=== PATIENT | female | born 1975 | race Caucasian/White ===

== ENCOUNTER 2023-05-24 10:01 | Emergency (ER) | payer OTHER, MEDICAID, SELFPAY ==
[2023-05-24 10:07] VITALS: BP 109/70; PULSE 78; RESP 16; TEMP 36.8; O2SAT 99; BMI 23.3
--- NOTE | 2023-05-24 10:27 | XR_ITS ---
The [address] [address] Patient Name: ZIGGY SANCHEZ MRN: [id number] date: 1975 Sex: F Assigned Patient Location: ER Current Patient Location: Accession/Order Number: [id number] Exam Date: 05/24/2023 10:37 Report Date: 05/24/2023 11:50 At the request of: MIKEY DAVID Procedure: XR foot RT min 3V EXAM: XR foot RT min 3V HISTORY: no trauma, attention hallux COMPARISON: None. TECHNIQUE: AP, oblique and lateral views of the right foot performed. FINDINGS: The bony alignment and mineralization are normal. There is no fracture. There is no osseous destruction or periostitis. The joint spaces are normal. There is no soft tissue abnormality. XR/XR foot RT min 3V IMPRESSION: Unremarkable right foot series. Electronically authenticated by: KAE REAVES Date: 05/24/2023 11:50
--- NOTE | 2023-05-24 10:27 | ED_ITS ---
HPI - General Adult General Chief complaint: Extremity Injury, Lower Stated complaint: LOWER EXTREMITY PAIN RIGHT BIG TOE Time Seen by Provider: 05/24/23 10:24 Source: patient Mode of arrival: walk-in History of Present Illness HPI narrative: 47-year-old female presents to Emergency Department for pain in the right great toe. There has been no trauma. She's been having some issues with this toe and was on a topical antifungal. About two months ago she was on an oral antibiotic. Within the last day or two the pain seems to have gotten worse but there was no injury. The other toes don't hurt and the pain is severe. Related Data Previous Rx's Medication Instructions Recorded acetaminophen 300 mg-codeine 30 mg 1 tab PO Q6H PRN pain #20 tabs 05/24/23 tablet cephalexin 500 mg capsule 500 mg PO QID 10 days #40 caps 05/24/23 Allergies Allergy/AdvReac Type Severity Reaction Status Date / Time aspirin Allergy Severe Verified 05/24/23 10:14 haloperidol [From Haldol] Allergy Severe Verified 05/24/23 10:14 hydroxyzine [From Vistaril] Allergy Severe Verified 05/24/23 10:14 ketorolac [From Toradol] Allergy Severe Verified 05/24/23 10:14 magnesium sulfate Allergy Severe Verified 05/24/23 10:14 naproxen [From Anaprox] Allergy Severe Verified 05/24/23 10:14 Review of Systems ROS Narrative A ten point review of systems is negative except as noted above. Exam Narrative Exam Narrative: Nurses note and vital signs reviewed and patient is not hypoxic. General: The patient appears in no apparent distress. Skin: Warm, dry, no pallor noted. There is no rash noted. Head: Normocephalic, atraumatic Eye: Normal conjunctiva, no drainage Ears, Nose, Mouth, and Throat: oral mucosa is moist. Nares patent. Cardiovascular: Regular Rate and Rhythm Respiratory: Patient is in no distress, no accessory muscle use, lungs are clear to auscultation, no wheezing, rales or rhonchi Back: non-tender GI: nontender Musculoskeletal: the right foot is examined. The hallux has some mild erythema distally but no paronychia present. No felon present. No open areas or drainage. Other toes are nonerythematous and nonswollen. Neurological: A&O, normal speech Psychiatric: Cooperative Constitutional Vital Signs, click to edit/add: Last Vital Signs Temp 98.2 F 05/24/23 10:07 Pulse 78 05/24/23 10:07 Resp 16 05/24/23 10:07 BP 109/70 05/24/23 10:07 Pulse Ox 99 05/24/23 10:07 O2 Del Method Room Air 05/24/23 10:07 Course Vital Signs Vital signs: Vital Signs Temperature 98.2 F 05/24/23 10:07 Pulse Rate 78 05/24/23 10:07 Respiratory Rate 16 05/24/23 10:07 Blood Pressure 109/70 05/24/23 10:07 Pulse Oximetry 99 05/24/23 10:07 Oxygen Delivery Method Room Air 05/24/23 10:07 Temperature 98.2 F 05/24/23 10:07 Pulse Rate 78 05/24/23 10:07 Respiratory Rate 16 05/24/23 10:07 Blood Pressure 109/70 05/24/23 10:07 Pulse Oximetry 99 05/24/23 10:07 Oxygen Delivery Method Room Air 05/24/23 10:07 Medical Decision Making MDM Narrative Medical decision making narrative: x-ray my interpretation shows no acute findings. She provided pain medication and antibiotic. She has a podiatry appointment in two days and she will keep that appointment. Treatment diagnosis and follow-up were discussed with the patient. Differential Diagnosis Differential Diagnosis: felon, paronychia, cellulitis Imaging Data foot: Attestation: I personally reviewed and interpreted this imaging study as follows: (x-ray of the foot on my interpretation shows no acute findings) Discharge Plan Discharge Chief Complaint: Extremity Injury, Lower Clinical Impression: Great toe pain Patient Disposition: Home, Self-Care Time of Disposition Decision: 11:26 Condition: Good Mode of Transportation: Private Vehicle Prescriptions / Home Meds: New acetaminophen-codeine 300-30 mg tablet 1 tab PO Q6H PRN (Reason: pain) Qty: 20 0RF cephalexin 500 mg capsule 500 mg PO QID 10 Days Qty: 40 0RF Instructions: Arthralgia (ED), Swollen Joint (ED) Additional Instructions: see your mortgage loan assistant at your appointment in two days Stand Alone Forms: Portal Instructions Referrals: [facility] [Primary Care Provider] - 1 week
--- OUTSIDE RECORDS SUMMARY | 2023-06-29 19:02 | XMS_ITS | CCD ---
Author Name Unknown Address [address] [place] [address] Organization [facility] Care Team Providers Care Indirect Sales Representative Name Role Phone Cande Hinds Primary Care Physician Bree Jimenes Unavailable Unavailable [facility] Primary Care Provider ZANE Ruiz Attending Pr ovider [facility] Primary Care Provider [phone] ZANE Ruiz Attending Pr ovider ZANE Ruiz Attending Pr ovider [facility] Primary Care Provider MD Salvador Maier Jr Emergency Provider ZANE Ruiz Attending Pr ovider NON STAFF Primary Care Provider Unavailprovidence [facility] Primary Care Provider [phone] MD Salvador Maier Jr Emergency Provider [facility] Primary Care Unavaila sindhu ROSE ., DR RICH Admitting Unavailable ROSE ., DR RICH Attending Unavailable ROSE ., DR RICH Consulting Unavailable [facility] Primary Care Unavailnick ANGELA, DR ADDY Arrington Admitting Unavailable COREEN, DR ADDY Arrington Attending Unavailable ROSALIA ARROYO Consulting Unavailable [facility] Primary Care Unavaila MU Bose Admitting Unavailable MU SHERWOOD Attending Dom BENITEZ, DR MILE Pedersen Consulting Unavailable PAY ., DR ARGUETA Consulting Unavailable MU SHERWOOD Consulting Unavailable LUDIN ANGELES Consulting Unavailable [facility] Primary Care Unavailnick ANGELA, DR ADDY Arrington Admitting Unavailable COREEN, DR ADDY Arrington Attending Unavailable COREEN, DR ADDY Arrington Consulting Unavailable IRENE VENTURA Consulting Unavailable [facility] Care Unavaila ble MARKER ., DR GARCIA Admitting Unavailable MARKER ., DR GARCIA Attending Unavailable MARKER ., DR GARCIA Consulting Unavailable [facility] Care Unavaila ble SHAWNA ., TREVOR Admitting Unavailable SHAWNA ., TREVOR Attending Unavailable SHAWNA ., TREVOR Consulting Unavailable [facility] Care Unavaila ble SHAWNA ., TREVOR Admitting Unavailable SHAWNA ., TREVOR Attending Unavailable AYE ., CARISSA CAMP Consulting UnavailKAE Pelaez Consulting Unavailable Ramiro, ZANE Lerma Attending Pr ovider Adam ERICKSON Attending Unavailable DRE, Adam Arrington Attending Unavailable RUFINA RUIZ Referring Unavailable ANAID TREADWELL Attending Unavailab le Ramiro, ZANE Lerma Attending Pr ovider DAMIAN JOVEL Attending Unavailable Ramiro, Rufina Lerma Attending U navailable Ruiz, Rufina Lerma Admitting U navailable Ruiz, Rufina Lerma Attending U navailable Uriz, Rufina Lerma Admitting U navailable Ruiz, Rufina Lerma Admitting U navailable Ruiz, Rufina Lerma Attending U [facility] Primary [facility] Unavaila ble Salvador Maier Jr Admitting Unavailable Salvador Maier Jr Attending Unavailable Ramiro, Rufina Lerma Admitting U navailable Ruiz, Rufina Lerma Attending U navailable Ruiz, Rufina Lerma Admitting U navailable Ruiz, Rufina Lerma [facility]ending [facility] Primary Care Unavailable Ramiro, Rufina Lerma Admitting U navailable Ruiz, Rufina Lerma [facility]ending [facility] Admitting Unavailable Damian Jovel Attending Unavailable ZANE Ruiz Attending Pr ovider MORGAN Jovel Attending Provider [phone] Allergies Allergy Classification Reported Allergen(s) Allergy Type Date of Onset Reaction(s) Facility (11 sources) Aspirin; Translations: [aspirin] Drug Allergy 12-17-19 21 vomiting, Nausea [facility] (11 sources) Haloperidol; Translations: [haloperidol] Drug Allergy 12-17-19 jaw locked sideways, Anaphylaxis [facility] (11 sources) hydrOXYzine; Translations: [hydroxyzine] Drug Allergy 12-17-19 21 rash, vomiting, [facility] (3 sources) Ketorolac; Translations: [ketorolac] Drug Allergy migraines [facility] (11 sources) Magnesium Sulfate; Translations: [magnesium sulfate] Drug Allergy 12-17-19 21 vomiting [facility] (11 sources) metroNIDAZOLE; Translations: [metronidazole] Drug Allergy 12-17-19 21 vomiting, Hives [facility] (11 sources) Naproxen; Translations: [naproxen] Drug Allergy 12-17-19 21 vomiting, Rash [facility] (3 sources) NSAIDs; Translations: [NSAIDs] Drug allergy vomiting [facility] (3 sources) Sulfamethoxazole / Trimethoprim; Translations: [sulfamethoxazole-tr imethoprim] Drug Allergy vomiting [facility] (9 sources) Sulfamethoxazole; Translations: [sulfamethoxazole] Drug Allergy 12-17-19 21 [facility] (9 sources) Trimethoprim; Translations: [trimethoprim] Drug Allergy 12-17-19 21 [facility] (9 sources) NSAIDS (Non-Steroidal Anti-Inflamma; Translations: [NSAIDS (Non-Steroidal Anti-Inflamma] Allergy to substance 12-17-19 21 [facility] (1 source) Aspirin Drug Allergy 10-08-19 15 [facility] (1 source) Haloperidol Drug Allergy 10-08-19 15 [facility] (1 source) hydrOXYzine Drug Allergy 09-14-19 16 [facility] (1 source) Iothalamate Drug Allergy 09-16-19 16 [facility] (1 source) Ketorolac Drug Allergy 09-14-19 16 [facility] (1 source) Magnesium Sulfate Drug Allergy 10-08-19 15 [facility] (1 source) metroNIDAZOLE Drug Allergy 10-08-19 15 [facility] (1 source) Naproxen Drug Allergy 10-08-19 15 [facility] (1 source) NSAIDs Drug allergy (disorder) 10-08-19 15 [facility] (1 source) Sulfonamides (Antibiotic) Drug allergy (disorder) 10-08-19 15 [facility] (1 source) Aspirin Drug Allergy 07-22-19 [facility] (1 source) Haloperidol Drug Allergy 07-22-19 [facility] (1 source) hydrOXYzine Drug Allergy 07-22-19 [facility] (1 source) Magnesium Sulfate Drug Allergy 07-22-19 [facility] (1 source) metroNIDAZOLE Drug Allergy 07-22-19 [facility] (1 source) Naproxen Drug Allergy 07-22-19 [facility] Medications Current Medications Medication Drug Class(es) Dates Sig (Normalized) Sig (Original) acetaminophen 325 mg / oxyCODONE hydrochloride 5 mg oral tablet (6 sources) Opioid Agonist Start: 07-22-2022 take 1 tablet by mouth every six hours Oxycodone-Acetami nophen (Percocet) 5-325 mg tablet Active 1 - 2 TAB PO Every 6 hours 15 3 July 22, 2022 Start: 05-30-2021 Percocet 325 m g-5 mg Tab See Instructions, as needed for pain, 50 tab(s), Refill(s) 0, 1-2 tab(s) Oral q4hr, [facility], 156, cm, 05/21/21 5:13:00 EST, Height/Length Dosing, 57.1, kg, 05/21/21 5:13:00 EST, Weight Dosing Start Date: 05/30/21 Status: Ordered albuterol 0.83 mg/ml inhalation solution (7 sources) beta2-Adrenergic Agonist Start: 07-22-2022 take 1 mg by inhalation once daily Albuterol Sulfate Active 1 MG INHALATION Daily July 22, 2022 12:00am Start: 05-20-2021 take 2.5 mg by inhal ation twice daily albuterol 0.083% Inh Ana Lilia 3 mL 2.5 mg, 3 mL, NEB, BID, Refill(s) 0, Other (see comment) Start Date: 05/20/21 Status: Ordered Start: 05-20-2021 take 2.5 mg by inhal ation twice daily albuterol 0.083% Inh Ana Lilia 3 mL 2.5 mg, 3 mL, NEB, BID, Refill(s) 0, Other (see comment) Start Date: 05/20/21 Status: Ordered albuterol CFC free 90 mcg/inh inhalation aerosol (1 source) Start: 05-20-2021 take 2 puff(s) by inhalation every four hours albuterol CFC free 90 mcg/inh inhalation aerosol = 2 puff(s), Inhalation, q4hr, Refills(s) 0, COPD Start Date: 05/20/21 Status: Ordered docusate sodium 100 mg oral capsule (1 source) Start: 05-30-2021 take 1 capsule by mouth twice daily as needed for constipation Colace 100 mg Cap 100 mg = 1 cap(s), Oral, BID, PRN for constipation, # 20 cap(s), Refills(s) 0, Pharmacy: [facility]58, 156, cm, 05/21/21 5:13:00 EST, Height/Length Dosing, 57.1, kg, 05/21/21 5:13:00 EST, Weight Dosing Start Date: 05/30/21 Status: Ordered FLUoxetine 40 mg oral capsule (2 sources) Serotonin Reuptake Inhibitor Start: 05-20-2021 take 1 capsule by mouth once daily FLUoxetine 40 mg Cap 40 mg = 1 cap(s), Oral, Daily, Refills(s) 0, Anxiety Start Date: 05/20/21 Status: Ordered fluticasone-salmete rol 250 mcg-50 mcg Inh Pwdr (1 source) Start: 05-20-2021 take 1 dose by inhalation every twelve hours fluticasone-salm eterol 250 mcg-50 mcg Inh Pwdr 1 vial, Inhalation, q12hr, Refill(s) 0, COPD Start Date: 05/20/21 Status: Ordered OLANZapine 10 mg oral tablet (7 sources) Atypical Antipsychotic Start: 05-20-2021 take 10 mg by mouth once daily Olanzapine Active 10 MG PO Daily July 22, 2022 12:00am omeprazole 20 mg delayed release oral capsule (5 sources) Proton Pump Inhibitor Start: 07-22-2022 take 20 mg by mouth once daily Omeprazole Active 20 MG PO Daily July 22, 2022 12:00am ondansetron 4 mg disintegrating oral tablet (5 sources) Serotonin-3 Receptor Antagonist Start: 07-22-2022 take 4 mg by mouth every eight hours Ondansetron Active 4 MG PO Q8H July 22, 2022 12:00am oxyCODONE hydrochloride 5 mg oral capsule (1 source) Opioid Agonist Start: 06-08-2021 oxyCODONE 5 mg Cap 5 mg = 1 cap(s), Oral, q6hr, PRN Pain 8-10, # 4 cap(s), Refills(s) 0, Pharmacy: [facility] 858, 155, cm, 06/08/21 8:15:00 EST, Height/Length Dosing, 60, kg, 06/08/21 8:15:00 EST, Weight Dosing Start Date: 06/08/21 Status: Ordered rOPINIRole 0.5 mg oral tablet (7 sources) Nonergot Dopamine Agonist Start: 07-22-2022 take 0.5 mg by mouth once daily Ropinirole Active 0.5 MG PO Daily July 22, 2022 12:00am Start: 05-20-2021 take 1 tablet by marielena th once daily ropinirole 0.25 mg Tab 0.25 mg = 1 tab(s), Oral, Daily, Refills(s) 0, Other (see comment) Start Date: 05/20/21 Status: Ordered tiZANidine 2 mg oral tablet (5 sources) Central alpha-2 Adrenergic Agonist Start: 07-22-2022 take 2 mg by mouth once daily Tizanidine Active 2 MG PO Daily July 22, 2022 12:00am Vitamin B-12 1000 mcg oral tablet (1 source) Start: 10-27-2022 Vitamin B-12 1 000 mcg oral tablet Refills(s) 0 Start Date: 10/27/22 Status: Ordered Completed/Discontinued Medications Medication Drug Class(es) Dates Sig (Normalized) Sig (Original) ciprofloxacin 500 mg oral tablet (7 sources) Quinolone Antimicrobial Start: 10-27-2022 take 1 tablet by mouth once daily Cipro 500 mg Tab 500 mg = 1 tab(s), Oral, Daily, Take 1 tablet the day before the procedure and 1 tablet after the procedure, # 2 tab(s), Refills(s) 0, Pharmacy: [facility] [id number], 156, cm, 10/27/22 14:36:00 EDT, Height/Length Dosing, 62, kg, 10/27/22 14:36:00... Start Date: 11/27/22 Status: Ordered Start: 07-22-2022 take 250 mg by mouth once daily Ciprofloxacin Hcl Active 250 MG PO Daily July 22, 2022 12:00am Problems Active Problems Problem Classification Problem Date Documented Da te Episodic/Chronic Allergic reactions (4 sources) Allergy, unspecified, initial encounter; Translations: [ALLERGY UNSPECIFIED INITIAL ENCNTR] Onset: 10-04-2022 Episodic Anxiety disorders (12 sources) Anxiety; Translations: [Anxiety disorder, unspecified] Onset: 07-20-2022 12-28-2013 Chronic Asthma (1 source) Unspecified asthma, uncomplicated; Translations: [UNSPECIFIED ASTHMA UNCOMPLICATED] Onset: 11-24-2021 Chronic Calculus of urinary tract (1 source) History of calculus of kidney 10-27-2022 Episodic Chronic obstructive pulmonary disease and bronchiectasis (1 source) Chronic obstructive lung disease 09-30-2022 Chronic Gastritis and duodenitis (1 source) Gastritis, unspecified, without bleeding; Translations: [GASTRITIS UNS WITHOUT BLEEDING] Onset: 07-23-2022 Episodic Headache; including migraine (6 sources) Migraine without aura, not refractory ; Translations: [Migraine, unspecified, not intractable, without status migrainosus] Onset: 11-06-2021 06-22-2015 Chronic Headache; including migraine (2 sources) Headache 05-20-2021 Episodic Mood disorders (5 sources) Depression; Translations: [Bipolar disorder, unspecified] Onset: 10-05-2022 09-22-2013 Chronic Nausea and vomiting (5 sources) Nausea; Translations: [Nausea with vomiting, unspecified] Onset: 06-24-2022 Episodic Nonspecific chest pain (8 sources) Atypical chest pain; Translations: [Other chest pain] 05-29-2019 Episodic Nutritional deficiencies (1 source) Deficiency of other specified B group vitamins; Translations: [Deficiency of other specified B group vitamins] Onset: 03-19-2023 Episodic Other aftercare (1 source) Other fdc (current) drug therapy; Translations: [OTH FPC CURRENT DRUG THERAPY] Onset: 07-23-2022 Episodic Other connective tissue disease (2 sources) Impingement syndrome of shoulder region 05-20-2021 Episodic Other hereditary and degenerative nervous system conditions (1 source) Restless legs syndrome; Translations: [Restless legs syndrome] Onset: 03-19-2023 Chronic Other non-traumatic joint disorders (1 source) Pain of right shoulder joint; Translations: [Pain in right shoulder] Onset: 11-24-2021 Episodic Other non-traumatic joint disorders (8 sources) Chronic pain of right upper limb; Translations: [Pain in right shoulder] 12-16-2020 Episodic Other skin disorders (1 source) Ingrowing nail; Translations: [Ingrowing nail] Onset: 05-26-2023 Episodic Residual codes; unclassified (1 source) Acquired absence of both cervix and uterus; Translations: [ACQUIRED ABSENCE BOTH CERVIX AND UTERUS] Onset: 10-05-2022 Episodic Residual codes; unclassified (1 source) Tobacco use; Translations: [Tobacco use] Onset: 03-19-2023 Episodic Substance-related disorders (3 sources) Smoker; Translations: [Nicotine dependence, cigarettes, uncomplicated] Onset: 06-26-2022 04-23-2014 Chronic Comment on above: Added secondary to d ocumentation in Social History. Unclassified (1 source) CONTACT W/AND (SUSP) EXPOS COVID-19; Translations: [CONTACT W/AND (SUSP) EXPOS COVID-19] Onset: 06-26-2022 Urinary tract infections (2 sources) Acute cystitis; Translations: [Recurrent urinary tract infection] 10-05-2022 Episodic Past or Other Problems Problem Classification Problem Date Documented Da te Episodic/Chronic Abdominal pain (13 sources) Epigastric pain; Translations: [Epigastric pain] Onset: 2 07-22-2022 Episodic Biliary tract disease (1 source) Calculus of bile duct without cholangitis or cholecystitis without obstruction; Translations: [CALC BD NO CHOLANG/CHOLCYST NO OBST] Onset: 2 Episodic Deficiency and other anemia (1 source) Vitamin B12 deficiency anemia, unspecified; Translations: [Vitamin B12 deficiency anemia, unspecified] Onset: 3 Episodic E Codes: Natural/environment (1 source) Overexertion from prolonged static or awkward postures, initial encounter; Translations: [OVEREXERT PROLNG STAT/AWK PST INIT] Onset: 2 Episodic Genitourinary symptoms and ill-defined conditions (2 sources) Hematuria, unspecified; Translations: [Hematuria, unspecified] Onset: 2 Episodic Joint disorders and dislocations; trauma-related (1 source) Unspecified dislocation of right acromioclavicular joint, initial encounter; Translations: [UNS DISLOCATION RT AC JNT INITIAL] Onset: 2 Episodic Other diseases of kidney and ureters (1 source) Cyst of kidney, acquired; Translations: [CYST OF KIDNEY ACQUIRED] Onset: 2 Episodic Other gastrointestinal disorders (1 source) Personal history of other diseases of the digestive system; Translations: [Personal history of other diseases of the digestive system] Onset: 3 Episodic Other non-traumatic joint disorders (3 sources) Pain in right shoulder; Translations: [PAIN IN RIGHT SHOULDER] Onset: 2 Episodic Residual codes; unclassified (1 source) Other specified postprocedural states; Translations: [OTH SPECIFIED POSTPROCEDURAL STATES] Onset: 2 Episodic Skin and subcutaneous tissue infections (4 sources) Cutaneous abscess of right lower limb; Translations: [CUTANEOUS ABSCESS RIGHT LOWER LIMB] Onset: 2 Episodic Viral infection (1 source) Viral infection, unspecified; Translations: [VIRAL INFECTION UNSPECIFIED] Onset: 2 Episodic Results Test Name Value Interpretation Reference Range Facil ity Superficial Wound Cultureon 05-26-2023 Superficial Wound Culture Ingrowing nail Light Normal Skin Kacey 2 Days PERFORMED BY: [place] [id number] PATHOLOGIST PASSENGER RATE CLERK MARINE WARD M.D. Normal [facility] Comment on above: Performed By: #### C USUP #### [address] Alanine aminotransferase [En zymatic activity/volume] in Serum or PlasmaOrdered By: Rufina Ruiz on 03-19-2023 ALT [Catalytic activity/Vol] 7 U/L [facility] Albumin [Mass/volume] in Ser um or Plasma by Bromocresol green (BCG) dye binding methoOrdered By: Rufina Ruiz on 03-19-2023 Albumin BCG dye [Mass/Vol] 4.3 g/dL 3.5-5.7 [facility] Alkaline phosphatase [Enzyma tic activity/volume] in Serum or PlasmaOrdered By: Rufina Ruiz on 03-19-2023 ALP [Catalytic activity/Vol] 100 U/L 34-104 [facility] Aspartate aminotransferase [ Enzymatic activity/volume] in Serum or PlasmaOrdered By: Rufina Ruiz on 03-19-2023 AST [Catalytic activity/Vol] 10 U/L 13-39 [facility] Basophils Auto (Bld) [#/Vol] Ordered By: Rufina Ruiz on 03-19-2023 Basophils (Bld) [#/Vol] 0.0 10*3/uL 0.0-0.2 [facility] Basophils/100 WBC Auto (Bld) Ordered By: Rufina Ruiz on 03-19-2023 Basophils/100 WBC (Bld) 0.4 % . [facility] Bilirubin.total [Mass/volume ] in Serum or PlasmaOrdered By: Rufina Ruiz on 03-19-2023 Bilirubin [Mass/Vol] 0.3 mg/dL 0.3-1.0 [facility] Calcium [Mass/volume] in Ser um or PlasmaOrdered By: Rufina Ruiz on 03-19-2023 Calcium [Mass/Vol] 9.6 mg/dL 8.6-10.3 [facility] Carbon dioxide, total [Moles /volume] in Serum or PlasmaOrdered By: Rufina Ruiz on 03-19-2023 CO2 [Moles/Vol] 29.4 mmol/L 21.0-31.0 [facility] Chloride [Moles/volume] in S siddhartha or PlasmaOrdered By: Rufina Ruiz on 03-19-2023 Chloride [Moles/Vol] 108 mmol/L 98-107 [facility] Cholesterol [Mass/volume] in Serum or PlasmaOrdered By: Rufina Ruiz on 03-19-2023 Cholesterol [Mass/Vol] 164 mg/dL 140-200 [facility] Comment on above: Chol less than 200 m g/dl low riskChol 201-239 mg/dl borderline riskChol 240 mg/dl and greater high risk Cholesterol in LDL Calc [Mas s/Vol]Ordered By: Rufina Ruiz on 03-19-2023 Cholesterol in LDL [Mass/Vol] 84 mg/dL 0-100 [facility] Comment on above: LDL ATP III CLASSIFI CATIONLDL less than 100 mg/dL OptimalLDL 100-129 mg/dL Near or above optimalLDL 130-159 mg/dL Borderline highLDL 160-189 mg/dL HighLDL greater than 189 mg/dL Very high Cholesterol in VLDL Calc [Ma ss/Vol]Ordered By: Rufina Ruiz on 03-19-2023 Cholesterol in VLDL [Mass/Vol] 19 mg/dL [facility] Complete Blood Count Auto Di ffon 03-19-2023 Basophils (Bld) [#/Vol] 0.0 10*3/uL Normal 0.0-0.2 [facility] Comment on above: Order Comment: Reaso n for Exam Bipolar disorder Result Comment: PERF ORMED BY: [place] [address] PATHOLOGIST PASSENGER RATE CLERK MARINE WARD M.D. Performed By: #### C BC, CMP, FE and TIBC, ALOK, LIPID, [id number], THYROID SC #### [facility] [address] [place] [address] Basophils/100 WBC (Bld) 0.4 % Normal . [facility] Comment on above: Order Comment: Reaso n for Exam Bipolar disorder Performed By: #### C BC, CMP, FE and TIBC, ALOK, LIPID, [id number], THYROID SC #### [facility] [address] [place] [address] [place] Eosinophils (Bld) [#/Vol] 0.1 10*3/uL Normal 0.0-0.45 [facility] Comment on above: Order Comment: Reaso n for Exam Bipolar disorder Performed By: #### C BC, CMP, FE and TIBC, ALOK, LIPID, [id number], THYROID SC #### [facility] [address] [place] [address] [place] Eosinophils/100 WBC (Bld) 1.5 % Normal . [facility] Comment on above: Order Comment: Reaso n for Exam Bipolar disorder Performed By: #### C BC, CMP, FE and TIBC, ALOK, LIPID, [id number], THYROID SC #### [address] Erythrocyte distribution wid th (RBC) [Ratio] 13.7 % Normal 11.9-15.3 [facility] Comment on above: Order Comment: Reaso n for Exam Bipolar disorder Performed By: #### C BC, CMP, FE and TIBC, ALOK, LIPID, [id number], THYROID SC #### [address] Hematocrit (Bld) [Volume fraction] 39.9 % Normal 34.0-46.4 [facility] Comment on above: Order Comment: Reaso n for Exam Bipolar disorder Performed By: #### C BC, CMP, FE and TIBC, ALOK, LIPID, [id number], THYROID SC #### [address] Hemoglobin (Bld) [Mass/Vol] 13.3 g/dL Normal 11.8-15. 4 [facility] Comment on above: Order Comment: Reaso n for Exam Bipolar disorder Performed By: #### C BC, CMP, FE and TIBC, ALOK, LIPID, [id number], THYROID SC #### [address] Lymphocytes (Bld) [#/Vol] 2.4 10*3/uL Normal 1.00-4.8 [facility] Comment on above: Order Comment: Reaso n for Exam Bipolar disorder Performed By: #### C BC, CMP, FE and TIBC, ALOK, LIPID, [id number], THYROID SC #### [address] Lymphocytes/100 WBC (Bld) 25.6 % Normal . [facility] Comment on above: Order Comment: Reaso n for Exam Bipolar disorder Performed By: #### C BC, CMP, FE and TIBC, ALOK, LIPID, [id number], THYROID SC #### [address] MCH (RBC) [Entitic mass] 30.3 pg Normal 24.7-34.3 [facility] Comment on above: Order Comment: Reaso n for Exam Bipolar disorder Performed By: #### C BC, CMP, FE and TIBC, ALOK, LIPID, [id number], THYROID SC #### [address] MCV (RBC) [Entitic vol] 91.1 fL Normal 80-100 [facility] Comment on above: Order Comment: Reaso n for Exam Bipolar disorder Performed By: #### C BC, CMP, FE and TIBC, ALOK, LIPID, [id number], THYROID SC #### [address] Mean Corpuscular HGB Conc 33.3 g/dL Normal 32.0-35.0 [facility] Comment on above: Order Comment: Reaso n for Exam Bipolar disorder Performed By: #### C BC, CMP, FE and TIBC, ALOK, LIPID, [id number], THYROID SC #### [address] Monocytes (Bld) [#/Vol] 0.7 10*3/uL Normal 0.0-0.8 [facility] Comment on above: Order Comment: Reaso n for Exam Bipolar disorder Performed By: #### C BC, CMP, FE and TIBC, ALOK, LIPID, [id number], THYROID SC #### [address] Monocytes/100 WBC (Bld) 7.1 % Normal . [facility] Comment on above: Order Comment: Reaso n for Exam Bipolar disorder Performed By: #### C BC, CMP, FE and TIBC, ALOK, LIPID, [id number], THYROID SC #### [address] Neutrophils (Bld) [#/Vol] 6.2 10*3/uL Normal 1.8-7.7 [facility] Comment on above: Order Comment: Reaso n for Exam Bipolar disorder Performed By: #### C BC, CMP, FE and TIBC, ALOK, LIPID, [id number], THYROID SC #### [facility] [address] Neutrophils/100 WBC (Bld) 65.4 % Normal . [facility] Comment on above: Order Comment: Reaso n for Exam Bipolar disorder Performed By: #### C BC, CMP, FE and TIBC, ALOK, LIPID, [id number], THYROID SC #### [facility] [address] NRBC% 0.2 /100{WBC} Normal 0-0.5 [facility] Comment on above: Order Comment: Reaso n for Exam Bipolar disorder Performed By: #### C BC, CMP, FE and TIBC, ALOK, LIPID, [id number], THYROID SC #### [facility] [address] Platelet mean volume (Bld) [Entitic vol] 10.4 fL Normal 6.3-10.7 [facility] Comment on above: Order Comment: Reaso n for Exam Bipolar disorder Performed By: #### C BC, CMP, FE and TIBC, ALOK, LIPID, [id number], THYROID SC #### [facility] [address] [place] [address] [place] Platelets (Bld) [#/Vol] 179 10*3/uL Normal 150-450 [facility] Comment on above: Order Comment: Reaso n for Exam Bipolar disorder Performed By: #### C BC, CMP, FE and TIBC, ALOK, LIPID, [id number], THYROID SC #### [facility] [address] RBC (Bld) [#/Vol] 4.38 10*6/uL Normal 3.60-5.00 [facility] Comment on above: Order Comment: Reaso n for Exam Bipolar disorder Performed By: #### C BC, CMP, FE and TIBC, ALOK, LIPID, [id number], THYROID SC #### [facility] [address] WBC (Bld) [#/Vol] 9.6 10*3/uL Normal 3.8-11.6 [facility] Comment on above: Order Comment: Reaso n for Exam Bipolar disorder Performed By: #### C BC, CMP, FE and TIBC, ALOK, LIPID, [id number], THYROID SC #### [facility] [address] Comprehensive Metabolic Pane louise 03-19-2023 Albumin [Mass/Vol] 4.3 g/dL Normal 3.5-5.7 [facility] Comment on above: Order Comment: Reaso n for Exam Bipolar disorder Reason for Exam Restless leg syndrome Reason for Exam Tobacco use;Bipolar disorder Reason for Exam Vitamin B 12 deficiency Performed By: #### C BC, CMP, FE and TIBC, ALOK, LIPID, [id number], THYROID SC #### [facility] [address] Albumin/Globulin [Mass ratio] 2.0 {ratio} Normal [facility] Comment on above: Order Comment: Reaso n for Exam Bipolar disorder Reason for Exam Restless leg syndrome Reason for Exam Tobacco use;Bipolar disorder Reason for Exam Vitamin B 12 deficiency Performed By: #### C BC, CMP, FE and TIBC, ALOK, LIPID, [id number], THYROID SC #### [facility] [address] ALP [Catalytic activity/Vol] 100 U/L Normal 34-104 [facility] Comment on above: Order Comment: Reaso n for Exam Bipolar disorder Reason for Exam Restless leg syndrome Reason for Exam Tobacco use;Bipolar disorder Reason for Exam Vitamin B 12 deficiency Performed By: #### C BC, CMP, FE and TIBC, ALOK, LIPID, [id number], THYROID SC #### [facility] [address] ALT [Catalytic activity/Vol] 7 U/L Normal 7-52 [facility] Comment on above: Order Comment: Reaso n for Exam Bipolar disorder Reason for Exam Restless leg syndrome Reason for Exam Tobacco use;Bipolar disorder Reason for Exam Vitamin B 12 deficiency Performed By: #### C BC, CMP, FE and TIBC, ALOK, LIPID, [id number], THYROID SC #### [facility] [address] Anion gap [Moles/Vol] 6.2 mmol/L Normal 6.0-15.0 [facility] Comment on above: Order Comment: Reaso n for Exam Bipolar disorder Reason for Exam Restless leg syndrome Reason for Exam Tobacco use;Bipolar disorder Reason for Exam Vitamin B 12 deficiency Performed By: #### C BC, CMP, FE and TIBC, ALOK, LIPID, [id number], THYROID SC #### [facility] [address] AST [Catalytic activity/Vol] 10 U/L Low 13-39 [facility] Comment on above: Order Comment: Reaso n for Exam Bipolar disorder Reason for Exam Restless leg syndrome Reason for Exam Tobacco use;Bipolar disorder Reason for Exam Vitamin B 12 deficiency Performed By: #### C BC, CMP, FE and TIBC, ALOK, LIPID, [id number], THYROID SC #### [facility] [address] Bilirubin [Mass/Vol] 0.3 mg/dL Normal 0.3-1.0 [facility] Comment on above: Order Comment: Reaso n for Exam Bipolar disorder Reason for Exam Restless leg syndrome Reason for Exam Tobacco use;Bipolar disorder Reason for Exam Vitamin B 12 deficiency Performed By: #### C BC, CMP, FE and TIBC, ALOK, LIPID, [id number], THYROID SC #### [facility] [address] Calcium [Mass/Vol] 9.6 mg/dL Normal 8.6-10.3 [facility] Comment on above: Order Comment: Reaso n for Exam Bipolar disorder Reason for Exam Restless leg syndrome Reason for Exam Tobacco use;Bipolar disorder Reason for Exam Vitamin B 12 deficiency Performed By: #### C BC, CMP, FE and TIBC, ALOK, LIPID, [id number], THYROID SC #### [facility] [address] [place] [id number] [facility] Chloride [Moles/Vol] 108 mmol/L High 98-107 [facility] Comment on above: Order Comment: Reaso n for Exam Bipolar disorder Reason for Exam Restless leg syndrome Reason for Exam Tobacco use;Bipolar disorder Reason for Exam Vitamin B 12 deficiency Performed By: #### C BC, CMP, FE and TIBC, ALOK, LIPID, [id number], THYROID SC #### [facility] [address] [place] [id number] [facility] CO2 [Moles/Vol] 29.4 mmol/L Normal 21.0-31.0 [facility] Comment on above: Order Comment: Reaso n for Exam Bipolar disorder Reason for Exam Restless leg syndrome Reason for Exam Tobacco use;Bipolar disorder Reason for Exam Vitamin B 12 deficiency Performed By: #### C BC, CMP, FE and TIBC, ALOK, LIPID, [id number], THYROID SC #### [facility] [address] Creatinine [Mass/Vol] 0.74 mg/dL Normal 0.60-1.20 [facility] Comment on above: Order Comment: Reaso n for Exam Bipolar disorder Reason for Exam Restless leg syndrome Reason for Exam Tobacco use;Bipolar disorder Reason for Exam Vitamin B 12 deficiency Performed By: #### C BC, CMP, FE and TIBC, ALOK, LIPID, [id number], THYROID SC #### [facility] [address] GFR/1.73 sq M.predicted MDRD (S/P/Bld) [Vol rate/Area] mL/min/{1.73_m2} Normal [facility] Comment on above: Order Comment: Reaso n for Exam Bipolar disorder Reason for Exam Restless leg syndrome Reason for Exam Tobacco use;Bipolar disorder Reason for Exam Vitamin B 12 deficiency Performed By: #### C BC, CMP, FE and TIBC, ALOK, LIPID, [id number], THYROID SC #### [facility] [address] [place] [id number] [facility] Globulin (S) [Mass/Vol] 2.1 g/dL Normal [facility] Comment on above: Order Comment: Reaso n for Exam Bipolar disorder Reason for Exam Restless leg syndrome Reason for Exam Tobacco use;Bipolar disorder Reason for Exam Vitamin B 12 deficiency Performed By: #### C BC, CMP, FE and TIBC, ALOK, LIPID, [id number], THYROID SC #### [facility] [address] [place] [id number] [facility] Glucose [Mass/Vol] 94 mg/dL Normal 70-100 [facility] Comment on above: Order Comment: Reaso n for Exam Bipolar disorder Reason for Exam Restless leg syndrome Reason for Exam Tobacco use;Bipolar disorder Reason for Exam Vitamin B 12 deficiency Result Comment: [facility] Glucose Reference Range is dependent on time and content of last meal. Glucose of more than 200 mg/dL in a nonstressed, ambulatory subject supports the diagnosis of Diabetes Mellitus. ADA recommended reference range Performed By: #### C BC, CMP, FE and TIBC, ALOK, LIPID, [id number], THYROID SC #### [facility] [address] Potassium [Moles/Vol] 4.6 mmol/L Normal 3.5-5.1 [facility] Comment on above: Order Comment: Reaso n for Exam Bipolar disorder Reason for Exam Restless leg syndrome Reason for Exam Tobacco use;Bipolar disorder Reason for Exam Vitamin B 12 deficiency Performed By: #### C BC, CMP, FE and TIBC, ALOK, LIPID, [id number], THYROID SC #### [facility] [address] Protein [Mass/Vol] 6.4 g/dL Normal 6.4-8.9 [facility] Comment on above: Order Comment: Reaso n for Exam Bipolar disorder Reason for Exam Restless leg syndrome Reason for Exam Tobacco use;Bipolar disorder Reason for Exam Vitamin B 12 deficiency Performed By: #### C BC, CMP, FE and TIBC, ALOK, LIPID, [id number], THYROID SC #### [facility] [address] [place] [phone] [facility] Sodium [Moles/Vol] 139 mmol/L Normal 136-145 [facility] Comment on above: Order Comment: Reaso n for Exam Bipolar disorder Reason for Exam Restless leg syndrome Reason for Exam Tobacco use;Bipolar disorder Reason for Exam Vitamin B 12 deficiency Performed By: #### C BC, CMP, FE and TIBC, ALOK, LIPID, [id number], THYROID SC #### [facility] [address] Urea nitrogen [Mass/Vol] 7 mg/dL Normal 7-25 [facility] Comment on above: Order Comment: Reaso n for Exam Bipolar disorder Reason for Exam Restless leg syndrome Reason for Exam Tobacco use;Bipolar disorder Reason for Exam Vitamin B 12 deficiency Performed By: #### C BC, CMP, FE and TIBC, ALOK, LIPID, [id number], THYROID SC #### [facility] [address] Creatinine [Mass/volume] in Serum or PlasmaOrdered By: Rufina Ruiz on 03-19-2023 Creatinine [Mass/Vol] 0.74 mg/dL 0.60-1.20 [facility] Eosinophils Auto (Bld) [#/Vo l]Ordered By: Rufina Ruiz on 03-19-2023 Eosinophils (Bld) [#/Vol] 0.1 10*3/uL 0.0-0.45 [facility] Eosinophils/100 WBC Auto (Bl d)Ordered By: Rufina Ruiz on 03-19-2023 Eosinophils/100 WBC (Bld) 1.5 % . [facility] Erythrocyte distribution wid th Auto (RBC) [Ratio]Ordered By: Rufina Ruiz on 03-19-2023 Erythrocyte distribution wid th (RBC) [Ratio] 13.7 % 11.9-15.3 [facility] Ferritinon 03-19-2023 Ferritin [Mass/Vol] 58.3 ng/mL Normal 11.0-306.8 [facility] Comment on above: Order Comment: Reaso n for Exam Bipolar disorder Reason for Exam Restless leg syndrome Reason for Exam Tobacco use;Bipolar disorder Reason for Exam Vitamin B 12 deficiency Performed By: #### C BC, CMP, FE and TIBC, ALOK, LIPID, [id number], THYROID SC #### [facility] [address] [place] [address] [place] Ferritin [Mass/volume] in Se rum or PlasmaOrdered By: Rufina Ruiz on 03-19-2023 Ferritin [Mass/Vol] 58.3 ng/mL 11.0-306.8 [facility] Folate [Mass/volume] in Seru m or PlasmaOrdered By: Rufina Ruiz on 03-19-2023 Folate [Mass/Vol] 5.7 ng/mL >5.9 [facility] Comment on above: Folate reference ran ge: >5.9 ng/mlThe WHO technical consultation on folate and vitamin [id number] has determined that folate concentrations lessthan 4 ng/ml are considered deficient. Globulin Calc (S) [Mass/Vol] Ordered By: Rufina Ruiz on 03-19-2023 Globulin (S) [Mass/Vol] 2.1 g/dL [facility] Glucose [Mass/volume] in Ser um or PlasmaOrdered By: Rufina Ruiz on 03-19-2023 Glucose [Mass/Vol] 94 mg/dL 70-100 [facility] Comment on above: ADA recommended refe rence rangeRandom Glucose Reference Range is dependent on time and content of last meal. Glucose of more than 200 mg/dL in a nonstressed, ambulatory subject supports the diagnosis of Diabetes Mellitus. Hematocrit Auto (Bld) [Volum e fraction]Ordered By: Rufina Ruiz on 03-19-2023 Hematocrit (Bld) [Volume fraction] 39.9 % 3 4.0-46.4 [facility] Hemoglobin [Mass/volume] in BloodOrdered By: Rufina Ruiz on 03-19-2023 Hemoglobin (Bld) [Mass/Vol] 13.3 g/dL 11.8-15. 4 [facility] Iron [Mass/volume] in Serum or PlasmaOrdered By: Rufina Ruiz on 03-19-2023 Iron [Mass/Vol] 68 ug/dL 50-212 [facility] Iron and TIBC Profileon % Iron Saturation 22.3 % Normal 20-50 [facility] Comment on above: Order Comment: Reaso n for Exam Bipolar disorder Reason for Exam Restless leg syndrome Reason for Exam Tobacco use;Bipolar disorder Reason for Exam Vitamin B 12 deficiency Performed By: #### C BC, CMP, FE and TIBC, ALOK, LIPID, [id number], THYROID SC #### [facility] [address] Iron [Mass/Vol] 68 ug/dL Normal 50-212 [facility] Comment on above: Order Comment: Reaso n for Exam Bipolar disorder Reason for Exam Restless leg syndrome Reason for Exam Tobacco use;Bipolar disorder Reason for Exam Vitamin B 12 deficiency Performed By: #### C BC, CMP, FE and TIBC, ALOK, LIPID, [id number], THYROID SC #### [facility] [address] Total Iron Binding Capacity 305 ug/dL Normal 255-450 [facility] Comment on above: Order Comment: Reaso n for Exam Bipolar disorder Reason for Exam Restless leg syndrome Reason for Exam Tobacco use;Bipolar disorder Reason for Exam Vitamin B 12 deficiency Performed By: #### C BC, CMP, FE and TIBC, ALOK, LIPID, [id number], THYROID SC #### [facility] [address] Transferrin [Mass/Vol] 218 mg/dL Normal 203-362 [facility] Comment on above: Order Comment: Reaso n for Exam Bipolar disorder Reason for Exam Restless leg syndrome Reason for Exam Tobacco use;Bipolar disorder Reason for Exam Vitamin B 12 deficiency Performed By: #### C BC, CMP, FE and TIBC, ALOK, LIPID, [id number], THYROID SC #### [facility] [address] Iron binding capacity [Mass/ volume] in Serum or PlasmaOrdered By: Rufina Ruiz on 03-19-2023 Iron binding capacity [Mass/Vol] 305 ug/dL 255 -450 [facility] Iron saturation [Mass Fracti on] in Serum or PlasmaOrdered By: Rufina Ruiz on 03-19-2023 Iron saturation [Mass fraction] 22.3 % 20-5 0 [facility] Leukocytes [#/volume] correc zakia for nucleated erythrocytes in Blood by Automated counOrdered By: Rufina Ruiz on 03-19-2023 WBC corrected for nucl RBC A uto (Bld) [#/Vol] 9.6 10*3/uL 3.8-11.6 [facility] Lipid Panelon 03-19-2023 Cholesterol [Mass/Vol] 164 mg/dL Normal 140-200 [facility] Comment on above: Order Comment: Reaso n for Exam Bipolar disorder Reason for Exam Restless leg syndrome Reason for Exam Tobacco use;Bipolar disorder Reason for Exam Vitamin B 12 deficiency Result Comment: Chol less than 200 mg/dl low risk Chol 201-239 mg/dl borderline risk Chol 240 mg/dl and greater high risk Performed By: #### C BC, CMP, FE and TIBC, ALOK, LIPID, [id number], THYROID SC #### [facility] [address] Cholesterol in HDL [Mass/Vol] 60 mg/dL Normal 23-92 [facility] Comment on above: Order Comment: Reaso n for Exam Bipolar disorder Reason for Exam Restless leg syndrome Reason for Exam Tobacco use;Bipolar disorder Reason for Exam Vitamin B 12 deficiency Result Comment: HDL CHOL ATP-III CLASSIFICATION Cardiovascular Risk HDL > or equal to 60 mg/dL LOW HDL < 40 mg/dL HIGH Performed By: #### C BC, CMP, FE and TIBC, ALOK, LIPID, [id number], THYROID SC #### [facility] [address] [place] [id number] [facility] Cholesterol.total/Cholestero l in HDL [Mass ratio] 2.7 {ratio} Normal <5.0 [facility] Comment on above: Order Comment: Reaso n for Exam Bipolar disorder Reason for Exam Restless leg syndrome Reason for Exam Tobacco use;Bipolar disorder Reason for Exam Vitamin B 12 deficiency Performed By: #### C BC, CMP, FE and TIBC, ALOK, LIPID, [id number], THYROID SC #### [facility] [address] [place] [id number] [place] LDL Cholesterol,Calculated 84 mg/dL Normal 0-100 [facility] Comment on above: Order Comment: Reaso n for Exam Bipolar disorder Reason for Exam Restless leg syndrome Reason for Exam Tobacco use;Bipolar disorder Reason for Exam Vitamin B 12 deficiency Result Comment: LDL ATP III CLASSIFICATION LDL less than 100 mg/dL Optimal LDL 100-129 mg/dL Near or above optimal LDL 130-159 mg/dL Borderline high LDL 160-189 mg/dL High LDL greater than 189 mg/dL Very high Performed By: #### C BC, CMP, FE and TIBC, ALOK, LIPID, [id number], THYROID SC #### [facility] [address] Triglyceride w/Reflex 99 mg/dL Normal 0-149 [facility] Comment on above: Order Comment: Reaso n for Exam Bipolar disorder Reason for Exam Restless leg syndrome Reason for Exam Tobacco use;Bipolar disorder Reason for Exam Vitamin B 12 deficiency Result Comment: TRIG ATP III CLASSIFICATION TRIG less than 150 mg/dL Normal TRIG 150-199 mg/dL Borderline high TRIG 200-500 mg/dL High TRIG greater than 500 mg/dL Very high Standard traceable to the Center for Disease Conrtrol and Prevention (CDC) test method. Performed By: #### C BC, CMP, FE and TIBC, ALOK, LIPID, [id number], THYROID SC #### [facility] [address] VLDL CHOLESTEROL 19 mg/dL Normal [facility] Comment on above: Order Comment: Reaso n for Exam Bipolar disorder Reason for Exam Restless leg syndrome Reason for Exam Tobacco use;Bipolar disorder Reason for Exam Vitamin B 12 deficiency Performed By: #### C BC, CMP, FE and TIBC, ALOK, LIPID, [id number], THYROID SC #### [facility] [address] Lymphocytes Auto (Bld) [#/Vo l]Ordered By: Rufina Ruiz on 03-19-2023 Lymphocytes (Bld) [#/Vol] 2.4 10*3/uL 1.00-4.8 [facility] Lymphocytes/100 WBC Auto (Bl d)Ordered By: Rufina Ruiz on 03-19-2023 Lymphocytes/100 WBC (Bld) 25.6 % . [facility] MCH Auto (RBC) [Entitic mass ]Ordered By: Rufina Ruiz on 03-19-2023 MCH (RBC) [Entitic mass] 30.3 pg 24.7-34.3 [facility] MCHC Auto (RBC) [Mass/Vol]Or dered By: Rufina Ruiz on 03-19-2023 MCHC (RBC) [Mass/Vol] 33.3 g/dL 32.0-35.0 [facility] MCV Auto (RBC) [Entitic vol] Ordered By: Rufina Ruiz on 03-19-2023 MCV (RBC) [Entitic vol] 91.1 fL 80-100 [facility] Monocytes Auto (Bld) [#/Vol] Ordered By: Rufina Ruiz on 03-19-2023 Monocytes (Bld) [#/Vol] 0.7 10*3/uL 0.0-0.8 [facility] Monocytes/100 WBC Auto (Bld) Ordered By: Rufina Ruiz on 03-19-2023 Monocytes/100 WBC (Bld) 7.1 % . [facility] Neutrophils Auto (Bld) [#/Vo l]Ordered By: Rufina Ruiz on 03-19-2023 Neutrophils (Bld) [#/Vol] 6.2 10*3/uL 1.8-7.7 [facility] Neutrophils/100 WBC Auto (Bl d)Ordered By: Rufina Ruiz on 03-19-2023 Neutrophils/100 WBC (Bld) 65.4 % . [facility] No Panel InformationOrdered By: Rufina Ruiz on 03-19-2023 Estimated GFR (CKD-EPI) > 60.0 mL/Min [facility] Creatinine Clearanc e (Chem N/A [facility] Nucleated erythrocytes [Pres ence] in Blood by Automated countOrdered By: Rufina Ruiz on 03-19-2023 Nucleated RBC Auto Ql (Bld) 0.2 /100{WBC} 0-0.5 [facility] Platelet mean volume Auto (B ld) [Entitic vol]Ordered By: Rufina Ruiz on 03-19-2023 Platelet mean volume (Bld) [Entitic vol] 10.4 fL 6.3-10.7 [facility] Platelets Auto (Bld) [#/Vol] Ordered By: Rufina Ruiz on 03-19-2023 Platelets (Bld) [#/Vol] 179 10*3/uL 150-450 [facility] Potassium [Moles/volume] in Serum or PlasmaOrdered By: Rufina Ruiz on 03-19-2023 Potassium [Moles/Vol] 4.6 mmol/L 3.5-5.1 [facility] Protein [Mass/volume] in Ser um or PlasmaOrdered By: Rufina Ruiz on 03-19-2023 Protein [Mass/Vol] 6.4 g/dL 6.4-8.9 [facility] RBC Auto (Bld) [#/Vol]Ordere d By: Rufina Ruiz on 03-19-2023 RBC (Bld) [#/Vol] 4.38 10*6/uL 3.60-5.00 [facility] Serum or plasma albumin/glob ulin mass ratioOrdered By: Rufina Ruiz on 03-19-2023 Albumin/Globulin [Mass ratio] 2.0 {ratio} [facility] Serum or plasma anion gap de terminationOrdered By: Rufina Ruiz on 03-19-2023 Anion gap [Moles/Vol] 6.2 mmol/L 6.0-15.0 [facility] Serum or plasma high density lipoprotein (HDL) cholesterol measurementOrdered By: Rufina Ruiz on 03-19-2023 Cholesterol in HDL [Mass/Vol] 60 mg/dL 23-92 [facility] Comment on above: HDL CHOL ATP-III CLA SSIFICATION Cardiovascular RiskHDL > or equal to 60 mg/dL LOWHDL < 40 mg/dL HIGH Serum or plasma total choles terol/high density lipoprotein (HDL) cholesterol mass ratOrdered By: Rufina Ruiz on 03-19-2023 Cholesterol.total/Cholestero l in HDL [Mass ratio] 2.7 {ratio} <5.0 [facility] Sodium [Moles/volume] in Ser um or PlasmaOrdered By: Rufina Ruiz on 03-19-2023 Sodium [Moles/Vol] 139 mmol/L 136-145 [facility] THYROID SCREENon 03-19-2023 Free T4 [Mass/Vol] 0.70 ng/dL Normal 0.61-1.12 [facility] Comment on above: Order Comment: Reaso n for Exam Bipolar disorder Reason for Exam Restless leg syndrome Reason for Exam Tobacco use;Bipolar disorder Reason for Exam Vitamin B 12 deficiency Performed By: #### C BC, CMP, FE and TIBC, ALOK, LIPID, [id number], THYROID SC #### [facility] [address] TSH Qn 1.95 m[IU]/L Normal 0.45-5.33 [facility] Comment on above: Order Comment: Reaso n for Exam Bipolar disorder Reason for Exam Restless leg syndrome Reason for Exam Tobacco use;Bipolar disorder Reason for Exam Vitamin B 12 deficiency Result Comment: PERF ORMED BY: [place] [address] PATHOLOGIST [employer]EN[employer] CLERK MARINE WARD M.D. Performed By: #### C BC, CMP, FE and TIBC, ALOK, LIPID, [id number], THYROID SC #### [facility] [address] Thyrotropin [Units/volume] i n Serum or PlasmaOrdered By: Rufina Ruiz on 03-19-2023 TSH Qn 1.95 m[IU]/L 0.45-5.33 [facility] Thyroxine (T4) free [Mass/vo lume] in Serum or PlasmaOrdered By: Rufina Ruiz on 03-19-2023 Free T4 [Mass/Vol] 0.70 ng/dL 0.61-1.12 [facility] Transferrin [Mass/volume] in Serum or PlasmaOrdered By: Rufina Ruiz on 03-19-2023 Transferrin [Mass/Vol] 218 mg/dL 203-362 [facility] Triglyceride [Mass/volume] i n Serum or PlasmaOrdered By: Rufina Ruiz on 03-19-2023 Triglyceride [Mass/Vol] 99 mg/dL 0-149 [facility] Comment on above: TRIG ATP III CLASSIF ICATIONTRIG less than 150 mg/dL NormalTRIG 150-199 mg/dL Borderline highTRIG 200-500 mg/dL High TRIG greater than 500 mg/dL Very highStandard traceable to the Center for Disease Conrtrol and Prevention (CDC) test method. Urea nitrogen [Mass/volume] in Serum or PlasmaOrdered By: Rufina Ruiz on 03-19-2023 Urea nitrogen [Mass/Vol] 7 mg/dL 7 [facility] Vit. B12/Folate Profileon Cobalamin (Vitamin B12) [Mass/Vol] 641 pg/mL Normal 180-914 [facility] Comment on above: Order Comment: Reaso n for Exam Bipolar disorder Reason for Exam Restless leg syndrome Reason for Exam Tobacco use;Bipolar disorder Reason for Exam Vitamin B 12 deficiency Performed By: #### C BC, CMP, FE and TIBC, ALOK, LIPID, [id number], THYROID SC #### [facility] [address] [place] [id number] [facility] Folate 5.7 ng/mL Low >5.9 [facility] Comment on above: Order Comment: Reaso n for Exam Bipolar disorder Reason for Exam Restless leg syndrome Reason for Exam Tobacco use;Bipolar disorder Reason for Exam Vitamin B 12 deficiency Result Comment: Senait te reference range: >5.9 ng/ml The WHO technical consultation on folate and vitamin b12 deficiencies has determined that folate concentrations less than 4 ng/ml are considered deficient. Performed By: #### C BC, CMP, FE and TIBC, ALOK, LIPID, [id number], THYROID SC #### [facility] [address] [place] [id number] [facility] Vitamin B12 ser/plasOrdered By: Rufina Ruiz on 03-19-2023 Cobalamin (Vitamin B12) [Mass/Vol] 641 pg/mL 180-914 [facility] WBC Auto (Bld) [#/Vol]Ordere d By: Rufina Ruiz on 03-19-2023 WBC (Bld) [#/Vol] 9.6 10*3/uL 3.8-11.6 [facility] Vitamin B12on 11-16-2022 Cobalamin (Vitamin B12) [Mass/Vol] 363 pg/mL Normal 180-914 [facility] Comment on above: Order Comment: Reaso n for Exam B12 deficiency Result Comment: PERF ORMED BY: [place] [address] PATHOLOGIST PASSENGER RATE CLERK MARINE WARD M.D. Performed By: #### C USUP #### [address] Vitamin B12 ser/plasOrdered By: Rufina Ruiz on 11-16-2022 Cobalamin (Vitamin B12) [Mass/Vol] 363 pg/mL 180-914 [facility] Lab Reportson 11-04-2022 Lab Reports [id number]#1.00C D:127 Normal [facility] Lab Reports [id number]#1.00C D:127 Normal [facility] Lab Reports [id number]#1.00C D:127 Normal [facility] Lab Reports [id number] D:127 Normal [facility] Lab Reports [id number] D:127 Normal [facility] RAD - CT Reporton 11-04-2022 RAD - CT Report [id number]:127 Normal [facility] Physician Referralon 023 Physician Referral [id number]:127 Normal [facility] Patient Educationon 10-06-19 23 Patient Education Obstetrics and Gynec ology Urinary Tract Infection, Adult A urinary tract infection (UTI) is an infection of any part of the urinary tract. The urinary tract includes the kidneys, ureters, bladder, and urethra. These organs make, store, and get rid of urine in the body. Your health care provider may use other names to describe the infection. An upper UTI affects the ureters and kidneys (pyelonephritis). A lower UTI affects the bladder (cystitis) and urethra (urethritis). What are the causes? Most urinary tract infections are caused by bacteria in your genital area, around the entrance to your urinary tract (urethra). These bacteria grow and cause inflammation of your urinary tract. What increases the risk? You are more likely to develop this condition if: ? You have a urinary catheter that stays in place (indwelling). ? You are not able to control when you urinate or have a bowel movement (you have incontinence). ? You are female and you: ? Use a spermicide or diaphragm for control. ? Have low estrogen levels. ? Are . ? You have certain genes that increase your risk (genetics). ? You are sexually active. ? You take antibiotic medicines. ? You have a condition that causes your flow of urine to slow down, such as: ? An enlarged prostate, if you are male. ? Blockage in your urethra (stricture). ? A kidney stone. ? A nerve condition that affects your bladder control (neurogenic bladder). ? Not getting enough to drink, or not urinating often. ? You have certain medical conditions, such as: ? Diabetes. ? A weak disease-fighting system (immunesystem). ? Sickle cell disease. ? Gout. ? Spinal cord injury. What are the signs or symptoms? Symptoms of this condition include: ? Needing to urinate right away (urgently). ? Frequent urination or passing small amounts of urine frequently. ? Pain or burning with urination. ? Blood in the urine. ? Urine that smells bad or unusual. ? Trouble urinating. ? Cloudy urine. ? Vaginal discharge, if you are female. ? Pain in the abdomen or the lower back. You may also have: ? Vomiting or a decreased appetite. ? Confusion. ? Irritability or tiredness. ? A fever. ? Diarrhea. The first symptom in older adults may be confusion. In some cases, they may not have any symptoms until the infection has worsened. How is this diagnosed? This condition is diagnosed based on your medical history and a physical exam. You may also have other tests, including: ? Urine tests. ? Blood tests. ? Tests for sexually transmitted infections (STIs). If you have had more than one UTI, a cystoscopy or imaging studies may be done to determine the cause of the infections. How is this treated? Treatment for this condition includes: ? Antibiotic medicine. ? Qupr-jzq-haszgev medicines to treat discomfort. ? Drinking enough water to stay hydrated. If you have frequent infections or have other conditions such as a kidney stone, you may need to see a health care provider who specializes in the urinary tract (urologist). In rare cases, urinary tract infections can cause sepsis. Sepsis is a life-threatening condition that occurs when the body responds to an infection. Sepsis is treated in the hospital with IV antibiotics, fluids, and other medicines. Follow these instructions at home: Medicines ? Take lail-fyn-hlylzds and prescription medicines only as told by your health care provider. ? If you were prescribed an antibiotic medicine, take it as told by your health care provider. Do not stop using the antibiotic even if you start to feel better. General instructions ? Make sure you: ? Empty your bladder often and completely. Do not hold urine for long periods of time. ? Empty your bladder after sex. ? Wipe from front to back after a bowel movement if you are female. Use each tissue one time when you wipe. ? Drink enough fluid to keep your urine pale yellow. ? Keep all follow-up visits as told by your health care provider. This is important. Contact a health care provider if: ? Your symptoms do not get better after 1?2 days. ? Your symptoms go away and then return. Get help right away if you have: ? Severe pain in your back or your lower abdomen. ? A fever. ? Nausea or vomiting. Summary ? A urinary tract infection (UTI) is an infection of any part of the urinary tract, which includes the kidneys, ureters, bladder, and urethra. ? Most urinary tract infections are caused by bacteria in your genital area, around the entrance to your urinary tract (urethra). ? Treatment for this condition often includes antibiotic medicines. ? If you were prescribed an antibiotic medicine, take it as told by your health care provider. Do not stop using the antibiotic even if you start to feel better. ? Keep all follow-up visits as told by your health care provider. This is important. This in (more content not included)... Normal [facility] Vitamin B12on 09-21-2022 Cobalamin (Vitamin B12) [Mass/Vol] 548 pg/mL Normal 180-914 [facility] Comment on above: Order Comment: Name Collection Type:: Clean-Voided Midstream Result Comment: PERF ORMED BY: [facility] [address] [place] [address] PATHOLOGIST PASSENGER RATE CLERK MARINE WARD M.D. Performed By: #### U A #### [address] Vitamin B12 ser/plasOrdered By: Rufina Ruiz on 09-21-2022 Cobalamin (Vitamin B12) [Mass/Vol] 548 pg/mL 180-914 [facility] Urine Cultureon 08-31-2022 Bacteria identified Cx Nom (U) Reason for Exam Hematuria, unspecified type Urine ORGANISM: Escherichia coli (O:ESCCOL) [place] Count >100,000 Aerobic [place] Charge (NMIC56) SUSCEPTIBILITY ORGANISM: O:ESCCOL ANTIBIOTIC INTERPRETATION [place] Amikacin S <16 Amoxacillin/K Clavulanate I 1616/8 Ampicillin R >16 Ampicillin/Sulbactam R >16 Aztreonam S <4 Cefazolin I 16 Cefepime S <2 Ceftazidime S <1 Ceftazidime/Avibactam S <4 Ceftolozane/Tazobactam S <2 Ceftriaxone S <1 Cefuroxime S <4 Ciprofloxacin S <0.25 Ertapenem S <0.5 Gentamicin S <2 Levofloxacin S <0.5 Meropenem S <1 Meropenem/Vaborbactam S <2 Nitrofurantoin S <32 Piperacillin/Tazobactam S <8 Tetracycline S <4 Tigecycline S <2 Tobramycin S <2 Trimethoprim/Sulfamethoxazole S <0.5 S = SUSCEPTIBLE I = INTERMEDIATE R = RESISTANT BLANK = DATA NOT AVAILABLE, OR DRUG NOT ADVISABLE OR TESTED R* = RESISTANCE DUE TO EXTENDED SPECTRUM BETA-LACTAMASES ESBL = EXTENDED SPECTRUM BETA-LACTAMASE TFG = THYMIDINE-DEPENDENT STRAIN WES = BETA-LACTAMASE POSITIVE IB = INDUCIBLE BETA-LACTAMASE. APPEARS IN PLACE OF 'S' WITH SPECIES KNOWN TO POSSESS INDUCIBLE BETA-LACTAMASES. POTENTIALLY THEY MAY BECOME RESISTANT TO ALL B-LACTAM DRUGS. PERFORMED BY: [place] [address] PATHOLOGIST PASSENGER RATE CLERK MARINE WARD M.D. Normal [facility] Comment on above: Performed By: #### U A #### [address] Urine culture routineOrdered By: Rufina Ruiz on 08-31-2022 Bacteria identified Cx Nom (U) Escherichia coli [facility] CT abdomen pelvis w conon CT abdomen pelvis w con [facility] [place] [address] [place] [address] CT Scan Report Signed Patient: Ziggy Joy MR#: [id number] : 1975 Acct:[id number] Age/Sex: 46 / F ADM Date: 07/22/22 Loc: ER Room: Type: [facility] ER Attending Dr: Copies to: Salvador Maier Jr, MD Ordering Provider: Salvador Maier Jr, MD Date of Service: 07/22/22 CT/CT abdomen pelvis w con: epig/ruq pain, elev lipase CT ABDOMEN AND PELVIS WITH CONTRAST COMPARISON: 06/12/2015 CLINICAL DATA: Right upper quadrant and epigastric pain. Spiral images were obtained through the abdomen and pelvis following 90 mL of Isovue 300. This CT exam was performed using one or more following dose reduction techniques: Automated exposure control, adjustment of the mA and/or kV according to patient size, or use of iterative reconstruction technique. Limited cuts through the lung bases show minor dependent atelectasis on the left. Now into hepatic masses are noted. No calcified gallstones are identified. The spleen, pancreas and adrenal glands show no acute findings. There are symmetric bilateral renal nephrograms, without hydronephrosis. There is an incidental lower pole right renal cyst. There is minor atherosclerotic plaque at the aorta. No enlarged lymph nodes or ascites are seen. There is no dilated small bowel however there are some loops containing fluid.. There is some fluid within the ascending and transverse colon. The left colon is underdistended. There is a normal appendix. The bony structures are intact. Images through the pelvis show nondistended small bowel loops, some of which contain fluid. There is a small amount of air at the distal colon. There is no prominent stool. No diverticular disease is visualized. The uterus is surgically absent. The urinary bladder shows no abnormalities for the degree of distention. There is no ascites. CT/CT abdomen pelvis w con IMPRESSION: Right renal cyst. No bowel or urinary tract obstruction. No acute findings. Impression dictated by: Dara Hardy M.D.07/23/2022 7:53 AM Dictation Location: BrightContext-Datumate-12 Transcribed By: JORGE 07/23/22 0753 Dictated By: aDra Hardy MD 07/23/22 0721 Signed By: 07/23/22 075 [facility] US gall bladderon 07-23-2022 US gall bladder [facility] [place] [address] Ultrasound Report Signed Patient: Ziggy Joy MR#: [id number] : 1975 Acct:[id number] Age/Sex: 46 / F ADM Date: 07/22/22 Loc: ER Room: Type: [facility] ER Attending Dr: Ordering Provider: Salvador Maier Jr, MD Date of Service: 07/22/22 US/US gall bladder: upper abd/RUQ pain, colicky, concern GB Copies to: Salvador Maier Jr, MD LIMITED ABDOMINAL ULTRASOUND - GALLBLADDER CLINICAL HISTORY: Right upper quadrant and epigastric pain COMPARISON: CT 06/12/2015 The gallbladder is physiologically distended without shadowing gallstones. There is borderline wall thickening. No pericholecystic fluid is noted. No intra- or extrahepatic biliary dilatation is evident. The common duct measures 4 - 5 mm. The liver and pancreas show no significant sonographic abnormality. Limited imaging of the right kidney shows no hydronephrosis or perinephric fluid. There is a right renal cyst measuring 17 mm. US/US gall bladder IMPRESSION: NO CHOLELITHIASIS. INCIDENTAL RIGHT RENAL CYST. Impression dictated by: Dara Hardy M.D.07/23/2022 7:18 AM Dictation Location: RADIO-PC-12 Tech: Bethany Santacruz Transcribed By: PWS 01/07/03 718 Dictated By: Dara Hardy MD 07/23/22 0700 Signed By: 07/23/22717 Normal [facility] Basophils Auto (Bld) [#/Vol] Ordered By: Salvador Maier on 07-22-2022 Basophils (Bld) [#/Vol] 0.1 10*3/uL 0.0-0.2 [facility] Basophils/100 WBC Auto (Bld) Ordered By: Salvador Maier on 07-22-2022 Basophils/100 WBC (Bld) 1.0 % . [facility] Bilirubin Test strip Ql (U)O rdered By: Salvador Maier on 07-22-2022 Bilirubin Ql (U) Negative Negative [facility] Body fluid albumin measureme nt (mass/volume)Ordered By: Salvador Maier on 07-22-2022 Albumin (Body fld) [Mass/Vol] 3.9 g/dL 3.2-5. 5 [facility] Color Auto (U)Ordered By: Nguyễn Maier on 07-22-2022 Color (U) Yellow Yellow [facility] Complete Blood Count Auto Di ffon 07-22-2022 Basophils (Bld) [#/Vol] 0.1 10*3/uL Normal 0.0-0.2 [facility] Comment on above: Result Comment: PERF ORMED BY: [place] [address] PATHOLOGIST PASSENGER RATE CLERK MARINE WARD M.D. Performed By: #### U A #### [facility] [address] [place] [address] [place] Basophils/100 WBC (Bld) 1.0 % Normal . [facility] Comment on above: Performed By: #### U A #### [facility] [address] [place] [address] [place] Eosinophils (Bld) [#/Vol] 0.4 10*3/uL Normal 0.0-0.45 [facility] Comment on above: Performed By: #### U A #### [facility] [address] [place] [address] [place] Eosinophils/100 WBC (Bld) 4.1 % Normal . [facility] Comment on above: Performed By: #### U A #### [address] Erythrocyte distribution wid th (RBC) [Ratio] 14.7 % Normal 11.9-15.3 [facility] Comment on above: Performed By: #### U A #### [address] Hematocrit (Bld) [Volume fraction] 40.9 % Normal 34.0-46.4 [facility] Comment on above: Performed By: #### U A #### [address] Hemoglobin (Bld) [Mass/Vol] 13.3 g/dL Normal 11.8-15. 4 [facility] Comment on above: Performed By: #### U A #### [address] Lymphocytes (Bld) [#/Vol] 3.1 10*3/uL Normal 1.00-4.8 [facility] Comment on above: Performed By: #### U A #### [address] Lymphocytes/100 WBC (Bld) 35.0 % Normal . [facility] Comment on above: Performed By: #### U A #### [address] MCH (RBC) [Entitic mass] 30.2 pg Normal 24.7-34.3 [facility] Comment on above: Performed By: #### U A #### [address] MCV (RBC) [Entitic vol] 92.6 fL Normal 80-100 [facility] Comment on above: Performed By: #### U A #### [address] Mean Corpuscular HGB Conc 32.6 g/dL Normal 32.0-35.0 [facility] Comment on above: Performed By: #### U A #### [facility] [address] Monocytes (Bld) [#/Vol] 0.6 10*3/uL Normal 0.0-0.8 [facility] Comment on above: Performed By: #### U A #### [facility] [address] Monocytes/100 WBC (Bld) 20.62 % High 0.00-20.00 [facility] Comment on above: Result Comment: For adults in ED, MDW > 20.0 may be associated with a higher risk of sepsis during the first 12 hrs of hospital admission Performed By: #### U A #### [facility] [address] [place] [address] Monocytes/100 WBC (Bld) 7.1 % Normal . [facility] Comment on above: Performed By: #### U A #### [address] Neutrophils (Bld) [#/Vol] 4.6 10*3/uL Normal 1.8-7.7 [facility] Comment on above: Performed By: #### U A #### [address] Neutrophils/100 WBC (Bld) 52.8 % Normal . [facility] Comment on above: Performed By: #### U A #### [address] NRBC% 0.2 /100{WBC} Normal 0-0.5 [facility] Comment on above: Performed By: #### U A #### [address] Platelet mean volume (Bld) [Entitic vol] 9.1 fL Normal 6.3-10.7 [facility] Comment on above: Performed By: #### U A #### [address] Platelets (Bld) [#/Vol] 202 10*3/uL Normal 150-450 [facility] Comment on above: Performed By: #### U A #### [facility] [address] RBC (Bld) [#/Vol] 4.42 10*6/uL Normal 3.60-5.00 [facility] Comment on above: Performed By: #### U A #### [facility] [address] WBC (Bld) [#/Vol] 8.8 10*3/uL Normal 3.8-11.6 [facility] Comment on above: Performed By: #### U A #### [facility] [address] Comprehensive Metabolic Pane louise 07-22-2022 Albumin [Mass/Vol] 3.9 g/dL Normal 3.2-5.5 [facility] Comment on above: Performed By: #### U A #### [facility] [address] Albumin/Globulin [Mass ratio] 1.6 {ratio} Normal [facility] Comment on above: Performed By: #### U A #### [facility] [address] ALP [Catalytic activity/Vol] 109 U/L High 32-92 [facility] Comment on above: Performed By: #### U A #### [facility] [address] ALT [Catalytic activity/Vol] 12 U/L Normal 10-60 [facility] Comment on above: Performed By: #### U A #### [facility] [address] Anion gap [Moles/Vol] 13.2 mmol/L Normal 6.0-15.0 [facility] Comment on above: Performed By: #### U A #### [facility] [address] [place] [address] AST [Catalytic activity/Vol] 16 U/L Normal 10-42 [facility] Comment on above: Performed By: #### U A #### [facility] [address] [place] [address] Bilirubin [Mass/Vol] 0.3 mg/dL Normal 0.3-1.2 [facility] Comment on above: Performed By: #### U A #### [address] Calcium [Mass/Vol] 8.8 mg/dL Normal 8.2-10.2 [facility] Comment on above: Performed By: #### U A #### [address] Chloride [Moles/Vol] 103 mmol/L Normal 95-114 [facility] Comment on above: Performed By: #### U A #### [address] CO2 [Moles/Vol] 26.0 mmol/L Normal 22.0-30.0 [facility] Comment on above: Performed By: #### U A #### [address] Creatinine [Mass/Vol] 0.68 mg/dL Normal 0.44-1.03 [facility] Comment on above: Performed By: #### U A #### [address] Creatinine Clr Calc Pharmacy 90.47 [facility] Comment on above: Performed By: #### U A #### [address] Estimated GFR ( Tabitha > 60 [facility] Comment on above: Result Comment: GFR estimated reference range: According to KDOQI guidelines, <60 ml/min/1.73m2 is sufficient to diagnose a patient with chronic kidney disease. Performed By: #### U A #### [address] Estimated GFR (Non- Am > 60 [facility] Comment on above: Performed By: #### U A #### [address] Globulin (S) [Mass/Vol] 2.5 g/dL Normal [facility] Comment on above: Performed By: #### U A #### [facility] [address] Glucose [Mass/Vol] 102 mg/dL High 70-100 [facility] Comment on above: Result Comment: [place] Glucose Reference Range is dependent on time and content of last meal. Glucose of more than 200 mg/dL in a nonstressed, ambulatory subject supports the diagnosis of Diabetes Mellitus. ADA recommended reference range Performed By: #### U A #### [facility] [address] Potassium [Moles/Vol] 3.2 mmol/L Low 3.5-5.1 [facility] Comment on above: Performed By: #### U A #### [facility] [address] [place] [address] Protein [Mass/Vol] 6.4 g/dL Normal 6.1-7.9 [facility] Comment on above: Performed By: #### U A #### [facility] [address] Sodium [Moles/Vol] 139 mmol/L Normal 136-146 [facility] Comment on above: Performed By: #### U A #### [facility] [address] [place] [address] Urea nitrogen [Mass/Vol] 4 mg/dL Low 9-23 [facility] Comment on above: Performed By: #### U A #### [address] Creatinine and Glomerular fi ltration rate.predicted panel (S/P/Bld)Ordered By: Salvador Maier on 07-22-2022 Creatinine [Mass/Vol] 0.68 mg/dL 0.44-1.03 [facility] Eosinophils Auto (Bld) [#/Vo l]Ordered By: Salvador Maier on 07-22-2022 Eosinophils (Bld) [#/Vol] 0.4 10*3/uL 0.0-0.45 [facility] Eosinophils/100 WBC Auto (Bl d)Ordered By: Salvador Maier on 07-22-2022 Eosinophils/100 WBC (Bld) 4.1 % . [facility] Erythrocyte distribution wid th Auto (RBC) [Ratio]Ordered By: Salvador Maier on 07-22-2022 Erythrocyte distribution wid th (RBC) [Ratio] 14.7 % 11.9-15.3 [facility] Estimated glomerular filtrat ion rate (GFR) non- AmericanOrdered By: Salvador Maier on 07-22-2022 GFR/1.73 sq M.predicted coreen g non-blacks MDRD (S/P/Bld) [Vol rate/Area] > 60 mL/Min [facility] Globulin Calc (S) [Mass/Vol] Ordered By: Salvador Maier on 07-22-2022 Globulin (S) [Mass/Vol] 2.5 g/dL [facility] HCG ( test) IA.rapi d Ql (U)Ordered By: Salvador Maier on 07-22-2022 HCG ( test) Ql (U) Negative [facility] HCG,Urineon 07-22-2022 Beta HCG ( test) Ql (U) Negative Normal [facility] Comment on above: Result Comment: PERF ORMED BY: [place] [address] PATHOLOGIST PASSENGER RATE CLERK MARINE WARD M.D. Performed By: #### U A #### [address] Hematocrit Auto (Bld) [Volum e fraction]Ordered By: Salvador Maier on 07-22-2022 Hematocrit (Bld) [Volume fraction] 40.9 % 3 4.0-46.4 [facility] Hemoglobin [Mass/volume] in BloodOrdered By: Salvador Maier on 07-22-2022 Hemoglobin (Bld) [Mass/Vol] 13.3 g/dL 11.8-15. 4 [facility] Ketones Auto test strip (U) [Mass/Vol]Ordered By: Salvador Maier on 07-22-2022 Ketones (U) [Mass/Vol] Negative Negative Fi [facility] - Chemistry and C hemistry - challengeOrdered By: Salvador Maier on 07-22-2022 Lipase [Catalytic activity/Vol] 70.0 U/L 22-5 1 [facility] Leukocytes [#/volume] correc zakia for nucleated erythrocytes in Blood by Automated counOrdered By: Salvador Maier on 07-22-2022 WBC corrected for nucl RBC A uto (Bld) [#/Vol] 8.8 10*3/uL 3.8-11.6 [facility] Lipaseon 07-22-2022 Lipase [Catalytic activity/Vol] 70.0 U/L High 22-5 1 [facility] Comment on above: Result Comment: PERF ORMED BY: [place] [address] PATHOLOGIST PASSENGER RATE CLERK MARINE WARD M.D. Performed By: #### U A #### [address] Lymphocytes Auto (Bld) [#/Vo l]Ordered By: Salvador Maier on 07-22-2022 Lymphocytes (Bld) [#/Vol] 3.1 10*3/uL 1.00-4.8 [facility] Lymphocytes/100 WBC Auto (Bl d)Ordered By: Salvador Maier on 07-22-2022 Lymphocytes/100 WBC (Bld) 35.0 % . [facility] MCH Auto (RBC) [Entitic mass ]Ordered By: Salvador Maier on 07-22-2022 MCH (RBC) [Entitic mass] 30.2 pg 24.7-34.3 [facility] MCHC Auto (RBC) [Mass/Vol]Or dered By: Salvador Maier on 07-22-2022 MCHC (RBC) [Mass/Vol] 32.6 g/dL 32.0-35.0 [facility] MCV Auto (RBC) [Entitic vol] Ordered By: Salvador Maier on 07-22-2022 MCV (RBC) [Entitic vol] 92.6 fL 80-100 [facility] Monocyte distribution width [Entitic volume] in Blood by AutomatedOrdered By: Salvador Maier on 07-22-2022 Monocyte distribution width Auto (Bld) [Entitic vol] 20.62 % 0.00-20.00 [facility] Comment on above: For adults in ED, MD W > 20.0 may be associated with a higher risk of sepsis during the first 12 hrs of hospital admission Monocytes Auto (Bld) [#/Vol] Ordered By: Salvador Maier on 07-22-2022 Monocytes (Bld) [#/Vol] 0.6 10*3/uL 0.0-0.8 [facility] Monocytes/100 WBC Auto (Bld) Ordered By: Salvador Maier on 07-22-2022 Monocytes/100 WBC (Bld) 7.1 % . [facility] Neutrophils Auto (Bld) [#/Vo l]Ordered By: Salvador Maier on 07-22-2022 Neutrophils (Bld) [#/Vol] 4.6 10*3/uL 1.8-7.7 [facility] Neutrophils/100 WBC Auto (Bl d)Ordered By: Salvador Maier on 07-22-2022 Neutrophils/100 WBC (Bld) 52.8 % . [facility] Nitrite Test strip Ql (U)Ord ered By: Salvador Maier on 07-22-2022 Nitrite Ql (U) Negative Negative [facility] No Panel InformationOrdered By: Salvador Maier on 07-22-2022 Estimated GFR () > 60 mL/Min [facility] Comment on above: GFR estimated refere nce range: According to KDOQI guidelines, <60 ml/min/1.73m2 is sufficient to diagnose a patient with chronic kidney disease. Pharmacy Creatinine Clearance (Chem 90.47 [facility] Nucleated erythrocytes [Pres ence] in Blood by Automated countOrdered By: Salvador Maier on 07-22-2022 Nucleated RBC Auto Ql (Bld) 0.2 /100{WBC} 0-0.5 [facility] Platelet mean volume Auto (B ld) [Entitic vol]Ordered By: Salvador Maier on 07-22-2022 Platelet mean volume (Bld) [Entitic vol] 9.1 fL 6.3-10.7 [facility] Platelets Auto (Bld) [#/Vol] Ordered By: Salvador Maier on 07-22-2022 Platelets (Bld) [#/Vol] 202 10*3/uL 150-450 [facility] Protein Auto test strip (U) [Mass/Vol]Ordered By: Salvador Maier on 07-22-2022 Protein (U) [Mass/Vol] Negative Negative [facility] Protein [Mass/volume] in Ser um or PlasmaOrdered By: Salvador Maier on 07-22-2022 Protein [Mass/Vol] 6.4 g/dL 6.1-7.9 [facility] RBC Auto (Bld) [#/Vol]Ordere d By: Salvador Maier on 07-22-2022 RBC (Bld) [#/Vol] 4.42 10*6/uL 3.60-5.00 [facility] Serum or plasma alanine mckeon otransferase measurement without P-5'-P (enzymatic activiOrdered By: Salvador Maier on 07-22-2022 ALT No additional P-5'-P [Ca talytic activity/Vol] 12 U/L 1060 [facility] Serum or plasma albumin/glob ulin mass ratioOrdered By: Salvador Maier on 07-22-2022 Albumin/Globulin [Mass ratio] 1.6 {ratio} [facility] Serum or plasma alkaline kamron sphatase measurement (enzymatic activity/volume)Ordered By: Salvador Maier on 07-22-2022 ALP [Catalytic activity/Vol] 109 U/L 32-92 [facility] Serum or plasma anion gap de terminationOrdered By: Salvador Maier on 07-22-2022 Anion gap [Moles/Vol] 13.2 mmol/L 6.0-15.0 [facility] Serum or plasma aspartate am inotransferase measurement (enzymatic activity/volume)Ordered By: Salvador Maier on 07-22-2022 AST [Catalytic activity/Vol] 16 U/L 1042 [facility] Serum or plasma calcium kunal urement (mass/volume)Ordered By: Salvador Maier on 07-22-2022 Calcium [Mass/Vol] 8.8 mg/dL 8.2-10.2 [facility] Serum or plasma chloride chacorta surement (moles/volume)Ordered By: Salvador Maier on 07-22-2022 Chloride [Moles/Vol] 103 mmol/L 95-114 [facility] Serum or plasma glucose kunal urement (mass/volume)Ordered By: Salvador Maier on 07-22-2022 Glucose [Mass/Vol] 102 mg/dL 70-100 [facility] Comment on above: ADA recommended refe rence rangeRandom Glucose Reference Range is dependent on time and content of last meal. Glucose of more than 200 mg/dL in a nonstressed, ambulatory subject supports the diagnosis of Diabetes Mellitus. Serum or plasma potassium me asurement (moles/volume)Ordered By: Salvador Maier on 07-22-2022 Potassium [Moles/Vol] 3.2 mmol/L 3.5-5.1 [facility] Serum or plasma sodium measu rement (moles/volume)Ordered By: Salvador Maier on 07-22-2022 Sodium [Moles/Vol] 139 mmol/L 136-146 [facility] Serum or plasma total biliru bin measurement (mass/volume)Ordered By: Salvador Maier on 07-22-2022 Bilirubin [Mass/Vol] 0.3 mg/dL 0.3-1.2 [facility] Serum or plasma total carbon dioxide measurement (moles/volume)Ordered By: Salvador Maier on 07-22-2022 CO2 [Moles/Vol] 26.0 mmol/L 22.0-30.0 [facility] Serum or plasma urea nitroge n measurement (mass/volume)Ordered By: Salvador Maier on 07-22-2022 Urea nitrogen [Mass/Vol] 4 mg/dL 9- [facility] Specific gravity Auto test s trip (U) [Rel density]Ordered By: Salvador Maier on 07-22-2022 Specific gravity (U) [Rel density] 1.004 1.001-1.030 [facility] Urinalysison 07-22-2022 Appearance (U) Clear Normal Clear [facility] Comment on above: Order Comment: Name Collection Type:: Clean-Voided Midstream Performed By: #### U A #### [facility] [address] [id number] [place] Bilirubin,Urine Negative Normal Negative [facility] Comment on above: Order Comment: Name Collection Type:: Clean-Voided Midstream Performed By: #### U A #### [facility] [address] [id number] [place] Color (U) Yellow Normal Yellow [facility] Comment on above: Order Comment: Name Collection Type:: Clean-Voided Midstream Performed By: #### U A #### [address] Glucose Ql (U) Normal Normal Normal [facility] Comment on above: Order Comment: Name Collection Type:: Clean-Voided Midstream Performed By: #### U A #### [facility] [address] [place] [address] Ketones Ql (U) Negative Normal Negative [facility] Comment on above: Order Comment: Name Collection Type:: Clean-Voided Midstream Performed By: #### U A #### [address] Leukocyte esterase Test stri p Ql (U) Negative Normal Negative [facility] Comment on above: Order Comment: Name Collection Type:: Clean-Voided Midstream Performed By: #### U A #### [address] Nitrite,Urine Negative Normal Negative [facility] Comment on above: Order Comment: Name Collection Type:: Clean-Voided Midstream Performed By: #### U A #### [address] Occult Blood,Urine Negative Normal Negative [facility] Comment on above: Order Comment: Name Collection Type:: Clean-Voided Midstream Result Comment: PERF ORMED BY: [place] [address] PATHOLOGIST PASSENGER RATE CLERK MARINE WARD M.D. Performed By: #### U A #### [facility] [address] [place] [address] [place] pH (U) 7.0 [pH] Normal 5.0-9.0 [facility] Comment on above: Order Comment: Name Collection Type:: Clean-Voided Midstream Performed By: #### U A #### [place] [address] [place] Protein,Urine Negative Normal Negative [facility] Comment on above: Order Comment: Name Collection Type:: Clean-Voided Midstream Performed By: #### U A #### [facility] [address] Specificy [place],Urine 1.004 Normal 1.001-1.030 [facility] Comment on above: Order Comment: Name Collection Type:: Clean-Voided Midstream Performed By: #### U A #### [facility] [address] [place] [address] [place] Urobilinogen,Urine Normal Normal Normal [facility] Comment on above: Order Comment: Name Collection Type:: Clean-Voided Midstream Performed By: #### U A #### [facility] [address] Urine clarity by refractomet ry automatedOrdered By: Salvador Maier on 07-22-2022 Clarity Refractometry automated (U) Clear Clear [facility] Urine glucose measurement by automated test strip (mass/volume)Ordered By: Salvador Maier on 07-22-2022 Glucose Auto test strip (U) [Mass/Vol] Normal mg/dL Normal [facility] Urine hemoglobin detection b y automated test stripOrdered By: Salvador Maier on 07-22-2022 Hemoglobin Auto test strip Ql (U) Negative Ne gative [facility] Urine leukocyte esterase det ection by automated test stripOrdered By: Salvador Maier on 07-22-2022 Leukocyte esterase Auto test strip Ql (U) Negative Negative [facility] Urobilinogen Auto test strip (U) [Mass/Vol]Ordered By: Salvador Maier on 07-22-2022 Urobilinogen (U) [Mass/Vol] Normal mg/dL Normal [facility] WBC Auto (Bld) [#/Vol]Ordere d By: Salvador Maier on 07-22-2022 WBC (Bld) [#/Vol] 8.8 10*3/uL 3.8-11.6 [facility] pH Auto test strip (U)Ordere d By: Salvador Maier on 07-22-2022 pH (U) 7.0 [pH] 5.0-9.0 [facility] CBC AUTO DIFFon 07-21-2022 BASO # 0.0 103/ul Normal 0.0-0.1 [facility] [place] [facility] Comment on above: Performed By: #### C BC ####[facility] [address] [place], [place] [address]Dr. Ruthie Pan Basophils/100 WBC (Bld) 0.5 % Normal 0.2-2.0 [facility] Comment on above: Performed By: #### C BC ####[facility] [address] [place], [place] [address]Dr. Michaelajean-claude Pan EO # 0.5 103/ul Normal 0.0-0.7 [facility] [place] [facility] Comment on above: Performed By: #### C BC ####[facility] [address] [place], [place] [address]Dr. Ruthie Pan Eosinophils/100 WBC (Bld) 5.8 % Normal 0.9-7.0 [facility] Comment on above: Performed By: #### C BC ####[facility] X[address] [place], [place] [address]Dr. Ruthie Pan Erythrocyte distribution wid th (RBC) [Ratio] 14.0 % Normal 11.0-15.0 The [facility] Comment on above: Performed By: #### C BC ####[facility] [address] [place], [place] [address]Dr. Ruthie Pan Hematocrit (Bld) [Volume fraction] 38.9 % Normal 3 6.0-48.0 [facility] Comment on above: Performed By: #### C BC ####[facility] [address] [place], [place] [address]Dr. Ruthie Pan Hemoglobin (Bld) [Mass/Vol] 13.0 g/dL Normal 12.0-16. 0 [facility] Comment on above: Performed By: #### C BC ####[facility] [address] [place], [place] [address]Dr. Ruthie Pan IG # 0.02 10e3/ul Normal 0.00-0.03 [facility] Comment on above: Performed By: #### C BC ####[facility] [address] [address]Dr. Michaelajean-claude Pan IG % 0.3 % Normal 0.0-0.5 [facility] [place] [facility] Comment on above: Performed By: #### C BC ####[facility] [address] [place], [place] [address]Dr. Ruthie Maxim LYMPH # 2.8 103/ul Normal 1.2-3.8 [facility] [place] [facility] Comment on above: Performed By: #### C BC ####[facility] [address] [place], [place] [address]Dr. Michaelajean-claude Pan Lymphocytes/100 WBC (Bld) 36.0 % Normal 20.5-60.0 [facility] Comment on above: Performed By: #### C BC ####[facility] [address] [address]Dr. Ruthie Pan MANUAL DIFF REQ NO Normal [facility] Comment on above: Performed By: #### C BC ####[facility] [address] [place], [place] [address]Dr. Ruthie Maxim MCH (RBC) [Entitic mass] 30.6 pg Normal 26.7-34.0 [facility] Comment on above: Performed By: #### C BC ####[facility] [address] [place], [place] [address]Dr. Ruthie Pan MCHC (RBC) [Mass/Vol] 33.4 g/dL Normal 29.9-35.2 [facility] Comment on above: Performed By: #### C BC ####[facility] [address] [place], [place] [address]Dr. Ruthie Pan MCV (RBC) [Entitic vol] 91.5 fL Normal 81.0-99.0 [facility] Comment on above: Performed By: #### C BC ####[facility] [address] [place], [place] [address]Dr. Ruthie Pan MONO # 0.6 103/ul Normal 0.3-0.8 [facility] [place] [facility] Comment on above: Performed By: #### C BC ####[facility] [address] [place] [id number]. Ruthie Pan Monocytes/100 WBC (Bld) 7.9 % Normal 1.7-12.0 [facility] Comment on above: Performed By: #### C BC ####[facility] [address] [address]Dr. Ruthie Pan NEUT # 3.8 103/ul Normal 1.4-6.5 [facility] [place] [facility] Comment on above: Performed By: #### C BC ####[facility] [address] [address]Dr. Ruthie Pan Neutrophils/100 WBC (Bld) 49.5 % Normal 43.0-75.0 [facility] Comment on above: Performed By: #### C BC ####[facility] [address] [address]Dr. Ruthie Pan Platelet mean volume (Bld) [ Entitic vol] 10.6 fL Normal 9.5-13.5 The [facility] pital Comment on above: Performed By: #### C BC ####[facility] [address] [address]Dr. Ruthie Pan PLT 201 103/ul Normal 150-450 [facility] [place] [facility] Comment on above: Performed By: #### C BC ####[facility] [address] [address]Dr. Ruthie Pan RBC 4.25 106/ul Normal 4.20-5.40 [facility] Comment on above: Performed By: #### C BC ####[facility] [address] [id number]. Ruthie Pan WBC 7.8 103/ul Normal 4.0-11.0 [facility] [place] [facility] Comment on above: Performed By: #### C BC ####[facility] [address] [address]Dr. Ruthie Pan ER URINE PROFILEon 3 Bilirubin Ql (U) Negative Normal NEGATIVE The [facility] Comment on above: Performed By: #### U MICRO, ERUR #### [facility] [address] [place] [address] Dr. Ruthie Pan Clarity (U) CLEAR Normal CLEAR [facility] Comment on above: Performed By: #### U MICRO, ERUR #### [facility] [address] [place] [address] Dr. Ruthie Pan Color (U) LT. YELLOW Normal YELLOW [facility] [place] [facility] Comment on above: Performed By: #### U MICRO, ERUR #### [facility] [address] [place] [address] Dr. Ruthie Pan ERUAHD A micrscopic examina tion will be performed if indicated. Normal [facility] Comment on above: Performed By: #### U MICRO, ERUR #### [facility] [address] [place] [address] Dr. Ruthie Pan Glucose Ql (U) Negative Normal NEGATIVE The [facility] Comment on above: Performed By: #### U MICRO, ERUR #### [facility] [address] [place] [address] Dr. Ruthie Pan Hemoglobin Ql (U) TRACE-LYSED Abnormal NEGATIVE [facility] Comment on above: Performed By: #### U MICRO, ERUR #### [facility] [address] [place] [address] Dr. Ruthie Pan Ketones Ql (U) Negative Normal NEGATIVE [facility] Comment on above: Performed By: #### U MICRO, ERUR #### [facility] [address] [place] [address] Dr. Ruthie Pan LEUKOCYTES Negative Normal NEGATIVE [facility] [place] [facility] Comment on above: Performed By: #### U MICRO, ERUR #### [facility] [address] [place] [address] Dr. Ruthie Pan Nitrite Ql (U) Negative Normal NEGATIVE [facility] Comment on above: Performed By: #### U MICRO, ERUR #### [facility] [address] [place] [address] Dr. Ruthie Pan pH (U) 6.5 [pH] Normal 5-9 [facility] [place] [facility] Comment on above: Performed By: #### U MICRO, ERUR #### [facility] [address] [address] [address] Ruthie Pan SPEC GRAVITY <=1.005 Abnormal 1.005-<=1.025 The [facility] Comment on above: Performed By: #### U MICRO, ERUR #### [facility] [address] [address] [address] Ruthie Pan UA PROTEIN Negative Normal NEGATIVE/ TRACE The [facility] Comment on above: Performed By: #### U MICRO, ERUR #### [facility] [address] [address] [address] Ruthie Pan UR MICRO IND INDICATED Normal [facility] Comment on above: Performed By: #### U MICRO, ERUR #### [facility] [address] [address] [address] Ruthie Pan Urobilinogen Qn (U) 0.2 {Harjeet'U}/dL Normal 0.2 - 1. 0 [facility] Comment on above: Performed By: #### U MICRO, ERUR #### [facility] [address] [address] [address] Ruthie Pan LACTATE/LACTIC ACIDon 2022 Lactate [Moles/Vol] 0.7 mmol/L Normal 0.4-1.9 [facility] Comment on above: Performed By: #### L ACT ####[facility] [address] [address]DrGideon Pan LIPASEon 07-21-2022 Lipase [Catalytic activity/Vol] 97.0 U/L Normal 73.0 -393.0 [facility] Comment on above: Performed By: #### L IPA, CMP ####[facility] [address] [address]DrGideon Pan PROF 14(COMP METB)on 023 Albumin [Mass/Vol] 3.6 g/dL Normal 3.4-5.0 [facility] Comment on above: Performed By: #### L IPA, CMP ####[facility] [address] [address]Dr. Ruthie Pan Albumin/Globulin [Mass ratio] 1.3 {ratio} Normal [facility] Comment on above: Performed By: #### L IPA, CMP ####[facility] [address] [address]Dr. Ruthie Pan ALP [Catalytic activity/Vol] 129 U/L Critically high 46 -116 [facility] Comment on above: Performed By: #### L IPA, CMP ####[facility] [address] [place] [address]Dr. Ruthie Maxim ALT [Catalytic activity/Vol] 13 U/L Critically low 14- 59 [facility] Comment on above: Performed By: #### L IPA, CMP ####[facility] [address] [place], [place] [address]Dr. Ruthie Pan Anion gap [Moles/Vol] 10.0 mmol/L Normal [facility] Comment on above: Performed By: #### L IPA, CMP ####[facility] [address] [place], [place] [address]Dr. Ruthie Maxim AST [Catalytic activity/Vol] 13 U/L Critically low 15- 37 [facility] Comment on above: Performed By: #### L IPA, CMP ####[facility] [address] [place], [place] [address]Dr. Michaelajean-claude Maxim Bilirubin [Mass/Vol] 0.2 mg/dL Normal 0.2-1.0 [facility] Comment on above: Performed By: #### L IPA, CMP ####[facility] [address] [place] [address]Dr. Ruthie Pan Calcium [Mass/Vol] 8.5 mg/dL Normal 8.5-10.1 [facility] Comment on above: Performed By: #### L IPA, CMP ####[facility] [address] [place], [place] [address]Dr. Ruthie Pan Chloride [Moles/Vol] 104 mmol/L Normal 98-107 [facility] Comment on above: Performed By: #### L IPA, CMP ####[facility] [address] [place], [place] [address]Dr. Ruthie Pan CO2 [Moles/Vol] 29.6 mmol/L Normal 21.0-32.0 [facility] Comment on above: Performed By: #### L IPA, CMP ####[facility] [address] [place] [address]Dr. Ruthie Pan Creatinine [Mass/Vol] 0.67 mg/dL Normal 0.55-1.02 [facility] Comment on above: Performed By: #### L IPA, CMP ####[facility] [address] [place] [address]Dr. Ruthie Pan EGFR-AF BOTSWANAN >60 Normal >=60 The [facility] Comment on above: Performed By: #### L IPA, CMP ####[facility] [address] [place] [address]Dr. Ruthie Pan EGFR-NON AF BOTSWANAN >60 Normal >=60 [facility] Comment on above: Performed By: #### L IPA, CMP ####[facility] [address] [place], [place] [address]Dr. Ruthie Pan Globulin (S) [Mass/Vol] 2.8 g/dL Normal [facility] Comment on above: Performed By: #### L IPA, CMP ####[facility] [address] [place] [address]Dr. Ruthie Pan Glucose [Mass/Vol] 106 mg/dL Normal 74-106 [facility] Comment on above: Performed By: #### L IPA, CMP ####[facility] [address] [place] [address]Dr. Ruthie Pan Potassium [Moles/Vol] 3.6 mmol/L Normal 3.5-5.1 [facility] Comment on above: Performed By: #### L IPA, CMP ####[facility] [address] [place], [place] [address]Dr. Ruthie Pan Protein [Mass/Vol] 6.4 g/dL Normal 6.4-8.2 [facility] Comment on above: Performed By: #### L IPA, CMP ####[facility] [address] [place] [id number] Pan Sodium [Moles/Vol] 140 mmol/L Normal 136-145 [facility] Comment on above: Performed By: #### L IPA, CMP ####[facility] [address] [place] [address]DrGideon Pan Urea nitrogen [Mass/Vol] 4.0 mg/dL Critically low 7.0-18. 0 [facility] Comment on above: Performed By: #### L IPA, CMP ####[facility] [address] [place] [address]Dr. Ruthie Pan Urea nitrogen/Creatinine [Mass ratio] 6.0 mg/mg Normal [facility] Comment on above: Performed By: #### L IPA, CMP ####[facility] [address] [place] [address]DrGideon Pan URINE MICROSCOPIC ONLYon BACTERIA NONE SEEN Normal NONE SEEN [facility] [place] [facility] Comment on above: Performed By: #### U MICRO, ERUR #### [facility] [address] [place] [address] Dr. Ruthie Pan Bacteria identified Cx Nom (U) NOT INDICATED Normal [facility] Comment on above: Performed By: #### U MICRO, ERUR #### [facility] [address] [place] [address] Dr. Ruthie Pan CAST NONE SEEN Normal NONE SEEN [facility] [place] [facility] Comment on above: Performed By: #### U MICRO, ERUR #### [facility] [address] [address] [address] Ruthie Pan Crystals LM Nom (Urine sed) NONE SEEN Normal NONE SEE N [facility] Comment on above: Performed By: #### U MICRO, ERUR #### [facility] [address] [address] [address] Ruthie Pan Epithelial cells LM Ql (Urine sed) FEW Abnormal N ONE SEEN /RARE [facility] Comment on above: Performed By: #### U MICRO, ERUR #### [facility] [address] [place] [address] Dr. Ruthie Pan MUCOUS NONE SEEN Normal NONE SEEN [facility] [place] [facility] Comment on above: Performed By: #### U MICRO, ERUR #### [facility] [address] [place], [place] [address] Dr. Ruthie Pan RBC 0-2 Normal 0-2 [facility] [place] [facility] Comment on above: Performed By: #### U MICRO, ERUR #### [facility] [address] [place], [place] [address] Dr. Ruthie Pan WBC 0-2 Abnormal NONE SEEN [facility] [place] [facility] Comment on above: Performed By: #### U MICRO, ERUR #### [facility] [address] [place], [place] [address] Dr. Ruthie Pan US SINGLE QUAD RT UPPERon US SINGLE QUAD RT UPPER EXAM: US SINGLE QUAD RT UPPER HISTORY: Epigastric pain COMPARISON: 11/24/2021 TECHNIQUE: Multiple sonographic images of the right upper quadrant of the abdomen were obtained, supplemented with Doppler. FINDINGS: The liver has normal size, without evidence of a cystic or solid mass. Normal echogenicity is noted throughout. There is no evidence of gallstones or thickening of the gallbladder wall. The central hepatic biliary ducts and the common bile duct are not dilated and the common bile duct measures 4 mm in diameter. A sonographic Saldivar sign was not elicited during the study. The pancreas appears unremarkable without an apparent cystic or solid mass. The right kidney measures 10.0 x 4.9 x 4.3 cm. A cyst is seen in the inferior aspect of the right kidney measuring 1.6 x 1.5 cm. There is no evidence of hydronephrosis. IMPRESSION: The liver appears unremarkable. There is no evidence of gallstones or dilation of bile ducts. No abnormality is seen at the pancreas. A cyst is seen in the right kidney without evidence of hydronephrosis. The overall appearance is unchanged since 11/24/2021. Electronically authenticated by: KAE VILLALPANDO Date: 2022-07-21 20:21 Normal [facility] Albumin [Mass/volume] in Ser um or PlasmaOrdered By: Rufina Ruiz on 07-20-2022 Albumin [Mass/Vol] 3.8 g/dL 3.2-5.5 [facility] Amylaseon 07-20-2022 Amylase [Catalytic activity/Vol] 129 U/L High 28- 100 [facility] Comment on above: Order Comment: Reaso n for Exam Upper abdominal pain;History of pancreatitis Reason for Exam Upper abdominal pain Reason for Exam Vitamin B12 deficiency anemia, unspecified Reason for Exam Anxiety Performed By: #### C USUP #### [facility] [address] Basophils Auto (Bld) [#/Vol] Ordered By: Rufina Ruiz on 07-20-2022 Basophils (Bld) [#/Vol] 0.1 10*3/uL 0.0-0.2 [facility] Basophils/100 WBC Auto (Bld) Ordered By: Rufina Ruiz on 07-20-2022 Basophils/100 WBC (Bld) 1.2 % . [facility] Cholesterol [Mass/volume] in Serum or PlasmaOrdered By: Rufina Ruiz on 07-20-2022 Cholesterol [Mass/Vol] 183 mg/dL 140-200 [facility] Comment on above: Chol less than 200 m g/dl low riskChol 201-239 mg/dl borderline riskChol 240 mg/dl and greater high risk Cholesterol in LDL Calc [Mas s/Vol]Ordered By: Rufina Ruiz on 07-20-2022 Cholesterol in LDL [Mass/Vol] 104 mg/dL 0-100 [facility] Comment on above: LDL ATP III CLASSIFI CATIONLDL less than 100 mg/dL OptimalLDL 100-129 mg/dL Near or above optimalLDL 130-159 mg/dL Borderline highLDL 160-189 mg/dL HighLDL greater than 189 mg/dL Very high Cholesterol in VLDL Calc [Ma ss/Vol]Ordered By: Rufina Ruiz on 07-20-2022 Cholesterol in VLDL [Mass/Vol] 26 mg/dL [facility] Complete Blood Count Auto Di ffon 07-20-2022 Basophils (Bld) [#/Vol] 0.1 10*3/uL Normal 0.0-0.2 [facility] Comment on above: Order Comment: Reaso n for Exam Upper abdominal pain;History of pancreatitis Result Comment: PERF ORMED BY: [place] [address] PATHOLOGIST PASSENGER RATE CLERK MARINE WARD M.D. Performed By: #### C USUP #### [address] Basophils/100 WBC (Bld) 1.2 % Normal . [facility] Comment on above: Order Comment: Reaso n for Exam Upper abdominal pain;History of pancreatitis Performed By: #### C USUP #### [address] Eosinophils (Bld) [#/Vol] 0.3 10*3/uL Normal 0.0-0.45 [facility] Comment on above: Order Comment: Reaso n for Exam Upper abdominal pain;History of pancreatitis Performed By: #### C USUP #### [address] Eosinophils/100 WBC (Bld) 3.0 % Normal . [facility] Comment on above: Order Comment: Reaso n for Exam Upper abdominal pain;History of pancreatitis Performed By: #### C USUP #### [address] Erythrocyte distribution wid th (RBC) [Ratio] 14.5 % Normal 11.9-15.3 [facility] Comment on above: Order Comment: Reaso n for Exam Upper abdominal pain;History of pancreatitis Performed By: #### C USUP #### [address] Hematocrit (Bld) [Volume fraction] 40.8 % Normal 34.0-46.4 [facility] Comment on above: Order Comment: Reaso n for Exam Upper abdominal pain;History of pancreatitis Performed By: #### C USUP #### [address] Hemoglobin (Bld) [Mass/Vol] 13.4 g/dL Normal 11.8-15. 4 [facility] Comment on above: Order Comment: Reaso n for Exam Upper abdominal pain;History of pancreatitis Performed By: #### C USUP #### [address] Lymphocytes (Bld) [#/Vol] 3.1 10*3/uL Normal 1.00-4.8 [facility] Comment on above: Order Comment: Reaso n for Exam Upper abdominal pain;History of pancreatitis Performed By: #### C USUP #### [address] Lymphocytes/100 WBC (Bld) 36.6 % Normal . [facility] Comment on above: Order Comment: Reaso n for Exam Upper abdominal pain;History of pancreatitis Performed By: #### C USUP #### [address] MCH (RBC) [Entitic mass] 30.4 pg Normal 24.7-34.3 [facility] Comment on above: Order Comment: Reaso n for Exam Upper abdominal pain;History of pancreatitis Performed By: #### C USUP #### [address] MCV (RBC) [Entitic vol] 92.7 fL Normal 80-100 [facility] Comment on above: Order Comment: Reaso n for Exam Upper abdominal pain;History of pancreatitis Performed By: #### C USUP #### [address] Mean Corpuscular HGB Conc 32.8 g/dL Normal 32.0-35.0 [facility] Comment on above: Order Comment: Reaso n for Exam Upper abdominal pain;History of pancreatitis Performed By: #### C USUP #### [address] Monocytes (Bld) [#/Vol] 0.6 10*3/uL Normal 0.0-0.8 [facility] Comment on above: Order Comment: Reaso n for Exam Upper abdominal pain;History of pancreatitis Performed By: #### C USUP #### [address] Monocytes/100 WBC (Bld) 7.0 % Normal . [facility] Comment on above: Order Comment: Reaso n for Exam Upper abdominal pain;History of pancreatitis Performed By: #### C USUP #### [facility] [address] [place] [address] [place] Neutrophils (Bld) [#/Vol] 4.4 10*3/uL Normal 1.8-7.7 [facility] Comment on above: Order Comment: Reaso n for Exam Upper abdominal pain;History of pancreatitis Performed By: #### C USUP #### [address] Neutrophils/100 WBC (Bld) 52.2 % Normal . [facility] Comment on above: Order Comment: Reaso n for Exam Upper abdominal pain;History of pancreatitis Performed By: #### C USUP #### [address] NRBC% 0.2 /100{WBC} Normal 0-0.5 [facility] Comment on above: Order Comment: Reaso n for Exam Upper abdominal pain;History of pancreatitis Performed By: #### C USUP #### [address] Platelet mean volume (Bld) [Entitic vol] 10.2 fL Normal 6.3-10.7 [facility] Comment on above: Order Comment: Reaso n for Exam Upper abdominal pain;History of pancreatitis Performed By: #### C USUP #### [place] [address] [place] Platelets (Bld) [#/Vol] 183 10*3/uL Normal 150-450 [facility] Comment on above: Order Comment: Reaso n for Exam Upper abdominal pain;History of pancreatitis Performed By: #### C USUP #### [place] [address] [place] RBC (Bld) [#/Vol] 4.40 10*6/uL Normal 3.60-5.00 [facility] Comment on above: Order Comment: Reaso n for Exam Upper abdominal pain;History of pancreatitis Performed By: #### C USUP #### [place] [address] [place] WBC (Bld) [#/Vol] 8.5 10*3/uL Normal 3.8-11.6 [facility] Comment on above: Order Comment: Reaso n for Exam Upper abdominal pain;History of pancreatitis Performed By: #### C USUP #### [facility] [address] Comprehensive Metabolic Pane louise 07-20-2022 Albumin [Mass/Vol] 3.8 g/dL Normal 3.2-5.5 [facility] Comment on above: Order Comment: Reaso n for Exam Upper abdominal pain;History of pancreatitis Reason for Exam Upper abdominal pain Reason for Exam Vitamin B12 deficiency anemia, unspecified Reason for Exam Anxiety Performed By: #### C USUP #### [facility] [address] [place] [address] Albumin/Globulin [Mass ratio] 1.6 {ratio} Normal [facility] Comment on above: Order Comment: Reaso n for Exam Upper abdominal pain;History of pancreatitis Reason for Exam Upper abdominal pain Reason for Exam Vitamin B12 deficiency anemia, unspecified Reason for Exam Anxiety Performed By: #### C USUP #### [facility] [address] [place] [address] ALP [Catalytic activity/Vol] 107 U/L High 32-92 [facility] Comment on above: Order Comment: Reaso n for Exam Upper abdominal pain;History of pancreatitis Reason for Exam Upper abdominal pain Reason for Exam Vitamin B12 deficiency anemia, unspecified Reason for Exam Anxiety Performed By: #### C USUP #### [facility] [address] ALT [Catalytic activity/Vol] 10 U/L Normal 10-60 [facility] Comment on above: Order Comment: Reaso n for Exam Upper abdominal pain;History of pancreatitis Reason for Exam Upper abdominal pain Reason for Exam Vitamin B12 deficiency anemia, unspecified Reason for Exam Anxiety Performed By: #### C USUP #### [facility] [address] [place] [address] Anion gap [Moles/Vol] 9.5 mmol/L Normal 6.0-15.0 [facility] Comment on above: Order Comment: Reaso n for Exam Upper abdominal pain;History of pancreatitis Reason for Exam Upper abdominal pain Reason for Exam Vitamin B12 deficiency anemia, unspecified Reason for Exam Anxiety Performed By: #### C USUP #### [facility] [address] AST [Catalytic activity/Vol] 13 U/L Normal 10-42 [facility] Comment on above: Order Comment: Reaso n for Exam Upper abdominal pain;History of pancreatitis Reason for Exam Upper abdominal pain Reason for Exam Vitamin B12 deficiency anemia, unspecified Reason for Exam Anxiety Performed By: #### C USUP #### [facility] [address] Bilirubin [Mass/Vol] 0.3 mg/dL Normal 0.3-1.2 [facility] Comment on above: Order Comment: Reaso n for Exam Upper abdominal pain;History of pancreatitis Reason for Exam Upper abdominal pain Reason for Exam Vitamin B12 deficiency anemia, unspecified Reason for Exam Anxiety Performed By: #### C USUP #### [facility] [address] Calcium [Mass/Vol] 8.7 mg/dL Normal 8.2-10.2 [facility] Comment on above: Order Comment: Reaso n for Exam Upper abdominal pain;History of pancreatitis Reason for Exam Upper abdominal pain Reason for Exam Vitamin B12 deficiency anemia, unspecified Reason for Exam Anxiety Performed By: #### C USUP #### [facility] [address] [place] [address] [place] Chloride [Moles/Vol] 107 mmol/L Normal 95-114 [facility] Comment on above: Order Comment: Reaso n for Exam Upper abdominal pain;History of pancreatitis Reason for Exam Upper abdominal pain Reason for Exam Vitamin B12 deficiency anemia, unspecified Reason for Exam Anxiety Performed By: #### C USUP #### [facility] [address] [place] [address] [place] CO2 [Moles/Vol] 25.4 mmol/L Normal 22.0-30.0 [facility] Comment on above: Order Comment: Reaso n for Exam Upper abdominal pain;History of pancreatitis Reason for Exam Upper abdominal pain Reason for Exam Vitamin B12 deficiency anemia, unspecified Reason for Exam Anxiety Performed By: #### C USUP #### [facility] [address] [place] [id number] [facility] Creatinine [Mass/Vol] 0.64 mg/dL Normal 0.44-1.03 [facility] Comment on above: Order Comment: Reaso n for Exam Upper abdominal pain;History of pancreatitis Reason for Exam Upper abdominal pain Reason for Exam Vitamin B12 deficiency anemia, unspecified Reason for Exam Anxiety Performed By: #### C USUP #### [facility] [address] Estimated GFR ( Tabitha > 60 Normal [facility] Comment on above: Order Comment: Reaso n for Exam Upper abdominal pain;History of pancreatitis Reason for Exam Upper abdominal pain Reason for Exam Vitamin B12 deficiency anemia, unspecified Reason for Exam Anxiety Result Comment: GFR estimated reference range: According to KDOQI guidelines, <60 ml/min/1.73m2 is sufficient to diagnose a patient with chronic kidney disease. Performed By: #### C USUP #### [facility] [address] Estimated GFR (Non- Am > 60 [facility] Comment on above: Order Comment: Reaso n for Exam Upper abdominal pain;History of pancreatitis Reason for Exam Upper abdominal pain Reason for Exam Vitamin B12 deficiency anemia, unspecified Reason for Exam Anxiety Performed By: #### C USUP #### [address] Globulin (S) [Mass/Vol] 2.4 g/dL Normal [facility] Comment on above: Order Comment: Reaso n for Exam Upper abdominal pain;History of pancreatitis Reason for Exam Upper abdominal pain Reason for Exam Vitamin B12 deficiency anemia, unspecified Reason for Exam Anxiety Performed By: #### C USUP #### [facility] [address] [place] [address] Glucose [Mass/Vol] 82 mg/dL Normal 70-100 [facility] Comment on above: Order Comment: Reaso n for Exam Upper abdominal pain;History of pancreatitis Reason for Exam Upper abdominal pain Reason for Exam Vitamin B12 deficiency anemia, unspecified Reason for Exam Anxiety Result Comment: [facility] Glucose Reference Range is dependent on time and content of last meal. Glucose of more than 200 mg/dL in a nonstressed, ambulatory subject supports the diagnosis of Diabetes Mellitus. ADA recommended reference range Performed By: #### C USUP #### [facility] [address] [place] [id number] [place] Potassium [Moles/Vol] 3.9 mmol/L Normal 3.5-5.1 [facility] Comment on above: Order Comment: Reaso n for Exam Upper abdominal pain;History of pancreatitis Reason for Exam Upper abdominal pain Reason for Exam Vitamin B12 deficiency anemia, unspecified Reason for Exam Anxiety Performed By: #### C USUP #### [facility] [address] [place] [id number] [place] Protein [Mass/Vol] 6.2 g/dL Normal 6.1-7.9 [facility] Comment on above: Order Comment: Reaso n for Exam Upper abdominal pain;History of pancreatitis Reason for Exam Upper abdominal pain Reason for Exam Vitamin B12 deficiency anemia, unspecified Reason for Exam Anxiety Performed By: #### C USUP #### [facility] [address] [place] [id number] [place] Sodium [Moles/Vol] 138 mmol/L Normal 136-146 [facility] Comment on above: Order Comment: Reaso n for Exam Upper abdominal pain;History of pancreatitis Reason for Exam Upper abdominal pain Reason for Exam Vitamin B12 deficiency anemia, unspecified Reason for Exam Anxiety Performed By: #### C USUP #### [facility] [address] [place] [id number] [place] Urea nitrogen [Mass/Vol] 5 mg/dL Low 9-23 [facility] Comment on above: Order Comment: Reaso n for Exam Upper abdominal pain;History of pancreatitis Reason for Exam Upper abdominal pain Reason for Exam Vitamin B12 deficiency anemia, unspecified Reason for Exam Anxiety Performed By: #### C USUP #### [facility] [address] [place] [id number] [place] Creatinine and Glomerular fi ltration rate.predicted panel (S/P/Bld)Ordered By: Rufina Ruiz on 07-20-2022 Creatinine [Mass/Vol] 0.64 mg/dL 0.44-1.03 [facility] Eosinophils Auto (Bld) [#/Vo l]Ordered By: Rufina Ruiz on 07-20-2022 Eosinophils (Bld) [#/Vol] 0.3 10*3/uL 0.0-0.45 [facility] Eosinophils/100 WBC Auto (Bl d)Ordered By: Rufina Ruiz on 07-20-2022 Eosinophils/100 WBC (Bld) 3.0 % . [facility] Erythrocyte distribution wid th Auto (RBC) [Ratio]Ordered By: Rufina Ruiz on 07-20-2022 Erythrocyte distribution wid th (RBC) [Ratio] 14.5 % 11.9-15.3 [facility] Estimated glomerular filtrat ion rate (GFR) non- AmericanOrdered By: Rufina Ruiz on 07-20-2022 GFR/1.73 sq M.predicted coreen g non-blacks MDRD (S/P/Bld) [Vol rate/Area] > 60 mL/Min [facility] Globulin Calc (S) [Mass/Vol] Ordered By: Rufina Ruiz on 07-20-2022 Globulin (S) [Mass/Vol] 2.4 g/dL [facility] Hematocrit Auto (Bld) [Volum e fraction]Ordered By: Rufina Ruiz on 07-20-2022 Hematocrit (Bld) [Volume fraction] 40.8 % 3 4.0-46.4 [facility] Hemoglobin [Mass/volume] in BloodOrdered By: Rufina Ruiz on 07-20-2022 Hemoglobin (Bld) [Mass/Vol] 13.4 g/dL 11.8-15. 4 [facility] Laboratory - Chemistry and C hemistry - challengeOrdered By: Rufina Ruiz on 07-20-2022 Cobalamin (Vitamin B12) [Mass/Vol] 137 pg/mL 180-914 [facility] Lipase [Catalytic activity/Vol] 53.0 U/L 22-5 1 [facility] Leukocytes [#/volume] correc zakia for nucleated erythrocytes in Blood by Automated counOrdered By: Rufina Ruiz on 07-20-2022 WBC corrected for nucl RBC A uto (Bld) [#/Vol] 8.5 10*3/uL 3.8-11.6 [facility] Lipaseon 07-20-2022 Lipase [Catalytic activity/Vol] 53.0 U/L High 22-5 1 [facility] Comment on above: Order Comment: Reaso n for Exam Upper abdominal pain;History of pancreatitis Reason for Exam Upper abdominal pain Reason for Exam Vitamin B12 deficiency anemia, unspecified Reason for Exam Anxiety Performed By: #### C USUP #### [facility] [address] [place] [id number] [facility] Lipid Panelon 07-20-2022 Cholesterol [Mass/Vol] 183 mg/dL Normal 140-200 [facility] Comment on above: Order Comment: Reaso n for Exam Upper abdominal pain;History of pancreatitis Reason for Exam Upper abdominal pain Reason for Exam Vitamin B12 deficiency anemia, unspecified Reason for Exam Anxiety Result Comment: Chol less than 200 mg/dl low risk Chol 201-239 mg/dl borderline risk Chol 240 mg/dl and greater high risk Performed By: #### C USUP #### [facility] [address] [place] [phone] [facility] Cholesterol in HDL [Mass/Vol] 53 mg/dL Normal 35-85 [facility] Comment on above: Order Comment: Reaso n for Exam Upper abdominal pain;History of pancreatitis Reason for Exam Upper abdominal pain Reason for Exam Vitamin B12 deficiency anemia, unspecified Reason for Exam Anxiety Result Comment: HDL CHOL ATP-III CLASSIFICATION Cardiovascular Risk HDL > or equal to 60 mg/dL LOW HDL < 40 mg/dL HIGH Performed By: #### C USUP #### [facility] [address] [place] [address] [facility] Cholesterol.total/Cholestero l in HDL [Mass ratio] 3.5 {ratio} Normal <5.0 [facility] Comment on above: Order Comment: Reaso n for Exam Upper abdominal pain;History of pancreatitis Reason for Exam Upper abdominal pain Reason for Exam Vitamin B12 deficiency anemia, unspecified Reason for Exam Anxiety Performed By: #### C USUP #### [facility] [address] [place] [address] [facility] LDL Cholesterol,Calculated 104 mg/dL High 0-100 [facility] Comment on above: Order Comment: Reaso n for Exam Upper abdominal pain;History of pancreatitis Reason for Exam Upper abdominal pain Reason for Exam Vitamin B12 deficiency anemia, unspecified Reason for Exam Anxiety Result Comment: LDL ATP III CLASSIFICATION LDL less than 100 mg/dL Optimal LDL 100-129 mg/dL Near or above optimal LDL 130-159 mg/dL Borderline high LDL 160-189 mg/dL High LDL greater than 189 mg/dL Very high Performed By: #### C USUP #### [facility] [address] Triglyceride w/Reflex 132 mg/dL Normal 35-149 [facility] Comment on above: Order Comment: Reaso n for Exam Upper abdominal pain;History of pancreatitis Reason for Exam Upper abdominal pain Reason for Exam Vitamin B12 deficiency anemia, unspecified Reason for Exam Anxiety Result Comment: TRIG ATP III CLASSIFICATION TRIG less than 150 mg/dL Normal TRIG 150-199 mg/dL Borderline high TRIG 200-500 mg/dL High TRIG greater than 500 mg/dL Very high Standard traceable to the Center for Disease Conrtrol and Prevention (CDC) test method. Performed By: #### C USUP #### [facility] [address] [place] [address] VLDL CHOLESTEROL 26 mg/dL Normal [facility] Comment on above: Order Comment: Reaso n for Exam Upper abdominal pain;History of pancreatitis Reason for Exam Upper abdominal pain Reason for Exam Vitamin B12 deficiency anemia, unspecified Reason for Exam Anxiety Performed By: #### C USUP #### [address] Lymphocytes Auto (Bld) [#/Vo l]Ordered By: Rufina Ruiz on 07-20-2022 Lymphocytes (Bld) [#/Vol] 3.1 10*3/uL 1.00-4.8 [facility] Lymphocytes/100 WBC Auto (Bl d)Ordered By: Rufina Ruiz on 07-20-2022 Lymphocytes/100 WBC (Bld) 36.6 % . [facility] MCH Auto (RBC) [Entitic mass ]Ordered By: Rufina Ruiz on 07-20-2022 MCH (RBC) [Entitic mass] 30.4 pg 24.7-34.3 [facility] MCHC Auto (RBC) [Mass/Vol]Or dered By: Rufina Ruiz on 07-20-2022 MCHC (RBC) [Mass/Vol] 32.8 g/dL 32.0-35.0 [facility] MCV Auto (RBC) [Entitic vol] Ordered By: Rufina uRiz on 07-20-2022 MCV (RBC) [Entitic vol] 92.7 fL 80-100 [facility] Monocytes Auto (Bld) [#/Vol] Ordered By: Rufina Ruiz on 07-20-2022 Monocytes (Bld) [#/Vol] 0.6 10*3/uL 0.0-0.8 [facility] Monocytes/100 WBC Auto (Bld) Ordered By: Rufina Ruiz on 07-20-2022 Monocytes/100 WBC (Bld) 7.0 % . [facility] Neutrophils Auto (Bld) [#/Vo l]Ordered By: Rufina Ruiz on 07-20-2022 Neutrophils (Bld) [#/Vol] 4.4 10*3/uL 1.8-7.7 [facility] Neutrophils/100 WBC Auto (Bl d)Ordered By: Rufina Ruiz on 07-20-2022 Neutrophils/100 WBC (Bld) 52.2 % . [facility] No Panel InformationOrdered By: Rufina Ruiz on 07-20-2022 Estimated GFR () > 60 mL/Min [facility] Comment on above: GFR estimated refere nce range: According to KDOQI guidelines, <60 ml/min/1.73m2 is sufficient to diagnose a patient with chronic kidney disease. Pharmacy Creatinine Clearance (Chem N/A [facility] Nucleated erythrocytes [Pres ence] in Blood by Automated countOrdered By: Rufina Ruiz on 07-20-2022 Nucleated RBC Auto Ql (Bld) 0.2 /100{WBC} 0-0.5 [facility] Platelet mean volume Auto (B ld) [Entitic vol]Ordered By: Rufina Ruiz on 07-20-2022 Platelet mean volume (Bld) [Entitic vol] 10.2 fL 6.3-10.7 [facility] Platelets Auto (Bld) [#/Vol] Ordered By: Rufina Ruiz on 07-20-2022 Platelets (Bld) [#/Vol] 183 10*3/uL 150-450 [facility] Protein [Mass/volume] in Ser um or PlasmaOrdered By: Rufina Ruiz on 07-20-2022 Protein [Mass/Vol] 6.2 g/dL 6.1-7.9 [facility] RBC Auto (Bld) [#/Vol]Ordere d By: Rufina Ruiz on 07-20-2022 RBC (Bld) [#/Vol] 4.40 10*6/uL 3.60-5.00 [facility] Serum or plasma alanine mckeon otransferase measurement without P-5'-P (enzymatic activiOrdered By: Rufina Ruiz on 07-20-2022 ALT No additional P-5'-P [Ca talytic activity/Vol] 10 U/L 10-60 [facility] Serum or plasma albumin/glob ulin mass ratioOrdered By: Rufina Ruiz on 07-20-2022 Albumin/Globulin [Mass ratio] 1.6 {ratio} [facility] Serum or plasma alkaline kamron sphatase measurement (enzymatic activity/volume)Ordered By: Rufina Ruiz on 07-20-2022 ALP [Catalytic activity/Vol] 107 U/L 32-92 [facility] Serum or plasma amylase kunal urement (enzymatic activity/volume)Ordered By: Rufina Ruiz on 07-20-2022 Amylase [Catalytic activity/Vol] 129 U/L 28- 100 [facility] Serum or plasma anion gap de terminationOrdered By: Rufina Ruiz on 07-20-2022 Anion gap [Moles/Vol] 9.5 mmol/L 6.0-15.0 [facility] Serum or plasma aspartate am inotransferase measurement (enzymatic activity/volume)Ordered By: Rufina Ruiz on 07-20-2022 AST [Catalytic activity/Vol] 13 U/L 10-42 [facility] Serum or plasma calcium kunal urement (mass/volume)Ordered By: Rufina Ruiz on 07-20-2022 Calcium [Mass/Vol] 8.7 mg/dL 8.2-10.2 [facility] Serum or plasma chloride chcaorta surement (moles/volume)Ordered By: Rufina Ruiz on 07-20-2022 Chloride [Moles/Vol] 107 mmol/L 95-114 [facility] Serum or plasma glucose kunal urement (mass/volume)Ordered By: Rufina Ruiz on 07-20-2022 Glucose [Mass/Vol] 82 mg/dL 70-100 [facility] Comment on above: ADA recommended refe rence rangeRandom Glucose Reference Range is dependent on time and content of last meal. Glucose of more than 200 mg/dL in a nonstressed, ambulatory subject supports the diagnosis of Diabetes Mellitus. Serum or plasma high density lipoprotein (HDL) cholesterol measurementOrdered By: Rufina Ruiz on 07-20-2022 Cholesterol in HDL [Mass/Vol] 53 mg/dL 35-85 [facility] Comment on above: HDL CHOL ATP-III CLA SSIFICATION Cardiovascular RiskHDL > or equal to 60 mg/dL LOWHDL < 40 mg/dL HIGH Serum or plasma potassium me asurement (moles/volume)Ordered By: Rufina Ruiz on 07-20-2022 Potassium [Moles/Vol] 3.9 mmol/L 3.5-5.1 [facility] Serum or plasma sodium measu rement (moles/volume)Ordered By: Rufina Ruiz on 07-20-2022 Sodium [Moles/Vol] 138 mmol/L 136-146 [facility] Serum or plasma total biliru bin measurement (mass/volume)Ordered By: Rufina Ruiz on 07-20-2022 Bilirubin [Mass/Vol] 0.3 mg/dL 0.3-1.2 [facility] Serum or plasma total carbon dioxide measurement (moles/volume)Ordered By: Rufina Ruiz on 07-20-2022 CO2 [Moles/Vol] 25.4 mmol/L 22.0-30.0 [facility] Serum or plasma total choles terol/high density lipoprotein (HDL) cholesterol mass ratOrdered By: Rufina Ruiz on 07-20-2022 Cholesterol.total/Cholestero l in HDL [Mass ratio] 3.5 {ratio} <5.0 [facility] Serum or plasma urea nitroge n measurement (mass/volume)Ordered By: Rufina Ruiz on 07-20-2022 Urea nitrogen [Mass/Vol] 5 mg/dL 9 [facility] THYROID SCREENon 07-20-2022 Free T4 [Mass/Vol] 0.80 ng/dL Normal 0.61-1.12 [facility] Comment on above: Order Comment: Reaso n for Exam Upper abdominal pain;History of pancreatitis Reason for Exam Upper abdominal pain Reason for Exam Vitamin B12 deficiency anemia, unspecified Reason for Exam Anxiety Performed By: #### C USUP #### [facility] [address] TSH Qn 4.78 m[IU]/L Normal 0.45-5.33 [facility] Comment on above: Order Comment: Reaso n for Exam Upper abdominal pain;History of pancreatitis Reason for Exam Upper abdominal pain Reason for Exam Vitamin B12 deficiency anemia, unspecified Reason for Exam Anxiety Result Comment: PERF ORMED BY: [place] [address] PATHOLOGIST PASSENGER RATE CLERK MARINE WARD M.D. Performed By: #### C USUP #### [facility] [facility] [address] TSH DL <= 0.005 mIU/L QnOrde red By: Rufina Ruiz on 07-20-2022 TSH Qn 4.78 m[IU]/L 0.45-5.33 [facility] Thyroxine (T4) free [Mass/vo lume] in Serum or PlasmaOrdered By: Rufina Ruiz on 07-20-2022 Free T4 [Mass/Vol] 0.80 ng/dL 0.61-1.12 [facility] Triglyceride [Mass/volume] i n Serum or PlasmaOrdered By: Rufina Ruiz on 07-20-2022 Triglyceride [Mass/Vol] 132 mg/dL 35-149 [facility] Comment on above: TRIG ATP III CLASSIF ICATIONTRIG less than 150 mg/dL NormalTRIG 150-199 mg/dL Borderline highTRIG 200-500 mg/dL High TRIG greater than 500 mg/dL Very highStandard traceable to the Center for Disease Conrtrol and Prevention (CDC) test method. Urine Cultureon 07-20-2022 Bacteria identified Cx Nom (U) Reason for Exam Upper abdominal pain;History of pancreatitis Urine ORGANISM: Escherichia coli (O:ESCCOL) [place] Count >100,000 Aerobic [place] Charge (NMIC56) SUSCEPTIBILITY ORGANISM: O:ESCCOL ANTIBIOTIC INTERPRETATION [place] Amikacin S <16 Amoxacillin/K Clavulanate S <8 Ampicillin R >16 Ampicillin/Sulbactam I 1616/8 Aztreonam S <4 Cefazolin S <2 Cefepime S <2 Ceftazidime S <1 Ceftazidime/Avibactam S <4 Ceftolozane/Tazobactam S <2 Ceftriaxone S <1 Cefuroxime S 8 Ciprofloxacin S <0.25 Ertapenem S <0.5 Gentamicin S <2 Levofloxacin S <0.5 Meropenem S <1 Meropenem/Vaborbactam S <2 Nitrofurantoin R >64 Piperacillin/Tazobactam S <8 Tetracycline S <4 Tigecycline S <2 Tobramycin S <2 Trimethoprim/Sulfamethoxazole S <0.5 S = SUSCEPTIBLE I = INTERMEDIATE R = RESISTANT BLANK = DATA NOT AVAILABLE, OR DRUG NOT ADVISABLE OR TESTED R* = RESISTANCE DUE TO EXTENDED SPECTRUM BETA-LACTAMASES ESBL = EXTENDED SPECTRUM BETA-LACTAMASE TFG = THYMIDINE-DEPENDENT STRAIN WES = BETA-LACTAMASE POSITIVE IB = INDUCIBLE BETA-LACTAMASE. APPEARS IN PLACE OF 'S' WITH SPECIES KNOWN TO POSSESS INDUCIBLE BETA-LACTAMASES. POTENTIALLY THEY MAY BECOME RESISTANT TO ALL B-LACTAM DRUGS. PERFORMED BY: [place] [address] PATHOLOGIST PASSENGER RATE CLERK MARINE WARD M.D. Normal [facility] Comment on above: Performed By: #### C USUP #### [address] Urine culture routineOrdered By: Rufina Ruiz on 07-20-2022 Bacteria identified Cx Nom (U) Escherichia coli [facility] Bacteria identified Cx Nom (U) Escherichia coli [facility] Vitamin B12on 07-20-2022 Cobalamin (Vitamin B12) [Mass/Vol] 137 pg/mL Low 180-914 [facility] Comment on above: Order Comment: Reaso n for Exam Upper abdominal pain;History of pancreatitis Reason for Exam Upper abdominal pain Reason for Exam Vitamin B12 deficiency anemia, unspecified Reason for Exam Anxiety Performed By: #### C USUP #### [facility] [address] WBC Auto (Bld) [#/Vol]Ordere d By: Rufina Ruiz on 07-20-2022 WBC (Bld) [#/Vol] 8.5 10*3/uL 3.8-11.6 [facility] CBC AUTO DIFFon 06-24-2022 BASO # 0.0 103/ul Normal 0.0-0.1 [facility] Comment on above: Performed By: #### C BC #### [facility] [address] [place] [address] Dr. Ruthie Pan Basophils/100 WBC (Bld) 0.5 % Normal 0.2-2.0 [facility] Comment on above: Performed By: #### C BC #### [facility] [address] [place] [address] Dr. Ruthie Pan EO # 0.1 103/ul Normal 0.0-0.7 [facility] Comment on above: Performed By: #### C BC #### [facility] [address] [place] [address] Dr. Ruthie Pan Eosinophils/100 WBC (Bld) 1.6 % Normal 0.9-7.0 [facility] Comment on above: Performed By: #### C BC #### [facility] [address] [place] [address] Dr. Ruthie Pan Erythrocyte distribution wid th (RBC) [Ratio] 13.2 % Normal 11.0-15.0 The [facility] pital Comment on above: Performed By: #### C BC #### [facility] [address] [address] [address] Ruthie Pan Hematocrit (Bld) [Volume fraction] 41.5 % Normal 3 6.0-48.0 [facility] Comment on above: Performed By: #### C BC #### [facility] [address] [place] [address] Dr. Ruthie Pan Hemoglobin (Bld) [Mass/Vol] 13.9 g/dL Normal 12.0-16. 0 [facility] Comment on above: Performed By: #### C BC #### [facility] [address] [place] [address] Dr. Ruthie Pan IG # 0.02 10e3/ul Normal 0.00-0.03 [facility] Comment on above: Performed By: #### C BC #### [facility] [address] [place] [address] Dr. Ruthie Pan IG % 0.2 % Normal 0.0-0.5 [facility] Comment on above: Performed By: #### C BC #### [facility] [address] [place] [address] Dr. Ruthie Pan LYMPH # 2.5 103/ul Normal 1.2-3.8 [facility] Comment on above: Performed By: #### C BC #### [facility] [address] [place] [address] Dr. Ruthie Pan Lymphocytes/100 WBC (Bld) 28.8 % Normal 20.5-60.0 [facility] Comment on above: Performed By: #### C BC #### [facility] [address] [place] [address] Dr. Ruthie Pan MANUAL DIFF REQ NO Normal [facility] Comment on above: Performed By: #### C BC #### [facility] [address] [place] [address] Dr. Ruthie Pan MCH (RBC) [Entitic mass] 30.3 pg Normal 26.7-34.0 [facility] Comment on above: Performed By: #### C BC #### [facility] [address] [address] [address] Ruthie Pan MCHC (RBC) [Mass/Vol] 33.5 g/dL Normal 29.9-35.2 [facility] Comment on above: Performed By: #### C BC #### [facility] [address] [place] [address] Dr. Ruthie Pan MCV (RBC) [Entitic vol] 90.6 fL Normal 81.0-99.0 [facility] Comment on above: Performed By: #### C BC #### [facility] [address] [place] [address] Dr. Ruthie Pan MONO # 0.6 103/ul Normal 0.3-0.8 [facility] Comment on above: Performed By: #### C BC #### [facility] [address] [place] [address] Dr. Ruthie Pan Monocytes/100 WBC (Bld) 6.4 % Normal 1.7-12.0 [facility] Comment on above: Performed By: #### C BC #### [facility] [address] [place] [address] Dr. Ruthie Pan NEUT # 5.5 103/ul Normal 1.4-6.5 [facility] [place] [facility] Comment on above: Performed By: #### C BC #### [facility] [address] [place] [address] Dr. Ruthie Pan Neutrophils/100 WBC (Bld) 62.5 % Normal 43.0-75.0 [facility] Comment on above: Performed By: #### C BC #### [facility] [address] [place] [address] Dr. Ruthie Pan Platelet mean volume (Bld) [ Entitic vol] 11.1 fL Normal 9.5-13.5 [facility] pitmt Comment on above: Performed By: #### C BC #### [facility] [address] [place] [address] Dr. Ruthie Pan PLT 150 103/ul Normal 150-450 [facility] [place] [facility] ospital Comment on above: Performed By: #### C BC #### [facility] [address] [place], [place] [address] Dr. Ruthie Pan RBC 4.58 106/ul Normal 4.20-5.40 [facility] Comment on above: Performed By: #### C BC #### [facility] [address] [place], [place] [address] Dr. Ruthie Pan WBC 8.8 103/ul Normal 4.0-11.0 [facility] [place] [facility] ospital Comment on above: Performed By: #### C BC #### [facility] [address] [place], [place] [address] Dr. Ruthie Pan Covid-19 PCR ([facility])on 06-11 SARS-CoV-2 (COVID-19) RNA MICHAEL+probe Ql (Unsp spec) Not detected Normal NOT DETECTED [facility] Comment on above: Result Comment: This test is not yet approved or cleared by the [place] FDA. When there are no FDA-approved or cleared tests available, and other criteria are met, FDA can make tests available under an emergency access mechanism called an Emergency Use Authorization (EUA). The EUA for this test is supported by the Pharmaceutical Service Representative of Health and Human Service's (HHS's) declaration that circumstances exist to justify the emergency use of in vitro diagnostics for the detection and/or diagnosis of the virus that causes COVID-19. This EUA will remain in effect (meaning this test can be used) for the duration of the COVID-19 declaration justifying emergency of IVDs, unless it is terminated or revoked by FDA (after which the test may no longer be used). When diagnostic testing is negative, the possibility of a false negative should be considered in the context of a patient's recent exposures and the presence of clinical signs and symptoms consistent with SARS-CoV-2. Performed By: #### C VDTBH ####[facility] [address] [place], [place] [address]UsDr. Ruthie Pan INFLUENZA A AND B AGon 06-24 INFLUANEGH SEE BELOW Normal [facility] [place] [facility] ospital Comment on above: Result Comment: Nega tive for Flu A protein angiten. Infection due to Flu A cannot be ruled out. Flu A angiten in the sample may be below the detection limit of the test. Performed By: #### I NFLUAB ####[facility] [address] [place], [place] [address]Dr. Ruthie Pan INFLUBNEGH SEE BELOW Normal [facility] Comment on above: Result Comment: Nega tive for Flu B protein antigen. Infection due to Flu B cannot be ruled out. Flu B antigen in the sample may be below the detection limit of the test. Performed By: #### I NFLUAB ####[facility] [address] [place], [place] [address]Dr. Ruthie Pan INFLUENZA A AG Negative Normal NEGATIVE SEE COMMENT [facility] Comment on above: Performed By: #### I NFLUAB ####[facility] [address] [place], [place] [address]Dr. Ruthie Pan INFLUENZA B AG Negative Normal NEGATIVE SEE COMMENT [facility] Comment on above: Performed By: #### I NFLUAB ####[facility] Aj[address] [place], [place] [address]Dr. Ruthie Pan INTERNAL CONTROLS Within Normal Limits Normal Wi thin Normal Limits [facility] Comment on above: Performed By: #### I NFLUAB ####[facility] [address] [place], [place] [address]Dr. Ruthie Pan PROF 14(COMP METB)on 022 Albumin [Mass/Vol] 3.7 g/dL Normal 3.4-5.0 [facility] Comment on above: Performed By: #### C MP ####[facility] [address] [place], [place] [address]DrGideon Pan Albumin/Globulin [Mass ratio] 1.1 {ratio} Normal [facility] Comment on above: Performed By: #### C MP ####[facility] [address] [place], [place] [address]DrGideon Pan ALP [Catalytic activity/Vol] 125 U/L Critically high 46 -116 [facility] Comment on above: Performed By: #### C MP ####[facility] [address] [place], [place] [address]DrGideon Pan ALT [Catalytic activity/Vol] 17 U/L Normal 14-59 [facility] Comment on above: Performed By: #### C MP ####[facility] [address] [place] [address]Dr. Ruthie Pan Anion gap [Moles/Vol] 9.8 mmol/L Normal [facility] Comment on above: Performed By: #### C MP ####[facility] [address] [address]Dr. Ruthie Pan AST [Catalytic activity/Vol] 16 U/L Normal 15-37 [facility] Comment on above: Performed By: #### C MP ####[facility] [address] [address]Dr. Ruthie Pan Bilirubin [Mass/Vol] 0.3 mg/dL Normal 0.2-1.0 [facility] Comment on above: Performed By: #### C MP ####[facility] [address] [place], [place] [address]Dr. Ruthie Pan Calcium [Mass/Vol] 8.7 mg/dL Normal 8.5-10.1 [facility] Comment on above: Performed By: #### C MP ####[facility] Tw[address] [place], [place] [address]Dr. Ruthie Pan Chloride [Moles/Vol] 103 mmol/L Normal 98-107 [facility] Comment on above: Performed By: #### C MP ####[facility] [address] [place], [place] [address]Dr. Ruthie Pan CO2 [Moles/Vol] 28.3 mmol/L Normal 21.0-32.0 The [facility] Comment on above: Performed By: #### C MP ####[facility] L[address] [place], [place] [address]Dr. Ruthie Maxim Creatinine [Mass/Vol] 0.62 mg/dL Normal 0.55-1.02 [facility] Comment on above: Performed By: #### C MP ####[facility] [address] [place] [id number]. Ruthie Maxim EGFR-AF BOTSWANAN >60 Normal >=60 The [facility] Comment on above: Performed By: #### C MP ####[facility] [address] [address]Dr. Ruthie Pan EGFR-NON AF BOTSWANAN >60 Normal >=60 [facility] Comment on above: Performed By: #### C MP ####[facility] [address] [place] [id number]. Ruthie Pan Globulin (S) [Mass/Vol] 3.4 g/dL Normal T [facility] Comment on above: Performed By: #### C MP ####[facility] [address] [place] [address]Dr. Ruthie Pan Glucose [Mass/Vol] 103 mg/dL Normal 74-106 [facility] Comment on above: Performed By: #### C MP ####[facility] [address] [address]Dr. Ruthie Maxim Potassium [Moles/Vol] 3.1 mmol/L Critically low 3.5-5.1 [facility] Comment on above: Performed By: #### C MP ####[facility] Bry[address] [place], [place] [address]Dr. Ruthie Pan Protein [Mass/Vol] 7.1 g/dL Normal 6.4-8.2 [facility] Comment on above: Performed By: #### C MP ####[facility] [address] [place], [place] [address]Dr. Ruthie Maxim Sodium [Moles/Vol] 140 mmol/L Normal 136-145 The [facility] Comment on above: Performed By: #### C MP ####[facility] [address] [address]Dr. Ruthie Pan Urea nitrogen [Mass/Vol] 6.0 mg/dL Critically low 7.0-18. 0 [facility] Comment on above: Performed By: #### C MP ####[facility] [address] [address]Dr. Ruthie Pan Urea nitrogen/Creatinine [Mass ratio] 9.7 mg/mg Normal The [facility] Comment on above: Performed By: #### C MP ####[facility] [address] [place] [address]Dr. Ruthie Pan Urine Cultureon 06-09-2022 Bacteria identified Cx Nom (U) Reason for Exam Hematuria, unspecified type;Pelvic cramping Urine ORGANISM: Escherichia coli (O:ESCCOL) [place] Count >100,000 Aerobic [place] Charge (NUC86) SUSCEPTIBILITY ORGANISM: O:ESCCOL ANTIBIOTIC INTERPRETATION [place] Amikacin S <16 Ampicillin R >16 Ampicillin/Sulbactam S <8 Aztreonam S <4 Cefazolin S <2 Cefepime S <2 Ceftazidime S <1 Ceftazidime/Avibactam S <8 Ceftriaxone S <1 Ciprofloxacin S <1 Ertapenem S <0.5 Gentamicin S <4 Levofloxacin S <2 Meropenem S <1 Nitrofurantoin R >64 Piperacillin/Tazobactam S <16 Tetracycline S <4 Tigecycline S <2 Tobramycin S <4 Trimethoprim/Sulfamethoxazole S <2 S = SUSCEPTIBLE I = INTERMEDIATE R = RESISTANT BLANK = DATA NOT AVAILABLE, OR DRUG NOT ADVISABLE OR TESTED R* = RESISTANCE DUE TO EXTENDED SPECTRUM BETA-LACTAMASES ESBL = EXTENDED SPECTRUM BETA-LACTAMASE TFG = THYMIDINE-DEPENDENT STRAIN WES = BETA-LACTAMASE POSITIVE IB = INDUCIBLE BETA-LACTAMASE. APPEARS IN PLACE OF 'S' WITH SPECIES KNOWN TO POSSESS INDUCIBLE BETA-LACTAMASES. POTENTIALLY THEY MAY BECOME RESISTANT TO ALL B-LACTAM DRUGS. PERFORMED BY: [place] [address] PATHOLOGIST PASSENGER RATE CLERK MARINE WARD M.D. Normal [facility] Comment on above: Performed By: #### C USUP #### [address] Urine culture routineOrdered By: Rufina Ruiz on 06-09-2022 Bacteria identified Cx Nom (U) Escherichia coli [facility] Urine culture routineOrdered By: Rufina Ruiz on 04-16-2022 Bacteria identified Cx Nom (U) Escherichia coli [facility] AMYLASEon 11-24-2021 Amylase [Catalytic activity/Vol] 85 U/L Normal 25- 115 [facility] Comment on above: Performed By: #### C ROSALIA INFANTE LIPA #### [facility] [address] [place], [place] [address] Dr. Ruthie Pan CBC AUTO DIFFon 11-24-2021 BASO # 0.0 103/ul Normal 0.0-0.1 [facility] Comment on above: Performed By: #### C BC ####[facility] [address] [place] [address]DrGideon Pan Basophils/100 WBC (Bld) 0.4 % Normal 0.2-2.0 [facility] Comment on above: Performed By: #### C BC ####[facility] [address] [place] [address]DrGideon Pan EO # 0.2 103/ul Normal 0.0-0.7 [facility] Comment on above: Performed By: #### C BC ####[facility] [address] [place] [id number] Pan Eosinophils/100 WBC (Bld) 1.6 % Normal 0.9-7.0 [facility] Comment on above: Performed By: #### C BC ####[facility] [address] [place] [id number] Pan Erythrocyte distribution wid th (RBC) [Ratio] 13.8 % Normal 11.0-15.0 [facility] Comment on above: Performed By: #### C BC ####[facility] [address] [place] [id number] Pan Hematocrit (Bld) [Volume fraction] 38.5 % Normal 3 6.0-48.0 [facility] Comment on above: Performed By: #### C BC ####[facility] [address] [place] [id number] Pan Hemoglobin (Bld) [Mass/Vol] 12.3 g/dL Normal 12.0-16. 0 [facility] Comment on above: Performed By: #### C BC ####[facility] [address] [place] [address]DrGideon Pan IG # 0.04 10e3/ul Critically high 0.00-0.03 [facility] Comment on above: Performed By: #### C BC ####[facility] [address] [place] [address]DrGideon Pan IG % 0.4 % Normal 0.0-0.5 [facility] [place] [facility] Comment on above: Performed By: #### C BC ####[facility] [address] [place], [place] [address]DrGideon Pan LYMPH # 3.4 103/ul Normal 1.2-3.8 [facility] Comment on above: Performed By: #### C BC ####[facility] [address] [place] [address]DrGideon Pan Lymphocytes/100 WBC (Bld) 31.2 % Normal 20.5-60.0 [facility] Comment on above: Performed By: #### C BC ####[facility] [address] [place], [place] [address]DrGideon Pan MANUAL DIFF REQ NO Normal [facility] Comment on above: Performed By: #### C BC ####[facility] [address] [place] [address]DrGideon Pan MCH (RBC) [Entitic mass] 31.1 pg Normal 26.7-34.0 [facility] Comment on above: Performed By: #### C BC ####[facility] [address] [place] [id number] Pan MCHC (RBC) [Mass/Vol] 31.9 g/dL Normal 29.9-35.2 [facility] Comment on above: Performed By: #### C BC ####[facility] [address] [place] [id number] Pan MCV (RBC) [Entitic vol] 97.5 fL Normal 81.0-99.0 [facility] Comment on above: Performed By: #### C BC ####[facility] [address] [place] [address]Dr. Ruthie Pan MONO # 0.9 103/ul Critically high 0.3-0.8 [facility] Comment on above: Performed By: #### C BC ####[facility] [address] [place] [address]Dr. Ruthie Maxim Monocytes/100 WBC (Bld) 8.0 % Normal 1.7-12.0 [facility] Comment on above: Performed By: #### C BC ####[facility] [address] [place], [place] [address]Dr. Ruthie Pan NEUT # 6.4 103/ul Normal 1.4-6.5 [facility] [place] [facility]ital Comment on above: Performed By: #### C BC ####[facility] [address] [place], [place] [address]Dr. Ruthie Maxim Neutrophils/100 WBC (Bld) 58.4 % Normal 43.0-75.0 [facility] Comment on above: Performed By: #### C BC ####[facility] I[address] [place], [place] [address]Dr. Ruthie Pan Platelet mean volume (Bld) [ Entitic vol] 10.7 fL Normal 9.5-13.5 The [facility] Comment on above: Performed By: #### C BC ####[facility] [address] [place], [place] [address]Dr. Ruthie Maxim PLT 207 103/ul Normal 150-450 [facility] [place] [facility] Comment on above: Performed By: #### C BC ####[facility] [address] [place], [place] [address]Dr. Ruthie Pan RBC 3.95 106/ul Critically low 4.20-5.40 [facility] Comment on above: Performed By: #### C BC ####[facility] [address] [place], [place] [address]Dr. Ruthie Pan WBC 11.0 103/ul Normal 4.0-11.0 [facility] Comment on above: Performed By: #### C BC ####[facility] [address] [place], [place] [address]PqDr. Ruthie Pan CT ABD/PELV W CONon 11-25-19 CT ABD/PELV W CON EXAMINATION: CT ABD/ PELV W CON HISTORY: GENERALIZED ABDOMINAL PAIN. COMPARISON: Abdominal CT 08/01/2018. TECHNIQUE: CT abdomen and pelvis with IV contrast. Dose reduction techniques were achieved by using automated exposure control and/or adjustment of mA and/or kV according to patient size and/or use of iterative reconstruction technique. FINDINGS: Lung bases are clear. In the abdomen, there is no adrenal mass or retroperitoneal lymphadenopathy. No evidence of obstructive uropathy. Incidental right renal cyst. No biliary or pancreatic ductal dilatation. Aortic atherosclerosis without aneurysm. No bowel obstruction or inflammation. No pneumatosis or pneumoperitoneum. Normal appendix. No significant diverticular disease. No pelvic adenopathy or ascites. Uterus has been removed. Ovaries are grossly normal size for age. Bladder is normal. No suspicious lytic or sclerotic osseous lesions. IMPRESSION: No acute abnormality or significant interval change. Electronically authenticated by: LUDIN ANGELES Date: 2021-11-24 03:59 Normal [facility] l LACTATE/LACTIC ACIDon 2021 Lactate [Moles/Vol] 1.0 mmol/L Normal 0.4-1.9 [facility] Comment on above: Performed By: #### L ACT #### [facility] [address] [place] [address] [address] Ruthie Pan LIPASEon 11-24-2021 Lipase [Catalytic activity/Vol] 123.0 U/L Normal 73.0 -393.0 [facility] Comment on above: Performed By: #### C ROSALIA INFANTE LIPA #### [facility] [address] [place], [place] [address] Dr. Ruthie Pan PROF 14(COMP METB)on 022 Albumin [Mass/Vol] 3.3 g/dL Critically low 3.4-5.0 [facility] [place] [facility] Comment on above: Performed By: #### C NARESH ROSALIA LIPA #### [facility] [address] [place] [address] [address] Ruthie Pan Albumin/Globulin [Mass ratio] 1.1 {ratio} Normal [facility] Comment on above: Performed By: #### C MP ROSALIA, LIPA #### [facility] [address] [place] [address] [address] Ruthie Pan ALP [Catalytic activity/Vol] 139 U/L Critically high 46 -116 [facility] Comment on above: Performed By: #### C MP, ROSALIA, LIPA #### [facility] [address] [place] [address] Dr. Ruthie Pan ALT [Catalytic activity/Vol] 17 U/L Normal 14-59 [facility] Comment on above: Performed By: #### C MP ROSALIA, LIPA #### [facility] [address] [place] [address] Dr. Ruthie Pan Anion gap [Moles/Vol] 10.5 mmol/L Normal [facility] Comment on above: Performed By: #### C MP, ROSALIA, LIPA #### [facility] [address] [place] [address] Dr. Ruthie Pan AST [Catalytic activity/Vol] 14 U/L Critically low 15- 37 [facility] Comment on above: Performed By: #### C MP, ROSALIA, LIPA #### [facility] [address] [place] [address] Dr. Ruthie Pan Bilirubin [Mass/Vol] 0.2 mg/dL Normal 0.2-1.0 [facility] Comment on above: Performed By: #### C MP, ROSALIA, LIPA #### [facility] [address] [place] [address] Dr. Ruthie Pan Calcium [Mass/Vol] 8.3 mg/dL Critically low 8.5-10.1 [facility] Comment on above: Performed By: #### C MP, ROSALIA, LIPA #### [facility] [address] [place] [address] Dr. Ruthie Pan Chloride [Moles/Vol] 103 mmol/L Normal 98-107 [facility] Comment on above: Performed By: #### C MP, ROSALIA, LIPA #### [facility] [address] [address] [address] Ruthie Pan CO2 [Moles/Vol] 27.9 mmol/L Normal 21.0-32.0 [facility] Comment on above: Performed By: #### C MP, ROSALIA, LIPA #### [facility] [address] [address] [address] Ruthie Pan Creatinine [Mass/Vol] 0.71 mg/dL Normal 0.55-1.02 [facility] Comment on above: Performed By: #### C MP, ROSALIA, LIPA #### [facility] [address] [address] [address] Ruthie Pan EGFR-AF BOTSWANAN >60 Normal >=60 [facility] Comment on above: Performed By: #### C MP, ROSALIA, LIPA #### [facility] [address] [address] [address] Ruthie Pan EGFR-NON AF BOTSWANAN >60 Normal >=60 [facility] Comment on above: Performed By: #### C MP, ROSALIA, LIPA #### [facility] [address] [address] [address] Ruthie Pan Globulin (S) [Mass/Vol] 3.1 g/dL Normal [facility] Comment on above: Performed By: #### C MP, ROSALIA, LIPA #### [facility] [address] [address] [address] Ruthie Pan Glucose [Mass/Vol] 113 mg/dL Critically high 74-106 [facility] Comment on above: Performed By: #### C MP, ROSALIA, LIPA #### [facility] [address] [address] [address] Ruthie Pan Potassium [Moles/Vol] 3.4 mmol/L Critically low 3.5-5.1 [facility] Comment on above: Performed By: #### C MP, ROSALIA, LIPA #### [facility] [address] [address] [address] Ruthie Pan Protein [Mass/Vol] 6.4 g/dL Normal 6.4-8.2 [facility] Comment on above: Performed By: #### C ROSALIA INFANTE LIPA #### [facility] [address] [place] [address] Dr. Ruthie Pan Sodium [Moles/Vol] 138 mmol/L Normal 136-145 [facility] Comment on above: Performed By: #### C ROSALIA INFANTE LIPA #### [facility] [address] [place] [address] Dr. Ruthie Pan Urea nitrogen [Mass/Vol] 10.0 mg/dL Normal 7.0-18.0 [facility] Comment on above: Performed By: #### C ROSALIA INFANTE LIPA #### [facility] [address] [place] [address] Dr. Ruthie Pan Urea nitrogen/Creatinine [Mass ratio] 14.1 mg/mg Normal [facility] Comment on above: Performed By: #### C ROSALIA INFANTE LIPA #### [facility] [address] [place] [address] Dr. Ruthie Pan US SINGLE QUAD RT UPPERon US SINGLE QUAD RT UPPER EXAMINATION: US SINGLE QUAD RT UPPER HISTORY: GENERALIZED ABDOMINAL PAIN COMPARISON: No relevant comparison available. FINDINGS: The liver is normal in size, contour and echotexture with no focal mass. Normal hepatopedal flow in the main portal vein with velocity of 32 cm/s. The gallbladder is normal in size. The gallbladder wall measures 1 mm, normal. No pericholecystic fluid, gallbladder sludge or cholelithiasis. Negative sonographic Saldivar sign. The common bile duct measures 1.6 mm. The visualized pancreas is normal in appearance. The right kidney measures 9.6 x 4.8 x 4.0 cm. Along the inferior poles area of anechoic echogenicity measuring 2.3 cm, simple cyst. The cortex measures 1.1 cm thick. IMPRESSION: No acute abnormality Electronically authenticated by: MILE BENITEZ Date: 2021-11-24 07:56 Normal The [facility] XR SHOULDER RT 2V or >on XR SHOULDER RT 2V or > EXAM: XR SHOULDER RT 2V or > HISTORY: Pain COMPARISON: Right shoulder radiographs dated 09/23/2020. TECHNIQUE: 3 views of the right shoulder were obtained. FINDINGS: No acute fracture or dislocation is seen. The right humeral head is well-seated on the glenoid. There is widening of the acromioclavicular joint measuring up to 1.0 cm. The coracoclavicular distance is preserved. An Endobutton device is seen at the lateral aspect of the proximal right humeral shaft. The imaged lungs are clear. IMPRESSION: 1. 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 Electronically authenticated by: Austin VENTURA Date: 2021-11-21 02:37 Normal The [facility] Vital Signs Date Time Vital Sign Value Performing Clinician Facility 07-23-2022 00:20-0500 Diastolic blood pressure 65 mm[Hg] Services [facility] [employer] Work Phone: [facility] 07-23-2022 00:20-0500 Heart rate 89 /min Services [facility] [employer] Work Phone: [facility] 07-23-2022 00:20-0500 Respiratory rate 18 /min Services [facility] Work Phone: [facility] 07-23-2022 00:20-0500 SaO2% (BldA) [Mass fraction] 99 % Services [facility] [employer] Work Phone: [facility] 07-23-2022 00:20-0500 Systolic blood pressure 103 mm[Hg] Services [facility] [employer] Work Phone: [facility] 07-22-2022 19:43-0500 Body height 154.94 cm Services [facility] [employer] Work Phone: [facility] 07-22-2022 19:43-0500 Body temperature 98.4 [degF] Services [employer] Work Phone: [facility] 07-22-2022 19:43-0500 Body weight 64 kg Services [facility] [employer] Work Phone: [facility] 11-23-2021 23:23-0400 Body temperature 98.06 [degF] Venancio Ernesto [facility] 11-23-2021 23:23-0400 Diastolic blood pressure 63 mm[Hg] Venancio Ernesto [facility] 11-23-2021 23:23-0400 Heart rate 81 /min Venancio Ernesto [facility] 11-23-2021 23:23-0400 Respiratory rate 16 /min Venancio Ernesto [facility] 11-23-2021 23:23-0400 SaO2% (BldA) [Mass fraction] 97 % Venancio Ernesto [facility] 11-23-2021 23:23-0400 Systolic blood pressure 102 mm[Hg] Venancio Ernesto [facility] Encounters Encounter Date Encounter Type Care Provider Facility Start: 05-26-2023 End: 05-26-2023 ambulatory DAMIAN JOVEL [facility] Work Phone: Start: 05-26-2023 End: 05-26-2023 Departed Referred [employer]PER[employer]C Rufina Ruiz Work Phone: [facility] Work Phone: Start: 03-19-2023 End: 03-19-2023 ambulatory Rufina Ruiz Facility:[facility] Start: 03-19-2023 End: 03-19-2023 ambulatory [employer]PER[employer]OR-C Rufina Ruiz Work Phone: [facility] Work Phone: Start: 03-19-2023 End: 03-19-2023 Departed Referred [employer] SUPERVISOR-C Rufina Ruiz Work Phone: [facility] Start: 12-08-2022 End: 12-09-2022 ambulatory Adam ERICKSON Facility:[facility] Start: 12-08-2022 End: 12-08-2022 Patient encounter procedure Adam ERICKSON [facility] Start: 11-16-2022 End: 11-16-2022 ambulatory Rufina Ruiz Facility:[facility] Start: 11-16-2022 End: 11-16-2022 ambulatory [employer] SUPER[employer]OR-C Rufina Ruiz Work Phone: [facility] Work Phone: Start: 11-16-2022 End: 11-16-2022 Departed Referred [employer]TERN SUPERVISOR-C Rufina Ruiz Work Phone: [facility] Work Phone: Start: 11-10-2022 ambulatory Adam ERICKSON Facili ty:[facility] Start: 10-27-2022 End: 10-28-2022 ambulatory RUFINA RUIZ Facility:[facility] Start: 10-04-2022 End: 10-04-2022 ambulatory [facility] Facility: Start: 09-21-2022 End: 09-21-2022 ambulatory Rufina Ruiz Facility:[facility] Start: 09-21-2022 End: 09-21-2022 ambulatory NON STAFF [facility] Work Phone: Start: 09-21-2022 End: 09-21-2022 Departed Referred [employer] SUPER[employer]OR-C Rufina Ruiz Work Phone: [facility] Start: 09-01-2022 ambulatory Adam ERICKSON Facility :[facility] Start: 08-31-2022 End: 08-31-2022 ambulatory Rufina Ruiz Facility:[facility] Start: 08-31-2022 End: 08-31-2022 Departed Referred [employer] SUPERVISOR-C Rufina Ruiz Work Phone: [facility] Start: 07-22-2022 End: 07-23-2022 Emergency department patient visit [facility] Facility:[facility] Start: 07-22-2022 End: 07-23-2022 Emergency department patient visit [facility] Work Phone: [facility] Work Phone: Start: 07-21-2022 End: 07-21-2022 ambulatory [facility] Facility:[facility] Start: 07-20-2022 End: 07-20-2022 ambulatory Rufina Ruiz Facility:[facility] Start: 07-20-2022 End: 07-20-2022 ambulatory [employer]PER[employer]OR-C Rufina Ruiz Work Phone: [facility] Work Phone: Start: 07-20-2022 End: 07-20-2022 Departed Referred [employer]TERN SUPERVISOR-C Rufina Ruiz Work Phone: [facility] Start: 06-24-2022 End: 06-24-2022 ambulatory [facility] Facility:[facility] Start: 06-09-2022 End: 06-09-2022 ambulatory Rufina Chewson Facility:[facility] Start: 06-09-2022 End: 06-09-2022 ambulatory [facility] Work Phone: [facility] Work Phone: Start: 06-09-2022 End: 06-09-2022 Departed Referred Services [facility] Work Phone: [facility] Start: 04-14-2022 End: 04-14-2022 ambulatory [facility] Work Phone: [facility] Work Phone: Start: 04-14-2022 End: 04-14-2022 Departed Referred Services [facility] Work Phone: [facility] Start: 04-08-2022 End: 04-09-2022 ambulatory [facility] Facility:[facility] Start: 11-24-2021 End: 11-24-2021 ambulatory [facility] Facility:[facility] Start: 11-23-2021 End: 11-24-2021 Emergency department patient visit Venancio Orozco [facility] Start: 11-21-2021 End: 11-21-2021 ambulatory [facility] Facility:[facility] Start: 11-06-2021 End: 11-06-[address] [facility] Facility: Procedures Date Procedure Procedure Detail Performing Clinician Start: 08-31-2022 Urine culture [employer]PER[employer]C Larissa Ruiz Work Phone: Start: 07-22-2022 Computed tomography of abdomen and pelvis with contrast [employer] SUPER[employer]OR-C Rufina Ruiz Work Phone: Start: 07-22-2022 US scan of gallbladder [employer] SUPERVISOR-C Rufina Ruiz Work Phone: Start: 07-20-2022 Urine culture Services [facility] Work Phone: Start: 06-09-2022 Urine culture FR[employer] PATTERN SUPERVISOR-C Larissa Ruiz Work Phone: Start: 05-30-2021 Arthroscopy of shoulder Venancio Orozco Urine culture Services [facility] Work Phone: Vaginal hysterectomy Venancio knox Plan of Treatment Date Care Activity Detail Author Start: 05-26-2023 Superficial Wound Culture Superficial Wound Culture [facility] Start: 07-22-2022 Computed tomography of abdomen and pelvis with contrast CT abdomen pelvis w con [facility] Start: 07-22-2022 CT Abdomen and Pelvi s W contrast IV [facility] Start: 07-22-2022 US Gallbladder [facility] Start: 07-22-2022 US scan of gallbladder US gall bladd er [facility] Start: 07-20-2022 Bacteria identified in Urine by Culture Urine Culture [facility] Bacteria identified in Urine by Culture [facility] Patient Education Abdominal Pain , Adult ED [facility] Work Phone: Patient referral [facility] Work Phone: Payers Date Payer Category Payer Self-pay [id number] 1975 Unknown [id number] [id number]. 593 1977 Unknown [id number] 2.16.840.1.486134.3.579.2. 593 1977 Unknown [id number] 2.16.840.1.669883.3.579.2. 593 1977 Unknown [id number] 2.16.840.1.264893.3.579.2. 593 1977 Unknown [id number] 2.16.840.1.593834.3.579.2. 593 1977 Unknown [id number] 2.16.840.1.833195.3.579.2. 593 1977 Unknown [id number] 2.16.840.1.037241.3.579.2. 593 1977 Unknown [id number] 2.16.840.1.374747.3.579.2. 727 1977 Unknown [id number] 2.16.840.1.168746.3.579.2. 727 1977 Unknown [id number] 2.16.840.1.941424.3.579.2. 727 1977 Unknown [id number] 2.16.840.1.378743.3.579.2. 727 1977 Unknown [id number] 2.16.840.1.026447.3.579.2. 1259 1957 Medicaid [id number] 1957 Medicaid [id number] Private Health Insurance [facility] [place] [id number] Unknown [id number] 2.16.840.1.253389.3.579.2. 531 Unknown [id number] 2.16.840.1.137390.3.579.2. 531 Unknown [id number] 2.16.840.1.244439.3.579.2. 531 Unknown [id number] 2.16.840.1.770180.3.579.2. 531 Unknown [id number] 2.16.840.1.258152.3.579.2. 531 Unknown [id number] 2.16.840.1.990991.3.579.2. 531 Unknown [id number] 2.16.840.1.149527.3.579.2. 531 Unknown [id number] 2.16.840.1.960974.3.579.2. 531 Social History Date Type Detail Facility Start: 11-11-2020 End: 10-27-2022 Tobacco smoking status Heavy tobacco smoker (finding) [facility] Sex Assigned At Female [facility] Start: 12-16-2020 End: 07-22-2022 Tobacco smoking status NHIS Smoker (finding) [facility] Start: 1975 Sex Assigned At Female F [facility] Tobacco smoking status Never [facility] Medical Equipment Procedure Code Equipment Code Equipment Origin al Text Equipment Identifier Dates FDA Start: 05-30-2021 SHOULDER ARTHROS COPY W/ POSSIBLE REPAIR Michael Torres DO 05/30/21 Non Biological Shoulder R FDA Start: 05-30-2021 Clinical Note 10-27-2022 Note Date & Type Note Facility 10-27-2022 Note Chief Complaint Referral *Recurrent UTI HPI Staff Evaluation requested by Rufina Ruiz [employer] due to recurrent UTI's. Pt is a new pt, never before seen in our office. CT a/p done 07/22/22 + C&S 08/31/22 *E Coli + C&S 07/20/22- *E Coli + C&S 06/09/22 * E Coli + C&S 04/14/22 *E Coli + C&S 11/28/21 *E Cloi UA done 07/22/22 & 07/21/22 Usual UTI symptoms: lower abdominal cramping & pressure. Symptoms usually subside with abx therapy, then return a couple days after finishing script. Denies pain/burning. Visible blood in urine back in August. Pt is a smoker. Denies family Hx of Bladder Cancer. Does have Hx Kidney Stone. 8 months ago. Passes stones on her own. PVR today is 29ml History of Present Illness staff HPI reviewed and agree. Review of Systems PHQ Score Initial Depression Screen Score: 0 no fever, chills, malaise, myalgia. no rash/lesions. no chest pain, palpitations, or SOB. no abdominal pain, nausea, vomiting. no unilateral calf swelling, redness, pain Physical Exam Vitals & Measurements HR: 62(Peripheral) RR: 16 BP: 128/76 HT: 61 in HT: 156 cm WT: 62 kg WT: 136.4 lb BMI: 25.48 General: nontoxic, NAD Mouth: moist mucosa Lungs: normal respiratory effort Cardio: regular rate, good distal perfusion Abdomen: nondistended, no suprapubic distention or tenderness, no CVA tenderness Neurologic: Grossly normal Skin: No rashes or suspicious lesions Assessment/Plan 1. Recurrent UTI (N39.0: Urinary tract infection, site not specified) New patient referred by Rufina Ruiz CNP due to recurrent UTI's. Positive cultures (all E Coli) 08/31/22 07/20/22 06/09/22 04/14/22 11/28/21 Currently taking Zyprexa which can cause UTIs (2% reported per up-to-date) current Smoker has had gross hematuria with UTI sx but never asx gross hematuria most recent UTI 08/31/22 w/ gross hematuria UA in office today not suspicious for UTI current UTI symptoms no UTI frequency every 1-2 mos UTIs started worsening past few years Prior to that averaged UTIs very rarely pt's typical UTI sx include incomplete emptying, lower abdominal cramping and pressure. Symptoms usually subside with abx therapy, then return a couple days after finishing script. hx stones yes immunosuppressed no hysterectomy yes, 2007, still has ovaries proper hygiene habits: wipes front to back every time yes avoids baths/hot tubs yes avoids scented [employer]NA[employer] products yes urinates after sexual activity yes. same sexual partner x 10 yrs PT DOES NOTICE A CONNECTION BTWN INTERCOURSE AND FREQUENCY OF UTIS Today we discussed the following methods to decrease frequency of UTIs: 1) Increase fluids. Aim for at least 2L daily. 2) Ensure bladder emptying fully. PVR today 29 cc. Pt advised to contact our office w all future UTI sx so we can monitor urine cx results, treat appropriately (may require extended course abx), and monitor frequency of infections. Pt advised if develops fever, severe flank pain, vomiting - needs to go to ER. -Will schedule Cysto w/ possible UD. -Start post-coital ABX assuming cystoscopic eval is normal. -Follow up in 3 months with me following cysto/UD The procedure risks, benefits, details, and treatment alternatives have been discussed with the patient. These include bleeding, infection, recurrent scar in over 50%, need for repeat dilation or other procedures, no symptom relief with dilation, among others. Full informed consent has been obtained. Will order Local anesthesia. Cipro sent to [facility]. 2. History of kidney stones (Z87.442: Personal history of urinary calculi) Last stone was 8 months ago. Passes stones on her own without surgical intervention. CT AP w/ contrast 07/22/22 neg for stones. there are symmetric bilateral renal nephrograms, without hydro. Follow-up With When Contact Information DRE ANSARI, Adam [facility]rington, URL [address] [place] [address]- Additional Instructions: cysto/UD Patient Education Urinary Tract Infection, Adult Documentation recorded by the dot [place] accurately reflects the services(s) I performed and decisions made by me. Authenticated by Rufina Treadwell PA-C on 10/27/2022 15:13:59. IMaite, personally scribed for Rufina Treadwell PA-C on 10/27/2022 15:09:51. . Problem List/Past Medical History Ongoing Acute cystitis with hematuria Bipolar disorder Chronic obstructive lung disease History of kidney stones Recurrent UTI Smoker 11-JAN-2014 12:37:00<$> Historical anxiety Depression Headache MIGRAINE Procedure/Surgical History Arthroscopy of shoulder (05/30/2021), Vaginal hysterectomy. Medications albuterol 0.083% Inh Ana Lilia 3 mL, 2.5 mg= 3 mL, NEB, BID FLUoxetine 40 mg Cap, 40 mg= 1 cap(s), Oral, Daily olanzapine 10 mg Tab, 10 mg= 1 tab(s), Oral, Once a day (at bedtime) ropinirole 0.25 mg Tab, 0.25 mg= 1 tab(s), Oral, Daily Vitamin B- (more content not included)... [facility] Comment on above: Result Comment: Elec tronically Signed By: RUFINA TREADWELL PA-C\.br\Date and Time Signed: 10/27/22 15:14 EDT\.br\Electronically Co-Signed By: Maite Langford\.br\Date and Time Co-Signed: 10/27/22 15:10 EDT Hospital Discharge instructions 11-24-2021 Note Date & Type Note Facility 11-24-2021 Hospital Discharg e instructions Patient Education 11/24/2021 00:26:31 Shoulder Pain Shoulder Pain Many things can cause shoulder pain, including: An injury to the shoulder. Overuse of the shoulder. Arthritis. The source of the pain can be: Inflammation. An injury to the shoulder joint. An injury to a tendon, ligament, or bone. Follow these instructions at home: Pay attention to changes in your symptoms. Let your health care provider know about them. Follow these instructions to relieve your pain. If you have a sling: Wear the sling as told by your health care provider. Remove it only as told by your health care provider. Loosen the sling if your fingers tingle, become numb, or turn cold and blue. Keep the sling clean. If the sling is not waterproof: ?Do not let it get wet. Remove it to shower or bathe. Move your arm as little as possible, but keep your hand moving to prevent swelling. Managing pain, stiffness, and swelling If directed, put ice on the painful area: ?Put ice in a plastic bag. ?Place a towel between your skin and the bag. ?Leave the ice on for 20 minutes, 2 3 times per day. Stop applying ice if it does not help with the pain. Squeeze a soft ball or a foam pad as much as possible. This helps to keep the shoulder from swelling. It also helps to strengthen the arm. General instructions Take uzin-cyv-kihhkbr and prescription medicines only as told by your health care provider. Keep all follow-up visits as told by your health care provider. This is important. Contact a health care provider if: Your pain gets worse. Your pain is not relieved with medicines. New pain develops in your arm, hand, or fingers. Get help right away if: Your arm, hand, or fingers: ?Tingle. ?Become numb. ?Become swollen. ?Become painful. ?Turn white or blue. Summary Shoulder pain can be caused by an injury, overuse, or arthritis. Pay attention to changes in your symptoms. Let your health care provider know about them. This condition may be treated with a sling, ice, and pain medicines. Contact your health care provider if the pain gets worse or new pain develops. Get help right away if your arm, hand, or fingers tingle or become numb, swollen, or painful. Keep all follow-up visits as told by your health care provider. This is important. This information is not intended to replace advice given to you by your health care provider. Make sure you discuss any questions you have with your health care provider. Document Released: 04/07/2006 Document Revised: 01/10/2019 Document Reviewed: 01/10/2019 [employer] Patient Education 2020 [employer] Follow Up Care 11/23/2021 23:20:28 With:Cande Hinds Address: [place] [address]- Business (1) When:12/01/2021 only if needed [facility] Evaluation + Plan note 11-23-2021 Note Date & Type Note Facility 11-23-2021 Evaluation + Plan note Extrac zakia from: Title:ED Note Author:Venancio Orozco DO Date :11/23/21 Acute pain of right shoulder (M25.511: Pain in right shoulder) Orders: acetaminophen-oxycodone, 1 tab(s), Tab, Oral, Once, Stop date 11/23/21 23:37:00 EDT, STAT, Start date 11/23/21 23:37:00 EDT Sling Apply XR Shoulder Complete Right [facility] Evaluation note Note Date & Type Note Facility Evaluation note No assessment information availa ble [facility] Work Phone: Hospital course Narrative Note Date & Type Note Facility Hospital course Narrative No data available for this section [facility] Hospital Discharge instructions Note Date & Type Note Facility Hospital Discharge instructions Additional Instructions As we discussed, pain in the upper abdomen such as your pain tonight can be caused by many different things. Your pancreas tests are somewhat abnormal, but not high enough to definitely say this is pancreatitis. No signs of pancreatitis were seen on the CAT scan. Gallbladder ultrasound did not show any stones, but gallbladder problems can happen without stones. Sometimes more testing is needed, chest such as the HIDA test that we talked about tonight. Ulcers and other stomach issues are also a possibility. Endoscopy may be required. I want you to follow-up with your primary care doctor so more testing or referral to a specialist can be arranged if your symptoms are not improving. If there are severe problems, we are happy to see you. Do finish your antibiotics, because your urine culture from the other day did show an infection. [facility] Work Phone: Hospital Discharge instructions Note Date & Type Note Facility Hospital Discharge instructions No data available for this section [facility] Progress note Note Date & Type Note Facility Progress note No data available for this section [facility] Chief Complaint and Reason for Visit Chief Complaint Hematuria, unspecifi ed type Chief Complaint R31.9 Hematuria, unspecified type;Pelvic cramping Chief Complaint R31.9 R10.2 Anxiety Upper abdominal pain Upper abdominal pain; Chief Complaint R31.9 R10.2 Anxiety Upper abdominal pain Upper abdominal pain; Abdominal Pain Chief Complaint Anxiety Upper abdomi nal pain Upper abdominal pain; Abdominal Pain R31.9 Hematuria, unspecified type B12 deficiency Chief Complaint R31.9 Hematuria, uns pecified type E53.8 B12 deficiency Chief Complaint Bipolar disorder Res tless leg syndrome Tobacco use Chief Complaint E53.8 G25.81 F31.9 Z 72.0 Advance Directives Advance Directive Response Recorded Date/ Time Advance Directives No May 2:03am Advance Directive Response Recorded Date/ Time Advance Directives No May 1:03am Summary Purpose Family History No Family History Records FoundNo Family History Records FoundNo Family History Records FoundNo Family History Records Found Additional Source Comments Care Teams (unrecognized sec tion and content) Team Status: Inactive Member Role Status Dates Services [facility] Primary Care Prov ider, Family Provider Active ZANE Driscoll Attending Provide r Active Team Status: Active Member Role Status Dates Services Family [facility] Family Provider Active Services Family [facility] Primary Care Provider Active Team Status: Inactive Member Role Status Dates Services [facility] Family Provider Active ZANE Driscoll Attending Provide r Active Team Status: Active Member Role Status Dates Services [facility] Family Provider Active Team Status: Inactive Member Role Status Dates Services [facility] Primary Care Provider, Family P rovider Active Salvador Maier Jr, MD Emergency Provider Active Team Status: Inactive Member Role Status Dates Services Family [facility] Family Provider Active ZANE Driscoll Attending Provide r Active NON STAFF Primary Care Provider Active Team Status: Inactive Member Role Status Dates Services [facility] Family Provider Active Damian Jovel DPM Attending Provider Active Goals (unrecognized section and content) Goals may be documented in a n alternate section INFORMATION SOURCE (unrecogn ized section and content) DATE CREATED AUTHOR 10/05/2022 [facility] DATE CREATED AUTHOR AUTHOR'S ORGANIZ ATION 12/18/2022 [facility] DATE CREATED AUTHOR AUTHOR'S ORGANIZ ATION 05/28/2023 [facility] DATE CREATED AUTHOR AUTHOR'S ORGANIZ ATION 05/30/2023 [facility] FOR RECORDS PERTAINING TO PATIENTS WHO ARE OR HAVE BEEN ENROLLED IN A CHEMICAL DEPENDENCY/SUBSTANCEABUSE PROGRAM, SOME INFORMATION MAY BE OMITTED. This clinical summary was aggregated from multiple sources. Caution should be exercised in using it in the provision of clinical care. This summary normalizes information from multiple sources, and as a consequence, information in this document may materially change the coding, format and clinical context of patient data. In addition, data may be omitted in some cases. CLINICAL DECISIONS SHOULD BE BASED ON THE PRIMARY CLINICAL RECORDS. [employer] provides no warranty or guarantee of the accuracy or completeness of information in this document.
== END 2023-05-24 11:34 | disposition home or self-care (01) ==
PROVIDERS: Emergency Provider Emergency Medicine
DX: M79.674 Pain in right toe(s) (principal)
CPT/HCPCS: 73630; 99283

== ENCOUNTER 2023-06-05 23:25 | Emergency (ER) | payer OTHER, MEDICAID, SELFPAY ==
[2023-06-05 23:38] VITALS: BP 121/70; PULSE 71; RESP 16; TEMP 36.7; O2SAT 98; BMI 22.7
[2023-06-05 23:51] VITALS: RESP 16; O2SAT 98
--- NOTE | 2023-06-06 00:11 | ED_ITS ---
HPI - General Adult General Chief complaint: Nausea/Vomiting/Diarrhea Stated complaint: headache vomiting Time Seen by Provider: 06/05/23 23:34 Source: patient Mode of arrival: walk-in Limitations: no limitations History of Present Illness HPI narrative: Patient developed achiness, nausea and then vomited starting yesterday. She then developed a headache. No fever or chills. No abdominal pain. Has a mild cough. S he said that the headache feels like a sickness headache, not like my migraines . She took a negative covid test at home. She told me that she is hoping that if the nausea if better she can keep down liquids and meds and then her headache will go away. Related Data Home Medications Medication Instructions Recorded Confirmed albuterol sulfate 2.5 mg/3 mL 2.5 mg inhalation Q6H PRN 06/05/23 06/05/23 (0.083 %) solution for nebulization shortness of breath or wheezing fluticasone 250 mcg-salmeterol 50 1 inh inhalation BID 06/05/23 06/05/23 mcg/dose blistr powdr for inhalation (Advair Diskus) tizanidine 2 mg tablet 2 mg PO Q12H 06/05/23 06/05/23 Previous Rx's Medication Instructions Recorded acetaminophen 300 mg-codeine 30 mg 1 tab PO Q6H PRN pain #20 tabs 05/24/23 tablet cephalexin 500 mg capsule 500 mg PO QID 10 days #40 caps 05/24/23 ondansetron 4 mg disintegrating 4 mg PO Q6H PRN nausea and 06/06/23 tablet vomiting #20 tabs Allergies Allergy/AdvReac Type Severity Reaction Status Date / Time aspirin Allergy Severe Verified 06/05/23 23:42 haloperidol [From Haldol] Allergy Severe Verified 06/05/23 23:42 hydroxyzine [From Vistaril] Allergy Severe Verified 06/05/23 23:42 ketorolac [From Toradol] Allergy Severe Verified 06/05/23 23:42 magnesium sulfate Allergy Severe Verified 06/05/23 23:42 naproxen [From Anaprox] Allergy Severe Verified 06/05/23 23:42 PFSH PFSH Social History Smoking status: Current every day smoker Exam Narrative Exam Narrative: Nurses notes and vital signs reviewed and patient is not hypoxic. afebrile General: Well-appearing and in no apparent distress. Skin: Warm, dry, no pallor noted. No rash. Head: Normocephalic, atraumatic. Neck: Supple, non-tender. no meningismus Eye: Pupils are equal, round and EOMI. No scleral icterus. no nystagmus Ears, Nose, Mouth, and Throat: TM are clear, no nasal mucosal hypertrophy. Oral mucosa is moist, no posterior oropharynx erythema, uvula is mid-line Cardiovascular: Regular Rate and Rhythm without murmur, gallop or rub. Respiratory: No accessory muscle use or respiratory distress. Lungs are clear to auscultation, no wheezing, rales or rhonchi Musculoskeletal: normal ROM GI: Abdomen is soft, non-distended. Normal bowel sounds. No tenderness to palpation. No rebound, guarding, or rigidity noted. Neurological: A&O x4. No cranial nerve dysfunction observed. No truncal ataxia. Moves all extremities. Sensation intact. Psychiatric: Cooperative and interactive. Normal mood and affect. Constitutional Vital Signs, click to edit/add: Last Vital Signs Temp 98.1 F 06/05/23 23:38 Pulse 71 06/05/23 23:38 Resp 16 06/05/23 23:51 BP 121/70 06/05/23 23:38 Pulse Ox 98 06/05/23 23:51 O2 Del Method Room Air 06/05/23 23:51 Course Vital Signs Vital signs: Vital Signs Temperature 98.1 F 06/05/23 23:38 Pulse Rate 71 06/05/23 23:38 Respiratory Rate 16 06/05/23 23:38 Blood Pressure 121/70 06/05/23 23:38 Pulse Oximetry 98 06/05/23 23:38 Oxygen Delivery Method Room Air 06/05/23 23:38 Temperature 98.1 F 06/05/23 23:38 Pulse Rate 71 06/05/23 23:38 Respiratory Rate 16 06/05/23 23:51 Blood Pressure 121/70 06/05/23 23:38 Pulse Oximetry 98 06/05/23 23:51 Oxygen Delivery Method Room Air 06/05/23 23:51 Medical Decision Making MDM Narrative Medical decision making narrative: patient just wants some nausea medicine and does not want additional testing. She was given oral dissolvable Zofran and discharged home with a prescription for additional Zofran to take at home. We discussed clear liquid diet until her symptoms improve. Discharge Plan Discharge Chief Complaint: Nausea/Vomiting/Diarrhea Clinical Impression: Headache, Nausea & vomiting Patient Disposition: Home, Self-Care Time of Disposition Decision: 00:10 Prescriptions / Home Meds: New ondansetron 4 mg tablet,disintegrating 4 mg PO Q6H PRN (Reason: nausea and vomiting) Qty: 20 0RF No Action acetaminophen-codeine 300-30 mg tablet 1 tab PO Q6H PRN (Reason: pain) Qty: 20 0RF cephalexin 500 mg capsule 500 mg PO QID 10 Days Qty: 40 0RF albuterol sulfate 2.5 mg /3 mL (0.083 %) solution for nebulization 2.5 mg inhalation Q6H PRN (Reason: shortness of breath or wheezing) tizanidine 2 mg tablet 2 mg PO Q12H fluticasone propion-salmeterol [Advair Diskus] 250-50 mcg/dose blister with device 1 inh inhalation BID Instructions: Acute Headache (ED), Acute Nausea and Vomiting (ED) Stand Alone Forms: Portal Instructions Referrals: [facility] [Primary Care Provider] - 1 week
[2023-06-06] MEDS: ONDANSETRON 4 MG RAPDIS TABLET SL (00:14)
== END 2023-06-06 00:26 | disposition home or self-care (01) ==
PROVIDERS: Emergency Provider Emergency Medicine
DX: R11.2 Nausea with vomiting, unspecified (principal); R51.9 Headache, unspecified; Z79.899 Other long term (current) drug therapy; F17.210 Nicotine dependence, cigarettes, uncomplicated
CPT/HCPCS: 99283

== ENCOUNTER 2023-07-21 00:06 | Emergency (ER) | payer OTHER, MEDICAID, SELFPAY ==
[2023-07-21 00:09] VITALS: BP 109/69; PULSE 72; RESP 16; TEMP 36.6; O2SAT 99; BMI 22.9
--- OUTSIDE RECORDS SUMMARY | 2023-07-21 00:13 | XMS_ITS | CCD ---
Author Name Unknown Address [address] [place] [address] Organization [facility] Care Team Providers Care [employer] Supervisor Name Role Phone Cande Hinds Primary Care Physician [phone] Bree Jimenes Unavailable Unavailable [facility] Primary Care Provider ZANE Ruiz Attending Pr ovider [facility] Primary Care Provider [phone] ZANE Ruiz Attending Pr ovider ZANE Ruiz Attending Pr ovider [facility] Primary Care Provider MD Salvador Maier Jr Emergency Provider ZANE Ruiz Attending Pr ovider NON STAFF Primary Care Provider [facility] Primary Care Provider MD Salvador Maier Jr Emergency Provider [facility] Primary Care Unavaila sindhu ROSE ., DR RICH Admitting Unavailable ROSE ., DR RICH Attending Unavailable ROSE ., DR RICH Consulting Unavailable [facility] Primary Care Unavaila sindhu ANGELA, DR ADDY Arrington Admitting Unavailable COREEN, DR ADDY Arrington Attending Unavailable ROSALIA ARROYO Consulting Unavailable [facility] Primary Care Unavaila MU Bose Admitting Unavailable MU SHERWOOD Attending Dom BENITEZ, DR MILE Pedersen Consulting Unavailable PAY ., DR ARGUETA Consulting Unavailable [facility] SHERWOOD Consulting Unavailable LUDIN ANGELES Consulting Unavailable [facility] Primary Care Unavailnick ANGELA, DR ADDY Arrington Admitting Unavailable COREEN, DR ADDY Arrington Attending Unavailable COREEN, DR ADDY Arrington Consulting Unavailable IRENE VENTURA Unavailable [facility] Unavaila ble MARKER ., DR GARCIA Admitting Unavailable MARKER ., DR GARCIA Attending Unavailable MARKER ., DR GARCIA Consulting Unavailable [facility] Unavaila ble SHAWNA ., TREVOR Admitting Unavailable SHAWNA ., TREVOR Attending Unavailable SHAWNA ., RTEVOR Consulting Unavailable [facility] Care Unavaila ble SHAWNA ., TREVOR Admitting Unavailable SHAWNA ., TREVOR Attending Unavailable AYE ., CARISSA CAMP Consulting UnavailKAE Pelaez Consulting Unavailable Ramiro, ZANE Lerma Attending Pr ovider Adam ERICKSON Attending Unavailable Adam ERICKSON Attending Unavailable RUFINA RUIZ Referring Unavailable ANAID TREADWELL Attending Unavailab le Ramiro, ZANE Lerma Attending Pr ovider DAMIAN JOVEL Attending Unavailable Ramiro, ZANE Lerma Attending Pr ovider MORGAN Jovel Attending Provider [place], DO Torres Attending Provider Rufina Ruiz Admitting U navailable Ramiro, Rufina Lerma Attending U navailable Ramiro, Rufina Lerma Admitting U navailable Ruiz, Rufina Lerma Attending U navailable Ruiz, Rufina Lerma Admitting U navailable Ruiz, Rufina Lerma Attending U Salvador Swenson Jr Attending Unavailable [facility] UnavailSalvador Stubbs Jr Admitting Unavailable Ramiro, Rufina Lerma Attending U navailable Ramiro, Rufina Lerma Admitting U navailable Damian Jovel Admitting Unavailable Damian Jovel Attending Unavailable Israel, Brian Admitting Unavailable Mast, Brian Attending Unavailable Pepe Guerra Referring Unavailable NON STAFF Primary Care Unavailable Ramiro, Rufina Lerma Admitting U navailable Ruiz, Rufina Lerma Attending U navailable Allergies Allergy Classification Reported Allergen(s) Allergy Type Date of Onset Reaction(s) Facility (12 sources) Aspirin; Translations: [aspirin] Drug Allergy 12-17-19 21 vomiting, Nausea [facility] (12 sources) Haloperidol; Translations: [haloperidol] Drug Allergy 12-17-19 jaw locked sideways, Anaphylaxis [facility] (12 sources) hydrOXYzine; Translations: [hydroxyzine] Drug Allergy 12-17-19 21 rash, vomiting, Hives [facility] (3 sources) Ketorolac; Translations: [ketorolac] Drug Allergy migraines [facility] (12 sources) Magnesium Sulfate; Translations: [magnesium sulfate] Drug Allergy 12-17-19 21 vomiting [facility] (12 sources) metroNIDAZOLE; Translations: [metronidazole] Drug All[facility] 12-17-19 [facility] (12 sources) Naproxen; Translations: [naproxen] Drug Allergy 12-17-19 21 vomiting, Rash [facility] (3 sources) NSAIDs; Translations: [NSAIDs] Drug allergy vomiting [facility] (3 sources) Sulfamethoxazole / Trimethoprim; Translations: [sulfamethoxazole-tr imethoprim] Drug Allergy vomiting [facility] (10 sources) Sulfamethoxazole; Translations: [sulfamethoxazole] Drug Allergy 12-17-19 21 [facility] (10 sources) Trimethoprim; Translations: [trimethoprim] Drug Allergy 12-17-19 21 [facility] (10 sources) NSAIDS (Non-Steroidal Anti-Inflamma; Translations: [NSAIDS (Non-Steroidal Anti-Inflamma] Allergy to substance 12-17-19 21 [facility] (1 source) Aspirin Drug Allergy 10-08-19 15 [facility] (1 source) Haloperidol Drug Allergy 10-08-19 15 [facility] (1 source) hydrOXYzine Drug Allergy 09-14-19 16 [facility] (1 source) Iothalamate Drug Allergy 09-16-19 16 [facility] (1 source) Ketorolac Drug Allergy 09-14-19 16 [facility] (1 source) Magnesium Sulfate Drug Allergy 10-08-19 15 [facility] (1 source) metroNIDAZOLE Drug Allergy 10-08-19 15 [facility] (1 source) Naproxen Drug Allergy 10-08-19 15 [facility] (1 source) NSAIDs Drug allergy (disorder) 10-08-19 15 [facility] (1 source) Sulfonamides (Antibiotic) Drug allergy (disorder) 10-08-19 15 [facility] (1 source) Aspirin Drug Allergy 07-22-19 [facility] (1 source) Haloperidol Drug Allergy 07-22-19 [facility] (1 source) hydrOXYzine Drug Allergy 07-22-19 [facility] (1 source) Magnesium Sulfate Drug Allergy 07-22-19 [facility] (1 source) metroNIDAZOLE Drug Allergy 07-22-19 [facility] (1 source) Naproxen Drug Allergy 07-22-19 [facility] Medications Current Medications Medication Drug Class(es) Dates Sig (Normalized) Sig (Original) acetaminophen 325 mg / oxyCODONE hydrochloride 5 mg oral tablet (7 sources) Opioid Agonist Start: 07-22-2022 take 1 tablet by mouth every six hours Oxycodone-Acetami nophen (Percocet) 5-325 mg tablet Active 1 - 2 TAB PO Every 6 hours 15 3 July 22, 2022 Start: 05-30-2021 Percocet 325 m g-5 mg Tab See Instructions, as needed for pain, 50 tab(s), Refill(s) 0, 1-2 tab(s) Oral q4hr, [facility], 156, cm, 05/21/21 5:13:00 EST, Height/Length Dosing, 57.1, kg, 05/21/21 5:13:00 EST, Weight Dosing Start Date: 05/30/21 Status: Ordered albuterol 0.83 mg/ml inhalation solution (8 sources) beta2-Adrenergic Agonist Start: 07-22-2022 take 1 [...] constipation, # 20 cap(s), Refills(s) 0, Pharmacy: [facility], 156, cm, 05/21/21 5:13:00 EST, Height/Length [...] Status: Ordered OLANZapine 10 mg oral tablet (8 sources) Atypical Antipsychotic Start: 05-20-2021 take 10 mg by mouth once daily Olanzapine Active 10 MG PO Daily July 22, 2022 12:00am omeprazole 20 mg delayed release oral capsule (6 sources) Proton Pump Inhibitor Start: 07-22-2022 take 20 mg by mouth once daily Omeprazole Active 20 MG PO Daily July 22, 2022 12:00am ondansetron 4 mg disintegrating oral tablet (6 sources) Serotonin-3 Receptor Antagonist Start: 07-22-2022 take 4 mg by mouth every eight hours Ondansetron Active 4 MG PO Q8H July 22, 2022 12:00am oxyCODONE hydrochloride 5 mg oral capsule (1 source) Opioid Agonist Start: 06-08-2021 oxyCODONE 5 mg Cap 5 mg = 1 cap(s), Oral, q6hr, PRN Pain 8-10, # 4 cap(s), Refills(s) 0, Pharmacy: [facility], 155, cm, 06/08/21 8:15:00 EST, Height/Length Dosing, 60, kg, 06/08/21 8:15:00 EST, Weight Dosing Start Date: 06/08/21 Status: Ordered rOPINIRole 0.5 mg oral tablet (8 sources) Nonergot Dopamine Agonist Start: 07-22-2022 take 0.5 mg by mouth once daily Ropinirole Active 0.5 MG PO Daily July 22, 2022 12:00am Start: 05-20-2021 take 1 tablet by marielena once daily ropinirole 0.25 mg Tab 0.25 mg = 1 tab(s), Oral, Daily, Refills(s) 0, Other (see comment) Start Date: 05/20/21 Status: Ordered tiZANidine 2 mg oral tablet (6 sources) Central alpha-2 Adrenergic Agonist Start: 07-22-2022 take 2 mg by mouth once daily Tizanidine Active 2 MG PO Daily July 22, 2022 12:00am Vitamin B-12 1000 mcg oral tablet (1 source) Start: 10-27-2022 Vitamin B-12 1 000 mcg oral tablet Refills(s) 0 Start Date: 10/27/22 Status: Ordered Completed/Discontinued Medications Medication Drug Class(es) Dates Sig (Normalized) Sig (Original) ciprofloxacin 500 mg oral tablet (8 sources) Quinolone Antimicrobial Start: 10-27-2022 take 1 tablet by mouth once daily Cipro 500 mg Tab 500 mg = 1 tab(s), Oral, Daily, Take 1 tablet the day before the procedure and 1 tablet after the procedure, # 2 tab(s), Refills(s) 0, Pharmacy: [facility] [id number], 156, cm, 10/27/22 14:36:00 EDT, Height/Length Dosing, 62, kg, 10/27/22 14:36:00... Start Date: 11/27/22 Status: Ordered Start: 07-22-2022 take 250 mg by mouth once daily Ciprofloxacin Hcl Active 250 MG PO Daily July 22, 2022 12:00am Problems Active Problems Problem Classification Problem Date Documented Date Episodic/Chronic Allergic reactions (4 sources) Allergy, unspecified, initial encounter; Translations: [ALLERGY UNSPECIFIED INITIAL ENCNTR] Onset: 10-04-2022 Episodic Anxiety disorders (13 sources) Anxiety; Translations: [Anxiety disorder, unspecified] Onset: [...] [GASTRITIS UNS WITHOUT BLEEDING] Onset: 07-23-2022 Episodic Genitourinary symptoms and ill-defined conditions (2 sources) Dysuria; Translations: [Hematuria, unspecified] Onset: 08-31-2022 Episodic Headache; including migraine (6 sources) Migraine without aura, not refractory ; Translations: [Migraine, unspecified, not intractable, without status migrainosus] Onset: 11-06-2021 06-22-2015 Chronic Headache; including migraine (2 sources) Headache 05-20-2021 Episodic Mood disorders (5 sources) Depression; Translations: [Bipolar disorder, unspecified] Onset: 10-05-2022 09-22-2013 Chronic Nausea and vomiting (5 sources) Nausea; Translations: [Nausea with vomiting, unspecified] Onset: 06-24-2022 Episodic Nonspecific chest pain (9 sources) Atypical chest pain; Translations: [Other chest pain] 05-29-2019 Episodic Other aftercare (1 source) 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; Translations: [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 CURRENT DRUG THERAPY] Onset: 07-23-2022 Episodic Other connective tissue disease (2 sources) Impingement syndrome of shoulder region 05-20-2021 Episodic Other hereditary and degenerative nervous system conditions (1 source) Restless legs syndrome; Translations: [Restless legs syndrome] Onset: 03-19-2023 Chronic Other non-traumatic joint disorders (1 source) Pain of right shoulder joint; Translations: [Pain in right shoulder] Onset: 11-24-2021 Episodic Other non-traumatic joint disorders (9 sources) Chronic pain of right upper limb; Translations: [Pain in right shoulder] 12-16-2020 Episodic Other skin disorders (1 source) Ingrowing nail; Translations: [Ingrowing nail] Onset: 05-26-2023 Episodic Residual codes; unclassified (1 source) Acquired absence of both cervix and uterus; Translations: [ACQUIRED ABSENCE BOTH CERVIX AND UTERUS] Onset: 10-05-2022 Episodic Substance-related disorders (3 sources) Smoker; Translations: [...] PROLNG STAT/AWK PST INIT] Onset: 2 Episodic Joint disorders and dislocations; trauma-related (1 source) Unspecified dislocation of right acromioclavicular joint, initial encounter; Translations: [UNS DISLOCATION RT AC JNT INITIAL] Onset: 2 Episodic Nutritional deficiencies (1 source) Deficiency of other specified B group vitamins; Translations: [Deficiency of other specified B group vitamins] Onset: 3 Episodic Other diseases of kidney and ureters [...] [OTH SPECIFIED POSTPROCEDURAL STATES] Onset: 2 Episodic Residual codes; unclassified (1 source) Tobacco use; Translations: [Tobacco use] Onset: 3 Episodic Skin and subcutaneous tissue infections (4 sources) Cutaneous abscess of right lower limb; Translations: [CUTANEOUS ABSCESS RIGHT LOWER LIMB] Onset: 2 Episodic Viral infection (1 source) Viral infection, unspecified; Translations: [VIRAL INFECTION UNSPECIFIED] Onset: 2 Episodic Results Test Name Value Interpretation Reference Range Facility Urine Cultureon 06-29-2023 Bacteria identified Cx Nom (U) 15,000 colonies/ml mixed bacterial skin contaminants 2 Days PERFORMED BY: [place] [address] PATHOLOGIST INTELLECTUAL PROPERTY MANAGER MARINE WARD M.D. Normal [facility] Comment on above: Performed By: #### C UU #### [address] Aerobic cultureOrdered By: Kingsley Jovel on 05-26-2023 Bacteria identified Aer cx Nom (Unsp spec) 2 Days [facility] Superficial Wound Cultureon 05-26-2023 Superficial Wound Culture Ingrowing nail Light Normal Skin Kacey 2 Days PERFORMED BY: [place] [address] PATHOLOGIST INTELLECTUAL PROPERTY MANAGER MARINE WARD M.D. Normal [facility] Comment on above: Performed By: #### C UU #### [address] Alanine aminotransferase [En zymatic activity/volume] in Serum or PlasmaOrdered By: Rufina Ruiz on 03-19-2023 ALT [Catalytic activity/Vol] 7 U/L 7-52 [facility] Albumin [Mass/volume] in Ser um or Plasma by Bromocresol green (BCG) dye binding methoOrdered By: Rufina Ruiz on 03-19-2023 Albumin BCG dye [Mass/Vol] 4.3 g/dL 3.5-5.7 [facility] Alkaline phosphatase [Enzyma tic activity/volume] in Serum or PlasmaOrdered By: Rufina Ruiz on 03-19-2023 ALP [Catalytic activity/Vol] 100 U/L 34-104 [facility] Aspartate aminotransferase [ Enzymatic activity/volume] in Serum or PlasmaOrdered By: Rufina Ruiz on 03-19-2023 AST [Catalytic activity/Vol] 10 U/L 13-39 [facility] Basophils Auto (Bld) [#/Vol] Ordered By: Rufina Ruiz on 03-19-2023 Basophils (Bld) [#/Vol] 0.0 10*3/uL 0.0-0.2 [facility] Basophils/100 WBC Auto (Bld) Ordered By: Rufina Ruiz on 03-19-2023 Basophils/100 WBC (Bld) 0.4 % . [facility] Bilirubin.total [Mass/volume ] in Serum or PlasmaOrdered By: Rufina Ruiz on 03-19-2023 Bilirubin [Mass/Vol] 0.3 mg/dL 0.3-1.0 [facility] Calcium [Mass/volume] in Ser um or PlasmaOrdered By: Rufina Ruiz on 03-19-2023 Calcium [Mass/Vol] 9.6 mg/dL 8.6-10.3 [facility] Carbon dioxide, total [Moles /volume] in Serum or PlasmaOrdered By: Rufina Ruiz on 03-19-2023 CO2 [Moles/Vol] 29.4 mmol/L 21.0-31.0 [facility] Chloride [Moles/volume] in S siddhartha or PlasmaOrdered By: Rufina Ruiz on 03-19-2023 Chloride [Moles/Vol] 108 mmol/L 98-107 [facility] Cholesterol [Mass/volume] in Serum or PlasmaOrdered By: Rufina Ruiz on 03-19-2023 Cholesterol [Mass/Vol] 164 mg/dL 140-200 [facility] Comment on above: Chol less than 200 m g/dl low riskChol 201-239 mg/dl borderline riskChol 240 mg/dl and greater high risk Cholesterol in LDL Calc [Mas s/Vol]Ordered By: Rufina Ruiz on 03-19-2023 Cholesterol in LDL [Mass/Vol] 84 mg/dL 0-100 [facility] Comment on above: LDL ATP III CLASSIFI CATIONLDL less than 100 mg/dL OptimalLDL 100-129 mg/dL Near or above optimalLDL 130-159 mg/dL Borderline highLDL 160-189 mg/dL HighLDL greater than 189 mg/dL Very high Cholesterol in VLDL Calc [Ma ss/Vol]Ordered By: Rufina Ruiz on 03-19-2023 Cholesterol in VLDL [Mass/Vol] 19 mg/dL [facility] Complete Blood Count Auto Di ffon 03-19-2023 Basophils (Bld) [#/Vol] 0.0 10*3/uL Normal 0.0-0.2 [facility] Comment on above: Order Comment: Reaso n for Exam Bipolar disorder Result Comment: PERF ORMED BY: [place] [address] PATHOLOGIST INTELLECTUAL PROPERTY MANAGER MARINE WARD M.D. Performed By: #### C UU #### [address] Basophils/100 WBC (Bld) 0.4 % Normal . [facility] Comment on above: Order Comment: Reaso n for Exam Bipolar disorder Performed By: #### C UU #### [address] Eosinophils (Bld) [#/Vol] 0.1 10*3/uL Normal 0.0-0.45 [facility] Comment on above: Order Comment: Reaso n for Exam Bipolar disorder Performed By: #### C UU #### [address] Eosinophils/100 WBC (Bld) 1.5 % Normal . [facility] Comment on above: Order Comment: Reaso n for Exam Bipolar disorder Performed By: #### C UU #### [address] Erythrocyte distribution width (RBC) [Ratio] 13.7 % Normal 11.9-15.3 [facility] Comment on above: Order Comment: Reaso n for Exam Bipolar disorder Performed By: #### C UU #### [address] Hematocrit (Bld) [Volume fraction] 39.9 % Normal 34.0-46.4 [facility] Comment on above: Order Comment: Reaso n for Exam Bipolar disorder Performed By: #### C UU #### [address] Hemoglobin (Bld) [Mass/Vol] 13.3 g/dL Normal 11.8-15.4 [facility] Comment on above: Order Comment: Reaso n for Exam Bipolar disorder Performed By: #### C UU #### [address] Lymphocytes (Bld) [#/Vol] 2.4 10*3/uL Normal 1.00-4.8 [facility] Comment on above: Order Comment: Reaso n for Exam Bipolar disorder Performed By: #### C UU #### [address] Lymphocytes/100 WBC (Bld) 25.6 % Normal . [facility] Comment on above: Order Comment: Reaso n for Exam Bipolar disorder Performed By: #### C UU #### [address] [place] [address] [place] MCH (RBC) [Entitic mass] 30.3 pg Normal 24.7-34.3 [facility] Comment on above: Order Comment: Reaso n for Exam Bipolar disorder Performed By: #### C UU #### [address] MCV (RBC) [Entitic vol] 91.1 fL Normal 80-100 [facility] Comment on above: Order Comment: Reaso n for Exam Bipolar disorder Performed By: #### C UU #### [address] Mean Corpuscular HGB Conc 33.3 g/dL Normal 32.0-35.0 [facility] Comment on above: Order Comment: Reaso n for Exam Bipolar disorder Performed By: #### C UU #### [address] Monocytes (Bld) [#/Vol] 0.7 10*3/uL Normal 0.0-0.8 [facility] Comment on above: Order Comment: Reaso n for Exam Bipolar disorder Performed By: #### C UU #### [place] [address] [place] Monocytes/100 WBC (Bld) 7.1 % Normal . [facility] Comment on above: Order Comment: Reaso n for Exam Bipolar disorder Performed By: #### C UU #### [place] [address] [place] Neutrophils (Bld) [#/Vol] 6.2 10*3/uL Normal 1.8-7.7 [facility] Comment on above: Order Comment: Reaso n for Exam Bipolar disorder Performed By: #### C UU #### [place] [address] [place] Neutrophils/100 WBC (Bld) 65.4 % Normal . [facility] Comment on above: Order Comment: Reaso n for Exam Bipolar disorder Performed By: #### C UU #### [place] [id number] [place] NRBC% 0.2 /100{WBC} Normal 0-0.5 [facility] Comment on above: Order Comment: Reaso n for Exam Bipolar disorder Performed By: #### C UU #### [facility] [address] Platelet mean volume (Bld) [Entitic vol] 10.4 fL Normal 6.3-10.7 [facility] Comment on above: Order Comment: Reaso n for Exam Bipolar disorder Performed By: #### C UU #### [facility] [address] Platelets (Bld) [#/Vol] 179 10*3/uL Normal 150-450 [facility] Comment on above: Order Comment: Reaso n for Exam Bipolar disorder Performed By: #### C UU #### [facility] [address] RBC (Bld) [#/Vol] 4.38 10*6/uL Normal 3.60-5.00 [facility] Comment on above: Order Comment: Reaso n for Exam Bipolar disorder Performed By: #### C UU #### [facility] [address] WBC (Bld) [#/Vol] 9.6 10*3/uL Normal 3.8-11.6 [facility] Comment on above: Order Comment: Reaso n for Exam Bipolar disorder Performed By: #### C UU #### [address] Comprehensive Metabolic Pane louise 03-19-2023 Albumin [Mass/Vol] 4.3 g/dL Normal 3.5-5.7 [facility] Comment on above: Order Comment: Reaso n for Exam Bipolar disorder Reason for Exam Restless leg syndrome Reason for Exam Tobacco use;Bipolar disorder Reason for Exam Vitamin B 12 deficiency Performed By: #### T HYROID SC, FE and TIBC, ALOK, LIPID, [id number], CMP, CBC ####[facility] [id number] Albumin/Globulin [Mass ratio] 2.0 {ratio} Normal [facility] Comment on above: Order Comment: Reaso n for Exam Bipolar disorder Reason for Exam Restless leg syndrome Reason for Exam Tobacco use;Bipolar disorder Reason for Exam Vitamin B 12 deficiency Performed By: #### T HYROID SC, FE and TIBC, ALOK, LIPID, [id number], CMP, CBC ####[address] [address] [facility] ALP [Catalytic activity/Vol] 100 U/L Normal 34-104 [facility] Comment on above: Order Comment: Reaso n for Exam Bipolar disorder Reason for Exam Restless leg syndrome Reason for Exam Tobacco use;Bipolar disorder Reason for Exam Vitamin B 12 deficiency Performed By: #### T HYROID SC, FE and TIBC, ALOK, LIPID, [id number], CMP, CBC ####[address] [address] [facility] ALT [Catalytic activity/Vol] 7 U/L Normal 7-52 [facility] Comment on above: Order Comment: Reaso n for Exam Bipolar disorder Reason for Exam Restless leg syndrome Reason for Exam Tobacco use;Bipolar disorder Reason for Exam Vitamin B 12 deficiency Performed By: #### T HYROID SC, FE and TIBC, ALOK, LIPID, [id number], CMP, CBC ####[address] [address] [facility] Anion gap [Moles/Vol] 6.2 mmol/L Normal 6.0-15.0 [facility] Comment on above: Order Comment: Reaso n for Exam Bipolar disorder Reason for Exam Restless leg syndrome Reason for Exam Tobacco use;Bipolar disorder Reason for Exam Vitamin B 12 deficiency Performed By: #### T HYROID SC, FE and TIBC, ALOK, LIPID, [id number], CMP, CBC ####[address] [address] [facility] AST [Catalytic activity/Vol] 10 U/L Low 13-39 [facility] Comment on above: Order Comment: Reaso n for Exam Bipolar disorder Reason for Exam Restless leg syndrome Reason for Exam Tobacco use;Bipolar disorder Reason for Exam Vitamin B 12 deficiency Performed By: #### T HYROID SC, FE and TIBC, ALOK, LIPID, [id number], CMP, CBC ####[address] [address] [facility] Bilirubin [Mass/Vol] 0.3 mg/dL Normal 0.3-1.0 [facility] Comment on above: Order Comment: Reaso n for Exam Bipolar disorder Reason for Exam Restless leg syndrome Reason for Exam Tobacco use;Bipolar disorder Reason for Exam Vitamin B 12 deficiency Performed By: #### T HYROID SC, FE and TIBC, ALOK, LIPID, [id number], CMP, CBC ####[address] [address] [facility] Calcium [Mass/Vol] 9.6 mg/dL Normal 8.6-10.3 [facility] Comment on above: Order Comment: Reaso n for Exam Bipolar disorder Reason for Exam Restless leg syndrome Reason for Exam Tobacco use;Bipolar disorder Reason for Exam Vitamin B 12 deficiency Performed By: #### T HYROID SC, FE and TIBC, ALOK, LIPID, [id number], CMP, CBC ####[address] [address] [facility] Chloride [Moles/Vol] 108 mmol/L High 98-107 [facility] Comment on above: Order Comment: Reaso n for Exam Bipolar disorder Reason for Exam Restless leg syndrome Reason for Exam Tobacco use;Bipolar disorder Reason for Exam Vitamin B 12 deficiency Performed By: #### T HYROID SC, FE and TIBC, ALOK, LIPID, [id number], CMP, CBC ####[address] [address] [facility] CO2 [Moles/Vol] 29.4 mmol/L Normal 21.0-31.0 [facility] Comment on above: Order Comment: Reaso n for Exam Bipolar disorder Reason for Exam Restless leg syndrome Reason for Exam Tobacco use;Bipolar disorder Reason for Exam Vitamin B 12 deficiency Performed By: #### T HYROID SC, FE and TIBC, ALOK, LIPID, [id number], CMP, CBC ####[address] [address] [facility] Creatinine [Mass/Vol] 0.74 mg/dL Normal 0.60-1.20 [facility] Comment on above: Order Comment: Reaso n for Exam Bipolar disorder Reason for Exam Restless leg syndrome Reason for Exam Tobacco use;Bipolar disorder Reason for Exam Vitamin B 12 deficiency Performed By: #### T HYROID SC, FE and TIBC, ALOK, LIPID, [id number], CMP, CBC ####[place] [id number] [place] [id number] [facility] GFR/1.73 sq M.predicted MDRD (S/P/Bld) [Vol rate/Area] mL/min/{1.73_m2} Normal [facility] Comment on above: Order Comment: Reaso n for Exam Bipolar disorder Reason for Exam Restless leg syndrome Reason for Exam Tobacco use;Bipolar disorder Reason for Exam Vitamin B 12 deficiency Performed By: #### T HYROID SC, FE and TIBC, ALOK, LIPID, [id number], CMP, CBC ####[place] [id number] [facility] Globulin (S) [Mass/Vol] 2.1 g/dL Normal [facility] Comment on above: Order Comment: Reaso n for Exam Bipolar disorder Reason for Exam Restless leg syndrome Reason for Exam Tobacco use;Bipolar disorder Reason for Exam Vitamin B 12 deficiency Performed By: #### T HYROID SC, FE and TIBC, ALOK, LIPID, [id number], CMP, CBC ####[place] [id number] [facility] Glucose [Mass/Vol] 94 mg/dL Normal 70-100 [facility] Comment on above: Order Comment: Reaso n for Exam Bipolar disorder Reason for Exam Restless leg syndrome Reason for Exam Tobacco use;Bipolar disorder Reason for Exam Vitamin B 12 deficiency Result Comment: [place] Glucose Reference Range is dependent on time and content of last meal. Glucose of more than 200 mg/dL in a nonstressed, ambulatory subject supports the diagnosis of Diabetes Mellitus. ADA recommended reference range Performed By: #### T HYROID SC, FE and TIBC, ALOK, LIPID, [id number], CMP, CBC ####[place] [id number] [facility] Potassium [Moles/Vol] 4.6 mmol/L Normal 3.5-5.1 [facility] Comment on above: Order Comment: Reaso n for Exam Bipolar disorder Reason for Exam Restless leg syndrome Reason for Exam Tobacco use;Bipolar disorder Reason for Exam Vitamin B 12 deficiency Performed By: #### T HYROID SC, FE and TIBC, ALOK, LIPID, [id number], CMP, CBC ####[address] [address] [facility] Protein [Mass/Vol] 6.4 g/dL Normal 6.4-8.9 [facility] Comment on above: Order Comment: Reaso n for Exam Bipolar disorder Reason for Exam Restless leg syndrome Reason for Exam Tobacco use;Bipolar disorder Reason for Exam Vitamin B 12 deficiency Performed By: #### T HYROID SC, FE and TIBC, ALOK, LIPID, [id number], CMP, CBC ####[address] [address] [facility] Sodium [Moles/Vol] 139 mmol/L Normal 136-145 [facility] Comment on above: Order Comment: Reaso n for Exam Bipolar disorder Reason for Exam Restless leg syndrome Reason for Exam Tobacco use;Bipolar disorder Reason for Exam Vitamin B 12 deficiency Performed By: #### T HYROID SC, FE and TIBC, ALOK, LIPID, [id number], CMP, CBC ####[address] [address] [facility] Urea nitrogen [Mass/Vol] 7 mg/dL Normal 7-25 [facility] Comment on above: Order Comment: Reaso n for Exam Bipolar disorder Reason for Exam Restless leg syndrome Reason for Exam Tobacco use;Bipolar disorder Reason for Exam Vitamin B 12 deficiency Performed By: #### T HYROID SC, FE and TIBC, ALOK, LIPID, [id number], CMP, CBC ####[place] [address] [place] [address] [facility] Creatinine [Mass/volume] in Serum or PlasmaOrdered By: Rufina Ruiz on 03-19-2023 Creatinine [Mass/Vol] 0.74 mg/dL 0.60-1.20 [facility] Eosinophils Auto (Bld) [#/Vo l]Ordered By: Rufina Ruiz on 03-19-2023 Eosinophils (Bld) [#/Vol] 0.1 10*3/uL 0.0-0.45 [facility] Eosinophils/100 WBC Auto (Bl d)Ordered By: Rufina Ruiz on 03-19-2023 Eosinophils/100 WBC (Bld) 1.5 % . [facility] Erythrocyte distribution wid th Auto (RBC) [Ratio]Ordered By: Rufina Ruiz on 03-19-2023 Erythrocyte distribution width (RBC) [Ratio] 13.7 % 11.9-15.3 [facility] Ferritinon 03-19-2023 Ferritin [Mass/Vol] 58.3 ng/mL Normal 11.0-306.8 [facility] Comment on above: Order Comment: Reaso n for Exam Bipolar disorder Reason for Exam Restless leg syndrome Reason for Exam Tobacco use;Bipolar disorder Reason for Exam Vitamin B 12 deficiency Performed By: #### T HYROID SC, FE and TIBC, ALOK, LIPID, [id number], CMP, CBC ####[facility] [id number] Ferritin [Mass/volume] in Se rum or PlasmaOrdered By: Rufina Ruiz on 03-19-2023 Ferritin [Mass/Vol] 58.3 ng/mL 11.0-306.8 [facility] Folate [Mass/volume] in Seru m or PlasmaOrdered By: Rufina Ruiz on 03-19-2023 Folate [Mass/Vol] 5.7 ng/mL >5.9 [facility] Comment on above: Folate reference ran ge: >5.9 ng/mlThe WHO technical consultation on folate and vitamin [id number] has determined that folate concentrations lessthan 4 ng/ml are considered deficient. Globulin Calc (S) [Mass/Vol] Ordered By: Rufina Ruiz on 03-19-2023 Globulin (S) [Mass/Vol] 2.1 g/dL [facility] Glucose [Mass/volume] in Ser um or PlasmaOrdered By: Rufina Ruiz on 03-19-2023 Glucose [Mass/Vol] 94 mg/dL 70-100 [facility] Comment on above: ADA recommended refe rence rangeRandom Glucose Reference Range is dependent on time and content of last meal. Glucose of more than 200 mg/dL in a nonstressed, ambulatory subject supports the diagnosis of Diabetes Mellitus. Hematocrit Auto (Bld) [Volum e fraction]Ordered By: Rufina Ruiz on 03-19-2023 Hematocrit (Bld) [Volume fraction] 39.9 % 34.0-46.4 [facility] Hemoglobin [Mass/volume] in BloodOrdered By: Rufina Ruiz on 03-19-2023 Hemoglobin (Bld) [Mass/Vol] 13.3 g/dL 11.8-15.4 [facility] Iron [Mass/volume] in Serum or PlasmaOrdered By: Rufina Ruiz on 03-19-2023 Iron [Mass/Vol] 68 ug/dL 50-212 [facility] Iron and TIBC Profileon % Iron Saturation 22.3 % Normal 20-50 [facility] Comment on above: Order Comment: Reaso n for Exam Bipolar disorder Reason for Exam Restless leg syndrome Reason for Exam Tobacco use;Bipolar disorder Reason for Exam Vitamin B 12 deficiency Performed By: #### T HYROID SC, FE and TIBC, ALOK, LIPID, [id number], CMP, CBC ####[facility] [id number] [place] [address] [facility] Iron [Mass/Vol] 68 ug/dL Normal 50-212 [facility] Comment on above: Order Comment: Reaso n for Exam Bipolar disorder Reason for Exam Restless leg syndrome Reason for Exam Tobacco use;Bipolar disorder Reason for Exam Vitamin B 12 deficiency Performed By: #### T HYROID SC, FE and TIBC, ALOK, LIPID, [id number], CMP, CBC ####[facility] [id number] [place] [address] [facility] Total Iron Binding Capacity 305 ug/dL Normal 255-450 [facility] Comment on above: Order Comment: Reaso n for Exam Bipolar disorder Reason for Exam Restless leg syndrome Reason for Exam Tobacco use;Bipolar disorder Reason for Exam Vitamin B 12 deficiency Performed By: #### T HYROID SC, FE and TIBC, ALOK, LIPID, [id number], CMP, CBC ####[facility] [id number] [place] [address] [facility] Transferrin [Mass/Vol] 218 mg/dL Normal 203-362 [facility] Comment on above: Order Comment: Reaso n for Exam Bipolar disorder Reason for Exam Restless leg syndrome Reason for Exam Tobacco use;Bipolar disorder Reason for Exam Vitamin B 12 deficiency Performed By: #### T HYROID SC, FE and TIBC, ALOK, LIPID, [id number], CMP, CBC ####[facility] [id number] [place] [address] [facility] Iron binding capacity [Mass/ volume] in Serum or PlasmaOrdered By: Rufina Ruiz on 03-19-2023 Iron binding capacity [Mass/Vol] 305 ug/dL 255-450 [facility] Iron saturation [Mass Fracti on] in Serum or PlasmaOrdered By: Rufina Ruiz on 03-19-2023 Iron saturation [Mass fraction] 22.3 % 20-50 [facility] Leukocytes [#/volume] correc zakia for nucleated erythrocytes in Blood by Automated counOrdered By: Rufina Ruiz on 03-19-2023 WBC corrected for nucl RBC Auto (Bld) [#/Vol] 9.6 10*3/uL 3.8-11.6 [facility] Lipid Panelon 03-19-2023 Cholesterol [Mass/Vol] 164 mg/dL Normal 140-200 [facility] Comment on above: Order Comment: Reaso n for Exam Bipolar disorder Reason for Exam Restless leg syndrome Reason for Exam Tobacco use;Bipolar disorder Reason for Exam Vitamin B 12 deficiency Result Comment: Chol less than 200 mg/dl low risk Chol 201-239 mg/dl borderline risk Chol 240 mg/dl and greater high risk Performed By: #### T HYROID SC, FE and TIBC, ALOK, LIPID, [id number], CMP, CBC ####[facility] [id number] [place] [address] [facility] Cholesterol in HDL [Mass/Vol] 60 mg/dL Normal 23-92 [facility] Comment on above: Order Comment: Reaso n for Exam Bipolar disorder Reason for Exam Restless leg syndrome Reason for Exam Tobacco use;Bipolar disorder Reason for Exam Vitamin B 12 deficiency Result Comment: HDL CHOL ATP-III CLASSIFICATION Cardiovascular Risk HDL > or equal to 60 mg/dL LOW HDL < 40 mg/dL HIGH Performed By: #### T HYROID SC, FE and TIBC, ALOK, LIPID, [id number], CMP, CBC ####[facility] Cholesterol.total/Choles terol in HDL [Mass ratio] 2.7 {ratio} Normal <5.0 [facility] Comment on above: Order Comment: Reaso n for Exam Bipolar disorder Reason for Exam Restless leg syndrome Reason for Exam Tobacco use;Bipolar disorder Reason for Exam Vitamin B 12 deficiency Performed By: #### T HYROID SC, FE and TIBC, ALOK, LIPID, [id number], CMP, CBC ####[place] [id number] [place] [id number] [facility] LDL Cholesterol,Calculated 84 mg/dL Normal 0-100 [facility] Comment on above: Order Comment: Reaso n [...] 189 mg/dL Very high Performed By: #### T HYROID SC, FE and TIBC, ALOK, LIPID, [id number], CMP, CBC ####[facility] [id number] [place] [id number] [facility] Triglyceride w/Reflex 99 mg/dL Normal 0-149 [facility] Comment on above: Order Comment: Reaso [...] Prevention (CDC) test method. Performed By: #### T HYROID SC, FE and TIBC, ALOK, LIPID, [id number], CMP, CBC ####[facility] [id number] VLDL CHOLESTEROL 19 mg/dL Normal [facility] Comment on above: Order Comment: Reaso n for Exam Bipolar disorder Reason for Exam Restless leg syndrome Reason for Exam Tobacco use;Bipolar disorder Reason for Exam Vitamin B 12 deficiency Performed By: #### T HYROID SC, FE and TIBC, ALOK, LIPID, [id number], CMP, CBC ####[facility] [id number] [place] [id number] [facility] Lymphocytes Auto (Bld) [#/Vo l]Ordered By: Rufina Ruiz on 03-19-2023 Lymphocytes (Bld) [#/Vol] 2.4 10*3/uL 1.00-4.8 [facility] Lymphocytes/100 WBC Auto (Bl d)Ordered By: Rufina Ruiz on 03-19-2023 Lymphocytes/100 WBC (Bld) 25.6 % . [facility] MCH Auto (RBC) [Entitic mass ]Ordered By: Rufina Ruiz on 03-19-2023 MCH (RBC) [Entitic mass] 30.3 pg 24.7-34.3 [facility] MCHC Auto (RBC) [Mass/Vol]Or dered By: Rufina Ruiz on 03-19-2023 MCHC (RBC) [Mass/Vol] 33.3 g/dL 32.0-35.0 [facility] MCV Auto (RBC) [Entitic vol] Ordered By: Rufina Ruiz on 03-19-2023 MCV (RBC) [Entitic vol] 91.1 fL 80-100 [facility] Monocytes Auto (Bld) [#/Vol] Ordered By: Rufina Ruiz on 03-19-2023 Monocytes (Bld) [#/Vol] 0.7 10*3/uL 0.0-0.8 [facility] Monocytes/100 WBC Auto (Bld) Ordered By: Rufina Ruiz on 03-19-2023 Monocytes/100 WBC (Bld) 7.1 % . [facility] Neutrophils Auto (Bld) [#/Vo l]Ordered By: Rufina Ruiz on 03-19-2023 Neutrophils (Bld) [#/Vol] 6.2 10*3/uL 1.8-7.7 [facility] Neutrophils/100 WBC Auto (Bl d)Ordered By: Rufina Ruiz on 03-19-2023 Neutrophils/100 WBC (Bld) 65.4 % . [facility] No Panel InformationOrdered By: Rufina Ruiz on 03-19-2023 Estimated GFR (CKD-EPI) > 60.0 mL/Min [facility] Pharmacy Creatinine Clearance (Chem N/A [facility] Nucleated erythrocytes [Pres ence] in Blood by Automated countOrdered By: Rufina Ruiz on 03-19-2023 Nucleated RBC Auto Ql (Bld) 0.2 /100{WBC} 0-0.5 [facility] Platelet mean volume Auto (B ld) [Entitic vol]Ordered By: Rufina Ruiz on 03-19-2023 Platelet mean volume (Bld) [Entitic vol] 10.4 fL 6.3-10.7 [facility] Platelets Auto (Bld) [#/Vol] Ordered By: Rufina Ruiz on 03-19-2023 Platelets (Bld) [#/Vol] 179 10*3/uL 150-450 [facility] Potassium [Moles/volume] in Serum or PlasmaOrdered By: Rufina Ruiz on 03-19-2023 Potassium [Moles/Vol] 4.6 mmol/L 3.5-5.1 [facility] Protein [Mass/volume] in Ser um or PlasmaOrdered By: Rufina Ruiz on 03-19-2023 Protein [Mass/Vol] 6.4 g/dL 6.4-8.9 [facility] RBC Auto (Bld) [#/Vol]Ordere d By: Rufina Ruiz on 03-19-2023 RBC (Bld) [#/Vol] 4.38 10*6/uL 3.60-5.00 [facility] Serum or plasma albumin/glob ulin mass ratioOrdered By: Rufina Ruiz on 03-19-2023 Albumin/Globulin [Mass ratio] 2.0 {ratio} [facility] Serum or plasma anion gap de terminationOrdered By: Rufina Ruiz on 03-19-2023 Anion gap [Moles/Vol] 6.2 mmol/L 6.0-15.0 [facility] Serum or plasma high density lipoprotein (HDL) cholesterol measurementOrdered By: Rufina Ruiz on 03-19-2023 Cholesterol in HDL [Mass/Vol] 60 mg/dL 23-92 [facility] Comment on above: HDL CHOL ATP-III CLA SSIFICATION Cardiovascular RiskHDL > or equal to 60 mg/dL LOWHDL < 40 mg/dL HIGH Serum or plasma total choles terol/high density lipoprotein (HDL) cholesterol mass ratOrdered By: Rufina Ruiz on 03-19-2023 Cholesterol.total/Choles terol in HDL [Mass ratio] 2.7 {ratio} <5.0 [facility] Sodium [Moles/volume] in Ser um or PlasmaOrdered By: Rufina Ruiz on 03-19-2023 Sodium [Moles/Vol] 139 mmol/L 136-145 [facility] THYROID SCREENon 03-19-2023 Free T4 [Mass/Vol] 0.70 ng/dL Normal 0.61-1.12 [facility] Comment on above: Order Comment: Reaso n for Exam Bipolar disorder Reason for Exam Restless leg syndrome Reason for Exam Tobacco use;Bipolar disorder Reason for Exam Vitamin B 12 deficiency Performed By: #### T HYROID SC, FE and TIBC, ALOK, LIPID, [id number], CMP, CBC ####[facility] [id number] [place] [address] [facility] TSH Qn 1.95 m[IU]/L Normal 0.45-5.33 [facility] Comment on above: Order Comment: Reaso n for Exam Bipolar disorder Reason for Exam Restless leg syndrome Reason for Exam Tobacco use;Bipolar disorder Reason for Exam Vitamin B 12 deficiency Result Comment: PERF ORMED BY: [facility] [address] [place] [address] PATHOLOGIST [employer]NAGER MARINE WARD M.D. Performed By: #### T HYROID SC, FE and TIBC, ALOK, LIPID, [id number], CMP, CBC ####[facility] [id number] [place] [id number] [facility] Thyrotropin [Units/volume] i n Serum or PlasmaOrdered By: Rufina Ruiz on 03-19-2023 TSH Qn 1.95 m[IU]/L 0.45-5.33 [facility] Thyroxine (T4) free [Mass/vo lume] in Serum or PlasmaOrdered By: Rufina Ruiz on 03-19-2023 Free T4 [Mass/Vol] 0.70 ng/dL 0.61-1.12 [facility] Transferrin [Mass/volume] in Serum or PlasmaOrdered By: Rufina Ruiz on 03-19-2023 Transferrin [Mass/Vol] 218 mg/dL 203-362 [facility] Triglyceride [Mass/volume] i n Serum or PlasmaOrdered By: Rufina Ruiz on 03-19-2023 Triglyceride [Mass/Vol] 99 mg/dL 0-149 [facility] Comment on above: TRIG ATP III CLASSIF ICATIONTRIG less than 150 mg/dL NormalTRIG 150-199 mg/dL Borderline highTRIG 200-500 mg/dL High TRIG greater than 500 mg/dL Very highStandard traceable to the Center for Disease Conrtrol and Prevention (CDC) test method. Urea nitrogen [Mass/volume] in Serum or PlasmaOrdered By: Rufina Ruiz on 03-19-2023 Urea nitrogen [Mass/Vol] 7 mg/dL 7-25 [facility] Vit. B12/Folate Profileon Cobalamin (Vitamin B12) [Mass/Vol] 641 pg/mL Normal 180-914 [facility] Comment on above: Order Comment: Reaso n for Exam Bipolar disorder Reason for Exam Restless leg syndrome Reason for Exam Tobacco use;Bipolar disorder Reason for Exam Vitamin B 12 deficiency Performed By: #### T HYROID SC, FE and TIBC, ALOK, LIPID, [id number], CMP, CBC ####[facility] [id number] [place] [id number] [facility] Folate 5.7 ng/mL Low >5.9 [facility] Comment on above: Order Comment: Reaso n for Exam Bipolar disorder Reason for Exam Restless leg syndrome Reason for Exam Tobacco use;Bipolar disorder Reason for Exam Vitamin B 12 deficiency Result Comment: [place] reference range: >5.9 ng/ml The WHO technical consultation on folate and vitamin b12 deficiencies has determined that folate concentrations less than 4 ng/ml are considered deficient. Performed By: #### T HYROID SC, FE and TIBC, ALOK, LIPID, [id number], CMP, CBC ####[facility] [id number] [place] [address] [facility] Vitamin B12 ser/plasOrdered By: Rufina Ruiz on 03-19-2023 Cobalamin (Vitamin B12) [Mass/Vol] 641 pg/mL 180-914 [facility] WBC Auto (Bld) [#/Vol]Ordere d By: Rufina Ruiz on 03-19-2023 WBC (Bld) [#/Vol] 9.6 10*3/uL 3.8-11.6 [facility] Vitamin B12on 11-16-2022 Cobalamin (Vitamin B12) [Mass/Vol] 363 pg/mL Normal 180-914 [facility] Comment on above: Order Comment: Reaso n for Exam B12 deficiency Result Comment: PERF ORMED BY: [facility] [address] [place] [id number] PATHOLOGIST [employer]ERTY MANAGER MARINE WARD M.D. Performed By: #### B 12 ####[place] [address] [place] [address] [facility] Vitamin B12 ser/plasOrdered By: Rufina Ruiz on 11-16-2022 Cobalamin (Vitamin B12) [Mass/Vol] 363 pg/mL 180-914 [facility] Lab Reportson 11-04-2022 Lab Reports [id number]#1 .00CD:127 Normal [facility] Lab Reports [id number]#1 .00CD:127 Normal [facility] Lab Reports [id number]#1 .00CD:127 Normal [facility] Lab Reports [id number]#1 .00CD:127 Normal [facility] Lab Reports [id number]#1 .00CD:127 Normal [facility] RAD - CT Reporton 11-04-2022 RAD - CT Report [id number] .00CD:127 Normal [facility] Physician Referralon 023 Physician Referral [id number] .00CD:127 Normal [facility] Patient Educationon 10-06-19 Patient Education Obstetrics and Gynecology Urinary Tract Infection, Adult A urinary tract [...] this condition includes: ? Antibiotic medicine. ? Ulcd-cqd-clqndhw medicines to treat discomfort. ? Drinking enough [...] these instructions at home: Medicines ? Take pdbz-bss-lzpcwqu and prescription medicines only as told by [...] This in (more content not included)... Normal [facility] Vitamin B12on 09-21-2022 Cobalamin (Vitamin B12) [Mass/Vol] 548 pg/mL Normal 180-914 [facility] Comment on above: Order Comment: Reaso n for Exam B12 deficiency Result Comment: PERF ORMED BY: [place] [address] PATHOLOGIST [employer]ELLECT[employer] PROPERTY MANAGER MARINE WARD M.D. Performed By: #### C UU #### [address] Vitamin B12 ser/plasOrdered By: Rufina Ruiz on 09-21-2022 Cobalamin (Vitamin B12) [Mass/Vol] 548 pg/mL 180-914 [facility] Urine Cultureon 08-31-2022 Bacteria identified Cx Nom (U) Reason for Exam Hematuria, unspecified type Urine ORGANISM: Escherichia coli (O:ESCCOL) [place] Count >100,000 Aerobic [place] Charge (NMIC56) ---- SUSCEPTIBILITY --- ORGANISM: O:ESCCOL ANTIBIOTIC INTERPRETATION [place] Amikacin S <16 Amoxacillin/K Clavulanate I 1616/8 Ampicillin R >16 Ampicillin/Sulbactam R >16 Aztreonam S <4 Cefazolin I 16 Cefepime S <2 Ceftazidime S <1 Ceftazidime/Avibactam S <4 Ceftolozane/Tazobacta m S <2 Ceftriaxone S <1 Cefuroxime S <4 Ciprofloxacin S <0.25 Ertapenem S <0.5 Gentamicin S <2 Levofloxacin S <0.5 Meropenem S <1 Meropenem/Vaborbactam S <2 Nitrofurantoin S <32 Piperacillin/Tazobact am S <8 Tetracycline S <4 Tigecycline S <2 Tobramycin S <2 Trimethoprim/Sulfamet hoxazole S <0.5 S = SUSCEPTIBLE I = [...] RESISTANT TO ALL B-LACTAM DRUGS. PERFORMED BY: [place] [address] PATHOLOGIST INTELLECTUAL PROPERTY MANAGER MARINE WARD M.D. [facility] Comment on above: Performed By: #### C UU #### [facility] [address] [place] [address] Urine culture routineOrdered By: Rufina Ruiz on 08-31-2022 Bacteria identified Cx Nom (U) Escherichia coli [facility] CT abdomen pelvis w conon CT abdomen pelvis w con [facility] [place] [address] [place] [address] CT Scan Report Signed Patient: Archana Joy MR#: [id number] : 1975 Acct:[id number] Age/Sex: 46 / F ADM Date: 07/22/22 Loc: ER Room: Type: [facility] ER Attending Dr: Copies to: Salvador Maier [...] Dara Hardy M.D.07/23/2022 7:53 AM Dictation Location: [place] [address] Transcribed By: [facility] 07/23/22 0753 Dictated By: Dara Hardy MD 07/23/22 0721 Signed By: 07/23/22 0753 [facility] US gall bladderon 07-23-2022 gall bladder [facility] [place] [address] Ultrasound Report Signed Patient: Archana Joy MR#: [id number] : 1975 Acct:[id number] Age/Sex: 46 / F ADM Date: 07/22/22 Loc: ER Room: Type: [facility] ER Attending Dr: Ordering Provider: Salvador Maier [...] Dara Hardy M.D.07/23/2022 7:18 AM Dictation Location: [place] [address] Tech: Bethany Damoncathryn Transcribed By: JORGE 07/23/22717 Dictated By: Dara Hardy MD 07/23/22 07 Signed By: 07/23/22 07 Normal [facility] Basophils Auto (Bld) [#/Vol] Ordered By: Salvador Maier on 07-22-2022 Basophils (Bld) [#/Vol] 0.1 10*3/uL 0.0-0.2 [facility] Basophils/100 WBC Auto (Bld) Ordered By: Salvador Maier on 07-22-2022 Basophils/100 WBC (Bld) 1.0 % . [facility] Bilirubin Test strip Ql (U)O rdered By: Salvador Maier on 07-22-2022 Bilirubin Ql (U) Negative Negative [facility] Body fluid albumin measureme nt (mass/volume)Ordered By: Salvador Maier on 07-22-2022 Albumin (Body fld) [Mass/Vol] 3.9 g/dL 3.2-5.5 [facility] Color Auto (U)Ordered By: Nguyễn Maier on 07-22-2022 Color (U) Yellow Yellow [facility] Complete Blood Count Auto Di ffon 07-22-2022 Basophils (Bld) [#/Vol] 0.1 10*3/uL Normal 0.0-0.2 [facility] Comment on above: Result Comment: PERF ORMED BY: [place] [address] PATHOLOGIST INTELLECTUAL PROPERTY MANAGER MARINE WARD M.D. Performed By: #### C MP, CBC, LIPASE #### [facility] [address] Basophils/100 WBC (Bld) 1.0 % Normal . [facility] Comment on above: Performed By: #### C MP, CBC, LIPASE #### [facility] [address] Eosinophils (Bld) [#/Vol] 0.4 10*3/uL Normal 0.0-0.45 [facility] Comment on above: Performed By: #### C MP, CBC, LIPASE #### [address] Eosinophils/100 WBC (Bld) 4.1 % Normal . [facility] Comment on above: Performed By: #### C MP, CBC, LIPASE #### [facility] [address] [place] [address] Erythrocyte distribution width (RBC) [Ratio] 14.7 % Normal 11.9-15.3 [facility] Comment on above: Performed By: #### C MP, CBC, LIPASE #### [facility] [address] [place] [address] [place] Hematocrit (Bld) [Volume fraction] 40.9 % Normal 34.0-46.4 [facility] Comment on above: Performed By: #### C MP, CBC, LIPASE #### [facility] [address] [place] [address] Hemoglobin (Bld) [Mass/Vol] 13.3 g/dL Normal 11.8-15.4 [facility] Comment on above: Performed By: #### C MP, CBC, LIPASE #### [address] Lymphocytes (Bld) [#/Vol] 3.1 10*3/uL Normal 1.00-4.8 [facility] Comment on above: Performed By: #### C MP, CBC, LIPASE #### [address] Lymphocytes/100 WBC (Bld) 35.0 % Normal . [facility] Comment on above: Performed By: #### C MP, CBC, LIPASE #### [address] MCH (RBC) [Entitic mass] 30.2 pg Normal 24.7-34.3 [facility] Comment on above: Performed By: #### C MP, CBC, LIPASE #### [address] MCV (RBC) [Entitic vol] 92.6 fL Normal 80-100 [facility] Comment on above: Performed By: #### C MP, CBC, LIPASE #### [address] Mean Corpuscular HGB Conc 32.6 g/dL Normal 32.0-35.0 [facility] Comment on above: Performed By: #### C MP, CBC, LIPASE #### [address] Monocytes (Bld) [#/Vol] 0.6 10*3/uL Normal 0.0-0.8 [facility] Comment on above: Performed By: #### C MP, CBC, LIPASE #### [place] [address] [place] Monocytes/100 WBC (Bld) 20.62 % High 0.00-20.00 [facility] Comment on above: Result Comment: For adults in ED, MDW > 20.0 may be associated with a higher risk of sepsis during the first 12 hrs of hospital admission Performed By: #### C MP, CBC, LIPASE #### [place] [id number] [place] Monocytes/100 WBC (Bld) 7.1 % Normal . [facility] Comment on above: Performed By: #### C MP, CBC, LIPASE #### [address] Neutrophils (Bld) [#/Vol] 4.6 10*3/uL Normal 1.8-7.7 [facility] Comment on above: Performed By: #### C MP, CBC, LIPASE #### [address] Neutrophils/100 WBC (Bld) 52.8 % Normal . [facility] Comment on above: Performed By: #### C MP, CBC, LIPASE #### [address] NRBC% 0.2 /100{WBC} Normal 0-0.5 [facility] Comment on above: Performed By: #### C MP, CBC, LIPASE #### [address] Platelet mean volume (Bld) [Entitic vol] 9.1 fL Normal 6.3-10.7 [facility] Comment on above: Performed By: #### C MP, CBC, LIPASE #### [place] [address] [place] Platelets (Bld) [#/Vol] 202 10*3/uL Normal 150-450 [facility] Comment on above: Performed By: #### C MP, CBC, LIPASE #### [address] RBC (Bld) [#/Vol] 4.42 10*6/uL Normal 3.60-5.00 [facility] Comment on above: Performed By: #### C MP, CBC, LIPASE #### [address] WBC (Bld) [#/Vol] 8.8 10*3/uL Normal 3.8-11.6 [facility] Comment on above: Performed By: #### C MP, CBC, LIPASE #### [facility] [address] Comprehensive Metabolic Pane louise 07-22-2022 Albumin [Mass/Vol] 3.9 g/dL Normal 3.2-5.5 [facility] Comment on above: Performed By: #### C MP, CBC, LIPASE #### [facility] [address] Albumin/Globulin [Mass ratio] 1.6 {ratio} Normal [facility] Comment on above: Performed By: #### C MP, CBC, LIPASE #### [facility] [address] ALP [Catalytic activity/Vol] 109 U/L High 32-92 [facility] Comment on above: Performed By: #### C MP, CBC, LIPASE #### [address] ALT [Catalytic activity/Vol] 12 U/L Normal 10-60 [facility] Comment on above: Performed By: #### C MP, CBC, LIPASE #### [address] Anion gap [Moles/Vol] 13.2 mmol/L Normal 6.0-15.0 [facility] Comment on above: Performed By: #### C MP, CBC, LIPASE #### [address] AST [Catalytic activity/Vol] 16 U/L Normal 10-42 [facility] Comment on above: Performed By: #### C MP, CBC, LIPASE #### [address] Bilirubin [Mass/Vol] 0.3 mg/dL Normal 0.3-1.2 [facility] Comment on above: Performed By: #### C MP, CBC, LIPASE #### [facility] [address] Calcium [Mass/Vol] 8.8 mg/dL Normal 8.2-10.2 [facility] Comment on above: Performed By: #### C MP, CBC, LIPASE #### [facility] [address] Chloride [Moles/Vol] 103 mmol/L Normal 95-114 [facility] Comment on above: Performed By: #### C MP, CBC, LIPASE #### [facility] [address] CO2 [Moles/Vol] 26.0 mmol/L Normal 22.0-30.0 [facility] Comment on above: Performed By: #### C MP, CBC, LIPASE #### [facility] [address] Creatinine [Mass/Vol] 0.68 mg/dL Normal 0.44-1.03 [facility] Comment on above: Performed By: #### C MP, CBC, LIPASE #### [facility] [address] [place] [address] Creatinine Clr Calc Pharmacy 90.47 [facility] Comment on above: Performed By: #### C MP, CBC, LIPASE #### [facility] [address] Estimated GFR ( Tabitha > 60 [facility] Comment on above: Result Comment: GFR estimated reference range: According to KDOQI guidelines, <60 ml/min/1.73m2 is sufficient to diagnose a patient with chronic kidney disease. Performed By: #### C MP, CBC, LIPASE #### [facility] [address] [place] [address] Estimated GFR (Non- Am > 60 [facility] Comment on above: Performed By: #### C MP, CBC, LIPASE #### [facility] [address] Globulin (S) [Mass/Vol] 2.5 g/dL Normal [facility] Comment on above: Performed By: #### C MP, CBC, LIPASE #### [facility] [address] Glucose [Mass/Vol] 102 mg/dL High 70-100 [facility] Comment on above: Result Comment: [place] Glucose Reference Range is dependent on time and content of last meal. Glucose of more than 200 mg/dL in a nonstressed, ambulatory subject supports the diagnosis of Diabetes Mellitus. ADA recommended reference range Performed By: #### C MP, CBC, LIPASE #### [facility] [address] Potassium [Moles/Vol] 3.2 mmol/L Low 3.5-5.1 [facility] Comment on above: Performed By: #### C MP, CBC, LIPASE #### [facility] [address] Protein [Mass/Vol] 6.4 g/dL Normal 6.1-7.9 [facility] Comment on above: Performed By: #### C MP, CBC, LIPASE #### [facility] [address] Sodium [Moles/Vol] 139 mmol/L Normal 136-146 [facility] Comment on above: Performed By: #### C MP, CBC, LIPASE #### [facility] [address] [place] [address] [place] Urea nitrogen [Mass/Vol] 4 mg/dL Low 9-23 [facility] Comment on above: Performed By: #### C MP, CBC, LIPASE #### [facility] [address] [place] [address] [place] Creatinine and Glomerular fi ltration rate.predicted panel (S/P/Bld)Ordered By: Salvador Maier on 07-22-2022 Creatinine [Mass/Vol] 0.68 mg/dL 0.44-1.03 [facility] Eosinophils Auto (Bld) [#/Vo l]Ordered By: Salvador Maier on 07-22-2022 Eosinophils (Bld) [#/Vol] 0.4 10*3/uL 0.0-0.45 [facility] Eosinophils/100 WBC Auto (Bl d)Ordered By: Salvador Maier on 07-22-2022 Eosinophils/100 WBC (Bld) 4.1 % . [facility] Erythrocyte distribution wid th Auto (RBC) [Ratio]Ordered By: Salvador Maier on 07-22-2022 Erythrocyte distribution width (RBC) [Ratio] 14.7 % 11.9-15.3 [facility] Estimated glomerular filtrat ion rate (GFR) non- AmericanOrdered By: Salvador Maier on 07-22-2022 GFR/1.73 sq M.predicted among non-blacks MDRD (S/P/Bld) [Vol rate/Area] > 60 mL/Min [facility] Globulin Calc (S) [Mass/Vol] Ordered By: Salvador Maier on 07-22-2022 Globulin (S) [Mass/Vol] 2.5 g/dL [facility] HCG ( test) IA.rapi d Ql (U)Ordered By: Salvador Maier on 07-22-2022 HCG ( test) Ql (U) Negative [facility] HCG,Urineon 07-22-2022 Beta HCG ( test) Ql (U) Negative Normal [facility] Comment on above: Result Comment: PERF ORMED BY: [place] [address] PATHOLOGIST INTELLECTUAL PROPERTY MANAGER MARINE WARD M.D. Performed By: #### U HCG #### [address] Hematocrit Auto (Bld) [Volum e fraction]Ordered By: Salvador Maier on 07-22-2022 Hematocrit (Bld) [Volume fraction] 40.9 % 34.0-46.4 [facility] Hemoglobin [Mass/volume] in BloodOrdered By: Salvador Maier on 07-22-2022 Hemoglobin (Bld) [Mass/Vol] 13.3 g/dL 11.8-15.4 [facility] Ketones Auto test strip (U) [Mass/Vol]Ordered By: Salvador Maier on 07-22-2022 Ketones (U) [Mass/Vol] Negative Negative [facility] - Chemistry and C hemistry - challengeOrdered By: Salvador Maier on 07-22-2022 Lipase [Catalytic activity/Vol] 70.0 U/L [facility] Leukocytes [#/volume] correc zakia for nucleated erythrocytes in Blood by Automated counOrdered By: Salvador Maier on 07-22-2022 WBC corrected for nucl RBC Auto (Bld) [#/Vol] 8.8 10*3/uL 3.8-11.6 [facility] Lipaseon 07-22-2022 Lipase [Catalytic activity/Vol] 70.0 U/L High 22-51 [facility] Comment on above: Result Comment: PERF ORMED BY: [facility] [address] [place] [address] PATHOLOGIST INTELLECTUAL PROPERTY MANAGER MARINE WARD M.D. Performed By: #### C MP, CBC, LIPASE #### [facility] [address] Lymphocytes Auto (Bld) [#/Vo l]Ordered By: Salvador Maier on 07-22-2022 Lymphocytes (Bld) [#/Vol] 3.1 10*3/uL 1.00-4.8 [facility] Lymphocytes/100 WBC Auto (Bl d)Ordered By: Salvador Maier on 07-22-2022 Lymphocytes/100 WBC (Bld) 35.0 % . [facility] MCH Auto (RBC) [Entitic mass ]Ordered By: Salvador Maier on 07-22-2022 MCH (RBC) [Entitic mass] 30.2 pg 24.7-34.3 [facility] MCHC Auto (RBC) [Mass/Vol]Or dered By: Salvador Maier on 07-22-2022 MCHC (RBC) [Mass/Vol] 32.6 g/dL 32.0-35.0 [facility] MCV Auto (RBC) [Entitic vol] Ordered By: Salvador Maier on 07-22-2022 MCV (RBC) [Entitic vol] 92.6 fL 80-100 [facility] Monocyte distribution width [Entitic volume] in Blood by AutomatedOrdered By: Salvador Maier on 07-22-2022 Monocyte distribution width Auto (Bld) [Entitic vol] 20.62 % 0.00-20.00 [facility] Comment on above: For adults in ED, MD W > 20.0 may be associated with a higher risk of sepsis during the first 12 hrs of hospital admission Monocytes Auto (Bld) [#/Vol] Ordered By: Salvador Maier on 07-22-2022 Monocytes (Bld) [#/Vol] 0.6 10*3/uL 0.0-0.8 [facility] Monocytes/100 WBC Auto (Bld) Ordered By: Salvador Maier on 07-22-2022 Monocytes/100 WBC (Bld) 7.1 % . [facility] Neutrophils Auto (Bld) [#/Vo l]Ordered By: Salvador Maier on 07-22-2022 Neutrophils (Bld) [#/Vol] 4.6 10*3/uL 1.8-7.7 [facility] Neutrophils/100 WBC Auto (Bl d)Ordered By: Salvador Maier on 07-22-2022 Neutrophils/100 WBC (Bld) 52.8 % . [facility] Nitrite Test strip Ql (U)Ord ered By: Salvador Maier on 07-22-2022 Nitrite Ql (U) Negative Negative [facility] No Panel InformationOrdered By: Salvador Maier on 07-22-2022 Estimated GFR () > 60 mL/Min [facility] Comment on above: GFR estimated refere nce range: According to KDOQI guidelines, <60 ml/min/1.73m2 is sufficient to diagnose a patient with chronic kidney disease. Pharmacy Creatinine Clearance (Chem 90.47 [facility] Nucleated erythrocytes [Pres ence] in Blood by Automated countOrdered By: Salvador Maier on 07-22-2022 Nucleated RBC Auto Ql (Bld) 0.2 /100{WBC} 0-0.5 [facility] Platelet mean volume Auto (B ld) [Entitic vol]Ordered By: Salvador Maier on 07-22-2022 Platelet mean volume (Bld) [Entitic vol] 9.1 fL 6.3-10.7 [facility] Platelets Auto (Bld) [#/Vol] Ordered By: Salvador Maier on 07-22-2022 Platelets (Bld) [#/Vol] 202 10*3/uL 150-450 [facility] Protein Auto test strip (U) [Mass/Vol]Ordered By: Salvador Maier on 07-22-2022 Protein (U) [Mass/Vol] Negative Negative [facility] Protein [Mass/volume] in Ser um or PlasmaOrdered By: Salvador Maier on 07-22-2022 Protein [Mass/Vol] 6.4 g/dL 6.1-7.9 [facility] RBC Auto (Bld) [#/Vol]Ordere d By: Salvador Maier on 07-22-2022 RBC (Bld) [#/Vol] 4.42 10*6/uL 3.60-5.00 [facility] Serum or plasma alanine mckeon otransferase measurement without P-5'-P (enzymatic activiOrdered By: Salvador Maier on 07-22-2022 ALT No additional P-5'-P [Catalytic activity/Vol] 12 U/L 10-60 [facility] Serum or plasma albumin/glob ulin mass ratioOrdered By: Salvador Maier on 07-22-2022 Albumin/Globulin [Mass ratio] 1.6 {ratio} [facility] Serum or plasma alkaline kamron sphatase measurement (enzymatic activity/volume)Ordered By: Salvador Maier on 07-22-2022 ALP [Catalytic activity/Vol] 109 U/L 32-92 [facility] Serum or plasma anion gap de terminationOrdered By: Salvador Maier on 07-22-2022 Anion gap [Moles/Vol] 13.2 mmol/L 6.0-15.0 [facility] Serum or plasma aspartate am inotransferase measurement (enzymatic activity/volume)Ordered By: Salvador Maier on 07-22-2022 AST [Catalytic activity/Vol] 16 U/L 10-42 [facility] Serum or plasma calcium kunal urement (mass/volume)Ordered By: Salvador Maier on 07-22-2022 Calcium [Mass/Vol] 8.8 mg/dL 8.2-10.2 [facility] Serum or plasma chloride chacorta surement (moles/volume)Ordered By: Salvador Maier on 07-22-2022 Chloride [Moles/Vol] 103 mmol/L 95-114 [facility] Serum or plasma glucose kunal urement (mass/volume)Ordered By: Salvador Maier on 07-22-2022 Glucose [Mass/Vol] 102 mg/dL 70-100 [facility] Comment on above: ADA recommended refe rence rangeRandom Glucose Reference Range is dependent on time and content of last meal. Glucose of more than 200 mg/dL in a nonstressed, ambulatory subject supports the diagnosis of Diabetes Mellitus. Serum or plasma potassium me asurement (moles/volume)Ordered By: Salvador Maier on 07-22-2022 Potassium [Moles/Vol] 3.2 mmol/L 3.5-5.1 [facility] Serum or plasma sodium measu rement (moles/volume)Ordered By: Salvador Maier on 07-22-2022 Sodium [Moles/Vol] 139 mmol/L 136-146 [facility] Serum or plasma total biliru bin measurement (mass/volume)Ordered By: Salvador Maier on 07-22-2022 Bilirubin [Mass/Vol] 0.3 mg/dL 0.3-1.2 [facility] Serum or plasma total carbon dioxide measurement (moles/volume)Ordered By: Salvador Maier on 07-22-2022 CO2 [Moles/Vol] 26.0 mmol/L 22.0-30.0 [facility] Serum or plasma urea nitroge n measurement (mass/volume)Ordered By: Salvador Maier on 07-22-2022 Urea nitrogen [Mass/Vol] 4 mg/dL 9-23 [facility] Specific gravity Auto test s trip (U) [Rel density]Ordered By: Salvador Maier on 07-22-2022 Specific gravity (U) [Rel density] 1.004 1.001-1.030 [facility] Urinalysison 07-22-2022 Appearance (U) Clear Normal Clear [facility] Comment on above: Order Comment: Name Collection Type:: Clean-Voided Midstream Performed By: #### C UU #### [facility] [address] [place] [address] [place] Bilirubin,Urine Negative Normal Negative [facility] Comment on above: Order Comment: Name Collection Type:: Clean-Voided Midstream Performed By: #### C UU #### [facility] [address] [place] [address] [place] Color (U) Yellow Normal Yellow [facility] Comment on above: Order Comment: Name Collection Type:: Clean-Voided Midstream Performed By: #### C UU #### [facility] [address] [place] [id number] [place] Glucose Ql (U) Normal Normal Normal [facility] Comment on above: Order Comment: Name Collection Type:: Clean-Voided Midstream Performed By: #### C UU #### [facility] [address] [place] [address] [place] Ketones Ql (U) Negative Normal Negative [facility] Comment on above: Order Comment: Name Collection Type:: Clean-Voided Midstream Performed By: #### C UU #### [address] Leukocyte esterase Test strip Ql (U) Negative Normal Negative [facility] Comment on above: Order Comment: Name Collection Type:: Clean-Voided Midstream Performed By: #### C UU #### [place] [address] [place] Nitrite,Urine Negative Normal Negative [facility] Comment on above: Order Comment: Name Collection Type:: Clean-Voided Midstream Performed By: #### C UU #### [address] Occult Blood,Urine Negative Normal Negative [facility] Comment on above: Order Comment: Name Collection Type:: Clean-Voided Midstream Result Comment: PERF ORMED BY: [place] [address] PATHOLOGIST INTELLECTUAL PROPERTY MANAGER MARINE WARD M.D. Performed By: #### C UU #### [place] [address] [place] pH (U) 7.0 [pH] Normal 5.0-9.0 [facility] Comment on above: Order Comment: Name Collection Type:: Clean-Voided Midstream Performed By: #### C UU #### [place] [address] [place] Protein,Urine Negative Normal Negative [facility] Comment on above: Order Comment: Name Collection Type:: Clean-Voided Midstream Performed By: #### C UU #### [place] [address] [place] Specificy [place],Urine 1.004 Normal 1.001-1.030 [facility] Comment on above: Order Comment: Name Collection Type:: Clean-Voided Midstream Performed By: #### C UU #### [facility] [address] [place] [address] [place] Urobilinogen,Urine Normal Normal Normal [facility] Comment on above: Order Comment: Name Collection Type:: Clean-Voided Midstream Performed By: #### C UU #### [facility] [address] [place] [address] [place] Urine clarity by refractomet ry automatedOrdered By: Salvador Maier on 07-22-2022 Clarity Refractometry automated (U) Clear Clear [facility] Urine glucose measurement by automated test strip (mass/volume)Ordered By: Salvador Maier on 07-22-2022 Glucose Auto test strip (U) [Mass/Vol] Normal mg/dL Normal [facility] Urine hemoglobin detection b y automated test stripOrdered By: Salvador Maier on 07-22-2022 Hemoglobin Auto test strip Ql (U) Negative Negative [facility] Urine leukocyte esterase det ection by automated test stripOrdered By: Salvador Maier on 07-22-2022 Leukocyte esterase Auto test strip Ql (U) Negative Negative [facility] Urobilinogen Auto test strip (U) [Mass/Vol]Ordered By: Salvador Maier on 07-22-2022 Urobilinogen (U) [Mass/Vol] Normal mg/dL Normal [facility] WBC Auto (Bld) [#/Vol]Ordere d By: Salvador Maier on 07-22-2022 WBC (Bld) [#/Vol] 8.8 10*3/uL 3.8-11.6 [facility] pH Auto test strip (U)Ordere d By: Salvador Maier on 07-22-2022 pH (U) 7.0 [pH] 5.0-9.0 [facility] CBC AUTO DIFFon 07-21-2022 BASO # 0.0 103/ul Normal 0.0-0.1 [facility] Comment on above: Performed By: #### C BC ####[facility] [address] [place] [address]DrGideon Ruthie Pan Basophils/100 WBC (Bld) 0.5 % Normal 0.2-2.0 [facility] Comment on above: Performed By: #### C BC ####[facility] [address] [place] [address]Dr. Ruthie Pan EO # 0.5 103/ul Normal 0.0-0.7 [facility] Comment on above: Performed By: #### C BC ####[facility] [address] [place], [place] [address]Dr. Ruthie Pan Eosinophils/100 WBC (Bld) 5.8 % Normal 0.9-7.0 [facility] Comment on above: Performed By: #### C BC ####[facility] [address] [place], [place] [address]Dr. Ruthie Pan Erythrocyte distribution width (RBC) [Ratio] 14.0 % Normal 11.0-15.0 [facility] Comment on above: Performed By: #### C BC ####[facility] [address] [place], [place] [address]Dr. Ruthie Pan Hematocrit (Bld) [Volume fraction] 38.9 % Normal 36.0-48.0 [facility] Comment on above: Performed By: #### C BC ####[facility] [address] [place], [place] [address]Dr. Ruthie Pan Hemoglobin (Bld) [Mass/Vol] 13.0 g/dL Normal 12.0-16.0 [facility] Comment on above: Performed By: #### C BC ####[facility] [address] [place], [place] [address]Dr. Ruthie Pan IG # 0.02 10e3/ul Normal 0.00-0.03 [facility] Comment on above: Performed By: #### C BC ####[facility] [address] [place], [place] [address]Dr. Ruthie Pan IG % 0.3 % Normal 0.0-0.5 [facility] Comment on above: Performed By: #### C BC ####[facility] [address] [place], [place] [address]Dr. Ruthie Pan LYMPH # 2.8 103/ul Normal 1.2-3.8 [facility] Comment on above: Performed By: #### C BC ####[facility] [address] [place] [id number]. Michaelajean-claude Pan Lymphocytes/100 WBC (Bld) 36.0 % Normal 20.5-60.0 [facility] Comment on above: Performed By: #### C BC ####[facility] [address] [place] [id number]. Ruthie Pan MANUAL DIFF REQ NO Normal [facility] Comment on above: Performed By: #### C BC ####[facility] [address] [place] [id number]. Ruthie Pan MCH (RBC) [Entitic mass] 30.6 pg Normal 26.7-34.0 [facility] Comment on above: Performed By: #### C BC ####[facility] [address] [place], [place] [address]Dr. Ruthie Pan MCHC (RBC) [Mass/Vol] 33.4 g/dL Normal 29.9-35.2 [facility] Comment on above: Performed By: #### C BC ####[facility] [address] [address]Dr. Ruthie Pan MCV (RBC) [Entitic vol] 91.5 fL Normal 81.0-99.0 [facility] Comment on above: Performed By: #### C BC ####[facility] [address] [place], [place] [address]Dr. Ruthie Pan MONO # 0.6 103/ul Normal 0.3-0.8 [facility] Comment on above: Performed By: #### C BC ####[facility] [address] [place], [place] [address]Dr. Ruthie Pan Monocytes/100 WBC (Bld) 7.9 % Normal 1.7-12.0 [facility] Comment on above: Performed By: #### C BC ####[facility] [address] [place], [place] [address]Dr. Ruthie Pan NEUT # 3.8 103/ul Normal 1.4-6.5 [facility] Comment on above: Performed By: #### C BC ####[facility] [address] [place] [address] [address]Dr. Ruthie Pan Neutrophils/100 WBC (Bld) 49.5 % Normal 43.0-75.0 [facility] Comment on above: Performed By: #### C BC ####[facility] [address] [place] [address]Dr. Ruthie Pan Platelet mean volume (Bld) [Entitic vol] 10.6 fL Normal 9.5-13.5 [facility] Comment on above: Performed By: #### C BC ####[facility] [address] [place] [address]Dr. Ruthie Pan PLT 201 103/ul Normal 150-450 [facility] Comment on above: Performed By: #### C BC ####[facility] [address] [place] [address]Dr. Ruthie Pan RBC 4.25 106/ul Normal 4.20-5.40 [facility] Comment on above: Performed By: #### C BC ####[facility] [address] [place] [address]Dr. Ruthie Pan WBC 7.8 103/ul Normal 4.0-11.0 [facility] Comment on above: Performed By: #### C BC ####[facility] [address] [place] [address]Dr. Ruthie Pan ER URINE PROFILEon 3 Bilirubin Ql (U) Negative Normal NEGATIVE The [facility] Comment on above: Performed By: #### U MICRO, ERUR #### [facility] [address] [place] [address] Dr. Ruthie Pan Clarity (U) CLEAR Normal CLEAR [facility] Comment on above: Performed By: #### U MICRO, ERUR #### [facility] [address] [place] [address] Dr. Ruthie Pan Color (U) LT. YELLOW Normal YELLOW [facility] Comment on above: Performed By: #### U MICRO, ERUR #### [facility] [address] [place] [address] Dr. Ruthie ARELLANO A micrscopic examination will be performed if indicated. Normal [facility] Comment on above: Performed By: #### U MICRO, ERUR #### [facility] [address] [address] [address] Ruthie Pan Glucose Ql (U) Negative Normal NEGATIVE [facility] Comment on above: Performed By: #### U MICRO, ERUR #### [facility] [address] [address] [address] Ruthie Pan Hemoglobin Ql (U) TRACE-LYSED Abnormal NEGATIVE [facility] Comment on above: Performed By: #### U MICRO, ERUR #### [facility] [address] [address] [address] Ruthie Pan Ketones Ql (U) Negative Normal NEGATIVE The [facility] Comment on above: Performed By: #### U MICRO, ERUR #### [facility] [address] [place] [address] Dr. Ruthie Pan LEUKOCYTES Negative Normal NEGATIVE [facility] Comment on above: Performed By: #### U MICRO, ERUR #### [facility] [address] [address] [address] Ruthie Pan Nitrite Ql (U) Negative Normal NEGATIVE [facility] Comment on above: Performed By: #### U MICRO, ERUR #### [facility] [address] [place] [address] Dr. Ruthie Pan pH (U) 6.5 [pH] Normal 5-9 [facility] Comment on above: Performed By: #### U MICRO, ERUR #### [facility] [address] [address] [address] Ruthie Pan SPEC GRAVITY <=1.005 Abnormal 1.005-<=1.02 5 [facility] Comment on above: Performed By: #### U MICRO, ERUR #### [facility] [address] [address] [address] Ruthie Pan UA PROTEIN Negative Normal NEGATIVE/ TRACE [facility] Comment on above: Performed By: #### U MICRO, ERUR #### [facility] [address] [address] [address] Ruthie Pan UR MICRO IND INDICATED Normal [facility] Comment on above: Performed By: #### U MICRO, ERUR #### [facility] [address] [address] [address] Ruthie Pan Urobilinogen Qn (U) 0.2 {Harjeet'U}/dL Normal 0.2 - 1. 0 [facility] Comment on above: Performed By: #### U MICRO, ERUR #### [facility] [address] [address] [address] Ruthie Pan LACTATE/LACTIC ACIDon 2022 Lactate [Moles/Vol] 0.7 mmol/L Normal 0.4-1.9 [facility] Comment on above: Performed By: #### L ACT ####[facility] [address] [place] [address]DrGideon Pan LIPASEon 07-21-2022 Lipase [Catalytic activity/Vol] 97.0 U/L Normal 73.0-393.0 [facility] Comment on above: Performed By: #### L IPA, CMP ####[facility] [address] [place], [place] [address]DrGideon Pan PROF 14(COMP METB)on 023 Albumin [Mass/Vol] 3.6 g/dL Normal 3.4-5.0 [facility] Comment on above: Performed By: #### L IPA, CMP ####[facility] [address] [place] [address]DrGideon Pan Albumin/Globulin [Mass ratio] 1.3 {ratio} Normal [facility] Comment on above: Performed By: #### L IPA, CMP ####[facility] [address] [place], [place] [address]DrGideon Pan ALP [Catalytic activity/Vol] 129 U/L Critically high 46-116 [facility] Comment on above: Performed By: #### L IPA, CMP ####[facility] [address] [place], [place] [address]DrGideon Pan ALT [Catalytic activity/Vol] 13 U/L Critically low 14-59 [facility] Comment on above: Performed By: #### L IPA, CMP ####[facility] [address] [place] [address]Dr. Ruthie Pan Anion gap [Moles/Vol] 10.0 mmol/L Normal [facility] Comment on above: Performed By: #### L IPA, CMP ####[facility] [address]ycl[address] [place], [place] [address]Dr. Ruthie Pan AST [Catalytic activity/Vol] 13 U/L Critically low 15-37 [facility] Comment on above: Performed By: #### L IPA, CMP ####[facility] [address] [place], [place] [address]Dr. Ruthie Pan Bilirubin [Mass/Vol] 0.2 mg/dL Normal 0.2-1.0 [facility] Comment on above: Performed By: #### L IPA, CMP ####[facility] [address] [place], [place] [address]Dr. Ruthie Pan Calcium [Mass/Vol] 8.5 mg/dL Normal 8.5-10.1 [facility] Comment on above: Performed By: #### L IPA, CMP ####[facility] [address] [place], [place] [address]Dr. Ruthie Pan Chloride [Moles/Vol] 104 mmol/L Normal 98-107 [facility] Comment on above: Performed By: #### L IPA, CMP ####[facility] [address]ht[address] [place], [place] [address]Dr. Ruthie Pan CO2 [Moles/Vol] 29.6 mmol/L Normal 21.0-32.0 [facility] Comment on above: Performed By: #### L IPA, CMP ####[facility] [address] [place], [place] [address]Dr. Ruthie Pan Creatinine [Mass/Vol] 0.67 mg/dL Normal 0.55-1.02 [facility] Comment on above: Performed By: #### L IPA, CMP ####[facility] [address] [place] [id number]. Ruthie Pan EGFR-AF BERMUDIAN >60 Normal >=60 The [facility] Comment on above: Performed By: #### L IPA, CMP ####[facility] [address] [place], [place] [address]Dr. Ruthie Pan EGFR-NON AF BERMUDIAN >60 Normal >=60 [facility] Comment on above: Performed By: #### L IPA, CMP ####[facility] [address] [place], [place] [address]Dr. Ruthie Pan Globulin (S) [Mass/Vol] 2.8 g/dL Normal T [facility] Comment on above: Performed By: #### L IPA, CMP ####[facility] [address] [place], [place] [address]Dr. Ruthie Pan Glucose [Mass/Vol] 106 mg/dL Normal 74-106 [facility] Comment on above: Performed By: #### L IPA, CMP ####[facility] [address] [place], [place] [address]Dr. Ruthie Pan Potassium [Moles/Vol] 3.6 mmol/L Normal 3.5-5.1 [facility] Comment on above: Performed By: #### L IPA, CMP ####[facility] [address] [place], [place] [address]Dr. Ruthie Pan Protein [Mass/Vol] 6.4 g/dL Normal 6.4-8.2 The [facility] Comment on above: Performed By: #### L IPA, CMP ####[facility] [address] [place], [place] [address]Dr. Ruthie Pan Sodium [Moles/Vol] 140 mmol/L Normal 136-145 The [facility] Comment on above: Performed By: #### L IPA, CMP ####[facility] [address] [place], [place] [address]Dr. Ruthie Pan Urea nitrogen [Mass/Vol] 4.0 mg/dL Critically low 7.0-18. 0 [facility] Comment on above: Performed By: #### L IPA, CMP ####[facility] [address] [place] [address]Dr. Ruthie Pan Urea nitrogen/Creatinine [Mass ratio] 6.0 mg/mg Normal [facility] Comment on above: Performed By: #### L IPA, CMP ####[facility] [address] [place] [id number]. Ruthie Pan URINE MICROSCOPIC ONLYon BACTERIA NONE SEEN Normal NONE SEEN [facility] Comment on above: Performed By: #### U MICRO, ERUR #### [facility] [address] [address] [address] Ruthie Pan Bacteria identified Cx Nom (U) NOT INDICATED Normal [facility] Comment on above: Performed By: #### U MICRO, ERUR #### [facility] [address] [place] [address] Dr. Ruthie Pan CAST NONE SEEN Normal NONE SEEN [facility] Comment on above: Performed By: #### U MICRO, ERUR #### [facility] [address] [address] [address] Ruthie Pan Crystals LM Nom (Urine sed) NONE SEEN Normal NONE SEEN [facility] Comment on above: Performed By: #### U MICRO, ERUR #### [facility] [address] [place] [address] Dr. Ruthie Pan Epithelial cells LM Ql (Urine sed) FEW Abnormal NONE SEEN /RARE [facility] Comment on above: Performed By: #### U MICRO, ERUR #### [facility] [address] [address] [address] Ruthie Pan MUCOUS NONE SEEN Normal NONE SEEN [facility] Comment on above: Performed By: #### U MICRO, ERUR #### [facility] [address] [address] [address] Ruthie Pan RBC 0-2 Normal 0-2 [facility] Comment on above: Performed By: #### U MICRO, ERUR #### [facility] [address] [address] [address] Ruthie aPn WBC 0-2 Abnormal NONE SEEN [facility] Comment on above: Performed By: #### U MICRO, ERUR #### [facility] [address] [address] [address] Ruthie Pan US SINGLE QUAD RT [...] KAE VILLALPANDO Date: 2022-07-21 20:21 Normal [facility] Albumin [Mass/volume] in Ser um or PlasmaOrdered By: Rufina Ruiz on 07-20-2022 Albumin [Mass/Vol] 3.8 g/dL 3.2-5.5 [facility] Amylaseon 07-20-2022 Amylase [Catalytic activity/Vol] 129 U/L High 28-100 [facility] Comment on above: Order Comment: Reaso n for Exam Upper abdominal pain;History of pancreatitis Reason for Exam Upper abdominal pain Reason for Exam Vitamin B12 deficiency anemia, unspecified Reason for Exam Anxiety Performed By: #### C MP, ROSALIA, CBC, THYROID SC, LIPID, B12, LIPASE, CUU #### [address] Basophils Auto (Bld) [#/Vol] Ordered By: Rufina Ruiz on 07-20-2022 Basophils (Bld) [#/Vol] 0.1 10*3/uL 0.0-0.2 [facility] Basophils/100 WBC Auto (Bld) Ordered By: Rufina Ruiz on 07-20-2022 Basophils/100 WBC (Bld) 1.2 % . [facility] Cholesterol [Mass/volume] in Serum or PlasmaOrdered By: Rufina Ruiz on 07-20-2022 Cholesterol [Mass/Vol] 183 mg/dL 140-200 [facility] Comment on above: Chol less than 200 m g/dl low riskChol 201-239 mg/dl borderline riskChol 240 mg/dl and greater high risk Cholesterol in LDL Calc [Mas s/Vol]Ordered By: Rufina Ruiz on 07-20-2022 Cholesterol in LDL [Mass/Vol] 104 mg/dL 0-100 [facility] Comment on above: LDL ATP III CLASSIFI CATIONLDL less than 100 mg/dL OptimalLDL 100-129 mg/dL Near or above optimalLDL 130-159 mg/dL Borderline highLDL 160-189 mg/dL HighLDL greater than 189 mg/dL Very high Cholesterol in VLDL Calc [Ma ss/Vol]Ordered By: Rufina Ruiz on 07-20-2022 Cholesterol in VLDL [Mass/Vol] 26 mg/dL [facility] Complete Blood Count Auto Di ffon 07-20-2022 Basophils (Bld) [#/Vol] 0.1 10*3/uL Normal 0.0-0.2 [facility] Comment on above: Order Comment: Reaso n for Exam Upper abdominal pain;History of pancreatitis Result Comment: PERF ORMED BY: [place] [address] PATHOLOGIST [employer] MARINE WARD M.D. Performed By: #### C MP, ROSALIA, CBC, THYROID SC, LIPID, B12, LIPASE, CUU #### [address] Basophils/100 WBC (Bld) 1.2 % Normal . [facility] Comment on above: Order Comment: Reaso n for Exam Upper abdominal pain;History of pancreatitis Performed By: #### C MP, ROSALIA, CBC, THYROID SC, LIPID, B12, LIPASE, CUU #### [address] Eosinophils (Bld) [#/Vol] 0.3 10*3/uL Normal 0.0-0.45 [facility] Comment on above: Order Comment: Reaso n for Exam Upper abdominal pain;History of pancreatitis Performed By: #### C MP, ROSALIA, CBC, THYROID SC, LIPID, B12, LIPASE, CUU #### [address] Eosinophils/100 WBC (Bld) 3.0 % Normal . [facility] Comment on above: Order Comment: Reaso n for Exam Upper abdominal pain;History of pancreatitis Performed By: #### C MP, ROSALIA, CBC, THYROID SC, LIPID, B12, LIPASE, CUU #### [address] Erythrocyte distribution width (RBC) [Ratio] 14.5 % Normal 11.9-15.3 [facility] Comment on above: Order Comment: Reaso n for Exam Upper abdominal pain;History of pancreatitis Performed By: #### C MP, ROSALIA, CBC, THYROID SC, LIPID, B12, LIPASE, CUU #### [address] Hematocrit (Bld) [Volume fraction] 40.8 % Normal 34.0-46.4 [facility] Comment on above: Order Comment: Reaso n for Exam Upper abdominal pain;History of pancreatitis Performed By: #### C MP, ROSALIA, CBC, THYROID SC, LIPID, B12, LIPASE, CUU #### [address] Hemoglobin (Bld) [Mass/Vol] 13.4 g/dL Normal 11.8-15.4 [facility] Comment on above: Order Comment: Reaso n for Exam Upper abdominal pain;History of pancreatitis Performed By: #### C MP, ROSALIA, CBC, THYROID SC, LIPID, B12, LIPASE, CUU #### [address] Lymphocytes (Bld) [#/Vol] 3.1 10*3/uL Normal 1.00-4.8 [facility] Comment on above: Order Comment: Reaso n for Exam Upper abdominal pain;History of pancreatitis Performed By: #### C MP, ROSALIA, CBC, THYROID SC, LIPID, B12, LIPASE, CUU #### [address] Lymphocytes/100 WBC (Bld) 36.6 % Normal . [facility] Comment on above: Order Comment: Reaso n for Exam Upper abdominal pain;History of pancreatitis Performed By: #### C MP, ROSALIA, CBC, THYROID SC, LIPID, B12, LIPASE, CUU #### [address] MCH (RBC) [Entitic mass] 30.4 pg Normal 24.7-34.3 [facility] Comment on above: Order Comment: Reaso n for Exam Upper abdominal pain;History of pancreatitis Performed By: #### C MP, ROSALIA, CBC, THYROID SC, LIPID, B12, LIPASE, CUU #### [address] MCV (RBC) [Entitic vol] 92.7 fL Normal 80-100 [facility] Comment on above: Order Comment: Reaso n for Exam Upper abdominal pain;History of pancreatitis Performed By: #### C MP, ROSALIA, CBC, THYROID SC, LIPID, B12, LIPASE, CUU #### [address] Mean Corpuscular HGB Conc 32.8 g/dL Normal 32.0-35.0 [facility] Comment on above: Order Comment: Reaso n for Exam Upper abdominal pain;History of pancreatitis Performed By: #### C MP, ROSALIA, CBC, THYROID SC, LIPID, B12, LIPASE, CUU #### [address] Monocytes (Bld) [#/Vol] 0.6 10*3/uL Normal 0.0-0.8 [facility] Comment on above: Order Comment: Reaso n for Exam Upper abdominal pain;History of pancreatitis Performed By: #### C MP, ROSALIA, CBC, THYROID SC, LIPID, B12, LIPASE, CUU #### [facility] [address] Monocytes/100 WBC (Bld) 7.0 % Normal . [facility] Comment on above: Order Comment: Reaso n for Exam Upper abdominal pain;History of pancreatitis Performed By: #### C MP, ROSALIA, CBC, THYROID SC, LIPID, B12, LIPASE, CUU #### [facility] [address] Neutrophils (Bld) [#/Vol] 4.4 10*3/uL Normal 1.8-7.7 [facility] Comment on above: Order Comment: Reaso n for Exam Upper abdominal pain;History of pancreatitis Performed By: #### C MP, ROSALIA, CBC, THYROID SC, LIPID, B12, LIPASE, CUU #### [address] Neutrophils/100 WBC (Bld) 52.2 % Normal . [facility] Comment on above: Order Comment: Reaso n for Exam Upper abdominal pain;History of pancreatitis Performed By: #### C MP, ROSALIA, CBC, THYROID SC, LIPID, B12, LIPASE, CUU #### [address] NRBC% 0.2 /100{WBC} Normal 0-0.5 [facility] Comment on above: Order Comment: Reaso n for Exam Upper abdominal pain;History of pancreatitis Performed By: #### C MP, ROSALIA, CBC, THYROID SC, LIPID, B12, LIPASE, CUU #### [address] Platelet mean volume (Bld) [Entitic vol] 10.2 fL Normal 6.3-10.7 [facility] Comment on above: Order Comment: Reaso n for Exam Upper abdominal pain;History of pancreatitis Performed By: #### C MP, ROSALIA, CBC, THYROID SC, LIPID, B12, LIPASE, CUU #### [address] Platelets (Bld) [#/Vol] 183 10*3/uL Normal 150-450 [facility] Comment on above: Order Comment: Reaso n for Exam Upper abdominal pain;History of pancreatitis Performed By: #### C MP, ROSALIA, CBC, THYROID SC, LIPID, B12, LIPASE, CUU #### [facility] [address] RBC (Bld) [#/Vol] 4.40 10*6/uL Normal 3.60-5.00 [facility] Comment on above: Order Comment: Reaso n for Exam Upper abdominal pain;History of pancreatitis Performed By: #### C MP, ROSALIA, CBC, THYROID SC, LIPID, B12, LIPASE, CUU #### [facility] [address] WBC (Bld) [#/Vol] 8.5 10*3/uL Normal 3.8-11.6 [facility] Comment on above: Order Comment: Reaso n for Exam Upper abdominal pain;History of pancreatitis Performed By: #### C MP, ROSALIA, CBC, THYROID SC, LIPID, B12, LIPASE, CUU #### [address] Comprehensive Metabolic Pane louise 07-20-2022 Albumin [Mass/Vol] 3.8 g/dL Normal 3.2-5.5 [facility] Comment on above: Order Comment: Reaso n for Exam Upper abdominal pain;History of pancreatitis Reason for Exam Upper abdominal pain Reason for Exam Vitamin B12 deficiency anemia, unspecified Reason for Exam Anxiety Performed By: #### C MP, ROSALIA, CBC, THYROID SC, LIPID, B12, LIPASE, CUU #### [address] Albumin/Globulin [Mass ratio] 1.6 {ratio} Normal [facility] Comment on above: Order Comment: Reaso n for Exam Upper abdominal pain;History of pancreatitis Reason for Exam Upper abdominal pain Reason for Exam Vitamin B12 deficiency anemia, unspecified Reason for Exam Anxiety Performed By: #### C MP, ROSALIA, CBC, THYROID SC, LIPID, B12, LIPASE, CUU #### [address] ALP [Catalytic activity/Vol] 107 U/L High 32-92 [facility] Comment on above: Order Comment: Reaso n for Exam Upper abdominal pain;History of pancreatitis Reason for Exam Upper abdominal pain Reason for Exam Vitamin B12 deficiency anemia, unspecified Reason for Exam Anxiety Performed By: #### C MP, ROSALIA, CBC, THYROID SC, LIPID, B12, LIPASE, CUU #### [facility] [address] ALT [Catalytic activity/Vol] 10 U/L Normal 10-60 [facility] Comment on above: Order Comment: Reaso n for Exam Upper abdominal pain;History of pancreatitis Reason for Exam Upper abdominal pain Reason for Exam Vitamin B12 deficiency anemia, unspecified Reason for Exam Anxiety Performed By: #### C MP, ROSALIA, CBC, THYROID SC, LIPID, B12, LIPASE, CUU #### [facility] [address] [place] [address] Anion gap [Moles/Vol] 9.5 mmol/L Normal 6.0-15.0 [facility] Comment on above: Order Comment: Reaso n for Exam Upper abdominal pain;History of pancreatitis Reason for Exam Upper abdominal pain Reason for Exam Vitamin B12 deficiency anemia, unspecified Reason for Exam Anxiety Performed By: #### C MP, ROSALIA, CBC, THYROID SC, LIPID, B12, LIPASE, CUU #### [facility] [address] [place] [address] AST [Catalytic activity/Vol] 13 U/L Normal 10-42 [facility] Comment on above: Order Comment: Reaso n for Exam Upper abdominal pain;History of pancreatitis Reason for Exam Upper abdominal pain Reason for Exam Vitamin B12 deficiency anemia, unspecified Reason for Exam Anxiety Performed By: #### C MP, ROSALIA, CBC, THYROID SC, LIPID, B12, LIPASE, CUU #### [facility] [address] [place] [address] [place] Bilirubin [Mass/Vol] 0.3 mg/dL Normal 0.3-1.2 [facility] Comment on above: Order Comment: Reaso n for Exam Upper abdominal pain;History of pancreatitis Reason for Exam Upper abdominal pain Reason for Exam Vitamin B12 deficiency anemia, unspecified Reason for Exam Anxiety Performed By: #### C MP, ROSALIA, CBC, THYROID SC, LIPID, B12, LIPASE, CUU #### [facility] [address] Calcium [Mass/Vol] 8.7 mg/dL Normal 8.2-10.2 [facility] Comment on above: Order Comment: Reaso n for Exam Upper abdominal pain;History of pancreatitis Reason for Exam Upper abdominal pain Reason for Exam Vitamin B12 deficiency anemia, unspecified Reason for Exam Anxiety Performed By: #### C MP, ROSALIA, CBC, THYROID SC, LIPID, B12, LIPASE, CUU #### [facility] [address] Chloride [Moles/Vol] 107 mmol/L Normal 95-114 [facility] Comment on above: Order Comment: Reaso n for Exam Upper abdominal pain;History of pancreatitis Reason for Exam Upper abdominal pain Reason for Exam Vitamin B12 deficiency anemia, unspecified Reason for Exam Anxiety Performed By: #### C MP, ROSALIA, CBC, THYROID SC, LIPID, B12, LIPASE, CUU #### [facility] [address] [place] [address] CO2 [Moles/Vol] 25.4 mmol/L Normal 22.0-30.0 [facility] Comment on above: Order Comment: Reaso n for Exam Upper abdominal pain;History of pancreatitis Reason for Exam Upper abdominal pain Reason for Exam Vitamin B12 deficiency anemia, unspecified Reason for Exam Anxiety Performed By: #### C MP, ROSALIA, CBC, THYROID SC, LIPID, B12, LIPASE, CUU #### [facility] [address] [place] [address] Creatinine [Mass/Vol] 0.64 mg/dL Normal 0.44-1.03 [facility] Comment on above: Order Comment: Reaso n for Exam Upper abdominal pain;History of pancreatitis Reason for Exam Upper abdominal pain Reason for Exam Vitamin B12 deficiency anemia, unspecified Reason for Exam Anxiety Performed By: #### C MP, ROSALIA, CBC, THYROID SC, LIPID, B12, LIPASE, CUU #### [facility] [address] Estimated GFR ( Tabitha > 60 Normal [facility] Comment on above: Order Comment: Reaso n for Exam Upper abdominal pain;History of pancreatitis Reason for Exam Upper abdominal pain Reason for Exam Vitamin B12 deficiency anemia, unspecified Reason for Exam Anxiety Result Comment: GFR estimated reference range: According to KDOQI guidelines, <60 ml/min/1.73m2 is sufficient to diagnose a patient with chronic kidney disease. Performed By: #### C MP, ROSALIA, CBC, THYROID SC, LIPID, B12, LIPASE, CUU #### [facility] [address] Estimated GFR (Non- Am > 60 Normal [facility] Comment on above: Order Comment: Reaso n for Exam Upper abdominal pain;History of pancreatitis Reason for Exam Upper abdominal pain Reason for Exam Vitamin B12 deficiency anemia, unspecified Reason for Exam Anxiety Performed By: #### C MP, ROSALIA, CBC, THYROID SC, LIPID, B12, LIPASE, CUU #### [facility] [address] Globulin (S) [Mass/Vol] 2.4 g/dL Normal [facility] Comment on above: Order Comment: Reaso n for Exam Upper abdominal pain;History of pancreatitis Reason for Exam Upper abdominal pain Reason for Exam Vitamin B12 deficiency anemia, unspecified Reason for Exam Anxiety Performed By: #### C MP, ROSALIA, CBC, THYROID SC, LIPID, B12, LIPASE, CUU #### [facility] [address] Glucose [Mass/Vol] 82 mg/dL Normal 70-100 [facility] Comment on above: Order Comment: Reaso n for Exam Upper abdominal pain;History of pancreatitis Reason for Exam Upper abdominal pain Reason for Exam Vitamin B12 deficiency anemia, unspecified Reason for Exam Anxiety Result Comment: [facility] Glucose Reference Range is dependent on time and content of last meal. Glucose of more than 200 mg/dL in a nonstressed, ambulatory subject supports the diagnosis of Diabetes Mellitus. ADA recommended reference range Performed By: #### C MP, ROSALIA, CBC, THYROID SC, LIPID, B12, LIPASE, CUU #### [facility] [address] Potassium [Moles/Vol] 3.9 mmol/L Normal 3.5-5.1 [facility] Comment on above: Order Comment: Reaso n for Exam Upper abdominal pain;History of pancreatitis Reason for Exam Upper abdominal pain Reason for Exam Vitamin B12 deficiency anemia, unspecified Reason for Exam Anxiety Performed By: #### C MP, ROSALIA, CBC, THYROID SC, LIPID, B12, LIPASE, CUU #### [facility] [address] Protein [Mass/Vol] 6.2 g/dL Normal 6.1-7.9 [facility] Comment on above: Order Comment: Reaso n for Exam Upper abdominal pain;History of pancreatitis Reason for Exam Upper abdominal pain Reason for Exam Vitamin B12 deficiency anemia, unspecified Reason for Exam Anxiety Performed By: #### C MP, ROSALIA, CBC, THYROID SC, LIPID, B12, LIPASE, CUU #### [facility] [address] Sodium [Moles/Vol] 138 mmol/L Normal 136-146 [facility] Comment on above: Order Comment: Reaso n for Exam Upper abdominal pain;History of pancreatitis Reason for Exam Upper abdominal pain Reason for Exam Vitamin B12 deficiency anemia, unspecified Reason for Exam Anxiety Performed By: #### C MP, ROSALIA, CBC, THYROID SC, LIPID, B12, LIPASE, CUU #### [facility] [address] Urea nitrogen [Mass/Vol] 5 mg/dL Low 9-23 [facility] Comment on above: Order Comment: Reaso n for Exam Upper abdominal pain;History of pancreatitis Reason for Exam Upper abdominal pain Reason for Exam Vitamin B12 deficiency anemia, unspecified Reason for Exam Anxiety Performed By: #### C MP, ROSALIA, CBC, THYROID SC, LIPID, B12, LIPASE, CUU #### [facility] [address] Creatinine and Glomerular fi ltration rate.predicted panel (S/P/Bld)Ordered By: Rufina Ruiz on 07-20-2022 Creatinine [Mass/Vol] 0.64 mg/dL 0.44-1.03 [facility] Eosinophils Auto (Bld) [#/Vo l]Ordered By: Rufina Ruiz on 07-20-2022 Eosinophils (Bld) [#/Vol] 0.3 10*3/uL 0.0-0.45 [facility] Eosinophils/100 WBC Auto (Bl d)Ordered By: Rufina Ruiz on 07-20-2022 Eosinophils/100 WBC (Bld) 3.0 % . [facility] Erythrocyte distribution wid th Auto (RBC) [Ratio]Ordered By: Rufina Ruiz on 07-20-2022 Erythrocyte distribution width (RBC) [Ratio] 14.5 % 11.9-15.3 [facility] Estimated glomerular filtrat ion rate (GFR) non- AmericanOrdered By: Rufina Ruiz on 07-20-2022 GFR/1.73 sq M.predicted among non-blacks MDRD (S/P/Bld) [Vol rate/Area] > 60 mL/Min [facility] Globulin Calc (S) [Mass/Vol] Ordered By: Rufina Ruiz on 07-20-2022 Globulin (S) [Mass/Vol] 2.4 g/dL [facility] Hematocrit Auto (Bld) [Volum e fraction]Ordered By: Rufina Ruiz on 07-20-2022 Hematocrit (Bld) [Volume fraction] 40.8 % 34.0-46.4 [facility] Hemoglobin [Mass/volume] in BloodOrdered By: Rufina Ruiz on 07-20-2022 Hemoglobin (Bld) [Mass/Vol] 13.4 g/dL 11.8-15.4 [facility] Laboratory - Chemistry and C hemistry - challengeOrdered By: Rufina Ruiz on 07-20-2022 Cobalamin (Vitamin B12) [Mass/Vol] 137 pg/mL 180-914 [facility] Lipase [Catalytic activity/Vol] 53.0 U/L [facility] Leukocytes [#/volume] correc zakia for nucleated erythrocytes in Blood by Automated counOrdered By: Rufina Ruiz on 07-20-2022 WBC corrected for nucl RBC Auto (Bld) [#/Vol] 8.5 10*3/uL 3.8-11.6 [facility] Lipaseon 07-20-2022 Lipase [Catalytic activity/Vol] 53.0 U/L High [facility] Comment on above: Order Comment: Reaso n for Exam Upper abdominal pain;History of pancreatitis Reason for Exam Upper abdominal pain Reason for Exam Vitamin B12 deficiency anemia, unspecified Reason for Exam Anxiety Performed By: #### C UU #### [facility] [address] [place] [id number] [facility] Lipid Panelon 07-20-2022 Cholesterol [Mass/Vol] 183 mg/dL Normal 140-200 [facility] Comment on above: Order Comment: Reaso n for Exam Upper abdominal pain;History of pancreatitis Reason for Exam Upper abdominal pain Reason for Exam Vitamin B12 deficiency anemia, unspecified Reason for Exam Anxiety Result Comment: Chol less than 200 mg/dl low risk Chol 201-239 mg/dl borderline risk Chol 240 mg/dl and greater high risk Performed By: #### C UU #### [facility] [address] Cholesterol in HDL [Mass/Vol] 53 mg/dL Normal 35-85 [facility] Comment on above: Order Comment: Reaso n for Exam Upper abdominal pain;History of pancreatitis Reason for Exam Upper abdominal pain Reason for Exam Vitamin B12 deficiency anemia, unspecified Reason for Exam Anxiety Result Comment: HDL CHOL ATP-III CLASSIFICATION Cardiovascular Risk HDL > or equal to 60 mg/dL LOW HDL < 40 mg/dL HIGH Performed By: #### C UU #### [facility] [address] Cholesterol.total/Choles terol in HDL [Mass ratio] 3.5 {ratio} Normal <5.0 [facility] Comment on above: Order Comment: Reaso n for Exam Upper abdominal pain;History of pancreatitis Reason for Exam Upper abdominal pain Reason for Exam Vitamin B12 deficiency anemia, unspecified Reason for Exam Anxiety Performed By: #### C UU #### [facility] [address] [place] [id number] [place] LDL Cholesterol,Calculated 104 mg/dL High 0-100 [facility] Comment on above: Order Comment: Reaso n [...] mg/dL Very high Performed By: #### C UU #### [facility] [address] Triglyceride w/Reflex 132 mg/dL Normal 35-149 [facility] Comment on above: Order Comment: Reaso [...] (CDC) test method. Performed By: #### C UU #### [facility] [address] VLDL CHOLESTEROL 26 mg/dL Normal [facility] Comment on above: Order Comment: Reaso n for Exam Upper abdominal pain;History of pancreatitis Reason for Exam Upper abdominal pain Reason for Exam Vitamin B12 deficiency anemia, unspecified Reason for Exam Anxiety Performed By: #### C UU #### [facility] [address] Lymphocytes Auto (Bld) [#/Vo l]Ordered By: Rufina Ruiz on 07-20-2022 Lymphocytes (Bld) [#/Vol] 3.1 10*3/uL 1.00-4.8 [facility] Lymphocytes/100 WBC Auto (Bl d)Ordered By: Rufina Ruiz on 07-20-2022 Lymphocytes/100 WBC (Bld) 36.6 % . [facility] MCH Auto (RBC) [Entitic mass ]Ordered By: Rufina Ruiz on 07-20-2022 MCH (RBC) [Entitic mass] 30.4 pg 24.7-34.3 [facility] MCHC Auto (RBC) [Mass/Vol]Or dered By: Rufina Ruiz on 07-20-2022 MCHC (RBC) [Mass/Vol] 32.8 g/dL 32.0-35.0 [facility] MCV Auto (RBC) [Entitic vol] Ordered By: Rufina Ruiz on 07-20-2022 MCV (RBC) [Entitic vol] 92.7 fL 80-100 [facility] Monocytes Auto (Bld) [#/Vol] Ordered By: Rufina Ruiz on 07-20-2022 Monocytes (Bld) [#/Vol] 0.6 10*3/uL 0.0-0.8 [facility] Monocytes/100 WBC Auto (Bld) Ordered By: Rufina Ruiz on 07-20-2022 Monocytes/100 WBC (Bld) 7.0 % . [facility] Neutrophils Auto (Bld) [#/Vo l]Ordered By: Rufina Ruiz on 07-20-2022 Neutrophils (Bld) [#/Vol] 4.4 10*3/uL 1.8-7.7 [facility] Neutrophils/100 WBC Auto (Bl d)Ordered By: Rufina Ruiz on 07-20-2022 Neutrophils/100 WBC (Bld) 52.2 % . [facility] No Panel InformationOrdered By: Rufina Ruiz on 07-20-2022 Estimated GFR () > 60 mL/Min [facility] Comment on above: GFR estimated refere nce range: According to KDOQI guidelines, <60 ml/min/1.73m2 is sufficient to diagnose a patient with chronic kidney disease. Pharmacy Creatinine Clearance (Chem N/A [facility] Nucleated erythrocytes [Pres ence] in Blood by Automated countOrdered By: Rufina Ruiz on 07-20-2022 Nucleated RBC Auto Ql (Bld) 0.2 /100{WBC} 0-0.5 [facility] Platelet mean volume Auto (B ld) [Entitic vol]Ordered By: Rufina Ruiz on 07-20-2022 Platelet mean volume (Bld) [Entitic vol] 10.2 fL 6.3-10.7 [facility] Platelets Auto (Bld) [#/Vol] Ordered By: Rufina Ruiz on 07-20-2022 Platelets (Bld) [#/Vol] 183 10*3/uL 150-450 [facility] Protein [Mass/volume] in Ser um or PlasmaOrdered By: Rufina Ruiz on 07-20-2022 Protein [Mass/Vol] 6.2 g/dL 6.1-7.9 [facility] RBC Auto (Bld) [#/Vol]Ordere d By: Rufina Ruiz on 07-20-2022 RBC (Bld) [#/Vol] 4.40 10*6/uL 3.60-5.00 [facility] Serum or plasma alanine mckeon otransferase measurement without P-5'-P (enzymatic activiOrdered By: Rufina Ruiz on 07-20-2022 ALT No additional P-5'-P [Catalytic activity/Vol] 10 U/L 10-60 [facility] Serum or plasma albumin/glob ulin mass ratioOrdered By: Rufina Ruiz on 07-20-2022 Albumin/Globulin [Mass ratio] 1.6 {ratio} [facility] Serum or plasma alkaline kamron sphatase measurement (enzymatic activity/volume)Ordered By: Rufina Ruiz on 07-20-2022 ALP [Catalytic activity/Vol] 107 U/L 32-92 [facility] Serum or plasma amylase kunal urement (enzymatic activity/volume)Ordered By: Rufina Ruiz on 07-20-2022 Amylase [Catalytic activity/Vol] 129 U/L 28-100 [facility] Serum or plasma anion gap de terminationOrdered By: Rufina Ruiz on 07-20-2022 Anion gap [Moles/Vol] 9.5 mmol/L 6.0-15.0 [facility] Serum or plasma aspartate am inotransferase measurement (enzymatic activity/volume)Ordered By: Rufina Ruiz on 07-20-2022 AST [Catalytic activity/Vol] 13 U/L 10-42 [facility] Serum or plasma calcium kunal urement (mass/volume)Ordered By: Rufina Ruiz on 07-20-2022 Calcium [Mass/Vol] 8.7 mg/dL 8.2-10.2 [facility] Serum or plasma chloride chacorta surement (moles/volume)Ordered By: Rufina Ruiz on 07-20-2022 Chloride [Moles/Vol] 107 mmol/L 95-114 [facility] Serum or plasma glucose kunal urement (mass/volume)Ordered By: Rufina Ruiz on 07-20-2022 Glucose [Mass/Vol] 82 mg/dL 70-100 [facility] Comment on above: ADA recommended refe rence rangeRandom Glucose Reference Range is dependent on time and content of last meal. Glucose of more than 200 mg/dL in a nonstressed, ambulatory subject supports the diagnosis of Diabetes Mellitus. Serum or plasma high density lipoprotein (HDL) cholesterol measurementOrdered By: Rufina Ruiz on 07-20-2022 Cholesterol in HDL [Mass/Vol] 53 mg/dL 35-85 [facility] Comment on above: HDL CHOL ATP-III CLA SSIFICATION Cardiovascular RiskHDL > or equal to 60 mg/dL LOWHDL < 40 mg/dL HIGH Serum or plasma potassium me asurement (moles/volume)Ordered By: Rufina Ruiz on 07-20-2022 Potassium [Moles/Vol] 3.9 mmol/L 3.5-5.1 [facility] Serum or plasma sodium measu rement (moles/volume)Ordered By: Rufina Ruiz on 07-20-2022 Sodium [Moles/Vol] 138 mmol/L 136-146 [facility] Serum or plasma total biliru bin measurement (mass/volume)Ordered By: Rufina Ruiz on 07-20-2022 Bilirubin [Mass/Vol] 0.3 mg/dL 0.3-1.2 [facility] Serum or plasma total carbon dioxide measurement (moles/volume)Ordered By: Rufina Ruiz on 07-20-2022 CO2 [Moles/Vol] 25.4 mmol/L 22.0-30.0 [facility] Serum or plasma total choles terol/high density lipoprotein (HDL) cholesterol mass ratOrdered By: Rufina Ruiz on 07-20-2022 Cholesterol.total/Choles terol in HDL [Mass ratio] 3.5 {ratio} <5.0 [facility] Serum or plasma urea nitroge n measurement (mass/volume)Ordered By: Rufina Ruiz on 07-20-2022 Urea nitrogen [Mass/Vol] 5 mg/dL 9-23 [facility] THYROID SCREENon 07-20-2022 Free T4 [Mass/Vol] 0.80 ng/dL Normal 0.61-1.12 [facility] Comment on above: Order Comment: Reaso n for Exam Upper abdominal pain;History of pancreatitis Reason for Exam Upper abdominal pain Reason for Exam Vitamin B12 deficiency anemia, unspecified Reason for Exam Anxiety Performed By: #### C UU #### [facility] [address] TSH Qn 4.78 m[IU]/L Normal 0.45-5.33 [facility] Comment on above: Order Comment: Reaso n for Exam Upper abdominal pain;History of pancreatitis Reason for Exam Upper abdominal pain Reason for Exam Vitamin B12 deficiency anemia, unspecified Reason for Exam Anxiety Result Comment: PERF ORMED BY: [place] [address] PATHOLOGIST [employer] MANAGER MARINE WARD M.D. Performed By: #### C UU #### [facility] [address] TSH DL <= 0.005 mIU/L QnOrde red By: Rufina Ruiz on 07-20-2022 TSH Qn 4.78 m[IU]/L 0.45-5.33 [facility] Thyroxine (T4) free [Mass/vo lume] in Serum or PlasmaOrdered By: Rufina Ruiz on 07-20-2022 Free T4 [Mass/Vol] 0.80 ng/dL 0.61-1.12 [facility] Triglyceride [Mass/volume] i n Serum or PlasmaOrdered By: Rufina Ruiz on 07-20-2022 Triglyceride [Mass/Vol] 132 mg/dL 35-149 [facility] Comment on above: TRIG ATP III CLASSIF ICATIONTRIG less than 150 mg/dL NormalTRIG 150-199 mg/dL Borderline highTRIG 200-500 mg/dL High TRIG greater than 500 mg/dL Very highStandard traceable to the Center for Disease Conrtrol and Prevention (CDC) test method. Urine Cultureon 07-20-2022 Bacteria identified Cx Nom (U) Reason for Exam Upper abdominal pain;History of pancreatitis Urine ORGANISM: Escherichia coli (O:ESCCOL) [place] Count >100,000 Aerobic [place] Charge ([id number]) ---- SUSCEPTIBILITY --- ORGANISM: O:ESCCOL ANTIBIOTIC INTERPRETATION [place] Amikacin S <16 Amoxacillin/K Clavulanate S <8 Ampicillin R >16 Ampicillin/Sulbactam I 1616/8 Aztreonam S <4 Cefazolin S <2 Cefepime S <2 Ceftazidime S <1 Ceftazidime/Avibactam S <4 Ceftolozane/Tazobacta m S <2 Ceftriaxone S <1 Cefuroxime S 8 Ciprofloxacin S <0.25 Ertapenem S <0.5 Gentamicin S <2 Levofloxacin S <0.5 Meropenem S <1 Meropenem/Vaborbactam S <2 Nitrofurantoin R >64 Piperacillin/Tazobact am S <8 Tetracycline S <4 Tigecycline S <2 Tobramycin S <2 Trimethoprim/Sulfamet hoxazole S <0.5 S = SUSCEPTIBLE I = [...] RESISTANT TO ALL B-LACTAM DRUGS. PERFORMED BY: [place] [address] PATHOLOGIST INTELLECTUAL PROPERTY MANAGER MARINE WARD M.D. Normal [facility] Comment on above: Performed By: #### C UU #### [address] Urine culture routineOrdered By: Rufina Ruiz on 07-20-2022 Bacteria identified Cx Nom (U) Escherichia coli [facility] Bacteria identified Cx Nom (U) Escherichia coli [facility] Vitamin B12on 07-20-2022 Cobalamin (Vitamin B12) [Mass/Vol] 137 pg/mL Low 180-914 [facility] Comment on above: Order Comment: Reaso n for Exam Upper abdominal pain;History of pancreatitis Reason for Exam Upper abdominal pain Reason for Exam Vitamin B12 deficiency anemia, unspecified Reason for Exam Anxiety Performed By: #### C UU #### [facility] [address] [place] [id number] [facility] WBC Auto (Bld) [#/Vol]Ordere d By: Rufina Ruiz on 07-20-2022 WBC (Bld) [#/Vol] 8.5 10*3/uL 3.8-11.6 [facility] CBC AUTO DIFFon 06-24-2022 BASO # 0.0 103/ul Normal 0.0-0.1 [facility] Comment on above: Performed By: #### C BC #### [facility] [address] [place] [address] Dr. Ruthie Pan Basophils/100 WBC (Bld) 0.5 % Normal 0.2-2.0 [facility] Comment on above: Performed By: #### C BC #### [facility] [address] [place] [address] [address] Ruthie Pan EO # 0.1 103/ul Normal 0.0-0.7 [facility] Comment on above: Performed By: #### C BC #### [facility] [address] [place] [address] Dr. Ruthie Pan Eosinophils/100 WBC (Bld) 1.6 % Normal 0.9-7.0 [facility] Comment on above: Performed By: #### C BC #### [facility] [address] [place] [address] [address] Ruthie Pan Erythrocyte distribution width (RBC) [Ratio] 13.2 % Normal 11.0-15.0 [facility] Comment on above: Performed By: #### C BC #### [facility] [address] [place] [address] Dr. Ruthie Pan Hematocrit (Bld) [Volume fraction] 41.5 % Normal 36.0-48.0 [facility] Comment on above: Performed By: #### C BC #### [facility] [address] [place] [address] Dr. Ruthie Pan Hemoglobin (Bld) [Mass/Vol] 13.9 g/dL Normal 12.0-16.0 [facility] Comment on above: Performed By: #### C BC #### [facility] [address] [place] [address] Dr. Ruthie Pan IG # 0.02 10e3/ul Normal 0.00-0.03 [facility] Comment on above: Performed By: #### C BC #### [facility] [address] [place] [address] Dr. Ruthie Pan IG % 0.2 % Normal 0.0-0.5 [facility] Comment on above: Performed By: #### C BC #### [facility] [address] [place] [address] Dr. Ruthie Pan LYMPH # 2.5 103/ul Normal 1.2-3.8 [facility] Comment on above: Performed By: #### C BC #### [facility] [address] [place] [address] Dr. Ruthie Pan Lymphocytes/100 WBC (Bld) 28.8 % Normal 20.5-60.0 [facility] Comment on above: Performed By: #### C BC #### [facility] [address] [place] [address] Dr. Ruthie Pan MANUAL DIFF REQ NO Normal [facility] Comment on above: Performed By: #### C BC #### [facility] [address] [place] [address] Dr. Ruthie Pan MCH (RBC) [Entitic mass] 30.3 pg Normal 26.7-34.0 [facility] Comment on above: Performed By: #### C BC #### [facility] [address] [place] [address] Dr. Ruthie Pan MCHC (RBC) [Mass/Vol] 33.5 g/dL Normal 29.9-35.2 [facility] Comment on above: Performed By: #### C BC #### [facility] [address] [place] [address] Dr. Ruthie Pan MCV (RBC) [Entitic vol] 90.6 fL Normal 81.0-99.0 [facility] Comment on above: Performed By: #### C BC #### [facility] [address] [place] [address] Dr. Ruthie Pan MONO # 0.6 103/ul Normal 0.3-0.8 [facility] Comment on above: Performed By: #### C BC #### [facility] [address] [place] [address] Dr. Ruthie Pan Monocytes/100 WBC (Bld) 6.4 % Normal 1.7-12.0 [facility] Comment on above: Performed By: #### C BC #### [facility] [address] [place] [address] Dr. Ruthie Pan NEUT # 5.5 103/ul Normal 1.4-6.5 [facility] Comment on above: Performed By: #### C BC #### [facility] [address] [place] [address] Dr. Ruthie Pan Neutrophils/100 WBC (Bld) 62.5 % Normal 43.0-75.0 [facility] Comment on above: Performed By: #### C BC #### [facility] [address] [place] [address] Dr. Ruthie Pan Platelet mean volume (Bld) [Entitic vol] 11.1 fL Normal 9.5-13.5 [facility] Comment on above: Performed By: #### C BC #### [facility] [address] [place] [address] Dr. Ruthie Pan PLT 150 103/ul Normal 150-450 [facility] Comment on above: Performed By: #### C BC #### [facility] [address] [place] [address] Dr. Ruthie Pan RBC 4.58 106/ul Normal 4.20-5.40 [facility] Comment on above: Performed By: #### C BC #### [facility] [address] [place] [address] Dr. Ruthie Pan WBC 8.8 103/ul Normal 4.0-11.0 [facility] Comment on above: Performed By: #### C BC #### [facility] [address] [place], [place] [address] Dr. Ruthie Pan Covid-19 PCR (CVDTB)on 06-11 SARS-CoV-2 (COVID-19) RNA MICHAEL+probe Ql (Unsp spec) Not detected Normal NOT DETECTED [facility] Comment on above: Result Comment: This test is not yet approved or cleared by the [place] FDA. When there are no FDA-approved or cleared tests available, and other criteria are met, FDA can make tests available under an emergency access mechanism called an Emergency Use Authorization (EUA). The EUA for this test is supported by the [employer] of Health and Human Service's (HHS's) declaration [...] with SARS-CoV-2. Performed By: #### C VDTBH ####[facility] [address] [place] [id number] Pan INFLUENZA A AND B AGon 06-24 INFLUANEGH SEE BELOW Normal [facility] Comment on above: Result Comment: Nega tive for Flu A protein angiten. Infection due to Flu A cannot be ruled out. Flu A angiten in the sample may be below the detection limit of the test. Performed By: #### I NFLUAB ####[facility] [address] [place], [place] [address]LyGideon Pan INFLUBNEGH SEE BELOW Normal [facility] Comment on above: Result Comment: Nega tive for Flu B protein antigen. Infection due to Flu B cannot be ruled out. Flu B antigen in the sample may be below the detection limit of the test. Performed By: #### I NFLUAB ####[facility] [address] [place] [address]Dr. Ruthie Pan INFLUENZA A AG Negative Normal NEGATIVE SEE COMMENT [facility] Comment on above: Performed By: #### I NFLUAB ####[facility] [address] [place] [address]Dr. Ruthie Pan INFLUENZA B AG Negative Normal NEGATIVE SEE COMMENT [facility] Comment on above: Performed By: #### I NFLUAB ####[facility] [address] [place] [address]Dr. Ruthie Pan INTERNAL CONTROLS Within Normal Limits Normal Wi thin Normal Limits [facility] Comment on above: Performed By: #### I NFLUAB ####[facility] [address] [place], [place] [address]Dr. Ruthie Pan PROF 14(COMP METB)on 022 Albumin [Mass/Vol] 3.7 g/dL Normal 3.4-5.0 [facility] Comment on above: Performed By: #### C MP ####[facility] [address] [place], [place] [address]Dr. Ruthie Pan Albumin/Globulin [Mass ratio] 1.1 {ratio} Normal [facility] Comment on above: Performed By: #### C MP ####[facility] [address] [place], [place] [address]Dr. Ruthie Pan ALP [Catalytic activity/Vol] 125 U/L Critically high 46-116 [facility] Comment on above: Performed By: #### C MP ####[facility] [address] [place] [address]Dr. Ruthie Pan ALT [Catalytic activity/Vol] 17 U/L Normal 14-59 [facility] Comment on above: Performed By: #### C MP ####[facility] [address] [place], [place] [address]Dr. Ruthie Pan Anion gap [Moles/Vol] 9.8 mmol/L Normal [facility] Comment on above: Performed By: #### C MP ####[facility] [address] [place] [id number]. Ruthie Pan AST [Catalytic activity/Vol] 16 U/L Normal 15-37 [facility] Comment on above: Performed By: #### C MP ####[facility] [address] [place] [id number]. Ruthie Pan Bilirubin [Mass/Vol] 0.3 mg/dL Normal 0.2-1.0 [facility] Comment on above: Performed By: #### C MP ####[facility] [address] [place] [address]Dr. Ruthie Pan Calcium [Mass/Vol] 8.7 mg/dL Normal 8.5-10.1 [facility] Comment on above: Performed By: #### C MP ####[facility] [address] [place], [place] [address]Dr. Ruthie Pan Chloride [Moles/Vol] 103 mmol/L Normal 98-107 [facility] Comment on above: Performed By: #### C MP ####[facility] [address] [place], [place] [address]Dr. Ruthie Pan CO2 [Moles/Vol] 28.3 mmol/L Normal 21.0-32.0 The [facility] Comment on above: Performed By: #### C MP ####[facility] [address] [place], [place] [address]Dr. Ruthie Pan Creatinine [Mass/Vol] 0.62 mg/dL Normal 0.55-1.02 [facility] Comment on above: Performed By: #### C MP ####[facility] [address] [place] [address]Dr. Ruthie Maxim EGFR-AF BERMUDIAN >60 Normal >=60 The [facility] Comment on above: Performed By: #### C MP ####[facility] [address] [place], [place] [address]Dr. Ruthie Maxim EGFR-NON AF BERMUDIAN >60 Normal >=60 [facility] Comment on above: Performed By: #### C MP ####[facility] [address] [place], [place] [address]Dr. Ruthie Pan Globulin (S) [Mass/Vol] 3.4 g/dL Normal T [facility] Comment on above: Performed By: #### C MP ####[facility] [address] [place] [address]Dr. Ruthie Pan Glucose [Mass/Vol] 103 mg/dL Normal 74-106 [facility] Comment on above: Performed By: #### C MP ####[facility] [address] [place], [place] [address]Dr. Ruthie Pan Potassium [Moles/Vol] 3.1 mmol/L Critically low 3.5-5.1 [facility] Comment on above: Performed By: #### C MP ####[facility] [address] [place], [place] [address]Dr. Ruthie Pan Protein [Mass/Vol] 7.1 g/dL Normal 6.4-8.2 [facility] Comment on above: Performed By: #### C MP ####[facility] [address] [place], [place] [address]Dr. Ruthie Pan Sodium [Moles/Vol] 140 mmol/L Normal 136-145 [facility] Comment on above: Performed By: #### C MP ####[facility] [address] [place], [place] [address]Dr. Ruthie Pan Urea nitrogen [Mass/Vol] 6.0 mg/dL Critically low 7.0-18. 0 [facility] Comment on above: Performed By: #### C MP ####[facility] [address] [place], [place] [address]Dr. Ruthie Pan Urea nitrogen/Creatinine [Mass ratio] 9.7 mg/mg Normal [facility] Comment on above: Performed By: #### C MP ####[facility] [address] [place], [place] [address]Dr. Ruthie Pan Urine culture routineOrdered By: Rufina Ruiz on 06-09-2022 Bacteria identified Cx Nom (U) Escherichia coli [facility] Urine culture routineOrdered By: Rufina Ruiz on 04-16-2022 Bacteria identified Cx Nom (U) Escherichia coli [facility] AMYLASEon 11-24-2021 Amylase [Catalytic activity/Vol] 85 U/L Normal 25-115 [facility] Comment on above: Performed By: #### C ROSALIA INFANTE LIPA #### [facility] [address] [place], [place] [address] Dr. Ruthie Pan CBC AUTO DIFFon 11-24-2021 BASO # 0.0 103/ul Normal 0.0-0.1 [facility] Comment on above: Performed By: #### C BC ####[facility] [address] [place] [address]DrGideon Pan Basophils/100 WBC (Bld) 0.4 % Normal 0.2-2.0 [facility] Comment on above: Performed By: #### C BC ####[facility] [address]fsmt[address] [place] [address]DrGideon Pan EO # 0.2 103/ul Normal 0.0-0.7 [facility] Comment on above: Performed By: #### C BC ####[facility] [address] [place] [address]DrGideon Pan Eosinophils/100 WBC (Bld) 1.6 % Normal 0.9-7.0 [facility] Comment on above: Performed By: #### C BC ####[facility] [address] [place] [address]DrGideon Pan Erythrocyte distribution width (RBC) [Ratio] 13.8 % Normal 11.0-15.0 [facility] Comment on above: Performed By: #### C BC ####[facility] [address] [place] [address]DrGideon Pan Hematocrit (Bld) [Volume fraction] 38.5 % Normal 36.0-48.0 [facility] Comment on above: Performed By: #### C BC ####[facility] [address]sw[address] [place] [address]DrGideon Pan Hemoglobin (Bld) [Mass/Vol] 12.3 g/dL Normal 12.0-16.0 [facility] Comment on above: Performed By: #### C BC ####[facility] [address]trcgxzb[address] [place] [address]Dr. Ruthie Pan IG # 0.04 10e3/ul Critically high 0.00-0.03 [facility] Comment on above: Performed By: #### C BC ####[facility] [address] [place] [address]Dr. Ruthie Pan IG % 0.4 % Normal 0.0-0.5 [facility] Comment on above: Performed By: #### C BC ####[facility] [address]ynv[address] [place] [address]Dr. Ruthie Pan LYMPH # 3.4 103/ul Normal 1.2-3.8 [facility] Comment on above: Performed By: #### C BC ####[facility] [address] [place] [address]Dr. Ruthie Pan Lymphocytes/100 WBC (Bld) 31.2 % Normal 20.5-60.0 [facility] Comment on above: Performed By: #### C BC ####[facility] [address]oo[address] [place] [address]Dr. Ruthie Pan MANUAL DIFF REQ NO Normal [facility] Comment on above: Performed By: #### C BC ####[facility] [address]izzum[address] [place] [address]Dr. Ruthie Pan MCH (RBC) [Entitic mass] 31.1 pg Normal 26.7-34.0 [facility] Comment on above: Performed By: #### C BC ####[facility] [address] [place], [place] [address]Dr. Ruthie Pan MCHC (RBC) [Mass/Vol] 31.9 g/dL Normal 29.9-35.2 [facility] Comment on above: Performed By: #### C BC ####[facility] [address]eq[address] [place] [address]Dr. Ruthie Pan MCV (RBC) [Entitic vol] 97.5 fL Normal 81.0-99.0 [facility] Comment on above: Performed By: #### C BC ####[facility] [address]aye[address] [place] [address]Dr. Ruthie Pan MONO # 0.9 103/ul Critically high 0.3-0.8 The [facility] Comment on above: Performed By: #### C BC ####[facility] [address]fk[address] [place] [address]Dr. Ruthie Pan Monocytes/100 WBC (Bld) 8.0 % Normal 1.7-12.0 [facility] Comment on above: Performed By: #### C BC ####[facility] [address]zcet[address] [place] [address]Dr. Ruthie Pan NEUT # 6.4 103/ul Normal 1.4-6.5 [facility] Comment on above: Performed By: #### C BC ####[facility] [address] [place] [address]Dr. Ruthie Pan Neutrophils/100 WBC (Bld) 58.4 % Normal 43.0-75.0 [facility] Comment on above: Performed By: #### C BC ####[facility] [address] [place] [address]Dr. Ruthie Pan Platelet mean volume (Bld) [Entitic vol] 10.7 fL Normal 9.5-13.5 [facility] Comment on above: Performed By: #### C BC ####[facility] [address] [place] [address]Dr. Ruthie Pan PLT 207 103/ul Normal 150-450 [facility] Comment on above: Performed By: #### C BC ####[facility] [address]oxejqtx[address] [place] [address]Dr. Ruthie Pan RBC 3.95 106/ul Critically low 4.20-5.40 The [facility] Comment on above: Performed By: #### C BC ####[facility] [address]ux[address] [place] [address]Dr. Ruthie Pan WBC 11.0 103/ul Normal 4.0-11.0 [facility] Comment on above: Performed By: #### C BC ####[facility] [address] [place], [place] [address]Dr. Ruth[address] Pan CT ABD/PELV W CONon 11-25-19 CT ABD/PELV W CON EXAMINATION: CT ABD/PELV W CON HISTORY: GENERALIZED ABDOMINAL PAIN. COMPARISON: [...] by: LUDIN ANGELES Date: 2021-11-24 03:59 Normal [facility] LACTATE/LACTIC ACIDon 2021 Lactate [Moles/Vol] 1.0 mmol/L Normal 0.4-1.9 [facility] Comment on above: Performed By: #### L ACT #### [facility] [address] [place] [address] [address] Ruthie Pan LIPASEon 11-24-2021 Lipase [Catalytic activity/Vol] 123.0 U/L Normal 73.0-393.0 [facility] Comment on above: Performed By: #### C NARESH ROSALIA, LIPA #### [facility] [address] [place] [address] [address] Ruthie Pan PROF 14(COMP METB)on 022 Albumin [Mass/Vol] 3.3 g/dL Critically low 3.4-5.0 [facility] Comment on above: Performed By: #### C MP ROSALIA, LIPA #### [facility] [address] [place] [address] [address] Ruthie Pan Albumin/Globulin [Mass ratio] 1.1 {ratio} Normal [facility] Comment on above: Performed By: #### C MP, ROSALIA, LIPA #### [facility] [address] [place] [address] [address] Ruthie Pan ALP [Catalytic activity/Vol] 139 U/L Critically high 46-116 [facility] Comment on above: Performed By: #### C MP, ROSALIA, LIPA #### [facility] [address] [place] [address] Dr. Ruthie Pan ALT [Catalytic activity/Vol] 17 U/L Normal 14-59 [facility] Comment on above: Performed By: #### C MP, ROSALIA, LIPA #### [facility] [address] [place] [address] Dr. Ruthie Pan Anion gap [Moles/Vol] 10.5 mmol/L Normal [facility] Comment on above: Performed By: #### C MP, ROSALIA, LIPA #### [facility] [address] [place] [address] Dr. Ruthie Pan AST [Catalytic activity/Vol] 14 U/L Critically low 15-37 [facility] Comment on above: Performed By: #### C MP, ROSALIA, LIPA #### [facility] [address] [place] [address] Dr. Ruthie Pan Bilirubin [Mass/Vol] 0.2 mg/dL Normal 0.2-1.0 [facility] Comment on above: Performed By: #### C MP, ROSALIA, LIPA #### [facility] [address] [place] [address] Dr. Ruthie Pan Calcium [Mass/Vol] 8.3 mg/dL Critically low 8.5-10.1 [facility] Comment on above: Performed By: #### C MP, ROSALIA, LIPA #### [facility] [address] [place] [address] Dr. Ruthie Pan Chloride [Moles/Vol] 103 mmol/L Normal 98-107 [facility] Comment on above: Performed By: #### C MP, ROSALIA, LIPA #### [facility] [address] [place] [address] Dr. Ruthie Pan CO2 [Moles/Vol] 27.9 mmol/L Normal 21.0-32.0 [facility] Comment on above: Performed By: #### C ROSALIA INFANTE LIPA #### [facility] [address] [place] [address] [address] Ruthie Pan Creatinine [Mass/Vol] 0.71 mg/dL Normal 0.55-1.02 [facility] Comment on above: Performed By: #### C ROSALIA NIFANTE LIPA #### [facility] [address] [place] [address] [address] Ruthie Pan EGFR-AF BERMUDIAN >60 Normal >=60 [facility] Comment on above: Performed By: #### C ROSALIA INFANTE LIPA #### [facility] [address] [place] [address] [address] Ruthie Pan EGFR-NON AF BERMUDIAN >60 Normal >=60 [facility] Comment on above: Performed By: #### C ROSALIA INFANTE LIPA #### [facility] [address] [place] [address] [address] Ruthie Pan Globulin (S) [Mass/Vol] 3.1 g/dL Normal [facility] Comment on above: Performed By: #### C ROSALIA INFANTE LIPA #### [facility] [address] [place] [address] [address] Ruthie Pan Glucose [Mass/Vol] 113 mg/dL Critically high 74-106 [facility] Comment on above: Performed By: #### C ROSALIA INFANTE LIPA #### [facility] [address] [place] [address] [address] Ruthie Pan Potassium [Moles/Vol] 3.4 mmol/L Critically low 3.5-5.1 [facility] Comment on above: Performed By: #### C ROSALIA INFANTE LIPA #### [facility] [address] [place] [address] [address] Ruthie Pan Protein [Mass/Vol] 6.4 g/dL Normal 6.4-8.2 [facility] Comment on above: Performed By: #### C MP, ROSALIA, LIPA #### [facility] [address] [place], [place] [address] Dr. Ruthie Pan Sodium [Moles/Vol] 138 mmol/L Normal 136-145 [facility] Comment on above: Performed By: #### C MP, ROSALIA, LIPA #### [facility] [address] [place] [address] [address] Ruthie Pan Urea nitrogen [Mass/Vol] 10.0 mg/dL Normal 7.0-18.0 [facility] Comment on above: Performed By: #### C MP, ROSALIA, LIPA #### [facility] [address] [place] [address] [address] Ruthie Pan Urea nitrogen/Creatinine [Mass ratio] 14.1 mg/mg Normal [facility] Comment on above: Performed By: #### C MP, ROSALIA, LIPA #### [facility] [address] [place] [address] [address] Ruthie Pan US SINGLE QUAD RT [...] MILE BENITEZ Date: 2021-11-24 07:56 Normal [facility] XR SHOULDER RT 2V or >on XR [...] by: Austin VENTURA Date: 2021-11-21 02:37 Normal [facility] Vital Signs Date Time Vital Sign Value Performing Clinician Facility 07-23-2022 00:20-0500 Diastolic blood pressure 65 mm[Hg] Services [facility] Work Phone: [facility] 07-23-2022 00:20-0500 Heart rate 89 /min Services [facility] Work Phone: [facility] 07-23-2022 00:20-0500 Respiratory rate 18 /min Services [facility] Work Phone: [facility] 07-23-2022 00:20-0500 SaO2% (BldA) [Mass fraction] 99 % Services [facility] Work Phone: [facility] 07-23-2022 00:20-0500 Systolic blood pressure 103 mm[Hg] Services [facility] Work Phone: [facility] 07-22-2022 19:43-0500 Body height 154.94 cm Services [facility] Work Phone: [facility] 07-22-2022 19:43-0500 Body temperature 98.4 [degF] Services [facility] Work Phone: [facility] 07-22-2022 19:43-0500 Body weight 64 kg Services [facility] Work Phone: [facility] 11-23-2021 23:23-0400 Body temperature 98.06 [degF] EZBOB [facility] 11-23-2021 23:23-0400 Diastolic blood pressure 63 mm[Hg] EZBOB [facility] 11-23-2021 23:23-0400 Heart rate 81 /min Venancio Orozco [facility] 11-23-2021 23:23-0400 Respiratory rate 16 /min Venancio Orozco [facility] 11-23-2021 23:23-0400 SaO2% (BldA) [Mass fraction] 97 % Venancio Orozco [facility] 11-23-2021 23:23-0400 Systolic blood pressure 102 mm[Hg] Venancio Orozco [facility] Encounters Encounter Date Encounter Type Care Provider Facility Start: 06-29-2023 End: 06-29-2023 ambulatory Brian Mast Facility:[facility] Start: 06-29-2023 End: 06-29-2023 ambulatory DPM Damian Jovel Work Phone: [facility] Work Phone: Start: 06-29-2023 End: 06-29-2023 Departed Referred DPM Damian Jovel Work Phone: [facility] Start: 05-26-2023 End: 05-26-2023 ambulatory DAMIAN JOVEL [facility] Work Phone: Start: 05-26-2023 End: 05-26-2023 Departed Referred [facility] Rufina Ruiz Work Phone: [facility] Work Phone: Start: 03-19-2023 End: 03-19-2023 ambulatory Rufina Ruiz Facility:[facility] Start: 03-19-2023 End: 03-19-2023 ambulatory [facility] Rufina Ruiz Work Phone: [facility] Work Phone: Start: 03-19-2023 End: 03-19-2023 Departed Referred [facility] [employer] Rufina Ruiz Work Phone: [facility] Start: 12-08-2022 End: 12-09-2022 ambulatory Adam ERICKSON Facility:[facility] Start: 12-08-2022 End: 12-08-2022 Patient encounter procedure Adam ERICKSON [facility] Start: 11-16-2022 End: 11-16-2022 ambulatory Rufina Ruiz Facility:[facility] Start: 11-16-2022 End: 11-16-2022 ambulatory [facility] [employer] Rufina Ruiz Work Phone: [facility] Work Phone: Start: 11-16-2022 End: 11-16-2022 Departed Referred [facility] [employer] Rufina Ruiz Work Phone: [facility] Work Phone: Start: 11-10-2022 ambulatory dAam ERICKSON Facili ty:[facility] Start: 10-27-2022 End: 10-28-2022 ambulatory RUFINA RUIZ Facility:[facility] Start: 10-04-2022 End: 10-04-2022 [facility] Facility: Start: 09-21-2022 End: 09-21-2022 ambulatory Rufina Ruiz Facility:[facility] Start: 09-21-2022 End: 09-21-2022 ambulatory NON STAFF [facility] Work Phone: Start: 09-21-2022 End: 09-21-2022 Departed Referred [employer] [employer] Rufina Ruiz Work Phone: [facility] Start: 09-01-2022 ambulatory Adam ERICKSON Facility :[facility] Start: 08-31-2022 End: 08-31-2022 ambulatory Rufina Ruiz Facility:[facility] Start: 08-31-2022 End: 08-31-2022 Departed Referred [facility] Rufina Ruiz Work Phone: [facility] Start: 07-22-2022 End: 07-23-2022 Emergency department patient visit Salvador Maier Jr Facility:[facility] Start: 07-22-2022 End: 07-23-2022 Emergency department patient visit Services [facility] Work Phone: [facility] Work Phone: Start: 07-21-2022 End: 07-21-2022 ambulatory [facility] Facility: Start: 07-20-2022 End: 07-20-2022 ambulatory NON STAFF Facility:[facility] Start: 07-20-2022 End: 07-20-2022 ambulatory [facility] [employer] Rufina Ruiz Work Phone: [facility] Work Phone: Start: 07-20-2022 End: 07-20-2022 Departed Referred [facility] [employer] Rufina Ruiz Work Phone: [facility] Start: 06-24-2022 End: 06-24-2022 ambulatory [facility] Facility: Start: 06-09-2022 End: 06-09-2022 ambulatory [facility] Work Phone: [facility] Work Phone: Start: 06-09-2022 End: 06-09-2022 Departed Referred [facility] Work Phone: [facility] Start: 04-14-2022 End: 04-14-2022 ambulatory [facility] Work Phone: [facility] Work Phone: Start: 04-14-2022 End: 04-14-2022 Departed Referred [facility] Work Phone: [facility] Start: 04-08-2022 End: 04-09-2022 ambulatory [facility] Facility:[facility] Start: 11-24-2021 End: 11-24-2021 ambulatory [facility] Facility:[facility] Start: 11-23-2021 End: 11-24-2021 Emergency department patient visit Venancio Orozco [facility] Start: 11-21-2021 End: 11-21-2021 ambulatory [facility] Facility:[facility] Start: 11-06-2021 End: 11-06-2021 [facility] Facility: Procedures Date Procedure Procedure Detail Performing Clinician Start: 05-26-2023 Aerobic microbial culture DPM Damian Jovel Work Phone: Start: 08-31-2022 Urine culture [facility] Larissa Ruiz Work Phone: Start: 07-22-2022 Computed tomography of abdomen and pelvis with contrast [facility] Rufina Ramiro Work Phone: Start: 07-22-2022 US scan of gallbladder [facility] Rufina Ramiro Work Phone: Start: 07-20-2022 Urine culture Services [facility] Work Phone: Start: 06-09-2022 Urine culture [facility] Larissa loaiza Ramiro Work Phone: Start: 05-30-2021 Arthroscopy of shoulder Venancio Orozco Urine culture Services [facility] Work Phone: Vaginal hysterectomy Venancio knox Plan of Treatment Date Care Activity Detail Author Start: 06-29-2023 Bacteria identified in Urine by Culture [facility] Start: 05-26-2023 Superficial Wound Culture Superficial Wound Culture [facility] Start: 07-22-2022 Computed tomography of abdomen and pelvis with contrast CT abdomen pelvis w con [facility] Start: 07-22-2022 CT Abdomen and Pelvi s W contrast IV [facility] Start: 07-22-2022 US Gallbladder [facility] Start: 07-22-2022 US scan of gallbladder US gall bladd er [facility] Start: 07-20-2022 Bacteria identified in Urine by Culture Urine Culture [facility] Bacteria identified in Urine by Culture [facility] Patient Education Abdominal Pain , Adult ED [facility] Work Phone: Patient referral [facility] Work Phone: Payers Date Payer Category Payer Self-pay [id number] 1975 Unknown [id number] 2.16.840.1.080855.3.579.2. 593 1975 Unknown [id number] 2.16.840.1.676742.3.579.2. 593 1977 Unknown [id number] 2.16.840.1.373782.3.579.2. 593 1977 Unknown [id number] 2.16.840.1.136164.3.579.2. 593 1977 Unknown [id number] 2.16.840.1.983185.3.579.2. 593 1977 Unknown [id number] 2.16.840.1.167626.3.579.2. 593 1977 Unknown [id number] 2.16.840.1.655494.3.579.2. 593 1977 Unknown [id number] 2.16.840.1.448859.3.579.2. 727 1977 Unknown [id number] 2.16.840.1.990507.3.579.2. 727 1977 Unknown [id number] 2.16.840.1.952452.3.579.2. 727 1977 Unknown [id number] 2.16.840.1.362220.3.579.2. 727 1977 Unknown [id number] 2.16.840.1.913773.3.579.2. 1259 1959 Medicaid [id number] 1957 Medicaid [id number] Private Health Insurance [facility] [id number] Unknown [id number] 2.16.840.1.792786.3.579.2. 531 Unknown [id number] 2.16.840.1.387083.3.579.2. 531 Unknown [id number] 2.16.840.1.923748.3.579.2. 531 Unknown [id number] 2.16.840.1.415500.3.579.2. 531 Unknown [id number] 2.16.840.1.315072.3.579.2. 531 Unknown [id number] 2.16.840.1.745005.3.579.2. 531 Unknown [id number] 2.16.840.1.108451.3.579.2. 531 Unknown [id number] 2.16.840.1.594602.3.579.2. 531 Social History Date Type Detail Facility Start: 11-11-2020 End: 10-27-2022 Tobacco smoking status Heavy tobacco smoker (finding) [facility] Sex Assigned At Female [facility] Start: 12-16-2020 End: 07-22-2022 Tobacco smoking status NHIS Smoker (finding) [facility] Start: 1975 Sex Assigned At Female [facility] Tobacco smoking status Never [facility] Medical Equipment Procedure Code Equipment Code Equipment Origin al Text Equipment Identifier Dates FDA Start: 05-30-2021 SHOULDER ARTHROS COPY W/ POSSIBLE REPAIR Michael Torres DO 05/30/21 Non Biological Shoulder R FDA Start: 05-30-2021 Clinical Note 10-27-2022 Note Date & Type Note Facility 10-27-2022 Note Chief Complaint Referral *Recurrent UTI HPI Staff Evaluation requested by Rufina Ruiz CNP due to recurrent UTI's. Pt is a [...] yes avoids baths/hot tubs yes avoids scented [employer] products yes urinates after sexual activity yes. [...] has been obtained. Will order Local anesthesia. Irasemaro sent to [facility]. 2. History of kidney stones (Z87.442: Personal history of urinary calculi) Last stone was 8 months ago. Passes stones on her own without surgical intervention. CT AP w/ contrast 07/22/22 neg for stones. there are symmetric bilateral renal nephrograms, without hydro. Follow-up With When Contact Information DRE ANSARI, Adam Arrington, [address] [place] [address]- Additional Instructions: cysto/UD Patient Education Urinary Tract Infection, Adult Documentation recorded by the dot [place] accurately reflects the services(s) I performed and decisions made by me. Authenticated by Rufina Treadwell PA-C on 10/27/2022 15:13:59. Maite Keen, personally scribed for Rufina Treadwell PA-C on [...] Daily Vitamin B- (more content not included)... [facility] Comment on above: Result Comment: Elec tronically [...] to strengthen the arm. General instructions Take axbm-rkm-pgvazze and prescription medicines only as told by [...] 04/07/2006 Document Revised: 01/10/2019 Document Reviewed: 01/10/2019 [employer] Patient Education 2020 [employer] Follow Up Care 11/23/2021 23:20:28 With:Cande Hinds Address: [address] [place] [address]- Business (1) When:12/01/2021 only if needed [facility] Evaluation + Plan note 11-23-2021 Note Date & Type Note Facility 11-23-2021 Evaluation + Plan note Extrac zakia from: Title:ED Note Author:Venancio Orozco DO Date :11/23/21 Acute pain of right shoulder (M25.511: Pain in right shoulder) Orders: acetaminophen-oxycodone, 1 tab(s), Tab, Oral, Once, Stop date 11/23/21 23:37:00 EDT, STAT, Start date 11/23/21 23:37:00 EDT Sling Apply XR Shoulder Complete Right [facility] Evaluation note Note Date & Type Note Facility Evaluation note No assessment information availa [facility] Work Phone: Hospital course Narrative Note Date & Type Note Facility Hospital course Narrative No data available for this section [facility] Discharge instructions Note Date & Type [...] the other day did show an infection. [facility] Work Phone: Hospital Discharge instructions Note Date & Type Note Facility Hospital Discharge instructions No data available for this section [facility] Progress note Note Date & Type Note Facility Progress note No data available for this section [facility] Chief Complaint and Reason for Visit Chief [...] Chief Complaint E53.8 G25.81 F31.9 Z 72.0 Chief Complaint L60.0 Advance Directives No Advanced Directives Records Found Advance Directive Response Recorded Date/ Time Advance Directives No May 2:03am Advance Directive Response Recorded Date/ Time Advance Directives No May 1:03am Summary Purpose Family History No Family History Records FoundNo Family History Records FoundNo Family History Records FoundNo Family History Records Found Additional Source Comments Care Teams (unrecognized sec tion and content) Team Status: Inactive Member Role Status Dates Services [facility] Primary Care Prov ider, Family Provider Active ZANE Driscoll Attending Provide r Active Team Status: Active Member Role Status Dates Services Family Health Family Provider Active Services Family [facility] Primary Care Provider Active Team Status: Inactive Member Role Status Dates Services Family [facility] Family Provider Active ZANE Driscoll Attending Provide r Active Team Status: Active Member Role Status Dates Services Family [facility] Family Provider Active Team Status: Inactive Member Role Status Dates Services [facility] Primary Care Provider, Family P rovider Active Salvador Maier Jr, MD Emergency Provider Active Team Status: Inactive Member Role Status Dates Services Family [facility] Family Provider Active ZANE Driscoll Attending Provide r Active NON STAFF Primary Care Provider Active Team Status: Inactive Member Role Status Dates Services Family [facility] Family Provider Active Damian Jovel DPM Attending Provider Active Team Status: Inactive Member Role Status Dates Services Family [facility] Family Provider Active Brian Wood DO Attending Provider Active Goals (unrecognized section and content) Goals may be documented in a n alternate section INFORMATION SOURCE (unrecogn ized section and content) DATE CREATED AUTHOR 10/05/2022 [facility] DATE CREATED AUTHOR AUTHOR'S ORGANIZ ATION 12/18/2022 [facility] DATE CREATED AUTHOR AUTHOR'S ORGANIZ ATION 05/28/2023 [facility] DATE CREATED AUTHOR AUTHOR'S ORGANIZ ATION 07/07/2023 [facility] FOR RECORDS PERTAINING TO PATIENTS WHO ARE [...] BE BASED ON THE PRIMARY CLINICAL RECORDS. [facility] [employer] provides no warranty or guarantee of the accuracy or completeness of information in this document.
--- NOTE | 2023-07-21 00:16 | PC.NURSE ---
Pt has pain, redness, and minimal edema near nail bed of right pointer finger. Denies fever/chills. Denies injury to finger.
--- NOTE | 2023-07-21 00:21 | ED_ITS ---
HPI - Extremity Problem General Chief complaint: Extremity Problem, Nontraumatic Stated complaint: RIGHT POINTER FINGER PAIN Time Seen by Provider: 07/21/23 00:19 Source: patient Mode of arrival: walk-in Limitations: no limitations History of Present Illness HPI Narrative: presents with pain right index finger. started tonight. no injury. no fever. tip of finger throbbing Related Data Home Medications Medication Instructions Recorded Confirmed albuterol sulfate 2.5 mg/3 mL 2.5 mg inhalation Q6H PRN 06/05/23 06/05/23 (0.083 %) solution for nebulization shortness of breath or wheezing fluticasone 250 mcg-salmeterol 50 1 inh inhalation BID 06/05/23 06/05/23 mcg/dose blistr powdr for inhalation (Advair Diskus) tizanidine 2 mg tablet 2 mg PO Q12H 06/05/23 06/05/23 albuterol sulfate 90 mcg/actuation inhalation 07/21/23 aerosol inhaler fluoxetine 40 mg capsule mg 07/21/23 folic acid 1 mg tablet 07/21/23 olanzapine 10 mg tablet mg 07/21/23 ropinirole 0.5 mg tablet mg 07/21/23 Previous Rx's Medication Instructions Recorded acetaminophen 300 mg-codeine 30 mg 1 tab PO Q6H PRN pain #20 tabs 05/24/23 tablet cephalexin 500 mg capsule 500 mg PO QID 10 days #40 caps 05/24/23 ondansetron 4 mg disintegrating 4 mg PO Q6H PRN nausea and 06/06/23 tablet vomiting #20 tabs Allergies Allergy/AdvReac Type Severity Reaction Status Date / Time aspirin Allergy Severe Verified 07/21/23 00:12 haloperidol [From Haldol] Allergy Severe Verified 07/21/23 00:12 hydroxyzine [From Vistaril] Allergy Severe Verified 07/21/23 00:12 ketorolac [From Toradol] Allergy Severe Verified 07/21/23 00:12 magnesium sulfate Allergy Severe Verified 07/21/23 00:12 naproxen [From Anaprox] Allergy Severe Verified 07/21/23 00:12 Review of Systems ROS Status of ROS 10 or more systems reviewed and unremark able except as noted in history and below PFSH PFSH Social History Smoking status: Current every day smoker Exam Constitutional Vital Signs, click to edit/add: Last Vital Signs Temp 97.9 F 07/21/23 00:09 Pulse 72 07/21/23 00:09 Resp 16 07/21/23 00:09 BP 109/69 07/21/23 00:09 Pulse Ox 99 07/21/23 00:09 O2 Del Method Room Air 07/21/23 00:09 Common normals: no apparent distress, average body habitus, oriented x3, no limitations, healthy appearing, alert and well nourished Eye Common normals: EOMs intact bilaterally and conjunctivae normal Respiratory Common normals: normal respiratory effort and no retractions Cardio Common normals: regular rate, regular rhythm, S1 normal heart sound and S2 normal heart sound Extremity Other: mild swelling and faint erythema about nail right index finger. N/v normal Neuro Common normals: oriented x3, CN's II-XII intact bilaterally, moves all extremities and no focal motor deficits Psych Appearance: grossly normal Course Vital Signs Vital signs: Vital Signs Temperature 97.9 F 07/21/23 00:09 Pulse Rate 72 07/21/23 00:09 Respiratory Rate 16 07/21/23 00:09 Blood Pressure 109/69 07/21/23 00:09 Pulse Oximetry 99 07/21/23 00:09 Oxygen Delivery Method Room Air 07/21/23 00:09 Temperature 97.9 F 07/21/23 00:09 Pulse Rate 72 07/21/23 00:09 Respiratory Rate 16 07/21/23 00:09 Blood Pressure 109/69 07/21/23 00:09 Pulse Oximetry 99 07/21/23 00:09 Oxygen Delivery Method Room Air 07/21/23 00:09 MDM - Extremity (Nontraumatic) MDM Narrative Medical decision making narrative: patient presents with an early paronychia right index. given dose of augmentin and discharged home with a prescription for Augmentin Discharge Plan Discharge Chief Complaint: Extremity Problem, Nontraumatic Clinical Impression: Paronychia of finger Prescriptions / Home Meds: No Action acetaminophen-codeine 300-30 mg tablet 1 tab PO Q6H PRN (Reason: pain) Qty: 20 0RF cephalexin 500 mg capsule 500 mg PO QID 10 Days Qty: 40 0RF albuterol sulfate 2.5 mg /3 mL (0.083 %) solution for nebulization 2.5 mg inhalation Q6H PRN (Reason: shortness of breath or wheezing) tizanidine 2 mg tablet 2 mg PO Q12H fluticasone propion-salmeterol [Advair Diskus] 250-50 mcg/dose blister with device 1 inh inhalation BID ondansetron 4 mg tablet,disintegrating 4 mg PO Q6H PRN (Reason: nausea and vomiting) Qty: 20 0RF fluoxetine 40 mg capsule olanzapine 10 mg tablet ropinirole 0.5 mg tablet folic acid 1 mg tablet albuterol sulfate 90 mcg/actuation HFA aerosol inhaler INHALATION Instructions: Paronychia (ED) Stand Alone Forms: Portal Instructions Referrals: [facility] [Primary Care Provider] - 1 week
[2023-07-21] MEDS: AMOXICILLIN/POTASSIUM CLAV 1 TAB TABLET PO (00:31)
[2023-07-21 00:34] VITALS: PULSE 82; RESP 16; O2SAT 97
== END 2023-07-21 00:35 | disposition home or self-care (01) ==
LOC: ER 00:11
PROVIDERS: Emergency Provider Internal Medicine
DX: L03.011 Cellulitis of right finger (principal); F17.210 Nicotine dependence, cigarettes, uncomplicated; Z79.899 Other long term (current) drug therapy
CPT/HCPCS: 99283

== ENCOUNTER 2023-10-20 22:10 | Emergency (ER) | payer MEDICAID, SELFPAY ==
[2023-10-20 22:19] VITALS: BP 110/67; PULSE 79; TEMP 37.1; O2SAT 100; BMI 23.2
--- OUTSIDE RECORDS SUMMARY | 2023-10-20 22:22 | XMS_ITS | CCD ---
Author Organization [facility] Care Team Providers Care Wave Solder Offbearer Name Role Phone Cande Hinds Primary Care Physician Bree Jimenes Unavailable Unavailable [facility] Primary Care Provider ZANE Ruiz Attending Pr ovider [facility] Primary Care Provider ZANE Ruiz Attending Pr ovider ZANE Ruiz Attending Pr ovider [facility] Primary Care Provider [phone] MD Salvador Maier Jr Emergency Provider ZANE Ruiz Attending Pr ovider NON ST[facility]FF [facility] Primary Care Provider MD Salvador Maier Jr Emergency Provider [facility] Primary Care Unavaila sindhu ROSE ., DR RICH Admitting Unavailable ROSE ., DR RICH Attending Unavailable ROSE ., DR RICH Consulting Unavailable [facility] Primary Care Unavaila sindhu ANGELA, DR ADDY Arrington Admitting Unavailable COREEN, DR ADDY Arrington Attending Unavailable ROSALIA ARROYO Consulting Unavailable [facility] Primary Care Unavaila MU Bose Admitting Unavailable [facility] SHERWOOD Attending Unavailable EMMANUEL, DR MILE Pedersen Consulting Unavailable PAY ., DR ARGUETA Consulting Unavailable [facility] Consulting Unavailable LUDIN ANGELES Consulting Unavailable [facility] Primary Care Unavaila sindhu ANGELA, DR ADDY Arrington Admitting Unavailable COREEN, DR ADDY Arrington Attending Unavailable COREEN, DR ADDY Arrington Consulting Unavailable AUDREY IRENE Consulting Unavailable [facility] Primary Care Unavaila ble MARKER ., DR GARCIA Admitting Unavailable MARKER ., DR GARCIA Attending Unavailable MARKER ., DR GARCIA Consulting Unavailable [facility] Care Unavaila ble SHAWNA ., TREVOR Admitting Unavailable SHAWNA ., TREVOR Attending Unavailable SHAWNA ., TREVOR Consulting Unavailable [facility] Care Unavaila ble SHAWNA ., TREVOR Admitting Unavailable SHAWNA ., TREVOR Attending Unavailable AYE ., CARISSA CAMP Consulting UnavailKAE Pelaez Consulting Unavailable ZANE Ruiz Attending Pr ovider Adam ERICKSON Attending Unavailable Adam ERICKSON Attending Unavailable RUFINA RUIZ Referring Unavailable ANAID TREADWELL Attending Unavailab ZANE Avalos Attending Pr ovider DAMIAN JOVEL Attending Unavailable ZANE Ruiz Attending Pr ovider MORGAN Jovel Attending Provider Mast, DO Brian Attending Provider Unallocated, Noms Provider Primary Care Provider [facility] Primary Care Provider ZANE uRiz Attending Pr ovider Rufina Ruiz Attending U [facility] Primary Care Unavaila ble Rufina Ruiz Admitting U navailable Rufina Ruiz Attending U navailable RuizRufina dickerson Admitting U navailable Ruiz, Rufina Lerma Attending U navailable Ruiz, Rufina Lerma Admitting U navailable Mast - [facility], Brian Admitting Unavailable Mast - [facility], Brian Attending Unavailable Pepe Guerra Referring Unavailable Damian Jovel Admitting Unavailable Damian Jovel Attending Unavailable Allergies Allergy Classification Reported Allergen(s) Allergy Type Date of Onset Reaction(s) Facility (13 sources) Aspirin; Translations: [aspirin] Drug Allergy 12-17-19 21 vomiting, Nausea [facility] (14 sources) Haloperidol; Translations: [haloperidol] Drug Allergy 12-17-19 21 jaw locked sideways, Anaphylaxis [facility] (14 sources) hydrOXYzine; Translations: [hydroxyzine] Drug Allergy 12-17-19 rash, vomiting, [facility] (3 sources) Ketorolac; Translations: [ketorolac] Drug Allergy migraines [facility] (13 sources) Magnesium Sulfate; Translations: [magnesium sulfate] Drug Allergy 12-17-19 21 vomiting [facility] (14 sources) metroNIDAZOLE; Translations: [metronidazole] Drug Allergy 12-17-19 vomiting, [facility] (14 sources) Naproxen; Translations: [naproxen] Drug Allergy 12-17-19 21 Other [facility] (4 sources) NSAIDs; Translations: [NSAIDs] Drug allergy 04-23-20 23 Other [facility] (4 sources) Sulfamethoxazole / Trimethoprim; Translations: [sulfamethoxazole-t rimethoprim] Drug Allergy 05-26-20 23 vomiting [facility] (11 sources) Sulfamethoxazole; Translations: [sulfamethoxazole] Drug Allergy 12-17-19 21 [facility] (11 sources) Trimethoprim; Translations: [trimethoprim] Drug Allergy 12-17-19 21 [facility] (11 sources) NSAIDS (Non-Steroidal Anti-Inflamma; Translations: [NSAIDS (Non-Steroidal Anti-Inflamma] Allergy to substance 12-17-19 21 [facility] (1 source) Aspirin Drug Allergy 10-08-19 15 [facility] (1 source) Haloperidol Drug Allergy 10-08-19 15 [facility] (1 source) hydrOXYzine Drug Allergy 09-14-19 16 [facility] (1 source) Iothalamate Drug Allergy 09-16-19 16 [facility] (1 source) Ketorolac Drug Allergy 09-14-19 16 [facility] (1 source) Magnesium Sulfate Drug Allergy 10-08-19 15 [facility] (1 source) metroNIDAZOLE Drug Allergy 10-08-19 15 [facility] (1 source) Naproxen Drug Allergy 10-08-19 15 [facility] (1 source) NSAIDs Drug allergy (disorder) 10-08-19 [facility] (1 source) Sulfonamides (Antibiotic) Drug allergy (disorder) 10-08-19 [facility] (1 source) Aluminum aspirin Drug Allergy 04-23-20 [facility] (1 source) Ketorolac Allergy to substance 05-26-20 [facility] (1 source) Ketorolac trometamol Propensity to adverse reactions 04-23-20 [facility] (1 source) Magnesium Salicylate Drug Allergy 05-26-20 Other [facility] (1 source) Magnesium sulfate Propensity to adverse reactions 04-23-20 [facility] (1 source) Metoclopramide Drug Allergy 04-23-20 [facility] (1 source) Penicillins Drug Allergy 05-26-20 [facility] (1 source) Sulfonamides (Antibiotic) Drug Allergy 05-26-20 [facility] (2 sources) Sulfacetamide; Translations: [sulfacetamide] Drug Allergy 10-16-19 [facility] (2 sources) Sulfur; Translations: [sulfur] Drug Allergy 10-16-19 [facility] (1 source) Aspirin Drug Allergy 07-22-19 [facility] (1 source) Haloperidol Drug Allergy 07-22-19 [facility] (1 source) hydrOXYzine Drug Allergy 07-22-19 [facility] (1 source) Magnesium Sulfate Drug Allergy 07-22-19 [facility] (1 source) metroNIDAZOLE Drug Allergy 07-22-19 [facility] (1 source) Naproxen Drug Allergy 07-22-19 [facility] Medications Current Medications Medication Drug Class(es) Dates Sig (Normalized) Sig (Original) acetaminophen 300 mg / codeine phosphate 30 mg oral tablet (1 source) Opioid Agonist Start: 05-24-2023 acetaminophen-cod eine (Tylenol w/ Codeine #3) 300-30 MG tablet acetaminophen 325 mg / oxyCODONE hydrochloride 5 mg oral tablet (8 sources) Opioid Agonist Start: 07-22-2022 take 1 tablet by mouth every six hours Oxycodone-Acetami nophen (Percocet) 5-325 mg tablet Active 1 - 2 TAB PO Every 6 hours 15 3 July 22, 2022 Start: 05-30-2021 Percocet 325 m g-5 mg Tab See Instructions, as needed for pain, 50 tab(s), Refill(s) 0, 1-2 tab(s) Oral q4hr, [facility] MORAL[facility] 858, 156, cm, 05/21/21 5:13:00 EST, Height/Length Dosing, 57.1, kg, 05/21/21 5:13:00 EST, Weight Dosing Start Date: 05/30/21 Status: Ordered albuterol 0.83 mg/ml inhalation solution (10 sources) beta2-Adrenergic Agonist Start: 07-22-2022 take 1 mg by inhalation once daily Albuterol Sulfate Active 1 MG INHALATION Daily July 22, 2022 1:00am Start: 05-20-2021 take 2.5 mg by inhal [...] 0, COPD Start Date: 05/20/21 Status: Ordered cephalexin 500 mg oral capsule (1 source) Cephalosporin Antibacterial Start: 05-24-2023 cephalexin (Keflex) 500 MG capsule ciclopirox 80 mg/ml topical solution (1 source) Start: 03-16-2023 ciclopirox (Penlac) 8 % solution docusate sodium 100 mg oral capsule (1 source) Start: 05-30-2021 take 1 capsule by mouth twice daily as needed for constipation Colace 100 mg Cap 100 mg = 1 cap(s), Oral, BID, PRN for constipation, # 20 cap(s), Refills(s) 0, Pharmacy: [facility] 858, 156, cm, 05/21/21 5:13:00 EST, Height/Length Dosing, 57.1, kg, 05/21/21 5:13:00 EST, Weight Dosing Start Date: 05/30/21 Status: Ordered famotidine 20 mg oral tablet (1 source) Histamine-2 Receptor Antagonist Start: 10-04-2022 take 1 tablet by mouth in the morning famotidine (Pepcid) 20 MG tablet Take 20 mg by mouth in the morning. 0 10/04/2022 Active FLUoxetine 40 mg oral capsule (3 sources) Serotonin Reuptake Inhibitor Start: 05-18-2023 FLUoxetine (PROzac) 40 MG capsule Start: 05-20-2021 take 1 capsule by [facility] once daily FLUoxetine 40 mg Cap 40 mg = 1 cap(s), Oral, Daily, Refills(s) 0, Anxiety Start Date: 05/20/21 Status: Ordered 120 actuat fluticasone propionate 0.045 mg/actuat / salmeterol 0.021 mg/actuat metered dose inhaler (1 source) Corticosteroid, beta2-Adrenergic Agonist fluticasone-salmeter ol (Advair HFA) 45-21 MCG/ACT inhaler Advair HFA 0 Active fluticasone-salmete rol 250 mcg-50 mcg Inh Pwdr (1 source) Start : 05-20 take 1 dose by inhalation every twelve hours fluticasone-salmeterol 250 mcg-50 mcg Inh Pwdr 1 vial, Inhalation, q12hr, Refill(s) 0, COPD Start Date: 05/20/21 Status: Ordered folic acid 1 mg oral tablet (1 source) Start : 04-12 folic acid (Folvite) 1 MG tablet OLANZapine 10 mg oral tablet (10 sources) Atypical Antipsychotic Start : 05-20 take 10 mg by mouth once daily Olanzapine Active 10 MG PO Daily July 22, 2022 1:00am omeprazole 20 mg delayed release oral capsule (7 sources) Proton Pump Inhibitor Start : 07-22 take 20 mg by mouth once daily Omeprazole Active 20 MG PO Daily July 22, 2022 1:00am ondansetron 4 mg disintegrating oral tablet (7 sources) Serotonin-3 Receptor Antagonist Start : 07-22 take 4 mg by mouth every eight hours Ondansetron Active 4 MG PO Q8H July 22, 2022 1:00am oxyCODONE hydrochloride 5 mg oral capsule (1 source) Opioid Agonist Start : 06-08 oxyCODONE 5 mg Cap 5 mg = 1 cap(s), Oral, q6hr, PRN Pain 8-10, # 4 cap(s), Refills(s) 0, Pharmacy: [facility] 858, 155, cm, 06/08/21 8:15:00 EST, Height/Length Dosing, 60, kg, 06/08/21 8:15:00 EST, Weight Dosing Start Date: 06/08/21 Status: Ordered rOPINIRole 0.5 mg oral tablet (10 sources) Nonergot Dopamine Agonist Start : 07-22 take 0.5 mg by mouth once daily Ropinirole Active 0.5 MG PO Daily July 22, 2022 1:00am Start: 05-20-2021 take 1 tablet by marielena th once daily ropinirole 0.25 mg Tab 0.25 mg = 1 tab(s), Oral, Daily, Refills(s) 0, Other (see comment) Start Date: 05/20/21 Status: Ordered tiZANidine 2 mg oral tablet (8 sources) Central alpha-2 Adrenergic Agonist Start: 07-22-2022 take 2 mg by mouth once daily Tizanidine Active 2 MG PO Daily July 22, 2022 1:00am traMADol hydrochloride 50 mg oral tablet (1 source) Opioid Agonist Start: 04-23-2023 traMADol (Ultr am) 50 MG tablet Vitamin B-12 1000 mcg oral tablet (1 source) Start: 10-27-2022 Vitamin B-12 1 000 mcg oral tablet Refills(s) 0 Start Date: 10/27/22 Status: Ordered vitamin b12 1 mg oral tablet (1 source) Vitamin B12 Start: 02-03-2023 cyanocobalamin (Vitamin B-12) 1000 MCG tablet Completed/Discontinued Medications Medication Drug Class(es) Dates Sig (Normalized) Sig (Original) ciprofloxacin 500 mg oral tablet (9 sources) Quinolone Antimicrobial Start: 10-27-2022 take 1 tablet by mouth once daily Cipro 500 mg Tab 500 mg = 1 tab(s), Oral, Daily, Take 1 tablet the day before the procedure and 1 tablet after the procedure, # 2 tab(s), Refills(s) 0, Pharmacy: [facility] [id number], 156, cm, 10/27/22 14:36:00 EDT, Height/Length Dosing, 62, kg, 10/27/22 14:36:00... Start Date: 11/27/22 Status: Ordered Start: 07-22-2022 take 250 mg by mouth once daily Ciprofloxacin Hcl Active 250 MG PO Daily July 22, 2022 1:00am Problems Active Problems Problem Classification Problem Date Documented Date Episodic/Chronic Abdominal pain (12 sources) Epigastric pain; Translations: [Epigastric pain] Onset: 11-26-2021 07-22-2022 Episodic Allergic reactions (4 sources) Allergy, unspecified, initial encounter; Translations: [ALLERGY UNSPECIFIED INITIAL ENCNTR] Onset: 10-04-2022 Episodic Anxiety disorders (13 sources) Anxiety; Translations: [Anxiety disorder, unspecified] Onset: 10-05-2022 12-28-2013 Chronic Asthma (1 source) Unspecified asthma, uncomplicated; Translations: [UNSPECIFIED ASTHMA UNCOMPLICATED] Onset: 11-24-2021 Chronic Calculus of urinary tract (2 sources) History of calculus of kidney; Translations: [Personal history of urinary calculi] Onset: 09-28-2023 10-27-2022 Episodic Chronic obstructive pulmonary disease and bronchiectasis (1 source) Chronic obstructive lung disease 09-30-2022 Chronic Gastritis and duodenitis (1 source) Gastritis, unspecified, without bleeding; Translations: [GASTRITIS UNS WITHOUT BLEEDING] Onset: 07-23-2022 Episodic Genitourinary symptoms and ill-defined conditions (3 sources) Dysuria; Translations: [Hematuria, unspecified] Onset: 06-29-2023 Episodic Headache; including migraine (6 sources) Migraine without aura, not refractory ; Translations: [Migraine, unspecified, not intractable, without status migrainosus] Onset: 11-06-2021 06-22-2015 Chronic Headache; including migraine (2 sources) Headache 05-20-2021 Episodic Mood disorders (5 sources) Depression; Translations: [Bipolar disorder, unspecified] Onset: 10-05-2022 09-22-2013 Chronic Nausea and vomiting (5 sources) Nausea; Translations: [Nausea with vomiting, unspecified] Onset: 06-24-2022 Episodic Nonspecific chest pain (10 sources) Atypical chest pain; Translations: [Other chest pain] 05-29-2019 Episodic Nutritional deficiencies (2 sources) Deficiency of other specified B group vitamins; Translations: [Deficiency of other specified B group vitamins] Onset: 03-19-2023 Episodic Other aftercare (1 source) Other [employer] (current) drug therapy; Translations: [OTH FCI CURRENT DRUG THERAPY] Onset: 07-23-2022 Episodic Other connective tissue disease (2 sources) Impingement syndrome of shoulder region 05-20-2021 Episodic Other hereditary and degenerative nervous system conditions (1 source) Restless legs syndrome; Translations: [Restless legs syndrome] Onset: 03-19-2023 Chronic Other non-traumatic joint disorders (1 source) Pain of right shoulder joint; Translations: [Pain in right shoulder] Onset: 11-24-2021 Episodic Other non-traumatic joint disorders (10 sources) Chronic pain of right upper limb; Translations: [Pain in right shoulder] 12-16-2020 Episodic Residual codes; unclassified (1 source) Acquired [...] Other Problems Problem Classification Problem Date Documented Date Episodic/Chronic Biliary tract disease (1 source) Calculus of bile duct without cholangitis or cholecystitis without obstruction; Translations: [CALC BD NO CHOLANG/CHOLCYST NO OBST] Onset: 11-26-2021 Episodic E Codes: Natural/environment (1 source) Overexertion from prolonged static or awkward postures, initial encounter; Translations: [OVEREXERT PROLNG STAT/AWK PST INIT] Onset: 11-24-2021 Episodic Joint disorders and dislocations; trauma-related (1 source) Unspecified dislocation of right acromioclavicular joint, initial encounter; Translations: [UNS DISLOCATION RT AC JNT INITIAL] Onset: 11-24-2021 Episodic Other diseases of kidney and ureters (1 source) Cyst of kidney, acquired; Translations: [CYST OF KIDNEY ACQUIRED] Onset: 11-26-2021 Episodic Other non-traumatic joint disorders (3 sources) Pain in right shoulder; Translations: [PAIN IN RIGHT SHOULDER] Onset: 11-21-2021 Episodic Other skin disorders (1 source) Ingrowing nail; Translations: [Ingrowing nail] Onset: 05-26-2023 Episodic Residual codes; unclassified (1 source) Other specified postprocedural states; Translations: [OTH SPECIFIED POSTPROCEDURAL STATES] Onset: 11-24-2021 Episodic Residual codes; unclassified (1 source) Tobacco use; Translations: [Tobacco use] Onset: 03-19-2023 Episodic Skin and subcutaneous tissue infections (4 sources) Cutaneous abscess of right lower limb; Translations: [CUTANEOUS ABSCESS RIGHT LOWER LIMB] Onset: 04-08-2022 Episodic Viral infection (1 source) Viral infection, unspecified; Translations: [VIRAL INFECTION UNSPECIFIED] Onset: 06-26-2022 Episodic Results Test Name Value Interpretation Reference Range Facility Alanine aminotransferase [En zymatic activity/volume] in Serum or PlasmaOrdered By: Rufina Ruiz on 09-28-2023 ALT [Catalytic activity/Vol] 7 U/L 7-52 [facility] Albumin [Mass/volume] in Ser um or Plasma by Bromocresol green (BCG) dye binding methoOrdered By: Rufina Ruiz on 09-28-2023 Albumin BCG dye [Mass/Vol] 4.9 g/dL 3.5-5.7 [facility] Alkaline phosphatase [Enzyma tic activity/volume] in Serum or PlasmaOrdered By: Rufina Ruiz on 09-28-2023 ALP [Catalytic activity/Vol] 100 U/L 34-104 [facility] Aspartate aminotransferase [ Enzymatic activity/volume] in Serum or PlasmaOrdered By: Rufina Ruiz on 09-28-2023 AST [Catalytic activity/Vol] 11 U/L 13-39 [facility] Bilirubin.total [Mass/volume ] in Serum or PlasmaOrdered By: Rufina Ruiz on 09-28-2023 Bilirubin [Mass/Vol] 0.3 mg/dL 0.3-1.0 [facility] Calcium [Mass/volume] in Ser um or PlasmaOrdered By: Rufina Ruiz on 09-28-2023 Calcium [Mass/Vol] 9.7 mg/dL 8.6-10.3 [facility] Carbon dioxide, total [Moles /volume] in Serum or PlasmaOrdered By: Rufina Ruiz on 09-28-2023 CO2 [Moles/Vol] 29.3 mmol/L 21.0-31.0 [facility] Chloride [Moles/volume] in S siddhartha or PlasmaOrdered By: Rufina Ruiz on 09-28-2023 Chloride [Moles/Vol] 107 mmol/L 98-107 [facility] Comprehensive Metabolic Pane louise 09-28-2023 Albumin [Mass/Vol] 4.9 g/dL Normal 3.5-5.7 [facility] Comment on above: Order Comment: Reaso n for Exam Bipolar disorder Performed By: #### F E and TIBC, ALOK, LIPID, [id number], CMP, CBC, THYROID SC #### [facility] [address] Albumin/Globulin [Mass ratio] 2.2 {ratio} Normal [facility] Comment on above: Order Comment: Reaso n for Exam Bipolar disorder Performed By: #### F E and TIBC, ALOK, LIPID, [id number], CMP, CBC, THYROID SC #### [facility] [address] ALP [Catalytic activity/Vol] 100 U/L Normal 34-104 [facility] Comment on above: Order Comment: Reaso n for Exam Bipolar disorder Performed By: #### F E and TIBC, ALOK, LIPID, [id number], CMP, CBC, THYROID SC #### [facility] [address] ALT [Catalytic activity/Vol] 7 U/L Normal 7-52 [facility] Comment on above: Order Comment: Reaso n for Exam Bipolar disorder Performed By: #### F E and TIBC, ALOK, LIPID, [id number], CMP, CBC, THYROID SC #### [address] Anion gap [Moles/Vol] 8.6 mmol/L Normal 6.0-15.0 [facility] Comment on above: Order Comment: Reaso n for Exam Bipolar disorder Performed By: #### F E and TIBC, ALOK, LIPID, [id number], CMP, CBC, THYROID SC #### [address] AST [Catalytic activity/Vol] 11 U/L Low 13-39 [facility] Comment on above: Order Comment: Reaso n for Exam Bipolar disorder Performed By: #### F E and TIBC, ALOK, LIPID, [id number], CMP, CBC, THYROID SC #### [address] Bilirubin [Mass/Vol] 0.3 mg/dL Normal 0.3-1.0 [facility] Comment on above: Order Comment: Reaso n for Exam Bipolar disorder Performed By: #### F E and TIBC, ALOK, LIPID, [id number], CMP, CBC, THYROID SC #### [facility] [address] [place] [address] Calcium [Mass/Vol] 9.7 mg/dL Normal 8.6-10.3 [facility] Comment on above: Order Comment: Reaso n for Exam Bipolar disorder Performed By: #### F E and TIBC, ALOK, LIPID, [id number], CMP, CBC, THYROID SC #### [address] Chloride [Moles/Vol] 107 mmol/L Normal 98-107 [facility] Comment on above: Order Comment: Reaso n for Exam Bipolar disorder Performed By: #### F E and TIBC, ALOK, LIPID, [id number], CMP, CBC, THYROID SC #### [address] CO2 [Moles/Vol] 29.3 mmol/L Normal 21.0-31.0 [facility] Comment on above: Order Comment: Reaso n for Exam Bipolar disorder Performed By: #### F E and TIBC, ALOK, LIPID, [id number], CMP, CBC, THYROID SC #### [address] Creatinine [Mass/Vol] 0.60 mg/dL Normal 0.60-1.20 [facility] Comment on above: Order Comment: Reaso n for Exam Bipolar disorder Performed By: #### F E and TIBC, ALOK, LIPID, [id number], CMP, CBC, THYROID SC #### [address] GFR/1.73 sq M.predicted MDRD (S/P/Bld) [Vol rate/Area] mL/min/{1.73_m2} [facility] Comment on above: Order Comment: Reaso n for Exam Bipolar disorder Performed By: #### F E and TIBC, ALOK, LIPID, [id number], CMP, CBC, THYROID SC #### [address] Globulin (S) [Mass/Vol] 2.2 g/dL Normal [facility] Comment on above: Order Comment: Reaso n for Exam Bipolar disorder Performed By: #### F E and TIBC, ALOK, LIPID, [id number], CMP, CBC, THYROID SC #### [address] Glucose [Mass/Vol] 90 mg/dL Normal 70-100 [facility] Comment on above: Order Comment: Reaso n for Exam Bipolar disorder Result Comment: [place] Glucose Reference Range is dependent on time and content of last meal. Glucose of more than 200 mg/dL in a nonstressed, ambulatory subject supports the diagnosis of Diabetes Mellitus. ADA recommended reference range Performed By: #### F E and TIBC, ALOK, LIPID, [id number], CMP, CBC, THYROID SC #### [facility] [address] Potassium [Moles/Vol] 3.9 mmol/L Normal 3.5-5.1 [facility] Comment on above: Order Comment: Reaso n for Exam Bipolar disorder Performed By: #### F E and TIBC, ALOK, LIPID, [id number], CMP, CBC, THYROID SC #### [facility] [address] Protein [Mass/Vol] 7.1 g/dL Normal 6.4-8.9 [facility] Comment on above: Order Comment: Reaso n for Exam Bipolar disorder Performed By: #### F E and TIBC, ALOK, LIPID, [id number], CMP, CBC, THYROID SC #### [address] Sodium [Moles/Vol] 141 mmol/L Normal 136-145 [facility] Comment on above: Order Comment: Reaso n for Exam Bipolar disorder Performed By: #### F E and TIBC, ALOK, LIPID, [id number], CMP, CBC, THYROID SC #### [address] Urea nitrogen [Mass/Vol] 10 mg/dL Normal 7-25 [facility] Comment on above: Order Comment: Reaso n for Exam Bipolar disorder Performed By: #### F E and TIBC, ALOK, LIPID, [id number], CMP, CBC, THYROID SC #### [address] Creatinine [Mass/volume] in Serum or PlasmaOrdered By: Rufina Ruiz on 09-28-2023 Creatinine [Mass/Vol] 0.60 mg/dL 0.60-1.20 [facility] Ferritinon 09-28-2023 Ferritin [Mass/Vol] 72.4 ng/mL Normal 11.0-306.8 [facility] Comment on above: Order Comment: Reaso n for Exam Bipolar disorder Performed By: #### F E and TIBC, ALOK, LIPID, [id number], CMP, CBC, THYROID SC #### [facility] [address] [place] [id number] [facility] Ferritin [Mass/volume] in Se rum or PlasmaOrdered By: Rufina Ruiz on 09-28-2023 Ferritin [Mass/Vol] 72.4 ng/mL 11.0-306.8 [facility] Folate [Mass/volume] in Seru m or PlasmaOrdered By: Rufina Ruiz on 09-28-2023 Folate [Mass/Vol] 6.3 ng/mL >5.9 [facility] Comment on above: Folate reference ran ge: >5.9 ng/mlThe WHO technical consultation on folate and vitamin [id number] has determined that folate concentrations lessthan 4 ng/ml are considered deficient. Globulin Calc (S) [Mass/Vol] Ordered By: Rufina Ruiz on 09-28-2023 Globulin (S) [Mass/Vol] 2.2 g/dL [facility] Glucose [Mass/volume] in Ser um or PlasmaOrdered By: Rufina Ruiz on 09-28-2023 Glucose [Mass/Vol] 90 mg/dL 70-100 [facility] Comment on above: ADA recommended refe rence rangeRandom Glucose Reference Range is dependent on time and content of last meal. Glucose of more than 200 mg/dL in a nonstressed, ambulatory subject supports the diagnosis of Diabetes Mellitus. Iron [Mass/volume] in Serum or PlasmaOrdered By: Rufina Ruiz on 09-28-2023 Iron [Mass/Vol] 92 ug/dL 50-212 [facility] Iron and TIBC Profileon 09-09 % Iron Saturation 28.5 % Normal 20-50 [facility] Comment on above: Order Comment: Reaso n for Exam Bipolar disorder Performed By: #### F E and TIBC, ALOK, LIPID, [id number], CMP, CBC, THYROID SC #### [facility] [address] [place] [address] [facility] Iron [Mass/Vol] 92 ug/dL Normal 50-212 [facility] Comment on above: Order Comment: Reaso n for Exam Bipolar disorder Performed By: #### F E and TIBC, ALOK, LIPID, [id number], CMP, CBC, THYROID SC #### [facility] [address] Total Iron Binding Capacity 323 ug/dL Normal 255-450 [facility] Comment on above: Order Comment: Reaso n for Exam Bipolar disorder Performed By: #### F E and TIBC, ALOK, LIPID, [id number], CMP, CBC, THYROID SC #### [facility] [address] Transferrin [Mass/Vol] 231 mg/dL Normal 203-362 [facility] Comment on above: Order Comment: Reaso n for Exam Bipolar disorder Performed By: #### F E and TIBC, ALOK, LIPID, [id number], CMP, CBC, THYROID SC #### [facility] [address] Iron binding capacity [Mass/ volume] in Serum or PlasmaOrdered By: Rufina Ruiz on 09-28-2023 Iron binding capacity [Mass/Vol] 323 ug/dL 255-450 [facility] Iron saturation [Mass Fracti on] in Serum or PlasmaOrdered By: Rufina Ruiz on 09-28-2023 Iron saturation [Mass fraction] 28.5 % 20-50 [facility] No Panel InformationOrdered By: Rufina Ruiz on 09-28-2023 Estimated GFR (CKD-EPI) > 60.0 mL/Min [facility] Creatinine Clearance (Chem N/A [facility] Potassium [Moles/volume] in Serum or PlasmaOrdered By: Rufina Ruiz on 09-28-2023 Potassium [Moles/Vol] 3.9 mmol/L 3.5-5.1 [facility] Protein [Mass/volume] in Ser um or PlasmaOrdered By: Rufina Ruiz on 09-28-2023 Protein [Mass/Vol] 7.1 g/dL 6.4-8.9 [facility] Serum or plasma albumin/glob ulin mass ratioOrdered By: Rufina Ruiz on 09-28-2023 Albumin/Globulin [Mass ratio] 2.2 {ratio} [facility] Serum or plasma anion gap de terminationOrdered By: Rufina Ruiz on 09-28-2023 Anion gap [Moles/Vol] 8.6 mmol/L 6.0-15.0 [facility] Sodium [Moles/volume] in Ser um or PlasmaOrdered By: Rufina Ruiz on 09-28-2023 Sodium [Moles/Vol] 141 mmol/L 136-145 [facility] THYROID SCREENon 09-28-2023 Free T4 [Mass/Vol] 0.86 ng/dL Normal 0.61-1.12 [facility] Comment on above: Order Comment: Reaso n for Exam Bipolar disorder Performed By: #### F E and TIBC, ALOK, LIPID, [id number], CMP, CBC, THYROID SC #### [facility] [address] TSH Qn 2.58 m[IU]/L Normal 0.45-5.33 [facility] Comment on above: Order Comment: Reaso n for Exam Bipolar disorder Result Comment: PERF ORMED BY: [place] [address] PATHOLOGIST [employer] SERVICES REPRESENTATIVE MARINE WARD M.D. Performed By: #### F E and TIBC, ALOK, LIPID, [id number], CMP, CBC, THYROID SC #### [facility] [address] Thyrotropin [Units/volume] i n Serum or PlasmaOrdered By: Rufina Ruiz on 09-28-2023 TSH Qn 2.58 m[IU]/L 0.45-5.33 [facility] Thyroxine (T4) free [Mass/vo lume] in Serum or PlasmaOrdered By: Rufina Ruiz on 09-28-2023 Free T4 [Mass/Vol] 0.86 ng/dL 0.61-1.12 [facility] Transferrin [Mass/volume] in Serum or PlasmaOrdered By: Rufina Ruiz on 09-28-2023 Transferrin [Mass/Vol] 231 mg/dL 203-362 [facility] Urea nitrogen [Mass/volume] in Serum or PlasmaOrdered By: Rufina Ruiz on 09-28-2023 Urea nitrogen [Mass/Vol] 10 mg/dL 7 [facility] Urine Cultureon 09-28-2023 Bacteria identified Cx Nom (U) Reason for Exam Dysuria;History of kidney stones Urine Reason for Exam: Dysuria;History of kidney stones : Urine 20,000 colonies/ml mixed bacterial skin contaminants 2 Days PERFORMED BY: [place] [address] PATHOLOGIST [employer] REPRESENTATIVE MARINE WARD M.D. Normal [facility] Comment on above: Performed By: #### F E and TIBC, ALOK, LIPID, [id number], CMP, CBC, THYROID SC #### [facility] [address] [place] [address] Vit. B12/Folate Profileon Cobalamin (Vitamin B12) [Mass/Vol] 6683 pg/mL High 180-[address] [place] [address] Comment on above: Order Comment: Reaso n for Exam Bipolar disorder Performed By: #### F E and TIBC, ALOK, LIPID, [id number], CMP, CBC, THYROID SC #### [facility] [address] [place] [address] Folate 6.3 ng/mL Normal >5.9 [facility] Comment on above: Order Comment: Reaso n for Exam Bipolar disorder Result Comment: Senait te reference range: >5.9 ng/ml The WHO technical consultation on folate and vitamin b12 deficiencies has determined that folate concentrations less than 4 ng/ml are considered deficient. Performed By: #### F E and TIBC, ALOK, LIPID, [id number], CMP, CBC, THYROID SC #### [facility] [address] [place] [address] Vitamin B12 ser/plasOrdered By: Rufina Ruiz on 09-28-2023 Cobalamin (Vitamin B12) [Mass/Vol] 6683 pg/mL 180-914 [facility] Urine Cultureon 06-29-2023 Bacteria identified Cx Nom (U) 15,000 colonies/ml mixed bacterial skin contaminants 2 Days PERFORMED BY: [place] [address] PATHOLOGIST [employer] SERVICES REPRESENTATIVE MARINE WARD M.D. [facility] Comment on above: Performed By: #### C UU #### [facility] [address] [place], [place] [id number] [facility] Aerobic cultureOrdered By: Kingsley Jovel on 05-26-2023 Bacteria identified Aer cx Nom (Unsp spec) 2 Days [facility] Superficial Wound Cultureon 05-26-2023 Superficial Wound Culture Ingrowing nail Light Normal Skin Kacey 2 Days PERFORMED BY: [place] [address] PATHOLOGIST [employer] SERVICES REPRESENTATIVE MARINE WARD M.D. [facility] Comment on above: Performed By: #### C USUP #### [facility] [address] [place] [id number] [facility] Alanine aminotransferase [En zymatic activity/volume] in Serum or PlasmaOrdered By: Rufina Ruiz on 03-19-2023 ALT [Catalytic activity/Vol] 7 U/L 7-52 [facility] Albumin [Mass/volume] in Ser um or Plasma by Bromocresol green (BCG) dye binding methoOrdered By: Rufina Ruiz on 03-19-2023 Albumin BCG dye [Mass/Vol] 4.3 g/dL 3.5-5.7 [facility] Alkaline phosphatase [Enzyma tic activity/volume] in Serum or PlasmaOrdered By: Rufina Ruiz on 03-19-2023 ALP [Catalytic activity/Vol] 100 U/L 34-104 [facility] Aspartate aminotransferase [ Enzymatic activity/volume] in Serum or PlasmaOrdered By: Rufina Ruiz on 03-19-2023 AST [Catalytic activity/Vol] 10 U/L 13-39 [facility] Basophils Auto (Bld) [#/Vol] Ordered By: Rufina Ruiz on 03-19-2023 Basophils (Bld) [#/Vol] 0.0 10*3/uL 0.0-0.2 [facility] Basophils/100 WBC Auto (Bld) Ordered By: Rufina Ruiz on 03-19-2023 Basophils/100 WBC (Bld) 0.4 % . F [facility] Bilirubin.total [Mass/volume ] in Serum or PlasmaOrdered By: Rufina Ruiz on 03-19-2023 Bilirubin [Mass/Vol] 0.3 mg/dL 0.3-1.0 [facility] Calcium [Mass/volume] in Ser um or PlasmaOrdered By: Rufina Ruiz on 03-19-2023 Calcium [Mass/Vol] 9.6 mg/dL 8.6-10.3 [facility] Carbon dioxide, total [Moles /volume] in Serum or PlasmaOrdered By: Rufina Ruiz on 03-19-2023 CO2 [Moles/Vol] 29.4 mmol/L 21.0-31.0 [facility] Chloride [Moles/volume] in S siddhartha or PlasmaOrdered By: Rufina Ruiz on 03-19-2023 Chloride [Moles/Vol] 108 mmol/L 98-107 [facility] Cholesterol [Mass/volume] in Serum or PlasmaOrdered By: Rufina Ruiz on 03-19-2023 Cholesterol [Mass/Vol] 164 mg/dL 140-200 [facility] Comment on above: Chol less than 200 m g/dl low riskChol 201-239 mg/dl borderline riskChol 240 mg/dl and greater high risk Cholesterol in LDL Calc [Mas s/Vol]Ordered By: Rufina Ruiz on 03-19-2023 Cholesterol in LDL [Mass/Vol] 84 mg/dL 0-100 [facility] Comment on above: LDL ATP III CLASSIFI CATIONLDL less than 100 mg/dL OptimalLDL 100-129 mg/dL Near or above optimalLDL 130-159 mg/dL Borderline highLDL 160-189 mg/dL HighLDL greater than 189 mg/dL Very high Cholesterol in VLDL Calc [Ma ss/Vol]Ordered By: Rufina Ruiz on 03-19-2023 Cholesterol in VLDL [Mass/Vol] 19 mg/dL [facility] Complete Blood Count Auto Di ffon 03-19-2023 Basophils (Bld) [#/Vol] 0.0 10*3/uL Normal 0.0-0.2 [facility] Comment on above: Order Comment: Reaso n for Exam Bipolar disorder Result Comment: PERF ORMED BY: [place] [address] PATHOLOGIST [employer] REPRESENTATIVE MARINE WARD M.D. Performed By: #### F E and TIBC, ALOK, LIPID, [id number], CMP, CBC, THYROID SC #### [address] Basophils/100 WBC (Bld) 0.4 % Normal . F [facility] Comment on above: Order Comment: Reaso n for Exam Bipolar disorder Performed By: #### F E and TIBC, ALOK, LIPID, [id number], CMP, CBC, THYROID SC #### [address] Eosinophils (Bld) [#/Vol] 0.1 10*3/uL Normal 0.0-0.45 [facility] Comment on above: Order Comment: Reaso n for Exam Bipolar disorder Performed By: #### F E and TIBC, ALOK, LIPID, [id number], CMP, CBC, THYROID SC #### [address] Eosinophils/100 WBC (Bld) 1.5 % Normal . [facility] Comment on above: Order Comment: Reaso n for Exam Bipolar disorder Performed By: #### F E and TIBC, ALOK, LIPID, [id number], CMP, CBC, THYROID SC #### [address] Erythrocyte distribution width (RBC) [Ratio] 13.7 % Normal 11.9-15.3 [facility] Comment on above: Order Comment: Reaso n for Exam Bipolar disorder Performed By: #### F E and TIBC, ALOK, LIPID, [id number], CMP, CBC, THYROID SC #### [address] Hematocrit (Bld) [Volume fraction] 39.9 % Normal 34.0-46.4 [facility] Comment on above: Order Comment: Reaso n for Exam Bipolar disorder Performed By: #### F E and TIBC, ALOK, LIPID, [id number], CMP, CBC, THYROID SC #### [address] Hemoglobin (Bld) [Mass/Vol] 13.3 g/dL Normal 11.8-15.4 [facility] Comment on above: Order Comment: Reaso n for Exam Bipolar disorder Performed By: #### F E and TIBC, ALOK, LIPID, [id number], CMP, CBC, THYROID SC #### [address] Lymphocytes (Bld) [#/Vol] 2.4 10*3/uL Normal 1.00-4.8 [facility] Comment on above: Order Comment: Reaso n for Exam Bipolar disorder Performed By: #### F E and TIBC, ALOK, LIPID, [id number], CMP, CBC, THYROID SC #### [address] Lymphocytes/100 WBC (Bld) 25.6 % Normal . [facility] Comment on above: Order Comment: Reaso n for Exam Bipolar disorder Performed By: #### F E and TIBC, ALOK, LIPID, [id number], CMP, CBC, THYROID SC #### [address] MCH (RBC) [Entitic mass] 30.3 pg Normal 24.7-34.3 [facility] Comment on above: Order Comment: Reaso n for Exam Bipolar disorder Performed By: #### F E and TIBC, ALOK, LIPID, [id number], CMP, CBC, THYROID SC #### [address] MCV (RBC) [Entitic vol] 91.1 fL Normal 80-[address] [facility] Comment on above: Order Comment: Reaso n for Exam Bipolar disorder Performed By: #### F E and TIBC, ALOK, LIPID, [id number], CMP, CBC, THYROID SC #### [address] Mean Corpuscular HGB Conc 33.3 g/dL Normal 32.0-35.0 [facility] Comment on above: Order Comment: Reaso n for Exam Bipolar disorder Performed By: #### F E and TIBC, ALOK, LIPID, [id number], CMP, CBC, THYROID SC #### [address] Monocytes (Bld) [#/Vol] 0.7 10*3/uL Normal 0.0-0.8 [facility] Comment on above: Order Comment: Reaso n for Exam Bipolar disorder Performed By: #### F E and TIBC, ALOK, LIPID, [id number], CMP, CBC, THYROID SC #### [address] Monocytes/100 WBC (Bld) 7.1 % Normal . [facility] Comment on above: Order Comment: Reaso n for Exam Bipolar disorder Performed By: #### F E and TIBC, ALOK, LIPID, [id number], CMP, CBC, THYROID SC #### [address] Neutrophils (Bld) [#/Vol] 6.2 10*3/uL Normal 1.8-7.7 [facility] Comment on above: Order Comment: Reaso n for Exam Bipolar disorder Performed By: #### F E and TIBC, ALOK, LIPID, [id number], CMP, CBC, THYROID SC #### [address] Neutrophils/100 WBC (Bld) 65.4 % Normal . [facility] Comment on above: Order Comment: Reaso n for Exam Bipolar disorder Performed By: #### F E and TIBC, ALOK, LIPID, [id number], CMP, CBC, THYROID SC #### [address] NRBC% 0.2 /100{WBC} Normal 0-0.5 [facility] Comment on above: Order Comment: Reaso n for Exam Bipolar disorder Performed By: #### F E and TIBC, ALOK, LIPID, [id number], CMP, CBC, THYROID SC #### [facility] [address] Platelet mean volume (Bld) [Entitic vol] 10.4 fL Normal 6.3-10.7 [facility] Comment on above: Order Comment: Reaso n for Exam Bipolar disorder Performed By: #### F E and TIBC, ALOK, LIPID, [id number], CMP, CBC, THYROID SC #### [facility] [address] Platelets (Bld) [#/Vol] 179 10*3/uL Normal 150-450 [facility] Comment on above: Order Comment: Reaso n for Exam Bipolar disorder Performed By: #### F E and TIBC, ALOK, LIPID, [id number], CMP, CBC, THYROID SC #### [facility] [address] RBC (Bld) [#/Vol] 4.38 10*6/uL Normal 3.60-5.00 [facility] Comment on above: Order Comment: Reaso n for Exam Bipolar disorder Performed By: #### F E and TIBC, ALOK, LIPID, [id number], CMP, CBC, THYROID SC #### [facility] [address] WBC (Bld) [#/Vol] 9.6 10*3/uL Normal 3.8-11.6 [facility] Comment on above: Order Comment: Reaso n for Exam Bipolar disorder Performed By: #### F E and TIBC, ALOK, LIPID, [id number], CMP, CBC, THYROID SC #### [facility] [address] Comprehensive Metabolic Pane louise 03-19-2023 Albumin [Mass/Vol] 4.3 g/dL Normal 3.5-5.7 [facility] Comment on above: Order Comment: Reaso n for Exam Bipolar disorder Reason for Exam Restless leg syndrome Reason for Exam Tobacco use;Bipolar disorder Reason for Exam Vitamin B 12 deficiency Performed By: #### F E and TIBC, ALOK, LIPID, [id number], CMP, CBC, THYROID SC #### [facility] [address] Albumin/Globulin [Mass ratio] 2.0 {ratio} Normal [facility] Comment on above: Order Comment: Reaso n for Exam Bipolar disorder Reason for Exam Restless leg syndrome Reason for Exam Tobacco use;Bipolar disorder Reason for Exam Vitamin B 12 deficiency Performed By: #### F E and TIBC, ALOK, LIPID, [id number], CMP, CBC, THYROID SC #### [facility] [address] ALP [Catalytic activity/Vol] 100 U/L Normal 34-104 [facility] Comment on above: Order Comment: Reaso n for Exam Bipolar disorder Reason for Exam Restless leg syndrome Reason for Exam Tobacco use;Bipolar disorder Reason for Exam Vitamin B 12 deficiency Performed By: #### F E and TIBC, ALOK, LIPID, [id number], CMP, CBC, THYROID SC #### [facility] [address] ALT [Catalytic activity/Vol] 7 U/L Normal 7-52 [facility] Comment on above: Order Comment: Reaso n for Exam Bipolar disorder Reason for Exam Restless leg syndrome Reason for Exam Tobacco use;Bipolar disorder Reason for Exam Vitamin B 12 deficiency Performed By: #### F E and TIBC, ALOK, LIPID, [id number], CMP, CBC, THYROID SC #### [facility] [address] [place] [address] Anion gap [Moles/Vol] 6.2 mmol/L Normal 6.0-15.0 [facility] Comment on above: Order Comment: Reaso n for Exam Bipolar disorder Reason for Exam Restless leg syndrome Reason for Exam Tobacco use;Bipolar disorder Reason for Exam Vitamin B 12 deficiency Performed By: #### F E and TIBC, ALOK, LIPID, [id number], CMP, CBC, THYROID SC #### [facility] [address] AST [Catalytic activity/Vol] 10 U/L Low 13-39 [facility] Comment on above: Order Comment: Reaso n for Exam Bipolar disorder Reason for Exam Restless leg syndrome Reason for Exam Tobacco use;Bipolar disorder Reason for Exam Vitamin B 12 deficiency Performed By: #### F E and TIBC, ALOK, LIPID, [id number], CMP, CBC, THYROID SC #### [facility] [address] Bilirubin [Mass/Vol] 0.3 mg/dL Normal 0.3-1.0 [facility] Comment on above: Order Comment: Reaso n for Exam Bipolar disorder Reason for Exam Restless leg syndrome Reason for Exam Tobacco use;Bipolar disorder Reason for Exam Vitamin B 12 deficiency Performed By: #### F E and TIBC, ALOK, LIPID, [id number], CMP, CBC, THYROID SC #### [facility] [address] Calcium [Mass/Vol] 9.6 mg/dL Normal 8.6-10.3 [facility] Comment on above: Order Comment: Reaso n for Exam Bipolar disorder Reason for Exam Restless leg syndrome Reason for Exam Tobacco use;Bipolar disorder Reason for Exam Vitamin B 12 deficiency Performed By: #### F E and TIBC, ALOK, LIPID, [id number], CMP, CBC, THYROID SC #### [facility] [address] Chloride [Moles/Vol] 108 mmol/L High 98-107 [facility] Comment on above: Order Comment: Reaso n for Exam Bipolar disorder Reason for Exam Restless leg syndrome Reason for Exam Tobacco use;Bipolar disorder Reason for Exam Vitamin B 12 deficiency Performed By: #### F E and TIBC, ALOK, LIPID, [id number], CMP, CBC, THYROID SC #### [facility] [address] CO2 [Moles/Vol] 29.4 mmol/L Normal 21.0-31.0 [facility] Comment on above: Order Comment: Reaso n for Exam Bipolar disorder Reason for Exam Restless leg syndrome Reason for Exam Tobacco use;Bipolar disorder Reason for Exam Vitamin B 12 deficiency Performed By: #### F E and TIBC, ALOK, LIPID, [id number], CMP, CBC, THYROID SC #### [facility] [address] Creatinine [Mass/Vol] 0.74 mg/dL Normal 0.60-1.20 [facility] Comment on above: Order Comment: Reaso n for Exam Bipolar disorder Reason for Exam Restless leg syndrome Reason for Exam Tobacco use;Bipolar disorder Reason for Exam Vitamin B 12 deficiency Performed By: #### F E and TIBC, ALOK, LIPID, [id number], CMP, CBC, THYROID SC #### [address] GFR/1.73 sq M.predicted MDRD (S/P/Bld) [Vol rate/Area] mL/min/{1.73_m2} Normal [facility] Comment on above: Order Comment: Reaso n for Exam Bipolar disorder Reason for Exam Restless leg syndrome Reason for Exam Tobacco use;Bipolar disorder Reason for Exam Vitamin B 12 deficiency Performed By: #### F E and TIBC, ALOK, LIPID, [id number], CMP, CBC, THYROID SC #### [address] Globulin (S) [Mass/Vol] 2.1 g/dL Normal [facility] Comment on above: Order Comment: Reaso n for Exam Bipolar disorder Reason for Exam Restless leg syndrome Reason for Exam Tobacco use;Bipolar disorder Reason for Exam Vitamin B 12 deficiency Performed By: #### F E and TIBC, ALOK, LIPID, [id number], CMP, CBC, THYROID SC #### [address] Glucose [Mass/Vol] 94 mg/dL Normal 70-100 [facility] Comment on above: Order Comment: Reaso n for Exam Bipolar disorder Reason for Exam Restless leg syndrome Reason for Exam Tobacco use;Bipolar disorder Reason for Exam Vitamin B 12 deficiency Result Comment: [facility] Glucose Reference Range is dependent on time and content of last meal. Glucose of more than 200 mg/dL in a nonstressed, ambulatory subject supports the diagnosis of Diabetes Mellitus. ADA recommended reference range Performed By: #### F E and TIBC, ALOK, LIPID, [id number], CMP, CBC, THYROID SC #### [facility] [address] [place] [id number] [facility] Potassium [Moles/Vol] 4.6 mmol/L Normal 3.5-5.1 [facility] Comment on above: Order Comment: Reaso n for Exam Bipolar disorder Reason for Exam Restless leg syndrome Reason for Exam Tobacco use;Bipolar disorder Reason for Exam Vitamin B 12 deficiency Performed By: #### F E and TIBC, ALOK, LIPID, [id number], CMP, CBC, THYROID SC #### [facility] [address] Protein [Mass/Vol] 6.4 g/dL Normal 6.4-8.9 [facility] Comment on above: Order Comment: Reaso n for Exam Bipolar disorder Reason for Exam Restless leg syndrome Reason for Exam Tobacco use;Bipolar disorder Reason for Exam Vitamin B 12 deficiency Performed By: #### F E and TIBC, ALOK, LIPID, [id number], CMP, CBC, THYROID SC #### [facility] [address] [place] [id number] [facility] Sodium [Moles/Vol] 139 mmol/L Normal 136-145 [facility] Comment on above: Order Comment: Reaso n for Exam Bipolar disorder Reason for Exam Restless leg syndrome Reason for Exam Tobacco use;Bipolar disorder Reason for Exam Vitamin B 12 deficiency Performed By: #### F E and TIBC, ALOK, LIPID, [id number], CMP, CBC, THYROID SC #### [facility] [address] [place] [id number] [facility] Urea nitrogen [Mass/Vol] 7 mg/dL Normal 7-25 [facility] Comment on above: Order Comment: Reaso n for Exam Bipolar disorder Reason for Exam Restless leg syndrome Reason for Exam Tobacco use;Bipolar disorder Reason for Exam Vitamin B 12 deficiency Performed By: #### F E and TIBC, ALOK, LIPID, [id number], CMP, CBC, THYROID SC #### [facility] [address] [place] [id number] [facility] Creatinine [Mass/volume] in Serum or PlasmaOrdered By: Rufina Ruiz on 03-19-2023 Creatinine [Mass/Vol] 0.74 mg/dL 0.60-1.20 [facility] Eosinophils Auto (Bld) [#/Vo l]Ordered By: Rufina Ruiz on 03-19-2023 Eosinophils (Bld) [#/Vol] 0.1 10*3/uL 0.0-0.45 [facility] Eosinophils/100 WBC Auto (Bl d)Ordered By: Rufina Ruiz on 03-19-2023 Eosinophils/100 WBC (Bld) 1.5 % . [facility] Erythrocyte distribution wid th Auto (RBC) [Ratio]Ordered By: Rufina Ruiz on 03-19-2023 Erythrocyte distribution width (RBC) [Ratio] 13.7 % 11.9-15.3 [facility] Ferritinon 03-19-2023 Ferritin [Mass/Vol] 58.3 ng/mL Normal 11.0-306.8 [facility] Comment on above: Order Comment: Reaso n for Exam Bipolar disorder Reason for Exam Restless leg syndrome Reason for Exam Tobacco use;Bipolar disorder Reason for Exam Vitamin B 12 deficiency Performed By: #### F E and TIBC, ALOK, LIPID, [id number], CMP, CBC, THYROID SC #### [facility] [address] Ferritin [Mass/volume] in Se rum or PlasmaOrdered By: Rufina Ruiz on 03-19-2023 Ferritin [Mass/Vol] 58.3 ng/mL 11.0-306.8 [facility] Folate [Mass/volume] in Seru m or PlasmaOrdered By: Rufina Ruiz on 03-19-2023 Folate [Mass/Vol] 5.7 ng/mL >5.9 [facility] Comment on above: Folate reference ran ge: >5.9 ng/mlThe WHO technical consultation on folate and vitamin [id number] has determined that folate concentrations lessthan 4 ng/ml are considered deficient. Globulin Calc (S) [Mass/Vol] Ordered By: Rufina Ruiz on 03-19-2023 Globulin (S) [Mass/Vol] 2.1 g/dL [facility] Glucose [Mass/volume] in Ser um or PlasmaOrdered By: Rufina Ruiz on 03-19-2023 Glucose [Mass/Vol] 94 mg/dL 70-100 [facility] Comment on above: ADA recommended refe rence rangeRandom Glucose Reference Range is dependent on time and content of last meal. Glucose of more than 200 mg/dL in a nonstressed, ambulatory subject supports the diagnosis of Diabetes Mellitus. Hematocrit Auto (Bld) [Volum e fraction]Ordered By: Rufina Ruiz on 03-19-2023 Hematocrit (Bld) [Volume fraction] 39.9 % 34.0-46.4 [facility] Hemoglobin [Mass/volume] in BloodOrdered By: Rufina Ruiz on 03-19-2023 Hemoglobin (Bld) [Mass/Vol] 13.3 g/dL 11.8-15.4 [facility] Iron [Mass/volume] in Serum or PlasmaOrdered By: Rufina Ruiz on 03-19-2023 Iron [Mass/Vol] 68 ug/dL 50-212 [facility] Iron and TIBC Profileon % Iron Saturation 22.3 % Normal 20-50 [facility] Comment on above: Order Comment: Reaso n for Exam Bipolar disorder Reason for Exam Restless leg syndrome Reason for Exam Tobacco use;Bipolar disorder Reason for Exam Vitamin B 12 deficiency Performed By: #### F E and TIBC, ALOK, LIPID, [id number], CMP, CBC, THYROID SC #### [facility] [address] [id number] [facility] Iron [Mass/Vol] 68 ug/dL Normal 50-212 [facility] Comment on above: Order Comment: Reaso n for Exam Bipolar disorder Reason for Exam Restless leg syndrome Reason for Exam Tobacco use;Bipolar disorder Reason for Exam Vitamin B 12 deficiency Performed By: #### F E and TIBC, ALOK, LIPID, [id number], CMP, CBC, THYROID SC #### [facility] [address] [id number] [facility] Total Iron Binding Capacity 305 ug/dL Normal 255-450 [facility] Comment on above: Order Comment: Reaso n for Exam Bipolar disorder Reason for Exam Restless leg syndrome Reason for Exam Tobacco use;Bipolar disorder Reason for Exam Vitamin B 12 deficiency Performed By: #### F E and TIBC, ALOK, LIPID, [id number], CMP, CBC, THYROID SC #### [facility] [address] [place] [address] [place] Transferrin [Mass/Vol] 218 mg/dL Normal 203-362 [facility] Comment on above: Order Comment: Reaso n for Exam Bipolar disorder Reason for Exam Restless leg syndrome Reason for Exam Tobacco use;Bipolar disorder Reason for Exam Vitamin B 12 deficiency Performed By: #### F E and TIBC, ALOK, LIPID, [id number], CMP, CBC, THYROID SC #### [facility] [address] [place] [address] [facility] Iron binding capacity [Mass/ volume] in Serum or PlasmaOrdered By: Rufina Ruiz on 03-19-2023 Iron binding capacity [Mass/Vol] 305 ug/dL 255-450 [facility] Iron saturation [Mass Fracti on] in Serum or PlasmaOrdered By: Rufina Ruiz on 03-19-2023 Iron saturation [Mass fraction] 22.3 % 20-50 [facility] Leukocytes [#/volume] correc zakia for nucleated erythrocytes in Blood by Automated counOrdered By: Rufina Ruiz on 03-19-2023 WBC corrected for nucl RBC Auto (Bld) [#/Vol] 9.6 10*3/uL 3.8-11.6 [facility] Lipid Panelon 03-19-2023 Cholesterol [Mass/Vol] 164 mg/dL Normal 140-200 [facility] Comment on above: Order Comment: Reaso n for Exam Bipolar disorder Reason for Exam Restless leg syndrome Reason for Exam Tobacco use;Bipolar disorder Reason for Exam Vitamin B 12 deficiency Result Comment: Chol less than 200 mg/dl low risk Chol 201-239 mg/dl borderline risk Chol 240 mg/dl and greater high risk Performed By: #### F E and TIBC, ALOK, LIPID, [id number], CMP, CBC, THYROID SC #### [facility] [address] [place] [address] [facility] Cholesterol in HDL [Mass/Vol] 60 mg/dL Normal 23-92 [facility] Comment on above: Order Comment: Reaso n for Exam Bipolar disorder Reason for Exam Restless leg syndrome Reason for Exam Tobacco use;Bipolar disorder Reason for Exam Vitamin B 12 deficiency Result Comment: HDL CHOL ATP-III CLASSIFICATION Cardiovascular Risk HDL > or equal to 60 mg/dL LOW HDL < 40 mg/dL HIGH Performed By: #### F E and TIBC, ALOK, LIPID, [id number], CMP, CBC, THYROID SC #### [facility] [address] Cholesterol.total/Choles terol in HDL [Mass ratio] 2.7 {ratio} Normal <5.0 [facility] Comment on above: Order Comment: Reaso n for Exam Bipolar disorder Reason for Exam Restless leg syndrome Reason for Exam Tobacco use;Bipolar disorder Reason for Exam Vitamin B 12 deficiency Performed By: #### F E and TIBC, ALOK, LIPID, [id number], CMP, CBC, THYROID SC #### [facility] [address] LDL Cholesterol,Calculated 84 mg/dL Normal 0-100 [facility] Comment on above: Order Comment: [...] 189 mg/dL Very high Performed By: #### F E and TIBC, ALOK, LIPID, [id number], CMP, CBC, THYROID SC #### [facility] [address] [id number] [facility] Triglyceride w/Reflex 99 mg/dL Normal 0-149 [facility] Comment on above: Order Comment: Reaso [...] Prevention (CDC) test method. Performed By: #### F E and TIBC, ALOK, LIPID, [id number], CMP, CBC, THYROID SC #### [facility] [address] VLDL CHOLESTEROL 19 mg/dL Normal [facility] Comment on above: Order Comment: Reaso n for Exam Bipolar disorder Reason for Exam Restless leg syndrome Reason for Exam Tobacco use;Bipolar disorder Reason for Exam Vitamin B 12 deficiency Performed By: #### F E and TIBC, ALOK, LIPID, [id number], CMP, CBC, THYROID SC #### [facility] [address] Lymphocytes Auto (Bld) [#/Vo l]Ordered By: Rufina Ruiz on 03-19-2023 Lymphocytes (Bld) [#/Vol] 2.4 10*3/uL 1.00-4.8 [facility] Lymphocytes/100 WBC Auto (Bl d)Ordered By: Rufina Ruiz on 03-19-2023 Lymphocytes/100 WBC (Bld) 25.6 % . [facility] MCH Auto (RBC) [Entitic mass ]Ordered By: Rufina Ruiz on 03-19-2023 MCH (RBC) [Entitic mass] 30.3 pg 24.7-34.3 [facility] MCHC Auto (RBC) [Mass/Vol]Or dered By: Rufina Ruiz on 03-19-2023 MCHC (RBC) [Mass/Vol] 33.3 g/dL 32.0-35.0 [facility] MCV Auto (RBC) [Entitic vol] Ordered By: Rufina Ruiz on 03-19-2023 MCV (RBC) [Entitic vol] 91.1 fL 80-[address] [facility] Monocytes Auto (Bld) [#/Vol] Ordered By: Rufina Ruiz on 03-19-2023 Monocytes (Bld) [#/Vol] 0.7 10*3/uL 0.0-0.8 [facility] Monocytes/100 WBC Auto (Bld) Ordered By: Rufina Ruiz on 03-19-2023 Monocytes/100 WBC (Bld) 7.1 % . [facility] Neutrophils Auto (Bld) [#/Vo l]Ordered By: Rufina Ruiz on 03-19-2023 Neutrophils (Bld) [#/Vol] 6.2 10*3/uL 1.8-7.7 [facility] Neutrophils/100 WBC Auto (Bl d)Ordered By: Rufina Ruiz on 03-19-2023 Neutrophils/100 WBC (Bld) 65.4 % . [facility] No Panel InformationOrdered By: Rufina Ruiz on 03-19-2023 Estimated GFR (CKD-EPI) > 60.0 mL/Min [facility] Creatinine Clearance (Chem N/A [facility] Nucleated erythrocytes [Pres ence] in Blood by Automated countOrdered By: Rufina Ruiz on 03-19-2023 Nucleated RBC Auto Ql (Bld) 0.2 /100{WBC} 0-0.5 [facility] Platelet mean volume Auto (B ld) [Entitic vol]Ordered By: Rufina Ruiz on 03-19-2023 Platelet mean volume (Bld) [Entitic vol] 10.4 fL 6.3-10.7 [facility] Platelets Auto (Bld) [#/Vol] Ordered By: Rufina uRiz on 03-19-2023 Platelets (Bld) [#/Vol] 179 10*3/uL 150-450 [facility] Potassium [Moles/volume] in Serum or PlasmaOrdered By: Rufina Ruiz on 03-19-2023 Potassium [Moles/Vol] 4.6 mmol/L 3.5-5.1 [facility] Protein [Mass/volume] in Ser um or PlasmaOrdered By: Rufina Ruiz on 03-19-2023 Protein [Mass/Vol] 6.4 g/dL 6.4-8.9 [facility] RBC Auto (Bld) [#/Vol]Ordere d By: Rufina Ruiz on 03-19-2023 RBC (Bld) [#/Vol] 4.38 10*6/uL 3.60-5.00 [facility] Serum or plasma albumin/glob ulin mass ratioOrdered By: Rufina Ruiz on 03-19-2023 Albumin/Globulin [Mass ratio] 2.0 {ratio} [facility] Serum or plasma anion gap de terminationOrdered By: Rufina Ruiz on 03-19-2023 Anion gap [Moles/Vol] 6.2 mmol/L 6.0-15.0 [facility] Serum or plasma high density lipoprotein (HDL) cholesterol measurementOrdered By: Rufina Ruiz on 03-19-2023 Cholesterol in HDL [Mass/Vol] 60 mg/dL 23-92 [facility] Comment on above: HDL CHOL ATP-III CLA SSIFICATION Cardiovascular RiskHDL > or equal to 60 mg/dL LOWHDL < 40 mg/dL HIGH Serum or plasma total choles terol/high density lipoprotein (HDL) cholesterol mass ratOrdered By: Rufina Ruiz on 03-19-2023 Cholesterol.total/Choles terol in HDL [Mass ratio] 2.7 {ratio} <5.0 [facility] Sodium [Moles/volume] in Ser um or PlasmaOrdered By: Rufina Ruiz on 03-19-2023 Sodium [Moles/Vol] 139 mmol/L 136-145 [facility] THYROID SCREENon 03-19-2023 Free T4 [Mass/Vol] 0.70 ng/dL Normal 0.61-1.12 [facility] Comment on above: Order Comment: Reaso n for Exam Bipolar disorder Reason for Exam Restless leg syndrome Reason for Exam Tobacco use;Bipolar disorder Reason for Exam Vitamin B 12 deficiency Performed By: #### F E and TIBC, ALOK, LIPID, [id number], CMP, CBC, THYROID SC #### [facility] [address] [place] [address] TSH Qn 1.95 m[IU]/L Normal 0.45-5.33 [facility] Comment on above: Order Comment: Reaso n for Exam Bipolar disorder Reason for Exam Restless leg syndrome Reason for Exam Tobacco use;Bipolar disorder Reason for Exam Vitamin B 12 deficiency Result Comment: PERF ORMED BY: [place] [address] PATHOLOGIST [employer] REPRESENTATIVE MARINE WARD M.D. Performed By: #### F E and TIBC, ALOK, LIPID, [id number], CMP, CBC, THYROID SC #### [facility] [address] [id number] [facility] Thyrotropin [Units/volume] i n Serum or PlasmaOrdered By: Rufina Ruiz on 03-19-2023 TSH Qn 1.95 m[IU]/L 0.45-5.33 [facility] Thyroxine (T4) free [Mass/vo lume] in Serum or PlasmaOrdered By: Rufina Ruiz on 03-19-2023 Free T4 [Mass/Vol] 0.70 ng/dL 0.61-1.12 [facility] Transferrin [Mass/volume] in Serum or PlasmaOrdered By: Rufina Ruiz on 03-19-2023 Transferrin [Mass/Vol] 218 mg/dL 203-362 [facility] Triglyceride [Mass/volume] i n Serum or PlasmaOrdered By: Rufina Ruiz on 03-19-2023 Triglyceride [Mass/Vol] 99 mg/dL 0-149 [facility] Comment on above: TRIG ATP III CLASSIF ICATIONTRIG less than 150 mg/dL NormalTRIG 150-199 mg/dL Borderline highTRIG 200-500 mg/dL High TRIG greater than 500 mg/dL Very highStandard traceable to the Center for Disease Conrtrol and Prevention (CDC) test method. Urea nitrogen [Mass/volume] in Serum or PlasmaOrdered By: Rufina Ruiz on 03-19-2023 Urea nitrogen [Mass/Vol] 7 mg/dL 7-25 [facility] Vit. B12/Folate Profileon Cobalamin (Vitamin B12) [Mass/Vol] 641 pg/mL Normal 180-914 [facility] Comment on above: Order Comment: Reaso n for Exam Bipolar disorder Reason for Exam Restless leg syndrome Reason for Exam Tobacco use;Bipolar disorder Reason for Exam Vitamin B 12 deficiency Performed By: #### F E and TIBC, ALOK, LIPID, [id number], CMP, CBC, THYROID SC #### [facility] [address] [place] [address] [facility] Folate 5.7 ng/mL Low >5.9 [facility] Comment on above: Order Comment: [...] ng/ml are considered deficient. Performed By: #### F E and TIBC, ALOK, LIPID, [id number], CMP, CBC, THYROID SC #### [facility] [address] [place] [address] Vitamin B12 ser/plasOrdered By: Rufina Ruiz on 03-19-2023 Cobalamin (Vitamin B12) [Mass/Vol] 641 pg/mL 180-914 [facility] WBC Auto (Bld) [#/Vol]Ordere d By: Rufina Ruiz on 03-19-2023 WBC (Bld) [#/Vol] 9.6 10*3/uL 3.8-11.6 [facility] Vitamin B12on 11-16-2022 Cobalamin (Vitamin B12) [Mass/Vol] 363 pg/mL Normal 180-914 [facility] Comment on above: Order Comment: Reaso n for Exam B12 deficiency Result Comment: PERF ORMED BY: [place] [address] PATHOLOGIST [employer] REPRESENTATIVE MARINE WARD M.D. Performed By: #### B 12 #### [address] Vitamin B12 ser/plasOrdered By: Rufina Ruiz on 11-16-2022 Cobalamin (Vitamin B12) [Mass/Vol] 363 pg/mL 180-914 [facility] Lab Reportson 11-04-2022 Lab Reports [id number]#1 .00CD:127 Normal [facility] Lab Reports [id number]#1 .00CD:127 Normal [facility] Lab Reports [id number]#1 .00CD:127 Normal [facility] Lab Reports [id number]#1 .00CD:127 Normal [facility] Lab Reports [id number]#1 .00CD:127 Normal [facility] RAD - CT Reporton 11-04-2022 RAD - CT Report [id number]#1 .00CD:127 Normal [facility] Physician Referralon 023 Physician Referral [id number]#1 .00CD:127 Normal [facility] Patient Educationon 10-06-19 Patient Education Obstetrics and [...] this condition includes: ? Antibiotic medicine. ? Tvcz-jfh-phixzlz medicines to treat discomfort. ? Drinking enough [...] these instructions at home: Medicines ? Take rfld-wdp-pdcaudv and prescription medicines only as told by [...] This in (more content not included)... Normal [facility] Vitamin B12 ser/plasOrdered By: Rufina Ruiz on 09-21-2022 Cobalamin (Vitamin B12) [Mass/Vol] 548 pg/mL 180-914 [facility] Urine culture routineOrdered By: Rufina Ruiz on 08-31-2022 Bacteria identified Cx Nom (U) Escherichia coli [facility] Basophils Auto (Bld) [#/Vol] Ordered By: Salvador Maier on 07-22-2022 Basophils (Bld) [#/Vol] 0.1 10*3/uL 0.0-0.2 [facility] Basophils/100 WBC Auto (Bld) Ordered By: Salvador Maier on 07-22-2022 Basophils/100 WBC (Bld) 1.0 % . [facility] Bilirubin Test strip Ql (U)O rdered By: Salvador Maier on 07-22-2022 Bilirubin Ql (U) Negative Negative [facility] Body fluid albumin measureme nt (mass/volume)Ordered By: Salvador Maier on 07-22-2022 Albumin (Body fld) [Mass/Vol] 3.9 g/dL 3.2-5.5 [facility] Color Auto (U)Ordered By: Nguyễn Maier on 07-22-2022 Color (U) Yellow Yellow [facility] Creatinine and Glomerular fi ltration rate.predicted panel (S/P/Bld)Ordered By: Salvador Maier on 07-22-2022 Creatinine [Mass/Vol] 0.68 mg/dL 0.44-1.03 [facility] Eosinophils Auto (Bld) [#/Vo l]Ordered By: Salvador Maier on 07-22-2022 Eosinophils (Bld) [#/Vol] 0.4 10*3/uL 0.0-0.45 [facility] Eosinophils/100 WBC Auto (Bl d)Ordered By: Salvador Maier on 07-22-2022 Eosinophils/100 WBC (Bld) 4.1 % . [facility] Erythrocyte distribution wid th Auto (RBC) [Ratio]Ordered By: Salvador Maier on 07-22-2022 Erythrocyte distribution width (RBC) [Ratio] 14.7 % 11.9-15.3 [facility] Estimated glomerular filtrat ion rate (GFR) non- AmericanOrdered By: Salvador Maier on 07-22-2022 GFR/1.73 sq M.predicted among non-blacks MDRD (S/P/Bld) [Vol rate/Area] > 60 mL/Min [facility] Globulin Calc (S) [Mass/Vol] Ordered By: Salvador Maier on 07-22-2022 Globulin (S) [Mass/Vol] 2.5 g/dL [facility] HCG ( test) IA.rapi d Ql (U)Ordered By: Salvador Maier on 07-22-2022 HCG ( test) Ql (U) Negative [facility] Hematocrit Auto (Bld) [Volum e fraction]Ordered By: Salvador Maier on 07-22-2022 Hematocrit (Bld) [Volume fraction] 40.9 % 34.0-46.4 [facility] Hemoglobin [Mass/volume] in BloodOrdered By: Salvador Maier on 07-22-2022 Hemoglobin (Bld) [Mass/Vol] 13.3 g/dL 11.8-15.4 [facility] Ketones Auto test strip (U) [Mass/Vol]Ordered By: Salvador Maier on 07-22-2022 Ketones (U) [Mass/Vol] Negative Negative Fi [facility] Laboratory - Chemistry and C hemistry - challengeOrdered By: Salvador Maier on 07-22-2022 Lipase [Catalytic activity/Vol] 70.0 U/L 22-51 [facility] Leukocytes [#/volume] correc zakia for nucleated erythrocytes in Blood by Automated counOrdered By: Salvador Maier on 07-22-2022 WBC corrected for nucl RBC Auto (Bld) [#/Vol] 8.8 10*3/uL 3.8-11.6 [facility] Lymphocytes Auto (Bld) [#/Vo l]Ordered By: Salvador Maier on 07-22-2022 Lymphocytes (Bld) [#/Vol] 3.1 10*3/uL 1.00-4.8 [facility] Lymphocytes/100 WBC Auto (Bl d)Ordered By: Salvador Maier on 07-22-2022 Lymphocytes/100 WBC (Bld) 35.0 % . [facility] MCH Auto (RBC) [Entitic mass ]Ordered By: Salvador Maier on 07-22-2022 MCH (RBC) [Entitic mass] 30.2 pg 24.7-34.3 [facility] MCHC Auto (RBC) [Mass/Vol]Or dered By: Salvador Maier on 07-22-2022 MCHC (RBC) [Mass/Vol] 32.6 g/dL 32.0-35.0 [facility] MCV Auto (RBC) [Entitic vol] Ordered By: Salvador Maier on 07-22-2022 MCV (RBC) [Entitic vol] 92.6 fL 80-[address] [facility] Monocyte distribution width [Entitic volume] in Blood by AutomatedOrdered By: Salvador Maier on 07-22-2022 Monocyte distribution width Auto (Bld) [Entitic vol] 20.62 % 0.00-20.00 [facility] Comment on above: For adults in ED, MD W > 20.0 may be associated with a higher risk of sepsis during the first 12 hrs of hospital admission Monocytes Auto (Bld) [#/Vol] Ordered By: Salvador Maier on 07-22-2022 Monocytes (Bld) [#/Vol] 0.6 10*3/uL 0.0-0.8 [facility] Monocytes/100 WBC Auto (Bld) Ordered By: Salvador Maier on 07-22-2022 Monocytes/100 WBC (Bld) 7.1 % . [facility] Neutrophils Auto (Bld) [#/Vo l]Ordered By: Salvador Maier on 07-22-2022 Neutrophils (Bld) [#/Vol] 4.6 10*3/uL 1.8-7.7 [facility] Neutrophils/100 WBC Auto (Bl d)Ordered By: Salvador Maier on 07-22-2022 Neutrophils/100 WBC (Bld) 52.8 % . [facility] Nitrite Test strip Ql (U)Ord ered By: Salvador Maier on 07-22-2022 Nitrite Ql (U) Negative Negative [facility] No Panel InformationOrdered By: Salvador Maier on 07-22-2022 Estimated GFR () > 60 mL/Min [facility] Comment on above: GFR estimated refere nce range: According to KDOQI guidelines, <60 ml/min/1.73m2 is sufficient to diagnose a patient with chronic kidney disease. Pharmacy Creatinine Clearance (Chem 90.47 [facility] Nucleated erythrocytes [Pres ence] in Blood by Automated countOrdered By: Salvador Maier on 07-22-2022 Nucleated RBC Auto Ql (Bld) 0.2 /100{WBC} 0-0.5 [facility] Platelet mean volume Auto (B ld) [Entitic vol]Ordered By: Salvador Maier on 07-22-2022 Platelet mean volume (Bld) [Entitic vol] 9.1 fL 6.3-10.7 [facility] Platelets Auto (Bld) [#/Vol] Ordered By: Salvador Maier on 07-22-2022 Platelets (Bld) [#/Vol] 202 10*3/uL 150-450 [facility] Protein Auto test strip (U) [Mass/Vol]Ordered By: Salvador Maier on 07-22-2022 Protein (U) [Mass/Vol] Negative Negative [facility] Protein [Mass/volume] in Ser um or PlasmaOrdered By: Salvador Maier on 07-22-2022 Protein [Mass/Vol] 6.4 g/dL 6.1-7.9 [facility] RBC Auto (Bld) [#/Vol]Ordere d By: Salvador Maier on 07-22-2022 RBC (Bld) [#/Vol] 4.42 10*6/uL 3.60-5.00 [facility] Serum or plasma alanine mckeon otransferase measurement without P-5'-P (enzymatic activiOrdered By: Salvador Maier on 07-22-2022 ALT No additional P-5'-P [Catalytic activity/Vol] 12 U/L 10-60 [facility] Serum or plasma albumin/glob ulin mass ratioOrdered By: Salvador Maier on 07-22-2022 Albumin/Globulin [Mass ratio] 1.6 {ratio} [facility] Serum or plasma alkaline kamron sphatase measurement (enzymatic activity/volume)Ordered By: Salvador Maier on 07-22-2022 ALP [Catalytic activity/Vol] 109 U/L 32-92 [facility] Serum or plasma anion gap de terminationOrdered By: Salvador Maier on 07-22-2022 Anion gap [Moles/Vol] 13.2 mmol/L 6.0-15.0 [facility] Serum or plasma aspartate am inotransferase measurement (enzymatic activity/volume)Ordered By: Salvador Maier on 07-22-2022 AST [Catalytic activity/Vol] 16 U/L 10-42 [facility] Serum or plasma calcium kunal urement (mass/volume)Ordered By: Salvador Maier on 07-22-2022 Calcium [Mass/Vol] 8.8 mg/dL 8.2-10.2 [facility] Serum or plasma chloride chacorat surement (moles/volume)Ordered By: Salvador Maier on 07-22-2022 Chloride [Moles/Vol] 103 mmol/L 95-114 [facility] Serum or plasma glucose kunal urement (mass/volume)Ordered By: Salvador Maier on 07-22-2022 Glucose [Mass/Vol] 102 mg/dL 70-100 [facility] Comment on above: ADA recommended refe rence rangeRandom Glucose Reference Range is dependent on time and content of last meal. Glucose of more than 200 mg/dL in a nonstressed, ambulatory subject supports the diagnosis of Diabetes Mellitus. Serum or plasma potassium me asurement (moles/volume)Ordered By: Salvador Maier on 07-22-2022 Potassium [Moles/Vol] 3.2 mmol/L 3.5-5.1 [facility] Serum or plasma sodium measu rement (moles/volume)Ordered By: Salvador Maier on 07-22-2022 Sodium [Moles/Vol] 139 mmol/L 136-146 [facility] Serum or plasma total biliru bin measurement (mass/volume)Ordered By: Salvador Maier on 07-22-2022 Bilirubin [Mass/Vol] 0.3 mg/dL 0.3-1.2 [facility] Serum or plasma total carbon dioxide measurement (moles/volume)Ordered By: Salvador Maier on 07-22-2022 CO2 [Moles/Vol] 26.0 mmol/L 22.0-30.0 [facility] Serum or plasma urea nitroge n measurement (mass/volume)Ordered By: Salvador Maier on 07-22-2022 Urea nitrogen [Mass/Vol] 4 mg/dL 04-03 [facility] Specific gravity Auto test s trip (U) [Rel density]Ordered By: Salvador Maier on 07-22-2022 Specific gravity (U) [Rel density] 1.004 1.001-1.030 [facility] Urine clarity by refractomet ry automatedOrdered By: Salvador Maier on 07-22-2022 Clarity Refractometry automated (U) Clear Clear [facility] Urine glucose measurement by automated test strip (mass/volume)Ordered By: Salvador Maier on 07-22-2022 Glucose Auto test strip (U) [Mass/Vol] Normal mg/dL Normal [facility] Urine hemoglobin detection b y automated test stripOrdered By: Slavador Maier on 07-22-2022 Hemoglobin Auto test strip Ql (U) Negative Negative [facility] Urine leukocyte esterase det ection by automated test stripOrdered By: Salvador Maier on 07-22-2022 Leukocyte esterase Auto test strip Ql (U) Negative Negative [facility] Urobilinogen Auto test strip (U) [Mass/Vol]Ordered By: Salvador Maier on 07-22-2022 Urobilinogen (U) [Mass/Vol] Normal mg/dL Normal [facility] WBC Auto (Bld) [#/Vol]Ordere d By: Salvador Maier on 07-22-2022 WBC (Bld) [#/Vol] 8.8 10*3/uL 3.8-11.6 [facility] pH Auto test strip (U)Ordere d By: Salvador Maier on 07-22-2022 pH (U) 7.0 [pH] 5.0-9.0 [facility] CBC AUTO DIFFon 07-21-2022 BASO # 0.0 103/ul Normal 0.0-0.1 [facility] Comment on above: Performed By: #### C BC ####[facility] [address] [address]Dr. Ruthie Pan Basophils/100 WBC (Bld) 0.5 % Normal 0.2-2.0 [facility] Comment on above: Performed By: #### C BC ####[facility] [address] [place], [place] [address]Dr. Ruthie Pan EO # 0.5 103/ul Normal 0.0-0.7 [facility] Comment on above: Performed By: #### C BC ####[facility] [id number] [place], [place] [address]Dr. Ruthie Pan Eosinophils/100 WBC (Bld) 5.8 % Normal 0.9-7.0 [facility] Comment on above: Performed By: #### C BC ####[facility] [id number] [place], [place] [address]Dr. Ruthie Pan Erythrocyte distribution width (RBC) [Ratio] 14.0 % Normal 11.0-15.0 [facility] Comment on above: Performed By: #### C BC ####[facility] [address] [place], [place] [address]Dr. Ruthie Pan Hematocrit (Bld) [Volume fraction] 38.9 % Normal 36.0-48.0 [facility] Comment on above: Performed By: #### C BC ####[facility] [facility] [id number] [place], [place] [address]Dr. Ruthie Pan Hemoglobin (Bld) [Mass/Vol] 13.0 g/dL Normal 12.0-16.0 [facility] Comment on above: Performed By: #### C BC ####[facility] [address] [place], [place] [address]Dr. Ruthie Pan IG # 0.02 10e3/ul Normal 0.00-0.03 [facility] Comment on above: Performed By: #### C BC ####[facility] [address] [place] [address]Dr. Ruthie Pan IG % 0.3 % Normal 0.0-0.5 [facility] Comment on above: Performed By: #### C BC ####[facility] [address] [place] [address]Dr. Ruthie Pan LYMPH # 2.8 103/ul Normal 1.2-3.8 [facility] Comment on above: Performed By: #### C BC ####[facility] [address] [place] [address]Dr. Ruthie Maxim Lymphocytes/100 WBC (Bld) 36.0 % Normal 20.5-60.0 [facility] Comment on above: Performed By: #### C BC ####[facility] [address] [place], [place] [address]Dr. Ruthie Maxim MANUAL DIFF REQ NO Normal [facility] Comment on above: Performed By: #### C BC ####[facility] [address] [place] [address]Dr. Ruthie Pan MCH (RBC) [Entitic mass] 30.6 pg Normal 26.7-34.0 [facility] Comment on above: Performed By: #### C BC ####[facility] [address] [place], [place] [address]Dr. Ruthie Maxim MCHC (RBC) [Mass/Vol] 33.4 g/dL Normal 29.9-35.2 [facility] Comment on above: Performed By: #### C BC ####[facility] [address] [place] [address]Dr. Ruthie Maxim MCV (RBC) [Entitic vol] 91.5 fL Normal 81.0-99.0 [facility] Comment on above: Performed By: #### C BC ####[facility] [address] [place], [place] [address]Dr. Ruthie Maxim MONO # 0.6 103/ul Normal 0.3-0.8 [facility] Comment on above: Performed By: #### C BC ####[facility] [address] [place] [address]Dr. Ruthie Pan Monocytes/100 WBC (Bld) 7.9 % Normal 1.7-12.0 [facility] Comment on above: Performed By: #### C BC ####[facility] [address] [place] [address]Dr. Ruthie Pan NEUT # 3.8 103/ul Normal 1.4-6.5 [facility] Comment on above: Performed By: #### C BC ####[facility] [address] [place] [address]Dr. Ruthie Pan Neutrophils/100 WBC (Bld) 49.5 % Normal 43.0-75.0 [facility] Comment on above: Performed By: #### C BC ####[facility] [address] [place], [place] [address]Dr. Ruthie Pan Platelet mean volume (Bld) [Entitic vol] 10.6 fL Normal 9.5-13.5 [facility] Comment on above: Performed By: #### C BC ####[facility] [address] [place], [place] [address]Dr. Ruthie Pan PLT 201 103/ul Normal 150-450 [facility] Comment on above: Performed By: #### C BC ####[facility] [address] [place], [place] [address]Dr. Ruthie Pan RBC 4.25 106/ul Normal 4.20-5.40 [facility] Comment on above: Performed By: #### C BC ####[facility] [address] [place], [place] [address]Dr. Ruthie Pan WBC 7.8 103/ul Normal 4.0-11.0 [facility] Comment on above: Performed By: #### C BC ####[facility] [address] [place] [address]Dr. Ruthie Pan ER URINE PROFILEon 3 Bilirubin Ql (U) Negative Normal NEGATIVE [facility] Comment on above: Performed By: #### U MICRO, ERUR #### [facility] [address] [address] [address] Ruthie Pan Clarity (U) CLEAR Normal CLEAR [facility] Comment on above: Performed By: #### U MICRO, ERUR #### [facility] [address] [address] [address] Ruthie Pan Color (U) LT. YELLOW Normal YELLOW [facility] Comment on above: Performed By: #### U MICRO, ERUR #### [facility] [address] [address] [address] Ruthie Pan ERUAHD A micrscopic examination will be performed if indicated. Normal [facility] Comment on above: Performed By: #### U MICRO, ERUR #### [facility] [address] [address] [address] Ruthie Pan Glucose Ql (U) Negative Normal NEGATIVE [facility] Comment on above: Performed By: #### U MICRO, ERUR #### [facility] [address] [address] [address] Ruthie Pan Hemoglobin Ql (U) TRACE-LYSED Abnormal NEGATIVE [facility] Comment on above: Performed By: #### U MICRO, ERUR #### [facility] [address] [address] [address] Ruthie Pan Ketones Ql (U) Negative Normal NEGATIVE [facility] Comment on above: Performed By: #### U MICRO, ERUR #### [facility] [address] [address] [address] Ruthie Pan LEUKOCYTES Negative Normal NEGATIVE [facility] Comment on above: Performed By: #### U MICRO, ERUR #### [facility] [address] [address] [address] Ruthie Pan Nitrite Ql (U) Negative Normal NEGATIVE [facility] Comment on above: Performed By: #### U MICRO, ERUR #### [facility] [address] [address] [address] Ruthie Pan pH (U) 6.5 [pH] Normal 5-9 [facility] Comment on above: Performed By: #### U MICRO, ERUR #### [facility] [address] [address] [address] Ruthie Pan SPEC GRAVITY <=1.005 Abnormal 1.005-<=1.02 5 [facility] Comment on above: Performed By: #### U MICRO, ERUR #### [facility] [address] [address] [address] Ruthie Pan UA PROTEIN Negative Normal NEGATIVE/ TRACE [facility] Comment on above: Performed By: #### U MICRO, ERUR #### [facility] [address] [address] [address] Ruthie Pan UR MICRO IND INDICATED Normal [facility] Comment on above: Performed By: #### U MICRO, ERUR #### [facility] [address] [address] [address] Ruthie Pan Urobilinogen Qn (U) 0.2 {Harjeet'U}/dL Normal 0.2 - 1. 0 [facility] Comment on above: Performed By: #### U MICRO, ERUR #### [facility] [address] [address] [address] Ruthie aPn LACTATE/LACTIC ACIDon 2022 Lactate [Moles/Vol] 0.7 mmol/L Normal 0.4-1.9 [facility] Comment on above: Performed By: #### L ACT ####[facility] [address] [place] [address]Dr. Ruthie Pan LIPASEon 07-21-2022 Lipase [Catalytic activity/Vol] 97.0 U/L Normal 73.0-393.0 [facility] Comment on above: Performed By: #### L IPA, CMP ####[facility] [address] [place] [address]Dr. Ruthie Pan PROF 14(COMP METB)on 023 Albumin [Mass/Vol] 3.6 g/dL Normal 3.4-5.0 [facility] Comment on above: Performed By: #### L IPA, CMP ####[facility] [address] [place] [id number]. Ruthie Pan Albumin/Globulin [Mass ratio] 1.3 {ratio} Normal [facility] Comment on above: Performed By: #### L IPA, CMP ####[facility] [address] [place] [id number]. Ruthie Pan ALP [Catalytic activity/Vol] 129 U/L Critically high 46-116 [facility] Comment on above: Performed By: #### L IPA, CMP ####[facility] [address] [place] [address]Dr. Ruthie Pan ALT [Catalytic activity/Vol] 13 U/L Critically low 14-59 [facility] Comment on above: Performed By: #### L IPA, CMP ####[facility] [address] [place] [address]Dr. Ruthie Pan Anion gap [Moles/Vol] 10.0 mmol/L Normal [facility] Comment on above: Performed By: #### L IPA, CMP ####[facility] [address] [place] [address]Dr. Ruthie Pan AST [Catalytic activity/Vol] 13 U/L Critically low 15-37 [facility] Comment on above: Performed By: #### L IPA, CMP ####[facility] [address] [place] [address]Dr. Ruthie Pan Bilirubin [Mass/Vol] 0.2 mg/dL Normal 0.2-1.0 [facility] Comment on above: Performed By: #### L IPA, CMP ####[facility] [address] [place] [id number]. Ruthie Pan Calcium [Mass/Vol] 8.5 mg/dL Normal 8.5-10.1 [facility] Comment on above: Performed By: #### L IPA, CMP ####[facility] [address] [place] [address]Dr. Ruthie Pan Chloride [Moles/Vol] 104 mmol/L Normal 98-107 [facility] Comment on above: Performed By: #### L IPA, CMP ####[facility] [address] [place] [id number]. Ruthie Pan CO2 [Moles/Vol] 29.6 mmol/L Normal 21.0-32.0 [facility] Comment on above: Performed By: #### L IPA, CMP ####[facility] [address] [place] [id number]. Ruthie Pan Creatinine [Mass/Vol] 0.67 mg/dL Normal 0.55-1.02 [facility] Comment on above: Performed By: #### L IPA, CMP ####[facility] [address] [place] [id number]. Ruthie Pan EGFR-AF MONGOLIAN >60 Normal >=60 [facility] Comment on above: Performed By: #### L IPA, CMP ####[facility] [address] [place] [address]Dr. Ruthie Pan EGFR-NON AF MONGOLIAN >60 Normal >=60 [facility] Comment on above: Performed By: #### L IPA, CMP ####[facility] [address] [place] [id number]. Ruthie Pan Globulin (S) [Mass/Vol] 2.8 g/dL Normal [facility] Comment on above: Performed By: #### L IPA, CMP ####[facility] [address] [place] [id number]. Ruthie Pan Glucose [Mass/Vol] 106 mg/dL Normal 74-106 [facility] Comment on above: Performed By: #### L IPA, CMP ####[facility] [address] [place] [id number]. Ruthie Pan Potassium [Moles/Vol] 3.6 mmol/L Normal 3.5-5.1 [facility] Comment on above: Performed By: #### L IPA, CMP ####[facility] [address] [place] [address]Dr. Ruthie Pan Protein [Mass/Vol] 6.4 g/dL Normal 6.4-8.2 [facility] Comment on above: Performed By: #### L IPA, CMP ####[facility] [address] [place] [id number]. Ruthie Pan Sodium [Moles/Vol] 140 mmol/L Normal 136-145 [facility] Comment on above: Performed By: #### L IPA, CMP ####[facility] [address] [place] [address]Dr. Ruthie Pan Urea nitrogen [Mass/Vol] 4.0 mg/dL Critically low 7.0-18. 0 [facility] Comment on above: Performed By: #### L IPA, CMP ####[facility] [address] [place] [address]Dr. Ruthie Pan Urea nitrogen/Creatinine [Mass ratio] 6.0 mg/mg Normal [facility] Comment on above: Performed By: #### L IPA, CMP ####[facility] [address] [place] [address]Dr. Ruthie Pan URINE MICROSCOPIC ONLYon BACTERIA NONE SEEN Normal NONE SEEN [facility] Comment on above: Performed By: #### U MICRO, ERUR #### [facility] [address] [place] [address] Dr. Ruthie Pan Bacteria identified Cx Nom (U) NOT INDICATED Normal [facility] Comment on above: Performed By: #### U MICRO, ERUR #### [facility] [address] [place] [address] Dr. Ruthie Pan CAST NONE SEEN Normal NONE SEEN [facility] Comment on above: Performed By: #### U MICRO, ERUR #### [facility] [address] [address] [address] Ruthie Pan Crystals LM Nom (Urine sed) NONE SEEN Normal NONE SEEN [facility] Comment on above: Performed By: #### U MICRO, ERUR #### [facility] [address] [address] [address] Ruthie Pan Epithelial cells LM Ql (Urine sed) FEW Abnormal NONE SEEN /RARE [facility] Comment on above: Performed By: #### U MICRO, ERUR #### [facility] [address] [address] [address] Ruthie Pan MUCOUS NONE SEEN Normal NONE SEEN [facility] Comment on above: Performed By: #### U MICRO, ERUR #### [facility] [address] [address] [address] Ruthie Pan RBC 0-2 Normal 0-2 [facility] Comment on above: Performed By: #### U MICRO, ERUR #### [facility] [address] [address] [address] Ruthie Pan WBC 0-2 Abnormal NONE SEEN [facility] Comment on above: Performed By: #### U MICRO, ERUR #### [facility] [address] [address] [address] Ruthie Pan US SINGLE QUAD RT [...] Date: 2022-07-21 20:21 Normal [facility] Albumin [Mass/volume] in Ser um or PlasmaOrdered By: Rufina Ruiz on 07-20-2022 Albumin [Mass/Vol] 3.8 g/dL 3.2-5.5 [facility] Basophils Auto (Bld) [#/Vol] Ordered By: Rufina Ruiz on 07-20-2022 Basophils (Bld) [#/Vol] 0.1 10*3/uL 0.0-0.2 [facility] Basophils/100 WBC Auto (Bld) Ordered By: Rufina Ruiz on 07-20-2022 Basophils/100 WBC (Bld) 1.2 % . [facility] Cholesterol [Mass/volume] in Serum or PlasmaOrdered By: Rufina Ruiz on 07-20-2022 Cholesterol [Mass/Vol] 183 mg/dL 140-200 [facility] Comment on above: Chol less than 200 m g/dl low riskChol 201-239 mg/dl borderline riskChol 240 mg/dl and greater high risk Cholesterol in LDL Calc [Mas s/Vol]Ordered By: Rufina Ruiz on 07-20-2022 Cholesterol in LDL [Mass/Vol] 104 mg/dL 0-100 [facility] Comment on above: LDL ATP III CLASSIFI CATIONLDL less than 100 mg/dL OptimalLDL 100-129 mg/dL Near or above optimalLDL 130-159 mg/dL Borderline highLDL 160-189 mg/dL HighLDL greater than 189 mg/dL Very high Cholesterol in VLDL Calc [Ma ss/Vol]Ordered By: Rufina Ruiz on 07-20-2022 Cholesterol in VLDL [Mass/Vol] 26 mg/dL [facility] Creatinine and Glomerular fi ltration rate.predicted panel (S/P/Bld)Ordered By: Rufina Ruiz on 07-20-2022 Creatinine [Mass/Vol] 0.64 mg/dL 0.44-1.03 [facility] Eosinophils Auto (Bld) [#/Vo l]Ordered By: Rufina Ruiz on 07-20-2022 Eosinophils (Bld) [#/Vol] 0.3 10*3/uL 0.0-0.45 [facility] Eosinophils/100 WBC Auto (Bl d)Ordered By: Rufina Ruiz on 07-20-2022 Eosinophils/100 WBC (Bld) 3.0 % . [facility] Erythrocyte distribution wid th Auto (RBC) [Ratio]Ordered By: Rufina Ruiz on 07-20-2022 Erythrocyte distribution width (RBC) [Ratio] 14.5 % 11.9-15.3 [facility] Estimated glomerular filtrat ion rate (GFR) non- AmericanOrdered By: Rufina Ruiz on 07-20-2022 GFR/1.73 sq M.predicted among non-blacks MDRD (S/P/Bld) [Vol rate/Area] > 60 mL/Min [facility] Globulin Calc (S) [Mass/Vol] Ordered By: Rufina Ruiz on 07-20-2022 Globulin (S) [Mass/Vol] 2.4 g/dL [facility] Hematocrit Auto (Bld) [Volum e fraction]Ordered By: Rufina Ruiz on 07-20-2022 Hematocrit (Bld) [Volume fraction] 40.8 % 34.0-46.4 [facility] Hemoglobin [Mass/volume] in BloodOrdered By: Rufina Ruiz on 07-20-2022 Hemoglobin (Bld) [Mass/Vol] 13.4 g/dL 11.8-15.4 [facility] Laboratory - Chemistry and C hemistry - challengeOrdered By: Rufina Ruiz on 07-20-2022 Cobalamin (Vitamin B12) [Mass/Vol] 137 pg/mL 180-914 [facility] Lipase [Catalytic activity/Vol] 53.0 U/L 22-51 [facility] Leukocytes [#/volume] correc zakia for nucleated erythrocytes in Blood by Automated counOrdered By: Rufina Ruiz on 07-20-2022 WBC corrected for nucl RBC Auto (Bld) [#/Vol] 8.5 10*3/uL 3.8-11.6 [facility] Lymphocytes Auto (Bld) [#/Vo l]Ordered By: Rufina Ruiz on 07-20-2022 Lymphocytes (Bld) [#/Vol] 3.1 10*3/uL 1.00-4.8 [facility] Lymphocytes/100 WBC Auto (Bl d)Ordered By: Rufina Ruiz on 07-20-2022 Lymphocytes/100 WBC (Bld) 36.6 % . [facility] MCH Auto (RBC) [Entitic mass ]Ordered By: Rufina Ruiz on 07-20-2022 MCH (RBC) [Entitic mass] 30.4 pg 24.7-34.3 [facility] MCHC Auto (RBC) [Mass/Vol]Or dered By: Rufina Ruiz on 07-20-2022 MCHC (RBC) [Mass/Vol] 32.8 g/dL 32.0-35.0 [facility] MCV Auto (RBC) [Entitic vol] Ordered By: Rufina Ruiz on 07-20-2022 MCV (RBC) [Entitic vol] 92.7 fL 80-[address] [facility] Monocytes Auto (Bld) [#/Vol] Ordered By: Rufina Ruiz on 07-20-2022 Monocytes (Bld) [#/Vol] 0.6 10*3/uL 0.0-0.8 [facility] Monocytes/100 WBC Auto (Bld) Ordered By: Rufina Ruiz on 07-20-2022 Monocytes/100 WBC (Bld) 7.0 % . [facility] Neutrophils Auto (Bld) [#/Vo l]Ordered By: Rufina Ruiz on 07-20-2022 Neutrophils (Bld) [#/Vol] 4.4 10*3/uL 1.8-7.7 [facility] Neutrophils/100 WBC Auto (Bl d)Ordered By: Rufina Ruiz on 07-20-2022 Neutrophils/100 WBC (Bld) 52.2 % . [facility] No Panel InformationOrdered By: Rufina Ruiz on 07-20-2022 Estimated GFR () > 60 mL/Min [facility] Comment on above: GFR estimated refere nce range: According to KDOQI guidelines, <60 ml/min/1.73m2 is sufficient to diagnose a patient with chronic kidney disease. Pharmacy Creatinine Clearance (Chem N/A [facility] Nucleated erythrocytes [Pres ence] in Blood by Automated countOrdered By: Rufina Ruiz on 07-20-2022 Nucleated RBC Auto Ql (Bld) 0.2 /100{WBC} 0-0.5 [facility] Platelet mean volume Auto (B ld) [Entitic vol]Ordered By: Rufina Ruiz on 07-20-2022 Platelet mean volume (Bld) [Entitic vol] 10.2 fL 6.3-10.7 [facility] Platelets Auto (Bld) [#/Vol] Ordered By: Rufina Ruiz on 07-20-2022 Platelets (Bld) [#/Vol] 183 10*3/uL 150-450 [facility] Protein [Mass/volume] in Ser um or PlasmaOrdered By: Rufina Ruiz on 07-20-2022 Protein [Mass/Vol] 6.2 g/dL 6.1-7.9 [facility] RBC Auto (Bld) [#/Vol]Ordere d By: Rufina Ruiz on 07-20-2022 RBC (Bld) [#/Vol] 4.40 10*6/uL 3.60-5.00 [facility] Serum or plasma alanine mckeon otransferase measurement without P-5'-P (enzymatic activiOrdered By: Rufina Ruiz on 07-20-2022 ALT No additional P-5'-P [Catalytic activity/Vol] 10 U/L 10-60 [facility] Serum or plasma albumin/glob ulin mass ratioOrdered By: Rufina Ruiz on 07-20-2022 Albumin/Globulin [Mass ratio] 1.6 {ratio} [facility] Serum or plasma alkaline kamron sphatase measurement (enzymatic activity/volume)Ordered By: Rufina Ruiz on 07-20-2022 ALP [Catalytic activity/Vol] 107 U/L 32-92 [facility] Serum or plasma amylase kunal urement (enzymatic activity/volume)Ordered By: Rufina Ruiz on 07-20-2022 Amylase [Catalytic activity/Vol] 129 U/L 28-100 [facility] Serum or plasma anion gap de terminationOrdered By: Rufina Ruiz on 07-20-2022 Anion gap [Moles/Vol] 9.5 mmol/L 6.0-15.0 [facility] Serum or plasma aspartate am inotransferase measurement (enzymatic activity/volume)Ordered By: Rufina Ruiz on 07-20-2022 AST [Catalytic activity/Vol] 13 U/L 10-42 [facility] Serum or plasma calcium kunal urement (mass/volume)Ordered By: Rufina Ruiz on 07-20-2022 Calcium [Mass/Vol] 8.7 mg/dL 8.2-10.2 [facility] Serum or plasma chloride chacorta surement (moles/volume)Ordered By: Rufina Ruiz on 07-20-2022 Chloride [Moles/Vol] 107 mmol/L 95-114 [facility] Serum or plasma glucose kunal urement (mass/volume)Ordered By: Rufina Ruiz on 07-20-2022 Glucose [Mass/Vol] 82 mg/dL 70-100 [facility] Comment on above: ADA recommended refe rence rangeRandom Glucose Reference Range is dependent on time and content of last meal. Glucose of more than 200 mg/dL in a nonstressed, ambulatory subject supports the diagnosis of Diabetes Mellitus. Serum or plasma high density lipoprotein (HDL) cholesterol measurementOrdered By: Rufina Ruiz on 07-20-2022 Cholesterol in HDL [Mass/Vol] 53 mg/dL 35-85 [facility] Comment on above: HDL CHOL ATP-III CLA SSIFICATION Cardiovascular RiskHDL > or equal to 60 mg/dL LOWHDL < 40 mg/dL HIGH Serum or plasma potassium me asurement (moles/volume)Ordered By: Rufina Ruiz on 07-20-2022 Potassium [Moles/Vol] 3.9 mmol/L 3.5-5.1 [facility] Serum or plasma sodium measu rement (moles/volume)Ordered By: Rufina Ruiz on 07-20-2022 Sodium [Moles/Vol] 138 mmol/L 136-146 [facility] Serum or plasma total biliru bin measurement (mass/volume)Ordered By: Rufina Ruiz on 07-20-2022 Bilirubin [Mass/Vol] 0.3 mg/dL 0.3-1.2 [facility] Serum or plasma total carbon dioxide measurement (moles/volume)Ordered By: Rufina Ruiz on 07-20-2022 CO2 [Moles/Vol] 25.4 mmol/L 22.0-30.0 [facility] Serum or plasma total choles terol/high density lipoprotein (HDL) cholesterol mass ratOrdered By: Rufina Ruiz on 07-20-2022 Cholesterol.total/Choles terol in HDL [Mass ratio] 3.5 {ratio} <5.0 [facility] Serum or plasma urea nitroge n measurement (mass/volume)Ordered By: Rufina Ruiz on 07-20-2022 Urea nitrogen [Mass/Vol] 5 mg/dL 9-23 [facility] TSH DL <= 0.005 mIU/L QnOrde red By: Rufina Ruiz on 07-20-2022 TSH Qn 4.78 m[IU]/L 0.45-5.33 [facility] Thyroxine (T4) free [Mass/vo lume] in Serum or PlasmaOrdered By: Rufina Ruiz on 07-20-2022 Free T4 [Mass/Vol] 0.80 ng/dL 0.61-1.12 [facility] Triglyceride [Mass/volume] i n Serum or PlasmaOrdered By: Rufina Ruiz on 07-20-2022 Triglyceride [Mass/Vol] 132 mg/dL 35-[address] [facility] Comment on above: TRIG ATP III CLASSIF ICATIONTRIG less than 150 mg/dL NormalTRIG 150-199 mg/dL Borderline highTRIG 200-500 mg/dL High TRIG greater than 500 mg/dL Very highStandard traceable to the Center for Disease Conrtrol and Prevention (CDC) test method. Urine culture routineOrdered By: Rufina Ruiz on 07-20-2022 Bacteria identified Cx Nom (U) Escherichia coli [facility] Bacteria identified Cx Nom (U) Escherichia coli [facility] WBC Auto (Bld) [#/Vol]Ordere d By: Rufina Ruiz on 07-20-2022 WBC (Bld) [#/Vol] 8.5 10*3/uL 3.8-11.6 [facility] CBC AUTO DIFFon 06-24-2022 BASO # 0.0 103/ul Normal 0.0-0.1 [facility] Comment on above: Performed By: #### C BC #### [facility] [address] [address] [address] Ruthie Pan Basophils/100 WBC (Bld) 0.5 % Normal 0.2-2.0 [facility] Comment on above: Performed By: #### C BC #### [facility] [address] [place] [address] Dr. Ruthie Pan EO # 0.1 103/ul Normal 0.0-0.7 [facility] Comment on above: Performed By: #### C BC #### [facility] [address] [place] [address] Dr. Ruthie Pan Eosinophils/100 WBC (Bld) 1.6 % Normal 0.9-7.0 [facility] Comment on above: Performed By: #### C BC #### [facility] [address] [place] [address] Dr. Ruthie Pan Erythrocyte distribution width (RBC) [Ratio] 13.2 % Normal 11.0-15.0 [facility] Comment on above: Performed By: #### C BC #### [facility] [address] [place] [address] Dr. Ruthie Pan Hematocrit (Bld) [Volume fraction] 41.5 % Normal 36.0-48.0 [facility] Comment on above: Performed By: #### C BC #### [facility] [address] [place] [address] Dr. Ruthie Pan Hemoglobin (Bld) [Mass/Vol] 13.9 g/dL Normal 12.0-16.0 [facility] Comment on above: Performed By: #### C BC #### [facility] [address] [place] [address] Dr. Ruthie Pan IG # 0.02 10e3/ul Normal 0.00-0.03 [facility] Comment on above: Performed By: #### C BC #### [facility] [address] [place] [address] Dr. Ruthie Pan IG % 0.2 % Normal 0.0-0.5 [facility] Comment on above: Performed By: #### C BC #### [facility] [address] [place] [address] Dr. Ruthie Pan LYMPH # 2.5 103/ul Normal 1.2-3.8 [facility] Comment on above: Performed By: #### C BC #### [facility] [address] [place] [address] Dr. Ruthie Pan Lymphocytes/100 WBC (Bld) 28.8 % Normal 20.5-60.0 [facility] Comment on above: Performed By: #### C BC #### [facility] [address] [place] [address] Dr. Ruthie Pan MANUAL DIFF REQ NO Normal [facility] Comment on above: Performed By: #### C BC #### [facility] [address] [place] [address] Dr. Ruthie Pan MCH (RBC) [Entitic mass] 30.3 pg Normal 26.7-34.0 [facility] Comment on above: Performed By: #### C BC #### [facility] [address] [place] [address] Dr. Ruthie Pan MCHC (RBC) [Mass/Vol] 33.5 g/dL Normal 29.9-35.2 [facility] Comment on above: Performed By: #### C BC #### [facility] [address] [place] [address] Dr. Ruthie Pan MCV (RBC) [Entitic vol] 90.6 fL Normal 81.0-99.0 [facility] Comment on above: Performed By: #### C BC #### [facility] [address] [place] [address] Dr. Ruthie Pan MONO # 0.6 103/ul Normal 0.3-0.8 [facility] Comment on above: Performed By: #### C BC #### [facility] [address] [place] [address] Dr. Ruthie Pan Monocytes/100 WBC (Bld) 6.4 % Normal 1.7-12.0 [facility] Comment on above: Performed By: #### C BC #### [facility] [address] [place] [address] Dr. Ruthie Pan NEUT # 5.5 103/ul Normal 1.4-6.5 [facility] Comment on above: Performed By: #### C BC #### [facility] [address] [address] [address] Ruthie Pan Neutrophils/100 WBC (Bld) 62.5 % Normal 43.0-75.0 [facility] Comment on above: Performed By: #### C BC #### [facility] [address] [address] [address] Ruthie Pan Platelet mean volume (Bld) [Entitic vol] 11.1 fL Normal 9.5-13.5 [facility] Comment on above: Performed By: #### C BC #### [facility] [address] [place] [address] Dr. Ruthie Pan PLT 150 103/ul Normal 150-450 [facility] Comment on above: Performed By: #### C BC #### [facility] [address] [place] [address] Dr. Ruthie Pan RBC 4.58 106/ul Normal 4.20-5.40 [facility] Comment on above: Performed By: #### C BC #### [facility] [address] [place] [address] Dr. Ruthie Pan WBC 8.8 103/ul Normal 4.0-11.0 [facility] Comment on above: Performed By: #### C BC #### [facility] [address] [place] [address] Dr. Ruthie Pan [facility]11 SARS-CoV-2 (COVID-19) RNA MICHAEL+probe Ql (Unsp spec) Not detected Normal NOT DETECTED [facility] Comment on above: Result Comment: This test is not yet approved or cleared by the [place] FDA. When there are no FDA-approved or cleared tests available, and other criteria are met, FDA can make tests available under an emergency access mechanism called an Emergency Use Authorization (EUA). The EUA for this test is supported by the [place] of Health and Human Service's (HHS's) declaration [...] consistent with SARS-CoV-2. Performed By: #### C VDTB ####[facility] [address] [place], [place] [address]Dr. Ruthie Pan INFLUENZA A AND B AGon 06-24 [facility] SEE BELOW Normal [facility] Comment on above: Result Comment: Nega tive for Flu A protein angiten. Infection due to Flu A cannot be ruled out. Flu A angiten in the sample may be below the detection limit of the test. Performed By: #### I NFLUAB ####[place] [address]Dr. Ruthie Pan INFLUBNEG SEE BELOW Normal [facility] Comment on above: Result Comment: Nega tive for Flu B protein antigen. Infection due to Flu B cannot be ruled out. Flu B antigen in the sample may be below the detection limit of the test. Performed By: #### I NFLUAB ####[facility] [address] [place], [place] [address]Dr. Ruthie Pan INFLUENZA A AG Negative Normal NEGATIVE SEE COMMENT [facility] Comment on above: Performed By: #### I NFLUAB ####[facility] [address] [place], [place] [address]Dr. Ruthie Pan INFLUENZA B AG Negative Normal NEGATIVE SEE COMMENT [facility] Comment on above: Performed By: #### I NFLUAB ####[facility] [address] [place], [place] [address]Dr. Ruthie Pan INTERNAL CONTROLS Within Normal Limits Normal Wi thin Normal Limits [facility] Comment on above: Performed By: #### I NFLUAB ####[facility] [address] [place], [place] [address]Dr. Ruthie Pan PROF 14(COMP METB)on 022 Albumin [Mass/Vol] 3.7 g/dL Normal 3.4-5.0 [facility] Comment on above: Performed By: #### C MP ####[facility] [address] [place], [place] [address]Dr. Ruthie Pan Albumin/Globulin [Mass ratio] 1.1 {ratio} Normal [facility] Comment on above: Performed By: #### C MP ####[facility] [address] [place], [place] [address]Dr. Ruthie Pan ALP [Catalytic activity/Vol] 125 U/L Critically high 46-116 [facility] Comment on above: Performed By: #### C MP ####[facility] [address] [place], [place] [address]Dr. Ruthie Pan ALT [Catalytic activity/Vol] 17 U/L Normal 14-59 [facility] Comment on above: Performed By: #### C MP ####[facility] [address] [place], [place] [address]Dr. Ruthie Pan Anion gap [Moles/Vol] 9.8 mmol/L Normal [facility] Comment on above: Performed By: #### C MP ####[facility] [address] [place], [place] [address]Dr. Ruthie Pan AST [Catalytic activity/Vol] 16 U/L Normal 15-37 [facility] Comment on above: Performed By: #### C MP ####[facility] [address] [place], [place] [address]Dr. Ruthie Pan Bilirubin [Mass/Vol] 0.3 mg/dL Normal 0.2-1.0 [facility] Comment on above: Performed By: #### C MP ####[facility] [address] [place], [place] [address]Dr. Ruthie Pan Calcium [Mass/Vol] 8.7 mg/dL Normal 8.5-10.1 [facility] Comment on above: Performed By: #### C MP ####[facility] [address] [place], [place] [address]Dr. Ruthie Pan Chloride [Moles/Vol] 103 mmol/L Normal 98-107 [facility] Comment on above: Performed By: #### C MP ####[facility] [address] [address]Dr. Ruthie Pan CO2 [Moles/Vol] 28.3 mmol/L Normal 21.0-32.0 [facility] Comment on above: Performed By: #### C MP ####[facility] [address] [address]Dr. Ruthie Pan Creatinine [Mass/Vol] 0.62 mg/dL Normal 0.55-1.02 [facility] Comment on above: Performed By: #### C MP ####[facility] [address] [place], [place] [address]Dr. Ruthie Pan EGFR-AF MONGOLIAN >60 Normal >=60 [facility] Comment on above: Performed By: #### C MP ####[facility] [address] [address]Dr. Ruthie Pan EGFR-NON AF MONGOLIAN >60 Normal >=60 [facility] Comment on above: Performed By: #### C MP ####[facility] [address] [place], [place] [address]Dr. Ruthie Pan Globulin (S) [Mass/Vol] 3.4 g/dL Normal [facility] Comment on above: Performed By: #### C MP ####[facility] [address] [address]Dr. Ruthie Pan Glucose [Mass/Vol] 103 mg/dL Normal 74-106 [facility] Comment on above: Performed By: #### C MP ####[facility] [address] [place], [place] [address]Dr. Ruthie Pan Potassium [Moles/Vol] 3.1 mmol/L Critically low 3.5-5.1 [facility] Comment on above: Performed By: #### C MP ####[facility] [address] [address]Dr. Ruthie Maxim Protein [Mass/Vol] 7.1 g/dL Normal 6.4-8.2 [facility] Comment on above: Performed By: #### C MP ####[facility] [address] [place] [id number]. Ruthie Pan Sodium [Moles/Vol] 140 mmol/L Normal 136-145 [facility] Comment on above: Performed By: #### C MP ####[facility] [address] [place] [address]Dr. Ruthie Pan Urea nitrogen [Mass/Vol] 6.0 mg/dL Critically low 7.0-18. 0 [facility] Comment on above: Performed By: #### C MP ####[facility] [address] [address]Dr. Ruthie Pan Urea nitrogen/Creatinine [Mass ratio] 9.7 mg/mg Normal [facility] Comment on above: Performed By: #### C MP ####[facility] [address] [address]Dr. Ruthie Pan Urine culture routineOrdered By: Rufina Ruiz on 06-09-2022 Bacteria identified Cx Nom (U) Escherichia coli [facility] Urine culture routineOrdered By: Rufina Ruiz on 04-16-2022 Bacteria identified Cx Nom (U) Escherichia coli [facility] AMYLASEon 11-24-2021 Amylase [Catalytic activity/Vol] 85 U/L Normal 25-115 [facility] Comment on above: Performed By: #### C MP, ROSALIA LIPA #### [facility] [address] [address] [address] Ruthie Pan CBC AUTO DIFFon 11-24-2021 BASO # 0.0 103/ul Normal 0.0-0.1 [facility] Comment on above: Performed By: #### C BC ####[facility] [address] [address]Dr. Ruthie Pan Basophils/100 WBC (Bld) 0.4 % Normal 0.2-2.0 [facility] Comment on above: Performed By: #### C BC ####[facility] [address] [address]Dr. Ruthie Pan EO # 0.2 103/ul Normal 0.0-0.7 [facility] Comment on above: Performed By: #### C BC ####[facility] [address] [address]Dr. Ruthie Pan Eosinophils/100 WBC (Bld) 1.6 % Normal 0.9-7.0 [facility] Comment on above: Performed By: #### C BC ####[facility] [address] [place], [place] [address]Dr. Ruthie Pan Erythrocyte distribution width (RBC) [Ratio] 13.8 % Normal 11.0-15.0 [facility] Comment on above: Performed By: #### C BC ####[facility] [address] [place], [place] [address]Dr. Ruthie Pan Hematocrit (Bld) [Volume fraction] 38.5 % Normal 36.0-48.0 [facility] Comment on above: Performed By: #### C BC ####[facility] [address] [place], [place] [address]Dr. Ruthie Pan Hemoglobin (Bld) [Mass/Vol] 12.3 g/dL Normal 12.0-16.0 [facility] Comment on above: Performed By: #### C BC ####[facility] [address] [place], [place] [address]Dr. Ruthie Pan IG # 0.04 10e3/ul Critically high 0.00-0.03 [facility] Comment on above: Performed By: #### C BC ####[facility] [address] [address]Dr. Ruthie Pan IG % 0.4 % Normal 0.0-0.5 [facility] Comment on above: Performed By: #### C BC ####[facility] [address] [place], [place] [address]DrGideon Ruthie Pan LYMPH # 3.4 103/ul Normal 1.2-3.8 [facility] Comment on above: Performed By: #### C BC ####[facility] [address] [place], [place] [address]Dr. Ruthie Pan Lymphocytes/100 WBC (Bld) 31.2 % Normal 20.5-60.0 [facility] Comment on above: Performed By: #### C BC ####[facility] [address] [address]DrGideon Pan MANUAL DIFF REQ NO Normal [facility] Comment on above: Performed By: #### C BC ####[facility] [address] [address]Dr. Ruthie Pan MCH (RBC) [Entitic mass] 31.1 pg Normal 26.7-34.0 [facility] Comment on above: Performed By: #### C BC ####[facility] [address] [place], [place] [address]Dr. Ruthie Pan MCHC (RBC) [Mass/Vol] 31.9 g/dL Normal 29.9-35.2 [facility] Comment on above: Performed By: #### C BC ####[facility] [address] [place], [place] [address]Dr. Ruthie Pan MCV (RBC) [Entitic vol] 97.5 fL Normal 81.0-99.0 [facility] Comment on above: Performed By: #### C BC ####[facility] [address] [place], [place] [address]DrGideon Pan MONO # 0.9 103/ul Critically high 0.3-0.8 [facility] Comment on above: Performed By: #### C BC ####[facility] [address]ls[address] [place], [place] [address]Dr. Ruthie Pan Monocytes/100 WBC (Bld) 8.0 % Normal 1.7-12.0 [facility] Comment on above: Performed By: #### C BC ####[facility] [address] [place], [place] [address]DrGideon Pan NEUT # 6.4 103/ul Normal 1.4-6.5 [facility] Comment on above: Performed By: #### C BC ####[facility] [address] [place], [place] [address]Dr. Ruthie Pan Neutrophils/100 WBC (Bld) 58.4 % Normal 43.0-75.0 [facility] Comment on above: Performed By: #### C BC ####[facility] [address] [place], [place] [address]Yu. Ruthie Pan Platelet mean volume (Bld) [Entitic vol] 10.7 fL Normal 9.5-13.5 [facility] Comment on above: Performed By: #### C BC ####[facility] [address] [place], [place] [address]Mn. Ruthie Pan PLT 207 103/ul Normal 150-450 [facility] Comment on above: Performed By: #### C BC ####[facility] [address] [address]Dr. Ruthie Pan RBC 3.95 106/ul Critically low 4.20-5.40 [facility] Comment on above: Performed By: #### C BC ####[facility] [address] [id number]. Ruthie Pan WBC 11.0 103/ul Normal 4.0-11.0 [facility] Comment on above: Performed By: #### C BC ####[facility] [id number]. Ruthie Pan CT ABD/PELV W CONon 11-25-19 [...] by: LUDIN ANGELES Date: 2021-11-24 03:59 Normal [facility] LACTATE/LACTIC ACIDon 2021 Lactate [Moles/Vol] 1.0 mmol/L Normal 0.4-1.9 [facility] Comment on above: Performed By: #### L ACT #### [facility] [address] [place] [address] Dr. Ruthie Pan LIPASEon 11-24-2021 Lipase [Catalytic activity/Vol] 123.0 U/L Normal 73.0-393.0 [facility] Comment on above: Performed By: #### C MP ROSALIA, LIPA #### [facility] [address] [place] [address] Dr. Ruthie Pan PROF 14(COMP METB)on 022 Albumin [Mass/Vol] 3.3 g/dL Critically low 3.4-5.0 [facility] Comment on above: Performed By: #### C MP, ROSALIA, LIPA #### [facility] [address] [place] [address] Dr. Ruthie Pan Albumin/Globulin [Mass ratio] 1.1 {ratio} Normal [facility] Comment on above: Performed By: #### C MP ROSALIA, LIPA #### [facility] [address] [place] [address] Dr. Ruthie Pan ALP [Catalytic activity/Vol] 139 U/L Critically high 46-116 [facility] Comment on above: Performed By: #### C MP, ROSALIA, LIPA #### [facility] [address] [place] [address] Dr. Ruthie Pan ALT [Catalytic activity/Vol] 17 U/L Normal 14-59 [facility] Comment on above: Performed By: #### C MP, ROSALIA, LIPA #### [facility] [address] [place] [address] Dr. Ruthie Pan Anion gap [Moles/Vol] 10.5 mmol/L Normal [facility] Comment on above: Performed By: #### C MP ROSALIA, LIPA #### [facility] [address] [address] [address] Ruthie Pan AST [Catalytic activity/Vol] 14 U/L Critically low 15-37 [facility] Comment on above: Performed By: #### C MP, ROSALIA, LIPA #### [facility] [address] [place] [address] Dr. Ruthie Pan Bilirubin [Mass/Vol] 0.2 mg/dL Normal 0.2-1.0 [facility] Comment on above: Performed By: #### C MP, ROSALIA, LIPA #### [facility] [address] [place] [address] Dr. Ruthie Pan Calcium [Mass/Vol] 8.3 mg/dL Critically low 8.5-10.1 [facility] Comment on above: Performed By: #### C MP, ROSALIA, LIPA #### [facility] [address] [place] [address] Dr. Ruthie Pan Chloride [Moles/Vol] 103 mmol/L Normal 98-107 [facility] Comment on above: Performed By: #### C MP, ROSALIA, LIPA #### [facility] [address] [place] [address] Dr. Ruthie Pan CO2 [Moles/Vol] 27.9 mmol/L Normal 21.0-32.0 [facility] Comment on above: Performed By: #### C MP, ROSALIA, LIPA #### [facility] [address] [place] [address] Dr. Ruthie Pan Creatinine [Mass/Vol] 0.71 mg/dL Normal 0.55-1.02 [facility] Comment on above: Performed By: #### C MP, ROSALIA, LIPA #### [facility] [address] [place] [address] Dr. Ruthie Pan EGFR-AF MONGOLIAN >60 Normal >=60 [facility] Comment on above: Performed By: #### C MP, ROSALIA, LIPA #### [facility] [address] [place] [address] Dr. Ruthie Pan EGFR-NON AF MONGOLIAN >60 Normal >=60 [facility] Comment on above: Performed By: #### C ROSALIA INFANTE, LIPA #### [facility] [address] [address] [address] Ruthie Pan Globulin (S) [Mass/Vol] 3.1 g/dL Normal [facility] Comment on above: Performed By: #### C MP ROSALIA, LIPA #### [facility] [address] [address] [address] Ruthie Pan Glucose [Mass/Vol] 113 mg/dL Critically high 74-106 [facility] Comment on above: Performed By: #### C ROSALIA INFANTE, LIPA #### [facility] [address] [place] [address] Dr. Ruthie Pan Potassium [Moles/Vol] 3.4 mmol/L Critically low 3.5-5.1 [facility] Comment on above: Performed By: #### C NARESH ROSALIA, LIPA #### [facility] [address] [place] [address] Dr. Ruthie Pan Protein [Mass/Vol] 6.4 g/dL Normal 6.4-8.2 [facility] Comment on above: Performed By: #### C ROSALIA INFANTE, LIPA #### [facility] [address] [place] [address] Dr. Ruthie Pan Sodium [Moles/Vol] 138 mmol/L Normal 136-145 [facility] Comment on above: Performed By: #### C NARESH ROSALIA, LIPA #### [facility] [address] [place] [address] Dr. Ruthie Pan Urea nitrogen [Mass/Vol] 10.0 mg/dL Normal 7.0-18.0 [facility] Comment on above: Performed By: #### C NARESH ROSALIA, LIPA #### [facility] [address] [place] [address] Dr. Ruthie Pan Urea nitrogen/Creatinine [Mass ratio] 14.1 mg/mg Normal [facility] Comment on above: Performed By: #### C NARESH ROSALIA, LIPA #### [facility] [address] [address] [address] Ruthie Pan US SINGLE QUAD RT [...] by: MILE BENITEZ Date: 2021-11-24 07:56 Normal [facility] XR SHOULDER RT 2V or >on XR [...] Date: 2021-11-21 02:37 Normal [facility] Vital Signs Date Time Vital Sign Value Performing Clinician Facility 07-23-2022 00:20-0500 Diastolic blood pressure 65 mm[Hg] Services [facility] Work Phone: [facility] 07-23-2022 00:20-0500 Heart rate 89 /min Services [facility] Work Phone: [facility] 07-23-2022 00:20-0500 Respiratory rate 18 /min [facility] Work Phone: [facility] 07-23-2022 00:20-0500 SaO2% (BldA) [Mass fraction] 99 % Services [facility] Work Phone: [facility] 07-23-2022 00:20-0500 Systolic blood pressure 103 mm[Hg] [facility] Work Phone: [facility] 07-22-2022 19:43-0500 Body height 154.94 cm Services [facility] Work Phone: [facility] 07-22-2022 19:43-0500 Body temperature 98.4 [degF] Services [facility] [employer] Work Phone: [facility] 07-22-2022 19:43-0500 Body weight 64 kg Services [facility] [employer] Work Phone: [facility] 11-23-2021 23:23-0400 Body temperature 98.06 [degF] Venancio Ernesto [facility] 11-23-2021 23:23-0400 Diastolic blood pressure 63 mm[Hg] Venancio Ernesto [facility] 11-23-2021 23:23-0400 Heart rate 81 /min Venancio Ernesto [facility] 11-23-2021 23:23-0400 Respiratory rate 16 /min Venancio Ernesto [facility] 11-23-2021 23:23-0400 SaO2% (BldA) [Mass fraction] 97 % Venancio Ernesto [facility] 11-23-2021 23:23-0400 Systolic blood pressure 102 mm[Hg] Venancio Ernesto [facility] Encounters Encounter Date Encounter Type Care Provider Facility Start: 09-28-2023 End: 09-28-2023 ambulatory Rufina Ruiz Facility:[facility] Start: 09-28-2023 End: 09-28-2023 ambulatory Services [facility] Work Phone: [facility] Work Phone: Start: 09-28-2023 End: 09-28-2023 Departed Referred Services [facility] Work Phone: [facility] Start: 08-26-2023 Chart abstracting Damian Mcclellan ryan DPM Work Phone: [facility] Start: 06-29-2023 End: 06-29-2023 ambulatory Brian Mast - F[facility] Facility:[facility] Start: 06-29-2023 End: 06-29-2023 ambulatory DPM Damian Mcclellannthal Work Phone: [facility] Work Phone: Start: 06-29-2023 End: 06-29-2023 Departed Referred DPM Damian Mcclellannthal Work Phone: [facility] Start: 05-26-2023 End: 05-26-2023 ambulatory DAMIAN JOVEL [facility] Work Phone: Start: 05-26-2023 End: 05-26-2023 Departed Referred [employer] Rufina Ruiz Work Phone: [facility] [place] Work Phone: Start: 03-19-2023 End: 03-19-2023 ambulatory Rufina Ruiz Facility:[facility] Start: 03-19-2023 End: 03-19-2023 ambulatory [employer] Rufina Ruiz Work Phone: [facility] Work Phone: Start: 03-19-2023 End: 03-19-2023 Departed Referred [employer]C Rufina Ruiz Work Phone: [facility] Start: 12-08-2022 End: 12-09-2022 ambulatory Adam R ERICKSON Facility:[facility] Start: 12-08-2022 End: 12-08-2022 Patient encounter procedure Adam R DRE [facility] [place] Start: 11-16-2022 End: 11-16-2022 ambulatory Rufina Ruiz Facility:[facility] Start: 11-16-2022 End: 11-16-2022 ambulatory [employer]C Rufina Ruiz Work Phone: [facility] Work Phone: Start: 11-16-2022 End: 11-16-2022 Departed Referred [employer]-C Rufina Ruiz Work Phone: [facility] [place] Work Phone: Start: 11-10-2022 ambulatory Adam ERICKSON Facili ty:[facility] Start: 10-27-2022 End: 10-28-2022 ambulatory RUFINA RUIZ Facility:[facility] Start: 10-04-2022 End: 10-04-2022 ambulatory [facility] Facility:[facility] Start: 09-21-2022 End: 09-21-2022 ambulatory NON STAFF [facility] Work Phone: Start: 09-21-2022 End: 09-21-2022 Departed Referred [employer]C Rufina Ruiz Work Phone: [facility] Start: 09-01-2022 ambulatory Adam ERICKSON Facility :[facility] Start: 08-31-2022 End: 08-31-2022 Departed Referred [employer] Rufina Ruiz Work Phone: [facility] Start: 07-22-2022 End: 07-23-2022 Emergency department patient visit Services [facility] Work Phone: [facility] Work Phone: Start: 07-21-2022 End: 07-21-2022 ambulatory [facility] Facility:[facility] Start: 07-20-2022 End: 07-20-2022 ambulatory [employer] Rufina Ramiro Work Phone: [facility] Work Phone: Start: 07-20-2022 End: 07-20-2022 Departed Referred [employer] Rufina Ramiro Work Phone: [facility] Start: 06-24-2022 End: 06-24-2022 ambulatory [facility] Facility:[facility] Start: 06-09-2022 End: 06-09-2022 ambulatory [facility] Work Phone: [facility] Work Phone: Start: 06-09-2022 End: 06-09-2022 Departed Referred Services [facility] Work Phone: [facility] Start: 04-14-2022 End: 04-14-2022 ambulatory [facility] Work Phone: [facility] Work Phone: Start: 04-14-2022 End: 04-14-2022 Departed Referred Services [facility] Work Phone: [facility] Start: 04-08-2022 End: 04-09-2022 ambulatory [facility] Facility:[facility] Start: 11-24-2021 End: 11-24-2021 ambulatory [facility] Facility:[facility] Start: 11-23-2021 End: 11-24-2021 Emergency department patient visit Venancio Orozco [facility] Start: 11-21-2021 End: 11-21-2021 ambulatory [facility] Facility:[facility] Start: 11-06-2021 End: 11-06-2021 ambulatory [facility] Facility:[facility] Procedures Date Procedure Procedure Detail Performing Clinician Start: 05-26-2023 Aerobic microbial culture DPM Damian Jovel Work Phone: Start: 08-31-2022 Urine culture [employer] Larissa Ruiz Work Phone: Start: 07-22-2022 Computed tomography of abdomen and pelvis with contrast [employer] Rufina Ruiz Work Phone: Start: 07-22-2022 US scan of gallbladder [employer] Rufina Ruiz Work Phone: Start: 07-20-2022 Urine culture Services [facility] Work Phone: Start: 06-09-2022 Urine culture [employer] Larissa Ruiz Work Phone: Start: 05-30-2021 Arthroscopy of shoulder Venancio Orozco Urine culture Services [facility] Work Phone: Vaginal hysterectomy Venancio knox Plan of Treatment Date Care Activity Detail Author Start: 09-28-2023 Bacteria identified in Urine by Culture Urine Culture [facility] Start: 08-26-2023 End: 08-26-2023 Patient encounter procedure 08/26/2023 9:00 AM EST Procedure Visit [facility] [address] [place] [id number] Damian Jovel, DPM [address] [place] [address] [facility] Start: 06-29-2023 Bacteria identified in Urine by Culture [facility] Start: 05-26-2023 Superficial Wound Culture Superficial Wound Culture [facility] Start: 07-22-2022 Computed tomography of abdomen and pelvis with contrast CT abdomen pelvis w con [facility] Start: 07-22-2022 CT Abdomen and Pelvi s W contrast IV [facility] Start: 07-22-2022 US Gallbladder [facility] Start: 07-22-2022 US scan of gallbladder US gall bladd er [facility] Start: 07-20-2022 Bacteria identified in Urine by Culture Urine Culture [facility] Bacteria identified in Urine by Culture [facility] Patient Education Abdominal Pain , Adult ED [facility] Work Phone: Patient referral [facility] Work Phone: Payers Date Payer Category Payer Unknown [id number] 2023 Medicaid [facility] [employer] BCBS [place]ICA[place] [id number] 2023-Present [address] [place] [address] [id number] 2022 Self-pay [id number] 1975 Unknown [id number] 2.16.840.1.096548.3.579.2. 593 1977 Unknown [id number] 2..840.1.629550.3.579.2. 593 1977 Unknown [id number] 2..840.1.774709.3.579.2. 593 1977 Unknown [id number] 2..840.1.735742.3.579.2. 593 1977 Unknown [id number] 2.16.840.1.037742.3.579.2. 593 1977 Unknown [id number] 2.16.840.1.168919.3.579.2. 593 1977 Unknown [id number] 2.16.840.1.023524.3.579.2. 593 1977 Unknown [id number] 2.16.840.1.701541.3.579.2. 727 1977 Unknown [id number] 2.16.840.1.739234.3.579.2. 727 1977 Unknown [id number] 2.16.840.1.437951.3.579.2. 727 1977 Unknown [id number] 2.16.840.1.179388.3.579.2. 727 1977 Unknown [id number] 2.16.840.1.965940.3.579.2. 1259 1959 Medicaid [id number] 1957 Medicaid [id number] Private Health Insurance [facility] [id number] Unknown [id number] 2.16.840.1.189835.3.579.2. 531 Unknown [id number] 2.16.840.1.480927.3.579.2. 531 Unknown [id number] 2.16.840.1.570418.3.579.2. 531 Unknown [id number] 2.16.840.1.871018.3.579.2. 531 Unknown [id number] 2.16.840.1.266762.3.579.2. 531 Social History Date Type Detail Facility Start: 11-11-2020 End: 10-27-2022 Tobacco smoking status Heavy tobacco smoker (finding) [facility] Start: 05-26-2023 Sex Assigned At Female [facility] Start: 12-16-2020 End: 07-22-2022 Tobacco smoking status NHIS Smoker (finding) [facility] Start: 1975 Sex Assigned At Female [facility] Tobacco smoking status Never [facility] Start: 07-12-1994 Tobacco smoking status OHIS Smokes tobacco daily [facility] Start: 07-12-1994 History of tobacco use Cigarette Smoker [facility] Start: 05-26-2023 End: 08-19-2023 Cigarettes smoked current (pack per day) - Reported 0.5 [facility] Start: 08-19-2023 Alcohol intake Not Asked [facility] Start: 05-25-2023 Tobacco Comment Smokes 6-10 cigs/day. [facility] Start: 05-25-2023 Alcohol Comment caffeine intake: 2-3 cups per day. [facility] Start: 05-25-2023 Gender identity Identifies as female gender (finding) [facility] Start: 05-25-2023 Sexual orientation Heterosexual (finding) [facility] Medical Equipment Procedure Code Equipment Code [...] yes avoids baths/hot tubs yes avoids scented ANESTH[employer] FELLOW products yes urinates after sexual activity yes. [...] Will order Local anesthesia. [facility]. 2. History of kidney stones (Z87.442: Personal history of urinary calculi) Last stone was 8 months ago. Passes stones on her own without surgical intervention. CT AP w/ contrast 07/22/22 neg for stones. there are symmetric bilateral renal nephrograms, without hydro. Follow-up With When Contact Information DRE ANSARI, Adam Arrington, URL [facility] [place] [address]- Additional Instructions: cysto/UD Patient Education Urinary Tract Infection, Adult Documentation recorded by the dot Lang[place] accurately reflects the services(s) I performed and decisions made by me. Authenticated by Rufina Treadwell PA-C on 10/27/2022 15:13:59. I, Maite Langford, personally scribed for Rufina Treadwell PA-C on [...] Daily Vitamin B- (more content not included)... [facility] Comment on above: Result Comment: Elec tronically Signed By: RUFINA TREADWELL PA-C.br\Date and Time Signed: 10/27/22 15:14 EDT\.br\Electronically Co-Signed By: Maite Langford\Date and Time Co-Signed: 10/27/22 15:10 EDT Hospital Discharge instructions 05-16-2022 Note Date & Type Note Facility 11-24-2021 [...] to strengthen the arm. General instructions Take [id number] and prescription medicines only as told by [...] 04/07/2006 Document Revised: 01/10/2019 Document Reviewed: 01/10/2019 [employer] Patient Education [employer] Follow Up Care 11/23/2021 23:20:28 With:Cande Hinds Address: [place] [place] [address]- Business (1) When:12/01/2021 only if needed [facility] Evaluation + Plan note 11-23-2021 Note Date & Type Note Facility 11-23-2021 Evaluation + Plan note Extrac zakia from: Title:ED Note Author:Venancio Orozco DO Date :11/23/21 Acute pain of right shoulder (M25.511: Pain in right shoulder) Orders: acetaminophen-oxycodone, 1 tab(s), Tab, Oral, Once, Stop date 11/23/21 23:37:00 EDT, STAT, Start date 11/23/21 23:37:00 EDT Sling Apply XR Shoulder Complete Right [facility] Evaluation note Note Date & Type Note Facility Evaluation note [facility] Narrative Note Date & Type Note Facility Hospital course Narrative No data available for this section [facility] Hospital Discharge instructions Note Date & Type [...] the other day did show an infection. [facility] Work Phone: Hospital Discharge instructions Note Date & Type Note Facility Hospital Discharge instructions No data available for this section [facility] Progress note Note Date & Type Note Facility Progress note No data available for this section [facility] Chief Complaint and Reason for Visit Chief [...] G25.81 F31.9 Z 72.0 Chief Complaint L60.0 Chief Complaint Bipolar disorder Dys uria;History of kidney stones Advance Directives No Advanced Directives Records Found Advance Directive Response Recorded Date/ Time Advance Directives No May 2:03am Advance Directive Response Recorded Date/ Time Advance Directives No May 1:03am Summary Purpose Family History No Family History Records Found Relationship Condition Age at Onset Recorded Date/T denton father Unknown Additional Source Comments Care Teams (unrecognized sec tion and content) Team Status: Inactive Member Role Status Dates Services [facility] Primary Care Prov ider, Family Provider Active ZANE Driscoll Attending Vasu r Active Team Status: Active Member Role Status Dates Services [facility] Family Provider Active Services [facility] Primary Care Provider Active Team Status: Inactive Member Role Status Dates Services [facility] Family Provider Active ZANE Driscoll Attending Vasu r Active Team Status: Active Member Role Status Dates Services Family [facility] Family Provider Active Team Status: Inactive Member Role Status Dates Services [facility] Primary Care Provider, Family P janey Active Salvador Maier Jr, MD Emergency Provider Active Team Status: Inactive Member Role Status Dates Services Family [facility] Family Provider Active ZANE Driscoll Attending Provide r Active NON STAFF Primary Care Provider Active Team Status: Inactive Member Role Status Dates Services [facility] Family Provider Active Damian Jovel DPM Attending Provider Active Team Status: Inactive Member Role Status Dates Services [facility] Family Provider Active Brian Wood DO Attending Provider Active Wave Solder Offbearer Relationship Specialty Start Date End Date Unallocated, [facility] [place] [address] PCP - General 05/26/23 Team Status: Inactive Member Role Status Dates Services [facility] Primary Care Provider Active Start: September 28, 2023 End: September 28, 2023 ZANE Corrales Attending Provider Active Start: September 27 End: September 28, 2023 Goals (unrecognized section and content) Goals may be documented in a n alternate section INFORMATION SOURCE (unrecogn ized section and content) DATE CREATED AUTHOR 10/05/2022 [facility] DATE CREATED AUTHOR AUTHOR'S ORGANIZ ATION 12/18/2022 [facility] DATE CREATED AUTHOR AUTHOR'S ORGANIZ ATION 05/28/2023 [facility] DATE CREATED AUTHOR AUTHOR'S ORGANIZ ATION 10/07/2023 [facility] FOR RECORDS PERTAINING TO PATIENTS WHO [...] BE BASED ON THE PRIMARY CLINICAL RECORDS. [employer] provides no warranty or guarantee of the accuracy or completeness of information in this document.
--- NOTE | 2023-10-20 22:38 | ECG_ITS ---
[facility] Test Date: 2023-10-20 Pat Name: ZIGGY SANCHEZ Department: Room: - Gender: Female [employer]: : 1975 Requested By: [id number] Order Number: [id number] Reading MD: LASHAWN GONZALEZ Measurements Intervals [place] Rate: 66 P: 70 SD: 140 QRS: 81 QRSD: 88 T: 61 QT: 406 QTc: 419 Interpretive Statements 1100 Sinus rhythm 9110 normal ECG Compared to ECG 09/23/2020 23:54:19 No significant changes Electronically Signed On 10-21-2023 6:59:28 EDT by LASHAWN GONZALEZ
--- NOTE | 2023-10-20 22:40 | ED_ITS ---
HPI HPI - Back Pain/Injury General Chief Complaint: Back Pain/Injury Stated Complaint: Back Pain Time Seen by Provider: 10/20/23 22:15 Source: patient Mode of arrival: walk-in Limitations: no limitations History of Present Illness HPI Narrative: This 48-year-old female with a history of chronic pain and muscle spasms in her back presents for evaluation of several days of increasing pain in her mid back that wraps around to her upper abdomen. She states the pain is making her short of breath. She has been taking Advil and her muscle relaxants. She denies any recent injury. She denies any chest pain dizziness or syncope. She has no abdominal pain in her lower abdomen. She has no lower extremity pain or swelling. She does admit to cigarette smoking. She denies any recent fever or IV drug use. Related Data Home Medications ?Medication ?Instructions ?Recorded ?Confirmed albuterol sulfate 2.5 mg/3 mL 2.5 mg inhalation Q6H PRN 06/05/23 10/20/23 (0.083 %) solution for nebulization shortness of breath or wheezing fluticasone 250 mcg-salmeterol 50 1 inh inhalation BID 06/05/23 10/20/23 mcg/dose blistr powdr for inhalation (Advair Diskus) tizanidine 2 mg tablet 2 mg PO Q12H 06/05/23 10/20/23 albuterol sulfate 90 mcg/actuation 2 puff inhalation Q6H PRN 07/21/23 10/20/23 aerosol inhaler shortness of breath or wheezing fluoxetine 40 mg capsule 40 mg PO QDAY 07/21/23 10/20/23 folic acid 1 mg tablet 1 mg PO QDAY 07/21/23 10/20/23 olanzapine 10 mg tablet 10 mg PO QDAY 07/21/23 10/20/23 ropinirole 0.5 mg tablet 1 mg PO .qhs 07/21/23 10/20/23 Allergies Allergy/AdvReac Type Severity Reaction Status Date / Time aspirin Allergy Severe Verified 10/20/23 22:18 haloperidol [From Haldol] Allergy Severe Verified 10/20/23 22:18 hydroxyzine [From Vistaril] Allergy Severe Verified 10/20/23 22:18 ketorolac [From Toradol] Allergy Severe Verified 10/20/23 22:18 magnesium sulfate Allergy Severe Verified 10/20/23 22:18 naproxen [From Anaprox] Allergy Severe Verified 10/20/23 22:18 Opioid HPI Opioid Management Most Recent Opioid Data: Last Pain Scale 8 10/20/23 22:56 Prescription drug monitoring program results: PDMP reviewed and no issues identified (last received 20 [place] on 09/28/23 ) Review of Systems ROS Status of ROS 10 or more systems reviewed and unremark able except as noted in history and below PFSH PFSH Social History Smoking status: Current every day smoker Exam Narrative Exam Narrative: Nurses note and vital signs reviewed and patient is not hypoxic. General: Thin, alert, nontoxic female, she is sitting style on the stretcher, no respiratory distress Skin: Warm, dry, no pallor noted. There is no rash noted. Head: Normocephalic, atraumatic Eye: Normal conjunctiva, no drainage, EOMI. PERRL Ears, Nose, Mouth, and Throat: oral mucosa is moist. Neck: Supple, no meningeal signs Cardiovascular: Regular Rate and Rhythm S1S2, pulses are brisk and equal bilaterally Respiratory: Patient is in no distress, no accessory muscle use, lungs are clear to auscultation, no wheezing, rales or rhonchi Back: There is tenderness to the midthoracic region with no midline bony vertebral tenderness or step-off, there is no skin rash in this area GI: Normal bowel sounds,Mild tenderness in the epigastrium, right upper quadrant and left upper quadrant with no rebound guarding rigidity, Musculoskeletal: The patient has no evidence of calf tenderness, no pitting edema, symmetrical pulses noted bilaterally Neurological: A&O x4, normal speech, Upper and lower extremity strength and sensation is intact Psychiatric: Cooperative Constitutional Vital Signs, click to edit/add: Last Vital Signs Temp 98.7 F 10/20/23 22:19 Pulse 79 10/20/23 22:19 Resp 16 10/20/23 22:19 BP 110/67 10/20/23 22:19 Pulse Ox 100 10/20/23 22:19 O2 Del Method Room Air 10/20/23 22:19 Course Vital Signs Vital signs: Vital Signs Temperature 98.7 F 10/20/23 22:19 Pulse Rate 79 10/20/23 22:19 Respiratory Rate 16 10/20/23 22:19 Blood Pressure 110/67 10/20/23 22:19 Pulse Oximetry 100 10/20/23 22:19 Oxygen Delivery Method Room Air 10/20/23 22:19 Temperature 98.7 F 10/20/23 22:19 Pulse Rate 79 10/20/23 22:19 Respiratory Rate 16 10/20/23 22:19 Blood Pressure 110/67 10/20/23 22:19 Pulse Oximetry 100 10/20/23 22:19 Oxygen Delivery Method Room Air 10/20/23 22:19 MDM - Back Pain/Injury MDM Narrative Medical decision making narrative: This 48-year-old female with a history of some degree of chronic pain presents for evaluation of mid thoracic back pain that wraps around to her abdomen. She denies any injury. The pain has been present for the past several days. The patient has multiple ALLERGIES but states she has been taking ibuprofen for her pain. She states the pain is worse with movement and deep breathing. She is a smoker. In light of this I ordered routine labs including a d-dimer. Her d-dimer is normal. She has a normal white count hemoglobin. Her electrolytes are normal with the exception of a potassium of 3. This was replaced orally in the ED. She does have a mild elevation in her alkaline phosphatase at 121. The remainder of her liver function tests are normal. She was medicated in emergency department with the dorsum [place] and Zofran. I did review her OARRS report and she received a Rx for 20 [place] on 09/28/23, likely at her PCPs office. Xray of the thoracic spine was ordered and reviewed by myself, it does not show any sign of fracture, subluxation or other notable abnormality. She will be discharged home with a short course of [place] and right commanded to take her muscle relaxants as she has been taking in the past. She'll also be given a prescription for potassium to take for her low potassium. I did explain to her low potassium may be causing her to have muscle spasms. Lab Data Attestation: I reviewed the patient's lab results. Labs: Lab Results 10/20/23 Range/Units 22:48 WBC 12.8 H (4.0-11.0) 10^3/uL RBC 3.82 L (4.20-5.40) 10^6/uL Hgb 12.2 (12.0-16.0) g/dL Hct 36.6 (36.0-48.0) % MCV 95.8 (81.0-99.0) fL MCH 31.9 (26.7-34.0) pg MCHC 33.3 (29.9-35.2) g/dL RDW 13.4 (11.0-15.0) % Plt Count 233 (150-450) 10^3/uL MPV 11.2 (9.5-13.5) fL Neut % (Auto) 58.8 (43.0-75.0) % Lymph % (Auto) 31.0 (20.5-60.0) % [place] % (Auto) 8.1 (1.7-12.0) % Eos % (Auto) 1.3 (0.9-7.0) % Baso % (Auto) 0.5 (0.2-2.0) % Neut # (Auto) 7.5 H (1.4-6.5) 10^3/uL Lymph # (Auto) 4.0 H (1.2-3.8) 10^3/uL [place] # (Auto) 1.0 H (0.3-0.8) 10^3/uL Eos # (Auto) 0.2 (0.0-0.7) 10^3/uL Baso # (Auto) 0.1 (0.0-0.1) 10^3/uL Abs Immat Gran (auto) 0.04 H (0.00-0.03) 10^3/uL Imm/Tot Granulo (auto) 0.3 (0.0-0.5) % D-Dimer 0.23 (<=0.59) mg/L FEU Sodium 143 (136-145) mmol/L Potassium 3.0 L (3.5-5.1) mmol/L Chloride 105 (98-107) mmol/L Carbon Dioxide 28.7 (21.0-32.0) mmol/L Anion Gap 12.3 BUN 10.0 (7.0-18.0) mg/dL Creatinine 0.72 (0.55-1.02) mg/dL Est GFR ( Amer) >60 (>=60) Est GFR (Non-Af Amer) >60 (>=60) BUN/Creatinine Ratio 13.9 Glucose 93 (74-106) mg/dL Calcium 9.1 (8.5-10.1) mg/dL Total Bilirubin 0.2 (0.2-1.0) mg/dL AST 8 L (15-37) U/L ALT 11 L (14-59) U/L Alkaline Phosphatase 121 H (46-116) U/L Total Protein 6.6 (6.4-8.2) g/dL Albumin 3.7 (3.4-5.0) g/dL Globulin 2.9 g/dL Albumin/Globulin Ratio 1.3 Discharge Plan Discharge Stand Alone Forms: Portal Instructions Chief Complaint: Back Pain/Injury Clinical Impression: Thoracic back pain, Hypokalemia Patient Disposition: Home, Self-Care Time of Disposition Decision: 01:16 Condition: Good Prescriptions / Home Meds: No Action albuterol sulfate 2.5 mg /3 mL (0.083 %) solution for nebulization 2.5 mg inhalation Q6H PRN (Reason: shortness of breath or wheezing) tizanidine 2 mg tablet 2 mg PO Q12H fluticasone propion-salmeterol [Advair Diskus] 250-50 mcg/dose blister with device 1 inh inhalation BID fluoxetine 40 mg capsule 40 mg PO QDAY olanzapine 10 mg tablet 10 mg PO QDAY ropinirole 0.5 mg tablet 1 mg PO .qhs folic acid 1 mg tablet 1 mg PO QDAY albuterol sulfate 90 mcg/actuation HFA aerosol inhaler 2 puff INHALATION Q6H PRN (Reason: shortness of breath or wheezing) Print Language: Burmese Instructions: Potassium Content of Foods List (ED), Hypokalemia (ED), Thoracic Pain (ED), Back Pain (ED) Referrals: [facility] [Primary Care Provider] - 1 week
[2023-10-20] MEDS: ONDANSETRON 4 MG RAPDIS TABLET SL (22:56)
[2023-10-20] MEDS: HYDROCODONE/ACET 5-325 MG TABLET 1 TAB PO (22:56)
[2023-10-20 22:57] LABS: Basophils Absolute Auto 0.1 10^3/uL (0.0-0.1); Basophils Percent Auto 0.5 % (0.2-2.0); Eosinophils Absolute Auto 0.2 10^3/uL (0.0-0.7); Eosinophils Percent Auto 1.3 % (0.9-7.0); Hematocrit 36.6 % (36.0-48.0); Hemoglobin 12.2 g/dL (12.0-16.0); Immature Granulocytes Abs Auto 0.04 10^3/uL (0.00-0.03); Immature Granulocytes Pct Auto 0.3 % (0.0-0.5); Mean Corpuscular HGB Conc 33.3 g/dL (29.9-35.2); Mean Corpuscular Hemoglobin 31.9 pg (26.7-34.0); Mean Corpuscular Volume 95.8 fL (81.0-99.0); Mean Platelet Volume 11.2 fL (9.5-13.5); Monocytes Percent Auto 8.1 % (1.7-12.0); Neutrophils Absolute Auto 7.5 10^3/uL (1.4-6.5); Neutrophils Percent Auto 58.8 % (43.0-75.0); Platelet Count 233 10^3/uL (150-450); Red Blood Count 3.82 10^6/uL (4.20-5.40); Red Cell Distribution Width 13.4 % (11.0-15.0); White Blood Count 12.8 10^3/uL (4.0-11.0)
[2023-10-20 23:12] LABS: D Dimer 0.23 mg/L FEU (<=0.59)
[2023-10-20 23:14] LABS: Alanine Aminotransferase 11 U/L (14-59); Albumin Globulin Ratio 1.3; Albumin Level 3.7 g/dL (3.4-5.0); Alkaline Phosphatase 121 U/L (46-116); Anion Gap 12.3; Aspartate Amino Transferase 8 U/L (15-37); BUN Creatinine Ratio 13.9; Bilirubin Total 0.2 mg/dL (0.2-1.0); Calcium 9.1 mg/dL (8.5-10.1); Carbon Dioxide 28.7 mmol/L (21.0-32.0); Chloride 105 mmol/L (98-107); Estimated GFR (African America >60 (>=60); Estimated GFR (Non-African Ame >60 (>=60); Globulin 2.9 g/dL; Glucose 93 mg/dL (74-106); Sodium 143 mmol/L (136-145); Total Protein 6.6 g/dL (6.4-8.2)
--- NOTE | 2023-10-20 23:46 | XR_ITS ---
The [address] [address] Patient Name: ZIGGY SANCHEZ MRN: [id number] date: 1975 Sex: F Assigned Patient Location: ER Current Patient Location: Accession/Order Number: [id number] Exam Date: 10/20/2023 23:50 Report Date: 10/21/2023 01:47 At the request of: RADHA MARKER Procedure: XR thoracic spine 2V EXAM: XR thoracic spine 2V HISTORY: mid back pain COMPARISON: None. TECHNIQUE: 2 views of the thoracic spine were obtained. FINDINGS: No acute fracture or subluxation is seen. The vertebral body heights are preserved. The vertebral elements are in anatomic alignment. There are mild scattered degenerative changes including endplate osteophytes and degenerative disc disease. The imaged lungs are clear. XR/XR thoracic spine 2V IMPRESSION: 1. Mild scattered degenerative changes with no acute osseous abnormality seen. If there is concern for an occult injury, cross-sectional imaging is recommended. Electronically authenticated by: Austin VENTURA Date: 10/21/2023 01:47
[2023-10-21] MEDS: POTASSIUM CHLORIDE 10 MEQ ER TABLET 20 MEQ PO (00:46)
== END 2023-10-21 01:37 | disposition home or self-care (01) ==
PROVIDERS: Emergency Provider Emergency Medicine
DX: E87.6 Hypokalemia (principal); M54.6 Pain in thoracic spine; F17.210 Nicotine dependence, cigarettes, uncomplicated; Z79.899 Other long term (current) drug therapy
CPT/HCPCS: 36415; 72070; 72072; 80053; 85025; 85378; 93005; 99285

== ENCOUNTER 2023-12-20 17:11 | Emergency (ER) | payer MEDICAID, SELFPAY ==
[2023-12-20 17:22] VITALS: BP 110/69; PULSE 78; TEMP 36.8; O2SAT 96; BMI 24.0
--- NOTE | 2023-12-20 17:26 | XR_ITS ---
The [address] [address] Patient Name: ZIGGY SANCHEZ MRN: [id number] date: 1975 Sex: F Assigned Patient Location: ER Current Patient Location: ER Accession/Order Number: [id number] Exam Date: 12/20/2023 17:35 Report Date: 12/20/2023 18:54 At the request of: KENDALL BOCANEGRA Procedure: XR shoulder RT min 2V EXAM: XR shoulder RT min 2V HISTORY: The patient is a 48-year-old female, pain COMPARISON: 11/21/2021. FINDINGS: There is what appears to be an Endobutton biceps tenodesis, and this is unchanged since the prior radiographs of 11/21/2021. The acromioclavicular joint continues to appear slightly widened, similar to that seen on the prior radiographs of 11/21/2021, and I suspect this represents a prior subacromial decompression. No fractures or dislocations are seen within or around the right shoulder. The glenohumeral joint is maintained. The subacromial space is maintained. There are no new findings. XR/XR shoulder RT min 2V IMPRESSION: No change since 11/21/2021. Electronically authenticated by: HERMILA JACOBS Date: 12/20/2023 18:54
--- OUTSIDE RECORDS SUMMARY | 2023-12-20 17:39 | XMS_ITS ---
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 Name Role Phone Cande Hinds Primary Care Physician Bree Jimenes Unavailable Unavailable [facility][1] Primary Care Provider ZANE Ruiz Attending Pr ovider [facility][1] Primary Care Provider ZANE Ruiz Attending Pr ovider ZANE Ruiz Attending Pr ovider [facility][1] Primary Care Provider MD Salvador Maier Jr Emergency Provider ZANE Ruiz Attending Pr ovider NON STAFF Primary Care Provider Unavailabl e [facility][1] Primary Care Provider [phone] MD Salvador Maier Jr Emergency Provider [facility] Primary Care Unavaila sindhu ROSE ., DR RICH Admitting Unavailable ROSE ., DR RIHC Attending Unavailable ROSE ., DR RICH Consulting Unavailable [facility] Primary Care Unavaila sindhu ANGELA, DR ADDY Arrington Admitting Unavailable COREEN, DR ADDY Arrington Attending Unavailable ROSALIA ARROYO Consulting Unavailable [facility] Primary Care Unavaila MU Bose Admitting Unavailable MU SHERWOOD Attending Dom BENITEZ, DR MILE Pedersen Consulting Unavailable PAY ., DR ARGUETA Consulting Unavailable MU SHERWOOD Consulting Unavailable LUDIN ANGELES Consulting Unavailable [facility] Primary Care Unavaila ble COREEN, DR ADDY Arrington Admitting Unavailable COREEN, DR ADDY Arrington Attending Unavailable COREEN, DR ADDY Arrington Consulting Unavailable IRENE VENTURA Consulting Unavailable [facility] Primary Care Unavaila ble MARKER ., DR GARCIA Admitting Unavailable MARKER ., DR GARCIA Attending Unavailable MARKER ., DR GARCIA Consulting Unavailable [facility] Primary Care Unavaila ble SHAWNA ., TREVOR Admitting Unavailable SHAWNA ., TREVOR Attending Unavailable SHAWNA ., TREVOR Consulting Unavailable [facility] Primary Care Unavaila ble SHAWNA ., TREVOR Admitting Unavailable SHAWNA ., TREVOR Attending Unavailable AYE ., CARISSA CAMP Consulting UnavailKAE Pelaez Consulting Unavailable Ramiro, ZANE Lerma Attending Pr ovider Adam ERICKSON Attending Unavailable Adam ERICKSON Attending Unavailable RUFINA RUIZ Referring Unavailable ANAID TREADWELL Attending Unavailab delaney Ruiz, ZANE Lerma Attending Pr ovider DAMIAN JOVEL Attending Unavailable Ramiro, ZANE Lerma Attending Pr ovider MORGAN Jovel Attending Provider Mast, DO Brian Attending Provider Unallocated, Noms Provider Primary Care Provider [facility][1] Primary Care Provider ZANE Ruiz Attending Pr ovider Mast - [facility]HS, Brian Admitting Unavailable Mast - [facility], Brian Attending Unavailable Pepe Guerra Referring Unavailable Rufina Ruiz Attending U [facility] Primary Care Unavaila sindhu Ruiz, Rufina Lerma Admitting U navailable Ramiro, Rufina Lerma Attending U navailable Ruiz, Rufina Lerma Admitting U navailable Ruiz, Rufina Lerma Attending U navailable Ramiro, Rufina Lerma Admitting U navailable Damian Jovel Admitting Unavailable Damian Jovel Attending Unavailable Allergies Allergy Classification Reported Allergen(s) Allergy Type Date of Onset Reaction(s) Facility (13 sources) Aspirin; Translations: [aspirin] Drug Allergy 12-17-19 21 vomiting, Nausea [facility] (14 sources) Haloperidol; Translations: [haloperidol] Drug Allergy 12-17-19 21 jaw locked sideways, Anaphylaxis [facility] (14 sources) hydrOXYzine; Translations: [hydroxyzine] Drug Allergy 12-17-19 21 rash, [facility] (3 sources) Ketorolac; Translations: [ketorolac] Drug Allergy migraines [facility] (13 sources) Magnesium Sulfate; Translations: [magnesium sulfate] Drug Allergy 12-17-19 21 vomiting [facility] (14 sources) metroNIDAZOLE; Translations: [metronidazole] Drug Allergy 12-17-19 21 vomiting, [facility] (14 sources) Naproxen; Translations: [naproxen] Drug Allergy 12-17-19 21 Other [facility] (4 sources) NSAIDs; Translations: [NSAIDs] Drug allergy 04-23-20 23 Other [facility] (4 sources) Sulfamethoxazole / Trimethoprim; Translations: [sulfamethoxazole-t rimethoprim] Drug Allergy 05-26-20 23 vomiting [facility] (11 sources) Sulfamethoxazole; Translations: [sulfamethoxazole] Drug Allergy 12-17-19 21 [facility] (11 sources) Trimethoprim; Translations: [trimethoprim] Drug Allergy 12-17-19 21 [facility] (11 sources) NSAIDS (Non-Steroidal Anti-Inflamma; Translations: [NSAIDS (Non-Steroidal Anti-Inflamma] Allergy to substance 12-17-19 21 [facility] (1 source) Aspirin Drug Allergy 10-08-19 15 [facility] (1 source) Haloperidol Drug Allergy 10-08-19 15 [facility] (1 source) hydrOXYzine Drug Allergy 09-14-19 16 [facility] (1 source) Iothalamate Drug Allergy 09-16-19 16 [facility] (1 source) Ketorolac Drug Allergy 09-14-19 16 [facility] (1 source) Magnesium Sulfate Drug Allergy 10-08-19 15 [facility] (1 source) metroNIDAZOLE Drug Allergy 10-08-19 15 [facility] (1 source) Naproxen Drug Allergy 10-08-19 15 [facility] (1 source) NSAIDs Drug allergy (disorder) 10-08-19 [facility] (1 source) Sulfonamides (Antibiotic) Drug allergy (disorder) 10-08-19 [facility] (1 source) Aluminum aspirin Drug Allergy 04-23-20 [facility] (1 source) Ketorolac Allergy to substance 05-26-20 [facility] (1 source) Ketorolac trometamol Propensity to adverse reactions 04-23-20 [facility] (1 source) Magnesium Salicylate Drug Allergy 05-26-20 Other [facility] (1 source) Magnesium sulfate Propensity to adverse reactions 04-23-20 [facility] (1 source) Metoclopramide Drug Allergy 04-23-20 [facility] (1 source) Penicillins Drug Allergy 05-26-20 [facility] (1 source) Sulfonamides (Antibiotic) Drug Allergy 05-26-20 [facility] (2 sources) Sulfacetamide; Translations: [sulfacetamide] Drug Allergy 10-16-19 [facility] (2 sources) Sulfur; Translations: [sulfur] Drug Allergy 10-16-19 [facility] (1 source) Aspirin Drug Allergy 07-22-19 [facility] (1 source) Haloperidol Drug Allergy 07-22-19 [facility] (1 source) hydrOXYzine Drug Allergy 07-22-19 [facility] (1 source) Magnesium Sulfate Drug Allergy 07-22-19 [facility] (1 source) metroNIDAZOLE Drug Allergy 07-22-19 [facility] (1 source) Naproxen Drug Allergy 07-22-19 [facility] Encounters Encounter Date Encounter Type Care Provider Facility Start: 09-28-2023 End: 09-28-2023 ambulatory Rufina Ruiz Facility:[facility] Start: 09-28-2023 End: 09-28-2023 ambulatory Services [facility] Work Phone: [facility] Work Phone: Start: 09-28-2023 End: 09-28-2023 Departed Referred Services [facility] Work Phone: [facility] Start: 08-26-2023 Chart abstracting Damian davis DPM Work Phone: [facility] Start: 06-29-2023 End: 06-29-2023 ambulatory Brian Mast - FHS Facility:[facility] Start: 06-29-2023 End: 06-29-2023 ambulatory DPM Damian Jovel Work Phone: [facility] Work Phone: Start: 06-29-2023 End: 06-29-2023 Departed Referred DPM Damian Jovel Work Phone: [facility] Start: 05-26-2023 End: 05-26-2023 ambulatory DAMIAN JOVEL [facility] Work Phone: Start: 05-26-2023 End: 05-26-2023 Departed Referred MEDICAL RECRUITER-C Rufina Ruiz Work Phone: [facility]-Lab Main [place] Work Phone: Start: 03-19-2023 End: 03-19-2023 ambulatory Rufina Ruiz Facility:[facility] Start: 03-19-2023 End: 03-19-2023 ambulatory MEDICAL RECRUITER-C Rufina Ruiz Work Phone: [facility] Work Phone: Start: 03-19-2023 End: 03-19-2023 Departed Referred MEDICAL RECRUITER-C Rufina Ruiz Work Phone: [facility] Start: 12-08-2022 End: 12-09-2022 ambulatory Adam ERICKSON Facility: [place] Start: 12-08-2022 End: 12-08-2022 Patient encounter procedure Adam ERICKSON [facility] Start: 11-16-2022 End: 11-16-2022 ambulatory Rufina Ruiz Facility:[facility] Start: 11-16-2022 End: 11-16-2022 ambulatory MEDICAL RECRUITER-C Rufina Ruiz Work Phone: [facility] Work Phone: Start: 11-16-2022 End: 11-16-2022 Departed Referred MEDICAL RECRUITER-C Rufina Ramiro Work Phone: [facility] [place] Work Phone: Start: 11-10-2022 ambulatory Adam R DRE Colei ty:[facility] [place] Start: 10-27-2022 End: 10-28-2022 ambulatory RUFINA RUIZ Facility:[facility] Start: 10-04-2022 End: 10-04-2022 ambulatory [facility] Facility: Start: 09-21-2022 End: 09-21-2022 ambulatory NON STAFF [facility] Work Phone: Start: 09-21-2022 End: 09-21-2022 Departed Referred MEDICAL RECRUITER-C Rufina Ruiz Work Phone: [facility] Start: 09-01-2022 ambulatory dAam ERICKSON Facility :[facility] [place] Start: 08-31-2022 End: 08-31-2022 Departed Referred MEDICAL RECRUITER-C Rufina Ruiz Work Phone: [facility] Start: 07-22-2022 End: 07-23-2022 Emergency department patient visit Services [facility] Work Phone: [facility]-Emergency Room Work Phone: Start: 07-21-2022 End: 07-21-2022 ambulatory [facility] Facility: Start: 07-20-2022 End: 07-20-2022 ambulatory MEDICAL RECRUITER-C Rufina Ruiz Work Phone: [facility] Work Phone: Start: 07-20-2022 End: 07-20-2022 Departed Referred MEDICAL RECRUITER-C Rufina Ruiz Work Phone: [facility] Start: 06-24-2022 End: 06-24-2022 ambulatory [facility] Facility:[facility] Start: 06-09-2022 End: 06-09-2022 ambulatory Services [facility] Work Phone: [facility] Work Phone: Start: 06-09-2022 End: 06-09-2022 Departed Referred Services [facility] Work Phone: [facility] Start: 04-14-2022 End: 04-14-2022 ambulatory Services [facility] Work Phone: [facility] Work Phone: Start: 04-14-2022 End: 04-14-2022 Departed Referred Services [facility] Work Phone: [facility] Start: 04-08-2022 End: 04-09-2022 ambulatory [facility] Facility:[facility] Start: 11-24-2021 End: 11-24-2021 ambulatory [facility] Facility:[facility] Start: 11-23-2021 End: 11-24-2021 Emergency department patient visit Venancio Orozco [facility] Start: 11-21-2021 End: 11-21-2021 ambulatory [facility] Facility:[facility] Start: 11-06-2021 End: 11-06-2021 ambulatory [facility] Facility:[facility] Medical Equipment Procedure Code Equipment Code Equipment Origin al Text Equipment Identifier Dates FDA Start: 05-30-2021 SHOULDER ARTHROS COPY W/ POSSIBLE REPAIR Michael Torres DO 05/30/21 Non Biological Shoulder R FDA Start: 05-30-2021 Medications Current Medications Medication Drug Class(es) Dates [...] constipation, # 20 cap(s), Refills(s) 0, Pharmacy: [facility] [id number], 156, cm, 05/21/21 5:13:00 [...] capsule Start: 05-20-2021 take 1 capsule by [facility] once daily FLUoxetine 40 mg Cap 40 [...] 8-10, # 4 cap(s), Refills(s) 0, Pharmacy: [facility] [id number], 155, cm, 06/08/21 8:15:00 [...] procedure, # 2 tab(s), Refills(s) 0, Pharmacy: [facility] [id number], 156, cm, 10/27/22 14:36:00 EDT, Height/Length Dosing, 62, kg, 10/27/22 14:36:00... Start Date: 11/27/22 Status: Ordered Start: 07-22-2022 take 250 mg by mouth once daily Ciprofloxacin Hcl Active 250 MG PO Daily July 22, 2022 1:00am Payers Date Payer Category Payer Unknown [id number] 2023 Medicaid [place] [id number] 2023-Present [address] [place] [address] [id number] 2022 Self-pay [id number] 1975 Unknown [id number] 2..[id number]. 593 1975 Unknown [id number] 2.16.840.1.686603.3.579.2. 593 1975 Unknown [id number] 2.16.840.1.305164.3.579.2. 593 1975 Unknown [id number] 2.16.840.1.902196.3.579.2. 593 1975 Unknown [id number] 2.16.840.1.262186.3.579.2. 593 1975 Unknown [id number] 2.16.840.1.264761.3.579.2. 593 1975 Unknown [id number] 2.16.840.1.237497.3.579.2. 593 1975 Unknown [id number] 2.16.840.1.025386.3.579.2. 727 1975 Unknown [id number] 2.16.840.1.172668.3.579.2. 727 1975 Unknown [id number] 2.16.840.1.641345.3.579.2. 727 1975 Unknown [id number] 2.16.840.1.233481.3.579.2. 727 1975 Unknown [id number] 2.16840.1.608669.3.579.2. 1259 1957 Medicaid [id number] 1957 Medicaid [id number] Private Health Insurance [facility] [id number] Unknown [id number] [id number]. 531 Unknown [id number] 2.16840.1.870450.3.579.2. 531 Unknown [id number] 2.16840.1.000171.3.579.2. 531 Unknown [id number] 2.16840.1.334614.3.579.2. 531 Unknown [id number] [id number]. 531 Plan of Treatment Date Care Activity Detail Author Start: 09-28-2023 Bacteria identified in Urine by Culture Urine Culture [facility] Start: 08-26-2023 End: 08-26-2023 Patient encounter procedure 08/26/2023 9:00 AM EST Procedure Visit [facility] [address] [place] [phone] Damian Jovel DPM [address] [place] [address] [facility] Start: 06-29-2023 Bacteria identified in Urine by Culture [facility] Start: 05-26-2023 Superficial Wound Culture Superficial Wound Culture [facility] Start: 07-22-2022 Computed tomography of abdomen and pelvis with contrast CT abdomen pelvis w con [facility] Start: 07-22-2022 CT Abdomen and Pelvi s W contrast IV [facility] Start: 07-22-2022 US Gallbladder [facility] Start: 07-22-2022 US scan of gallbladder US gall bladd er [facility] Start: 07-20-2022 Bacteria identified in Urine by Culture Urine Culture [facility] Bacteria identified in Urine by Culture [facility] Patient Education Abdominal Pain , Adult ED [facility] Work Phone: Patient referral [facility] Work Phone: Problems Active Problems Problem Classification Problem Date [...] of other specified B group vitamins] Onset: 11-16-2022 Episodic Other aftercare (1 source) 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; Translations: [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] Onset: 07-23-2022 Episodic Other [...] Translations: [VIRAL INFECTION UNSPECIFIED] Onset: 06-26-2022 Episodic Procedures Date Procedure Procedure Detail Performing Clinician Start: 05-26-2023 Aerobic microbial culture MORGAN Jovel Work Phone: Start: 08-31-2022 Urine culture MEDICAL RECRUITER-C Larissa Ruiz Work Phone: Start: 07-22-2022 Computed tomography of abdomen and pelvis with contrast MEDICAL RECRUITER-C Rufina Ruiz Work Phone: Start: 07-22-2022 US scan of gallbladder MEDICAL RECRUITER-C Rufina Ruiz Work Phone: Start: 07-20-2022 Urine culture Services [facility] Work Phone: Start: 06-09-2022 Urine culture MEDICAL RECRUITER-C Larissa Ruiz Work Phone: Start: 05-30-2021 Arthroscopy of shoulder Venancio Orozco Urine culture Services [facility] Work Phone: Vaginal hysterectomy Venancio knox Results Test Name Value Interpretation Reference Range Facility Alanine aminotransferase [En zymatic activity/volume] in Serum or PlasmaOrdered By: Rufina Ruiz on 09-28-2023 ALT [Catalytic activity/Vol] 7 U/L 7-52 [facility] Albumin [Mass/volume] in Ser um or Plasma by Bromocresol green (BCG) dye binding methoOrdered By: Rufina Ruiz on 09-28-2023 Albumin BCG dye [Mass/Vol] 4.9 g/dL 3.5-5.7 [facility] Alkaline phosphatase [Enzyma tic activity/volume] in Serum or PlasmaOrdered By: Rufina Ruiz on 09-28-2023 ALP [Catalytic activity/Vol] 100 U/L 34-104 [facility] Aspartate aminotransferase [ Enzymatic activity/volume] in Serum or PlasmaOrdered By: Rufina Ruiz on 09-28-2023 AST [Catalytic activity/Vol] 11 U/L 13-39 [facility] Bilirubin.total [Mass/volume ] in Serum or PlasmaOrdered By: Rufina Ruiz on 09-28-2023 Bilirubin [Mass/Vol] 0.3 mg/dL 0.3-1.0 [facility] Calcium [Mass/volume] in Ser um or PlasmaOrdered By: Rufina Ruiz on 09-28-2023 Calcium [Mass/Vol] 9.7 mg/dL 8.6-10.3 [facility] Carbon dioxide, total [Moles /volume] in Serum or PlasmaOrdered By: Rufina Ruiz on 09-28-2023 CO2 [Moles/Vol] 29.3 mmol/L 21.0-31.0 [facility] Chloride [Moles/volume] in S siddhartha or PlasmaOrdered By: Rufina Ruiz on 09-28-2023 Chloride [Moles/Vol] 107 mmol/L 98-107 [facility] Comprehensive Metabolic Pane louise 09-28-2023 Albumin [Mass/Vol] 4.9 g/dL Normal 3.5-5.7 [facility] Comment on above: Order Comment: Reaso n for Exam Bipolar disorder Performed By: #### L IPID, ALOK, FE and TIBC, THYROID SC, CBC, CMP, [id number] #### [facility] [address] Albumin/Globulin [Mass ratio] 2.2 {ratio} Normal [facility] Comment on above: Order Comment: Reaso n for Exam Bipolar disorder Performed By: #### L IPID, ALOK, FE and TIBC, THYROID SC, CBC, CMP, [id number] #### [facility] [address] ALP [Catalytic activity/Vol] 100 U/L Normal 34-104 [facility] Comment on above: Order Comment: Reaso n for Exam Bipolar disorder Performed By: #### L IPID, ALOK, FE and TIBC, THYROID SC, CBC, CMP, [id number] #### [facility] [address] [place] [id number] [facility] ALT [Catalytic activity/Vol] 7 U/L Normal 7-52 [facility] Comment on above: Order Comment: Reaso n for Exam Bipolar disorder Performed By: #### L IPID, ALOK, FE and TIBC, THYROID SC, CBC, CMP, [id number] #### [facility] [address] [place] [address] [place] Anion gap [Moles/Vol] 8.6 mmol/L Normal 6.0-15.0 [facility] Comment on above: Order Comment: Reaso n for Exam Bipolar disorder Performed By: #### L IPID, ALOK, FE and TIBC, THYROID SC, CBC, CMP, [id number] #### [address] AST [Catalytic activity/Vol] 11 U/L Low 13-39 [facility] Comment on above: Order Comment: Reaso n for Exam Bipolar disorder Performed By: #### L IPID, ALOK, FE and TIBC, THYROID SC, CBC, CMP, [id number] #### [address] Bilirubin [Mass/Vol] 0.3 mg/dL Normal 0.3-1.0 [facility] Comment on above: Order Comment: Reaso n for Exam Bipolar disorder Performed By: #### L IPID, ALOK, FE and TIBC, THYROID SC, CBC, CMP, [id number] #### [address] Calcium [Mass/Vol] 9.7 mg/dL Normal 8.6-10.3 [facility] Comment on above: Order Comment: Reaso n for Exam Bipolar disorder Performed By: #### L IPID, ALOK, FE and TIBC, THYROID SC, CBC, CMP, [id number] #### [address] Chloride [Moles/Vol] 107 mmol/L Normal 98-107 [facility] Comment on above: Order Comment: Reaso n for Exam Bipolar disorder Performed By: #### L IPID, ALOK, FE and TIBC, THYROID SC, CBC, CMP, [id number] #### [address] CO2 [Moles/Vol] 29.3 mmol/L Normal 21.0-31.0 [facility] Comment on above: Order Comment: Reaso n for Exam Bipolar disorder Performed By: #### L IPID, ALOK, FE and TIBC, THYROID SC, CBC, CMP, [id number] #### [address] Creatinine [Mass/Vol] 0.60 mg/dL Normal 0.60-1.20 [facility] Comment on above: Order Comment: Reaso n for Exam Bipolar disorder Performed By: #### L IPID, ALOK, FE and TIBC, THYROID SC, CBC, CMP, [id number] #### [address] GFR/1.73 sq M.predicted MDRD (S/P/Bld) [Vol rate/Area] mL/min/{1.73_m2} Normal [facility] Comment on above: Order Comment: Reaso n for Exam Bipolar disorder Performed By: #### L IPID, ALOK, FE and TIBC, THYROID SC, CBC, CMP, [id number] #### [address] Globulin (S) [Mass/Vol] 2.2 g/dL Normal T [facility] Comment on above: Order Comment: Reaso n for Exam Bipolar disorder Performed By: #### L IPID, ALOK, FE and TIBC, THYROID SC, CBC, CMP, [id number] #### [address] Glucose [Mass/Vol] 90 mg/dL Normal 70-100 [facility] Comment on above: Order Comment: Reaso n for Exam Bipolar disorder Result Comment: [facility] Glucose Reference Range is dependent on time and content of last meal. Glucose of more than 200 mg/dL in a nonstressed, ambulatory subject supports the diagnosis of Diabetes Mellitus. ADA recommended reference range Performed By: #### L IPID, ALOK, FE and TIBC, THYROID SC, CBC, CMP, [id number] #### [address] Potassium [Moles/Vol] 3.9 mmol/L Normal 3.5-5.1 [facility] Comment on above: Order Comment: Reaso n for Exam Bipolar disorder Performed By: #### L IPID, ALOK, FE and TIBC, THYROID SC, CBC, CMP, [id number] #### [facility] [address] Protein [Mass/Vol] 7.1 g/dL Normal 6.4-8.9 [facility] Comment on above: Order Comment: Reaso n for Exam Bipolar disorder Performed By: #### L IPID, ALOK, FE and TIBC, THYROID SC, CBC, CMP, [id number] #### [facility] [address] Sodium [Moles/Vol] 141 mmol/L Normal 136-145 [facility] Comment on above: Order Comment: Reaso n for Exam Bipolar disorder Performed By: #### L IPID, ALOK, FE and TIBC, THYROID SC, CBC, CMP, [id number] #### [address] Urea nitrogen [Mass/Vol] 10 mg/dL Normal 7-25 [facility] Comment on above: Order Comment: Reaso n for Exam Bipolar disorder Performed By: #### L IPID, ALOK, FE and TIBC, THYROID SC, CBC, CMP, [id number] #### [address] Creatinine [Mass/volume] in Serum or PlasmaOrdered By: Rufina Ruiz on 09-28-2023 Creatinine [Mass/Vol] 0.60 mg/dL 0.60-1.20 [facility] Ferritinon 09-28-2023 Ferritin [Mass/Vol] 72.4 ng/mL Normal 11.0-306.8 [facility] Comment on above: Order Comment: Reaso n for Exam Bipolar disorder Performed By: #### L IPID, ALOK, FE and TIBC, THYROID SC, CBC, CMP, [id number] #### [address] Ferritin [Mass/volume] in Se rum or PlasmaOrdered By: Rufina Ruiz on 09-28-2023 Ferritin [Mass/Vol] 72.4 ng/mL 11.0-306.8 [facility] Folate [Mass/volume] in Seru m or PlasmaOrdered By: Rufina Ruiz on 09-28-2023 Folate [Mass/Vol] 6.3 ng/mL >5.9 [facility] Comment on above: Folate reference ran ge: >5.9 ng/mlThe WHO technical consultation on folate and vitamin [id number] has determined that folate concentrations lessthan 4 ng/ml are considered deficient. Globulin Calc (S) [Mass/Vol] Ordered By: Rufina Ruiz on 09-28-2023 Globulin (S) [Mass/Vol] 2.2 g/dL [facility] Glucose [Mass/volume] in Ser um or PlasmaOrdered By: Rufina Ruiz on 09-28-2023 Glucose [Mass/Vol] 90 mg/dL 70-100 [facility] Comment on above: ADA recommended refe rence rangeRandom Glucose Reference Range is dependent on time and content of last meal. Glucose of more than 200 mg/dL in a nonstressed, ambulatory subject supports the diagnosis of Diabetes Mellitus. Iron [Mass/volume] in Serum or PlasmaOrdered By: Rufina Ruiz on 09-28-2023 Iron [Mass/Vol] 92 ug/dL 50-212 [facility] Iron and TIBC Profileon 09-09 % Iron Saturation 28.5 % Normal 20-50 [facility] Comment on above: Order Comment: Reaso n for Exam Bipolar disorder Performed By: #### L IPID, ALOK, FE and TIBC, THYROID SC, CBC, CMP, [id number] #### [facility] [address] Iron [Mass/Vol] 92 ug/dL Normal 50-212 [facility] Comment on above: Order Comment: Reaso n for Exam Bipolar disorder Performed By: #### L IPID, ALOK, FE and TIBC, THYROID SC, CBC, CMP, [id number] #### [facility] [address] [place] [id number] [facility] Total Iron Binding Capacity 323 ug/dL Normal 255-450 [facility] Comment on above: Order Comment: Reaso n for Exam Bipolar disorder Performed By: #### L IPID, ALOK, FE and TIBC, THYROID SC, CBC, CMP, [id number] #### [facility] [address] Transferrin [Mass/Vol] 231 mg/dL Normal 203-362 [facility] Comment on above: Order Comment: Reaso n for Exam Bipolar disorder Performed By: #### L IPID, ALOK, FE and TIBC, THYROID SC, CBC, CMP, [id number] #### [facility] [address] Iron binding capacity [Mass/ volume] in Serum or PlasmaOrdered By: Rufina Ruiz on 09-28-2023 Iron binding capacity [Mass/Vol] 323 ug/dL 255-450 [facility] Iron saturation [Mass Fracti on] in Serum or PlasmaOrdered By: Rufina Ruiz on 09-28-2023 Iron saturation [Mass fraction] 28.5 % 20-50 [facility] No Panel InformationOrdered By: Rufina Ruiz on 09-28-2023 Estimated GFR (CKD-EPI) > 60.0 mL/Min [facility] Creatinine Clearance (Chem N/A [facility] Potassium [Moles/volume] in Serum or PlasmaOrdered By: Rufina Ruiz on 09-28-2023 Potassium [Moles/Vol] 3.9 mmol/L 3.5-5.1 [facility] Protein [Mass/volume] in Ser um or PlasmaOrdered By: Rufina Ruiz on 09-28-2023 Protein [Mass/Vol] 7.1 g/dL 6.4-8.9 [facility] Serum or plasma albumin/glob ulin mass ratioOrdered By: Rufina Ruiz on 09-28-2023 Albumin/Globulin [Mass ratio] 2.2 {ratio} [facility] Serum or plasma anion gap de terminationOrdered By: Rufina Ruiz on 09-28-2023 Anion gap [Moles/Vol] 8.6 mmol/L 6.0-15.0 [facility] Sodium [Moles/volume] in Ser um or PlasmaOrdered By: Rufina Ruiz on 09-28-2023 Sodium [Moles/Vol] 141 mmol/L 136-145 [facility] THYROID SCREENon 09-28-2023 Free T4 [Mass/Vol] 0.86 ng/dL Normal 0.61-1.12 [facility] Comment on above: Order Comment: Reaso n for Exam Bipolar disorder Performed By: #### L IPID, ALOK, FE and TIBC, THYROID SC, CBC, CMP, [id number] #### [facility] [address] TSH Qn 2.58 m[IU]/L Normal 0.45-5.33 [facility] Comment on above: Order Comment: Reaso n for Exam Bipolar disorder Result Comment: PERF ORMED BY: [place] [address] PATHOLOGIST CLINICAL REVIEW NURSE MARINE WARD M.D. Performed By: #### L IPID, ALOK, FE and TIBC, THYROID SC, CBC, CMP, [id number] #### [facility] [address] Thyrotropin [Units/volume] i n Serum or PlasmaOrdered By: Rufina Ruiz on 09-28-2023 TSH Qn 2.58 m[IU]/L 0.45-5.33 [facility] Thyroxine (T4) free [Mass/vo lume] in Serum or PlasmaOrdered By: Rufina Ruiz on 09-28-2023 Free T4 [Mass/Vol] 0.86 ng/dL 0.61-1.12 [facility] Transferrin [Mass/volume] in Serum or PlasmaOrdered By: Rufina Ruiz on 09-28-2023 Transferrin [Mass/Vol] 231 mg/dL 203-362 [facility] Urea nitrogen [Mass/volume] in Serum or PlasmaOrdered By: Rufina Ruiz on 09-28-2023 Urea nitrogen [Mass/Vol] 10 mg/dL 7-25 [facility] Urine Cultureon 09-28-2023 Bacteria identified Cx Nom (U) Reason for Exam Dysuria;History of kidney stones Urine Reason for Exam: Dysuria;History of kidney stones : Urine 20,000 colonies/ml mixed bacterial skin contaminants 2 Days PERFORMED BY: [place] [address] PATHOLOGIST CLINICAL REVIEW NURSE MARINE WARD M.D. Normal [facility] Comment on above: Performed By: #### L IPID, ALOK, FE and TIBC, THYROID SC, CBC, CMP, [id number] #### [address] Vit. B12/Folate Profileon Cobalamin (Vitamin B12) [Mass/Vol] 6683 pg/mL High 180-914 [facility] Comment on above: Order Comment: Reaso n for Exam Bipolar disorder Performed By: #### L IPID, ALOK, FE and TIBC, THYROID SC, CBC, CMP, [id number] #### [address] Folate 6.3 ng/mL Normal >5.9 [facility] Comment on above: Order Comment: Reaso n for Exam Bipolar disorder Result Comment: Senait te reference range: >5.9 ng/ml The WHO technical consultation on folate and vitamin b12 deficiencies has determined that folate concentrations less than 4 ng/ml are considered deficient. Performed By: #### L IPID, ALOK, FE and TIBC, THYROID SC, CBC, CMP, [id number] #### [address] Vitamin B12 ser/plasOrdered By: Rufina Ruiz on 09-28-2023 Cobalamin (Vitamin B12) [Mass/Vol] 6683 pg/mL 180-914 [facility] Urine Cultureon 06-29-2023 Bacteria identified Cx Nom (U) 15,000 colonies/ml mixed bacterial skin contaminants 2 Days PERFORMED BY: [place] [address] PATHOLOGIST CLINICAL REVIEW NURSE MARINE Portillo [facility] Comment on above: Performed By: #### C UU #### [address] Aerobic cultureOrdered By: Kingsley Jovel on 05-26-2023 Bacteria identified Aer cx Nom (Unsp spec) 2 Days [facility] Superficial Wound Cultureon 05-26-2023 Superficial Wound Culture Ingrowing nail Light Normal Skin Kacey 2 Days PERFORMED BY: [place] [id number] PATHOLOGIST CLINICAL REVIEW NURSE MARINE WARD M.D. Normal [facility] Comment on above: Performed By: #### C USUP #### [address] Alanine aminotransferase [En zymatic activity/volume] in Serum or PlasmaOrdered By: Rufina Ruiz on 03-19-2023 ALT [Catalytic activity/Vol] 7 U/L 7-52 [facility] Albumin [Mass/volume] in Ser um or Plasma by Bromocresol green (BCG) dye binding methoOrdered By: Rufina Ruiz on 03-19-2023 Albumin BCG dye [Mass/Vol] 4.3 g/dL 3.5-5.7 [facility] Alkaline phosphatase [Enzyma tic activity/volume] in Serum or PlasmaOrdered By: Rufina Ruiz on 03-19-2023 ALP [Catalytic activity/Vol] 100 U/L 34-104 [facility] Aspartate aminotransferase [ Enzymatic activity/volume] in Serum or PlasmaOrdered By: Rufina Ruiz on 03-19-2023 AST [Catalytic activity/Vol] 10 U/L 13-39 [facility] Basophils Auto (Bld) [#/Vol] Ordered By: Rufina Ruiz on 03-19-2023 Basophils (Bld) [#/Vol] 0.0 10*3/uL 0.0-0.2 [facility] Basophils/100 WBC Auto (Bld) Ordered By: Rufina Ruiz on 03-19-2023 Basophils/100 WBC (Bld) 0.4 % . F [facility] Bilirubin.total [Mass/volume ] in Serum or PlasmaOrdered By: Rufina Ruiz on 03-19-2023 Bilirubin [Mass/Vol] 0.3 mg/dL 0.3-1.0 [facility] Calcium [Mass/volume] in Ser um or PlasmaOrdered By: Rufina Ruiz on 03-19-2023 Calcium [Mass/Vol] 9.6 mg/dL 8.6-10.3 [facility] Carbon dioxide, total [Moles /volume] in Serum or PlasmaOrdered By: Rufina Ruiz on 03-19-2023 CO2 [Moles/Vol] 29.4 mmol/L 21.0-31.0 [facility] Chloride [Moles/volume] in S sidhdartha or PlasmaOrdered By: Rufina Ruiz on 03-19-2023 Chloride [Moles/Vol] 108 mmol/L 98-107 [facility] Cholesterol [Mass/volume] in Serum or PlasmaOrdered By: Rufina Ruiz on 03-19-2023 Cholesterol [Mass/Vol] 164 mg/dL 140-200 [facility] Comment on above: Chol less than 200 m g/dl low riskChol 201-239 mg/dl borderline riskChol 240 mg/dl and greater high risk Cholesterol in LDL Calc [Mas s/Vol]Ordered By: Rufina Ruiz on 03-19-2023 Cholesterol in LDL [Mass/Vol] 84 mg/dL 0-100 [facility] Comment on above: LDL ATP III CLASSIFI CATIONLDL less than 100 mg/dL OptimalLDL 100-129 mg/dL Near or above optimalLDL 130-159 mg/dL Borderline highLDL 160-189 mg/dL HighLDL greater than 189 mg/dL Very high Cholesterol in VLDL Calc [Ma ss/Vol]Ordered By: Rufina Ruiz on 03-19-2023 Cholesterol in VLDL [Mass/Vol] 19 mg/dL [facility] Complete Blood Count Auto Di ffon 03-19-2023 Basophils (Bld) [#/Vol] 0.0 10*3/uL Normal 0.0-0.2 [facility] Comment on above: Order Comment: Reaso n for Exam Bipolar disorder Result Comment: PERF ORMED BY: [facility] [address] [place] [address] PATHOLOGIST CLINICAL REVIEW NURSE MARINE WARD M.D. Performed By: #### L IPID, ALOK, FE and TIBC, THYROID SC, CBC, CMP, [id number] #### [address] Basophils/100 WBC (Bld) 0.4 % Normal . T meenakshi [facility] Comment on above: Order Comment: Reaso n for Exam Bipolar disorder Performed By: #### L IPID, ALOK, FE and TIBC, THYROID SC, CBC, CMP, [id number] #### [address] Eosinophils (Bld) [#/Vol] 0.1 10*3/uL Normal 0.0-0.45 [facility] Comment on above: Order Comment: Reaso n for Exam Bipolar disorder Performed By: #### L IPID, ALOK, FE and TIBC, THYROID SC, CBC, CMP, [id number] #### [address] Eosinophils/100 WBC (Bld) 1.5 % Normal . [facility] Comment on above: Order Comment: Reaso n for Exam Bipolar disorder Performed By: #### L IPID, ALOK, FE and TIBC, THYROID SC, CBC, CMP, [id number] #### [address] Erythrocyte distribution width (RBC) [Ratio] 13.7 % Normal 11.9-15.3 [facility] Comment on above: Order Comment: Reaso n for Exam Bipolar disorder Performed By: #### L IPID, ALOK, FE and TIBC, THYROID SC, CBC, CMP, [id number] #### [address] Hematocrit (Bld) [Volume fraction] 39.9 % Normal 34.0-46.4 [facility] Comment on above: Order Comment: Reaso n for Exam Bipolar disorder Performed By: #### L IPID, ALOK, FE and TIBC, THYROID SC, CBC, CMP, [id number] #### [address] Hemoglobin (Bld) [Mass/Vol] 13.3 g/dL Normal 11.8-15.4 [facility] Comment on above: Order Comment: Reaso n for Exam Bipolar disorder Performed By: #### L IPID, ALOK, FE and TIBC, THYROID SC, CBC, CMP, [id number] #### [address] Lymphocytes (Bld) [#/Vol] 2.4 10*3/uL Normal 1.00-4.8 [facility] Comment on above: Order Comment: Reaso n for Exam Bipolar disorder Performed By: #### L IPID, ALOK, FE and TIBC, THYROID SC, CBC, CMP, [id number] #### [address] Lymphocytes/100 WBC (Bld) 25.6 % Normal . [facility] Comment on above: Order Comment: Reaso n for Exam Bipolar disorder Performed By: #### L IPID, ALOK, FE and TIBC, THYROID SC, CBC, CMP, [id number] #### [address] MCH (RBC) [Entitic mass] 30.3 pg Normal 24.7-34.3 [facility] Comment on above: Order Comment: Reaso n for Exam Bipolar disorder Performed By: #### L IPID, ALOK, FE and TIBC, THYROID SC, CBC, CMP, [id number] #### [address] MCV (RBC) [Entitic vol] 91.1 fL Normal 80-100 [facility] Comment on above: Order Comment: Reaso n for Exam Bipolar disorder Performed By: #### L IPID, ALOK, FE and TIBC, THYROID SC, CBC, CMP, [id number] #### [address] Mean Corpuscular HGB Conc 33.3 g/dL Normal 32.0-35.0 [facility] Comment on above: Order Comment: Reaso n for Exam Bipolar disorder Performed By: #### L IPID, ALOK, FE and TIBC, THYROID SC, CBC, CMP, [id number] #### [address] Monocytes (Bld) [#/Vol] 0.7 10*3/uL Normal 0.0-0.8 [facility] Comment on above: Order Comment: Reaso n for Exam Bipolar disorder Performed By: #### L IPID, ALOK, FE and TIBC, THYROID SC, CBC, CMP, [id number] #### [address] Monocytes/100 WBC (Bld) 7.1 % Normal . T [facility] Comment on above: Order Comment: Reaso n for Exam Bipolar disorder Performed By: #### L IPID, ALOK, FE and TIBC, THYROID SC, CBC, CMP, [id number] #### [address] Neutrophils (Bld) [#/Vol] 6.2 10*3/uL Normal 1.8-7.7 [facility] Comment on above: Order Comment: Reaso n for Exam Bipolar disorder Performed By: #### L IPID, ALOK, FE and TIBC, THYROID SC, CBC, CMP, [id number] #### [address] Neutrophils/100 WBC (Bld) 65.4 % Normal . [facility] Comment on above: Order Comment: Reaso n for Exam Bipolar disorder Performed By: #### L IPID, ALOK, FE and TIBC, THYROID SC, CBC, CMP, [id number] #### [address] NRBC% 0.2 /100{WBC} Normal 0-0.5 [facility] Comment on above: Order Comment: Reaso n for Exam Bipolar disorder Performed By: #### L IPID, ALOK, FE and TIBC, THYROID SC, CBC, CMP, [id number] #### [address] Platelet mean volume (Bld) [Entitic vol] 10.4 fL Normal 6.3-10.7 [facility] Comment on above: Order Comment: Reaso n for Exam Bipolar disorder Performed By: #### L IPID, ALOK, FE and TIBC, THYROID SC, CBC, CMP, [id number] #### [facility] [address] Platelets (Bld) [#/Vol] 179 10*3/uL Normal 150-450 [facility] Comment on above: Order Comment: Reaso n for Exam Bipolar disorder Performed By: #### L IPID, ALOK, FE and TIBC, THYROID SC, CBC, CMP, [id number] #### [facility] [address] RBC (Bld) [#/Vol] 4.38 10*6/uL Normal 3.60-5.00 [facility] Comment on above: Order Comment: Reaso n for Exam Bipolar disorder Performed By: #### L IPID, ALOK, FE and TIBC, THYROID SC, CBC, CMP, [id number] #### [address] WBC (Bld) [#/Vol] 9.6 10*3/uL Normal 3.8-11.6 [facility] Comment on above: Order Comment: Reaso n for Exam Bipolar disorder Performed By: #### L IPID, ALKO, FE and TIBC, THYROID SC, CBC, CMP, [id number] #### [address] Comprehensive Metabolic Pane louise 03-19-2023 Albumin [Mass/Vol] 4.3 g/dL Normal 3.5-5.7 [facility] Comment on above: Order Comment: Reaso n for Exam Bipolar disorder Reason for Exam Restless leg syndrome Reason for Exam Tobacco use;Bipolar disorder Reason for Exam Vitamin B 12 deficiency Performed By: #### L IPID, ALOK, FE and TIBC, THYROID SC, CBC, CMP, [id number] #### [address] Albumin/Globulin [Mass ratio] 2.0 {ratio} Normal [facility] Comment on above: Order Comment: Reaso n for Exam Bipolar disorder Reason for Exam Restless leg syndrome Reason for Exam Tobacco use;Bipolar disorder Reason for Exam Vitamin B 12 deficiency Performed By: #### L IPID, ALOK, FE and TIBC, THYROID SC, CBC, CMP, [id number] #### [facility] [address] ALP [Catalytic activity/Vol] 100 U/L Normal 34-104 [facility] Comment on above: Order Comment: Reaso n for Exam Bipolar disorder Reason for Exam Restless leg syndrome Reason for Exam Tobacco use;Bipolar disorder Reason for Exam Vitamin B 12 deficiency Performed By: #### L IPID, ALOK, FE and TIBC, THYROID SC, CBC, CMP, [id number] #### [facility] [address] ALT [Catalytic activity/Vol] 7 U/L Normal 7-52 [facility] Comment on above: Order Comment: Reaso n for Exam Bipolar disorder Reason for Exam Restless leg syndrome Reason for Exam Tobacco use;Bipolar disorder Reason for Exam Vitamin B 12 deficiency Performed By: #### L IPID, ALOK, FE and TIBC, THYROID SC, CBC, CMP, [id number] #### [address] Anion gap [Moles/Vol] 6.2 mmol/L Normal 6.0-15.0 [facility] Comment on above: Order Comment: Reaso n for Exam Bipolar disorder Reason for Exam Restless leg syndrome Reason for Exam Tobacco use;Bipolar disorder Reason for Exam Vitamin B 12 deficiency Performed By: #### L IPID, ALOK, FE and TIBC, THYROID SC, CBC, CMP, [id number] #### [facility] [address] AST [Catalytic activity/Vol] 10 U/L Low 13-39 [facility] Comment on above: Order Comment: Reaso n for Exam Bipolar disorder Reason for Exam Restless leg syndrome Reason for Exam Tobacco use;Bipolar disorder Reason for Exam Vitamin B 12 deficiency Performed By: #### L IPID, ALOK, FE and TIBC, THYROID SC, CBC, CMP, [id number] #### [facility] [address] [place] [address] [place] Bilirubin [Mass/Vol] 0.3 mg/dL Normal 0.3-1.0 [facility] Comment on above: Order Comment: Reaso n for Exam Bipolar disorder Reason for Exam Restless leg syndrome Reason for Exam Tobacco use;Bipolar disorder Reason for Exam Vitamin B 12 deficiency Performed By: #### L IPID, ALOK, FE and TIBC, THYROID SC, CBC, CMP, [id number] #### [facility] [address] Calcium [Mass/Vol] 9.6 mg/dL Normal 8.6-10.3 [facility] Comment on above: Order Comment: Reaso n for Exam Bipolar disorder Reason for Exam Restless leg syndrome Reason for Exam Tobacco use;Bipolar disorder Reason for Exam Vitamin B 12 deficiency Performed By: #### L IPID, ALOK, FE and TIBC, THYROID SC, CBC, CMP, [id number] #### [facility] [address] Chloride [Moles/Vol] 108 mmol/L High 98-107 [facility] Comment on above: Order Comment: Reaso n for Exam Bipolar disorder Reason for Exam Restless leg syndrome Reason for Exam Tobacco use;Bipolar disorder Reason for Exam Vitamin B 12 deficiency Performed By: #### L IPID, ALOK, FE and TIBC, THYROID SC, CBC, CMP, [id number] #### [address] CO2 [Moles/Vol] 29.4 mmol/L Normal 21.0-31.0 [facility] Comment on above: Order Comment: Reaso n for Exam Bipolar disorder Reason for Exam Restless leg syndrome Reason for Exam Tobacco use;Bipolar disorder Reason for Exam Vitamin B 12 deficiency Performed By: #### L IPID, ALOK, FE and TIBC, THYROID SC, CBC, CMP, [id number] #### [facility] [address] Creatinine [Mass/Vol] 0.74 mg/dL Normal 0.60-1.20 [facility] Comment on above: Order Comment: Reaso n for Exam Bipolar disorder Reason for Exam Restless leg syndrome Reason for Exam Tobacco use;Bipolar disorder Reason for Exam Vitamin B 12 deficiency Performed By: #### L IPID, ALOK, FE and TIBC, THYROID SC, CBC, CMP, [id number] #### [facility] [address] GFR/1.73 sq M.predicted MDRD (S/P/Bld) [Vol rate/Area] mL/min/{1.73_m2} Normal [facility] Comment on above: Order Comment: Reaso n for Exam Bipolar disorder Reason for Exam Restless leg syndrome Reason for Exam Tobacco use;Bipolar disorder Reason for Exam Vitamin B 12 deficiency Performed By: #### L IPID, ALOK, FE and TIBC, THYROID SC, CBC, CMP, [id number] #### [facility] [address] Globulin (S) [Mass/Vol] 2.1 g/dL Normal T he [facility] Comment on above: Order Comment: Reaso n for Exam Bipolar disorder Reason for Exam Restless leg syndrome Reason for Exam Tobacco use;Bipolar disorder Reason for Exam Vitamin B 12 deficiency Performed By: #### L IPID, ALOK, FE and TIBC, THYROID SC, CBC, CMP, [id number] #### [facility] [address] Glucose [Mass/Vol] 94 mg/dL Normal 70-100 [facility] Comment on above: Order Comment: Reaso n for Exam Bipolar disorder Reason for Exam Restless leg syndrome Reason for Exam Tobacco use;Bipolar disorder Reason for Exam Vitamin B 12 deficiency Result Comment: [facility] Glucose Reference Range is dependent on time and content of last meal. Glucose of more than 200 mg/dL in a nonstressed, ambulatory subject supports the diagnosis of Diabetes Mellitus. ADA recommended reference range Performed By: #### L IPID, ALOK, FE and TIBC, THYROID SC, CBC, CMP, [id number] #### [facility] [address] Potassium [Moles/Vol] 4.6 mmol/L Normal 3.5-5.1 [facility] Comment on above: Order Comment: Reaso n for Exam Bipolar disorder Reason for Exam Restless leg syndrome Reason for Exam Tobacco use;Bipolar disorder Reason for Exam Vitamin B 12 deficiency Performed By: #### L IPID, ALOK, FE and TIBC, THYROID SC, CBC, CMP, [id number] #### [facility] [address] Protein [Mass/Vol] 6.4 g/dL Normal 6.4-8.9 [facility] Comment on above: Order Comment: Reaso n for Exam Bipolar disorder Reason for Exam Restless leg syndrome Reason for Exam Tobacco use;Bipolar disorder Reason for Exam Vitamin B 12 deficiency Performed By: #### L IPID, ALOK, FE and TIBC, THYROID SC, CBC, CMP, [id number] #### [facility] [address] Sodium [Moles/Vol] 139 mmol/L Normal 136-145 [facility] Comment on above: Order Comment: Reaso n for Exam Bipolar disorder Reason for Exam Restless leg syndrome Reason for Exam Tobacco use;Bipolar disorder Reason for Exam Vitamin B 12 deficiency Performed By: #### L IPID, ALOK, FE and TIBC, THYROID SC, CBC, CMP, [id number] #### [facility] [address] [place] [address] Urea nitrogen [Mass/Vol] 7 mg/dL Normal 7-25 [facility] Comment on above: Order Comment: Reaso n for Exam Bipolar disorder Reason for Exam Restless leg syndrome Reason for Exam Tobacco use;Bipolar disorder Reason for Exam Vitamin B 12 deficiency Performed By: #### L IPID, ALOK, FE and TIBC, THYROID SC, CBC, CMP, [id number] #### [facility] [address] [place] [address] Creatinine [Mass/volume] in Serum or PlasmaOrdered By: Rufina Ruiz on 03-19-2023 Creatinine [Mass/Vol] 0.74 mg/dL 0.60-1.20 [facility] Eosinophils Auto (Bld) [#/Vo l]Ordered By: Rufina Ruiz on 03-19-2023 Eosinophils (Bld) [#/Vol] 0.1 10*3/uL 0.0-0.45 [facility] Eosinophils/100 WBC Auto (Bl d)Ordered By: Rufina Ruiz on 03-19-2023 Eosinophils/100 WBC (Bld) 1.5 % . [facility] Erythrocyte distribution wid th Auto (RBC) [Ratio]Ordered By: Rufina Ruiz on 03-19-2023 Erythrocyte distribution width (RBC) [Ratio] 13.7 % 11.9-15.3 [facility] Ferritinon 03-19-2023 Ferritin [Mass/Vol] 58.3 ng/mL Normal 11.0-306.8 [facility] Comment on above: Order Comment: Reaso n for Exam Bipolar disorder Reason for Exam Restless leg syndrome Reason for Exam Tobacco use;Bipolar disorder Reason for Exam Vitamin B 12 deficiency Performed By: #### L IPID, ALOK, FE and TIBC, THYROID SC, CBC, CMP, [id number] #### [address] Ferritin [Mass/volume] in Se rum or PlasmaOrdered By: Rufina Ruiz on 03-19-2023 Ferritin [Mass/Vol] 58.3 ng/mL 11.0-306.8 [facility] Folate [Mass/volume] in Seru m or PlasmaOrdered By: Rufina Ruiz on 03-19-2023 Folate [Mass/Vol] 5.7 ng/mL >5.9 [facility] Comment on above: Folate reference ran ge: >5.9 ng/mlThe WHO technical consultation on folate and vitamin [id number] has determined that folate concentrations lessthan 4 ng/ml are considered deficient. Globulin Calc (S) [Mass/Vol] Ordered By: Rufina Ruiz on 03-19-2023 Globulin (S) [Mass/Vol] 2.1 g/dL [facility] Glucose [Mass/volume] in Ser um or PlasmaOrdered By: Rufina Ruiz on 03-19-2023 Glucose [Mass/Vol] 94 mg/dL 70-100 [facility] Comment on above: ADA recommended refe rence rangeRandom Glucose Reference Range is dependent on time and content of last meal. Glucose of more than 200 mg/dL in a nonstressed, ambulatory subject supports the diagnosis of Diabetes Mellitus. Hematocrit Auto (Bld) [Volum e fraction]Ordered By: Rufina Ruiz on 03-19-2023 Hematocrit (Bld) [Volume fraction] 39.9 % 34.0-46.4 [facility] Hemoglobin [Mass/volume] in BloodOrdered By: Rufina Ruiz on 03-19-2023 Hemoglobin (Bld) [Mass/Vol] 13.3 g/dL 11.8-15.4 [facility] Iron [Mass/volume] in Serum or PlasmaOrdered By: Rufina Ruiz on 03-19-2023 Iron [Mass/Vol] 68 ug/dL 50-212 [facility] Iron and TIBC Profileon % Iron Saturation 22.3 % Normal 20-50 [facility] Comment on above: Order Comment: Reaso n for Exam Bipolar disorder Reason for Exam Restless leg syndrome Reason for Exam Tobacco use;Bipolar disorder Reason for Exam Vitamin B 12 deficiency Performed By: #### L IPID, ALOK, FE and TIBC, THYROID SC, CBC, CMP, [id number] #### [facility] [address] [place] [address] [facility] Iron [Mass/Vol] 68 ug/dL Normal 50-212 [facility] Comment on above: Order Comment: Reaso n for Exam Bipolar disorder Reason for Exam Restless leg syndrome Reason for Exam Tobacco use;Bipolar disorder Reason for Exam Vitamin B 12 deficiency Performed By: #### L IPID, ALOK, FE and TIBC, THYROID SC, CBC, CMP, [id number] #### [facility] [address] [place] [address] [facility] Total Iron Binding Capacity 305 ug/dL Normal 255-450 [facility] Comment on above: Order Comment: Reaso n for Exam Bipolar disorder Reason for Exam Restless leg syndrome Reason for Exam Tobacco use;Bipolar disorder Reason for Exam Vitamin B 12 deficiency Performed By: #### L IPID, ALOK, FE and TIBC, THYROID SC, CBC, CMP, [id number] #### [facility] [address] [place] [address] [facility] Transferrin [Mass/Vol] 218 mg/dL Normal 203-362 [facility] Comment on above: Order Comment: Reaso n for Exam Bipolar disorder Reason for Exam Restless leg syndrome Reason for Exam Tobacco use;Bipolar disorder Reason for Exam Vitamin B 12 deficiency Performed By: #### L IPID, ALOK, FE and TIBC, THYROID SC, CBC, CMP, [id number] #### [facility] [address] [place] [id number] [facility] Iron binding capacity [Mass/ volume] in Serum or PlasmaOrdered By: Rufina Ruiz on 03-19-2023 Iron binding capacity [Mass/Vol] 305 ug/dL 255-450 [facility] Iron saturation [Mass Fracti on] in Serum or PlasmaOrdered By: Rufina Ruiz on 03-19-2023 Iron saturation [Mass fraction] 22.3 % 20-50 [facility] Leukocytes [#/volume] correc zakia for nucleated erythrocytes in Blood by Automated counOrdered By: Rufina Ruiz on 03-19-2023 WBC corrected for nucl RBC Auto (Bld) [#/Vol] 9.6 10*3/uL 3.8-11.6 [facility] Lipid Panelon 03-19-2023 Cholesterol [Mass/Vol] 164 mg/dL Normal 140-200 [facility] Comment on above: Order Comment: Reaso n for Exam Bipolar disorder Reason for Exam Restless leg syndrome Reason for Exam Tobacco use;Bipolar disorder Reason for Exam Vitamin B 12 deficiency Result Comment: Chol less than 200 mg/dl low risk Chol 201-239 mg/dl borderline risk Chol 240 mg/dl and greater high risk Performed By: #### L IPID, ALOK, FE and TIBC, THYROID SC, CBC, CMP, [id number] #### [facility] [address] [place] [id number] [facility] Cholesterol in HDL [Mass/Vol] 60 mg/dL Normal 23-92 [facility] Comment on above: Order Comment: Reaso n for Exam Bipolar disorder Reason for Exam Restless leg syndrome Reason for Exam Tobacco use;Bipolar disorder Reason for Exam Vitamin B 12 deficiency Result Comment: HDL CHOL ATP-III CLASSIFICATION Cardiovascular Risk HDL > or equal to 60 mg/dL LOW HDL < 40 mg/dL HIGH Performed By: #### L IPID, ALOK, FE and TIBC, THYROID SC, CBC, CMP, [id number] #### [facility] [address] [place] [id number] [facility] Cholesterol.total/Choles terol in HDL [Mass ratio] 2.7 {ratio} Normal <5.0 [facility] Comment on above: Order Comment: Reaso n for Exam Bipolar disorder Reason for Exam Restless leg syndrome Reason for Exam Tobacco use;Bipolar disorder Reason for Exam Vitamin B 12 deficiency Performed By: #### L IPID, ALOK, FE and TIBC, THYROID SC, CBC, CMP, [id number] #### [facility] [address] [place] [id number] [facility] LDL Cholesterol,Calculated 84 mg/dL Normal 0-100 [facility] Comment on above: Order Comment: Reaso n [...] 189 mg/dL Very high Performed By: #### L IPID, ALOK, FE and TIBC, THYROID SC, CBC, CMP, [id number] #### [facility] [address] [place] [id number] [facility] Triglyceride w/Reflex 99 mg/dL Normal 0-149 [facility] Comment on above: Order Comment: Reaso n [...] Prevention (CDC) test method. Performed By: #### L IPID, ALOK, FE and TIBC, THYROID SC, CBC, CMP, [id number] #### [facility] [address] [place] [id number] [facility] VLDL CHOLESTEROL 19 mg/dL Normal [facility] Comment on above: Order Comment: Reaso n for Exam Bipolar disorder Reason for Exam Restless leg syndrome Reason for Exam Tobacco use;Bipolar disorder Reason for Exam Vitamin B 12 deficiency Performed By: #### L IPID, ALOK, FE and TIBC, THYROID SC, CBC, CMP, [id number] #### [facility] [address] Lymphocytes Auto (Bld) [#/Vo l]Ordered By: Rufina Ruiz on 03-19-2023 Lymphocytes (Bld) [#/Vol] 2.4 10*3/uL 1.00-4.8 [facility] Lymphocytes/100 WBC Auto (Bl d)Ordered By: Rufina Ruiz on 03-19-2023 Lymphocytes/100 WBC (Bld) 25.6 % . [facility] MCH Auto (RBC) [Entitic mass ]Ordered By: Rufina Ruiz on 03-19-2023 MCH (RBC) [Entitic mass] 30.3 pg 24.7-34.3 [facility] MCHC Auto (RBC) [Mass/Vol]Or dered By: Rufina Ruiz on 03-19-2023 MCHC (RBC) [Mass/Vol] 33.3 g/dL 32.0-35.0 [facility] MCV Auto (RBC) [Entitic vol] Ordered By: Rufina Ruiz on 03-19-2023 MCV (RBC) [Entitic vol] 91.1 fL 80-100 [facility] Monocytes Auto (Bld) [#/Vol] Ordered By: Rufina Ruiz on 03-19-2023 Monocytes (Bld) [#/Vol] 0.7 10*3/uL 0.0-0.8 [facility] Monocytes/100 WBC Auto (Bld) Ordered By: Rufina Ruiz on 03-19-2023 Monocytes/100 WBC (Bld) 7.1 % . [facility] Neutrophils Auto (Bld) [#/Vo l]Ordered By: Rufina Ruiz on 03-19-2023 Neutrophils (Bld) [#/Vol] 6.2 10*3/uL 1.8-7.7 [facility] Neutrophils/100 WBC Auto (Bl d)Ordered By: Rufina Ruiz on 03-19-2023 Neutrophils/100 WBC (Bld) 65.4 % . [facility] No Panel InformationOrdered By: Rufina Ruiz on 03-19-2023 Estimated GFR (CKD-EPI) > 60.0 mL/Min [facility] Creatinine Clearance (Chem N/A [facility] Nucleated erythrocytes [Pres ence] in Blood by Automated countOrdered By: Rufina Ruiz on 03-19-2023 Nucleated RBC Auto Ql (Bld) 0.2 /100{WBC} 0-0.5 [facility] Platelet mean volume Auto (B ld) [Entitic vol]Ordered By: Rufina Ruiz on 03-19-2023 Platelet mean volume (Bld) [Entitic vol] 10.4 fL 6.3-10.7 [facility] Platelets Auto (Bld) [#/Vol] Ordered By: Rufina Ruiz on 03-19-2023 Platelets (Bld) [#/Vol] 179 10*3/uL 150-450 [facility] Potassium [Moles/volume] in Serum or PlasmaOrdered By: Rufina Ruiz on 03-19-2023 Potassium [Moles/Vol] 4.6 mmol/L 3.5-5.1 [facility] Protein [Mass/volume] in Ser um or PlasmaOrdered By: Rufina Ruiz on 03-19-2023 Protein [Mass/Vol] 6.4 g/dL 6.4-8.9 [facility] RBC Auto (Bld) [#/Vol]Ordere d By: Rufina Ruiz on 03-19-2023 RBC (Bld) [#/Vol] 4.38 10*6/uL 3.60-5.00 [facility] Serum or plasma albumin/glob ulin mass ratioOrdered By: Rufina Ruiz on 03-19-2023 Albumin/Globulin [Mass ratio] 2.0 {ratio} [facility] Serum or plasma anion gap de terminationOrdered By: Rufina Ruiz on 03-19-2023 Anion gap [Moles/Vol] 6.2 mmol/L 6.0-15.0 [facility] Serum or plasma high density lipoprotein (HDL) cholesterol measurementOrdered By: Rufina Ruiz on 03-19-2023 Cholesterol in HDL [Mass/Vol] 60 mg/dL 23-92 [facility] Comment on above: HDL CHOL ATP-III CLA SSIFICATION Cardiovascular RiskHDL > or equal to 60 mg/dL LOWHDL < 40 mg/dL HIGH Serum or plasma total choles terol/high density lipoprotein (HDL) cholesterol mass ratOrdered By: Rufina Ruiz on 03-19-2023 Cholesterol.total/Choles terol in HDL [Mass ratio] 2.7 {ratio} <5.0 [facility] Sodium [Moles/volume] in Ser um or PlasmaOrdered By: Rufina Ruiz on 03-19-2023 Sodium [Moles/Vol] 139 mmol/L 136-145 [facility] THYROID SCREENon 03-19-2023 Free T4 [Mass/Vol] 0.70 ng/dL Normal 0.61-1.12 [facility] Comment on above: Order Comment: Reaso n for Exam Bipolar disorder Reason for Exam Restless leg syndrome Reason for Exam Tobacco use;Bipolar disorder Reason for Exam Vitamin B 12 deficiency Performed By: #### L IPID, ALOK, FE and TIBC, THYROID SC, CBC, CMP, [id number] #### [facility] [address] TSH Qn 1.95 m[IU]/L Normal 0.45-5.33 [facility] Comment on above: Order Comment: Reaso n for Exam Bipolar disorder Reason for Exam Restless leg syndrome Reason for Exam Tobacco use;Bipolar disorder Reason for Exam Vitamin B 12 deficiency Result Comment: PERF ORMED BY: [facility] [address] [place] [address] PATHOLOGIST CLINICAL REVIEW NURSE MARINE WARD M.D. Performed By: #### L IPID, ALOK, FE and TIBC, THYROID SC, CBC, CMP, [id number] #### [facility] [address] Thyrotropin [Units/volume] i n Serum or PlasmaOrdered By: Rufina Ruiz on 03-19-2023 TSH Qn 1.95 m[IU]/L 0.45-5.33 [facility] Thyroxine (T4) free [Mass/vo lume] in Serum or PlasmaOrdered By: Rufina Ruiz on 03-19-2023 Free T4 [Mass/Vol] 0.70 ng/dL 0.61-1.12 [facility] Transferrin [Mass/volume] in Serum or PlasmaOrdered By: Rufina Ruiz on 03-19-2023 Transferrin [Mass/Vol] 218 mg/dL 203-362 [facility] Triglyceride [Mass/volume] i n Serum or PlasmaOrdered By: Rufina Ruiz on 03-19-2023 Triglyceride [Mass/Vol] 99 mg/dL 0-149 [facility] Comment on above: TRIG ATP III CLASSIF ICATIONTRIG less than 150 mg/dL NormalTRIG 150-199 mg/dL Borderline highTRIG 200-500 mg/dL High TRIG greater than 500 mg/dL Very highStandard traceable to the Center for Disease Conrtrol and Prevention (CDC) test method. Urea nitrogen [Mass/volume] in Serum or PlasmaOrdered By: Rufina Ruiz on 03-19-2023 Urea nitrogen [Mass/Vol] 7 mg/dL 7-25 [facility] Vit. B12/Folate Profileon Cobalamin (Vitamin B12) [Mass/Vol] 641 pg/mL Normal 180-914 [facility] Comment on above: Order Comment: Reaso n for Exam Bipolar disorder Reason for Exam Restless leg syndrome Reason for Exam Tobacco use;Bipolar disorder Reason for Exam Vitamin B 12 deficiency Performed By: #### L IPID, ALOK, FE and TIBC, THYROID SC, CBC, CMP, [id number] #### [facility] [address] Folate 5.7 ng/mL Low >5.9 [facility] Comment on above: Order Comment: Reaso n for Exam Bipolar disorder Reason for Exam Restless leg syndrome Reason for Exam Tobacco use;Bipolar disorder Reason for Exam Vitamin B 12 deficiency Result Comment: Senait te reference range: >5.9 ng/ml The WHO technical consultation on folate and vitamin b12 deficiencies has determined that folate concentrations less than 4 ng/ml are considered deficient. Performed By: #### L IPID, ALOK, FE and TIBC, THYROID SC, CBC, CMP, [id number] #### [facility] [address] [place] [address] [facility] Vitamin B12 ser/plasOrdered By: Rufina Ruiz on 03-19-2023 Cobalamin (Vitamin B12) [Mass/Vol] 641 pg/mL 180-914 [facility] WBC Auto (Bld) [#/Vol]Ordere d By: Rufina Ruiz on 03-19-2023 WBC (Bld) [#/Vol] 9.6 10*3/uL 3.8-11.6 [facility] Vitamin B12on 11-16-2022 Cobalamin (Vitamin B12) [Mass/Vol] 363 pg/mL Normal 180-914 [facility] Comment on above: Order Comment: Reaso n for Exam B12 deficiency Result Comment: PERF ORMED BY: [place] [address] PATHOLOGIST CLINICAL REVIEW NURSE MARINE WARD M.D. Performed By: #### B 12 #### [facility] [address] [place] [id number] [facility] Vitamin B12 ser/plasOrdered By: Rufina Ruiz on 11-16-2022 Cobalamin (Vitamin B12) [Mass/Vol] 363 pg/mL 180-914 [facility] Lab Reportson 11-04-2022 Lab Reports [id number]#1 .00CD:127 Normal [facility] Lab Reports [id number] .00CD:127 Normal [facility] Lab Reports [id number]#1 .00CD:127 Normal [facility] Lab Reports [id number] .00CD:127 Normal [facility] Lab Reports [id number]#1 .00CD:127 Normal [facility] RAD - CT Reporton 11-04-2022 RAD - CT Report [id number]#1 .00CD:127 Normal [facility] Physician Referralon 023 Physician Referral [id number] .00CD:127 Normal [facility] Patient Educationon 10-06-19 23 Patient Education Obstetrics and Gynecology Urinary Tract [...] this condition includes: ? Antibiotic medicine. ? Nicz-lvj-hunitan medicines to treat discomfort. ? Drinking enough [...] these instructions at home: Medicines ? Take ytku-gfa-qwxipnk and prescription medicines only as told by [...] This in (more content not included)... Normal [facility] Vitamin B12 ser/plasOrdered By: Rufina Ruiz on 09-21-2022 Cobalamin (Vitamin B12) [Mass/Vol] 548 pg/mL 180-914 [facility] Urine culture routineOrdered By: Rufina Ruiz on 08-31-2022 Bacteria identified Cx Nom (U) Escherichia coli [facility] Basophils Auto (Bld) [#/Vol] Ordered By: Salvador Maier on 07-22-2022 Basophils (Bld) [#/Vol] 0.1 10*3/uL 0.0-0.2 [facility] Basophils/100 WBC Auto (Bld) Ordered By: Salvador Maier on 07-22-2022 Basophils/100 WBC (Bld) 1.0 % . F [facility] Bilirubin Test strip Ql (U)O rdered By: Salvador Maier on 07-22-2022 Bilirubin Ql (U) Negative Negative [facility] Body fluid albumin measureme nt (mass/volume)Ordered By: Salvador Maier on 07-22-2022 Albumin (Body fld) [Mass/Vol] 3.9 g/dL 3.2-5.5 [facility] Color Auto (U)Ordered By: Nguyễn Maier on 07-22-2022 Color (U) Yellow Yellow [facility] Creatinine and Glomerular fi ltration rate.predicted panel (S/P/Bld)Ordered By: Salvador Maier on 07-22-2022 Creatinine [Mass/Vol] 0.68 mg/dL 0.44-1.03 [facility] Eosinophils Auto (Bld) [#/Vo l]Ordered By: Salvador Maier on 07-22-2022 Eosinophils (Bld) [#/Vol] 0.4 10*3/uL 0.0-0.45 [facility] Eosinophils/100 WBC Auto (Bl d)Ordered By: Salvador Maier on 07-22-2022 Eosinophils/100 WBC (Bld) 4.1 % . [facility] Erythrocyte distribution wid th Auto (RBC) [Ratio]Ordered By: Salvador Maier on 07-22-2022 Erythrocyte distribution width (RBC) [Ratio] 14.7 % 11.9-15.3 [facility] Estimated glomerular filtrat ion rate (GFR) non- AmericanOrdered By: Salvador Maier on 07-22-2022 GFR/1.73 sq M.predicted among non-blacks MDRD (S/P/Bld) [Vol rate/Area] > 60 mL/Min [facility] Globulin Calc (S) [Mass/Vol] Ordered By: Salvador Maier on 07-22-2022 Globulin (S) [Mass/Vol] 2.5 g/dL F [facility] HCG ( test) IA.rapi d Ql (U)Ordered By: Salvador Maier on 07-22-2022 HCG ( test) Ql (U) Negative [facility] Hematocrit Auto (Bld) [Volum e fraction]Ordered By: Salvador Maier on 07-22-2022 Hematocrit (Bld) [Volume fraction] 40.9 % 34.0-46.4 [facility] Hemoglobin [Mass/volume] in BloodOrdered By: Salvador Maier on 07-22-2022 Hemoglobin (Bld) [Mass/Vol] 13.3 g/dL 11.8-15.4 [facility] Ketones Auto test strip (U) [Mass/Vol]Ordered By: Salvador Maier on 07-22-2022 Ketones (U) [Mass/Vol] Negative Negative [facility] and C hemistry - challengeOrdered By: Salvador Maier on 07-22-2022 Lipase [Catalytic activity/Vol] 70.0 U/L 22-51 [facility] Leukocytes [#/volume] correc zakia for nucleated erythrocytes in Blood by Automated counOrdered By: Salvador Maier on 07-22-2022 WBC corrected for nucl RBC Auto (Bld) [#/Vol] 8.8 10*3/uL 3.8-11.6 [facility] Lymphocytes Auto (Bld) [#/Vo l]Ordered By: Salvador Maier on 07-22-2022 Lymphocytes (Bld) [#/Vol] 3.1 10*3/uL 1.00-4.8 [facility] Lymphocytes/100 WBC Auto (Bl d)Ordered By: Salvador Maier on 07-22-2022 Lymphocytes/100 WBC (Bld) 35.0 % . [facility] MCH Auto (RBC) [Entitic mass ]Ordered By: Salvador Maier on 07-22-2022 MCH (RBC) [Entitic mass] 30.2 pg 24.7-34.3 [facility] MCHC Auto (RBC) [Mass/Vol]Or dered By: Salvador Maier on 07-22-2022 MCHC (RBC) [Mass/Vol] 32.6 g/dL 32.0-35.0 Fir [facility] MCV Auto (RBC) [Entitic vol] Ordered By: Salvador Maier on 07-22-2022 MCV (RBC) [Entitic vol] 92.6 fL 80-100 F [facility] Monocyte distribution width [Entitic volume] in Blood by AutomatedOrdered By: Salvador Maier on 07-22-2022 Monocyte distribution width Auto (Bld) [Entitic vol] 20.62 % 0.00-20.00 [facility] Comment on above: For adults in ED, MD W > 20.0 may be associated with a higher risk of sepsis during the first 12 hrs of hospital admission Monocytes Auto (Bld) [#/Vol] Ordered By: Salvador Maier on 07-22-2022 Monocytes (Bld) [#/Vol] 0.6 10*3/uL 0.0-0.8 [facility] Monocytes/100 WBC Auto (Bld) Ordered By: Salvador Maier on 07-22-2022 Monocytes/100 WBC (Bld) 7.1 % . F [facility] Neutrophils Auto (Bld) [#/Vo l]Ordered By: Salvador Maier on 07-22-2022 Neutrophils (Bld) [#/Vol] 4.6 10*3/uL 1.8-7.7 [facility] Neutrophils/100 WBC Auto (Bl d)Ordered By: Salvador Maier on 07-22-2022 Neutrophils/100 WBC (Bld) 52.8 % . [facility] Nitrite Test strip Ql (U)Ord ered By: Salvador Maier on 07-22-2022 Nitrite Ql (U) Negative Negative [facility] No Panel InformationOrdered By: Salvador Maier on 07-22-2022 Estimated GFR () > 60 mL/Min [facility] Comment on above: GFR estimated refere nce range: According to KDOQI guidelines, <60 ml/min/1.73m2 is sufficient to diagnose a patient with chronic kidney disease. Pharmacy Creatinine Clearance (Chem 90.47 [facility] Nucleated erythrocytes [Pres ence] in Blood by Automated countOrdered By: Salvador Maier on 07-22-2022 Nucleated RBC Auto Ql (Bld) 0.2 /100{WBC} 0-0.5 [facility] Platelet mean volume Auto (B ld) [Entitic vol]Ordered By: Salvador Maier on 07-22-2022 Platelet mean volume (Bld) [Entitic vol] 9.1 fL 6.3-10.7 [facility] Platelets Auto (Bld) [#/Vol] Ordered By: Salvador Maier on 07-22-2022 Platelets (Bld) [#/Vol] 202 10*3/uL 150-450 [facility] Protein Auto test strip (U) [Mass/Vol]Ordered By: Salvador Maier on 07-22-2022 Protein (U) [Mass/Vol] Negative Negative [facility] Protein [Mass/volume] in Ser um or PlasmaOrdered By: Salvador Maier on 07-22-2022 Protein [Mass/Vol] 6.4 g/dL 6.1-7.9 [facility] RBC Auto (Bld) [#/Vol]Ordere d By: Salvador Maier on 07-22-2022 RBC (Bld) [#/Vol] 4.42 10*6/uL 3.60-5.00 [facility] Serum or plasma alanine mckeon otransferase measurement without P-5'-P (enzymatic activiOrdered By: Salvador Maier on 07-22-2022 ALT No additional P-5'-P [Catalytic activity/Vol] 12 U/L 10-60 [facility] Serum or plasma albumin/glob ulin mass ratioOrdered By: Salvador Maier on 07-22-2022 Albumin/Globulin [Mass ratio] 1.6 {ratio} [facility] Serum or plasma alkaline kamron sphatase measurement (enzymatic activity/volume)Ordered By: Salvador Maier on 07-22-2022 ALP [Catalytic activity/Vol] 109 U/L 32-92 [facility] Serum or plasma anion gap de terminationOrdered By: Salvador Maier on 07-22-2022 Anion gap [Moles/Vol] 13.2 mmol/L 6.0-15.0 [facility] Serum or plasma aspartate am inotransferase measurement (enzymatic activity/volume)Ordered By: Salvador Maier on 07-22-2022 AST [Catalytic activity/Vol] 16 U/L 10-42 [facility] Serum or plasma calcium kunal urement (mass/volume)Ordered By: Salvador Maier on 07-22-2022 Calcium [Mass/Vol] 8.8 mg/dL 8.2-10.2 [facility] Serum or plasma chloride chacorta surement (moles/volume)Ordered By: Salvador Maier on 07-22-2022 Chloride [Moles/Vol] 103 mmol/L 95-114 [facility] Serum or plasma glucose kunal urement (mass/volume)Ordered By: Salvador Maier on 07-22-2022 Glucose [Mass/Vol] 102 mg/dL 70-100 [facility] Comment on above: ADA recommended refe rence rangeRandom Glucose Reference Range is dependent on time and content of last meal. Glucose of more than 200 mg/dL in a nonstressed, ambulatory subject supports the diagnosis of Diabetes Mellitus. Serum or plasma potassium me asurement (moles/volume)Ordered By: Salvador Maier on 07-22-2022 Potassium [Moles/Vol] 3.2 mmol/L 3.5-5.1 [facility] Serum or plasma sodium measu rement (moles/volume)Ordered By: Salvador Maier on 07-22-2022 Sodium [Moles/Vol] 139 mmol/L 136-146 [facility] Serum or plasma total biliru bin measurement (mass/volume)Ordered By: Salvador Maier on 07-22-2022 Bilirubin [Mass/Vol] 0.3 mg/dL 0.3-1.2 [facility] Serum or plasma total carbon dioxide measurement (moles/volume)Ordered By: Salvador Maier on 07-22-2022 CO2 [Moles/Vol] 26.0 mmol/L 22.0-30.0 [facility] Serum or plasma urea nitroge n measurement (mass/volume)Ordered By: Salvador Maier on 07-22-2022 Urea nitrogen [Mass/Vol] 4 mg/dL 9 [facility] Specific gravity Auto test s trip (U) [Rel density]Ordered By: Salvador Maier on 07-22-2022 Specific gravity (U) [Rel density] 1.004 1.001-1.030 [facility] Urine clarity by refractomet ry automatedOrdered By: Salvador Maier on 07-22-2022 Clarity Refractometry automated (U) Clear Clear [facility] Urine glucose measurement by automated test strip (mass/volume)Ordered By: Salvador Maier on 07-22-2022 Glucose Auto test strip (U) [Mass/Vol] Normal mg/dL Normal [facility] Urine hemoglobin detection b y automated test stripOrdered By: Salvador Maier on 07-22-2022 Hemoglobin Auto test strip Ql (U) Negative Negative [facility] Urine leukocyte esterase det ection by automated test stripOrdered By: Salvador aMier on 07-22-2022 Leukocyte esterase Auto test strip Ql (U) Negative Negative [facility] Urobilinogen Auto test strip (U) [Mass/Vol]Ordered By: Salvador Maier on 07-22-2022 Urobilinogen (U) [Mass/Vol] Normal mg/dL Normal [facility] WBC Auto (Bld) [#/Vol]Ordere d By: Salvador Maier on 07-22-2022 WBC (Bld) [#/Vol] 8.8 10*3/uL 3.8-11.6 [facility] pH Auto test strip (U)Ordere d By: Salvador Maier on 07-22-2022 pH (U) 7.0 [pH] 5.0-9.0 [facility] CBC AUTO DIFFon 07-21-2022 BASO # 0.0 103/ul Normal 0.0-0.1 [facility] Comment on above: Performed By: #### C BC ####[facility] [address] [place] [address]Dr. Ruthie Maxim Basophils/100 WBC (Bld) 0.5 % Normal 0.2-2.0 [facility] Comment on above: Performed By: #### C BC ####[facility] Bil[address] [place], [place] [address]Dr. Ruthie Pan EO # 0.5 103/ul Normal 0.0-0.7 [facility] Comment on above: Performed By: #### C BC ####[facility] U[address] [place], [place] [address]Dr. Michaelajean-claude Pan Eosinophils/100 WBC (Bld) 5.8 % Normal 0.9-7.0 [facility] Comment on above: Performed By: #### C BC ####[facility] Y[address]of[address]volph[address] [place], [place] [address]Dr. Ruthie Maxim Erythrocyte distribution width (RBC) [Ratio] 14.0 % Normal 11.0-15.0 [facility] Comment on above: Performed By: #### C BC ####[facility] [address] [place], [place] [address]Dr. Ruthie Pan Hematocrit (Bld) [Volume fraction] 38.9 % Normal 36.0-48.0 [facility] Comment on above: Performed By: #### C BC ####[facility] C[address]pe[address]in[address] [place], [place] [address]Dr. Ruthie Pan Hemoglobin (Bld) [Mass/Vol] 13.0 g/dL Normal 12.0-16.0 [facility] Comment on above: Performed By: #### C BC ####[facility] V[address] [place], [place] [address]Dr. Michaelajean-claude Pan IG # 0.02 10e3/ul Normal 0.00-0.03 [facility] Comment on above: Performed By: #### C BC ####[facility] U[address]now[address] [place], [place] [address]Dr. Ruthie Pan IG % 0.3 % Normal 0.0-0.5 [facility] Comment on above: Performed By: #### C BC ####[facility] [address] [place] [address]Dr. Ruthie Maxim LYMPH # 2.8 103/ul Normal 1.2-3.8 [facility] Comment on above: Performed By: #### C BC ####[facility] [address] [place] [address]Dr. Ruthie Pan Lymphocytes/100 WBC (Bld) 36.0 % Normal 20.5-60.0 [facility] Comment on above: Performed By: #### C BC ####[facility] [address] [place] [address]Dr. Ruthie Pan MANUAL DIFF REQ NO Normal [facility] Comment on above: Performed By: #### C BC ####[facility] [address] [place], [place] [address]Dr. Ruthie Pan MCH (RBC) [Entitic mass] 30.6 pg Normal 26.7-34.0 [facility] Comment on above: Performed By: #### C BC ####[facility] [address] [place], [place] [address]Dr. Ruthie Pan MCHC (RBC) [Mass/Vol] 33.4 g/dL Normal 29.9-35.2 [facility] Comment on above: Performed By: #### C BC ####[facility] [address] [place] [address]Dr. Ruthie Pan MCV (RBC) [Entitic vol] 91.5 fL Normal 81.0-99.0 [facility] Comment on above: Performed By: #### C BC ####[facility] X[address]hour[address] [place], [place] [address]Dr. Ruthie Pan MONO # 0.6 103/ul Normal 0.3-0.8 [facility] Comment on above: Performed By: #### C BC ####[facility] [address] [place] [address]Dr. Ruthie Pan Monocytes/100 WBC (Bld) 7.9 % Normal 1.7-12.0 [facility] Comment on above: Performed By: #### C BC ####[facility] [address] [place] [address]Dr. Ruthie Pan NEUT # 3.8 103/ul Normal 1.4-6.5 [facility] Comment on above: Performed By: #### C BC ####[facility] [address] [place] [address]Dr. Ruthie Pan Neutrophils/100 WBC (Bld) 49.5 % Normal 43.0-75.0 [facility] Comment on above: Performed By: #### C BC ####[facility] [address] [place] [address]DrGideon Pan Platelet mean volume (Bld) [Entitic vol] 10.6 fL Normal 9.5-13.5 [facility] Comment on above: Performed By: #### C BC ####[facility] [address] [place] [address]Dr. Ruthie Pan PLT 201 103/ul Normal 150-450 [facility] Comment on above: Performed By: #### C BC ####[facility] [address] [place] [address]Dr. Ruthie Pan RBC 4.25 106/ul Normal 4.20-5.40 [facility] Comment on above: Performed By: #### C BC ####[facility] [address] [place] [address]DrGideon Pan WBC 7.8 103/ul Normal 4.0-11.0 [facility] Comment on above: Performed By: #### C BC ####[facility] [address] [place] [id number] Pan ER URINE PROFILEon 3 Bilirubin Ql (U) Negative Normal NEGATIVE [facility] Comment on above: Performed By: #### U MICRO, ERUR #### [facility] [id number] Ruthie Pan Clarity (U) CLEAR Normal CLEAR [facility] Comment on above: Performed By: #### U MICRO, ERUR #### [facility] [address] [address] [address] Ruthie Pan Color (U) LT. YELLOW Normal YELLOW [facility] Comment on above: Performed By: #### U MICRO, ERUR #### [facility] [address] [address] [address] Ruthie CASTELLOND A micrscopic examination will be performed if indicated. Normal [facility] Comment on above: Performed By: #### U MICRO, ERUR #### [facility] [address] [address] [address] Ruthie Pan Glucose Ql (U) Negative Normal NEGATIVE [facility] Comment on above: Performed By: #### U MICRO, ERUR #### [facility] [address] [place] [address] Dr. Ruthie Pan Hemoglobin Ql (U) TRACE-LYSED Abnormal NEGATIVE [facility] Comment on above: Performed By: #### U MICRO, ERUR #### [facility] [address] [address] [address] Ruthie Pan Ketones Ql (U) Negative Normal NEGATIVE [facility] Comment on above: Performed By: #### U MICRO, ERUR #### [facility] [address] [address] [address] Ruthie Pan LEUKOCYTES Negative Normal NEGATIVE [facility] Comment on above: Performed By: #### U MICRO, ERUR #### [facility] [address] [address] [address] Ruthie Pan Nitrite Ql (U) Negative Normal NEGATIVE [facility] Comment on above: Performed By: #### U MICRO, ERUR #### [facility] [address] [address] [address] Ruthie Pan pH (U) 6.5 [pH] Normal 5-9 [facility] Comment on above: Performed By: #### U MICRO, ERUR #### [facility] [address] [place] [address] Dr. Ruthie Pan SPEC GRAVITY <=1.005 Abnormal 1.005-<=1.02 5 [facility] Comment on above: Performed By: #### U MICRO, ERUR #### [facility] [address] [address] [address] Ruthie Pan UA PROTEIN Negative Normal NEGATIVE/ TRACE [facility] Comment on above: Performed By: #### U MICRO, ERUR #### [facility] [address] [address] [address] Ruthie Pan UR MICRO IND INDICATED Normal [facility] Comment on above: Performed By: #### U MICRO, ERUR #### [facility] [address] [address] [address] Ruthie Pan Urobilinogen Qn (U) 0.2 {Harjeet'U}/dL Normal 0.2 - 1. 0 [facility] Comment on above: Performed By: #### U MICRO, ERUR #### [facility] [address] [place] [address] Dr. Ruthie Pan LACTATE/LACTIC ACIDon 2022 Lactate [Moles/Vol] 0.7 mmol/L Normal 0.4-1.9 [facility] Comment on above: Performed By: #### L ACT ####[facility] [address] [place], [place] [address]Dr. Ruthie Pan LIPASEon 07-21-2022 Lipase [Catalytic activity/Vol] 97.0 U/L Normal 73.0-393.0 [facility] Comment on above: Performed By: #### L IPA, CMP ####[facility] [address] [place] [address]DrGideon Pan PROF 14(COMP METB)on 023 Albumin [Mass/Vol] 3.6 g/dL Normal 3.4-5.0 [facility] Comment on above: Performed By: #### L IPA, CMP ####[facility] [address] [place], [place] [address]DrGideon Pan Albumin/Globulin [Mass ratio] 1.3 {ratio} Normal [facility] Comment on above: Performed By: #### L IPA, CMP ####[facility] [address] [place] [address]Dr. Ruthie Pan ALP [Catalytic activity/Vol] 129 U/L Critically high 46-116 [facility] Comment on above: Performed By: #### L IPA, CMP ####[facility] [address] [place], [place] [address]Dr. Ruthie Pan ALT [Catalytic activity/Vol] 13 U/L Critically low 14-59 [facility] Comment on above: Performed By: #### L IPA, CMP ####[facility] [address] [place], [place] [address]Dr. Ruthie Pan Anion gap [Moles/Vol] 10.0 mmol/L Normal [facility] Comment on above: Performed By: #### L IPA, CMP ####[facility] [address] [place], [place] [address]Dr. Ruthie Pan AST [Catalytic activity/Vol] 13 U/L Critically low 15-37 [facility] Comment on above: Performed By: #### L IPA, CMP ####[facility] [address] [place], [place] [address]Dr. Ruthie Pan Bilirubin [Mass/Vol] 0.2 mg/dL Normal 0.2-1.0 [facility] Comment on above: Performed By: #### L IPA, CMP ####[facility] [address] [place], [place] [address]Dr. Ruthie Pan Calcium [Mass/Vol] 8.5 mg/dL Normal 8.5-10.1 [facility] Comment on above: Performed By: #### L IPA, CMP ####[facility] In[address] [place], [place] [address]Dr. Ruthie Pan Chloride [Moles/Vol] 104 mmol/L Normal 98-107 [facility] Comment on above: Performed By: #### L IPA, CMP ####[facility] [address] [place], [place] [address]Dr. Ruthie Pan CO2 [Moles/Vol] 29.6 mmol/L Normal 21.0-32.0 [facility] Comment on above: Performed By: #### L IPA, CMP ####[facility] [address] [place] [id number]. Ruthie Pan Creatinine [Mass/Vol] 0.67 mg/dL Normal 0.55-1.02 [facility] Comment on above: Performed By: #### L IPA, CMP ####[facility] [address] [place] [id number]. Ruthie Pan EGFR-AF ERITREAN >60 Normal >=60 [facility] Comment on above: Performed By: #### L IPA, CMP ####[facility] [address] [place] [id number]. Ruthie Pan EGFR-NON AF ERITREAN >60 Normal >=60 [facility] Comment on above: Performed By: #### L IPA, CMP ####[facility] [address] [place] [address]Dr. Ruthie Pan Globulin (S) [Mass/Vol] 2.8 g/dL Normal [facility] Comment on above: Performed By: #### L IPA, CMP ####[facility] [address] [place] [address]Dr. Ruthie Pan Glucose [Mass/Vol] 106 mg/dL Normal 74-106 [facility] Comment on above: Performed By: #### L IPA, CMP ####[facility] [address] [place] [phone]. Ruthie Pan Potassium [Moles/Vol] 3.6 mmol/L Normal 3.5-5.1 [facility] Comment on above: Performed By: #### L IPA, CMP ####[facility] [address] [place] [id number]. Ruthie Pan Protein [Mass/Vol] 6.4 g/dL Normal 6.4-8.2 [facility] Comment on above: Performed By: #### L IPA, CMP ####[facility] [address] [place] [address]Dr. Ruthie Pan Sodium [Moles/Vol] 140 mmol/L Normal 136-145 [facility] Comment on above: Performed By: #### L IPA, CMP ####[facility] [address] [place] [phone]. Ruthie Pan Urea nitrogen [Mass/Vol] 4.0 mg/dL Critically low 7.0-18. 0 [facility] Comment on above: Performed By: #### L IPA, CMP ####[facility] [address] [place] [id number] Pan Urea nitrogen/Creatinine [Mass ratio] 6.0 mg/mg Normal [facility] Comment on above: Performed By: #### L IPA, CMP ####[facility] [address] [place] [id number]. Ruthie Pan URINE MICROSCOPIC ONLYon BACTERIA NONE SEEN Normal NONE SEEN [facility] Comment on above: Performed By: #### U MICRO, ERUR #### [facility] [address] [address] [address] Ruthie Pan Bacteria identified Cx Nom (U) NOT INDICATED Normal [facility] Comment on above: Performed By: #### U MICRO, ERUR #### [facility] [address] [address] [address] Ruthie Pan CAST NONE SEEN Normal NONE SEEN [facility] Comment on above: Performed By: #### U MICRO, ERUR #### [facility] [address] [address] [address] Ruthie Pan Crystals LM Nom (Urine sed) NONE SEEN Normal NONE SEEN [facility] Comment on above: Performed By: #### U MICRO, ERUR #### [facility] [address] [address] [address] Ruthie Pan Epithelial cells LM Ql (Urine sed) FEW Abnormal NONE SEEN /RARE [facility] Comment on above: Performed By: #### U MICRO, ERUR #### [facility] [address] [address] [address] Ruthie Pan MUCOUS NONE SEEN Normal NONE SEEN [facility] Comment on above: Performed By: #### U MICRO, ERUR #### [facility] [address] [address] [address] Ruthie Pan RBC 0-2 Normal 0-2 [facility] Comment on above: Performed By: #### U MICRO, ERUR #### [facility] [address] [place], [place] [address] Dr. Ruthie Pan WBC 0-2 Abnormal NONE SEEN [facility] Comment on above: Performed By: #### U MICRO, ERUR #### [facility] [address] [place], [place] [address] Dr. Ruthie Pan US SINGLE QUAD RT [...] KAE VILLALPANDO Date: 2022-07-21 20:21 Normal [facility] Albumin [Mass/volume] in Ser um or PlasmaOrdered By: Rufina Ruiz on 07-20-2022 Albumin [Mass/Vol] 3.8 g/dL 3.2-5.5 [facility] Basophils Auto (Bld) [#/Vol] Ordered By: Rufina Ruiz on 07-20-2022 Basophils (Bld) [#/Vol] 0.1 10*3/uL 0.0-0.2 [facility] Basophils/100 WBC Auto (Bld) Ordered By: Rufina Ruiz on 07-20-2022 Basophils/100 WBC (Bld) 1.2 % . F [facility] Cholesterol [Mass/volume] in Serum or PlasmaOrdered By: Rufina Ruiz on 07-20-2022 Cholesterol [Mass/Vol] 183 mg/dL 140-[address] [facility] Comment on above: Chol less than 200 m g/dl low riskChol 201-239 mg/dl borderline riskChol 240 mg/dl and greater high risk Cholesterol in LDL Calc [Mas s/Vol]Ordered By: Rufina Ruiz on 07-20-2022 Cholesterol in LDL [Mass/Vol] 104 mg/dL 0-100 [facility] Comment on above: LDL ATP III CLASSIFI CATIONLDL less than 100 mg/dL OptimalLDL 100-129 mg/dL Near or above optimalLDL 130-159 mg/dL Borderline highLDL 160-189 mg/dL HighLDL greater than 189 mg/dL Very high Cholesterol in VLDL Calc [Ma ss/Vol]Ordered By: Rufina Ruiz on 07-20-2022 Cholesterol in VLDL [Mass/Vol] 26 mg/dL [facility] Creatinine and Glomerular fi ltration rate.predicted panel (S/P/Bld)Ordered By: Rufina Ruiz on 07-20-2022 Creatinine [Mass/Vol] 0.64 mg/dL 0.44-1.03 [facility] Eosinophils Auto (Bld) [#/Vo l]Ordered By: Rufina Ruiz on 07-20-2022 Eosinophils (Bld) [#/Vol] 0.3 10*3/uL 0.0-0.45 [facility] Eosinophils/100 WBC Auto (Bl d)Ordered By: Rufina Ruiz on 07-20-2022 Eosinophils/100 WBC (Bld) 3.0 % . [facility] Erythrocyte distribution wid th Auto (RBC) [Ratio]Ordered By: Rufina Ruiz on 07-20-2022 Erythrocyte distribution width (RBC) [Ratio] 14.5 % 11.9-15.3 [facility] Estimated glomerular filtrat ion rate (GFR) non- AmericanOrdered By: Rufina Ruiz on 07-20-2022 GFR/1.73 sq M.predicted among non-blacks MDRD (S/P/Bld) [Vol rate/Area] > 60 mL/Min [facility] Globulin Calc (S) [Mass/Vol] Ordered By: Rufina Ruiz on 07-20-2022 Globulin (S) [Mass/Vol] 2.4 g/dL F [facility] Hematocrit Auto (Bld) [Volum e fraction]Ordered By: Rufina Ruiz on 07-20-2022 Hematocrit (Bld) [Volume fraction] 40.8 % 34.0-46.4 [facility] Hemoglobin [Mass/volume] in BloodOrdered By: Rufina Ruiz on 07-20-2022 Hemoglobin (Bld) [Mass/Vol] 13.4 g/dL 11.8-15.4 [facility] Laboratory - Chemistry and C hemistry - challengeOrdered By: Rufina Ruiz on 07-20-2022 Cobalamin (Vitamin B12) [Mass/Vol] 137 pg/mL 180-914 [facility] Lipase [Catalytic activity/Vol] 53.0 U/L 22-51 [facility] Leukocytes [#/volume] correc zakia for nucleated erythrocytes in Blood by Automated counOrdered By: Rufina Ruiz on 07-20-2022 WBC corrected for nucl RBC Auto (Bld) [#/Vol] 8.5 10*3/uL 3.8-11.6 [facility] Lymphocytes Auto (Bld) [#/Vo l]Ordered By: Rufina Ruiz on 07-20-2022 Lymphocytes (Bld) [#/Vol] 3.1 10*3/uL 1.00-4.8 [facility] Lymphocytes/100 WBC Auto (Bl d)Ordered By: Rufina Ruiz on 07-20-2022 Lymphocytes/100 WBC (Bld) 36.6 % . [facility] MCH Auto (RBC) [Entitic mass ]Ordered By: Rufina Ruiz on 07-20-2022 MCH (RBC) [Entitic mass] 30.4 pg 24.7-34.3 [facility] MCHC Auto (RBC) [Mass/Vol]Or dered By: Rufina Ruiz on 07-20-2022 MCHC (RBC) [Mass/Vol] 32.8 g/dL 32.0-35.0 [facility] MCV Auto (RBC) [Entitic vol] Ordered By: Rufina Ruiz on 07-20-2022 MCV (RBC) [Entitic vol] 92.7 fL 80-100 [facility] Monocytes Auto (Bld) [#/Vol] Ordered By: Rufina Ruiz on 07-20-2022 Monocytes (Bld) [#/Vol] 0.6 10*3/uL 0.0-0.8 [facility] Monocytes/100 WBC Auto (Bld) Ordered By: Rufina Ruiz on 07-20-2022 Monocytes/100 WBC (Bld) 7.0 % . [facility] Neutrophils Auto (Bld) [#/Vo l]Ordered By: Rufina Ruiz on 07-20-2022 Neutrophils (Bld) [#/Vol] 4.4 10*3/uL 1.8-7.7 [facility] Neutrophils/100 WBC Auto (Bl d)Ordered By: Rufina Ruiz on 07-20-2022 Neutrophils/100 WBC (Bld) 52.2 % . [facility] No Panel InformationOrdered By: Rufina Ruiz on 07-20-2022 Estimated GFR () > 60 mL/Min [facility] Comment on above: GFR estimated refere nce range: According to KDOQI guidelines, <60 ml/min/1.73m2 is sufficient to diagnose a patient with chronic kidney disease. Pharmacy Creatinine Clearance (Chem N/A [facility] Nucleated erythrocytes [Pres ence] in Blood by Automated countOrdered By: Rufina Ruiz on 07-20-2022 Nucleated RBC Auto Ql (Bld) 0.2 /100{WBC} 0-0.5 [facility] Platelet mean volume Auto (B ld) [Entitic vol]Ordered By: Rufina Ruiz on 07-20-2022 Platelet mean volume (Bld) [Entitic vol] 10.2 fL 6.3-10.7 [facility] Platelets Auto (Bld) [#/Vol] Ordered By: Rufina Ruiz on 07-20-2022 Platelets (Bld) [#/Vol] 183 10*3/uL 150-450 [facility] Protein [Mass/volume] in Ser um or PlasmaOrdered By: Rufina Ruiz on 07-20-2022 Protein [Mass/Vol] 6.2 g/dL 6.1-7.9 [facility] RBC Auto (Bld) [#/Vol]Ordere d By: Rufina Ruiz on 07-20-2022 RBC (Bld) [#/Vol] 4.40 10*6/uL 3.60-5.00 [facility] Serum or plasma alanine mckeon otransferase measurement without P-5'-P (enzymatic activiOrdered By: Rufina Ruiz on 07-20-2022 ALT No additional P-5'-P [Catalytic activity/Vol] 10 U/L 10-60 [facility] Serum or plasma albumin/glob ulin mass ratioOrdered By: Rufina Ruiz on 07-20-2022 Albumin/Globulin [Mass ratio] 1.6 {ratio} [facility] Serum or plasma alkaline kamron sphatase measurement (enzymatic activity/volume)Ordered By: Rufina Ruiz on 07-20-2022 ALP [Catalytic activity/Vol] 107 U/L 32-92 [facility] Serum or plasma amylase kunal urement (enzymatic activity/volume)Ordered By: Rufina Ruiz on 07-20-2022 Amylase [Catalytic activity/Vol] 129 U/L 28-100 [facility] Serum or plasma anion gap de terminationOrdered By: Rufina Ruiz on 07-20-2022 Anion gap [Moles/Vol] 9.5 mmol/L 6.0-15.0 [facility] Serum or plasma aspartate am inotransferase measurement (enzymatic activity/volume)Ordered By: Rufina Ruiz on 07-20-2022 AST [Catalytic activity/Vol] 13 U/L 10-42 [facility] Serum or plasma calcium kunal urement (mass/volume)Ordered By: Rufina Ruiz on 07-20-2022 Calcium [Mass/Vol] 8.7 mg/dL 8.2-10.2 [facility] Serum or plasma chloride chacorta surement (moles/volume)Ordered By: Rufina Ruiz on 07-20-2022 Chloride [Moles/Vol] 107 mmol/L 95-114 [facility] Serum or plasma glucose kunal urement (mass/volume)Ordered By: Rufina Ruiz on 07-20-2022 Glucose [Mass/Vol] 82 mg/dL 70-100 [facility] Comment on above: ADA recommended refe rence rangeRandom Glucose Reference Range is dependent on time and content of last meal. Glucose of more than 200 mg/dL in a nonstressed, ambulatory subject supports the diagnosis of Diabetes Mellitus. Serum or plasma high density lipoprotein (HDL) cholesterol measurementOrdered By: Rufina Ruiz on 07-20-2022 Cholesterol in HDL [Mass/Vol] 53 mg/dL 35-85 [facility] Comment on above: HDL CHOL ATP-III CLA SSIFICATION Cardiovascular RiskHDL > or equal to 60 mg/dL LOWHDL < 40 mg/dL HIGH Serum or plasma potassium me asurement (moles/volume)Ordered By: Rufina Ruiz on 07-20-2022 Potassium [Moles/Vol] 3.9 mmol/L 3.5-5.1 [facility] Serum or plasma sodium measu rement (moles/volume)Ordered By: Rufina Ruiz on 07-20-2022 Sodium [Moles/Vol] 138 mmol/L 136-146 [facility] Serum or plasma total biliru bin measurement (mass/volume)Ordered By: Rufina Ruiz on 07-20-2022 Bilirubin [Mass/Vol] 0.3 mg/dL 0.3-1.2 [facility] Serum or plasma total carbon dioxide measurement (moles/volume)Ordered By: Rufina Ruiz on 07-20-2022 CO2 [Moles/Vol] 25.4 mmol/L 22.0-30.0 [facility] Serum or plasma total choles terol/high density lipoprotein (HDL) cholesterol mass ratOrdered By: Rufina Ruiz on 07-20-2022 Cholesterol.total/Choles terol in HDL [Mass ratio] 3.5 {ratio} <5.0 [facility] Serum or plasma urea nitroge n measurement (mass/volume)Ordered By: Rufina Ruiz on 07-20-2022 Urea nitrogen [Mass/Vol] 5 mg/dL 9-23 [facility] TSH DL <= 0.005 mIU/L QnOrde red By: Rufina Ruiz on 07-20-2022 TSH Qn 4.78 m[IU]/L 0.45-5.33 [facility] Thyroxine (T4) free [Mass/vo lume] in Serum or PlasmaOrdered By: Rufina Ruiz on 07-20-2022 Free T4 [Mass/Vol] 0.80 ng/dL 0.61-1.12 [facility] Triglyceride [Mass/volume] i n Serum or PlasmaOrdered By: Rufina Ruiz on 07-20-2022 Triglyceride [Mass/Vol] 132 mg/dL 35-149 [facility] Comment on above: TRIG ATP III CLASSIF ICATIONTRIG less than 150 mg/dL NormalTRIG 150-199 mg/dL Borderline highTRIG 200-500 mg/dL High TRIG greater than 500 mg/dL Very highStandard traceable to the Center for Disease Conrtrol and Prevention (CDC) test method. Urine culture routineOrdered By: Rufina Ruiz on 07-20-2022 Bacteria identified Cx Nom (U) Escherichia coli [facility] WBC Auto (Bld) [#/Vol]Ordere d By: Rufina Ruiz on 07-20-2022 WBC (Bld) [#/Vol] 8.5 10*3/uL 3.8-11.6 [facility] CBC AUTO DIFFon 06-24-2022 BASO # 0.0 103/ul Normal 0.0-0.1 [facility] Comment on above: Performed By: #### C BC #### [facility] [address] [place], [place] [address] Dr. Ruthie Pan Basophils/100 WBC (Bld) 0.5 % Normal 0.2-2.0 T [facility] Comment on above: Performed By: #### C BC #### [facility] [address] [place], [place] [address] Dr. Ruthie Pan EO # 0.1 103/ul Normal 0.0-0.7 [facility] Comment on above: Performed By: #### C BC #### [facility] [address] [place] [address] Dr. Ruthie Pan Eosinophils/100 WBC (Bld) 1.6 % Normal 0.9-7.0 [facility] Comment on above: Performed By: #### C BC #### [facility] [address] [place] [address] Dr. Ruthie Pan Erythrocyte distribution width (RBC) [Ratio] 13.2 % Normal 11.0-15.0 [facility] Comment on above: Performed By: #### C BC #### [facility] [address] [place] [address] Dr. Ruthie Pan Hematocrit (Bld) [Volume fraction] 41.5 % Normal 36.0-48.0 [facility] Comment on above: Performed By: #### C BC #### [facility] [address] [place] [address] Dr. Ruthie Pan Hemoglobin (Bld) [Mass/Vol] 13.9 g/dL Normal 12.0-16.0 [facility] Comment on above: Performed By: #### C BC #### [facility] [address] [place] [address] Dr. Ruthie Pan IG # 0.02 10e3/ul Normal 0.00-0.03 [facility] Comment on above: Performed By: #### C BC #### [facility] [address] [place] [address] Dr. Ruthie Pan IG % 0.2 % Normal 0.0-0.5 [facility] Comment on above: Performed By: #### C BC #### [facility] [address] [place] [address] Dr. Ruthie Pan LYMPH # 2.5 103/ul Normal 1.2-3.8 [facility] Comment on above: Performed By: #### C BC #### [facility] [address] [place] [address] Dr. Ruthie Pan Lymphocytes/100 WBC (Bld) 28.8 % Normal 20.5-60.0 [facility] Comment on above: Performed By: #### C BC #### [facility] [address] [place] [address] Dr. Ruthie Pan MANUAL DIFF REQ NO Normal [facility] Comment on above: Performed By: #### C BC #### [facility] [address] [place] [address] Dr. Ruthie Pan MCH (RBC) [Entitic mass] 30.3 pg Normal 26.7-34.0 [facility] Comment on above: Performed By: #### C BC #### [facility] [address] [place] [address] Dr. Ruthie Pan MCHC (RBC) [Mass/Vol] 33.5 g/dL Normal 29.9-35.2 [facility] Comment on above: Performed By: #### C BC #### [facility] [address] [place] [address] Dr. Ruthie Pan MCV (RBC) [Entitic vol] 90.6 fL Normal 81.0-99.0 [facility] Comment on above: Performed By: #### C BC #### [facility] [address] [place] [address] Dr. Ruthie Pan MONO # 0.6 103/ul Normal 0.3-0.8 [facility] Comment on above: Performed By: #### C BC #### [facility] [address] [place] [address] Dr. Ruthie Pan Monocytes/100 WBC (Bld) 6.4 % Normal 1.7-12.0 [facility] Comment on above: Performed By: #### C BC #### [facility] [address] [place] [address] Dr. Ruthie Pan NEUT # 5.5 103/ul Normal 1.4-6.5 [facility] Comment on above: Performed By: #### C BC #### [facility] [address] [place] [address] Dr. Ruthie Pan Neutrophils/100 WBC (Bld) 62.5 % Normal 43.0-75.0 [facility] Comment on above: Performed By: #### C BC #### [facility] [address] [place] [address] Dr. Ruthie Pan Platelet mean volume (Bld) [Entitic vol] 11.1 fL Normal 9.5-13.5 [facility] Comment on above: Performed By: #### C BC #### [facility] [address] [place] [address] Dr. Ruthie Pan PLT 150 103/ul Normal 150-450 [facility] Comment on above: Performed By: #### C BC #### [facility] [address] [place] [address] Dr. Ruthie Pan RBC 4.58 106/ul Normal 4.20-5.40 [facility] Comment on above: Performed By: #### C BC #### [facility] [address] [place] [address] Dr. Ruthie Pan WBC 8.8 103/ul Normal 4.0-11.0 [facility] Comment on above: Performed By: #### C BC #### [facility] [address] [place] [address] Dr. Ruthie Pan Covid-19 PCR ([facility])on 06-11 SARS-CoV-2 (COVID-19) RNA MICHAEL+probe Ql (Unsp spec) Not detected Normal NOT DETECTED [facility] Comment on above: Result Comment: This test is not yet approved or cleared by the [place] FDA. When there are no FDA-approved or cleared tests available, and other criteria are met, FDA can make tests available under an emergency access mechanism called an Emergency Use Authorization (EUA). The EUA for this test is supported by the [place] of Health and Human Service's (HHS's) declaration [...] with SARS-CoV-2. Performed By: #### C VDTBH ####[facility] [address] [place], [place] [address]Dr. Ruthie Pan INFLUENZA A AND B AGon 06-[facility] BELOW Normal [facility] Comment on above: Result Comment: Nega tive for Flu A protein angiten. Infection due to Flu A cannot be ruled out. Flu A angiten in the sample may be below the detection limit of the test. Performed By: #### I NFLUAB ####[facility] [address] [place], [place] [address]Dr. Ruthie Pan INFLUBNEGH SEE BELOW Normal [facility] Comment on above: Result Comment: Nega tive for Flu B protein antigen. Infection due to Flu B cannot be ruled out. Flu B antigen in the sample may be below the detection limit of the test. Performed By: #### I NFLUAB ####[facility] [address] [place], [place] [address]Dr. Ruthie Pan INFLUENZA A AG Negative Normal NEGATIVE SEE COMMENT [facility] Comment on above: Performed By: #### I NFLUAB ####[facility] [address] [place], [place] [address]Dr. Ruthie Pan INFLUENZA B AG Negative Normal NEGATIVE SEE COMMENT [facility] Comment on above: Performed By: #### I NFLUAB ####[facility] [address] [place], [place] [address]Dr. Ruthie Pan INTERNAL CONTROLS Within Normal Limits Normal Wi thin Normal Limits [facility] Comment on above: Performed By: #### I NFLUAB ####[facility] [address] [place], [place] [address]Dr. Ruthie Pan PROF 14(COMP METB)on 022 Albumin [Mass/Vol] 3.7 g/dL Normal 3.4-5.0 [facility] Comment on above: Performed By: #### C MP ####[facility] [address] [place], [place] [address]Dr. Ruthie Pan Albumin/Globulin [Mass ratio] 1.1 {ratio} Normal [facility] Comment on above: Performed By: #### C MP ####[facility] [address] [address]Dr. Ruthie Pan ALP [Catalytic activity/Vol] 125 U/L Critically high 46-116 [facility] Comment on above: Performed By: #### C MP ####[facility] [address] [place] [address]Dr. Ruthie Maxim ALT [Catalytic activity/Vol] 17 U/L Normal 14-59 [facility] Comment on above: Performed By: #### C MP ####[facility] Ak[address] [place], [place] [address]Dr. Michaelajean-claude Pan Anion gap [Moles/Vol] 9.8 mmol/L Normal [facility] Comment on above: Performed By: #### C MP ####[facility] Exf[address]ptxf[address] [place], [place] [address]Dr. Ruthie Maxim AST [Catalytic activity/Vol] 16 U/L Normal 15-37 [facility] Comment on above: Performed By: #### C MP ####[facility] [address] [place], [place] [address]Dr. Ruthie Maxim Bilirubin [Mass/Vol] 0.3 mg/dL Normal 0.2-1.0 [facility] Comment on above: Performed By: #### C MP ####[facility] [address] [place], [place] [address]Dr. Ruthie Maxim Calcium [Mass/Vol] 8.7 mg/dL Normal 8.5-10.1 [facility] Comment on above: Performed By: #### C MP ####[facility] S[address] [place], [place] [address]Dr. Ruthie Pan Chloride [Moles/Vol] 103 mmol/L Normal 98-107 [facility] Comment on above: Performed By: #### C MP ####[facility] [address] [place], [place] [address]Dr. Ruthie Pan CO2 [Moles/Vol] 28.3 mmol/L Normal 21.0-32.0 [facility] Comment on above: Performed By: #### C MP ####[facility] [address] [place] [address]Dr. Ruthie Pan Creatinine [Mass/Vol] 0.62 mg/dL Normal 0.55-1.02 [facility] Comment on above: Performed By: #### C MP ####[facility] [address] [place] [address]Dr. Ruthie Pan EGFR-AF ERITREAN >60 Normal >=60 [facility] Comment on above: Performed By: #### C MP ####[facility] [address] [place] [address]Dr. Ruthie Pan EGFR-NON AF ERITREAN >60 Normal >=60 [facility] Comment on above: Performed By: #### C MP ####[facility] [address] [place], [place] [address]Dr. Ruthie Pan Globulin (S) [Mass/Vol] 3.4 g/dL Normal [facility] Comment on above: Performed By: #### C MP ####[facility] [address] [place], [place] [address]Dr. Ruthie Pan Glucose [Mass/Vol] 103 mg/dL Normal 74-106 [facility] Comment on above: Performed By: #### C MP ####[facility] [address] [place] [address]Dr. Ruthie Pan Potassium [Moles/Vol] 3.1 mmol/L Critically low 3.5-5.1 [facility] Comment on above: Performed By: #### C MP ####[facility] [address] [place], [place] [address]Dr. Ruthie Pan Protein [Mass/Vol] 7.1 g/dL Normal 6.4-8.2 [facility] Comment on above: Performed By: #### C MP ####[facility] [address] [place] [address]Dr. Ruthie Pan Sodium [Moles/Vol] 140 mmol/L Normal 136-145 [facility] Comment on above: Performed By: #### C MP ####[facility] [address] [place], [place] [address]UcDr. Ruthie Pan Urea nitrogen [Mass/Vol] 6.0 mg/dL Critically low 7.0-18. 0 [facility] Comment on above: Performed By: #### C MP ####[facility] [address] [place], [place] [address]GlDr. Ruthie Pan Urea nitrogen/Creatinine [Mass ratio] 9.7 mg/mg Normal [facility] Comment on above: Performed By: #### C MP ####[facility] [address] [place] [id number] Pan Urine culture routineOrdered By: Rufina Ruiz on 06-09-2022 Bacteria identified Cx Nom (U) Escherichia coli [facility] Urine culture routineOrdered By: Rufina Ruiz on 04-16-2022 Bacteria identified Cx Nom (U) Escherichia coli [facility] AMYLASEon 11-24-2021 Amylase [Catalytic activity/Vol] 85 U/L Normal 25-115 [facility] Comment on above: Performed By: #### C MP, ROSALIA, LIPA #### [facility] [address] [address] [address] Ruthie Pan CBC AUTO DIFFon 11-24-2021 BASO # 0.0 103/ul Normal 0.0-0.1 [facility] Comment on above: Performed By: #### C BC ####[facility] [address] [place] [address]DrGideon Pan Basophils/100 WBC (Bld) 0.4 % Normal 0.2-2.0 [facility] Comment on above: Performed By: #### C BC ####[facility] [address] [place] [id number] Pan EO # 0.2 103/ul Normal 0.0-0.7 [facility] Comment on above: Performed By: #### C BC ####[facility] [address] [place] [id number]. Ruthie Pan Eosinophils/100 WBC (Bld) 1.6 % Normal 0.9-7.0 [facility] Comment on above: Performed By: #### C BC ####[facility] [address] [place] [address]Dr. Ruthie Pan Erythrocyte distribution width (RBC) [Ratio] 13.8 % Normal 11.0-15.0 [facility] Comment on above: Performed By: #### C BC ####[facility] [address] [place] [address]Dr. Ruthie Pan Hematocrit (Bld) [Volume fraction] 38.5 % Normal 36.0-48.0 [facility] Comment on above: Performed By: #### C BC ####[facility] [address] [place], [place] [address]Dr. Ruthie Pan Hemoglobin (Bld) [Mass/Vol] 12.3 g/dL Normal 12.0-16.0 [facility] Comment on above: Performed By: #### C BC ####[facility] [address] [place], [place] [address]Dr. Ruthie Pan IG # 0.04 10e3/ul Critically high 0.00-0.03 [facility] Comment on above: Performed By: #### C BC ####[facility] [address] [place], [place] [address]Dr. Ruthie Pan IG % 0.4 % Normal 0.0-0.5 [facility] Comment on above: Performed By: #### C BC ####[facility] [address] [place], [place] [address]Dr. Ruthie Maxim LYMPH # 3.4 103/ul Normal 1.2-3.8 [facility] Comment on above: Performed By: #### C BC ####[facility] [address] [place], [place] [address]Dr. Michaelajean-claude Pan Lymphocytes/100 WBC (Bld) 31.2 % Normal 20.5-60.0 [facility] Comment on above: Performed By: #### C BC ####[facility] [address] [place], [place] [address]Dr. Ruthie Pan MANUAL DIFF REQ NO Normal [facility] Comment on above: Performed By: #### C BC ####[facility] [address] [place] [address]DrGideon Pan MCH (RBC) [Entitic mass] 31.1 pg Normal 26.7-34.0 [facility] Comment on above: Performed By: #### C BC ####[facility] [address] [place] [address]DrGideon Pan MCHC (RBC) [Mass/Vol] 31.9 g/dL Normal 29.9-35.2 [facility] Comment on above: Performed By: #### C BC ####[facility] [address] [place] [address]DrGideon Pan MCV (RBC) [Entitic vol] 97.5 fL Normal 81.0-99.0 [facility] Comment on above: Performed By: #### C BC ####[facility] [address] [place], [place] [address]DrGideon Pan MONO # 0.9 103/ul Critically high 0.3-0.8 [facility] Comment on above: Performed By: #### C BC ####[facility] [address] [place], [place] [address]DrGideon Pan Monocytes/100 WBC (Bld) 8.0 % Normal 1.7-12.0 [facility] Comment on above: Performed By: #### C BC ####[facility] [address] [place], [place] [address]DrGideon Pan NEUT # 6.4 103/ul Normal 1.4-6.5 [facility] Comment on above: Performed By: #### C BC ####[facility] [address] [place], [place] [address]DrGideon Pan Neutrophils/100 WBC (Bld) 58.4 % Normal 43.0-75.0 [facility] Comment on above: Performed By: #### C BC ####[facility] [address] [place], [place] [address]DrGideon Pan Platelet mean volume (Bld) [Entitic vol] 10.7 fL Normal 9.5-13.5 [facility] Comment on above: Performed By: #### C BC ####[facility] [address] [place], [place] [address]Yp. Ruthie Pan PLT 207 103/ul Normal 150-450 [facility] Comment on above: Performed By: #### C BC ####[facility] [address] [place], [place] [address]Hh. Ruthie Pan RBC 3.95 106/ul Critically low 4.20-5.40 [facility] Comment on above: Performed By: #### C BC ####[facility] [address] [place], [place] [address]Kk. Ruthie Pan WBC 11.0 103/ul Normal 4.0-11.0 [facility] Comment on above: Performed By: #### C BC ####[facility] [address] [place], [place] [address]Zg. Ruthie Pan CT ABD/PELV W CONon 11-25-19 [...] by: LUDIN ANGELES Date: 2021-11-24 03:59 Normal [facility] LACTATE/LACTIC ACIDon 2021 Lactate [Moles/Vol] 1.0 mmol/L Normal 0.4-1.9 [facility] Comment on above: Performed By: #### L ACT #### [facility] [address] [place] [address] Dr. Ruthie Pan LIPASEon 11-24-2021 Lipase [Catalytic activity/Vol] 123.0 U/L Normal 73.0-393.0 [facility] Comment on above: Performed By: #### C MP, ROSALIA, LIPA #### [facility] [address] [place] [address] Dr. Ruthie Pan PROF 14(COMP METB)on 022 Albumin [Mass/Vol] 3.3 g/dL Critically low 3.4-5.0 [facility] Comment on above: Performed By: #### C MP, ROSALIA, LIPA #### [facility] [address] [place] [address] Dr. Ruthie Pan Albumin/Globulin [Mass ratio] 1.1 {ratio} Normal [facility] Comment on above: Performed By: #### C MP, ROSALIA, LIPA #### [facility] [address] [place] [address] Dr. Ruthie Pan ALP [Catalytic activity/Vol] 139 U/L Critically high 46-116 [facility] Comment on above: Performed By: #### C MP, ROSALIA, LIPA #### [facility] [address] [place] [address] Dr. Ruthie Pan ALT [Catalytic activity/Vol] 17 U/L Normal 14-59 [facility] Comment on above: Performed By: #### C MP, ROSALIA, LIPA #### [facility] [address] [place] [address] Dr. Ruthie Pan Anion gap [Moles/Vol] 10.5 mmol/L Normal [facility] Comment on above: Performed By: #### C MP, ROSALIA, LIPA #### [facility] [address] [place] [address] Dr. Ruthie Pan AST [Catalytic activity/Vol] 14 U/L Critically low 15-37 [facility] Comment on above: Performed By: #### C MP, ROSALIA, LIPA #### [facility] [address] [place] [address] Dr. Ruthie Pan Bilirubin [Mass/Vol] 0.2 mg/dL Normal 0.2-1.0 [facility] Comment on above: Performed By: #### C NARESH ROSALIA, LIPA #### [facility] [address] [place] [address] Dr. Ruthie Pan Calcium [Mass/Vol] 8.3 mg/dL Critically low 8.5-10.1 Th [facility] Comment on above: Performed By: #### C MP, ROSALIA, LIPA #### [facility] [address] [place] [address] Dr. Ruthie Pan Chloride [Moles/Vol] 103 mmol/L Normal 98-107 [facility] Comment on above: Performed By: #### C NARESH ROSALIA, LIPA #### [facility] [address] [place] [address] Dr. Ruthie Pan CO2 [Moles/Vol] 27.9 mmol/L Normal 21.0-32.0 [facility] Comment on above: Performed By: #### C NARESH ROSALIA, LIPA #### [facility] [address] [place] [address] Dr. Ruthie Pan Creatinine [Mass/Vol] 0.71 mg/dL Normal 0.55-1.02 [facility] Comment on above: Performed By: #### C NARESH ROSALIA, LIPA #### [facility] [address] [place] [address] Dr. Ruthie Pan EGFR-AF ERITREAN >60 Normal >=60 [facility] Comment on above: Performed By: #### C MP, ROSALIA, LIPA #### [facility] [address] [place] [address] Dr. Ruthie Pan EGFR-NON AF ERITREAN >60 Normal >=60 [facility] Comment on above: Performed By: #### C MP, ROSALIA, LIPA #### [facility] [address] [place] [address] Dr. Ruthie Pan Globulin (S) [Mass/Vol] 3.1 g/dL Normal [facility] Comment on above: Performed By: #### C NARESH ROSALIA, LIPA #### [facility] [address] [place] [address] Dr. Ruthie Pan Glucose [Mass/Vol] 113 mg/dL Critically high 74-106 [facility] Comment on above: Performed By: #### C MP, ROSALIA, LIPA #### [facility] [address] [place] [address] Dr. Ruthie Pan Potassium [Moles/Vol] 3.4 mmol/L Critically low 3.5-5.1 [facility] Comment on above: Performed By: #### C NARESH ROSALIA, LIPA #### [facility] [address] [place] [address] Dr. Ruthie Pan Protein [Mass/Vol] 6.4 g/dL Normal 6.4-8.2 [facility] Comment on above: Performed By: #### C NARESH ROSALIA, LIPA #### [facility] [address] [place] [address] Dr. Ruthie Pan Sodium [Moles/Vol] 138 mmol/L Normal 136-145 [facility] Comment on above: Performed By: #### C ROSALIA INFANTE, LIPA #### [facility] [address] [place] [address] Dr. Ruthie Pan Urea nitrogen [Mass/Vol] 10.0 mg/dL Normal 7.0-18.0 [facility] Comment on above: Performed By: #### C NARESH ROSALIA, LIPA #### [facility] [address] [place] [address] Dr. Ruthie Pan Urea nitrogen/Creatinine [Mass ratio] 14.1 mg/mg Normal [facility] Comment on above: Performed By: #### C ROSALIA INFANTE, LIPA #### [facility] [address] [place] [address] Dr. Ruthie Pan US SINGLE QUAD RT [...] MILE BENITEZ Date: 2021-11-24 07:56 Normal [facility] XR SHOULDER RT 2V or >on [...] [place] VENTURA Date: 2021-11-21 02:37 Normal [facility] Social History Date Type Detail Facility Start: 07-12-1994 Tobacco smoking status MDIS Smokes tobacco daily [facility] Start: 05-26-2023 End: 08-19-2023 Cigarettes smoked current (pack per day) - Reported 0.5 [facility] Start: 08-19-2023 Alcohol intake Not Asked [facility] Start: 05-26-2023 [facility] At [facility] Start: 05-25-2023 Tobacco Comment Smokes 6-10 cigs/day. [facility] Start: 05-25-2023 Alcohol Comment caffeine intake: 2-3 cups per day. [facility] Start: 05-25-2023 Gender identity Identifies as female gender (finding) [facility] Start: 05-25-2023 Sexual orientation Heterosexual (finding) [facility] Start: 12-16-2020 End: 07-22-2022 Tobacco smoking status NHIS Smoker (finding) [facility] Start: 11-11-2020 End: 10-27-2022 Tobacco smoking status Heavy tobacco smoker (finding) [facility] Start: 07-12-1994 History of tobacco use Cigarette Smoker [facility] Start: 1977 Sex Assigned At Female [facility] Tobacco smoking status Never Execu tive [facility] Vital Signs Date Time Vital Sign Value Performing Clinician Facility 07-23-2022 00:20-0500 Diastolic blood pressure 65 mm[Hg] [facility] [employer] Work Phone: [facility] 07-23-2022 00:20-0500 Heart rate 89 /min [facility] [employer] Work Phone: [facility] 07-23-2022 00:20-0500 Respiratory rate 18 /min [facility] [employer] Work Phone: [facility] 07-23-2022 00:20-0500 SaO2% (BldA) [Mass fraction] 99 % [facility] [employer] Work Phone: [facility] 07-23-2022 00:20-0500 Systolic blood pressure 103 mm[Hg] [employer] Work Phone: [facility] 07-22-2022 19:43-0500 Body height 154.94 cm [facility] [employer] Work Phone: [facility] 07-22-2022 19:43-0500 Body temperature 98.4 [degF] [employer] Work Phone: [facility] 07-22-2022 19:43-0500 Body weight 64 kg [facility] [employer] Work Phone: [facility] 11-23-2021 23:23-0400 Body temperature 98.06 [degF] [facility] 11-23-2021 23:23-0400 Diastolic blood pressure 63 mm[Hg] [facility] [facility] 11-23-2021 23:23-0400 Heart rate 81 /min [facility] ([employer] [facility] 11-23-2021 23:23-0400 Respiratory rate 16 /min [facility] ([employer] [facility] 11-23-2021 23:23-0400 SaO2% (BldA) [Mass fraction] 97 % [facility] [facility] [facility] 11-23-2021 23:23-0400 Systolic blood pressure 102 mm[Hg] [facility] ([employer] [facility] Clinical Note 10-27-2022 Note Date & Type [...] yes avoids baths/hot tubs yes avoids scented [employer] products yes urinates after sexual activity yes. [...] Will order Local anesthesia. Cipro sent to [facility]. 2. History of kidney stones (Z87.442: Personal history of urinary calculi) Last stone was 8 months ago. Passes stones on her own without surgical intervention. CT AP w/ contrast 07/22/22 neg for stones. there are symmetric bilateral renal nephrograms, without hydro. Follow-up With When Contact Information DRE ANSARI, Adam Arrington, URL [address] [place] [address]- Additional Instructions: cysto/UD Patient Education Urinary Tract [...] Daily Vitamin B- (more content not included)... [facility] Comment on above: Result Comment: Elec tronically Signed By: RUFINA TREADWELL PA-C\.br\Date and Time Signed: 10/27/22 15:14 EDT\.br\Electronically Co-Signed By: Maite Langford.br\Date and Time Co-Signed: 10/27/22 15:10 EDT Hospital [...] to strengthen the arm. General instructions Take [id number] and prescription medicines only as told by [...] 04/07/2006 Document Revised: 01/10/2019 Document Reviewed: 01/10/2019 [employer] Patient Education 2019 Rescale Follow Up Care 11/23/2021 23:20:28 With:Cande Hinds Address: [address] [place] [address]- Business (1) When:12/01/2021 only if needed [facility] Evaluation + Plan note 11-23-2021 Note Date & Type Note Facility 11-23-2021 Evaluation + Plan note Extrac zakia from: Title:ED Note Author:Venancio Orozco DO Date :11/23/21 Acute pain of right shoulder (M25.511: Pain in right shoulder) Orders: acetaminophen-oxycodone, 1 tab(s), Tab, Oral, Once, Stop date 11/23/21 23:37:00 EDT, STAT, Start date 11/23/21 23:37:00 EDT Sling Apply XR Shoulder Complete Right [facility] Evaluation note Note Date & Type Note Facility Evaluation note No assessment information availa [facility] Work Phone: Hospital course Narrative Note Date & Type Note Facility Hospital course Narrative No data available for this section [facility] Hospital Discharge instructions Note Date & [...] the other day did show an infection. [facility] Work Phone: Hospital Discharge instructions Note Date & Type Note Facility Hospital Discharge instructions No data available for this section [facility] Progress note Note Date & Type Note Facility Progress note No data available for this section [facility] Chief Complaint and Reason for [...] Status: Inactive Member Role Status Dates Services [facility] Primary Care Prov ider, Family Provider Active ZANE Driscoll Attending Vasu arrington Active Team Status: Active Member Role Status Dates Services [facility] Family Provider Active Services Family [facility] Primary Care Provider Active Team Status: Inactive Member Role Status Dates Services Family [facility] Family Provider Active ZANE Driscoll Active Team Status: Active Member Role Status Dates Services Family [facility] Family Provider Active Team Status: Inactive Member Role Status Dates [facility] Primary Care Provider, Family P janey Active Salvador Maier Jr, MD Emergency Provider Active Team Status: Inactive Member Role Status Dates Services [facility] Family Provider Active ZANE Driscoll Attending Provide r Active NON STAFF Primary Care Provider Active Team Status: Inactive Member Role Status Dates Services [facility] Family Provider Active Damian Jovel DPM Attending Provider Active Team Status: Inactive Member Role Status Dates Services [facility] Family Provider Active Brian Wood , DO Attending Provider Active [employer] Car [employer] Relationship Specialty Start Date End Date Unallocated, [place] [address] PCP - General 05/26/23 Team Status: Inactive Member Role Status Dates Services [facility] Primary Care Provider Active Start: September 28, 2023 End: September 28, 2023 AZNE Corrales Attending Provider Active Start: September 27 End: September 28, 2023 Goals (unrecognized section and content) Goals may be documented in a n alternate section INFORMATION SOURCE (unrecogn ized section and content) DATE CREATED AUTHOR 10/05/2022 [facility] DATE CREATED AUTHOR AUTHOR'S ORGANIZ ATION 12/18/2022 [facility] DATE CREATED AUTHOR AUTHOR'S ORGANIZ ATION 05/28/2023 [facility] DATE CREATED AUTHOR AUTHOR'S ORGANIZ ATION 10/21/[address] [facility] FOR RECORDS PERTAINING TO PATIENTS WHO ARE [...] BE BASED ON THE PRIMARY CLINICAL RECORDS. [employer] provides no warranty or guarantee of the accuracy or completeness of information in this document.
[2023-12-20 18:10] VITALS: BP 110/37; PULSE 72; O2SAT 100
--- NOTE | 2023-12-20 18:14 | ED_ITS ---
Documented by User: Krista Andrews 12/20/23 19:28 HPI - Extremity Problem General Chief complaint: Extremity Problem, Nontraumatic Stated complaint: upper extremity pain-shoulder Time Seen by Provider: 12/20/23 18:12 Source: patient Mode of arrival: walk-in Limitations: no limitations History of Present Illness HPI Narrative: 48 year old female presents to the ED for right shoulder pain. Onset was yesterday. Denies fever, chills, injury, N/T, weakness. Reports surgery to repair a bicep tear a few years ago. Related Data Home Medications ?Medication ?Instructions ?Recorded ?Confirmed albuterol sulfate 2.5 mg/3 mL 2.5 mg inhalation Q6H PRN 06/05/23 10/20/23 (0.083 %) solution for nebulization shortness of breath or wheezing fluticasone 250 mcg-salmeterol 50 1 inh inhalation BID 06/05/23 10/20/23 mcg/dose blistr powdr for inhalation (Advair Diskus) tizanidine 2 mg tablet 2 mg PO Q12H 06/05/23 10/20/23 albuterol sulfate 90 mcg/actuation 2 puff inhalation Q6H PRN 07/21/23 10/20/23 aerosol inhaler shortness of breath or wheezing fluoxetine 40 mg capsule 40 mg PO QDAY 07/21/23 10/20/23 folic acid 1 mg tablet 1 mg PO QDAY 07/21/23 10/20/23 olanzapine 10 mg tablet 10 mg PO QDAY 07/21/23 10/20/23 ropinirole 0.5 mg tablet 1 mg PO .qhs 07/21/23 10/20/23 Previous Rx's ?Medication ?Instructions ?Recorded tizanidine 2 mg capsule (Zanaflex) 2 mg PO Q8H PRN muscle spasm #12 12/20/23 caps Allergies Allergy/AdvReac Type Severity Reaction Status Date / Time aspirin Allergy Severe Verified 12/20/23 17:26 haloperidol [From Haldol] Allergy Severe Verified 12/20/23 17:26 hydroxyzine [From Vistaril] Allergy Severe Verified 12/20/23 17:26 ketorolac [From Toradol] Allergy Severe Verified 12/20/23 17:26 magnesium sulfate Allergy Severe Verified 12/20/23 17:26 naproxen [From Anaprox] Allergy Severe Verified 12/20/23 17:26 Review of Systems ROS Constitutional Denies: fever or chills Ears, nose, mouth, and throat Denies: neck pain Cardiovascular Denies: chest pain Respiratory Denies: shortness of breath or cough Musculoskeletal Reports: extremity pain; Denies: back pain Integumentary/Breast Denies: rash Neurological Denies: headache, numbness in extremities, weakness in extremities or dizziness PFSH PFSH Social History Smoking status: Current every day smoker Exam Constitutional Vital Signs, click to edit/add: Last Vital Signs Temp 98.3 F 12/20/23 17:22 Pulse 75 12/20/23 19:27 Resp 16 12/20/23 19:27 BP 128/82 12/20/23 19:27 Pulse Ox 97 12/20/23 19:27 O2 Del Method Room Air 12/20/23 19:27 Common normals: no apparent distress and oriented x3 General appearance: cooperative Eye Common normals: conjunctivae normal and no scleral icterus Neck & C-Spine Common normals: supple Cervical spine: paracervical muscle tenderness and paracervical muscle spasm; no cervical spine tenderness Chest Chest: symmetrical chest wall rise Respiratory Common normals: normal respiratory effort Effort & inspection: able to speak in complete sentences and symmetric chest movement Cardio Common normals: regular rate Peripheral pulses: radial pulses present Extremity Right upper extremity: upper arm (No swelling, tenderness, or deformity.) Other: Tenderness to right superior shoulder area with muscle spasms. No deformity. Full ROM. Distal sensation intact. Course Vital Signs Vital signs: Vital Signs Temperature 98.3 F 12/20/23 17:22 Pulse Rate 78 12/20/23 17:22 Respiratory Rate 16 12/20/23 17:22 Blood Pressure 110/69 12/20/23 17:22 Pulse Oximetry 96 12/20/23 17:22 Oxygen Delivery Method Room Air 12/20/23 17:22 Temperature 98.3 F 12/20/23 17:22 Pulse Rate 75 12/20/23 19:27 Respiratory Rate 16 12/20/23 19:27 Blood Pressure 128/82 12/20/23 19:27 Pulse Oximetry 97 12/20/23 19:27 Oxygen Delivery Method Room Air 12/20/23 19:27 MDM - Extremity (Nontraumatic) MDM Narrative Medical decision making narrative: X-ray was negative for acute findings. Findings were discussed with the patient. A prescription was provided for Zanaflex. Follow up with pcp and/or orthopedist for a recheck, further evaluation and treatment. Medical Records Attestation: I reviewed the patient's medical records. Imaging Data XR shoulder: Attestation: I have reviewed the pertinent imaging results. Radiologist's impression: ITS Impressions Shoulder X-Ray 12/20/23 17:26 IMPRESSION: No change since 11/21/2021. Electronically authenticated by: HERMILA JACOBS Date: 12/20/2023 18:54 Discharge Plan Discharge Stand Alone Forms: Portal Instructions Chief Complaint: Extremity Problem, Nontraumatic Clinical Impression: Pain in right shoulder Patient Disposition: Home, Self-Care Time of Disposition Decision: 19:19 Condition: Good Mode of Transportation: Private Vehicle Prescriptions / Home Meds: New tizanidine [Zanaflex] 2 mg capsule 2 mg PO Q8H PRN (Reason: muscle spasm) Qty: 12 0RF No Action albuterol sulfate 2.5 mg /3 mL (0.083 %) solution for nebulization 2.5 mg inhalation Q6H PRN (Reason: shortness of breath or wheezing) tizanidine 2 mg tablet 2 mg PO Q12H fluticasone propion-salmeterol [Advair Diskus] 250-50 mcg/dose blister with device 1 inh inhalation BID fluoxetine 40 mg capsule 40 mg PO QDAY olanzapine 10 mg tablet 10 mg PO QDAY ropinirole 0.5 mg tablet 1 mg PO .qhs folic acid 1 mg tablet 1 mg PO QDAY albuterol sulfate 90 mcg/actuation HFA aerosol inhaler 2 puff INHALATION Q6H PRN (Reason: shortness of breath or wheezing) Print Language: Greenlandic Instructions: Shoulder Pain (ED) Additional Instructions: Return to the ER for new or worsening symptoms. Follow up with your family physician and/or orthopedist for a recheck, further evaluation and treatment. Referrals: [facility] [Primary Care Provider] - 1 week Discharge Date/Time: 12/20/23 19:27 Documented by User: Konrad Raines MD 12/20/23 20:26 HPI - Extremity Problem General Chief complaint: Extremity Problem, Nontraumatic Stated complaint: upper extremity pain-shoulder Time Seen by Provider: 12/20/23 18:12 Related Data Home Medications ?Medication ?Instructions ?Recorded ?Confirmed albuterol sulfate 2.5 mg/3 mL 2.5 mg inhalation Q6H PRN 06/05/23 10/20/23 (0.083 %) solution for nebulization shortness of breath or wheezing fluticasone 250 mcg-salmeterol 50 1 inh inhalation BID 06/05/23 10/20/23 mcg/dose blistr powdr for inhalation (Advair Diskus) tizanidine 2 mg tablet 2 mg PO Q12H 06/05/23 10/20/23 albuterol sulfate 90 mcg/actuation 2 puff inhalation Q6H PRN 07/21/23 10/20/23 aerosol inhaler shortness of breath or wheezing fluoxetine 40 mg capsule 40 mg PO QDAY 07/21/23 10/20/23 folic acid 1 mg tablet 1 mg PO QDAY 07/21/23 10/20/23 olanzapine 10 mg tablet 10 mg PO QDAY 07/21/23 10/20/23 ropinirole 0.5 mg tablet 1 mg PO .qhs 07/21/23 10/20/23 Previous Rx's ?Medication ?Instructions ?Recorded tizanidine 2 mg capsule (Zanaflex) 2 mg PO Q8H PRN muscle spasm #12 12/20/23 caps Allergies Allergy/AdvReac Type Severity Reaction Status Date / Time aspirin Allergy Severe Verified 12/20/23 17:26 haloperidol [From Haldol] Allergy Severe Verified 12/20/23 17:26 hydroxyzine [From Vistaril] Allergy Severe Verified 12/20/23 17:26 ketorolac [From Toradol] Allergy Severe Verified 12/20/23 17:26 magnesium sulfate Allergy Severe Verified 12/20/23 17:26 naproxen [From Anaprox] Allergy Severe Verified 12/20/23 17:26 PFSH PFSH Social History Smoking status: Current every day smoker Exam Constitutional Vital Signs, click to edit/add: Last Vital Signs Temp 98.3 F 12/20/23 17:22 Pulse 75 12/20/23 19:27 Resp 16 12/20/23 19:27 BP 128/82 12/20/23 19:27 Pulse Ox 97 12/20/23 19:27 O2 Del Method Room Air 12/20/23 19:27 Course Vital Signs Vital signs: Vital Signs Temperature 98.3 F 12/20/23 17:22 Pulse Rate 78 12/20/23 17:22 Respiratory Rate 16 12/20/23 17:22 Blood Pressure 110/69 12/20/23 17:22 Pulse Oximetry 96 12/20/23 17:22 Oxygen Delivery Method Room Air 12/20/23 17:22 Temperature 98.3 F 12/20/23 17:22 Pulse Rate 75 12/20/23 19:27 Respiratory Rate 16 12/20/23 19:27 Blood Pressure 128/82 12/20/23 19:27 Pulse Oximetry 97 12/20/23 19:27 Oxygen Delivery Method Room Air 12/20/23 19:27 MDM - Extremity (Nontraumatic) MDM Narrative Medical decision making narrative: X-ray was negative for acute findings. Findings were discussed with the patient. A prescription was provided for Zanaflex. Follow up with pcp and/or orthopedist for a recheck, further evaluation and treatment. I, Dr Raines, have reviewed the above progress note and course of action in the ER; agree with the above. I have personally gone over history and physical, and discussed disposition and treatment plan with the patient. Imaging Data XR shoulder: Radiologist's impression: ITS Impressions Shoulder X-Ray 12/20/23 17:26
[2023-12-20 19:27] VITALS: BP 128/82; PULSE 75; O2SAT 97
== END 2023-12-20 19:27 | disposition home or self-care (01) ==
PROVIDERS: Emergency Provider Emergency Medicine
DX: M25.511 Pain in right shoulder (principal); F17.200 Nicotine dependence, unspecified, uncomplicated
CPT/HCPCS: 73030; 99283

== ENCOUNTER 2024-05-09 17:12 | Emergency (ER) | payer MEDICAID, SELFPAY ==
[2024-05-09 17:21] VITALS: BP 114/66; PULSE 78; TEMP 36.9; O2SAT 99; BMI 23.2
[2024-05-09 17:35] LABS: Bilirubin Urine NEGATIVE (NEGATIVE); Blood Urine LARGE (NEGATIVE); Clarity Urine SL CLOUDY (CLEAR); Color Urine YELLOW (YELLOW); Glucose Urine UA NEGATIVE (NEGATIVE); Ketones Urine 15 mg/dL (NEGATIVE); Leukocyte Esterase Urine MODERATE (NEGATIVE); Nitrite Urine POSITIVE (NEGATIVE); Protein Urine >=300 mg/dL (NEG/TRACE); Specific Gravity Urine >=1.030 (1.005-1.025)
--- OUTSIDE RECORDS SUMMARY | 2024-05-09 17:35 | XMS_ITS | CCD ---
Author Organization [facility] Care Team Providers Care Commercial Collections Driver Name Role Phone Cande Hinds Primary Care Physician [phone] Bree Jimenes Unavailable Unavailable [facility] Primary Care Provider [phone] ZANE Ruiz Attending Pr ovider [facility] Primary Care Provider [phone] ZANE Ruiz Attending Pr ovider ZANE Ruiz Attending Pr ovider [facility] Primary Care Provider [phone] MD Salvador Maier Jr Emergency Provider ZANE Ruiz Attending Pr ovider NON STAFF Primary Care Provider [facility] Primary Care Provider MD Salvador Maier Jr Emergency Provider [facility] Primary Care Unavaila sindhu ROSE ., DR RICH Admitting Unavailable ROSE ., DR RICH Attending Unavailable ROSE ., DR RICH Consulting Unavailable [facility] Primary Care Unavaila sindhu ANGELA, DR ADDY Arrington Admitting Unavailable COREEN, DR ADDY Arrington Attending Unavailable ROSALIA ARROYO Consulting Unavailable [facility] Primary Care Unavaila MU Bose Admitting Unavailable MU SHERWOOD Attending Dom BENITEZ, DR MILE Pedersen Consulting Unavailable PAY ., DR ARGUETA Consulting Unavailable MU SHERWOOD Consulting Unavailable LUDIN ANGELES Consulting Unavailable [facility] Primary Care Unavaila ble COREEN, DR ADDY Arrington Admitting Unavailable COREEN, DR ADDY Arrington Attending Unavailable COREEN, DR ADDY Arrington Consulting Unavailable IRENE VENTURA Consulting Unavailable [facility] Primary Care Unavaila ble MARKER ., DR GARCIA Admitting Unavailable MARKER ., DR GARCIA Attending Unavailable MARKER ., DR GARCIA Consulting Unavailable [facility] Primary Care Unavaila ble SHAWNA ., TREVOR Admitting Unavailable SHAWNA ., TREVOR Attending Unavailable SHAWNA ., TREVOR Consulting Unavailable [facility] Primary Care Unavaila ble SHAWNA ., TREVOR Admitting Unavailable SHAWNA ., TREVOR Attending Unavailable AYE ., PA ZOË Consulting Unavailsanchez VILLALPANDO, KAE Consulting Unavailable Ramiro, PATIENT SERVICE COORDINATORTrayC Rufina Lerma Attending Pr ovider ZANE Ruiz Attending Pr ovider ZANE Ruiz Attending Pr ovider MORGAN Jovel Attending Provider [phone] Israel, DO Torres Attending Provider Unallocated, Noms Provider Primary Care Provider [facility] Primary Care Provider ZANE Ruiz Attending Pr ovider ZANE Ruiz Attending Pr ovider Ramiro, Rufina Lerma Attending U navailable Ramiro, Rufina Lerma Admitting U navailable Ruiz, Rufina Lerma Attending U navailable Ruiz, Rufina Lerma Admitting U navailable Ruiz, Rufina Lerma Attending U navailable Ruiz, Rufina Lerma Admitting U [facility] Primary Care Unavaila Pepe Busby Referring Unavailable Mast - FHS, Brian Attending Unavailable Mast - FHS, Brian Admitting Unavailable Damian Jovel Attending Unavailable Damian Jovel Admitting Unavailable DAMIAN JOVEL Attending Unavailable MICHAEL TORRES Referring Unavailable MICHAEL TORRES Attending Unavailable RUFINA RUIZ Referring Unavailable MARICRUZ ARREOLA Attending Unavailable BARBIE TORRESSON Alistair Referring Unavailable MICHAEL TORRES Attending Unavailable BARBIE TORRESSON A Referring Unavailable MICHAEL TORRES A Attending Unavailable MICHAEL TORRES A Attending Unavailable BARBIE TORRESSON A Referring Unavailable Brian, Michael A Referring Unavailable DO Michael Torres A Attending Unavailable Brian, DO Hoskinsson A Admitting Unavailable Brian, DO Michael A Referring Unavailable Brian, DO Michael A Attending Unavailable Brian, DO Michael A Admitting Unavailable Unallocated , Noms Provider Primary Care Provi nitesh Rufina Ruiz MD Unavailable [phone] Allergies Allergy Classification Reported Allergen(s) Allergy Type Date of Onset Reaction(s) Facility (15 sources) Aspirin; Translations: [aspirin] Drug Allergy 12-17-19 vomiting, Nausea [facility] (18 sources) Haloperidol; Translations: [haloperidol] Drug Allergy 12-17-19 jaw locked sideways, Anaphylaxis [facility] (18 sources) hydrOXYzine; Translations: [hydroxyzine] Drug Allergy 12-17-19 rash[facility] (4 sources) Ketorolac; Translations: [ketorolac] Drug Allergy migraines [facility] (15 sources) Magnesium Sulfate; Translations: [magnesium sulfate] Drug Allergy 12-17-19 vomiting [facility] (18 sources) metroNIDAZOLE; Translations: [metronidazole] Drug Allergy 12-17-[address] [facility] (18 sources) Naproxen; Translations: [naproxen] Drug Allergy 12-17-19 Other [facility] (7 sources) NSAIDs; Translations: [NSAIDs] Drug allergy 04-23-20 23 Other [facility] (7 sources) Sulfamethoxazole / Trimethoprim; Translations: [sulfamethoxazole-t rimethoprim] Drug Allergy 05-26-20 23 vomiting [facility] (12 sources) Sulfamethoxazole; Translations: [sulfamethoxazole] Drug Allergy 12-17-19 [facility] (14 sources) Trimethoprim; Translations: [trimethoprim] Drug Allergy 12-17-19 [facility] (12 sources) NSAIDS (Non-Steroidal Anti-Inflamma; Translations: [NSAIDS (Non-Steroidal Anti-Inflamma] Allergy to substance 12-17-19 [facility] (1 source) Aspirin Drug Allergy 10-08-19 15 [facility] (1 source) Haloperidol Drug Allergy 10-08-19 15 [facility] (1 source) hydrOXYzine Drug Allergy 09-14-19 16 [facility] (1 source) Iothalamate Drug Allergy 09-16-19 16 [facility] (1 source) Ketorolac Drug Allergy 09-14-19 16 [facility] (1 source) Magnesium Sulfate Drug Allergy 10-08-19 15 [facility] (1 source) metroNIDAZOLE Drug Allergy 10-08-19 15 [facility] (1 source) Naproxen Drug Allergy 10-08-19 15 [facility] (1 source) NSAIDs Drug allergy (disorder) 10-08-19 15 [facility] (1 source) Sulfonamides (Antibiotic) Drug allergy (disorder) 10-08-19 15 [facility] (3 sources) Aluminum aspirin Drug Allergy 04-23-20 [facility] (3 sources) Ketorolac Allergy to substance 05-26-20 [facility] (3 sources) Ketorolac trometamol Propensity to adverse reactions 04-23-20 [facility] (3 sources) Magnesium Salicylate Drug Allergy 05-26-20 Other [facility] (3 sources) Magnesium sulfate Propensity to adverse reactions 04-23-20 [facility] (3 sources) Metoclopramide Drug Allergy 04-23-20 [facility] (3 sources) Penicillins Drug Allergy 05-26-20 [facility] (3 sources) Sulfonamides (Antibiotic) Drug Allergy 05-26-20 [facility] (3 sources) Sulfacetamide; Translations: [sulfacetamide] Drug Allergy 10-16-19 [facility] (5 sources) Sulfur; Translations: [sulfur] Drug Allergy 10-16-19 [facility] (1 source) Aspirin Drug Allergy 07-22-19 [facility] (1 source) Haloperidol Drug Allergy 07-22-19 [facility] (1 source) hydrOXYzine Drug Allergy 07-22-19 [facility] (1 source) Magnesium Sulfate Drug Allergy 07-22-19 [facility] (1 source) metroNIDAZOLE Drug Allergy 07-22-19 [facility] (1 source) Naproxen Drug Allergy 07-22-19 [facility] Medications Current Medications Medication Drug Class(es) Dates Sig (Normalized) Sig (Original) acetaminophen 300 mg / codeine phosphate 30 mg oral tablet (1 source) Opioid Agonist Start: 05-24-2023 acetaminophen-cod eine (Tylenol w/ Codeine #3) 300-30 MG tablet acetaminophen 325 mg / oxyCODONE hydrochloride 5 mg oral tablet (9 sources) Opioid Agonist Start: 07-22-2022 take 1 tablet by mouth every six hours Oxycodone-Acetami nophen (Percocet) 5-325 mg tablet Active 1 - 2 TAB PO Every 6 hours 15 July 22, 2022 Start: 05-30-2021 Percocet 325 m g-5 mg Tab See Instructions, as needed for pain, 50 tab(s), Refill(s) 0, 1-2 tab(s) Oral q4hr, [facility] 858, 156, cm, 05/21/21 5:13:00 EST, Height/Length Dosing, 57.1, kg, 05/21/21 5:13:00 EST, Weight Dosing Start Date: 05/30/21 Status: Ordered [id number] 200 actuat albuterol 0.09 mg/actuat metered dose inhaler (16 sources) beta2-Adrenergic Agonist Start: 01-22-2024 albut darline HFA 90 mcg/act inhaler 01/22/2024 Active Start: 07-22-2022 albuterol (2.5 MG/3ML) 0.083% nebulizer solution 04/23/2023 Active Start: 05-20-2021 take 2.5 mg by inhal [...] MG capsule ciclopirox 80 mg/ml topical solution (3 sources) Start: 03-16-2023 ciclopirox (Penlac) 8 % solution 03/16/2023 Active docusate sodium 100 mg oral capsule (1 source) Start: 05-30-2021 take 1 capsule by mouth twice daily as needed for constipation Colace 100 mg Cap 100 mg = 1 cap(s), Oral, BID, PRN for constipation, # 20 cap(s), Refills(s) 0, Pharmacy: [facility] 858, 156, cm, 05/21/21 5:13:00 EST, Height/Length Dosing, 57.1, kg, 05/21/21 5:13:00 EST, Weight Dosing Start Date: 05/30/21 Status: Ordered famotidine 20 mg oral tablet (3 sources) Histamine-2 Receptor Antagonist Start: 10-04-2022 take 1 tablet by mouth in the morning famotidine (Pepcid) 20 MG tablet Take 20 mg by mouth in the morning. 10/04/2022 Active FLUoxetine 40 mg oral capsule (6 sources) Serotonin Reuptake Inhibitor Start: 05-20-2021 FLUoxetine (PROzac) 40 MG capsule 05/18/2023 Active 120 actuat fluticasone propionate 0.045 mg/actuat / salmeterol 0.021 mg/actuat metered dose inhaler (3 sources) Corticosteroid, beta2-Adrenergic Agonist fluticasone-salm eterol (Advair HFA) 45-21 MCG/ACT inhaler Advair HFA Active fluticasone-salme terol 250 mcg-50 mcg Inh Pwdr (1 source) Start: 05-20-2021 take 1 dose by inhalation every twelve hours fluticasone-salm eterol 250 mcg-50 mcg Inh Pwdr 1 vial, Inhalation, q12hr, Refill(s) 0, COPD Start Date: 05/20/21 Status: Ordered folic acid 1 mg oral tablet (3 sources) Start: 04-12-2023 folic acid (Folvite) 1 MG tablet 04/12/2023 Active LORazepam 0.5 mg oral tablet (2 sources) Benzodiazepine Start: 01-04-2024 LORazepam (Ativan) 0.5 MG tablet 1 (one) time each day at the same time 01/04/2024 Active montelukast 10 mg oral tablet (2 sources) Leukotriene Receptor Antagonist Start: 09-28-2023 montelukast (Singulair) 10 MG tablet 1 (one) time each day at the same time 09/28/2023 Active OLANZapine 15 mg oral tablet (14 sources) Atypical Antipsychotic Start: 01-22-2024 take 1 tablet by mouth once daily at bedtime olanzapine 15 mg oral tablet 15 mg = 1 tab(s), Oral, Once a day (at bedtime), Refills(s) 0, Depression Start Date: 05/04/24 Status: Ordered Start: 05-20-2021 take 10 mg by mouth once daily Olanzapine Active 10 MG PO Daily July 22, 2022 1:00am omeprazole 20 mg delayed release oral capsule (10 sources) Proton Pump Inhibitor Start: 07-22-2022 take 20 mg by mouth once daily Omeprazole Active 20 MG PO Daily July 22, 2022 1:00am omeprazole (PriL OSEC) [address] capsule 1 (one) time each day at the same time Active ondansetron 4 mg disintegrating oral tablet (8 sources) Serotonin-3 Receptor Antagonist Start: 07-22-2022 take 4 mg by mouth every eight hours Ondansetron Active 4 MG PO Q8H July 22, 2022 1:00am oxyCODONE hydrochloride 5 mg oral capsule (1 source) Opioid Agonist Start: 06-08-2021 oxyCODONE 5 mg Cap 5 mg = 1 cap(s), Oral, q6hr, PRN Pain 8-10, # 4 cap(s), Refills(s) 0, Pharmacy: [facility] 858, 155, cm, 06/08/21 8:15:00 EST, Height/Length Dosing, 60, kg, 06/08/21 8:15:00 EST, Weight Dosing Start Date: 06/08/21 Status: Ordered potassium chloride 10 meq extended release oral capsule (2 sources) Start: 10-21-2023 potassium chloride ER (Micro-K) 10 MEQ ER capsule 10/21/2023 Active rOPINIRole 1 mg oral tablet (14 sources) Nonergot Dopamine Agonist Start: 01-21-2024 take 1 tablet by mouth once daily ropinirole 1 mg Tab 1 mg = 1 tab(s), Oral, Daily, Refills(s) 0, Other (see comment) Start Date: 05/04/24 Status: Ordered Start: 07-22-2022 take 0.5 mg by mouth once jasbir y Ropinirole Active 0.5 MG PO Daily July 22, 2022 1:00am Start: 05-20-2021 take 1 tablet by marielena th once daily ropinirole 0.25 mg Tab 0.25 mg = 1 tab(s), Oral, Daily, Refills(s) 0, Other (see comment) Start Date: 05/20/21 Status: Ordered tiZANidine 2 mg oral capsule (12 sources) Central alpha-2 Adrenergic Agonist Start: 05-04-2024 take 1 capsule by mouth twice daily tizanidine 2 mg oral capsule 2 mg = 1 cap(s), Oral, BID, # 180 cap(s), Refills(s) 0, Pain Start Date: 05/04/24 Status: Ordered Start: 07-22-2022 tiZANidine (Za naflex) 2 MG tablet 2022 Active traMADol hydrochloride 50 mg oral tablet (3 sources) Opioid Agonist Start: 03-23-2024 traMADol (Ultr am) 50 MG tablet 03/23/2024 Active Start: 04-23-2023 traMADol (Ultr am) 50 MG tablet Vitamin B-12 1000 mcg oral tablet (1 source) Start: 10-27-2022 Vitamin B-12 1 000 mcg oral tablet Refills(s) 0 Start Date: 10/27/22 Status: Ordered vitamin b12 1 mg oral tablet (3 sources) Vitamin B12 Start: 02-03-2023 cyanocobalamin (Vitamin B-12) 1000 MCG tablet 02/03/2023 Active Completed/Discontinued Medications Medication Drug Class(es) Dates Sig (Normalized) Sig (Original) ciprofloxacin 500 mg oral tablet (10 sources) Quinolone Antimicrobial Start: 10-27-2022 take 1 tablet by mouth once daily Cipro 500 mg Tab 500 mg = 1 tab(s), Oral, Daily, Take 1 tablet the day before the procedure and 1 tablet after the procedure, # 2 tab(s), Refills(s) 0, Pharmacy: [facility] [id number], 156, cm, 10/27/22 14:36:00 EDT, Height/Length Dosing, 62, kg, 10/27/22 14:36:00... Start Date: 11/27/22 Status: Ordered Start: 07-22-2022 take 250 mg by mouth once daily Ciprofloxacin Hcl Active 250 MG PO Daily July 22, 2022 1:00am Problems Active Problems Problem Classification Problem Date Documented Date Episodic/Chronic Abdominal pain (13 sources) Epigastric pain; Translations: [Epigastric pain] Onset: 11-26-2021 07-22-2022 Episodic Allergic reactions (4 sources) Allergy, unspecified, initial encounter; Translations: [ALLERGY UNSPECIFIED INITIAL ENCNTR] Onset: 10-04-2022 Episodic Anxiety disorders (15 sources) Anxiety; Translations: [Anxiety disorder, unspecified] Onset: 10-05-2022 12-28-2013 Chronic Asthma (1 source) Unspecified asthma, uncomplicated; Translations: [UNSPECIFIED ASTHMA UNCOMPLICATED] Onset: 11-24-2021 Chronic Calculus of urinary tract (3 sources) History of calculus of kidney; Translations: [Personal history of urinary calculi] Onset: 09-28-2023 10-27-2022 Episodic Chronic obstructive pulmonary disease and bronchiectasis (2 sources) Chronic obstructive lung disease 09-30-2022 Chronic Gastritis and duodenitis (1 source) Gastritis, unspecified, without bleeding; Translations: [GASTRITIS UNS WITHOUT BLEEDING] Onset: 07-23-2022 Episodic Headache; including migraine (7 sources) Migraine without aura, not refractory ; Translations: [Migraine, unspecified, not intractable, without status migrainosus] Onset: 11-06-2021 06-22-2015 Chronic Headache; including migraine (3 sources) Headache 05-20-2021 Episodic Mood disorders (7 sources) Depression; Translations: [Bipolar disorder, unspecified] Onset: 10-05-2022 09-22-2013 Chronic Nausea and vomiting (5 sources) Nausea; Translations: [Nausea with vomiting, unspecified] Onset: 06-24-2022 Episodic Nonspecific chest pain (11 sources) Atypical chest pain; Translations: [Other chest pain] 05-29-2019 Episodic Other aftercare (1 source) Other fci (current) drug therapy; 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] Onset: 07-23-2022 Episodic Other connective tissue disease (3 sources) Impingement syndrome of shoulder region 05-20-2021 Episodic Other hereditary and degenerative nervous system conditions (1 source) Restless legs syndrome; Translations: [Restless legs syndrome] Onset: 03-19-2023 Chronic Other non-traumatic joint disorders (1 source) Pain of right shoulder joint; Translations: [Pain in right shoulder] Onset: 11-24-2021 Episodic Other non-traumatic joint disorders (11 sources) Chronic pain of right upper limb; Translations: [Pain in right shoulder] 12-16-2020 Episodic Residual codes; unclassified (1 source) Acquired absence of both cervix and uterus; Translations: [ACQUIRED ABSENCE BOTH CERVIX AND UTERUS] Onset: 10-05-2022 Episodic Sprains and strains (2 sources) Strain of muscle(s) and tendon(s) of the rotator cuff of right shoulder, subsequent encounter; Translations: [Other specified aftercare] 05-03-2024 Episodic Substance-related disorders (4 sources) Smoker; Translations: [Nicotine dependence, cigarettes, uncomplicated] Onset: 06-26-2022 04-23-2014 Chronic Comment on above: Added secondary to d ocumentation in Social History. Unclassified (1 source) CONTACT W/AND (SUSP) EXPOS COVID-19; Translations: [CONTACT W/AND (SUSP) EXPOS COVID-19] Onset: 06-26-2022 Urinary tract infections (4 sources) Acute cystitis; Translations: [Recurrent urinary tract [...] PROLNG STAT/AWK PST INIT] Onset: 11-24-2021 Episodic Genitourinary symptoms and ill-defined conditions (3 sources) Dysuria; Translations: [Hematuria, unspecified] Onset: 06-29-2023 Episodic Joint disorders and dislocations; trauma-related (1 source) Unspecified dislocation of right acromioclavicular joint, initial encounter; Translations: [UNS DISLOCATION RT AC JNT INITIAL] Onset: 11-24-2021 Episodic Nutritional deficiencies (1 source) Deficiency of other specified B group vitamins; Translations: [Deficiency of other specified B group vitamins] Onset: 03-19-2023 Episodic Other diseases of kidney and ureters [...] Test Name Value Interpretation Reference Range Facility XR Chest 2 Viewson 4 XR Chest 2 Views Exam Date/Time: 05/04/2024 14:46 EDT Reason for Exam: P.A.T. Report IMPRESSION: NO RADIOGRAPHIC EVIDENCE OF ACTIVE DISEASE IN THE CHEST. CLINICAL INFORMATION: P.A.T. COMPARISON: 05/20/2021 FINDINGS: Two views of the chest were obtained. Heart and mediastinum appear normal. The lungs appear clear. Visualized bony thorax and remainder of the chest appears unremarkable. Ordering Provider: Edgar Ahmad FINAL REPORT Dictated: 05/05/2024 11:25 am Hernandez Mclean MD Signed (Electronic Signature): 05/05/2024 11:25 am Signed by: Hernandez Mclean MD Transcribed by: FLACO Technologist: IGOR Technical Comments Radiation Dose: Ka,r in mGy = na DAP = na Normal [facility] BMPon 05-04-2024 Anion gap [Moles/Vol] 9 mmol/L Normal 6-16 [facility] Comment on above: Performed By: #### 2 [id number] #### [facility] [address] [place] [address] Calcium [Mass/Vol] 9.3 mg/dL Normal 8.9-11.1 [facility] Comment on above: Performed By: #### 2 [id number] #### [facility] [address] [place] [address] Chloride [Moles/Vol] 103 mmol/L Normal 101-111 [facility] Comment on above: Performed By: #### 2 [id number] #### [facility] [address] [place] [address] CO2 [Moles/Vol] 28 mmol/L Normal 21-31 [facility] Comment on above: Performed By: #### 2 [id number] #### [facility] [address] [place] [address] Creatinine [Mass/Vol] 0.6 mg/dL Normal 0.5-1.3 [facility] Comment on above: Performed By: #### 2 [id number] #### [facility] [address] [place] [address] Glucose [Mass/Vol] 97 mg/dL Normal 55-199 [facility] Comment on above: Performed By: #### 2 [id number] #### [facility] [address] [place] [address] Potassium [Moles/Vol] 3.6 mmol/L Normal 3.5-5.3 [facility] Comment on above: Performed By: #### 2 [id number] #### [facility] [address] [place] [address] Sodium [Moles/Vol] 136 mmol/L Normal 135-145 [facility] Comment on above: Performed By: #### 2 [id number] #### [facility] [address] [place] [address] Urea nitrogen [Mass/Vol] 9 mg/dL Normal 5-21 [facility] Comment on above: Performed By: #### 2 [id number] #### [facility] [address] [place] [address] Urea nitrogen/Creatinine [Mass ratio] 15 No Units Normal 10-20 [facility] Comment on above: Performed By: #### 2 [id number] #### [facility] [address] [place] [address] CBC w/ Auto Diffon 05-04- 4 Basophils/100 WBC (Bld) 0.7 % Normal 0.0-2.0 [facility] Comment on above: Performed By: #### 2 [id number] #### [facility] [address] [place] [address] Basophils/Leukocytes Auto (Bld) [Pure # fraction] 0.1 E9/L Normal 0.0-0.2 [facility] Comment on above: Performed By: #### 2 [id number] #### [facility] [address] [place] [address] Eosinophils (Bld) [#/Vol] 0.1 E9/L Normal 0.0-0.5 [facility] Comment on above: Performed By: #### 2 [id number] #### [facility] [address] [place] [address] Eosinophils/100 WBC (Bld) 1.1 % Normal 0.0-8.0 [facility] Comment on above: Performed By: #### 2 [id number] #### [facility] [address] [place] [address] Erythrocyte distribution width (RBC) [Ratio] 13.4 % Normal 10.9-14.2 [facility] Comment on above: Performed By: #### 2 [id number] #### [facility] [address] [place] [address] Hematocrit (Bld) [Volume fraction] 41.2 % Normal 34.0-46.0 [facility] Comment on above: Performed By: #### 2 [id number] #### [facility] [address] [place] [address] Hemoglobin (Bld) [Mass/Vol] 14.2 g/dL Normal 12.0-16.0 [facility] Comment on above: Performed By: #### 2 [id number] #### [facility] [address] [place] [address] Lymphocytes (Bld) [#/Vol] 2.9 E9/L Normal 1.0-4.0 [facility] Comment on above: Performed By: #### 2 [id number] #### [facility] [address] [place] [address] Lymphocytes/100 WBC (Bld) 36.1 % Normal 14.0-50.0 [facility] Comment on above: Performed By: #### 2 [id number] #### [facility] [address] [place] [address] MCH (RBC) [Entitic mass] 31.7 pg Normal 27.0-34.0 [facility] Comment on above: Performed By: #### 2 [id number] #### [facility] [address] [place] [address] MCHC (RBC) [Mass/Vol] 34.4 g/dL Normal 31.4-36.0 [facility] Comment on above: Performed By: #### 2 [id number] #### [facility] [address] [place] [address] MCV (RBC) [Entitic vol] 92.2 fL Normal 80.0-100.0 [facility] Comment on above: Performed By: #### 2 [id number] #### [facility] [address] [place] [address] Monocytes (Bld) [#/Vol] 0.6 E9/L Normal 0.2-1.0 [facility] Comment on above: Performed By: #### 2 [id number] #### [facility] [address] [place] [address] Neutrophils (Bld) [#/Vol] 4.4 E9/L Normal 2.0-7.5 [facility] Comment on above: Performed By: #### 2 [id number] #### [facility] [address] [place] [address] Neutrophils/100 WBC (Bld) 55.2 % Normal 36.0-75.0 [facility] Comment on above: Performed By: #### 2 [id number] #### [facility] [address] [place] [address] Platelet mean volume (Bld) [Entitic vol] 9.3 fL Normal 6.4-10.8 [facility] Comment on above: Performed By: #### 2 [id number] #### [facility] Laboratory [address] [place] [id number] Platelets (Bld) [#/Vol] 207.0 E9/L Normal 150.0-500.0 [facility] Comment on above: Performed By: #### 2 [id number] #### [facility] Laboratory [address] [place] [address] [id number] RBC (Bld) [#/Vol] 4.5 E12/L Normal 4.3-5.9 [facility] Comment on above: Performed By: #### 2 [id number] #### [facility] Laboratory [address] [place] [address] 60235 WBC corrected for nucl RBC Auto (Bld) [#/Vol] 8.0 E9/L Normal 4.0-11.0 [facility] Comment on above: Performed By: #### 2 [id number] #### [facility] Laboratory [address] [place] [address] 51111 CHEMISTRYOrdered By: SYSTEM SYSTEM on 05-04-2024 Anion gap [Moles/Vol] 9 mmol/L Normal 6 - 16 mEq/L R emisol Chem Calcium [Mass/Vol] 9.3 mg/dL Normal 8.9 - 11. 1 mg/dL Remisol Chem Chloride [Moles/Vol] 103 mmol/L Normal 101 - 1 11 mmol/L Remisol Chem CO2 [Moles/Vol] 28 mmol/L Normal 21 - 31 mmol/L Remisol Chem Creatinine [Mass/Vol] 0.6 mg/dL Normal 0.5 - 1.3 mg/dL Remisol Chem eGFR 112 mL/min/1.73 m2 Normal >=59mL/mi n/1 .73 m2 Remisol Chem Glucose [Mass/Vol] 97 mg/dL Normal 55 - 199 mg/dL Remisol Chem Potassium [Moles/Vol] 3.6 mmol/L Normal 3.5 - 5.3 mmol/L Remisol Chem Sodium [Moles/Vol] 136 mmol/L Normal 135 - 145 mmol/L Remisol Chem Urea nitrogen [Mass/Vol] 9 mg/dL Normal 5 - 21 mg/dL Remisol Chem Urea nitrogen/Creatinine [Mass ratio] 15 mg/mg Normal 10 - 20 Remisol Chem HEMATOLOGYOrdered By: SYSTEM SYSTEM on 05-04-2024 Basophils/100 WBC (Bld) 0.7 % Normal 0.0 - 2.0 % Remisol Heme Basophils/Leukocytes Auto (Bld) [Pure # fraction] 0.1 E9/L Normal 0.0 - 0.2 E9/L Remisol Heme Eosinophils (Bld) [#/Vol] 0.1 E9/L Normal 0.0 - 0.5 E9/L Remisol Heme Eosinophils/100 WBC (Bld) 1.1 % Normal 0.0 - 8.0 % Remisol Heme Erythrocyte distribution width (RBC) [Ratio] 13.4 % Normal 10.9 - 14.2 % Remisol Heme Hematocrit (Bld) [Volume fraction] 41.2 % Normal 34.0 - 46.0 % Remisol Heme Hemoglobin (Bld) [Mass/Vol] 14.2 g/dL Normal 12.0 - 16.0 gm/dL Remisol Heme Lymphocytes (Bld) [#/Vol] 2.9 E9/L Normal 1.0 - 4.0 E9/L Remisol Heme Lymphocytes/100 WBC (Bld) 36.1 % Normal 14.0 - 50.0 % Remisol Heme MCH (RBC) [Entitic mass] 31.7 pg Normal 27.0 - 34.0 pg Remisol Heme MCHC (RBC) [Mass/Vol] 34.4 g/dL Normal 31.4 - 36.0 gm/dL Remisol Heme MCV (RBC) [Entitic vol] 92.2 fL Normal 80.0 - 100.0 fL Remisol Heme Monocytes (Bld) [#/Vol] 0.6 E9/L Normal 0.2 - 1.0 E9/L Remisol Heme Monocytes/100 WBC (Bld) 6.9 % Normal 4.0 - 14.0 % Remisol Heme Neutrophils (Bld) [#/Vol] 4.4 E9/L Normal 2.0 - 7.5 E9/L Remisol Heme Neutrophils/100 WBC (Bld) 55.2 % Normal 36.0 - 75.0 % Remisol Heme Platelet mean volume (Bld) [Entitic vol] 9.3 fL Normal 6.4 - 10.8 fL Remisol Heme Platelets (Bld) [#/Vol] 207.0 E9/L Normal 150. 0 - 500.0 E9/L Remisol Heme RBC (Bld) [#/Vol] 4.5 E12/L Normal 4.3 - 5.9 E12/L Remisol Heme WBC corrected for nucl RBC Auto (Bld) [#/Vol] 8.0 E9/L Normal 4.0 - 11.0 E9/L Remisol Heme eGFRon 05-04-2024 eGFR 112 mL/min/1.73 m2 Normal >=59 [facility] Comment on above: Performed By: #### 1 [id number] #### [facility] Laboratory [address] [place] [address] MR SHOULDER RIGHT WO IV CONT Pavan 04-03-2024 MR SHOULDER RIGHT WO IV CONTRAST EXAMINATION: MR SHOULDER RIGHT WO IV CONTRAST HISTORY: Right shoulder pain. Concern for rotator cuff tear. History of prior biceps tendon surgery. TECHNIQUE: Routine non-contrast MRI of the shoulder right COMPARISON: 01/25/2024. RESULT: Rotator Cuff Tendons: Area of high-grade partial-thickness articular sided tearing involving distal supraspinatus near insertion (sagittal T2 sequence image 15, coronal PD sequence image 8) measuring approximately 1.1 cm AP by 0.8 cm transverse, without distinct full-thickness tear, with underlying tendinosis. Mild tendinosis involving infraspinatus and subscapularis, without tear. Teres minor appears intact. Long Head Biceps Tendon: Changes from prior biceps tenodesis. Muscle: Muscle bulk and signal intensity are within normal limits. Labrum: Appears intact. Bones and Marrow: No evidence of fracture or bone marrow replacing process. Glenohumeral Joint: No measurable full-thickness chondral defect. No joint effusion. Acromioclavicular Joint: Possible prior postsurgical changes. Mild to moderate degenerative changes. Small amount of focal fluid or small ganglion cyst superior to the joint measuring around 7 mm. Other: Mild subacromial-subdeltoi d bursal thickening/fluid. IMPRESSION: Rotator cuff tendinosis with area of high-grade partial-thickness articular sided tearing involving distal supraspinatus. ELECTRONICALLY SIGNED BY: Deniz Martinez MD Normal Not Available IGP,Aptima HPV,CtNg Age Gdln on 02-02-2024 IGP, Age Gdln Note Normal . [facility] Comment on above: Result Comment: TEST S RESULT FLAG UNITS REF RANGE LAB Clinician Provided Cytology Information No. of containers..01 ThinPrep Vial Age Algo ACOG Judi... 30-65 01 FLAG LEGEND: L-Low Normal,H-High Normal,LL-Alert Low,HH-Alert High <-Panic Low,>-Panic High,A-Abnormal,AA-Critical Abnormal Performed at: 01 =G [facility] [address] [id number] Adriane Sherman MD, Performed By: #### C UU #### [address] PAP HPV HR Negative Normal Negative [facility] Comment on above: Result Comment: This nucleic acid amplification test detects fourteen high- risk HPV types (16,18,31,33,35,39,45,51,52,56,58,59,66,68) without differentiation. Performed at: =G - [facility] [id number] Linux Unix Administrator: Adriane Sherman MD, Phone: [phone] Performed at: - [facility] [id number] Linux Unix Administrator: Adriane Sherman MD, Phone: [phone] PERFORMED BY: [place] [address] PATHOLOGIST FIELD AIDE MARINE WARD M.D. Performed By: #### C UU #### [address] Pap Image Guided Note Normal . [facility] Comment on above: Result Comment: TEST S RESULT FLAG UNITS REF RANGE LAB DIAGNOSIS: 02 NEGATIVE FOR INTRAEPITHELIAL LESION OR MALIGNANCY. CELLULAR CHANGES ASSOCIATED WITH INFLAMMATION ARE PRESENT. Specimen adequacy: 02 Satisfactory for evaluation. No endocervical component is identified. Performed by: 02 Katy Champagne Second Language Tutor (ASCP) . 02 Note: Note 02 The Pap smear is a screening test designed to aid in the detection of premalignant and malignant conditions of the uterine cervix. It is not a diagnostic procedure and should not be used as the sole means of detecting cervical cancer. Both false-positive and false-negative reports do occur. Test Methodology: Note 02 This liquid based ThinPrep(R) pap test was screened with the use of an image guided system. HPV Genotype Reflex Note 02 Criteria not met, HPV Genotype not performed. FLAG LEGEND: L-Low Normal,H-High Normal,LL-Alert Low,HH-Alert High <-Panic Low,>-Panic High,A-Abnormal,AA-Critical Abnormal Performed at: [address] [facility] [id number] Adriane Sherman MD, Performed By: #### C UU #### [facility] [address] Vaginitis Plus (VG+)on 02-01 Atopobium Vaginae High - 2 Critically abnormal . [facility] Comment on above: Order Comment: SOURC E OF SPECIMEN: APTIMA Result Comment: This test was developed and its performance characteristics determined by [facility]. It has not been cleared or approved by the Food and Drug Administration. Performed By: #### P AP [id number], VAGINITIS+ #### [facility] , BVAB2 High - 2 Critically abnormal . [facility] Comment on above: Order Comment: SOURC E OF SPECIMEN: APTIMA Result Comment: This test was developed and its performance characteristics determined by [facility]. It has not been cleared or approved by the Food and Drug Administration. Performed By: #### P AP [id number], VAGINITIS+ #### [facility] , Yuki Albicans, MICHAEL Negative Normal Negative [facility] Comment on above: Order Comment: SOURC E OF SPECIMEN: APTIMA Result Comment: This test was developed and its performance characteristics determined by [facility]. It has not been cleared or approved by the Food and Drug Administration. Performed By: #### P AP [id number], VAGINITIS+ #### [facility] , Yuki Glabrata, MICHAEL Negative Normal Negative [facility] Comment on above: Order Comment: SOURC E OF SPECIMEN: APTIMA Result Comment: This test was developed and its performance characteristics determined by [facility]. It has not been cleared or approved by the Food and Drug Administration. PERFORMED BY: [facility] [address] [place] [address] PATHOLOGIST FIELD AIDE MARINE WARD M.D. Performed By: #### P AP [id number], VAGINITIS+ #### [facility] , Chlamydia Trachomotis, MICHAEL Negative Normal Negative [facility] Comment on above: Order Comment: SOURC E OF SPECIMEN: APTIMA Performed By: #### P AP [id number], VAGINITIS+ #### [facility] , Megasphaera High - 2 Critically abnormal . [facility] Comment on above: Order Comment: SOURC E OF SPECIMEN: APTIMA Result Comment: This test was developed and its performance characteristics determined by [facility]. It has not been cleared or approved by the Food and Drug Administration. Calculate total score by adding the 3 individual bacterial vaginosis (BV) marker scores together. Total score is interpreted as follows: Total score 0-1: Indicates the absence of BV. Total score 2: Indeterminate for BV. Additional clinical data should be evaluated to establish a diagnosis. Total score 3-6: Indicates the presence of BV. Performed By: #### P AP [id number], VAGINITIS+ #### [facility] , Neisseria Gonorrhoeae, MICHAEL Negative Normal Negative [facility] Comment on above: Order Comment: SOURC E OF SPECIMEN: APTIMA Result Comment: Perf ormed at: =G - [facility] [address] [id number] Linux Unix Administrator: Adriane Sherman MD, Phone: [phone] Performed By: #### P AP [id number], VAGINITIS+ #### [facility] , Tric Vag MICHAEL Negative Normal Negative [facility] Comment on above: Order Comment: SOURC E OF SPECIMEN: APTIMA Performed By: #### P AP , VAGINITIS+ #### [facility] , Alanine aminotransferase [En zymatic activity/volume] in Serum or PlasmaOrdered By: Rufina Ruiz on 09-28-2023 ALT [Catalytic activity/Vol] 7 U/L Normal 7-52 [facility] Comment on above: Order Comment: Reaso n for Exam Dysuria;History of kidney stones Reason for Exam Hematuria, unspecified Reason for Exam Vitamin B12 deficiency Reason for Exam Bipolar disorder Performed By: #### C UU #### [facility] [address] Albumin [Mass/volume] in Ser um or Plasma by Bromocresol green (BCG) dye binding methoOrdered By: Rufina Ruiz on 09-28-2023 Albumin BCG dye [Mass/Vol] 4.9 g/dL 3.5-5.7 [facility] Alkaline phosphatase [Enzyma tic activity/volume] in Serum or PlasmaOrdered By: Rufina Ruiz on 09-28-2023 ALP [Catalytic activity/Vol] 100 U/L Normal 34-104 [facility] Comment on above: Order Comment: Reaso n for Exam Dysuria;History of kidney stones Reason for Exam Hematuria, unspecified Reason for Exam Vitamin B12 deficiency Reason for Exam Bipolar disorder Performed By: #### C UU #### [facility] [address] [place] [id number] [place] Aspartate aminotransferase [ Enzymatic activity/volume] in Serum or PlasmaOrdered By: Rufina Ruiz on 09-28-2023 AST [Catalytic activity/Vol] 11 U/L Low 13-39 [facility] Comment on above: Order Comment: Reaso n for Exam Dysuria;History of kidney stones Reason for Exam Hematuria, unspecified Reason for Exam Vitamin B12 deficiency Reason for Exam Bipolar disorder Performed By: #### C UU #### [facility] [address] [place] [id number] [place] Bilirubin.total [Mass/volume ] in Serum or PlasmaOrdered By: Rufina Ruiz on 09-28-2023 Bilirubin [Mass/Vol] 0.3 mg/dL Normal 0.3-1.0 [facility] Comment on above: Order Comment: Reaso n for Exam Dysuria;History of kidney stones Reason for Exam Hematuria, unspecified Reason for Exam Vitamin B12 deficiency Reason for Exam Bipolar disorder Performed By: #### C UU #### [facility] [address] [place] [id number] [place] Calcium [Mass/volume] in Ser um or PlasmaOrdered By: Rufina Ruiz on 09-28-2023 Calcium [Mass/Vol] 9.7 mg/dL Normal 8.6-10.3 [facility] Comment on above: Order Comment: Reaso n for Exam Dysuria;History of kidney stones Reason for Exam Hematuria, unspecified Reason for Exam Vitamin B12 deficiency Reason for Exam Bipolar disorder Performed By: #### C UU #### [facility] [address] [place] [id number] [facility] Carbon dioxide, total [Moles /volume] in Serum or PlasmaOrdered By: Rufina Ruiz on 09-28-2023 CO2 [Moles/Vol] 29.3 mmol/L Normal 21.0-31.0 [facility] Comment on above: Order Comment: Reaso n for Exam Dysuria;History of kidney stones Reason for Exam Hematuria, unspecified Reason for Exam Vitamin B12 deficiency Reason for Exam Bipolar disorder Performed By: #### C UU #### [facility] [address] [place] [id number] [place] Chloride [Moles/volume] in S siddhartha or PlasmaOrdered By: Rufina Ruiz on 09-28-2023 Chloride [Moles/Vol] 107 mmol/L Normal 98-107 [facility] Comment on above: Order Comment: Reaso n for Exam Dysuria;History of kidney stones Reason for Exam Hematuria, unspecified Reason for Exam Vitamin B12 deficiency Reason for Exam Bipolar disorder Performed By: #### C UU #### [facility] [address] [place] [address] [place] Comprehensive Metabolic Pane louise 09-28-2023 Albumin [Mass/Vol] 4.9 g/dL Normal 3.5-5.7 [facility] Comment on above: Order Comment: Reaso n for Exam Dysuria;History of kidney stones Reason for Exam Hematuria, unspecified Reason for Exam Vitamin B12 deficiency Reason for Exam Bipolar disorder Performed By: #### C UU #### [facility] [address] [place] [address] GFR/1.73 sq M.predicted MDRD (S/P/Bld) [Vol rate/Area] mL/min/{1.73_m2} Normal [facility] Comment on above: Order Comment: Reaso n for Exam Dysuria;History of kidney stones Reason for Exam Hematuria, unspecified Reason for Exam Vitamin B12 deficiency Reason for Exam Bipolar disorder Performed By: #### C UU #### [facility] [address] [place] [address] Creatinine [Mass/volume] in Serum or PlasmaOrdered By: Rufina Ruiz on 09-28-2023 Creatinine [Mass/Vol] 0.60 mg/dL Normal 0.60-1.20 [facility] Comment on above: Order Comment: Reaso n for Exam Dysuria;History of kidney stones Reason for Exam Hematuria, unspecified Reason for Exam Vitamin B12 deficiency Reason for Exam Bipolar disorder Performed By: #### C UU #### [facility] [address] [place] [address] Ferritin [Mass/volume] in Se rum or PlasmaOrdered By: Rufina Ruiz on 09-28-2023 Ferritin [Mass/Vol] 72.4 ng/mL Normal 11.0-306.8 [facility] Comment on above: Order Comment: Reaso n for Exam Dysuria;History of kidney stones Reason for Exam Hematuria, unspecified Reason for Exam Vitamin B12 deficiency Reason for Exam Bipolar disorder Performed By: #### C UU #### [facility] [address] [place], [place] [id number] [place] Folate [Mass/volume] in Seru m or PlasmaOrdered By: Rufina Ruiz on 09-28-2023 Folate [Mass/Vol] 6.3 ng/mL >5.9 [facility] Comment on above: Folate reference ran ge: >5.9 ng/mlThe WHO technical consultation on folate and vitamin [id number] has determined that folate concentrations lessthan 4 ng/ml are considered deficient. Glucose [Mass/volume] in Ser um or PlasmaOrdered By: Rufinaquentin Ruiz on 09-28-2023 Glucose [Mass/Vol] 90 mg/dL Normal 70-100 [facility] Comment on above: ADA recommended refe rence rangeRandom Glucose Reference Range is dependent on time and content of last meal. Glucose of more than 200 mg/dL in a nonstressed, ambulatory subject supports the diagnosis of Diabetes Mellitus. Order Comment: Reaso n for Exam Dysuria;History of kidney stones Reason for Exam Hematuria, unspecified Reason for Exam Vitamin B12 deficiency Reason for Exam Bipolar disorder Result Comment: Cope om Glucose Reference Range is dependent on time and content of last meal. Glucose of more than 200 mg/dL in a nonstressed, ambulatory subject supports the diagnosis of Diabetes Mellitus. ADA recommended reference range Performed By: #### C UU #### [facility] [address] [place] [id number] [facility] Iron [Mass/volume] in Serum or PlasmaOrdered By: Rufina Ruiz on 09-28-2023 Iron [Mass/Vol] 92 ug/dL Normal 50-212 [facility] Comment on above: Order Comment: Reaso n for Exam Dysuria;History of kidney stones Reason for Exam Hematuria, unspecified Reason for Exam Vitamin B12 deficiency Reason for Exam Bipolar disorder Performed By: #### C UU #### [facility] [address] [place] [id number] [facility] Iron and TIBC Profileon 09-09 % Iron Saturation 28.5 % Normal 20-50 [facility] Comment on above: Order Comment: Reaso n for Exam Dysuria;History of kidney stones Reason for Exam Hematuria, unspecified Reason for Exam Vitamin B12 deficiency Reason for Exam Bipolar disorder Performed By: #### C UU #### [facility] [address] [place] [id number] [facility] Total Iron Binding Capacity 323 ug/dL Normal 255-450 [facility] Comment on above: Order Comment: Reaso n for Exam Dysuria;History of kidney stones Reason for Exam Hematuria, unspecified Reason for Exam Vitamin B12 deficiency Reason for Exam Bipolar disorder Performed By: #### C UU #### [facility] [address] [place] [id number] [facility] Iron binding capacity [Mass/ volume] in Serum or PlasmaOrdered By: Rufina Ruiz on 09-28-2023 Iron binding capacity [Mass/Vol] 323 ug/dL 255-450 [facility] Iron saturation [Mass Fracti on] in Serum or PlasmaOrdered By: Rufina Ruiz on 09-28-2023 Iron saturation [Mass fraction] 28.5 % 20-50 [facility] No Panel InformationOrdered By: Rufina Ruiz on 09-28-2023 Estimated GFR (CKD-EPI) > 60.0 mL/Min [facility] Creatinine Clearance (Chem N/A [facility] Potassium [Moles/volume] in Serum or PlasmaOrdered By: Rufina Ruiz on 09-28-2023 Potassium [Moles/Vol] 3.9 mmol/L Normal 3.5-5.1 [facility] Comment on above: Order Comment: Reaso n for Exam Dysuria;History of kidney stones Reason for Exam Hematuria, unspecified Reason for Exam Vitamin B12 deficiency Reason for Exam Bipolar disorder Performed By: #### C UU #### [facility] [address] [place] [id number] [facility] Protein [Mass/volume] in Ser um or PlasmaOrdered By: Rufina Ruiz on 09-28-2023 Protein [Mass/Vol] 7.1 g/dL Normal 6.4-8.9 [facility] Comment on above: Order Comment: Reaso n for Exam Dysuria;History of kidney stones Reason for Exam Hematuria, unspecified Reason for Exam Vitamin B12 deficiency Reason for Exam Bipolar disorder Performed By: #### C UU #### [facility] [address] [place] [id number] [facility] Serum globulin measurement b y calculation (mass/volume)Ordered By: Rufina Ruiz on 09-28-2023 Globulin (S) [Mass/Vol] 2.2 g/dL Normal [facility] Comment on above: Order Comment: Reaso n for Exam Dysuria;History of kidney stones Reason for Exam Hematuria, unspecified Reason for Exam Vitamin B12 deficiency Reason for Exam Bipolar disorder Performed By: #### C UU #### [facility] [address] Serum or plasma albumin/glob ulin mass ratioOrdered By: Rufina Ruiz on 09-28-2023 Albumin/Globulin [Mass ratio] 2.2 {ratio} Normal [facility] Comment on above: Order Comment: Reaso n for Exam Dysuria;History of kidney stones Reason for Exam Hematuria, unspecified Reason for Exam Vitamin B12 deficiency Reason for Exam Bipolar disorder Performed By: #### C UU #### [facility] [address] Serum or plasma anion gap de terminationOrdered By: Rufina Ruiz on 09-28-2023 Anion gap [Moles/Vol] 8.6 mmol/L Normal 6.0-15.0 [facility] Comment on above: Order Comment: Reaso n for Exam Dysuria;History of kidney stones Reason for Exam Hematuria, unspecified Reason for Exam Vitamin B12 deficiency Reason for Exam Bipolar disorder Performed By: #### C UU #### [facility] [address] [place] [address] Sodium [Moles/volume] in Ser um or PlasmaOrdered By: Rufina Ruiz on 09-28-2023 Sodium [Moles/Vol] 141 mmol/L Normal 136-145 [facility] Comment on above: Order Comment: Reaso n for Exam Dysuria;History of kidney stones Reason for Exam Hematuria, unspecified Reason for Exam Vitamin B12 deficiency Reason for Exam Bipolar disorder Performed By: #### C UU #### [facility] [address] [place] [address] Thyrotropin [Units/volume] i n Serum or PlasmaOrdered By: Rufina Ruiz on 09-28-2023 TSH Qn 2.58 m[IU]/L Normal 0.45-5.33 [facility] Comment on above: Order Comment: Reaso n for Exam Dysuria;History of kidney stones Reason for Exam Hematuria, unspecified Reason for Exam Vitamin B12 deficiency Reason for Exam Bipolar disorder Result Comment: PERF ORMED BY: [place] [address] PATHOLOGIST FIELD AIDE MARINE WARD M.D. Performed By: #### C UU #### [facility] [address] [place] [address] [facility] Thyroxine (T4) free [Mass/vo lume] in Serum or PlasmaOrdered By: Rufina Ruiz on 09-28-2023 Free T4 [Mass/Vol] 0.86 ng/dL Normal 0.61-1.12 [facility] Comment on above: Order Comment: Reaso n for Exam Dysuria;History of kidney stones Reason for Exam Hematuria, unspecified Reason for Exam Vitamin B12 deficiency Reason for Exam Bipolar disorder Performed By: #### C UU #### [facility] [address] [place] [id number] [place] Transferrin [Mass/volume] in Serum or PlasmaOrdered By: Rufina Ruiz on 09-28-2023 Transferrin [Mass/Vol] 231 mg/dL Normal 203-362 [facility] Comment on above: Order Comment: Reaso n for Exam Dysuria;History of kidney stones Reason for Exam Hematuria, unspecified Reason for Exam Vitamin B12 deficiency Reason for Exam Bipolar disorder Performed By: #### C UU #### [facility] [address] [place] [id number] [place] Urea nitrogen [Mass/volume] in Serum or PlasmaOrdered By: Rufina Ruiz on 09-28-2023 Urea nitrogen [Mass/Vol] 10 mg/dL Normal 7-25 [facility] Comment on above: Order Comment: Reaso n for Exam Dysuria;History of kidney stones Reason for Exam Hematuria, unspecified Reason for Exam Vitamin B12 deficiency Reason for Exam Bipolar disorder Performed By: #### C UU #### [facility] [address] [place] [address] [place] Urine Cultureon 09-28-2023 Bacteria identified Cx Nom (U) Reason for Exam Dysuria;History of kidney stones Urine Reason for Exam: Dysuria;History of kidney stones : Urine 20,000 colonies/ml mixed bacterial skin contaminants 2 Days PERFORMED BY: [address] [address] PATHOLOGIST FIELD AIDE MARINE WARD M.D. Normal [facility] Comment on above: Performed By: #### C UU #### [facility] [address] [place] [address] Vit. B12/Folate Profileon Folate 6.3 ng/mL Normal >5.9 [facility] Comment on above: Order Comment: Reaso n for Exam Dysuria;History of kidney stones Reason for Exam Hematuria, unspecified Reason for Exam Vitamin B12 deficiency Reason for Exam Bipolar disorder Result Comment: Senait te reference range: >5.9 ng/ml The WHO technical consultation on folate and vitamin b12 deficiencies has determined that folate concentrations less than 4 ng/ml are considered deficient. Performed By: #### C UU #### [facility] [address] [place] [address] Vitamin B12 ser/plasOrdered By: Rufina Ruiz on 09-28-2023 Cobalamin (Vitamin B12) [Mass/Vol] 6683 pg/mL High 180-914 [facility] Comment on above: Order Comment: Reaso n for Exam Dysuria;History of kidney stones Reason for Exam Hematuria, unspecified Reason for Exam Vitamin B12 deficiency Reason for Exam Bipolar disorder Performed By: #### C UU #### [facility] [address] [place] [address] Urine Cultureon 06-29-2023 Bacteria identified Cx Nom (U) 15,000 colonies/ml mixed bacterial skin contaminants 2 Days PERFORMED BY: [place] [address] PATHOLOGIST FIELD AIDE MARINE WARD M.D. Normal [facility] Comment on above: Performed By: #### C UU #### [facility] [address] [place] [address] Aerobic cultureOrdered By: Kingsley Jovel on 05-26-2023 Bacteria identified Aer cx Nom (Unsp spec) 2 Days [facility] Superficial Wound Cultureon 05-26-2023 Superficial Wound Culture Ingrowing nail Light Normal Skin Kacey 2 Days PERFORMED BY: [place] [address] PATHOLOGIST FIELD AIDE MARINE WARD M.D. Normal [facility] Comment on above: Performed By: #### C USUP #### [facility] [address] [place] [address] [place] Alanine aminotransferase [En zymatic activity/volume] in Serum or PlasmaOrdered By: Rufina Ruiz on 03-19-2023 ALT [Catalytic activity/Vol] 7 U/L Normal 7-52 [facility] Comment on above: Order Comment: Reaso n for Exam Bipolar disorder Reason for Exam Restless leg syndrome Reason for Exam Tobacco use;Bipolar disorder Reason for Exam Vitamin B 12 deficiency Performed By: #### F E and TIBC, ALOK, LIPID, [id number], CMP, CBC, THYROID SC #### [facility] [address] [place] [address] [place] Albumin [Mass/volume] in Ser um or Plasma by Bromocresol green (BCG) dye binding methoOrdered By: Rufina Ruiz on 03-19-2023 Albumin BCG dye [Mass/Vol] 4.3 g/dL 3.5-5.7 [facility] Alkaline phosphatase [Enzyma tic activity/volume] in Serum or PlasmaOrdered By: Rufina Ruiz on 03-19-2023 ALP [Catalytic activity/Vol] 100 U/L Normal 34-104 [facility] Comment on above: Order Comment: Reaso n for Exam Bipolar disorder Reason for Exam Restless leg syndrome Reason for Exam Tobacco use;Bipolar disorder Reason for Exam Vitamin B 12 deficiency Performed By: #### F E and TIBC, ALOK, LIPID, [id number], CMP, CBC, THYROID SC #### [facility] [address] [place] [id number] [place] Aspartate aminotransferase [ Enzymatic activity/volume] in Serum or PlasmaOrdered By: Rufina Ruiz on 03-19-2023 AST [Catalytic activity/Vol] 10 U/L Low 13-39 [facility] Comment on above: Order Comment: Reaso n for Exam Bipolar disorder Reason for Exam Restless leg syndrome Reason for Exam Tobacco use;Bipolar disorder Reason for Exam Vitamin B 12 deficiency Performed By: #### F E and TIBC, ALOK, LIPID, [id number], CMP, CBC, THYROID SC #### [address] Automated basophil %Ordered By: Rufina Ruiz on 03-19-2023 Basophils/100 WBC (Bld) 0.4 % Normal . [facility] Comment on above: Order Comment: Reaso n for Exam Bipolar disorder Performed By: #### F E and TIBC, ALOK, LIPID, [id number], CMP, CBC, THYROID SC #### [address] Automated basophil countOrde red By: Rufina Ramiro on 03-19-2023 Basophils (Bld) [#/Vol] 0.0 10*3/uL Normal 0.0-0.2 [facility] Comment on above: Order Comment: Reaso n for Exam Bipolar disorder Result Comment: PERF ORMED BY: [place] [address] PATHOLOGIST FIELD AIDE MARINE WARD M.D. Performed By: #### F E and TIBC, ALOK, LIPID, [id number], CMP, CBC, THYROID SC #### [address] Automated blood monocyte cou ntOrdered By: Rufina Ruiz on 03-19-2023 Monocytes (Bld) [#/Vol] 0.7 10*3/uL Normal 0.0-0.8 [facility] Comment on above: Order Comment: Reaso n for Exam Bipolar disorder Performed By: #### F E and TIBC, ALOK, LIPID, [id number], CMP, CBC, THYROID SC #### [address] Automated eosinophil %Ordere d By: Rufina Ramiro on 03-19-2023 Eosinophils/100 WBC (Bld) 1.5 % Normal . [facility] Comment on above: Order Comment: Reaso n for Exam Bipolar disorder Performed By: #### F E and TIBC, ALOK, LIPID, [id number], CMP, CBC, THYROID SC #### [address] Automated eosinophil countOr dered By: Rufina Ramiro on 03-19-2023 Eosinophils (Bld) [#/Vol] 0.1 10*3/uL Normal 0.0-0.45 [facility] Comment on above: Order Comment: Reaso n for Exam Bipolar disorder Performed By: #### F E and TIBC, ALOK, LIPID, [id number], CMP, CBC, THYROID SC #### [facility] [address] Automated monocyte %Ordered By: Rufina Ruiz on 03-19-2023 Monocytes/100 WBC (Bld) 7.1 % Normal . [facility] Comment on above: Order Comment: Reaso n for Exam Bipolar disorder Performed By: #### F E and TIBC, ALOK, LIPID, [id number], CMP, CBC, THYROID SC #### [facility] [address] Automated neutrophil %Ordere d By: Rufina Ruiz on 03-19-2023 Neutrophils/100 WBC (Bld) 65.4 % Normal . [facility] Comment on above: Order Comment: Reaso n for Exam Bipolar disorder Performed By: #### F E and TIBC, ALOK, LIPID, [id number], CMP, CBC, THYROID SC #### [facility] [address] [place] [id number] [facility] Bilirubin.total [Mass/volume ] in Serum or PlasmaOrdered By: Rufina Ruiz on 03-19-2023 Bilirubin [Mass/Vol] 0.3 mg/dL Normal 0.3-1.0 [facility] Comment on above: Order Comment: Reaso n for Exam Bipolar disorder Reason for Exam Restless leg syndrome Reason for Exam Tobacco use;Bipolar disorder Reason for Exam Vitamin B 12 deficiency Performed By: #### F E and TIBC, ALOK, LIPID, [id number], CMP, CBC, THYROID SC #### [facility] [address] [place] [id number] [facility] Calcium [Mass/volume] in Ser um or PlasmaOrdered By: Rufina Ruiz on 03-19-2023 Calcium [Mass/Vol] 9.6 mg/dL Normal 8.6-10.3 [facility] Comment on above: Order Comment: Reaso n for Exam Bipolar disorder Reason for Exam Restless leg syndrome Reason for Exam Tobacco use;Bipolar disorder Reason for Exam Vitamin B 12 deficiency Performed By: #### F E and TIBC, ALOK, LIPID, [id number], CMP, CBC, THYROID SC #### [facility] [address] Carbon dioxide, total [Moles /volume] in Serum or PlasmaOrdered By: Rufina Ruiz on 03-19-2023 CO2 [Moles/Vol] 29.4 mmol/L Normal 21.0-31.0 [facility] Comment on above: Order Comment: Reaso n for Exam Bipolar disorder Reason for Exam Restless leg syndrome Reason for Exam Tobacco use;Bipolar disorder Reason for Exam Vitamin B 12 deficiency Performed By: #### F E and TIBC, ALOK, LIPID, [id number], CMP, CBC, THYROID SC #### [facility] [address] [place] [address] [place] Chloride [Moles/volume] in S siddhartha or PlasmaOrdered By: Rufina Ruiz on 03-19-2023 Chloride [Moles/Vol] 108 mmol/L High 98-107 [facility] Comment on above: Order Comment: Reaso n for Exam Bipolar disorder Reason for Exam Restless leg syndrome Reason for Exam Tobacco use;Bipolar disorder Reason for Exam Vitamin B 12 deficiency Performed By: #### F E and TIBC, ALOK, LIPID, [id number], CMP, CBC, THYROID SC #### [facility] [address] Cholesterol [Mass/volume] in Serum or PlasmaOrdered By: Rufina Ruiz on 03-19-2023 Cholesterol [Mass/Vol] 164 mg/dL Normal 140-200 [facility] Comment on above: Chol less than 200 m g/dl low riskChol 201-239 mg/dl borderline riskChol 240 mg/dl and greater high risk Order Comment: Reaso n for Exam Bipolar disorder Reason for Exam Restless leg syndrome Reason for Exam Tobacco use;Bipolar disorder Reason for Exam Vitamin B 12 deficiency Result Comment: Chol less than 200 mg/dl low risk Chol 201-239 mg/dl borderline risk Chol 240 mg/dl and greater high risk Performed By: #### F E and TIBC, ALOK, LIPID, [id number], CMP, CBC, THYROID SC #### [facility] [address] Cholesterol in LDL Calc [Mas s/Vol]Ordered By: Rufina Ruiz on 03-19-2023 Cholesterol in LDL [Mass/Vol] 84 mg/dL 0-100 [facility] Comment on above: LDL ATP III CLASSIFI CATIONLDL less than 100 mg/dL OptimalLDL 100-129 mg/dL Near or above optimalLDL 130-159 mg/dL Borderline highLDL 160-189 mg/dL HighLDL greater than 189 mg/dL Very high Cholesterol in VLDL Calc [Ma ss/Vol]Ordered By: Rufina Ruiz on 03-19-2023 Cholesterol in VLDL [Mass/Vol] 19 mg/dL [facility] Complete Blood Count Auto Di ffon 03-19-2023 Mean Corpuscular HGB Conc 33.3 g/dL Normal 32.0-35.0 [facility] Comment on above: Order Comment: Reaso n for Exam Bipolar disorder Performed By: #### F E and TIBC, ALOK, LIPID, [id number], CMP, CBC, THYROID SC #### [address] NRBC% 0.2 /100{WBC} Normal 0-0.5 [facility] Comment on above: Order Comment: Reaso n for Exam Bipolar disorder Performed By: #### F E and TIBC, ALOK, LIPID, [id number], CMP, CBC, THYROID SC #### [facility] [address] Comprehensive Metabolic Pane louise 03-19-2023 Albumin [Mass/Vol] 4.3 g/dL Normal 3.5-5.7 [facility] Comment on above: Order Comment: Reaso n for Exam Bipolar disorder Reason for Exam Restless leg syndrome Reason for Exam Tobacco use;Bipolar disorder Reason for Exam Vitamin B 12 deficiency Performed By: #### F E and TIBC, ALOK, LIPID, [id number], CMP, CBC, THYROID SC #### [facility] [address] GFR/1.73 sq M.predicted MDRD (S/P/Bld) [Vol rate/Area] mL/min/{1.73_m2} Normal [facility] Comment on above: Order Comment: Reaso n for Exam Bipolar disorder Reason for Exam Restless leg syndrome Reason for Exam Tobacco use;Bipolar disorder Reason for Exam Vitamin B 12 deficiency Performed By: #### F E and TIBC, ALOK, LIPID, [id number], CMP, CBC, THYROID SC #### [facility] [address] [place] [id number] [facility] Creatinine [Mass/volume] in Serum or PlasmaOrdered By: Rufina Ruiz on 03-19-2023 Creatinine [Mass/Vol] 0.74 mg/dL Normal 0.60-1.20 [facility] Comment on above: Order Comment: Reaso n for Exam Bipolar disorder Reason for Exam Restless leg syndrome Reason for Exam Tobacco use;Bipolar disorder Reason for Exam Vitamin B 12 deficiency Performed By: #### F E and TIBC, ALOK, LIPID, [id number], CMP, CBC, THYROID SC #### [address] Erythrocyte distribution wid th [Ratio] by Automated countOrdered By: Rufina Ruiz on 03-19-2023 Erythrocyte distribution width (RBC) [Ratio] 13.7 % Normal 11.9-15.3 [facility] Comment on above: Order Comment: Reaso n for Exam Bipolar disorder Performed By: #### F E and TIBC, ALOK, LIPID, [id number], CMP, CBC, THYROID SC #### [facility] [address] [place] [id number] [facility] Erythrocytes [#/volume] in B lood by Automated countOrdered By: Rufina Ruiz on 03-19-2023 RBC (Bld) [#/Vol] 4.38 10*6/uL Normal 3.60-5.00 [facility] Comment on above: Order Comment: Reaso n for Exam Bipolar disorder Performed By: #### F E and TIBC, ALOK, LIPID, [id number], CMP, CBC, THYROID SC #### [facility] [address] [place], [place] [address] Ferritin [Mass/volume] in Se rum or PlasmaOrdered By: Rufina Ruiz on 03-19-2023 Ferritin [Mass/Vol] 58.3 ng/mL Normal 11.0-306.8 [facility] Comment on above: Order Comment: Reaso n for Exam Bipolar disorder Reason for Exam Restless leg syndrome Reason for Exam Tobacco use;Bipolar disorder Reason for Exam Vitamin B 12 deficiency Performed By: #### F E and TIBC, ALOK, LIPID, [id number], CMP, CBC, THYROID SC #### [facility] [address] [place] [id number] [facility] Folate [Mass/volume] in Seru m or PlasmaOrdered By: Rufina Ruiz on 03-19-2023 Folate [Mass/Vol] 5.7 ng/mL >5.9 [facility] Comment on above: Folate reference ran ge: >5.9 ng/mlThe WHO technical consultation on folate and vitamin [id number] has determined that folate concentrations lessthan 4 ng/ml are considered deficient. Glucose [Mass/volume] in Ser um or PlasmaOrdered By: Rufina Ruiz on 03-19-2023 Glucose [Mass/Vol] 94 mg/dL Normal 70-100 [facility] Comment on above: ADA recommended refe rence rangeRandom Glucose Reference Range is dependent on time and content of last meal. Glucose of more than 200 mg/dL in a nonstressed, ambulatory subject supports the diagnosis of Diabetes Mellitus. Order Comment: Reaso n for Exam Bipolar disorder Reason for Exam Restless leg syndrome Reason for Exam Tobacco use;Bipolar disorder Reason for Exam Vitamin B 12 deficiency Result Comment: Cope om Glucose Reference Range is dependent on time and content of last meal. Glucose of more than 200 mg/dL in a nonstressed, ambulatory subject supports the diagnosis of Diabetes Mellitus. ADA recommended reference range Performed By: #### F E and TIBC, ALOK, LIPID, [id number], CMP, CBC, THYROID SC #### [facility] [address] [place] [address] [facility] Hematocrit [Volume Fraction] of Blood by Automated countOrdered By: Rufina Chewson on 03-19-2023 Hematocrit (Bld) [Volume fraction] 39.9 % Normal 34.0-46.4 [facility] Comment on above: Order Comment: Reaso n for Exam Bipolar disorder Performed By: #### F E and TIBC, ALOK, LIPID, [id number], CMP, CBC, THYROID SC #### [facility] [address] [place] [id number] [facility] Hemoglobin [Mass/volume] in BloodOrdered By: Rufina Ruiz on 03-19-2023 Hemoglobin (Bld) [Mass/Vol] 13.3 g/dL Normal 11.8-15.4 [facility] Comment on above: Order Comment: Reaso n for Exam Bipolar disorder Performed By: #### F E and TIBC, ALOK, LIPID, [id number], CMP, CBC, THYROID SC #### [facility] [address] [place] [id number] [facility] Iron [Mass/volume] in Serum or PlasmaOrdered By: Rufina Ruiz on 03-19-2023 Iron [Mass/Vol] 68 ug/dL Normal 50-212 [facility] Comment on above: Order Comment: Reaso n for Exam Bipolar disorder Reason for Exam Restless leg syndrome Reason for Exam Tobacco use;Bipolar disorder Reason for Exam Vitamin B 12 deficiency Performed By: #### F E and TIBC, ALOK, LIPID, [id number], CMP, CBC, THYROID SC #### [facility] [address] [place] [id number] [facility] Iron and TIBC Profileon % Iron Saturation 22.3 % Normal 20-50 [facility] Comment on above: Order Comment: Reaso n for Exam Bipolar disorder Reason for Exam Restless leg syndrome Reason for Exam Tobacco use;Bipolar disorder Reason for Exam Vitamin B 12 deficiency Performed By: #### F E and TIBC, ALOK, LIPID, [id number], CMP, CBC, THYROID SC #### [facility] [address] [place] [address] [facility] Total Iron Binding Capacity 305 ug/dL Normal 255-450 [facility] Comment on above: Order Comment: Reaso n for Exam Bipolar disorder Reason for Exam Restless leg syndrome Reason for Exam Tobacco use;Bipolar disorder Reason for Exam Vitamin B 12 deficiency Performed By: #### F E and TIBC, ALOK, LIPID, [id number], CMP, CBC, THYROID SC #### [facility] [address] Iron binding capacity [Mass/ volume] in Serum or PlasmaOrdered By: Rufina Ruiz on 03-19-2023 Iron binding capacity [Mass/Vol] 305 ug/dL 255-450 [facility] Iron saturation [Mass Fracti on] in Serum or PlasmaOrdered By: Rufina Ruiz on 03-19-2023 Iron saturation [Mass fraction] 22.3 % 20-50 [facility] Leukocytes [#/volume] correc zakia for nucleated erythrocytes in Blood by Automated counOrdered By: Rufina Ruiz on 03-19-2023 WBC corrected for nucl RBC Auto (Bld) [#/Vol] 9.6 10*3/uL 3.8-11.6 [facility] Leukocytes [#/volume] in Blo od by Automated countOrdered By: Rufina Ruiz on 03-19-2023 WBC (Bld) [#/Vol] 9.6 10*3/uL Normal 3.8-11.6 [facility] Comment on above: Order Comment: Reaso n for Exam Bipolar disorder Performed By: #### F E and TIBC, ALOK, LIPID, [id number], CMP, CBC, THYROID SC #### [facility] [address] Lipid Panelon 03-19-2023 LDL Cholesterol,Calculated 84 mg/dL Normal 0-100 [facility] Comment on above: [...] #### F E and TIBC, ALOK, LIPID, [id number], CMP, CBC, THYROID SC #### [facility] [address] Triglyceride w/Reflex 99 mg/dL Normal 0-149 [facility] Comment on above: [...] #### F E and TIBC, ALOK, LIPID, [id number], CMP, CBC, THYROID SC #### [address] VLDL CHOLESTEROL 19 mg/dL Normal [facility] Comment on above: Order Comment: Reaso n for Exam Bipolar disorder Reason for Exam Restless leg syndrome Reason for Exam Tobacco use;Bipolar disorder Reason for Exam Vitamin B 12 deficiency Performed By: #### F E and TIBC, ALOK, LIPID, [id number], CMP, CBC, THYROID SC #### [address] Lymphocytes [#/volume] in Bl ood by Automated countOrdered By: Rufina Ruiz on 03-19-2023 Lymphocytes (Bld) [#/Vol] 2.4 10*3/uL Normal 1.00-4.8 [facility] Comment on above: Order Comment: Reaso n for Exam Bipolar disorder Performed By: #### F E and TIBC, ALOK, LIPID, [id number], CMP, CBC, THYROID SC #### [facility] [address] Lymphocytes/100 leukocytes i n Blood by Automated countOrdered By: Rufina Ruiz on 03-19-2023 Lymphocytes/100 WBC (Bld) 25.6 % Normal . [facility] Comment on above: Order Comment: Reaso n for Exam Bipolar disorder Performed By: #### F E and TIBC, ALOK, LIPID, [id number], CMP, CBC, THYROID SC #### [address] MCH [Entitic mass] by Automa zakia countOrdered By: Rufina Ruiz on 03-19-2023 MCH (RBC) [Entitic mass] 30.3 pg Normal 24.7-34.3 [facility] Comment on above: Order Comment: Reaso n for Exam Bipolar disorder Performed By: #### F E and TIBC, ALOK, LIPID, [id number], CMP, CBC, THYROID SC #### [address] MCHC Auto (RBC) [Mass/Vol]Or dered By: Rufina Ruiz on 03-19-2023 MCHC (RBC) [Mass/Vol] 33.3 g/dL 32.0-35.0 [facility] MCV [Entitic volume] by Auto mated countOrdered By: Rufina Ruiz on 03-19-2023 MCV (RBC) [Entitic vol] 91.1 fL Normal 80-100 [facility] Comment on above: Order Comment: Reaso n for Exam Bipolar disorder Performed By: #### F E and TIBC, ALOK, LIPID, [id number], CMP, CBC, THYROID SC #### [address] Neutrophils [#/volume] in Bl ood by Automated countOrdered By: Rufina Ruiz on 03-19-2023 Neutrophils (Bld) [#/Vol] 6.2 10*3/uL Normal 1.8-7.7 [facility] Comment on above: Order Comment: Reaso n for Exam Bipolar disorder Performed By: #### F E and TIBC, ALOK, LIPID, [id number], CMP, CBC, THYROID SC #### [address] No Panel InformationOrdered By: Rufina Ruiz on 03-19-2023 Estimated GFR (CKD-EPI) > 60.0 mL/Min [facility] Creatinine Clearance (Chem N/A [facility] Nucleated erythrocytes [Pres ence] in Blood by Automated countOrdered By: Rufina Ruiz on 03-19-2023 Nucleated RBC Auto Ql (Bld) 0.2 /100{WBC} 0-0.5 [facility] Platelet mean volume [Entiti c volume] in Blood by Automated countOrdered By: Rufina Ramiro on 03-19-2023 Platelet mean volume (Bld) [Entitic vol] 10.4 fL Normal 6.3-10.7 [facility] Comment on above: Order Comment: Reaso n for Exam Bipolar disorder Performed By: #### F E and TIBC, ALOK, LIPID, [id number], CMP, CBC, THYROID SC #### [facility] [address] [place] [address] [place] Platelets [#/volume] in Bloo d by Automated countOrdered By: Rufina Ruiz on 03-19-2023 Platelets (Bld) [#/Vol] 179 10*3/uL Normal 150-450 [facility] Comment on above: Order Comment: Reaso n for Exam Bipolar disorder Performed By: #### F E and TIBC, ALOK, LIPID, [id number], CMP, CBC, THYROID SC #### [facility] [address] [place] [address] [place] Potassium [Moles/volume] in Serum or PlasmaOrdered By: Rufina Ruiz on 03-19-2023 Potassium [Moles/Vol] 4.6 mmol/L Normal 3.5-5.1 [facility] Comment on above: Order Comment: Reaso n for Exam Bipolar disorder Reason for Exam Restless leg syndrome Reason for Exam Tobacco use;Bipolar disorder Reason for Exam Vitamin B 12 deficiency Performed By: #### F E and TIBC, ALOK, LIPID, [id number], CMP, CBC, THYROID SC #### [facility] [address] [place] [id number] [place] Protein [Mass/volume] in Ser um or PlasmaOrdered By: Rufina Ruiz on 03-19-2023 Protein [Mass/Vol] 6.4 g/dL Normal 6.4-8.9 [facility] Comment on above: Order Comment: Reaso n for Exam Bipolar disorder Reason for Exam Restless leg syndrome Reason for Exam Tobacco use;Bipolar disorder Reason for Exam Vitamin B 12 deficiency Performed By: #### F E and TIBC, ALOK, LIPID, [id number], CMP, CBC, THYROID SC #### [facility] [address] Serum globulin measurement b y calculation (mass/volume)Ordered By: Rufina Ruiz on 03-19-2023 Globulin (S) [Mass/Vol] 2.1 g/dL Normal [facility] Comment on above: Order Comment: Reaso n for Exam Bipolar disorder Reason for Exam Restless leg syndrome Reason for Exam Tobacco use;Bipolar disorder Reason for Exam Vitamin B 12 deficiency Performed By: #### F E and TIBC, ALOK, LIPID, [id number], CMP, CBC, THYROID SC #### [address] Serum or plasma albumin/glob ulin mass ratioOrdered By: Rufina Ruiz on 03-19-2023 Albumin/Globulin [Mass ratio] 2.0 {ratio} [facility] Comment on above: Order Comment: Reaso n for Exam Bipolar disorder Reason for Exam Restless leg syndrome Reason for Exam Tobacco use;Bipolar disorder Reason for Exam Vitamin B 12 deficiency Performed By: #### F E and TIBC, ALOK, LIPID, [id number], CMP, CBC, THYROID SC #### [address] Serum or plasma anion gap de terminationOrdered By: Rufina Ruiz on 03-19-2023 Anion gap [Moles/Vol] 6.2 mmol/L Normal 6.0-15.0 [facility] Comment on above: Order Comment: Reaso n for Exam Bipolar disorder Reason for Exam Restless leg syndrome Reason for Exam Tobacco use;Bipolar disorder Reason for Exam Vitamin B 12 deficiency Performed By: #### F E and TIBC, ALOK, LIPID, [id number], CMP, CBC, THYROID SC #### [address] Serum or plasma high density lipoprotein (HDL) cholesterol measurementOrdered By: Rufina Ruiz on 03-19-2023 Cholesterol in HDL [Mass/Vol] 60 mg/dL Normal 23-92 [facility] Comment on above: HDL CHOL ATP-III CLA SSIFICATION Cardiovascular RiskHDL > or equal to 60 mg/dL LOWHDL < 40 mg/dL HIGH Order Comment: Reaso n for Exam Bipolar disorder Reason for Exam Restless leg syndrome Reason for Exam Tobacco use;Bipolar disorder Reason for Exam Vitamin B 12 deficiency Result Comment: HDL CHOL ATP-III CLASSIFICATION Cardiovascular Risk HDL > or equal to 60 mg/dL LOW HDL < 40 mg/dL HIGH Performed By: #### F E and TIBC, ALOK, LIPID, [id number], CMP, CBC, THYROID SC #### [facility] [address] Serum or plasma total choles terol/high density lipoprotein (HDL) cholesterol mass ratOrdered By: Rufina Ruiz on 03-19-2023 Cholesterol.total/Katie sterol in HDL [Mass ratio] 2.7 {ratio} Normal <5.0 [facility] Comment on above: Order Comment: Reaso n for Exam Bipolar disorder Reason for Exam Restless leg syndrome Reason for Exam Tobacco use;Bipolar disorder Reason for Exam Vitamin B 12 deficiency Performed By: #### F E and TIBC, ALOK, LIPID, [id number], CMP, CBC, THYROID SC #### [facility] [address] Sodium [Moles/volume] in Ser um or PlasmaOrdered By: Rufina Ruiz on 03-19-2023 Sodium [Moles/Vol] 139 mmol/L Normal 136-145 [facility] Comment on above: Order Comment: Reaso n for Exam Bipolar disorder Reason for Exam Restless leg syndrome Reason for Exam Tobacco use;Bipolar disorder Reason for Exam Vitamin B 12 deficiency Performed By: #### F E and TIBC, ALOK, LIPID, [id number], CMP, CBC, THYROID SC #### [facility] [address] Thyrotropin [Units/volume] i n Serum or PlasmaOrdered By: Rufina Ruiz on 03-19-2023 TSH Qn 1.95 m[IU]/L Normal 0.45-5.33 [facility] Comment on above: Order Comment: Reaso n for Exam Bipolar disorder Reason for Exam Restless leg syndrome Reason for Exam Tobacco use;Bipolar disorder Reason for Exam Vitamin B 12 deficiency Result Comment: PERF ORMED BY: [place] [address] PATHOLOGIST FIELD AIDE MARINE WARD M.D. Performed By: #### F E and TIBC, ALOK, LIPID, [id number], CMP, CBC, THYROID SC #### [address] Thyroxine (T4) free [Mass/vo lume] in Serum or PlasmaOrdered By: Rufina Ruiz on 03-19-2023 Free T4 [Mass/Vol] 0.70 ng/dL Normal 0.61-1.12 [facility] Comment on above: Order Comment: Reaso n for Exam Bipolar disorder Reason for Exam Restless leg syndrome Reason for Exam Tobacco use;Bipolar disorder Reason for Exam Vitamin B 12 deficiency Performed By: #### F E and TIBC, ALOK, LIPID, [id number], CMP, CBC, THYROID SC #### [place] [id number] [facility] Transferrin [Mass/volume] in Serum or PlasmaOrdered By: Rufina Ruiz on 03-19-2023 Transferrin [Mass/Vol] 218 mg/dL Normal 203-362 [facility] Comment on above: Order Comment: Reaso n for Exam Bipolar disorder Reason for Exam Restless leg syndrome Reason for Exam Tobacco use;Bipolar disorder Reason for Exam Vitamin B 12 deficiency Performed By: #### F E and TIBC, ALOK, LIPID, [id number], CMP, CBC, THYROID SC #### [address] Triglyceride [Mass/volume] i n Serum or PlasmaOrdered By: Rufina Ruiz on 03-19-2023 Triglyceride [Mass/Vol] 99 mg/dL 0-149 [facility] Comment on above: TRIG ATP III CLASSIF ICATIONTRIG less than 150 mg/dL NormalTRIG 150-199 mg/dL Borderline highTRIG 200-500 mg/dL High TRIG greater than 500 mg/dL Very highStandard traceable to the Center for Disease Conrtrol and Prevention (CDC) test method. Urea nitrogen [Mass/volume] in Serum or PlasmaOrdered By: Rufina Ruiz on 03-19-2023 Urea nitrogen [Mass/Vol] 7 mg/dL Normal 7-25 [facility] Comment on above: Order Comment: Reaso n for Exam Bipolar disorder Reason for Exam Restless leg syndrome Reason for Exam Tobacco use;Bipolar disorder Reason for Exam Vitamin B 12 deficiency Performed By: #### F E and TIBC, ALOK, LIPID, [id number], CMP, CBC, THYROID SC #### [facility] [address] Vit. B12/Folate Profileon Folate 5.7 ng/mL Low >5.9 [facility] Comment on above: [...] #### F E and TIBC, ALOK, LIPID, [id number], CMP, CBC, THYROID SC #### [facility] [address] Vitamin B12 ser/plasOrdered By: Rufina Ruiz on 03-19-2023 Cobalamin (Vitamin B12) [Mass/Vol] 641 pg/mL Normal 180-914 [facility] Comment on above: Order Comment: Reaso n for Exam Bipolar disorder Reason for Exam Restless leg syndrome Reason for Exam Tobacco use;Bipolar disorder Reason for Exam Vitamin B 12 deficiency Performed By: #### F E and TIBC, ALOK, LIPID, [id number], CMP, CBC, THYROID SC #### [facility] [address] Vitamin B12 ser/plasOrdered By: Rufina Ruiz on 11-16-2022 Cobalamin (Vitamin B12) [Mass/Vol] 363 pg/mL 180-914 [facility] Vitamin B12 ser/plasOrdered By: Rufina Ruiz on 09-21-2022 Cobalamin (Vitamin B12) [Mass/Vol] 548 pg/mL 180-914 [facility] Urine culture routineOrdered By: Rufina Ruiz on 08-31-2022 Bacteria identified Cx Nom (U) Escherichia coli [facility] Basophils Auto (Bld) [#/Vol] Ordered By: Salvador Maier on 07-22-2022 Basophils (Bld) [#/Vol] 0.1 10*3/uL 0.0-0.2 [facility] Basophils/100 WBC Auto (Bld) Ordered By: Salvador Maier on 07-22-2022 Basophils/100 WBC (Bld) 1.0 % . F [facility] Bilirubin Test strip Ql (U)O rdered By: Salvador Maier on 07-22-2022 Bilirubin Ql (U) Negative Negative [facility] Body fluid albumin measureme nt (mass/volume)Ordered By: Salvador Maier on 07-22-2022 Albumin (Body fld) [Mass/Vol] 3.9 g/dL 3.2-5.5 [facility] Color Auto (U)Ordered By: Nguyễn Maier on 07-22-2022 Color (U) Yellow Yellow [facility] Creatinine and Glomerular fi ltration rate.predicted panel (S/P/Bld)Ordered By: Salvador Maier on 07-22-2022 Creatinine [Mass/Vol] 0.68 mg/dL 0.44-1.03 [facility] Eosinophils Auto (Bld) [#/Vo l]Ordered By: Salvador Maier on 07-22-2022 Eosinophils (Bld) [#/Vol] 0.4 10*3/uL 0.0-0.45 [facility] Eosinophils/100 WBC Auto (Bl d)Ordered By: Salvador Maier on 07-22-2022 Eosinophils/100 WBC (Bld) 4.1 % . [facility] Erythrocyte distribution wid th Auto (RBC) [Ratio]Ordered By: Salvador Maier on 07-22-2022 Erythrocyte distribution width (RBC) [Ratio] 14.7 % 11.9-15.3 [facility] Estimated glomerular filtrat ion rate (GFR) non- AmericanOrdered By: Salvador Maier on 07-22-2022 GFR/1.73 sq M.predicted among non-blacks MDRD (S/P/Bld) [Vol rate/Area] > 60 mL/Min [facility] Globulin Calc (S) [Mass/Vol] Ordered By: Salvador Maier on 07-22-2022 Globulin (S) [Mass/Vol] 2.5 g/dL F [facility] HCG ( test) IA.rapi d Ql (U)Ordered By: Salvador Maier on 07-22-2022 HCG ( test) Ql (U) Negative [facility] Hematocrit Auto (Bld) [Volum e fraction]Ordered By: Salvador Maier on 07-22-2022 Hematocrit (Bld) [Volume fraction] 40.9 % 34.0-46.4 [facility] Hemoglobin [Mass/volume] in BloodOrdered By: Salvador Maier on 07-22-2022 Hemoglobin (Bld) [Mass/Vol] 13.3 g/dL 11.8-15.4 [facility] Ketones Auto test strip (U) [Mass/Vol]Ordered By: Salvador Maier on 07-22-2022 Ketones (U) [Mass/Vol] Negative Negative Fi [facility] - Chemistry and C hemistry - challengeOrdered By: Salvador Maier on 07-22-2022 Lipase [Catalytic activity/Vol] 70.0 U/L 22-51 [facility] Leukocytes [#/volume] correc zakia for nucleated erythrocytes in Blood by Automated counOrdered By: Salvador Maier on 07-22-2022 WBC corrected for nucl RBC Auto (Bld) [#/Vol] 8.8 10*3/uL 3.8-11.6 [facility] Lymphocytes Auto (Bld) [#/Vo l]Ordered By: Salvador Maier on 07-22-2022 Lymphocytes (Bld) [#/Vol] 3.1 10*3/uL 1.00-4.8 [facility] Lymphocytes/100 WBC Auto (Bl d)Ordered By: Salvador Maier on 07-22-2022 Lymphocytes/100 WBC (Bld) 35.0 % . [facility] MCH Auto (RBC) [Entitic mass ]Ordered By: Salvador Maier on 07-22-2022 MCH (RBC) [Entitic mass] 30.2 pg 24.7-34.3 [facility] MCHC Auto (RBC) [Mass/Vol]Or dered By: Salvador Maier on 07-22-2022 MCHC (RBC) [Mass/Vol] 32.6 g/dL 32.0-35.0 [facility] MCV Auto (RBC) [Entitic vol] Ordered By: Salvador Maier on 07-22-2022 MCV (RBC) [Entitic vol] 92.6 fL 80-[address] [facility] Monocyte distribution width [Entitic volume] in Blood by AutomatedOrdered By: Salvador Maier on 07-22-2022 Monocyte distribution width Auto (Bld) [Entitic vol] 20.62 % 0.00-20.00 [facility] Comment on above: For adults in ED, MD W > 20.0 may be associated with a higher risk of sepsis during the first 12 hrs of hospital admission Monocytes Auto (Bld) [#/Vol] Ordered By: Salvador Maier on 07-22-2022 Monocytes (Bld) [#/Vol] 0.6 10*3/uL 0.0-0.8 [facility] Monocytes/100 WBC Auto (Bld) Ordered By: Salvador Maier on 07-22-2022 Monocytes/100 WBC (Bld) 7.1 % . F [facility] Neutrophils Auto (Bld) [#/Vo l]Ordered By: Salvador Maier on 07-22-2022 Neutrophils (Bld) [#/Vol] 4.6 10*3/uL 1.8-7.7 [facility] Neutrophils/100 WBC Auto (Bl d)Ordered By: Salvador Maier on 07-22-2022 Neutrophils/100 WBC (Bld) 52.8 % . [facility] Nitrite Test strip Ql (U)Ord ered By: Salvador Maier on 07-22-2022 Nitrite Ql (U) Negative Negative [facility] No Panel InformationOrdered By: Salvador Maier on 07-22-2022 Estimated GFR () > 60 mL/Min [facility] Comment on above: GFR estimated refere nce range: According to KDOQI guidelines, <60 ml/min/1.73m2 is sufficient to diagnose a patient with chronic kidney disease. Pharmacy Creatinine Clearance (Chem 90.47 [facility] Nucleated erythrocytes [Pres ence] in Blood by Automated countOrdered By: Salvador Maier on 07-22-2022 Nucleated RBC Auto Ql (Bld) 0.2 /100{WBC} 0-0.5 [facility] Platelet mean volume Auto (B ld) [Entitic vol]Ordered By: Salvador Maier on 07-22-2022 Platelet mean volume (Bld) [Entitic vol] 9.1 fL 6.3-10.7 [facility] Platelets Auto (Bld) [#/Vol] Ordered By: Salvador Maier on 07-22-2022 Platelets (Bld) [#/Vol] 202 10*3/uL 150-450 [facility] Protein Auto test strip (U) [Mass/Vol]Ordered By: Salvador Maier on 07-22-2022 Protein (U) [Mass/Vol] Negative Negative [facility] Protein [Mass/volume] in Ser um or PlasmaOrdered By: Salvador Maier on 07-22-2022 Protein [Mass/Vol] 6.4 g/dL 6.1-7.9 [facility] RBC Auto (Bld) [#/Vol]Ordere d By: Salvador Maier on 07-22-2022 RBC (Bld) [#/Vol] 4.42 10*6/uL 3.60-5.00 [facility] Serum or plasma alanine mckeon otransferase measurement without P-5'-P (enzymatic activiOrdered By: Salvador Maier on 07-22-2022 ALT No additional P-5'-P [Catalytic activity/Vol] 12 U/L 10-60 [facility] Serum or plasma albumin/glob ulin mass ratioOrdered By: Salvador Maier on 07-22-2022 Albumin/Globulin [Mass ratio] 1.6 {ratio} [facility] Serum or plasma alkaline kamron sphatase measurement (enzymatic activity/volume)Ordered By: Salvador Maier on 07-22-2022 ALP [Catalytic activity/Vol] 109 U/L 32-92 [facility] Serum or plasma anion gap de terminationOrdered By: Salvador Maier on 07-22-2022 Anion gap [Moles/Vol] 13.2 mmol/L 6.0-15.0 [facility] Serum or plasma aspartate am inotransferase measurement (enzymatic activity/volume)Ordered By: Salvador Maier on 07-22-2022 AST [Catalytic activity/Vol] 16 U/L 10-42 [facility] Serum or plasma calcium kunal urement (mass/volume)Ordered By: Salvador Maier on 07-22-2022 Calcium [Mass/Vol] 8.8 mg/dL 8.2-10.2 [facility] Serum or plasma chloride chacorta surement (moles/volume)Ordered By: Salvador Maier on 07-22-2022 Chloride [Moles/Vol] 103 mmol/L 95-114 [facility] Serum or plasma glucose kunal urement (mass/volume)Ordered By: Salvador Maier on 07-22-2022 Glucose [Mass/Vol] 102 mg/dL 70-100 [facility] Comment on above: ADA recommended refe rence rangeRandom Glucose Reference Range is dependent on time and content of last meal. Glucose of more than 200 mg/dL in a nonstressed, ambulatory subject supports the diagnosis of Diabetes Mellitus. Serum or plasma potassium me asurement (moles/volume)Ordered By: Salvador Maier on 07-22-2022 Potassium [Moles/Vol] 3.2 mmol/L 3.5-5.1 [facility] Serum or plasma sodium measu rement (moles/volume)Ordered By: Salvador Maier on 07-22-2022 Sodium [Moles/Vol] 139 mmol/L 136-146 [facility] Serum or plasma total biliru bin measurement (mass/volume)Ordered By: Salvador Maier on 07-22-2022 Bilirubin [Mass/Vol] 0.3 mg/dL 0.3-1.2 [facility] Serum or plasma total carbon dioxide measurement (moles/volume)Ordered By: Salvador Maier on 07-22-2022 CO2 [Moles/Vol] 26.0 mmol/L 22.0-30.0 [facility] Serum or plasma urea nitroge n measurement (mass/volume)Ordered By: Salvador Maier on 07-22-2022 Urea nitrogen [Mass/Vol] 4 mg/dL - [facility] Specific gravity Auto test s trip (U) [Rel density]Ordered By: Salvador Maier on 07-22-2022 Specific gravity (U) [Rel density] 1.004 1.001-1.030 [facility] Urine clarity by refractomet ry automatedOrdered By: Salvador Maier on 07-22-2022 Clarity Refractometry automated (U) Clear Clear [facility] Urine glucose measurement by automated test strip (mass/volume)Ordered By: Salvador Maier on 07-22-2022 Glucose Auto test strip (U) [Mass/Vol] Normal mg/dL Normal [facility] Urine hemoglobin detection b y automated test stripOrdered By: Salvador Maier on 07-22-2022 Hemoglobin Auto test strip Ql (U) Negative Negative [facility] Urine leukocyte esterase det ection by automated test stripOrdered By: Salvador Maier on 07-22-2022 Leukocyte esterase Auto test strip Ql (U) Negative Negative [facility] Urobilinogen Auto test strip (U) [Mass/Vol]Ordered By: Salvador Maier on 07-22-2022 Urobilinogen (U) [Mass/Vol] Normal mg/dL Normal [facility] WBC Auto (Bld) [#/Vol]Ordere d By: Salvador Maier on 07-22-2022 WBC (Bld) [#/Vol] 8.8 10*3/uL 3.8-11.6 [facility] pH Auto test strip (U)Ordere d By: Salvador Maier on 07-22-2022 pH (U) 7.0 [pH] 5.0-9.0 [facility] CBC AUTO DIFFon 07-21-2022 BASO # 0.0 103/ul Normal 0.0-0.1 [facility] Comment on above: Performed By: #### C BC ####[facility] [address] [place] [address]DrGideon Pan Basophils/100 WBC (Bld) 0.5 % Normal 0.2-2.0 [facility] Comment on above: Performed By: #### C BC ####[facility] [address] [place], [place] [address]DrGideon Pan EO # 0.5 103/ul Normal 0.0-0.7 [facility] Comment on above: Performed By: #### C BC ####[facility] [address] [place], [place] [address]Dr. Ruthie Pan Eosinophils/100 WBC (Bld) 5.8 % Normal 0.9-7.0 [facility] Comment on above: Performed By: #### C BC ####[facility] [address] [place] [address]Dr. Ruthie Pan Erythrocyte distribution width (RBC) [Ratio] 14.0 % Normal 11.0-15.0 [facility] Comment on above: Performed By: #### C BC ####[facility] [address] [place], [place] [address]Dr. Ruthie Pan Hematocrit (Bld) [Volume fraction] 38.9 % Normal 36.0-48.0 [facility] Comment on above: Performed By: #### C BC ####[facility] [address] [place], [place] [address]Dr. Ruthie Pan Hemoglobin (Bld) [Mass/Vol] 13.0 g/dL Normal 12.0-16.0 [facility] Comment on above: Performed By: #### C BC ####[facility] Br[address] [place], [place] [address]Dr. Ruthie Pan IG # 0.02 10e3/ul Normal 0.00-0.03 [facility] Comment on above: Performed By: #### C BC ####[facility] X[address] [place], [place] [address]Dr. Ruthie Pna IG % 0.3 % Normal 0.0-0.5 [facility] Comment on above: Performed By: #### C BC ####[facility] [address] [place], [place] [address]Dr. Ruthie Pan LYMPH # 2.8 103/ul Normal 1.2-3.8 [facility] Comment on above: Performed By: #### C BC ####[facility] [address] [place], [place] [address]Dr. Ruthie Pan Lymphocytes/100 WBC (Bld) 36.0 % Normal 20.5-60.0 [facility] Comment on above: Performed By: #### C BC ####[facility] [address] [place] [address]Dr. Ruthie Maxim MANUAL DIFF REQ NO Normal [facility] Comment on above: Performed By: #### C BC ####[facility] [address] [place] [address]Dr. Ruthie Pan MCH (RBC) [Entitic mass] 30.6 pg Normal 26.7-34.0 [facility] Comment on above: Performed By: #### C BC ####[facility] [address] [place], [place] [address]Dr. Ruthie Maxim MCHC (RBC) [Mass/Vol] 33.4 g/dL Normal 29.9-35.2 [facility] Comment on above: Performed By: #### C BC ####[facility] Z[address] [place], [place] [address]Dr. Michaelajean-claude Pan MCV (RBC) [Entitic vol] 91.5 fL Normal 81.0-99.0 [facility] Comment on above: Performed By: #### C BC ####[facility] [address] [place], [place] [address]Dr. Ruthie Maxim MONO # 0.6 103/ul Normal 0.3-0.8 [facility] Comment on above: Performed By: #### C BC ####[facility] [address] [place], [place] [address]Dr. Ruthie Pan Monocytes/100 WBC (Bld) 7.9 % Normal 1.7-12.0 [facility] Comment on above: Performed By: #### C BC ####[facility] [address] [place], [place] [address]Dr. Ruthie Pan NEUT # 3.8 103/ul Normal 1.4-6.5 [facility] Comment on above: Performed By: #### C BC ####[facility] [address] [place], [place] [address]Dr. Ruthie Pan Neutrophils/100 WBC (Bld) 49.5 % Normal 43.0-75.0 [facility] Comment on above: Performed By: #### C BC ####[facility] [address] [place], [place] [id number]. Ruthie Pan Platelet mean volume (Bld) [Entitic vol] 10.6 fL Normal 9.5-13.5 [facility] Comment on above: Performed By: #### C BC ####[facility] [address] [place] [address]Dr. Ruthie Pan PLT 201 103/ul Normal 150-450 [facility] Comment on above: Performed By: #### C BC ####[facility] [address] [place] [address]Dr. Ruthie Pan RBC 4.25 106/ul Normal 4.20-5.40 [facility] Comment on above: Performed By: #### C BC ####[facility] [address] [place] [address]Dr. Ruthie Pan WBC 7.8 103/ul Normal 4.0-11.0 [facility] Comment on above: Performed By: #### C BC ####[facility] [address] [place] [address]DrGideon Pan ER URINE PROFILEon 3 Bilirubin Ql (U) Negative Normal NEGATIVE [facility] Comment on above: Performed By: #### U MICRO, ERUR #### [facility] [address] [place] [address] Dr. Ruthie Pan Clarity (U) CLEAR Normal CLEAR [facility] Comment on above: Performed By: #### U MICRO, ERUR #### [facility] [address] [place] [address] Dr. Ruthie Pan Color (U) LT. YELLOW Normal YELLOW [facility] Comment on above: Performed By: #### U MICRO, ERUR #### [facility] [address] [place] [address] Dr. Ruthie ARELLANO A micrscopic examination will be performed if indicated. Normal [facility] Comment on above: Performed By: #### U MICRO, ERUR #### [facility] [address] [place] [address] Dr. Ruthie Pan Glucose Ql (U) Negative Normal NEGATIVE [facility] Comment on above: Performed By: #### U MICRO, ERUR #### [facility] [address] [place] [address] [address] Ruthie Pan Hemoglobin Ql (U) TRACE-LYSED Abnormal NEGATIVE [facility] Comment on above: Performed By: #### U MICRO, ERUR #### [facility] [address] [place] [address] Dr. Ruthie Pan Ketones Ql (U) Negative Normal NEGATIVE [facility] Comment on above: Performed By: #### U MICRO, ERUR #### [facility] [address] [place] [address] Dr. Ruthie Pan LEUKOCYTES Negative Normal NEGATIVE [facility] Comment on above: Performed By: #### U MICRO, ERUR #### [facility] [address] [place] [address] Dr. Ruthie Pan Nitrite Ql (U) Negative Normal NEGATIVE [facility] Comment on above: Performed By: #### U MICRO, ERUR #### [facility] [address] [place] [address] Dr. Ruthie Pan pH (U) 6.5 [pH] Normal 5-9 [facility] Comment on above: Performed By: #### U MICRO, ERUR #### [facility] [address] [place] [address] Dr. Ruthie Pan SPEC GRAVITY <=1.005 Abnormal 1.005-<=1.02 5 [facility] Comment on above: Performed By: #### U MICRO, ERUR #### [facility] [address] [place] [address] [address] Ruthie Pan UA PROTEIN Negative Normal NEGATIVE/ TRACE [facility] Comment on above: Performed By: #### U MICRO, ERUR #### [facility] [address] [place] [address] Dr. Ruthie Pan UR MICRO IND INDICATED Normal [facility] Comment on above: Performed By: #### U MICRO, ERUR #### [facility] [address] [place] [address] Dr. Ruthie Pan Urobilinogen Qn (U) 0.2 {Harjeet'U}/dL Normal 0.2 - 1. 0 [facility] Comment on above: Performed By: #### U MICRO, ERUR #### [facility] [address] [place], [place] [address] Dr. Ruthie Pan LACTATE/LACTIC ACIDon 2022 Lactate [Moles/Vol] 0.7 mmol/L Normal 0.4-1.9 [facility] Comment on above: Performed By: #### L ACT ####[facility] [address] [place] [id number]. Ruthie Pan LIPASEon 07-21-2022 Lipase [Catalytic activity/Vol] 97.0 U/L Normal 73.0-393.0 [facility] Comment on above: Performed By: #### L IPA, CMP ####[facility] [address] [place] [address]Dr. Ruthie Pan PROF 14(COMP METB)on 023 Albumin [Mass/Vol] 3.6 g/dL Normal 3.4-5.0 [facility] Comment on above: Performed By: #### L IPA, CMP ####[facility] [address] [place] [address]DrGideon Pan Albumin/Globulin [Mass ratio] 1.3 {ratio} Normal [facility] Comment on above: Performed By: #### L IPA, CMP ####[facility] [address] [place] [id number] Pan ALP [Catalytic activity/Vol] 129 U/L Critically high 46-116 [facility] Comment on above: Performed By: #### L IPA, CMP ####[facility] [address] [place] [id number] Pan ALT [Catalytic activity/Vol] 13 U/L Critically low 14-59 [facility] Comment on above: Performed By: #### L IPA, CMP ####[facility] [address] [place] [id number] Pan Anion gap [Moles/Vol] 10.0 mmol/L Normal [facility] Comment on above: Performed By: #### L IPA, CMP ####[facility] [address] [place], [place] [address]Dr. Ruthie Pan AST [Catalytic activity/Vol] 13 U/L Critically low 15-37 [facility] Comment on above: Performed By: #### L IPA, CMP ####[facility] [address] [place], [place] [address]Dr. Ruthie Pan Bilirubin [Mass/Vol] 0.2 mg/dL Normal 0.2-1.0 [facility] Comment on above: Performed By: #### L IPA, CMP ####[facility] [address] [place], [place] [address]Dr. Ruthie Pan Calcium [Mass/Vol] 8.5 mg/dL Normal 8.5-10.1 [facility] Comment on above: Performed By: #### L IPA, CMP ####[facility] [address] [place], [place] [address]Dr. Ruthie Pan Chloride [Moles/Vol] 104 mmol/L Normal 98-107 [facility] Comment on above: Performed By: #### L IPA, CMP ####[facility] [address] [place], [place] [address]Dr. Ruthie Pan CO2 [Moles/Vol] 29.6 mmol/L Normal 21.0-32.0 [facility] Comment on above: Performed By: #### L IPA, CMP ####[facility] [address] [place], [place] [address]Dr. Ruthie Pan Creatinine [Mass/Vol] 0.67 mg/dL Normal 0.55-1.02 [facility] Comment on above: Performed By: #### L IPA, CMP ####[facility] [address] [place], [place] [address]Dr. Ruthie Pan EGFR-AF BURUNDIAN >60 Normal >=60 [facility] Comment on above: Performed By: #### L IPA, CMP ####[facility] [address] [place], [place] [address]Dr. Ruthie Pan EGFR-NON AF BURUNDIAN >60 Normal >=60 [facility] Comment on above: Performed By: #### L IPA, CMP ####[facility] [address] [place] [address]Dr. Ruthie Pan Globulin (S) [Mass/Vol] 2.8 g/dL Normal T [facility] Comment on above: Performed By: #### L IPA, CMP ####[facility] Aq[address] [place], [place] [address]Dr. Ruthie Pan Glucose [Mass/Vol] 106 mg/dL Normal 74-106 [facility] Comment on above: Performed By: #### L IPA, CMP ####[facility] [address] [place], [place] [address]Dr. Ruthie Pan Potassium [Moles/Vol] 3.6 mmol/L Normal 3.5-5.1 [facility] Comment on above: Performed By: #### L IPA, CMP ####[facility] Yl[address] [place], [place] [address]Dr. Ruthie Pan Protein [Mass/Vol] 6.4 g/dL Normal 6.4-8.2 [facility] Comment on above: Performed By: #### L IPA, CMP ####[facility] J[address] [place], [place] [address]Dr. Ruthie Pan Sodium [Moles/Vol] 140 mmol/L Normal 136-145 [facility] Comment on above: Performed By: #### L IPA, CMP ####[facility] [address] [place], [place] [address]Dr. Ruthie Pan Urea nitrogen [Mass/Vol] 4.0 mg/dL Critically low 7.0-18.0 [facility] Comment on above: Performed By: #### L IPA, CMP ####[facility] H[address]we[address] [place], [place] [address]Dr. Ruthie Maxim Urea nitrogen/Creatinine [Mass ratio] 6.0 mg/mg Normal [facility] Comment on above: Performed By: #### L IPA, CMP ####[facility] E[address] [place], [place] [address]Dr. Ruthie Maxim URINE MICROSCOPIC ONLYon BACTERIA NONE SEEN Normal NONE SEEN [facility] Comment on above: Performed By: #### U MICRO, ERUR #### [facility] [address] [place] [address] Dr. Ruthie Pan Bacteria identified Cx Nom (U) NOT INDICATED Normal [facility] Comment on above: Performed By: #### U MICRO, ERUR #### [facility] [address] [place] [address] Dr. Ruthie Pan CAST NONE SEEN Normal NONE SEEN [facility] Comment on above: Performed By: #### U MICRO, ERUR #### [facility] [address] [place] [address] Dr. Ruthie Pan Crystals LM Nom (Urine sed) NONE SEEN Normal NONE SEEN [facility] Comment on above: Performed By: #### U MICRO, ERUR #### [facility] [address] [place] [address] Dr. Ruthie Pan Epithelial cells LM Ql (Urine sed) FEW Abnormal NONE SEEN /RARE [facility] Comment on above: Performed By: #### U MICRO, ERUR #### [facility] [address] [place] [address] Dr. Ruthie Pan MUCOUS NONE SEEN Normal NONE SEEN [facility] Comment on above: Performed By: #### U MICRO, ERUR #### [facility] [address] [place] [address] Dr. Ruthie Pan RBC 0-2 Normal 0-2 [facility] Comment on above: Performed By: #### U MICRO, ERUR #### [facility] [address] [place] [address] Dr. Ruthie Pan WBC 0-2 Abnormal NONE SEEN [facility] Comment on above: Performed By: #### U MICRO, ERUR #### [facility] [address] [place] [address] Dr. Ruthie Pan US SINGLE QUAD RT [...] by: KAE VILLALPANDO Date: 2022-07-21 20:21 Normal [facility] Albumin [Mass/volume] in Ser um or PlasmaOrdered By: Rufina Ruiz on 07-20-2022 Albumin [Mass/Vol] 3.8 g/dL 3.2-5.5 [facility] Basophils Auto (Bld) [#/Vol] Ordered By: Rufina Ruiz on 07-20-2022 Basophils (Bld) [#/Vol] 0.1 10*3/uL 0.0-0.2 [facility] Basophils/100 WBC Auto (Bld) Ordered By: Rufina Ruiz on 07-20-2022 Basophils/100 WBC (Bld) 1.2 % . F [facility] Cholesterol [Mass/volume] in Serum or PlasmaOrdered By: Rufina Ruiz on 07-20-2022 Cholesterol [Mass/Vol] 183 mg/dL 140-200 [facility] Comment on above: Chol less than 200 m g/dl low riskChol 201-239 mg/dl borderline riskChol 240 mg/dl and greater high risk Cholesterol in LDL Calc [Mas s/Vol]Ordered By: Rufina Ruiz on 07-20-2022 Cholesterol in LDL [Mass/Vol] 104 mg/dL 0-100 [facility] Comment on above: LDL ATP III CLASSIFI CATIONLDL less than 100 mg/dL OptimalLDL 100-129 mg/dL Near or above optimalLDL 130-159 mg/dL Borderline highLDL 160-189 mg/dL HighLDL greater than 189 mg/dL Very high Cholesterol in VLDL Calc [Ma ss/Vol]Ordered By: Rufina Ruiz on 07-20-2022 Cholesterol in VLDL [Mass/Vol] 26 mg/dL [facility] Creatinine and Glomerular fi ltration rate.predicted panel (S/P/Bld)Ordered By: Rufina Ruiz on 07-20-2022 Creatinine [Mass/Vol] 0.64 mg/dL 0.44-1.03 [facility] Eosinophils Auto (Bld) [#/Vo l]Ordered By: Rufina Ruiz on 07-20-2022 Eosinophils (Bld) [#/Vol] 0.3 10*3/uL 0.0-0.45 [facility] Eosinophils/100 WBC Auto (Bl d)Ordered By: Rufina Ruiz on 07-20-2022 Eosinophils/100 WBC (Bld) 3.0 % . [facility] Erythrocyte distribution wid th Auto (RBC) [Ratio]Ordered By: Rufina Ruiz on 07-20-2022 Erythrocyte distribution width (RBC) [Ratio] 14.5 % 11.9-15.3 [facility] Estimated glomerular filtrat ion rate (GFR) non- AmericanOrdered By: Rufina Ruiz on 07-20-2022 GFR/1.73 sq M.predicted among non-blacks MDRD (S/P/Bld) [Vol rate/Area] > 60 mL/Min [facility] Globulin Calc (S) [Mass/Vol] Ordered By: Rufina Ruiz on 07-20-2022 Globulin (S) [Mass/Vol] 2.4 g/dL F [facility] Hematocrit Auto (Bld) [Volum e fraction]Ordered By: Rufina Ruiz on 07-20-2022 Hematocrit (Bld) [Volume fraction] 40.8 % 34.0-46.4 [facility] Hemoglobin [Mass/volume] in BloodOrdered By: Rufina Ruiz on 07-20-2022 Hemoglobin (Bld) [Mass/Vol] 13.4 g/dL 11.8-15.4 [facility] Laboratory - Chemistry and C hemistry - challengeOrdered By: Rufina Ruiz on 07-20-2022 Cobalamin (Vitamin B12) [Mass/Vol] 137 pg/mL 180-914 [facility] Lipase [Catalytic activity/Vol] 53.0 U/L 22-51 [facility] Leukocytes [#/volume] correc zakia for nucleated erythrocytes in Blood by Automated counOrdered By: Rufina Ruiz on 07-20-2022 WBC corrected for nucl RBC Auto (Bld) [#/Vol] 8.5 10*3/uL 3.8-11.6 [facility] Lymphocytes Auto (Bld) [#/Vo l]Ordered By: Rufina Ruiz on 07-20-2022 Lymphocytes (Bld) [#/Vol] 3.1 10*3/uL 1.00-4.8 [facility] Lymphocytes/100 WBC Auto (Bl d)Ordered By: Rufina Ruiz on 07-20-2022 Lymphocytes/100 WBC (Bld) 36.6 % . [facility] MCH Auto (RBC) [Entitic mass ]Ordered By: Rufina Ruiz on 07-20-2022 MCH (RBC) [Entitic mass] 30.4 pg 24.7-34.3 [facility] MCHC Auto (RBC) [Mass/Vol]Or dered By: Rufina Ruiz on 07-20-2022 MCHC (RBC) [Mass/Vol] 32.8 g/dL 32.0-35.0 [facility] MCV Auto (RBC) [Entitic vol] Ordered By: Rufina Ruiz on 07-20-2022 MCV (RBC) [Entitic vol] 92.7 fL 80-[address] [facility] Monocytes Auto (Bld) [#/Vol] Ordered By: Rufina Ruiz on 07-20-2022 Monocytes (Bld) [#/Vol] 0.6 10*3/uL 0.0-0.8 [facility] Monocytes/100 WBC Auto (Bld) Ordered By: Rufina Ruiz on 07-20-2022 Monocytes/100 WBC (Bld) 7.0 % . F [facility] Neutrophils Auto (Bld) [#/Vo l]Ordered By: Rufina Ruiz on 07-20-2022 Neutrophils (Bld) [#/Vol] 4.4 10*3/uL 1.8-7.7 [facility] Neutrophils/100 WBC Auto (Bl d)Ordered By: Rufina Ruiz on 07-20-2022 Neutrophils/100 WBC (Bld) 52.2 % . [facility] No Panel InformationOrdered By: Rufina Ruiz on 07-20-2022 Estimated GFR () > 60 mL/Min [facility] Comment on above: GFR estimated refere nce range: According to KDOQI guidelines, <60 ml/min/1.73m2 is sufficient to diagnose a patient with chronic kidney disease. Pharmacy Creatinine Clearance (Chem N/A [facility] Nucleated erythrocytes [Pres ence] in Blood by Automated countOrdered By: Rufina Ruiz on 07-20-2022 Nucleated RBC Auto Ql (Bld) 0.2 /100{WBC} 0-0.5 [facility] Platelet mean volume Auto (B ld) [Entitic vol]Ordered By: Rufina Ruiz on 07-20-2022 Platelet mean volume (Bld) [Entitic vol] 10.2 fL 6.3-10.7 [facility] Platelets Auto (Bld) [#/Vol] Ordered By: Rufina Ruiz on 07-20-2022 Platelets (Bld) [#/Vol] 183 10*3/uL 150-450 [facility] Protein [Mass/volume] in Ser um or PlasmaOrdered By: Rufina Ruiz on 07-20-2022 Protein [Mass/Vol] 6.2 g/dL 6.1-7.9 [facility] RBC Auto (Bld) [#/Vol]Ordere d By: Rufina Ruiz on 07-20-2022 RBC (Bld) [#/Vol] 4.40 10*6/uL 3.60-5.00 [facility] Serum or plasma alanine mckeon otransferase measurement without P-5'-P (enzymatic activiOrdered By: Rufina Ruiz on 07-20-2022 ALT No additional P-5'-P [Catalytic activity/Vol] 10 U/L 10-60 [facility] Serum or plasma albumin/glob ulin mass ratioOrdered By: Rufina Ruiz on 07-20-2022 Albumin/Globulin [Mass ratio] 1.6 {ratio} [facility] Serum or plasma alkaline kamron sphatase measurement (enzymatic activity/volume)Ordered By: Rufina Ruiz on 07-20-2022 ALP [Catalytic activity/Vol] 107 U/L 32-92 [facility] Serum or plasma amylase kunal urement (enzymatic activity/volume)Ordered By: Rufina Ruiz on 07-20-2022 Amylase [Catalytic activity/Vol] 129 U/L 28-100 [facility] Serum or plasma anion gap de terminationOrdered By: Rufina Ruiz on 07-20-2022 Anion gap [Moles/Vol] 9.5 mmol/L 6.0-15.0 [facility] Serum or plasma aspartate am inotransferase measurement (enzymatic activity/volume)Ordered By: Rufina Ruiz on 07-20-2022 AST [Catalytic activity/Vol] 13 U/L 10-42 [facility] Serum or plasma calcium kunal urement (mass/volume)Ordered By: Rufina Ruiz on 07-20-2022 Calcium [Mass/Vol] 8.7 mg/dL 8.2-10.2 [facility] Serum or plasma chloride chacorta surement (moles/volume)Ordered By: Rufina Ruiz on 07-20-2022 Chloride [Moles/Vol] 107 mmol/L 95-114 [facility] Serum or plasma glucose kunal urement (mass/volume)Ordered By: Rufina Ruiz on 07-20-2022 Glucose [Mass/Vol] 82 mg/dL 70-100 [facility] Comment on above: ADA recommended refe rence rangeRandom Glucose Reference Range is dependent on time and content of last meal. Glucose of more than 200 mg/dL in a nonstressed, ambulatory subject supports the diagnosis of Diabetes Mellitus. Serum or plasma high density lipoprotein (HDL) cholesterol measurementOrdered By: Rufina Ruiz on 07-20-2022 Cholesterol in HDL [Mass/Vol] 53 mg/dL 35-85 [facility] Comment on above: HDL CHOL ATP-III CLA SSIFICATION Cardiovascular RiskHDL > or equal to 60 mg/dL LOWHDL < 40 mg/dL HIGH Serum or plasma potassium me asurement (moles/volume)Ordered By: Rufina Ruiz on 07-20-2022 Potassium [Moles/Vol] 3.9 mmol/L 3.5-5.1 [facility] Serum or plasma sodium measu rement (moles/volume)Ordered By: Rufina Ruiz on 07-20-2022 Sodium [Moles/Vol] 138 mmol/L 136-146 [facility] Serum or plasma total biliru bin measurement (mass/volume)Ordered By: Rufina Ruiz on 07-20-2022 Bilirubin [Mass/Vol] 0.3 mg/dL 0.3-1.2 [facility] Serum or plasma total carbon dioxide measurement (moles/volume)Ordered By: Rufina Ruiz on 07-20-2022 CO2 [Moles/Vol] 25.4 mmol/L 22.0-30.0 [facility] Serum or plasma total choles terol/high density lipoprotein (HDL) cholesterol mass ratOrdered By: Rufina Ruiz on 07-20-2022 Cholesterol.total/Katie sterol in HDL [Mass ratio] 3.5 {ratio} <5.0 [facility] Serum or plasma urea nitroge n measurement (mass/volume)Ordered By: Rufina Ruiz on 07-20-2022 Urea nitrogen [Mass/Vol] 5 mg/dL 9-23 [facility] TSH DL <= 0.005 mIU/L QnOrde red By: Rufina Ruiz on 07-20-2022 TSH Qn 4.78 m[IU]/L 0.45-5.33 [facility] Thyroxine (T4) free [Mass/vo lume] in Serum or PlasmaOrdered By: Rufina Ruiz on 07-20-2022 Free T4 [Mass/Vol] 0.80 ng/dL 0.61-1.12 [facility] Triglyceride [Mass/volume] i n Serum or PlasmaOrdered By: Rufina Ruiz on 07-20-2022 Triglyceride [Mass/Vol] 132 mg/dL 35-[address] [facility] Comment on above: TRIG ATP III CLASSIF ICATIONTRIG less than 150 mg/dL NormalTRIG 150-199 mg/dL Borderline highTRIG 200-500 mg/dL High TRIG greater than 500 mg/dL Very highStandard traceable to the Center for Disease Conrtrol and Prevention (CDC) test method. Urine culture routineOrdered By: Rufina Ruiz on 07-20-2022 Bacteria identified Cx Nom (U) Escherichia coli [facility] Bacteria identified Cx Nom (U) Escherichia coli [facility] WBC Auto (Bld) [#/Vol]Ordere d By: Rufina Ruiz on 07-20-2022 WBC (Bld) [#/Vol] 8.5 10*3/uL 3.8-11.6 [facility] CBC AUTO DIFFon 06-24-2022 BASO # 0.0 103/ul Normal 0.0-0.1 [facility] Comment on above: Performed By: #### C BC #### [facility] [address] [place] [address] Dr. Ruthie Pan Basophils/100 WBC (Bld) 0.5 % Normal 0.2-2.0 [facility] Comment on above: Performed By: #### C BC #### [facility] [address] [place] [address] Dr. Ruthie Pan EO # 0.1 103/ul Normal 0.0-0.7 [facility] Comment on above: Performed By: #### C BC #### [facility] [address] [place] [address] Dr. Ruthie Pan Eosinophils/100 WBC (Bld) 1.6 % Normal 0.9-7.0 [facility] Comment on above: Performed By: #### C BC #### [facility] [address] [place] [address] Dr. Ruthie Pan Erythrocyte distribution width (RBC) [Ratio] 13.2 % Normal 11.0-15.0 [facility] Comment on above: Performed By: #### C BC #### [facility] [address] [place] [address] Dr. Ruthie Pan Hematocrit (Bld) [Volume fraction] 41.5 % Normal 36.0-48.0 [facility] Comment on above: Performed By: #### C BC #### [facility] [address] [place] [address] Dr. Ruthie Pan Hemoglobin (Bld) [Mass/Vol] 13.9 g/dL Normal 12.0-16.0 [facility] Comment on above: Performed By: #### C BC #### [facility] [address] [place] [address] Dr. Ruthie Pan IG # 0.02 10e3/ul Normal 0.00-0.03 [facility] Comment on above: Performed By: #### C BC #### [facility] [address] [place] [address] Dr. Ruthie Pan IG % 0.2 % Normal 0.0-0.5 [facility] Comment on above: Performed By: #### C BC #### [facility] [address] [place] [address] Dr. Ruthie Pan LYMPH # 2.5 103/ul Normal 1.2-3.8 [facility] Comment on above: Performed By: #### C BC #### [facility] [address] [place] [address] Dr. Ruthie Pan Lymphocytes/100 WBC (Bld) 28.8 % Normal 20.5-60.0 [facility] Comment on above: Performed By: #### C BC #### [facility] [address] [place] [address] Dr. Ruthie Pan MANUAL DIFF REQ NO Normal [facility] Comment on above: Performed By: #### C BC #### [facility] [address] [place] [address] Dr. Ruthie Pan MCH (RBC) [Entitic mass] 30.3 pg Normal 26.7-34.0 [facility] Comment on above: Performed By: #### C BC #### [facility] [address] [place] [address] Dr. Ruthie Pan MCHC (RBC) [Mass/Vol] 33.5 g/dL Normal 29.9-35.2 [facility] Comment on above: Performed By: #### C BC #### [facility] [address] [place] [address] Dr. Ruthie Pan MCV (RBC) [Entitic vol] 90.6 fL Normal 81.0-99.0 [facility] Comment on above: Performed By: #### C BC #### [facility] [address] [place] [address] Dr. Ruthie Pan MONO # 0.6 103/ul Normal 0.3-0.8 [facility] Comment on above: Performed By: #### C BC #### [facility] [address] [place] [address] Dr. Ruthie Pan Monocytes/100 WBC (Bld) 6.4 % Normal 1.7-12.0 [facility] Comment on above: Performed By: #### C BC #### [facility] [address] [place] [address] Dr. Ruthie Pan NEUT # 5.5 103/ul Normal 1.4-6.5 [facility] Comment on above: Performed By: #### C BC #### [facility] [address] [place] [address] Dr. Ruthie Pan Neutrophils/100 WBC (Bld) 62.5 % Normal 43.0-75.0 [facility] Comment on above: Performed By: #### C BC #### [facility] [address] [place] [address] Dr. Ruthie Pan Platelet mean volume (Bld) [Entitic vol] 11.1 fL Normal 9.5-13.5 [facility] Comment on above: Performed By: #### C BC #### [facility] [address] [place] [address] Dr. Ruthie Pan PLT 150 103/ul Normal 150-450 [facility] Comment on above: Performed By: #### C BC #### [facility] [address] [place] [address] Dr. Ruthie Pan RBC 4.58 106/ul Normal 4.20-5.40 [facility] Comment on above: Performed By: #### C BC #### [facility] [address] [address] [address] Ruthie Pan WBC 8.8 103/ul Normal 4.0-11.0 [facility] Comment on above: Performed By: #### C BC #### [facility] [id number] Ruthie [facility]11 SARS-CoV-2 (COVID-19) RNA MICHAEL+probe Ql (Unsp spec) Not detected Normal NOT DETECTED [facility] Comment on above: Result Comment: This test is not yet approved or cleared by the [place] FDA. When there are no FDA-approved or cleared tests available, and other criteria are met, FDA can make tests available under an emergency access mechanism called an Emergency Use Authorization (EUA). The EUA for this test is supported by the Branch Administrator of Health and Human Service's (HHS's) declaration [...] with SARS-CoV-2. Performed By: #### C VDTBH ####[facility] [address] [place] [address]DrGideon Pan INFLUENZA A AND B AGon 06-24 INFLUANEGH SEE BELOW Normal [facility] Comment on above: Result Comment: Nega tive for Flu A protein angiten. Infection due to Flu A cannot be ruled out. Flu A angiten in the sample may be below the detection limit of the test. Performed By: #### I NFLUAB ####[facility] [address] [place] [address]Dr. Ruthie Pan INFLUBNEGH SEE BELOW Normal [facility] Comment on above: Result Comment: Nega tive for Flu B protein antigen. Infection due to Flu B cannot be ruled out. Flu B antigen in the sample may be below the detection limit of the test. Performed By: #### I NFLUAB ####[facility] [address] [place] [address]Dr. Ruthie Pan INFLUENZA A AG Negative Normal NEGATIVE SEE COMMENT [facility] Comment on above: Performed By: #### I NFLUAB ####[facility] [address] [place] [address]Dr. Ruthie Pan INFLUENZA B AG Negative Normal NEGATIVE SEE COMMENT [facility] Comment on above: Performed By: #### I NFLUAB ####[facility] [address] [place], [place] [address]Dr. Ruthie Pan INTERNAL CONTROLS Within Normal Limits Normal Wi thin Normal Limits [facility] Comment on above: Performed By: #### I NFLUAB ####[facility] [address] [place], [place] [address]Dr. Ruthie Pan PROF 14(COMP METB)on 06-24- 022 Albumin [Mass/Vol] 3.7 g/dL Normal 3.4-5.0 [facility] Comment on above: Performed By: #### C MP ####[facility] [address] [place], [place] [address]Dr. Ruthie Pan Albumin/Globulin [Mass ratio] 1.1 {ratio} Normal [facility] Comment on above: Performed By: #### C MP ####[facility] [address] [place] [address]Dr. Ruthie Pan ALP [Catalytic activity/Vol] 125 U/L Critically high 46-116 [facility] Comment on above: Performed By: #### C MP ####[facility] [address] [place] [address]Dr. Ruthie Pan ALT [Catalytic activity/Vol] 17 U/L Normal 14-59 [facility] Comment on above: Performed By: #### C MP ####[facility] [address] [id number]. Ruthie Pan Anion gap [Moles/Vol] 9.8 mmol/L Normal [facility] Comment on above: Performed By: #### C MP ####[facility] [address] [place] [address]Dr. Ruthie Pan AST [Catalytic activity/Vol] 16 U/L Normal 15-37 [facility] Comment on above: Performed By: #### C MP ####[facility] [address] [place] [address]Dr. Ruthie Pan Bilirubin [Mass/Vol] 0.3 mg/dL Normal 0.2-1.0 [facility] Comment on above: Performed By: #### C MP ####[facility] [address] [place], [place] [address]Dr. Ruthie Pan Calcium [Mass/Vol] 8.7 mg/dL Normal 8.5-10.1 [facility] Comment on above: Performed By: #### C MP ####[facility] [address] [place], [place] [address]Dr. Ruthie Pan Chloride [Moles/Vol] 103 mmol/L Normal 98-107 [facility] Comment on above: Performed By: #### C MP ####[facility] [address] [place], [place] [address]Dr. Ruthie Pan CO2 [Moles/Vol] 28.3 mmol/L Normal 21.0-32.0 [facility] Comment on above: Performed By: #### C MP ####[facility] [address] [place], [place] [address]Dr. Ruthie Pan Creatinine [Mass/Vol] 0.62 mg/dL Normal 0.55-1.02 [facility] Comment on above: Performed By: #### C MP ####[facility] [address] [place], [place] [address]Dr. Ruthie Pan EGFR-AF BURUNDIAN >60 Normal >=60 [facility] Comment on above: Performed By: #### C MP ####[facility] [address] [place], [place] [address]Dr. Ruthie Pan EGFR-NON AF BURUNDIAN >60 Normal >=60 [facility] Comment on above: Performed By: #### C MP ####[facility] [address] [place] [address]Dr. Ruthie Pan Globulin (S) [Mass/Vol] 3.4 g/dL Normal T [facility] Comment on above: Performed By: #### C MP ####[facility] [address] [place] [address]Dr. Ruthie Pan Glucose [Mass/Vol] 103 mg/dL Normal 74-106 [facility] Comment on above: Performed By: #### C MP ####[facility] [address] [place] [address]Dr. Ruthie Pan Potassium [Moles/Vol] 3.1 mmol/L Critically low 3.5-5.1 [facility] Comment on above: Performed By: #### C MP ####[facility] [address] [place] [address]Dr. Ruthie Pan Protein [Mass/Vol] 7.1 g/dL Normal 6.4-8.2 [facility] Comment on above: Performed By: #### C MP ####[facility] [address] [place] [address]Dr. Ruthie Pan Sodium [Moles/Vol] 140 mmol/L Normal 136-145 [facility] Comment on above: Performed By: #### C MP ####[facility] [address] [place] [address]Dr. Ruthie Pan Urea nitrogen [Mass/Vol] 6.0 mg/dL Critically low 7.0-18.0 [facility] Comment on above: Performed By: #### C MP ####[facility] [address] [place] [address]Dr. Ruthie Pan Urea nitrogen/Creatinine [Mass ratio] 9.7 mg/mg Normal [facility] Comment on above: Performed By: #### C MP ####[facility] [address] [place] [address]DrGideon Pan Urine culture routineOrdered By: Rufina Ruiz on 06-09-2022 Bacteria identified Cx Nom (U) Escherichia coli [facility] Urine culture routineOrdered By: Rufina Ruiz on 04-16-2022 Bacteria identified Cx Nom (U) Escherichia coli [facility] AMYLASEon 11-24-2021 Amylase [Catalytic activity/Vol] 85 U/L Normal 25-115 [facility] Comment on above: Performed By: #### C MP, ROSALIA, LIPA #### [facility] [address] [address] [address] Ruthie Pan CBC AUTO DIFFon 11-24-2021 BASO # 0.0 103/ul Normal 0.0-0.1 [facility] Comment on above: Performed By: #### C BC ####[facility] [address] [address]DrGideon Pan Basophils/100 WBC (Bld) 0.4 % Normal 0.2-2.0 [facility] Comment on above: Performed By: #### C BC ####[facility] [address] [address]DrGideon Pan EO # 0.2 103/ul Normal 0.0-0.7 [facility] Comment on above: Performed By: #### C BC ####[facility] [address] [id number]. Ruthie Pan Eosinophils/100 WBC (Bld) 1.6 % Normal 0.9-7.0 [facility] Comment on above: Performed By: #### C BC ####[facility] [address] [id number] Pan Erythrocyte distribution width (RBC) [Ratio] 13.8 % Normal 11.0-15.0 [facility] Comment on above: Performed By: #### C BC ####[facility] [address] [id number] Pan Hematocrit (Bld) [Volume fraction] 38.5 % Normal 36.0-48.0 [facility] Comment on above: Performed By: #### C BC ####[facility] [address] [id number]. Ruthie Pan Hemoglobin (Bld) [Mass/Vol] 12.3 g/dL Normal 12.0-16.0 [facility] Comment on above: Performed By: #### C BC ####[facility] [address] [id number]. Ruthie Pan IG # 0.04 10e3/ul Critically high 0.00-0.03 [facility] Comment on above: Performed By: #### C BC ####[facility] [address] [place], [place] [address]Dr. Ruthie Pan IG % 0.4 % Normal 0.0-0.5 [facility] Comment on above: Performed By: #### C BC ####[facility] [address] [place], [place] [address]Dr. Ruthie Pan LYMPH # 3.4 103/ul Normal 1.2-3.8 [facility] Comment on above: Performed By: #### C BC ####[facility] [address] [place], [place] [address]Dr. Ruthie Pan Lymphocytes/100 WBC (Bld) 31.2 % Normal 20.5-60.0 [facility] Comment on above: Performed By: #### C BC ####[facility] [address] [place], [place] [address]Dr. Ruthie Pan MANUAL DIFF REQ NO Normal [facility] Comment on above: Performed By: #### C BC ####[facility] [address] [place], [place] [address]Dr. Ruthie Pan MCH (RBC) [Entitic mass] 31.1 pg Normal 26.7-34.0 [facility] Comment on above: Performed By: #### C BC ####[facility] [address] [place], [place] [address]Dr. Ruthie Pan MCHC (RBC) [Mass/Vol] 31.9 g/dL Normal 29.9-35.2 [facility] Comment on above: Performed By: #### C BC ####[facility] [address] [id number]. Ruthie Pan MCV (RBC) [Entitic vol] 97.5 fL Normal 81.0-99.0 [facility] Comment on above: Performed By: #### C BC ####[facility] [address] [id number]. Ruthie Pan MONO # 0.9 103/ul Critically high 0.3-0.8 [facility] Comment on above: Performed By: #### C BC ####[facility] [address] [id number]. Ruthie Pan Monocytes/100 WBC (Bld) 8.0 % Normal 1.7-12.0 [facility] Comment on above: Performed By: #### C BC ####[facility] [address] [place], [place] [address]Dr. Ruthie Pan NEUT # 6.4 103/ul Normal 1.4-6.5 [facility] Comment on above: Performed By: #### C BC ####[facility] [address] [place], [place] [address]Dr. Ruthie Pan Neutrophils/100 WBC (Bld) 58.4 % Normal 43.0-75.0 [facility] Comment on above: Performed By: #### C BC ####[facility] [address] [place], [place] [address]Dr. Ruthie Pan Platelet mean volume (Bld) [Entitic vol] 10.7 fL Normal 9.5-13.5 [facility] Comment on above: Performed By: #### C BC ####[facility] [address] [id number]. Ruthie Pan PLT 207 103/ul Normal 150-450 [facility] Comment on above: Performed By: #### C BC ####[facility] [address] [address]Dr. Ruthie Pan RBC 3.95 106/ul Critically low 4.20-5.40 [facility] Comment on above: Performed By: #### C BC ####[facility] [address] [place], [place] [address]UvGideon Pan WBC 11.0 103/ul Normal 4.0-11.0 [facility] Comment on above: Performed By: #### C BC ####[facility] [address] [place], [place] [address]. Ruth[address] Pan CT ABD/PELV W CONon 11-25-19 [...] by: LUDIN ANGELES Date: 2021-11-24 03:59 Normal [facility] LACTATE/LACTIC ACIDon 2021 Lactate [Moles/Vol] 1.0 mmol/L Normal 0.4-1.9 [facility] Comment on above: Performed By: #### L ACT #### [facility] [address] [address] [address] Ruthie Pan LIPASEon 11-24-2021 Lipase [Catalytic activity/Vol] 123.0 U/L Normal 73.0-393.0 [facility] Comment on above: Performed By: #### C MP, ROSALIA, LIPA #### [facility] [address] [address] [address] Ruthie Pan PROF 14(COMP METB)on 022 Albumin [Mass/Vol] 3.3 g/dL Critically low 3.4-5.0 [facility] Comment on above: Performed By: #### C MP, ROSALIA, LIPA #### [facility] [address] [address] [address] Ruthie Pan Albumin/Globulin [Mass ratio] 1.1 {ratio} Normal [facility] Comment on above: Performed By: #### C MP, ROSALIA, LIPA #### [facility] [address] [place] [address] Dr. Ruthie Pan ALP [Catalytic activity/Vol] 139 U/L Critically high 46-116 [facility] Comment on above: Performed By: #### C MP, ROSALIA, LIPA #### [facility] [address] [place] [address] Dr. Ruthie Pan ALT [Catalytic activity/Vol] 17 U/L Normal 14-59 [facility] Comment on above: Performed By: #### C MP, ROSALIA, LIPA #### [facility] [address] [place] [address] Dr. Ruthie Pan Anion gap [Moles/Vol] 10.5 mmol/L Normal [facility] Comment on above: Performed By: #### C MP, ROSALIA, LIPA #### [facility] [address] [place] [address] Dr. Ruthie Pan AST [Catalytic activity/Vol] 14 U/L Critically low 15-37 [facility] Comment on above: Performed By: #### C MP, ROSALIA, LIPA #### [facility] [address] [place] [address] Dr. Ruthie Pan Bilirubin [Mass/Vol] 0.2 mg/dL Normal 0.2-1.0 [facility] Comment on above: Performed By: #### C MP, ROSALIA, LIPA #### [facility] [address] [place] [address] Dr. Ruthie Pan Calcium [Mass/Vol] 8.3 mg/dL Critically low 8.5-10.1 [facility] Comment on above: Performed By: #### C MP, ROSALIA, LIPA #### [facility] [address] [place] [address] Dr. Ruthie Pan Chloride [Moles/Vol] 103 mmol/L Normal 98-107 [facility] Comment on above: Performed By: #### C ROSALIA INFANTE LIPA #### [facility] [address] [address] [address] Ruthie Pan CO2 [Moles/Vol] 27.9 mmol/L Normal 21.0-32.0 [facility] Comment on above: Performed By: #### C ROSALIA INFANTE LIPA #### [facility] [address] [address] [address] Ruthie Pan Creatinine [Mass/Vol] 0.71 mg/dL Normal 0.55-1.02 [facility] Comment on above: Performed By: #### C ROSALIA INFANTE LIPA #### [facility] [address] [place] [address] Dr. Ruthie Pan EGFR-AF BURUNDIAN >60 Normal >=60 [facility] Comment on above: Performed By: #### C ROSALIA INFANTE LIPA #### [facility] [address] [place] [address] Dr. Ruthie Pan EGFR-NON AF BURUNDIAN >60 Normal >=60 [facility] Comment on above: Performed By: #### C ROSALIA INFANTE LIPA #### [facility] [address] [address] [address] Ruthie Pan Globulin (S) [Mass/Vol] 3.1 g/dL Normal [facility] Comment on above: Performed By: #### C ROSALIA INFANTE LIPA #### [facility] [address] [address] [address] Ruthie Pan Glucose [Mass/Vol] 113 mg/dL Critically high 74-106 [facility] Comment on above: Performed By: #### C ROSALIA INFANTE LIPA #### [facility] [address] [address] [address] Ruthie Pan Potassium [Moles/Vol] 3.4 mmol/L Critically low 3.5-5.1 [facility] Comment on above: Performed By: #### C ROSALIA INFANTE LIPA #### [facility] [address] [address] [address] Ruthie Pan Protein [Mass/Vol] 6.4 g/dL Normal 6.4-8.2 [facility] Comment on above: Performed By: #### C ROSALIA INAFNTE, LIPA #### [facility] [address] [place], [place] [address] Dr. Ruthie Pan Sodium [Moles/Vol] 138 mmol/L Normal 136-145 [facility] Comment on above: Performed By: #### C ROSALIA INFANTE, LIPA #### [facility] [address] [address] [address] Ruthie Pan Urea nitrogen [Mass/Vol] 10.0 mg/dL Normal 7.0-18.0 [facility] Comment on above: Performed By: #### C ROSALIA INFANTE, LIPA #### [facility] [address] [place] [address] Dr. Ruthie Pan Urea nitrogen/Creatinine [Mass ratio] 14.1 mg/mg Normal [facility] Comment on above: Performed By: #### C ROSALIA INFANTE, LIPA #### [facility] [address] [place] [address] Dr. Ruthie Pan US SINGLE QUAD RT [...] MILE BENITEZ Date: 2021-11-24 07:56 Normal [facility] XR SHOULDER RT 2V or [...] by: Austin VENTURA Date: 2021-11-21 02:37 Normal [facility] Vital Signs Date Time Vital Sign Value Performing Clinician Facility 05-04-2024 14:14-0400 Diastolic blood pressure 78 mm[Hg] Michael [facility] with [facility] 05-04-2024 14:14-0400 Heart rate 66 /min [facility] 05-04-2024 14:14-0400 Mean blood pressure 91 mm[Hg] [facility] 05-04-2024 14:14-0400 Systolic blood pressure 118 mm[Hg] [facility] 05-04-2024 14:14-0400 Respiratory rate 18 /min [facility] 05-04-2024 14:14-0400 Heart rate 70 /min [facility] 05-04-2024 14:14-0400 SaO2% (BldA) [Mass fraction] 100 % [facility] 05-04-2024 14:14-0400 Diastolic blood pressure 62 mm[Hg] [facility] 05-04-2024 14:14-0400 Mean blood pressure 77 mm[Hg] Michael Torres [facility] 05-04-2024 14:14-0400 Systolic blood pressure 108 mm[Hg] Michael Torres [facility] 05-04-2024 13:28-0400 Body height 157.5 cm Michael Torres DO Work Phone: [facility] 05-04-2024 13:28-0400 Body mass index (BMI) [Ratio] 22.68 kg/m2 Michael Torres DO Work Phone: [facility] 05-04-2024 13:28-0400 Body temperature 97.39 [degF] Michael Torres DO Work Phone: [facility] 05-04-2024 13:28-0400 Body weight 56.25 kg Michael Torres DO Work Phone: [facility] 07-23-2022 00:20-0500 Diastolic blood pressure 65 mm[Hg] Services [employer] [facility] Work Phone: [facility] 07-23-2022 00:20-0500 Heart rate 89 /min [facility] [employer] Work Phone: [facility] 07-23-2022 00:20-0500 Respiratory rate 18 /min [facility] [employer] Work Phone: [facility] 07-23-2022 00:20-0500 SaO2% (BldA) [Mass fraction] 99 % [facility] Work Phone: [facility] 07-23-2022 00:20-0500 Systolic blood pressure 103 mm[Hg] Services [employer] [facility] Work Phone: [facility] 07-22-2022 19:43-0500 Body height 154.94 cm [facility] [employer] Work Phone: [facility] 07-22-2022 19:43-0500 Body temperature 98.4 [degF] Services [employer] [facility] Work Phone: [facility] 07-22-2022 19:43-0500 Body weight 64 kg Services [facility] Work Phone: [facility] 11-23-2021 23:23-0400 Body temperature 98.06 [degF] Venancio Ernesto [facility] 11-23-2021 23:23-0400 Diastolic blood pressure 63 mm[Hg] Venancio Ernesto [facility] 11-23-2021 23:23-0400 Heart rate 81 /min Venancio Ernesto [facility] 11-23-2021 23:23-0400 Respiratory rate 16 /min Venancio Ernesto [facility] 11-23-2021 23:23-0400 SaO2% (BldA) [Mass fraction] 97 % Venancio Ernesto [facility] 11-23-2021 23:23-0400 Systolic blood pressure 102 mm[Hg] Venancio Ernesto [facility] Encounters Encounter Date Encounter Type Care Provider Facility Start: 05-04-2024 End: 05-04-2024 Patient encounter procedure Michael Torres [facility] Comment on above: 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 Start: 02-02-2024 Encounter for gynecological examination (general) (routine) without abnormal findings Rufina Ruiz [facility] Start: 01-31-2024 End: 01-31-2024 ambulatory MARICRUZ ARREOLA Not Available Start: 01-25-2024 End: 01-25-2024 ambulatory MICHAEL TORRES Not Available Start: 09-28-2023 End: 09-28-2023 ambulatory Services [facility] Work Phone: [facility] Work Phone: Start: 09-28-2023 End: 09-28-2023 Departed Referred Services [facility] Work Phone: [facility] Start: 08-26-2023 Chart abstracting Damain davis DPM Work Phone: [facility] Start: 06-29-2023 End: 06-29-2023 ambulatory Pepe Guerra [facility] Work Phone: Start: 06-29-2023 End: 06-29-2023 Departed Referred DPM Damian Jovel Work Phone: [facility] Start: 05-26-2023 End: 05-26-2023 Departed Referred PATIENT SERVICE COORDINATOR-C Rufina Ruiz Work Phone: [facility] [place] Work Phone: Start: 05-26-2023 End: 05-26-2023 ambulatory Damian Jovel [facility] Work Phone: Start: 03-19-2023 End: 03-19-2023 ambulatory Rufina Ruiz [facility] Work Phone: Start: 03-19-2023 End: 03-19-2023 Departed Referred PATIENT SERVICE COORDINATOR-C Rufina Ruiz Work Phone: [facility] Start: 12-08-2022 End: 12-08-2022 Patient encounter procedure Adam Arrington DRE [facility] [place] Start: 11-16-2022 End: 11-16-2022 ambulatory PATIENT SERVICE COORDINATOR-C Rufina Ruiz Work Phone: [facility] Work Phone: Start: 11-16-2022 End: 11-16-2022 Departed Referred PATIENT SERVICE COORDINATOR-C Rufina Ruiz Work Phone: [facility] [place] Work Phone: Start: 10-04-2022 End: 10-04-2022 ambulatory [facility] Start: 09-21-2022 End: 09-21-2022 ambulatory NON STAFF [facility] Work Phone: Start: 09-21-2022 End: 09-21-2022 Departed Referred PATIENT SERVICE COORDINATOR-C Rufina Ruiz Work Phone: [facility] Start: 08-31-2022 End: 08-31-2022 Departed Referred PATIENT SERVICE COORDINATOR-C Rufina Ruiz Work Phone: [facility] Start: 07-22-2022 End: 07-23-2022 Emergency department patient visit Services [facility] Work Phone: [facility] Work Phone: Start: 07-21-2022 End: 07-21-2022 ambulatory [facility] Facility:[facility] Start: 07-20-2022 End: 07-20-2022 ambulatory PATIENT SERVICE COORDINATOR-C Rufina Ruiz Work Phone: [facility] Work Phone: Start: 07-20-2022 End: 07-20-2022 Departed Referred PATIENT SERVICE COORDINATOR-C Rufina Ruiz Work Phone: [facility] Start: 06-24-2022 End: 06-24-2022 ambulatory [facility] Facility:[facility] Start: 06-09-2022 End: 06-09-2022 ambulatory [facility] Work Phone: [facility] Work Phone: Start: 06-09-2022 End: 06-09-2022 Departed Referred Services [facility] Work Phone: [facility] Start: 04-14-2022 End: 04-14-2022 ambulatory Services [facility] Work Phone: [facility] Work Phone: Start: 04-14-2022 End: 04-14-2022 Departed Referred Services Family [facility] Work Phone: [facility] Start: 04-08-2022 End: 04-09-2022 ambulatory [facility] Facility:[facility] Start: 11-24-2021 End: 11-24-2021 ambulatory [facility] Facility:[facility] Start: 11-23-2021 End: 11-24-2021 Emergency department patient visit Venancio Orozco [facility] Start: 11-21-2021 End: 11-21-2021 ambulatory [facility] Facility:[facility] Start: 11-06-2021 End: 11-06-2021 ambulatory [facility] Facility:[facility] Procedures Date Procedure Procedure Detail Performing Clinician Start: 05-26-2023 Aerobic microbial culture DPM Damian Jovel Work Phone: Start: 08-31-2022 Urine culture PATIENT SERVICE COORDINATOR-C Larissa Ruiz Work Phone: Start: 07-22-2022 Computed tomography of abdomen and pelvis with contrast PATIENT SERVICE COORDINATOR-C Rufina Ruiz Work Phone: Start: 07-22-2022 US scan of gallbladder PATIENT SERVICE COORDINATOR-C Rufina Ruiz Work Phone: Start: 07-20-2022 Urine culture Services [facility] Work Phone: Start: 06-09-2022 Urine culture PATIENT SERVICE COORDINATOR-Kingsley Ruiz Work Phone: Start: 05-30-2021 Arthroscopy of shoulder Venancio Orozco Urine culture Services [facility] Work Phone: Vaginal hysterectomy Venancio Kamara itjaret Plan of Treatment Date Care Activity Detail Author Start: 05-30-2024 End: 05-30-2024 Patient encounter procedure 05/30/2024 3:15 PM EST Office Visit [facility] [address] [place] [id number] Michael Torres DO [address] [address] [facility] Start: 03-12-2024 Influenza vaccination Influenza Vaccine (#1) [facility] Start: 02-02-2024 [facility] Start: 09-28-2023 Bacteria identified in Urine by Culture Urine Culture [facility] Start: 08-26-2023 End: 08-26-2023 Patient encounter procedure 08/26/2023 9:00 AM EST Procedure Visit [facility] [address] [place] [id number] Damian Jovel DPM [address] [place] [address] [facility] Start: 06-29-2023 Bacteria identified in Urine by Culture [facility] Start: 05-26-2023 Superficial Wound Culture Superficial Wound Culture [facility] Start: 07-22-2022 Computed tomography of abdomen and pelvis with contrast CT abdomen pelvis w con [facility] Start: 07-22-2022 CT Abdomen and Pelvis W contrast IV [facility] Start: 07-22-2022 US Gallbladder [facility] Start: 07-22-2022 US scan of gallbladder US gall bladder [facility] Start: 07-20-2022 Bacteria identified in Urine by Culture Urine Culture [facility] Start: 2017 Screening for malignant neoplasm of breast Mammogram [facility] Start: 10-13-2007 Screening for malignant neoplasm of cervix [facility] Start: 1998 Screening for malignant neoplasm of cervix Pap Smear [facility] Start: 1977 Screening for malignant neoplasm of colon [facility] Atopobium vaginae DN A [Presence] in Vaginal fluid by MICHAEL with probe detection [facility] Bacteria identified in Urine by Culture [facility] Bacterial vaginosis associated bacterium 2 DNA [Presence] in Vaginal fluid by MICHAEL with probe detection [facility] Chlamydia trachomati s rRNA [Presence] in Cervix by MICHAEL with probe detection [facility] Human papilloma viru s 16+18+31+33+35+39+45+51+5 2+56+58+59+66+68 DNA [Presence] in Cervix by Probe with signal amplification [facility] Human papilloma viru s 16+18+31+33+35+39+45+51+5 2+56+58+59+68 DNA [Presence] in Cervix by Probe with signal amplification [facility] Megasphaera sp type 1 DNA [Presence] in Vaginal fluid by MICHAEL with probe detection [facility] Neisseria gonorrhoea e rRNA [Presence] in Cervix by MICHAEL with probe detection [facility] Patient Education Abdominal Pain , Adult ED [facility] Work Phone: Patient referral [facility] Work Phone: Payers Date Payer Category Payer Self-pay [id number] 2023 Unknown [id number] 2023 Medicaid [id number] 1977 Unknown [id number] 2.16.840.1.895411.3.579.2. 593 1977 Unknown [id number] 2.16.840.1.494405.3.579.2. 593 1977 Unknown [id number] 2.16.840.1.345674.3.579.2. 593 1977 Unknown [id number] 2.16840.1.678745.3.579.2. 59 1977 Unknown [id number] 2.840.1.788359.3.579.2. 59 1977 Unknown [id number] 2.840.1.482887.3.579.2. 59 1977 Unknown [id number] 2.840.1.172551.3.579.2. 59 1977 Unknown [id number] 2.840.1.052254.3.579.2. 1258 1977 Unknown [id number] 2.840.1.524010.3.579.2. 1258 1977 Unknown [id number] 2.840.1.734353.3.579.2. 1258 1977 Unknown [id number] 2.840.1.922368.3.579.2. 1258 1977 Unknown [id number] 2.840.1.949596.3.579.2. 1258 1977 Unknown [id number] 2.840.1.588502.3.579.2. 1258 1977 Unknown [id number] 2.16840.1.660448.3.579.2. 1258 1977 Unknown [id number] 2.16840.1.793140.3.579.2. 1258 1977 Unknown [id number] 2.16840.1.907733.3.579.2. 727 1959 Medicaid [id number] 1957 Medicaid [id number] Private Health Insurance [facility] [id number] Unknown [id number] 2.16.840.1.067238.3.579.2. 531 Unknown [id number] 2.16.840.1.210220.3.579.2. 531 Unknown [id number] 2.16.840.1.694560.3.579.2. 531 Unknown [id number] 2.16.840.1.409973.3.579.2. 531 Unknown [id number] 2.16.840.1.609571.3.579.2. 531 Social History Date Type Detail Facility Start: 11-11-2020 End: 10-27-2022 Tobacco smoking status Heavy tobacco smoker (finding) [facility] Start: 05-26-2023 End: 05-04-2024 Sex Assigned At Female [facility] Start: 12-16-2020 End: 07-22-2022 Tobacco smoking status NHIS Smoker (finding) [facility] Start: 1977 Sex Assigned At Female [facility] Tobacco smoking status Never [facility] [place] Start: 07-12-1994 End: 01-25-2024 Tobacco smoking status NHIS Smokes tobacco daily [facility] Start: 07-12-1994 History of tobacco use Cigarette Smoker [facility] Start: 08-19-2023 End: 05-04-2024 Cigarettes smoked current (pack per day) - Reported 0.5 [facility] Start: 08-19-2023 Alcohol intake Not Asked [facility] Start: 05-25-2023 Tobacco Comment Smokes 6-10 cigs/day. [facility] Start: 05-25-2023 Alcohol Comment caffeine intake: 2-3 cups per day. [facility] Start: 05-25-2023 Gender identity Identifies as female gender (finding) [facility] Start: 05-25-2023 Sexual orientation Heterosexual (finding) [facility] Start: 01-25-2024 Tobacco use and exposure Smokeless tobacco non-user [facility] Start: 05-04-2024 Alcoholic beverage intake Ex-drinker (finding) [facility] Procedure Code Equipment Code Equipment Origin al Text Equipment Identifier Dates FDA Start: 05-30-2021 SHOULDER ARTHROS COPY W/ POSSIBLE REPAIR Michael Torres DO Alistair 05/30/21 Non Biological Shoulder R FDA Start: 05-30-2021 SHOULDER ARTHROS COPY W/ POSSIBLE REPAIR Michael Torres DO [place] 05/30/21 Non Biological Shoulder R FDA Start: 05-30-2021 Functional Status Date Assessment Result Facility 05-04-2024 Functional Status No [facility] History of Present illness Narrative 05-04-2024 Michael Torres DO - 05/04/2024 1:30 PM EDT Note Date & Type Note Facility 05-04-2024 History of Presen t illness Narrative Images from the original note were not included. @ENCDATE@ Archana Joy is a 48 y.o. female who presents for No chief complaint on file. HPI: History of Present Illness The patient is a 48-year-old [id number] female here to discuss moving forward with surgery on her right shoulder. She has a history of a right shoulder arthroscopy, subacromial decompression, distal clavicle excision, mini open biceps tenodesis 05/30/2021. She recently underwent a procedure to remove her toenail. She is now considering surgery for her right shoulder. SUBJECTIVE: MEDICATIONS: Current Outpatient Medications Medication Instructions albuterol (2.5 MG/3ML) 0.083% nebulizer solution albuterol HFA 90 mcg/act inhaler ciclopirox (Penlac) 8 % solution cyanocobalamin (Vitamin B-12) 1000 MCG tablet famotidine (PEPCID) 20 mg, Oral, Daily FLUoxetine (PROzac) 40 MG capsule fluticasone-salmeterol (Advair HFA) 45-21 MCG/ACT inhaler Advair HFA folic acid (Folvite) 1 MG tablet LORazepam (Ativan) 0.5 MG tablet Every 24 hours montelukast (Singulair) 10 MG tablet Every 24 hours OLANZapine (ZyPREXA) 15 MG tablet omeprazole (PriLOSEC) [address] capsule Every 24 hours potassium chloride ER (Micro-K) 10 MEQ ER capsule rOPINIRole (Requip) 1 MG tablet tiZANidine (Zanaflex) 2 MG tablet traMADol (Ultram) 50 MG tablet ALLERGIES: Allergies Allergen Reactions Aspirin Other Reaction(s): rash, Unknown, vomiting Haloperidol Other Reaction(s): anaphylaxis, jaw locked sideways, Unknown Hydroxyzine Other Reaction(s): rash, vomiting, Unknown, vomiting Ketorolac Other Reaction(s): Unknown Ketorolac Tromethamine Other Reaction(s): hives, migraines Magnesium Salicylate Other Magnesium Sulfate Other Reaction(s): Unknown, vomiting Metoclopramide Other Reaction(s): rash Metronidazole Other Reaction(s): rash, vomiting Naproxen Other Other Reaction(s): rash, Unknown, vomiting Nsaids Other Other Reaction(s): rash, Unknown, vomiting Penicillins Other Reaction(s): Unknown Sulfa Antibiotics Other Reaction(s): Unknown Sulfamethoxazole-Trimethoprim Other Reaction(s): vomiting Sulfur Trimethoprim Other Reaction(s): Hives SURGICAL HISTORY: Past Surgical History: Procedure Laterality Date SECTION, LOW TRANSVERSE HYSTERECTOMY Total laparascopic hysterectomy; adenoma/dysplasia disease THYROIDECTOMY, PARTIAL TOTAL SHOULDER ARTHROPLASTY 2020 TUBAL LIGATION Bilateral FAMILY HISTORY: Family History Problem Relation Name Age of Onset Cervical cancer Mother Diabetes Paternal Grandmother Mozell Cancer Paternal Grandmother [facility] [place] Paternal Grandfather SOCIAL HISTORY: Social History Tobacco Use Smoking status: Every Day Current packs/day: 0.50 Average packs/day: 0.5 packs/day for 29.8 years (14.9 ttl pk-yrs) Types: Cigarettes Start date: 07/12/1994 Smokeless tobacco: Never Tobacco comments: Smokes 6-10 cigs/day. Substance Use Topics Alcohol use: Not Currently Comment: caffeine intake: 2-3 cups per day. Drug use: Not Currently Depression: Not on file REVIEW OF SYMPTOMS: Review of Systems The review of systems, history and current medications list are all reviewed today. OBJECTIVE: Visit Vitals OB Status Unknown Smoking Status Every Day Physical Exam Ambulating independently. Gait is nonantalgic. Alert and oriented, no acute distress. Mood and affect are appropriate. RIGHT SHOULDER Passive forward elevation at the right shoulder is to 160 degrees but this reproduces pain. Abduction is 90 degrees, external rotation with the arm abducted is 90 degrees. There is good strength with forward flexion, mild weakness with external rotation. No external rotation lag. Negative belly press. No donna deformity. Good strength with resisted supination. Positive tenderness over the AC joint. Positive cross arm adduction. Positive Whipple. Portals and axillary incision well healed. LEFT SHOULDER The skin is warm, dry, and intact. There is no swelling, atrophy, or deformity. The patient can raise the arm overhead. Full forward elevation, abduction, internal and external rotation. No weakness with internal and external rotation, resisted supination, or forward flexion. Negative Halfway's. Negative Neer/Stone impingement. No tenderness over the AC joint. Negative cross-arm adduction. Negative Speed's and Yergason's. No instability. HEENT The skull is normocephalic. There is no sign of trauma to the head or neck. Hearing is intact for conversational tones. Eye exam reveals conjugate gaze adequate for walking and transfers. CARDIAC The heart is regular rate and rhythm. RESPIRATORY Chest excursion is symmetric and unlabored with lungs clear. ABDOMEN Soft and non-distended. OSTEOPATHIC AND STRUCTURAL EXAM There is no gross evidence of clinically significant kyphosis, or lordosis, or significant leg length discrepancy in a sitting and standing position. Ortho Exam Results MRI of the shoulder [facility] 04/03/2024 shows a high grade partial thickness tear of the supraspinatus. No cuff atrophy. ASSESSMENT AND PLAN: I reviewed the history, physical exam, diagnostic studies, and diagnosis with the patient. Assessment & Plan 48 yo RHD female rotator cuff tear, right shoulder A detailed discussion was held regarding the surgical procedure, including the associated risks and benefits. The postoperative recovery period was also explained, emphasizing the need for a sling with a pillow and the initiation of therapy after 4 to 6 weeks. The patient will be able to remove the sling while at home for activities such as showering and relaxing. The biceps tendon has already been addressed in a previous surgery, so the focus will be on the rotator cuff repair. The patient will receive a new ice machine for postoperative care. We will proceed with right shoulder arthroscopy rotator cuff repair. I reviewed the risk, benefits, complications, alternatives, and reasonable expectations. These risks include, but are not limited to, the risks of receiving an anesthetic, the risk of infection, the risk of neurovascular injury that could result in permanent disability, the risk of deep vein thrombosis that could result in potentially fatal pulmonary embolism. Any potential complication could require further surgical intervention. The patient acknowledges these risks and electively signed the consent form. At no time were any guarantees implied or stated. We will schedule the procedure at a mutually convenient time. Surgery will be performed under a general anesthetic as well as a regional anesthetic nerve block. I am requesting the nerve block to assist with intraoperative and postoperative pain control. We will utilize tranexamic acid preoperatively to help improve visualization and minimize blood loss. A total of 30 to 39 minutes was spent on this patient encounter which included chart review, check in, nurse triage, history taking, physical examination, diagnostic study review, patient counseling and discussion, entering information into the patient's medical record, and coordinating patient care. There are no diagnoses linked to this encounter. Michael Torres D.O. Attestation This note was created using voice recognition through [employer]. documented in this encounter [facility] Discharge instructions 11-24-2021 Note Date & Type [...] to strengthen the arm. General instructions Take [id number] and prescription medicines only as told by [...] 04/07/2006 Document Revised: 01/10/2019 Document Reviewed: 01/10/2019 [employer] Patient Education 2020 [email or web address]. Follow Up Care 11/23/2021 23:20:28 With:Cande Hinds Address: [address] [place] [address]- Business (1) When:12/01/2021 only if needed [facility] Evaluation + Plan note 11-23-2021 Note Date & Type Note Facility 11-23-2021 Evaluation + Plan note Extrac zakia from: Title:ED Note Author:Venancio Orozco DO Date :11/23/21 Acute pain of right shoulder (M25.511: Pain in right shoulder) Orders: acetaminophen-oxycodone, 1 tab(s), Tab, Oral, Once, Stop date 11/23/21 23:37:00 EDT, STAT, Start date 11/23/21 23:37:00 EDT Sling Apply XR Shoulder Complete Right [facility] Evaluation + Plan note Note Date & Type Note Facility Evaluation + Plan note Future Appointments Appointment Date:05/19/2024 10:30:00 AM Scheduled Provider: Location:[facility] Appointment Type:Surgery FT [facility] Evaluation note Note Date & Type Note Facility Evaluation note No assessment information availa [facility] Work Phone: Evaluation note Note Date & Type Note Facility Evaluation note Diagnosis Traumatic incomplete tear of right rotator cuff, subsequent encounter- Primary documented in this encounter [facility] Healthcare Hospital course Narrative Note Date & Type Note Facility Hospital course Narrative No data available for this section [facility] Hospital Discharge instructions Note Date & Type [...] the other day did show an infection. [facility] Work Phone: Hospital Discharge instructions Note Date & Type Note Facility Hospital Discharge instructions No data available for this section [facility] Progress note Note Date & Type Note Facility Progress note No data available for this section [facility] Chief Complaint and Reason for [...] Bipolar disorder Dys uria;History of kidney stones Chief Complaint Z01.419 Advance Directives Advance Directive Response Recorded Date/ Time Advance Directives No May 2:03am Advance Directive Response Recorded Date/ Time Advance Directives No May 1:03am Summary Purpose Family History Relationship Condition Age at Onset Recorded Date/T [...] Health Family Provider Active ZANE Driscoll Attending Provide r Active Team Status: Active Member Role Status Dates Services Family Health Family Provider Active Team Status: Inactive Member Role Status Dates Services Family [facility] Primary Care Provider, Family P rovider Active Salvador Maier Jr, MD Emergency Provider Active Team Status: Inactive Member Role Status Dates Services Family Health Family Provider Active ZANE Driscoll Attending Provide r Active NON STAFF Primary Care Provider Active Team Status: Inactive Member Role Status Dates Services Family Health Family Provider Active Damian Jovel DPM Attending Provider Active Team Status: Inactive Member Role Status Dates Services Family Health Family Provider Active Brian Wood DO Attending Provider Active Commercial Collections Driver Relationship Specialty Start Date End Date Unallocated, [place] [facility] [place] [address] PCP - General 11/15/23 Team Status: Inactive Member Role Status Dates Services [facility] Primary Care Provider Active Start: September 28, 2023 End: September 28, 2023 Rufina harrison NP-[place] Attending Provider Active Start: September 27 End: September 28, 2023 Team Status: Inactive Member Role Status Dates ZANE Driscoll Attending Provide r Active Start: February 02, 2024 End: February 02, 2024 Commercial Collections Driver Relationship Specialty Start Date End Date Unallocated, Parker Rene MD [address] [place] [address] PCP - General 05/26/23 Rufina Ruiz MD [address] [place] [address] Referring Physician Nurse Practitioner 01/06/24 Goals (unrecognized section and content) Goals may be documented in a n alternate section INFORMATION SOURCE (unrecogn ized section and content) DATE CREATED AUTHOR 10/05/2022 [facility] DATE CREATED AUTHOR AUTHOR'S ORGANIZ ATION 02/10/2024 [facility] DATE CREATED AUTHOR AUTHOR'S ORGANIZ ATION 05/06/2024 [facility] EPIC DATE CREATED AUTHOR AUTHOR'S ORGANIZ ATION 05/06/2024 [facility] Reason for Visit (unrecogniz ed section and content) Reason Comments Follow-up FOR RECORDS PERTAINING TO PATIENTS WHO ARE [...] BE BASED ON THE PRIMARY CLINICAL RECORDS. [facility] [employer] [facility]. provides no warranty or guarantee of the accuracy or completeness of information in this document.
[2024-05-09 17:44] LABS: Bacteria Urine SMALL #/HPF (NONE SEEN); Crystals Seen? None Seen #/HPF (None Seen); Mucus Urine TRACE (NONE SEEN); RBC Urine 20-50 #/HPF (0-2); Squamous Epithelial Cell Urine FEW #/LPF (NONE/RARE); Urine Microscopic Indicated YES; WBC Urine 20-50 #/HPF (NONE SEEN)
[2024-05-09 17:45] LABS: Cast Seen? NONE SEEN #/LPF (NONE SEEN); Urine Culture Indicated YES
--- NOTE | 2024-05-09 17:51 | ED.FEMALEGU1 ---
HPI - Female Genitourinary General Chief complaint: Urogenital-Female Stated complaint: uti Time Seen by Provider: 05/09/24 17:46 Source: patient Mode of arrival: walk-in Limitations: no limitations History of Present Illness HPI Narrative: Patient is a 48-year-old female who presents to the emergency department with concern for urinary tract infection. She states for the last 3 days she has had bladder pressure with voiding. She does have a history of previous urinary tract infections but has not been treated recently. She denies fevers, chills, nausea, vomiting, abdominal or flank pain. No medications taken prior to arrival. She has had a previous hysterectomy and is not concerned for . Related Data Home Medications ?Medication ?Instructions ?Recorded ?Confirmed albuterol sulfate 2.5 mg/3 mL 2.5 mg inhalation Q6H PRN 06/05/23 10/20/23 (0.083 %) solution for nebulization shortness of breath or wheezing fluticasone 250 mcg-salmeterol 50 1 inh inhalation BID 06/05/23 10/20/23 mcg/dose blistr powdr for inhalation (Advair Diskus) tizanidine 2 mg tablet 2 mg PO Q12H 06/05/23 10/20/23 albuterol sulfate 90 mcg/actuation 2 puff inhalation Q6H PRN 07/21/23 10/20/23 aerosol inhaler shortness of breath or wheezing fluoxetine 40 mg capsule 40 mg PO QDAY 07/21/23 10/20/23 folic acid 1 mg tablet 1 mg PO QDAY 07/21/23 10/20/23 olanzapine 10 mg tablet 10 mg PO QDAY 07/21/23 10/20/23 ropinirole 0.5 mg tablet 1 mg PO .qhs 07/21/23 10/20/23 Previous Rx's ?Medication ?Instructions ?Recorded tizanidine 2 mg capsule (Zanaflex) 2 mg PO Q8H PRN muscle spasm #12 12/20/23 caps ciprofloxacin HCl 500 mg tablet 500 mg PO Q12H #14 tabs 05/09/24 ondansetron 4 mg disintegrating 4 mg PO Q6H PRN nausea and 05/09/24 tablet vomiting #12 tabs phenazopyridine 200 mg tablet 200 mg PO Q8H 2 days #6 tabs 05/09/24 (Pyridium) Allergies Allergy/AdvReac Type Severity Reaction Status Date / Time hydroxyzine (From Vistaril) Allergy Severe Rash Verified 05/09/24 17:20 ketorolac (From Toradol) Allergy Severe Rash Verified 05/09/24 17:20 magnesium sulfate Allergy Severe Rash Verified 05/09/24 17:20 naproxen (From Anaprox) Allergy Severe Rash Verified 05/09/24 17:20 aspirin AdvReac Severe Vomiting Verified 05/09/24 17:20 haloperidol (From Haldol) AdvReac Severe lock jaw Verified 05/09/24 17:20 Review of Systems ROS Constitutional Denies: fever or chills Ears, nose, mouth, and throat Denies: throat pain or nasal congestion Respiratory Denies: shortness of breath Gastrointestinal Denies: abdominal pain, nausea, vomiting or diarrhea Genitourinary Reports: painful urination; Denies: pelvic pain Musculoskeletal Denies: back pain Integumentary/Breast Denies: rash Neurological Denies: numbness in extremities or weakness in extremities Hematologic/Lymphatic Denies: easy bruising or easy bleeding PFSH PFSH Social History Smoking status: Current every day smoker Little interest or pleasure in doing things: not at all Feeling down, depressed, or hopeless: not at all Exam Narrative Exam Narrative: Gen.: Awake, alert, in no distress Head: Normocephalic, atraumatic ENT: Moist mucous membranes Respiratory: No respiratory distress Gastrointestinal: Abdomen is soft, nondistended and nontender to palpation; no CVA tenderness Extremities: Moves extremities equally Psych: Normal mood and affect Neuro: No focal neuro deficit Skin: Warm, dry, intact Constitutional Vital Signs, click to edit/add: Last Vital Signs Temp 98.5 F 05/09/24 17:21 Pulse 78 05/09/24 17:21 Resp 16 05/09/24 17:21 BP 114/66 05/09/24 17:21 Pulse Ox 99 05/09/24 17:21 O2 Del Method Room Air 05/09/24 17:21 Course Vital Signs Vital signs: Vital Signs Temperature 98.5 F 05/09/24 17:21 Pulse Rate 78 05/09/24 17:21 Respiratory Rate 16 05/09/24 17:21 Blood Pressure 114/66 05/09/24 17:21 Pulse Oximetry 99 05/09/24 17:21 Oxygen Delivery Method Room Air 05/09/24 17:21 Temperature 98.5 F 05/09/24 17:21 Pulse Rate 78 05/09/24 17:21 Respiratory Rate 16 05/09/24 17:21 Blood Pressure 114/66 05/09/24 17:21 Pulse Oximetry 99 05/09/24 17:21 Oxygen Delivery Method Room Air 05/09/24 17:21 MDM - Female Genitourinary MDM Narrative Medical decision making narrative: Patient with stable vital signs, abdomen is soft and benign and she has no complaints of fevers, vomiting or flank pain. Urinalysis shows a nitrite positive urinary tract infection and she is discharged home with Cipro, Pyridium, Zofran. Follow-up with PCP and return to the ER if symptoms change or worsen SUPERVISED APC VISIT, PHYSICIAN ATTESTATION: Based on the medical record the care appears appropriate. ? Medical Records Attestation: I reviewed the patient's medical records. Lab Data Attestation: I reviewed the patient's lab results. Labs: Lab Results 05/09/24 Range/Units 17:27 Urine Color Yellow (YELLOW) Urine Clarity Sl cloudy (CLEAR) Urine pH 6.0 (5.0-9.0) Ur Specific [place] >=1.030 A (1.005-1.025) Urine Protein >=300 A (NEG/TRACE) mg/dL Urine Glucose (UA) Negative (NEGATIVE) mg/dL Urine Ketones 15 A (NEGATIVE) mg/dL Urine Occult Blood Large A (NEGATIVE) Urine Nitrite Positive A (NEGATIVE) Urine Bilirubin Negative (NEGATIVE) Urine Urobilinogen 1.0 (0.2-1.0) EU/dL Ur Leukocyte Esterase Moderate A (NEGATIVE) Urine RBC 20-50 A (0-2) #/HPF Urine WBC 20-50 A (NONE SEEN) #/HPF Ur Squamous Epith Cells Few A (NONE/RARE) #/LPF Urine Crystals None seen (None Seen) #/HPF Urine Bacteria Small A (NONE SEEN) #/HPF Urine Casts None seen (NONE SEEN) #/LPF Urine Mucus Trace A (NONE SEEN) Ur Culture Indicated? Yes Discharge Plan Discharge Chief Complaint: Urogenital-Female Clinical Impression: Urinary tract infection Patient Disposition: Home, Self-Care Time of Disposition Decision: 17:50 Condition: Good Prescriptions / Home Meds: New phenazopyridine [Pyridium] 200 mg tablet 200 mg PO Q8H 2 Days Qty: 6 0RF ciprofloxacin HCl 500 mg tablet 500 mg PO Q12H Qty: 14 0RF ondansetron 4 mg tablet,disintegrating 4 mg PO Q6H PRN (Reason: nausea and vomiting) Qty: 12 0RF No Action tizanidine [Zanaflex] 2 mg capsule 2 mg PO Q8H PRN (Reason: muscle spasm) Qty: 12 0RF albuterol sulfate 2.5 mg /3 mL (0.083 %) solution for nebulization 2.5 mg inhalation Q6H PRN (Reason: shortness of breath or wheezing) tizanidine 2 mg tablet 2 mg PO Q12H fluticasone propion-salmeterol [Advair Diskus] 250-50 mcg/dose blister with device 1 inh inhalation BID fluoxetine 40 mg capsule 40 mg PO QDAY olanzapine 10 mg tablet 10 mg PO QDAY ropinirole 0.5 mg tablet 1 mg PO .qhs folic acid 1 mg tablet 1 mg PO QDAY albuterol sulfate 90 mcg/actuation HFA aerosol inhaler 2 puff INHALATION Q6H PRN (Reason: shortness of breath or wheezing) Print Language: Welsh Instructions: Urinary Tract Infection in Women (ED) Referrals: [facility]ILY[facility] [Primary Care Provider] - 1 week
== END 2024-05-09 17:53 | disposition home or self-care (01) ==
PROVIDERS: Emergency Provider Emergency Medicine Emergency Medical Services
DX: N39.0 Urinary tract infection, site not specified (principal); F17.200 Nicotine dependence, unspecified, uncomplicated
CPT/HCPCS: 81001; 87086; 99283

== ENCOUNTER 2024-11-26 19:50 | Emergency (ER) | payer MEDICAID, SELFPAY ==
[2024-11-26 19:55] VITALS: BP 107/77; PULSE 83; TEMP 36.7; O2SAT 98; BMI 23.8
--- OUTSIDE RECORDS SUMMARY | 2024-11-26 20:07 | XMS_ITS | CCD ---
Author Organization [facility] Care Team Providers Care Sprayer Automatic Spray Machine Name Role Phone LizetCande rivera Selvin Primary Care Physician Bree Jimenes Unavailable Unavailable [facility] Primary Care Provider [phone] ZANE Rubio Attending Pr ovider [facility] Primary Care Provider [phone] ZANE Rubio Attending Pr ovider ZANE Rubio Attending Pr ovider [facility] Primary Care Provider [phone] MD Salvador Maier Jr Emergency Provider ZANE Rubio Attending Pr ovider NON STAFF Primary Care Provider Unavailabl e [facility] Primary Care Provider [phone] MD Salvador Maier Jr Emergency Provider [facility] Primary Care Unavaila sindhu Meneses, DR RICH Admitting Unavailable ROSE ., DR RICH Attending Unavailable ROSE ., DR RICH Consulting Unavailable [facility] Primary Care Unavaila sindhu ANGELA, DR ADDY Arrington Admitting Unavailable COREEN, DR ADDY Arrington Attending Unavailable ROSALIA ARROYO Consulting Unavailable [facility] Primary Care Unavaila ble MU SHERWOOD Admitting Unavailable MU SHERWOOD Attending Dom BENITEZ, DR MILE Pedersen Consulting Unavailable PAY ., DR ARGUETA Consulting Unavailable [facility] SHERWOOD Consulting Unavailable LUDIN ANGELES Consulting Unavailable [facility] Primary Care Unavaila ble COREEN, DR ADDY Arrington Admitting Unavailable COREEN, DR ADDY Arrington Attending Unavailable COREEN, DR ADDY Arrington Consulting Unavailable IRENE VENTURA Consulting Unavailable [facility] Primary Care Unavaila ble JUAN R ., DR GARCIA Admitting Unavailable MARKER ., DR GARCIA Attending Unavailable MARKER ., DR GARCIA Consulting Unavailable [facility] Primary Care Unavaila ble SHAWNA ., TREVOR Admitting Unavailable SHAWNA ., TREVOR Attending Unavailable SHAWNA ., TREVOR Consulting Unavailable [facility] Primary Care Unavaila ble SHAWNA ., TREVOR Admitting Unavailable SHAWNA ., TREVOR Attending Unavailable AYE ., PA ZOË Consulting Unavailsanchez VILLALPANDO, KAE Consulting Unavailable ZANE Rubio Attending Pr ovider ZANE Rubio Attending Pr ovider ZANE Rubio Attending Pr ovider MORGAN Galeana Attending Provider DO Brian Wood Attending Provider [phone] Unallocated, Noms Provider Primary Care Provider [facility] Primary Care Provider ZANE Rubio Attending Pr ovider ZANE Rubio Attending Pr ovider DO Michael Henderson Referring Unavailable DO Michael Henderson Attending Unavailable DO Michael Henderson Admitting Unavailable Unallocated , Noms Provider Primary Care Provi nitesh Rufina Rubio MD Unavailable Unallocated MD, Noms Provider Primary Care Provi nitesh Rufina Rubio NP Unavailable JADIEL SAMUEL Attending Unavailable BROWN, MICHAEL A Referring Unavailable JADIEL SAMUEL Attending Unavailable BROWN, MICHAEL A Referring Unavailable BROWN, MICHAEL A Referring Unavailable BARBIE HENDERSONSON A Attending Unavailable RUFINA RUBIO Referring Unavailable JADIEL SAMUEL Attending Unavailable BROWN, MICHAEL A Referring Unavailable BROWN, MICHAEL A Attending Unavailable BROWN, MICHAEL A Referring Unavailable MARICRUZ ARREOLA Attending Unavailable BROWN, MICHAEL A Referring Unavailable BROWN, MICHAEL A Attending Unavailable BROWN, MICHAEL A Referring Unavailable BROWN, MICHAEL A Attending Unavailable BROWN, MICHAEL A Attending Unavailable BROWN, MICHAEL A Referring Unavailable BROWN, MICHAEL A Referring Unavailable BROWN, MICHAEL A Attending Unavailable BROWN, MICHAEL A Referring Unavailable BROWN, MICHAEL A Attending Unavailable JANEY COX Attending Unavailable BROWN, MICHAEL A Referring Unavailable JADIEL SAMUEL Attending Unavailable BROWN, MICHAEL A Referring Unavailable Rubio MEDICAL DRIVER-C, Rufina Lerma Attending Pr ovider Ramiro MEDICAL DRIVERTrayC, Rufina Lerma Primary Care Provider Rufina Rubio Attending U navailable Rubio, Rufina Lerma Primary Care U navailable Rubio, Rufina Lerma Admitting U navailable Rubio, Rufina Lerma Attending U navailable Rubio, Rufina Lerma Primary Care U navailable Rubio, Rufina Lerma Admitting U navailable Rubio, Rufina Lerma Admitting U navailable Rubio, Rufina Lerma Attending U navailable Rubio, Rufina Lerma Primary Care U navailable Rubio, Rufina Lerma Attending U navailable Rubio, Rufina Lerma Admitting U navailable Rubio, Rufina Lerma Attending U navailable Rubio, Rufina Lerma Admitting U navailable Brown, Michael A Admitting Unavailable Brown, Michael A Attending Unavailable Brown, Michael A Referring Unavailable Akbar Philippe Admitting Unavailable Akbar Philippe Attending Unavailable Brown, Michael A Referring Unavailable Brown, Michael A Admitting Unavailable Brown, Michael A Attending Unavailable Allergies Allergy Classification Reported Allergen(s) Allergy Type Date of Onset Reaction(s) Facility (20 sources) Aspirin; Translations: [aspirin] Drug Allergy 12-17-19 vomiting, Nausea [facility] (20 sources) Haloperidol; Translations: [haloperidol] Drug Allergy 12-17-19 21 jaw locked sideways, Anaphylaxis [facility] (20 sources) hydrOXYzine; Translations: [hydroxyzine] Drug Allergy 12-17-19 21 rash, vomiting, Hives [facility] (7 sources) Ketorolac; Translations: [ketorolac] Drug Allergy migraines [facility] (20 sources) Magnesium Sulfate; Translations: [magnesium sulfate] Drug Allergy 12-17-19 21 vomiting [facility] (20 sources) metroNIDAZOLE; Translations: [metronidazole] Drug Allergy 12-17-19 21 vomiting, Hives [facility] (20 sources) Naproxen; Translations: [naproxen] Drug Allergy 12-17-19 21 Other [facility] (20 sources) NSAIDs; Translations: [NSAIDs] Drug allergy 04-23-20 23 Other [facility] (20 sources) Sulfamethoxazole / Trimethoprim; Translations: [sulfamethoxazole-t rimethoprim] Drug Allergy 05-26-20 23 vomiting [facility] (15 sources) Sulfamethoxazole; Translations: [sulfamethoxazole] Drug Allergy 12-17-19 21 [facility] (20 sources) Trimethoprim; Translations: [trimethoprim] Drug Allergy 12-17-19 21 [facility] (15 sources) NSAIDS (Non-Steroidal Anti-Inflamma; Translations: [NSAIDS (Non-Steroidal Anti-Inflamma] Allergy to substance 12-17-19 [facility] (1 source) Aspirin Drug Allergy 10-08-19 15 [facility] (1 source) Haloperidol Drug Allergy 10-08-19 15 [facility] (1 source) hydrOXYzine Drug Allergy 09-14-19 16 [facility] (1 source) Iothalamate Drug Allergy 09-16-19 16 [facility] (1 source) Ketorolac Drug Allergy 09-14-19 16 [facility] (1 source) Magnesium Sulfate Drug Allergy 10-08-19 15 [facility] (1 source) metroNIDAZOLE Drug Allergy 10-08-19 15 [facility] (1 source) Naproxen Drug Allergy 10-08-19 15 [facility] (1 source) NSAIDs Drug allergy (disorder) 10-08-19 15 [facility] (1 source) Sulfonamides (Antibiotic) Drug allergy (disorder) 10-08-19 15 [facility] (20 sources) Aluminum aspirin Drug Allergy 04-23-20 23 [facility] (20 sources) Ketorolac Allergy to substance 05-26-20 23 [facility] (20 sources) Ketorolac trometamol Propensity to adverse reactions 04-23-20 [facility] (20 sources) Magnesium Salicylate Drug Allergy 05-26-20 Other [facility] (20 sources) Magnesium sulfate Propensity to adverse reactions 04-23-20 [facility] (20 sources) Metoclopramide Drug Allergy 04-23-20 [facility] (20 sources) Penicillins Drug Allergy 05-26-20 [facility] (20 sources) Sulfonamides (Antibiotic) Drug Allergy 05-26-20 [facility] (6 sources) Sulfacetamide; Translations: [sulfacetamide] Drug Allergy 10-16-19 [facility] (20 sources) Sulfur; Translations: [sulfur] Drug Allergy 10-16-19 [facility] (1 source) Aspirin Drug Allergy 07-22-19 [facility] (1 source) Haloperidol Drug Allergy 07-22-19 [facility] (1 source) hydrOXYzine Drug Allergy 07-22-19 [facility] (1 source) Magnesium Sulfate Drug Allergy 07-22-19 [facility] (1 source) metroNIDAZOLE Drug Allergy 07-22-19 [facility] (1 source) Naproxen Drug Allergy 07-22-19 [facility] Medications Current Medications Medication Drug Class(es) Dates Sig (Normalized) Sig (Original) acetaminophen 325 mg / oxyCODONE hydrochloride 5 mg oral tablet (16 sources) Opioid Agonist Start: 05-19-2024 Percocet 5 mg-325 mg oral tablet See Instructions, 40 tab(s), Refill(s) 0, 1-2 tab(s) Oral q4hr, [facility] [id number], 159, cm, 05/05/24 7:05:00 EDT, Height/Length Dosing, 54.6, kg, 05/05/24 7:05:00 EDT, Weight Dosing Start Date: 05/19/24 Status: Ordered Quantity: 40.0 Unit: tab(s) Repeat number: 1 Start: 07-22-2022 End: 06-01-2024 take 1 tablet by mouth every six hours as needed for pain Oxycodone-Acetaminophen (Percocet) 5-325 mg tablet Active 1 - 2 TAB PO Every 6 hours as needed for pain 15 July 22, 2022 Start: 05-30-2021 Percocet 325 m g-5 mg Tab See Instructions, as needed for pain, 50 tab(s), Refill(s) 0, 1-2 tab(s) Oral q4hr, [facility], 156, cm, 05/21/21 5:13:00 EST, Height/Length Dosing, 57.1, kg, 05/21/21 5:13:00 EST, Weight Dosing Start Date: 05/30/21 Status: Ordered [id number] 200 actuat albuterol 0.09 mg/actuat metered dose inhaler (20 sources) beta2-Adrenergic Agonist Start: 01-22-2024 albut darline HFA 90 mcg/act inhaler 01/22/2024 Active Start: 07-22-2022 take 1 mg by inhalat ion once daily Albuterol Sulfate 2.5 mg /3 mL (0.083 %) solution for nebulization Active 1 MG INHALATION Daily July 22, 2022 1:00am Start: 05-20-2021 take 2.5 mg by inhal ation twice daily albuterol 0.083% Inh Ana Lilia 3 mL 2.5 mg, 3 mL, NEB, BID, Refill(s) 0, Other (see comment) Start Date: 05/20/21 Status: Ordered Repeat number: 1 Start: 05-20-2021 take 2.5 mg by inhal [...] Status: Ordered cephalexin 500 mg oral capsule (3 sources) Cephalosporin Antibacterial Start: 05-19-2024 take 1 capsule by mouth every twelve hours cephalexin 500 mg Cap 500 mg = 1 cap(s), Oral, q12hr, Refills(s) 0, Infection or prophylaxis for antibiotics Start Date: 05/19/24 Status: Ordered Repeat number: 1 Start: 05-24-2023 cephalexin (Ke flex) 500 MG capsule ciclopirox 80 mg/ml topical solution (20 sources) Start: 03-16-2023 ciclopirox (Penlac) 8 % solution 03/16/2023 Active diazePAM 5 mg oral tablet (17 sources) Benzodiazepine Start: 06-22-2024 End: 07-12-2024 diazePAM (Valium) 5 MG tablet Indications: Muscle Spasm Take 1 tablet (5 mg) by mouth as needed at bedtime for muscle spasms for up to 20 days 20 tablet 06/22/2024 Active docusate sodium 100 mg oral capsule (8 sources) Start: 05-19-2024 End: 06-27-2024 take 1 capsule by mouth twice daily as needed for constipation Colace 100 mg Cap 100 mg = 1 cap(s), Oral, BID, PRN for constipation, # 20 cap(s), Refills(s) 0, Pharmacy: [facility] [id number], 159, cm, 05/05/24 7:05:00 EDT, Height/Length Dosing, 54.6, kg, 05/05/24 7:05:00 EDT, Weight Dosing Start Date: 05/19/24 Status: Ordered Quantity: 20.0 Unit: cap(s) Repeat number: 1 Start: 05-30-2021 take 1 capsule by mo [facility] twice daily as needed for constipation Colace 100 mg Cap 100 mg = 1 cap(s), Oral, BID, PRN for constipation, # 20 cap(s), Refills(s) 0, Pharmacy: [facility] 858, 156, cm, 05/21/21 5:13:00 EST, Height/Length Dosing, 57.1, kg, 05/21/21 5:13:00 EST, Weight Dosing Start Date: 05/30/21 Status: Ordered famotidine 20 mg oral tablet (20 sources) Histamine-2 Receptor Antagonist Start: 10-04-2022 take 1 tablet by mouth in the morning famotidine (Pepcid) 20 MG tablet Take 20 mg by mouth in the morning. 10/04/2022 Active FLUoxetine 40 mg oral capsule (20 sources) Serotonin Reuptake Inhibitor Start: 05-20-2021 take 1 capsule by mouth once daily FLUoxetine 40 mg Cap 40 mg = 1 cap(s), Oral, Daily, Refills(s) 0, Anxiety Start Date: 05/20/21 Status: Ordered Repeat number: 1 fluticasone propionate 0.05 mg/actuat metered dose nasal spray (3 sources) Corticosteroid Start: 08-04-2024 fluticasone (Flonase) 50 MCG/ACT nasal spray 1 (one) time each day at the same time 08/04/2024 Active 120 actuat fluticasone propionate 0.045 mg/actuat / salmeterol 0.021 mg/actuat metered dose inhaler (20 sources) Corticosteroid, beta2-Adrenergic Agonist fluticasone-salmet draline (Advair HFA) 45-21 MCG/ACT inhaler Advair HFA Active fluticasone-salmet darline 250 mcg-50 mcg Inh Pwdr (1 source) Start: 05-20-2021 take 1 dose by inhalation every twelve hours fluticasone-salmet darline 250 mcg-50 mcg Inh Pwdr 1 vial, Inhalation, q12hr, Refill(s) 0, COPD Start Date: 05/20/21 Status: Ordered folic acid 1 mg oral tablet (20 sources) Start: 04-12-2023 folic acid (Folvite) 1 MG tablet 04/12/2023 Active metroNIDAZOLE 0.0075 mg/mg vaginal gel (3 sources) Nitroimidazole Antimicrobial Start: 06-22-2024 End: 12-19-2024 metroNIDAZOLE (Metrogel) 0.75 % vaginal gel 1 Application 06/22/2024 12/19/2024 Active montelukast 10 mg oral tablet (20 sources) Leukotriene Receptor Antagonist Start: 09-28-2023 montelukast (Singulair) 10 MG tablet 1 (one) time each day at the same time 09/28/2023 Active OLANZapine 15 mg oral tablet (20 sources) Atypical Antipsychotic Start: 01-22-2024 take 1 tablet by mouth once daily at bedtime olanzapine 15 mg oral tablet 15 mg = 1 tab(s), Oral, Once a day (at bedtime), Refills(s) 0, Depression Start Date: 05/04/24 Status: Ordered Repeat number: 1 Start: 05-20-2021 End: 03-07-2024 take 1 tablet by mouth once daily Olanzapine 10 mg tablet Active 10 MG PO Daily July 22, 2022 1:00am omeprazole 20 mg delayed release oral capsule (20 sources) Proton Pump Inhibitor Start: 07-22-2022 take 1 capsule by mouth once daily Omeprazole 20 mg capsule,delayed release(DR/EC) Active 20 MG PO Daily July 22, 2022 1:00am omeprazole (PriL OSEC) [address] capsule 1 (one) time each day at the same time Active ondansetron 4 mg disintegrating oral tablet (11 sources) Serotonin-3 Receptor Antagonist Start: 07-22-2022 take 1 tablet by mouth every eight hours as needed for nausea and vomiting Ondansetron 4 mg tablet,disintegrating Active 4 MG PO Q8H as needed for nausea and vomiting July 22, 2022 1:00am oxyCODONE hydrochloride 5 mg oral capsule (1 source) Opioid Agonist Start: 06-08-2021 oxyCODONE 5 mg Cap 5 mg = 1 cap(s), Oral, q6hr, PRN Pain 8-10, # 4 cap(s), Refills(s) 0, Pharmacy: [facility] 858, 155, cm, 06/08/21 8:15:00 EST, Height/Length Dosing, 60, kg, 06/08/21 8:15:00 EST, Weight Dosing Start Date: 06/08/21 Status: Ordered potassium chloride 10 meq extended release oral capsule (20 sources) Start: 10-21-2023 potassium chloride ER (Micro-K) 10 MEQ ER capsule 10/21/2023 Active rOPINIRole 1 mg oral tablet (20 sources) Nonergot Dopamine Agonist Start: 01-21-2024 take 1 tablet by mouth once daily ropinirole 1 mg Tab 1 mg = 1 tab(s), Oral, Daily, Refills(s) 0, Other (see comment) Start Date: 05/04/24 Status: Ordered Repeat number: 1 Start: 07-22-2022 End: 03-07-2024 take 1 tablet by mouth once daily Ropinirole 0.5 mg tablet Active 0.5 MG PO Daily July 22, 2022 1:00am Start: 05-20-2021 take 1 tablet by marielena th once daily ropinirole 0.25 mg Tab 0.25 mg = 1 tab(s), Oral, Daily, Refills(s) 0, Other (see comment) Start Date: 05/20/21 Status: Ordered tiZANidine 2 mg oral capsule (20 sources) Central alpha-2 Adrenergic Agonist Start: 05-04-2024 take 1 capsule by mouth twice daily tizanidine 2 mg oral capsule 2 mg = 1 cap(s), Oral, BID, # 180 cap(s), Refills(s) 0, Pain Start Date: 05/04/24 Status: Ordered Quantity: 180.0 Unit: cap(s) Repeat number: 1 Start: 07-22-2022 take 1 tablet by marielena th once daily Tizanidine 2 mg tablet Active 2 MG PO Daily July 22, 2022 1:00am Vitamin B-12 1000 mcg oral tablet (1 source) Start: 10-27-2022 Vitamin B-12 1 000 mcg oral tablet Refills(s) 0 Start Date: 10/27/22 Status: Ordered vitamin b12 1 mg oral tablet (20 sources) Vitamin B12 Start: 02-03-2023 cyanocobalamin (Vitamin B-12) 1000 MCG tablet 02/03/2023 Active Completed/Discontinued Medications Medication Drug Class(es) Dates Sig (Normalized) Sig (Original) acetaminophen 300 mg / codeine phosphate 30 mg oral tablet (4 sources) Opioid Agonist Start: 05-24-2023 End: 03-07-2024 acetaminophen-code ine (Tylenol w/ Codeine #3) 300-30 MG tablet 05/24/2023 03/07/2024 Discontinued ciprofloxacin 500 mg oral tablet (13 sources) Quinolone Antimicrobial Start: 10-27-2022 take 1 tablet by mouth once daily Cipro 500 mg Tab 500 mg = 1 tab(s), Oral, Daily, Take 1 tablet the day before the procedure and 1 tablet after the procedure, # 2 tab(s), Refills(s) 0, Pharmacy: [facility] [id number], 156, cm, 10/27/22 14:36:00 EDT, Height/Length Dosing, 62, kg, 10/27/22 14:36:00... Start Date: 11/27/22 Status: Ordered Start: 07-22-2022 take 1 tablet by marielena th once daily Ciprofloxacin Hcl 250 mg tablet Active 250 MG PO Daily July 22, 2022 1:00am gabapentin 300 mg oral capsule (20 sources) Anti-epileptic Agent Start: 05-19-2024 End: 08-14-2024 gabapentin (Neurontin) 300 MG capsule Take 300 mg by mouth 05/19/2024 08/14/2024 Discontinued (Therapy completed) LORazepam 0.5 mg oral tablet (20 sources) Benzodiazepine Start: 01-04-2024 End: 08-14-2024 LORazepam (Ativan) 0.5 MG tablet 1 (one) time each day at the same time 01/04/2024 08/14/2024 Discontinued (Therapy completed) predniSONE 10 mg oral tablet (3 sources) Start: 01-25-2024 End: 03-07-2024 predniSONE (Deltasone) 10 MG tablet Indications: Right shoulder pain, unspecified chronicity 6 pills day 1 & 2, 5 pills day 3 & 4, 4 pills day 5 & 6, 3 pills day 7 & 8, 2 pills day 9 & 10, 1 pill day 11 & 12 42 tablet 01/25/2024 03/07/2024 Discontinued traMADol hydrochloride 50 mg oral tablet (13 sources) Opioid Agonist Start: 03-23-2024 End: 06-27-2024 traMADol (Ultram) 50 MG tablet 03/23/2024 06/27/2024 Discontinued (Therapy completed) Start: 04-23-2023 End: 03-07-2024 traMADol (Ultram) 50 MG tabl et 04/23/2023 03/07/2024 Discontinued Problems Active Problems Problem Classification Problem Date Documented Date Episodic/Chronic Abdominal pain (17 sources) Epigastric pain; Translations: [Epigastric pain] Onset: 11-26-2021 07-22-2022 Episodic Allergic reactions (4 sources) Allergy, unspecified, initial encounter; Translations: [ALLERGY UNSPECIFIED INITIAL ENCNTR] Onset: 10-04-2022 Episodic Anxiety disorders (20 sources) Anxiety; Translations: [Anxiety disorder, unspecified] Onset: 10-05-2022 12-28-2013 Chronic Asthma (1 source) Unspecified asthma, uncomplicated; Translations: [UNSPECIFIED ASTHMA UNCOMPLICATED] Onset: 11-24-2021 Chronic Calculus of urinary tract (4 sources) History of calculus of kidney 10-27-2022 Episodic Chronic obstructive pulmonary disease and bronchiectasis (4 sources) Chronic obstructive lung disease 09-30-2022 Chronic Gastritis and duodenitis (1 source) Gastritis, unspecified, without bleeding; Translations: [GASTRITIS UNS WITHOUT BLEEDING] Onset: 07-23-2022 Episodic Genitourinary symptoms and ill-defined conditions (1 source) Frequency of micturition; Translations: [Frequency of micturition] Onset: 08-04-2024 Episodic Headache; including migraine (9 sources) Migraine without aura, not refractory ; Translations: [Migraine, unspecified, not intractable, without status migrainosus] Onset: 11-06-2021 06-22-2015 Chronic Headache; including migraine (5 sources) Headache 05-20-2021 Episodic Mood disorders (10 sources) Depression; Translations: [Bipolar disorder, unspecified] Onset: 10-05-2022 09-22-2013 Chronic Nausea and vomiting (5 sources) Nausea; Translations: [Nausea with vomiting, unspecified] Onset: 06-24-2022 Episodic Nonmalignant breast conditions (3 sources) Breast lump; Translations: [Unspecified lump in the right breast, unspecified quadrant] Onset: 09-29-2024 09-29-2024 Episodic Nonspecific chest pain (14 sources) Atypical chest pain; Translations: [Other chest pain] 05-29-2019 Episodic Other aftercare (1 source) Other retirement (current) drug therapy; Translations: [[facility] CURRENT DRUG THERAPY] Onset: 07-23-2022 Episodic Other connective tissue disease (5 sources) Impingement syndrome of shoulder region 05-20-2021 Episodic Other non-traumatic joint disorders (1 source) Pain of right shoulder joint; Translations: [Pain in right shoulder] Onset: 11-24-2021 Episodic Other non-traumatic joint disorders (14 sources) Chronic pain of right upper limb; Translations: [Pain in right shoulder] 12-16-2020 Episodic Other non-traumatic joint disorders (12 sources) Pain in right shoulder; Translations: [Pain in joint, shoulder region] Onset: 11-21-2021 Episodic Other screening for suspected conditions (not mental disorders or infectious disease) (1 source) Encounter for screening mammogram for malignant neoplasm of breast; Translations: [Encounter for screening mammogram for malignant neoplasm of breast] Onset: 09-22-2024 Episodic Residual codes; unclassified (1 source) Acquired absence of both cervix and uterus; Translations: [ACQUIRED ABSENCE BOTH CERVIX AND UTERUS] Onset: 10-05-2022 Episodic Residual codes; unclassified (13 sources) History of arthroscopic procedure on shoulder; Translations: [Other specified postprocedural states] 05-30-2024 Episodic Sprains and strains (4 sources) Strain of muscle(s) and tendon(s) of the rotator cuff of right shoulder, subsequent encounter; Translations: [Other specified aftercare] 05-03-2024 Episodic Substance-related disorders (6 sources) Smoker; Translations: [Nicotine dependence, cigarettes, uncomplicated] Onset: 06-26-2022 04-23-2014 Chronic Comment on above: Added secondary to d ocumentation in Social History. Unclassified (1 source) CONTACT W/AND (SUSP) EXPOS COVID-19; Translations: [CONTACT W/AND (SUSP) EXPOS COVID-19] Onset: 06-26-2022 Urinary tract infections (9 sources) Acute cystitis; Translations: [Recurrent urinary tract infection] Onset: 09-20-2024 10-05-2022 Episodic Past or Other Problems Problem [...] [CYST OF KIDNEY ACQUIRED] Onset: 11-26-2021 Episodic Residual codes; unclassified (1 source) Other specified postprocedural states; Translations: [OTH SPECIFIED POSTPROCEDURAL STATES] Onset: 11-24-2021 Episodic Skin and subcutaneous tissue infections (4 sources) Cutaneous abscess of right lower limb; Translations: [CUTANEOUS ABSCESS RIGHT LOWER LIMB] Onset: 04-08-2022 Episodic Viral infection (1 source) Viral infection, unspecified; Translations: [VIRAL INFECTION UNSPECIFIED] Onset: 06-26-2022 Episodic Results Test Name Value Interpretation Reference Range Facility [facility] 11-15-2024 Follitropin Qn 14.5 m[IU]/mL Invalid Interpretation Code [facility] Comment on above: Result Comment: Adul t Female Range Follicular phase 3.5 - 12.5 Ovulation phase 4.7 - 21.5 Luteal phase 1.7 - 7.7 Postmenopausal 25.8 - 134.8 Performed at: [address] [id number] PhD Nii Pearce Performed By: #### 1 [id number] #### [facility] [address] [place] [address] Lutropin Qn 18.5 m[IU]/mL Invalid Interpretation Code [facility] Comment on above: Result Comment: Adul t Female Range Follicular phase 2.4 - 12.6 Ovulation phase 14.0 - 95.6 Luteal phase 1.0 - 11.4 Postmenopausal 7.7 - 58.5 Performed By: #### [id number] #### [facility] [address] [place] [address] Geronimo 09-29-2024 L - -------- Specimen: [id number] Received: 09/29/24 Status: ANGELICABibiana Jannie Num: [id number] Spec Type: Surgical Subm Dr: Dara Hardy MD Tissues: A BREAST CORE NO CALCS (RT BREAST 12:00 6 CM FROM NI) Procedures: HE/4, Gross/Micro L4 -------- Age/ Patient Sex Location Account Attending Physician -------- ToddblasArchana Jose 48/F MELA [id number] Rufina Jenkins -------- SPEC NUM: [id number] RECD: 09/29/24 STATUS: BECKA NAIR NUM: [id number] GARETH: 09/29/24- [facility] DR: Dara Hardy MD ENTERED: 09/29/24 [facility] DR: Rufina Rubio SPEC TYPE: Surgical DEPT: S ORDERED: HE/4, Gross/Micro L4 ORDERED: HE/4, Gross/Micro L4 Pathological Diagnosis Right breast, mass at 12:00, 6 cm FN, ultrasound guided core needle biopsy: - Fibroadenoma. - No evidence of malignancy identified. Clinical Information Right breast mass 12:00, 6 cm from nipple Gross Description Received in formalin labeled with the patients name, date of , and right breast are five pale martinez to yellow bolton, delicate needle core biopsy segments, 0.7-2.2 cm in length with detached fragments of fibrofatty tissue, 0.9 x 0.7 x 0.2 cm in aggregate. The cores are entirely submitted in Cassette A1 with the fragmented fibrofatty tissue entirely submitted in Cassette A2. Fixation time: Time tissue removed from patient: 1117 Time specimen placed in formalin: 1127 Cold ischemic time: 10 minutes Total fixation time: 54 hours and 30 minutes (2, ns, [id number] A) KASSIE -------- Specimen: [id number] Received: 09/29/24 Status: BECKA Jannie Num: [id number] Spec Type: Surgical Subm Dr: Dara Hardy MD Tissues: A BREAST CORE NO CALCS (RT BREAST 12:00 6 CM FROM NI) Procedures: HE/Mary Graff/Vladimir L4 -------- Patient: Archana Joy [id number] (Continued) -------- Specimen: [id number] Received: 09/29/24 (Continued) Signed (signature on file) Leonidas Contreras MD 10/02/24 1053 -------- Specimen: [id number] Received: 09/29/24 Status: BECKA Nair Num: [id number] Spec Type: Surgical Subm Dr: Dara Hardy MD Tissues: A BREAST CORE NO CALCS (RT BREAST 12:00 6 CM FROM NI) Procedures: HE/Prerna, Gross/Micro L4 -------- Patient: Archana Joy N [id number] (Continued) -------- Specimen: [id number] Received: 09/29/24 (Continued) Microscopic Description Microscopic examination is performed. CPT Codes 23387 -------- -------- Specimen: [id number] Received: 09/29/24 Status: BECKA Nair Num: [id number] Spec Type: Surgical Subm Dr: Dara Hardy MD Tissues: A BREAST CORE NO CALCS (RT BREAST 12:00 6 CM FROM NI) Procedures: HE/Prerna, Gross/Micro L4 -------- Patient: Archana Joy Jose [id number] (Continued) -------- Signed (signature on file) Leonidas Contreras MD 10/02/24 1053 Normal [facility] MM post biopsy RT w/CADkamilla MM post biopsy RT w/CAD [address] [place] [address] [address] Ultrasound Report Signed with Laura Patient: Archana Joy Jose MR#: [id number] : 1975 Acct:[id number] Age/Sex: 48 / F ADM Date: 09/29/24 Loc: [place] Room: Type: [facility] Attending Dr: Rufina Rubio MEDICAL DRIVER-C Ordering Provider: Rufina Rubio Date of Service: 09/29/24 US/US biopsy RT 1st lesion guid: R92.8 ([id number]) MM/MM post biopsy RT w/CAD: CLIP PLACEMENT Copies to: Rufina Rubio ADDENDUM 1 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 No malignancy is identified. This is believed to be concordant. Follow-up ultrasound in 6 months could be cons idered. Impression dictated by: Dara Hardy M.D.10/03/2024 1:26 PM Dictation Location: [place] [address] Addendum Dictated By: MD Dara Hardy Addendum Signed By: 10/03/241325 Addendum Cosigned By: DD/ TD/TT: 10/03/24 RIGHT BREAST ULTRASOUND-GUIDED BIOPSY WITH VACUUM ASSISTANCE CLINICAL DATA: Hypoechoic nodule at the superior central right breast. Patient's previous imaging from September 2024 was reviewed. The procedure was discussed with the patient and consent was obtained. Ultrasound survey at the superior central aspect of the breast shows a subtle hypoechoic nodular area 12:00, 6 cm from the nipple. Following sterile preparation and local anesthesia with lidocaine, a 12-gauge vacuum-assisted needle was advanced through the area under direct ultrasound visualization. Core tissue samples were o btained. Before the needle was removed, a biopsy marking clip was placed. There were no immediate complications. Pressure was held to achieve hemostasis. DIAGNOSTIC RIGHT MAMMOGRAM - FULL FIELD DIGITAL Craniocaudal and true lateral views of the right breast were obtained using low-dose digital technique. Comparison is made to the previous mammogram from September 22, 2024. There are scattered fibroglandular densities. There is a new biopsy marking clip and subcutaneous air at the site of nodular asymmetry at the superior central breast at the time of the prior. The nodule is smaller following biopsy. US/US biopsy RT 1st lesion guid IMPRESSION: STATUS POST ULTRASOUND-GUIDED BIOPSY OF A NODULE AT THE SUPERIOR CENTRAL RIGHT BREAST. Impression dictated by: Dara Hardy M.D.09/29/2024 11:50 AM Dictation Location: [facility] Tech: Funmilayo Cortez Transcribed By: JORGE 09/29/24 1150 Dictated By: Dara Hardy MD 09/29/24 1102 Signed By: 09/29/24 1150 Normal [facility] MM diagnostic mammo BI w/CAD on 09-22-2024 MM diagnostic mammo BI w/CAD [facility] Main [place] [address] [place] [address] Ultrasound Report Signed Patient: Archana Joy MR#: [id number] : 1975 Acct:[id number] Age/Sex: 48 / F ADM Date: 09/22/24 Loc: [place] Room: Type: [facility] Attending Dr: Rufina Rubio MEDICAL DRIVER-C Ordering Provider: Rufina Rubio Date of Service: 09/22/24 US/US breast BI limited: Breast lump in female;Breast cancer screening by mammogram ([id number]) MM/MM diagnostic mammo BI w/CAD: Breast lump in female;Breast cancer screening by mammogram Copies to: Rufina Rubio CLINICAL DATA: Palpable lump left breast. Bilateral DIAGNOSTIC MAMMOGRAM - WITH TOMOSYNTHESIS AND CAD , bilateralLIMITED BREAST ULTRASOUND COMPARISON:Baseline study Tomosynthesis imaging was obtained using low-dose digital technique. This examination was reviewed with the aid of CAD. Additional ultrasound imaging was also obtained. Mammogram: The breasts are composed of scattered fibroglandular densities. No suspicious abnormality is seen involving the left breast. There appears be a mass at the approximately 12:00 position of the right breast, middle depth. Ultrasound: In the area palpable lump at the 2 to 3:00 position of the left breast approximately 4 cm from the nipple, dense fibroglandular tissue is present with a few cysts noted. No solid mass is present. At the 12:00 position of the right breast approximately 6 cm from the nipple, a well-circumscribed hypoechoic mass is noted measuring 10 x 10 x 5 mm. Additional scanning of the left axilla demonstrated no suspicious lymph nodes. US/US breast BI limited IMPRESSION: NO MAMMOGRAPHIC OR ULTRASOUND EVIDENCE OF MALIGNANCY WITHIN THE LEFT BREAST. THE PATIENT'S PALPABLE LUMP SHOULD BE HANDLED ON A CLINICAL BASIS. WELL-CIRCUMSCRIBED HYPOECHOIC MASS INVOLVING THE 12:00 POSITION OF THE RIGHT BREAST 6 CM FROM THE NIPPLE MEASURING 10 X 10 X 5 MM. AFTER DISCUSSION WITH THE PATIENT REGARDING THE IMAGING FINDINGS AND FOLLOW-UP OPTIONS, THE PATIENT ELECTED BIOPSY OF THIS MASS. THEREFORE, ULTRASOUND-GUIDED BIOPSY WILL BE SCHEDULED. RESULT CODE: 4a Suspicious Abnormality - Biopsy Low Suspicion DENSITY CODE: 2 (approximately 25-50% glandular) There are scattered areas of fibroglandular density. FOLLOW UP: BIO The false-negative rate of mammography is approximately 10-percent. Management of a palpable abnormality must be based on clinical grounds. Impression dictated by: Ursula Kimball Jr..OGideon09/22/2024 10:15 AM Dictation Location: [facility] Tech: [facility]; Shauna Woodall Transcribed By: JORGE 09/22/24 1015 Dictated By: Joe Gold Jr, DO 09/22/24 1000 Signed By: 09/22/24 1015 Normal [facility] US bladderon 09-20-[address] [facility] [place] [address] Ultrasound Report Signed Patient: Archana Joy MR#: [id number] : 1975 Acct:[id number] Age/Sex: 48 / F ADM Date: 09/20/24 Loc: Room: Type: [facility] Attending Dr: Rufina Rubio MEDICAL DRIVER-C Ordering Provider: Rufina Rubio Date of Service: 09/20/24 US/US bladder: Recurrent UTI Copies to: Rufina Rubio BLADDER ULTRASOUND CLINICAL HISTORY: UTI. COMPARISON: CT abdomen and pelvis 07/22/2022 FINDINGS: The urinary bladder is partially distended with a volume of 239.8 cm3 ml. No shadowing stone or focal lesion. No significant postvoid residual. US/US bladder IMPRESSION: No acute findings. Impression dictated by: Ursula Kimball Jr..OGideon09/20/2024 1:48 PM Dictation Location: [facility] Tech: Bethany Neeta Transcribed By: JORGE 09/20/24 1348 Dictated By: Joe Gold Jr DO 09/20/24 1348 Signed By: 09/20/24 1348 Normal [facility] US pelvic completeon [address] [facility] [place] [address] Ultrasound Report Signed Patient: Archana Joy MR#: [id number] : 1975 Acct:[id number] Age/Sex: 48 / F ADM Date: 09/20/24 Loc: Room: Type: [facility] Attending Dr: Rufina Rubio MEDICAL DRIVER-C Ordering Provider: Rufina Rubio Date of Service: 09/20/24 US/US pelvic complete: Recurrent UTI;Pelvic pain in female ([id number]) US/US transvaginal: PELIVIC PAIN IN FEMALE Copies to: Rufina Rubio Pelvic ultrasound. Reason for exam: Recurrent UTI. Pelvic pain and pressure. Comparison: none Technique: Transabdominal imaging of the uterus and ovaries was performed. Transvaginal imaging of the uterus and ovaries was also obtained. Additional spectral Doppler analysis of the ovaries was also obtained. Findings: Uterus has been removed. Right ovary measures 2.9 x 1.8 x 2.2 cm. Left ovary measures 2.3 x 1.0 x 1.7 cm. Normal arterial and venous Doppler waveforms. No adnexal mass or cyst. Presumed small hemorrhagic cysts are noted within both ovaries. No free fluid. US/US transvaginal Impression: No suspicious findings. Impression dictated by: Joe Gold Jr., D.OGideon09/20/2024 1:50 PM Dictation Location: [facility] Tech: Bethany Neeta Transcribed By: JORGE 09/20/24 1350 Dictated By: Joe Gold Jr, DO 09/20/24 1348 Signed By: 09/20/24 1350 Normal [facility] Urine Cultureon 08-04-2024 Bacteria identified Cx Nom (U) Reason for Exam Urinary frequency Urine ORGANISM: Escherichia coli (O:ESCCOL) [place] Count >100,000 ORGANISM: Klebsiella pneumoniae (O:KLEPNE) [place] Count 75,000 Aerobic [place] Charge (NMIC56) ---- SUSCEPTIBILITY --- ORGANISM: O:ESCCOL ANTIBIOTIC INTERPRETATION [place] Amikacin S <16 Amoxacillin/K Clavulanate S <8 Ampicillin S <8 Ampicillin/Sulbactam S <4 Aztreonam S <4 Cefazolin S <2 Cefepime S <2 Ceftazidime S <1 Ceftazidime/Avibactam S <4 Ceftolozane/Tazobacta m S <2 Ceftriaxone S <1 Cefuroxime S <4 Ciprofloxacin S <0.25 Ertapenem S <0.5 Gentamicin S <2 Levofloxacin S <0.5 Meropenem S <1 Meropenem/Vaborbactam S <2 Nitrofurantoin S <32 Piperacillin/Tazobact am S <8 Tetracycline S <4 Tigecycline S <2 Tobramycin S <2 Trimethoprim/Sulfamet hoxazole S <0.5 Aerobic [place] Charge (NMIC56) ---- SUSCEPTIBILITY --- ORGANISM: O:KLEPNE ANTIBIOTIC INTERPRETATION [place] Amikacin S <16 Amoxacillin/K Clavulanate S <8 Ampicillin/Sulbactam S 88/4 Aztreonam S <4 Cefazolin S <2 Cefepime [...] RESISTANT TO ALL B-LACTAM DRUGS. PERFORMED BY: [place] [address] PATHOLOGIST HEEL BUFFER CHRISTINA SINCLAIR M.D. Normal [facility] Comment on above: Performed By: #### C UU #### [address] Urine cultureOrdered By: Arlin Rubio on 08-04-2024 Bacteria identified Cx Nom (U) Escherichia coli Abnormal [facility] Bacteria identified Cx Nom (U) Abnormal [facility] XR Shoulder - right 2 Viewso n 05-30-2024 Imaging Result: 3 views right shoulder, Grashey/Zanca/outlet, taken today and saved to the permanent medical record are reviewed. No fractures. [facility] Radiology Study observation (narrative) [facility] Main OR Intraoperative Recor don 05-22-2024 Main OR Intraoperative Record Main OR Intraoperative Record IntraOp Document Type FT Summary Primary Physician: Michael Henderson DO Finalized Date/Time: 05/22/24 09:22:47 Pt. Name: ARCHANA JOY/Sex: 1975 Female Med Rec #: [id number] Physician: Michael Henderson DO Financial #: [id number] Pt. Type: A Room/Bed: AS15 Admit/Disch: 05/19/24 06:22:55 - 05/19/24 12:30:00 Institution: Case Times FT Entry 1 Patient Times In Room 05/19/24 09:13:00 Out Room 05/19/24 10:41:00 Procedure Times Start 05/19/24 09:48:00 Stop 05/19/24 10:32:00 Anesthesia Times Start 05/19/24 09:13:00 Stop 05/19/24 10:41:00 Last Modified By: Nitin Hernandez Ii 05/19/24 10:47:49 General Comments: 05/22/24 Chart opened to review and send charges LRoth CSFA Case Attendance FT Entry 1 Entry 2 Entry 3 Case Attendee Pancho HARKINS, WAGON DRILLER, Queen Beatriz MILLER, Michael Tanner TEAROOM HOST/HOSTESS, Diane Swan Role Performed WAGON DRILLER Surgeon - Primary TEAROOM HOST/HOSTESS/SA Time In 05/19/24 09:13:00 05/19/24 09:40:00 05/19/24 09:13:00 Time Out 05/19/24 10:41:00 05/19/24 10:30:00 05/19/24 10:41:00 Procedure SHOULDER ARTHROSCOPY W/ SHOULDER ARTHROSCOPY W/ SHOULDER ARTHROSCOPY W/ POSSIBLE REPAIR(Right) POSSIBLE REPAIR(Right) POSSIBLE REPAIR(Right) Comments DR. DONALD FINANCIAL COACH Last Modified By: Nitin Hernandez Ii, Alfons Ii F Letrondo, Alfons Ii F 05/19/24 10:47:50 05/19/24 10:48:01 05/19/24 10:47:50 Entry 4 Entry 5 Case Attendee Miesha Davis Alfons Ii F Role Performed Scrub - Primary Technical Agronomist - Primary Time In 05/19/24 09:13:00 05/19/24 09:13:00 Time Out 05/19/24 10:41:00 05/19/24 10:41:00 Procedure SHOULDER ARTHROSCOPY W/ SHOULDER ARTHROSCOPY W/ POSSIBLE REPAIR(Right) POSSIBLE REPAIR(Right) Comments Last Modified By: Nitin Hernandez Ii, Alfons Ii F 05/19/24 10:47:50 05/19/24 10:47:50 General Comments: CATRACHO GAO FROM [employer] IS IN ATTENDANCE. 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 Protocols FT Pre-Care Text: Implements protective measures prior to operative or invasive procedure, confirms identity before the operative or invasive procedure, verifies operative procedure, surgical site, and laterality Entry 1 Procedure(s) SHOULDER ARTHROSCOPY W/ Patient Identity Birthday, ID Band POSSIBLE REPAIR(Right) Verified (select at Check, Patient least 2): Participation Consents / H and P Anesthesia Consent, Operative Site Present Verified H&P, Surgery/Procedure Marking Verified Consent Surgical Site Yes Laterality Verified Yes Verified Procedure Verified Yes Correct Patient Yes Position Verified Availability Equipment, Implant, Prep Dry Yes Verified (If Medication Applicable) PreOp Antibiotic Yes Time Out Pancho HARKINS, URMILA, Queen Margarette Doherty NGideon, Michael Henderson DO, Wilhelm CST, Ryan Luo Sydney A, Nitin Hernandez Ii Time Out Complete 05/19/24 09:48:00 Outcomes Met? Yes Last Modified By: Nitin Hernandez Ii 05/19/24 10:00:52 Post-Care Text: The patient is free from signs and symptoms of injury caused by extraneous objects Allergy Information FT Pre-Care Text: Verifies allergies Entry 1 Allergies Reviewed? Yes Allergies Reviewed Self/Patient With Outcomes Met? Yes Last Modified By: Nitin Hernandez Ii 05/19/24 10:01:04 Post-Care Text: The patient received appropriate medication(s) safely administered during the perioperative period Surgical Procedures FT Entry 1 Procedure Description Procedure SHOULDER ARTHROSCOPY W/ Modifiers Right POSSIBLE REPAIR Surgeon Description RIGHT SHOULDER ARTHROSCOPY WITH ROTATOR CUFF REPAIR, DISTAL CLAVICLE COPLANING Primary Procedure Yes Primary Surgeon Michael Henderson DO Start 05/19/24 09:48:00 Stop 05/19/24 10:32:00 Anesthesia Type General Surgical Service Orthopedics Wound Class 1 - Clean Last Modified By: Nitin Hernandez Ii 05/19/24 10:47:52 General Case Data FT Pre-Care Text: Classifies surgical wound, implements aseptic technique, initiates traffic control Entry 1 Case Information OR OR 5 FT Case Level Level 4 Wound Class 1 - Clean Specialty Orthopedics ASA Class 3 Preop Diagnosis RIGHT SHOULDER ROTATOR Postop Same As Preop Yes CUFF TEAR Postop Diagnosis RIGHT SHOULDER ROTATOR Outcomes Met? Yes CUFF TEAR Last Modified By: Noemy Peter CST 05/22/24 09:19:25 Post-Care Text: The patient is free from signs and symptoms of infection Skin Assessment (Pre Procedure) FT Pre-Care Text: Implements protective measures to prevent skin/ tissue injury due to thermal or mechanical sources Evaluates for signs and symptoms of physical injury to skin and tissue Entry 1 Skin Integrity Intact, Felicity, Warm, & Skin Abnormality No Dry Outcomes Met? Yes Last Modified By: Mary Silverlaw Robertson F 05/19/24 10:01:30 Post-Care Text: The patient is free from signs and symptoms of injury caused by extraneous objects Patient Positioning FT Pre-Care Text: Identifies physical a (more content not included)... [facility] Discharge Instructionson Discharge Instructions Discharge Instructions ARCHANA JOY :1975 Visit Date:05/19/2024 Inpatient Discharge Instructions Your Care Team Admitting Physician - Michael Henderson DO Referring Physician - Michael Henderson DO Reason for Your Visit RIGHT SHOULDER ROTATOR CUFF TEAR This Is Your Medications List acetaminophen-oxycodo ne (Percocet 5 mg-325 mg oral tablet) albuterol (albuterol 0.083% Inh Ana Lilia 3 mL) cephalexin (cephalexin 500 mg Cap) docusate (Colace 100 mg Cap) fluoxetine (FLUoxetine 40 mg Cap) gabapentin (gabapentin 300 mg Cap) olanzapine (olanzapine 15 mg oral tablet) ropinirole (ropinirole 1 mg Tab) tizanidine (tizanidine 2 mg oral capsule) Procedure History Arthroscopy of shoulder (05/30/2021), Vaginal hysterectomy. What to do next Instructions From Your Doctor No qualifying data available. New Follow Up Appointments after Discharge Follow Up with Michael Henderson When: 05/30/2024 03:15 PM EST Comments: Call for any problems. Where: [address] [place] [phone] [facility] (1) Medications What How Much When Instructions Next Dose New acetaminophen-oxycodo ne (Percocet 5 mg-325 mg oral tablet) See instructions 1-2 tab(s) Oral q4hr Pickup at [facility] [id number] New docusate (Colace 100 mg Cap) 1 Capsules By Mouth 2 times a day as needed for for constipation Pickup at [facility] [id number] New gabapentin (gabapentin 300 mg Cap) 1 Capsules By Mouth 3 times a day Duration: 14 Days Pickup at [facility] [id number] Unchanged albuterol (albuterol 0.083% Inh Ana Lilia 3 mL) 3 Milliliter Nebulized inhalation (aerosol) 2 times a day Unchanged cephalexin (cephalexin 500 mg Cap) 1 Capsules By Mouth Every 12 hours Unchanged fluoxetine (FLUoxetine 40 mg Cap) 1 Capsules By Mouth Every day Unchanged olanzapine (olanzapine 15 mg oral tablet) 1 Tablets By Mouth Once a day (at bedtime) Unchanged ropinirole (ropinirole 1 mg Tab) 1 Tablets By Mouth Every day Unchanged tizanidine (tizanidine 2 mg oral capsule) 1 Capsules By Mouth 2 times a day Pharmacy Information [facility] [id number]: [address] [place], [place] [phone] Test Results No qualifying data available. Allergies Anaprox (vomiting) Bactrim (vomiting) Flagyl (vomiting) Haldol (jaw locked sideways) NSAIDs (vomiting) Toradol (migraines) Vistaril (rash, vomiting) aspirin (vomiting) magnesium sulfate (vomiting) Problems Ongoing - Any problem that you are currently receiving treatment for. Acute cystitis with hematuria Bipolar disorder Chronic obstructive lung disease History of kidney stones Recurrent UTI Smoker 11-JAN-2014 12:37:00<$> Historical - Any problem that you are no longer receiving treatment for. anxiety Depression Headache MIGRAINE Devices Implanted/Removed This Visit Notice: You have devices implanted this visit that may not be MRI compatible. Implanted SHOULDER ARTHROSCOPY W/ POSSIBLE REPAIR Shoulder R SUTURE ANCHOR, BIOCOMPOSITE SWIVELOCK C, CLOSED EYELET WITH #2 FIBERWIRE 05/19/2024 Education Materials [place], [place] [facility] AFTER YOUR SHOULDER ARTHROSCOPY 1. Diet: Begin with a liquid diet and advance to your normal diet as tolerated. 2. Activity: You may remove your sling for bathing and to perform gentle range of motion exercises for the hand, wrist, and elbow. Bend and straighten your elbow and wrist several times per day to minimize stiffness. Keep your elbow in close to your side when performing these exercises. Do not move your shoulder until instructed by your surgeon. Swelling after surgery is normal and this will gradually decrease over time. All sports activities are discouraged, at least until your first post-operative visit at which time we will discuss how and when to resume sports. 3. Driving: Driving is legal. If you are involved in an accident, you must be able to prove that you maintained full control of your vehicle. For this reason, it is advised that you do not drive until your strength returns. You should not operate a vehicle or heavy machinery if you are taking narcotic pain medication. 4. Pain: If pain persists despite rest, elevation, and medication, contact your surgeon. You will be given a prescription for pain medications prior to leaving the hospital. Please inform us of any known drug allergy. If you have any problems with the medication, it should be discontinued and our office notified. The sensation of splashing of fluid inside the joint is not cause for concern. It represents residual fluids from surgery and they will be absorbed. Elevation of the arm and application of an ice pack will minimize swelling and discomfort in the first 48 hours after surgery. 5. Bandage: Soft compression dressing has been applied to your shoulder. This dressing should be c (more content not included)... [facility] Comment on above: Result Comment: Elec tronically Signed By: Essie TRIPP, Henna Montalvo\.br\Date and Time Signed: 05/19/24 11:11 EST Inpatient Patient Summaryon 05-19-2024 Inpatient Patient Summary Inpatient Patient Summary [place] [id number] [facility] Clinical Discharge Instructions PERSON INFORMATION Name: ARCHANA JOY PH[facility]ICIANS Admitting Physician: Michael Henderson DO Attending Physician: Michael Henderson DO PCP: Cande Hinds MD Discharge Diagnosis: Comment: PATIENT EDUCATION INFORMATION Instructions: Jessica Henderson - After Your Shoulder Arthroscopy (Custom) Medication Leaflets: Follow up: MEDICATION LIST New Medications [facility] [id number], [address] [place], [place] [phone], [phone] acetaminophen-oxycodo ne (Percocet 5 mg-325 mg oral tablet) 1-2 tab(s) Oral q4hr. Refills: 0. docusate (Colace 100 mg Cap) 1 Capsules By Mouth 2 times a day as needed for constipation. Refills: 0. gabapentin (gabapentin 300 mg Cap) 1 Capsules By Mouth 3 times a day for 14 Days. Refills: 0. Medications to Continue with No Changes Other Medications albuterol (albuterol 0.083% Inh Ana Lilia 3 mL) 3 Milliliter Nebulized inhalation (aerosol) 2 times a day., copd cephalexin (cephalexin 500 mg Cap) 1 Capsules By Mouth every 12 hours. fluoxetine (FLUoxetine 40 mg Cap) 1 Capsules By Mouth every day. olanzapine (olanzapine 15 mg oral tablet) 1 Tablets By Mouth once a day (at bedtime). ropinirole (ropinirole 1 mg Tab) 1 Tablets By Mouth every day., RLS tizanidine (tizanidine 2 mg oral capsule) 1 Capsules By Mouth 2 times a day. Comment: [facility] Main OR PACU I Recordon 0 Main OR PACU I Record Main OR PACU I Rec ord PACU Phase I Document Type FT Summary Primary Physician: Michael Henderson DO Finalized Date/Time: 05/19/24 12:20:11 Pt. Name: ARCHANA JOY./Sex: 1975 Female Med Rec #: [id number] Physician: Michael Henderson DO Financial #: [id number] Pt. Type: A Room/Bed: [place] [address] Admit/Disch: 05/19/24 06:22:55 - Institution: Case Times PACU I FT Pre-Care Text: Identifies barriers to communication and implements measures to provide psychological support Develops individualized plan of care, and ensures continuity of care Maintains patient's dignity and privacy, and maintains patient confidentiality Identifies and reports philosophical, cultural, and spiritual beliefs and values Identifies individual values and wishes concerning care Implements aseptic technique, and administers prescribed antibiotic therapy and immunizing agents as ordered Evaluates postoperative tissue perfusion Implements thermoregulation measures, and monitors body temperature Evaluates postoperative respiratory status Evaluates postoperative cardiac status Evaluates postoperative neurological status Assesses pain control, collaborated in initiating patient-controlled analgesia and implements alternative methods of pain control Verifies allergies, administers prescribed medications and solutions, evaluates response to medications Entry 1 In PACU I 05/19/24 10:42:00 Discharge from PACU 05/19/24 11:29:00 I Outcomes Met? Yes Last Modified By: Birdie Bennett RN 05/19/24 12:19:55 Post-Care Text: The patient demonstrates knowledge of the expected response to the operative or invasive procedure The patient's care is consistent with the individualized perioperative plan of care The patient's right to privacy is maintained The patient's value system, lifestyle, ethnicity, and culture are considered, respected, and incorporated into the perioperative plan of care The patient participates in decisions affecting his or her perioperative plan of care The patient is free from signs and symptoms of infection The patient has wound/tissue perfusion consistent with or improved from baseline levels established preoperatively The patient is at or returning to normothermia at the conclusion of the immediate postoperative period The patient's respiratory function is consistent with or improved from baseline levels established preoperatively The patient's cardiovascular status is consistent with or improved from baseline levels established preoperatively The patient's cardiovascular status is consistent with or improved from baseline levels established preoperatively The patient demonstrates and/or reports adequate pain control throughout the perioperative period The patient received appropriate medication(s), safely administered during the perioperative period Acuity Level PACU I FT Entry 1 Start Time 05/19/24 10:42:00 Stop Time 05/19/24 11:29:00 Acuity Level Acuity Level I Last Modified By: Birdie Bennett RN 05/19/24 12:20:07 Finalized By: Birdie Bennett RN Document Signatures Signed By: Birdie Bennett RN 05/19/24 12:20 Normal [facility] Main OR Preoperative Recordo n 05-19-2024 Main OR Preoperative Record Main OR Preoperative Record PreOp Document Type FT Summary Primary Physician: Michael Henderson DO Finalized Date/Time: 05/19/24 09:57:42 Pt. Name: ARCHANA JOY/Sex: 1975 Female Med Rec #: [id number] Physician: Michael Henderson DO Financial #: [id number] Pt. Type: A Room/Bed: [place] [address] Admit/Disch: 05/19/24 06:22:55 - Institution: Case Times PreOp FT Pre-Care Text: Verifies consent for planned procedure, identifies individual values and wishes concerning care, includes family members in perioperative teaching Entry 1 Patient Times. In Pre Surgery 05/19/24 06:30:00 Out Pre Surgery 05/19/24 09:11:00 Outcomes Met? Yes Last Modified By: Nitin Hernandez Ii 05/19/24 09:57:40 Post-Care Text: The patient participates in decisions affecting his or her perioperative plan of care Finalized By: Nitin Hernandez Ii Document Signatures Signed By: Nitin Hernandez Ii 05/19/24 09:57 [facility] Operative Reporton Operative Report Operative Report Patient: ARCHANA JOY Age: 48 years Sex: Female : 1975 Associated Diagnoses: None Author: Michael Henderson DO DATE OF SURGERY: 05/19/2024 SURGEON: Michael Henderson D.O. FIBRE TECHNOLOGIST: Diane Tanner CFA PREOPERATIVE DIAGNOSIS: Rotator cuff tear, right shoulder POSTOPERATIVE DIAGNOSIS: Rotator cuff tear, right shoulder PROCEDURE: 1. Examination under anesthesia, right shoulder 2. Right shoulder diagnostic arthroscopy 3. Arthroscopic rotator cuff repair 4. Arthroscopic limited debridement with distal clavicle coplaning ANESTHESIA: General + regional block ANESTHESIOLOGIST: Queen Pancho CRNA and Akbar Donald MD IMPLANTS: Rotator cuff repair: Arthrex 4.75 mm biocomposite swivel lock anchor OPERATIVE INDICATIONS: Archana is a 48-year-old [id number] female who has a history of right shoulder arthroscopy, subacromial decompression, distal clavicle excision, and mini open biceps tenodesis on 05/30/2021. She had an injury to the shoulder after surgery and since that time has continued to struggle with pain and dysfunction. She failed conservative treatment. Her pain affects her activities of daily living, ability to sleep at night, and quality of life. MRI was consistent with high-grade partial-thickness tearing of the supraspinatus. She agreed to proceed with the above procedure after a discussion of the risks, benefits, complications, alternatives, and expectations. Please see office notes for further details. PROCEDURE IN DETAIL: The correct operative site was identified and marked in the preoperative holding area. The patient was administered intravenous antibiotics in accordance with SCIP protocol and was also administered 1 g of tranexamic acid intravenously. The patient was transported to the regional block room and administered a regional anesthetic nerve block by the anesthesiologist. I requested the regional block to assist with intraoperative and postoperative pain control. The patient was transported to the operating room, placed supine on the operating room table, and administered general anesthetic. After adequate anesthesia was obtained, the patient was placed into the beachchair position with all bony prominences well-padded. The head was secured in the padded baltazar. Surgical timeout was performed with all required personnel present. The operative shoulder was examined and found to have full forward flexion, abduction, internal and external rotation. No anterior or posterior instability. The operative upper extremity was prepped and draped in the usual sterile fashion. The forearm was secured in the Spider tenet pneumatic arm baltazar. Landmarks were demarcated. The glenohumeral joint was insufflated with 20 mL of injectable saline utilizing a spinal needle inserted posteriorly. A standard posterior portal was made at the patient's previous posterior portal. The arthroscope was introduced into the glenohumeral joint. An anterior portal in the rotator interval was made at the patient's previous anterior portal. A 7 mm cannula was placed at the anterior portal. A hook probe was inserted and a diagnostic arthroscopy was carried out with the findings as noted below: 1. Superior labrum and biceps: Biceps tendon was absent due to history of tenodesis. Superior labrum was unremarkable. 2. Labrum: Anterior and inferior labrum intact. Mild fraying to the posterior labrum at 10:00 without detachment. 3. Articular surfaces: Glenoid and humeral head were free of articular changes. 4. Rotator cuff: Subscapularis and infraspinatus intact. High-grade partial-thickness bursal sided tearing of the anterior supraspinatus. 5. Rotator interval was free of pathology. Axillary recess free of loose bodies. No HAGL or RHAGL. A spinal needle was inserted through the anterior aspect of the supraspinatus at the area of concern that was seen on MRI. There was no articular sided fraying to the cuff. An 0 Prolene suture was passed through the spinal needle and retrieved to the anterior portal to serve as a marking stitch. The arthroscope was transferred to the anterior portal and the glenohumeral joint was examined once again. The posterior labrum was debrided with the shaver. The arthroscope was removed from the glenohumeral joint and redirected into the subacromial space posteriorly. The patient's previous lateral portal was made and the passport cannula was placed. Bursectomy was carried out with the [place] wand and shaver. The Prolene suture was localized and the rotator cuff was inspected from the posterior and lateral portals. At the location of the spinal needle, there was significant bursal sided inflammation to the supraspinatus tendon. An accessory anterolateral portal was made with outside in technique using spinal needle localization. Another passport cannula was placed. This area was probed and the tendon was thin. The tear was completed with an elevator. Soft tissue was cleared from the great (more content not included)... [facility] Comment on above: Result Comment: Elec tronically Signed By: Michael Henderson DO\.br\Date and Time Signed: 05/19/24 11:07 EST Outpatient Surgery Discharge Instructionon 05-19-2024 Outpatient Surgery Discharge Instruction Outpatient Surgery Discharge Instruction [place] [address] Patient Discharge Instructions PERSON INFORMATION Name: TODDBLAS ARCHANA Garcia Date of : 1975 Current Date: 05/19/2024 07:57:20 PHYSICIANS Admitting Physician: Michael Henderson DO Discharge Diagnosis: ARCHANA JOY has been given the following list of follow-up instructions, prescriptions, and patient education materials: IF UNABLE TO CONTACT YOUR PHYSICIAN AND YOU FEEL IT IS AN EMERGENCY, GO TO THE NEAREST EMERGENCY ROOM OR CALL 911 IRUFINO BRANDI N, have received the attached patient education materials/instruction s and have verbalized understanding: May we do a follow up call? Yes No I was present when discharge instructions were given Patient Signature Date Clinican/Nurse Signature Date Follow up: Pharmacy Information: You may receive a survey from [employer] asking you to rate your care experience. Your feedback is important and will help us understand what we do well and how we can improve the quality of care we provide to you, your loved ones and our community. It???s an honor to serve you. Thank you for choosing [facility] HERE ARE THE MEDICATION CHANGES THAT OCCURRED DURING YOUR HOSPITAL STAY New Medications [facility] [id number], [address], [place] [id number], [phone] acetaminophen-oxycodo ne (Percocet 5 mg-325 mg oral tablet) 1-2 tab(s) Oral q4hr. Refills: 0. docusate (Colace 100 mg Cap) 1 Capsules By Mouth 2 times a day as needed for constipation. Refills: 0. gabapentin (gabapentin 300 mg Cap) 1 Capsules By Mouth 3 times a day for 14 Days. Refills: 0. Medications to Continue with No Changes Other Medications albuterol (albuterol 0.083% Inh Ana Lilia 3 mL) 3 Milliliter Nebulized inhalation (aerosol) 2 times a day., copd cephalexin (cephalexin 500 mg Cap) 1 Capsules By Mouth every 12 hours. fluoxetine (FLUoxetine 40 mg Cap) 1 Capsules By Mouth every day. olanzapine (olanzapine 15 mg oral tablet) 1 Tablets By Mouth once a day (at bedtime). ropinirole (ropinirole 1 mg Tab) 1 Tablets By Mouth every day., RLS tizanidine (tizanidine 2 mg oral capsule) 1 Capsules By Mouth 2 times a day. PATIENT EDUCATION INFORMATION Instructions: [place], [place] [facility] AFTER YOUR SHOULDER ARTHROSCOPY 1. Diet: Begin with a liquid diet and advance to your normal diet as tolerated. 2. Activity: You may remove your sling for bathing and to perform gentle range of motion exercises for the hand, wrist, and elbow. Bend and straighten your elbow and wrist several times per day to minimize stiffness. Keep your elbow in close to your side when performing these exercises. Do not move your shoulder until instructed by your surgeon. Swelling after surgery is normal and this will gradually decrease over time. All sports activities are discouraged, at least until your first post-operative visit at which time we will discuss how and when to resume sports. 3. Driving: Driving is legal. If you are involved in an accident, you must be able to prove that you maintained full control of your vehicle. For this reason, it is advised that you do not drive until your strength returns. You should not operate a vehicle or heavy machinery if you are taking narcotic pain medication. 4. Pain: If pain persists despite rest, elevation, and medication, contact your surgeon. You will be given a prescription for pain medications prior to leaving the hospital. Please inform us of any known drug allergy. If you have any problems with the medication, it should be discontinued and our office notified. The sensation of splashing of fluid inside the joint is not cause for concern. It represents residual fluids from surgery and they will be absorbed. Elevation of the arm and application of an ice pack will minimize swelling and discomfort in the first 48 hours after surgery. 5. Bandage: Soft compression dressing has been applied to your shoulder. This dressing should be comfortable and absorb any leakage of fluid or blood from your operated shoulder. Although the dressing may become moist or blood stained, this is not usually a cause for concern. If this persists, notify your surgeon. You may remove the dressing 48 hours after your surgery. If you have a bandage in your armpit, leave this in place until follow up. Apply betadine and band-aids to the small incisions once or twice daily as needed. 6. Incisions: The portals of entry may be sore and develop bruising over the next several days. The br (more content not included)... [facility] Proceduralon 05-19-2024 Procedural Procedural Patient: ARCHANA JOY Age: 48 years Sex: Female : 1975 Associated Diagnoses: None Author: Pancho HARKINS CRNA, Dove N. Procedure Nerve Block Block Type: Interscalene block. Laterality: Right. Informed consent for anesthesia management: Anesthesia options discussed including nerve block, Description of the procedure, risks, benefits, and alternatives was provided, The patient's questions were addressed. Time out: Confirmed correct patient, procedure and site. Time: Date/Time 05/19/2024 08:35:00. Indication: Block for postoperative pain management as requested by surgeon. Anesthesia Method: IV Sedation with monitored anesthesia care, The patient remained awake and able to interact in a meaningful way throughout the procedure. Preparation: The patient was placed in the following position Supine, Continuous pulse oximetry applied, Using maximal sterile barrier technique per current [facility] guidelines including hand hygeine, Guidance (Ultrasound used to identify anatomical landmarks, Using sterile gel and probe covers, Permanent image retained), The site was prepped with ChloraPrep. Procedure: Anesthetic Agent (10ml of Exparel 1.3% and 10ml of 0.25% Bupivacaine., Nerve stimulator with good response/ arm twitch.), Catheter size (21 guage, Sonoplex needle), Needle was inserted without pain or parasthesia in the conscious patient, Number of attempts 1, Negative attempt at aspiration for blood, Medial and lateral spread of the anesthestic was observed, Periodic negative attempts at aspiration of blood were made as the local was injected, No pain or parathesia were elicited with injection of the anesthetic in the conscious patient, It was idetified that the correct anesthetic agent was administered to the correct site. Complications: The patient tolerated the procedure as expected, Procedure completed by Queen Pancho CRNA under Dr Donald's supervision.. Normal [facility] XR Chest 2 Viewson 4 XR Chest [...] Ahmad FINAL REPORT Dictated: 05/05/2024 11:25 am Signer Hernandez ANSARI Signed (Electronic Signature): 05/05/2024 11:25 am Signed by: Hernandez Mclean MD Transcribed by: FLACO Technologist: IGOR Technical Comments Radiation Dose: Ka,r in mGy = na DAP = na Normal [facility] BMPon 05-04-2024 Anion gap [Moles/Vol] 9 mmol/L Normal 6-16 [facility] Comment on above: Performed By: #### 2 [id number] #### [facility] [address] [place] [address] Calcium [Mass/Vol] 9.3 mg/dL Normal 8.9-11.1 [facility] Comment on above: Performed By: #### 2 [id number] #### [facility] [address] [place] [address] Chloride [Moles/Vol] 103 mmol/L Normal 101-111 [facility] Comment on above: Performed By: #### 2 [id number] #### [facility] [address] [place] [address] CO2 [Moles/Vol] 28 mmol/L Normal 21-31 [facility] Comment on above: Performed By: #### 2 [id number] #### [facility] [address] [place] [address] Creatinine [Mass/Vol] 0.6 mg/dL Normal 0.5-1.3 [facility] Comment on above: Performed By: #### 2 [id number] #### [facility] [address] [place] [address] Glucose [Mass/Vol] 97 mg/dL Normal 55-199 [facility] Comment on above: Performed By: #### 2 [id number] #### [facility] [address] [place] [address] Potassium [Moles/Vol] 3.6 mmol/L Normal 3.5-5.3 [facility] Comment on above: Performed By: #### 2 [id number] #### [facility] [address] [place] [address] Sodium [Moles/Vol] 136 mmol/L Normal 135-145 [facility] Comment on above: Performed By: #### 2 [id number] #### [facility] [address] [place] [address] Urea nitrogen [Mass/Vol] 9 mg/dL Normal 5-21 [facility] Comment on above: Performed By: #### 2 [id number] #### [facility] [address] [place] [address] Urea nitrogen/Creatinine [Mass ratio] 15 No Units Normal 10-20 [facility] Comment on above: Performed By: #### 2 [id number] #### [facility] [address] [place] [address] CBC w/ Auto Diffon 4 Basophils/100 WBC (Bld) 0.7 % Normal 0.0-2.0 [facility] Comment on above: Performed By: #### 2 [id number] #### [facility] [address] [place] [address] Basophils/Leukocytes Auto (Bld) [Pure # fraction] 0.1 E9/L Normal 0.0-0.2 [facility] Comment on above: Performed By: #### 2 [id number] #### [facility] [address] [place] [address] Eosinophils (Bld) [#/Vol] 0.1 E9/L Normal 0.0-0.5 [facility] Comment on above: Performed By: #### 2 [id number] #### [facility] [address] [place] [address] Eosinophils/100 WBC (Bld) 1.1 % Normal 0.0-8.0 [facility] Comment on above: Performed By: #### 2 [id number] #### [facility] [address] [place] [address] Erythrocyte distribution width (RBC) [Ratio] 13.4 % Normal 10.9-14.2 [facility] Comment on above: Performed By: #### 2 191437 #### [facility] [address] [place] [address] Hematocrit (Bld) [Volume fraction] 41.2 % Normal 34.0-46.0 [facility] Comment on above: Performed By: #### 2 [id number] #### [facility] [address] [place] [address] Hemoglobin (Bld) [Mass/Vol] 14.2 g/dL Normal 12.0-16.0 [facility] Comment on above: Performed By: #### 2 [id number] #### [facility] [address] [place] [address] Lymphocytes (Bld) [#/Vol] 2.9 E9/L Normal 1.0-4.0 [facility] Comment on above: Performed By: #### 2 993042 #### [facility] [address] [place] [address] Lymphocytes/100 WBC (Bld) 36.1 % Normal 14.0-50.0 [facility] Comment on above: Performed By: #### 2 [id number] #### [facility] [address] [place] [address] MCH (RBC) [Entitic mass] 31.7 pg Normal 27.0-34.0 [facility] Comment on above: Performed By: #### 2 [id number] #### [facility] [address] [place] [address] MCHC (RBC) [Mass/Vol] 34.4 g/dL Normal 31.4-36.0 [facility] Comment on above: Performed By: #### 2 [id number] #### [facility] [address] [place] [address] MCV (RBC) [Entitic vol] 92.2 fL Normal 80.0-100.0 [facility] Comment on above: Performed By: #### 2 [id number] #### [facility] [address] [place] [address] Monocytes (Bld) [#/Vol] 0.6 E9/L Normal 0.2-1.0 [facility] Comment on above: Performed By: #### 2 [id number] #### [facility] [address] [place] [address] Neutrophils (Bld) [#/Vol] 4.4 E9/L Normal 2.0-7.5 [facility] Comment on above: Performed By: #### 2 604264 #### [facility] [address] [place] [address] Neutrophils/100 WBC (Bld) 55.2 % Normal 36.0-75.0 [facility] Comment on above: Performed By: #### 2 [id number] #### [facility] [address] [place] [address] Platelet mean volume (Bld) [Entitic vol] 9.3 fL Normal 6.4-10.8 [facility] Comment on above: Performed By: #### 2 [id number] #### [facility] [address] [place] [address] Platelets (Bld) [#/Vol] 207.0 E9/L Normal 150.0-500.0 [facility] Comment on above: Performed By: #### 2 668202 #### [facility] [address] [place] [address] RBC (Bld) [#/Vol] 4.5 E12/L Normal 4.3-5.9 [facility] Comment on above: Performed By: #### 2 [id number] #### [facility] [address] [place] [address] WBC corrected for nucl RBC Auto (Bld) [#/Vol] 8.0 E9/L Normal 4.0-11.0 [facility] Comment on above: Performed By: #### 2 [id number] #### [facility] [address] [place] [address] CHEMISTRYOrdered By: SYSTEM SYSTEM on 05-04-2024 Anion [...] 05-04-2024 eGFR 112 mL/min/1.73 m2 Normal >=59 [facility] Comment on above: Performed By: #### 1 [id number] ####[facility] [id number] [place] [address] MR SHOULDER RIGHT WO IV CONT [facility] 04-03-2024 MR SHOULDER RIGHT WO IV CONTRAST [...] IGP, Age Gdln Note Normal . [facility] Comment on above: Result Comment: TEST S RESULT FLAG UNITS REF RANGE LAB Clinician Provided Cytology Information No. of containers..01 ThinPrep Vial Age Algo ACOG Judi... 30-65 01 FLAG LEGEND: L-Low Normal,H-High Normal,LL-Alert Low,HH-Alert High <-Panic Low,>-Panic High,A-Abnormal,AA-Critical Abnormal Performed at: 01 =G [address] [address] dAriane Sherman MD, Performed By: #### P AP [id number], VAGINITIS+ #### [facility] , PAP HPV HR Negative Normal Negative [facility] Comment on above: Result Comment: This nucleic acid amplification test detects fourteen high- risk HPV types (16,18,31,33,35,39,45,51,52,56,58,59,66,68) without differentiation. Performed at: = - [facility] [address] [id number] Scraper Operator: Adriane Sherman MD, Phone: [phone] Performed at: - [facility] [id number] Scraper Operator: Adriane Sherman MD, Phone: [phone] PERFORMED BY: [address] [place] [address] PATHOLOGIST HEEL BUFFER MARINE WARD M.D. Performed By: #### P AP [id number], VAGINITIS+ #### [facility] , Pap Image Guided Note Normal . [facility] Comment on above: Result Comment: TEST S RESULT FLAG UNITS REF RANGE LAB DIAGNOSIS: 02 NEGATIVE FOR INTRAEPITHELIAL LESION OR MALIGNANCY. CELLULAR CHANGES ASSOCIATED WITH INFLAMMATION ARE PRESENT. Specimen adequacy: 02 Satisfactory for evaluation. No endocervical component is identified. Performed by: 02 Katy Champagne, Production Lead (ASCP) . 02 Note: Note 02 The [...] <-Panic Low,>-Panic High,A-Abnormal,AA-Critical Abnormal Performed at: [address] [facility] [id number] Adriane Sherman MD, Performed By: #### P AP [id number], VAGINITIS+ #### [facility] , Vaginitis Plus (VG+)on 02-01 Atopobium Vaginae High - 2 Critically abnormal . [facility] Comment on above: Order Comment: SOURC E OF SPECIMEN: APTIMA Result Comment: This test was developed and its performance characteristics determined by [facility]. It has not been cleared or approved by the Food and Drug Administration. Performed By: #### P AP [id number], VAGINITIS+ #### [facility] , BVAB2 High - 2 Critically abnormal . [facility] Comment on above: Order Comment: SOURC E OF SPECIMEN: APTIMA Result Comment: This test was developed and its performance characteristics determined by [facility]. It has not been cleared or approved by the Food and Drug Administration. Performed By: #### P AP [id number], VAGINITIS+ #### [facility] , Yuki Albicans, MICHAEL Negative Normal Negative [facility] Comment on above: Order Comment: SOURC E OF SPECIMEN: APTIMA Result Comment: This test was developed and its performance characteristics determined by [facility]. It has not been cleared or approved by the Food and Drug Administration. Performed By: #### P AP [id number], VAGINITIS+ #### [facility] , Yuki Glabrata, MICHAEL Negative Normal Negative [facility] Comment on above: Order Comment: SOURC E OF SPECIMEN: APTIMA Result Comment: This test was developed and its performance characteristics determined by [facility]. It has not been cleared or approved by the Food and Drug Administration. PERFORMED BY: [place] [id number] [place] [address] PATHOLOGIST HEEL BUFFER MARINE WARD M.D. Performed By: #### P AP [id number], VAGINITIS+ #### [facility] , Chlamydia Trachomotis, MICHAEL Negative Normal Negative [facility] Comment on above: Order Comment: SOURC E OF SPECIMEN: APTIMA Performed By: #### P AP [id number], VAGINITIS+ #### [facility] , Megasphaera High - 2 Critically abnormal . [facility] Comment on above: Order Comment: [...] of BV. Performed By: #### P AP [id number], VAGINITIS+ #### [facility] , Neisseria Gonorrhoeae, MICHAEL Negative Normal Negative [facility] Comment on above: Order Comment: SOURC E OF SPECIMEN: APTIMA Result Comment: Perf ormed at: =G - [facility] [address] [place] [id number] Scraper Operator: Adriane Sherman MD, Phone: [phone] Performed By: #### P AP [id number], VAGINITIS+ #### [facility] , Tric Vag MICHAEL Negative Normal Negative [facility] Comment on above: Order Comment: SOURC E OF SPECIMEN: APTIMA Performed By: #### P AP [id number], VAGINITIS+ #### [facility] , Alanine aminotransferase [En zymatic activity/volume] in Serum or PlasmaOrdered By: Rufina Rubio on 09-28-2023 ALT [Catalytic activity/Vol] 7 U/L 7-52 [facility] Albumin [Mass/volume] in Ser um or Plasma by Bromocresol green (BCG) dye binding methoOrdered By: Rufina Rubio on 09-28-2023 Albumin BCG dye [Mass/Vol] 4.9 g/dL 3.5-5.7 [facility] Alkaline phosphatase [Enzyma tic activity/volume] in Serum or PlasmaOrdered By: Rufina Rubio on 09-28-2023 ALP [Catalytic activity/Vol] 100 U/L 34-104 [facility] Aspartate aminotransferase [ Enzymatic activity/volume] in Serum or PlasmaOrdered By: Rufina Rubio on 09-28-2023 AST [Catalytic activity/Vol] 11 U/L 13-39 [facility] Bilirubin.total [Mass/volume ] in Serum or PlasmaOrdered By: Rufina Rubio on 09-28-2023 Bilirubin [Mass/Vol] 0.3 mg/dL 0.3-1.0 [facility] Calcium [Mass/volume] in Ser um or PlasmaOrdered By: Rufina Rubio on 09-28-2023 Calcium [Mass/Vol] 9.7 mg/dL 8.6-10.3 [facility] Carbon dioxide, total [Moles /volume] in Serum or PlasmaOrdered By: Rufina Rubio on 09-28-2023 CO2 [Moles/Vol] 29.3 mmol/L 21.0-31.0 [facility] Chloride [Moles/volume] in S siddhartha or PlasmaOrdered By: Rufina Rubio on 09-28-2023 Chloride [Moles/Vol] 107 mmol/L 98-107 [facility] Creatinine [Mass/volume] in Serum or PlasmaOrdered By: Rufina Rubio on 03-19-2024 Creatinine [Mass/Vol] 0.60 mg/dL 0.60-1.20 [facility] Ferritin [Mass/volume] in Se rum or PlasmaOrdered By: Rufina Rubio on 09-28-2023 Ferritin [Mass/Vol] 72.4 ng/mL 11.0-306.8 [facility] Folate [Mass/volume] in Seru m or PlasmaOrdered By: Rufina Rubio on 09-28-2023 Folate [Mass/Vol] 6.3 ng/mL >5.9 [facility] Comment on above: Folate reference ran ge: >5.9 ng/mlThe WHO technical consultation on folate and vitamin [id number] has determined that folate concentrations lessthan 4 ng/ml are considered deficient. Globulin Calc (S) [Mass/Vol] Ordered By: Rufina Rubio on 09-28-2023 Globulin (S) [Mass/Vol] 2.2 g/dL [facility] Glucose [Mass/volume] in Ser um or PlasmaOrdered By: Rufina Rubio on 09-28-2023 Glucose [Mass/Vol] 90 mg/dL 70-100 [facility] Comment on above: ADA recommended refe rence rangeRandom Glucose Reference Range is dependent on time and content of last meal. Glucose of more than 200 mg/dL in a nonstressed, ambulatory subject supports the diagnosis of Diabetes Mellitus. Iron [Mass/volume] in Serum or PlasmaOrdered By: Rufina Rubio on 09-28-2023 Iron [Mass/Vol] 92 ug/dL 50-212 [facility] Iron binding capacity [Mass/ volume] in Serum or PlasmaOrdered By: Rufina Rubio on 09-28-2023 Iron binding capacity [Mass/Vol] 323 ug/dL 255-450 [facility] Iron saturation [Mass Fracti on] in Serum or PlasmaOrdered By: Rufina Rubio on 09-28-2023 Iron saturation [Mass fraction] 28.5 % 20-50 [facility] No Panel InformationOrdered By: Rufina Rubio on 09-28-2023 Estimated GFR (CKD-EPI) > 60.0 mL/Min [facility] Creatinine Clearance (Chem N/A [facility] Potassium [Moles/volume] in Serum or PlasmaOrdered By: Rufina Rubio on 09-28-2023 Potassium [Moles/Vol] 3.9 mmol/L 3.5-5.1 [facility] Protein [Mass/volume] in Ser um or PlasmaOrdered By: Rufina Rubio on 09-28-2023 Protein [Mass/Vol] 7.1 g/dL 6.4-8.9 [facility] Serum or plasma albumin/glob ulin mass ratioOrdered By: Rufina Rubio on 09-28-2023 Albumin/Globulin [Mass ratio] 2.2 {ratio} [facility] Serum or plasma anion gap de terminationOrdered By: Rufina Rubio on 09-28-2023 Anion gap [Moles/Vol] 8.6 mmol/L 6.0-15.0 [facility] Sodium [Moles/volume] in Ser um or PlasmaOrdered By: Rufina Rubio on 09-28-2023 Sodium [Moles/Vol] 141 mmol/L 136-145 [facility] Thyrotropin [Units/volume] i n Serum or PlasmaOrdered By: Rufina Rubio on 09-28-2023 TSH Qn 2.58 m[IU]/L 0.45-5.33 [facility] Thyroxine (T4) free [Mass/vo lume] in Serum or PlasmaOrdered By: Rufina Rubio on 09-28-2023 Free T4 [Mass/Vol] 0.86 ng/dL 0.61-1.12 [facility] Transferrin [Mass/volume] in Serum or PlasmaOrdered By: Rufina Rubio on 09-28-2023 Transferrin [Mass/Vol] 231 mg/dL 203-362 [facility] Urea nitrogen [Mass/volume] in Serum or PlasmaOrdered By: Rufina Rubio on 09-28-2023 Urea nitrogen [Mass/Vol] 10 mg/dL 7-25 [facility] Vitamin B12 ser/plasOrdered By: Rufina Rubio on 09-28-2023 Cobalamin (Vitamin B12) [Mass/Vol] 6683 pg/mL 180-914 [facility] Aerobic cultureOrdered By: Kingsley Galeana on 05-26-2023 Bacteria identified Aer cx Nom (Unsp spec) 2 Days [facility] Alanine aminotransferase [En zymatic activity/volume] in Serum or PlasmaOrdered By: Rufina Rubio on 03-19-2023 ALT [Catalytic activity/Vol] 7 U/L 7-52 [facility] Albumin [Mass/volume] in Ser um or Plasma by Bromocresol green (BCG) dye binding methoOrdered By: Rufina Rubio on 03-19-2023 Albumin BCG dye [Mass/Vol] 4.3 g/dL 3.5-5.7 [facility] Alkaline phosphatase [Enzyma tic activity/volume] in Serum or PlasmaOrdered By: Rufina Rubio on 03-19-2023 ALP [Catalytic activity/Vol] 100 U/L 34-104 [facility] Aspartate aminotransferase [ Enzymatic activity/volume] in Serum or PlasmaOrdered By: Rufina Rubio on 03-19-2023 AST [Catalytic activity/Vol] 10 U/L 13-39 [facility] Basophils Auto (Bld) [#/Vol] Ordered By: Rufina Rubio on 03-19-2023 Basophils (Bld) [#/Vol] 0.0 10*3/uL 0.0-0.2 [facility] Basophils/100 WBC Auto (Bld) Ordered By: Rufina Rubio on 03-19-2023 Basophils/100 WBC (Bld) 0.4 % . [facility] Bilirubin.total [Mass/volume ] in Serum or PlasmaOrdered By: Rufina Rubio on 03-19-2023 Bilirubin [Mass/Vol] 0.3 mg/dL 0.3-1.0 [facility] Calcium [Mass/volume] in Ser um or PlasmaOrdered By: Rufina Rubio on 03-19-2023 Calcium [Mass/Vol] 9.6 mg/dL 8.6-10.3 [facility] Carbon dioxide, total [Moles /volume] in Serum or PlasmaOrdered By: Rufina Rubio on 03-19-2023 CO2 [Moles/Vol] 29.4 mmol/L 21.0-31.0 [facility] Chloride [Moles/volume] in S siddhartha or PlasmaOrdered By: Rufina Rubio on 03-19-2023 Chloride [Moles/Vol] 108 mmol/L 98-107 [facility] Cholesterol [Mass/volume] in Serum or PlasmaOrdered By: Rufina Rubio on 03-19-2023 Cholesterol [Mass/Vol] 164 mg/dL 140-200 [facility] Comment on above: Chol less than 200 m g/dl low riskChol 201-239 mg/dl borderline riskChol 240 mg/dl and greater high risk Cholesterol in LDL Calc [Mas s/Vol]Ordered By: Rufina Rubio on 03-19-2023 Cholesterol in LDL [Mass/Vol] 84 mg/dL 0-100 [facility] Comment on above: LDL ATP III CLASSIFI CATIONLDL less than 100 mg/dL OptimalLDL 100-129 mg/dL Near or above optimalLDL 130-159 mg/dL Borderline highLDL 160-189 mg/dL HighLDL greater than 189 mg/dL Very high Cholesterol in VLDL Calc [Ma ss/Vol]Ordered By: Rufina Rubio on 03-19-2023 Cholesterol in VLDL [Mass/Vol] 19 mg/dL [facility] Creatinine [Mass/volume] in Serum or PlasmaOrdered By: Rufina Rubio on 03-19-2023 Creatinine [Mass/Vol] 0.74 mg/dL 0.60-1.20 [facility] Eosinophils Auto (Bld) [#/Vo l]Ordered By: Rufina Rubio on 03-19-2023 Eosinophils (Bld) [#/Vol] 0.1 10*3/uL 0.0-0.45 [facility] Eosinophils/100 WBC Auto (Bl d)Ordered By: Rufina Rubio on 03-19-2023 Eosinophils/100 WBC (Bld) 1.5 % . [facility] Erythrocyte distribution wid th Auto (RBC) [Ratio]Ordered By: Rufina Rubio on 03-19-2023 Erythrocyte distribution width (RBC) [Ratio] 13.7 % 11.9-15.3 [facility] Ferritin [Mass/volume] in Se rum or PlasmaOrdered By: Rufina Rubio on 03-19-2023 Ferritin [Mass/Vol] 58.3 ng/mL 11.0-306.8 [facility] Folate [Mass/volume] in Seru m or PlasmaOrdered By: Rufina Rubio on 03-19-2023 Folate [Mass/Vol] 5.7 ng/mL >5.9 [facility] Comment on above: Folate reference ran ge: >5.9 ng/mlThe WHO technical consultation on folate and vitamin [id number] has determined that folate concentrations lessthan 4 ng/ml are considered deficient. Globulin Calc (S) [Mass/Vol] Ordered By: Rufina Rubio on 03-19-2023 Globulin (S) [Mass/Vol] 2.1 g/dL [facility] Glucose [Mass/volume] in Ser um or PlasmaOrdered By: Rufina Rubio on 03-19-2023 Glucose [Mass/Vol] 94 mg/dL 70-100 [facility] Comment on above: ADA recommended refe rence rangeRandom Glucose Reference Range is dependent on time and content of last meal. Glucose of more than 200 mg/dL in a nonstressed, ambulatory subject supports the diagnosis of Diabetes Mellitus. Hematocrit Auto (Bld) [Volum e fraction]Ordered By: Rufina Rubio on 03-19-2023 Hematocrit (Bld) [Volume fraction] 39.9 % 34.0-46.4 [facility] Hemoglobin [Mass/volume] in BloodOrdered By: Rufina Rubio on 03-19-2023 Hemoglobin (Bld) [Mass/Vol] 13.3 g/dL 11.8-15.4 [facility] Iron [Mass/volume] in Serum or PlasmaOrdered By: Rufina Rubio on 03-19-2023 Iron [Mass/Vol] 68 ug/dL 50-212 [facility] Iron binding capacity [Mass/ volume] in Serum or PlasmaOrdered By: Rufina Rubio on 03-19-2023 Iron binding capacity [Mass/Vol] 305 ug/dL 255-450 [facility] Iron saturation [Mass Fracti on] in Serum or PlasmaOrdered By: Rufina Rubio on 03-19-2023 Iron saturation [Mass fraction] 22.3 % 20-50 [facility] Leukocytes [#/volume] correc zakia for nucleated erythrocytes in Blood by Automated counOrdered By: Rufina Rubio on 03-19-2023 WBC corrected for nucl RBC Auto (Bld) [#/Vol] 9.6 10*3/uL 3.8-11.6 [facility] Lymphocytes Auto (Bld) [#/Vo l]Ordered By: Rufina Rubio on 03-19-2023 Lymphocytes (Bld) [#/Vol] 2.4 10*3/uL 1.00-4.8 [facility] Lymphocytes/100 WBC Auto (Bl d)Ordered By: Rufina Rubio on 03-19-2023 Lymphocytes/100 WBC (Bld) 25.6 % . [facility] MCH Auto (RBC) [Entitic mass ]Ordered By: Rufina Rubio on 03-19-2023 MCH (RBC) [Entitic mass] 30.3 pg 24.7-34.3 [facility] MCHC Auto (RBC) [Mass/Vol]Or dered By: Rufina Rubio on 03-19-2023 MCHC (RBC) [Mass/Vol] 33.3 g/dL 32.0-35.0 [facility] MCV Auto (RBC) [Entitic vol] Ordered By: Rufina Rubio on 03-19-2023 MCV (RBC) [Entitic vol] 91.1 fL 80-100 [facility] Monocytes Auto (Bld) [#/Vol] Ordered By: Rufina Rubio on 03-19-2023 Monocytes (Bld) [#/Vol] 0.7 10*3/uL 0.0-0.8 [facility] Monocytes/100 WBC Auto (Bld) Ordered By: Rufina Rubio on 03-19-2023 Monocytes/100 WBC (Bld) 7.1 % . [facility] Neutrophils Auto (Bld) [#/Vo l]Ordered By: Rufina Rubio on 03-19-2023 Neutrophils (Bld) [#/Vol] 6.2 10*3/uL 1.8-7.7 [facility] Neutrophils/100 WBC Auto (Bl d)Ordered By: Rufina Rubio on 03-19-2023 Neutrophils/100 WBC (Bld) 65.4 % . [facility] No Panel InformationOrdered By: Rufina Rubio on 03-19-2023 Estimated GFR (CKD-EPI) > 60.0 mL/Min [facility] Creatinine Clearance (Chem N/A [facility] Nucleated erythrocytes [Pres ence] in Blood by Automated countOrdered By: Rufina Rubio on 03-19-2023 Nucleated RBC Auto Ql (Bld) 0.2 /100{WBC} 0-0.5 [facility] Platelet mean volume Auto (B ld) [Entitic vol]Ordered By: Rufina Rubio on 03-19-2023 Platelet mean volume (Bld) [Entitic vol] 10.4 fL 6.3-10.7 [facility] Platelets Auto (Bld) [#/Vol] Ordered By: Rufina Rubio on 03-19-2023 Platelets (Bld) [#/Vol] 179 10*3/uL 150-450 [facility] Potassium [Moles/volume] in Serum or PlasmaOrdered By: Rufina Rubio on 03-19-2023 Potassium [Moles/Vol] 4.6 mmol/L 3.5-5.1 [facility] Protein [Mass/volume] in Ser um or PlasmaOrdered By: Rufina Rubio on 03-19-2023 Protein [Mass/Vol] 6.4 g/dL 6.4-8.9 [facility] RBC Auto (Bld) [#/Vol]Ordere d By: Rufina Rubio on 03-19-2023 RBC (Bld) [#/Vol] 4.38 10*6/uL 3.60-5.00 [facility] Serum or plasma albumin/glob ulin mass ratioOrdered By: Rufina Rubio on 03-19-2023 Albumin/Globulin [Mass ratio] 2.0 {ratio} [facility] Serum or plasma anion gap de terminationOrdered By: Rufina Rubio on 03-19-2023 Anion gap [Moles/Vol] 6.2 mmol/L 6.0-15.0 [facility] Serum or plasma high density lipoprotein (HDL) cholesterol measurementOrdered By: Rufina Rubio on 03-19-2023 Cholesterol in HDL [Mass/Vol] 60 mg/dL 23-92 [facility] Comment on above: HDL CHOL ATP-III CLA SSIFICATION Cardiovascular RiskHDL > or equal to 60 mg/dL LOWHDL < 40 mg/dL HIGH Serum or plasma total choles terol/high density lipoprotein (HDL) cholesterol mass ratOrdered By: Rufina Rubio on 03-19-2023 Cholesterol.total/Katie sterol in HDL [Mass ratio] 2.7 {ratio} <5.0 [facility] Sodium [Moles/volume] in Ser um or PlasmaOrdered By: Rufina Rubio on 03-19-2023 Sodium [Moles/Vol] 139 mmol/L 136-145 [facility] Thyrotropin [Units/volume] i n Serum or PlasmaOrdered By: Rufina Rubio on 03-19-2023 TSH Qn 1.95 m[IU]/L 0.45-5.33 [facility] Thyroxine (T4) free [Mass/vo lume] in Serum or PlasmaOrdered By: Rufina Rubio on 03-19-2023 Free T4 [Mass/Vol] 0.70 ng/dL 0.61-1.12 [facility] Transferrin [Mass/volume] in Serum or PlasmaOrdered By: Rufina Rubio on 03-19-2023 Transferrin [Mass/Vol] 218 mg/dL 203-362 [facility] Triglyceride [Mass/volume] i n Serum or PlasmaOrdered By: Rufina Rubio on 03-19-2023 Triglyceride [Mass/Vol] 99 mg/dL 0-149 [facility] Comment on above: TRIG ATP III CLASSIF ICATIONTRIG less than 150 mg/dL NormalTRIG 150-199 mg/dL Borderline highTRIG 200-500 mg/dL High TRIG greater than 500 mg/dL Very highStandard traceable to the Center for Disease Conrtrol and Prevention (CDC) test method. Urea nitrogen [Mass/volume] in Serum or PlasmaOrdered By: Rufina Rubio on 03-19-2023 Urea nitrogen [Mass/Vol] 7 mg/dL 7-25 [facility] Vitamin B12 ser/plasOrdered By: Rufina Rubio on 03-19-2023 Cobalamin (Vitamin B12) [Mass/Vol] 641 pg/mL 180-914 [facility] WBC Auto (Bld) [#/Vol]Ordere d By: Rufina Rubio on 03-19-2023 WBC (Bld) [#/Vol] 9.6 10*3/uL 3.8-11.6 [facility] Vitamin B12 ser/plasOrdered By: Rufina Rubio on 11-16-2022 Cobalamin (Vitamin B12) [Mass/Vol] 363 pg/mL 180-914 [facility] Vitamin B12 ser/plasOrdered By: Rufina Rubio on 09-21-2022 Cobalamin (Vitamin B12) [Mass/Vol] 548 pg/mL 180-914 [facility] Urine culture routineOrdered By: Rufina Rubio on 08-31-2022 Bacteria identified Cx Nom (U) Escherichia coli [facility] Basophils Auto (Bld) [#/Vol] Ordered By: Salvador Maier on 07-22-2022 Basophils (Bld) [#/Vol] 0.1 10*3/uL 0.0-0.2 [facility] Basophils/100 WBC Auto (Bld) Ordered By: Salvador Maier on 07-22-2022 Basophils/100 WBC (Bld) 1.0 % . [facility] Bilirubin Test strip Ql (U)O rdered By: Salvador Maier on 07-22-2022 Bilirubin Ql (U) Negative Negative [facility] Body fluid albumin measureme nt (mass/volume)Ordered By: Salvador Maier on 07-22-2022 Albumin (Body fld) [Mass/Vol] 3.9 g/dL 3.2-5.5 [facility] Color Auto (U)Ordered By: Nguyễn Maier on 07-22-2022 Color (U) Yellow Yellow [facility] Creatinine and Glomerular fi ltration rate.predicted panel (S/P/Bld)Ordered By: Salvador Maier on 07-22-2022 Creatinine [Mass/Vol] 0.68 mg/dL 0.44-1.03 [facility] Eosinophils Auto (Bld) [#/Vo l]Ordered By: Salvador Maier on 07-22-2022 Eosinophils (Bld) [#/Vol] 0.4 10*3/uL 0.0-0.45 [facility] Eosinophils/100 WBC Auto (Bl d)Ordered By: Salvador Maier on 07-22-2022 Eosinophils/100 WBC (Bld) 4.1 % . [facility] Erythrocyte distribution wid th Auto (RBC) [Ratio]Ordered By: Salvador Maier on 07-22-2022 Erythrocyte distribution width (RBC) [Ratio] 14.7 % 11.9-15.3 [facility] Estimated glomerular filtrat ion rate (GFR) non- AmericanOrdered By: Salvador Maier on 07-22-2022 GFR/1.73 sq M.predicted among non-blacks MDRD (S/P/Bld) [Vol rate/Area] > 60 mL/Min [facility] Globulin Calc (S) [Mass/Vol] Ordered By: Salvador Maier on 07-22-2022 Globulin (S) [Mass/Vol] 2.5 g/dL [facility] HCG ( test) IA.rapi d Ql (U)Ordered By: Salvador Maier on 07-22-2022 HCG ( test) Ql (U) Negative [facility] Hematocrit Auto (Bld) [Volum e fraction]Ordered By: Salvador Maier on 07-22-2022 Hematocrit (Bld) [Volume fraction] 40.9 % 34.0-46.4 [facility] Hemoglobin [Mass/volume] in BloodOrdered By: Salvador Maier on 07-22-2022 Hemoglobin (Bld) [Mass/Vol] 13.3 g/dL 11.8-15.4 [facility] Ketones Auto test strip (U) [Mass/Vol]Ordered By: Salvador Maier on 07-22-2022 Ketones (U) [Mass/Vol] Negative Negative [facility] and C hemistry - challengeOrdered By: Salvador Maier on 07-22-2022 Lipase [Catalytic activity/Vol] 70.0 U/L 22-51 [facility] Leukocytes [#/volume] correc zakia for nucleated erythrocytes in Blood by Automated counOrdered By: Salvador Maier on 07-22-2022 WBC corrected for nucl RBC Auto (Bld) [#/Vol] 8.8 10*3/uL 3.8-11.6 [facility] Lymphocytes Auto (Bld) [#/Vo l]Ordered By: Salvador Maier on 07-22-2022 Lymphocytes (Bld) [#/Vol] 3.1 10*3/uL 1.00-4.8 [facility] Lymphocytes/100 WBC Auto (Bl d)Ordered By: Salvador Maier on 07-22-2022 Lymphocytes/100 WBC (Bld) 35.0 % . [facility] MCH Auto (RBC) [Entitic mass ]Ordered By: Salvador Maier on 07-22-2022 MCH (RBC) [Entitic mass] 30.2 pg 24.7-34.3 [facility] MCHC Auto (RBC) [Mass/Vol]Or dered By: Salvador Maier on 07-22-2022 MCHC (RBC) [Mass/Vol] 32.6 g/dL 32.0-35.0 [facility] MCV Auto (RBC) [Entitic vol] Ordered By: Salvador Maier on 07-22-2022 MCV (RBC) [Entitic vol] 92.6 fL 80-100 [facility] Monocyte distribution width [Entitic volume] in Blood by AutomatedOrdered By: Salvador Maier on 07-22-2022 Monocyte distribution width Auto (Bld) [Entitic vol] 20.62 % 0.00-20.00 [facility] Comment on above: For adults in ED, MD W > 20.0 may be associated with a higher risk of sepsis during the first 12 hrs of hospital admission Monocytes Auto (Bld) [#/Vol] Ordered By: Salvador Maier on 07-22-2022 Monocytes (Bld) [#/Vol] 0.6 10*3/uL 0.0-0.8 [facility] Monocytes/100 WBC Auto (Bld) Ordered By: Salvador Maier on 07-22-2022 Monocytes/100 WBC (Bld) 7.1 % . [facility] Neutrophils Auto (Bld) [#/Vo l]Ordered By: Salvador Maier on 07-22-2022 Neutrophils (Bld) [#/Vol] 4.6 10*3/uL 1.8-7.7 [facility] Neutrophils/100 WBC Auto (Bl d)Ordered By: Salvador Maier on 07-22-2022 Neutrophils/100 WBC (Bld) 52.8 % . [facility] Nitrite Test strip Ql (U)Ord ered By: Salvador Maier on 07-22-2022 Nitrite Ql (U) Negative Negative [facility] No Panel InformationOrdered By: Salvador Maier on 07-22-2022 Estimated GFR () > 60 mL/Min [facility] Comment on above: GFR estimated refere nce range: According to KDOQI guidelines, <60 ml/min/1.73m2 is sufficient to diagnose a patient with chronic kidney disease. Pharmacy Creatinine Clearance (Chem 90.47 [facility] Nucleated erythrocytes [Pres ence] in Blood by Automated countOrdered By: Salvador Maier on 07-22-2022 Nucleated RBC Auto Ql (Bld) 0.2 /100{WBC} 0-0.5 [facility] Platelet mean volume Auto (B ld) [Entitic vol]Ordered By: Salvador Maier on 07-22-2022 Platelet mean volume (Bld) [Entitic vol] 9.1 fL 6.3-10.7 [facility] Platelets Auto (Bld) [#/Vol] Ordered By: Salvador Maier on 07-22-2022 Platelets (Bld) [#/Vol] 202 10*3/uL 150-450 [facility] Protein Auto test strip (U) [Mass/Vol]Ordered By: Salvador Maier on 07-22-2022 Protein (U) [Mass/Vol] Negative Negative [facility] Protein [Mass/volume] in Ser um or PlasmaOrdered By: Salvador Maier on 07-22-2022 Protein [Mass/Vol] 6.4 g/dL 6.1-7.9 [facility] RBC Auto (Bld) [#/Vol]Ordere d By: Salvador Maier on 07-22-2022 RBC (Bld) [#/Vol] 4.42 10*6/uL 3.60-5.00 [facility] Serum or plasma alanine mckeon otransferase measurement without P-5'-P (enzymatic activiOrdered By: Salvador Maier on 07-22-2022 ALT No additional P-5'-P [Catalytic activity/Vol] 12 U/L 10-60 [facility] Serum or plasma albumin/glob ulin mass ratioOrdered By: Salvador Maier on 07-22-2022 Albumin/Globulin [Mass ratio] 1.6 {ratio} [facility] Serum or plasma alkaline kamron sphatase measurement (enzymatic activity/volume)Ordered By: Salvador Maier on 07-22-2022 ALP [Catalytic activity/Vol] 109 U/L 32-92 [facility] Serum or plasma anion gap de terminationOrdered By: Salvador Maier on 07-22-2022 Anion gap [Moles/Vol] 13.2 mmol/L 6.0-15.0 [facility] Serum or plasma aspartate am inotransferase measurement (enzymatic activity/volume)Ordered By: Salvador Maier on 07-22-2022 AST [Catalytic activity/Vol] 16 U/L 10-42 [facility] Serum or plasma calcium kunal urement (mass/volume)Ordered By: Salvador Maier on 07-22-2022 Calcium [Mass/Vol] 8.8 mg/dL 8.2-10.2 [facility] Serum or plasma chloride chacorta surement (moles/volume)Ordered By: Salvador Maier on 07-22-2022 Chloride [Moles/Vol] 103 mmol/L 95-114 [facility] Serum or plasma glucose kunal urement (mass/volume)Ordered By: Salvador Maier on 07-22-2022 Glucose [Mass/Vol] 102 mg/dL 70-100 [facility] Comment on above: ADA recommended refe rence rangeRandom Glucose Reference Range is dependent on time and content of last meal. Glucose of more than 200 mg/dL in a nonstressed, ambulatory subject supports the diagnosis of Diabetes Mellitus. Serum or plasma potassium me asurement (moles/volume)Ordered By: Salvador Maier on 07-22-2022 Potassium [Moles/Vol] 3.2 mmol/L 3.5-5.1 [facility] Serum or plasma sodium measu rement (moles/volume)Ordered By: Salvador Maier on 07-22-2022 Sodium [Moles/Vol] 139 mmol/L 136-146 [facility] Serum or plasma total biliru bin measurement (mass/volume)Ordered By: Salvador Maier on 07-22-2022 Bilirubin [Mass/Vol] 0.3 mg/dL 0.3-1.2 [facility] Serum or plasma total carbon dioxide measurement (moles/volume)Ordered By: Salvador Maier on 07-22-2022 CO2 [Moles/Vol] 26.0 mmol/L 22.0-30.0 [facility] Serum or plasma urea nitroge n measurement (mass/volume)Ordered By: Salvador Maier on 07-22-2022 Urea nitrogen [Mass/Vol] 4 mg/dL 04-03 [facility] Specific gravity Auto test s trip (U) [Rel density]Ordered By: Salvador Maier on 07-22-2022 Specific gravity (U) [Rel density] 1.004 1.001-1.030 [facility] Urine clarity by refractomet ry automatedOrdered By: Salvador Maier on 07-22-2022 Clarity Refractometry automated (U) Clear Clear [facility] Urine glucose measurement by automated test strip (mass/volume)Ordered By: Salvador Maier on 07-22-2022 Glucose Auto test strip (U) [Mass/Vol] Normal mg/dL Normal [facility] Urine hemoglobin detection b y automated test stripOrdered By: Salvador Maier on 07-22-2022 Hemoglobin Auto test strip Ql (U) Negative Negative [facility] Urine leukocyte esterase det ection by automated test stripOrdered By: Salvador Maier on 07-22-2022 Leukocyte esterase Auto test strip Ql (U) Negative Negative [facility] Urobilinogen Auto test strip (U) [Mass/Vol]Ordered By: Salvador Maier on 07-22-2022 Urobilinogen (U) [Mass/Vol] Normal mg/dL Normal [facility] WBC Auto (Bld) [#/Vol]Ordere d By: Salvador Maier on 07-22-2022 WBC (Bld) [#/Vol] 8.8 10*3/uL 3.8-11.6 [facility] pH Auto test strip (U)Ordere d By: Salvador Maier on 07-22-2022 pH (U) 7.0 [pH] 5.0-9.0 [facility] CBC AUTO DIFFon 07-21-2022 BASO # 0.0 103/ul Normal 0.0-0.1 [facility] Comment on above: Performed By: #### C BC ####[facility] [address] [place], [place] [address]Dr. Michaelajean-claude Maxim Basophils/100 WBC (Bld) 0.5 % Normal 0.2-2.0 [facility] Comment on above: Performed By: #### C BC ####[facility] [address] [place], [place] [address]Dr. Ruthie Pan EO # 0.5 103/ul Normal 0.0-0.7 [facility] Comment on above: Performed By: #### C BC ####[facility] [address] [place], [place] [address]Dr. Ruthie Pan Eosinophils/100 WBC (Bld) 5.8 % Normal 0.9-7.0 [facility] Comment on above: Performed By: #### C BC ####[facility] [address] [place], [place] [address]Dr. Ruthie Pan Erythrocyte distribution width (RBC) [Ratio] 14.0 % Normal 11.0-15.0 [facility] Comment on above: Performed By: #### C BC ####[facility] [address] [place], [place] [address]Dr. Ruthie Pan Hematocrit (Bld) [Volume fraction] 38.9 % Normal 36.0-48.0 [facility] Comment on above: Performed By: #### C BC ####[facility] [address] [place], [place] [address]Dr. Ruthie Pan Hemoglobin (Bld) [Mass/Vol] 13.0 g/dL Normal 12.0-16.0 [facility] Comment on above: Performed By: #### C BC ####[facility] [address] [place], [place] [address]Dr. Ruthie Pan IG # 0.02 10e3/ul Normal 0.00-0.03 [facility] Comment on above: Performed By: #### C BC ####[facility] [address] [place] [address]Dr. Ruthie Pan IG % 0.3 % Normal 0.0-0.5 [facility] Comment on above: Performed By: #### C BC ####[facility] [address] [place] [address]Dr. Ruthie Pan LYMPH # 2.8 103/ul Normal 1.2-3.8 [facility] Comment on above: Performed By: #### C BC ####[facility] [address] [place], [place] [address]Dr. Ruthie Pan Lymphocytes/100 WBC (Bld) 36.0 % Normal 20.5-60.0 [facility] Comment on above: Performed By: #### C BC ####[facility] [address] [place], [place] [address]Dr. Ruthie Pan MANUAL DIFF REQ NO Normal [facility] Comment on above: Performed By: #### C BC ####[facility] [address] [place] [address]Dr. Ruthie Maxim MCH (RBC) [Entitic mass] 30.6 pg Normal 26.7-34.0 [facility] Comment on above: Performed By: #### C BC ####[facility] [address] [place], [place] [address]Dr. Ruthie Maxim MCHC (RBC) [Mass/Vol] 33.4 g/dL Normal 29.9-35.2 [facility] Comment on above: Performed By: #### C BC ####[facility] [address] [place], [place] [address]DrGideon Pan MCV (RBC) [Entitic vol] 91.5 fL Normal 81.0-99.0 [facility] Comment on above: Performed By: #### C BC ####[facility] [address] [place], [place] [address]DrGideon Pan MONO # 0.6 103/ul Normal 0.3-0.8 [facility] Comment on above: Performed By: #### C BC ####[facility] [address] [place], [place] [address]Dr. Ruthie Pan Monocytes/100 WBC (Bld) 7.9 % Normal 1.7-12.0 [facility] Comment on above: Performed By: #### C BC ####[facility] [address] [place] [id number]. Michaelajean-claude Pan NEUT # 3.8 103/ul Normal 1.4-6.5 [facility] Comment on above: Performed By: #### C BC ####[facility] [address] [place] [address]Dr. Ruthie Pan Neutrophils/100 WBC (Bld) 49.5 % Normal 43.0-75.0 [facility] Comment on above: Performed By: #### C BC ####[facility] [address] [place] [address]Dr. Ruthie Pan Platelet mean volume (Bld) [Entitic vol] 10.6 fL Normal 9.5-13.5 [facility] Comment on above: Performed By: #### C BC ####[facility] [address] [place] [address]Dr. Ruthie Pan PLT 201 103/ul Normal 150-450 [facility] Comment on above: Performed By: #### C BC ####[facility] [address] [place] [id number]. Ruthie Pan RBC 4.25 106/ul Normal 4.20-5.40 [facility] Comment on above: Performed By: #### C BC ####[facility] [address] [place] [id number]. Ruthie Pan WBC 7.8 103/ul Normal 4.0-11.0 [facility] Comment on above: Performed By: #### C BC ####[facility] [address] [place] [id number] Pan ER URINE PROFILEon 3 Bilirubin Ql (U) Negative Normal NEGATIVE [facility] Comment on above: Performed By: #### U MICRO, ERUR #### [facility] [id number] Ruthie Pan Clarity (U) CLEAR Normal CLEAR [facility] Comment on above: Performed By: #### U MICRO, ERUR #### [facility] [address] [address] [address] Ruthie Pan Color (U) LT. YELLOW Normal YELLOW [facility] Comment on above: Performed By: #### U MICRO, ERUR #### [facility] [address] [address] [address] Ruthie CASTELLOND A micrscopic examination will be performed if indicated. Normal [facility] Comment on above: Performed By: #### U MICRO, ERUR #### [facility] [address] [address] [address] Ruthie Pan Glucose Ql (U) Negative Normal NEGATIVE [facility] Comment on above: Performed By: #### U MICRO, ERUR #### [facility] [address] [place] [address] Dr. Ruthie Pan Hemoglobin Ql (U) TRACE-LYSED Abnormal NEGATIVE [facility] Comment on above: Performed By: #### U MICRO, ERUR #### [facility] [address] [address] [address] Ruthie Pan Ketones Ql (U) Negative Normal NEGATIVE [facility] Comment on above: Performed By: #### U MICRO, ERUR #### [facility] [address] [place] [address] Dr. Ruthie Pan LEUKOCYTES Negative Normal NEGATIVE [facility] Comment on above: Performed By: #### U MICRO, ERUR #### [facility] [address] [address] [address] Ruthie Pan Nitrite Ql (U) Negative Normal NEGATIVE [facility] Comment on above: Performed By: #### U MICRO, ERUR #### [facility] [address] [address] [address] Ruthie Pan pH (U) 6.5 [pH] Normal 5-9 [facility] Comment on above: Performed By: #### U MICRO, ERUR #### [facility] [address] [place] [address] Dr. Ruthie Pan SPEC GRAVITY <=1.005 Abnormal 1.005-<=1.02 5 [facility] Comment on above: Performed By: #### U MICRO, ERUR #### [facility] [address] [address] [address] Ruthie Pan UA PROTEIN Negative Normal NEGATIVE/ TRACE [facility] Comment on above: Performed By: #### U MICRO, ERUR #### [facility] [address] [address] [address] Ruthie Pan UR MICRO IND INDICATED Normal [facility] Comment on above: Performed By: #### U MICRO, ERUR #### [facility] [address] [address] [address] Ruthie Pan Urobilinogen Qn (U) 0.2 {Harjeet'U}/dL Normal 0.2 - 1. 0 [facility] Comment on above: Performed By: #### U MICRO, ERUR #### [facility] [address] [place] [address] Dr. Ruthie Pan LACTATE/LACTIC ACIDon 2022 Lactate [Moles/Vol] 0.7 mmol/L Normal 0.4-1.9 [facility] Comment on above: Performed By: #### L ACT ####[facility] [address] [place], [place] [address]DrGideon Pan LIPASEon 07-21-2022 Lipase [Catalytic activity/Vol] 97.0 U/L Normal 73.0-393.0 [facility] Comment on above: Performed By: #### L IPA, CMP ####[facility] [address] [place] [address]DrGideon Pan PROF 14(COMP METB)on 023 Albumin [Mass/Vol] 3.6 g/dL Normal 3.4-5.0 [facility] Comment on above: Performed By: #### L IPA, CMP ####[facility] [address] [place] [address]DrGideon Pan Albumin/Globulin [Mass ratio] 1.3 {ratio} Normal [facility] Comment on above: Performed By: #### L IPA, CMP ####[facility] [address] [place] [address]Dr. Ruthie Pan ALP [Catalytic activity/Vol] 129 U/L Critically high 46-116 [facility] Comment on above: Performed By: #### L IPA, CMP ####[facility] [address] [place] [address]Dr. Ruthie Pan ALT [Catalytic activity/Vol] 13 U/L Critically low 14-59 [facility] Comment on above: Performed By: #### L IPA, CMP ####[facility] [address] [place], [place] [address]Dr. Ruthie Pan Anion gap [Moles/Vol] 10.0 mmol/L Normal [facility] Comment on above: Performed By: #### L IPA, CMP ####[facility] [address] [place], [place] [address]Dr. Michaelajean-claude Pan AST [Catalytic activity/Vol] 13 U/L Critically low 15-37 [facility] Comment on above: Performed By: #### L IPA, CMP ####[facility] [address] [place], [place] [address]Dr. Ruthie Pan Bilirubin [Mass/Vol] 0.2 mg/dL Normal 0.2-1.0 [facility] Comment on above: Performed By: #### L IPA, CMP ####[facility] [address] [place], [place] [address]Dr. Ruthie Pan Calcium [Mass/Vol] 8.5 mg/dL Normal 8.5-10.1 [facility] Comment on above: Performed By: #### L IPA, CMP ####[facility] [address] [place], [place] [address]Dr. Ruthie Pan Chloride [Moles/Vol] 104 mmol/L Normal 98-107 [facility] Comment on above: Performed By: #### L IPA, CMP ####[facility] [address] [place], [place] [address]Dr. Ruthie Pan CO2 [Moles/Vol] 29.6 mmol/L Normal 21.0-32.0 [facility] Comment on above: Performed By: #### L IPA, CMP ####[facility] [address] [place] [address]Dr. Ruthie Pan Creatinine [Mass/Vol] 0.67 mg/dL Normal 0.55-1.02 [facility] Comment on above: Performed By: #### L IPA, CMP ####[facility] [address] [place] [id number]. Ruthie Pan EGFR-AF BELIZEAN >60 Normal >=60 [facility] Comment on above: Performed By: #### L IPA, CMP ####[facility] [address] [place] [id number]. Ruthie Maxim EGFR-NON AF BELIZEAN >60 Normal >=60 [facility] Comment on above: Performed By: #### L IPA, CMP ####[facility] [address] [place] [address]Dr. Ruthie Maxim Globulin (S) [Mass/Vol] 2.8 g/dL Normal [facility] Comment on above: Performed By: #### L IPA, CMP ####[facility] [address] [place] [id number]. Michaelajean-claude Maxim Glucose [Mass/Vol] 106 mg/dL Normal 74-106 [facility] Comment on above: Performed By: #### L IPA, CMP ####[facility] [address] [place] [address]Dr. Ruthie Maxim Potassium [Moles/Vol] 3.6 mmol/L Normal 3.5-5.1 [facility] Comment on above: Performed By: #### L IPA, CMP ####[facility] [address] [place] [id number]. Ruthie Pan Protein [Mass/Vol] 6.4 g/dL Normal 6.4-8.2 [facility] Comment on above: Performed By: #### L IPA, CMP ####[facility] [address] [place] [address]Dr. Ruthie Pan Sodium [Moles/Vol] 140 mmol/L Normal 136-145 [facility] Comment on above: Performed By: #### L IPA, CMP ####[facility] [address] [place] [id number] Pan Urea nitrogen [Mass/Vol] 4.0 mg/dL Critically low 7.0-18.0 [facility] Comment on above: Performed By: #### L IPA, CMP ####[facility] [address] [place] [id number]. Ruthie Pan Urea nitrogen/Creatinine [Mass ratio] 6.0 mg/mg Normal [facility] Comment on above: Performed By: #### L IPA, CMP ####[facility] [address] [place] [address]Dr. Ruthie Pan URINE MICROSCOPIC ONLYon BACTERIA NONE SEEN Normal NONE SEEN [facility] Comment on above: Performed By: #### U MICRO, ERUR #### [facility] [address] [address] [address] Ruthie Pan Bacteria identified Cx Nom (U) NOT INDICATED Normal [facility] Comment on above: Performed By: #### U MICRO, ERUR #### [facility] [address] [address] [address] Ruthie Pan CAST NONE SEEN Normal NONE SEEN [facility] Comment on above: Performed By: #### U MICRO, ERUR #### [facility] [address] [address] [address] Ruthie Pan Crystals LM Nom (Urine sed) NONE SEEN Normal NONE SEEN [facility] Comment on above: Performed By: #### U MICRO, ERUR #### [facility] [address] [address] [address] Ruthie Pan Epithelial cells LM Ql (Urine sed) FEW Abnormal NONE SEEN /RARE [facility] Comment on above: Performed By: #### U MICRO, ERUR #### [facility] [address] [address] [address] Ruthie Pan MUCOUS NONE SEEN Normal NONE SEEN [facility] Comment on above: Performed By: #### U MICRO, ERUR #### [facility] [address] [address] [address] Ruthie Pan RBC 0-2 Normal 0-2 [facility] Comment on above: Performed By: #### U MICRO, ERUR #### [facility] [address] [address] [address] Ruthie Pan WBC 0-2 Abnormal NONE SEEN [facility] Comment on above: Performed By: #### U MICRO, ERUR #### [facility] [address] [address] [address] Ruthie Pan US SINGLE QUAD RT [...] KAE VILLALPANDO Date: 2022-07-21 20:21 Normal [facility] Albumin [Mass/volume] in Ser um or PlasmaOrdered By: Rufina Rubio on 07-20-2022 Albumin [Mass/Vol] 3.8 g/dL 3.2-5.5 [facility] Basophils Auto (Bld) [#/Vol] Ordered By: Rufina Rubio on 07-20-2022 Basophils (Bld) [#/Vol] 0.1 10*3/uL 0.0-0.2 [facility] Basophils/100 WBC Auto (Bld) Ordered By: Rufina Rubio on 07-20-2022 Basophils/100 WBC (Bld) 1.2 % . [facility] Cholesterol [Mass/volume] in Serum or PlasmaOrdered By: Rufina Rubio on 07-20-2022 Cholesterol [Mass/Vol] 183 mg/dL 140-200 [facility] on above: Chol less than 200 m g/dl low riskChol 201-239 mg/dl borderline riskChol 240 mg/dl and greater high risk Cholesterol in LDL Calc [Mas s/Vol]Ordered By: Rufina Rubio on 07-20-2022 Cholesterol in LDL [Mass/Vol] 104 mg/dL 0-100 [facility] Comment on above: LDL ATP III CLASSIFI CATIONLDL less than 100 mg/dL OptimalLDL 100-129 mg/dL Near or above optimalLDL 130-159 mg/dL Borderline highLDL 160-189 mg/dL HighLDL greater than 189 mg/dL Very high Cholesterol in VLDL Calc [Ma ss/Vol]Ordered By: Rufina Rubio on 07-20-2022 Cholesterol in VLDL [Mass/Vol] 26 mg/dL [facility] Creatinine and Glomerular fi ltration rate.predicted panel (S/P/Bld)Ordered By: Rufina Rubio on 07-20-2022 Creatinine [Mass/Vol] 0.64 mg/dL 0.44-1.03 [facility] Eosinophils Auto (Bld) [#/Vo l]Ordered By: Rufina Rubio on 07-20-2022 Eosinophils (Bld) [#/Vol] 0.3 10*3/uL 0.0-0.45 [facility] Eosinophils/100 WBC Auto (Bl d)Ordered By: Rufina Rubio on 07-20-2022 Eosinophils/100 WBC (Bld) 3.0 % . [facility] Erythrocyte distribution wid th Auto (RBC) [Ratio]Ordered By: Rufina Rubio on 07-20-2022 Erythrocyte distribution width (RBC) [Ratio] 14.5 % 11.9-15.3 [facility] Estimated glomerular filtrat ion rate (GFR) non- AmericanOrdered By: Rufina Rubio on 07-20-2022 GFR/1.73 sq M.predicted among non-blacks MDRD (S/P/Bld) [Vol rate/Area] > 60 mL/Min [facility] Globulin Calc (S) [Mass/Vol] Ordered By: Rufina Rubio on 07-20-2022 Globulin (S) [Mass/Vol] 2.4 g/dL [facility] Hematocrit Auto (Bld) [Volum e fraction]Ordered By: Rufina Rubio on 07-20-2022 Hematocrit (Bld) [Volume fraction] 40.8 % 34.0-46.4 [facility] Hemoglobin [Mass/volume] in BloodOrdered By: Rufina Rubio on 07-20-2022 Hemoglobin (Bld) [Mass/Vol] 13.4 g/dL 11.8-15.4 [facility] - Chemistry and C hemistry - challengeOrdered By: Rufina Rubio on 07-20-2022 Cobalamin (Vitamin B12) [Mass/Vol] 137 pg/mL 180-914 [facility] Lipase [Catalytic activity/Vol] 53.0 U/L 22-51 [facility] Leukocytes [#/volume] correc zakia for nucleated erythrocytes in Blood by Automated counOrdered By: Rufina Rubio on 07-20-2022 WBC corrected for nucl RBC Auto (Bld) [#/Vol] 8.5 10*3/uL 3.8-11.6 [facility] Lymphocytes Auto (Bld) [#/Vo l]Ordered By: Rufina Rubio on 07-20-2022 Lymphocytes (Bld) [#/Vol] 3.1 10*3/uL 1.00-4.8 [facility] Lymphocytes/100 WBC Auto (Bl d)Ordered By: Rufina Rubio on 07-20-2022 Lymphocytes/100 WBC (Bld) 36.6 % . [facility] MCH Auto (RBC) [Entitic mass ]Ordered By: Rufina Rubio on 07-20-2022 MCH (RBC) [Entitic mass] 30.4 pg 24.7-34.3 [facility] MCHC Auto (RBC) [Mass/Vol]Or dered By: Rufina Rubio on 07-20-2022 MCHC (RBC) [Mass/Vol] 32.8 g/dL 32.0-35.0 [facility] MCV Auto (RBC) [Entitic vol] Ordered By: Rufina Rubio on 07-20-2022 MCV (RBC) [Entitic vol] 92.7 fL 80-100 [facility] Monocytes Auto (Bld) [#/Vol] Ordered By: Rufina Rubio on 07-20-2022 Monocytes (Bld) [#/Vol] 0.6 10*3/uL 0.0-0.8 [facility] Monocytes/100 WBC Auto (Bld) Ordered By: Rufina Rubio on 07-20-2022 Monocytes/100 WBC (Bld) 7.0 % . [facility] Neutrophils Auto (Bld) [#/Vo l]Ordered By: Rufina Rubio on 07-20-2022 Neutrophils (Bld) [#/Vol] 4.4 10*3/uL 1.8-7.7 [facility] Neutrophils/100 WBC Auto (Bl d)Ordered By: Rufina Rubio on 07-20-2022 Neutrophils/100 WBC (Bld) 52.2 % . [facility] No Panel InformationOrdered By: Rufina Rubio on 07-20-2022 Estimated GFR () > 60 mL/Min [facility] Comment on above: GFR estimated refere nce range: According to KDOQI guidelines, <60 ml/min/1.73m2 is sufficient to diagnose a patient with chronic kidney disease. Pharmacy Creatinine Clearance (Chem N/A [facility] Nucleated erythrocytes [Pres ence] in Blood by Automated countOrdered By: Rufina Rubio on 07-20-2022 Nucleated RBC Auto Ql (Bld) 0.2 /100{WBC} 0-0.5 [facility] Platelet mean volume Auto (B ld) [Entitic vol]Ordered By: Rufina Rubio on 07-20-2022 Platelet mean volume (Bld) [Entitic vol] 10.2 fL 6.3-10.7 [facility] Platelets Auto (Bld) [#/Vol] Ordered By: Rufina Rubio on 07-20-2022 Platelets (Bld) [#/Vol] 183 10*3/uL 150-450 [facility] Protein [Mass/volume] in Ser um or PlasmaOrdered By: Rufina Rubio on 07-20-2022 Protein [Mass/Vol] 6.2 g/dL 6.1-7.9 [facility] RBC Auto (Bld) [#/Vol]Ordere d By: Rufina Rubio on 07-20-2022 RBC (Bld) [#/Vol] 4.40 10*6/uL 3.60-5.00 [facility] Serum or plasma alanine mckeon otransferase measurement without P-5'-P (enzymatic activiOrdered By: Rufina Rubio on 07-20-2022 ALT No additional P-5'-P [Catalytic activity/Vol] 10 U/L 10-60 [facility] Serum or plasma albumin/glob ulin mass ratioOrdered By: Rufina Rubio on 07-20-2022 Albumin/Globulin [Mass ratio] 1.6 {ratio} [facility] Serum or plasma alkaline kamron sphatase measurement (enzymatic activity/volume)Ordered By: Rufina Rubio on 07-20-2022 ALP [Catalytic activity/Vol] 107 U/L 32-92 [facility] Serum or plasma amylase kunal urement (enzymatic activity/volume)Ordered By: Rufina Rubio on 07-20-2022 Amylase [Catalytic activity/Vol] 129 U/L 28-100 [facility] Serum or plasma anion gap de terminationOrdered By: Rufina Rubio on 07-20-2022 Anion gap [Moles/Vol] 9.5 mmol/L 6.0-15.0 [facility] Serum or plasma aspartate am inotransferase measurement (enzymatic activity/volume)Ordered By: Rufina Rubio on 07-20-2022 AST [Catalytic activity/Vol] 13 U/L 10-42 [facility] Serum or plasma calcium kunal urement (mass/volume)Ordered By: Rufina Rubio on 07-20-2022 Calcium [Mass/Vol] 8.7 mg/dL 8.2-10.2 [facility] Serum or plasma chloride chacorta surement (moles/volume)Ordered By: Rufina Rubio on 07-20-2022 Chloride [Moles/Vol] 107 mmol/L 95-114 [facility] Serum or plasma glucose kunal urement (mass/volume)Ordered By: Rufina Rubio on 07-20-2022 Glucose [Mass/Vol] 82 mg/dL 70-100 [facility] Comment on above: ADA recommended refe rence rangeRandom Glucose Reference Range is dependent on time and content of last meal. Glucose of more than 200 mg/dL in a nonstressed, ambulatory subject supports the diagnosis of Diabetes Mellitus. Serum or plasma high density lipoprotein (HDL) cholesterol measurementOrdered By: Rufina Rubio on 07-20-2022 Cholesterol in HDL [Mass/Vol] 53 mg/dL 35-85 [facility] Comment on above: HDL CHOL ATP-III CLA SSIFICATION Cardiovascular RiskHDL > or equal to 60 mg/dL LOWHDL < 40 mg/dL HIGH Serum or plasma potassium me asurement (moles/volume)Ordered By: Rufina Rubio on 07-20-2022 Potassium [Moles/Vol] 3.9 mmol/L 3.5-5.1 [facility] Serum or plasma sodium measu rement (moles/volume)Ordered By: Rufina Rubio on 07-20-2022 Sodium [Moles/Vol] 138 mmol/L 136-146 [facility] Serum or plasma total biliru bin measurement (mass/volume)Ordered By: Rufina Rubio on 07-20-2022 Bilirubin [Mass/Vol] 0.3 mg/dL 0.3-1.2 [facility] Serum or plasma total carbon dioxide measurement (moles/volume)Ordered By: Rufina Rubio on 07-20-2022 CO2 [Moles/Vol] 25.4 mmol/L 22.0-30.0 [facility] Serum or plasma total choles terol/high density lipoprotein (HDL) cholesterol mass ratOrdered By: Rufina Rubio on 07-20-2022 Cholesterol.total/Katie sterol in HDL [Mass ratio] 3.5 {ratio} <5.0 [facility] Serum or plasma urea nitroge n measurement (mass/volume)Ordered By: Rufina Rubio on 07-20-2022 Urea nitrogen [Mass/Vol] 5 mg/dL 9-23 [facility] TSH DL <= 0.005 mIU/L QnOrde red By: Rufina Rubio on 07-20-2022 TSH Qn 4.78 m[IU]/L 0.45-5.33 [facility] Thyroxine (T4) free [Mass/vo lume] in Serum or PlasmaOrdered By: Rufina Rubio on 07-20-2022 Free T4 [Mass/Vol] 0.80 ng/dL 0.61-1.12 [facility] Triglyceride [Mass/volume] i n Serum or PlasmaOrdered By: Rufina Rubio on 07-20-2022 Triglyceride [Mass/Vol] 132 mg/dL 35-149 [facility] Comment on above: TRIG ATP III CLASSIF ICATIONTRIG less than 150 mg/dL NormalTRIG 150-199 mg/dL Borderline highTRIG 200-500 mg/dL High TRIG greater than 500 mg/dL Very highStandard traceable to the Center for Disease Conrtrol and Prevention (CDC) test method. Urine culture routineOrdered By: Rufina Rubio on 07-20-2022 Bacteria identified Cx Nom (U) Escherichia coli [facility] Bacteria identified Cx Nom (U) Escherichia coli [facility] WBC Auto (Bld) [#/Vol]Ordere d By: Rufina Rubio on 07-20-2022 WBC (Bld) [#/Vol] 8.5 10*3/uL 3.8-11.6 [facility] CBC AUTO DIFFon 06-24-2022 BASO # 0.0 103/ul Normal 0.0-0.1 [facility] Comment on above: Performed By: #### C BC #### [facility] [address] [place], [place] [address] Dr. Ruthie Pan Basophils/100 WBC (Bld) 0.5 % Normal 0.2-2.0 [facility] Comment on above: Performed By: #### C BC #### [facility] [address] [place] [address] Dr. Ruthie Pan EO # 0.1 103/ul Normal 0.0-0.7 [facility] Comment on above: Performed By: #### C BC #### [facility] [address] [place] [address] Dr. Ruthie Pan Eosinophils/100 WBC (Bld) 1.6 % Normal 0.9-7.0 [facility] Comment on above: Performed By: #### C BC #### [facility] [address] [place] [address] Dr. Ruthie Pan Erythrocyte distribution width (RBC) [Ratio] 13.2 % Normal 11.0-15.0 [facility] Comment on above: Performed By: #### C BC #### [facility] [address] [place] [address] Dr. Ruthie Pan Hematocrit (Bld) [Volume fraction] 41.5 % Normal 36.0-48.0 [facility] Comment on above: Performed By: #### C BC #### [facility] [address] [place] [address] Dr. Ruthie Pan Hemoglobin (Bld) [Mass/Vol] 13.9 g/dL Normal 12.0-16.0 [facility] Comment on above: Performed By: #### C BC #### [facility] [address] [place] [address] Dr. Ruthie Pan IG # 0.02 10e3/ul Normal 0.00-0.03 [facility] Comment on above: Performed By: #### C BC #### [facility] [address] [place] [address] Dr. Ruthie Pan IG % 0.2 % Normal 0.0-0.5 [facility] Comment on above: Performed By: #### C BC #### [facility] [address] [place] [address] Dr. Ruthie Pan LYMPH # 2.5 103/ul Normal 1.2-3.8 [facility] Comment on above: Performed By: #### C BC #### [facility] [address] [place] [address] Dr. Ruthie Pan Lymphocytes/100 WBC (Bld) 28.8 % Normal 20.5-60.0 [facility] Comment on above: Performed By: #### C BC #### [facility] [address] [place] [address] Dr. Ruthie Pan MANUAL DIFF REQ NO Normal [facility] Comment on above: Performed By: #### C BC #### [facility] [address] [place] [address] Dr. Ruthie Pan MCH (RBC) [Entitic mass] 30.3 pg Normal 26.7-34.0 [facility] Comment on above: Performed By: #### C BC #### [facility] [address] [place] [address] Dr. Ruthie Pan MCHC (RBC) [Mass/Vol] 33.5 g/dL Normal 29.9-35.2 [facility] Comment on above: Performed By: #### C BC #### [facility] [address] [place] [address] Dr. Ruthie Pan MCV (RBC) [Entitic vol] 90.6 fL Normal 81.0-99.0 [facility] Comment on above: Performed By: #### C BC #### [facility] [address] [place] [address] Dr. Ruthie Pan MONO # 0.6 103/ul Normal 0.3-0.8 [facility] Comment on above: Performed By: #### C BC #### [facility] [address] [place] [address] Dr. Ruthie Pan Monocytes/100 WBC (Bld) 6.4 % Normal 1.7-12.0 [facility] Comment on above: Performed By: #### C BC #### [facility] [address] [place] [address] Dr. Ruthie Pan NEUT # 5.5 103/ul Normal 1.4-6.5 [facility] Comment on above: Performed By: #### C BC #### [facility] [address] [place] [address] Dr. Ruthie Pan Neutrophils/100 WBC (Bld) 62.5 % Normal 43.0-75.0 [facility] Comment on above: Performed By: #### C BC #### [facility] [address] [place] [address] Dr. Ruthie Pan Platelet mean volume (Bld) [Entitic vol] 11.1 fL Normal 9.5-13.5 [facility] Comment on above: Performed By: #### C BC #### [facility] [address] [place] [address] Dr. Ruthie Pan PLT 150 103/ul Normal 150-450 [facility] Comment on above: Performed By: #### C BC #### [facility] [address] [place] [address] Dr. Ruthie Pan RBC 4.58 106/ul Normal 4.20-5.40 [facility] Comment on above: Performed By: #### C BC #### [facility] [address] [place] [address] Dr. Ruthie Pan WBC 8.8 103/ul Normal 4.0-11.0 [facility] Comment on above: Performed By: #### C BC #### [facility] [address] [place] [address] Dr. Ruthie Pan Covid-19 PCR ([facility])on 06-11 SARS-CoV-2 (COVID-19) RNA MICHAEL+probe Ql (Unsp spec) Not detected Normal NOT DETECTED [facility] Comment on above: Result Comment: This test is not yet approved or cleared by the [place] FDA. When there are no FDA-approved or cleared tests available, and other criteria are met, FDA can make tests available under an emergency access mechanism called an Emergency Use Authorization (EUA). The EUA for this test is supported by the [employer] of Health and Human Service's (HHS's) declaration [...] with SARS-CoV-2. Performed By: #### C VDTB ####[facility] [address] [place], [place] [address]Dr. Ruthie Pan INFLUENZA A AND B AGon 06-24 [facility] Normal [facility] Comment on above: Result Comment: Nega tive for Flu A protein angiten. Infection due to Flu A cannot be ruled out. Flu A angiten in the sample may be below the detection limit of the test. Performed By: #### I NFLUAB ####[facility] [address] [place], [place] [address]Dr. Ruthie Pan INFLUBNEG SEE BELOW Normal [facility] Comment on above: Result Comment: Nega tive for Flu B protein antigen. Infection due to Flu B cannot be ruled out. Flu B antigen in the sample may be below the detection limit of the test. Performed By: #### I NFLUAB ####[facility] [address] [place], [place] [address]Dr. Ruthie Pan INFLUENZA A AG Negative Normal NEGATIVE SEE COMMENT [facility] Comment on above: Performed By: #### I NFLUAB ####[facility] [address] [place], [place] [address]Dr. [facility] INFLUENZA B AG Negative Normal NEGATIVE SEE COMMENT [facility] Comment on above: Performed By: #### I NFLUAB ####[facility] [address] [place], [place] [address]Dr. Ruthie Pan INTERNAL CONTROLS Within Normal Limits Normal Wi thin Normal Limits [facility] Comment on above: Performed By: #### I NFLUAB ####[facility] [address] [place], [place] [address]Dr. Ruthie Pan PROF 14(COMP METB)on 022 Albumin [Mass/Vol] 3.7 g/dL Normal 3.4-5.0 [facility] Comment on above: Performed By: #### C MP ####[facility] [address] [place] [id number]. Ruthie Pan Albumin/Globulin [Mass ratio] 1.1 {ratio} Normal [facility] Comment on above: Performed By: #### C MP ####[facility] [address] [place] [address]Dr. Ruthie Pan ALP [Catalytic activity/Vol] 125 U/L Critically high 46-116 [facility] Comment on above: Performed By: #### C MP ####[facility] [address] [place] [address]Dr. Ruthie Pan ALT [Catalytic activity/Vol] 17 U/L Normal 14-59 [facility] Comment on above: Performed By: #### C MP ####[facility] [address] [place], [place] [address]Dr. Ruthie Pan Anion gap [Moles/Vol] 9.8 mmol/L Normal [facility] Comment on above: Performed By: #### C MP ####[facility] [address] [place], [place] [address]Dr. Ruthie Maxim AST [Catalytic activity/Vol] 16 U/L Normal 15-37 [facility] Comment on above: Performed By: #### C MP ####[facility] [address] [place], [place] [address]Dr. Ruthie Maxim Bilirubin [Mass/Vol] 0.3 mg/dL Normal 0.2-1.0 [facility] Comment on above: Performed By: #### C MP ####[facility] [address] [place], [place] [address]Dr. Ruthie Maxim Calcium [Mass/Vol] 8.7 mg/dL Normal 8.5-10.1 [facility] Comment on above: Performed By: #### C MP ####[facility] [address] [place], [place] [address]Dr. Ruthie Maxim Chloride [Moles/Vol] 103 mmol/L Normal 98-107 [facility] Comment on above: Performed By: #### C MP ####[facility] [address] [place], [place] [address]Dr. Ruthie Pan CO2 [Moles/Vol] 28.3 mmol/L Normal 21.0-32.0 [facility] Comment on above: Performed By: #### C MP ####[facility] [address] [place], [place] [address]Dr. Ruthie Pan Creatinine [Mass/Vol] 0.62 mg/dL Normal 0.55-1.02 [facility] Comment on above: Performed By: #### C MP ####[facility] [address] [place], [place] [address]Dr. Michaelajean-claude Pan EGFR-AF BELIZEAN >60 Normal >=60 [facility] Comment on above: Performed By: #### C MP ####[facility] [address] [place], [place] [address]Dr. Ruthie Pan EGFR-NON AF BELIZEAN >60 Normal >=60 [facility] Comment on above: Performed By: #### C MP ####[facility] [address] [place], [place] [address]Dr. Ruthie Pan Globulin (S) [Mass/Vol] 3.4 g/dL Normal [facility] Comment on above: Performed By: #### C MP ####[facility] [address] [place], [place] [address]Dr. Ruthie Pan Glucose [Mass/Vol] 103 mg/dL Normal 74-106 [facility] Comment on above: Performed By: #### C MP ####[facility] [address] [place], [place] [address]Dr. Ruthie Pan Potassium [Moles/Vol] 3.1 mmol/L Critically low 3.5-5.1 [facility] Comment on above: Performed By: #### C MP ####[facility] [address] [place], [place] [address]Dr. Ruthie Pan Protein [Mass/Vol] 7.1 g/dL Normal 6.4-8.2 [facility] Comment on above: Performed By: #### C MP ####[facility] [address] [place], [place] [address]Dr. Ruthie Pan Sodium [Moles/Vol] 140 mmol/L Normal 136-145 [facility] Comment on above: Performed By: #### C MP ####[facility] [address] [place] [address]Dr. Ruthie Pan Urea nitrogen [Mass/Vol] 6.0 mg/dL Critically low 7.0-18.0 [facility] Comment on above: Performed By: #### C MP ####[facility] [address] [place] [address]Dr. Ruthie Pan Urea nitrogen/Creatinine [Mass ratio] 9.7 mg/mg Normal [facility] Comment on above: Performed By: #### C MP ####[facility] [address] [place] [address]Dr. Ruthie Pan Urine culture routineOrdered By: Rufina Rubio on 06-09-2022 Bacteria identified Cx Nom (U) Escherichia coli [facility] Urine culture routineOrdered By: Rufina Rubio on 04-16-2022 Bacteria identified Cx Nom (U) Escherichia coli [facility] AMYLASEon 11-24-2021 Amylase [Catalytic activity/Vol] 85 U/L Normal 25-115 [facility] Comment on above: Performed By: #### C MPROSALIA LIPA #### [facility] [address] [place] [address] [address] Ruthie Pan CBC AUTO DIFFon 11-24-2021 BASO # 0.0 103/ul Normal 0.0-0.1 [facility] Comment on above: Performed By: #### C BC ####[facility] [address] [place] [address]Dr. Ruthie Pna Basophils/100 WBC (Bld) 0.4 % Normal 0.2-2.0 [facility] Comment on above: Performed By: #### C BC ####[facility] [address] [place] [address]DrGideon Pan EO # 0.2 103/ul Normal 0.0-0.7 [facility] Comment on above: Performed By: #### C BC ####[facility] [address] [place] [address]Dr. Ruthie Pan Eosinophils/100 WBC (Bld) 1.6 % Normal 0.9-7.0 [facility] Comment on above: Performed By: #### C BC ####[facility] [address] [place], [place] [address]Dr. Ruthie Pan Erythrocyte distribution width (RBC) [Ratio] 13.8 % Normal 11.0-15.0 [facility] Comment on above: Performed By: #### C BC ####[facility] [address] [place], [place] [address]Dr. Ruthie Pan Hematocrit (Bld) [Volume fraction] 38.5 % Normal 36.0-48.0 [facility] Comment on above: Performed By: #### C BC ####[facility] [address] [place], [place] [address]Dr. Ruthie Pan Hemoglobin (Bld) [Mass/Vol] 12.3 g/dL Normal 12.0-16.0 [facility] Comment on above: Performed By: #### C BC ####[facility] [address] [place] [address]Dr. Ruthie Pan IG # 0.04 10e3/ul Critically high 0.00-0.03 [facility] Comment on above: Performed By: #### C BC ####[facility] [address] [place] [address]Dr. Ruthie Pan IG % 0.4 % Normal 0.0-0.5 [facility] Comment on above: Performed By: #### C BC ####[facility] [address] [place], [place] [address]Dr. Ruthie Pan LYMPH # 3.4 103/ul Normal 1.2-3.8 [facility] Comment on above: Performed By: #### C BC ####[facility] [address] [place], [place] [address]Dr. Ruthie Pan Lymphocytes/100 WBC (Bld) 31.2 % Normal 20.5-60.0 [facility] Comment on above: Performed By: #### C BC ####[facility] [address] [place] [address]Dr. Ruthie Pan MANUAL DIFF REQ NO Normal [facility] Comment on above: Performed By: #### C BC ####[facility] [address] [place] [address]Dr. Ruthie Pan MCH (RBC) [Entitic mass] 31.1 pg Normal 26.7-34.0 [facility] Comment on above: Performed By: #### C BC ####[facility] [address] [place] [address]Dr. Ruthie Pan MCHC (RBC) [Mass/Vol] 31.9 g/dL Normal 29.9-35.2 [facility] Comment on above: Performed By: #### C BC ####[facility] [address] [place] [address]Dr. Ruthie Maxim MCV (RBC) [Entitic vol] 97.5 fL Normal 81.0-99.0 [facility] Comment on above: Performed By: #### C BC ####[facility] [address] [place] [address]Dr. Ruthie Maxim MONO # 0.9 103/ul Critically high 0.3-0.8 [facility] Comment on above: Performed By: #### C BC ####[facility] [address] [place], [place] [address]Dr. Ruthie Pan Monocytes/100 WBC (Bld) 8.0 % Normal 1.7-12.0 [facility] Comment on above: Performed By: #### C BC ####[facility] [address] [place] [address]Dr. Ruthie Pan NEUT # 6.4 103/ul Normal 1.4-6.5 [facility] Comment on above: Performed By: #### C BC ####[facility] [address] [place], [place] [address]Dr. Ruthie Pan Neutrophils/100 WBC (Bld) 58.4 % Normal 43.0-75.0 [facility] Comment on above: Performed By: #### C BC ####[facility] [address] [place], [place] [address]Wx. Ruthie Pan Platelet mean volume (Bld) [Entitic vol] 10.7 fL Normal 9.5-13.5 [facility] Comment on above: Performed By: #### C BC ####[facility] [address] [place], [place] [address]Qy. Ruthie Pan PLT 207 103/ul Normal 150-450 [facility] Comment on above: Performed By: #### C BC ####[facility] [address] [place], [place] [address]El. Ruthie Pan RBC 3.95 106/ul Critically low 4.20-5.40 [facility] Comment on above: Performed By: #### C BC ####[facility] [address] [place], [place] [address]Lq. Ruthie Pan WBC 11.0 103/ul Normal 4.0-11.0 [facility] Comment on above: Performed By: #### C BC ####[facility] [address] [place], [place] [address] Pan CT ABD/PELV W CONon 11-25-19 [...] LUDIN ANGELES Date: 2021-11-24 03:59 Normal [facility] LACTATE/LACTIC ACIDon 2021 Lactate [Moles/Vol] 1.0 mmol/L Normal 0.4-1.9 [facility] Comment on above: Performed By: #### L ACT #### [facility] [address] [place] [address] Dr. Ruthie Pan LIPASEon 11-24-2021 Lipase [Catalytic activity/Vol] 123.0 U/L Normal 73.0-393.0 [facility] Comment on above: Performed By: #### C MP, ROSALIA, LIPA #### [facility] [address] [place] [address] Dr. Ruthie Pan PROF 14(COMP METB)on 022 Albumin [Mass/Vol] 3.3 g/dL Critically low 3.4-5.0 [facility] Comment on above: Performed By: #### C MP, ROSALIA, LIPA #### [facility] [address] [place] [address] Dr. Ruthie Pan Albumin/Globulin [Mass ratio] 1.1 {ratio} Normal [facility] Comment on above: Performed By: #### C MP, ROSALIA, LIPA #### [facility] [address] [place] [address] Dr. Ruthie Pan ALP [Catalytic activity/Vol] 139 U/L Critically high 46-116 [facility] Comment on above: Performed By: #### C MP, ROSALIA, LIPA #### [facility] [address] [place] [address] Dr. Ruthie Pan ALT [Catalytic activity/Vol] 17 U/L Normal 14-59 [facility] Comment on above: Performed By: #### C MP, ROSALIA, LIPA #### [facility] [address] [place] [address] Dr. Rutihe Pan Anion gap [Moles/Vol] 10.5 mmol/L Normal [facility] Comment on above: Performed By: #### C MP, ROSALIA, LIPA #### [facility] [address] [place] [address] Dr. Ruthie Pan AST [Catalytic activity/Vol] 14 U/L Critically low 15-37 [facility] Comment on above: Performed By: #### C NARESH ROSALIA, LIPA #### [facility] [address] [place] [address] Dr. Ruthie Pan Bilirubin [Mass/Vol] 0.2 mg/dL Normal 0.2-1.0 [facility] Comment on above: Performed By: #### C MP ROSALIA, LIPA #### [facility] [address] [place] [address] Dr. Ruthie Pan Calcium [Mass/Vol] 8.3 mg/dL Critically low 8.5-10.1 [facility] Comment on above: Performed By: #### C NARESH ROSALIA, LIPA #### [facility] [address] [place] [address] Dr. Ruthie Pan Chloride [Moles/Vol] 103 mmol/L Normal 98-107 [facility] Comment on above: Performed By: #### C NARESH ROSALIA, LIPA #### [facility] [address] [place] [address] Dr. Ruthie Pan CO2 [Moles/Vol] 27.9 mmol/L Normal 21.0-32.0 [facility] Comment on above: Performed By: #### C NARESH ROSALIA, LIPA #### [facility] [address] [place] [address] Dr. Ruthie Pan Creatinine [Mass/Vol] 0.71 mg/dL Normal 0.55-1.02 [facility] Comment on above: Performed By: #### C NARESH ROSALIA, LIPA #### [facility] [address] [place] [address] Dr. Ruthie Pan EGFR-AF BELIZEAN >60 Normal >=60 [facility] Comment on above: Performed By: #### C NARESH ROSALIA, LIPA #### [facility] [address] [place] [address] Dr. Ruthie Pan EGFR-NON AF BELIZEAN >60 Normal >=60 [facility] Comment on above: Performed By: #### C MP, ROSALIA, LIPA #### [facility] [address] [place] [address] Dr. Ruthie Pan Globulin (S) [Mass/Vol] 3.1 g/dL Normal [facility] Comment on above: Performed By: #### C ROSALIA INFANTE LIPA #### [facility] [address] [place] [address] [address] Ruthie Pan Glucose [Mass/Vol] 113 mg/dL Critically high 74-106 [facility] Comment on above: Performed By: #### C ROSALIA INFANTE LIPA #### [facility] [address] [place] [address] [address] Ruthie Pan Potassium [Moles/Vol] 3.4 mmol/L Critically low 3.5-5.1 [facility] Comment on above: Performed By: #### C ROSALIA INFANTE LIPA #### [facility] [address] [place] [address] Dr. Ruthie Pan Protein [Mass/Vol] 6.4 g/dL Normal 6.4-8.2 [facility] Comment on above: Performed By: #### C ROSALIA INFANTE LIPA #### [facility] [address] [place] [address] Dr. Ruthie Pan Sodium [Moles/Vol] 138 mmol/L Normal 136-145 [facility] Comment on above: Performed By: #### C ROSALIA INFANTE, LIPA #### [facility] [address] [place] [address] Dr. Ruthie Pan Urea nitrogen [Mass/Vol] 10.0 mg/dL Normal 7.0-18.0 [facility] Comment on above: Performed By: #### C ROSALIA INFANTE LIPA #### [facility] [address] [place] [address] Dr. Ruthie Pan Urea nitrogen/Creatinine [Mass ratio] 14.1 mg/mg Normal [facility] Comment on above: Performed By: #### C ROSALIA INFANTE LIPA #### [facility] [address] [place] [address] Dr. Ruthie Pan US SINGLE QUAD RT [...] by: MILE BENITEZ Date: 2021-11-24 07:56 Normal [facility] XR SHOULDER RT 2V or >on [...] by: Austin VENTURA Date: 2021-11-21 02:37 Normal [facility] Vital Signs Date Time Vital Sign Value Performing Clinician Facility 09-29-2024 11:00-0400 Body temperature 98.5 [degF] Rufina DEGROOT Work Phone: [facility] 09-29-2024 11:00-0400 Diastolic blood pressure 68 mm[Hg] Rufina DEGROOT Work Phone: [facility] 09-29-2024 11:00-0400 Heart rate 72 /min Rufina DEGROOT Work Phone: [facility] 09-29-2024 11:00-0400 Respiratory rate 18 /min Rufina Rubio MEDICAL DRIVER-C Work Phone: [facility] 09-29-2024 11:00-0400 SaO2% (BldA) [Mass fraction] 99 % Rufina Rubio MEDICAL DRIVER-C Work Phone: [facility] 09-29-2024 11:00-0400 Systolic blood pressure 136 mm[Hg] Rufina Rubio MEDICAL DRIVER-C Work Phone: [facility] 08-14-2024 10:48-0500 Body height 157.5 cm Michael Brown DO Work Phone: [facility] 08-14-2024 10:48-0500 Body mass index (BMI) [Ratio] 22.68 kg/m2 Michael Brown DO Work Phone: [facility] 08-14-2024 10:48-0500 Body weight 56.25 kg Michael Brown DO Work Phone: [facility] 06-27-2024 15:17-0500 Body height 157.5 cm Michael Brown DO Work Phone: [facility] 06-27-2024 15:17-0500 Body mass index (BMI) [Ratio] 22.68 kg/m2 Michael Brown DO Work Phone: [facility] 06-27-2024 15:17-0500 Body weight 56.25 kg Michael Brown DO Work Phone: [facility] 05-30-2024 15:15-0500 Body height 157.5 cm Michael Brown DO Work Phone: [facility] 05-30-2024 15:15-0500 Body mass index (BMI) [Ratio] 22.68 kg/m2 Michael Brown DO Work Phone: [facility] 05-30-2024 15:15-0500 Body weight 56.25 kg Michael Brown DO Work Phone: [facility] 05-19-2024 12:20-0500 Body temperature 98.06 [degF] Michael Henderson [facility] 05-19-2024 12:20-0500 Diastolic blood pressure 71 mm[Hg] Michael Henderson [facility] 05-19-2024 12:20-0500 Heart rate 65 /min Michael Henderson [facility] 05-19-2024 12:20-0500 Mean blood pressure 86 mm[Hg] Michael Henderson [facility] 05-19-2024 12:20-0500 Respiratory rate 16 /min Michael Henderson [facility] 05-19-2024 12:20-0500 SaO2% (BldA) [Mass fraction] 100 % Michael Henderson [facility] 05-19-2024 12:20-0500 Systolic blood pressure 117 mm[Hg] Michael Hendesron [facility] 05-19-2024 11:34-0500 Heart rate 77 /min Michael Henderson [facility] 05-19-2024 11:34-0500 SaO2% (BldA) [Mass fraction] 99 % Michael Henderson [facility] 05-19-2024 11:34-0500 Diastolic blood pressure 62 mm[Hg] Michael Henderson [facility] 05-19-2024 11:34-0500 Mean blood pressure 85 mm[Hg] Michael Henderson [facility] 05-19-2024 11:34-0500 Systolic blood pressure 131 mm[Hg] Michael Henderson [facility] 05-19-2024 11:25-0500 Blood Pressure Location Michael Henderson [facility] 05-19-2024 11:25-0500 Body temperature 97.88 [degF] Michael Henderson [facility] 05-19-2024 11:25-0500 Diastolic blood pressure 84 mm[Hg] Michael Henderson [facility] 05-19-2024 11:25-0500 Heart rate 61 /min Michael Henderson [facility] 05-19-2024 11:25-0500 Mean blood pressure 105 mm[Hg] Michael Henderson [facility] 05-19-2024 11:25-0500 Respiratory rate 17 /min Michael Henderson [facility] 05-19-2024 11:25-0500 SaO2% (BldA) [Mass fraction] 100 % Michael Henderson [facility] 05-19-2024 11:25-0500 Systolic blood pressure 148 mm[Hg] Michael Henderson [facility] 05-19-2024 11:15-0500 Blood Pressure Location Michael Henderson [facility] 05-19-2024 11:15-0500 Mean blood pressure 91 mm[Hg] Michael Henderson [facility] 05-19-2024 11:15-0500 Respiratory rate 20 /min Michael Henderson [facility] 05-19-2024 10:42-0500 Body temperature 97.16 [degF] Michael Henderson [facility] 05-19-2024 10:40-0500 Respiratory rate 3 /min Michael Henderson [facility] 05-19-2024 10:35-0500 Respiratory rate 21 /min Michael Henderson [facility] 05-19-2024 06:41-0500 Mean blood pressure 89 mm[Hg] Michael Brown [facility] 05-19-2024 06:40-0500 Body temperature 97.7 [degF] Michael Henderson [facility] 05-19-2024 06:40-0500 Mean blood pressure 90 mm[Hg] Michael Brown [facility] 05-04-2024 14:14-0400 Diastolic blood pressure 78 mm[Hg] Michael Brown [facility] 05-04-2024 14:14-0400 Heart rate 66 /min Michael Brown [facility] 05-04-2024 14:14-0400 Mean blood pressure 91 mm[Hg] Michael Brown [facility] 05-04-2024 14:14-0400 Systolic blood pressure 118 mm[Hg] Michael Brown [facility] 05-04-2024 14:14-0400 Respiratory rate 18 /min Michael Brown [facility] 05-04-2024 14:14-0400 Heart rate 70 /min Michael Brown [facility] 05-04-2024 14:14-0400 SaO2% (BldA) [Mass fraction] 100 % Michael Henderson [facility] 05-04-2024 14:14-0400 Diastolic blood pressure 62 mm[Hg] Michael Brown [facility] 05-04-2024 14:14-0400 Mean blood pressure 77 mm[Hg] Michael Brown [facility] 05-04-2024 14:14-0400 Systolic blood pressure 108 mm[Hg] Michael Brown [facility] 05-04-2024 13:28-0400 Body height 157.5 cm Michael Brown DO Work Phone: [facility] 05-04-2024 13:28-0400 Body mass index (BMI) [Ratio] 22.68 kg/m2 Michael Brown DO Work Phone: [facility] 05-04-2024 13:28-0400 Body temperature 97.39 [degF] Michael Brown DO Work Phone: [facility] 05-04-2024 13:28-0400 Body weight 56.25 kg Michael Brown DO Work Phone: [facility] 04-06-2024 15:04-0400 Body height 157.5 cm Michael Brown DO Work Phone: [facility] 04-06-2024 15:04-0400 Body mass index (BMI) [Ratio] 22.68 kg/m2 Michael Brown DO Work Phone: [facility] 04-06-2024 15:04-0400 Body weight 56.25 kg Michale Brown DO Work Phone: [facility] 03-07-2024 11:08-0400 Body height 157.5 cm Michael Brown DO Work Phone: [facility] 03-07-2024 11:08-0400 Body mass index (BMI) [Ratio] 22.68 kg/m2 Michael Brown DO Work Phone: [facility] 03-07-2024 11:08-0400 Body weight 56.25 kg Michael Brown DO Work Phone: [facility] 07-23-2022 00:20-0500 Diastolic blood pressure 65 mm[Hg] [facility] Work Phone: [facility] 07-23-2022 00:20-0500 Heart rate 89 /min Services [employer] [facility] Work Phone: [facility] 07-23-2022 00:20-0500 Respiratory rate 18 /min Services [facility] Work Phone: [facility] 07-23-2022 00:20-0500 SaO2% (BldA) [Mass fraction] 99 % [facility] Work Phone: [facility] 07-23-2022 00:20-0500 Systolic blood pressure 103 mm[Hg] [facility] Work Phone: [facility] 07-22-2022 19:43-0500 Body height 154.94 cm Services [employer] Work Phone: [facility] 07-22-2022 19:43-0500 Body temperature 98.4 [degF] Services [facility] [employer] Work Phone: [facility] 07-22-2022 19:43-0500 Body weight 64 kg Services [employer] Work Phone: [facility] 11-23-2021 23:23-0400 Body temperature 98.06 [degF] Venancio Ernesto [facility] 11-23-2021 23:23-0400 Diastolic blood pressure 63 mm[Hg] Venancio Ernesto [facility] 11-23-2021 23:23-0400 Heart rate 81 /min Venancio Ernesto [facility] 11-23-2021 23:23-0400 Respiratory rate 16 /min Venancio Ernesto [facility] 11-23-2021 23:23-0400 SaO2% (BldA) [Mass fraction] 97 % Venancio Ernesto [facility] 11-23-2021 23:23-0400 Systolic blood pressure 102 mm[Hg] Venancio Ernesto [facility] Encounters Encounter Date Encounter Type Care Provider Facility Start: 11-14-2024 End: 11-14-2024 ambulatory Akbar Philippe Facility:[facility] Start: 11-14-2024 End: 11-14-2024 Patient encounter procedure Akbar Philippe [facility] Start: 09-29-2024 End: 09-29-2024 Patient encounter procedure Rufina Ramiro MEDICAL DRIVER-C Work Phone: [facility] Start: 09-29-2024 End: 09-29-2024 ambulatory Rufina Maria Guadalupe Rubio MEDICAL DRIVER-C Work Phone: [facility] Work Phone: Start: 09-22-2024 End: 09-22-2024 Patient encounter procedure Rufina Ramiro MEDICAL DRIVER-C Work Phone: [facility] Work Phone: Start: 09-22-2024 End: 09-22-2024 ambulatory Rufina Maria Guadalupe Rubio MEDICAL DRIVER-C Work Phone: [facility] Work Phone: Start: 09-20-2024 End: 09-20-2024 Patient encounter procedure Rufina Ramiro MEDICAL DRIVER-C Work Phone: [facility]Ul[facility]ound [facility] [place] Work Phone: Start: 09-20-2024 End: 09-20-2024 ambulatory Rufina Maria Guadalupe Rubio MEDICAL DRIVER-C Work Phone: [facility] Work Phone: Start: 08-22-2024 End: 08-30-2024 Telephone encounter Janey Cox PT [facility] Comment on above: re: More PT; fu; Fin al attempt Start: 08-14-2024 End: 08-14-2024 Bamboo flowsheet Michael Henderson DO Work Phone: [facility] Start: 08-14-2024 End: 08-14-2024 Bamboo flowsheet Michael Henderson DO Work Phone: [facility] Start: 08-14-2024 End: 08-14-2024 Patient encounter procedure Michael Henderson DO Work Phone: [facility] Comment on above: S/P arthroscopy of r ight shoulder (Primary Dx) Start: 08-14-2024 End: 08-14-2024 ambulatory MICHAEL Saizn BEATRIZ Not Available Start: 08-10-2024 End: 08-10-2024 Bamboo flowsheet Jadiel Danilo INDUSTRIAL ENGINEERING TECHNOLOGIST [facility] Start: 08-10-2024 End: 08-10-2024 Bamboo flowsheet Jadiel Danilo INDUSTRIAL ENGINEERING TECHNOLOGIST [facility] Start: 08-10-2024 End: 08-10-2024 ambulatory Jadiel Danilo INDUSTRIAL ENGINEERING TECHNOLOGIST [facility] Comment on above: S/P arthroscopy of r ight shoulder (Primary Dx); Acute pain of right shoulder Start: 08-07-2024 End: 08-07-2024 Bamboo flowsheet Jadiel Danilo INDUSTRIAL ENGINEERING TECHNOLOGIST [facility] Start: 08-07-2024 End: 08-07-2024 Bamboo flowsheet Jadiel Danilo INDUSTRIAL ENGINEERING TECHNOLOGIST [facility] Start: 08-07-2024 End: 08-07-2024 ambulatory Jadiel Danilo INDUSTRIAL ENGINEERING TECHNOLOGIST [facility] Comment on above: S/P arthroscopy of r ight shoulder (Primary Dx); Acute pain of right shoulder Start: 08-04-2024 End: 08-04-2024 ambulatory Rufina Rubio Facility:[facility] Start: 08-04-2024 End: 08-04-2024 Patient encounter procedure Rufina Rubio MEDICAL DRIVER-C Work Phone: [facility] Start: 08-03-2024 End: 08-03-2024 Bamboo flowsheet Jadiel Danilo INDUSTRIAL ENGINEERING TECHNOLOGIST [facility] Start: 08-03-2024 End: 08-03-2024 Bamboo flowsheet Jadiel Danilo INDUSTRIAL ENGINEERING TECHNOLOGIST [facility] Start: 08-03-2024 End: 08-03-2024 ambulatory Jadiel Danilo INDUSTRIAL ENGINEERING TECHNOLOGIST [facility] Comment on above: S/P arthroscopy of r ight shoulder (Primary Dx); Acute pain of right shoulder Start: 07-24-2024 End: 07-24-2024 Bamboo flowsheet Jadiel Danilo INDUSTRIAL ENGINEERING TECHNOLOGIST [facility] Start: 07-24-2024 End: 07-24-2024 Bamboo flowsheet Jadiel Samuel INDUSTRIAL ENGINEERING TECHNOLOGIST [facility] Start: 07-24-2024 End: 07-24-2024 ambulatory Jadiel Samuel INDUSTRIAL ENGINEERING TECHNOLOGIST [facility] Comment on above: S/P arthroscopy of r ight shoulder (Primary Dx); Acute pain of right shoulder Start: 07-13-2024 End: 07-13-2024 Telephone encounter Parvin Peralta Jed PT Work Phone: [facility] Comment on above: Covid Start: 07-11-2024 End: 07-11-2024 Bamboo flowsheet Janey Cox PT [facility] Start: 07-11-2024 End: 07-11-2024 Bamboo flowsheet Janey Cox PT [facility] Start: 07-11-2024 End: 07-11-2024 ambulatory Janey Cox PT [facility] Comment on above: Acute pain of right shoulder (Primary Dx); S/P arthroscopy of right shoulder Start: 06-27-2024 End: 06-27-2024 Patient encounter procedure Michael Henderson DO Work Phone: [facility] Comment on above: S/P arthroscopy of r ight shoulder (Primary Dx) Start: 06-27-2024 End: 06-27-2024 ambulatory MICHAEL HENDERSON Not Available Start: 06-27-2024 End: 06-27-2024 Bamboo flowsheet Michael Henderson DO Work Phone: [facility] Start: 06-27-2024 End: 06-27-2024 Bamboo flowsheet Michael Henderson DO Work Phone: [facility] Start: 05-30-2024 End: 05-30-2024 Patient encounter procedure Michael Henderson DO Work Phone: [facility] Comment on above: Traumatic incomplete tear of right rotator cuff, subsequent encounter (Primary Dx); S/P arthroscopy of right shoulder Start: 05-30-2024 End: 05-30-2024 ambulatory MICHAEL HENDERSON Not Available Start: 05-30-2024 End: 05-30-2024 ambulatory MICHAEL HENDERSON Not Available Start: 05-19-2024 End: 05-19-2024 Admission to same day surgery center Michael Henderson [facility] Start: 05-19-2024 End: 05-19-2024 ambulatory Michael Henderson Facility:[facility] Start: 05-04-2024 End: 05-04-2024 Patient encounter procedure Michael Henderson [facility] Comment on above: Traumatic incomplete tear of right rotator cuff, subsequent encounter (Primary Dx) Start: 05-04-2024 End: 05-04-2024 ambulatory DO Michael Henderson Facility:[facility] Start: 04-06-2024 End: 04-06-2024 Patient encounter procedure Michael Henderson DO Work Phone: [facility] Comment on above: Right shoulder pain, unspecified chronicity (Primary Dx) Start: 04-06-2024 End: 04-06-2024 ambulatory MICHAEL HENDERSON Not Available Start: 04-06-2024 End: 04-06-2024 Bamboo flowsheet Michael Henderson DO Work Phone: [facility] Start: 04-06-2024 End: 04-06-2024 Bamboo flowsheet Michael Henderson DO Work Phone: [facility] Start: 04-03-2024 End: 04-03-2024 ambulatory MICHAEL HENDERSON Not Available Start: 03-07-2024 End: 03-07-2024 Bamboo flowsheet Michael Sainz Brown DO Work Phone: [facility] Start: 03-07-2024 End: 03-07-2024 Bamboo flowsheet Michael Sainz Brown DO Work Phone: [facility] Start: 03-07-2024 End: 03-07-2024 Patient encounter procedure Mihcael Sainz Beatriz DO Work Phone: [facility] Comment on above: Right shoulder pain, unspecified chronicity (Primary Dx) Start: 03-07-2024 End: 03-07-2024 ambulatory MICHAEL HENDERSON Not Available Start: 02-02-2024 End: 02-02-2024 ambulatory Rufina Rubio [facility] Work Phone: Start: 02-02-2024 End: 02-02-2024 Departed Referred MEDICAL DRIVER-C Rufina Rubio Work Phone: [facility] Start: 02-02-2024 Encounter for gynecological examination (general) (routine) without abnormal findings Rufina Rubio [facility] Start: 01-31-2024 End: 01-31-2024 ambulatory MARICRUZ ARREOLA Not Available Start: 01-25-2024 End: 01-25-2024 ambulatory MICHAEL HENDERSON Not Available Start: 09-28-2023 End: 09-28-2023 ambulatory Services [facility] Work Phone: [facility] Work Phone: Start: 09-28-2023 End: 09-28-2023 Departed Referred Services [facility] Work Phone: [facility] Start: 08-26-2023 Chart abstracting Jenaro davis DPM Work Phone: [facility] Start: 06-29-2023 End: 06-29-2023 ambulatory DPM Jenaro Galeana Work Phone: [facility] Work Phone: Start: 06-29-2023 End: 06-29-2023 Departed Referred DPM Jenaro Galeana Work Phone: [facility] Start: 05-26-2023 End: 05-26-2023 ambulatory MEDICAL DRIVER-C Rufina Rubio Work Phone: [facility] Work Phone: Start: 05-26-2023 End: 05-26-2023 Departed Referred MEDICAL DRIVER-C Rufina Rubio Work Phone: [facility] [place] Work Phone: Start: 03-19-2023 End: 03-19-2023 ambulatory MEDICAL DRIVER-C Rufina Rubio Work Phone: [facility] Work Phone: Start: 03-19-2023 End: 03-19-2023 Departed Referred MEDICAL DRIVER-C Rufina Rubio Work Phone: [facility] Start: 12-08-2022 End: 12-08-2022 Patient encounter procedure Adam ERICKSON [facility] Start: 11-16-2022 End: 11-16-2022 ambulatory MEDICAL DRIVER-C Rufina Rubio Work Phone: [facility] Work Phone: Start: 11-16-2022 End: 11-16-2022 Departed Referred MEDICAL DRIVER-C Rufina Rubio Work Phone: [facility] [place] Work Phone: Start: 10-04-2022 End: 10-04-2022 ambulatory [facility]: Start: 09-21-2022 End: 09-21-2022 ambulatory NON STAFF [facility] Work Phone: Start: 09-21-2022 End: 09-21-2022 Departed Referred MEDICAL DRIVER-C Rufina Rubio Work Phone: [facility] Start: 08-31-2022 End: 08-31-2022 Departed Referred MEDICAL DRIVER-C Rufina Rubio Work Phone: [facility] Start: 07-22-2022 End: 07-23-2022 Emergency department patient visit Services [facility] Work Phone: [facility]-Emergency Room Work Phone: Start: 07-21-2022 End: 07-21-2022 ambulatory [facility] Facility:[facility] Start: 07-20-2022 End: 07-20-2022 ambulatory MEDICAL DRIVER-C Rufina Chewson Work Phone: [facility] Work Phone: Start: 07-20-2022 End: 07-20-2022 Departed Referred MEDICAL DRIVER-C Rufina Ramiro Work Phone: [facility] Start: 06-24-2022 End: 06-24-2022 ambulatory [facility] Facility:[facility] Start: 06-09-2022 End: 06-09-2022 ambulatory [facility] Work Phone: [facility] Work Phone: Start: 06-09-2022 End: 06-09-2022 Departed Referred [facility] Work Phone: [facility] Start: 04-14-2022 End: 04-14-2022 ambulatory [facility] Work Phone: [facility] Work Phone: Start: 04-14-2022 End: 04-14-2022 Departed Referred Services [facility] Work Phone: [facility] Start: 04-08-2022 End: 04-09-2022 ambulatory [facility] Facility:[facility] Start: 11-24-2021 End: 11-24-2021 ambulatory [facility] Facility:[facility] Start: 11-23-2021 End: 11-24-2021 Emergency department patient visit Venancio Orozco [facility] Start: 11-21-2021 End: 11-21-2021 ambulatory [facility] Facility:[facility] Start: 11-06-2021 End: 11-06-2021 ambulatory [facility] Facility:[facility] Procedures Date Procedure Procedure Detail Performing Clinician Start: 09-29-2024 Mammography of right breast Rufina Rubio MEDICAL DRIVER-C Work Phone: Start: 09-29-2024 Ultrasonography guid ed biopsy of right breast Rufina Rubio MEDICAL DRIVER-C Work Phone: Start: 09-22-2024 Bilateral mammography J vic Rubio MEDICAL DRIVER-C Work Phone: Start: 09-22-2024 Ultrasonography of b ilateral breasts Rufina Rubio MEDICAL DRIVER-C Work Phone: Start: 09-20-2024 Pelvic echography Denisa Rubio MEDICAL DRIVER-C Work Phone: Start: 09-20-2024 US scan of bladder Larissa Rubio MEDICAL DRIVER-C Work Phone: Start: 09-20-2024 Transvaginal echography Rufina Rubio MEDICAL DRIVER-C Work Phone: Start: 08-04-2024 Urine culture Rufina Rubio MEDICAL DRIVER-C Work Phone: Start: 05-30-2024 Radex shoulder compl ete minimum 2 views Michael Henderson DO Work Phone: Start: 05-19-2024 Arthroscopy of shoulder Michael Henderson Start: 05-26-2023 Aerobic microbial culture DPM Jenaro Lissett Work Phone: Start: 08-31-2022 Urine culture MEDICAL DRIVER-C Larissa Rubio Work Phone: Start: 07-22-2022 Computed tomography of abdomen and pelvis with contrast MEDICAL DRIVER-C Rufina Rbuio Work Phone: Start: 07-22-2022 US scan of gallbladder MEDICAL DRIVER-C Rufina Rubio Work Phone: Start: 07-20-2022 Urine culture Services [facility] Work Phone: Start: 06-09-2022 Urine culture MEDICAL DRIVER-C Larissa Chewson Work Phone: Start: 11-19-2021 Arthroscopy of shoulder Venancio Orozco Urine culture Services [facility] Work Phone: Vaginal hysterectomy Venancio knox Plan of Treatment Date Care Activity Detail Author Start: 10-16-2024 End: 10-16-2024 Patient encounter procedure 10/16/2024 8:15 AM EDT Office Visit [facility] [address] [place] [id number] Michael Henderson, DO [address] [place] [address] [facility] Start: 09-29-2024 [facility] Start: 08-18-2024 End: 08-18-2024 ambulatory 08/18/2024 10:30 AM EST Treatment [facility] [address] [facility] [address] [place] [address] Janey Cox, PT [facility] Start: 08-17-2024 End: 08-17-2024 ambulatory 08/17/2024 10:30 AM EST Treatment [facility] [address] [facility] [address] [place] [address] Jadiel Samuel, INDUSTRIAL ENGINEERING TECHNOLOGIST [facility] Start: 08-15-2024 End: 08-15-2024 ambulatory 08/15/2024 12:30 PM EST Treatment [facility] [address] [facility] [address] [place] [address] Janey Cox, PT [facility] Start: 08-14-2024 End: 08-14-2024 Patient encounter procedure [facility] Comment on above: Arrived Start: 08-10-2024 End: 08-10-2024 ambulatory 08/10/2024 10:30 AM EST Treatment [facility] [address] [facility] [address] [place] [address] Janey Cox, PT [facility] Start: 08-07-2024 End: 08-07-2024 ambulatory [facility] Comment on above: Arrived Start: 08-03-2024 End: 08-03-2024 ambulatory [facility] Comment on above: Arrived Start: 07-31-2024 End: 07-31-2024 ambulatory 07/31/2024 10:30 AM EST Treatment [facility] [address] [place] [address] Jadiel Samuel, INDUSTRIAL ENGINEERING TECHNOLOGIST [facility] Start: 07-27-2024 End: 07-27-2024 ambulatory 07/27/2024 10:30 AM EST Treatment [facility] [address] [place] [address] Janey Cox, PT [facility] Start: 07-24-2024 End: 07-24-2024 ambulatory [facility] Comment on above: S/P arthroscopy of r ight shoulder (Primary Dx); Acute pain of right shoulder Start: 07-20-2024 End: 07-20-2024 ambulatory 07/20/2024 10:30 AM EST Treatment [facility] [address] [facility] [address] [place] [address] Jadiel Samuel, INDUSTRIAL ENGINEERING TECHNOLOGIST [facility] Start: 07-17-2024 End: 07-17-2024 ambulatory 07/17/2024 10:30 AM EST Treatment [facility] [address] [facility] [address] [place] [address] Jadiel Samuel, INDUSTRIAL ENGINEERING TECHNOLOGIST [facility] Start: 07-13-2024 End: 07-13-2024 ambulatory 07/13/2024 1:00 PM EST Treatment [facility] [address] [facility] [address] [place] [address] Parvin Adkins, PT [address] [place] [address] [facility] Start: 07-11-2024 End: 07-11-2024 ambulatory [facility] Comment on above: S/P arthroscopy of r ight shoulder Start: 07-04-2024 End: 07-04-2024 ambulatory 07/04/2024 7:00 AM EST Evaluation [facility] [address] [place] [address] Janey Cox, PT [facility] Start: 06-27-2024 End: 06-27-2024 Patient encounter procedure [facility] Comment on above: Arrived Start: 05-30-2024 End: 05-30-2024 Patient encounter procedure 05/30/2024 3:15 PM EST Office Visit [facility] [address] [place] [address] Michael Henderson, DO [address] [place] [address] [facility] Start: 05-04-2024 End: 05-04-2024 Patient encounter procedure 05/04/2024 1:30 PM EDT Office Visit [facility] [address] [place] [address] Michael Henderson, DO [address] [place] [address] [facility] Start: 04-06-2024 End: 04-06-2024 Patient encounter procedure 04/06/2024 2:30 PM EDT Office Visit [facility] [address] [place] [address] Michael Henderson, DO [address] [place] [address] Arrived [facility] Comment on above: Arrived Start: 03-12-2024 Influenza vaccination Influenza Vacc ine (#1) [facility] Start: 03-07-2024 End: 03-07-2024 Patient encounter procedure 03/07/2024 10:30 AM EDT Office Visit [facility] [address] [place] [address] Michael Henderson, DO [address] [place] [address] [facility] Comment on above: Arrived Start: 02-02-2024 [facility] Start: 09-28-2023 Bacteria identified in Urine by Culture Urine Culture [facility] Start: 08-26-2023 End: 08-26-2023 Patient encounter procedure 08/26/2023 9:00 AM EST Procedure Visit [facility] [address] [place] [id number] Jenaro Galeana, DPM [address] [place] [address] [facility] Start: 06-29-2023 Bacteria identified in Urine by Culture [facility] Start: 05-26-2023 Superficial Wound Culture Superficial Wound Culture [facility] Start: 07-22-2022 Computed tomography of abdomen and pelvis with contrast CT abdomen pelvis w con [facility] Start: 07-22-2022 CT Abdomen and Pelvi s W contrast IV [facility] Start: 07-22-2022 US Gallbladder [facility] Start: 07-22-2022 US scan of gallbladder US gall bladd er [facility] Start: 07-20-2022 Bacteria identified in Urine by Culture Urine Culture [facility] Start: 2017 Screening for malign ant neoplasm of breast Mammogram [facility] Start: 10-13-2007 Screening for malign ant neoplasm of cervix [facility] Start: 1998 Screening for malign ant neoplasm of cervix Pap Smear [facility] Start: 1977 Screening for malign ant neoplasm of colon [facility] Atopobium vaginae DN A [Presence] in Vaginal fluid by MICHAEL with probe detection [facility] Bacteria identified in Urine by Culture [facility] Bacterial vaginosis associated bacterium 2 DNA [Presence] in Vaginal fluid by MICHAEL with probe detection [facility] Chlamydia trachomati s rRNA [Presence] in Cervix by MICHAEL with probe detection [facility] Human papilloma viru s 16+18+31+33+35+39+45+51+ 52+56+58+59+66+68 DNA [Presence] in Cervix by Probe with signal amplification [facility] Human papilloma viru s 16+18+31+33+35+39+45+51+ 52+56+58+59+68 DNA [Presence] in Cervix by Probe with signal amplification [facility] Megasphaera sp type 1 DNA [Presence] in Vaginal fluid by MICHAEL with probe detection [facility] Neisseria gonorrhoea e rRNA [Presence] in Cervix by MICHAEL with probe detection [facility] Patient Education Abdominal Pain , Adult ED [facility] Work Phone: Patient referral [facility] Work Phone: Payers Date Payer Category Payer Self-pay [id number] 2023 Medicaid [id number] 1977 Unknown [id number] 2.16.840.1.691799.3.579.2.59 3 1977 Unknown [id number] 2.16.840.1.658418.3.579.2.59 3 1977 Unknown [id number] 2.16.840.1.405592.3.579.2.59 3 1977 Unknown [id number] 2.16.840.1.318975.3.579.2.59 3 1977 Unknown [id number] 2.16.840.1.010603.3.579.2.59 3 1977 Unknown [id number] 2.16.840.1.170549.3.579.2.59 3 1977 Unknown [id number] 2.16.840.1.828787.3.579.2.59 3 1977 Unknown [id number] 2.16.840.1.073885.3.579.2.72 7 1977 Unknown [id number] 2.16.840.1.179481.3.579.2.12 1977 Unknown [id number] 2.16.840.1.973977.3.579.2.12 1977 Unknown [id number] 2.16.840.1.575999.3.579.2.12 1977 Unknown [id number] 2.16.840.1.914742.3.579.2.12 1977 Unknown [id number] 2.16.840.1.787494.3.579.2.12 1977 Unknown [id number] 2.16.840.1.967593.3.579.2.12 1977 Unknown [id number] 2.16.840.1.702464.3.579.2.12 1977 Unknown [id number] 2.16.840.1.291275.3.579.2.12 1977 Unknown [id number] 2.16.840.1.209787.3.579.2.12 1977 Unknown [id number] 2.16.840.1.255926.3.579.2.12 1977 Unknown [id number] 2.16.840.1.615131.3.579.2.12 1977 Unknown [id number] 2.16.840.1.460125.3.579.2.12 1977 Unknown [id number] 2.16.840.1.704267.3.579.2.12 1977 Unknown [id number] 2.16.840.1.545363.3.579.2.12 1977 Unknown [id number] 2.16.840.1.403274.3.579.2.12 1977 Unknown [id number] 2.16.840.1.617153.3.579.2.12 1977 Unknown [id number] 2.16.840.1.897226.3.579.2.72 7 1977 Unknown [id number] 2.16.840.1.618001.3.579.2.72 7 1959 Medicaid [id number] 1957 Medicaid [id number] Private Health Insurance [id number] Unknown Ken Wright [facility] [id number] Unknown [id number] 2.16.840.1.405703.3.579.2.53 1 Unknown [id number] 2.16.840.1.295649.3.579.2.53 1 Unknown [id number] 2.16.840.1.264324.3.579.2.53 1 Unknown [id number] 2.16.840.1.565525.3.579.2.53 1 Unknown [id number] 2.16.840.1.051862.3.579.2.53 1 Social History Date Type Detail Facility Start: 11-11-2020 End: 10-27-2022 Tobacco smoking status Heavy tobacco smoker (finding) [facility] Start: 05-26-2023 End: 08-14-2024 Sex Assigned At Female [facility] Start: 12-16-2020 End: 09-29-2024 Tobacco smoking status NHIS Smoker (finding) [facility] Start: 1975 Sex Assigned At Female [facility] Tobacco smoking status Never Execu tive [facility] Start: 07-12-1994 End: 01-25-2024 Tobacco smoking status [facility] Smokes tobacco daily [facility] Start: 07-12-1994 History of tobacco use Cigarette Smoker [facility] Start: 08-19-2023 End: 08-14-2024 Cigarettes smoked current (pack per day) - Reported 0.5 [facility] Start: 08-19-2023 Alcohol intake Not Asked [facility] Start: 05-25-2023 Tobacco Comment Smokes 6-10 cigs/day. [facility] Start: 05-25-2023 Alcohol Comment caffeine intake: 2-3 cups per day. [facility] Start: 05-25-2023 Gender identity Identifies as female gender (finding) [facility] Start: 05-25-2023 Sexual orientation Heterosexual (finding) [facility] Start: 01-25-2024 Tobacco use and exposure Smokeless tobacco non-user [facility] Start: 05-04-2024 End: 08-14-2024 Alcoholic beverage intake Ex-drinker (finding) [facility] Start: 10-23-2009 End: 09-21-2024 Sex Female (finding) [facility] Sexual Orientation [facility] Medical Equipment Procedure Code Equipment Code Equipment Origin al Text Equipment Identifier Dates FDA Start: 05-30-2021 SHOULDER ARTHROS COPY W/ POSSIBLE REPAIR Brown DO, Michael A 05/30/21 Non Biological Shoulder R FDA Start: 05-30-2021 SHOULDER ARTHROS COPY W/ POSSIBLE REPAIR Brown DO, Michael A 05/30/21 Non Biological Shoulder R FDA Start: 05-30-2021 SHOULDER ARTHROS COPY W/ POSSIBLE REPAIR Brown DO, Michael A 05/30/21 Non Biological Shoulder R FDA Start: 05-30-2021 SHOULDER ARTHROS COPY W/ POSSIBLE REPAIR Brown DO, Michael A 05/19/24 Unknown Shoulder R FDA Start: 05-19-2024 SHOULDER ARTHROS COPY W/ POSSIBLE REPAIR Brown DO, Michael A 05/30/21 Non Biological Shoulder R FDA Start: 05-30-2021 SHOULDER ARTHROS COPY W/ POSSIBLE REPAIR Brown DO, Michael A 05/19/24 Unknown Shoulder R FDA Start: 05-19-2024 Functional Status Date Assessment Result Facility 05-04-2024 Functional Status No [facility] Clinical Notes 11-23-2021 to 09-29-2024 Note Date & Type Note Facility 09-29-2024 Evaluation note Diagnosis Onset Date Resolution Breast mass, right acute September 29, 2024 10:43am [facility] Work Phone: 1(753) 368-640903-21-2025 Radiology Diagnostic study [facility] [place] [address] [place] [address] Ultrasound Report Signed Patient: Archana Joy MR#: [id number] : 1975 Acct:[id number] Age/Sex: 48 / F ADM Date: 5 Loc: [facility] Room: Type: [facility] Attending Dr: Rufina Rubio MEDICAL DRIVER-C Ordering Provider: Rufina Rubio Date of Service: 09/29/24 US/US biopsy RT 1st lesion guid: R92.8 ([id number]) MM/MM post biopsy RT w/CAD: CLIP PLACEMENT Copies to: Rufina Rubio~ RIGHT BREAST ULTRASOUND-GUIDED BIOPSY WITH VACUUM ASSISTANCE CLINICAL DATA: Hypoechoic nodule at the superior central right breast. Patient's previous imaging from September 2024 was reviewed. The procedure was discussed with the patient and consent was obtained. Ultrasound survey at the superior central aspect of the breast shows a subtle hypoechoic nodular area 12:00, 6 cm from the nipple. Following sterile preparation and local anesthesia with lidocaine, a 12-gauge vacuum-assisted needle was advanced through the area under direct ultrasound visualization. Core tissue samples were obtained. Before the needle was removed,a biopsy marking clip was placed. There were no immediate complications. Pressure was held to achieve hemostasis. DIAGNOSTIC RIGHT MAMMOGRAM - FULL FIELD DIGITAL Craniocaudal and true lateral views of the right breast were obtained using low- dose digital technique. Comparison is made to the previous mammogram from September 22, 2024. There are scattered fibroglandular densities. There is a new biopsy marking clipand subcutaneous air at the site of nodular asymmetry at the superior central breast at the time of the prior. The nodule is smaller following biopsy. US/US biopsy RT 1st lesion guid IMPRESSION: STATUS POST ULTRASOUND-GUIDED BIOPSY OF A NODULE AT THE SUPERIOR CENTRAL RIGHT BREAST. Impression dictated by: Dara Hardy M.D.09/29/2024 11:50 AM Dictation Location: [facility] Tech: Funmilayo Cortez Transcribed By: JORGE 09/29/24 1150 Dictated By: Dara Hardy MD 09/29/24 1102 Signed By: 09/29/24 0495 [facility] Work Phone: 1(669) 306-195403-14-2025 Radiology Diagnostic study [facility] [place] [address] [place] [address] Ultrasound Report Signed Patient: Archana Joy MR#: [id number] : 1975 Acct:[id number] Age/Sex: 48 / F ADM Date: 5 Loc: [place] Room: Type: [facility] Attending Dr: Rufina Rubio MEDICAL DRIVER-C Ordering Provider: Rufina Rubio Date of Service: 09/22/24 US/US breast BI limited: Breast lump in female;Breastcancer screening bymammogram ([id number]) MM/MM diagnostic mammo BI w/CAD: Breast lump in female;Breast cancer screening by mammogram Copies to: Rufina Rubio~ CLINICAL DATA: Palpable lump left breast. Bilateral DIAGNOSTIC MAMMOGRAM - WITH TOMOSYNTHESIS AND CAD , bilateralLIMITED BREAST ULTRASOUND COMPARISON:Baseline study Tomosynthesis imaging was obtained using low-dose digital technique. This examination was reviewed with the aid of CAD. Additional ultrasound imaging was also obtained. Mammogram: The breasts are composed of scattered fibroglandular densities. No suspicious abnormality is seen involving the left breast. There appears be a mass at the approximately 12:00 position of the right breast, middle depth. Ultrasound: In the area palpable lump at the 2 to 3:00 position of the left breast approximately 4 cm from the nipple, dense fibroglandular tissue is present with a few cysts noted. No solid mass is present. At the 12:00 position of the right breast approximately 6 cm from the nipple, a well-circumscribed hypoechoic mass is noted measuring 10 x 10 x 5 mm. Additionalscanning of the left axilla demonstrated no suspicious lymph nodes. US/US breast BI limited IMPRESSION: NO MAMMOGRAPHIC OR ULTRASOUND EVIDENCE OF MALIGNANCY WITHIN THE LEFT BREAST. THE PATIENT'S PALPABLELUMP SHOULD BE HANDLED ON A CLINICAL BASIS. WELL-CIRCUMSCRIBED HYPOECHOIC MASS INVOLVING THE 12:00 POSITION OF THE RIGHT BREAST 6 CM FROM THE NIPPLE MEASURING 10 X 10 X 5 MM. AFTER DISCUSSION WITH THE PATIENT REGARDING THE IMAGING FINDINGS ANDFOLLOW-UP OPTIONS, THE PATIENT ELECTED BIOPSY OF THIS MASS. THEREFORE, ULTRASOUND-GUIDED BIOPSY WILL BE SCHEDULED. RESULT CODE: 4a Suspicious Abnormality - Biopsy Low Suspicion DENSITY CODE: 2 (approximately 25-50% glandular) There are scattered areas of fibroglandular density. FOLLOW UP: BIO The false-negative rate of mammography is approximately 10-percent. Management of a palpable abnormality must be based on clinical grounds. Impression dictated by: Joe Gold Jr., LuzOGideon09/22/2024 10:15 AM Dictation Location: [facility] Tech: Zo Nevarezsaint mary's hospitalcharity; Shauna Woodall Transcribed By: JORGE 09/22/24 1015 Dictated By: Joe Gold Jr, DO 09/22/24 1000 Signed By: 09/22/24 1015 [facility]03-12-2025 Radiology Diagnostic study note [facility] [place] [address] [place] [address] Ultrasound Report Signed Patient: Archana Joy MR#: [id number] : 1975 Acct:[id number] Age/Sex: 48 / F ADM Date: 5 Loc: Room: Type: [facility] Attending Dr: Rufina Rubio MEDICAL DRIVER-C Ordering Provider: Rufina Rubio Date of Service: 09/20/24 US/US pelvic complete: Recurrent UTI;Pelvic pain in female ([id number]) US/US transvaginal: PELIVIC PAIN IN FEMALE Copies to: Rufina Ruibo~ Pelvic ultrasound. Reason for exam: Recurrent UTI. Pelvic pain and pressure. Comparison: none Technique: Transabdominal imaging of the uterus and ovaries was performed. Transvaginal imaging of the uterus and ovaries was also obtained. Additional spectral Doppler analysis of the ovaries was also obtained. Findings: Uterus has been removed. Right ovary measures 2.9 x 1.8 x 2.2 cm. Left ovary measures 2.3x 1.0 x 1.7 cm. Normal arterial and venous Doppler waveforms. No adnexal mass or cyst. Presumed small hemorrhagic cysts are notedwithin both ovaries. No free fluid. US/US transvaginal Impression: No suspicious findings. Impression dictated by: Joe Gold Jr., D.O.09/20/2024 1:50 PM Dictation Location: [facility] Tech: Bethany Neeta Transcribed By: PWS 09/20/24 1350 Dictated By: Joe Gold Jr, DO 09/20/24 1348 Signed By: 09/20/24 1350 [facility]03-12-2025 Radiology Diagnostic study note [facility] [place] [address] [place] [address] Ultrasound Report Signed Patient: Archana Joy MR#: [id number] : 1975 Acct:[id number] Age/Sex: 48 / F ADM Date: 5 Loc: Room: Type: [facility] Attending Dr: Rufina Rubio MEDICAL DRIVER-C Ordering Provider: Rufina Rubio Date of Service: 09/20/24 US/US bladder: Recurrent UTI Copies to: Rufina Rubio~ BLADDER ULTRASOUND CLINICAL HISTORY: UTI. COMPARISON: CT abdomen and pelvis 07/22/2022 FINDINGS: The urinary bladder is partially distended with a volume of 239.8 cm3 ml. No shadowing stone or focal lesion. No significant postvoid residual. US/US bladder IMPRESSION: No acute findings. Impression dictated by: Joe Gold Jr., D.O.09/20/2024 1:48 PM Dictation Location: [facility] Tech: Bethany Santacruz Transcribed By: PWS 09/20/24 1348 Dictated By: Joe Gold Jr, DO 09/20/24 1348 Signed By: 09/20/24 1348 [facility]02-18-2025 Telephone encounter Note* Telephone Encounter - Belinda Buckner - 08/29/2024 8:41 AM EST Called and informed Dr. Beatriz Reyes's nurse, of attempts; she said she'd inform Dr. Henderson. [facility] [id number] Miscellaneous Notes* Telephone Encounter - Belinda Buckner - 08/29/2024 8:41 AM EST Called and informed Amy, Dr. Henderson's nurse, of attempts; she said she'd inform Dr. Henderson. * Telephone Encounter - Belinda Buckner - 08/28/2024 1:30 PM EST Tried to contact but had to lm requesting call back dillon to verify status and if more PT is needed. Did include this is my final attempt. * Telephone Encounter - Belinda Buckner - 08/22/2024 10:40 AM EST Tried to contact to offer rs PT. She had seen Dr. Henderson on 08/14 for fu, then cx, NS, cx her PT's that followed. Requested a call back to check status and rs off providers recommendation. documented in this encounterNOMS [id number] Telephone encounter Note* Telephone Encounter - Belinda Buckner - 08/28/2024 1:30 PM EST Tried to contact but had to lm requesting call back dillon to verify status and if more PT is needed. Did include this is my final attempt. [facility] [id number] Telephone encounter Note* Telephone Encounter - Belinda Buckner - 08/22/2024 10:40 AM EST Tried to contact to offer rs PT. She had seen Dr. Henderson on 08/14 for fu, then cx, NS, cx her PT's that followed. Requested a call back to check status and rs off providers recommendation. [facility] [id number] History of Present illness Narrative* Michael Alistair Henderson, DO - 08/14/2024 10:30 AM EST Images from the original note were not included. @[email or web address]@ Archana Joy is a 48 y.o. female who presents for Post-op of the Right Shoulder HPI: History of Present Illness The patient is 12.5 weeks status post right shoulder arthroscopy, rotator cuff repair, and distal clavicle coplaning. The surgery was performed on 05/19/2024. She has been compliant with her physical therapy regimen, which she reports as being beneficial. She demonstrates satisfactory mobility in her shoulder. She was recently introduced to a new exercise involving [id number]-iry-ibeu movements, which she reports has been progressively improving her range ofmotion. Her therapy schedule has been increased from 2 to 3 days per week for a few weeks, with theintention of further strengthening her shoulder. She experienced a 2- week interruption in her therapy due to a COVID-19 infection but continued her exercises at home during this period. SUBJECTIVE: MEDICATIONS: Current Outpatient Medications Medication Instructions albuterol (2.5 MG/3ML) 0.083% nebulizer solution albuterol HFA 90 mcg/act inhaler ciclopirox (Penlac) 8 % solution cyanocobalamin (Vitamin B-12) 1000 MCG tablet diazePAM (VALIUM) 5 mg, Oral, Nightly PRN famotidine (PEPCID) 20 mg, Daily FLUoxetine (PROzac) 40 MG capsule fluticasone (Flonase) 50 MCG/ACT nasal spray Every 24 hours fluticasone-salmeterol (Advair HFA) 45-21 MCG/ACT inhaler Advair HFA folic acid (Folvite) 1 MG tablet metroNIDAZOLE (Metrogel) 0.75 % vaginal gel 1 Application montelukast (Singulair) 10 MG tablet Every 24 hours OLANZapine (ZyPREXA) 15 MG tablet omeprazole (PriLOSEC) [address] capsule Every 24 hours potassium chloride ER (Micro-K) 10 MEQ ER capsule rOPINIRole (Requip) 1 MG tablet tiZANidine (Zanaflex) 2 MG tablet ALLERGIES: Allergies Allergen Reactions Aspirin [...] HISTORY: Past Surgical History: Procedure Laterality Date BICEPS TENDON REPAIR Right 2020 w/JAB SECTION, LOW TRANSVERSE HYSTERECTOMY Total laparascopic hysterectomy; adenoma/dysplasia disease SHOULDER ARTHROSCOPY Right 05/19/2024 ARCR w/JAB THYROIDECTOMY, PARTIAL TUBAL LIGATION Bilateral REVIEW OF SYMPTOMS: The review of systems, history and current medications list are all reviewed today. OBJECTIVE: Visit Vitals Ht 5' 2 Wt 124 lb BMI 22.68 kg/m OB Status Unknown Smoking Status Every Day BSA 1.57 m Physical Exam Right shoulder examination reveals active elevation to about 120 degrees, abduction to 90 degrees. Passive range of motion includes elevation to 150 degrees, abduction to 90 degrees, and external rotation to 90 degrees. Internal rotation reaches to about T9. Portals well-healed, neurovascular status unchanged Results ASSESSMENT AND PLAN: I reviewed the history, physical exam, diagnostic studies, and diagnosis with the patient. Assessment & Plan 1. Post-operative status following right shoulder arthroscopy, rotator cuff repair, and distal clavicle coplaning. She is advised to discontinue the use of the sling. If increased soreness occurs with new rehabilitation activities, she should rest and apply ice. She is currently scheduled for physical therapy 3 days a week but can reduce the frequency if it becomes too strenuous. Follow-up The patient will follow up in 2 months. There are no diagnoses linked to this encounter. Michael Henderson D.O. Attestation This note was created using voice recognition through [employer]. documented in this [facility]01-02-2025 Telephone encounter Note* Telephone Encounter - Belinda Buckner - 07/13/2024 1:27 PM EST Contacted re: missed PT. She noted she had cx over reminder due to testing positive for Covid. She said she has a fu w/ doctor scheduled for recheck. Her PT today and 1/6 we cx, and I requested a call back post recheck to confirm PT on 1/9 or cx due to status. [id number] Miscellaneous Notes* Telephone Encounter - Belinda Buckner - 07/13/2024 1:27 PM EST Contacted re: missed PT. She noted she had cx over reminder due to testing positive for Covid. She said she has a fu w/ doctor scheduled for recheck. Her PT today and 1/6 we cx, and I requested a call back post recheck to confirm PT on 1/9 or cx due to status. documented in this [facility]12-17-2024 History of Present illness Narrative* Michael Henderson DO - 06/27/2024 3:15 PM EST Images from the original note were not included. @[email or web address]@ Archana Rufino is a 48 y.o. female who presents for Post-op of the Right Shoulder (Rt shoulder [facility] 05/19/24) HPI: History of Present Illness The patient is 5.5 weeks status post right shoulder arthroscopy, rotator cuff repair, and distal clavicle coplaning, surgery date 05/19/2024. She expresses readiness to resume rehabilitation at [facility], a facility she has previouslyutilized. She continues to apply ice to her shoulder and inquires about the possibility of taking ibuprofen for pain management. She is not currently on any anti-inflammatory medications such as Celebrex or meloxicam. SUBJECTIVE: MEDICATIONS: Current Outpatient Medications Medication Instructions albuterol (2.5 MG/3ML) 0.083% nebulizer solution albuterol HFA 90 mcg/act inhaler ciclopirox (Penlac) 8 % solution cyanocobalamin (Vitamin B-12) 1000 MCG tablet diazePAM (VALIUM) 5 mg, Oral, Nightly PRN famotidine (PEPCID) 20 mg, Daily FLUoxetine (PROzac) 40 MG capsule fluticasone-salmeterol (Advair HFA) 45-21 MCG/ACT inhaler Advair HFA folic acid (Folvite) 1 MG tablet gabapentin (NEURONTIN) 300 mg LORazepam (Ativan) 0.5 MG tablet Every 24 hours montelukast (Singulair) 10 MG tablet Every 24 hours OLANZapine (ZyPREXA) 15 MG tablet omeprazole (PriLOSEC) [address] capsule Every 24 hours potassium chloride ER (Micro-K) 10 MEQ ER capsule rOPINIRole (Requip) 1 MG tablet tiZANidine (Zanaflex) 2 MG tablet ALLERGIES: Allergies Allergen Reactions Aspirin [...] HISTORY: Past Surgical History: Procedure Laterality Date BICEPS TENDON REPAIR Right 2020 w/JAB SECTION, LOW TRANSVERSE HYSTERECTOMY Total laparascopic hysterectomy; adenoma/dysplasia disease SHOULDER ARTHROSCOPY Right 05/19/2024 ARCR w/JAB THYROIDECTOMY, PARTIAL TUBAL LIGATION Bilateral REVIEW OF SYMPTOMS: The review of systems, history and current medications list are all reviewed today. OBJECTIVE: Visit Vitals Ht 5' 2 Wt 124 lb BMI 22.68 kg/m OB Status Unknown Smoking Status Every Day BSA 1.57 m Physical Exam Portals well healed. No swelling. Right shoulder can be elevated to 90 degrees and abducted to 90 degrees. External Rotation is at 30degrees. NV status unchanged Results ASSESSMENT AND PLAN: I reviewed the history, physical exam, diagnostic studies, and diagnosis with the patient. Assessment & Plan 1. Post-operative status following right shoulder arthroscopy, rotator cuff repair, and distal clavicle coplaning. She is 5.5 weeks post-surgery, performed on 05/19/2024. She is advised to continue icing the shoulder, especially with the commencement of physical therapy. Overworking the shoulder is discouraged asit may impede recovery. She is instructed to have rest days during the week to allow proper healing. Ibuprofen can be taken with food for pain management, but should be discontinued if it causes stomach upset. A referral to physical therapy will be initiated. The pillow component of the sling will be removed, and she is advised to wear the regular sling primarily when outside the house. Inside the house, she can remove the sling but should keep her elbow by her side when out of the sling. Follow-up The patient will follow up in 6 weeks. Diagnoses and all orders for this visit: S/P arthroscopy of right shoulder - Ambulatory referral to Physical Therapy; Future Michael Henderson D.O. Attestation This note was created using voice recognition through [employer]. documented in this encounterSaint John's Health [id number] History of Present illness Narrative* Michael Henderson DO - 05/30/2024 3:15 PM EST Images from the original note were not included. @ENCDATE@ Archana Rufino is a 48 y.o. female who presents for No chief complaint on file. HPI: History of Present Illness The patient is 11-days status post right shoulder arthroscopy, rotator cuff repair with distal clavicle coplaning. Date of surgery 05/19/2024. She has had her stitches removed and is able to move her hand and wrist without difficulty. SUBJECTIVE: MEDICATIONS: Current Outpatient Medications Medication Instructions albuterol (2.5 MG/3ML) 0.083% nebulizer solution albuterol HFA 90 mcg/act inhaler ciclopirox (Penlac) 8 % solution cyanocobalamin (Vitamin B-12) 1000 MCG tablet famotidine (PEPCID) 20 mg, Daily FLUoxetine (PROzac) 40 MG capsule fluticasone-salmeterol (Advair HFA) 45-21 MCG/ACT inhaler Advair HFA folic acid (Folvite) 1 MG tablet LORazepam (Ativan) 0.5 MG tablet Every 24 hours montelukast (Singulair) 10 MG tablet Every 24 hours OLANZapine (ZyPREXA) 15 MG tablet omeprazole (PriLOSEC) [address] capsule Every 24 hours oxyCODONE-acetaminophen (Percocet) 5-325 MG tablet 1-2 tablets, Oral, Every 6 hours PRN potassium chloride ER (Micro-K) 10 MEQ ER [...] TOTAL SHOULDER ARTHROPLASTY 2020 TUBAL LIGATION Bilateral REVIEW OF SYMPTOMS: The review of systems, history and current medications list are all reviewed today. OBJECTIVE: Visit Vitals OB Status Unknown Smoking Status Every Day Physical Exam RIGHT SHOULDER Portals benign. No erythema. No donna deformity. Elbow and wrist flexion and extension intact. Makes fist. Hand well perfused Results 3 views right shoulder, Grashey/Zanca/outlet, taken today and saved to the permanent medical recordare reviewed. No fractures. ASSESSMENT AND PLAN: I reviewed the history, physical exam, diagnostic studies, and diagnosis with the patient. Assessment & Plan 1. 11-days status post right shoulder arthroscopy, rotator cuff repair with distal clavicle coplaning She is advised to maintain mobility in her elbow, hand, and wrist to prevent stiffness. Showering can be done normally without any special precautions for the incisions. No therapy is recommended at this time to allow for healing. Regular icing of the shoulder is suggested. Pendulum exercises were demonstrated and she is encouraged to perform them a few times daily. The sling should be worn when outside the house or when active inside, but can be removed during rest periods. Follow-up Return in 4 weeks for follow up. Start PT at that time. Diagnoses and all orders for this visit: Traumatic incomplete tear of right rotator cuff, subsequent encounter - XR shoulder 2+ views right Michael Henderson D.O. Attestation This note was created using voice recognition through [employer]. documented in this encounterSaint John's Health [id number] NoteProgress Note-Physician Patient: ARCHANA JOY Age: 48 years Sex: Female : 1975 Associated Diagnoses: None Author: Odilon ANSARI, Akbar Escobar Postoperative Information Postoperative disposition: Postoperative disposition: To PACU. Optimetrix number: Optimetrix number [id number]. Anesthetic utilized: General. Regional: Interscalene Block. Health Status Allergies: Allergic Reactions (Selected) Severity Not Documented Anaprox- Vomiting. Aspirin- Vomiting. Bactrim- Vomiting. Flagyl- Vomiting. Haldol- Jaw locked sideways. Magnesium sulfate- Vomiting. NSAIDs- Vomiting. Toradol- Migraines. Vistaril- Rash, vomiting. Physical Examination Vital Signs 05/19/2024 12:20 EST Temperature Temporal Artery 36.7 DegC Heart Rate Monitored 65 bpm Respiratory Rate 16 br/min Systolic Blood Pressure 117 mmHg Diastolic Blood Pressure 71 mmHg Mean Arterial Pressure, Cuff 86 mmHg SpO2 100 % 05/19/2024 11:34 EST Heart Rate Monitored 77 bpm SpO2 99 % 05/19/2024 11:34 EST Systolic Blood Pressure 131 mmHg Diastolic Blood Pressure 62 mmHg Mean Arterial Pressure, Monitered 85 mmHg 05/19/2024 11:25 EST Temperature Temporal Artery 36.6 DegC Heart Rate Monitored 61 bpm Respiratory Rate Monitored 17 br/min Systolic Blood Pressure 148 mmHg HI Diastolic Blood Pressure 84 mmHg Blood Pressure Location Left arm Mean Arterial Pressure, Cuff 105 mmHg SpO2 100 % Pain Assessment: Controlled. General: Awake, Appropriate. Respiratory: Adequate air exchange. Cardiovascular: Stable. Neurological Assessment Anesthetic outcome No anesthetic complications noted. Adequate pain relief. Review / Management Condition: Stable. Plan Transfer/Discharge: Transfer/Discharge Discharge when meets criteria ( To home ).[facility] RehabilitationComment on above:Result Comment: Electronically Signed By: Akbar Donald MD\.br\Date and Time Signed: 05/19/24 15:55 EST 05-19-2024 Evaluation + Plan noteExtracted from: Title:ANES Post-operative Note---General Author: Akbar Donald MD Date:05/19/24 Plan Transfer/Discharge: Transfer/Discharge Discharge when meets criteria ( To home ). Extracted from: Title:ANES Pre-operative Note 2022 Author:Akbar Felton Date:05/18/24 Plan [place] [employer] Anesthesiologists (ASA) physical status classification: Class III. Anesthetic Preoperative Plan: Anesthesia General. Regional interscalene brachial plexus block. [facility] 11-08-2024 Hospital Discharge instructions Patient Education 05/19/2024 11:08:40 Shoulder Cryocuff Patient Instructions - FT (CUSTOM) 05/19/2024 11:08:28 Post Op Patient Instructions - FT (CUSTOM) 05/19/2024 07:57:19 Jessica Henderson - After Your Shoulder Arthroscopy (Custom) [place], [place] [facility] AFTER YOUR SHOULDER ARTHROSCOPY 1.Diet: Begin with a liquid diet and advance to your normal diet as tolerated. 2.Activity: You may remove your sling for bathing and to perform gentle range of motion exercises for the hand,wrist, and elbow. Bend and straighten your elbow and wrist several times per day to minimize stiffness. Keep your elbow in close to your side when performing these exercises. Do not move your shoulder until instructed by your surgeon. Swelling after surgery is normal and this will gradually decrease over time. All sports activities are discouraged, at least until your first post-operative visit at which timewe will discuss how and when to resume sports. 3. Driving: Driving is legal. If you are involved in an accident, you must be able to prove that you maintainedfull control of your vehicle. For this reason, it is advised that you do not drive until your strength returns. You should not operate a vehicle or heavy machinery if you are taking narcotic pain medication. 4. Pain: If pain persists despite rest, elevation, and medication, contact your surgeon. You will be given a prescription for pain medications prior to leaving the hospital. Please inform us of any known drug allergy. If you have any problems with the medication, it should be discontinued and our office notified. The sensation of splashing of fluid inside the joint is not cause for concern. It represents residual fluids from surgery and they will be absorbed. Elevation of the arm and application of an ice pack will minimize swelling and discomfort in the first 48 hours after surgery. 5. Bandage: Soft compression dressing has been applied to your shoulder. This dressing should be comfortable and absorb any leakage of fluid or blood from your operated shoulder. Although the dressing may becomemoist or blood stained, this is not usually a cause for concern. If this persists, notify your surgeon. You may remove the dressing 48 hours after your surgery. If you have a bandage in your armpit, leave this in place until follow up. Apply betadine and band-aids to the small incisions once or twice daily as needed. 6.Incisions: The portals of entry may be sore and develop bruising over the next several days. The bruising eventually resolves and does not require any special care. Do not apply creams or lotions to your shoulder. Your portals will heal well on their own. 7.Bathing: You may shower 48 hours after surgery. Bathing or soaking in water should be avoided until your first post-operative visit. 8.Precautions: If you develop fever (101 degrees or above), increasing pain (not relieved by rest, elevation, ice,and medication as prescribed), redness or swelling in your shoulder or arm, please contact the office or the hospital. If you notice increased drainage from the operative portals after the third day,this should also be reported. 9.Return Visit: Your first post-operative follow-up appointment is generally between 7 and 14 days after discharge from the hospital. You will be given an appointment card with your appointment information. Do not hesitate to call the office or the hospital if any problems or questions arise before your appointment. Michael Henderson, DO [facility] [address] [place] [address] [id number] Reviewed: Follow Up Care 04/06/2024 15:53:21 With:Michael Henderson Address: [address] [place], [place] [id number]- Business (1) When:05/30/2024 15:15:00 Comments:Call for any problems. [facility] 11-08-2024 NotePatient Education - Text [place], [place] [facility] AFTER YOUR SHOULDER ARTHROSCOPY 1. Diet: Begin with a liquid diet and advance to your normal diet as tolerated. 2. Activity: You may remove your sling for bathing and to perform gentle range of motion exercises for the hand,wrist, and elbow. Bend and straighten your elbow and wrist several times per day to minimize stiffness. Keep your elbow in close to your side when performing these exercises. Do not move your shoulder until instructed by your surgeon. Swelling after surgery is normal and this will gradually decrease over time. All sports activities are discouraged, at least until your first post-operative visit at which timewe will discuss how and when to resume sports. 3. Driving: Driving is legal. If you are involved in an accident, you must be able to prove that you maintainedfull control of your vehicle. For this reason, it is advised that you do not drive until your strength returns. You should not operate a vehicle or heavy machinery if you are taking narcotic pain medication. 4. Pain: If pain persists despite rest, elevation, and medication, contact your surgeon. You will be given a prescription for pain medications prior to leaving the hospital. Please inform us of any known drug allergy. If you have any problems with the medication, it should be discontinued and our office notified. The sensation of splashing of fluid inside the joint is not cause for concern. It represents residual fluids from surgery and they will be absorbed. Elevation of the arm and application of an ice pack will minimize swelling and discomfort in the first 48 hours after surgery. 5. Bandage: Soft compression dressing has been applied to your shoulder. This dressing should be comfortable and absorb any leakage of fluid or blood from your operated shoulder. Although the dressing may becomemoist or blood stained, this is not usually a cause for concern. If this persists, notify your surgeon. You may remove the dressing 48 hours after your surgery. If you have a bandage in your armpit, leave this in place until follow up. Apply betadine and band-aids to the small incisions once or twice daily as needed. 6. Incisions: The portals of entry may be sore and develop bruising over the next several days. The bruising eventually resolves and does not require any special care. Do not apply creams or lotions to your shoulder. Your portals will heal well on their own. 7. Bathing: You may shower 48 hours after surgery. Bathing or soaking in water should be avoided until your first post-operative visit. 8. Precautions: If you develop fever (101 degrees or above), increasing pain (not relieved by rest, elevation, ice,and medication as prescribed), redness or swelling in your shoulder or arm, please contact the office or the hospital. If you notice increased drainage from the operative portals after the third day,this should also be reported. 9. Return Visit: Your first post-operative follow-up appointment is generally between 7 and 14 days after discharge from the hospital. You will be given an appointment card with your appointment information. Do not hesitate to call the office or the hospital if any problems or questions arise before your appointment. Michael Henderson, DO [facility] [address] [place] [address] Reviewed: [facility] NoteProgress Note-Physician Patient: ARCHANA JOY [facility]: [id number] Age: 48 years Sex: Female : 1975 Associated Diagnoses: None Author: Akbar Donald MD Preoperative Information Anesthesia Preop Info: Time patient last ate or drank 05/19/2024 00:00:00. Anesthesia history: Patient history: None. Family history+: None. Informed consent: Signed by patient. Re-evaluation prior to induction: Initial evaluation reviewed: No significant change. Review of Systems Eye Ear/Nose/Mouth/Throat Respiratory: No shortness of breath, No cough. Cardiovascular: Chest pain. Gastrointestinal: No heartburn. Musculoskeletal Neurologic Health Status Allergies: Allergic Reactions (Selected) Severity Not Documented Anaprox- Vomiting. Aspirin- Vomiting. Bactrim- Vomiting. Flagyl- Vomiting. Haldol- Jaw locked sideways. Magnesium sulfate- Vomiting. NSAIDs- Vomiting. Toradol- Migraines. Vistaril- Rash, vomiting., Allergies (9) Active Severity Reaction Bactrim vomiting Toradol migraines Vistaril rash, vomiting NSAIDs vomiting magnesium sulfate vomiting Flagyl vomiting aspirin vomiting Anaprox vomiting Haldol jaw locked sideways Current medications: (Selected) Documented Medications Documented FLUoxetine 40 mg Cap: 40 mg = 1 cap(s), Oral, Daily, Refills(s) 0, Anxiety albuterol 0.083% Inh Ana Lilia 3 mL: 2.5 mg, 3 mL, NEB, BID, Refill(s) 0, Other (see comment) olanzapine 15 mg oral tablet: 15 mg = 1 tab(s), Oral, Once a day (at bedtime), Refills(s) 0, Depression ropinirole 1 mg Tab: 1 mg = 1 tab(s), Oral, Daily, Refills(s) 0, Other (see comment) tizanidine 2 mg oral capsule: 2 mg = 1 cap(s), Oral, BID, # 180 cap(s), Refills(s) 0, Pain, Home Medications (5) Active albuterol 0.083% Inh Ana Lilia 3 mL 2.5 mg = 3 mL, NEB, BID FLUoxetine 40 mg Cap 40 mg = 1 cap(s), Oral, Daily olanzapine 15 mg oral tablet 15 mg = 1 tab(s), Oral, Once a day (at bedtime) ropinirole 1 mg Tab 1 mg = 1 tab(s), Oral, Daily tizanidine 2 mg oral capsule 2 mg = 1 cap(s), Oral, BID , No qualifying data available Problem list: All Problems Acute cystitis with hematuria / SNOMED CT 495251205 / Confirmed Bipolar disorder / SNOMED CT 18676945 / Confirmed Chronic obstructive lung disease / SNOMED CT 56019056 / Confirmed History of kidney stones / SNOMED CT 0164829673 / Confirmed Impingement syndrome of right shoulder / SNOMED CT 963885343 / Confirmed Recurrent UTI / SNOMED CT 090920544 / Confirmed Smoker 11-JAN-2014 12:37:00<$> / SNOMED CT [id number] / Confirmed Added secondary to documentation in Social History. Resolved: anxiety / SNOMED CT 70614043 Resolved: Depression / SNOMED CT 657619750 Resolved: Headache / SNOMED CT 41185447 Resolved: MIGRAINE / SNOMED CT 2284591442 Canceled: Acute back pain / SNOMED CT 339257171 Canceled: Acute UTI / SNOMED CT [id number] Canceled: Endometriosis / SNOMED CT 8924265852 Canceled: kidney stones / SNOMED CT 426318917 Canceled: Pancreatitis / SNOMED CT 150345418 Canceled: Vaginal discharge / SNOMED CT 180480853 Canceled: Vaginal pain / ICD-9-CM 625.9 Canceled: Vomiting / SNOMED CT 8278940235, Active Problems (7) Acute cystitis with hematuria Bipolar disorder Chronic obstructive lung disease History of kidney stones Impingement syndrome of right shoulder Recurrent UTI Smoker Histories Past Medical History: Resolved MIGRAINE (1244674870): Resolved. anxiety (46754518): Resolved. Headache (20913299): Resolved. Depression (021299094): Resolved. Family History: Kidney stones Sister Procedure history: Arthroscopy of shoulder (246331651) on 05/30/2021 at 45 Years. Vaginal hysterectomy (017896720). Social History Social & Psychosocial Habits Alcohol 05/04/2024 Risk Assessment: Denies Alcohol Use 05/04/2024 Use: Current Comment: denies - 11/11/2020 20:16 - Marcelo RN, Kylie Arrington Substance Abuse 05/04/2024 Risk Assessment: Denies Substance Abuse 05/04/2024 Use: Current Comment: denies - 11/11/2020 20:16 - Marcelo RN, Kylie Arrington Tobacco 05/04/2024 Type: Cigarettes Comment: 1ppd - 09/08/2014 18:45 - Eliana TRIPP, Kimberlyn 05/04/2024 Risk Assessment: High Risk 05/04/2024 Tobacco Use: 10 or more cigarettes (1/ Smokeless tobacco use: Never Type: Cigarettes . Physical Examination No qualifying data available Airway: Mallampati classification: II (soft palate, fauces, uvula visible). Respiratory: adequate air exchange. Cardiovascular: Regular rhythm. Review / Management Results review: No qualifying data available . Plan [place] [employer] Anesthesiologists (ASA) physical status classification: Class III. Anesthetic Preoperative Plan: Anesthesia General. Regional interscalene brachial plexus block.[facility] RehabilitationComment on above:Result Comment: Electronically Signed By: Odilon ANSARI, Akbar Escobar\.br\Date and Time Signed: 05/19/24 08:18 [id number] History of Present illness Narrative* Michael Henderson, - 05/04/2024 1:30 PM EDT Images from the original note were not included. @ENCDATE@ Archana Joy is a 48 y.o. female who presents for No chief complaint on file. HPI: History of Present Illness The patient is a 48-year-old nxblu-kqip-ozwyhcyl female here to discuss moving forward with surgeryon her right shoulder. She has a history [...] Diabetes Paternal Grandmother Mozell Cancer Paternal Grandmother Mozell Heart disease Paternal Grandfather SOCIAL HISTORY: Social [...] is 90 degrees. There is good strength withforward flexion, mild weakness with external rotation. No [...] rotation, resisted supination, or forward flexion. Negative Richmond's. Negative Neer/Stone impingement. No tenderness over the [...] Ortho Exam Results MRI of the shoulder [facility] 04/03/2024 shows a high grade partial thickness tear of the supraspinatus. No cuff atrophy. ASSESSMENT AND PLAN: I reviewed the history, physical exam, diagnostic studies, and diagnosis with the patient. Assessment & Plan 48 yo RHD female rotator cuff tear, right shoulder A detailed discussion was held regarding the surgical procedure, including the associated risks andbenefits. The postoperative recovery period was also explained, emphasizing the need for a sling with a pillow and the initiation of therapy after 4 to 6 weeks. The patient will be able to remove thesling while at home for activities such as [...] no diagnoses linked to this encounter. Michael Henderson D.O. Attestation This note was created using voice recognition through [employer]. documented in this encounterSaint John's Health [id number] History of Present illness Narrative* Michael Henderson DO - 04/06/2024 2:30 PM EDT Images from the original note were not included. @MARIAADATE@ Archana Rufino is a 48 y.o. female who presents for Pain of the Right Shoulder HPI: History of Present Illness The patient is a 48-year-old uuqap-pvrm-qbkftvww female here today to follow up on her right shoulder. She has a history of right shoulder arthroscopy, subacromial decompression, distal clavicle excisions, and mini open biceps tenodesis performed on 05/30/2021. An MRI of the shoulder was completed on 04/03/2024. She reports experiencing pain in her right shoulder, which is her dominant arm. This discomfort is causing her difficulty in performing daily tasks such as opening jars. She has been prescribed tramadol for pain management, but she does not take it regularly due to its side effects. She mentions that the medication's effect lasts until the next day, leaving her feeling unpleasant upon waking. Pedro notes that she has an ice machine at home. SUBJECTIVE: MEDICATIONS: Current Outpatient Medications Medication Instructions [...] Onset Cervical cancer Mother Diabetes Paternal Grandmother Rolando Cancer Paternal Grandmother Rolando Heart disease Paternal Grandfather SOCIAL HISTORY: Social History Tobacco Use Smoking status: Every Day Current packs/day: 0.50 Average packs/day: 0.5 packs/day for 29.7 years (14.9 ttl pk-yrs) Types: Cigarettes Start date: 07/12/1994 Smokeless tobacco: Never Tobacco comments: Smokes 6-10 cigs/day. Substance Use Topics Alcohol use: Not Currently Comment: caffeine intake: 2-3 cups per day. Drug use: Not Currently Depression: Not on file REVIEW OF SYMPTOMS: Review of Systems The review of systems, history and current medications list are all reviewed today. OBJECTIVE: Visit Vitals Ht 5' 2 Wt 124 lb LMP (LMP Unknown) BMI 22.68 kg/m OB Status Unknown Smoking Status Every Day BSA 1.57 m Physical Exam Alert and oriented, no acute distress. Mood and affect are appropriate. RIGHT SHOULDER Passive forward elevation at the right shoulder is to 160 degrees but this reproduces pain. Abduction is 90 degrees, external rotation with the arm abducted is 90 degrees. There is good strength withforward flexion, mild weakness with external rotation. No external rotation lag. Negative belly press. No donna deformity. Good strength with resisted supination. Positive tenderness over the AC joint. Positive cross arm adduction. Positive Whipple. Portals well healed. LEFT SHOULDER The skin is warm, dry, and intact. There is no swelling, atrophy, or deformity. The patient can raise the arm overhead. Full forward elevation, abduction, internal and external rotation. No weakness with internal and external rotation, resisted supination, or forward flexion. Negative Richmond's. Negative Neer/Stone impingement. No tenderness over the [...] sitting and standing position. Ortho Exam Results Imaging MRI of the shoulder [facility] 04/03/2024 shows a high grade partial thickness tear of the supraspinatus. No cuff atrophy. ASSESSMENT AND PLAN: I reviewed the history, physical exam, diagnostic studies, and diagnosis with the patient. Assessment & Plan 1. Right shoulder rotator cuff tear. The MRI completed on 04/03/2024 shows a partial thickness tear of the rotator cuff, which appears almost full thickness. This explains the patient's pain and difficulty in raising her arm. She reports that the pain is affecting her daily life, sleep, and quality of life. Given the severity of her symptoms and the impact on her dominant arm, surgical repair of the rotator cuff was discussed. The patient expressed a desire to proceed with surgery to alleviate the pain. She will undergo presurgical testing upon her return from [place]. Surgery is scheduled for 05/19/2024. She is advised to checkher ice machine to ensure it is functional. A new sling will be provided. We will proceed with right shoulder arthroscopy [...] no diagnoses linked to this encounter. Michael Henderson D.O. Attestation This note was created using voice recognition through [employer]. documented in this encounterSaint John's Health [id number] History of Present illness Narrative* Michael Henderson DO - 03/07/2024 10:30 AM EDT Images from the original note were not included. @ENCDATE@ Archana Rufino is a 48 y.o. female who presents for Pain of the Right Shoulder HPI: History of Present Illness The patient is a 48-year-old gcxno-cymv-dgvdxrrk female who is here today to follow up on her rightshoulder. She was prescribed oral prednisone and initiated physical therapy at her last visit on 01/25/2024. She reports no improvement in her condition. In the interim, she was hospitalized due to her COPD. During this time, she was administered steroids via her breathing machine. [place] just two days ago. Her daughter has been assisting her with the therapy exercises. She experiences pain when moving her shoulder and hears a constant snapping and popping sound during movement. History of right shoulder arthroscopy, subacromial decompression, distal clavicle excision, mini open biceps tenodesis on 05/30/2021 SUBJECTIVE: MEDICATIONS: Current Outpatient Medications Medication Instructions [...] MG tablet tiZANidine (Zanaflex) 2 MG tablet ALLERGIES: Allergies Allergen Reactions Aspirin [...] Diabetes Paternal Grandmother Mozell Cancer Paternal Grandmother Mozconchis Heart disease Paternal Grandfather SOCIAL HISTORY: Social History Tobacco Use Smoking status: Every Day Current packs/day: 0.50 Average packs/day: 0.5 packs/day for 29.7 years (14.8 ttl pk-yrs) Types: Cigarettes Start date: 07/12/1994 Smokeless tobacco: Never Tobacco comments: Smokes 6-10 cigs/day. Substance Use Topics Alcohol use: Not Currently Comment: caffeine intake: 2-3 cups per day. Drug use: Not Currently Depression: Not on file REVIEW OF SYMPTOMS: Review of Systems The review of systems, history and current medications list are all reviewed today. OBJECTIVE: Visit Vitals Ht 5' 2 Wt 124 lb LMP (LMP Unknown) BMI 22.68 kg/m OB Status Unknown Smoking Status Every Day BSA 1.57 m Physical Exam Patient is ambulating independently and wearing flip flops. Neck's range of motion does not reproduce pain into the shoulder. There is some tenderness over the right side paraspinal musculature. Passive forward elevation at the right shoulder is to 160 degrees but this reproduces pain. Abduction is 90 degrees, external rotation with the arm abducted is 90 degrees. There is good strength withforward flexion, mild weakness with external rotation. No external rotation lag. Negative belly press. No donna deformity. Good strength with resisted supination. Positive tenderness over the AC joint. Positive cross arm adduction. Positive Whipple. Portals well healed. LEFT SHOULDER The skin is warm, dry, and intact. There is no swelling, atrophy, or deformity. The patient can raise the arm overhead. Full forward elevation, abduction, internal and external rotation. No weakness with internal and external rotation, resisted supination, or forward flexion. Negative Richmond's. Negative Neer/Stone impingement. No tenderness over the AC joint. Negative cross-arm adduction. Negative Speed's and Yergason's. No instability. Ortho Exam Results ASSESSMENT AND PLAN: I reviewed the history, physical exam, diagnostic studies, and diagnosis with the patient. Assessment & Plan 1. AC joint arthropathy, right shoulder An MRI of the right shoulder has been ordered at the imaging center in [place]. She is advised to continue with exercises that she can tolerate and avoid those that cause discomfort. A total of 20 to 29 minutes was spent on this patient encounter which included chart review, check in, nurse triage, history taking, physical examination, diagnostic study review, patient counseling and discussion, entering information into the patient's medical record, and coordinating patient care There are no diagnoses linked to this encounter. Michael Henderson D.O. Attestation This note was created using voice recognition through [employer] artificial intelligence. documented in this encounterSaint [facility]'s [facility] [id number] Hospital Discharge instructions Patient Education 11/24/2021 00:26:31 Shoulder Pain [...] ice if it does not help with thepain. Squeeze a soft ball or a foam pad as much as possible. This helps to keep the shoulder from swelling. It also helps to strengthen the arm. General instructions Take otod-tvo-usmkiht and prescription medicines only as told by [...] 04/07/2006 Document Revised: 01/10/2019 Document Reviewed: 01/10/2019 [employer] Patient Education 2020 [employer] Follow Up Care 11/23/2021 23:20:28 With:Cande Hinds Address: [address] [place] [address]- Business (1) When:12/01/2021 only if needed [facility]05-15-2022 Evaluation + Plan noteExtracted from: Title:ED Note Author:Venancio Orozco DO Date :11/23/21 Acute pain of right shoulder (M25.511: Pain in right shoulder) Orders: acetaminophen-oxycodone, 1 tab(s), Tab, Oral, Once, Stop date 11/23/21 23:37:00 EDT, STAT, Start date 11/23/21 23:37:00 EDT Sling Apply XR Shoulder Complete Right [facility]ments Appointment Date:05/19/2024 10:30:00 AM Scheduled Provider: Location:[facility] Appointment Type:Surgery FT [facility] Evaluation + Plan note Future Appointments Appointment Date:02/14/2025 10:00:00 AM Scheduled Provider: Location:.[facility] Appointment Type:US Abdominal/Pelvis (FT) Diagnostic Tests Pending * [facility] 11/14/24 Future Scheduled Tests Radiology* US Pelvis Non-OB Complete 02/14/25 * US Transvaginal Non-OB 02/14/25 [facility] evaluation noteNo assessment information available [facility] Work Phone: Evaluation note* Diagnosis Traumatic incomplete tear of right rotator cuff, subsequent encounter- Primary [facility] Diagnosis Traumatic incomplete tear of right rotator cuff, subsequent encounter- Primary S/P arthroscopy of right shoulder [facility]* Diagnosis Right shoulder pain, unspecified chronicity- Primary [facility]* Diagnosis Right shoulder pain, unspecified chronicity- Primary [facility]* Diagnosis S/P arthroscopy of right shoulder- Primary [facility]* Diagnosis Acute pain of right shoulder- Primary S/P arthroscopy of right shoulder [facility]* Diagnosis S/P arthroscopy of right shoulder- Primary Acute pain of right shoulder [facility]* Diagnosis S/P arthroscopy of right shoulder- Primary Acute pain of right shoulder documented in this encounter [facility]* Diagnosis S/P arthroscopy of right shoulder- Primary Acute pain of right shoulder documented in this encounter [facility]* Diagnosis S/P arthroscopy of right shoulder- Primary Acute pain of right shoulder documented in this encounter [facility]* Diagnosis S/P arthroscopy of right shoulder- Primary documented in this encounter [facility] course Narrative No data available for this section [facility] Additional Instructions As we discussed, [...] from the other day did show an infection.[facility] Work Phone: Hospital Discharge instructions No data available for this section [facility] Progress note No data available for this section [facility] Reason for visit Narrative* Rehabilitation - Outpatient (Routine) - Authorized Specialty Diagnoses / Procedures Referred By Timothy t Referred To Contact Physical Therapy Diagnoses S/P arthroscopy of right shoulder Procedures LA OFFICE/OUTPATIENT [facility] Michael Henderson, DO [address] [place] [address] Phone: tel: fax: [facility] [address] [facility] [address] [place] [address] Phone: tel: fax: Referral ID Status Reason Start Date Expiration Date Visits Requested Visits Authorized [id number] Authorized Specialty Services Required 07/11/2024 29 29 [facility] N[facility]* Rehabilitation - Outpatient (Routine) - Authorized Specialty Diagnoses / Procedures Referred By Contac t Referred To Contact Physical Therapy Diagnoses S/P arthroscopy of right shoulder Procedures LA THER PX 1/> AREAS EACH 15 MIN NEUROMUSC REEDUCA LA THERAPEUTIC PX 1/> AREAS EACH 15 MIN EXERCISES LA MANUAL THERAPY TQS 1/> REGIONS EACH 15 MINUTES PHYS/OCC THERAPY SS Michael Henderson, DO [address] [facility] [place] [address] Phone: tel: fax: [facility] [address] [facility] [address] [place] [address] Phone: tel: fax: Referral ID Status Reason Start Date Expiration Date Visits Requested Visits Authorized [id number] Authorized Specialty Services Required 07/13/2024 07/11/2025 30 30 [facility] Chief Complaint and Reason for Visit Chief [...] uria;History of kidney stones Chief Complaint Z01.419 Chief Complaint Admit Date R35.0 August 04, 2024 9 :00am N39.0 R10.2 September 20, 2024 10: 48am Chief Complaint Admit Date R35.0 August 04, 2024 9 :00am N39.0 R10.2 September 20, 2024 10: 48am N63.0 Z12.31 September 22, 2024 8:5 3am Chief Complaint Admit Date R35.0 August 04, 2024 9 :00am N39.0 R10.2 September 20, 2024 10: 48am N63.0 Z12.31 September 22, 2024 8:5 3am R92.8 N63.11 September 29, 2024 10: 43am Reason for Visit Admit Date Breast mass, right September 29, 2024 10: 43am Advance Directives No Advanced Directives Records Found [...] Status Dates Services Family Health Primary Care Provider, Family P rovider Active Salvador Maier Jr, MD Emergency Provider Active Team Status: Inactive Member Role Status Dates Services Family Health Family Provider Active ZANE Driscoll Attending Provide r Active NON STAFF Primary Care Provider Active Team Status: Inactive Member Role Status Dates Services Family Health Family Provider Active Jenaro Galeana DPM Attending Provider Active Team Status: Inactive Member Role Status Dates Services Family Health Family Provider Active Brian Wood DO Attending Provider Active Sprayer Automatic Spray Machine Relationship Specialty Start Date End Date Unallocated, N[place] [address] PCP - General 05/26/23 Team Status: Inactive Member Role Status Dates Services Family Health Primary Care Provider Active Start: September 28, 2023 End: September 28, 2023 ZANE Corrales Attending Provider Active Start: September 27 024 End: September 28, 2023 Team Status: Inactive Member Role Status Dates ZANE Driscoll Attending Provide r Active Start: February 02, 2024 End: February 02, 2024 Sprayer Automatic Spr[employer] Machine Relationship Specialty Start Date End Date Unallocated, Parker Rene MD [address] [place], [place] [address] [address] PCP - General 05/26/23 Rufina Rubio MD [address] [place] [address] Referring Physician Nurse Practitioner 01/06/24 Sprayer Automatic Spray Machine Relationship Specialty Start Date End Date Unallocated, Parker Rene MD [facility] [place] [address] PCP - General 05/26/23 Rufina Rubio MD [address] [place] [address] Referring Physician Nurse Practitioner 01/06/24 Sprayer Automatic Spray Machine Relationship Specialty Start Date End Date Unallocated, MD James Falcon[address] [place] [address] PCP - General 05/26/23 Rufina Rubio MD [address] [place] [place] [address] Referring Physician Nurse Practitioner 01/06/24 Sprayer Automatic Spray Machine Relationship Specialty Start Date End Date Unallocated, MD James [place] [address] PCP - General 05/26/23 Rufina Rubio MD [address] [place] [address] Referring Physician Nurse Practitioner 01/06/24 Sprayer Automatic Spray Machine Relationship Specialty Start Date End Date Unallocated, Parker Rene MD [facility] [address] [facility] [place] [address] PCP - General 05/26/23 Rufina Rubio MD [address] [place] [address] Referring Physician Nurse Practitioner 01/06/24 Sprayer Automatic Spray Machine Relationship Specialty Start Date End Date Unallocated, Parker Rene MD [address] [facility] [place] [address] PCP - General 05/26/23 Rufina Rubio MD [address] [place] [place] [address] Referring Physician Nurse Practitioner 01/06/24 Sprayer Automatic Spray Machine Relationship Specialty Start Date End Date Unallocated, Parker Rene MD [facility] [place] [address] PCP - General 05/26/23 Rufina Rubio MD [address] [place] [address] Referring Physician Nurse Practitioner 01/06/24 Sprayer Automatic Spray Machine Relationship Specialty Start Date End Date Unallocated, Parker Rene MD [facility] [place] [address] PCP - General 05/26/23 Rufina Rubio MD [address] [place] [place] [address] Referring Physician Nurse Practitioner 01/06/24 Sprayer Automatic Spray Machine Relationship Specialty Start Date End Date Unallocated, Parker Rene MD [facility] [place] [address] PCP - General 05/26/23 Rufina Rubio MD [address] [place] [address] Referring Physician Nurse Practitioner 01/06/24 Sprayer Automatic Spray Machine Relationship Specialty Start Date End Date Unallocated, Parker Rene MD [facility] [address] [facility] [place] [address] PCP - General 05/26/23 Rufina Rubio MD [address] [place] [address] Referring Physician Nurse Practitioner 01/06/24 Sprayer Automatic Spray Machine Relationship Specialty Start Date End Date Unallocated, Parker Rene MD [facility] [place] [address] PCP - General 05/26/23 Rufina Rubio MD [address] [place] [address] Referring Physician Nurse Practitioner 01/06/24 Sprayer Automatic Spray Machine Relationship Specialty Start Date End Date Unallocated, Parker Rene MD [address] [place] [address] PCP - General 05/26/23 Rufina Rubio MD [address] [place] [address] Referring Physician Nurse Practitioner 01/06/24 Sprayer Automatic Spray Machine Relationship Specialty Start Date End Date Unallocated, Parker Rene MD [facility] [place] [address] PCP - General 05/26/23 Rufina Rubio NP [facility] [address] [facility] [place] [address] Referring Physician Nurse Practitioner 01/06/24 Sprayer Automatic Spray Machine Relationship Specialty Start Date End Date Unallocated, Parker Rene MD [address] [place] [address] PCP - General 05/26/23 Rufina Rubio NP [address] [place] [address] Referring Physician Nurse Practitioner 01/06/24 Sprayer Automatic Spray Machine Relationship Specialty Start Date End Date Unallocated, Parker Rene MD [address] [facility] [place] [address] PCP - General 05/26/23 Rufina Rubio NP [address] [place] [address] Referring Physician Nurse Practitioner 01/06/24 Sprayer Automatic Spray Machine Relationship Specialty Start Date End Date Unallocated, Parker Rene MD [address] [place] [address] PCP - General 05/26/23 Rufina Rubio NP [address] [facility] [place] [address] Referring Physician Nurse Practitioner 01/06/24 Sprayer Automatic Spray Machine Relationship Specialty Start Date End Date Unallocated, Parker Rene MD [address] [facility] [place] [address] PCP - General 05/26/23 Rufina Rubio NP [address] [facility] [place] [address] Referring Physician Nurse Practitioner 01/06/24 Sprayer Automatic Spray Machine Relationship Specialty Start Date End Date Unallocated, Parker Rene MD [address] [place] [address] PCP - General 05/26/23 Rufina Rubio NP [address] [facility] [place] [address] Referring Physician Nurse Practitioner 01/06/24 Team Status: Active Member Role Status Dates Services Family Health Family Provider Active Rufina Rubio , MEDICAL DRIVER-C Primary Care Prov ider Active Team Status: Inactive Member Role Status Dates Rufina Villarreal n , MEDICAL DRIVER-C Attending Provider Active Start: August 04, 2024 End: August 04, 2024 Team Status: Inactive Member Role Status Dates Rufina Rubio , MEDICAL DRIVER-C Primary Care Provider, Attending Provider Active Start: September 20, 2024 End: September 20, 2024 Team Status: Inactive Member Role Status Dates Rufina Rubio MEDICAL DRIVER-C Primary Care Provider, Attending Provider Active Start: September 22, 2024 End: September 22, 2024 Team Status: Inactive Member Role Status Dates Rufina Rubio , MEDICAL DRIVER-C Primary Care Provider, Attending Provider Active Start: September 29, 2024 End: September 29, 2024 Goals (unrecognized section and content) Goals may be documented in a n alternate section INFORMATION SOURCE (unrecogn ized section and content) DATE CREATED AUTHOR 10/05/2022 [facility] DATE CREATED AUTHOR AUTHOR'S ORGANIZ ATION 05/06/2024 [facility] DATE CREATED AUTHOR AUTHOR'S ORGANIZ ATION 08/15/2024 [facility] EPIC DATE CREATED AUTHOR AUTHOR'S ORGANIZ ATION 10/07/2024 [facility] DATE CREATED AUTHOR AUTHOR'S ORGANIZ ATION 11/17/2024 [facility] DATE CREATED AUTHOR AUTHOR'S ORGANIZ ATION 11/20/2024 [facility] Reason for Visit (unrecogniz ed section and content) Reason Comments Follow-up Reason Comments Post-op Reason Comments Pain Reason Comments Post-op Rt shoulder ARCR FTM C 05/19/24 Reason Onset Date Comments Covid 07/13/2024 Reason Onset Date Comments re: More PT 08/22/2024 fu 08/23/2024 Final attempt 08/28/2024 FOR RECORDS PERTAINING TO PATIENTS WHO ARE [...] BE BASED ON THE PRIMARY CLINICAL RECORDS. [facility]. provides no warranty or guarantee of the accuracy or completeness of information in this document.
--- NOTE | 2024-11-26 20:14 | ED.GENADUL1 ---
HPI HPI - General Adult General Chief complaint: Extremity Injury, Upper Stated complaint: Upper Pain Time Seen by Provider: 11/26/24 20:04 Source: patient Mode of arrival: walk-in History of Present Illness HPI narrative: The patient is a 49-year-old female who presents to the emergency department today for evaluation of concerns for left shoulder pain. She is somewhat of a vague historian and is very forthcoming with providing much history but states over the past week she has had pain to her left shoulder. She mentioned multiple times that she had surgery on her right shoulder within the past year and that the pain in her left shoulder feels worse. She states she was a few days ago helping lift a grill that she believes may have contributed to some of the pain after it started. She denies any paresthesias, weakness, loss of movement to the affected extremity. Historically she did take Tylenol and ibuprofen prior to evaluation today. Related Data Home Medications ?Medication ?Instructions ?Recorded ?Confirmed albuterol sulfate 2.5 mg/3 mL 2.5 mg inhalation Q6H PRN 06/05/23 10/20/23 (0.083 %) solution for nebulization shortness of breath or wheezing fluticasone 250 mcg-salmeterol 50 1 inh inhalation BID 06/05/23 10/20/23 mcg/dose blistr powdr for inhalation (Advair Diskus) tizanidine 2 mg tablet 2 mg PO Q12H 06/05/23 10/20/23 albuterol sulfate 90 mcg/actuation 2 puff inhalation Q6H PRN 07/21/23 10/20/23 aerosol inhaler shortness of breath or wheezing fluoxetine 40 mg capsule 40 mg PO QDAY 07/21/23 10/20/23 folic acid 1 mg tablet 1 mg PO QDAY 07/21/23 10/20/23 olanzapine 10 mg tablet 10 mg PO QDAY 07/21/23 10/20/23 ropinirole 0.5 mg tablet 1 mg PO .qhs 07/21/23 10/20/23 Previous Rx's ?Medication ?Instructions ?Recorded tizanidine 2 mg capsule (Zanaflex) 2 mg PO Q8H PRN muscle spasm #12 12/20/23 caps ciprofloxacin HCl 500 mg tablet 500 mg PO Q12H #14 tabs 05/09/24 ondansetron 4 mg disintegrating 4 mg PO Q6H PRN nausea and 05/09/24 tablet vomiting #12 tabs phenazopyridine 200 mg tablet 200 mg PO Q8H 2 days #6 tabs 05/09/24 (Pyridium) Allergies Allergy/AdvReac Type Severity Reaction Status Date / Time hydroxyzine (From Vistaril) Allergy Severe Rash Verified 05/09/24 17:20 ketorolac (From Toradol) Allergy Severe Rash Verified 05/09/24 17:20 magnesium sulfate Allergy Severe Rash Verified 05/09/24 17:20 naproxen (From Anaprox) Allergy Severe Rash Verified 05/09/24 17:20 aspirin AdvReac Severe Vomiting Verified 05/09/24 17:20 haloperidol (From Haldol) AdvReac Severe lock jaw Verified 05/09/24 17:20 Opioid HPI Opioid Management Most Recent Opioid Data: Last Pain Scale 9 11/26/24, 19:55 Review of Systems ROS Status of ROS 10 or more systems reviewed and unremarkable except as noted in history and below PFSH PFSH Social History Smoking status: Current every day smoker Little interest or pleasure in doing things: not at all Feeling down, depressed, or hopeless: not at all Exam Narrative Exam Narrative: Constituational: Awake/ alert, no apparent distress, well hydrated HENMT: normocephalic, external ears normal, moist oral mucous membranes and oropharynx normal Eyes: EOMI and conjunctivae normal Neck: ROM intact Chest: inspection of chest normal Respiratory: Normal respiratory effort, clear to auscultation bilaterally Cardio: regular rate and regular rhythm Back: nontender MSK: + Comfort to L shoulder without surrounding edema, ecchymosis, crepitus, deformity, L upper arm/elbow stable, gross/fine motor movement intact to all digits of L hand, +NVI Skin: no rashes or petechiae Neuro: no focal deficits Psych: mental status grossly normal Constitutional Vital Signs, click to edit/add: Last Vital Signs Temp 98.1 F 11/26/24 19:55 Pulse 83 11/26/24 19:55 Resp 16 11/26/24 19:55 BP 107/77 11/26/24 19:55 Pulse Ox 98 11/26/24 19:55 O2 Del Method Room Air 11/26/24 19:55 Course Vital Signs Vital signs: Vital Signs Temperature 98.1 F 11/26/24 19:55 Pulse Rate 83 11/26/24 19:55 Respiratory Rate 16 11/26/24 19:55 Blood Pressure 107/77 11/26/24 19:55 Pulse Oximetry 98 11/26/24 19:55 Oxygen Delivery Method Room Air 11/26/24 19:55 Temperature 98.1 F 11/26/24 19:55 Pulse Rate 83 11/26/24 19:55 Respiratory Rate 16 11/26/24 19:55 Blood Pressure 107/77 11/26/24 19:55 Pulse Oximetry 98 11/26/24 19:55 Oxygen Delivery Method Room Air 11/26/24 19:55 Medical Decision Making MDM Narrative Medical decision making narrative: The patient is a well-appearing 49-year-old female who presented to the emergency department today for evaluation for concerns for nontraumatic left shoulder pain. Initial examination vital signs overall stable. No concerning neurovascular motor findings on exam. Patient's behavior does seem malingering as she is stating she cannot raise her left arm past 90 degrees however she does have a high ponytail on her head and has a sweatshirt on that she was able to remove without any concerns prior to provider evaluation. She does appear comfortable and is not in any guarding position of the affected extremity. X-ray imaging of left shoulder without critical findings. Clinical impression arthralgia. The patients condition additionally discussed with ER attending provider Dr. Potter prior to discharge as it was reported by nursing that patient had expressed wishes to be evaluated by a physician -> ER attending provider agrees with supportive plan of care for steroids, +/- muscle relaxants. Discussed these findings with the patient including recommendations for supportive care which she was offered a Medrol Dosepak and cyclobenzaprine that she subsequently declined. During the ER visit the patient was offered a sling for her arm ice pack which she declined. QASIM Marion present at the bedside during this conversation with the patient when she declined any supportive measures from the ER. Advised on follow-up with patient's primary care provider and/or her orthopedic provider as she recently reported a right shoulder surgery within the past year. Discussed signs and symptoms of any worsening condition and when to consider reevaluation. Patient verbalized an understanding of this and is agreeable with the plan to be discharged home. Medical Records Medical records reviewed: Yes I reviewed the patient's medical records Imaging Data XR left shoulder: Attestation: I have reviewed the pertinent imaging results. Radiologist's impression: Acute fracture or dislocation. Very mild hypertrophic changes in the left AC joint. No lytic or blastic lesions. No foreign body. Discharge Plan Discharge Chief Complaint: Extremity Injury, Upper Clinical Impression: Arthralgia Patient Disposition: Home, Self-Care Prescriptions / Home Meds: No Action tizanidine [Zanaflex] 2 mg capsule 2 mg PO Q8H PRN (Reason: muscle spasm) Qty: 12 0RF albuterol sulfate 2.5 mg /3 mL (0.083 %) solution for nebulization 2.5 mg inhalation Q6H PRN (Reason: shortness of breath or wheezing) tizanidine 2 mg tablet 2 mg PO Q12H fluticasone propion-salmeterol [Advair Diskus] 250-50 mcg/dose blister with device 1 inh inhalation BID fluoxetine 40 mg capsule 40 mg PO QDAY olanzapine 10 mg tablet 10 mg PO QDAY ropinirole 0.5 mg tablet 1 mg PO .qhs folic acid 1 mg tablet 1 mg PO QDAY albuterol sulfate 90 mcg/actuation HFA aerosol inhaler 2 puff INHALATION Q6H PRN (Reason: shortness of breath or wheezing) phenazopyridine [Pyridium] 200 mg tablet 200 mg PO Q8H 2 Days Qty: 6 0RF ciprofloxacin HCl 500 mg tablet 500 mg PO Q12H Qty: 14 0RF ondansetron 4 mg tablet,disintegrating 4 mg PO Q6H PRN (Reason: nausea and vomiting) Qty: 12 0RF Print Language: Macedonian Additional Instructions: You declined steroids or muscle relaxant medications from the emergency department tonight to help manage your pain. Recommend alternating Tylenol and ibuprofen and applying ice to any sore areas. Recommend you follow-up with your primary care provider and/your orthopedist for reevaluation. To the ER at any time and with any concerns. Referrals: [facility] [Primary Care Provider] - 1 week Discharge Date/Time: 11/26/24 21:36
--- NOTE | 2024-11-26 21:34 | PC.NURSE ---
i gave this patient verbal and paper discharge orders and this patient voices yes to understanding these. at time of discharge this patient shows no signs of distress, and this patient is not happy at this time
== END 2024-11-26 21:36 | disposition home or self-care (01) ==
PROVIDERS: Emergency Provider Internal Medicine
DX: M25.512 Pain in left shoulder (principal); F17.200 Nicotine dependence, unspecified, uncomplicated
CPT/HCPCS: 73030; 99283

== ENCOUNTER 2024-12-07 01:38 | Emergency (ER) | payer MEDICAID, SELFPAY ==
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
--- OUTSIDE RECORDS SUMMARY | 2024-11-23 06:00 | XMS_ITS ---
Author Organization [facility] es Address [address] [place] [address] Care Team Providers Care Mail Order Clerk Name Role Phone Charlie Pepe Primary Care Provider [phone] Portillo Kylie Fernandes [phone] Allergies Allergen (clinical drug ingredient) Drug/Non Drug [...] Drug Allergy Act aggie REASON FOR VISIT [id number] Medications Medication SIG (Take, Route, Frequency, Duration) [...] 11/23/2024 Encounters Encounter Location Date Provider Diagnosis [address] [address] 11/23/2024 Kylie Portillo Vitamin B deficiency E53.9 [...] vignesh, 01/23/2025 03:00:00 PM, [address] [place], [address], Provider Name:Pepe Roberto vignesh, 02/07/2025 02:30:00 PM, [address] [place], [address], Medications Administered Medication Instructions Date of Administration Dosage Notes B-12 injection 11/23/2024 1 mL Progress Notes * CHAUNCEY SANCHEZIDOB: 8 (49 yo F)Acc No.[id number]:11/23/2024 Progress Note Patient: ZIGGY ELI Appointment Provider: Selvin Portillo :1975 A ge:49 Y S ex:Female Supervising Provider:Kylie Portillo Date:11/23/2024 Address:[address] [place] [address], [address] [place], [id number] Pcp:Pepe Guerra Subjective: * Chief Complaints: * 1 . [id number]. * HPI: C onstitutional: pt is here [...] Hospitalization/Major Diagno stic Procedure: [place] [place], Pancreatitis 05/25/14, 1S Psych 09/23. * [...] * Procedure Codes: J 3420 VITAMIN B12, [address] THER/PROPH/DIAG INJ, SC/IM * Preventive Medicine: COUNSELING: C ommunication to patient: Counseling for Nutrition Provided Y es Counseling for Physical Activity Provided Y es BMI management provided Y es Nutrition/Dietary Counseling provided?Yes * Images: * Electronic signature of Kylie Portillo , RENUKA, POLE LIFT OPERATOR on 12/07/2024 at 01:42 AM EDT Sign off status: Pending * Appointment Provider: Selvin Portillo Date: 11/23/2024 Generated for Carmen pedersen/Jazmin/Jameson on: 12/07/2024 01:42 AM EDT History and Physical Notes * HPI (History of Present Illness) Category Sub-Category Detail Notes Category Not es Constitutional pt is here fo r B12 injection with no other question nor concerns
[2024-12-07 01:41] VITALS: BP 105/75; PULSE 80; TEMP 36.9; O2SAT 100; BMI 24.2
--- OUTSIDE RECORDS SUMMARY | 2024-12-07 01:44 | XMS_ITS | Clinical Summary ---
Author Organization [facility] Address [address] [place] [address] Care Team Providers Care Woodworking Machine Setter Name Role Phone Unallocated, Noms Provider Primary Care Provi nitesh Rufina Rubio GAS FURNACE INSTALLER Unavailable [phone] Allergies Active Allergy Reactions Criticality Noted Date Comments Aspirin 04/23/2023 Other Reaction(s): rash, Unknown, vomiting Haloperidol 04/23/2023 Other Reaction(s): anaphylaxis, jaw locked sideways, Unknown Hydroxyzine 04/23/2023 Other Reaction(s): rash, vomiting, Unknown, vomiting Ketorolac 05/26/2023 Other Reaction(s): Unknown Ketorolac Tromethamine 04/23/2023 Other Reaction(s): hives, migraines Magnesium Salicylate Other 05/26/2023 Magnesium Sulfate 04/23/2023 Other Reaction(s): Unknown, vomiting Metoclopramide 04/23/2023 Other Reaction(s): rash Metronidazole 04/23/2023 Other Reaction(s): rash, vomiting Naproxen Other 04/23/2023 Other Reaction(s): rash, Unknown, vomiting Nsaids Other 04/23/2023 Other Reaction(s): rash, Unknown, vomiting Penicillins 05/26/2023 Other Reaction(s): Unknown Sulfa Antibiotics 05/26/2023 Other Reaction(s): Unknown Sulfamethoxazole-Trimethoprim 2022 Other Reaction(s): vomiting Sulfur 10/15/2020 Trimethoprim 07/22/2022 Other Reaction(s): Hives Medications fluticasone-fatuma meterol (Advair HFA) 45-21 MCG/ACT inhaler Advair HFA Act aggie albuterol (2.5 MG/3ML) 0.083% nebulizer solution 3 Active ciclopirox (Penlac) 8 % solution 3 Active cyanocobalamin (Vitamin B-12) 1000 MCG tablet 3 Active FLUoxetine (PROzac) 40 MG capsule 3 Active famotidine (Pepcid) 20 MG tablet Take 20 mg by mouth in the morning. 3 Active folic acid (Folvite) 1 MG tablet 3 Active tiZANidine (Zanaflex) 2 MG tablet 3 Active montelukast (Singulair) 10 MG tablet 1 (one) time each day at the same time 4 Active omeprazole (PriLOSEC) [address] capsule 1 (one) time each day at the same time Active albuterol HFA 90 mcg/act inhaler 4 Active OLANZapine (ZyPREXA) 15 MG tablet 4 Active rOPINIRole (Requip) 1 MG tablet 4 Active potassium chloride ER (Micro-K) 10 MEQ ER capsule 4 Active diazePAM (Valium) 5 MG tabletIndicatio ns:Muscle Spasm Take 1 tablet (5 mg) by mouth as needed at bedtime for muscle spasms for up to 20 days 20 tablet 4 Active fluticasone (Flonase) 50 MCG/ACT nasal spray 1 (one) time each day at the same time 5 Active metroNIDAZOLE (Metrogel) 0.75 % vaginal gel 1 Application 4 12/20/19 25 Active Active Problems No known active problems Family History Medical History Relation Name Comments Cervical cancer Mother Heart disease Paternal Grandfather Cancer Paternal Grandmother Rolando Diabetes Paternal Grandmother Rolando Relation Name Status Comments Mother Paternal Grandfather Paternal Grandmother Rolando Social History Tobacco Use Types Packs/Day Years Used Date Smoking Tobacco: Every Day Cigarettes 0.5 30.4 Started: 07/12/1994 Smokeless Tobacco: Never Comments:Smokes 6-10 cigs/da y. Alcohol Use Standard Drinks/Week Comments Not Currently 0 (1 standard drink = 0.6 oz pure alcohol) caffeine intake: 2-3 cups per day. Comments Unknown Sex and Gender Information Value Date Recorded Sex Assigned at Female 05/25/2023 10:37 AM EST Legal Sex Female 6:43 PM EDT Gender Identity Female 05/25/2023 10:37 AM EST Sexual Orientation Straight 05/25/2023 10 :37 AM EST Last Filed Vital Signs Vital Sign Reading Time Taken Comments Blood Pressure - - Pulse - - Temperature 36.3 C (97.4 F) 05/04/2024 1:28 PM EDT Respiratory Rate - - Oxygen Saturation - - Inhaled Oxygen Concentration - - Weight 56.2 kg (124 lb) 08/14/2024 10:48 AM EST Height 157.5 cm (5' 2 ) 08/14/2024 10:48 AM EST Body Mass Index 22.68 08/14/2024 10:48 AM EST Plan of Treatment Health Maintenance Due Date Last Done Comments CT Colonography 1977 Colonoscopy 1977 Colorectal Cancer Screening 1977 FIT-DNA 1977 FIT 1977 FOBT 1977 Sigmoidoscopy 1977 Pap Smear 1998 Cervical Cancer Screening 10/13/2007 HPV/Cotest 10/13/2007 Mammogram 2017 Influenza Vaccine (Season Ended) 2025 Insurance [employer] MEDICAID [place] Care Teams Woodworking Machine Setter Relationship Specialty Start Date End Date Unallocated, Noms Provider, [address] [place] [address] PCP - General 05/26/23 Rufina Rubio NP [address] [place] [address] Referring Physician Nurse Practitioner 01/06/24
--- OUTSIDE RECORDS SUMMARY | 2024-12-07 01:44 | XMS_ITS | Encounter Summary ---
Author Organization [facility] Address [address] [place] [address] Care Team Providers Care Sales Appointment Coordinator Name Role Phone Unallocated, Noms Provider Primary Care Provi nitesh Rufina Rubio TILE PROFESSIONAL Unavailable [phone] Encounter Details Date Type Department Care Team (Late st Contact Info) Description 05/25/2024 Orders Only [facility] [address] [place] [id number] Michael Torres DO [address] [place] [address] S/P arthroscopy of right shoulder (Primary Dx) Social History Tobacco Use Types Packs/Day Years [...] Orientation Straight 05/25/2023 10 :37 AM EST documented as of this encounter Plan of Treatment Not on file documented as of this encounter Visit Diagnoses Diagnosis S/P arthroscopy of right shoulder- Primary documented in this encounter Care Teams Sales Appointment Coordinator Relationship Specialty Start Date End Date Unallocated, Noms Provider, [address] [place] [address] PCP - General 05/26/23 Rufina Rubio NP [address] [place] [address] Referring Physician Nurse Practitioner 01/06/24 documented as of this encounter
--- OUTSIDE RECORDS SUMMARY | 2024-12-07 01:44 | XMS_ITS | Encounter Summary ---
Author Organization [facility] Address [address] [address] Care Team Providers Care Cath Laboratory Technician Name Role Phone Unallocated, Parker Rene MD Primary Care Provi nitesh Rufina Rubio RESTAURANT AREA MANAGER Unavailable [phone] Encounter Details Date Type Department Care Team (Late st Contact Info) Description 05/19/2024 Abstract [facility] [address] [place] [address] Michael Torres DO [address] [place] [address] Social History Tobacco Use Types Packs/Day Years [...] documented as of this encounter Visit Diagnoses Not on filedocumented in this encounter Care Teams Cath Laboratory Technician Relationship Specialty Start Date End Date Unallocated, Noms Provider, MD [address] [place] [address] PCP - General 05/26/23 Rufina Rubio NP [address] [place] [address] Referring Physician Nurse Practitioner 01/06/24 documented as of this encounter
--- OUTSIDE RECORDS SUMMARY | 2024-12-07 01:45 | XMS_ITS | CCD ---
Author Organization [facility] Care Team Providers Care Fence Machine Operator Name Role Phone LizetCande rivera Selvin Primary Care Physician Bree Jimenes Unavailable Unavailable [facility] Primary Care Provider [phone] ZANE Rubio Attending Pr ovider [facility] Primary Care Provider [phone] ZANE Rubio Attending Pr ovider ZANE Rubio Attending Pr ovider [facility] Primary Care Provider [phone] MD Salvador Maier Jr Emergency Provider ZANE Rubio Attending Pr ovider NON STAFF Primary Care Provider Unavailabl e [facility] Primary Care Provider [phone] MD Salvador Maier Jr Emergency Provider [facility] Primary Care Unavaila sindhu Meneses, DR RICH Admitting Unavailable ROSE ., DR RICH Attending Unavailable ROSE ., DR RICH Consulting Unavailable [facility] Primary Care Unavaila sindhu ANGELA, DR ADDY Arrington Admitting Unavailable COREEN, DR ADDY Arrington Attending Unavailable ROSALIA ARROYO Consulting Unavailable [facility] Primary Care Unavaila ble MU SHERWOOD Admitting Unavailable [facility] SHERWOOD Attending Dom BENITEZ, DR MILE Pedersen Consulting Unavailable PAY ., DR ARGUETA Consulting Unavailable [facility] SHERWOOD Consulting Unavailable LUDIN ANGELES Consulting Unavailable [facility] Primary Care Unavaila ble COREEN, DR ADDY Arrington Admitting Unavailable COREEN, DR ADDY Arrington Attending Unavailable COREEN, DR ADDY Arrington Consulting Unavailable IRENE VENTURA Consulting Unavailable [facility] Primary Care Unavaila ble JUAN R ., DR GARCIA Admitting Unavailable MARKER ., DR GARCIA Attending Unavailable MARKER ., DR GARCIA Consulting Unavailable [facility] Primary Care Unavaila ble SHAWNA ., TREVOR Admitting Unavailable SHAWNA ., TREVOR Attending Unavailable SHAWNA ., TREVOR Consulting Unavailable [facility] Primary Care Unavaila ble SHAWNA ., TREVOR Admitting Unavailable SHAWNA ., TREVOR Attending Unavailable AYE ., PA ZOË Consulting Unavailsanchez VILLALPANDO, KAE Consulting Unavailable ZANE Rubio Attending Pr ovider ZANE Rubio Attending Pr ovider ZANE Rubio Attending Pr ovider MORGAN Galeana Attending Provider [phone] DO Brian Wood Attending Provider [phone] Unallocated, [place] Provider Primary Care Provider [facility] Primary Care Provider ZANE Rubio Attending Pr [...] Unavailable BROWN, MICHAEL A Referring Unavailable Rubio NITROCELLULOSE OPERATOR-C, Rufina Lerma Attending Pr ovider Ramiro NITROCELLULOSE OPERATORTrayC, Rufina Lerma Primary Care Provider Rufina Rubio [...] Translations: [aspirin] Drug Allergy 12-17-19 vomiting, Nausea [facility] (20 sources) Haloperidol; Translations: [haloperidol] Drug Allergy 12-17-19 21 jaw locked sideways, Anaphylaxis [facility] (20 sources) hydrOXYzine; Translations: [hydroxyzine] Drug Allergy 12-17-19 21 rash, vomiting, Hives [facility] (7 sources) Ketorolac; Translations: [ketorolac] Drug Allergy migraines [facility] (20 sources) Magnesium Sulfate; Translations: [magnesium sulfate] Drug Allergy 12-17-19 21 vomiting [facility] (20 sources) metroNIDAZOLE; Translations: [metronidazole] Drug Allergy 12-17-19 21 vomiting, Hives [facility] (20 sources) Naproxen; Translations: [naproxen] Drug Allergy 12-17-19 21 Other [facility] (20 sources) NSAIDs; Translations: [NSAIDs] Drug allergy 04-23-20 23 Other [facility] (20 sources) Sulfamethoxazole / Trimethoprim; Translations: [sulfamethoxazole-t rimethoprim] Drug Allergy 05-26-20 23 vomiting [facility] (15 sources) Sulfamethoxazole; Translations: [sulfamethoxazole] Drug Allergy 12-17-19 21 [facility] (20 sources) Trimethoprim; Translations: [trimethoprim] Drug Allergy 12-17-19 21 [facility] (15 sources) NSAIDS (Non-Steroidal Anti-Inflamma; Translations: [NSAIDS (Non-Steroidal Anti-Inflamma] Allergy to substance 12-17-19 [facility] (1 source) Aspirin Drug Allergy 10-08-19 15 [facility] (1 source) Haloperidol Drug Allergy 10-08-19 15 [facility] (1 source) hydrOXYzine Drug Allergy 09-14-19 16 [facility] (1 source) Iothalamate Drug Allergy 09-16-19 16 [facility] (1 source) Ketorolac Drug Allergy 09-14-19 16 [facility] (1 source) Magnesium Sulfate Drug Allergy 10-08-19 15 [facility] (1 source) metroNIDAZOLE Drug Allergy 10-08-19 15 [facility] (1 source) Naproxen Drug Allergy 10-08-19 15 [facility] (1 source) NSAIDs Drug allergy (disorder) 10-08-19 15 [facility] (1 source) Sulfonamides (Antibiotic) Drug allergy (disorder) 10-08-19 15 [facility] (20 sources) Aluminum aspirin Drug Allergy 04-23-20 23 [facility] (20 sources) Ketorolac Allergy to substance 05-26-20 23 [facility] (20 sources) Ketorolac trometamol Propensity to adverse reactions 04-23-20 [facility] (20 sources) Magnesium Salicylate Drug Allergy 05-26-20 Other [facility] (20 sources) Magnesium sulfate Propensity to adverse reactions 04-23-20 [facility] (20 sources) Metoclopramide Drug Allergy 04-23-20 [facility] (20 sources) Penicillins Drug Allergy 05-26-20 [facility] (20 sources) Sulfonamides (Antibiotic) Drug Allergy 05-26-20 [facility] (6 sources) Sulfacetamide; Translations: [sulfacetamide] Drug Allergy 10-16-19 [facility] (20 sources) Sulfur; Translations: [sulfur] Drug Allergy 10-16-19 [facility] (1 source) Aspirin Drug Allergy 07-22-19 [facility] (1 source) Haloperidol Drug Allergy 07-22-19 [facility] (1 source) hydrOXYzine Drug Allergy 07-22-19 [facility] (1 source) Magnesium Sulfate Drug Allergy 07-22-19 [facility] (1 source) metroNIDAZOLE Drug Allergy 07-22-19 [facility] (1 source) Naproxen Drug Allergy 07-22-19 [facility] Medications Current Medications Medication Drug Class(es) Dates Sig (Normalized) Sig (Original) acetaminophen 325 mg / oxyCODONE hydrochloride 5 mg oral tablet (16 sources) Opioid Agonist Start: 05-19-2024 Percocet 5 mg-325 mg oral tablet See Instructions, 40 tab(s), Refill(s) 0, 1-2 tab(s) Oral q4hr, [facility] [id number], 159, cm, 05/05/24 7:05:00 EDT, Height/Length Dosing, [...] Weight Dosing Start Date: 05/30/21 Status: Ordered [id number] 200 actuat albuterol 0.09 mg/actuat metered dose [...] constipation, # 20 cap(s), Refills(s) 0, Pharmacy: [facility] [id number], 159, cm, 05/05/24 7:05:00 EDT, Height/Length Dosing, 54.6, kg, 05/05/24 7:05:00 EDT, Weight Dosing Start Date: 05/19/24 Status: Ordered Quantity: 20.0 Unit: cap(s) Repeat number: 1 Start: 05-30-2021 take 1 capsule by mo [facility] twice daily as needed for constipation Colace 100 mg Cap 100 mg = 1 cap(s), Oral, BID, PRN for constipation, # 20 cap(s), Refills(s) 0, Pharmacy: [facility] 858, 156, cm, 05/21/21 [...] inhaler (20 sources) Corticosteroid, beta2-Adrenergic Agonist fluticasone-salmet darline (Advair HFA) 45-21 MCG/ACT inhaler Advair HFA [...] 8-10, # 4 cap(s), Refills(s) 0, Pharmacy: [facility] 858, 155, cm, 06/08/21 [...] procedure, # 2 tab(s), Refills(s) 0, Pharmacy: [facility] [id number], 156, cm, 10/27/22 14:36:00 EDT, Height/Length Dosing, [...] 05-29-2019 Episodic Other aftercare (1 source) Other [facility]iary (current) drug therapy; Translations: [OTH NURSING HOME CURRENT DRUG THERAPY] Onset: 07-23-2022 Episodic Other [...] Follitropin Qn 14.5 m[IU]/mL Invalid Interpretation Code [facility] Comment on above: Result Comment: Adul t Female Range Follicular phase 3.5 - 12.5 Ovulation phase 4.7 - 21.5 Luteal phase 1.7 - 7.7 Postmenopausal 25.8 - 134.8 Performed at: [address] [id number] PhD Nii Pearce Performed By: #### 1 [id number] #### [facility] [address] [place] [address] Lutropin Qn 18.5 m[IU]/mL Invalid Interpretation Code [facility] Comment on above: Result Comment: Adul t Female Range Follicular phase 2.4 - 12.6 Ovulation phase 14.0 - 95.6 Luteal phase 1.0 - 11.4 Postmenopausal 7.7 - 58.5 Performed By: #### 1 [id number] #### [facility] [address] [place] [address] Geronimo 09-29-2024 L - -------- Specimen: [id number] Received: 09/29/24 Status: ANGELICABibiana Jannie Num: [id number] Spec Type: Surgical Subm Dr: Dara Hardy MD Tissues: A BREAST CORE NO CALCS (RT BREAST 12:00 6 CM FROM NI) Procedures: HE/4, Gross/Micro L4 -------- Age/ Patient Sex Location Account Attending Physician -------- ToddblasArchana Jose 48/F MELA [id number] Rufina Jenkins -------- SPEC NUM: [id number] RECD: 09/29/24 STATUS: BECKA NAIR NUM: [id number] GARETH: 09/29/24- [facility] DR: Dara Hardy MD ENTERED: 09/29/[address] [facility] [address]: Rufina Rubio SPEC TYPE: Surgical DEPT: [...] 54 hours and 30 minutes (2, ns, [id number] A) KASSIE -------- Specimen: [id number] Received: 09/29/24 Status: BECKA Jannie Num: [id number] Spec Type: Surgical Subm Dr: Dara Hardy MD Tissues: A BREAST CORE NO CALCS (RT BREAST 12:00 6 CM FROM NI) Procedures: HE/Mary Graff/Vladimir L4 -------- Patient: Archana Joy [id number] (Continued) -------- Specimen: [id number] Received: 09/29/24 (Continued) Signed (signature on file) Leonidas Contreras MD 10/02/24 1053 -------- Specimen: [id number] Received: 09/29/24 Status: BECKA Nair Num: [id number] Spec Type: Surgical Subm Dr: Dara Hardy MD Tissues: A BREAST CORE NO CALCS (RT BREAST 12:00 6 CM FROM NI) Procedures: HE/Prerna, Gross/Micro L4 -------- Patient: Archana Joy N [id number] (Continued) -------- Specimen: [id number] Received: 09/29/24 (Continued) Microscopic Description Microscopic examination is performed. CPT Codes 43268 -------- -------- Specimen: [id number] Received: 09/29/24 Status: BECKA Nair Num: [id number] Spec Type: Surgical Subm Dr: Dara Hardy MD Tissues: A BREAST CORE NO CALCS (RT BREAST 12:00 6 CM FROM NI) Procedures: HE/Prerna, Gross/Micro L4 -------- Patient: Archana Joy Jose [id number] (Continued) -------- Signed (signature on file) Leonidas Contreras MD 10/02/24 1053 Normal [facility] MM post biopsy RT w/CADkamilla MM post biopsy RT w/CAD [address] [address] Ultrasound Report Signed with Laura Patient: Archana Joy Jose MR#: [id number] : 1975 Acct:[id number] Age/Sex: 48 / F ADM Date: 09/29/24 Loc: [place] Room: Type: [facility] Attending Dr: Rufina Rubio NITROCELLULOSE OPERATOR-C Ordering Provider: Rufina Rubio Date of Service: 09/29/24 US/US biopsy RT 1st lesion guid: R92.8 ([id number]) MM/MM post biopsy RT w/CAD: CLIP PLACEMENT Copies to: Rufina Rubio ADDENDUM 1 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 No malignancy is identified. This is believed to be concordant. Follow-up ultrasound in 6 months could be cons idered. Impression dictated by: Dara Hardy M.D.10/03/2024 1:26 PM Dictation Location: [place] [address] Addendum Dictated By: MD Dara Hardy Addendum [...] Dara Hardy M.D.09/29/2024 11:50 AM Dictation Location: [facility] Tech: Funmilayo Cortez Transcribed By: JORGE 09/29/24 1150 Dictated By: Dara Hardy MD 09/29/24 1102 Signed By: 09/29/24 1150 Normal [facility] MM diagnostic mammo BI w/CAD on 09-22-2024 MM diagnostic mammo BI w/CAD [facility] Main [place] [address] [place] [address] Ultrasound Report Signed Patient: Archana Joy MR#: [id number] : 1975 Acct:[id number] Age/Sex: 48 / F ADM Date: 09/22/24 Loc: [place] Room: Type: [facility] Attending Dr: Rufina Rubio NITROCELLULOSE OPERATOR-C Ordering Provider: Rufina Rubio Date of Service: 09/22/24 US/US breast BI limited: Breast lump in female;Breast cancer screening by mammogram ([id number]) MM/MM diagnostic mammo BI w/CAD: Breast lump [...] Ursula Kimball Jr..OGideon09/22/2024 10:15 AM Dictation Location: [facility] Tech: [facility]; Shauna Woodall Transcribed By: JORGE 09/22/24 1015 Dictated By: Joe Gold Jr, DO 09/22/24 1000 Signed By: 09/22/24 1015 Normal [facility] US bladderon 09-20-2024 bladder [facility] [place] [address] Ultrasound Report Signed Patient: Archana Joy MR#: [id number] : 1975 Acct:[id number] Age/Sex: 48 / F ADM Date: 09/20/24 Loc: Room: Type: [facility] Attending Dr: Rufina Rubio NITROCELLULOSE OPERATOR-C Ordering Provider: Rufina Rubio Date of Service: [...] 1348 Signed By: 09/20/24 1348 Normal [facility] US pelvic completeon 025 US pelvic complete [facility] [place] [address] Ultrasound Report Signed Patient: Archana Joy MR#: [id number] : 1975 Acct:[id number] Age/Sex: 48 / F ADM Date: 09/20/24 Loc: Room: Type: [facility] Attending Dr: Rufina Rubio NITROCELLULOSE OPERATOR-C Ordering Provider: Rufina Rubio Date of Service: 09/20/24 US/US pelvic complete: Recurrent UTI;Pelvic pain in female ([id number]) US/US transvaginal: PELIVIC PAIN IN FEMALE Copies [...] 09/20/24 1348 Signed By: 09/20/24 1350 Normal [facility] Urine Cultureon 08-04-2024 Bacteria identified Cx Nom (U) Reason for Exam Urinary frequency Urine ORGANISM: Escherichia coli (O:ESCCOL) [place] Count >100,000 ORGANISM: Klebsiella pneumoniae (O:KLEPNE) [place] Count 75,000 Aerobic [place] Charge (NMIC56) ---- [...] RESISTANT TO ALL B-LACTAM DRUGS. PERFORMED BY: [place] [address] PATHOLOGIST EQUIPMENT PLANNER CHRISTINA SINCLAIR M.D. Normal [facility] Comment on above: Performed By: #### C UU #### [address] Urine cultureOrdered By: Arlin Rubio on 08-04-2024 Bacteria identified Cx Nom (U) Escherichia coli Abnormal [facility] Bacteria identified Cx Nom (U) Abnormal [facility] XR Shoulder - right 2 Viewso n 05-30-2024 Imaging Result: 3 views right shoulder, Grashey/Zanca/outlet, taken today and saved to the permanent medical record are reviewed. No fractures. [facility] Radiology Study observation (narrative) [facility] Main OR Intraoperative Recor don 05-22-2024 Main OR Intraoperative Record Main OR Intraoperative Record IntraOp Document Type FT Summary Primary Physician: Michael Henderson DO Finalized Date/Time: 05/22/24 09:22:47 Pt. Name: ARCHANA JOY/Sex: 1975 Female Med Rec #: [id number] Physician: Michael Henderson DO Financial #: [id number] Pt. Type: A Room/Bed: AS15 Admit/Disch: 05/19/24 [...] 2 Entry 3 Case Attendee Pancho HARKINS, PRIVATE DUTY RN, Queen Beatriz MILLER, Michael Tanner MECHANICAL PRODUCT DESIGN ENGINEER, Diane Swan Role Performed PRIVATE DUTY RN Surgeon - Primary MECHANICAL PRODUCT DESIGN ENGINEER/SA Time In 05/19/24 09:13:00 05/19/24 09:40:00 05/19/24 09:13:00 Time Out 05/19/24 10:41:00 05/19/24 10:30:00 05/19/24 10:41:00 Procedure SHOULDER ARTHROSCOPY W/ SHOULDER ARTHROSCOPY W/ SHOULDER ARTHROSCOPY W/ POSSIBLE REPAIR(Right) POSSIBLE REPAIR(Right) POSSIBLE REPAIR(Right) Comments DR. DONALD CHEMISTRY PROFESSOR Last Modified By: Nitin Hernandez Ii, Alfons Ii F Letrondo, Alfons Ii F 05/19/24 10:47:50 05/19/24 10:48:01 05/19/24 10:47:50 Entry 4 Entry 5 Case Attendee Miesha Davis Alfons Ii F Role Performed Scrub - Primary Ship Keeper - Primary Time In 05/19/24 09:13:00 05/19/24 09:13:00 Time Out 05/19/24 10:41:00 05/19/24 10:41:00 Procedure SHOULDER ARTHROSCOPY W/ SHOULDER ARTHROSCOPY W/ POSSIBLE REPAIR(Right) POSSIBLE REPAIR(Right) Comments Last Modified By: Nitin Hernandez Ii, Alfons Ii F 05/19/24 10:47:50 05/19/24 10:47:50 General Comments: CATRACHO GAO FROM [email or web address] IS IN 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 Yes Last Modified By: Mary Silverlaw Robertson F 05/19/24 10:01:30 Post-Care Text: The patient is free from signs and symptoms of injury caused by extraneous objects Patient Positioning FT Pre-Care Text: Identifies physical a (more content not included)... Normal [facility] Discharge Instructionson Discharge Instructions Discharge Instructions ARCHANA [...] EST Comments: Call for any problems. Where: [address] [place] [address]- [employer] (1) Medications What How Much When Instructions Next Dose New acetaminophen-oxycodo ne (Percocet 5 mg-325 mg oral tablet) See instructions 1-2 tab(s) Oral q4hr Pickup at [facility] [id number] New docusate (Colace 100 mg Cap) 1 Capsules By Mouth 2 times a day as needed for for constipation Pickup at [facility] [id number] New gabapentin (gabapentin 300 mg Cap) 1 Capsules By Mouth 3 times a day Duration: 14 Days Pickup at [facility] [id number] Unchanged albuterol (albuterol 0.083% Inh Ana Lilia [...] Mouth 2 times a day Pharmacy Information [facility] [id number]: [address] [place], [place] [id number] [phone] Test Results No qualifying data available. Allergies [...] EYELET WITH #2 FIBERWIRE 05/19/2024 Education Materials [place], [place] [facility] AFTER YOUR SHOULDER ARTHROSCOPY [...] be c (more content not included)... Normal [facility] Comment on above: Result Comment: Elec tronically Signed By: Essie TRIPP, Henna Montalvo\.br\Date and Time Signed: 05/19/24 11:11 EST Inpatient Patient Summaryon 05-19-2024 Inpatient Patient Summary Inpatient Patient Summary [place] [id number] [facility] Clinical Discharge Instructions PERSON INFORMATION Name: ARCHANA JOY PHYSICIANS Admitting Physician: Michael Henderson DO Attending Physician: Michael Henderson DO PCP: Cande Hinds MD Discharge Diagnosis: Comment: PATIENT EDUCATION INFORMATION Instructions: Jessica Henderson - After Your Shoulder Arthroscopy (Custom) Medication Leaflets: Follow up: MEDICATION LIST New Medications [facility] [id number], [address] [place], [place] [id number], [phone] acetaminophen-oxycodo ne (Percocet 5 mg-325 mg oral [...] Mouth 2 times a day. Comment: Normal [facility] Main OR PACU I Recordon 0 Main OR PACU I Record Main OR PACU I Rec ord PACU Phase I Document Type FT Summary Primary Physician: Michael Henderson DO Finalized Date/Time: 05/19/24 12:20:11 Pt. Name: ARCHANA JOY./Sex: 1975 Female Med Rec #: [id number] Physician: Michael Henderson DO Financial #: [id number] Pt. Type: A Room/Bed: [place] [address] Admit/Disch: 05/19/24 06:22:55 - Institution: Case Times [...] By: Birdie Bennett RN 05/19/24 12:[address] [facility] Main OR Preoperative Recordo n 05-19-2024 Main OR Preoperative Record Main OR Preoperative Record PreOp Document Type FT Summary Primary Physician: Michael Henderson DO Finalized Date/Time: 05/19/24 09:57:42 Pt. Name: ARCHANA JOY/Sex: 1975 Female Med Rec #: [id number] Physician: Michael Henderson DO Financial #: [id number] Pt. Type: A Room/Bed: [place] [address] Admit/Disch: 05/19/24 06:22:55 - Institution: Case Times [...] By: Nitin Hernandez Ii 05/19/24 09:[address] [facility] Operative Reporton Operative Report Operative Report Patient: ARCHANA JOY Age: 48 years Sex: Female : 1975 Associated Diagnoses: None Author: Michael Henderson DO DATE OF SURGERY: 05/19/2024 SURGEON: Michael Henderson D.O. MERCHANDISE MARKER: Diane Tanner CFA PREOPERATIVE DIAGNOSIS: Rotator cuff [...] anchor OPERATIVE INDICATIONS: Archana is a 48-year-old ndxan-xzxx-gblcklek female who has a history of right [...] placed. Bursectomy was carried out with the Shirland wand and shaver. The Prolene suture was [...] the great (more content not included)... Normal [facility] Comment on above: Result Comment: Elec tronically Signed By: Michael Henderson DO\.br\Date and Time Signed: 05/19/24 11:07 EST Outpatient Surgery Discharge Instructionon 05-19-2024 Outpatient Surgery Discharge Instruction Outpatient Surgery Discharge Instruction [place] [address] Patient Discharge Instructions PERSON INFORMATION Name: TODDBLAS [...] to serve you. Thank you for choosing [facility] HERE ARE THE MEDICATION CHANGES THAT OCCURRED DURING YOUR HOSPITAL STAY New Medications [facility] [id number], [address] [place], [place] [id number], [phone] acetaminophen-oxycodo ne (Percocet 5 mg-325 mg oral [...] times a day. PATIENT EDUCATION INFORMATION Instructions: [place], [place] [facility] AFTER YOUR SHOULDER ARTHROSCOPY [...] The br (more content not included)... Normal [facility] Proceduralon 05-19-2024 Procedural Procedural Patient: ARCHANA JOY [...] Using maximal sterile barrier technique per current [facility] guidelines including hand hygeine, Guidance (Ultrasound used [...] Pancho CRNA under Dr Donald's supervision.. Normal [facility] XR Chest 2 Viewson 4 XR Chest [...] mGy = na DAP = na Normal [facility] BMPon 05-04-2024 Anion gap [Moles/Vol] 9 mmol/L Normal 6-16 [facility] Comment on above: Performed By: #### 2 [id number] #### [facility] [address] [place] [address] Calcium [Mass/Vol] 9.3 mg/dL Normal 8.9-11.1 [facility] Comment on above: Performed By: #### 2 [id number] #### [facility] [address] [place] [address] Chloride [Moles/Vol] 103 mmol/L Normal 101-111 [facility] Comment on above: Performed By: #### 2 [id number] #### [facility] [address] [place] [address] CO2 [Moles/Vol] 28 mmol/L Normal 21-31 [facility] Comment on above: Performed By: #### 2 [id number] #### [facility] [address] [place] [address] Creatinine [Mass/Vol] 0.6 mg/dL Normal 0.5-1.3 [facility] Comment on above: Performed By: #### 2 [id number] #### [facility] [address] [place] [address] Glucose [Mass/Vol] 97 mg/dL Normal 55-199 [facility] Comment on above: Performed By: #### 2 [id number] #### [facility] [address] [place] [address] Potassium [Moles/Vol] 3.6 mmol/L Normal 3.5-5.3 [facility] Comment on above: Performed By: #### 2 [id number] #### [facility] [address] [place] [address] Sodium [Moles/Vol] 136 mmol/L Normal 135-145 [facility] Comment on above: Performed By: #### 2 [id number] #### [facility] [address] [place] [address] Urea nitrogen [Mass/Vol] 9 mg/dL Normal 5-21 [facility] Comment on above: Performed By: #### 2 [id number] #### [facility] [address] [place] [address] Urea nitrogen/Creatinine [Mass ratio] 15 No Units Normal 10-20 [facility] Comment on above: Performed By: #### 2 [id number] #### [facility] [address] [place] [address] CBC w/ Auto Diffon 4 Basophils/100 WBC (Bld) 0.7 % Normal 0.0-2.0 [facility] Comment on above: Performed By: #### 2 [id number] #### [facility] [address] [place] [address] Basophils/Leukocytes Auto (Bld) [Pure # fraction] 0.1 E9/L Normal 0.0-0.2 [facility] Comment on above: Performed By: #### 2 [id number] #### [facility] [address] [place] [id number] Eosinophils (Bld) [#/Vol] 0.1 E9/L Normal 0.0-0.5 [facility] Comment on above: Performed By: #### 2 [id number] #### [facility] [address] [place] [address] Eosinophils/100 WBC (Bld) 1.1 % Normal 0.0-8.0 [facility] Comment on above: Performed By: #### 2 [id number] #### [facility] [address] [place] [address] Erythrocyte distribution width (RBC) [Ratio] 13.4 % Normal 10.9-14.2 [facility] Comment on above: Performed By: #### 2 [id number] #### [facility] [address] [place] [address] Hematocrit (Bld) [Volume fraction] 41.2 % Normal 34.0-46.0 [facility] Comment on above: Performed By: #### 2 [id number] #### [facility] [address] [place] [address] Hemoglobin (Bld) [Mass/Vol] 14.2 g/dL Normal 12.0-16.0 [facility] Comment on above: Performed By: #### 2 [id number] #### [facility] [address] [place] [address] Lymphocytes (Bld) [#/Vol] 2.9 E9/L Normal 1.0-4.0 [facility] Comment on above: Performed By: #### 2 [id number] #### [facility] [address] [place] [address] Lymphocytes/100 WBC (Bld) 36.1 % Normal 14.0-50.0 [facility] Comment on above: Performed By: #### 2 [id number] #### [facility] [address] [place] [address] MCH (RBC) [Entitic mass] 31.7 pg Normal 27.0-34.0 [facility] Comment on above: Performed By: #### 2 [id number] #### [facility] [address] [place] [address] MCHC (RBC) [Mass/Vol] 34.4 g/dL Normal 31.4-36.0 [facility] Comment on above: Performed By: #### 2 [id number] #### [facility] [address] [place] [address] MCV (RBC) [Entitic vol] 92.2 fL Normal 80.0-100.0 [facility] Comment on above: Performed By: #### 2 [id number] #### [facility] [address] [place] [address] Monocytes (Bld) [#/Vol] 0.6 E9/L Normal 0.2-1.0 [facility] Comment on above: Performed By: #### 2 [id number] #### [facility] [address] [place] [address] Neutrophils (Bld) [#/Vol] 4.4 E9/L Normal 2.0-7.5 [facility] Comment on above: Performed By: #### 2 [id number] #### [facility] [address] [place] [address] Neutrophils/100 WBC (Bld) 55.2 % Normal 36.0-75.0 [facility] Comment on above: Performed By: #### 2 [id number] #### [facility] [address] [place] [address] Platelet mean volume (Bld) [Entitic vol] 9.3 fL Normal 6.4-10.8 [facility] Comment on above: Performed By: #### 2 [id number] #### [facility] [address] [place] [address] Platelets (Bld) [#/Vol] 207.0 E9/L Normal 150.0-500.0 [facility] Comment on above: Performed By: #### 2 [id number] #### [facility] [address] [place] [address] RBC (Bld) [#/Vol] 4.5 E12/L Normal 4.3-5.9 [facility] Comment on above: Performed By: #### 2 [id number] #### [facility] [address] [place] [address] WBC corrected for nucl RBC Auto (Bld) [#/Vol] 8.0 E9/L Normal 4.0-11.0 [facility] Comment on above: Performed By: #### 2 [id number] #### [facility] [address] [place] [address] CHEMISTRYOrdered By: SYSTEM SYSTEM on 05-04-2024 Anion [...] 05-04-2024 eGFR 112 mL/min/1.73 m2 Normal >=59 [facility] Comment on above: Performed By: #### 1 [id number] ####[facility] [address] [place] [address] MR SHOULDER RIGHT WO IV CONT [facility] 04-03-2024 MR SHOULDER RIGHT WO [...] Gdln Note Normal . [facility] Comment on above: Result Comment: TEST S RESULT FLAG UNITS REF RANGE LAB Clinician Provided Cytology Information No. of containers..01 ThinPrep Vial Age Algo ACOG Judi... 30-65 01 FLAG LEGEND: L-Low Normal,H-High Normal,LL-Alert Low,HH-Alert High <-Panic Low,>-Panic High,A-Abnormal,AA-Critical Abnormal Performed at: 01 =G [address] [address] Adriane Sherman MD, Performed By: #### P AP [id number], VAGINITIS+ #### [facility] , PAP HPV HR Negative Normal Negative [facility] Comment on above: Result Comment: This nucleic acid amplification test detects fourteen high- risk HPV types (16,18,31,33,35,39,45,51,52,56,58,59,66,68) without differentiation. Performed at: = - [facility] [address] [id number] [place] C[place]: Adriane Sherman MD, Phone: [phone] Performed at: - [facility] [id number] [place]: Adriane Sherman MD, Phone: [phone] PERFORMED BY: [address] [place] [address] PATHOLOGIST EQUIPMENT PLANNER MARINE WARD M.D. Performed By: #### P AP [id number], VAGINITIS+ #### [facility] , Pap Image Guided Note Normal . [facility] Comment on above: Result Comment: TEST S RESULT FLAG UNITS REF RANGE LAB DIAGNOSIS: 02 NEGATIVE FOR INTRAEPITHELIAL LESION OR MALIGNANCY. CELLULAR CHANGES ASSOCIATED WITH INFLAMMATION ARE PRESENT. Specimen adequacy: 02 Satisfactory for evaluation. No endocervical component is identified. Performed by: 02 Katy Champagne, Vb Developer (ASCP) . 02 Note: Note 02 The [...] <-Panic Low,>-Panic High,A-Abnormal,AA-Critical Abnormal Performed at: [address] [address] Adriane Sherman MD, Performed By: #### P AP [id number], VAGINITIS+ #### [facility] , Vaginitis Plus (VG+)on 02-01 Atopobium Vaginae High - 2 Critically abnormal . [facility] Comment on above: Order Comment: SOURC E OF SPECIMEN: APTIMA Result Comment: This test was developed and its performance characteristics determined by [facility]. It has not been cleared or approved by the Food and Drug Administration. Performed By: #### P AP [id number], VAGINITIS+ #### [facility] , BVAB2 High - 2 Critically abnormal . [facility] Comment on above: Order Comment: SOURC E OF SPECIMEN: APTIMA Result Comment: This test was developed and its performance characteristics determined by [facility]. It has not been cleared or approved by the Food and Drug Administration. Performed By: #### P AP [id number], VAGINITIS+ #### [facility] , Yuki Albicans, MICHAEL Negative Normal Negative [facility] Comment on above: Order Comment: SOURC E OF SPECIMEN: APTIMA Result Comment: This test was developed and its performance characteristics determined by [facility]. It has not been cleared or approved by the Food and Drug Administration. Performed By: #### P AP [id number], VAGINITIS+ #### [facility] , Yuki Glabrata, MICHAEL Negative Normal Negative [facility] Comment on above: Order Comment: SOURC E OF SPECIMEN: APTIMA Result Comment: This test was developed and its performance characteristics determined by [facility]. It has not been cleared or approved by the Food and Drug Administration. PERFORMED BY: [place] [address] [place] [address] PATHOLOGIST EQUIPMENT PLANNER MARINE WARD M.D. Performed By: #### P AP [id number], VAGINITIS+ #### [facility] , Chlamydia Trachomotis, MICHAEL Negative Normal Negative [facility] Comment on above: Order Comment: SOURC E OF SPECIMEN: APTIMA Performed By: #### P AP [id number], VAGINITIS+ #### [facility] , Megasphaera High - 2 Critically abnormal . [facility] Comment on above: [...] of BV. Performed By: #### P AP [id number], VAGINITIS+ #### [facility] , Neisseria Gonorrhoeae, MICHAEL Negative Normal Negative [facility] Comment on above: Order Comment: SOURC E OF SPECIMEN: APTIMA Result Comment: Perf ormed at: =G - [facility] [address] [place] [id number] [place] Cutter: Adriane Sherman MD, Phone: [phone] Performed By: #### P AP [id number], VAGINITIS+ #### [facility] , Tric Vag MICHAEL Negative Normal Negative [facility] Comment on above: Order Comment: SOURC E OF SPECIMEN: APTIMA Performed By: #### P AP [id number], VAGINITIS+ #### [facility] , Alanine aminotransferase [En zymatic activity/volume] in Serum or PlasmaOrdered By: Rufina Rubio on 09-28-2023 ALT [Catalytic activity/Vol] 7 U/L 7-52 [facility] Albumin [Mass/volume] in Ser um or Plasma by Bromocresol green (BCG) dye binding methoOrdered By: Rufina Rubio on 09-28-2023 Albumin BCG dye [Mass/Vol] 4.9 g/dL 3.5-5.7 [facility] Alkaline phosphatase [Enzyma tic activity/volume] in Serum or PlasmaOrdered By: Rufina Rubio on 09-28-2023 ALP [Catalytic activity/Vol] 100 U/L 34-104 [facility] Aspartate aminotransferase [ Enzymatic activity/volume] in Serum or PlasmaOrdered By: Rufina Rubio on 09-28-2023 AST [Catalytic activity/Vol] 11 U/L 13-39 [facility] Bilirubin.total [Mass/volume ] in Serum or PlasmaOrdered By: Rufina Rubio on 09-28-2023 Bilirubin [Mass/Vol] 0.3 mg/dL 0.3-1.0 [facility] Calcium [Mass/volume] in Ser um or PlasmaOrdered By: Rufina Rubio on 09-28-2023 Calcium [Mass/Vol] 9.7 mg/dL 8.6-10.3 [facility] Carbon dioxide, total [Moles /volume] in Serum or PlasmaOrdered By: Rufina Rubio on 09-28-2023 CO2 [Moles/Vol] 29.3 mmol/L 21.0-31.0 [facility] Chloride [Moles/volume] in S siddhartha or PlasmaOrdered By: Rufina Rubio on 09-28-2023 Chloride [Moles/Vol] 107 mmol/L 98-107 [facility] Creatinine [Mass/volume] in Serum or PlasmaOrdered By: Rufina Rubio on 03-19-2024 Creatinine [Mass/Vol] 0.60 mg/dL 0.60-1.20 [facility] Ferritin [Mass/volume] in Se rum or PlasmaOrdered By: Rufina Rubio on 09-28-2023 Ferritin [Mass/Vol] 72.4 ng/mL 11.0-306.8 [facility] Folate [Mass/volume] in Seru m or PlasmaOrdered By: Rufina Rubio on 09-28-2023 Folate [Mass/Vol] 6.3 ng/mL >5.9 [facility] Comment on above: Folate reference ran ge: >5.9 ng/mlThe WHO technical consultation on folate and vitamin [id number] has determined that folate concentrations lessthan 4 ng/ml are considered deficient. Globulin Calc (S) [Mass/Vol] Ordered By: Rufina Rubio on 09-28-2023 Globulin (S) [Mass/Vol] 2.2 g/dL [facility] Glucose [Mass/volume] in Ser um or PlasmaOrdered By: uRfina Rubio on 09-28-2023 Glucose [Mass/Vol] 90 mg/dL 70-100 [facility] Comment on above: ADA recommended refe rence rangeRandom Glucose Reference Range is dependent on time and content of last meal. Glucose of more than 200 mg/dL in a nonstressed, ambulatory subject supports the diagnosis of Diabetes Mellitus. Iron [Mass/volume] in Serum or PlasmaOrdered By: Rufina Rubio on 09-28-2023 Iron [Mass/Vol] 92 ug/dL 50-212 [facility] Iron binding capacity [Mass/ volume] in Serum or PlasmaOrdered By: uRfina Rubio on 09-28-2023 Iron binding capacity [Mass/Vol] 323 ug/dL 255-450 [facility] Iron saturation [Mass Fracti on] in Serum or PlasmaOrdered By: Rufina Rubio on 09-28-2023 Iron saturation [Mass fraction] 28.5 % 20-50 [facility] No Panel InformationOrdered By: Rufina Rubio on 09-28-2023 Estimated GFR (CKD-EPI) > 60.0 mL/Min [facility] Creatinine Clearance (Chem N/A [facility] Potassium [Moles/volume] in Serum or PlasmaOrdered By: Rufina Rubio on 09-28-2023 Potassium [Moles/Vol] 3.9 mmol/L 3.5-5.1 [facility] Protein [Mass/volume] in Ser um or PlasmaOrdered By: Rufina Rubio on 09-28-2023 Protein [Mass/Vol] 7.1 g/dL 6.4-8.9 [facility] Serum or plasma albumin/glob ulin mass ratioOrdered By: Rufina Rubio on 09-28-2023 Albumin/Globulin [Mass ratio] 2.2 {ratio} [facility] Serum or plasma anion gap de terminationOrdered By: Rufina Rubio on 09-28-2023 Anion gap [Moles/Vol] 8.6 mmol/L 6.0-15.0 [facility] Sodium [Moles/volume] in Ser um or PlasmaOrdered By: Rufina Rubio on 09-28-2023 Sodium [Moles/Vol] 141 mmol/L 136-145 [facility] Thyrotropin [Units/volume] i n Serum or PlasmaOrdered By: Rufina Rubio on 09-28-2023 TSH Qn 2.58 m[IU]/L 0.45-5.33 [facility] Thyroxine (T4) free [Mass/vo lume] in Serum or PlasmaOrdered By: Rufina Rubio on 09-28-2023 Free T4 [Mass/Vol] 0.86 ng/dL 0.61-1.12 [facility] Transferrin [Mass/volume] in Serum or PlasmaOrdered By: Rufina Rubio on 09-28-2023 Transferrin [Mass/Vol] 231 mg/dL 203-362 [facility] Urea nitrogen [Mass/volume] in Serum or PlasmaOrdered By: Rufina Rubio on 09-28-2023 Urea nitrogen [Mass/Vol] 10 mg/dL 7-25 [facility] Vitamin B12 ser/plasOrdered By: Rufina Rubio on 09-28-2023 Cobalamin (Vitamin B12) [Mass/Vol] 6683 pg/mL 180-914 [facility] Aerobic cultureOrdered By: Kingsley Galeana on 05-26-2023 Bacteria identified Aer cx Nom (Unsp spec) 2 Days [facility] Alanine aminotransferase [En zymatic activity/volume] in Serum or PlasmaOrdered By: Rufina Rubio on 03-19-2023 ALT [Catalytic activity/Vol] 7 U/L 7-52 [facility] Albumin [Mass/volume] in Ser um or Plasma by Bromocresol green (BCG) dye binding methoOrdered By: Rufina Rubio on 03-19-2023 Albumin BCG dye [Mass/Vol] 4.3 g/dL 3.5-5.7 [facility] Alkaline phosphatase [Enzyma tic activity/volume] in Serum or PlasmaOrdered By: Rufina Rubio on 03-19-2023 ALP [Catalytic activity/Vol] 100 U/L 34-104 [facility] Aspartate aminotransferase [ Enzymatic activity/volume] in Serum or PlasmaOrdered By: Rufina Rubio on 03-19-2023 AST [Catalytic activity/Vol] 10 U/L 13-39 [facility] Basophils Auto (Bld) [#/Vol] Ordered By: Rufina Rubio on 03-19-2023 Basophils (Bld) [#/Vol] 0.0 10*3/uL 0.0-0.2 [facility] Basophils/100 WBC Auto (Bld) Ordered By: Rufina Rubio on 03-19-2023 Basophils/100 WBC (Bld) 0.4 % . [facility] Bilirubin.total [Mass/volume ] in Serum or PlasmaOrdered By: Rufina Rubio on 03-19-2023 Bilirubin [Mass/Vol] 0.3 mg/dL 0.3-1.0 [facility] Calcium [Mass/volume] in Ser um or PlasmaOrdered By: Rufina Rubio on 03-19-2023 Calcium [Mass/Vol] 9.6 mg/dL 8.6-10.3 [facility] Carbon dioxide, total [Moles /volume] in Serum or PlasmaOrdered By: Rufina Rubio on 03-19-2023 CO2 [Moles/Vol] 29.4 mmol/L 21.0-31.0 [facility] Chloride [Moles/volume] in S siddhartha or PlasmaOrdered By: Rufina Rubio on 03-19-2023 Chloride [Moles/Vol] 108 mmol/L 98-107 [facility] Cholesterol [Mass/volume] in Serum or PlasmaOrdered By: Rufina Rubio on 03-19-2023 Cholesterol [Mass/Vol] 164 mg/dL 140-200 [facility] Comment on above: Chol less than 200 m g/dl low riskChol 201-239 mg/dl borderline riskChol 240 mg/dl and greater high risk Cholesterol in LDL Calc [Mas s/Vol]Ordered By: Rufina Rubio on 03-19-2023 Cholesterol in LDL [Mass/Vol] 84 mg/dL 0-100 [facility] Comment on above: LDL ATP III CLASSIFI CATIONLDL less than 100 mg/dL OptimalLDL 100-129 mg/dL Near or above optimalLDL 130-159 mg/dL Borderline highLDL 160-189 mg/dL HighLDL greater than 189 mg/dL Very high Cholesterol in VLDL Calc [Ma ss/Vol]Ordered By: Rufina Rubio on 03-19-2023 Cholesterol in VLDL [Mass/Vol] 19 mg/dL [facility] Creatinine [Mass/volume] in Serum or PlasmaOrdered By: Rufina Rubio on 03-19-2023 Creatinine [Mass/Vol] 0.74 mg/dL 0.60-1.20 [facility] Eosinophils Auto (Bld) [#/Vo l]Ordered By: Rufina Rubio on 03-19-2023 Eosinophils (Bld) [#/Vol] 0.1 10*3/uL 0.0-0.45 [facility] Eosinophils/100 WBC Auto (Bl d)Ordered By: Rufina Rubio on 03-19-2023 Eosinophils/100 WBC (Bld) 1.5 % . [facility] Erythrocyte distribution wid th Auto (RBC) [Ratio]Ordered By: Rufina Rubio on 03-19-2023 Erythrocyte distribution width (RBC) [Ratio] 13.7 % 11.9-15.3 [facility] Ferritin [Mass/volume] in Se rum or PlasmaOrdered By: Rufina Rubio on 03-19-2023 Ferritin [Mass/Vol] 58.3 ng/mL 11.0-306.8 [facility] Folate [Mass/volume] in Seru m or PlasmaOrdered By: Rufina Rubio on 03-19-2023 Folate [Mass/Vol] 5.7 ng/mL >5.9 [facility] Comment on above: Folate reference ran ge: >5.9 ng/mlThe WHO technical consultation on folate and vitamin [id number] has determined that folate concentrations lessthan 4 ng/ml are considered deficient. Globulin Calc (S) [Mass/Vol] Ordered By: Rufina Rubio on 03-19-2023 Globulin (S) [Mass/Vol] 2.1 g/dL [facility] Glucose [Mass/volume] in Ser um or PlasmaOrdered By: Rufina Rubio on 03-19-2023 Glucose [Mass/Vol] 94 mg/dL 70-100 [facility] Comment on above: ADA recommended refe rence rangeRandom Glucose Reference Range is dependent on time and content of last meal. Glucose of more than 200 mg/dL in a nonstressed, ambulatory subject supports the diagnosis of Diabetes Mellitus. Hematocrit Auto (Bld) [Volum e fraction]Ordered By: Rufina Rubio on 03-19-2023 Hematocrit (Bld) [Volume fraction] 39.9 % 34.0-46.4 [facility] Hemoglobin [Mass/volume] in BloodOrdered By: Rufina Rubio on 03-19-2023 Hemoglobin (Bld) [Mass/Vol] 13.3 g/dL 11.8-15.4 [facility] Iron [Mass/volume] in Serum or PlasmaOrdered By: Rufina Rubio on 03-19-2023 Iron [Mass/Vol] 68 ug/dL 50-212 [facility] Iron binding capacity [Mass/ volume] in Serum or PlasmaOrdered By: Rufina Rubio on 03-19-2023 Iron binding capacity [Mass/Vol] 305 ug/dL 255-450 [facility] Iron saturation [Mass Fracti on] in Serum or PlasmaOrdered By: Rufina Rubio on 03-19-2023 Iron saturation [Mass fraction] 22.3 % 20-50 [facility] Leukocytes [#/volume] correc zakia for nucleated erythrocytes in Blood by Automated counOrdered By: Rufina Rubio on 03-19-2023 WBC corrected for nucl RBC Auto (Bld) [#/Vol] 9.6 10*3/uL 3.8-11.6 [facility] Lymphocytes Auto (Bld) [#/Vo l]Ordered By: Rufina Rubio on 03-19-2023 Lymphocytes (Bld) [#/Vol] 2.4 10*3/uL 1.00-4.8 [facility] Lymphocytes/100 WBC Auto (Bl d)Ordered By: Rufina Rubio on 03-19-2023 Lymphocytes/100 WBC (Bld) 25.6 % . [facility] MCH Auto (RBC) [Entitic mass ]Ordered By: Rufina Rubio on 03-19-2023 MCH (RBC) [Entitic mass] 30.3 pg 24.7-34.3 [facility] MCHC Auto (RBC) [Mass/Vol]Or dered By: Rufina Rubio on 03-19-2023 MCHC (RBC) [Mass/Vol] 33.3 g/dL 32.0-35.0 [facility] MCV Auto (RBC) [Entitic vol] Ordered By: Rufina Rubio on 03-19-2023 MCV (RBC) [Entitic vol] 91.1 fL 80-100 [facility] Monocytes Auto (Bld) [#/Vol] Ordered By: Rufina Rubio on 03-19-2023 Monocytes (Bld) [#/Vol] 0.7 10*3/uL 0.0-0.8 [facility] Monocytes/100 WBC Auto (Bld) Ordered By: Rufina Rubio on 03-19-2023 Monocytes/100 WBC (Bld) 7.1 % . [facility] Neutrophils Auto (Bld) [#/Vo l]Ordered By: Rufina Rubio on 03-19-2023 Neutrophils (Bld) [#/Vol] 6.2 10*3/uL 1.8-7.7 [facility] Neutrophils/100 WBC Auto (Bl d)Ordered By: Rufina Rubio on 03-19-2023 Neutrophils/100 WBC (Bld) 65.4 % . [facility] No Panel InformationOrdered By: Rufina Rubio on 03-19-2023 Estimated GFR (CKD-EPI) > 60.0 mL/Min [facility] Creatinine Clearance (Chem N/A [facility] Nucleated erythrocytes [Pres ence] in Blood by Automated countOrdered By: Rufina Rubio on 03-19-2023 Nucleated RBC Auto Ql (Bld) 0.2 /100{WBC} 0-0.5 [facility] Platelet mean volume Auto (B ld) [Entitic vol]Ordered By: Rufina Rubio on 03-19-2023 Platelet mean volume (Bld) [Entitic vol] 10.4 fL 6.3-10.7 [facility] Platelets Auto (Bld) [#/Vol] Ordered By: Rufina Rubio on 03-19-2023 Platelets (Bld) [#/Vol] 179 10*3/uL 150-450 [facility] Potassium [Moles/volume] in Serum or PlasmaOrdered By: Rufina Rubio on 03-19-2023 Potassium [Moles/Vol] 4.6 mmol/L 3.5-5.1 [facility] Protein [Mass/volume] in Ser um or PlasmaOrdered By: Rufina Rubio on 03-19-2023 Protein [Mass/Vol] 6.4 g/dL 6.4-8.9 [facility] RBC Auto (Bld) [#/Vol]Ordere d By: Rufina Rubio on 03-19-2023 RBC (Bld) [#/Vol] 4.38 10*6/uL 3.60-5.00 [facility] Serum or plasma albumin/glob ulin mass ratioOrdered By: Rufina Rubio on 03-19-2023 Albumin/Globulin [Mass ratio] 2.0 {ratio} [facility] Serum or plasma anion gap de terminationOrdered By: Rufina Rubio on 03-19-2023 Anion gap [Moles/Vol] 6.2 mmol/L 6.0-15.0 [facility] Serum or plasma high density lipoprotein (HDL) cholesterol measurementOrdered By: Rufina Rubio on 03-19-2023 Cholesterol in HDL [Mass/Vol] 60 mg/dL 23-92 [facility] Comment on above: HDL CHOL ATP-III CLA SSIFICATION Cardiovascular RiskHDL > or equal to 60 mg/dL LOWHDL < 40 mg/dL HIGH Serum or plasma total choles terol/high density lipoprotein (HDL) cholesterol mass ratOrdered By: Rufina Rubio on 03-19-2023 Cholesterol.total/Katie sterol in HDL [Mass ratio] 2.7 {ratio} <5.0 [facility] Sodium [Moles/volume] in Ser um or PlasmaOrdered By: Rufina Rubio on 03-19-2023 Sodium [Moles/Vol] 139 mmol/L 136-145 [facility] Thyrotropin [Units/volume] i n Serum or PlasmaOrdered By: Rufina Rubio on 03-19-2023 TSH Qn 1.95 m[IU]/L 0.45-5.33 [facility] Thyroxine (T4) free [Mass/vo lume] in Serum or PlasmaOrdered By: Rufina Rubio on 03-19-2023 Free T4 [Mass/Vol] 0.70 ng/dL 0.61-1.12 [facility] Transferrin [Mass/volume] in Serum or PlasmaOrdered By: Rufina Rubio on 03-19-2023 Transferrin [Mass/Vol] 218 mg/dL 203-362 [facility] Triglyceride [Mass/volume] i n Serum or PlasmaOrdered By: Rufina Rubio on 03-19-2023 Triglyceride [Mass/Vol] 99 mg/dL 0-149 [facility] Comment on above: TRIG ATP III CLASSIF ICATIONTRIG less than 150 mg/dL NormalTRIG 150-199 mg/dL Borderline highTRIG 200-500 mg/dL High TRIG greater than 500 mg/dL Very highStandard traceable to the Center for Disease Conrtrol and Prevention (CDC) test method. Urea nitrogen [Mass/volume] in Serum or PlasmaOrdered By: Rufina Rubio on 03-19-2023 Urea nitrogen [Mass/Vol] 7 mg/dL 7-25 [facility] Vitamin B12 ser/plasOrdered By: Rufina Rubio on 03-19-2023 Cobalamin (Vitamin B12) [Mass/Vol] 641 pg/mL 180-914 [facility] WBC Auto (Bld) [#/Vol]Ordere d By: Rufina Rubio on 03-19-2023 WBC (Bld) [#/Vol] 9.6 10*3/uL 3.8-11.6 [facility] Vitamin B12 ser/plasOrdered By: Rufina Rubio on 11-16-2022 Cobalamin (Vitamin B12) [Mass/Vol] 363 pg/mL 180-914 [facility] Vitamin B12 ser/plasOrdered By: Rufina Rubio on 09-21-2022 Cobalamin (Vitamin B12) [Mass/Vol] 548 pg/mL 180-914 [facility] Urine culture routineOrdered By: Rufina Rubio on 08-31-2022 Bacteria identified Cx Nom (U) Escherichia coli [facility] Basophils Auto (Bld) [#/Vol] Ordered By: Salvador Maier on 07-22-2022 Basophils (Bld) [#/Vol] 0.1 10*3/uL 0.0-0.2 [facility] Basophils/100 WBC Auto (Bld) Ordered By: Salvador Maier on 07-22-2022 Basophils/100 WBC (Bld) 1.0 % . [facility] Bilirubin Test strip Ql (U)O rdered By: Salvador Maier on 07-22-2022 Bilirubin Ql (U) Negative Negative [facility] [facility] Body fluid albumin measureme nt (mass/volume)Ordered By: Salvador Maier on 07-22-2022 Albumin (Body fld) [Mass/Vol] 3.9 g/dL 3.2-5.5 [facility] Color Auto (U)Ordered By: Nguyễn Maier on 07-22-2022 Color (U) Yellow Yellow [facility] Creatinine and Glomerular fi ltration rate.predicted panel (S/P/Bld)Ordered By: Salvador Maier on 07-22-2022 Creatinine [Mass/Vol] 0.68 mg/dL 0.44-1.03 [facility] Eosinophils Auto (Bld) [#/Vo l]Ordered By: Salvador Maier on 07-22-2022 Eosinophils (Bld) [#/Vol] 0.4 10*3/uL 0.0-0.45 [facility] Eosinophils/100 WBC Auto (Bl d)Ordered By: Salvador Maier on 07-22-2022 Eosinophils/100 WBC (Bld) 4.1 % . [facility] Erythrocyte distribution wid th Auto (RBC) [Ratio]Ordered By: Salvador Maier on 07-22-2022 Erythrocyte distribution width (RBC) [Ratio] 14.7 % 11.9-15.3 [facility] Estimated glomerular filtrat ion rate (GFR) non- AmericanOrdered By: Salvador Maier on 07-22-2022 GFR/1.73 sq M.predicted among non-blacks MDRD (S/P/Bld) [Vol rate/Area] > 60 mL/Min [facility] Globulin Calc (S) [Mass/Vol] Ordered By: Salvador Maier on 07-22-2022 Globulin (S) [Mass/Vol] 2.5 g/dL F [facility] HCG ( test) IA.rapi d Ql (U)Ordered By: Salvador Maier on 07-22-2022 HCG ( test) Ql (U) Negative [facility] Hematocrit Auto (Bld) [Volum e fraction]Ordered By: Salvador Maier on 07-22-2022 Hematocrit (Bld) [Volume fraction] 40.9 % 34.0-46.4 [facility] Hemoglobin [Mass/volume] in BloodOrdered By: Salvador Maier on 07-22-2022 Hemoglobin (Bld) [Mass/Vol] 13.3 g/dL 11.8-15.4 [facility] Ketones Auto test strip (U) [Mass/Vol]Ordered By: Salvador Maier on 07-22-2022 Ketones (U) [Mass/Vol] Negative Negative [facility] - [facility] and C hemistry - challengeOrdered By: Salvador Maier on 07-22-2022 Lipase [Catalytic activity/Vol] 70.0 U/L 22-51 [facility] Leukocytes [#/volume] correc zakia for nucleated erythrocytes in Blood by Automated counOrdered By: Salvador Maier on 07-22-2022 WBC corrected for nucl RBC Auto (Bld) [#/Vol] 8.8 10*3/uL 3.8-11.6 [facility] Lymphocytes Auto (Bld) [#/Vo l]Ordered By: Salvador Maier on 07-22-2022 Lymphocytes (Bld) [#/Vol] 3.1 10*3/uL 1.00-4.8 [facility] Lymphocytes/100 WBC Auto (Bl d)Ordered By: Salvador Maier on 07-22-2022 Lymphocytes/100 WBC (Bld) 35.0 % . [facility] MCH Auto (RBC) [Entitic mass ]Ordered By: Salvador Maier on 07-22-2022 MCH (RBC) [Entitic mass] 30.2 pg 24.7-34.3 [facility] MCHC Auto (RBC) [Mass/Vol]Or dered By: Salvador Maier on 07-22-2022 MCHC (RBC) [Mass/Vol] 32.6 g/dL 32.0-35.0 [facility] MCV Auto (RBC) [Entitic vol] Ordered By: Salvador Maier on 07-22-2022 MCV (RBC) [Entitic vol] 92.6 fL 80-100 F [facility] Monocyte distribution width [Entitic volume] in Blood by AutomatedOrdered By: Salvador Maier on 07-22-2022 Monocyte distribution width Auto (Bld) [Entitic vol] 20.62 % 0.00-20.00 [facility] Comment on above: For adults in ED, MD W > 20.0 may be associated with a higher risk of sepsis during the first 12 hrs of hospital admission Monocytes Auto (Bld) [#/Vol] Ordered By: Salvador Maier on 07-22-2022 Monocytes (Bld) [#/Vol] 0.6 10*3/uL 0.0-0.8 [facility] Monocytes/100 WBC Auto (Bld) Ordered By: Salvador Maire on 07-22-2022 Monocytes/100 WBC (Bld) 7.1 % . [facility] Neutrophils Auto (Bld) [#/Vo l]Ordered By: Salvador Maier on 07-22-2022 Neutrophils (Bld) [#/Vol] 4.6 10*3/uL 1.8-7.7 [facility] Neutrophils/100 WBC Auto (Bl d)Ordered By: Salvador Maier on 07-22-2022 Neutrophils/100 WBC (Bld) 52.8 % . [facility] Nitrite Test strip Ql (U)Ord ered By: Salvador Maier on 07-22-2022 Nitrite Ql (U) Negative Negative [facility] No Panel InformationOrdered By: Salvador Maier on 07-22-2022 Estimated GFR () > 60 mL/Min [facility] Comment on above: GFR estimated refere nce range: According to KDOQI guidelines, <60 ml/min/1.73m2 is sufficient to diagnose a patient with chronic kidney disease. Pharmacy Creatinine Clearance (Chem 90.47 [facility] Nucleated erythrocytes [Pres ence] in Blood by Automated countOrdered By: Salvador Maier on 07-22-2022 Nucleated RBC Auto Ql (Bld) 0.2 /100{WBC} 0-0.5 [facility] Platelet mean volume Auto (B ld) [Entitic vol]Ordered By: Salvador Maier on 07-22-2022 Platelet mean volume (Bld) [Entitic vol] 9.1 fL 6.3-10.7 [facility] Platelets Auto (Bld) [#/Vol] Ordered By: Salvador Maier on 07-22-2022 Platelets (Bld) [#/Vol] 202 10*3/uL 150-450 [facility] Protein Auto test strip (U) [Mass/Vol]Ordered By: Salvador Maier on 07-22-2022 Protein (U) [Mass/Vol] Negative Negative [facility] Protein [Mass/volume] in Ser um or PlasmaOrdered By: Salvador Maier on 07-22-2022 Protein [Mass/Vol] 6.4 g/dL 6.1-7.9 [facility] RBC Auto (Bld) [#/Vol]Ordere d By: Salvador Maier on 07-22-2022 RBC (Bld) [#/Vol] 4.42 10*6/uL 3.60-5.00 [facility] Serum or plasma alanine mckeon otransferase measurement without P-5'-P (enzymatic activiOrdered By: Salvador Maier on 07-22-2022 ALT No additional P-5'-P [Catalytic activity/Vol] 12 U/L 10-60 [facility] Serum or plasma albumin/glob ulin mass ratioOrdered By: Salvador Maier on 07-22-2022 Albumin/Globulin [Mass ratio] 1.6 {ratio} [facility] Serum or plasma alkaline kamron sphatase measurement (enzymatic activity/volume)Ordered By: Salvador Maier on 07-22-2022 ALP [Catalytic activity/Vol] 109 U/L 32-92 [facility] Serum or plasma anion gap de terminationOrdered By: Salvador Maier on 07-22-2022 Anion gap [Moles/Vol] 13.2 mmol/L 6.0-15.0 [facility] Serum or plasma aspartate am inotransferase measurement (enzymatic activity/volume)Ordered By: Salvador Maier on 07-22-2022 AST [Catalytic activity/Vol] 16 U/L 10-42 [facility] Serum or plasma calcium kunal urement (mass/volume)Ordered By: Salvador Maier on 07-22-2022 Calcium [Mass/Vol] 8.8 mg/dL 8.2-10.2 [facility] Serum or plasma chloride chacorta surement (moles/volume)Ordered By: Salvador Maier on 07-22-2022 Chloride [Moles/Vol] 103 mmol/L 95-114 [facility] Serum or plasma glucose kunal urement (mass/volume)Ordered By: Salvador Maier on 07-22-2022 Glucose [Mass/Vol] 102 mg/dL 70-100 [facility] Comment on above: ADA recommended refe rence rangeRandom Glucose Reference Range is dependent on time and content of last meal. Glucose of more than 200 mg/dL in a nonstressed, ambulatory subject supports the diagnosis of Diabetes Mellitus. Serum or plasma potassium me asurement (moles/volume)Ordered By: Salvador Maier on 07-22-2022 Potassium [Moles/Vol] 3.2 mmol/L 3.5-5.1 [facility] Serum or plasma sodium measu rement (moles/volume)Ordered By: Salvador Maier on 07-22-2022 Sodium [Moles/Vol] 139 mmol/L 136-146 [facility] Serum or plasma total biliru bin measurement (mass/volume)Ordered By: Salvador Maier on 07-22-2022 Bilirubin [Mass/Vol] 0.3 mg/dL 0.3-1.2 [facility] Serum or plasma total carbon dioxide measurement (moles/volume)Ordered By: Salvador Maier on 07-22-2022 CO2 [Moles/Vol] 26.0 mmol/L 22.0-30.0 [facility] Serum or plasma urea nitroge n measurement (mass/volume)Ordered By: Salvador Maier on 07-22-2022 Urea nitrogen [Mass/Vol] 4 mg/dL 04-03 [facility] Specific gravity Auto test s trip (U) [Rel density]Ordered By: Salvador Maier on 07-22-2022 Specific gravity (U) [Rel density] 1.004 1.001-1.030 [facility] Urine clarity by refractomet ry automatedOrdered By: Salvador Maier on 07-22-2022 Clarity Refractometry automated (U) Clear Clear [facility] Urine glucose measurement by automated test strip (mass/volume)Ordered By: Salvador Maier on 07-22-2022 Glucose Auto test strip (U) [Mass/Vol] Normal mg/dL Normal [facility] Urine hemoglobin detection b y automated test stripOrdered By: Salvador Maier on 07-22-2022 Hemoglobin Auto test strip Ql (U) Negative Negative [facility] Urine leukocyte esterase det ection by automated test stripOrdered By: Salvador Maier on 07-22-2022 Leukocyte esterase Auto test strip Ql (U) Negative Negative [facility] Urobilinogen Auto test strip (U) [Mass/Vol]Ordered By: Salvador Maier on 07-22-2022 Urobilinogen (U) [Mass/Vol] Normal mg/dL Normal [facility] WBC Auto (Bld) [#/Vol]Ordere d By: Salvador Maier on 07-22-2022 WBC (Bld) [#/Vol] 8.8 10*3/uL 3.8-11.6 [facility] pH Auto test strip (U)Ordere d By: Salvador Maier on 07-22-2022 pH (U) 7.0 [pH] 5.0-9.0 [facility] CBC AUTO DIFFon 07-21-2022 BASO # 0.0 103/ul Normal 0.0-0.1 [facility] Comment on above: Performed By: #### C BC ####[facility] [address] [place], [place] [address]Dr. Michaelajean-claude Maxim Basophils/100 WBC (Bld) 0.5 % Normal 0.2-2.0 [facility] Comment on above: Performed By: #### C BC ####[facility] [address] [place], [place] [address]Dr. Ruthie Pan EO # 0.5 103/ul Normal 0.0-0.7 [facility] Comment on above: Performed By: #### C BC ####[facility] [address] [place], [place] [address]Dr. Ruthie Pan Eosinophils/100 WBC (Bld) 5.8 % Normal 0.9-7.0 [facility] Comment on above: Performed By: #### C BC ####[facility] [address] [place], [place] [address]Dr. Ruthie Pan Erythrocyte distribution width (RBC) [Ratio] 14.0 % Normal 11.0-15.0 [facility] Comment on above: Performed By: #### C BC ####[facility] [address] [place], [place] [address]Dr. Ruthie Pan Hematocrit (Bld) [Volume fraction] 38.9 % Normal 36.0-48.0 [facility] Comment on above: Performed By: #### C BC ####[facility] [address] [place], [place] [address]Dr. Ruthie Pan Hemoglobin (Bld) [Mass/Vol] 13.0 g/dL Normal 12.0-16.0 [facility] Comment on above: Performed By: #### C BC ####[facility] [address] [place], [place] [address]Dr. Ruthie Pan IG # 0.02 10e3/ul Normal 0.00-0.03 [facility] Comment on above: Performed By: #### C BC ####[facility] [address] [place] [address]Dr. Ruthie Pan IG % 0.3 % Normal 0.0-0.5 [facility] Comment on above: Performed By: #### C BC ####[facility] [address] [place] [address]Dr. Ruthie Pan LYMPH # 2.8 103/ul Normal 1.2-3.8 [facility] Comment on above: Performed By: #### C BC ####[facility] [address] [place], [place] [address]Dr. Ruthie Pan Lymphocytes/100 WBC (Bld) 36.0 % Normal 20.5-60.0 [facility] Comment on above: Performed By: #### C BC ####[facility] [address] [place], [place] [address]Dr. Ruthie Pan MANUAL DIFF REQ NO Normal [facility] Comment on above: Performed By: #### C BC ####[facility] [address] [place] [address]Dr. Ruthie Maxim MCH (RBC) [Entitic mass] 30.6 pg Normal 26.7-34.0 [facility] Comment on above: Performed By: #### C BC ####[facility] [address] [place], [place] [address]Dr. Ruthie Maxim MCHC (RBC) [Mass/Vol] 33.4 g/dL Normal 29.9-35.2 [facility] Comment on above: Performed By: #### C BC ####[facility] [address] [place], [place] [address]DrGideon Pan MCV (RBC) [Entitic vol] 91.5 fL Normal 81.0-99.0 [facility] Comment on above: Performed By: #### C BC ####[facility] [address] [place], [place] [address]DrGideon Pan MONO # 0.6 103/ul Normal 0.3-0.8 [facility] Comment on above: Performed By: #### C BC ####[facility] [address] [place], [place] [address]Dr. Ruthie Pan Monocytes/100 WBC (Bld) 7.9 % Normal 1.7-12.0 [facility] Comment on above: Performed By: #### C BC ####[facility] [address] [place] [id number]. Michaelajean-claude Pan NEUT # 3.8 103/ul Normal 1.4-6.5 [facility] Comment on above: Performed By: #### C BC ####[facility] [address] [place] [address]Dr. Ruthie Pan Neutrophils/100 WBC (Bld) 49.5 % Normal 43.0-75.0 [facility] Comment on above: Performed By: #### C BC ####[facility] [address] [place] [address]Dr. Ruthie Pan Platelet mean volume (Bld) [Entitic vol] 10.6 fL Normal 9.5-13.5 [facility] Comment on above: Performed By: #### C BC ####[facility] [address] [place] [address]Dr. Ruthie Pan PLT 201 103/ul Normal 150-450 [facility] Comment on above: Performed By: #### C BC ####[facility] [address] [place] [id number]. Ruthie Pan RBC 4.25 106/ul Normal 4.20-5.40 [facility] Comment on above: Performed By: #### C BC ####[facility] [address] [place] [id number]. Ruthie Pan WBC 7.8 103/ul Normal 4.0-11.0 [facility] Comment on above: Performed By: #### C BC ####[facility] [address] [place] [id number] Pan ER URINE PROFILEon 3 Bilirubin Ql (U) Negative Normal NEGATIVE [facility] Comment on above: Performed By: #### U MICRO, ERUR #### [facility] [id number] Ruthie Pan Clarity (U) CLEAR Normal CLEAR [facility] Comment on above: Performed By: #### U MICRO, ERUR #### [facility] [address] [address] [address] Ruthie Pan Color (U) LT. YELLOW Normal YELLOW [facility] Comment on above: Performed By: #### U MICRO, ERUR #### [facility] [address] [address] [address] Ruthie CASTELLOND A micrscopic examination will be performed if indicated. Normal [facility] Comment on above: Performed By: #### U MICRO, ERUR #### [facility] [address] [address] [address] Ruthie Pan Glucose Ql (U) Negative Normal NEGATIVE [facility] Comment on above: Performed By: #### U MICRO, ERUR #### [facility] [address] [place] [address] Dr. Ruthie Pan Hemoglobin Ql (U) TRACE-LYSED Abnormal NEGATIVE [facility] Comment on above: Performed By: #### U MICRO, ERUR #### [facility] [address] [address] [address] Ruthie Pan Ketones Ql (U) Negative Normal NEGATIVE [facility] Comment on above: Performed By: #### U MICRO, ERUR #### [facility] [address] [place] [address] Dr. Ruthie Pan LEUKOCYTES Negative Normal NEGATIVE [facility] Comment on above: Performed By: #### U MICRO, ERUR #### [facility] [address] [address] [address] Ruthie Pan Nitrite Ql (U) Negative Normal NEGATIVE [facility] Comment on above: Performed By: #### U MICRO, ERUR #### [facility] [address] [address] [address] Ruthie Pan pH (U) 6.5 [pH] Normal 5-9 [facility] Comment on above: Performed By: #### U MICRO, ERUR #### [facility] [address] [place] [address] Dr. Ruthie Pan SPEC GRAVITY <=1.005 Abnormal 1.005-<=1.02 5 [facility] Comment on above: Performed By: #### U MICRO, ERUR #### [facility] [address] [address] [address] Ruthie Pan UA PROTEIN Negative Normal NEGATIVE/ TRACE [facility] Comment on above: Performed By: #### U MICRO, ERUR #### [facility] [address] [address] [address] Ruthie Pan UR MICRO IND INDICATED Normal [facility] Comment on above: Performed By: #### U MICRO, ERUR #### [facility] [address] [address] [address] Ruthie Pan Urobilinogen Qn (U) 0.2 {Harjeet'U}/dL Normal 0.2 - 1. 0 [facility] Comment on above: Performed By: #### U MICRO, ERUR #### [facility] [address] [place] [address] Dr. Ruthie Pan LACTATE/LACTIC ACIDon 2022 Lactate [Moles/Vol] 0.7 mmol/L Normal 0.4-1.9 [facility] Comment on above: Performed By: #### L ACT ####[facility] [address] [place], [place] [address]DrGideon Pan LIPASEon 07-21-2022 Lipase [Catalytic activity/Vol] 97.0 U/L Normal 73.0-393.0 [facility] Comment on above: Performed By: #### L IPA, CMP ####[facility] [address] [place] [address]DrGideon Pan PROF 14(COMP METB)on 023 Albumin [Mass/Vol] 3.6 g/dL Normal 3.4-5.0 [facility] Comment on above: Performed By: #### L IPA, CMP ####[facility] [address] [place] [address]DrGideon Pan Albumin/Globulin [Mass ratio] 1.3 {ratio} Normal [facility] Comment on above: Performed By: #### L IPA, CMP ####[facility] [address] [place] [address]Dr. Ruthie Pan ALP [Catalytic activity/Vol] 129 U/L Critically high 46-116 [facility] Comment on above: Performed By: #### L IPA, CMP ####[facility] [address] [place] [address]Dr. Ruthie Pan ALT [Catalytic activity/Vol] 13 U/L Critically low 14-59 [facility] Comment on above: Performed By: #### L IPA, CMP ####[facility] [address] [place], [place] [address]Dr. Ruthie Pan Anion gap [Moles/Vol] 10.0 mmol/L Normal [facility] Comment on above: Performed By: #### L IPA, CMP ####[facility] [address] [place], [place] [address]Dr. Michaelajean-claude Pan AST [Catalytic activity/Vol] 13 U/L Critically low 15-37 [facility] Comment on above: Performed By: #### L IPA, CMP ####[facility] [address] [place], [place] [address]Dr. Ruthie Pan Bilirubin [Mass/Vol] 0.2 mg/dL Normal 0.2-1.0 [facility] Comment on above: Performed By: #### L IPA, CMP ####[facility] [address] [place], [place] [address]Dr. Ruthie Pan Calcium [Mass/Vol] 8.5 mg/dL Normal 8.5-10.1 [facility] Comment on above: Performed By: #### L IPA, CMP ####[facility] [address] [place], [place] [address]Dr. Ruthie Pan Chloride [Moles/Vol] 104 mmol/L Normal 98-107 [facility] Comment on above: Performed By: #### L IPA, CMP ####[facility] [address] [place], [place] [address]Dr. Ruthie Pan CO2 [Moles/Vol] 29.6 mmol/L Normal 21.0-32.0 [facility] Comment on above: Performed By: #### L IPA, CMP ####[facility] [address] [place] [address]Dr. Ruthie Pan Creatinine [Mass/Vol] 0.67 mg/dL Normal 0.55-1.02 [facility] Comment on above: Performed By: #### L IPA, CMP ####[facility] [address] [place] [id number]. Ruthie Pan EGFR-AF MONGOLIAN >60 Normal >=60 [facility] Comment on above: Performed By: #### L IPA, CMP ####[facility] [address] [place] [id number]. Ruthie Maxim EGFR-NON AF MONGOLIAN >60 Normal >=60 [facility] Comment on above: Performed By: #### L IPA, CMP ####[facility] [address] [place] [address]Dr. Ruthie Maxim Globulin (S) [Mass/Vol] 2.8 g/dL Normal [facility] Comment on above: Performed By: #### L IPA, CMP ####[facility] [address] [place] [id number]. Michaelajean-claude Maxim Glucose [Mass/Vol] 106 mg/dL Normal 74-106 [facility] Comment on above: Performed By: #### L IPA, CMP ####[facility] [address] [place] [address]Dr. Ruthie Maxim Potassium [Moles/Vol] 3.6 mmol/L Normal 3.5-5.1 [facility] Comment on above: Performed By: #### L IPA, CMP ####[facility] [address] [place] [id number]. Ruthie Pan Protein [Mass/Vol] 6.4 g/dL Normal 6.4-8.2 [facility] Comment on above: Performed By: #### L IPA, CMP ####[facility] [address] [place] [address]Dr. Ruthie Pan Sodium [Moles/Vol] 140 mmol/L Normal 136-145 [facility] Comment on above: Performed By: #### L IPA, CMP ####[facility] [address] [place] [id number] Pan Urea nitrogen [Mass/Vol] 4.0 mg/dL Critically low 7.0-18.0 [facility] Comment on above: Performed By: #### L IPA, CMP ####[facility] [address] [place] [id number]. Ruthie Pan Urea nitrogen/Creatinine [Mass ratio] 6.0 mg/mg Normal [facility] Comment on above: Performed By: #### L IPA, CMP ####[facility] [address] [place] [address]Dr. Ruthie Pan URINE MICROSCOPIC ONLYon BACTERIA NONE SEEN Normal NONE SEEN [facility] Comment on above: Performed By: #### U MICRO, ERUR #### [facility] [address] [address] [address] Ruthie Pan Bacteria identified Cx Nom (U) NOT INDICATED Normal [facility] Comment on above: Performed By: #### U MICRO, ERUR #### [facility] [address] [address] [address] Ruthie Pan CAST NONE SEEN Normal NONE SEEN [facility] Comment on above: Performed By: #### U MICRO, ERUR #### [facility] [address] [address] [address] Ruthie Pan Crystals LM Nom (Urine sed) NONE SEEN Normal NONE SEEN [facility] Comment on above: Performed By: #### U MICRO, ERUR #### [facility] [address] [address] [address] Ruthie Pan Epithelial cells LM Ql (Urine sed) FEW Abnormal NONE SEEN /RARE [facility] Comment on above: Performed By: #### U MICRO, ERUR #### [facility] [address] [address] [address] Ruthie Pan MUCOUS NONE SEEN Normal NONE SEEN [facility] Comment on above: Performed By: #### U MICRO, ERUR #### [facility] [address] [address] [address] Ruthie Pan RBC 0-2 Normal 0-2 [facility] Comment on above: Performed By: #### U MICRO, ERUR #### [facility] [address] [address] [address] Ruthie Pan WBC 0-2 Abnormal NONE SEEN [facility] Comment on above: Performed By: #### U MICRO, ERUR #### [facility] [address] [address] [address] Ruthie Pan US SINGLE QUAD RT [...] KAE VILLALPANDO Date: 2022-07-21 20:21 Normal [facility] Albumin [Mass/volume] in Ser um or PlasmaOrdered By: Rufina Rubio on 07-20-2022 Albumin [Mass/Vol] 3.8 g/dL 3.2-5.5 [facility] Basophils Auto (Bld) [#/Vol] Ordered By: Rufina Rubio on 07-20-2022 Basophils (Bld) [#/Vol] 0.1 10*3/uL 0.0-0.2 [facility] Basophils/100 WBC Auto (Bld) Ordered By: Rufina Rubio on 07-20-2022 Basophils/100 WBC (Bld) 1.2 % . [facility] Cholesterol [Mass/volume] in Serum or PlasmaOrdered By: Rufina Rubio on 07-20-2022 Cholesterol [Mass/Vol] 183 mg/dL 140-200 Fi relaNorth [facility] Comment on above: Chol less than 200 m g/dl low riskChol 201-239 mg/dl borderline riskChol 240 mg/dl and greater high risk Cholesterol in LDL Calc [Mas s/Vol]Ordered By: Rufina Rubio on 07-20-2022 Cholesterol in LDL [Mass/Vol] 104 mg/dL 0-100 [facility] Comment on above: LDL ATP III CLASSIFI CATIONLDL less than 100 mg/dL OptimalLDL 100-129 mg/dL Near or above optimalLDL 130-159 mg/dL Borderline highLDL 160-189 mg/dL HighLDL greater than 189 mg/dL Very high Cholesterol in VLDL Calc [Ma ss/Vol]Ordered By: Rufina Rubio on 07-20-2022 Cholesterol in VLDL [Mass/Vol] 26 mg/dL [facility] Creatinine and Glomerular fi ltration rate.predicted panel (S/P/Bld)Ordered By: Rufina Rubio on 07-20-2022 Creatinine [Mass/Vol] 0.64 mg/dL 0.44-1.03 [facility] Eosinophils Auto (Bld) [#/Vo l]Ordered By: Rufina Rubio on 07-20-2022 Eosinophils (Bld) [#/Vol] 0.3 10*3/uL 0.0-0.45 [facility] Eosinophils/100 WBC Auto (Bl d)Ordered By: Rufina Rubio on 07-20-2022 Eosinophils/100 WBC (Bld) 3.0 % . [facility] Erythrocyte distribution wid th Auto (RBC) [Ratio]Ordered By: Rufina Rubio on 07-20-2022 Erythrocyte distribution width (RBC) [Ratio] 14.5 % 11.9-15.3 [facility] Estimated glomerular filtrat ion rate (GFR) non- AmericanOrdered By: Rufina Rubio on 07-20-2022 GFR/1.73 sq M.predicted among non-blacks MDRD (S/P/Bld) [Vol rate/Area] > 60 mL/Min [facility] Globulin Calc (S) [Mass/Vol] Ordered By: Rufina Rubio on 07-20-2022 Globulin (S) [Mass/Vol] 2.4 g/dL [facility] Hematocrit Auto (Bld) [Volum e fraction]Ordered By: Rufina Rubio on 07-20-2022 Hematocrit (Bld) [Volume fraction] 40.8 % 34.0-46.4 [facility] Hemoglobin [Mass/volume] in BloodOrdered By: Rufina Rubio on 07-20-2022 Hemoglobin (Bld) [Mass/Vol] 13.4 g/dL 11.8-15.4 [facility] Laboratory - Chemistry and C hemistry - challengeOrdered By: Rufina Rubio on 07-20-2022 Cobalamin (Vitamin B12) [Mass/Vol] 137 pg/mL 180-914 [facility] Lipase [Catalytic activity/Vol] 53.0 U/L 22-51 [facility] Leukocytes [#/volume] correc zakia for nucleated erythrocytes in Blood by Automated counOrdered By: Rufina Rubio on 07-20-2022 WBC corrected for nucl RBC Auto (Bld) [#/Vol] 8.5 10*3/uL 3.8-11.6 [facility] Lymphocytes Auto (Bld) [#/Vo l]Ordered By: Rufina Rubio on 07-20-2022 Lymphocytes (Bld) [#/Vol] 3.1 10*3/uL 1.00-4.8 [facility] Lymphocytes/100 WBC Auto (Bl d)Ordered By: Rufina Rubio on 07-20-2022 Lymphocytes/100 WBC (Bld) 36.6 % . [facility] MCH Auto (RBC) [Entitic mass ]Ordered By: Rufina Rubio on 07-20-2022 MCH (RBC) [Entitic mass] 30.4 pg 24.7-34.3 [facility] MCHC Auto (RBC) [Mass/Vol]Or dered By: Rufina Rubio on 07-20-2022 MCHC (RBC) [Mass/Vol] 32.8 g/dL 32.0-35.0 [facility] MCV Auto (RBC) [Entitic vol] Ordered By: Rufina Rubio on 07-20-2022 MCV (RBC) [Entitic vol] 92.7 fL 80-100 [facility] Monocytes Auto (Bld) [#/Vol] Ordered By: Rufina Rubio on 07-20-2022 Monocytes (Bld) [#/Vol] 0.6 10*3/uL 0.0-0.8 [facility] Monocytes/100 WBC Auto (Bld) Ordered By: Rufina Rubio on 07-20-2022 Monocytes/100 WBC (Bld) 7.0 % . [facility] Neutrophils Auto (Bld) [#/Vo l]Ordered By: Rufina Rubio on 07-20-2022 Neutrophils (Bld) [#/Vol] 4.4 10*3/uL 1.8-7.7 [facility] Neutrophils/100 WBC Auto (Bl d)Ordered By: Rufina Rubio on 07-20-2022 Neutrophils/100 WBC (Bld) 52.2 % . [facility] No Panel InformationOrdered By: Rufina Rubio on 07-20-2022 Estimated GFR () > 60 mL/Min [facility] Comment on above: GFR estimated refere nce range: According to KDOQI guidelines, <60 ml/min/1.73m2 is sufficient to diagnose a patient with chronic kidney disease. Pharmacy Creatinine Clearance (Chem N/A [facility] Nucleated erythrocytes [Pres ence] in Blood by Automated countOrdered By: Rufina Rubio on 07-20-2022 Nucleated RBC Auto Ql (Bld) 0.2 /100{WBC} 0-0.5 [facility] Platelet mean volume Auto (B ld) [Entitic vol]Ordered By: Rufina Rubio on 07-20-2022 Platelet mean volume (Bld) [Entitic vol] 10.2 fL 6.3-10.7 [facility] Platelets Auto (Bld) [#/Vol] Ordered By: Rufina Rubio on 07-20-2022 Platelets (Bld) [#/Vol] 183 10*3/uL 150-450 [facility] Protein [Mass/volume] in Ser um or PlasmaOrdered By: Rufina Rubio on 07-20-2022 Protein [Mass/Vol] 6.2 g/dL 6.1-7.9 [facility] RBC Auto (Bld) [#/Vol]Ordere d By: Rufina Rubio on 07-20-2022 RBC (Bld) [#/Vol] 4.40 10*6/uL 3.60-5.00 [facility] Serum or plasma alanine mckeon otransferase measurement without P-5'-P (enzymatic activiOrdered By: Rufina Rubio on 07-20-2022 ALT No additional P-5'-P [Catalytic activity/Vol] 10 U/L 10-60 [facility] Serum or plasma albumin/glob ulin mass ratioOrdered By: Rufina Rubio on 07-20-2022 Albumin/Globulin [Mass ratio] 1.6 {ratio} [facility] Serum or plasma alkaline kamron sphatase measurement (enzymatic activity/volume)Ordered By: Rufina Rubio on 07-20-2022 ALP [Catalytic activity/Vol] 107 U/L 32-92 [facility] Serum or plasma amylase kunal urement (enzymatic activity/volume)Ordered By: Rufina Rubio on 07-20-2022 Amylase [Catalytic activity/Vol] 129 U/L 28-100 [facility] Serum or plasma anion gap de terminationOrdered By: Rufina Rubio on 07-20-2022 Anion gap [Moles/Vol] 9.5 mmol/L 6.0-15.0 [facility] Serum or plasma aspartate am inotransferase measurement (enzymatic activity/volume)Ordered By: Rufina Rubio on 07-20-2022 AST [Catalytic activity/Vol] 13 U/L 10-42 [facility] Serum or plasma calcium kunal urement (mass/volume)Ordered By: Rufina Rubio on 07-20-2022 Calcium [Mass/Vol] 8.7 mg/dL 8.2-10.2 [facility] Serum or plasma chloride chacorta surement (moles/volume)Ordered By: Rufina Rubio on 07-20-2022 Chloride [Moles/Vol] 107 mmol/L 95-114 [facility] Serum or plasma glucose kunal urement (mass/volume)Ordered By: Rufina Rubio on 07-20-2022 Glucose [Mass/Vol] 82 mg/dL 70-100 [facility] Comment on above: ADA recommended refe rence rangeRandom Glucose Reference Range is dependent on time and content of last meal. Glucose of more than 200 mg/dL in a nonstressed, ambulatory subject supports the diagnosis of Diabetes Mellitus. Serum or plasma high density lipoprotein (HDL) cholesterol measurementOrdered By: Rufina Rubio on 07-20-2022 Cholesterol in HDL [Mass/Vol] 53 mg/dL 35-85 [facility] Comment on above: HDL CHOL ATP-III CLA SSIFICATION Cardiovascular RiskHDL > or equal to 60 mg/dL LOWHDL < 40 mg/dL HIGH Serum or plasma potassium me asurement (moles/volume)Ordered By: Rufina Rubio on 07-20-2022 Potassium [Moles/Vol] 3.9 mmol/L 3.5-5.1 [facility] Serum or plasma sodium measu rement (moles/volume)Ordered By: Rufina Rubio on 07-20-2022 Sodium [Moles/Vol] 138 mmol/L 136-146 [facility] Serum or plasma total biliru bin measurement (mass/volume)Ordered By: Rufina Rubio on 07-20-2022 Bilirubin [Mass/Vol] 0.3 mg/dL 0.3-1.2 [facility] Serum or plasma total carbon dioxide measurement (moles/volume)Ordered By: Rufina Rubio on 07-20-2022 CO2 [Moles/Vol] 25.4 mmol/L 22.0-30.0 [facility] Serum or plasma total choles terol/high density lipoprotein (HDL) cholesterol mass ratOrdered By: Rufina Rubio on 07-20-2022 Cholesterol.total/Katie sterol in HDL [Mass ratio] 3.5 {ratio} <5.0 [facility] Serum or plasma urea nitroge n measurement (mass/volume)Ordered By: Rufina Rubio on 07-20-2022 Urea nitrogen [Mass/Vol] 5 mg/dL 9-23 [facility] TSH DL <= 0.005 mIU/L QnOrde red By: Rufina Rubio on 07-20-2022 TSH Qn 4.78 m[IU]/L 0.45-5.33 [facility] Thyroxine (T4) free [Mass/vo lume] in Serum or PlasmaOrdered By: Rufina Rubio on 07-20-2022 Free T4 [Mass/Vol] 0.80 ng/dL 0.61-1.12 [facility] Triglyceride [Mass/volume] i n Serum or PlasmaOrdered By: Rufina Rubio on 07-20-2022 Triglyceride [Mass/Vol] 132 mg/dL 35-149 [facility] Comment on above: TRIG ATP III CLASSIF ICATIONTRIG less than 150 mg/dL NormalTRIG 150-199 mg/dL Borderline highTRIG 200-500 mg/dL High TRIG greater than 500 mg/dL Very highStandard traceable to the Center for Disease Conrtrol and Prevention (CDC) test method. Urine culture routineOrdered By: Rufina Rubio on 07-20-2022 Bacteria identified Cx Nom (U) Escherichia coli [facility] Bacteria identified Cx Nom (U) Escherichia coli [facility] WBC Auto (Bld) [#/Vol]Ordere d By: Rufina Rubio on 07-20-2022 WBC (Bld) [#/Vol] 8.5 10*3/uL 3.8-11.6 [facility] CBC AUTO DIFFon 06-24-2022 BASO # 0.0 103/ul Normal 0.0-0.1 [facility] Comment on above: Performed By: #### C BC #### [facility] [address] [place], [place] [address] Dr. Ruthie Pan Basophils/100 WBC (Bld) 0.5 % Normal 0.2-2.0 [facility] Comment on above: Performed By: #### C BC #### [facility] [address] [place] [address] Dr. Ruthie Pan EO # 0.1 103/ul Normal 0.0-0.7 [facility] Comment on above: Performed By: #### C BC #### [facility] [address] [place] [address] Dr. Ruthie Pan Eosinophils/100 WBC (Bld) 1.6 % Normal 0.9-7.0 [facility] Comment on above: Performed By: #### C BC #### [facility] [address] [place] [address] Dr. Ruthie Pan Erythrocyte distribution width (RBC) [Ratio] 13.2 % Normal 11.0-15.0 [facility] Comment on above: Performed By: #### C BC #### [facility] [address] [place] [address] Dr. Ruhtie Pan Hematocrit (Bld) [Volume fraction] 41.5 % Normal 36.0-48.0 [facility] Comment on above: Performed By: #### C BC #### [facility] [address] [place] [address] Dr. Ruthie Pan Hemoglobin (Bld) [Mass/Vol] 13.9 g/dL Normal 12.0-16.0 [facility] Comment on above: Performed By: #### C BC #### [facility] [address] [place] [address] Dr. Ruthie Pan IG # 0.02 10e3/ul Normal 0.00-0.03 [facility] Comment on above: Performed By: #### C BC #### [facility] [address] [place] [address] Dr. Ruthie Pan IG % 0.2 % Normal 0.0-0.5 [facility] Comment on above: Performed By: #### C BC #### [facility] [address] [place] [address] Dr. Ruthie Pan LYMPH # 2.5 103/ul Normal 1.2-3.8 [facility] Comment on above: Performed By: #### C BC #### [facility] [address] [place] [address] Dr. Ruthie Pan Lymphocytes/100 WBC (Bld) 28.8 % Normal 20.5-60.0 [facility] Comment on above: Performed By: #### C BC #### [facility] [address] [place] [address] Dr. Ruthie Pan MANUAL DIFF REQ NO Normal [facility] Comment on above: Performed By: #### C BC #### [facility] [address] [place] [address] Dr. Ruthie Pan MCH (RBC) [Entitic mass] 30.3 pg Normal 26.7-34.0 [facility] Comment on above: Performed By: #### C BC #### [facility] [address] [place] [address] Dr. Ruthie Pan MCHC (RBC) [Mass/Vol] 33.5 g/dL Normal 29.9-35.2 [facility] Comment on above: Performed By: #### C BC #### [facility] [address] [place] [address] Dr. Ruthie Pan MCV (RBC) [Entitic vol] 90.6 fL Normal 81.0-99.0 [facility] Comment on above: Performed By: #### C BC #### [facility] [address] [place] [address] Dr. Ruthie Pan MONO # 0.6 103/ul Normal 0.3-0.8 [facility] Comment on above: Performed By: #### C BC #### [facility] [address] [place] [address] Dr. Ruthie Pan Monocytes/100 WBC (Bld) 6.4 % Normal 1.7-12.0 [facility] Comment on above: Performed By: #### C BC #### [facility] [address] [place] [address] Dr. Ruthie Pan NEUT # 5.5 103/ul Normal 1.4-6.5 [facility] Comment on above: Performed By: #### C BC #### [facility] [address] [place] [address] Dr. Ruthie Pan Neutrophils/100 WBC (Bld) 62.5 % Normal 43.0-75.0 [facility] Comment on above: Performed By: #### C BC #### [facility] [address] [place] [address] Dr. Ruthie Pan Platelet mean volume (Bld) [Entitic vol] 11.1 fL Normal 9.5-13.5 [facility] Comment on above: Performed By: #### C BC #### [facility] [address] [place] [address] Dr. Ruthie Pan PLT 150 103/ul Normal 150-450 [facility] Comment on above: Performed By: #### C BC #### [facility] [address] [place] [address] Dr. Ruthie Pna RBC 4.58 106/ul Normal 4.20-5.40 [facility] Comment on above: Performed By: #### C BC #### [facility] [address] [place] [address] Dr. Ruthie Pan WBC 8.8 103/ul Normal 4.0-11.0 [facility] Comment on above: Performed By: #### C BC #### [facility] [address] [place] [address] Dr. Ruthie Pan [facility]on [facility]11 SARS-CoV-2 (COVID-19) RNA MICHAEL+probe Ql (Unsp spec) Not detected Normal NOT DETECTED [facility] Comment on above: Result Comment: This test is not yet approved or cleared by the [place] FDA. When there are no FDA-approved or cleared tests available, and other criteria are met, FDA can make tests available under an emergency access mechanism called an Emergency Use Authorization (EUA). The EUA for this test is supported by the Medication Care Manager of Health and Human Service's (HHS's) declaration [...] with SARS-CoV-2. Performed By: #### C VDTB ####[facility] [address] [place], [place] [address]Dr. Ruthie Pan INFLUENZA A AND B AGon 06-24 [facility] BEL[facility] Normal [facility] Comment on above: Result Comment: Nega tive for Flu A protein angiten. Infection due to Flu A cannot be ruled out. Flu A angiten in the sample may be below the detection limit of the test. Performed By: #### I NFLUAB ####[facility] [address] [place], [place] [address]Dr. Ruthie Pan INFLUBNEG SEE BELOW Normal [facility] Comment on above: Result Comment: Nega tive for Flu B protein antigen. Infection due to Flu B cannot be ruled out. Flu B antigen in the sample may be below the detection limit of the test. Performed By: #### I NFLUAB ####[facility] [address] [place], [place] [address]Dr. Ruthie Pan INFLUENZA A AG Negative Normal NEGATIVE SEE COMMENT [facility] Comment on above: Performed By: #### I NFLUAB ####[facility] [address] [place], [place] [address]Dr. Ruthie [facility] INFLUENZA B AG Negative Normal NEGATIVE SEE COMMENT [facility] Comment on above: Performed By: #### I NFLUAB ####[facility] [address] [place], [place] [address]Dr. Ruthie Pan INTERNAL CONTROLS Within Normal Limits Normal Wi thin Normal Limits [facility] Comment on above: Performed By: #### I NFLUAB ####[facility] [address] [place], [place] [address]Dr. Ruthie Pan PROF 14(COMP METB)on 022 Albumin [Mass/Vol] 3.7 g/dL Normal 3.4-5.[address] [facility] Comment on above: Performed By: #### C MP ####[facility] [address] [place] [id number]. Ruthie Pan Albumin/Globulin [Mass ratio] 1.1 {ratio} Normal [facility] Comment on above: Performed By: #### C MP ####[facility] [address] [place] [address]Dr. Ruthie Pan ALP [Catalytic activity/Vol] 125 U/L Critically high 46-116 [facility] Comment on above: Performed By: #### C MP ####[facility] [address] [place] [address]Dr. Ruthie Pan ALT [Catalytic activity/Vol] 17 U/L Normal 14-59 [facility] Comment on above: Performed By: #### C MP ####[facility] [address] [place], [place] [address]Dr. Ruthie Pan Anion gap [Moles/Vol] 9.8 mmol/L Normal [facility] Comment on above: Performed By: #### C MP ####[facility] [address] [place], [place] [address]Dr. Ruthie Maxim AST [Catalytic activity/Vol] 16 U/L Normal 15-37 [facility] Comment on above: Performed By: #### C MP ####[facility] [address] [place], [place] [address]Dr. Ruthie Maxim Bilirubin [Mass/Vol] 0.3 mg/dL Normal 0.2-1.0 [facility] Comment on above: Performed By: #### C MP ####[facility] [address] [place], [place] [address]Dr. Ruthie Maxim Calcium [Mass/Vol] 8.7 mg/dL Normal 8.5-10.[address] [facility] Comment on above: Performed By: #### C MP ####[facility] [address] [place], [place] [address]Dr. Ruthie Maxim Chloride [Moles/Vol] 103 mmol/L Normal 98-107 [facility] Comment on above: Performed By: #### C MP ####[facility] [address] [place], [place] [address]Dr. Ruthie Pan CO2 [Moles/Vol] 28.3 mmol/L Normal 21.0-32.0 [facility] Comment on above: Performed By: #### C MP ####[facility] [address] [place], [place] [address]Dr. Ruthie Pan Creatinine [Mass/Vol] 0.62 mg/dL Normal 0.55-1.02 [facility] Comment on above: Performed By: #### C MP ####[facility] [address] [place], [place] [address]Dr. Michaelajean-claude Pan EGFR-AF MONGOLIAN >60 Normal >=60 [facility] Comment on above: Performed By: #### C MP ####[facility] [address] [place], [place] [address]Dr. Ruthie Pan EGFR-NON AF MONGOLIAN >60 Normal >=60 [facility] Comment on above: Performed By: #### C MP ####[facility] [address] [place], [place] [address]Dr. Ruthie Pan Globulin (S) [Mass/Vol] 3.4 g/dL Normal [facility] Comment on above: Performed By: #### C MP ####[facility] [address] [place], [place] [address]Dr. Ruthie Pan Glucose [Mass/Vol] 103 mg/dL Normal 74-[address] [facility] Comment on above: Performed By: #### C MP ####[facility] [address] [place], [place] [address]Dr. Ruthie Pan Potassium [Moles/Vol] 3.1 mmol/L Critically low 3.5-5.1 [facility] Comment on above: Performed By: #### C MP ####[facility] [address] [place], [place] [address]Dr. Ruthie Pan Protein [Mass/Vol] 7.1 g/dL Normal 6.4-8.[address] [facility] Comment on above: Performed By: #### C MP ####[facility] [address] [place], [place] [address]Dr. Ruthie Pan Sodium [Moles/Vol] 140 mmol/L Normal 136-145 [facility] Comment on above: Performed By: #### C MP ####[facility] [address] [place] [address]Dr. Ruthie Pan Urea nitrogen [Mass/Vol] 6.0 mg/dL Critically low 7.0-18.0 [facility] Comment on above: Performed By: #### C MP ####[facility] [address] [place] [address]Dr. Ruthie Pan Urea nitrogen/Creatinine [Mass ratio] 9.7 mg/mg Normal [facility] Comment on above: Performed By: #### C MP ####[facility] [address] [place] [address]Dr. Ruthie Pan Urine culture routineOrdered By: Rufina Rubio on 06-09-2022 Bacteria identified Cx Nom (U) Escherichia coli [facility] Urine culture routineOrdered By: Rufina Rubio on 04-16-2022 Bacteria identified Cx Nom (U) Escherichia coli [facility] AMYLASEon 11-24-2021 Amylase [Catalytic activity/Vol] 85 U/L Normal 25-115 [facility] Comment on above: Performed By: #### C MPROSALIA LIPA #### [facility] [address] [place] [address] [address] Ruthie Pan CBC AUTO DIFFon 11-24-2021 BASO # 0.0 103/ul Normal 0.0-0.1 [facility] Comment on above: Performed By: #### C BC ####[facility] [address] [place] [address]Dr. Ruthie Pan Basophils/100 WBC (Bld) 0.4 % Normal 0.2-2.0 [facility] Comment on above: Performed By: #### C BC ####[facility] [address] [place] [address]DrGideon Pan EO # 0.2 103/ul Normal 0.0-0.7 [facility] Comment on above: Performed By: #### C BC ####[facility] [address] [place] [address]Dr. Ruthie Pan Eosinophils/100 WBC (Bld) 1.6 % Normal 0.9-7.0 [facility] Comment on above: Performed By: #### C BC ####[facility] [address] [place], [place] [address]Dr. Ruthie Pan Erythrocyte distribution width (RBC) [Ratio] 13.8 % Normal 11.0-15.0 [facility] Comment on above: Performed By: #### C BC ####[facility] [address] [place], [place] [address]Dr. Ruthie Pan Hematocrit (Bld) [Volume fraction] 38.5 % Normal 36.0-48.0 [facility] Comment on above: Performed By: #### C BC ####[facility] [address] [place], [place] [address]Dr. Ruthie Pan Hemoglobin (Bld) [Mass/Vol] 12.3 g/dL Normal 12.0-16.0 [facility] Comment on above: Performed By: #### C BC ####[facility] [address] [place] [address]Dr. Ruthie Pan IG # 0.04 10e3/ul Critically high 0.00-0.03 [facility] Comment on above: Performed By: #### C BC ####[facility] [address] [place] [address]Dr. Ruthie Pan IG % 0.4 % Normal 0.0-0.5 [facility] Comment on above: Performed By: #### C BC ####[facility] [address] [place], [place] [address]Dr. Ruthie Pan LYMPH # 3.4 103/ul Normal 1.2-3.8 [facility] Comment on above: Performed By: #### C BC ####[facility] [address] [place], [place] [address]Dr. Ruthie Pan Lymphocytes/100 WBC (Bld) 31.2 % Normal 20.5-60.0 [facility] Comment on above: Performed By: #### C BC ####[facility] [address] [place] [address]Dr. Ruthie Pan MANUAL DIFF REQ NO Normal [facility] Comment on above: Performed By: #### C BC ####[facility] [address] [place] [address]Dr. Ruthie Pan MCH (RBC) [Entitic mass] 31.1 pg Normal 26.7-34.0 [facility] Comment on above: Performed By: #### C BC ####[facility] [address] [place] [address]Dr. Ruthie Pan MCHC (RBC) [Mass/Vol] 31.9 g/dL Normal 29.9-35.2 [facility] Comment on above: Performed By: #### C BC ####[facility] [address] [place] [address]Dr. Ruthie Maxim MCV (RBC) [Entitic vol] 97.5 fL Normal 81.0-99.0 [facility] Comment on above: Performed By: #### C BC ####[facility] [facility] [id number] [address]Dr. Ruthie Maxim MONO # 0.9 103/ul Critically high 0.3-0.8 [facility] Comment on above: Performed By: #### C BC ####[facility] [id number] [place], [place] [address]Dr. Ruthie Pan Monocytes/100 WBC (Bld) 8.0 % Normal 1.7-12.0 [facility] Comment on above: Performed By: #### C BC ####[facility] [id number] [address]Dr. Ruthie Pan NEUT # 6.4 103/ul Normal 1.4-6.5 [facility] Comment on above: Performed By: #### C BC ####[facility] [id number] [place], [place] [address]Dr. Ruthie Pan Neutrophils/100 WBC (Bld) 58.4 % Normal 43.0-75.0 [facility] Comment on above: Performed By: #### C BC ####[facility] [address] [place], [place] [address]Ch. Ruthie Pan Platelet mean volume (Bld) [Entitic vol] 10.7 fL Normal 9.5-13.5 [facility] Comment on above: Performed By: #### C BC ####[facility] [address] [place], [place] [address]Qp. Ruthie Pan PLT 207 103/ul Normal 150-450 [facility] Comment on above: Performed By: #### C BC ####[facility] [address] [place], [place] [address]Ke. Ruthie Pan RBC 3.95 106/ul Critically low 4.20-5.40 [facility] Comment on above: Performed By: #### C BC ####[facility] [address] [place], [place] [address]Eb. Ruthie Pan WBC 11.0 103/ul Normal 4.0-11.0 [facility] Comment on above: Performed By: #### C BC ####[facility] [address] [place], [place] [address]Kd. Ruthie Pan CT ABD/PELV W CONon 11-25-19 [...] LUDIN ANGELES Date: 2021-11-24 03:59 Normal [facility] LACTATE/LACTIC ACIDon 2021 Lactate [Moles/Vol] 1.0 mmol/L Normal 0.4-1.9 [facility] Comment on above: Performed By: #### L ACT #### [facility] [address] [place] [address] Dr. Ruthie Pan LIPASEon 11-24-2021 Lipase [Catalytic activity/Vol] 123.0 U/L Normal 73.0-393.0 [facility] Comment on above: Performed By: #### C MP, ROSALIA, LIPA #### [facility] [address] [place] [address] Dr. Ruthie Pan PROF 14(COMP METB)on 022 Albumin [Mass/Vol] 3.3 g/dL Critically low 3.4-5.0 [facility] Comment on above: Performed By: #### C MP, ROSALIA, LIPA #### [facility] [address] [place] [address] Dr. Ruthie Pan Albumin/Globulin [Mass ratio] 1.1 {ratio} Normal [facility] Comment on above: Performed By: #### C MP, ROSALIA, LIPA #### [facility] [address] [place] [address] Dr. Ruthie Pan ALP [Catalytic activity/Vol] 139 U/L Critically high 46-116 [facility] Comment on above: Performed By: #### C MP, ROSALIA, LIPA #### [facility] [address] [place] [address] Dr. Ruthie Pan ALT [Catalytic activity/Vol] 17 U/L Normal 14-59 [facility] Comment on above: Performed By: #### C MP, ROSALIA, LIPA #### [facility] [address] [place] [address] Dr. Ruthie Pan Anion gap [Moles/Vol] 10.5 mmol/L Normal [facility] Comment on above: Performed By: #### C MP, ROSALIA, LIPA #### [facility] [address] [place] [address] Dr. Ruthie Pan AST [Catalytic activity/Vol] 14 U/L Critically low 15-37 [facility] Comment on above: Performed By: #### C NARESH ROSALIA, LIPA #### [facility] [address] [place] [address] Dr. Ruthie Pan Bilirubin [Mass/Vol] 0.2 mg/dL Normal 0.2-1.0 [facility] Comment on above: Performed By: #### C MP ROSALIA, LIPA #### [facility] [address] [place] [address] Dr. Ruthie Pan Calcium [Mass/Vol] 8.3 mg/dL Critically low 8.5-10.1 [facility] e [facility] Comment on above: Performed By: #### C NARESH ROSALIA, LIPA #### [facility] [address] [place] [address] Dr. Ruthie Pan Chloride [Moles/Vol] 103 mmol/L Normal 98-107 [facility] Comment on above: Performed By: #### C NARESH ROSALIA, LIPA #### [facility] [address] [place] [address] Dr. Ruthie Pan CO2 [Moles/Vol] 27.9 mmol/L Normal 21.0-32.0 [facility] Comment on above: Performed By: #### C NARESH ROSALIA, LIPA #### [facility] [address] [place] [address] Dr. Ruthie Pan Creatinine [Mass/Vol] 0.71 mg/dL Normal 0.55-1.02 [facility] Comment on above: Performed By: #### C NARESH ROSALIA, LIPA #### [facility] [address] [place] [address] Dr. Ruthie Pan EGFR-AF MONGOLIAN >60 Normal >=60 [facility] Comment on above: Performed By: #### C NARESH ROSALIA, LIPA #### [facility] [address] [place] [address] Dr. Ruthie Pan EGFR-NON AF MONGOLIAN >60 Normal >=60 [facility] Comment on above: Performed By: #### C MP, ROSALIA, LIPA #### [facility] [address] [place] [address] Dr. Ruthie Pan Globulin (S) [Mass/Vol] 3.1 g/dL Normal [facility] Comment on above: Performed By: #### C ROSALIA INFANTE LIPA #### [facility] [address] [address] [address] Ruthie Pan Glucose [Mass/Vol] 113 mg/dL Critically high 74-106 [facility] Comment on above: Performed By: #### C ROSALIA INFANTE LIPA #### [facility] [address] [address] [address] Ruthie Pan Potassium [Moles/Vol] 3.4 mmol/L Critically low 3.5-5.1 [facility] Comment on above: Performed By: #### C ROSALIA INFANTE LIPA #### [facility] [address] [place] [address] Dr. Ruthie Pan Protein [Mass/Vol] 6.4 g/dL Normal 6.4-8.2 [facility] Comment on above: Performed By: #### C ROSALIA INFANTE LIPA #### [facility] [address] [place] [address] Dr. Ruthie Pan Sodium [Moles/Vol] 138 mmol/L Normal 136-145 [facility] Comment on above: Performed By: #### C ROSALIA INFANTE, LIPA #### [facility] [address] [place] [address] Dr. Ruthie Pan Urea nitrogen [Mass/Vol] 10.0 mg/dL Normal 7.0-18.0 [facility] Comment on above: Performed By: #### C ROSALIA INFANTE LIPA #### [facility] [address] [place] [address] Dr. Ruthie Pan Urea nitrogen/Creatinine [Mass ratio] 14.1 mg/mg Normal [facility] Comment on above: Performed By: #### C ROSALIA INFANTE LIPA #### [facility] [address] [place] [address] Dr. Ruthie Pan US SINGLE QUAD RT [...] by: MILE BENITEZ Date: 2021-11-24 07:56 Normal [facility] XR SHOULDER RT 2V or >on [...] by: Austin VENTURA Date: 2021-11-21 02:37 Normal [facility] Vital Signs Date Time Vital Sign Value Performing Clinician Facility 09-29-2024 11:00-0400 Body temperature 98.5 [degF] Rufina DEGROOT Work Phone: [facility] 09-29-2024 11:00-0400 Diastolic blood pressure 68 mm[Hg] Rufina DEGROOT Work Phone: [facility] 09-29-2024 11:00-0400 Heart rate 72 /min Rufina DEGROOT Work Phone: [facility] 09-29-2024 11:00-0400 Respiratory rate 18 /min Rufina Rubio NITROCELLULOSE OPERATOR-C Work Phone: [facility] 09-29-2024 11:00-0400 SaO2% (BldA) [Mass fraction] 99 % Rufina Rubio NITROCELLULOSE OPERATOR-C Work Phone: [facility] 09-29-2024 11:00-0400 Systolic blood pressure 136 mm[Hg] Rufina Rubio NITROCELLULOSE OPERATOR-C Work Phone: [facility] 08-14-2024 10:48-0500 Body height 157.5 cm Michael Brown DO Work Phone: [facility] 08-14-2024 10:48-0500 Body mass index (BMI) [Ratio] 22.68 kg/m2 Michael Brown DO Work Phone: [facility] 08-14-2024 10:48-0500 Body weight 56.25 kg Michael Brown DO Work Phone: [facility] 06-27-2024 15:17-0500 Body height 157.5 cm Michael Brown DO Work Phone: [facility] 06-27-2024 15:17-0500 Body mass index (BMI) [Ratio] 22.68 kg/m2 Michael Brown DO Work Phone: [facility] 06-27-2024 15:17-0500 Body weight 56.25 kg Michael Brown DO Work Phone: [facility] 05-30-2024 15:15-0500 Body height 157.5 cm Michael Brown DO Work Phone: [facility] 05-30-2024 15:15-0500 Body mass index (BMI) [Ratio] 22.68 kg/m2 Michael Brown DO Work Phone: [facility] 05-30-2024 15:15-0500 Body weight 56.25 kg Michael Brown DO Work Phone: [facility] 05-19-2024 12:20-0500 Body temperature 98.06 [degF] Michael Henderson [facility] 05-19-2024 12:20-0500 Diastolic blood pressure 71 mm[Hg] Michael Henderson [facility] 05-19-2024 12:20-0500 Heart rate 65 /min Michael Henderson [facility] 05-19-2024 12:20-0500 Mean blood pressure 86 mm[Hg] Michael Henderson [facility] 05-19-2024 12:20-0500 Respiratory rate 16 /min Michael Henderson [facility] 05-19-2024 12:20-0500 SaO2% (BldA) [Mass fraction] 100 % Michael Hendreson [facility] 05-19-2024 12:20-0500 Systolic blood pressure 117 mm[Hg] Michael Henderson [facility] 05-19-2024 11:34-0500 Heart rate 77 /min Michael Henderson [facility] 05-19-2024 11:34-0500 SaO2% (BldA) [Mass fraction] 99 % Michale Henderson [facility] 05-19-2024 11:34-0500 Diastolic blood pressure 62 mm[Hg] Michael Henderson [facility] 05-19-2024 11:34-0500 Mean blood pressure 85 mm[Hg] Michael Henderson [facility] 05-19-2024 11:34-0500 Systolic blood pressure 131 mm[Hg] Michael Henderson [facility] 05-19-2024 11:25-0500 Blood Pressure Location Michael Henderson [facility] 05-19-2024 11:25-0500 Body temperature 97.88 [degF] Michael Henderson [facility] 05-19-2024 11:25-0500 Diastolic blood pressure 84 mm[Hg] Michael Henderson [facility] 05-19-2024 11:25-0500 Heart rate 61 /min Michael Henderson [facility] 05-19-2024 11:25-0500 Mean blood pressure 105 mm[Hg] Michael Henderson [facility] 05-19-2024 11:25-0500 Respiratory rate 17 /min Michael Henderson [facility] 05-19-2024 11:25-0500 SaO2% (BldA) [Mass fraction] 100 % Michael Henderson [facility] 05-19-2024 11:25-0500 Systolic blood pressure 148 mm[Hg] Michael Henderson [facility] 05-19-2024 11:15-0500 Blood Pressure Location Michael Henderson [facility] 05-19-2024 11:15-0500 Mean blood pressure 91 mm[Hg] Michael Henderson [facility] 05-19-2024 11:15-0500 Respiratory rate 20 /min Michael Henderson [facility] 05-19-2024 10:42-0500 Body temperature 97.16 [degF] Michael Henderson [facility] 05-19-2024 10:40-0500 Respiratory rate 3 /min Michael Henderson [facility] 05-19-2024 10:35-0500 Respiratory rate 21 /min Michael Henderson [facility] 05-19-2024 06:41-0500 Mean blood pressure 89 mm[Hg] Michael Brown [facility] 05-19-2024 06:40-0500 Body temperature 97.7 [degF] Michael Henderson [facility] 05-19-2024 06:40-0500 Mean blood pressure 90 mm[Hg] Michael Brown [facility] 05-04-2024 14:14-0400 Diastolic blood pressure 78 mm[Hg] Michael Brown [facility] 05-04-2024 14:14-0400 Heart rate 66 /min Michael Brown [facility] 05-04-2024 14:14-0400 Mean blood pressure 91 mm[Hg] Michael Brown [facility] 05-04-2024 14:14-0400 Systolic blood pressure 118 mm[Hg] Michael Brown [facility] 05-04-2024 14:14-0400 Respiratory rate 18 /min Michael Brown [facility] 05-04-2024 14:14-0400 Heart rate 70 /min Michael Brown [facility] 05-04-2024 14:14-0400 SaO2% (BldA) [Mass fraction] 100 % Michael Henderson [facility] 05-04-2024 14:14-0400 Diastolic blood pressure 62 mm[Hg] Michael Brown [facility] 05-04-2024 14:14-0400 Mean blood pressure 77 mm[Hg] Michael Brown [facility] 05-04-2024 14:14-0400 Systolic blood pressure 108 mm[Hg] Michael Brown [facility] 05-04-2024 13:28-0400 Body height 157.5 cm Michael Brown DO Work Phone: [facility] 05-04-2024 13:28-0400 Body mass index (BMI) [Ratio] 22.68 kg/m2 Michael Brown DO Work Phone: [facility] 05-04-2024 13:28-0400 Body temperature 97.39 [degF] Michael Brown DO Work Phone: [facility] 05-04-2024 13:28-0400 Body weight 56.25 kg Michael Brown DO Work Phone: [facility] 04-06-2024 15:04-0400 Body height 157.5 cm Michael Brown DO Work Phone: [facility] 04-06-2024 15:04-0400 Body mass index (BMI) [Ratio] 22.68 kg/m2 Michael Brown DO Work Phone: [facility] 04-06-2024 15:04-0400 Body weight 56.25 kg Michael Brown DO Work Phone: [facility] 03-07-2024 11:08-0400 Body height 157.5 cm Michael Brown DO Work Phone: [facility] 03-07-2024 11:08-0400 Body mass index (BMI) [Ratio] 22.68 kg/m2 Michael Brown DO Work Phone: [facility] 03-07-2024 11:08-0400 Body weight 56.25 kg Michael Brown DO Work Phone: [facility] 07-23-2022 00:20-0500 Diastolic blood pressure 65 mm[Hg] [facility] Work Phone: [facility] 07-23-2022 00:20-0500 Heart rate 89 /min Services [employer] [facility] Work Phone: [facility] 07-23-2022 00:20-0500 Respiratory rate 18 /min Services [facility] Work Phone: [facility] 07-23-2022 00:20-0500 SaO2% (BldA) [Mass fraction] 99 % [facility] Work Phone: [facility] 07-23-2022 00:20-0500 Systolic blood pressure 103 mm[Hg] [facility] Work Phone: [facility] 07-22-2022 19:43-0500 Body height 154.94 cm Services [employer] Work Phone: [facility] 07-22-2022 19:43-0500 Body temperature 98.4 [degF] Services [facility] Work Phone: [facility] 07-22-2022 19:43-0500 Body weight 64 kg Services [employer] Work Phone: [facility] 11-23-2021 23:23-0400 Body temperature 98.06 [degF] Venancio Ernesto [facility] 11-23-2021 23:23-0400 Diastolic blood pressure 63 mm[Hg] Venancio Ernesto [facility] 11-23-2021 23:23-0400 Heart rate 81 /min Venancio Ernesto [facility] 11-23-2021 23:23-0400 Respiratory rate 16 /min Venancio Ernesto [facility] 11-23-2021 23:23-0400 SaO2% (BldA) [Mass fraction] 97 % Venancio Ernesto [facility] 11-23-2021 23:23-0400 Systolic blood pressure 102 mm[Hg] Venancio Ernesto [facility] Encounters Encounter Date Encounter Type Care Provider Facility Start: 11-14-2024 End: 11-14-2024 ambulatory Akbar Philippe Facility:[facility] Start: 11-14-2024 End: 11-14-2024 Patient encounter procedure Akbar Philippe [facility] Start: 09-29-2024 End: 09-29-2024 Patient encounter procedure Rufina Ramiro NITROCELLULOSE OPERATOR-C Work Phone: [facility] Start: 09-29-2024 End: 09-29-2024 ambulatory Rufina Maria Guadalupe Rubio NITROCELLULOSE OPERATOR-C Work Phone: [facility] Work Phone: Start: 09-22-2024 End: 09-22-2024 Patient encounter procedure Rufina Ramiro NITROCELLULOSE OPERATOR-C Work Phone: [facility] Work Phone: Start: 09-22-2024 End: 09-22-2024 ambulatory Rufina Maria Guadalupe Rubio NITROCELLULOSE OPERATOR-C Work Phone: [facility] Work Phone: Start: 09-20-2024 End: 09-20-2024 Patient encounter procedure Rufina Ramiro NITROCELLULOSE OPERATOR-C Work Phone: [facility] [place] Work Phone: Start: 09-20-2024 End: 09-20-2024 ambulatory Rufina Maria Guadalupe Rubio NITROCELLULOSE OPERATOR-C Work Phone: [facility] Work Phone: Start: 08-22-2024 End: 08-30-2024 [...] Dx) Start: 08-14-2024 End: 08-14-2024 ambulatory MICHAEL Sainz BEATRIZ Not Available Start: 08-10-2024 End: 08-10-2024 Bamboo flowsheet Jadiel Danilo [employer] MANAGEMENT [employer] [facility] Start: 08-10-2024 End: 08-10-2024 Bamboo flowsheet Jadiel Danilo [employer] [facility] Start: 08-10-2024 End: 08-10-2024 ambulatory Jadeil Danilo [employer]NA[employer] [facility] Comment on above: S/P arthroscopy of r ight shoulder (Primary Dx); Acute pain of right shoulder Start: 08-07-2024 End: 08-07-2024 Bamboo flowsheet Jadiel Danilo [employer] MANAGEMENT [employer] [facility] Start: 08-07-2024 End: 08-07-2024 Bamboo flowsheet Jadiel Danilo [employer] MANAGEMENT [employer] [facility] Start: 08-07-2024 End: 08-07-2024 ambulatory Jadiel Danilo [employer] MANAGEMENT [employer] [facility] Comment on above: S/P arthroscopy of r ight shoulder (Primary Dx); Acute pain of right shoulder Start: 08-04-2024 End: 08-04-2024 ambulatory Rufina Rubio Facility:[facility] Start: 08-04-2024 End: 08-04-2024 Patient encounter procedure 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 Start: 08-03-2024 End: 08-03-2024 Bamboo flowsheet Jadiel Danilo [employer] MANAG[employer] [facility] Start: 08-03-2024 End: 08-03-2024 Bamboo flowsheet Jadiel Danilo [employer] MANAGEMENT [employer] [facility] Start: 08-03-2024 End: 08-03-2024 ambulatory Jadiel Danilo [employer] MANAGEMENT [employer] [facility] Comment on above: S/P arthroscopy of r ight shoulder (Primary Dx); Acute pain of right shoulder Start: 07-24-2024 End: 07-24-2024 Bamboo flowsheet Jadiel Danilo [employer] MANAGEMENT [employer] [facility] Start: 07-24-2024 End: 07-24-2024 Bamboo flowsheet Jadiel Samuel [employer] MANAGEMENT [employer] [facility] Start: 07-24-2024 End: 07-24-2024 ambulatory Jadiel Samuel [employer] MANAGEMENT [employer] [facility] Comment on above: S/P [...] to same day surgery center Michael Henderson [facility] Start: 05-19-2024 End: 05-19-2024 ambulatory Michael Henderson Facility:[facility] Start: 05-04-2024 End: 05-04-2024 Patient encounter procedure Michael Henderson [facility] Comment on above: Traumatic incomplete tear of right rotator cuff, subsequent encounter (Primary Dx) Start: 05-04-2024 End: 05-04-2024 ambulatory DO Michael Henderson Facility:[facility] Start: 04-06-2024 End: 04-06-2024 Patient encounter procedure [...] Start: 03-07-2024 End: 03-07-2024 Patient encounter procedure Michael Sainz Beatriz DO Work Phone: [facility] Comment on above: Right shoulder pain, unspecified chronicity (Primary Dx) Start: 03-07-2024 End: 03-07-2024 ambulatory MICHAEL HENDERSON Not Available Start: 02-02-2024 End: 02-02-2024 ambulatory Rufina Rubio [facility] Work Phone: Start: 02-02-2024 End: 02-02-2024 Departed Referred NITROCELLULOSE OPERATOR-C Rufina Rubio Work Phone: [facility] Start: 02-02-2024 Encounter for gynecological examination (general) (routine) without abnormal findings Rufina Rubio [facility] Start: 01-31-2024 End: 01-31-2024 ambulatory MARICRUZ ARREOLA Not Available Start: 01-25-2024 End: 01-25-2024 ambulatory MICHAEL HENDERSON Not Available Start: 09-28-2023 End: 09-28-2023 ambulatory Services [facility] Work Phone: [facility] Work Phone: Start: 09-28-2023 End: 09-28-2023 Departed Referred Services [facility] Work Phone: [facility] Start: 08-26-2023 Chart abstracting Jenaro davis DPM Work Phone: [facility] Start: 06-29-2023 End: 06-29-2023 ambulatory DPM Jenaro Galeana Work Phone: [facility] Work Phone: Start: 06-29-2023 End: 06-29-2023 Departed Referred DPM Jenaro Galeana Work Phone: [facility] Start: 05-26-2023 End: 05-26-2023 ambulatory NITROCELLULOSE OPERATOR-C Rufina Rubio Work Phone: [facility] Work Phone: Start: 05-26-2023 End: 05-26-2023 Departed Referred NITROCELLULOSE OPERATOR-C Rufina Rubio Work Phone: [facility] [place] Work Phone: Start: 03-19-2023 End: 03-19-2023 ambulatory NITROCELLULOSE OPERATOR-C Rufina Rubio Work Phone: [facility] Work Phone: Start: 03-19-2023 End: 03-19-2023 Departed Referred NITROCELLULOSE OPERATOR-C Rufina Rubio Work Phone: [facility] Start: 12-08-2022 End: 12-08-2022 Patient encounter procedure Adam ERICKSON [facility] Start: 11-16-2022 End: 11-16-2022 ambulatory NITROCELLULOSE OPERATOR-C Rufina Rubio Work Phone: [facility] Work Phone: Start: 11-16-2022 End: 11-16-2022 Departed Referred NITROCELLULOSE OPERATOR-C Rufina Rubio Work Phone: [facility] [place] Work Phone: Start: 10-04-2022 End: 10-04-2022 ambulatory [facility] Start: 09-21-2022 End: 09-21-2022 ambulatory NON STAFF [facility] Work Phone: Start: 09-21-2022 End: 09-21-2022 Departed Referred NITROCELLULOSE OPERATOR-C Rufina Rubio Work Phone: [facility] Start: 08-31-2022 End: 08-31-2022 Departed Referred NITROCELLULOSE OPERATOR-C Rufina Rubio Work Phone: [facility] Start: 07-22-2022 End: 07-23-2022 Emergency department patient visit Services [facility] Work Phone: [facility] Work Phone: Start: 07-21-2022 End: 07-21-2022 ambulatory [facility] Start: 07-20-2022 End: 07-20-2022 ambulatory NITROCELLULOSE OPERATOR-C Rufina Chewson Work Phone: [facility] Work Phone: Start: 07-20-2022 End: 07-20-2022 Departed Referred NITROCELLULOSE OPERATOR-C Rufina Ramiro Work Phone: [facility] Start: 06-24-2022 End: 06-24-2022 ambulatory [facility] Start: 06-09-2022 End: 06-09-2022 ambulatory [facility] Work Phone: [facility] Work Phone: Start: 06-09-2022 End: 06-09-2022 Departed Referred [facility] Work Phone: [facility] Start: 04-14-2022 End: 04-14-2022 ambulatory [facility] Work Phone: [facility] Work Phone: Start: 04-14-2022 End: 04-14-2022 Departed Referred Services [facility] Work Phone: [facility] Start: 04-08-2022 End: 04-09-2022 ambulatory [facility] Start: 11-24-2021 End: 11-24-2021 ambulatory [facility] Start: 11-23-2021 End: 11-24-2021 Emergency department patient visit Venancio Orozco [facility] Start: 11-21-2021 End: 11-21-2021 ambulatory [facility] Start: 11-06-2021 End: 11-06-2021 ambulatory [facility] Procedures Date Procedure Procedure Detail Performing Clinician Start: 09-29-2024 Mammography of right breast Rufina Rubio NITROCELLULOSE OPERATOR-C Work Phone: Start: 09-29-2024 Ultrasonography guid ed biopsy of right breast Rufina Rubio NITROCELLULOSE OPERATOR-C Work Phone: Start: 09-22-2024 Bilateral mammography J vci Rubio NITROCELLULOSE OPERATOR-C Work Phone: Start: 09-22-2024 Ultrasonography of b ilateral breasts Rufina Rubio NITROCELLULOSE OPERATOR-C Work Phone: Start: 09-20-2024 Pelvic echography Denisa Rubio NITROCELLULOSE OPERATOR-C Work Phone: Start: 09-20-2024 US scan of bladder Larissa Rubio NITROCELLULOSE OPERATOR-C Work Phone: Start: 09-20-2024 Transvaginal echography Rufina Rubio NITROCELLULOSE OPERATOR-C Work Phone: Start: 08-04-2024 Urine culture Rufina Rubio NITROCELLULOSE OPERATOR-C Work Phone: Start: 05-30-2024 Radex shoulder compl ete minimum 2 views Michael Henderson DO Work Phone: Start: 05-19-2024 Arthroscopy of shoulder Michael Henderson Start: 05-26-2023 Aerobic microbial culture DPM Jenaro Lissett Work Phone: Start: 08-31-2022 Urine culture NITROCELLULOSE OPERATOR-C Larissa Rubio Work Phone: Start: 07-22-2022 Computed tomography of abdomen and pelvis with contrast NITROCELLULOSE OPERATOR-C Rufina Rubio Work Phone: Start: 07-22-2022 US scan of gallbladder NITROCELLULOSE OPERATOR-C Rufina Rubio Work Phone: Start: 07-20-2022 Urine culture Services [facility] Work Phone: Start: 06-09-2022 Urine culture NITROCELLULOSE OPERATOR-C Larissa Chewson Work Phone: Start: 11-19-2021 Arthroscopy of shoulder Venancio Orozco Urine culture Services [facility] Work Phone: Vaginal hysterectomy Venancio knox Plan of Treatment Date Care Activity Detail Author Start: 10-16-2024 End: 10-16-2024 Patient encounter procedure 10/16/2024 8:15 AM EDT Office Visit [facility] [address] [place] [phone] Michael Henderson, DO [address] [place] [address] [facility] Start: 09-29-2024 [facility] Start: 08-18-2024 End: 08-18-2024 ambulatory 08/18/2024 10:30 AM EST Treatment [facility] [address] [facility] [address] [place] [address] Janey Cox, PT [facility] Start: 08-17-2024 End: 08-17-2024 ambulatory 08/17/2024 10:30 AM EST Treatment [facility] [address] [facility] [address] [place] [address] Jadiel Samuel, RISK MANAGEMENT INTERN [facility] Start: 08-15-2024 End: 08-15-2024 ambulatory 08/15/2024 12:30 PM EST Treatment [facility] [address] [facility] [address] [place] [address] Janey Cox, PT [facility] Start: 08-14-2024 End: 08-14-2024 Patient encounter procedure [facility] Comment on above: Arrived Start: 08-10-2024 End: 08-10-2024 ambulatory 08/10/2024 10:30 AM EST Treatment [facility] [address] [facility] [address] [place] [address] Janey Cox, PT [facility] Start: 08-07-2024 End: 08-07-2024 ambulatory [facility] Comment on above: Arrived Start: 08-03-2024 End: 08-03-2024 ambulatory [facility] Comment on above: Arrived Start: 07-31-2024 End: 07-31-2024 ambulatory 07/31/2024 10:30 AM EST Treatment [facility] [address] [place] [address] Jadiel Samuel, RISK MANAGEMENT INTERN [facility] Start: 07-27-2024 End: 07-27-2024 ambulatory 07/27/2024 10:30 AM EST Treatment [facility] [address] [place] [address] Janey Cox, PT [facility] Start: 07-24-2024 End: 07-24-2024 ambulatory [facility] Comment on above: S/P arthroscopy of r ight shoulder (Primary Dx); Acute pain of right shoulder Start: 07-20-2024 End: 07-20-2024 ambulatory 07/20/2024 10:30 AM EST Treatment [facility] [address] [facility] [address] [place] [address] Jadiel Samuel, RISK MANAGEMENT INTERN [facility] Start: 07-17-2024 End: 07-17-2024 ambulatory 07/17/2024 10:30 AM EST Treatment [facility] [address] [facility] [address] [place] [address] Jadiel Samuel, RISK MANAGEMENT INTERN [facility] Start: 07-13-2024 End: 07-13-2024 ambulatory 07/13/2024 1:00 PM EST Treatment [facility] [address] [facility] [address] [place] [address] Parvin Adkins, PT [address] [place] [address] [facility] Start: 07-11-2024 End: 07-11-2024 ambulatory [facility] Comment on above: S/P arthroscopy of r ight shoulder Start: 07-04-2024 End: 07-04-2024 ambulatory 07/04/2024 7:00 AM EST Evaluation [facility] [address] [place] [address] Janey Cox, PT [facility] Start: 06-27-2024 End: 06-27-2024 Patient encounter procedure [facility] Comment on above: Arrived Start: 05-30-2024 End: 05-30-2024 Patient encounter procedure 05/30/2024 3:15 PM EST Office Visit [facility] [address] [place] [address] Michael Henderson, DO [address] [place] [address] [facility] Start: 05-04-2024 End: 05-04-2024 Patient encounter procedure 05/04/2024 1:30 PM EDT Office Visit [facility] [address] [place] [address] Michael Henderson, DO [address] [place] [address] [facility] Start: 04-06-2024 End: 04-06-2024 Patient encounter procedure 04/06/2024 2:30 PM EDT Office Visit [facility] [address] [place] [address] Michael Henderson, DO [address] [place] [address] Arrived [facility] Comment on above: Arrived Start: 03-12-2024 Influenza vaccination Influenza Vacc ine (#1) [facility] Start: 03-07-2024 End: 03-07-2024 Patient encounter procedure 03/07/2024 10:30 AM EDT Office Visit [facility] [address] [place] [address] Michael Henderson, DO [address] [place] [address] Arrived [facility] Comment on above: Arrived Start: 02-02-2024 [facility] Start: 09-28-2023 Bacteria identified in Urine by Culture Urine Culture [facility] Start: 08-26-2023 End: 08-26-2023 Patient encounter procedure 08/26/2023 9:00 AM EST Procedure Visit [facility] [address] [place] [address] Jenaro Galeana, DPM [address] [place] [address] [facility] Start: 06-29-2023 Bacteria identified in Urine by Culture [facility] Start: 05-26-2023 Superficial Wound Culture Superficial Wound Culture [facility] Start: 07-22-2022 Computed tomography of abdomen and pelvis with contrast CT abdomen pelvis w con [facility] Start: 07-22-2022 CT Abdomen and Pelvi s W contrast IV [facility] Start: 07-22-2022 US Gallbladder [facility] Start: 07-22-2022 US scan of gallbladder US gall bladd er [facility] Start: 07-20-2022 Bacteria identified in Urine by Culture Urine Culture [facility] Start: 2017 Screening for malign ant neoplasm of breast Mammogram [facility] Start: 10-13-2007 Screening for malign ant neoplasm of cervix [facility] Start: 1998 Screening for malign ant neoplasm of cervix Pap Smear [facility] Start: 1977 Screening for malign ant neoplasm of colon [facility] Atopobium vaginae DN A [Presence] in Vaginal fluid by MICHAEL with probe detection [facility] Bacteria identified in Urine by Culture [facility] Bacterial vaginosis associated bacterium 2 DNA [Presence] in Vaginal fluid by MICHAEL with probe detection [facility] Chlamydia trachomati s rRNA [Presence] in Cervix by MICHAEL with probe detection [facility] Human papilloma viru s 16+18+31+33+35+39+45+51+ 52+56+58+59+66+68 DNA [Presence] in Cervix by Probe with signal amplification [facility] Human papilloma viru s 16+18+31+33+35+39+45+51+ 52+56+58+59+68 DNA [Presence] in Cervix by Probe with signal amplification [facility] Megasphaera sp type 1 DNA [Presence] in Vaginal fluid by MICHAEL with probe detection [facility] Neisseria gonorrhoea e rRNA [Presence] in Cervix by MICHAEL with probe detection [facility] Patient Education Abdominal Pain , Adult ED [facility] Work Phone: Patient referral [facility] Work Phone: Payers Date Payer Category Payer Self-pay [id number] 2023 Medicaid [id number] 1975 Unknown [id number] 2.16.840.1.883095.3.579.2.59 3 1977 Unknown [id number] 2.16.840.1.460591.3.579.2.59 3 1977 Unknown [id number] 2.16.840.1.906911.3.579.2.59 3 1977 Unknown [id number] 2.16.840.1.450953.3.579.2.59 3 1977 Unknown [id number] 2.16.840.1.944985.3.579.2.59 3 1977 Unknown [id number] 2.16.840.1.949598.3.579.2.59 3 1977 Unknown [id number] 2.16.840.1.804455.3.579.2.59 3 1977 Unknown [id number] 2.16.840.1.154137.3.579.2.72 7 1977 Unknown [id number] 2.16.840.1.846827.3.579.2.12 1977 Unknown [id number] 2.16.840.1.938350.3.579.2.12 1977 Unknown [id number] 2.16.840.1.479443.3.579.2.12 1977 Unknown [id number] 2.16.840.1.572207.3.579.2.12 1977 Unknown [id number] 2.16.840.1.940897.3.579.2.12 1977 Unknown [id number] 2.16.840.1.237727.3.579.2.12 1977 Unknown [id number] 2.16.840.1.068575.3.579.2.12 1977 Unknown [id number] 2.16.840.1.349294.3.579.2.12 1977 Unknown [id number] 2.16.840.1.082174.3.579.2.12 1977 Unknown [id number] 2.16.840.1.318577.3.579.2.12 1977 Unknown [id number] 2.16.840.1.410719.3.579.2.12 1977 Unknown [id number] 2.16.840.1.047619.3.579.2.12 1977 Unknown [id number] 2.16.840.1.795557.3.579.2.12 1977 Unknown [id number] 2.16.840.1.383667.3.579.2.12 1977 Unknown [id number] 2.16.840.1.394791.3.579.2.12 1977 Unknown [id number] 2.16.840.1.093980.3.579.2.12 1977 Unknown [id number] 2.16.840.1.341422.3.579.2.72 7 1977 Unknown [id number] 2.16.840.1.270368.3.579.2.72 7 1959 Medicaid [id number] 1959 Medicaid [id number] Private Health Insurance [id number] Unknown Ken Wright [facility] [id number] Unknown [id number] 2.16.840.1.022996.3.579.2.53 1 Unknown [id number] 2.16.840.1.466065.3.579.2.53 1 Unknown [id number] 2.16.840.1.838657.3.579.2.53 1 Unknown [id number] 2.16.840.1.505669.3.579.2.53 1 Unknown [id number] 2.16.840.1.124175.3.579.2.53 1 Social History Date Type Detail Facility Start: 11-11-2020 End: 10-27-2022 Tobacco smoking status Heavy tobacco smoker (finding) [facility] Start: 05-26-2023 End: 08-14-2024 Sex Assigned At Female [facility] Start: 12-16-2020 End: 09-29-2024 Tobacco smoking status NHIS Smoker (finding) [facility] Start: 1975 Sex Assigned At Female [facility] Tobacco smoking status Never Execu tive [facility] Start: 07-12-1994 End: 01-25-2024 Tobacco smoking status [facility] Smokes tobacco daily [facility] Start: 07-12-1994 History of tobacco use Cigarette Smoker [facility] Start: 08-19-2023 End: 08-14-2024 Cigarettes smoked current (pack per day) - Reported 0.5 [facility] Start: 08-19-2023 Alcohol intake Not Asked [facility] Start: 05-25-2023 Tobacco Comment Smokes 6-10 cigs/day. [facility] Start: 05-25-2023 Alcohol Comment caffeine intake: 2-3 cups per day. [facility] Start: 05-25-2023 Gender identity Identifies as female gender (finding) [facility] Start: 05-25-2023 Sexual orientation Heterosexual (finding) [facility] Start: 01-25-2024 Tobacco use and exposure Smokeless tobacco non-user [facility] Start: 05-04-2024 End: 08-14-2024 Alcoholic beverage intake Ex-drinker (finding) [facility] Start: 10-23-2009 End: 09-21-2024 Sex Female (finding) [facility] Sexual Orientation [facility] Medical Equipment Procedure Code Equipment Code Equipment [...] Assessment Result Facility 05-04-2024 Functional Status No [facility] Clinical Notes 11-23-2021 to 09-29-2024 Note Date & Type Note Facility 09-29-2024 Evaluation note Diagnosis Onset Date Resolution Breast mass, right acute September 29, 2024 10:43am [facility] Work Phone: 1(385) 396-791903-21-2025 Radiology Diagnostic study [facility] [place] [address] [place] [address] Ultrasound Report Signed Patient: Archana Joy MR#: [id number] : 1975 Acct:[id number] Age/Sex: 48 / F ADM Date: 5 Loc: [facility] Room: Type: [facility] Attending Dr: Rufina Rubio NITROCELLULOSE OPERATOR-C Ordering Provider: Rufina Rubio Date of Service: 09/29/24 US/US biopsy RT 1st lesion guid: R92.8 ([id number]) MM/MM post biopsy RT w/CAD: CLIP PLACEMENT [...] Dara Hardy M.D.09/29/2024 11:50 AM Dictation Location: [facility] Tech: Funmilayo Cortez Transcribed By: JORGE 09/29/24 1150 Dictated By: Dara Hardy MD 09/29/24 1102 Signed By: 09/29/24 5794 [facility] Work Phone: 1(744) 184-286603-14-2025 Radiology Diagnostic study [facility] [place] [address] [place] [address] Ultrasound Report Signed Patient: Archana Joy MR#: [id number] : 1975 Acct:[id number] Age/Sex: 48 / F ADM Date: 5 Loc: [place] Room: Type: [facility] Attending Dr: Rufina Rubio NITROCELLULOSE OPERATOR-C Ordering Provider: Rufina Rubio Date of Service: 09/22/24 US/US breast BI limited: Breast lump in female;Breastcancer screening bymammogram ([id number]) MM/MM diagnostic mammo BI w/CAD: Breast lump [...] Gold Jr., LuzOGideon09/22/2024 10:15 AM Dictation Location: [facility] Tech: Zo Nevarezveterans administration medical centercharity; Shauna Woodall Transcribed By: JORGE 09/22/24 1015 Dictated By: Joe Gold Jr, DO 09/22/24 1000 Signed By: 09/22/24 1015 [facility]03-12-2025 Radiology Diagnostic study note [facility] [place] [address] [place] [address] Ultrasound Report Signed Patient: Archana Joy MR#: [id number] : 1975 Acct:[id number] Age/Sex: 48 / F ADM Date: 5 Loc: Room: Type: [facility] Attending Dr: Rufina Rubio NITROCELLULOSE OPERATOR-C Ordering Provider: Rufina Rubio Date of Service: 09/20/24 US/US pelvic complete: Recurrent UTI;Pelvic pain in female ([id number]) US/US transvaginal: PELIVIC PAIN IN FEMALE Copies to: Rufina Rubio~ Pelvic ultrasound. Reason for exam: Recurrent UTI. [...] Gold Jr., D.O.09/20/2024 1:50 PM Dictation Location: [facility] Tech: Bethany Neeta Transcribed By: PWS 09/20/24 1350 Dictated By: Joe Gold Jr, DO 09/20/24 1348 Signed By: 09/20/24 1350 [facility]03-12-2025 Radiology Diagnostic study note [facility] [place] [address] [place] [address] Ultrasound Report Signed Patient: Archana Joy MR#: [id number] : 1975 Acct:[id number] Age/Sex: 48 / F ADM Date: 5 Loc: Room: Type: [facility] Attending Dr: Rufina Rubio NITROCELLULOSE OPERATOR-C Ordering Provider: Rufina Rubio Date of Service: [...] Gold Jr., D.O.09/20/2024 1:48 PM Dictation Location: [facility] Tech: Bethany Santacruz Transcribed By: PWS 09/20/24 1348 Dictated By: Joe Gold Jr, DO 09/20/24 1348 Signed By: 09/20/24 1348 [facility]02-18-2025 Telephone encounter Note* Telephone Encounter - Belinda Buckner - 08/29/2024 8:41 AM EST Called and informed Dr. Beatriz Reyes's nurse, of attempts; she said she'd inform Dr. Henderson. [facility] [id number] Miscellaneous Notes* Telephone Encounter - Belinda Buckner [...] off providers recommendation. documented in this encounterNOMS [id number] Telephone encounter Note* Telephone Encounter - Belinda Buckner - 08/28/2024 1:30 PM EST Tried to contact but had to lm requesting call back dillon to verify status and if more PT is needed. Did include this is my final attempt. [facility] [id number] Telephone encounter Note* Telephone Encounter - Belinda Buckner - 08/22/2024 10:40 AM EST Tried to contact to offer rs PT. She had seen Dr. Henderson on 08/14 for fu, then cx, NS, cx her PT's that followed. Requested a call back to check status and rs off providers recommendation. [facility] [id number] History of Present illness Narrative* Michael Alistair [...] recently introduced to a new exercise involving dqiqrg-stk-arzh movements, which she reports has been progressively [...] note was created using voice recognition through Yuanfen~Flow™. documented in this [facility]01-02-2025 Telephone encounter Note* Telephone Encounter - Belinda [...] on 1/9 or cx due to status. [facility] [id number] Miscellaneous Notes* Telephone Encounter - Belinda Buckner [...] cx due to status. documented in this [facility]12-17-2024 History of Present illness Narrative* Michael Henderson DO - 06/27/2024 3:15 PM EST Images from the original note were not included. @ENCDATE@ Archana Rufino is a 48 y.o. female who presents for Post-op of the Right Shoulder (Rt shoulder [facility] 05/19/24) HPI: History of Present Illness The patient is 5.5 weeks status post right shoulder arthroscopy, rotator cuff repair, and distal clavicle coplaning, surgery date 05/19/2024. She expresses readiness to resume rehabilitation at [facility], a facility she has previouslyutilized. She continues [...] note was created using voice recognition through Yuanfen~Flow™. documented in this encounterSSM Health [facility] Children's [id number] History of Present illness Narrative* Michael Henderson [...] note was created using voice recognition through Yuanfen~Flow™. documented in this encounterSSM Health Cardinal Glennon Children's [id number] NoteProgress Note-Physician Patient: ARCHANA JOY Age: 48 years Sex: Female : 1975 Associated Diagnoses: None Author: Odilon ANSARI, Akbar Escobar Postoperative Information Postoperative disposition: Postoperative disposition: To PACU. Optimetrix number: Optimetrix number [id number]. Anesthetic utilized: General. Regional: Interscalene Block. Health [...] Discharge when meets criteria ( To home ).[facility]Comment [facility]:Result Comment: Electronically Signed By: Akbar Donald MD\.br\Date and Time Signed: 05/19/24 15:55 EST 05-19-2024 Evaluation + Plan noteExtracted from: Title:ANES Post-operative Note---General Author: Akbar Donald MD Date:05/19/24 Plan Transfer/Discharge: Transfer/Discharge Discharge when meets criteria ( To home ). Extracted from: Title:ANES Pre-operative Note 2022 Author:Akbar Felton Date:05/18/24 Plan [place] [employer] Anesthesiologists (ASA) physical status classification: Class III. Anesthetic Preoperative Plan: Anesthesia General. Regional interscalene brachial plexus block. [facility] 11-08-2024 Hospital Discharge instructions Patient Education 05/19/2024 11:08:40 Shoulder Cryocuff Patient Instructions - FT (CUSTOM) 05/19/2024 11:08:28 Post Op Patient Instructions - FT (CUSTOM) 05/19/2024 07:57:19 Jessica Henderson - After Your Shoulder Arthroscopy (Custom) [place], [place] [facility] AFTER YOUR SHOULDER ARTHROSCOPY [...] your appointment. Michael Henderson, DO [facility] [address] [place] [address] [phone] Reviewed: Follow Up Care 04/06/2024 15:53:21 With:Michael Henderson Address: [address] [place], [place] [phone]- Business (1) When:05/30/2024 15:15:00 Comments:Call for any problems. [facility] 11-08-2024 NotePatient Education - Text [place], [place] [facility] AFTER YOUR SHOULDER ARTHROSCOPY [...] your appointment. Michael Henderson, DO [facility] [address] [place] [address] Reviewed: [facility] NoteProgress Note-Physician Patient: ARCHANA JOY [facility]: [id number] Age: 48 years Sex: Female : 1975 [...] Acute cystitis with hematuria / SNOMED CT 707275551 / Confirmed Bipolar disorder / SNOMED CT 48149327 / Confirmed Chronic obstructive lung disease / SNOMED CT 34991626 / Confirmed History of kidney stones / SNOMED CT 4455453412 / Confirmed Impingement syndrome of right shoulder / SNOMED CT 594717568 / Confirmed Recurrent UTI / SNOMED CT 664506761 / Confirmed Smoker 11-JAN-2014 12:37:00<$> / SNOMED CT [id number] / Confirmed Added secondary to documentation in Social History. Resolved: anxiety / SNOMED CT 37674556 Resolved: Depression / SNOMED CT 999490737 Resolved: Headache / SNOMED CT 43629328 Resolved: MIGRAINE / SNOMED CT 6479587106 Canceled: Acute back pain / SNOMED CT 728509434 Canceled: Acute UTI / SNOMED CT [id number] Canceled: Endometriosis / SNOMED CT 4364030066 Canceled: kidney stones / SNOMED CT 943145858 Canceled: Pancreatitis / SNOMED CT 294778408 Canceled: Vaginal discharge / SNOMED CT 004421812 Canceled: Vaginal pain / ICD-9-CM 625.9 Canceled: Vomiting / SNOMED CT 2082824327, Active Problems (7) Acute cystitis with hematuria Bipolar disorder Chronic obstructive lung disease History of kidney stones Impingement syndrome of right shoulder Recurrent UTI Smoker Histories Past Medical History: Resolved MIGRAINE (4740227947): Resolved. anxiety (02666606): Resolved. Headache (05695710): Resolved. Depression (994084970): Resolved. Family History: Kidney stones Sister Procedure history: Arthroscopy of shoulder (364190166) on 05/30/2021 at 45 Years. Vaginal hysterectomy (895430831). Social History Social & Psychosocial Habits Alcohol 05/04/2024 Risk Assessment: Denies Alcohol Use 05/04/2024 Use: Current Comment: denies - 11/11/2020 20:16 - Marcelo RN, Kylie Arrington Substance Abuse 05/04/2024 Risk Assessment: Denies Substance Abuse 05/04/2024 Use: Current Comment: denies - 11/11/2020 20:16 - Marcelo RN, Kylie Arrington Tobacco 05/04/2024 Type: Cigarettes Comment: 1ppd - 09/08/2014 18:45 - Eliana TRIPP, Ikmberlyn 05/04/2024 Risk Assessment: High Risk 05/04/2024 Tobacco Use: 10 or more cigarettes (1/ Smokeless tobacco use: Never Type: Cigarettes . Physical Examination No qualifying data available Airway: Mallampati classification: II (soft palate, fauces, uvula visible). Respiratory: adequate air exchange. Cardiovascular: Regular rhythm. Review / Management Results review: No qualifying data available . Plan [place] [employer] Anesthesiologists (ASA) physical status classification: Class III. Anesthetic Preoperative Plan: Anesthesia General. Regional interscalene brachial plexus block.[facility] HospitalComment on above:Result Comment: Electronically Signed By: Odilon ANSARI, Akbar Escobar\.br\Date and Time Signed: 05/19/24 08:18 [id number] History of Present illness Narrative* Michael Henderson, - 05/04/2024 1:30 PM EDT Images from the original note were not included. @ENCDATE@ Archana Joy is a 48 y.o. female who presents for No chief complaint on file. HPI: History of Present Illness The patient is a 48-year-old lgvvq-zxug-gzplsxar female here to discuss moving forward with [...] rotation, resisted supination, or forward flexion. Negative Upperstrasburg's. Negative Neer/Stone impingement. No tenderness over the [...] Ortho Exam Results MRI of the shoulder [facility] 04/03/2024 shows a high grade partial thickness [...] note was created using voice recognition through Zafu artificial [employer]. documented in this encounterSSM Health Cardinal [facility] Children's [id number] History of Present illness Narrative* Michael Henderson DO - 04/06/2024 2:30 PM EDT Images from the original note were not included. @MARIAADATE@ Archana Rufino is a 48 y.o. female who presents for Pain of the Right Shoulder HPI: History of Present Illness The patient is a 48-year-old lyxpm-upbe-prxwsebq female here today to follow up on [...] rotation, resisted supination, or forward flexion. Negative Upperstrasburg's. Negative Neer/Stone impingement. No tenderness over the [...] Exam Results Imaging MRI of the shoulder [facility] 04/03/2024 shows a high grade partial thickness [...] undergo presurgical testing upon her return from [place]. Surgery is scheduled for 05/19/2024. She is [...] note was created using voice recognition through Zafu artificial intelligence. documented in this encounterSSM Health Cardinal [facility]on Children's HospitalChfjunkokh80-83-0065 History of Present illness Narrative* Michael Henderson DO - 03/07/2024 10:30 AM EDT Images from the original note were not included. @ENCDATE@ Archana Rufino is a 48 y.o. female who presents for Pain of the Right Shoulder HPI: History of Present Illness The patient is a 48-year-old ucoan-ywve-igtikqrc female who is here today to follow [...] rotation, resisted supination, or forward flexion. Negative [place]'s. Negative Neer/Stone impingement. No tenderness over the AC joint. Negative cross-arm adduction. Negative Speed's and Yergason's. No instability. Ortho Exam Results ASSESSMENT AND PLAN: I reviewed the history, physical exam, diagnostic studies, and diagnosis with the patient. Assessment & Plan 1. AC joint arthropathy, right shoulder An MRI of the right shoulder has been ordered at the imaging center in [place]. She is advised to continue with exercises [...] note was created using voice recognition through [employer] artificial intelligence. documented in this encounter[facility] [id number] Hospital Discharge instructions Patient Education 11/24/2021 00:26:31 [...] to strengthen the arm. General instructions Take htrw-ujp-fwyupvt and prescription medicines only as told by [...] 04/07/2006 Document Revised: 01/10/2019 Document Reviewed: 01/10/2019 [employer] Patient Education 2020 [employer] Newsletter. Follow Up Care 11/23/2021 23:20:28 With:Cande Hinds Address: [address] [place] [address]- Business (1) When:12/01/2021 only if needed [facility]05-15-2022 Evaluation + Plan noteExtracted from: Title:ED Note Author:Venancio Orozco DO Date :11/23/21 Acute pain of right shoulder (M25.511: Pain in right shoulder) Orders: acetaminophen-oxycodone, 1 tab(s), Tab, Oral, Once, Stop date 11/23/21 23:37:00 EDT, STAT, Start date 11/23/21 23:37:00 EDT Sling Apply XR Shoulder Complete Right [facility] Future Appointments Appointment Date:05/19/2024 10:30:00 AM Scheduled Provider: Location:[facility] Surgical Services Appointment Type:Surgery FT [facility] Evaluation + Plan note Future Appointments Appointment Date:02/14/2025 10:00:00 AM Scheduled Provider: Location:.[facility] Appointment Type:US Abdominal/Pelvis (FT) Diagnostic Tests Pending * [facility] 11/14/24 Future Scheduled Tests Radiology* US Pelvis Non-OB Complete 02/14/25 * US Transvaginal Non-OB 02/14/25 [facility] evaluation noteNo assessment information available [facility] Work Phone: Evaluation note* Diagnosis Traumatic [...] of right shoulder documented in this encounter [facility] HealthcareEvaluation note* Diagnosis S/P arthroscopy of right shoulder- Primary Acute pain of right shoulder documented in this encounter [facility] Healthcare[facility] note* Diagnosis S/P arthroscopy of right shoulder- Primary Acute pain of right shoulder documented in this encounter [facility] Healthcare[facility] note* Diagnosis S/P arthroscopy of right shoulder- Primary documented in this encounter [facility] HealthcareHospital course Narrative No data available for this section [facility] Additional Instructions As we discussed, [...] from the other day did show an infection.[facility] Work Phone: Hospital Discharge instructions No data available for this section [facility] Progress note No data available for this section [facility] Reason for visit Narrative* Rehabilitation - Outpatient (Routine) - Authorized Specialty Diagnoses / Procedures Referred By Timothy t Referred To Contact Physical Therapy Diagnoses S/P arthroscopy of right shoulder Procedures NM OFFICE/OUTPATIENT [facility] Michael Henderson, DO [address] [place] [address] Phone: tel: fax: [facility] CI PT [address] [facility] [address] [place] [address] Phone: tel: fax: Referral ID Status Reason Start Date Expiration Date Visits Requested Visits Authorized [id number] Authorized Specialty Services Required 07/11/2024 29 29 [facility] N[facility]* Rehabilitation - Outpatient (Routine) - Authorized Specialty Diagnoses / Procedures Referred By Contac t Referred To Contact Physical Therapy Diagnoses S/P arthroscopy of right shoulder Procedures NM THER PX 1/> AREAS EACH 15 MIN NEUROMUSC REEDUCA NM THERAPEUTIC PX 1/> AREAS EACH 15 MIN EXERCISES NM MANUAL THERAPY TQS 1/> REGIONS EACH 15 MINUTES PHYS/OCC THERAPY SS Michael Henderson, DO [address] [facility] [place] [address] Phone: tel: fax: [facility] [address] [facility] [address] [place] [address] Phone: tel: fax: Referral ID Status Reason Start Date Expiration Date Visits Requested Visits Authorized [id number] Authorized Specialty Services Required 07/13/2024 07/11/2025 30 30 [facility] Healthcare Chief Complaint and Reason for Visit [...] Active Brian Wood DO Attending Provider Active Fence Machine Operator Relationship Specialty Start Date End Date Unallocated, [place] [address] PCP - General 05/26/23 Team Status: Inactive Member Role Status Dates Services Family Health Primary Care Provider Active Start: September 28, 2023 End: September 28, 2023 ZANE Corrales Attending Provider Active Start: September 27 024 End: September 28, 2023 Team Status: Inactive Member Role Status Dates ZANE Driscoll Attending Provide r Active Start: February 02, 2024 End: February 02, 2024 Fence Machine Operator Relationship Specialty Start Date End Date Unallocated, Parker Rene MD [address] [place], [place] [address] [address] PCP - General 05/26/23 Rufina Rubio MD [address] [place] [address] Referring Physician Nurse Practitioner 01/06/24 Fence Machine Operator Relationship Specialty Start Date End Date Unallocated, Parker Rene MD [facility] [place] [address] PCP - General 05/26/23 Rufina Rubio MD [address] [place] [address] Referring Physician Nurse Practitioner 01/06/24 Fence Machine Operator Relationship Specialty Start Date End Date Unallocated, MD James Falcon[address] [place] [address] PCP - General 05/26/23 Rufina Rubio MD [address] [place] [address] Referring Physician Nurse Practitioner 01/06/24 Fence Machine Operator Relationship Specialty Start Date End Date Unallocated, MD [place] [address] PCP - General 05/26/23 Rufina Rubio MD [address] [place] [address] Referring Physician Nurse Practitioner 01/06/24 Fence Machine Operator Relationship Specialty Start Date End Date Unallocated, Parker Rene MD [facility] [address] [facility] [place] [address] PCP - General 05/26/23 Rufina Rubio MD [address] [place] [address] Referring Physician Nurse Practitioner 01/06/24 Fence Machine Operator Relationship Specialty Start Date End Date Unallocated, Parker Rene MD [address] [facility] [place] [address] PCP - General 05/26/23 Rufina Rubio MD [address] [place] [address] Referring Physician Nurse Practitioner 01/06/24 Fence Machine Operator Relationship Specialty Start Date End Date Unallocated, Parker Rene MD [facility] [place] [address] PCP - General 05/26/23 Rufina Rubio MD [address] [place] [address] Referring Physician Nurse Practitioner 01/06/24 Fence Machine Operator Relationship Specialty Start Date End Date Unallocated, Parker Rene MD [facility] [place] [address] PCP - General 05/26/23 Rufina Rubio MD [address] [place] [address] Referring Physician Nurse Practitioner 01/06/24 Fence Machine Operator Relationship Specialty Start Date End Date Unallocated, Parker Rene MD [facility] [place] [address] PCP - General 05/26/23 Rufina Rubio MD [address] [place] [address] Referring Physician Nurse Practitioner 01/06/24 Fence Machine Operator Relationship Specialty Start Date End Date Unallocated, Parker Rene MD [facility] [address] [facility] [place] [address] PCP - General 05/26/23 Rufina Rubio MD [address] [place] [address] Referring Physician Nurse Practitioner 01/06/24 Fence Machine Operator Relationship Specialty Start Date End Date Unallocated, Parker Rene MD [facility] [place] [address] PCP - General 05/26/23 Rufina Rubio MD [address] [place] [address] Referring Physician Nurse Practitioner 01/06/24 Fence Machine Operator Relationship Specialty Start Date End Date Unallocated, Parker Rene MD [address] [place] [address] PCP - General 05/26/23 Rufina Rubio MD [address] [place] [address] Referring Physician Nurse Practitioner 01/06/24 Fence Machine Operator Relationship Specialty Start Date End Date Unallocated, Parker Rene MD [facility] [place] [address] PCP - General 05/26/23 Rufina Rubio NP [facility] [address] [address] Referring Physician Nurse Practitioner 01/06/24 Fence Machine Operator Relationship Specialty Start Date End Date Unallocated, Parker Rene MD [address] [place] [address] PCP - General 05/26/23 Rufina Rubio NP [address] [place] [address] Referring Physician Nurse Practitioner 01/06/24 Fence Machine Operator Relationship Specialty Start Date End Date Unallocated, Parker Rene MD [address] [place] [place] [address] PCP - General 05/26/23 Rufina Rubio NP [address] [place] [address] Referring Physician Nurse Practitioner 01/06/24 Fence Machine Operator Relationship Specialty Start Date End Date Unallocated, Parker Rene MD [address] [place] [address] PCP - General 05/26/23 Rufina Rubio NP [address] [place] [address] Referring Physician Nurse Practitioner 01/06/24 Fence Machine Operator Relationship Specialty Start Date End Date Unallocated, Parker Rene MD [address] [place] [address] PCP - General 05/26/23 Rufina Rubio NP [address] [place] [address] Referring Physician Nurse Practitioner 01/06/24 Fence Machine Operator Relationship Specialty Start Date End Date Unallocated, Parker Rene MD [address] [place] [address] PCP - General 05/26/23 Rufina Rubio NP [address] [facility] [place] [address] Referring Physician Nurse Practitioner 01/06/24 Team Status: Active Member Role Status Dates Services Family Health Family Provider Active Rufina Rubio , NITROCELLULOSE OPERATOR-C Primary Care Prov ider Active Team Status: Inactive Member Role Status Dates Rufina Villarreal n , NITROCELLULOSE OPERATOR-C Attending Provider Active Start: August 04, 2024 End: August 04, 2024 Team Status: Inactive Member Role Status Dates Rufina Rubio , NITROCELLULOSE OPERATOR-C Primary Care Provider, Attending Provider Active Start: September 20, 2024 End: September 20, 2024 Team Status: Inactive Member Role Status Dates Rufina Rubio NITROCELLULOSE OPERATOR-C Primary Care Provider, Attending Provider Active Start: September 22, 2024 End: September 22, 2024 Team Status: Inactive Member Role Status Dates Rufina Rubio , NITROCELLULOSE OPERATOR-C Primary Care Provider, Attending Provider Active Start: September 29, 2024 End: September 29, 2024 Goals (unrecognized section and content) Goals may be documented in a n alternate section INFORMATION SOURCE (unrecogn ized section and content) DATE CREATED AUTHOR 10/05/2022 [facility] DATE CREATED AUTHOR AUTHOR'S ORGANIZ ATION 05/06/2024 [facility] DATE CREATED AUTHOR AUTHOR'S ORGANIZ ATION 08/15/2024 [facility] EPIC DATE CREATED AUTHOR AUTHOR'S ORGANIZ ATION 10/07/2024 [facility] DATE CREATED AUTHOR AUTHOR'S ORGANIZ ATION 11/17/2024 [facility] DATE CREATED AUTHOR AUTHOR'S ORGANIZ ATION 11/20/2024 [facility] Reason for Visit (unrecogniz ed section [...] BE BASED ON THE PRIMARY CLINICAL RECORDS. [facility]. provides no warranty or guarantee of the accuracy or completeness of information in this document.
--- NOTE | 2024-12-07 02:11 | ED.GENADUL1 ---
HPI HPI - General Adult General Chief complaint: Headache Stated complaint: migraine Time Seen by Provider: 12/07/24 01:58 Source: patient Mode of arrival: walk-in Limitations: no limitations History of Present Illness HPI narrative: patient presents complaining of migraine for 3 days. States she has not had one for a long time. Believes this was triggered by increased stress. Tonight she was vomiting and decided to come in. Neg neck pain or fever. No paresthesia Related Data Home Medications ?Medication ?Instructions ?Recorded ?Confirmed albuterol sulfate 2.5 mg/3 mL 2.5 mg inhalation Q6H PRN 06/05/23 12/07/24 (0.083 %) solution for nebulization shortness of breath or wheezing fluticasone 250 mcg-salmeterol 50 1 inh inhalation BID 06/05/23 12/07/24 mcg/dose blistr powdr for inhalation (Advair Diskus) tizanidine 2 mg tablet 2 mg PO Q12H 06/05/23 12/07/24 albuterol sulfate 90 mcg/actuation 2 puff inhalation Q6H PRN 07/21/23 12/07/24 aerosol inhaler shortness of breath or wheezing fluoxetine 40 mg capsule 40 mg PO QDAY 07/21/23 12/07/24 folic acid 1 mg tablet 1 mg PO QDAY 07/21/23 12/07/24 olanzapine 10 mg tablet 10 mg PO QDAY 07/21/23 12/07/24 ropinirole 0.5 mg tablet 1 mg PO .qhs 07/21/23 12/07/24 Previous Rx's ?Medication ?Instructions ?Recorded tizanidine 2 mg capsule (Zanaflex) 2 mg PO Q8H PRN muscle spasm #12 12/20/23 caps Allergies Allergy/AdvReac Type Severity Reaction Status Date / Time hydroxyzine (From Vistaril) Allergy Severe Rash Verified 12/07/24 01:46 ketorolac (From Toradol) Allergy Severe Rash Verified 12/07/24 01:46 magnesium sulfate Allergy Severe Rash Verified 12/07/24 01:46 naproxen (From Anaprox) Allergy Severe Rash Verified 12/07/24 01:46 aspirin AdvReac Severe Vomiting Verified 12/07/24 01:46 haloperidol (From Haldol) AdvReac Severe lock jaw Verified 12/07/24 01:46 Opioid HPI Opioid Management Most Recent Opioid Data: Last Pain Scale 8 Today, 01:55 Review of Systems ROS Status of ROS 10 or more systems reviewed and unremarkable except as noted in history and below [facility] Social History Smoking status: Current every day smoker Little interest or pleasure in doing things: not at all Feeling down, depressed, or hopeless: not at all Exam Constitutional Vital Signs, click to edit/add: Last Vital Signs Temp 98.4 F 12/07/24 01:41 Pulse 80 12/07/24 01:41 Resp 20 12/07/24 01:41 BP 105/75 12/07/24 01:41 Pulse Ox 100 12/07/24 01:41 O2 Del Method Room Air 12/07/24 01:41 Common normals: no apparent distress, average body habitus, oriented x3, no limitations, healthy appearing, alert and well nourished HENUT Common normals: normocephalic and head/scalp atraumatic Eye Common normals: PERRL, EOMs intact bilaterally and conjunctivae normal Respiratory Common normals: normal respiratory effort, no retractions, no use of accessory muscles and clear to auscultation bilaterally Cardio Common normals: regular rate, regular rhythm, S1 normal heart sound and S2 normal heart sound Extremity Common normals: normal to inspection, full ROM and normal capillary refill Neuro Common normals: oriented x3, CN's II-XII intact bilaterally, moves all extremities and no focal motor deficits Psych Appearance: grossly normal Course Vital Signs Vital signs: Vital Signs Temperature 98.4 F 12/07/24 01:41 Pulse Rate 80 12/07/24 01:41 Respiratory Rate 20 12/07/24 01:41 Blood Pressure 105/75 12/07/24 01:41 Pulse Oximetry 100 12/07/24 01:41 Oxygen Delivery Method Room Air 12/07/24 01:41 Temperature 98.4 F 12/07/24 01:41 Pulse Rate 80 12/07/24 01:41 Respiratory Rate 20 12/07/24 01:41 Blood Pressure 105/75 12/07/24 01:41 Pulse Oximetry 100 12/07/24 01:41 Oxygen Delivery Method Room Air 12/07/24 01:41 Medical Decision Making MDM Narrative Medical decision making narrative: patient presents with stress induced migraine headache. Improved after intervention in the department. Same headaches as in the past. NO associated neuro symptoms. Discharged to follow up with her doctor Lab Data Labs: Lab Results 12/07/24 Range/Units 02:30 WBC 13.2 H (4.0-11.0) 10^3/uL RBC 4.32 (4.20-5.40) 10^6/uL Hgb 13.9 (12.0-16.0) g/dL Hct 40.4 (36.0-48.0) % MCV 93.5 (81.0-99.0) fL MCH 32.2 (26.7-34.0) pg MCHC 34.4 (29.9-35.2) g/dL RDW 13.1 (11.0-15.0) % Plt Count 227 (150-450) 10^3/uL MPV 11.8 (9.5-13.5) fL Neut % (Auto) 62.3 (43.0-75.0) % Lymph % (Auto) 27.6 (20.5-60.0) % [place] % (Auto) 7.9 (1.7-12.0) % Eos % (Auto) 1.5 (0.9-7.0) % Baso % (Auto) 0.4 (0.2-2.0) % Neut # (Auto) 8.2 H (1.4-6.5) 10^3/uL Lymph # (Auto) 3.6 (1.2-3.8) 10^3/uL [place] # (Auto) 1.0 H (0.3-0.8) 10^3/uL Eos # (Auto) 0.2 (0.0-0.7) 10^3/uL Baso # (Auto) 0.1 (0.0-0.1) 10^3/uL Abs Immat Gran (auto) 0.04 H (0.00-0.03) 10^3/uL Imm/Tot Granulo (auto) 0.3 (0.0-0.5) % Sodium 141 (136-145) mmol/L Potassium 3.9 (3.5-5.1) mmol/L Chloride 103 (98-107) mmol/L Carbon Dioxide 28.3 (21.0-32.0) mmol/L Anion Gap 13.6 BUN 15.0 (7.0-18.0) mg/dL Creatinine 0.54 L (0.55-1.02) mg/dL Est GFR ( Amer) >60 (>=60 mL/min/1.73m^2) Est GFR (Non-Af Amer) >60 (>=60 mL/min/1.73m^2) BUN/Creatinine Ratio 27.8 Glucose 108 H (74-106) mg/dL Calcium 9.1 (8.5-10.1) mg/dL Discharge Plan Discharge Chief Complaint: Headache Clinical Impression: Migraine Patient Disposition: Home, Self-Care Prescriptions / Home Meds: No Action tizanidine [Zanaflex] 2 mg capsule 2 mg PO Q8H PRN (Reason: muscle spasm) Qty: 12 0RF albuterol sulfate 2.5 mg /3 mL (0.083 %) solution for nebulization 2.5 mg inhalation Q6H PRN (Reason: shortness of breath or wheezing) tizanidine 2 mg tablet 2 mg PO Q12H fluticasone propion-salmeterol [Advair Diskus] 250-50 mcg/dose blister with device 1 inh inhalation BID fluoxetine 40 mg capsule 40 mg PO QDAY olanzapine 10 mg tablet 10 mg PO QDAY ropinirole 0.5 mg tablet 1 mg PO .qhs folic acid 1 mg tablet 1 mg PO QDAY albuterol sulfate 90 mcg/actuation HFA aerosol inhaler 2 puff INHALATION Q6H PRN (Reason: shortness of breath or wheezing) Print Language: Spanish Instructions: Migraine Headache (ED) Referrals: [facility] [Primary Care Provider] - 1 week Discharge Date/Time: 12/07/24 05:01
[2024-12-07] MEDS: DIPHENHYDRAMINE HCL 50 MG/ML VIAL IVP (02:38)
[2024-12-07] MEDS: 0.9 % SODIUM CHLORIDE 1,000 ML 999 ML IV (02:38)
[2024-12-07] MEDS: METHYLPREDNISOLONE SOD SUCC PF 125 MG/2 ML VIAL IVP (02:38)
[2024-12-07 03:00] LABS: Basophils Absolute Auto 0.1 10^3/uL (0.0-0.1); Basophils Percent Auto 0.4 % (0.2-2.0); Eosinophils Absolute Auto 0.2 10^3/uL (0.0-0.7); Eosinophils Percent Auto 1.5 % (0.9-7.0); Hematocrit 40.4 % (36.0-48.0); Hemoglobin 13.9 g/dL (12.0-16.0); Immature Granulocytes Abs Auto 0.04 10^3/uL (0.00-0.03); Immature Granulocytes Pct Auto 0.3 % (0.0-0.5); Lymphocytes Absolute Auto 3.6 10^3/uL (1.2-3.8); Lymphocytes Percent Auto 27.6 % (20.5-60.0); Mean Corpuscular HGB Conc 34.4 g/dL (29.9-35.2); Mean Corpuscular Hemoglobin 32.2 pg (26.7-34.0); Mean Corpuscular Volume 93.5 fL (81.0-99.0); Mean Platelet Volume 11.8 fL (9.5-13.5); Monocytes Percent Auto 7.9 % (1.7-12.0); Neutrophils Absolute Auto 8.2 10^3/uL (1.4-6.5); Neutrophils Percent Auto 62.3 % (43.0-75.0); Platelet Count 227 10^3/uL (150-450); Red Blood Count 4.32 10^6/uL (4.20-5.40); Red Cell Distribution Width 13.1 % (11.0-15.0); White Blood Count 13.2 10^3/uL (4.0-11.0)
[2024-12-07 03:11] LABS: Anion Gap 13.6; BUN Creatinine Ratio 27.8; Calcium 9.1 mg/dL (8.5-10.1); Carbon Dioxide 28.3 mmol/L (21.0-32.0); Chloride 103 mmol/L (98-107); Estimated GFR (African America >60 (>=60 mL/min/1.73m^2); Estimated GFR (Non-African Ame >60 (>=60 mL/min/1.73m^2); Glucose 108 mg/dL (74-106); Potassium 3.9 mmol/L (3.5-5.1); Sodium 141 mmol/L (136-145)
[2024-12-07] MEDS: DIAZEPAM 10 MG/2 ML SYRINGE 5 MG IV (04:53)
== END 2024-12-07 05:01 | disposition home or self-care (01) ==
PROVIDERS: Emergency Provider Internal Medicine
DX: G43.909 Migraine, unspecified, not intractable, without status migrainosus (principal); F43.9 Reaction to severe stress, unspecified; R11.10 Vomiting, unspecified
CPT/HCPCS: 36415; 80048; 85025; 96361; 96374; 96375; 99285; J1200; J2919; J3360

== ENCOUNTER 2024-12-10 22:33 | Emergency (ER) | payer MEDICAID, SELFPAY ==
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
--- OUTSIDE RECORDS SUMMARY | 2024-11-23 06:00 | XMS_ITS ---
Author Organization [facility] Address [address] [place] [address] Care Team Providers Care Key Person Name Role Phone Charlie Pepe Primary Care Provider [phone] Portillo Kylie Fernandes [phone] Allergies Allergen (clinical drug ingredient) Drug/Non Drug Allergy documented on EMR Reaction Allergy Type Onset Date Status aspirin ASA (uncoded) rash Allergy Active HALDOL (uncoded) anaphylaxis Allergy A ctive magnesium sulfate magnesium sulfate (uncoded) vomiting Allergy Active Non-steroidal anti-inflammatory agent (FN) NSAIDS (uncoded) rash Allergy Active metoclopramide Reglan (uncoded) rash Allergy Active Substance with sulfonamide structure and antibacterial mechanism of action (substance) Sulfa (uncoded) rash Allergy Active ketorolac Toradol (uncoded) hives Allergy Ac tive hydroxyzine Vistaril (uncoded) vomiting Allergy Active Anaprox rash Drug Allergy Active metronidazole Flagyl rash Drug Allergy Act aggie REASON FOR VISIT [id number] Medications Medication SIG (Take, Route, Frequency, Duration) Notes Start Date End Date Status FLUoxetine HCl 40 MG take 1 capsule by m outh once daily Orally Once a day for 90 days Active Albuterol Sulfate HFA 108 (90 Base) MCG/ACT 2 puff as needed Inhalation every 4 hrs for 30 days Active Fluticasone Propionate 50 MCG/ACT 1 spray in each nostril Nasally Once a day for 30 days 08/04/2024 Active Albuterol Sulfate (2.5 MG/3ML) 0.083% 3ml Inhalation four times a day (qid) as needed (prn) for 30 days As needed Active Montelukast Sodium 10 MG TAKE 1 TABLET B Y MOUTH DAILY for 90 Active tiZANidine HCl 2 MG 1 tablet Orally Twice per day for 30 days As needed 01/07/2025 Active Symbicort 160-4.5 MCG/ACT 2 puffs Inhala tion Twice per day for 30 days 09/18/2024 02/06/2025 Active Omeprazole 40 MG 1 capsule 30 minutes before morning meal Orally Once a day for 30 day(s) Active rOPINIRole HCl 1 MG TAKE ONE TABLET BY M OUTH ONE TO THREE HOURS BEFORE BEDTIME for 90 days Active OLANZapine 15 MG TAKE 1 TABLET BY SHABBIR TH DAILY for 90 days Active LORazepam 0.5 MG 1 tablet Orally Once a day for 30 days As needed 11/08/2024 Active Social History Tobacco Use: Social History Observation Description Date Details (start date - stop date) Current Smoker NA - NA Sex Assigned At : Social History Observation Description Sex Assigned At Female Tobacco Screen: Question Answer Notes Are you a: current smoker How often do you smoke cigarettes? every day How many cigarettes a day do you smoke? 11-20 Sexual Hx: Question Answer Notes Had sex in the last 12 months (vaginal, oral, or anal)? Yes with Men only Have you ever had an STD? Yes Herpes? Yes Alcohol Screening: Question Answer Notes Did you have a drink containing alcohol in the p ast year? No Points 0 Interpretation Negative Vital Signs Height 62 in 11/23/2024 Weight 127.6 lbs 11/23/2024 BMI 23.34 kg/m2 11/23/2024 Temperature 98.0 degrees Fahrenheit 11/24/19 25 Blood pressure systolic 121 mm Hg 11/24/19 25 Blood pressure diastolic 73 mm Hg 025 Oximetry 100 % 11/23/2024 Heart Rate 77 /min 11/23/2024 Respiratory Rate 20 /min 11/23/2024 Encounters Encounter Location Date Provider Diagnosis [address] [address] 11/23/2024 Kylie Portillo Vitamin B deficiency E53.9 and Vitamin B 12 deficiency E53.8 Assessments Encounter Date Diagnosis (ICD Code) Assessment Notes Treatment Notes Treatment Clinical Notes Section Notes 11/23/2024 Vitamin B deficiency (ICD-10 - E53.9) 11/23/2024 Vitamin B 12 deficiency (ICD-10 - E53.8) 11/23/2024 Other Body Mass Index : Care Instructions material was published Plan Of Treatment Treatment Notes Assessment Notes Other Body Mass Index: Car e Instructions material was published Next Appt Details Provider Name:Pepe Roberto vignesh, 01/23/2025 03:00:00 PM, [address] [place], [address], Provider Name:Pepe Roberto vignesh, 02/07/2025 02:30:00 PM, [address] [place], [address], Medications Administered Medication Instructions Date of Administration Dosage Notes B-12 injection 11/23/2024 1 mL Progress Notes * CHAUNCEY SANCHEZIDOB: 8 (49 yo F)Acc No.[id number]:11/23/2024 Progress Note Patient: ZIGGY ELI Appointment Provider: Selvin Portillo :1975 A ge:49 Y S ex:Female Supervising Provider:Kylie Portillo Date:11/23/2024 Address:[address] [place] [address], [address] [place], [id number] Pcp:Pepe Guerra Subjective: * Chief Complaints: * 1 . [id number]. * HPI: C onstitutional: pt is here for B12 injection with no other question nor concerns. * ROS: G eneral Review of Systems: General D enies fever, chills, weight loss. E yes D enies vision changes, no double vision or blurry vision. . H EENT D enies sore throat, ear pain., Denies fevers , chills, Denies nasal congestion, or pressure, Denies hoarseness, change in voice, difficulty swallowing. C ardiovascular D enies chest pain, palpitations, exertional dyspnea. R espiratory D enies cough, dyspnea, wheezing, sputum production, hemoptysis. G astrointestinal D enies abdominal pain, nausea, vomiting, diarrhea, or constipation. Denies blood in stool or changes in bowel habits.. G enitourinary D enies urgency, frequency, dysuria, hematuria. M usculoskeletal D enies joint pain, myalgias. D ermatology D enies rashes or lesions. N eurological D enies any lightheadedness, dizziness, headache, new numbness or tingling in hands or feet. . * Medical History: M igraines, Depression, Anxiety, COPD, Tobacco Use, Herpes Simplex Type II, Right Ovarian Cyst, Right Kidney Cyst, Chronic Shoulder Pain, UTI, B12 Deficiency, Paronychia, Nail Fungal Infection. * Surgical History: O varian cyst 1998, Tubal Ligation 1999, Esophagogastroduodenoscopy (EGD) 05/25/14, Colonoscopy 05/25/14, Total Abdominal Hysterectomy Related to Cervical Cell Changes , Bicep Repair/ Shoulder Repair 2020, Left Toenail Removal 04/2024, Right Shoulder Tendon Repair 05/2024. * Hospitalization/Major Diagno stic Procedure: R UQ Pain ([facility] [place]) 2010, Pancreatitis 05/25/14, 1S Psych 09/23. * Family History: M other: alive, Hepatitis, Cervical Ca, Endometriosis. 1 brother(s) , 2 sister(s) . 2 son(s) , 1 daughter(s) . . broter with Asthma, alcoholism, HTN Both sisters had cervical cancer, one sister had thyroidectomy Both sons have asthma. * Social History: G eneral: T obacco Screen A re you a: c urrent smoker H ow often do you smoke cigarettes? e very day H ow many cigarettes a day do you smoke? 1 1-20 Alcohol Screening D id you have a drink containing alcohol in the past year? N o P oints 0 I nterpretation N egative Transition of Care E R/UC/hospital since last office visit? N o S pecialist seen since last office visit? N o Behaviors affecting health P oor/Risky Behaviors: D enies- Substance abuse/mental health issues of patient/family P atient - D enies Social/Support Concerns P atient: N o Ability to understand healthcare/treatment P atient: F air Communication Barrier L anguage Barrier?: N o Sexual Hx H ad sex in the last 12 months (vaginal, oral, or anal)? Y es w ith M en only H ave you ever had an STD? Y es H erpes? Y es * Medications: T aking rOPINIRole HCl 1 MG Tablet TAKE ONE TABLET BY MOUTH ONE TO THREE HOURS BEFORE BEDTIME , Taking OLANZapine 15 MG Tablet TAKE 1 TABLET BY MOUTH DAILY , Taking Symbicort 160-4.5 MCG/ACT Aerosol 2 puffs Inhalation Twice per day , stop date 02/06/2025, Taking Omeprazole 40 MG Capsule Delayed Release 1 capsule 30 minutes before morning meal Orally Once a day , Taking tiZANidine HCl 2 MG Tablet 1 tablet Orally Twice per day As needed, stop date 01/07/2025, Taking Albuterol Sulfate HFA 108 (90 Base) MCG/ACT Aerosol Solution 2 puff as needed Inhalation every 4 hrs , Taking FLUoxetine HCl 40 MG Capsule take 1 capsule by mouth once daily Orally Once a day , Taking Albuterol Sulfate (2.5 MG/3ML) 0.083% Nebulization Solution 3ml Inhalation four times a day (qid) as needed (prn) As needed, Taking Montelukast Sodium 10 MG Tablet TAKE 1 TABLET BY MOUTH DAILY , Taking Fluticasone Propionate 50 MCG/ACT Suspension 1 spray in each nostril Nasally Once a day , Taking LORazepam 0.5 MG Tablet 1 tablet Orally Once a day As needed, Medication List reviewed and reconciled with the patient * Allergies: A naprox: rash, HALDOL: anaphylaxis, ASA: rash, magnesium sulfate: vomiting, Flagyl: rash, Sulfa: rash, Reglan: rash, NSAIDS: rash, Vistaril: vomiting, Toradol: hives. Objective: * Vitals: H t: 62 in, Wt: 127.6 lbs, BMI:23.34Index, Temp: 98.0 F, BP: 121/73 mm Hg, SaO2:100%, HR: 77 /min, RR: 20 /min. Assessment: * Assessment: 1. V itamin B deficiency - E53.9 (Primary) 2 . V itamin B 12 deficiency - E53.8 Plan: * Treatment: * Therapeutic Injections: B-12 injection : 1 mL (Route: Intramuscular) given by Dilister Alvarez on right arm intramuscular (Vitamin B 12 deficiency) * Procedure Codes: J 3420 VITAMIN B12, [address]9546 THER/PROPH/DIAG INJ, SC/IM * Preventive Medicine: COUNSELING: C ommunication to patient: Counseling for Nutrition Provided Y es Counseling for Physical Activity Provided Y es BMI management provided Y es Nutrition/Dietary Counseling provided?Yes * Images: * Electronic signature of Kylie Portillo , ZAHIRAP, SUPERVISOR [employer] on 12/10/2024 at 10:38 PM EDT Sign off status: Pending * Appointment Provider: Selvin Portillo Date: 0 11/23/2024 Generated for Carmen pedersen/Jazmin/Jameson on: 0 12/10/2024 10:38 PM EDT History and Physical Notes * HPI (History of Present Illness) Category Sub-Category Detail Notes Category Not es Constitutional pt is here fo r B12 injection with no other question nor concerns
--- OUTSIDE RECORDS SUMMARY | 2024-12-10 22:39 | XMS_ITS | CCD ---
Author Organization [facility] Care Team Providers Care General Office Worker Name Role Phone LizetCande rivera Selvin Primary Care Physician [phone] Bree Jimenes Un[address] Un[address] [facility] Primary Care Provider [phone] ZANE Rubio Attending Pr ovider [facility] Primary Care Provider ZANE Rubio Attending Pr ovider ZANE Rubio Attending Pr ovider [facility] Primary Care Provider MD Salvador Maier Jr Emergency Provider ZANE Rubio Attending Pr ovider NON STAFF Primary Care Provider Unavailabl e [facility] Primary Care Provider MD Salvador Maier Jr Emergency Provider [facility] Primary Care Unavaila sindhu Meneses, DR RICH Admitting Unavailable ROSE ., DR RICH Attending Unavailable ROSE ., DR RICH Consulting Unavailable [facility] Primary Care Unavaila sindhu ANGELA, DR ADDY Arrington Admitting Unavailable COREEN, DR ADDY Arrington Attending Unavailable ROSALIA ARROYO Consulting Unavailable [facility] Primary Care Unavaila ble [facility] Admitting Unavailable [facility] Attending Dom BENITEZ, DR MILE Pedersen Consulting Unavailable PAY ., DR ARGUETA Consulting Unavailable [facility] Consulting Unavailable LUDIN ANGELES Consulting Unavailable [facility] Primary Care Unavaila ble COREEN, DR ADDY Arrington Admitting Unavailable COREEN, DR ADDY Arrington Attending Unavailable COREEN, DR ADDY Arrington Consulting Unavailable IRENE VENTURA Consulting Unavailable [facility] Primary Care Unavaila ble JUAN R ., DR GARCIA Admitting Unavailable MARKER ., DR GARCIA Attending Unavailable MARKER ., DR GARCIA Consulting Unavailable [facility] Primary Care Unavaila ble SHAWNA ., TREVOR Admitting Unavailable SHAWNA ., TREVOR Attending Unavailable SHAWNA ., TREVOR Consulting Unavailable [facility] Primary Care Unavaila ble SHAWNA ., TREVOR Admitting Unavailable SHAWNA ., TREVOR Attending Unavailable AYE ., PA ZOË Consulting Unavailsanchez VILLALPANDO, KAE Consulting Unavailable ZANE Rubio Attending Pr ovider ZANE Rubio Attending Pr ovider ZANE Rubio Attending Pr ovider MORGAN Galeana Attending Provider DO Brian Wood Attending Provider [phone] Unallocated, Noms Provider Primary Care Provider [facility] Primary Care Provider ZANE [...] Unavailable BROWN, MICHAEL A Referring Unavailable Rubio POLYMER TESTER-C, Rufina Lerma Attending Pr ovider Ramiro POLYMER TESTERTrayC, Rufina Lerma Primary Care Provider Rufina Rubio Attending U navailable Rubio, Rufina Lerma Primary Care U navailable Rubio, Rufina Lerma Admitting U navailable Ruboi, Rufina Lerma Attending U navailable Rubio, Rufina [...] navailable Brown, Michael A Admitting Unavailable Brown, Michale A Attending Unavailable Brown, Michael A Referring Unavailable Akbar Philippe Admitting Unavailable Akbar Philippe Attending Unavailable Brown, Michael A Referring Unavailable Brown, Michael A Admitting Unavailable Brown, Michael A Attending Unavailable Allergies Allergy Classification Reported Allergen(s) Allergy Type Date of Onset Reaction(s) Facility (20 sources) Aspirin; Translations: [aspirin] Drug Allergy 12-17-19 vomiting, Nausea [facility] (20 sources) Haloperidol; Translations: [haloperidol] Drug Allergy 12-17-19 21 jaw locked sideways, Anaphylaxis [facility] (20 sources) hydrOXYzine; Translations: [hydroxyzine] Drug Allergy 12-17-19 21 rash, vomiting, Hives [facility] (7 sources) Ketorolac; Translations: [ketorolac] Drug Allergy migraines [facility] (20 sources) Magnesium Sulfate; Translations: [magnesium sulfate] Drug Allergy 12-17-[address] [facility] (20 sources) metroNIDAZOLE; Translations: [metronidazole] Drug Allergy 12-17-19 21 vomiting, Hives [facility] (20 sources) Naproxen; Translations: [naproxen] Drug Allergy 12-17-[address] [facility] (20 sources) NSAIDs; Translations: [NSAIDs] Drug allergy 04-23-[address] [facility] (20 sources) Sulfamethoxazole / Trimethoprim; Translations: [sulfamethoxazole-t rimethoprim] Drug Allergy 05-26-[address] [facility] (15 sources) Sulfamethoxazole; Translations: [sulfamethoxazole] Drug Allergy 12-17-19 21 [facility] (20 sources) Trimethoprim; Translations: [trimethoprim] Drug Allergy 12-17-19 21 [facility] (15 sources) NSAIDS (Non-Steroidal Anti-Inflamma; Translations: [NSAIDS (Non-Steroidal Anti-Inflamma] Allergy to substance 12-17-19 [facility] (1 source) Aspirin Drug Allergy 10-08-19 15 [facility] (1 source) Haloperidol Drug Allergy 10-08-19 15 [facility] (1 source) hydrOXYzine Drug Allergy 09-14-19 16 [facility] (1 source) Iothalamate Drug Allergy 09-16-19 16 [facility] (1 source) Ketorolac Drug Allergy 09-14-19 16 [facility] (1 source) Magnesium Sulfate Drug Allergy 10-08-19 15 [facility] (1 source) metroNIDAZOLE Drug Allergy 10-08-19 15 [facility] (1 source) Naproxen Drug Allergy 10-08-19 15 [facility] (1 source) NSAIDs Drug allergy (disorder) 10-08-19 15 [facility] (1 source) Sulfonamides (Antibiotic) Drug allergy (disorder) 10-08-19 15 [facility] (20 sources) Aluminum aspirin Drug Allergy 04-23-20 23 [facility] (20 sources) Ketorolac Allergy to substance 05-26-20 23 [facility] (20 sources) Ketorolac trometamol Propensity to adverse reactions 04-23-20 [facility] (20 sources) Magnesium Salicylate Drug Allergy 05-26-20 Other [facility] (20 sources) Magnesium sulfate Propensity to adverse reactions 04-23-20 [facility] (20 sources) Metoclopramide Drug Allergy 04-23-20 [facility] (20 sources) Penicillins Drug Allergy 05-26-20 [facility] (20 sources) Sulfonamides (Antibiotic) Drug Allergy 05-26-20 [facility] (6 sources) Sulfacetamide; Translations: [sulfacetamide] Drug Allergy 10-16-19 [facility] (20 sources) Sulfur; Translations: [sulfur] Drug Allergy 10-16-19 [facility] (1 source) Aspirin Drug Allergy 07-22-19 [facility] (1 source) Haloperidol Drug Allergy 07-22-19 [facility] (1 source) hydrOXYzine Drug Allergy 07-22-19 [facility] (1 source) Magnesium Sulfate Drug Allergy 07-22-19 [facility] (1 source) metroNIDAZOLE Drug Allergy 07-22-19 [facility] (1 source) Naproxen Drug Allergy 07-22-19 [facility] Medications Current Medications Medication Drug Class(es) Dates Sig (Normalized) Sig (Original) acetaminophen 325 mg / oxyCODONE hydrochloride 5 mg oral tablet (16 sources) Opioid Agonist Start: 05-19-2024 Percocet 5 mg-325 mg oral tablet See Instructions, 40 tab(s), Refill(s) 0, 1-2 tab(s) Oral q4hr, [facility] [id number], 159, cm, 05/05/24 7:05:00 EDT, Height/Length Dosing, [...] Weight Dosing Start Date: 05/30/21 Status: Ordered [id number] 200 actuat albuterol 0.09 mg/actuat metered dose [...] constipation, # 20 cap(s), Refills(s) 0, Pharmacy: [facility] [id number], 159, cm, 05/05/24 7:05:00 EDT, Height/Length Dosing, 54.6, kg, 05/05/24 7:05:00 EDT, Weight Dosing Start Date: 05/19/24 Status: Ordered Quantity: 20.0 Unit: cap(s) Repeat number: 1 Start: 05-30-2021 take 1 capsule by mo [facility] twice daily as needed for constipation Colace 100 mg Cap 100 mg = 1 cap(s), Oral, BID, PRN for constipation, # 20 cap(s), Refills(s) 0, Pharmacy: [facility] 858, 156, cm, 05/21/21 5:13:00 [...] 8-10, # 4 cap(s), Refills(s) 0, Pharmacy: [facility] 858, 155, cm, 06/08/21 8:15:00 EST, Height/Length [...] procedure, # 2 tab(s), Refills(s) 0, Pharmacy: [facility] [id number], 156, cm, 10/27/22 14:36:00 EDT, Height/Length Dosing, [...] 05-29-2019 Episodic Other aftercare (1 source) Other prison (current) drug therapy; Translations: [OTH GROUP HOME CURRENT DRUG THERAPY] Onset: 07-23-2022 Episodic [...] Follitropin Qn 14.5 m[IU]/mL Invalid Interpretation Code [facility] Comment on above: Result Comment: Adul t Female Range Follicular phase 3.5 - 12.5 Ovulation phase 4.7 - 21.5 Luteal phase 1.7 - 7.7 Postmenopausal 25.8 - 134.8 Performed at: [address] [id number] PhD Nii Pearce Performed By: #### 1 [id number] #### [facility] [address] [place] [address] Lutropin Qn 18.5 m[IU]/mL Invalid Interpretation Code [facility] Comment on above: Result Comment: Adul t Female Range Follicular phase 2.4 - 12.6 Ovulation phase 14.0 - 95.6 Luteal phase 1.0 - 11.4 Postmenopausal 7.7 - 58.5 Performed By: #### 1 [id number] #### [facility] [address] [place] [address] Geronimo 09-29-2024 L - -------- Specimen: [id number] Received: 09/29/24 Status: ANGELICABibiana Jannie Num: [id number] Spec Type: Surgical Subm Dr: Dara Hardy MD Tissues: A BREAST CORE NO CALCS (RT BREAST 12:00 6 CM FROM NI) Procedures: HE/4, Gross/Micro L4 -------- Age/ Patient Sex Location Account Attending Physician -------- ToddblasArchana Jose 48/F MELA [id number] Rufina Jenkins -------- SPEC NUM: [id number] RECD: 09/29/24 STATUS: BECKA NAIR NUM: [id number] GARETH: 09/29/24- [facility] DR: Dara Hardy MD ENTERED: 09/29/[address] [facility] [address]: Rufina Rubio SPEC TYPE: Surgical DEPT: [...] 54 hours and 30 minutes (2, ns, [id number] A) KASSIE -------- Specimen: [id number] Received: 09/29/24 Status: BECKA Jannie Num: [id number] Spec Type: Surgical Subm Dr: Dara Hardy MD Tissues: A BREAST CORE NO CALCS (RT BREAST 12:00 6 CM FROM NI) Procedures: HE/Mary Grfaf/Vladimir L4 -------- Patient: Archana Joy [id number] (Continued) -------- Specimen: [id number] Received: 09/29/24 (Continued) Signed (signature on file) Leonidas Contreras MD 10/02/24 1053 -------- Specimen: [id number] Received: 09/29/24 Status: BECKA Nair Num: [id number] Spec Type: Surgical Subm Dr: Dara Hardy MD Tissues: A BREAST CORE NO CALCS (RT BREAST 12:00 6 CM FROM NI) Procedures: HE/Prerna, Gross/Micro L4 -------- Patient: Archana Joy N [id number] (Continued) -------- Specimen: [id number] Received: 09/29/24 (Continued) Microscopic Description Microscopic examination is performed. CPT Codes 84343 -------- -------- Specimen: [id number] Received: 09/29/24 Status: BECKA Nair Num: [id number] Spec Type: Surgical Subm Dr: Dara Hardy MD Tissues: A BREAST CORE NO CALCS (RT BREAST 12:00 6 CM FROM NI) Procedures: HE/Prerna, Gross/Micro L4 -------- Patient: Archana Joy Jose [id number] (Continued) -------- Signed (signature on file) Leonidas Contreras MD 10/02/24 1053 Normal [facility] MM post biopsy RT w/CADkamilla MM post biopsy RT w/CAD [address] [address] Ultrasound Report Signed with Laura Patient: Archana Joy Jose MR#: [id number] : 1975 Acct:[id number] Age/Sex: 48 / F ADM Date: 09/29/24 Loc: [facility] Room: Type: [facility] Attending Dr: Rufina Rubio POLYMER TESTER-C Ordering Provider: Rufina Rubio Date of Service: 09/29/24 US/US biopsy RT 1st lesion guid: R92.8 ([id number]) MM/MM post biopsy RT w/CAD: CLIP PLACEMENT Copies to: Rufina Rubio ADDENDUM 1 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 No malignancy is identified. This is believed to be concordant. Follow-up ultrasound in 6 months could be cons idered. Impression dictated by: Dara Hardy M.D.10/03/2024 1:26 PM Dictation Location: [place] [address] Addendum Dictated By: MD Dara Hardy Addendum [...] Dara Hardy M.D.09/29/2024 11:50 AM Dictation Location: [facility] Tech: Funmilayo Cortez Transcribed By: JORGE 09/29/24 1150 Dictated By: Dara Hardy MD 09/29/24 1102 Signed By: 09/29/24 1150 Normal [facility] MM diagnostic mammo BI w/CAD on 09-22-2024 MM diagnostic mammo BI w/CAD [facility] [place] [address] [place] [address] Ultrasound Report Signed Patient: Archana Joy MR#: [id number] : 1975 Acct:[id number] Age/Sex: 48 / F ADM Date: 09/22/24 Loc: [place] Room: Type: [facility] Attending Dr: Rufina Rubio POLYMER TESTER-C Ordering Provider: Rufina Rubio Date of Service: 09/22/24 US/US breast BI limited: Breast lump in female;Breast cancer screening by mammogram ([id number]) MM/MM diagnostic mammo BI w/CAD: Breast lump [...] Ursula Kimball Jr..OGideon09/22/2024 10:15 AM Dictation Location: [facility] Tech: Zo [facility]; Shauna Woodall Transcribed By: JORGE 09/22/24 1015 Dictated By: Joe Gold Jr, DO 09/22/24 1000 Signed By: 09/22/24 1015 Normal [facility] US bladderon 09-20-2024 bladder [facility] [place] [address] Ultrasound Report Signed Patient: Archana Joy MR#: [id number] : 1975 Acct:[id number] Age/Sex: 48 / F ADM Date: 09/20/24 Loc: Room: Type: [facility] Attending Dr: Rufina Rubio POLYMER TESTER-C Ordering Provider: Rufina Rubio Date of Service: [...] 1348 Signed By: 09/20/24 1348 Normal [facility] US pelvic completeon 025 US pelvic complete [facility] [address] Ultrasound Report Signed Patient: Archana Joy MR#: [id number] : 1975 Acct:[id number] Age/Sex: 48 / F ADM Date: 09/20/24 Loc: Room: Type: [facility] Attending Dr: Rufina Rubio POLYMER TESTER-C Ordering Provider: Rufina Rubio Date of Service: 09/20/24 US/US pelvic complete: Recurrent UTI;Pelvic pain in female ([id number]) US/US transvaginal: PELIVIC PAIN IN FEMALE Copies [...] 09/20/24 1348 Signed By: 09/20/24 1350 Normal [facility] Urine Cultureon 08-04-2024 Bacteria identified Cx Nom (U) Reason for Exam Urinary frequency Urine ORGANISM: Escherichia coli (O:ESCCOL) [place] Count >100,000 ORGANISM: Klebsiella pneumoniae (O:KLEPNE) [place] Count 75,000 Aerobic [place] Charge (NMIC56) ---- [...] RESISTANT TO ALL B-LACTAM DRUGS. PERFORMED BY: [place] [address] PATHOLOGIST BOBBIN WASHER CHRISTINA SINCLAIR M.D. Normal [facility] Comment on above: Performed By: #### C UU #### [address] Urine cultureOrdered By: Arlin Rubio on 08-04-2024 Bacteria identified Cx Nom (U) Escherichia coli Abnormal [facility] Bacteria identified Cx Nom (U) Abnormal [facility] XR Shoulder - right 2 Viewso n 05-30-2024 Imaging Result: 3 views right shoulder, Grashey/Zanca/outlet, taken today and saved to the permanent medical record are reviewed. No fractures. [facility] Radiology Study observation (narrative) [facility] Main OR Intraoperative Recor don 05-22-2024 Main OR Intraoperative Record Main OR Intraoperative Record IntraOp Document Type FT Summary Primary Physician: Michael Henderson DO Finalized Date/Time: 05/22/24 09:22:47 Pt. Name: ARCHANA JOY/Sex: 1975 Female Med Rec #: [id number] Physician: Michael Henderson DO Financial #: [id number] Pt. Type: A Room/Bed: AS15 Admit/Disch: 05/19/24 [...] 2 Entry 3 Case Attendee Pancho HARKINS, QUALITY ASSURANCE SUPERVISOR FINAL, Queen Beatriz MILLER, Michael Tanner LINUX UNIX ENGINEER, Diane Swan Role Performed QUALITY ASSURANCE SUPERVISOR FINAL Surgeon - Primary LINUX UNIX ENGINEER/SA Time In 05/19/24 09:13:00 05/19/24 09:40:00 05/19/24 09:13:00 Time Out 05/19/24 10:41:00 05/19/24 10:30:00 05/19/24 10:41:00 Procedure SHOULDER ARTHROSCOPY W/ SHOULDER ARTHROSCOPY W/ SHOULDER ARTHROSCOPY W/ POSSIBLE REPAIR(Right) POSSIBLE REPAIR(Right) POSSIBLE REPAIR(Right) Comments DR. DONALD ATOMIC FUEL ASSEMBLER Last Modified By: Nitin Hernandez Ii, Alfons Ii F Letrondo, Alfons Ii F 05/19/24 10:47:50 05/19/24 10:48:01 05/19/24 10:47:50 Entry 4 Entry 5 Case Attendee Miesha Davis Alfons Ii F Role Performed Scrub - Primary Outpatient Coordinator - Primary Time In 05/19/24 09:13:00 05/19/24 09:13:00 Time Out 05/19/24 10:41:00 05/19/24 10:41:00 Procedure SHOULDER ARTHROSCOPY W/ SHOULDER ARTHROSCOPY W/ POSSIBLE REPAIR(Right) POSSIBLE REPAIR(Right) Comments Last Modified By: Nitin Hernandez Ii, Alfons Ii F 05/19/24 10:47:50 05/19/24 10:47:50 General Comments: CATRACHO GAO FROM [facility] IS IN ATTENDANCE. /QASIM EDGEreservation agent Protocols FT Pre-Care Text: Implements protective measures [...] and tissue Entry 1 Skin Integrity Intact, [place], Warm, & Skin Abnormality No Dry Outcomes Met? Yes Last Modified By: Mary Silverlaw Robertson F 05/19/24 10:01:30 Post-Care Text: The patient is free from signs and symptoms of injury caused by extraneous objects Patient Positioning FT Pre-Care Text: Identifies physical a (more content not included)... Normal [facility] Discharge Instructionson Discharge Instructions Discharge Instructions ARCHANA [...] EST Comments: Call for any problems. Where: [address] [place] [id number]- [employer] (1) Medications What How Much When Instructions Next Dose New acetaminophen-oxycodo ne (Percocet 5 mg-325 mg oral tablet) See instructions 1-2 tab(s) Oral q4hr Pickup at [facility] [id number] New docusate (Colace 100 mg Cap) 1 Capsules By Mouth 2 times a day as needed for for constipation Pickup at [facility] [id number] New gabapentin (gabapentin 300 mg Cap) 1 Capsules By Mouth 3 times a day Duration: 14 Days Pickup at [facility] [id number] Unchanged albuterol (albuterol 0.083% Inh Ana Lilia [...] Mouth 2 times a day Pharmacy Information [facility] [id number]: [address] [place], [place] [phone] Test Results No qualifying data available. Allergies [...] EYELET WITH #2 FIBERWIRE 05/19/2024 Education Materials [place], [place] [facility] AFTER YOUR SHOULDER ARTHROSCOPY [...] be c (more content not included)... Normal [facility] Comment on above: Result Comment: Elec tronically Signed By: Essie TRIPP, Henna Montalvo\.br\Date and Time Signed: 05/19/24 11:11 EST Inpatient Patient Summaryon 05-19-2024 Inpatient Patient Summary Inpatient Patient Summary [place] [id number] [facility] Clinical Discharge Instructions PERSON INFORMATION Name: ARCHANA JOY PHYSICIANS Admitting Physician: Michael Henderson DO Attending Physician: Michael Henderson DO PCP: Cande Hinds MD Discharge Diagnosis: Comment: PATIENT EDUCATION INFORMATION Instructions: Jessica Henderson - After Your Shoulder Arthroscopy (Custom) Medication Leaflets: Follow up: MEDICATION LIST New Medications [facility] [id number], [address], [place] [phone], [phone] acetaminophen-oxycodo ne (Percocet 5 mg-325 mg oral [...] Mouth 2 times a day. Comment: Normal [facility] Main OR PACU I Recordon 0 Main OR PACU I Record Main OR PACU I Rec ord PACU Phase I Document Type FT Summary Primary Physician: Michael Henderson DO Finalized Date/Time: 05/19/24 12:20:11 Pt. Name: ARCHANA JOY./Sex: 1975 Female Med Rec #: [id number] Physician: Michael Henderson DO Financial #: [id number] Pt. Type: A Room/Bed: [place] [address] Admit/Disch: 05/19/24 06:22:55 - Institution: Case Times [...] By: Birdie Bennett RN 05/19/24 12:20 Normal [facility] Main OR Preoperative Recordo n 05-19-2024 Main OR Preoperative Record Main OR Preoperative Record PreOp Document Type FT Summary Primary Physician: Michael Henderson DO Finalized Date/Time: 05/19/24 09:57:42 Pt. Name: ARCHANA JOY/Sex: 1975 Female Med Rec #: [id number] Physician: Michael Henderson DO Financial #: [id number] Pt. Type: A Room/Bed: [place] [address] Admit/Disch: 05/19/24 06:22:55 - Institution: Case Times [...] By: Nitin Hernandez Ii 05/19/24 09:57 Normal [facility] Operative Reporton Operative Report Operative Report Patient: ARCHANA JOY Age: 48 years Sex: Female : 1975 Associated Diagnoses: None Author: Michael Henderson DO DATE OF SURGERY: 05/19/2024 SURGEON: Michael Henderson D.O. CLASS C TRUCK DRIVER: Diane Tanner CFA PREOPERATIVE DIAGNOSIS: Rotator cuff [...] anchor OPERATIVE INDICATIONS: Archana is a 48-year-old mrklh-vmwe-geytoqnc female who has a history of right [...] placed. Bursectomy was carried out with the Randolph wand and shaver. The Prolene suture was [...] the great (more content not included)... Normal [facility] Comment on above: Result Comment: Elec tronically Signed By: Michael Henderson DO\.br\Date and Time Signed: 05/19/24 11:07 EST Outpatient Surgery Discharge Instructionon 05-19-2024 Outpatient Surgery Discharge Instruction Outpatient Surgery Discharge Instruction [place] [address] Patient Discharge Instructions PERSON INFORMATION Name: TODDBLAS [...] to serve you. Thank you for choosing [facility] HERE ARE THE MEDICATION CHANGES THAT OCCURRED DURING YOUR HOSPITAL STAY New Medications [facility] [id number], [address], [place] [phone], [phone] acetaminophen-oxycodo ne (Percocet 5 mg-325 mg oral [...] times a day. PATIENT EDUCATION INFORMATION Instructions: [place], [place] [facility] AFTER YOUR SHOULDER ARTHROSCOPY [...] The br (more content not included)... Normal [facility] Proceduralon 05-19-2024 Procedural Procedural Patient: ARCHANA JOY [...] Using maximal sterile barrier technique per current [facility] guidelines including hand hygeine, Guidance (Ultrasound used [...] Pancho CRNA under Dr Donald's supervision.. Normal [facility] XR Chest 2 Viewson 4 XR Chest [...] mGy = na DAP = na Normal [facility] BMPon 05-04-2024 Anion gap [Moles/Vol] 9 mmol/L Normal 6-16 [facility] Comment on above: Performed By: #### 2 [id number] #### [facility] [address] [place] [address] Calcium [Mass/Vol] 9.3 mg/dL Normal 8.9-11.1 [facility] Comment on above: Performed By: #### 2 [id number] #### [facility] [address] [place] [address] Chloride [Moles/Vol] 103 mmol/L Normal 101-111 [facility] Comment on above: Performed By: #### 2 [id number] #### [facility] [address] [place] [address] CO2 [Moles/Vol] 28 mmol/L Normal 21-31 [facility] Comment on above: Performed By: #### 2 [id number] #### [facility] [address] [place] [address] Creatinine [Mass/Vol] 0.6 mg/dL Normal 0.5-1.3 [facility] Comment on above: Performed By: #### 2 [id number] #### [facility] [address] [place] [address] Glucose [Mass/Vol] 97 mg/dL Normal 55-199 [facility] Comment on above: Performed By: #### 2 [id number] #### [facility] [address] [place] [address] Potassium [Moles/Vol] 3.6 mmol/L Normal 3.5-5.3 [facility] Comment on above: Performed By: #### 2 [id number] #### [facility] [address] [place] [address] Sodium [Moles/Vol] 136 mmol/L Normal 135-145 [facility] Comment on above: Performed By: #### 2 [id number] #### [facility] [address] [place] [address] Urea nitrogen [Mass/Vol] 9 mg/dL Normal 5-21 [facility] Comment on above: Performed By: #### 2 [id number] #### [facility] [address] [place] [address] Urea nitrogen/Creatinine [Mass ratio] 15 No Units Normal 10-20 [facility] Comment on above: Performed By: #### 2 [id number] #### [facility] [address] [place] [address] CBC w/ Auto Diffon 4 Basophils/100 WBC (Bld) 0.7 % Normal 0.0-2.0 [facility] Comment on above: Performed By: #### 2 [id number] #### [facility] [address] [place] [address] Basophils/Leukocytes Auto (Bld) [Pure # fraction] 0.1 E9/L Normal 0.0-0.2 [facility] Comment on above: Performed By: #### 2 [id number] #### [facility] [address] [place] [address] Eosinophils (Bld) [#/Vol] 0.1 E9/L Normal 0.0-0.5 [facility] Comment on above: Performed By: #### 2 [id number] #### [facility] [address] [place] [address] Eosinophils/100 WBC (Bld) 1.1 % Normal 0.0-8.0 [facility] Comment on above: Performed By: #### 2 [id number] #### [facility] [address] [place] [address] Erythrocyte distribution width (RBC) [Ratio] 13.4 % Normal 10.9-14.2 [facility] Comment on above: Performed By: #### 2 [id number] #### [facility] [address] [place] [address] Hematocrit (Bld) [Volume fraction] 41.2 % Normal 34.0-46.0 [facility] Comment on above: Performed By: #### 2 [id number] #### [facility] [address] [place] [address] Hemoglobin (Bld) [Mass/Vol] 14.2 g/dL Normal 12.0-16.0 [facility] Comment on above: Performed By: #### 2 [id number] #### [facility] [address] [place] [address] Lymphocytes (Bld) [#/Vol] 2.9 E9/L Normal 1.0-4.0 [facility] Comment on above: Performed By: #### 2 [id number] #### [facility] [address] [place] [address] Lymphocytes/100 WBC (Bld) 36.1 % Normal 14.0-50.0 [facility] Comment on above: Performed By: #### 2 [id number] #### [facility] [address] [place] [address] MCH (RBC) [Entitic mass] 31.7 pg Normal 27.0-34.0 [facility] Comment on above: Performed By: #### 2 [id number] #### [facility] [address] [place] [address] MCHC (RBC) [Mass/Vol] 34.4 g/dL Normal 31.4-36.0 [facility] Comment on above: Performed By: #### 2 [id number] #### [facility] [address] [place] [address] MCV (RBC) [Entitic vol] 92.2 fL Normal 80.0-100.0 [facility] Comment on above: Performed By: #### 2 [id number] #### [facility] [address] [place] [address] Monocytes (Bld) [#/Vol] 0.6 E9/L Normal 0.2-1.0 [facility] Comment on above: Performed By: #### 2 [id number] #### [facility] [address] [place] [address] Neutrophils (Bld) [#/Vol] 4.4 E9/L Normal 2.0-7.5 [facility] Comment on above: Performed By: #### 2 [id number] #### [facility] [address] [place] [address] Neutrophils/100 WBC (Bld) 55.2 % Normal 36.0-75.0 [facility] Comment on above: Performed By: #### 2 [id number] #### [facility] [address] [place] [address] Platelet mean volume (Bld) [Entitic vol] 9.3 fL Normal 6.4-10.8 [facility] Comment on above: Performed By: #### 2 [id number] #### [facility] [address] [place] [address] Platelets (Bld) [#/Vol] 207.0 E9/L Normal 150.0-500.0 [facility] Comment on above: Performed By: #### 2 [id number] #### [facility] [address] [place] [address] RBC (Bld) [#/Vol] 4.5 E12/L Normal 4.3-5.9 [facility] Comment on above: Performed By: #### 2 [id number] #### [facility] [address] [place] [address] WBC corrected for nucl RBC Auto (Bld) [#/Vol] 8.0 E9/L Normal 4.0-11.0 [facility] Comment on above: Performed By: #### 2 [id number] #### [facility] [address] [place] [address] CHEMISTRYOrdered By: SYSTEM SYSTEM on 05-04-2024 Anion [...] 05-04-2024 eGFR 112 mL/min/1.73 m2 Normal >=59 [facility] Comment on above: Performed By: #### 1 [id number] ####[facility] [id number] [place] [address] MR SHOULDER RIGHT WO IV CONT [facility] 04-03-2024 MR SHOULDER RIGHT WO [...] IGP, Age Gdln Note Normal . [facility] Comment on above: Result Comment: TEST S RESULT FLAG UNITS REF RANGE LAB Clinician Provided Cytology Information No. of containers..01 ThinPrep Vial Age Algo ACOG Judi... 30-65 01 FLAG LEGEND: L-Low Normal,H-High Normal,LL-Alert Low,HH-Alert High <-Panic Low,>-Panic High,A-Abnormal,AA-Critical Abnormal Performed at: 01 =G [address] [address] Adriane Sherman MD, Performed By: #### P AP [id number], VAGINITIS+ #### [facility] , PAP HPV HR Negative Normal Negative [facility] Comment on above: Result Comment: This nucleic acid amplification test detects fourteen high- risk HPV types (16,18,31,33,35,39,45,51,52,56,58,59,66,68) without differentiation. Performed at: = - [facility] [address] [id number] Tafe Lecturer: Adriane Sherman MD, Phone: [phone] Performed at: - [facility] [id number] Tafe Lecturer: Adriane Sherman MD, Phone: [phone] PERFORMED BY: [address] [place] [address] PATHOLOGIST BOBBIN WASHER MARINE WARD M.D. Performed By: #### P AP [id number], VAGINITIS+ #### [facility] , Pap Image Guided Note Normal . [facility] Comment on above: Result Comment: TEST S RESULT FLAG UNITS REF RANGE LAB DIAGNOSIS: 02 NEGATIVE FOR INTRAEPITHELIAL LESION OR MALIGNANCY. CELLULAR CHANGES ASSOCIATED WITH INFLAMMATION ARE PRESENT. Specimen adequacy: 02 Satisfactory for evaluation. No endocervical component is identified. Performed by: 02 Katy Champagne, Vinyl Flooring Installer (ASCP) . 02 Note: Note 02 The [...] <-Panic Low,>-Panic High,A-Abnormal,AA-Critical Abnormal Performed at: [address] [address] Adriane Sherman MD, Performed By: #### P AP [id number], VAGINITIS+ #### [facility] , Vaginitis Plus (VG+)on 02-01 Atopobium Vaginae High - 2 Critically abnormal . [facility] Comment on above: Order Comment: SOURC E OF SPECIMEN: APTIMA Result Comment: This test was developed and its performance characteristics determined by [facility]. It has not been cleared or approved by the Food and Drug Administration. Performed By: #### P AP [id number], VAGINITIS+ #### [facility] , BVAB2 High - 2 Critically abnormal . [facility] Comment on above: Order Comment: SOURC E OF SPECIMEN: APTIMA Result Comment: This test was developed and its performance characteristics determined by [facility]. It has not been cleared or approved by the Food and Drug Administration. Performed By: #### P AP [id number], VAGINITIS+ #### [facility] , Yuki Albicans, MICHAEL Negative Normal Negative [facility] Comment on above: Order Comment: SOURC E OF SPECIMEN: APTIMA Result Comment: This test was developed and its performance characteristics determined by [facility]. It has not been cleared or approved by the Food and Drug Administration. Performed By: #### P AP [id number], VAGINITIS+ #### [facility] , Yuki Glabrata, MICHAEL Negative Normal Negative [facility] Comment on above: Order Comment: SOURC E OF SPECIMEN: APTIMA Result Comment: This test was developed and its performance characteristics determined by [facility]. It has not been cleared or approved by the Food and Drug Administration. PERFORMED BY: [place] [address] [place] [address] PATHOLOGIST BOBBIN WASHER MARINE WARD M.D. Performed By: #### P AP [id number], VAGINITIS+ #### [facility] , Chlamydia Trachomotis, MICHAEL Negative Normal Negative [facility] Comment on above: Order Comment: SOURC E OF SPECIMEN: APTIMA Performed By: #### P AP [id number], VAGINITIS+ #### [facility] , Megasphaera High - 2 Critically abnormal . [facility] Comment on above: Order Comment: [...] of BV. Performed By: #### P AP [id number], VAGINITIS+ #### [facility] , Neisseria Gonorrhoeae, MICHAEL Negative Normal Negative [facility] Comment on above: Order Comment: SOURC E OF SPECIMEN: APTIMA Result Comment: Perf ormed at: =G - [facility] [address] [place] [id number] Tafe Lecturer: Adriane Sherman MD, Phone: [phone] Performed By: #### P AP [id number], VAGINITIS+ #### [facility] , Tric Vag MICHAEL Negative Normal Negative [facility] Comment on above: Order Comment: SOURC E OF SPECIMEN: APTIMA Performed By: #### P AP [id number], VAGINITIS+ #### [facility] , Alanine aminotransferase [En zymatic activity/volume] in Serum or PlasmaOrdered By: Rufina Rubio on 09-28-2023 ALT [Catalytic activity/Vol] 7 U/L 7-52 [facility] Albumin [Mass/volume] in Ser um or Plasma by Bromocresol green (BCG) dye binding methoOrdered By: Rufina Rubio on 09-28-2023 Albumin BCG dye [Mass/Vol] 4.9 g/dL 3.5-5.7 [facility] Alkaline phosphatase [Enzyma tic activity/volume] in Serum or PlasmaOrdered By: Rufina Rubio on 09-28-2023 ALP [Catalytic activity/Vol] 100 U/L 34-104 [facility] Aspartate aminotransferase [ Enzymatic activity/volume] in Serum or PlasmaOrdered By: Rufina Rubio on 09-28-2023 AST [Catalytic activity/Vol] 11 U/L 13-39 [facility] Bilirubin.total [Mass/volume ] in Serum or PlasmaOrdered By: Rufina Rubio on 09-28-2023 Bilirubin [Mass/Vol] 0.3 mg/dL 0.3-1.0 [facility] Calcium [Mass/volume] in Ser um or PlasmaOrdered By: Rufina Rubio on 09-28-2023 Calcium [Mass/Vol] 9.7 mg/dL 8.6-10.3 [facility] Carbon dioxide, total [Moles /volume] in Serum or PlasmaOrdered By: Rufina Rubio on 09-28-2023 CO2 [Moles/Vol] 29.3 mmol/L 21.0-31.0 [facility] Chloride [Moles/volume] in S siddhartha or PlasmaOrdered By: Rufina Rubio on 09-28-2023 Chloride [Moles/Vol] 107 mmol/L 98-107 [facility] Creatinine [Mass/volume] in Serum or PlasmaOrdered By: Rufina Rubio on 03-19-2024 Creatinine [Mass/Vol] 0.60 mg/dL 0.60-1.20 [facility] Ferritin [Mass/volume] in Se rum or PlasmaOrdered By: Rufina Rubio on 09-28-2023 Ferritin [Mass/Vol] 72.4 ng/mL 11.0-306.8 [facility] Folate [Mass/volume] in Seru m or PlasmaOrdered By: Rufina Rubio on 09-28-2023 Folate [Mass/Vol] 6.3 ng/mL >5.9 [facility] Comment on above: Folate reference ran ge: >5.9 ng/mlThe WHO technical consultation on folate and vitamin [id number] has determined that folate concentrations lessthan 4 ng/ml are considered deficient. Globulin Calc (S) [Mass/Vol] Ordered By: Rufina Rubio on 09-28-2023 Globulin (S) [Mass/Vol] 2.2 g/dL [facility] Glucose [Mass/volume] in Ser um or PlasmaOrdered By: Rufina Rubio on 09-28-2023 Glucose [Mass/Vol] 90 mg/dL 70-100 [facility] Comment on above: ADA recommended refe rence rangeRandom Glucose Reference Range is dependent on time and content of last meal. Glucose of more than 200 mg/dL in a nonstressed, ambulatory subject supports the diagnosis of Diabetes Mellitus. Iron [Mass/volume] in Serum or PlasmaOrdered By: Rufina Rubio on 09-28-2023 Iron [Mass/Vol] 92 ug/dL 50-212 [facility] Iron binding capacity [Mass/ volume] in Serum or PlasmaOrdered By: Rufina Rubio on 09-28-2023 Iron binding capacity [Mass/Vol] 323 ug/dL 255-450 [facility] Iron saturation [Mass Fracti on] in Serum or PlasmaOrdered By: Rufina Rubio on 09-28-2023 Iron saturation [Mass fraction] 28.5 % 20-50 [facility] No Panel InformationOrdered By: Rufina Rubio on 09-28-2023 Estimated GFR (CKD-EPI) > 60.0 mL/Min [facility] Creatinine Clearance (Chem N/A [facility] Potassium [Moles/volume] in Serum or PlasmaOrdered By: Rufina Rubio on 09-28-2023 Potassium [Moles/Vol] 3.9 mmol/L 3.5-5.1 [facility] Protein [Mass/volume] in Ser um or PlasmaOrdered By: Rufina Rubio on 09-28-2023 Protein [Mass/Vol] 7.1 g/dL 6.4-8.9 [facility] Serum or plasma albumin/glob ulin mass ratioOrdered By: Rufina Rubio on 09-28-2023 Albumin/Globulin [Mass ratio] 2.2 {ratio} [facility] Serum or plasma anion gap de terminationOrdered By: Rufina Rubio on 09-28-2023 Anion gap [Moles/Vol] 8.6 mmol/L 6.0-15.0 [facility] Sodium [Moles/volume] in Ser um or PlasmaOrdered By: Rufina Rubio on 09-28-2023 Sodium [Moles/Vol] 141 mmol/L 136-145 [facility] Thyrotropin [Units/volume] i n Serum or PlasmaOrdered By: Rufina Rubio on 09-28-2023 TSH Qn 2.58 m[IU]/L 0.45-5.33 [facility] Thyroxine (T4) free [Mass/vo lume] in Serum or PlasmaOrdered By: Rufina Rubio on 09-28-2023 Free T4 [Mass/Vol] 0.86 ng/dL 0.61-1.12 [facility] Transferrin [Mass/volume] in Serum or PlasmaOrdered By: Rufina Rubio on 09-28-2023 Transferrin [Mass/Vol] 231 mg/dL 203-362 [facility] Urea nitrogen [Mass/volume] in Serum or PlasmaOrdered By: Rufina Rubio on 09-28-2023 Urea nitrogen [Mass/Vol] 10 mg/dL 7-25 [facility] Vitamin B12 ser/plasOrdered By: Rufina Rubio on 09-28-2023 Cobalamin (Vitamin B12) [Mass/Vol] 6683 pg/mL 180-914 [facility] Aerobic cultureOrdered By: Kingsley Galeana on 05-26-2023 Bacteria identified Aer cx Nom (Unsp spec) 2 Days [facility] Alanine aminotransferase [En zymatic activity/volume] in Serum or PlasmaOrdered By: Rufina Rubio on 03-19-2023 ALT [Catalytic activity/Vol] 7 U/L 7-52 [facility] Albumin [Mass/volume] in Ser um or Plasma by Bromocresol green (BCG) dye binding methoOrdered By: Rufina Rubio on 03-19-2023 Albumin BCG dye [Mass/Vol] 4.3 g/dL 3.5-5.7 [facility] Alkaline phosphatase [Enzyma tic activity/volume] in Serum or PlasmaOrdered By: Rufina Rubio on 03-19-2023 ALP [Catalytic activity/Vol] 100 U/L 34-104 [facility] Aspartate aminotransferase [ Enzymatic activity/volume] in Serum or PlasmaOrdered By: Rufina Rubio on 03-19-2023 AST [Catalytic activity/Vol] 10 U/L 13-39 [facility] Basophils Auto (Bld) [#/Vol] Ordered By: Rufina Rubio on 03-19-2023 Basophils (Bld) [#/Vol] 0.0 10*3/uL 0.0-0.2 [facility] Basophils/100 WBC Auto (Bld) Ordered By: Rufina Rubio on 03-19-2023 Basophils/100 WBC (Bld) 0.4 % . [facility] Bilirubin.total [Mass/volume ] in Serum or PlasmaOrdered By: Rufina Rubio on 03-19-2023 Bilirubin [Mass/Vol] 0.3 mg/dL 0.3-1.0 [facility] Calcium [Mass/volume] in Ser um or PlasmaOrdered By: Rufina Rubio on 03-19-2023 Calcium [Mass/Vol] 9.6 mg/dL 8.6-10.3 [facility] Carbon dioxide, total [Moles /volume] in Serum or PlasmaOrdered By: Rufina Rubio on 03-19-2023 CO2 [Moles/Vol] 29.4 mmol/L 21.0-31.0 [facility] Chloride [Moles/volume] in S siddhartha or PlasmaOrdered By: Rufina Rubio on 03-19-2023 Chloride [Moles/Vol] 108 mmol/L 98-107 [facility] Cholesterol [Mass/volume] in Serum or PlasmaOrdered By: Rufina Rubio on 03-19-2023 Cholesterol [Mass/Vol] 164 mg/dL 140-200 [facility] Comment on above: Chol less than 200 m g/dl low riskChol 201-239 mg/dl borderline riskChol 240 mg/dl and greater high risk Cholesterol in LDL Calc [Mas s/Vol]Ordered By: Rufina Rubio on 03-19-2023 Cholesterol in LDL [Mass/Vol] 84 mg/dL 0-100 [facility] Comment on above: LDL ATP III CLASSIFI CATIONLDL less than 100 mg/dL OptimalLDL 100-129 mg/dL Near or above optimalLDL 130-159 mg/dL Borderline highLDL 160-189 mg/dL HighLDL greater than 189 mg/dL Very high Cholesterol in VLDL Calc [Ma ss/Vol]Ordered By: Rufina Rubio on 03-19-2023 Cholesterol in VLDL [Mass/Vol] 19 mg/dL [facility] Creatinine [Mass/volume] in Serum or PlasmaOrdered By: Rufina Rubio on 03-19-2023 Creatinine [Mass/Vol] 0.74 mg/dL 0.60-1.20 [facility] Eosinophils Auto (Bld) [#/Vo l]Ordered By: Rufina Rubio on 03-19-2023 Eosinophils (Bld) [#/Vol] 0.1 10*3/uL 0.0-0.45 [facility] Eosinophils/100 WBC Auto (Bl d)Ordered By: Rufina Rubio on 03-19-2023 Eosinophils/100 WBC (Bld) 1.5 % . [facility] Erythrocyte distribution wid th Auto (RBC) [Ratio]Ordered By: Rufina Rubio on 03-19-2023 Erythrocyte distribution width (RBC) [Ratio] 13.7 % 11.9-15.3 [facility] Ferritin [Mass/volume] in Se rum or PlasmaOrdered By: Rufina Rubio on 03-19-2023 Ferritin [Mass/Vol] 58.3 ng/mL 11.0-306.8 [facility] Folate [Mass/volume] in Seru m or PlasmaOrdered By: Rufina Rubio on 03-19-2023 Folate [Mass/Vol] 5.7 ng/mL >5.9 [facility] Comment on above: Folate reference ran ge: >5.9 ng/mlThe WHO technical consultation on folate and vitamin [id number] has determined that folate concentrations lessthan 4 ng/ml are considered deficient. Globulin Calc (S) [Mass/Vol] Ordered By: Rufina Rubio on 03-19-2023 Globulin (S) [Mass/Vol] 2.1 g/dL [facility] Glucose [Mass/volume] in Ser um or PlasmaOrdered By: Rufina Rubio on 03-19-2023 Glucose [Mass/Vol] 94 mg/dL 70-100 [facility] Comment on above: ADA recommended refe rence rangeRandom Glucose Reference Range is dependent on time and content of last meal. Glucose of more than 200 mg/dL in a nonstressed, ambulatory subject supports the diagnosis of Diabetes Mellitus. Hematocrit Auto (Bld) [Volum e fraction]Ordered By: Rufina Rubio on 03-19-2023 Hematocrit (Bld) [Volume fraction] 39.9 % 34.0-46.4 [facility] Hemoglobin [Mass/volume] in BloodOrdered By: Rufina Rubio on 03-19-2023 Hemoglobin (Bld) [Mass/Vol] 13.3 g/dL 11.8-15.4 [facility] Iron [Mass/volume] in Serum or PlasmaOrdered By: Rufina Rubio on 03-19-2023 Iron [Mass/Vol] 68 ug/dL 50-212 [facility] Iron binding capacity [Mass/ volume] in Serum or PlasmaOrdered By: Rufina Rubio on 03-19-2023 Iron binding capacity [Mass/Vol] 305 ug/dL 255-450 [facility] Iron saturation [Mass Fracti on] in Serum or PlasmaOrdered By: Rufina Rubio on 03-19-2023 Iron saturation [Mass fraction] 22.3 % 20-50 [facility] Leukocytes [#/volume] correc zakia for nucleated erythrocytes in Blood by Automated counOrdered By: Rufina Rubio on 03-19-2023 WBC corrected for nucl RBC Auto (Bld) [#/Vol] 9.6 10*3/uL 3.8-11.6 [facility] Lymphocytes Auto (Bld) [#/Vo l]Ordered By: Rufina Rubio on 03-19-2023 Lymphocytes (Bld) [#/Vol] 2.4 10*3/uL 1.00-4.8 [facility] Lymphocytes/100 WBC Auto (Bl d)Ordered By: Rufina Rubio on 03-19-2023 Lymphocytes/100 WBC (Bld) 25.6 % . [facility] MCH Auto (RBC) [Entitic mass ]Ordered By: Rufina Rubio on 03-19-2023 MCH (RBC) [Entitic mass] 30.3 pg 24.7-34.3 [facility] MCHC Auto (RBC) [Mass/Vol]Or dered By: Rufina Rubio on 03-19-2023 MCHC (RBC) [Mass/Vol] 33.3 g/dL 32.0-35.0 [facility] MCV Auto (RBC) [Entitic vol] Ordered By: Rufina Rubio on 03-19-2023 MCV (RBC) [Entitic vol] 91.1 fL 80-100 [facility] Monocytes Auto (Bld) [#/Vol] Ordered By: Rufina Rubio on 03-19-2023 Monocytes (Bld) [#/Vol] 0.7 10*3/uL 0.0-0.8 [facility] Monocytes/100 WBC Auto (Bld) Ordered By: Rufina Rubio on 03-19-2023 Monocytes/100 WBC (Bld) 7.1 % . [facility] Neutrophils Auto (Bld) [#/Vo l]Ordered By: Rufina Rubio on 03-19-2023 Neutrophils (Bld) [#/Vol] 6.2 10*3/uL 1.8-7.7 [facility] Neutrophils/100 WBC Auto (Bl d)Ordered By: Rufina Rubio on 03-19-2023 Neutrophils/100 WBC (Bld) 65.4 % . [facility] No Panel InformationOrdered By: Rufina Rubio on 03-19-2023 Estimated GFR (CKD-EPI) > 60.0 mL/Min [facility] Creatinine Clearance (Chem N/A [facility] Nucleated erythrocytes [Pres ence] in Blood by Automated countOrdered By: Rufina Rubio on 03-19-2023 Nucleated RBC Auto Ql (Bld) 0.2 /100{WBC} 0-0.5 [facility] Platelet mean volume Auto (B ld) [Entitic vol]Ordered By: Rufina Rubio on 03-19-2023 Platelet mean volume (Bld) [Entitic vol] 10.4 fL 6.3-10.7 [facility] Platelets Auto (Bld) [#/Vol] Ordered By: Rufina Rubio on 03-19-2023 Platelets (Bld) [#/Vol] 179 10*3/uL 150-450 [facility] Potassium [Moles/volume] in Serum or PlasmaOrdered By: Rufina Rubio on 03-19-2023 Potassium [Moles/Vol] 4.6 mmol/L 3.5-5.1 [facility] Protein [Mass/volume] in Ser um or PlasmaOrdered By: Rufina Rubio on 03-19-2023 Protein [Mass/Vol] 6.4 g/dL 6.4-8.9 [facility] RBC Auto (Bld) [#/Vol]Ordere d By: Rufina Rubio on 03-19-2023 RBC (Bld) [#/Vol] 4.38 10*6/uL 3.60-5.00 [facility] Serum or plasma albumin/glob ulin mass ratioOrdered By: Rufina Rubio on 03-19-2023 Albumin/Globulin [Mass ratio] 2.0 {ratio} [facility] Serum or plasma anion gap de terminationOrdered By: Rufina Rubio on 03-19-2023 Anion gap [Moles/Vol] 6.2 mmol/L 6.0-15.0 [facility] Serum or plasma high density lipoprotein (HDL) cholesterol measurementOrdered By: Rufina Rubio on 03-19-2023 Cholesterol in HDL [Mass/Vol] 60 mg/dL 23-92 [facility] Comment on above: HDL CHOL ATP-III CLA SSIFICATION Cardiovascular RiskHDL > or equal to 60 mg/dL LOWHDL < 40 mg/dL HIGH Serum or plasma total choles terol/high density lipoprotein (HDL) cholesterol mass ratOrdered By: Rufina Rubio on 03-19-2023 Cholesterol.total/Katie sterol in HDL [Mass ratio] 2.7 {ratio} <5.0 [facility] Sodium [Moles/volume] in Ser um or PlasmaOrdered By: Rufina Rubio on 03-19-2023 Sodium [Moles/Vol] 139 mmol/L 136-145 [facility] Thyrotropin [Units/volume] i n Serum or PlasmaOrdered By: Rufina Rubio on 03-19-2023 TSH Qn 1.95 m[IU]/L 0.45-5.33 [facility] Thyroxine (T4) free [Mass/vo lume] in Serum or PlasmaOrdered By: Rufina Rubio on 03-19-2023 Free T4 [Mass/Vol] 0.70 ng/dL 0.61-1.12 [facility] Transferrin [Mass/volume] in Serum or PlasmaOrdered By: Rufina Rubio on 03-19-2023 Transferrin [Mass/Vol] 218 mg/dL 203-362 [facility] Triglyceride [Mass/volume] i n Serum or PlasmaOrdered By: Rufina Rubio on 03-19-2023 Triglyceride [Mass/Vol] 99 mg/dL 0-149 [facility] Comment on above: TRIG ATP III CLASSIF ICATIONTRIG less than 150 mg/dL NormalTRIG 150-199 mg/dL Borderline highTRIG 200-500 mg/dL High TRIG greater than 500 mg/dL Very highStandard traceable to the Center for Disease Conrtrol and Prevention (CDC) test method. Urea nitrogen [Mass/volume] in Serum or PlasmaOrdered By: Rufina Rubio on 03-19-2023 Urea nitrogen [Mass/Vol] 7 mg/dL 7-25 [facility] Vitamin B12 ser/plasOrdered By: Rufina Rubio on 03-19-2023 Cobalamin (Vitamin B12) [Mass/Vol] 641 pg/mL 180-914 [facility] WBC Auto (Bld) [#/Vol]Ordere d By: Rufina Rubio on 03-19-2023 WBC (Bld) [#/Vol] 9.6 10*3/uL 3.8-11.6 [facility] Vitamin B12 ser/plasOrdered By: Rufina Rubio on 11-16-2022 Cobalamin (Vitamin B12) [Mass/Vol] 363 pg/mL 180-914 [facility] Vitamin B12 ser/plasOrdered By: Rufina Rubio on 09-21-2022 Cobalamin (Vitamin B12) [Mass/Vol] 548 pg/mL 180-914 [facility] Urine culture routineOrdered By: Rufina Rubio on 08-31-2022 Bacteria identified Cx Nom (U) Escherichia coli [facility] Basophils Auto (Bld) [#/Vol] Ordered By: Salvador Maier on 07-22-2022 Basophils (Bld) [#/Vol] 0.1 10*3/uL 0.0-0.2 [facility] Basophils/100 WBC Auto (Bld) Ordered By: Salvador Maier on 07-22-2022 Basophils/100 WBC (Bld) 1.0 % . [facility] Bilirubin Test strip Ql (U)O rdered By: Salvador Maier on 07-22-2022 Bilirubin Ql (U) Negative Negative [facility] Body fluid albumin measureme nt (mass/volume)Ordered By: Salvador Maier on 07-22-2022 Albumin (Body fld) [Mass/Vol] 3.9 g/dL 3.2-5.5 [facility] Color Auto (U)Ordered By: Nguyễn Maier on 07-22-2022 Color (U) Yellow Yellow [facility] Creatinine and Glomerular fi ltration rate.predicted panel (S/P/Bld)Ordered By: Salvador Maier on 07-22-2022 Creatinine [Mass/Vol] 0.68 mg/dL 0.44-1.03 [facility] Eosinophils Auto (Bld) [#/Vo l]Ordered By: Salvador Maier on 07-22-2022 Eosinophils (Bld) [#/Vol] 0.4 10*3/uL 0.0-0.45 [facility] Eosinophils/100 WBC Auto (Bl d)Ordered By: Salvador Maier on 07-22-2022 Eosinophils/100 WBC (Bld) 4.1 % . [facility] Erythrocyte distribution wid th Auto (RBC) [Ratio]Ordered By: Salvador Maier on 07-22-2022 Erythrocyte distribution width (RBC) [Ratio] 14.7 % 11.9-15.3 [facility] [facility] Estimated glomerular filtrat ion rate (GFR) non- AmericanOrdered By: Salvador Maier on 07-22-2022 GFR/1.73 sq M.predicted among non-blacks MDRD (S/P/Bld) [Vol rate/Area] > 60 mL/Min [facility] Globulin Calc (S) [Mass/Vol] Ordered By: Salvador Maier on 07-22-2022 Globulin (S) [Mass/Vol] 2.5 g/dL F [facility] HCG ( test) IA.rapi d Ql (U)Ordered By: Salvador Maier on 07-22-2022 HCG ( test) Ql (U) Negative [facility] Hematocrit Auto (Bld) [Volum e fraction]Ordered By: Salvador Maier on 07-22-2022 Hematocrit (Bld) [Volume fraction] 40.9 % 34.0-46.4 [facility] Hemoglobin [Mass/volume] in BloodOrdered By: Salvador Maier on 07-22-2022 Hemoglobin (Bld) [Mass/Vol] 13.3 g/dL 11.8-15.4 [facility] Ketones Auto test strip (U) [Mass/Vol]Ordered By: Salvador Maier on 07-22-2022 Ketones (U) [Mass/Vol] Negative [facility] - Chemistry and C hemistry - challengeOrdered By: Salvador Maier on 07-22-2022 Lipase [Catalytic activity/Vol] 70.0 U/L 22-51 [facility] Leukocytes [#/volume] correc zakia for nucleated erythrocytes in Blood by Automated counOrdered By: Salvador Maier on 07-22-2022 WBC corrected for nucl RBC Auto (Bld) [#/Vol] 8.8 10*3/uL 3.8-11.6 [facility] Lymphocytes Auto (Bld) [#/Vo l]Ordered By: Salvador Maier on 07-22-2022 Lymphocytes (Bld) [#/Vol] 3.1 10*3/uL 1.00-4.8 [facility] Lymphocytes/100 WBC Auto (Bl d)Ordered By: Salvador Maier on 07-22-2022 Lymphocytes/100 WBC (Bld) 35.0 % . [facility] MCH Auto (RBC) [Entitic mass ]Ordered By: Salvador Maier on 07-22-2022 MCH (RBC) [Entitic mass] 30.2 pg 24.7-34.3 [facility] MCHC Auto (RBC) [Mass/Vol]Or dered By: Salvador Maier on 07-22-2022 MCHC (RBC) [Mass/Vol] 32.6 g/dL 32.0-35.0 Fir [facility] MCV Auto (RBC) [Entitic vol] Ordered By: Salvador Maier on 07-22-2022 MCV (RBC) [Entitic vol] 92.6 fL 80-100 F [facility] Monocyte distribution width [Entitic volume] in Blood by AutomatedOrdered By: Salvador Maier on 07-22-2022 Monocyte distribution width Auto (Bld) [Entitic vol] 20.62 % 0.00-20.00 [facility] Comment on above: For adults in ED, MD W > 20.0 may be associated with a higher risk of sepsis during the first 12 hrs of hospital admission Monocytes Auto (Bld) [#/Vol] Ordered By: Salvador Maier on 07-22-2022 Monocytes (Bld) [#/Vol] 0.6 10*3/uL 0.0-0.8 [facility] Monocytes/100 WBC Auto (Bld) Ordered By: Salvador Maier on 07-22-2022 Monocytes/100 WBC (Bld) 7.1 % . F [facility] Neutrophils Auto (Bld) [#/Vo l]Ordered By: Salvador Maier on 07-22-2022 Neutrophils (Bld) [#/Vol] 4.6 10*3/uL 1.8-7.7 [facility] Neutrophils/100 WBC Auto (Bl d)Ordered By: Salvador Maier on 07-22-2022 Neutrophils/100 WBC (Bld) 52.8 % . [facility] Nitrite Test strip Ql (U)Ord ered By: Salvador Maier on 07-22-2022 Nitrite Ql (U) Negative Negative [facility] No Panel InformationOrdered By: Salvador Maier on 07-22-2022 Estimated GFR () > 60 mL/Min [facility] Comment on above: GFR estimated refere nce range: According to KDOQI guidelines, <60 ml/min/1.73m2 is sufficient to diagnose a patient with chronic kidney disease. Pharmacy Creatinine Clearance (Chem 90.47 [facility] Nucleated erythrocytes [Pres ence] in Blood by Automated countOrdered By: Salvador Maier on 07-22-2022 Nucleated RBC Auto Ql (Bld) 0.2 /100{WBC} 0-0.5 [facility] Platelet mean volume Auto (B ld) [Entitic vol]Ordered By: Salvador Maier on 07-22-2022 Platelet mean volume (Bld) [Entitic vol] 9.1 fL 6.3-10.7 [facility] Platelets Auto (Bld) [#/Vol] Ordered By: Salvador Maier on 07-22-2022 Platelets (Bld) [#/Vol] 202 10*3/uL 150-450 [facility] Protein Auto test strip (U) [Mass/Vol]Ordered By: Salvador Maier on 07-22-2022 Protein (U) [Mass/Vol] Negative Negative [facility] Protein [Mass/volume] in Ser um or PlasmaOrdered By: Salvador Maier on 07-22-2022 Protein [Mass/Vol] 6.4 g/dL 6.1-7.9 [facility] RBC Auto (Bld) [#/Vol]Ordere d By: Salvador Maier on 07-22-2022 RBC (Bld) [#/Vol] 4.42 10*6/uL 3.60-5.00 [facility] Serum or plasma alanine mckeon otransferase measurement without P-5'-P (enzymatic activiOrdered By: Salvador Maier on 07-22-2022 ALT No additional P-5'-P [Catalytic activity/Vol] 12 U/L 10-60 [facility] Serum or plasma albumin/glob ulin mass ratioOrdered By: Salvador Maier on 07-22-2022 Albumin/Globulin [Mass ratio] 1.6 {ratio} [facility] Serum or plasma alkaline kamron sphatase measurement (enzymatic activity/volume)Ordered By: Salvador Maier on 07-22-2022 ALP [Catalytic activity/Vol] 109 U/L 32-92 [facility] Serum or plasma anion gap de terminationOrdered By: Salvador Maier on 07-22-2022 Anion gap [Moles/Vol] 13.2 mmol/L 6.0-15.0 [facility] Serum or plasma aspartate am inotransferase measurement (enzymatic activity/volume)Ordered By: Salvador Maier on 07-22-2022 AST [Catalytic activity/Vol] 16 U/L 10-42 [facility] Serum or plasma calcium kunal urement (mass/volume)Ordered By: Salvador Maier on 07-22-2022 Calcium [Mass/Vol] 8.8 mg/dL 8.2-10.2 [facility] Serum or plasma chloride chacorta surement (moles/volume)Ordered By: Salvador Maier on 07-22-2022 Chloride [Moles/Vol] 103 mmol/L 95-114 [facility] Serum or plasma glucose kunal urement (mass/volume)Ordered By: Salvador Maier on 07-22-2022 Glucose [Mass/Vol] 102 mg/dL 70-100 [facility] Comment on above: ADA recommended refe rence rangeRandom Glucose Reference Range is dependent on time and content of last meal. Glucose of more than 200 mg/dL in a nonstressed, ambulatory subject supports the diagnosis of Diabetes Mellitus. Serum or plasma potassium me asurement (moles/volume)Ordered By: Salvador Maier on 07-22-2022 Potassium [Moles/Vol] 3.2 mmol/L 3.5-5.1 [facility] Serum or plasma sodium measu rement (moles/volume)Ordered By: Salvador Maier on 07-22-2022 Sodium [Moles/Vol] 139 mmol/L 136-146 [facility] Serum or plasma total biliru bin measurement (mass/volume)Ordered By: Salvador Maier on 07-22-2022 Bilirubin [Mass/Vol] 0.3 mg/dL 0.3-1.2 [facility] Serum or plasma total carbon dioxide measurement (moles/volume)Ordered By: Salvador Maier on 07-22-2022 CO2 [Moles/Vol] 26.0 mmol/L 22.0-30.0 [facility] Serum or plasma urea nitroge n measurement (mass/volume)Ordered By: Salvador Maier on 07-22-2022 Urea nitrogen [Mass/Vol] 4 mg/dL 04-03 [facility] Specific gravity Auto test s trip (U) [Rel density]Ordered By: Salvador Maier on 07-22-2022 Specific gravity (U) [Rel density] 1.004 1.001-1.030 [facility] Urine clarity by refractomet ry automatedOrdered By: Salvador Maier on 07-22-2022 Clarity Refractometry automated (U) Clear Clear [facility] Urine glucose measurement by automated test strip (mass/volume)Ordered By: Salvador Maier on 07-22-2022 Glucose Auto test strip (U) [Mass/Vol] Normal mg/dL Normal [facility] Urine hemoglobin detection b y automated test stripOrdered By: Salvador Maier on 07-22-2022 Hemoglobin Auto test strip Ql (U) Negative Negative [facility] Urine leukocyte esterase det ection by automated test stripOrdered By: Salvador Maier on 07-22-2022 Leukocyte esterase Auto test strip Ql (U) Negative Negative [facility] Urobilinogen Auto test strip (U) [Mass/Vol]Ordered By: Salvador Maier on 07-22-2022 Urobilinogen (U) [Mass/Vol] Normal mg/dL Normal [facility] WBC Auto (Bld) [#/Vol]Ordere d By: Salvador Maier on 07-22-2022 WBC (Bld) [#/Vol] 8.8 10*3/uL 3.8-11.6 [facility] pH Auto test strip (U)Ordere d By: Salvador Maier on 07-22-2022 pH (U) 7.0 [pH] 5.0-9.0 [facility] CBC AUTO DIFFon 07-21-2022 BASO # 0.0 103/ul Normal 0.0-0.1 [facility] Comment on above: Performed By: #### C BC ####[place] [address] [place], [place] [address]Dr. Michaelajean-claude Maxim Basophils/100 WBC (Bld) 0.5 % Normal 0.2-2.0 [facility] Comment on above: Performed By: #### C BC ####[place] [address] [place], [place] [address]Dr. Ruthie Pan EO # 0.5 103/ul Normal 0.0-0.7 [facility] Comment on above: Performed By: #### C BC ####[place] [address] [place], [place] [address]Dr. Ruthie Pan Eosinophils/100 WBC (Bld) 5.8 % Normal 0.9-7.0 [facility] Comment on above: Performed By: #### C BC ####[place] [address] [place], [place] [address]Dr. Ruthie Pan Erythrocyte distribution width (RBC) [Ratio] 14.0 % Normal 11.0-15.0 [facility] Comment on above: Performed By: #### C BC ####[place] [address] [place], [place] [address]Dr. Ruthie aPn Hematocrit (Bld) [Volume fraction] 38.9 % Normal 36.0-48.0 [facility] Comment on above: Performed By: #### C BC ####[place] [address] [place], [place] [address]Dr. Ruthie Pan Hemoglobin (Bld) [Mass/Vol] 13.0 g/dL Normal 12.0-16.0 [facility] Comment on above: Performed By: #### C BC ####[place] [address] [place], [place] [address]Dr. Ruthie Pan IG # 0.02 10e3/ul Normal 0.00-0.03 [facility] Comment on above: Performed By: #### C BC ####[place] [address] [place] [address]Dr. Ruthie Pan IG % 0.3 % Normal 0.0-0.5 [facility] Comment on above: Performed By: #### C BC ####[place] [address] [place] [address]Dr. Ruthie Pan LYMPH # 2.8 103/ul Normal 1.2-3.8 [facility] Comment on above: Performed By: #### C BC ####[place] [address] [place], [place] [address]Dr. Ruthie Pan Lymphocytes/100 WBC (Bld) 36.0 % Normal 20.5-60.0 [facility] Comment on above: Performed By: #### C BC ####[place] [address] [place], [place] [address]Dr. Ruthie Pan MANUAL DIFF REQ NO Normal [facility] Comment on above: Performed By: #### C BC ####[place] [address] [place] [address]Dr. Ruthie Maxim MCH (RBC) [Entitic mass] 30.6 pg Normal 26.7-34.0 [facility] Comment on above: Performed By: #### C BC ####[place] [address] [place], [place] [address]Dr. Ruthie Maxim MCHC (RBC) [Mass/Vol] 33.4 g/dL Normal 29.9-35.2 [facility] Comment on above: Performed By: #### C BC ####[place] [address] [place], [place] [address]DrGideon Pan MCV (RBC) [Entitic vol] 91.5 fL Normal 81.0-99.0 [facility] Comment on above: Performed By: #### C BC ####[place] [address] [place], [place] [address]DrGideon Pan MONO # 0.6 103/ul Normal 0.3-0.8 [facility] Comment on above: Performed By: #### C BC ####[place] [address] [place], [place] [address]Dr. Ruthie Pan Monocytes/100 WBC (Bld) 7.9 % Normal 1.7-12.0 [facility] Comment on above: Performed By: #### C BC ####[place] [address] [place] [id number]. Michaelajean-claude Pan NEUT # 3.8 103/ul Normal 1.4-6.5 [facility] Comment on above: Performed By: #### C BC ####[place] [address] [place] [address]Dr. Ruthie Pan Neutrophils/100 WBC (Bld) 49.5 % Normal 43.0-75.0 [facility] [place] Comment on above: Performed By: #### C BC ####[place] [address] [place] [address]Dr. Ruthie Pan Platelet mean volume (Bld) [Entitic vol] 10.6 fL Normal 9.5-13.5 [facility] Comment on above: Performed By: #### C BC ####[place] [address] [place] [address]Dr. Ruthie Pan PLT 201 103/ul Normal 150-450 [facility] [place] Comment on above: Performed By: #### C BC ####[place] [address] [place] [id number]. Ruthie Pan RBC 4.25 106/ul Normal 4.20-5.40 [facility] [place] Comment on above: Performed By: #### C BC ####[place] [address] [place] [id number]. Ruthie Pan WBC 7.8 103/ul Normal 4.0-11.0 [facility] [place] Comment on above: Performed By: #### C BC ####[place] [address] [place] [id number] Pan ER URINE PROFILEon 3 Bilirubin Ql (U) Negative Normal NEGATIVE [facility] Comment on above: Performed By: #### U MICRO, ERUR #### [facility] [id number] Ruthie Pan Clarity (U) CLEAR Normal CLEAR [facility] Comment on above: Performed By: #### U MICRO, ERUR #### [facility] [address] [address] [address] Ruthie Pan Color (U) LT. YELLOW Normal YELLOW [facility] Comment on above: Performed By: #### U MICRO, ERUR #### [facility] [address] [address] [address] Ruthie CASTELLOND A micrscopic examination will be performed if indicated. Normal [facility] [place] Comment on above: Performed By: #### U MICRO, ERUR #### [facility] [address] [address] [address] Ruthie Pan Glucose Ql (U) Negative Normal NEGATIVE [facility] Comment on above: Performed By: #### U MICRO, ERUR #### [facility] [address] [place] [address] Dr. Ruthie Pan Hemoglobin Ql (U) TRACE-LYSED Abnormal NEGATIVE [facility] Comment on above: Performed By: #### U MICRO, ERUR #### [facility] [address] [address] [address] Ruthie Pan Ketones Ql (U) Negative Normal NEGATIVE [facility] Comment on above: Performed By: #### U MICRO, ERUR #### [facility] [address] [place] [address] Dr. Ruthie Pan LEUKOCYTES Negative Normal NEGATIVE [facility] Comment on above: Performed By: #### U MICRO, ERUR #### [facility] [address] [address] [address] Ruthie Pna Nitrite Ql (U) Negative Normal NEGATIVE [facility] Comment on above: Performed By: #### U MICRO, ERUR #### [facility] [address] [address] [address] Ruthie Pan pH (U) 6.5 [pH] Normal 5-9 [facility] Comment on above: Performed By: #### U MICRO, ERUR #### [facility] [address] [place] [address] Dr. Ruthie Pan SPEC GRAVITY <=1.005 Abnormal 1.005-<=1.02 5 [facility] Comment on above: Performed By: #### U MICRO, ERUR #### [facility] [address] [address] [address] Ruthie Pan UA PROTEIN Negative Normal NEGATIVE/ TRACE [facility] Comment on above: Performed By: #### U MICRO, ERUR #### [facility] [address] [address] [address] Ruthie Pan UR MICRO IND INDICATED Normal [facility] Comment on above: Performed By: #### U MICRO, ERUR #### [facility] [address] [address] [address] Ruthie Pan Urobilinogen Qn (U) 0.2 {Harjeet'U}/dL Normal 0.2 - 1. 0 [facility] Comment on above: Performed By: #### U MICRO, ERUR #### [facility] [address] [place] [address] Dr. Ruthie Pan LACTATE/LACTIC ACIDon 2022 Lactate [Moles/Vol] 0.7 mmol/L Normal 0.4-1.9 [facility] Comment on above: Performed By: #### L ACT ####[place] [address] [place], [place] [address]DrGideon Pan LIPASEon 07-21-2022 Lipase [Catalytic activity/Vol] 97.0 U/L Normal 73.0-393.0 [facility] Comment on above: Performed By: #### L IPA, CMP ####[place] [address] [place] [address]DrGideon Pan PROF 14(COMP METB)on 023 Albumin [Mass/Vol] 3.6 g/dL Normal 3.4-5.0 [facility] Comment on above: Performed By: #### L IPA, CMP ####[place] [address] [place] [address]DrGideon Pan Albumin/Globulin [Mass ratio] 1.3 {ratio} Normal [facility] Comment on above: Performed By: #### L IPA, CMP ####[place] [address] [place] [address]Dr. Ruthie Pan ALP [Catalytic activity/Vol] 129 U/L Critically high 46-116 [facility] Comment on above: Performed By: #### L IPA, CMP ####[place] [address] [place] [address]Dr. Ruthie Pan ALT [Catalytic activity/Vol] 13 U/L Critically low 14-59 [facility] Comment on above: Performed By: #### L IPA, CMP ####[place] [address] [place], [place] [address]Dr. Ruthie Pan Anion gap [Moles/Vol] 10.0 mmol/L Normal [facility] Comment on above: Performed By: #### L IPA, CMP ####[place] [address] [place], [place] [address]Dr. Michaelajean-claude Pan AST [Catalytic activity/Vol] 13 U/L Critically low 15-37 [facility] Comment on above: Performed By: #### L IPA, CMP ####[place] [address] [place], [place] [address]Dr. Ruthie Pan Bilirubin [Mass/Vol] 0.2 mg/dL Normal 0.2-1.0 [facility] Comment on above: Performed By: #### L IPA, CMP ####[place] [address] [place], [place] [address]Dr. Ruthie Pan Calcium [Mass/Vol] 8.5 mg/dL Normal 8.5-10.1 [facility] Comment on above: Performed By: #### L IPA, CMP ####[place] [address] [place], [place] [address]Dr. Ruthie Pan Chloride [Moles/Vol] 104 mmol/L Normal 98-107 [facility] Comment on above: Performed By: #### L IPA, CMP ####[place] [address] [place], [place] [address]Dr. Ruthie Pan CO2 [Moles/Vol] 29.6 mmol/L Normal 21.0-32.0 [facility] Comment on above: Performed By: #### L IPA, CMP ####[place] [address] [place] [address]Dr. Ruthie Pan Creatinine [Mass/Vol] 0.67 mg/dL Normal 0.55-1.02 [facility] Comment on above: Performed By: #### L IPA, CMP ####[place] [address] [place] [id number]. Ruthie Pan EGFR-AF [place] >60 Normal >=60 [facility] Comment on above: Performed By: #### L IPA, CMP ####[place] [address] [place] [id number]. Ruthie Maxim EGFR-NON AF [place] >60 Normal >=60 [facility] Comment on above: Performed By: #### L IPA, CMP ####[place] [address] [place] [address]Dr. Ruthie Maxim Globulin (S) [Mass/Vol] 2.8 g/dL Normal [facility] Comment on above: Performed By: #### L IPA, CMP ####[place] [address] [place] [id number]. Michaelajean-claude Maxim Glucose [Mass/Vol] 106 mg/dL Normal 74-106 [facility] Comment on above: Performed By: #### L IPA, CMP ####[place] [address] [place] [address]Dr. Ruthie Maxim Potassium [Moles/Vol] 3.6 mmol/L Normal 3.5-5.1 [facility] [place] Comment on above: Performed By: #### L IPA, CMP ####[place] [address] [place] [id number]. Ruthie Pan Protein [Mass/Vol] 6.4 g/dL Normal 6.4-8.2 [facility] Comment on above: Performed By: #### L IPA, CMP ####[place] [address] [place] [address]Dr. Ruthie Pan Sodium [Moles/Vol] 140 mmol/L Normal 136-145 [facility] Comment on above: Performed By: #### L IPA, CMP ####[place] [address] [place] [id number] Pan Urea nitrogen [Mass/Vol] 4.0 mg/dL Critically low 7.0-18.0 [facility] Comment on above: Performed By: #### L IPA, CMP ####[place] [address] [place] [id number]. Ruthie Pan Urea nitrogen/Creatinine [Mass ratio] 6.0 mg/mg Normal [facility] Comment on above: Performed By: #### L IPA, CMP ####[place] [address] [place] [address]Dr. Ruthie Pan URINE MICROSCOPIC ONLYon BACTERIA NONE SEEN Normal NONE SEEN [facility] Comment on above: Performed By: #### U MICRO, ERUR #### [facility] [address] [address] [address] Ruthie Pan Bacteria identified Cx Nom (U) NOT INDICATED Normal [facility] [place] Comment on above: Performed By: #### U MICRO, ERUR #### [facility] [address] [address] [address] Ruthie Pan CAST NONE SEEN Normal NONE SEEN [facility] Comment on above: Performed By: #### U MICRO, ERUR #### [facility] [address] [address] [address] Ruthie Pan Crystals LM Nom (Urine sed) NONE SEEN Normal NONE SEEN [facility] [place] Comment on above: Performed By: #### U MICRO, ERUR #### [facility] [address] [address] [address] Ruthie Pan Epithelial cells LM Ql (Urine sed) FEW Abnormal NONE SEEN /RARE [facility] [place] Comment on above: Performed By: #### U MICRO, ERUR #### [facility] [address] [address] [address] Ruthie Pan MUCOUS NONE SEEN Normal NONE SEEN [facility] Comment on above: Performed By: #### U MICRO, ERUR #### [facility] [address] [address] [address] Ruthie Pan RBC 0-2 Normal 0-2 [facility] [place] Comment on above: Performed By: #### U MICRO, ERUR #### [facility] [address] [address] [address] Ruthie Pan WBC 0-2 Abnormal NONE SEEN [facility] [place] Comment on above: Performed By: #### U MICRO, ERUR #### [facility] [address] [address] [address] Ruthie Pan US SINGLE QUAD RT [...] KAE VILLALPANDO Date: 2022-07-21 20:21 Normal [facility] [place] Albumin [Mass/volume] in Ser um or PlasmaOrdered By: Rufina Rubio on 07-20-2022 Albumin [Mass/Vol] 3.8 g/dL 3.2-5.5 [facility] Basophils Auto (Bld) [#/Vol] Ordered By: Rufina Rubio on 07-20-2022 Basophils (Bld) [#/Vol] 0.1 10*3/uL 0.0-0.2 [facility] Basophils/100 WBC Auto (Bld) Ordered By: Rufina Rubio on 07-20-2022 Basophils/100 WBC (Bld) 1.2 % . F [facility] Cholesterol [Mass/volume] in Serum or PlasmaOrdered By: Rufina Rubio on 07-20-2022 Cholesterol [Mass/Vol] 183 mg/dL 140-200 [facility] on above: Chol less than 200 m g/dl low riskChol 201-239 mg/dl borderline riskChol 240 mg/dl and greater high risk Cholesterol in LDL Calc [Mas s/Vol]Ordered By: Rufina Rubio on 07-20-2022 Cholesterol in LDL [Mass/Vol] 104 mg/dL 0-100 [facility] Comment on above: LDL ATP III CLASSIFI CATIONLDL less than 100 mg/dL OptimalLDL 100-129 mg/dL Near or above optimalLDL 130-159 mg/dL Borderline highLDL 160-189 mg/dL HighLDL greater than 189 mg/dL Very high Cholesterol in VLDL Calc [Ma ss/Vol]Ordered By: Rufina Rubio on 07-20-2022 Cholesterol in VLDL [Mass/Vol] 26 mg/dL [facility] Creatinine and Glomerular fi ltration rate.predicted panel (S/P/Bld)Ordered By: Rufina Rubio on 07-20-2022 Creatinine [Mass/Vol] 0.64 mg/dL 0.44-1.03 [facility] Eosinophils Auto (Bld) [#/Vo l]Ordered By: Rufina Rubio on 07-20-2022 Eosinophils (Bld) [#/Vol] 0.3 10*3/uL 0.0-0.45 [facility] Eosinophils/100 WBC Auto (Bl d)Ordered By: Rufina Rubio on 07-20-2022 Eosinophils/100 WBC (Bld) 3.0 % . [facility] Erythrocyte distribution wid th Auto (RBC) [Ratio]Ordered By: Rufina Rubio on 07-20-2022 Erythrocyte distribution width (RBC) [Ratio] 14.5 % 11.9-15.3 [facility] Estimated glomerular filtrat ion rate (GFR) non- AmericanOrdered By: Rufina Rubio on 07-20-2022 GFR/1.73 sq M.predicted among non-blacks MDRD (S/P/Bld) [Vol rate/Area] > 60 mL/Min [facility] Globulin Calc (S) [Mass/Vol] Ordered By: Rufina Rubio on 07-20-2022 Globulin (S) [Mass/Vol] 2.4 g/dL F [facility] Hematocrit Auto (Bld) [Volum e fraction]Ordered By: Rufina Rubio on 07-20-2022 Hematocrit (Bld) [Volume fraction] 40.8 % 34.0-46.4 [facility] Hemoglobin [Mass/volume] in BloodOrdered By: Rufina Rubio on 07-20-2022 Hemoglobin (Bld) [Mass/Vol] 13.4 g/dL 11.8-15.4 [facility] - Chemistry and C hemistry - challengeOrdered By: Rufina Rubio on 07-20-2022 Cobalamin (Vitamin B12) [Mass/Vol] 137 pg/mL 180-914 [facility] Lipase [Catalytic activity/Vol] 53.0 U/L 22-51 [facility] Leukocytes [#/volume] correc zakia for nucleated erythrocytes in Blood by Automated counOrdered By: Rufina Rubio on 07-20-2022 WBC corrected for nucl RBC Auto (Bld) [#/Vol] 8.5 10*3/uL 3.8-11.6 [facility] Lymphocytes Auto (Bld) [#/Vo l]Ordered By: Rufina Rubio on 07-20-2022 Lymphocytes (Bld) [#/Vol] 3.1 10*3/uL 1.00-4.8 [facility] Lymphocytes/100 WBC Auto (Bl d)Ordered By: Rufina Rubio on 07-20-2022 Lymphocytes/100 WBC (Bld) 36.6 % . [facility] MCH Auto (RBC) [Entitic mass ]Ordered By: Rufina Rubio on 07-20-2022 MCH (RBC) [Entitic mass] 30.4 pg 24.7-34.3 [facility] MCHC Auto (RBC) [Mass/Vol]Or dered By: Rufina Rubio on 07-20-2022 MCHC (RBC) [Mass/Vol] 32.8 g/dL 32.0-35.0 [facility] MCV Auto (RBC) [Entitic vol] Ordered By: Rufina Rubio on 07-20-2022 MCV (RBC) [Entitic vol] 92.7 fL 80-100 [facility] Monocytes Auto (Bld) [#/Vol] Ordered By: Rufina Rubio on 07-20-2022 Monocytes (Bld) [#/Vol] 0.6 10*3/uL 0.0-0.8 [facility] Monocytes/100 WBC Auto (Bld) Ordered By: Rufina Rubio on 07-20-2022 Monocytes/100 WBC (Bld) 7.0 % . [facility] Neutrophils Auto (Bld) [#/Vo l]Ordered By: Rufina Rubio on 07-20-2022 Neutrophils (Bld) [#/Vol] 4.4 10*3/uL 1.8-7.7 [facility] Neutrophils/100 WBC Auto (Bl d)Ordered By: Rufina Rubio on 07-20-2022 Neutrophils/100 WBC (Bld) 52.2 % . [facility] No Panel InformationOrdered By: Rufina Rubio on 07-20-2022 Estimated GFR () > 60 mL/Min [facility] Comment on above: GFR estimated refere nce range: According to KDOQI guidelines, <60 ml/min/1.73m2 is sufficient to diagnose a patient with chronic kidney disease. Pharmacy Creatinine Clearance (Chem N/A [facility] Nucleated erythrocytes [Pres ence] in Blood by Automated countOrdered By: Rufina Rubio on 07-20-2022 Nucleated RBC Auto Ql (Bld) 0.2 /100{WBC} 0-0.5 [facility] Platelet mean volume Auto (B ld) [Entitic vol]Ordered By: Rufina Rubio on 07-20-2022 Platelet mean volume (Bld) [Entitic vol] 10.2 fL 6.3-10.7 [facility] Platelets Auto (Bld) [#/Vol] Ordered By: Rufina Rubio on 07-20-2022 Platelets (Bld) [#/Vol] 183 10*3/uL 150-450 [facility] Protein [Mass/volume] in Ser um or PlasmaOrdered By: Rufina Rubio on 07-20-2022 Protein [Mass/Vol] 6.2 g/dL 6.1-7.9 [facility] RBC Auto (Bld) [#/Vol]Ordere d By: Rufina Rubio on 07-20-2022 RBC (Bld) [#/Vol] 4.40 10*6/uL 3.60-5.00 [facility] Serum or plasma alanine mckeon otransferase measurement without P-5'-P (enzymatic activiOrdered By: Rufina Rubio on 07-20-2022 ALT No additional P-5'-P [Catalytic activity/Vol] 10 U/L 10-60 [facility] Serum or plasma albumin/glob ulin mass ratioOrdered By: Rufina Rubio on 07-20-2022 Albumin/Globulin [Mass ratio] 1.6 {ratio} [facility] Serum or plasma alkaline kamron sphatase measurement (enzymatic activity/volume)Ordered By: Rufina Rubio on 07-20-2022 ALP [Catalytic activity/Vol] 107 U/L 32-92 [facility] Serum or plasma amylase kunal urement (enzymatic activity/volume)Ordered By: Rufina Rubio on 07-20-2022 Amylase [Catalytic activity/Vol] 129 U/L 28-100 [facility] Serum or plasma anion gap de terminationOrdered By: Rufina Rubio on 07-20-2022 Anion gap [Moles/Vol] 9.5 mmol/L 6.0-15.0 [facility] Serum or plasma aspartate am inotransferase measurement (enzymatic activity/volume)Ordered By: Rufina Rubio on 07-20-2022 AST [Catalytic activity/Vol] 13 U/L 10-42 [facility] Serum or plasma calcium kunal urement (mass/volume)Ordered By: Rufina Rubio on 07-20-2022 Calcium [Mass/Vol] 8.7 mg/dL 8.2-10.2 [facility] Serum or plasma chloride chacorta surement (moles/volume)Ordered By: Rufina Rubio on 07-20-2022 Chloride [Moles/Vol] 107 mmol/L 95-114 [facility] Serum or plasma glucose kunal urement (mass/volume)Ordered By: Rfuina Rubio on 07-20-2022 Glucose [Mass/Vol] 82 mg/dL 70-100 [facility] Comment on above: ADA recommended refe rence rangeRandom Glucose Reference Range is dependent on time and content of last meal. Glucose of more than 200 mg/dL in a nonstressed, ambulatory subject supports the diagnosis of Diabetes Mellitus. Serum or plasma high density lipoprotein (HDL) cholesterol measurementOrdered By: Rufina Rubio on 07-20-2022 Cholesterol in HDL [Mass/Vol] 53 mg/dL 35-85 [facility] Comment on above: HDL CHOL ATP-III CLA SSIFICATION Cardiovascular RiskHDL > or equal to 60 mg/dL LOWHDL < 40 mg/dL HIGH Serum or plasma potassium me asurement (moles/volume)Ordered By: Rufina Rubio on 07-20-2022 Potassium [Moles/Vol] 3.9 mmol/L 3.5-5.1 [facility] Serum or plasma sodium measu rement (moles/volume)Ordered By: Rufina Rubio on 07-20-2022 Sodium [Moles/Vol] 138 mmol/L 136-146 [facility] Serum or plasma total biliru bin measurement (mass/volume)Ordered By: Rufina Rubio on 07-20-2022 Bilirubin [Mass/Vol] 0.3 mg/dL 0.3-1.2 [facility] Serum or plasma total carbon dioxide measurement (moles/volume)Ordered By: Rufina Rubio on 07-20-2022 CO2 [Moles/Vol] 25.4 mmol/L 22.0-30.0 [facility] Serum or plasma total choles terol/high density lipoprotein (HDL) cholesterol mass ratOrdered By: Rufina Rubio on 07-20-2022 Cholesterol.total/Katie sterol in HDL [Mass ratio] 3.5 {ratio} <5.0 [facility] Serum or plasma urea nitroge n measurement (mass/volume)Ordered By: Rufina Rubio on 07-20-2022 Urea nitrogen [Mass/Vol] 5 mg/dL 9-23 [facility] TSH DL <= 0.005 mIU/L QnOrde red By: Rufina Rubio on 07-20-2022 TSH Qn 4.78 m[IU]/L 0.45-5.33 [facility] Thyroxine (T4) free [Mass/vo lume] in Serum or PlasmaOrdered By: Rufina Rubio on 07-20-2022 Free T4 [Mass/Vol] 0.80 ng/dL 0.61-1.12 [facility] Triglyceride [Mass/volume] i n Serum or PlasmaOrdered By: Rufina Rubio on 07-20-2022 Triglyceride [Mass/Vol] 132 mg/dL 35-149 [facility] Comment on above: TRIG ATP III CLASSIF ICATIONTRIG less than 150 mg/dL NormalTRIG 150-199 mg/dL Borderline highTRIG 200-500 mg/dL High TRIG greater than 500 mg/dL Very highStandard traceable to the Center for Disease Conrtrol and Prevention (CDC) test method. Urine culture routineOrdered By: Rufina Rubio on 07-20-2022 Bacteria identified Cx Nom (U) Escherichia coli [facility] Bacteria identified Cx Nom (U) Escherichia coli [facility] WBC Auto (Bld) [#/Vol]Ordere d By: Rufina Rubio on 07-20-2022 WBC (Bld) [#/Vol] 8.5 10*3/uL 3.8-11.6 [facility] CBC AUTO DIFFon 06-24-2022 BASO # 0.0 103/ul Normal 0.0-0.1 [facility] Comment on above: Performed By: #### C BC #### [facility] [address] [place], [place] [address] Dr. Ruthie Pan Basophils/100 WBC (Bld) 0.5 % Normal 0.2-2.0 [facility] Comment on above: Performed By: #### C BC #### [facility] [address] [place] [address] Dr. Ruthie Pan EO # 0.1 103/ul Normal 0.0-0.7 [facility] Comment on above: Performed By: #### C BC #### [facility] [address] [place] [address] Dr. Ruthie Pan Eosinophils/100 WBC (Bld) 1.6 % Normal 0.9-7.0 [facility] Comment on above: Performed By: #### C BC #### [facility] [address] [place] [address] Dr. Ruthie Pan Erythrocyte distribution width (RBC) [Ratio] 13.2 % Normal 11.0-15.0 [facility] Comment on above: Performed By: #### C BC #### [facility] [address] [place] [address] Dr. Ruthie Pan Hematocrit (Bld) [Volume fraction] 41.5 % Normal 36.0-48.0 [facility] Comment on above: Performed By: #### C BC #### [facility] [address] [place] [address] Dr. Ruthie Pan Hemoglobin (Bld) [Mass/Vol] 13.9 g/dL Normal 12.0-16.0 [facility] Comment on above: Performed By: #### C BC #### [facility] [address] [place] [address] Dr. Ruthie Pan IG # 0.02 10e3/ul Normal 0.00-0.03 [facility] Comment on above: Performed By: #### C BC #### [facility] [address] [place] [address] Dr. Ruthie Pan IG % 0.2 % Normal 0.0-0.5 [facility] Comment on above: Performed By: #### C BC #### [facility] [address] [place] [address] Dr. Ruthie Pan LYMPH # 2.5 103/ul Normal 1.2-3.8 [facility] Comment on above: Performed By: #### C BC #### [facility] [address] [place] [address] Dr. Ruthie Pan Lymphocytes/100 WBC (Bld) 28.8 % Normal 20.5-60.0 [facility] Comment on above: Performed By: #### C BC #### [facility] [address] [place] [address] Dr. Ruthie Pan MANUAL DIFF REQ NO Normal [facility] Comment on above: Performed By: #### C BC #### [facility] [address] [place] [address] Dr. Ruthie Pan MCH (RBC) [Entitic mass] 30.3 pg Normal 26.7-34.0 [facility] Comment on above: Performed By: #### C BC #### [facility] [address] [place] [address] Dr. Ruthie Pan MCHC (RBC) [Mass/Vol] 33.5 g/dL Normal 29.9-35.2 [facility] Comment on above: Performed By: #### C BC #### [facility] [address] [place] [address] Dr. Ruthie Pan MCV (RBC) [Entitic vol] 90.6 fL Normal 81.0-99.0 [facility] Comment on above: Performed By: #### C BC #### [facility] [address] [place] [address] Dr. Ruthie Pan MONO # 0.6 103/ul Normal 0.3-0.8 [facility] Comment on above: Performed By: #### C BC #### [facility] [address] [place] [address] Dr. Ruthie Pan Monocytes/100 WBC (Bld) 6.4 % Normal 1.7-12.0 [facility] Comment on above: Performed By: #### C BC #### [facility] [address] [place] [address] Dr. Ruthie Pan NEUT # 5.5 103/ul Normal 1.4-6.5 [facility] Comment on above: Performed By: #### C BC #### [facility] [address] [place] [address] Dr. Ruthie Pan Neutrophils/100 WBC (Bld) 62.5 % Normal 43.0-75.0 [facility] Comment on above: Performed By: #### C BC #### [facility] [address] [place] [address] Dr. Ruthie Pan Platelet mean volume (Bld) [Entitic vol] 11.1 fL Normal 9.5-13.5 [facility] Comment on above: Performed By: #### C BC #### [facility] [address] [place] [address] Dr. Ruthie Pan PLT 150 103/ul Normal 150-450 [facility] Comment on above: Performed By: #### C BC #### [facility] [address] [place] [address] Dr. Ruthie aPn RBC 4.58 106/ul Normal 4.20-5.40 [facility] Comment on above: Performed By: #### C BC #### [facility] [address] [place] [address] Dr. Ruthie Pan WBC 8.8 103/ul Normal 4.0-11.0 [facility] Comment on above: Performed By: #### C BC #### [facility] [address] [place] [address] Dr. Ruthie Pan [facility]11 SARS-CoV-2 (COVID-19) RNA MICHAEL+probe Ql (Unsp spec) Not detected Normal NOT DETECTED [facility] Comment on above: Result Comment: This test is not yet approved or cleared by the [place] FDA. When there are no FDA-approved or cleared tests available, and other criteria are met, FDA can make tests available under an emergency access mechanism called an Emergency Use Authorization (EUA). The EUA for this test is supported by the [employer] of Health and Human Service's (HHS's) declaration [...] with SARS-CoV-2. Performed By: #### C VDTB ####[facility] [address] [place], [place] [address]Dr. Ruthie Pan INFLUENZA A AND B AGon 06-24 [facility] BEL[facility] Normal [facility] Comment on above: Result Comment: Nega tive for Flu A protein angiten. Infection due to Flu A cannot be ruled out. Flu A angiten in the sample may be below the detection limit of the test. Performed By: #### I NFLUAB ####[facility] [address] [place], [place] [address]Dr. Ruthie Pan INFLUBNEG SEE BELOW Normal [facility] Comment on above: Result Comment: Nega tive for Flu B protein antigen. Infection due to Flu B cannot be ruled out. Flu B antigen in the sample may be below the detection limit of the test. Performed By: #### I NFLUAB ####[facility] [address] [place], [place] [address]Dr. Ruthie Pan INFLUENZA A AG Negative Normal NEGATIVE SEE COMMENT [facility] Comment on above: Performed By: #### I NFLUAB ####[facility] [address] [place], [place] [address]Dr. Ruthie [facility] INFLUENZA B AG Negative Normal NEGATIVE SEE COMMENT [facility] Comment on above: Performed By: #### I NFLUAB ####[facility] [address] [place], [place] [address]Dr. Ruthie Pan INTERNAL CONTROLS Within Normal Limits Normal Wi thin Normal Limits [facility] Comment on above: Performed By: #### I NFLUAB ####[facility] [address] [place], [place] [address]Dr. Ruthie Pan PROF 14(COMP METB)on 022 Albumin [Mass/Vol] 3.7 g/dL Normal 3.4-5.0 [facility] Comment on above: Performed By: #### C MP ####[facility] [address] [place] [id number]. Ruthie Pan Albumin/Globulin [Mass ratio] 1.1 {ratio} Normal [facility] Comment on above: Performed By: #### C MP ####[facility] [address] [place] [address]Dr. Ruthie Pan ALP [Catalytic activity/Vol] 125 U/L Critically high 46-116 [facility] Comment on above: Performed By: #### C MP ####[facility] [address] [place] [address]Dr. Ruthie Pan ALT [Catalytic activity/Vol] 17 U/L Normal 14-59 [facility] Comment on above: Performed By: #### C MP ####[facility] [address] [place], [place] [address]Dr. Ruthie Pan Anion gap [Moles/Vol] 9.8 mmol/L Normal [facility] Comment on above: Performed By: #### C MP ####[facility] [address] [place], [place] [address]Dr. Ruthie Maxim AST [Catalytic activity/Vol] 16 U/L Normal 15-37 [facility] Comment on above: Performed By: #### C MP ####[facility] [address] [place], [place] [address]Dr. Ruthie Maxim Bilirubin [Mass/Vol] 0.3 mg/dL Normal 0.2-1.0 [facility] Comment on above: Performed By: #### C MP ####[facility] [address] [place], [place] [address]Dr. Ruthie Maxim Calcium [Mass/Vol] 8.7 mg/dL Normal 8.5-10.1 [facility] Comment on above: Performed By: #### C MP ####[facility] [address] [place], [place] [address]Dr. Ruthie Maxim Chloride [Moles/Vol] 103 mmol/L Normal 98-107 [facility] Comment on above: Performed By: #### C MP ####[facility] [address] [place], [place] [id number]. Ruthie Pan CO2 [Moles/Vol] 28.3 mmol/L Normal 21.0-32.0 [facility] Comment on above: Performed By: #### C MP ####[facility] [address] [place], [place] [address]Dr. Ruthie Pan Creatinine [Mass/Vol] 0.62 mg/dL Normal 0.55-1.02 [facility] Comment on above: Performed By: #### C MP ####[facility] [address] [place], [place] [address]Dr. Michaelajean-claude Pan EGFR-AF [place] >60 Normal >=60 [facility] Comment on above: Performed By: #### C MP ####[facility] [address] [place], [place] [address]Dr. Ruthie Pan EGFR-NON AF [place] >60 Normal >=60 [facility] Comment on above: Performed By: #### C MP ####[facility] [address] [place], [place] [address]Dr. Ruthie Pan Globulin (S) [Mass/Vol] 3.4 g/dL Normal [facility] Comment on above: Performed By: #### C MP ####[facility] [address] [place], [place] [address]Dr. Ruthie Pan Glucose [Mass/Vol] 103 mg/dL Normal 74-106 [facility] Comment on above: Performed By: #### C MP ####[facility] [address] [place], [place] [address]Dr. Ruthie Pan Potassium [Moles/Vol] 3.1 mmol/L Critically low 3.5-5.1 [facility] Comment on above: Performed By: #### C MP ####[facility] [address] [place], [place] [address]Dr. Ruthie Pan Protein [Mass/Vol] 7.1 g/dL Normal 6.4-8.2 [facility] Comment on above: Performed By: #### C MP ####[facility] [address] [place], [place] [address]Dr. Ruthie Pan Sodium [Moles/Vol] 140 mmol/L Normal 136-145 [facility] Comment on above: Performed By: #### C MP ####[facility] [address] [place] [address]Dr. Ruthie Pan Urea nitrogen [Mass/Vol] 6.0 mg/dL Critically low 7.0-18.0 [facility] Comment on above: Performed By: #### C MP ####[facility] [address] [place] [address]Dr. Ruthie Pan Urea nitrogen/Creatinine [Mass ratio] 9.7 mg/mg Normal [facility] Comment on above: Performed By: #### C MP ####[facility] [address] [place] [address]Dr. Ruthie Pan Urine culture routineOrdered By: Rufina Rubio on 06-09-2022 Bacteria identified Cx Nom (U) Escherichia coli [facility] Urine culture routineOrdered By: Rufina Rubio on 04-16-2022 Bacteria identified Cx Nom (U) Escherichia coli [facility] AMYLASEon 11-24-2021 Amylase [Catalytic activity/Vol] 85 U/L Normal 25-115 [facility] Comment on above: Performed By: #### C MPROSALIA LIPA #### [facility] [address] [place] [address] [address] Ruthie Pan CBC AUTO DIFFon 11-24-2021 BASO # 0.0 103/ul Normal 0.0-0.1 [facility] Comment on above: Performed By: #### C BC ####[facility] [address] [place] [address]Dr. Ruthie Pan Basophils/100 WBC (Bld) 0.4 % Normal 0.2-2.0 [facility] Comment on above: Performed By: #### C BC ####[facility] [address] [place] [address]DrGideon Pan EO # 0.2 103/ul Normal 0.0-0.7 [facility] Comment on above: Performed By: #### C BC ####[facility] [address] [place] [address]Dr. Ruthie Pan Eosinophils/100 WBC (Bld) 1.6 % Normal 0.9-7.0 [facility] Comment on above: Performed By: #### C BC ####[facility] [address] [place], [place] [address]Dr. Ruthie Pan Erythrocyte distribution width (RBC) [Ratio] 13.8 % Normal 11.0-15.0 [facility] Comment on above: Performed By: #### C BC ####[facility] [address] [place], [place] [address]Dr. Ruthie Pan Hematocrit (Bld) [Volume fraction] 38.5 % Normal 36.0-48.0 [facility] Comment on above: Performed By: #### C BC ####[facility] [address] [place], [place] [address]Dr. Ruthie Pan Hemoglobin (Bld) [Mass/Vol] 12.3 g/dL Normal 12.0-16.0 [facility] Comment on above: Performed By: #### C BC ####[facility] [address] [place] [address]Dr. Ruthie Pan IG # 0.04 10e3/ul Critically high 0.00-0.03 [facility] Comment on above: Performed By: #### C BC ####[facility] [address] [place] [address]Dr. Ruthie Pan IG % 0.4 % Normal 0.0-0.5 [facility] Comment on above: Performed By: #### C BC ####[facility] [address] [place], [place] [address]Dr. Ruthie Pan LYMPH # 3.4 103/ul Normal 1.2-3.8 [facility] Comment on above: Performed By: #### C BC ####[facility] [address] [place], [place] [address]Dr. Ruthie Pan Lymphocytes/100 WBC (Bld) 31.2 % Normal 20.5-60.0 [facility] Comment on above: Performed By: #### C BC ####[facility] [address] [place] [address]Dr. Ruthie Pan MANUAL DIFF REQ NO Normal [facility] Comment on above: Performed By: #### C BC ####[facility] [address] [place] [address]Dr. Ruthie Pan MCH (RBC) [Entitic mass] 31.1 pg Normal 26.7-34.0 [facility] Comment on above: Performed By: #### C BC ####[facility] [address] [place] [address]Dr. Rtuhie Pan MCHC (RBC) [Mass/Vol] 31.9 g/dL Normal 29.9-35.2 [facility] Comment on above: Performed By: #### C BC ####[facility] [address] [place] [address]Dr. Ruthie Maxim MCV (RBC) [Entitic vol] 97.5 fL Normal 81.0-99.0 [facility] Comment on above: Performed By: #### C BC ####[facility] [address] [place] [address]Dr. Ruthie Maxim MONO # 0.9 103/ul Critically high 0.3-0.8 [facility] Comment on above: Performed By: #### C BC ####[facility] [address] [place], [place] [address]Dr. Ruthie Pan Monocytes/100 WBC (Bld) 8.0 % Normal 1.7-12.0 [facility] Comment on above: Performed By: #### C BC ####[facility] [address] [place] [address]Dr. Ruthie Pan NEUT # 6.4 103/ul Normal 1.4-6.5 [facility] Comment on above: Performed By: #### C BC ####[facility] [address] [place], [place] [address]Dr. Ruthie Pan Neutrophils/100 WBC (Bld) 58.4 % Normal 43.0-75.0 [facility] Comment on above: Performed By: #### C BC ####[facility] [address] [place], [place] [address]Bz. Ruthie Pan Platelet mean volume (Bld) [Entitic vol] 10.7 fL Normal 9.5-13.5 [facility] Comment on above: Performed By: #### C BC ####[facility] [address] [place], [place] [address]Yx. Ruthie Pan PLT 207 103/ul Normal 150-450 [facility] Comment on above: Performed By: #### C BC ####[facility] [address] [place], [place] [address]In. Ruthie Pan RBC 3.95 106/ul Critically low 4.20-5.40 [facility] Comment on above: Performed By: #### C BC ####[facility] [address] [place], [place] [address]Sm. Ruthie Pan WBC 11.0 103/ul Normal 4.0-11.0 [facility] Comment on above: Performed By: #### C BC ####[facility] [address] [place], [place] [address]Nd. Ruth[address] Pan CT ABD/PELV W CONon 11-25-19 [...] LUDIN ANGELES Date: 2021-11-24 03:59 Normal [facility] LACTATE/LACTIC ACIDon 2021 Lactate [Moles/Vol] 1.0 mmol/L Normal 0.4-1.9 [facility] Comment on above: Performed By: #### L ACT #### [facility] [address] [place] [address] Dr. Ruthie Pan LIPASEon 11-24-2021 Lipase [Catalytic activity/Vol] 123.0 U/L Normal 73.0-393.0 [facility] Comment on above: Performed By: #### C MP, ROSALIA, LIPA #### [facility] [address] [place] [address] Dr. Ruthie Pan PROF 14(COMP METB)on 022 Albumin [Mass/Vol] 3.3 g/dL Critically low 3.4-5.0 [facility] Comment on above: Performed By: #### C MP, ROSALIA, LIPA #### [facility] [address] [place] [address] Dr. Ruthie Pan Albumin/Globulin [Mass ratio] 1.1 {ratio} Normal [facility] Comment on above: Performed By: #### C MP, ROSALIA, LIPA #### [facility] [address] [place] [address] Dr. Ruthie Pan ALP [Catalytic activity/Vol] 139 U/L Critically high 46-116 [facility] Comment on above: Performed By: #### C MP, ROSALIA, LIPA #### [facility] [address] [place] [address] Dr. Ruthie Pan ALT [Catalytic activity/Vol] 17 U/L Normal 14-59 [facility] Comment on above: Performed By: #### C MP, ROSALIA, LIPA #### [facility] [address] [place] [address] Dr. Ruthie Pan Anion gap [Moles/Vol] 10.5 mmol/L Normal [facility] Comment on above: Performed By: #### C MP, ROSALIA, LIPA #### [facility] [address] [place] [address] Dr. Ruthie Pan AST [Catalytic activity/Vol] 14 U/L Critically low 15-37 [facility] Comment on above: Performed By: #### C NARESH ROSALIA, LIPA #### [facility] [address] [place] [address] Dr. Ruthie Pan Bilirubin [Mass/Vol] 0.2 mg/dL Normal 0.2-1.0 [facility] Comment on above: Performed By: #### C MP ROSALIA, LIPA #### [facility] [address] [place] [address] Dr. Ruthie Pan Calcium [Mass/Vol] 8.3 mg/dL Critically low 8.5-10.1 [facility] Comment on above: Performed By: #### C NARESH ROSALIA, LIPA #### [facility] [address] [place] [address] Dr. Ruthie Pan Chloride [Moles/Vol] 103 mmol/L Normal 98-107 [facility] Comment on above: Performed By: #### C NARESH ROSALIA, LIPA #### [facility] [address] [place] [address] Dr. Ruthie Pan CO2 [Moles/Vol] 27.9 mmol/L Normal 21.0-32.0 [facility] Comment on above: Performed By: #### C NARESH ROSALIA, LIPA #### [facility] [address] [place] [address] Dr. Ruthie Pan Creatinine [Mass/Vol] 0.71 mg/dL Normal 0.55-1.02 [facility] Comment on above: Performed By: #### C NARESH ROSALIA, LIPA #### [facility] [address] [place] [address] Dr. Ruthie Pan EGFR-AF [place]THER[place] >60 Normal >=60 [facility] Comment on above: Performed By: #### C NARESH ROSALIA, LIPA #### [facility] [address] [place] [address] Dr. Ruthie Pan EGFR-NON AF [place] >60 Normal >=60 [facility] Comment on above: Performed By: #### C MP, ROSALIA, LIPA #### [facility] [address] [place] [address] Dr. Ruthie Pan Globulin (S) [Mass/Vol] 3.1 g/dL Normal [facility] Comment on above: Performed By: #### C ROSALIA INFANTE LIPA #### [facility] [address] [address] [address] Ruthie Pan Glucose [Mass/Vol] 113 mg/dL Critically high 74-106 [facility] Comment on above: Performed By: #### C ROSALIA INFANTE LIPA #### [facility] [address] [address] [address] Ruthie Pan Potassium [Moles/Vol] 3.4 mmol/L Critically low 3.5-5.1 [facility] Comment on above: Performed By: #### C ROSALIA INFANTE LIPA #### [facility] [address] [place] [address] Dr. Ruthie Pan Protein [Mass/Vol] 6.4 g/dL Normal 6.4-8.2 [facility] Comment on above: Performed By: #### C ROSALIA INFANTE LIPA #### [facility] [address] [place] [address] Dr. Ruthie Pan Sodium [Moles/Vol] 138 mmol/L Normal 136-145 [facility] Comment on above: Performed By: #### C ROSALIA INFANTE, LIPA #### [facility] [address] [place] [address] Dr. Ruthie Pan Urea nitrogen [Mass/Vol] 10.0 mg/dL Normal 7.0-18.0 [facility] Comment on above: Performed By: #### C ROSALIA INFANTE LIPA #### [facility] [address] [place] [address] Dr. Ruthie Pan Urea nitrogen/Creatinine [Mass ratio] 14.1 mg/mg Normal [facility] Comment on above: Performed By: #### C ROSALIA INFANTE LIPA #### [facility] [address] [place] [address] Dr. Ruthie Pan US SINGLE QUAD RT [...] fluid, gallbladder sludge or cholelithiasis. Negative sonographic Sladivar sign. The common bile duct measures 1.6 mm. The visualized pancreas is normal in appearance. The right kidney measures 9.6 x 4.8 x 4.0 cm. Along the inferior poles area of anechoic echogenicity measuring 2.3 cm, simple cyst. The cortex measures 1.1 cm thick. IMPRESSION: No acute abnormality Electronically authenticated by: MILE BENITEZ Date: 2021-11-24 07:56 Normal [facility] XR SHOULDER RT 2V or >on XR [...] by: Austin VENTURA Date: 2021-11-21 02:37 Normal [facility] Vital Signs Date Time Vital Sign Value Performing Clinician Facility 09-29-2024 11:00-0400 Body temperature 98.5 [degF] Rufina DEGROOT Work Phone: [facility] 09-29-2024 11:00-0400 Diastolic blood pressure 68 mm[Hg] Rufina DEGROOT Work Phone: [facility] 09-29-2024 11:00-0400 Heart rate 72 /min Rufina DEGROOT Work Phone: [facility] 09-29-2024 11:00-0400 Respiratory rate 18 /min Rufina Rubio [employer] Work Phone: [facility] 09-29-2024 11:00-0400 SaO2% (BldA) [Mass fraction] 99 % Rufina Rubio [employer] Work Phone: [facility] 09-29-2024 11:00-0400 Systolic blood pressure 136 mm[Hg] Rufina Rubio [employer] Work Phone: [facility] 08-14-2024 10:48-0500 Body height 157.5 cm Michael Brown DO Work Phone: [facility] 08-14-2024 10:48-0500 Body mass index (BMI) [Ratio] 22.68 kg/m2 Michael Brown DO Work Phone: [facility] 08-14-2024 10:48-0500 Body weight 56.25 kg Michael Brown DO Work Phone: [facility] 06-27-2024 15:17-0500 Body height 157.5 cm Michael Brown DO Work Phone: [facility] 06-27-2024 15:17-0500 Body mass index (BMI) [Ratio] 22.68 kg/m2 Michael Brown DO Work Phone: [facility] 06-27-2024 15:17-0500 Body weight 56.25 kg Michael Brown DO Work Phone: [facility] 05-30-2024 15:15-0500 Body height 157.5 cm Michael Brown DO Work Phone: [facility] 05-30-2024 15:15-0500 Body mass index (BMI) [Ratio] 22.68 kg/m2 Michael Brown DO Work Phone: [facility] 05-30-2024 15:15-0500 Body weight 56.25 kg Michael Brown DO Work Phone: [facility] 05-19-2024 12:20-0500 Body temperature 98.06 [degF] Michael Henderson [facility] 05-19-2024 12:20-0500 Diastolic blood pressure 71 mm[Hg] Michael Henderson [facility] 05-19-2024 12:20-0500 Heart rate 65 /min Michael Henderson [facility] 05-19-2024 12:20-0500 Mean blood pressure 86 mm[Hg] Michael Henderson [facility] 05-19-2024 12:20-0500 Respiratory rate 16 /min Micheal Henderson [facility] 05-19-2024 12:20-0500 SaO2% (BldA) [Mass fraction] 100 % Michael Henderson [facility] 05-19-2024 12:20-0500 Systolic blood pressure 117 mm[Hg] Michael Henderson [facility] 05-19-2024 11:34-0500 Heart rate 77 /min Michael Henderson [facility] 05-19-2024 11:34-0500 SaO2% (BldA) [Mass fraction] 99 % Michael Henderson [facility] 05-19-2024 11:34-0500 Diastolic blood pressure 62 mm[Hg] Michael Henderson [facility] 05-19-2024 11:34-0500 Mean blood pressure 85 mm[Hg] Michael Henderson [facility] 05-19-2024 11:34-0500 Systolic blood pressure 131 mm[Hg] Michael Henderson [facility] 05-19-2024 11:25-0500 Blood Pressure Location Michael Henderson [facility] 05-19-2024 11:25-0500 Body temperature 97.88 [degF] Michael Henderson [facility] 05-19-2024 11:25-0500 Diastolic blood pressure 84 mm[Hg] Michael Henderson [facility] 05-19-2024 11:25-0500 Heart rate 61 /min Michael Henderson [facility] 05-19-2024 11:25-0500 Mean blood pressure 105 mm[Hg] Michael Henderson [facility] 05-19-2024 11:25-0500 Respiratory rate 17 /min Michael Henderson [facility] 05-19-2024 11:25-0500 SaO2% (BldA) [Mass fraction] 100 % Michael Henderson [facility] 05-19-2024 11:25-0500 Systolic blood pressure 148 mm[Hg] Michael Henderson [facility] 05-19-2024 11:15-0500 Blood Pressure Location Michael Henderson [facility] 05-19-2024 11:15-0500 Mean blood pressure 91 mm[Hg] Michael Henderson [facility] 05-19-2024 11:15-0500 Respiratory rate 20 /min Michael Henderson [facility] 05-19-2024 10:42-0500 Body temperature 97.16 [degF] Michael Henderson [facility] 05-19-2024 10:40-0500 Respiratory rate 3 /min Michael Henderson [facility] 05-19-2024 10:35-0500 Respiratory rate 21 /min Michael Henderson [facility] 05-19-2024 06:41-0500 Mean blood pressure 89 mm[Hg] Michael Brown [facility] 05-19-2024 06:40-0500 Body temperature 97.7 [degF] Michael Henderson [facility] 05-19-2024 06:40-0500 Mean blood pressure 90 mm[Hg] Michael Brown [facility] 05-04-2024 14:14-0400 Diastolic blood pressure 78 mm[Hg] Michael Brown [facility] 05-04-2024 14:14-0400 Heart rate 66 /min Michael Brown [facility] 05-04-2024 14:14-0400 Mean blood pressure 91 mm[Hg] Michael Brown [facility] 05-04-2024 14:14-0400 Systolic blood pressure 118 mm[Hg] Michael Brown [facility] 05-04-2024 14:14-0400 Respiratory rate 18 /min Michael Brown [facility] 05-04-2024 14:14-0400 Heart rate 70 /min Michael Brown [facility] 05-04-2024 14:14-0400 SaO2% (BldA) [Mass fraction] 100 % Michael Henderson [facility] 05-04-2024 14:14-0400 Diastolic blood pressure 62 mm[Hg] Michael Brown [facility] 05-04-2024 14:14-0400 Mean blood pressure 77 mm[Hg] Michael Brown [facility] 05-04-2024 14:14-0400 Systolic blood pressure 108 mm[Hg] Michael Brown [facility] 05-04-2024 13:28-0400 Body height 157.5 cm Michael Brown DO Work Phone: [facility] 05-04-2024 13:28-0400 Body mass index (BMI) [Ratio] 22.68 kg/m2 Michael Brown DO Work Phone: [facility] 05-04-2024 13:28-0400 Body temperature 97.39 [degF] Michael Brown DO Work Phone: [facility] 05-04-2024 13:28-0400 Body weight 56.25 kg Michael Brown DO Work Phone: [facility] 04-06-2024 15:04-0400 Body height 157.5 cm Michael Brown DO Work Phone: [facility] 04-06-2024 15:04-0400 Body mass index (BMI) [Ratio] 22.68 kg/m2 Michael Brown DO Work Phone: [facility] 04-06-2024 15:04-0400 Body weight 56.25 kg Michael Brown DO Work Phone: [facility] 03-07-2024 11:08-0400 Body height 157.5 cm Michael Brown DO Work Phone: [facility] 03-07-2024 11:08-0400 Body mass index (BMI) [Ratio] 22.68 kg/m2 Michael Brown DO Work Phone: [facility] 03-07-2024 11:08-0400 Body weight 56.25 kg Michael Brown DO Work Phone: [facility] 07-23-2022 00:20-0500 Diastolic blood pressure 65 mm[Hg] [facility] Work Phone: [facility] 07-23-2022 00:20-0500 Heart rate 89 /min Services [facility] Work Phone: [facility] 07-23-2022 00:20-0500 Respiratory rate 18 /min Services [facility] Work Phone: [facility] 07-23-2022 00:20-0500 SaO2% (BldA) [Mass fraction] 99 % [facility] Work Phone: [facility] 07-23-2022 00:20-0500 Systolic blood pressure 103 mm[Hg] [facility] Work Phone: [facility] 07-22-2022 19:43-0500 Body height 154.94 cm Services [employer] Work Phone: [facility] 07-22-2022 19:43-0500 Body temperature 98.4 [degF] Services [facility] [employer] Work Phone: [facility] 07-22-2022 19:43-0500 Body weight 64 kg Services [employer] Work Phone: [facility] 11-23-2021 23:23-0400 Body temperature 98.06 [degF] Venancio Ernesto [facility] 11-23-2021 23:23-0400 Diastolic blood pressure 63 mm[Hg] Venancio Ernesto [facility] 11-23-2021 23:23-0400 Heart rate 81 /min Venancio Ernesto [facility] 11-23-2021 23:23-0400 Respiratory rate 16 /min Venancio Ernesto [facility] 11-23-2021 23:23-0400 SaO2% (BldA) [Mass fraction] 97 % Venancio Ernesto [facility] 11-23-2021 23:23-0400 Systolic blood pressure 102 mm[Hg] Venancio Ernesto [facility] Encounters Encounter Date Encounter Type Care Provider Facility Start: 11-14-2024 End: 11-14-2024 ambulatory Akbar Philippe Facility:[facility] Start: 11-14-2024 End: 11-14-2024 Patient encounter procedure Akbar Philippe [facility] Start: 09-29-2024 End: 09-29-2024 Patient encounter procedure Rufina Ramiro [employer] Work Phone: [facility] Start: 09-29-2024 End: 09-29-2024 ambulatory Rufina Maria Guadalupe Rubio [employer] TE[employer]C Work Phone: [facility] Work Phone: Start: 09-22-2024 End: 09-22-2024 Patient encounter procedure Rufina Ramiro [employer] TE[employer]C Work Phone: [facility] Work Phone: Start: 09-22-2024 End: 09-22-2024 ambulatory Rufina Maria Guadalupe Rubio [employer] Work Phone: [facility] Work Phone: Start: 09-20-2024 End: 09-20-2024 Patient encounter procedure Rufina Ramiro [employer] TE[employer]C Work Phone: [facility] [place] Work Phone: Start: 09-20-2024 End: 09-20-2024 ambulatory Rufina Maria Guadalupe Rubio [employer] TE[employer]C Work Phone: [facility] Work Phone: Start: 08-22-2024 End: [...] 08-10-2024 End: 08-10-2024 Bamboo flowsheet Jadiel Danilo [employer] [facility] Start: 08-10-2024 End: 08-10-2024 Bamboo flowsheet Jadiel Danilo [employer] [facility] Start: 08-10-2024 End: 08-10-2024 ambulatory Jadiel Danilo [employer] [facility] Comment on above: S/P arthroscopy of r ight shoulder (Primary Dx); Acute pain of right shoulder Start: 08-07-2024 End: 08-07-2024 Bamboo flowsheet Jadiel Danilo [employer] [facility] Start: 08-07-2024 End: 08-07-2024 Bamboo flowsheet Jadiel Danilo [employer] [facility] Start: 08-07-2024 End: 08-07-2024 ambulatory Jadiel Danilo [employer] [facility] Comment on above: S/P arthroscopy of r ight shoulder (Primary Dx); Acute pain of right shoulder Start: 08-04-2024 End: 08-04-2024 ambulatory Rufina Rubio Facility:[facility] Start: 08-04-2024 End: 08-04-2024 Patient encounter procedure Rufina Rubio [employer] TE[employer]C Work Phone: [facility] Start: 08-03-2024 End: 08-03-2024 Bamboo flowsheet Jadiel Danilo [employer] [facility] Start: 08-03-2024 End: 08-03-2024 Bamboo flowsheet Jadiel Danilo [employer] [facility] Start: 08-03-2024 End: 08-03-2024 ambulatory Jadiel Danilo [employer] [facility] Comment on above: S/P arthroscopy of r ight shoulder (Primary Dx); Acute pain of right shoulder Start: 07-24-2024 End: 07-24-2024 Bamboo flowsheet Jadiel Danilo [employer] [facility] Start: 07-24-2024 End: 07-24-2024 Bamboo flowsheet Jadiel Samuel [employer] [facility] Start: 07-24-2024 End: 07-24-2024 ambulatory Jadiel Samuel [employer] [facility] Comment on above: S/P [...] CI PT Start: 07-11-2024 End: 07-11-2024 ambulatory Janye Cox PT [facility] Comment on [...] to same day surgery center Michael Henderson [facility] Start: 05-19-2024 End: 05-19-2024 ambulatory Michael Henderson Facility:[facility] Start: 05-04-2024 End: 05-04-2024 Patient encounter procedure Michael Henderson [facility] Comment on above: Traumatic incomplete tear of right rotator cuff, subsequent encounter (Primary Dx) Start: 05-04-2024 End: 05-04-2024 ambulatory DO Michael Henderson Facility:[facility] Start: 04-06-2024 End: 04-06-2024 Patient encounter procedure [...] Start: 02-02-2024 End: 02-02-2024 ambulatory Rufina Rubio [facility] Work Phone: Start: 02-02-2024 End: 02-02-2024 Departed Referred [employer] TE[employer] Rufina Rubio Work Phone: [facility] Start: 02-02-2024 Encounter for gynecological examination (general) (routine) without abnormal findings Rufina Rubio [facility] Start: 01-31-2024 End: 01-31-2024 ambulatory MARICRUZ ARREOLA Not Available Start: 01-25-2024 End: 01-25-2024 ambulatory MICHAEL HENDERSON Not Available Start: 09-28-2023 End: 09-28-2023 ambulatory Services [facility] Work Phone: [facility] Work Phone: Start: 09-28-2023 End: 09-28-2023 Departed Referred Services [facility] Work Phone: [facility] Start: 08-26-2023 Chart abstracting Jenaro davis DPM Work Phone: [facility] Start: 06-29-2023 End: 06-29-2023 ambulatory DPM Jenaro Galeana Work Phone: [facility] Work Phone: Start: 06-29-2023 End: 06-29-2023 Departed Referred DPM Jenaro Galeana Work Phone: [facility] Start: 05-26-2023 End: 05-26-2023 ambulatory [employer] TE[employer]C Rufina Rubio Work Phone: [facility] Work Phone: Start: 05-26-2023 End: 05-26-2023 Departed Referred [employer] Rufina Rubio Work Phone: [facility] [place] Work Phone: Start: 03-19-2023 End: 03-19-2023 ambulatory [employer] TE[employer]C Rufina Rubio Work Phone: [facility] Work Phone: Start: 03-19-2023 End: 03-19-2023 Departed Referred [employer] TE[employer]C Rufina Rubio Work Phone: [facility] Start: 12-08-2022 End: 12-08-2022 Patient encounter procedure Adam ERICKSON [facility] Start: 11-16-2022 End: 11-16-2022 ambulatory POL[employer] TE[employer]C Rufina Rubio Work Phone: [facility] Work Phone: Start: 11-16-2022 End: 11-16-2022 Departed Referred [employer]MER TE[employer]-C Rufina Rubio Work Phone: [facility] [place] Work Phone: Start: 10-04-2022 End: 10-04-2022 ambulatory [facility]: Start: 09-21-2022 End: 09-21-2022 ambulatory NON STAFF [facility] Work Phone: Start: 09-21-2022 End: 09-21-2022 Departed Referred [employer] TE[employer]-C Rufina Rubio Work Phone: [facility] Start: 08-31-2022 End: 08-31-2022 Departed Referred [employer] TE[employer] Rufina Rubio Work Phone: [facility] Start: 07-22-2022 End: 07-23-2022 Emergency department patient visit Services [facility] Work Phone: [facility] Work Phone: Start: 07-21-2022 End: 07-21-2022 ambulatory [facility] Facility:[facility] Start: 07-20-2022 End: 07-20-2022 ambulatory POLYMER TESTER-C Rufina Chewson Work Phone: [facility] Work Phone: Start: 07-20-2022 End: 07-20-2022 Departed Referred [employer]YMER TE[employer]-C Rufina Ramiro Work Phone: [facility] Start: 06-24-2022 End: 06-24-2022 ambulatory [facility] Facility:[facility] Start: 06-09-2022 End: 06-09-2022 ambulatory [facility] Work Phone: [facility] Work Phone: Start: 06-09-2022 End: 06-09-2022 Departed Referred Services [facility] Work Phone: [facility] Start: 04-14-2022 End: 04-14-2022 ambulatory [facility] Work Phone: [facility] Work Phone: Start: 04-14-2022 End: 04-14-2022 Departed Referred Services [facility] Work Phone: [facility] Start: 04-08-2022 End: 04-09-2022 ambulatory [facility] Facility:[facility] Start: 11-24-2021 End: 11-24-2021 ambulatory [facility] Facility:[facility] Start: 11-23-2021 End: 11-24-2021 Emergency department patient visit Venancio Orozco [facility] Start: 11-21-2021 End: 11-21-2021 ambulatory [facility] Facility:[facility] Start: 11-06-2021 End: 11-06-2021 ambulatory [facility] Facility:[facility] Procedures Date Procedure Procedure Detail Performing Clinician Start: 09-29-2024 Mammography of right breast Rufina Rubio [employer] Work Phone: Start: 09-29-2024 Ultrasonography guid ed biopsy of right breast Rufina Rubio [employer] Work Phone: Start: 09-22-2024 Bilateral mammography J vic Rubio [employer] TE[employer]C Work Phone: Start: 09-22-2024 Ultrasonography of b ilateral breasts Rufina Rubio [employer] Work Phone: Start: 09-20-2024 Pelvic echography Denisa Rubio [employer] TE[employer] Work Phone: Start: 09-20-2024 US scan of bladder Larissa Rubio [employer] Work Phone: Start: 09-20-2024 Transvaginal echography Rufina Rubio [employer] Work Phone: Start: 08-04-2024 Urine culture Rufina Rubio [employer] Work Phone: Start: 05-30-2024 Radex shoulder compl ete minimum 2 views Michael Henderson DO Work Phone: Start: 05-19-2024 Arthroscopy of shoulder Michael Henderson Start: 05-26-2023 Aerobic microbial culture DPM Jenaro Lissett Work Phone: Start: 08-31-2022 Urine culture [employer] Larissa Rubio Work Phone: Start: 07-22-2022 Computed tomography of abdomen and pelvis with contrast POL[employer]MER TE[employer] Rufina Rubio Work Phone: Start: 07-22-2022 US scan of gallbladder [employer]YMER TE[employer] Rufina Rubio Work Phone: Start: 07-20-2022 Urine culture Services [facility] Work Phone: Start: 06-09-2022 Urine culture POLYMER TESTER[employer]C Larissa Chewson Work Phone: Start: 11-19-2021 Arthroscopy of shoulder Venancio Orozco Urine culture Services [facility] Work Phone: Vaginal hysterectomy Venancio knox Plan of Treatment Date Care Activity Detail Author Start: 10-16-2024 End: 10-16-2024 Patient encounter procedure 10/16/2024 8:15 AM EDT Office Visit [facility] [address] [place] [id number] Michael Henderson, DO [address] [place] [address] [facility] Start: 09-29-2024 [facility] Start: 08-18-2024 End: 08-18-2024 ambulatory 08/18/2024 10:30 AM EST Treatment [facility] [address] [facility] [address] [place] [address] Janey Cox, PT [facility] Start: 08-17-2024 End: 08-17-2024 ambulatory 08/17/2024 10:30 AM EST Treatment [facility] [address] [facility] [address] [place] [address] Jadiel Samuel, WIRE DROPPER [facility] Start: 08-15-2024 End: 08-15-2024 ambulatory 08/15/2024 12:30 PM EST Treatment [facility] [address] [facility] [address] [place] [address] Janey Cox, PT [facility] Start: 08-14-2024 End: 08-14-2024 Patient encounter procedure [facility] Comment on above: Arrived Start: 08-10-2024 End: 08-10-2024 ambulatory 08/10/2024 10:30 AM EST Treatment [facility] [address] [facility] [address] [place] [address] Janey Cox, PT [facility] Start: 08-07-2024 End: 08-07-2024 ambulatory [facility] Comment on above: Arrived Start: 08-03-2024 End: 08-03-2024 ambulatory [facility] Comment on above: Arrived Start: 07-31-2024 End: 07-31-2024 ambulatory 07/31/2024 10:30 AM EST Treatment [facility] [address] [place] [address] Jadiel Samuel, WIRE DROPPER [facility] Start: 07-27-2024 End: 07-27-2024 ambulatory 07/27/2024 10:30 AM EST Treatment [facility] [address] [place] [address] Janey Cox, PT [facility] Start: 07-24-2024 End: 07-24-2024 ambulatory [facility] Comment on above: S/P arthroscopy of r ight shoulder (Primary Dx); Acute pain of right shoulder Start: 07-20-2024 End: 07-20-2024 ambulatory 07/20/2024 10:30 AM EST Treatment [facility] [address] [facility] [address] [place] [address] Jadiel Samuel, WIRE DROPPER [facility] Start: 07-17-2024 End: 07-17-2024 ambulatory 07/17/2024 10:30 AM EST Treatment [facility] [address] [facility] [address] [place] [address] Jadiel Samuel, WIRE DROPPER [facility] Start: 07-13-2024 End: 07-13-2024 ambulatory 07/13/2024 1:00 PM EST Treatment [facility] [address] [facility] [address] [place] [address] Parvin Adkins, PT [address] [place] [id number] [facility] Start: 07-11-2024 End: 07-11-2024 ambulatory [facility] Comment on above: S/P arthroscopy of r ight shoulder Start: 07-04-2024 End: 07-04-2024 ambulatory 07/04/2024 7:00 AM EST Evaluation [facility] [address] [place] [address] Janey Cox, PT [facility] Start: 06-27-2024 End: 06-27-2024 Patient encounter procedure [facility] Comment on above: Arrived Start: 05-30-2024 End: 05-30-2024 Patient encounter procedure 05/30/2024 3:15 PM EST Office Visit [facility] [address] [place] [address] Michael Henderson, DO [address] [place] [address] [facility] Start: 05-04-2024 End: 05-04-2024 Patient encounter procedure 05/04/2024 1:30 PM EDT Office Visit [facility] [address] [place] [address] Michael Henderson, DO [address] [place] [address] [facility] Start: 04-06-2024 End: 04-06-2024 Patient encounter procedure 04/06/2024 2:30 PM EDT Office Visit [facility] [address] [place] [address] Michael Henderson, DO [address] [place] [address] Arrived [facility] Comment on above: Arrived Start: 03-12-2024 Influenza vaccination Influenza Vacc ine (#1) [facility] Start: 03-07-2024 End: 03-07-2024 Patient encounter procedure 03/07/2024 10:30 AM EDT Office Visit [facility] [address] [place] [address] Michael Henderson, DO [address] [place] [address] Arrived [facility] Comment on above: Arrived Start: 02-02-2024 [facility] Start: 09-28-2023 Bacteria identified in Urine by Culture Urine Culture [facility] Start: 08-26-2023 End: 08-26-2023 Patient encounter procedure 08/26/2023 9:00 AM EST Procedure Visit [facility] [address] [place] [address] Jenaro Galeana, DPM [address] [place] [address] [facility] Start: 06-29-2023 Bacteria identified in Urine by Culture [facility] Start: 05-26-2023 Superficial Wound Culture Superficial Wound Culture [facility] Start: 07-22-2022 Computed tomography of abdomen and pelvis with contrast CT abdomen pelvis w con [facility] Start: 07-22-2022 CT Abdomen and Pelvi s W contrast IV [facility] Start: 07-22-2022 US Gallbladder [facility] Start: 07-22-2022 US scan of gallbladder US gall bladd er [facility] Start: 07-20-2022 Bacteria identified in Urine by Culture Urine Culture [facility] Start: 2017 Screening for malign ant neoplasm of breast Mammogram [facility] Start: 10-13-2007 Screening for malign ant neoplasm of cervix [facility] Start: 1998 Screening for malign ant neoplasm of cervix Pap Smear [facility] Start: 1977 Screening for malign ant neoplasm of colon [facility] Atopobium vaginae DN A [Presence] in Vaginal fluid by MICHAEL with probe detection [facility] Bacteria identified in Urine by Culture [facility] Bacterial vaginosis associated bacterium 2 DNA [Presence] in Vaginal fluid by MICHAEL with probe detection [facility] Chlamydia trachomati s rRNA [Presence] in Cervix by MICHAEL with probe detection [facility] Human papilloma viru s 16+18+31+33+35+39+45+51+ 52+56+58+59+66+68 DNA [Presence] in Cervix by Probe with signal amplification [facility] Human papilloma viru s 16+18+31+33+35+39+45+51+ 52+56+58+59+68 DNA [Presence] in Cervix by Probe with signal amplification [facility] Megasphaera sp type 1 DNA [Presence] in Vaginal fluid by MICHAEL with probe detection [facility] Neisseria gonorrhoea e rRNA [Presence] in Cervix by MICHAEL with probe detection [facility] Patient Education Abdominal Pain , Adult ED [facility] Work Phone: Patient referral [facility] Work Phone: Payers Date Payer Category Payer Self-pay [id number] 2023 Medicaid [id number] 1975 Unknown [id number] 2.16.840.1.161945.3.579.2.59 3 1977 Unknown [id number] 2.16.840.1.776049.3.579.2.59 3 1977 Unknown [id number] 2.16.840.1.704495.3.579.2.59 3 1977 Unknown [id number] 2.16.840.1.930456.3.579.2.59 3 1977 Unknown [id number] 2.16.840.1.931294.3.579.2.59 3 1977 Unknown [id number] 2.16.840.1.207822.3.579.2.59 3 1977 Unknown [id number] 2.16.840.1.968528.3.579.2.59 3 1977 Unknown [id number] 2.16.840.1.248632.3.579.2.72 7 1977 Unknown [id number] 2.16.840.1.563611.3.579.2.12 1977 Unknown [id number] 2.16.840.1.121721.3.579.2.12 1977 Unknown [id number] 2.16.840.1.902849.3.579.2.12 1977 Unknown [id number] 2.16.840.1.931749.3.579.2.12 1977 Unknown [id number] 2.16.840.1.859112.3.579.2.12 1977 Unknown [id number] 2.16.840.1.839111.3.579.2.12 1977 Unknown [id number] 2.16.840.1.041802.3.579.2.12 1977 Unknown [id number] 2.16.840.1.578632.3.579.2.12 1977 Unknown [id number] 2.16.840.1.432321.3.579.2.12 1977 Unknown [id number] 2.16.840.1.724012.3.579.2.12 1977 Unknown [id number] 2.16.840.1.107906.3.579.2.12 1977 Unknown [id number] 2.16.840.1.798003.3.579.2.12 1977 Unknown [id number] 2.16.840.1.607451.3.579.2.12 1977 Unknown [id number] 2.16.840.1.569866.3.579.2.12 1977 Unknown [id number] 2.16.840.1.256873.3.579.2.12 1977 Unknown [id number] 2.16.840.1.865849.3.579.2.12 1977 Unknown [id number] 2.16.840.1.776580.3.579.2.72 7 1977 Unknown [id number] 2.16.840.1.832511.3.579.2.72 7 1957 Medicaid [id number] 1957 Medicaid [id number] Private Health Insurance [id number] Unknown Ken Wright [facility] [id number] Unknown [id number] 2.16.840.1.118810.3.579.2.53 1 Unknown [id number] 2.16.840.1.922846.3.579.2.53 1 Unknown [id number] 2.16.840.1.980960.3.579.2.53 1 Unknown [id number] 2.16.840.1.649144.3.579.2.53 1 Unknown [id number] 2.16.840.1.414673.3.579.2.53 1 Social History Date Type Detail Facility Start: 11-11-2020 End: 10-27-2022 Tobacco smoking status Heavy tobacco smoker (finding) [facility] Start: 05-26-2023 End: 08-14-2024 Sex Assigned At Female [facility] Start: 12-16-2020 End: 09-29-2024 Tobacco smoking status NHIS Smoker (finding) [facility] Start: 1975 Sex Assigned At Female [facility] Tobacco smoking status Never [facility] Start: 07-12-1994 End: 01-25-2024 Tobacco smoking status [facility] Smokes tobacco daily [facility] Start: 07-12-1994 History of tobacco use Cigarette Smoker [facility] Start: 08-19-2023 End: 08-14-2024 Cigarettes smoked current (pack per day) - Reported 0.5 [facility] Start: 08-19-2023 Alcohol intake Not Asked [facility] Start: 05-25-2023 Tobacco Comment Smokes 6-10 cigs/day. [facility] Start: 05-25-2023 Alcohol Comment caffeine intake: 2-3 cups per day. [facility] Start: 05-25-2023 Gender identity Identifies as female gender (finding) [facility] Start: 05-25-2023 Sexual orientation Heterosexual (finding) [facility] Start: 01-25-2024 Tobacco use and exposure Smokeless tobacco non-user [facility] Start: 05-04-2024 End: 08-14-2024 Alcoholic beverage intake Ex-drinker (finding) [facility] Start: 10-23-2009 End: 09-21-2024 Sex Female (finding) [facility] Sexual Orientation [facility] Medical Equipment Procedure Code Equipment Code [...] Assessment Result Facility 05-04-2024 Functional Status No [facility] Clinical Notes 11-23-2021 to 09-29-2024 Note Date & Type Note Facility 09-29-2024 Evaluation note Diagnosis Onset Date Resolution Breast mass, right acute September 29, 2024 10:43am [facility] Work Phone: 1(772) 764-136203-21-2025 Radiology Diagnostic study [facility] [place] [address] [place] [address] Ultrasound Report Signed Patient: Archana Joy MR#: [id number] : 1975 Acct:[id number] Age/Sex: 48 / F ADM Date: 5 Loc: [facility] Room: Type: [facility] Attending Dr: Rufina Rubio POLYMER TESTER-C Ordering Provider: Rufina Rubio Date of Service: 09/29/24 US/US biopsy RT 1st lesion guid: R92.8 ([id number]) MM/MM post biopsy RT w/CAD: CLIP PLACEMENT [...] Dara Hardy M.D.09/29/2024 11:50 AM Dictation Location: [facility] Tech: Funmilayo Cortez Transcribed By: JORGE 09/29/24 1150 Dictated By: Dara Hardy MD 09/29/24 1102 Signed By: 09/29/24 7023 [facility] Work Phone: 1(205) 918-575303-14-2025 Radiology Diagnostic study [facility] [place] [address] [place] [address] Ultrasound Report Signed Patient: Archana Joy MR#: [id number] : 1975 Acct:[id number] Age/Sex: 48 / F ADM Date: 5 Loc: [place] Room: Type: [facility] Attending Dr: Rufina Rubio POLYMER TESTER-C Ordering Provider: Rufina Rubio Date of Service: 09/22/24 US/US breast BI limited: Breast lump in female;Breastcancer screening bymammogram ([id number]) MM/MM diagnostic mammo BI w/CAD: Breast lump [...] Gold Jr., LuzOGideon09/22/2024 10:15 AM Dictation Location: [facility] Tech: Zo [facility] hospital[facility]ity; Shauna Woodall Transcribed By: JORGE 09/22/24 1015 Dictated By: Joe Gold Jr, DO 09/22/24 1000 Signed By: 09/22/24 1015 [facility]03-12-2025 Radiology Diagnostic study note [facility] [place] [address] [place] [address] Ultrasound Report Signed Patient: Archana Joy MR#: [id number] : 1975 Acct:[id number] Age/Sex: 48 / F ADM Date: 5 Loc: Room: Type: [facility] Attending Dr: Rufina Rubio POLYMER TESTER-C Ordering Provider: Rufina Rubio Date of Service: 09/20/24 US/US pelvic complete: Recurrent UTI;Pelvic pain in female ([id number]) US/US transvaginal: PELIVIC PAIN IN FEMALE Copies [...] Gold Jr., D.O.09/20/2024 1:50 PM Dictation Location: [facility] Tech: Bethany Neeta Transcribed By: PWS 09/20/24 1350 Dictated By: Joe Gold Jr, DO 09/20/24 1348 Signed By: 09/20/24 1350 [facility]03-12-2025 Radiology Diagnostic study note [facility] [place] [address] [place] [address] Ultrasound Report Signed Patient: Archana Joy MR#: [id number] : 1975 Acct:[id number] Age/Sex: 48 / F ADM Date: 5 Loc: Room: Type: [facility] Attending Dr: Rufina Rubio POLYMER TESTER-C Ordering Provider: Rufina Rubio Date of Service: [...] Gold Jr., D.O.09/20/2024 1:48 PM Dictation [facility] Tech: Bethany Santacruz Transcribed By: PWS 09/20/24 1348 Dictated By: Joe Gold Jr, DO 09/20/24 1348 Signed By: 09/20/24 1348 [facility]02-18-2025 Telephone encounter Note* Telephone Encounter - Belinda Buckner - 08/29/2024 8:41 AM EST Called and informed Dr. Beatriz Reyes's nurse, of attempts; she said she'd inform Dr. Henderson. [facility] [id number] Miscellaneous Notes* Telephone Encounter - Belinda Buckner [...] final attempt. * Telephone Encounter - Belinda uBckner - 08/22/2024 10:40 AM EST Tried to contact to offer rs PT. She had seen Dr. Henderson on 08/14 for fu, then cx, NS, cx her PT's that followed. Requested a call back to check status and rs off providers recommendation. documented in this encounterNOMS [id number] Telephone encounter Note* Telephone Encounter - Belinda Buckner - 08/28/2024 1:30 PM EST Tried to contact but had to lm requesting call back dillon to verify status and if more PT is needed. Did include this is my final attempt. [facility] [id number] Telephone encounter Note* Telephone Encounter - Belinda Buckner - 08/22/2024 10:40 AM EST Tried to contact to offer rs PT. She had seen Dr. Henderson on 08/14 for fu, then cx, NS, cx her PT's that followed. Requested a call back to check status and rs off providers recommendation. [facility] [id number] History of Present illness Narrative* Michael Alistair [...] recently introduced to a new exercise involving gktoqa-pxv-vsam movements, which she reports has been progressively [...] note was created using voice recognition through [employer]. documented in this [facility]01-02-2025 Telephone encounter Note* Telephone Encounter - [...] on 1/9 or cx due to status. [facility] [id number] Miscellaneous Notes* Telephone Encounter - Belinda Buckner [...] cx due to status. documented in this [facility]12-17-2024 History of Present illness Narrative* Michael [...] She expresses readiness to resume rehabilitation at [facility], a facility she has previouslyutilized. She continues [...] note was created using voice recognition through [employer]. documented in this encounterParkland Health CenterXbcscgwyoa33-99-7358 History of Present illness Narrative* Michael Henderson [...] note was created using voice recognition through [employer]. documented in this encounterParkland Health CenterUmubrvkkrh36-42-6507 NoteProgress Note-Physician Patient: ARCHANA JOY Age: 48 years Sex: Female : 1975 Associated Diagnoses: None Author: Odilon ANSARI, Akbar Escobar Postoperative Information Postoperative disposition: Postoperative disposition: To PACU. Optimetrix number: Optimetrix number [id number]. Anesthetic utilized: General. Regional: Interscalene Block. Health [...] Discharge when meets criteria ( To home ).[facility]Comment [facility] above:Result Comment: Electronically Signed By: Akbar Donald MD\.br\Date and Time Signed: 05/19/24 15:55 EST 05-19-2024 Evaluation + Plan noteExtracted from: Title:ANES Post-operative Note---General Author: Akbar Donald MD Date:05/19/24 Plan Transfer/Discharge: Transfer/Discharge Discharge when meets criteria ( To home ). Extracted from: Title:ANES Pre-operative Note 2022 Author:Akbar Felton Date:05/18/24 Plan [place] [employer] Anesthesiologists (ASA) physical status classification: Class III. Anesthetic Preoperative Plan: Anesthesia General. Regional interscalene brachial plexus block. [facility] 11-08-2024 Hospital Discharge instructions Patient Education 05/19/2024 11:08:40 Shoulder Cryocuff Patient Instructions - FT (CUSTOM) 05/19/2024 11:08:28 Post Op Patient Instructions - FT (CUSTOM) 05/19/2024 07:57:19 Jessica Henderson - After Your Shoulder Arthroscopy (Custom) [place], [place] [facility] AFTER YOUR SHOULDER ARTHROSCOPY [...] your appointment. Michael Henderson, DO [facility] [address] [place] [address] [phone] Reviewed: Follow Up Care 04/06/2024 15:53:21 With:Michael Henderson Address: [address] [place], [place] [address]- Business (1) When:05/30/2024 15:15:00 Comments:Call for any problems. [facility] 11-08-2024 NotePatient Education - Text [place], [place] [facility] AFTER YOUR SHOULDER ARTHROSCOPY [...] your appointment. Michael Henderson, DO [facility] [address] [place] [address] Reviewed: [facility]11-[facility]-20[facility] NoteProgress Note-Physician Patient: ARCHANA JOY [facility]: [id number] Age: 48 years Sex: Female : 1975 [...] Acute cystitis with hematuria / SNOMED CT 362449079 / Confirmed Bipolar disorder / SNOMED CT 61069336 / Confirmed Chronic obstructive lung disease / SNOMED CT 33371239 / Confirmed History of kidney stones / SNOMED CT 3976174563 / Confirmed Impingement syndrome of right shoulder / SNOMED CT 014078103 / Confirmed Recurrent UTI / SNOMED CT 642016039 / Confirmed Smoker 11-JAN-2014 12:37:00<$> / SNOMED CT [id number] / Confirmed Added secondary to documentation in Social History. Resolved: anxiety / SNOMED CT 91821686 Resolved: Depression / SNOMED CT 670773817 Resolved: Headache / SNOMED CT 17456680 Resolved: MIGRAINE / SNOMED CT 6422217122 Canceled: Acute back pain / SNOMED CT 754019797 Canceled: Acute UTI / SNOMED CT [id number] Canceled: Endometriosis / SNOMED CT 0420101941 Canceled: kidney stones / SNOMED CT 487207737 Canceled: Pancreatitis / SNOMED CT 016951008 Canceled: Vaginal discharge / SNOMED CT 754422270 Canceled: Vaginal pain / ICD-9-CM 625.9 Canceled: Vomiting / SNOMED CT 3144510931, Active Problems (7) Acute cystitis with hematuria Bipolar disorder Chronic obstructive lung disease History of kidney stones Impingement syndrome of right shoulder Recurrent UTI Smoker Histories Past Medical History: Resolved MIGRAINE (1217826631): Resolved. anxiety (64849790): Resolved. Headache (10975175): Resolved. Depression (916905150): Resolved. Family History: Kidney stones Sister Procedure history: Arthroscopy of shoulder (372385648) on 05/30/2021 at 45 Years. Vaginal hysterectomy (623732044). Social History Social & Psychosocial Habits Alcohol [...] review: No qualifying data available . Plan [place] [employer] Anesthesiologists (ASA) physical status classification: Class III. Anesthetic Preoperative Plan: Anesthesia General. Regional interscalene brachial plexus block.[facility] SystemComment on above:Result Comment: Electronically Signed By: dOilon ANSARI, Akbar Escobar\.br\Date and Time Signed: 05/19/24 08:18 [id number] History of Present illness Narrative* Michael Henderson, - 05/04/2024 1:30 PM EDT Images from the original note were not included. @ENCDATE@ Archana Joy is a 48 y.o. female who presents for No chief complaint on file. HPI: History of Present Illness The patient is a 48-year-old lqbmu-neen-ojjiszze female here to discuss moving forward with [...] rotation, resisted supination, or forward flexion. Negative Phoenix's. Negative Neer/Stone impingement. No tenderness over the [...] Ortho Exam Results MRI of the shoulder [facility] 04/03/2024 shows a high grade partial [...] note was created using voice recognition through [employer] artificial Bellabeat. documented in this encounterParkland Health CenterVxqnmfhylw08-31-1346 History of Present illness Narrative* Michael Henderson DO - 04/06/2024 2:30 PM EDT Images from the original note were not included. @MARIAADATE@ Archana Rufino is a 48 y.o. female who presents for Pain of the Right Shoulder HPI: History of Present Illness The patient is a 48-year-old tfkkc-rmuk-ncmkosgz female here today to follow up on [...] rotation, resisted supination, or forward flexion. Negative Phoenix's. Negative Neer/Stone impingement. No tenderness over the [...] Exam Results Imaging MRI of the shoulder [facility] 04/03/2024 shows a high grade partial [...] undergo presurgical testing upon her return from [place]. Surgery is scheduled for 05/19/2024. She is [...] note was created using voice recognition through [employer] artificial intelligence. documented in this encounterParkland Health CenterAardryzqfj03-02-4621 History of Present illness Narrative* Michael Henderson DO - 03/07/2024 10:30 AM EDT Images from the original note were not included. @ENCDATE@ Archana Rufino is a 48 y.o. female who presents for Pain of the Right Shoulder HPI: History of Present Illness The patient is a 48-year-old mmyxy-qtfn-atzgaewt female who is here today to follow up on her rightshoulder. She was prescribed oral prednisone and initiated physical therapy at her last visit on 01/25/2024. She reports no improvement in her condition. In the interim, she was hospitalized due to her COPD. During this time, she was administered steroids via her breathing machine. [place], returning home [...] rotation, resisted supination, or forward flexion. Negative Phoenix's. Negative Neer/Stone impingement. No tenderness over the AC joint. Negative cross-arm adduction. Negative Speed's and Yergason's. No instability. Ortho Exam Results ASSESSMENT AND PLAN: I reviewed the history, physical exam, diagnostic studies, and diagnosis with the patient. Assessment & Plan 1. AC joint arthropathy, right shoulder An MRI of the right shoulder has been ordered at the imaging center in [place]. She is advised to continue with exercises [...] note was created using voice recognition through [employer] artificial intelligence. documented in this encounterParkland Health CenterKwnyskoiye39-92-1649 Hospital Discharge instructions Patient Education 11/24/2021 00:26:31 [...] to strengthen the arm. General instructions Take oqla-eim-iotzwvd and prescription medicines only as told by [...] 04/07/2006 Document Revised: 01/10/2019 Document Reviewed: 01/10/2019 [employer] Patient Education 2020 [employer]. Follow Up Care 11/23/2021 23:20:28 With:Cande Hinds Address: [address] [place] [address]- Business (1) When:12/01/2021 only if needed [facility]05-15-2022 Evaluation + Plan noteExtracted from: Title:ED Note Author:Venancio Orozco DO Date :11/23/21 Acute pain of right shoulder (M25.511: Pain in right shoulder) Orders: acetaminophen-oxycodone, 1 tab(s), Tab, Oral, Once, Stop date 11/23/21 23:37:00 EDT, STAT, Start date 11/23/21 23:37:00 EDT Sling Apply XR Shoulder [facility] Future Appointments Appointment Date:05/19/2024 10:30:00 AM Scheduled Provider: Location:[facility] Appointment Type:Surgery FT [facility] Evaluation + Plan note Future Appointments Appointment Date:02/14/2025 10:00:00 AM Scheduled Provider: Location:.[facility] Appointment Type:US Abdominal/Pelvis (FT) Diagnostic Tests Pending * [facility] 11/14/24 Future Scheduled Tests Radiology* US Pelvis Non-OB Complete 02/14/25 * US Transvaginal Non-OB 02/14/[address] [facility] evaluation noteNo assessment information available [facility] Work Phone: Evaluation note* Diagnosis Traumatic [...] of right shoulder documented in this encounter [facility]* Diagnosis S/P arthroscopy of right shoulder- Primary Acute pain of right shoulder documented in this encounter [facility]* Diagnosis S/P arthroscopy of right shoulder- Primary Acute pain of right shoulder documented in this encounter [facility]* Diagnosis S/P arthroscopy of right shoulder- Primary documented in this encounter [facility] HealthcareHospital course Narrative No data available for this section [facility] Additional Instructions As we [...] from the other day did show an infection.[facility] Work Phone: Hospital Discharge instructions No data available for this section [facility] Progress note No data available for this section [facility] Reason for visit Narrative* Rehabilitation - Outpatient (Routine) - Authorized Specialty Diagnoses / Procedures Referred By Timothy t Referred To Contact Physical Therapy Diagnoses S/P arthroscopy of right shoulder Procedures DC OFFICE/OUTPATIENT [facility] Michael Henderson, DO [address] [place] [address] Phone: tel: fax: [facility] [address] [facility] [address] [place] [address] Phone: tel: fax: Referral ID Status Reason Start Date Expiration Date Visits Requested Visits Authorized [id number] Authorized Specialty Services Required 07/11/2024 29 29 [facility] for [facility] Narrative* Rehabilitation - Outpatient (Routine) - Authorized Specialty Diagnoses / Procedures Referred By Contac t Referred To Contact Physical Therapy Diagnoses S/P arthroscopy of right shoulder Procedures DC THER PX 1/> AREAS EACH 15 MIN NEUROMUSC REEDUCA DC THERAPEUTIC PX 1/> AREAS EACH 15 MIN EXERCISES DC MANUAL THERAPY TQS 1/> REGIONS EACH 15 MINUTES PHYS/OCC THERAPY SS Michael Henderson, DO [address] [facility] [place] [address] Phone: tel: fax: [facility] [address] [facility] [address] [place] [address] Phone: tel: fax: Referral ID Status Reason Start Date Expiration Date Visits Requested Visits Authorized [id number] Authorized Specialty Services Required 07/13/2024 07/11/2025 30 30 [facility] Healthcare Chief Complaint and Reason for [...] Active Brian Wood DO Attending Provider Active General Office Worker Relationship Specialty Start Date End Date Unallocated, [place] [address] PCP - General 05/26/23 Team Status: Inactive Member Role Status Dates Services Family Health Primary Care Provider Active Start: September 28, 2023 End: September 28, 2023 ZANE Corrales Attending Provider Active Start: September 27 024 End: September 28, 2023 Team Status: Inactive Member Role Status Dates ZANE Driscoll Attending Provide r Active Start: February 02, 2024 End: February 02, 2024 General Office Worker Relationship Specialty Start Date End Date Unallocated, Parker Rene MD [address] [place], [place] [address] [address] PCP - General 05/26/23 Rufina Rubio MD [address] [place] [address] Referring Physician Nurse Practitioner 01/06/24 General Office Worker Relationship Specialty Start Date End Date Unallocated, Parker Rene MD [facility] [place] [address] PCP - General 05/26/23 Rufina Rubio MD [address] [place] [address] Referring Physician Nurse Practitioner 01/06/24 General Office Worker Relationship Specialty Start Date End Date Unallocated, MD James Falcon[address] [place] [address] PCP - General 05/26/23 Rufina Rubio MD [address] [place] [address] Referring Physician Nurse Practitioner 01/06/24 General Office Worker Relationship Specialty Start Date End Date Unallocated, MD James [place] [address] PCP - General 05/26/23 Rufina Rubio MD [address] [place] [address] Referring Physician Nurse Practitioner 01/06/24 General Office Worker Relationship Specialty Start Date End Date Unallocated, Parker Rene MD [facility] [address] [facility] [place] [place] [address] PCP - General 05/26/23 Rufina Rubio MD [address] [place] [address] Referring Physician Nurse Practitioner 01/06/24 General Office Worker Relationship Specialty Start Date End Date Unallocated, Parker Rene MD [address] [facility] [place] [address] PCP - General 05/26/23 Rufina Rubio MD [address] [place] [address] Referring Physician Nurse Practitioner 01/06/24 General Office Worker Relationship Specialty Start Date End Date Unallocated, Parker Rene MD [facility] [place] [address] PCP - General 05/26/23 Rufina Rubio MD [address] [place] [address] Referring Physician Nurse Practitioner 01/06/24 General Office Worker Relationship Specialty Start Date End Date Unallocated, Parker Rene MD [facility] [place] [address] PCP - General 05/26/23 Rufina Rubio MD [address] [place] [address] Referring Physician Nurse Practitioner 01/06/24 General Office Worker Relationship Specialty Start Date End Date Unallocated, Parker Rene MD [facility] [place] [address] PCP - General 05/26/23 Rufina Rubio MD [address] [place] [address] Referring Physician Nurse Practitioner 01/06/24 General Office Worker Relationship Specialty Start Date End Date Unallocated, Parker Rene MD [facility] [address] [facility] [place] [address] PCP - General 05/26/23 Rufina Rubio MD [address] [place] [address] Referring Physician Nurse Practitioner 01/06/24 General Office Worker Relationship Specialty Start Date End Date Unallocated, Parker Rene MD [facility] [place] [address] PCP - General 05/26/23 Rufina Rubio MD [address] [place] [address] Referring Physician Nurse Practitioner 01/06/24 General Office Worker Relationship Specialty Start Date End Date Unallocated, Parker Rene MD [address] [place] [address] PCP - General 05/26/23 Rufina Rubio MD [address] [place] [address] Referring Physician Nurse Practitioner 01/06/24 General Office Worker Relationship Specialty Start Date End Date Unallocated, Parker Rene MD [facility] [place] [address] PCP - General 05/26/23 Rufina Rubio NP [facility] [address] [facility] [place] [address] Referring Physician Nurse Practitioner 01/06/24 General Office Worker Relationship Specialty Start Date End Date Unallocated, Parker Rene MD [address] [place] [address] PCP - General 05/26/23 Rufina Rubio NP [address] [place] [address] Referring Physician Nurse Practitioner 01/06/24 General Office Worker Relationship Specialty Start Date End Date Unallocated, Parker Rene MD [address] [facility] [place] [address] PCP - General 05/26/23 Rufina Rubio NP [address] [place] [address] Referring Physician Nurse Practitioner 01/06/24 General Office Worker Relationship Specialty Start Date End Date Unallocated, Parker Rene MD [address] [place] [address] PCP - General 05/26/23 Rufina Rubio NP [address] [facility] [place] [address] Referring Physician Nurse Practitioner 01/06/24 General Office Worker Relationship Specialty Start Date End Date Unallocated, Parker Rene MD [address] [facility] [place] [address] PCP - General 05/26/23 Rufina Rubio NP [address] [facility] [place] [address] Referring Physician Nurse Practitioner 01/06/24 General Office Worker Relationship Specialty Start Date End Date Unallocated, Parker Rene MD [address] [place] [address] PCP - General 05/26/23 Rufina Rubio NP [address] [facility] [place] [address] Referring Physician Nurse Practitioner 01/06/24 Team Status: Active Member Role Status Dates Services Family Health Family Provider Active Rufina Rubio , [employer] Primary Care Prov ider Active Team Status: Inactive Member Role Status Dates Rufina Villarreal n , [employer] Attending Provider Active Start: August 04, 2024 End: August 04, 2024 Team Status: Inactive Member Role Status Dates Rufina Rubio , [employer] Primary Care Provider, Attending Provider Active Start: September 20, 2024 End: September 20, 2024 Team Status: Inactive Member Role Status Dates Rufina Rubio [employer] Primary Care Provider, Attending Provider Active Start: September 22, 2024 End: September 22, 2024 Team Status: Inactive Member Role Status Dates Rufina Rubio , [employer] Primary Care Provider, Attending Provider Active Start: September 29, 2024 End: September 29, 2024 Goals (unrecognized section and content) Goals may be documented in a n alternate section INFORMATION SOURCE (unrecogn ized section and content) DATE CREATED AUTHOR 10/05/2022 [facility] DATE CREATED AUTHOR AUTHOR'S ORGANIZ ATION 05/06/2024 [facility] DATE CREATED AUTHOR AUTHOR'S ORGANIZ ATION 08/15/2024 [facility] EPIC DATE CREATED AUTHOR AUTHOR'S ORGANIZ ATION 10/07/2024 [facility] DATE CREATED AUTHOR AUTHOR'S ORGANIZ ATION 11/17/2024 [facility] DATE CREATED AUTHOR AUTHOR'S ORGANIZ ATION 11/20/2024 [facility] Reason for Visit (unrecogniz ed section and [...] BE BASED ON THE PRIMARY CLINICAL RECORDS. [facility]. provides no warranty or guarantee of the accuracy or completeness of information in this document.
--- OUTSIDE RECORDS SUMMARY | 2024-12-10 22:40 | XMS_ITS | Patient Health Record ---
Author Organization [employer] es Address [address] [place] [address] Care Team Providers Care Clinical Application Consultant Name Role Phone Pepe Guerra Primary Care Provider Rufina Rubio Unavailable BandarKylie Unavailable [phone] Amy Nguyen Unavailable [phone] Allergies Allergen (clinical drug ingredient) Drug/Non Drug Allergy documented on EMR Reaction Allergy Type Onset Date Status aspirin ASA (uncoded) rash Allergy Active Anaprox rash Drug Allergy Active metronidazole Flagyl rash Drug Allergy Act aggie Haldol anaphylaxis Drug Allergy Activ e magnesium sulfate Magnesium Sulfate vomiting Drug Allergy Active metoclopramide Reglan rash Drug Allergy Ac tive hydroxyzine Vistaril vomiting Drug Allergy Activ e ketorolac Ketorolac hives Drug Allergy Active Non-steroidal anti-inflammatory agent (FN) NSAIDs rash Drug Allergy Active sulfacetamide Sulfacetamide rash Drug Allergy Active Results Component Value Reference Range Notes IGP,Aptima HPV,CtNg Age Gdln Reviewed date:02/08/2024 02:41:31 PM Interpretation: Performing Lab:, [facility], [address] Notes/Report: This nucleic acid amplification test detects fourteen high- TESTS RESULT FLAG UNITS REF RANGE LAB TESTS RESULT FLAG UNITS REF RANGE LAB risk HPV types (16,18,31,33,35,39,45,51,52,56,58,59,66,68) without differentiation. DIAGNOSIS: 02 Clinician Provided Cytology Information Performed at: =[facility] NEGATIVE FOR INTRAEPITHELIAL LESION OR MALIGNANCY. No. of containers..[address] Thin[address] Vial [place], [place] [id number] CELLULAR CHANGES ASSOCIATED WITH INFLAMMATION ARE PRESENT. Age Algo ACOG Judi... 30-65 01 Energy Administrator: Adriane Sherman MD, Phone: [phone] Specimen adequacy: 02 Performed at: [facility] Satisfactory for evaluation. No endocervical component is identified. FLAG LEGEND: Patricia Mccook [place], [place] [id number] Performed by: 02 L-Low Normal,H-High Normal,LL-Alert Low,HH-Alert High Energy Administrator: Adriane Sherman MD, Phone: [phone] Katy Champagne, Unit Receptionist (ASCP) <-Panic Low,>-Panic High,A-Abnormal,AA-Critical Abnormal . 02 Note: Note 02 Performed at: The Pap smear is a screening test designed to aid in the =[facility] detection of premalignant and malignant [place] [address] uterine cervix. It is not a diagnostic procedure and Adriane Sherman MD, should not be used as the sole [...] <-Panic Low,>-Panic High,A-Abnormal,AA-Critical Abnormal Performed at: [address] [address] Adriane Sherman MD, IGP, Age Gdln Note . Pap Image Guided Note . PAP HPV HR Negative Negative Vaginitis Plus (VG+) Reviewed date:02/06/2024 06:54:56 AM Interpretation: Performing Lab:, [facility], [address], [place] Notes/Report: SOURCE OF SPECIMEN: APTIMA Chlamydia Trachomotis, MICHAEL Negative Negative Neisseria Gonorrhoeae, MICHAEL Negative Negative Performed at: = - [address] [id number] Energy Administrator: Adriane Sherman MD, Phone: [phone] Tric Vag MICHAEL Negative Negative Atopobium Vaginae High - 2 . This test was developed and its performance characteristics determined by [employer]. It has not been cleared or approved by the Food and Drug Administration. BVAB2 High - 2 . This test was developed and its performance characteristics determined by [employer]. It has not been cleared or approved by the Food and Drug Administration. Megasphaera High - 2 . This test was developed and its performance characteristics determined by [employer]. It has not been cleared or approved [...] score 3-6: Indicates the presence of BV. Yuki Albicans, MICHAEL Negative Negative This test was developed and its performance characteristics determined by [facility]. It has not been cleared or approved by the Food and Drug Administration. Yuki Glabrata, MICHAEL Negative Negative This test was developed and its performance characteristics determined by [facility]. It has not been cleared or approved by the Food and Drug Administration. Urinalysis automated Reviewed date:09/18/2024 10:34:57 AM Interpretation: Performing Lab: Notes/Report: Urine-Color orange Appearance cloudy Specific Cherry Log 1.030 pH 6.0 Glucose neg Protein 15 Occult Blood 80 Bilirubin neg Urobilinogen,Semi-Qn 0.2 Nitrite, Urine pos Ketones neg WBC Esterase neg GNURI - Complicated Genitour inary Infection (HTRx) Reviewed date:09/19/2024 05:40:04 PM Interpretation: Performing Lab: Notes/Report: Real-Time polymerase chain reaction (TaqMan qPCR) was utilized for detection for all tested organisms and resistance genes. Initiation of antimicrobial therapy prior to testing may affect results and can lead to the detection of non-living microorganisms. Detection of microbes must be correlated with current/recent antibiotic usage and patient signs and symptoms. Microbial sensitivity testing is not performed at this lab. Fisher Mussel to CFU/mL equivalent thresholds were established based on studies using known CFU/mL urine specimens performed at [facility] in [place], [place]. [facility] ([address], [place] [address]; CLIA# [id number]; Energy Administrator Funmilayo Trevizo, PhD, [facility])). This test was developed, and its performance characteristics determined by [facility]. It has not been cleared or approved by the FDA. However, such approval/clearance is not required, as the laboratory is regulated and qualified under CLIA to perform high-complexity testing. This test is used for clinical purposes and should not be regarded as investigational or for research. *Approximate copies of target nucleic acid per &micro;L (Low: <2,500 copies/&micro;L, Moderate: 2,500-50,000 copies/&micro;L, High: >50,000 copies/&micro;L) National Infectious Disease Consensus Data Potentially effective oral antibiotics, based on presence of detected microbes, antimicrobial resistance genes, and national antimicrobial sensitivity data (see Summary Antibiogram). Acinetobacter baumannii 0.000 19.961 - 24.689 ppm Acinetobacter baumannii Not Detected 19.961 - 24.689 ppm Atopobium vaginae 29.350 19.961 - 24.68 9 ppm Atopobium vaginae Detected 19.961 - 24.68 9 ppm BVAB 2,3 (bacterial vaginosis associated bacteria 2, 3); Mobiluncus spp 0.000 19.961 - 24.689 ppm BVAB 2,3 (bacterial vaginosis associated bacteria 2, 3); Mobiluncus spp Not Detected 19.961 - 24.689 ppm Yuki albicans, parapsilosis, tropicalis 0.000 19.961 - 30.770 ppm Yuki albicans, parapsilosis, tropicalis Not Detected 19.961 - 30.770 ppm Yuki glabrata (Nakaseomyces glabratus) 0.000 23.000 - 32.138 ppm Yuki glabrata (Nakaseomyces glabratus) Not Detected 23.000 - 32.138 ppm Yuki krusei (Pichia kudriavzevii) 0.000 23.000 - 32.271 ppm Yuki krusei (Pichia kudriavzevii) Not Detected 23.000 - 32.271 ppm Chlamydia trachomatis 0.000 23.000 - 3 1.467 ppm Chlamydia trachomatis Not Detected 23.000 - 3 1.467 ppm Citrobacter freundii 0.000 23.000 - 31 .881 ppm Citrobacter freundii Not Detected 23.000 - 31 .881 ppm Enterobacter aerogenes, cloacae 0.000 23.000 - 31.535 ppm Enterobacter aerogenes, cloacae Not Detected 23.000 - 31.535 ppm Enterococcus faecalis, faecium 0.000 26.000 - 31.575 ppm Enterococcus faecalis, faecium Not Detected 26.000 - 31.575 ppm Escherichia coli 19.667 23.000 - 28.500 ppm Escherichia coli Detected 23.000 - 28.500 ppm Gardnerella vaginalis 27.862 19.961 - 2 4.689 ppm Gardnerella vaginalis Detected 19.961 - 2 4.689 ppm Klebsiella pneumoniae, oxytoca 0.000 23.000 - 30.500 ppm Klebsiella pneumoniae, oxytoca Not Detected 23.000 - 30.500 ppm Megasphaera (Types 1, 2) 0.000 19.961 - 24.689 ppm Megasphaera (Types 1, 2) Not Detected 19.961 - 24.689 ppm Morganella morganii 0.000 19.961 - 24. 689 ppm Morganella morganii Not Detected 19.961 - 24. 689 ppm Neisseria gonorrhoeae 0.000 23.000 - 3 2.117 ppm Neisseria gonorrhoeae Not Detected 23.000 - 3 2.117 ppm Proteus mirabilis, vulgaris 0.000 23.000 - 28.500 ppm Proteus mirabilis, vulgaris Not Detected 23.000 - 28.500 ppm Pseudomonas aeruginosa 0.000 23.000 - 28.500 ppm Pseudomonas aeruginosa Not Detected 23.000 - 28.500 ppm Serratia marcescens 0.000 23.000 - 31. 204 ppm Serratia marcescens Not Detected 23.000 - 31. 204 ppm Staphylococcus aureus 0.000 26.000 - 3 0.902 ppm Staphylococcus aureus Not Detected 26.000 - 3 0.902 ppm Streptococcus agalactiae (Group B Strep) 0.000 26.000 - 32.222 ppm Streptococcus agalactiae (Group B Strep) Not Detected 26.000 - 32.222 ppm Streptococcus pyogenes (Group A strep) 0.000 19.961 - 24.689 ppm Streptococcus pyogenes (Group A strep) Not Detected 19.961 - 24.689 ppm Trichomonas vaginalis 0.000 23.000 - 3 2.119 ppm Trichomonas vaginalis Not Detected 23.000 - 3 2.119 ppm ermB, C; mefA 25.705 23.000 - 27.611 ppm ermB, C; mefA Detected 23.000 - 27.611 ppm tet B, tet M 26.270 23.000 - 27.778 ppm tet B, tet M Detected 23.000 - 27.778 ppm Staphylococcus epidermidis, haemolyticus, lugdunensis 0.000 19.961 - 24.689 ppm Staphylococcus epidermidis, haemolyticus, lugdunensis Not Detected 19.961 - 24.689 ppm Staphylococcus saprophyticus 0.000 19.961 - 24.689 ppm Staphylococcus saprophyticus Not Detected 19.961 - 24.689 ppm Mycoplasma genitalium 0.000 19.961 - 2 4.689 ppm Mycoplasma genitalium Not Detected 19.961 - 2 4.689 ppm Mycoplasma hominis 0.000 19.961 - 24.6 89 ppm Mycoplasma hominis Not Detected 19.961 - 24.6 89 ppm Ureaplasma parvum 0.000 19.961 - 24.68 9 ppm Ureaplasma parvum Not Detected 19.961 - 24.68 9 ppm Ureaplasma urealyticum 0.000 19.961 - 24.689 ppm Ureaplasma urealyticum Not Detected 19.961 - 24.689 ppm MM diagnostic mammo BI w/CAD Reviewed date:09/22/2024 10:21:51 AM Interpretation: Performing Lab: Notes/Report: [facility] [place] [address] Ultrasound Report Signed Patient: Ziggy Joy MR#: [id number] : 1975 Acct:[id number] Age/Sex: 48 / F ADM Date: 09/22/24 Loc: ID Room: Type: [facility] Attending Dr: Rufina Rubio DRUM STRAIGHTENER-C Ordering Provider: Rufina Rubio Date of Service: 09/22/24 US/US breast BI limited: Breast lump in female;Breast cancer screening by mammogram ([id number]) MM/MM diagnostic mammo BI w/CAD: Breast lump [...] grounds. Impression dictated by: Joe Gold Jr., D.O.09/22/2024 10:15 AM Dictation Location: [facility] Tech: Zo Cortés; Shauna Woodall Transcribed By: JORGE 09/22/24 1015 Dictated By: Joe Gold Jr, DO 09/22/24 1000 Signed By: <Electronically signed by Joe Gold Jr, DO in OV> 09/22/24 1015 US bladder Reviewed date:09/20/2024 02:16:35 PM Interpretation: Performing Lab: Notes/Report: [facility] [address] [place] [address] [place], [place] [id number] Ultrasound Report Signed Patient: Ziggy Joy MR#: [id number] : 1975 Acct:[id number] Age/Sex: 48 / F ADM Date: 09/20/24 Loc: UL Room: Type: [facility] CLI Attending Dr: Rufina BROWNC Ordering Provider: Rufina Rubio Date of Service: [...] Impression dictated by: Joe Gold Jr., D.OGideon09/20/2024 1:48 PM Dictation Location: [place] [address] Tech: Bethany Santacruz Transcribed By: JORGE 09/20/24 1348 Dictated By: Joe Gold Jr, DO 09/20/24 1348 Signed By: <Electronically signed by Joe Gold Jr, DO in OV> 09/20/24 1348 US pelvic complete Reviewed date:09/20/2024 02:16:55 PM Interpretation: Performing Lab: Notes/Report: [facility] [place] [address] [place] [address] Ultrasound Report Signed Patient: Ziggy Joy MR#: [id number] : 1975 Acct:[id number] Age/Sex: 48 / F ADM Date: 09/20/24 Loc: Room: Type: [facility] CLI Attending Dr: Rufina BROWNC Ordering Provider: Rufina Rubio Date of Service: 09/20/24 US/US pelvic complete: Recurrent UTI;Pelvic pain in female ([id number]) US/US transvaginal: PELIVIC PAIN IN FEMALE Copies [...] Gold Jr., D.O.09/20/2024 1:50 PM Dictation Location: [id number] Tech: Bethany Santacruz Transcribed By: JORGE 09/20/24 1350 Dictated By: Joe Gold Jr, DO 09/20/24 1348 Signed By: <Electronically signed by Joe Gold Jr, DO in OV> 09/20/24 1350 MM post biopsy RT w/CAD Reviewed date:10/03/2024 01:53:56 PM Interpretation: Performing Lab: Notes/Report: [facility] [place] [address] [place] [address] Ultrasound Report Signed with Addenda Patient: Ziggy Joy MR#: [id number] : 1975 Acct:[id number] Age/Sex: 48 / F ADM Date: 09/29/24 Loc: [facility] Room: Type: [facility] Attending Dr: Rufina Rubio DRUM STRAIGHTENER-C Ordering Provider: Rufina Rubio Date of Service: 09/29/24 US/US biopsy RT 1st lesion guid: R92.8 ([id number]) MM/MM post biopsy RT w/CAD: CLIP PLACEMENT Copies to: Rufina Rubio ADDENDUM 1 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 No malignancy is identified. This is believed to be concordant. Follow-up ultrasound in 6 months could be cons idered. Impression dictated by: Dara Hardy M.D.10/03/2024 1:26 PM Dictation Location: [place] [address] Addendum Dictated By: MD Dara Hardy Addendum Signed By: <Electronically signed by MD Dara Hardy in OV> 10/03/24 1326 Addendum Cosigned By: DD/ TD/TT: 10/03/24 RIGHT [...] Dara Hardy M.D.09/29/2024 11:50 AM Dictation Location: [facility] Tech: Funmilayo EdgardoLinda Monique Stallworthe Transcribed By: JORGE 09/29/24 1150 Dictated By: Dara Hardy MD 09/29/24 1102 Signed By: <Electronically signed by MD Dara Hardy in OV> 09/29/24 1150 Urinalysis automated Reviewed date:08/04/2024 08:59:51 AM Interpretation: Performing Lab: Notes/Report: Urine-Color yellow Appearance cloudy Specific Cherry Log 1.025 pH 6.0 Glucose neg Protein neg Occult Blood 10 Bilirubin neg Urobilinogen,Semi-Qn 0.2 Nitrite, Urine pos Ketones neg WBC Esterase 500 Urine Culture Reviewed date:08/06/2024 07:01:11 PM Interpretation: Performing Lab:, [facility], [address] [place] Notes/Report: POTENTIALLY THEY MAY BECOME RESISTANT TO ALL B-LACTAM DRUGS. SPECIES KNOWN TO POSSESS INDUCIBLE BETA-LACTAMASES. IB = INDUCIBLE BETA-LACTAMASE. APPEARS IN PLACE OF 'S' WITH WES = BETA-LACTAMASE POSITIVE TFG = THYMIDINE-DEPENDENT STRAIN ESBL = EXTENDED SPECTRUM BETA-LACTAMASE R* = RESISTANCE DUE TO EXTENDED SPECTRUM BETA-LACTAMASES BLANK = DATA NOT AVAILABLE, OR DRUG NOT ADVISABLE OR TESTED Urine S = SUSCEPTIBLE I = INTERMEDIATE R = RESISTANT Reason for Exam Urinary frequency Kell Count >100,000 Kell Count 75,000 Aerobic [place] Escherichia coli Amikacin <16 Amoxacillin/K Clavulanate <8/4 Ampicillin <8 Ampicillin/Sulbactam <4/2 Aztreonam <4 Cefazolin <2 Cefepime <2 Ceftazidime <1 Ceftazidime/Avibactam <4 Ceftolozane/Tazobactam <2 Ceftriaxone <1 Cefuroxime <4 Ciprofloxacin <0.25 Ertapenem <0.5 Gentamicin <2 Levofloxacin <0.5 Meropenem <1 Meropenem/Vaborbactam <2 Nitrofurantoin <32 Piperacillin/Tazobactam <8 Tetracycline <4 Tigecycline <2 Tobramycin <2 Trimethoprim/Sulfamethoxa zole <0.5/9.5 Aerobic [place] Klebsiella pneumoniae Amikacin <16 Amoxacillin/K Clavulanate <8/4 Ampicillin/Sulbactam =8/4 Aztreonam <4 Cefazolin <2 Cefepime <2 Ceftazidime <1 Ceftazidime/Avibactam <4 Ceftolozane/Tazobactam <2 Ceftriaxone <1 Cefuroxime <4 Ciprofloxacin <0.25 Ertapenem <0.5 Gentamicin <2 Levofloxacin <0.5 Meropenem <1 Meropenem/Vaborbactam <2 Nitrofurantoin <32 Piperacillin/Tazobactam <8 Tetracycline <4 Tigecycline <2 Tobramycin <2 Trimethoprim/Sulfamethoxa zole <0.5/9.5 Reason For Referral Reason *FU 7/3 Right should er pain, felt pulling sensation when doing activity using arm. Has been hurting since. Please send to Dr. Michael Torres who did previous shoulder surgery [facility]. Diagnosis 1 Pain, joint, shoulde r, right (M25.511) Diagnosis 2 History of shoulder surgery (Z98.890) Referral Organization [facility] Referring Provider First Name Rufina Referring Provider Last Name Ramiro Referring Provider Speciality Nurse Marvin rodríguez Referred Provider [facility] ALON Referred Provider Specialty Orthopedic S urgery General Notes Stuart Webber 024 02:58:41 PM >[facility] [phone] F: [phone] Referral Priority Routine Referral Appointment Date 01/25/2024 Reason PT SEEN Please sen d urgently as pt is in alot of pain and needs to have this addressed. Severe pain in bilat great toes bc of toenails curling into the toes. Appears to be pincer nails and likely needs them removed. Thick and growing abnormally. 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 Referring Provider First Name Rufina Referring Provider Last Name Ramiro Referring Provider Speciality Nurse Marvin rodríguez Referred Provider MEIR BARCLAY Referred Provider Specialty Podiatry Referral Priority Urgent Reason *SCHEDULED 11/14 kelly ateral ovarian cysts with L adnexal pain, would like to discuss with [facility] *FAXED 11/09 - FAXED REFERRAL UPDATE 11/16 Diagnosis 1 Unspecified ovarian cyst, right side (N83.201) Referral Organization [facility] Referring Provider First Name Pepe Referring Provider Last Name Charlie [facility] Referred Provider Francisco J Philippe Referred Provider Specialty OB - Gynecol ogy Referral Priority Routine Medications Medication SIG (Take, Route, Frequency, Duration) Notes Start Date End Date Status LORazepam 0.5 MG 1 tablet Orally Once a day for 30 days As needed 11/08/2024 Active rOPINIRole HCl 1 MG TAKE ONE TABLET BY M OUTH ONE TO THREE HOURS BEFORE BEDTIME for 90 days Active OLANZapine 15 MG TAKE 1 TABLET BY SHABBIR TH DAILY for 90 days Active Symbicort 160-4.5 MCG/ACT 2 puffs Inhala tion Twice per day for 30 days 09/18/2024 02/06/2025 Active Omeprazole 40 MG 1 capsule 30 minutes before morning meal Orally Once a day for 30 day(s) Active tiZANidine HCl 2 MG 1 tablet Orally Twice per day for 30 days As needed 01/07/2025 Active Albuterol Sulfate HFA 108 (90 Base) MCG/ACT 2 puff as needed Inhalation every 4 hrs for 30 days Active FLUoxetine HCl 40 MG take 1 capsule by m outh once daily Orally Once a day for 90 days Active Albuterol Sulfate (2.5 MG/3ML) 0.083% 3ml Inhalation four times a day (qid) as needed (prn) for 30 days As needed Active Montelukast Sodium 10 MG TAKE 1 TABLET B Y MOUTH DAILY for 90 Active Fluticasone Propionate 50 MCG/ACT 1 spray in each nostril Nasally Once a day for 30 days 08/04/2024 Active Social History Tobacco Use: Social History Observation Description Date Details (start date - stop date) Current Smoker NA - NA Sex Assigned At : Social History Observation Description Sex Assigned At Female Sexual Hx: Question Answer Notes Had sex in the last 12 months (vaginal, oral, or anal)? Yes with Men only Have you ever had an STD? Yes Herpes? Yes PRAPARE Question Answer Notes Date Completed/Updated: 08/31/2022 What is your current housing situation? I have h ousing Are you worried about losing your housing? No What is the highest level of school that you have finished? Less than a high school degree What is your current work situation? Unemployed and seeking work In the past year, have you o r any family members you live with been unable to get any of the following when it was really needed? Check all that apply I do not have problems meeting my needs Has lack of transportation k ept you from medical appointments, meetings, work or from getting things needed for daily living? No How often do you see or talk to people that you care about and feel close to? (For example: talking to friends on the phone, visiting friends or family, going to anabaptism or club meetings) More than 5 times a week How stressed are you? Stress is when someone feels tense, nervous, anxious, or cant sleep at night because their mind is troubled A little bit In the past year have you sp ent more than 2 nights in a row in a penitentiary, senior living, [place] health [place] center, or juvenile correctional facility? No Are you a refugee? No What country are you from? [place] Do you feel physically and e motionally safe where you currently live? Yes In the past year, have you b een afraid of your partner or ex-partner? No PRAPARE Score: 7 AUDIT-C (Standard) Question Answer Notes Did you have a drink containing alcohol in the p ast year? No Points 0 Interpretation Negative Tobacco Control (Standard) Question Answer Notes Tobacco use: Current smoker How often do you smoke cigarettes? Every day How many cigarettes a day do you smoke? - Section Notes: 1 PPD FOR 20+ YEARS 01-05-12: 1 PPD SINCE AGE 16, DENIES ETOH, DENIES ILLEGAL DRUG USE 1 PPD FOR 20+ YEARS 01-05-12: 1 PPD SINCE AGE 16, DENIES ETOH, DENIES ILLEGAL DRUG USE 1 PPD FOR 20+ YEARS 01-05-12: 1 PPD SINCE AGE 16, DENIES ETOH, DENIES ILLEGAL DRUG USE 1 PPD FOR 20+ YEARS 01-05-12: 1 PPD SINCE AGE 16, DENIES ETOH, DENIES ILLEGAL DRUG USE 1 PPD FOR 20+ YEARS 01-05-12: 1 PPD SINCE AGE 14, DENIES ETOH, DENIES ILLEGAL DRUG USE 1 PPD FOR 20+ YEARS 1 PPD FOR 20+ YEARS 01-05-12: 1 PPD SINCE AGE 14, DENIES ETOH, DENIES ILLEGAL DRUG USE 1 PPD FOR 20+ YEARS 01-05-12: 1 PPD SINCE AGE 16, DENIES ETOH, DENIES ILLEGAL DRUG USE 1 PPD FOR 20+ YEARS 12: 1 PPD SINCE AGE 16, DENIES ETOH, DENIES ILLEGAL DRUG USE 1 PPD FOR 20+ YEARS 01-05-12: 1 PPD SINCE AGE 16, DENIES ETOH, DENIES ILLEGAL DRUG USE 1 PPD FOR 20+ YEARS 01-05-12: 1 PPD SINCE AGE 16, DENIES ETOH, DENIES ILLEGAL DRUG USE 1 PPD FOR 20+ YEARS 01-05-12: 1 PPD SINCE AGE 16, DENIES ETOH, DENIES ILLEGAL DRUG USE 1 PPD FOR 20+ YEARS 01-05-12: 1 PPD SINCE AGE 16, DENIES ETOH, DENIES ILLEGAL DRUG USE 1 PPD FOR 20+ YEARS 12: 1 PPD SINCE AGE 14, DENIES ETOH, DENIES ILLEGAL DRUG USE 1 PPD FOR 20+ YEARS 01-05-12: 1 PPD SINCE AGE 14, DENIES ETOH, DENIES ILLEGAL DRUG USE 1 PPD FOR 20+ YEARS 01-05-12: 1 PPD SINCE AGE 14, DENIES ETOH, DENIES ILLEGAL DRUG USE 1 PPD FOR 20+ YEARS 01-05-12: 1 PPD SINCE AGE 14, DENIES ETOH, DENIES ILLEGAL DRUG USE 1 PPD FOR 20+ YEARS 1 PPD FOR 20+ YEARS 01-05-12: 1 PPD SINCE AGE 14, DENIES ETOH, DENIES ILLEGAL DRUG USE 1 PPD FOR 20+ YEARS 12: 1 PPD SINCE AGE 14, DENIES ETOH, DENIES ILLEGAL DRUG USE 1 PPD FOR 20+ YEARS 01-05-12: 1 PPD SINCE AGE 14, DENIES ETOH, DENIES ILLEGAL DRUG USE 1 PPD FOR 20+ YEARS 01-05-12: 1 PPD SINCE AGE 14, DENIES ETOH, DENIES ILLEGAL DRUG USE 1 PPD FOR 20+ YEARS 01-05-12: 1 PPD SINCE AGE 14, DENIES ETOH, DENIES ILLEGAL DRUG USE 1 PPD FOR 20+ YEARS 01-05-12: 1 PPD SINCE AGE 14, DENIES ETOH, DENIES ILLEGAL DRUG USE 1 PPD FOR 20+ YEARS 01-05-12: 1 PPD SINCE AGE 14, DENIES ETOH, DENIES ILLEGAL DRUG USE 1 PPD FOR 20+ YEARS 01-05-12: 1 PPD SINCE AGE 14, DENIES ETOH, DENIES ILLEGAL DRUG USE 1 PPD FOR 20+ YEARS 01-05-12: 1 PPD SINCE AGE 14, DENIES ETOH, DENIES ILLEGAL DRUG USE 1 PPD FOR 20+ YEARS 01-05-12: 1 PPD SINCE AGE 16, DENIES ETOH, DENIES ILLEGAL DRUG USE 1 PPD FOR 20+ YEARS 01-05-12: 1 PPD SINCE AGE 16, DENIES ETOH, DENIES ILLEGAL DRUG USE 1 PPD FOR 20+ YEARS 01-05-12: 1 PPD SINCE AGE 16, DENIES ETOH, DENIES ILLEGAL DRUG USE 1 PPD FOR 20+ YEARS 01-05-12: 1 PPD SINCE AGE 16, DENIES ETOH, DENIES ILLEGAL DRUG USE 1 PPD FOR 20+ YEARS 01-05-12: 1 PPD SINCE AGE 16, DENIES ETOH, DENIES ILLEGAL DRUG USE 1 PPD FOR 20+ YEARS 01-05-12: 1 PPD SINCE AGE 14, DENIES ETOH, DENIES ILLEGAL DRUG USE 1 PPD FOR 20+ YEARS 01-05-12: 1 PPD SINCE AGE 14, DENIES ETOH, DENIES ILLEGAL DRUG USE 1 PPD FOR 20+ YEARS 01-05-12: 1 PPD SINCE AGE 14, DENIES ETOH, DENIES ILLEGAL DRUG USE 1 PPD FOR 20+ YEARS 12: 1 PPD SINCE AGE 16, DENIES ETOH, DENIES ILLEGAL DRUG USE 1 PPD FOR 20+ YEARS 12: 1 PPD SINCE AGE 14, DENIES ETOH, DENIES ILLEGAL DRUG USE 1 PPD FOR 20+ YEARS 12: 1 PPD SINCE AGE 16, DENIES ETOH, DENIES ILLEGAL DRUG USE Problems Problem Type SNOMED Code ICD Code Onset Dates Problem Status W/U Status Risk Notes Problem Tobacco user ([id number]) Nicotine dependence, unspecified, uncomplicated (F17.200) Active confirmed Problem [id number] Generalized anxiety disorder (F41.1) Active confirmed Problem Cough (31106765) Cough (R05) Active confirmed Problem 41397935 Dysuria (R30.0) Active confirmed Problem Upper respiratory infection (86893647) URI (upper respiratory infection) (J06.9) Active confirmed Problem Anxiety (60848501) Anxiety (F41.9) Active confirmed Problem COPD - Chronic obstructive pulmonary disease (71558925) COPD (chronic obstructive pulmonary disease) (J44.9) Active confirmed Problem Bipolar disorder (72989414) Bipolar disorder (F31.9) Active confirmed Problem 18427278 Restless leg syndrome (G25.81) Active confirmed Problem 032216509 Panic attack (F41.0) Active confirmed Problem 334459713 Acid indigestion (K30) Active confirmed Problem Derangement of right shoulder joint (disorder) (07383471550633 105) 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) Active confirmed Vital Signs Heart Rate 78 /min 11/28/2024 Temperature 97 degrees Fahrenheit 11/28/2024 Respiratory Rate 20 /min 11/28/2024 Oximetry 99 % 11/28/2024 Blood pressure diastolic 77 mm Hg 11/28/2024 Height 62 in 11/28/2024 Blood pressure systolic 129 mm Hg 11/28/2024 Weight 127 lbs 11/28/2024 BMI 23.23 kg/m2 11/28/2024 Encounters Encounter Location Date Provider Diagnosis [address] [address] 09/18/2024 Rufina Rubio Nicotine dependence, unspecified, uncomplicated F17.200 ; Bipolar disorder F31.9 ; Vitamin B deficiency E53.9 ; COPD (chronic obstructive pulmonary disease) J44.9 ; Breast lump in female N63.0 ; Recurrent UTI N39.0 ; Breast cancer screening by mammogram Z12.31 ; Pelvic pain in female R10.2 ; Anxiety F41.9 and Vitamin B 12 deficiency E53.8 [facility] [address] [place] [address] 11/28/2024 Pepe Charlie Biceps tendinitis of left upper extremity M75.22 [facility] [address] [place] [address] 04/17/2024 Amy Nguyen Vitamin B 12 deficiency E53.8 [facility] [address] [place] [address] 05/18/2024 Amy Nguyen Vitamin B deficiency E53.9 [facility] [address] [place] [address] 11/23/2024 Kylie Portillo Vitamin B deficiency E53.9 and Vitamin B 12 deficiency E53.8 [facility] [address] [place] [address] 02/02/2024 Rufina Rubio Nicotine dependence, unspecified, uncomplicated F17.200 ; Well woman exam with routine gynecological exam Z01.419 ; Paronychia of toe of right foot L03.031 ; Breast cancer screening by mammogram Z12.31 ; Pelvic pain R10.2 and Vitamin B deficiency E53.9 [facility] [address] [place] [address] 06/21/2024 Rufina Rubio Nicotine dependence, unspecified, uncomplicated F17.200 ; Bipolar disorder F31.9 ; COPD (chronic obstructive pulmonary disease) J44.9 ; Acid indigestion K30 and Vitamin B 12 deficiency E53.8 [facility] [address] [place] [address] 08/04/2024 Rufina Rubio Urinary frequency R35.0 ; Dysuria R30.0 ; Nicotine dependence, unspecified, uncomplicated F17.200 ; Vitamin B 12 deficiency E53.8 ; Fluid level behind tympanic membrane of right ear H65.91 and Vitamin B deficiency E53.9 [facility] [address] [place] [address] 10/24/2024 Rufina Rubio Nicotine dependence, unspecified, uncomplicated F17.200 ; Anxiety F41.9 and Vitamin B 12 deficiency E53.8 [facility] [address] [place] [address] 11/08/2024 Pepe Charlie COPD (chronic obstructive pulmonary disease) J44.9 ; Anxiety F41.9 ; Bipolar disorder F31.9 ; Acid indigestion K30 ; Unspecified ovarian cyst, right side N83.201 and Unspecified ovarian cyst, left side N83.202 [place] [address] [facility] [place] [address] 01/04/2024 Rufina Rubio Panic attack F41.0 ; Nicotine dependence, unspecified, uncomplicated F17.200 ; Pain, joint, shoulder, right M25.511 ; History of shoulder surgery Z98.890 and Colon cancer screening Z12.11 [place] [address] [place] [address] 03/22/2024 Rufina Rubio Nicotine dependence, unspecified, uncomplicated F17.200 ; Pincer nail deformity L60.8 ; Vitamin B deficiency E53.9 ; COPD (chronic obstructive pulmonary disease) J44.9 ; Bipolar disorder F31.9 ; Internal derangement of right shoulder M24.811 ; Pain in right toe(s) M79.674 and Pain in left toe(s) M79.675 [facility] [address] [place] [address] 11/02/2024 Rufina Rubio [place] [address] [facility] [place] [address] 09/20/2024 Rufina Rubio [place] [address] [facility] [address] 09/22/2024 Rufina Rubio [place] [address] [facility] [place] [address] 09/22/2024 Rufina Rubio Abnormal mammogram R92.8 and Mass of upper outer quadrant of right breast N63.11 [facility] [address] [place] [address] 09/22/2024 Rufina Rubio [facility] [address] [facility] [address] 09/26/2024 Rufina Rubio [facility] [address] [place] [address] 10/03/2024 Rufina Rubio [place] [address] [place] [address] 02/06/2024 Rufina Rubio [place] [address] [place] [address] 06/15/2024 Rufina Rubio Bipolar disorder F31.9 ; Restless leg syndrome G25.81 and Nicotine dependence, unspecified, uncomplicated F17.200 [place] [address] [place] [address] 06/21/2024 Rufina Rubio [facility] [address] [place] [address] 07/14/2024 Rufina Rubio [place] [address] [place] [address] 08/06/2024 Rufina Rubio [place] [address] [place] [address] 09/19/2024 Rufina Rubio Assessments Encounter Date Diagnosis (ICD Code) Assessment Notes Treatment Notes Treatment Clinical Notes Section Notes 06/15/2024 Bipolar disorder (ICD-10 - F31.9) 06/15/2024 Restless leg syndrome (ICD-10 - G25.81) 06/21/2024 Nicotine dependence, unspecified, uncomplicated (ICD-10 - F17.200) Quitting Tobacco: Care Instructions material was published 06/21/2024 Bipolar disorder (ICD-10 - F31.9) 09/18/2024 Nicotine dependence, unspecified, uncomplicated (ICD-10 - F17.200) Smoking cessation discussed. Pt verbalized understanding to complication of tobacco use including cardiac and pulmonary disease, as well as stroke. Pt declines interest in this time. 09/18/2024 Bipolar disorder (ICD-10 - F31.9) Pt reports has been feeling down in her current situation. Pt is waiting to be able to live with mother next month. Does not want to change her medications but does feel med for anxiety would be beneficial. 09/22/2024 Abnormal mammogram (ICD-10 - R92.8) 09/22/2024 Mass of upper outer quadrant of right breast (ICD-10 - N63.11) 11/23/2024 Vitamin B deficiency (ICD-10 - E53.9) 11/28/2024 Biceps tendinitis of left upper extremity (ICD-10 - M75.22) Patient with biceps tendinitis of the left shoulder. Patient with significant pain. We did discuss shoulder injection corticosteroid today and patient verbally agreed to this. Patient was placed in a seated position and posterior injection site was identified. Iodine was used to clean area. Using a 1-1/2 inch needle with no bloody flashback 2 cc of 40 rocio per mL Kenalog and 1 cc of 2% lidocaine with epinephrine were injected into the shoulder joint. Area was cleaned with alcohol and Band-Aid placed. Patient tolerated procedure well. We did discuss RICE therapy and physical therapy going forward. 11/08/2024 Anxiety (ICD-10 - F41.9) Increased situational anxiety related to home life with placement of her mother-in law in an SHAY. Previosuly has done ok WIth small amount of lorazepam. Will refill same at this time. No current threat to self or others. 11/08/2024 COPD (chronic obstructive pulmonary disease) (ICD-10 - J44.9) Patient with symptoms well-controlled at this time. No side effects from medication. Will continue with current treatment plan. 10/24/2024 Nicotine dependence, unspecified, uncomplicated (ICD-10 - F17.200) Smoking cessation discussed. Pt verbalized understanding to complication of tobacco use including cardiac and pulmonary disease, as well as stroke. Pt declines interest in this time. 10/24/2024 Anxiety (ICD-10 - F41.9) Anxiety improved. Pt is working on relationship and difficulties in home that were stressing her out. Denies any new concerns. 05/18/2024 Vitamin B deficiency (ICD-10 - E53.9) 04/17/2024 Vitamin B 12 deficiency (ICD-10 - E53.8) 02/02/2024 Nicotine dependence, unspecified, uncomplicated (ICD-10 - F17.200) Quitting Tobacco: Care Instructions material was published 02/02/2024 Well woman exam with routine gynecological exam (ICD-10 - Z01.419) WWE completed today, no significant abnormalities found. External and internal exam normal and healthy. Discussed using protection during intercourse. Discussed importance of SBE, if you ever feel an area of concern, f/u in office. Abnormal findings include new lump, tenderness, changes in skin texture/dimpling, or change nipple appearance or discharge. Abnormal vaginal bleeding is also a concern, please return to office if you experience this or change in vaginal d/c. Severe abd pain, heavy vaginal bleeding, go to the ER. 01/04/2024 Nicotine dependence, unspecified, uncomplicated (ICD-10 - F17.200) Quitting Tobacco: Care Instructions material was published 01/04/2024 Panic attack (ICD-10 - F41.0) Pt currently having panic attacks and not controlled with maintenance medication at this point in treatment. [place] was reviewed and does no show misuse or abuse. A low quantity will be provided. Pt understands that this is a controlled substance, do not share, sell, or take more than prescribed. Pt can be subjected to random drug tests, if illicit drugs or non-prescribed medications are found you will be referred to a addiction program and will no longer receive medication. Counseling is encouraged. SI/HI go to the ER/911. 03/22/2024 Nicotine dependence, unspecified, uncomplicated (ICD-10 - F17.200) Quitting Tobacco: Care Instructions material was published 03/22/2024 Pincer nail deformity (ICD-10 - L60.8) Pt was not able to schedule with her previous pharmacist in charge needed new referral. Will place urgently bc needs to have addressed pt is visibly uncomfortable. Wear open-toes or loose fitting shoes until improvement in symptoms. Patient verbalized understanding, in agreement with plan. 08/04/2024 Dysuria (ICD-10 - R30.0) 08/04/2024 Urinary frequency (ICD-10 - R35.0) U/A consistent for UTI, will send for culture. Start antibiotic, pt advised to take as prescribed and until gone. Potential side effects of abx discussed including upset stomach, diarrhea, if symptoms occur, please notify office. Good agusto-hygiene is discussed. Always wipe front to back, void after intercourse, avoid rectal to vaginal intercourse as this can transfer bacteria, void after intercourse. Increase oral fluids to flush system. Cranberry juice and orange juice are more acidic and good for the urinary tract. Avoid irritants such as alcohol, caffeine. If you develop fever, chills, blood in urine, back pain, go to the ER/urgent care. 08/04/2024 Nicotine dependence, unspecified, uncomplicated (ICD-10 - F17.200) Smoking cessation discussed. Pt verbalized understanding to complication of tobacco use including cardiac and pulmonary disease, as well as stroke. Pt declines interest in this time. 03/22/2024 Vitamin B deficiency (ICD-10 - E53.9) B12 inj. given by MEHUL. 01/04/2024 Pain, joint, shoulder, right (ICD-10 - M25.511) Referral to Dr. Michael Torres in case requires bc this is the doctor who did her surgery several years ago. Pt has been having pain, seen in ER and no bony changes/fx. Pt still has pain and feels acromion protruding that was not visible or palpable like it is now so sending to Ortho for eval. 02/02/2024 Paronychia of toe of right foot (ICD-10 - L03.031) Instructed patient to soak each night for 20 minutes in warm, soapy water. Apply topical atb BID for 5 days. Wear open-toes or loose fitting shoes until improvement in symptoms. Will re-refer to podiatry monica bc of pain in foot and toenail also appears to be curving inward so needs addressed. 10/24/2024 Vitamin B 12 deficiency (ICD-10 - E53.8) Given by MEHUL. Recommended to get her labs done. 11/08/2024 Bipolar disorder (ICD-10 - F31.9) 11/23/2024 Vitamin B 12 deficiency (ICD-10 - E53.8) 09/18/2024 Vitamin B deficiency (ICD-10 - E53.9) Vitamin B12 inj. given today by MEHUL. 06/21/2024 COPD (chronic obstructive pulmonary disease) (ICD-10 - J44.9) COPD stable, continue medications as prescribed. Smoking cessation is encouraged. CP/pressure/sob, cough with fever, chills ER, 911 06/15/2024 Nicotine dependence, unspecified, uncomplicated (ICD-10 - F17.200) 06/21/2024 Acid indigestion (ICD-10 - K30) Reports stable with medication. 09/18/2024 COPD (chronic obstructive pulmonary disease) (ICD-10 - J44.9) COPD uncontrolled at this time. Will start patient on symbicort daily, discussed risks and side effects of medication. OK to use albuterol PRN for SOB, goal to use less frequently. Follow up if symptoms do not appreciably improve with therapy. Patient verbalized understanding, in agreement with plan. 11/08/2024 Acid indigestion (ICD-10 - K30) 02/02/2024 Breast cancer screening by mammogram (ICD-10 - Z12.31) Discussed recommendations for screening for breast cancer and benefits of early detection versus diagnosis. Order placed for mammogram. 01/04/2024 History of shoulder surgery (ICD-10 - Z98.890) 03/22/2024 COPD (chronic obstructive pulmonary disease) (ICD-10 - J44.9) 08/04/2024 Vitamin B 12 deficiency (ICD-10 - E53.8) 08/04/2024 Fluid level behind tympanic membrane of right ear (ICD-10 - H65.91) Can use claritin she has, continue with the singulair. Will send in flonase. 03/22/2024 Bipolar disorder (ICD-10 - F31.9) Mood stable, denies concerns. Refills sent. 01/04/2024 Colon cancer screening (ICD-10 - Z12.11) Refuses referral for colon cancer screening via colonoscopy. Agreeable to Colog[employer], education on process and sending back via [employer]. Pt VU. Paper filled out. Will fax. 11/08/2024 Unspecified ovarian cyst, right side (ICD-10 - N83.201) Pt with small bilateral hemorrhagic cysts on recent pelvic US. she has had persistent adnexal pain, this epsiode for about 2 weeks. Will refer to [facility] for eval and discussion 09/18/2024 Breast lump in female (ICD-10 - N63.0) Will get US and mammogram. Does have palpable lump noted. 09/18/2024 Recurrent UTI (ICD-10 - N39.0) Concern for UTI based on symptoms, will send for culture and initiate treatment. Good agusto-hygiene is discussed. Always wipe front to back, void after intercourse, avoid rectal to vaginal intercourse as this can transfer bacteria, void after intercourse. Increase oral fluids to flush system. Cranberry juice and orange juice are more acidic and good for the urinary tract. Avoid irritants such as alcohol, caffeine. If you develop fever, chills, blood in urine, back pain, go to the ER/urgent care. Will get us of pelvis and bladder. 06/21/2024 Vitamin B 12 deficiency (ICD-10 - E53.8) 11/08/2024 Unspecified ovarian cyst, left side (ICD-10 - N83.202) 02/02/2024 Pelvic pain (ICD-10 - R10.2) Pt has been having pelvic pain unsure why bc had hyster in past. Pt does report she had abnormal cellular changes to cervix and endometriosis. Still have ovaries. Will get US to start. 08/04/2024 Vitamin B deficiency (ICD-10 - E53.9) 03/22/2024 Internal derangement of right shoulder (ICD-10 - M24.811) You are being prescribed a control substance. These can be habit forming and will be prescribed and refilled based on assessment of need at regular visits. Do not mix these medications with alcohol, do not share these medications, do not sell these medication, do not drive or operate heavy machinery while taking these medications. OARRS report was reviewed. No misuse or abuse is noted. Controlled medication contract is on file and will be updated yearly. Any misuse or abnormal Toxassure will result in termination of agreement and subsequent refills. Pt verbalizes understanding. 02/02/2024 Vitamin B deficiency (ICD-10 - E53.9) B12 inj. given by MA. 03/22/2024 Pain in right toe(s) (ICD-10 - M79.674) Foot Pain: Care Instructions material was printed 09/18/2024 Breast cancer screening by mammogram (ICD-10 - Z12.31) 09/18/2024 Pelvic pain in female (ICD-10 - R10.2) 03/22/2024 Pain in left toe(s) (ICD-10 - M79.675) 09/18/2024 Anxiety (ICD-10 - F41.9) You are being prescribed a control substance. These can be habit forming and will be prescribed and refilled based on assessment of need at regular visits. Do not mix these medications with alcohol, do not share these medications, do not sell these medication, do not drive or operate heavy machinery while taking these medications. OARRS report was reviewed. No misuse or abuse is noted. Controlled medication contract is on file and will be updated yearly. Any misuse or abnormal Toxassure will result in termination of agreement and subsequent refills. Pt verbalizes understanding. 09/18/2024 Vitamin B 12 deficiency (ICD-10 - E53.8) 11/23/2024 Other Body Mass Index : Care Instructions material was published 03/22/2024 Other Body Mass Index : Care Instructions material was published 06/21/2024 Other Body Mass Index : Care Instructions material was published Plan Of Treatment Pending Test Test Name Order Date Comprehensive Metabolic Panel 09/18/2024 Lipid Panel 09/18/2024 Triiodothyronine (T3) Free 09/18/2024 Free T4 (Free Thyroxine) 09/18/2024 Thyroid Stimulating Hormone 09/18/2024 Vit. B12/Folate Profile 09/18/2024 Complete Blood Count Auto Diff Next Appt Details Provider Name:Pepe medellin, 01/23/2025 03:00:00 PM, [address] [place] [address], [id number], Provider Name:Pepe medellin, 02/07/2025 02:30:00 PM, [address] [place], [address], Insurance Providers Payer Name Payer Address Payer Phone Subscriber Number Group Number Insured Name Patient Relationship to Insured Coverage Start Date Coverage End Date [facility] Medicaid [address] [place] [address] [id number] STEBLAS, ZIGGY Self - patient is the insured 3 [employer] [facility] [address] [place] [address] [id number] STEIBLE, ZIGGY Self - patient is the insured 3 [facility] [place] [facility] [address] [place] [address] [id number] STEIBLE, ZIGGY Self - patient is the insured 3 [employer] [address] [place] [address] [id number] ZIGGY JOY Self - patient is the insured 0 3 zMEDICAID [place] after [employer] termed 22 [address] [place] [address] [id number] ZIGGY JOY Self - patient is the insured 0 3 [employer] [address] [place] [address] [id number] ZIGGY JOY Self - patient is the insured 3 [facility] [address] [place] [address] [id number] ZIGGY JOY Self - patient is the insured 3 Medications Administered Medication Instructions Date of Administration Dosage Notes B-12 injection 07/23/2014 1.0 mL B-12 injection 08/28/2014 1 mL 1000 MCG/1 ML PT TOLERATED WELL B-12 injection 07/27/2022 1 mL B-12 injection 08/03/2022 1 mL B-12 injection 08/10/2022 1 mL B-12 injection 08/17/2022 1 mL B-12 injection 08/31/2022 1 mL B-12 injection 11/16/2022 1 mL B-12 injection 12/16/2022 1 mL B-12 injection 01/15/2023 1 mL B-12 injection 02/15/2023 1000 ug B-12 injection 03/16/2023 1.0 mL B-12 injection 04/14/2023 1000 ug B-12 injection 06/23/2023 1000 ug B-12 injection 07/27/2023 1.0 mL B-12 injection 08/27/2023 1 mL B-12 injection 10/29/2023 1.0 mL B-12 injection 04/17/2024 1 mL B-12 injection 06/21/2024 1 mL B-12 injection 08/04/2024 1 mL B-12 injection 09/18/2024 1 mL B-12 injection 10/24/2024 1 mL Vit. B12 i njection administered in left deltoid w/out incident;ana. same well. B-12 injection 11/23/2024 1 mL Medical (General) History Medical History History ICD Code Migraines Depression Anxiety COPD Tobacco Use Herpes Simplex Type II Right Ovarian Cyst Right Kidney Cyst Chronic Shoulder Pain UTI B12 Deficiency Paronychia Nail Fungal Infection Surgical History Surgery Date(Month/Year) Ovarian cyst 1998 Tubal Ligation 1999 Esophagogastroduodenoscopy (EGD) 4 Colonoscopy 05/25/14 Total Abdominal Hysterectomy Bicep Repair/ Shoulder Repair 2020 Left Toenail Removal 04/2024 Right Shoulder Tendon Repair 05/2024 Hospitalization History Reason Date(Month/Year) see surgical 1S Psych 09/23 Pancreatitis 05/25/14 RUQ Pain ([facility]) 2010
--- OUTSIDE RECORDS SUMMARY | 2024-12-10 22:40 | XMS_ITS | Encounter Summary ---
Author Organization [facility] Address [address] [place] [address] Care Team Providers Care Gyroscopic Instrument Mechanic Name Role Phone Unallocated, Noms Provider Primary Care Provi nitesh Rufina Rubio DINKEY DRIVER Unavailable [phone] Encounter Details Date Type Department Care Team (Late st Contact Info) Description 05/25/2024 Orders Only [facility] [address] [place] [id number] Michael Torres DO [address] [place] [address] S/P arthroscopy of right shoulder (Primary Dx) [...] Primary documented in this encounter Care Teams Gyroscopic Instrument Mechanic Relationship Specialty Start Date End Date Unallocated, Noms Provider, [address] [place] [address] PCP - General 05/26/23 Rufina Rubio NP [address] [place] [address] Referring Physician Nurse Practitioner 01/06/24 documented as of this encounter
--- OUTSIDE RECORDS SUMMARY | 2024-12-10 22:40 | XMS_ITS | Encounter Summary ---
Author Organization [facility] Address [address] [place] [address] Care Team Providers Care Blacksmith Assistant Name Role Phone Unallocated, Parker Rene MD Primary Care Provi nitesh Rufina Rubio CHEF UNDER Unavailable Encounter Details Date Type Department Care Team (Late st Contact Info) Description 05/19/2024 Abstract [facility] [address] [place] [address] Michael Torres DO [address] [place] [address] Social History Tobacco Use Types Packs/Day Years [...] on filedocumented in this encounter Care Teams Blacksmith Assistant Relationship Specialty Start Date End Date Unallocated, Noms Provider, MD [address] [place] [address] PCP - General 05/26/23 Rufina Rubio NP [address] [place] [address] Referring Physician Nurse Practitioner 01/06/24 documented as of this encounter
--- OUTSIDE RECORDS SUMMARY | 2024-12-10 22:40 | XMS_ITS | Clinical Summary ---
Author Organization [facility] Address [address] [place] [address] Care Team Providers Care Justice Court Judge Name Role Phone Unallocated, Noms Provider Primary Care Provi nitesh Rufina Rubio PLUMBING HARDWARE ASSEMBLER Unavailable [phone] Allergies Active Allergy Reactions Criticality Noted Date [...] Insurance [employer] [place]ICAID [place] Care Teams Justice Court Judge Relationship Specialty Start Date End Date Unallocated, Noms Provider, [address] [place] [address] PCP - General 05/26/23 Rufina Rubio NP [address] [place] [address] Referring Physician Nurse Practitioner 01/06/24
[2024-12-10 22:48] VITALS: BP 105/70; PULSE 82; TEMP 37; O2SAT 100; BMI 23.8
--- NOTE | 2024-12-10 23:09 | ED_ITS ---
HPI HPI - General Adult General Chief complaint: Dental/Oral Stated complaint: sore throat Time Seen by Provider: 12/10/24 23:06 Source: patient Mode of arrival: walk-in Limitations: no limitations History of Present Illness HPI narrative: started on Symbicort about 2 months ago. Now presents with sore throat for a couple of days. States she noticed white spots on her inner cheeks yesterday. she was able to rinse some off. Able to swallow but feels like a lump when she does. Not short of breath. no fever Related Data Home Medications ?Medication ?Instructions ?Recorded ?Confirmed albuterol sulfate 2.5 mg/3 mL 2.5 mg inhalation Q6H SD N 06/05/23 12/10/24 (0.083 %) solution for nebulization shortness of breat h or wheezing tizanidine 2 mg tablet 2 mg PO Q12H 06/05/23 albuterol sulfate 90 mcg/actuation 2 puff inhalation Q 6H PRN 07/21/23 12/10/24 aerosol inhaler shortness of breath or wheez ing fluoxetine 40 mg capsule 40 mg PO QDAY 07/21/2312/10 folic acid 1 mg tablet 1 mg PO QDAY 07/21/23 olanzapine 10 mg tablet 10 mg PO QDAY 07/21/2312/10 ropinirole 0.5 mg tablet 1 mg PO .qhs 07/21/23 budesonide-formoterol HFA 80 2 inh inhalation BID 08/0512/10/24 mcg-4.5 mcg/actuation aerosol inhaler (Breyna) Previous Rx's ?Medication ?Instructions ?Recorded tizanidine 2 mg capsule (Zanaflex) 2 mg PO Q8H PRN mus javier spasm #12 12/20/23 caps Allergies Allergy/AdvReac Type Severity Reaction Status Date / Time hydroxyzine (From Vistaril) Allergy Severe Rash Verified 12/10/24 22:53 ketorolac (From Toradol) Allergy Severe Rash Verified 12/10/24 22:53 magnesium sulfate Allergy Severe Rash Verified 12/10/24 22:53 naproxen (From Anaprox) Allergy Severe Rash Verified 12/10/24 22:53 aspirin AdvReac Severe Vomiting Verified 12/10/24 22:53 haloperidol (From Haldol) AdvReac Severe lock jaw Verified 12/10/24 22:53 Opioid HPI Opioid Management Most Recent Opioid Data: Last Pain Scale 6 Today, 22:48 Review of Systems ROS Status of ROS 10 or more systems reviewed and unremark able except as noted in history and below PFSH PFS Social History Smoking status: Current every day smoker Little interest or pleasure in doing things: not at all Feeling down, depressed, or hopeless: not at all Exam Constitutional Vital Signs, click to edit/add: Last Vital Signs Temp 98.6 F 12/10/24 22:48 Pulse 82 12/10/24 22:48 Resp 16 12/10/24 22:58 BP 105/70 12/10/24 22:48 Pulse Ox 100 12/10/24 22:48 O2 Del Method Room Air 12/10/24 22:48 Common normals: no apparent distress, average body habitus, oriented x3, no limitations, healthy appearing, alert and well nourished [facility] Other: pharynx red. no swelling. Few white lesions on buccal mucosa Eye Common normals: PERRL and EOMs intact bilaterally Respiratory Common normals: normal respiratory effort, no retractions, no use of accessory muscles and clear to auscultation bilaterally Cardio Common normals: regular rate, regular rhythm, S1 normal heart sound and S2 n ormal heart sound Extremity Common normals: normal to inspection and full ROM Neuro Common normals: oriented x3, CN's II-XII intact bilaterally, moves all extremities and no focal motor deficits Psych Appearance: grossly normal Course Vital Signs Vital signs: Vital Signs Temperature 98.6 F 12/10/24 22:48 Pulse Rate 82 12/10/24 22:48 Respiratory Rate 20 12/10/24 22:48 Blood Pressure 105/70 12/10/24 22:48 Pulse Oximetry 100 12/10/24 22:48 Oxygen Delivery Method Room Air 12/10/24 22:48 Temperature 98.6 F 12/10/24 22:48 Pulse Rate 82 12/10/24 22:48 Respiratory Rate 16 12/10/24 22:58 Blood Pressure 105/70 12/10/24 22:48 Pulse Oximetry 100 12/10/24 22:48 Oxygen Delivery Method Room Air 12/10/24 22:48 Medical Decision Making [facility] Narrative Medical decision making narrative: patient presents with sore throat and fungal appearing lesions on her buccal mucosa. Newly started symbicort about one month ago. Strep screen neg. Discharged home with working diagnosis of thrush Lab Data Labs: Lab Results 12/10/24 Range/Units 23:00 Streptococcus Screen Negative Discharge Plan Discharge Chief Complaint: Dental/Oral Clinical Impression: Oral thrush Patient Disposition: Home, Self-Care Prescriptions / Home Meds: No Action tizanidine [Zanaflex] 2 mg capsule 2 mg PO Q8H PRN (Reason: muscle spasm) Qty: 12 0RF budesonide-formoterol [Breyna] 80-4.5 mcg/actuation HFA aerosol inhaler 2 inh inhalation BID albuterol sulfate 2.5 mg /3 mL (0.083 %) solution for nebulization 2.5 mg inhalation Q6H PRN (Reason: shortness of breath or wheezing) tizanidine 2 mg tablet 2 mg PO Q12H fluoxetine 40 mg capsule 40 mg PO QDAY olanzapine 10 mg tablet 10 mg PO QDAY ropinirole 0.5 mg tablet 1 mg PO .qhs folic acid 1 mg tablet 1 mg PO QDAY albuterol sulfate 90 mcg/actuation HFA aerosol inhaler 2 puff INHALATION Q6H PRN (Reason: shortness of breath or wheezing) Print Language: Occitan Instructions: Oral Candidiasis (ED) Additional Instructions: follow up with your doctor later this week for recheck Referrals: [facility] [Primary Care Provider] - 1 week
[2024-12-10 23:12] LABS: Internal Control Within Normal Limits; Strep A Antigen Screen Negative
[2024-12-10] MEDS: FLUCONAZOLE 100 MG TABLET PO (23:30)
== END 2024-12-10 23:34 | disposition home or self-care (01) ==
PROVIDERS: Emergency Provider Internal Medicine
DX: B37.0 Candidal stomatitis (principal); F17.200 Nicotine dependence, unspecified, uncomplicated
CPT/HCPCS: 87070; 87880; 99283

== ENCOUNTER 2025-03-05 18:00 | Emergency (ER) | payer MEDICARE, SELFPAY ==
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
--- OUTSIDE RECORDS SUMMARY | 2025-02-07 10:30 | XMS_ITS ---
Author Organization [facility] [employer] es Address [address] [place] [address] Care Team Providers Care Help Aid Name Role Phone Pepe Guerra Primary Care Provider [phone] REASON FOR VISIT 3month f/u Social History Sex Assigned At : Social History Observation Description Sex Assigned At Female Encounters Encounter Location Date Provider Diagnosis [facility] [address] [place] [address] 02/07/2025 Pepe Guerra Plan Of Treatment Next Appt Details Provider Name:Pepe Roberto , 03/28/2025 08:15:00 AM, [address] [place], [address], Progress Notes * CHAUNCEY SANCHEZIDOB: 8 (49 yo F)Acc No.[id number]:02/07/2025 Progress Notes Patient: ZIGGY ELI Provider: Alistair Guerra :1975 A ge:49 Y S ex:Female Date:02/07/2025 Address:[address] [facility], [address] [id number] Subjective: * Chief Complaints: * 1 . 3month f/u. * Medical History: Objective: * Vitals: Assessment: Plan: * Treatment: * Images: * Electronic signature of Vida Guerra DO on 03/05/2025 at 06:17 PM EDT Sign off status: Pending * Provider: Alistair Guerra Date: 0 02/07/2025 Generated for Carmen pedersen/Jazmin/Jameson on: 0 03/05/2025 06:17 PM EDT
--- OUTSIDE RECORDS SUMMARY | 2025-02-28 05:00 | XMS_ITS ---
Author Organization [employer] [facility] [employer] es Address [address] [address] Care Team Providers Care Train Starter Name Role Phone Pepe Guerra Primary Care Provider [phone] Allergies Allergen (clinical drug ingredient) Drug/Non Drug [...] Active Results Component Value Reference Range Notes Vitamin B12 Reviewed date:03/05/2025 03:50:03 PM Interpretation: Performing Lab: Notes/Report: Vitamin B12 353 180-914 pg/mL REASON FOR VISIT 1 month fu Medications Medication SIG (Take, Route, Frequency, Duration) Notes Start Date End Date Status Vitamin B12 1000 MCG 1 tablet Orally Onc e a day; Duration: 90 days 02/28/2025 05/28/2025 Active tiZANidine HCl 2 MG 1 tablet Orally Twice per day; Duration: 30 days As needed Active predniSONE 20 MG 2 tablets once a day for 5 days, 1.5 tablets once a day for 5 days, 1 tablet once a day for 5 days, 0.5 tablet once a day for 5 days Orally; Duration: 20 days 02/28/2025 03/30/2025 Active FLUoxetine HCl 40 MG take 1 capsule by m outh once daily Orally Once a day; Duration: 90 days Active Albuterol Sulfate HFA 108 (90 Base) MCG/ACT 2 puff as needed Inhalation every 4 hrs; Duration: 30 days Active Fluticasone Propionate 50 MCG/ACT 1 spray in each nostril Nasally Once a day; Duration: 30 days 08/04/2024 Active Montelukast Sodium 10 MG TAKE 1 TABLET B Y MOUTH DAILY; Duration: 90 Active Albuterol Sulfate (2.5 MG/3ML) 0.083% 3ml Inhalation four times a day (qid) as needed (prn); Duration: 30 days As needed Active Omeprazole 40 MG 1 capsule 30 minutes before morning meal Orally Once a day; Duration: 30 day(s) Active LORazepam 0.5 MG 1 tablet Orally Once a day; Duration: 30 days As needed 11/08/2024 Active OLANZapine 15 MG TAKE 1 TABLET BY SHABBIR TH DAILY; Duration: 90 days Active rOPINIRole HCl 1 MG TAKE ONE TABLET BY M OUTH ONE TO THREE HOURS BEFORE BEDTIME; Duration: 90 days Active Social History Tobacco Use: Social History Observation Description Date Details (start date - stop date) Current Smoker NA - NA Sex Assigned At : Social History Observation Description Sex Assigned At Female Sexual Hx: Question Answer Notes Had sex in the last 12 months (vaginal, oral, or anal)? Yes with Men only Have you ever had an STD? Yes Herpes? Yes AUDIT-C (Standard) Question Answer Notes Did you have a drink containing alcohol in the p ast year? No Points 0 Interpretation Negative Tobacco Control (Standard) Question Answer Notes Tobacco use: Current smoker How often do you smoke cigarettes? Every day How many cigarettes a day do you smoke? 05-31 Problems Problem Type SNOMED Code ICD Code Onset Dates Problem Status W/U Status Risk Notes Problem Menopausal and female climacteric states (N95.1) Active confirmed Vital Signs Height 62 in 02/28/2025 Weight 122.6 lbs 02/28/2025 BMI 22.42 kg/m2 02/28/2025 Blood pressure systolic 123 mm Hg 02/29/20 25 Blood pressure diastolic 83 mm Hg 025 Oximetry 100 % 02/28/2025 Heart Rate 79 /min 02/28/2025 Respiratory Rate 20 /min 02/28/2025 Encounters Encounter Location Date Provider Diagnosis [facility] [address] [place] [address] 02/28/2025 Pepe Charlie B12 deficiency E53.8 ; Pain, joint, shoulder, left M25.512 and Menopausal and female climacteric states N95.1 Assessments Encounter Date Diagnosis (ICD Code) Assessment Notes Treatment Notes Treatment Clinical Notes Section Notes 02/28/2025 B12 deficiency (ICD-10 - E53.8) History of B12 deficiency managed with injections. Switching to oral tablet due to difficulty with injections. Plans to monitor B12 levels and adjust treatment if oral therapy is ineffective. - Prescribed oral vitamin B12 tablet. - Ordered B12 level and other labs for monitoring. - Plan to recheck B12 level in 3 months and adjust therapy as needed. 02/28/2025 Pain, joint, shoulder, left (ICD-10 - M25.512) Worsening left shoulder pain radiating to neck, especially with movement and at night. Unable to attend physical therapy due to caregiving and transportation barriers. History of prior injection for pain, which did significantly improve symptoms. Patient uses ice and fpou-sjk-ygrdwmw pain medications for relief. - Ordered new script for physical therapy. - Prescribed oral steroid burst. - Advised against repeating injection at this time. 02/28/2025 Menopausal and female climacteric states (ICD-10 - N95.1) Severe hot flashes at night and excessive sweating. Anxiety and mood changes associated with menopause. Elevated FSH level previously noted. Declined Effexor due to prior adverse effects. Interested in trying mbib-ghb-ugbnhdc supplements for symptom relief. - Discussed options for symptom management including hormone replacement and supplements, alexandria root and rhodiola. - Recommended trial of bynm-dgj-xrcfgjq menopause supplements prior to hormone therapy. - Plan to reassess in one month and consider hormone replacement if needed. Plan Of Treatment Medication Medication Name Sig Start Date Stop Date Notes Vitamin B12 1000 MCG 1 tablet Orally Onc e a day; Duration: 90 days 02/28/2025 05/28/2025 predniSONE 20 MG 2 tablets once a day for 5 days, 1.5 tablets once a day for 5 days, 1 tablet once a day for 5 days, 0.5 tablet once a day for 5 days Orally; Duration: 20 days 02/28/2025 03/30/2025 Treatment Notes Assessment Notes B12 deficiency History of B12 deficiency managed with injections. Switching to oral tablet due to difficulty with injections. Plans to monitor B12 levels and adjust treatment if oral therapy is ineffective. - Prescribed oral vitamin B12 tablet. - Ordered B12 level and other labs for monitoring. - Plan to recheck B12 level in 3 months and adjust therapy as needed. Pain, joint, shoulder, left Worsening left shoulder pain radiating to neck, especially with movement and at night. Unable to attend physical therapy due to caregiving and transportation barriers. History of prior injection for pain, which did significantly improve symptoms. Patient uses ice and iwbs-atd-fcqjggs pain medications for relief. - Ordered new script for physical therapy. - Prescribed oral steroid burst. - Advised against repeating injection at this time. Menopausal and female climacteric states Severe hot flashes at night and excessive sweating. Anxiety and mood changes associated with menopause. Elevated FSH level previously noted. Declined Effexor due to prior adverse effects. Interested in trying rnxt-uew-jazdufi supplements for symptom relief. - Discussed options for symptom management including hormone replacement and supplements, alexandria root and rhodiola. - Recommended trial of tgvx-ghk-thelxwz menopause supplements prior to hormone therapy. - Plan to reassess in one month and consider hormone replacement if needed. Next Appt Details Follow Up: 4 weeks, Reason: menopausal symptoms Provider Name:Pepe Roberto , 03/28/2025 08:15:00 AM, [address] [place], [address], Progress Notes * CHAUNCEY JOYIDOB: 8 (49 yo F)Acc No.[id number]:02/28/2025 Progress Notes Patient: ZIGGY ELI Provider: Alistair Guerra :1975 A ge:49 Y S ex:Female Date:02/28/2025 Address:[address] [place] [address], [id number] , [id number] Subjective: * Chief Complaints: * 1 . 1 month fu. * HPI: C onstitutional: Ziggy Joy, a 49-year-old female, presented for a chronic condition follow- up focused on right shoulder pain and menopausal symptoms. She described persistent pain located under her right shoulder, radiating into her neck, which has progressively worsened and now disrupts her sleep, especially when she moves at night. She avoids using the affected arm due to the severity of pain and has not been able to attend physical therapy, citing recent caregiving responsibilities for her cbufqg-tk-vka, transportation issues, and a car breakdown. Despite these challenges, she has attempted to manage her symptoms with ice and frequent use of ibuprofen and Tylenol, though she recognizes this may not be ideal. She denied any numbness, tingling, or dropping objects. In addition to her shoulder pain, Ziggy reported severe menopausal symptoms, including intense hot flashes at night and excessive sweating, even when sleeping in a cool room. She noted significant anxiety and mood changes, attributing these to her menopausal transition. Her FSH level was previously found to be high, and she expressed concern about the impact of menopause on her emotional well-being. She declined Effexor due to prior adverse effects and is interested in exploring blug-hos-djugtze supplements, though she remains cautious about trying new remedies without provider guidance. Ziggy also discussed her longstanding struggle with vitamin B12 deficiency, previously managed with injections. She expressed concern about maintaining adequate B12 levels, noting that prior attempts with oral tablets were unsuccessful. She is willing to try the oral tablet again and plans to monitor her levels, with the understanding that adjustments may be needed if her levels do not improve. D epression Screening: PHQ-2 (2015 Edition) L ittle interest or pleasure in doing things??Not at all F eeling down, depressed, or hopeless? N ot at all T otal Score 0 * ROS: 1 0 point ROS completed otherwise negative except as per HPI. * Medical History: M igraines, Depression, Anxiety, COPD, Tobacco Use, Herpes Simplex Type II, Right Ovarian Cyst, Right Kidney Cyst, Chronic Shoulder Pain, UTI, B12 Deficiency, Paronychia, Nail Fungal Infection. * Surgical History: O varian cyst 1998, Tubal Ligation 1999, Esophagogastroduodenoscopy (EGD) 05/25/14, Colonoscopy 05/25/14, Total Abdominal Hysterectomy , Bicep Repair/ Shoulder Repair 2020, Left Toenail Removal 04/2024, Right Shoulder Tendon Repair 05/2024. * Hospitalization/Major Diagno stic Procedure: R UQ Pain ([facility] [place] 2010, Pancreatitis 05/25/14, 1S Psych 09/23, see surgical . * Family History: D romelia(s): alive. S on(s): alive. M other: alive, Hepatitis, Cervical Ca, Endometriosis. 1 brother(s) , 2 sister(s) . 2 son(s) , 1 daughter(s) . . broter with Asthma, alcoholism, HTN Both sisters had cervical cancer, one sister had thyroidectomy Both sons have asthma. * Social History: G eneral: T ransition of Care E R/UC/hospital since last office [...] STD? Y es H erpes? Y es D rug/Alcohol: A FADIA-C (Standard) D id you have a drink containing alcohol in the past year? N o P oints 0 I nterpretation N egative T obacco Use: T obacco Control (Standard) T obacco use: C urrent smoker H ow often do you smoke cigarettes? E very day H ow many cigarettes a day do you smoke? 1 1-20 * Medications: T aking rOPINIRole HCl 1 MG Tablet TAKE ONE TABLET BY MOUTH ONE TO THREE HOURS BEFORE BEDTIME , Taking OLANZapine 15 MG Tablet TAKE 1 TABLET BY MOUTH DAILY , Taking Omeprazole 40 MG Capsule Delayed Release 1 capsule 30 minutes before morning meal Orally Once a day , Taking Albuterol [...] tablet Orally Once a day As needed, Taking Albuterol Sulfate HFA 108 (90 Base) MCG/ACT Aerosol Solution 2 puff as needed Inhalation every 4 hrs , Taking FLUoxetine HCl 40 MG Capsule take 1 capsule by mouth once daily Orally Once a day , Taking tiZANidine HCl 2 MG Tablet 1 tablet Orally Twice per day As needed, Medication List reviewed and reconciled with the patient * Allergies: A naprox: rash, ASA: rash, Flagyl: rash, Haldol: anaphylaxis - Allergy, Magnesium Sulfate: vomiting - Allergy, Sulfacetamide: rash - Allergy, Reglan: rash - Allergy, Vistaril: vomiting - Allergy, NSAIDs: rash - Allergy, Ketorolac: hives. Objective: * Vitals: H t: 62 in, Wt: 122.6 lbs, BMI:22.42Index, BP: 123/83 mm Hg, SaO2:100%, HR: 79 /min, RR: 20 /min. * Examination: G eneral Examination: GENERAL APPEARANCE: A lert and oriented, in no acute distress, pleasant. EYES: e xtra ocular muscles intact (EOMI) bilaterally, no discharge, pupils, equal, round, reactive to light and accomodation (PERRLA), sclera clear. NECK/THYROID: t rachea is midline, no adenopathy, normal thyroid without masses or nodules. CARDIOVASCULAR: R egular rate and rhythm, S1/S2 are normal, no murmurs, rubs, or gallops. PERIPHERAL PULSES: r adial pulses +2/4 bilaterally, posterior tibial pulses +2/4 bilaterally. RESPIRATORY: c lear to auscultation bilaterally, good breath sounds bilaterally, no wheezes, rhonchi, rales. GASTROINTESTINAL: A bdomen Soft, not tender, positive bowel sounds in all 4 quadrants, no guarding.. NEUROLOGIC EXAM: C N's II-XII grossly intact , alert and oriented x 3 , normal gait. SKIN: m oist, warm, unremarkable, no rash. EXTREMITIES: b ilaterally no clubbing, cyanosis, or edema.? MUSCULOSKELETAL: N ormal ROM and strength is 5/5 throughout, normal inspection, no effusions, no swelling or deformity; L eft shoulder with full passive range of motion, speeds test is positive for pain, Evette test remainder specialized shoulder testing is negative for reproduction of pain. Assessment: * Assessment: 1. B 12 deficiency - E53.8 (Primary) 2 . P ain, joint, shoulder, left - M25.512 3 . M enopausal and female climacteric states - N95.1 Plan: * Treatment: 2. P ain, joint, shoulder, left Start predniSONE Tablet, 20 MG, 2 tablets once a day for 5 days, 1.5 tablets once a day for 5 days, 1 tablet once a day for 5 days, 0.5 tablet once a day for 5 days, Orally, 20 days, 25 tablet. ? Notes: Worsening left shoulder pain radiating to neck, especially with movement and at night. Unable to attend physical therapy due to caregiving and transportation barriers. History of prior injection for pain, which did significantly improve symptoms. Patient uses ice and svto-txf-ellbabh pain medications for relief. - Ordered new script for physical therapy. - Prescribed oral steroid burst. - Advised against repeating injection at this time. 3. M enopausal and female climacteric states Notes: Severe hot flashes at night and excessive sweating. Anxiety and mood changes associated with menopause. Elevated FSH level previously noted. Declined Effexor due to prior adverse effects. Interested in trying egtg-oxh-opicuyl supplements for symptom relief. - Discussed options for symptom management including hormone replacement and supplements, alexandria root and rhodiola. - Recommended trial of mdce-scy-zoiogaw menopause supplements prior to hormone therapy. - Plan to reassess in one month and consider hormone replacement if needed. * Procedure Codes: 3 079F DIAST BP 80-89 MM HG, 3074F SYST BP LT 130 MM HG, 1160F RVW MEDS BY RX/ IN [facility], [address] OFFICE O/P EST MOD 30-39 MIN * Follow Up: 4 weeks (Reason: menopausal symptoms) * Images: * Sign off status: Completed true * Provider: Alistair Guerra Date: 02/28/2025 Generated for Carmen pedersen/Jazmin/Jameson on: 0 03/05/2025 06:17 PM EDT History and Physical Notes * HPI (History of Present Illness) Category Sub-Category Detail Notes Category Not es Depression Screening PHQ-2 (2015 Edition) Little interest or pleasure in doing things?: Not at all Feeling down, depressed, or hopeless?: N ot at all Total Score: 0 Constitutional Ziggy Joy, a 49-year-old female, presented for a chronic condition follow-up focused on right shoulder pain and menopausal symptoms. She described persistent pain located under her right shoulder, radiating into her neck, which has progressively worsened and now disrupts her sleep, especially when she moves at night. She avoids using the affected arm due to the severity of pain and has not been able to attend physical therapy, citing recent caregiving responsibilities for her bkhomn-dp-ral, transportation issues, and a car breakdown. Despite these challenges, she has attempted to manage her symptoms with ice and frequent use of ibuprofen and Tylenol, though she recognizes this may not be ideal. She denied any numbness, tingling, or dropping objects. In addition to her shoulder pain, Ziggy reported severe menopausal symptoms, including intense hot flashes at night and excessive sweating, even when sleeping in a cool room. She noted significant anxiety and mood changes, attributing these to her menopausal transition. Her FSH level was previously found to be high, and she expressed concern about the impact of menopause on her emotional well-being. She declined Effexor due to prior adverse effects and is interested in exploring mvca-xks-oxmibcw supplements, though she remains cautious about trying new remedies without provider guidance. Ziggy also discussed her longstanding struggle with vitamin B12 deficiency, previously managed with injections. She expressed concern about maintaining adequate B12 levels, noting that prior attempts with oral tablets were unsuccessful. She is willing to try the oral tablet again and plans to monitor her levels, with the understanding that adjustments may be needed if her levels do not improve. Examination Category Sub-Category Detail Notes Category Not es General Examination NECK/THYROID: trachea is m idline, no adenopathy, normal thyroid without masses or nodules CARDIOVASCULAR: Regular rate and rhy thm, S1/S2 are normal, no murmurs, rubs, or gallops RESPIRATORY: clear to auscultatio n bilaterally, good breath sounds bilaterally, no wheezes, rhonchi, rales GASTROINTESTINAL: Abdomen Soft, not te nder, positive bowel sounds in all 4 quadrants, no guarding. EXTREMITIES: bilaterally no clubb ing, cyanosis, or edema GENERAL APPEARANCE: Alert and oriented, in no acute distress, pleasant SKIN: moist, warm, unremar kable, no rash NEUROLOGIC EXAM: CN's II-XII grossly intact , alert and oriented x 3 , normal gait PERIPHERAL PULSES: radial pulses +2/4 b ilaterally, posterior tibial pulses +2/4 bilaterally MUSCULOSKELETAL: Normal ROM and stren gth is 5/5 throughout, normal inspection, no effusions, no swelling or deformity; Left shoulder with full passive range of motion, speeds test is positive for pain, Evette test remainder specialized shoulder testing is negative for reproduction of pain EYES: extra ocular muscles intact (EOMI) bilaterally, no discharge, pupils, equal, round, reactive to light and accomodation (PERRLA), sclera clear
[2025-03-05 18:07] VITALS: BP 150/85; PULSE 82; O2SAT 100; BMI 22.3
--- OUTSIDE RECORDS SUMMARY | 2025-03-05 18:17 | XMS_ITS | Patient Health Record ---
Author Organization [employer] [facility] Storyful es Address [address] [place] [address] Care Team Providers Care Residence Counselor Name Role Phone Pepe Guerra Primary Care Provider Ramiro Rufina Unavailable Kylie Portillo Unavailable [phone] Amy Recio Unavailable [phone] Allergies Allergen (clinical drug ingredient) Drug/Non Drug [...] Value Reference Range Notes Vitamin B12 Reviewed date:12/26/2024 10:42:08 AM Interpretation: Performing Lab:, [facility], [address] [place] Notes/Report: Vitamin B12 406 180-914 pg/mL Follicle Stimulating Hormone Reviewed date:12/26/2024 10:42:08 AM Interpretation: Performing Lab: Notes/Report: Follicle Stimulating Hormone 43.2 FEMALE NORMALS (PREMENOPAUSE) MID-FOLLICULAR PHASE: 3.9-8.8 mIU/mL MID-CYCLE PEAK: 4.5-22.5 mIU/mL MID-LUTEAL PHASE: 1.8-5.1 mIU/mL FEMALE NORMALS (POSTMENOPAUSE): 16.7-113.6 mIU/mL MALE NORMALS: 1.3-19.3 mIU/mL Comprehensive Metabolic Pane l Reviewed date:03/05/2025 03:50:03 PM Interpretation: Performing Lab:, [facility], [address] [place] Notes/Report: Glucose 108 70-100 mg/dL Random Glucose Reference Range is dependent on time and content of last meal. Glucose of more than 200 mg/dL in a nonstressed, ambulatory subject supports the diagnosis of Diabetes Mellitus. ADA recommended reference range Blood Urea Nitrogen 9 7-25 mg/dL Creatinine 0.58 0.60-1.20 mg/dL Sodium 139 136-145 mmol/L Potassium 4.2 3.5-5.1 mmol/L Chloride 107 98-107 mmol/L Carbon Dioxide 27.2 21.0-31.0 mmol/L Calcium 9.0 8.6-10.3 mg/dL Total Protein 6.6 6.4-8.9 g/dL Albumin Level 4.4 3.5-5.7 g/dL Globulin 2.2 Albumin/Globulin Ratio 2.0 Bilirubin,Total 0.2 0.3-1.0 mg/dL Aspartate Amino Transferase 12 13-39 U/L Alanine Aminotransferase 8 7-52 U/L Alkaline Phosphatase 101 34-104 U/L Estimated GFR >60.0 Anion Gap 9.0 6.0-15.0 Lipid Panel Reviewed date:03/05/2025 03:50:03 PM Interpretation: Performing Lab: Notes/Report: Cholesterol 176 140-200 mg/dL Chol less than 200 mg/dl low risk Chol 201-239 mg/dl borderline risk Chol 240 mg/dl and greater high risk HDL Cholesterol 57 23-92 mg/dL HDL CHOL ATP-III CLASSIFICATION Cardiovascular Risk HDL > or equal to 60 mg/dL LOW HDL < 40 mg/dL HIGH Triglyceride w/Reflex 138 0-149 mg/dL TRIG ATP III CLASSIFICATION TRIG less than 150 mg/dL Normal TRIG 150-199 mg/dL Borderline high TRIG 200-500 mg/dL High TRIG greater than 500 mg/dL Very high Standard traceable to the Center for Disease Conrtrol and Prevention (CDC) test method. LDL Cholesterol,Calculated 91 0-100 mg/dL LDL ATP III CLASSIFICATION LDL less than 100 mg/dL Optimal LDL 100-129 mg/dL Near or above optimal LDL 130-159 mg/dL Borderline high LDL 160-189 mg/dL High LDL greater than 189 mg/dL Very high VLDL CHOLESTEROL 27 Chol/HDL Ratio 3.1 <5.0 Thyroid Stim Hormone w/Rflx Reviewed date:03/05/2025 03:50:03 PM Interpretation: Performing Lab: Notes/Report: Thyroid Stim Hormone w/Rflx 1.84 0.45-5.33 u[iU]/mL Complete Blood Count Auto Di ff Reviewed date:03/05/2025 03:50:03 PM Interpretation: Performing Lab:, [facility], [address] Notes/Report: White Blood Count 10.1 3.8-11.6 [CFU]/mL Uncorrected WBC 10.1 3.8-11.6 10*3/uL Red Blood Count 4.67 3.60-5.00 10*6/uL Hemoglobin 14.7 11.8-15.4 g/dL Hematocrit 43.8 34.0-46.4 % Mean Corpuscular Volume 93.7 80-100 fL Mean Corpuscular Hemoglobin 31.4 24.7-34.3 pg Mean Corpuscular HGB Conc 33.5 32.0-35.0 g/dL Red Cell Distribution Width 13.7 11.9-15.3 % Platelet Count 188 150-450 10*3/uL Mean Platelet Volume 10.7 6.3-10.7 fL Neutrophils % (Auto) 67.6 . % Lymphocytes % (Auto) 25.0 . % Monocytes % (Auto) 5.3 . % Eosinophils % (Auto) 1.3 . % Basophils % (Auto) 0.8 . % NRBC% 0.1 0-0.5 /100{WBC} Neutrophils # (Auto) 6.8 1.8-7.7 10*3/uL Lymphocytes # (Auto) 2.5 1.00-4.8 10*3/uL Monocytes # (Auto) 0.5 0.0-0.8 10*3/uL Eosinophils # (Auto) 0.1 0.0-0.45 10*3/uL Basophils # (Auto) 0.1 0.0-0.2 10*3/uL Vitamin B12 Reviewed date:03/05/2025 03:50:03 PM Interpretation: Performing Lab: Notes/Report: Vitamin B12 353 180-914 pg/mL Urine Culture Reviewed date:08/06/2024 07:01:11 PM Interpretation: Performing Lab:, [facility], [address] [place] Notes/Report: Reason for Exam Urinary frequency S = SUSCEPTIBLE I = INTERMEDIATE R = RESISTANT Urine BLANK = DATA NOT AVAILABLE, OR DRUG NOT ADVISABLE OR TESTED R* = RESISTANCE DUE TO EXTENDED SPECTRUM BETA-LACTAMASES ESBL = EXTENDED SPECTRUM BETA-LACTAMASE TFG = THYMIDINE-DEPENDENT STRAIN WES = BETA-LACTAMASE POSITIVE IB = INDUCIBLE BETA-LACTAMASE. APPEARS IN PLACE OF 'S' WITH SPECIES KNOWN TO POSSESS INDUCIBLE BETA-LACTAMASES. POTENTIALLY THEY MAY BECOME RESISTANT TO ALL B-LACTAM DRUGS. [place] Count >100,000 [place] Count 75,000 Aerobic [place] Escherichia coli Amikacin <16 Amoxacillin/K Clavulanate <8/4 Ampicillin <8 Ampicillin/Sulbactam <4/2 Aztreonam <4 Cefazolin <2 Cefepime <2 Ceftazidime <1 Ceftazidime/Avibactam <4 Ceftolozane/Tazobactam <2 Ceftriaxone <1 Cefuroxime <4 Ciprofloxacin <0.25 Ertapenem <0.5 Gentamicin <2 Levofloxacin <0.5 Meropenem <1 Meropenem/Vaborbactam <2 Nitrofurantoin <32 Piperacillin/Tazobactam <8 Tetracycline <4 Tigecycline <2 Tobramycin <2 Trimethoprim/Sulfamethoxaz ole <0.5/9.5 Aerobic [place] Klebsiella pneumoniae Amikacin <16 Amoxacillin/K Clavulanate <8/4 Ampicillin/Sulbactam =8/4 Aztreonam <4 Cefazolin <2 Cefepime <2 Ceftazidime <1 Ceftazidime/Avibactam <4 Ceftolozane/Tazobactam <2 Ceftriaxone <1 Cefuroxime <4 Ciprofloxacin <0.25 Ertapenem <0.5 Gentamicin <2 Levofloxacin <0.5 Meropenem <1 Meropenem/Vaborbactam <2 Nitrofurantoin <32 Piperacillin/Tazobactam <8 Tetracycline <4 Tigecycline <2 Tobramycin <2 Trimethoprim/Sulfamethoxaz ole <0.5/9.5 Urinalysis automated Reviewed date:08/04/2024 08:59:51 AM Interpretation: Performing Lab: Notes/Report: Urine-Color yellow Appearance cloudy Specific [place] 1.025 pH 6.0 Glucose neg Protein neg Occult Blood 10 Bilirubin neg Urobilinogen,Semi-Qn 0.2 Nitrite, Urine pos Ketones neg WBC Esterase 500 US pelvic complete Reviewed date:09/20/2024 02:16:55 PM Interpretation: Performing Lab: Notes/Report: [facility] [place] [address] [place] [address] Ultrasound Report Signed Patient: Ziggy Joy MR#: [id number] : 1975 Acct:[id number] Age/Sex: 48 / F ADM Date: 09/20/24 Loc: Room: Type: [facility] Attending Dr: Rufina Rubio BRAKE RIDER-C Ordering Provider: Rufina Rubio Date of Service: 09/20/24 US/US pelvic complete: Recurrent UTI;Pelvic pain in female ([id number]) US/US transvaginal: PELIVIC PAIN IN FEMALE Copies [...] Gold Jr., D.O.09/20/2024 1:50 PM Dictation Location: [place] [address] Tech: Bethany Santacruz Transcribed By: JORGE 09/20/24 1350 Dictated By: Joe Gold Jr, DO 09/20/24 1348 Signed By: <Electronically signed by Joe Gold Jr, DO in OV> 09/20/24 1350 US bladder Reviewed date:09/20/2024 02:16:35 PM Interpretation: Performing Lab: Notes/Report: [facility] [place] [id number] Ultrasound Report Signed Patient: Ziggy Joy MR#: [id number] : 1975 Acct:[id number] Age/Sex: 48 / F ADM Date: 09/20/24 Loc: Room: Type: [facility] CLI Attending Dr: Rufina Rubio NP-C Ordering Provider: Rufina Rubio Date of Service: 09/20/24 US/US bladder: Recurrent UTI Copies to: Rufina Rubio BLADDER ULTRASOUND CLINICAL HISTORY: UTI. COMPARISON: CT abdomen and pelvis 07/22/2022 FINDINGS: The urinary bladder is partially distended with a volume of 239.8 cm3 ml. No shadowing stone or focal lesion. No significant postvoid residual. US/US bladder IMPRESSION: No acute findings. Impression dictated by: Joe Gold Jr., DGideonOGideon09/20/2024 1:48 PM Dictation Location: [place] [address] Tech: Bethany Santacruz Transcribed By: JORGE 09/20/24 1348 Dictated By: Joe Gold Jr, DO 09/20/24 1348 Signed By: <Electronically signed by Joe Gold Jr, DO in OV> 09/20/24 1348 MM diagnostic mammo BI w/CAD Reviewed date:09/22/2024 10:21:51 AM Interpretation: Performing Lab: Notes/Report: [facility] [address] [address] Ultrasound Report Signed Patient: Ziggy Joy MR#: [id number] : 1975 Acct:[id number] Age/Sex: 48 / F ADM Date: 09/22/24 Loc: [place] Room: Type: [facility] CLI Attending Dr: Rufina Rubio BRAKE RIDERTrayC Ordering Provider: Rufina Rubio Date of Service: 09/22/24 US/US breast BI limited: Breast lump in female;Breast cancer screening by mammogram ([id number]) MM/MM diagnostic mammo BI w/CAD: Breast lump [...] Gold Jr., D.O.09/22/2024 10:15 AM Dictation Location: [facility] Tech: Zo Cortés; Shauna Woodall Transcribed By: PWS 09/22/24 1015 Dictated By: Joe Gold Jr, DO 09/22/24 1000 Signed By: <Electronically signed by Joe Gold Jr, DO in OV> 09/22/24 1015 Urinalysis automated Reviewed date:09/18/2024 10:34:57 AM Interpretation: Performing Lab: Notes/Report: Urine-Color orange Appearance cloudy Specific [place] 1.030 pH 6.0 Glucose neg Protein 15 [...] testing is not performed at this lab. Patient Accounts Specialist to CFU/mL equivalent thresholds were established based on studies using known CFU/mL urine specimens performed at [facility] in [place], [place]. [facility] ([facility] [place] [address]; CLIA# [id number]; Packing And Final Assembly Supervisor Funmilayo Trevizo, PhD, [facility])). This test was developed, and its performance characteristics determined by [facility]. It has not been cleared or approved [...] Not Detected 19.961 - 24.689 ppm MM post biopsy RT w/CAD Reviewed date:10/03/2024 01:53:56 PM Interpretation: Performing Lab: Notes/Report: [facility] [place] [address] [place] [address] Ultrasound Report Signed with Addenda Patient: Ziggy Joy MR#: [id number] : 1975 Acct:[id number] Age/Sex: 48 / F ADM Date: 09/29/24 Loc: [facility] Room: Type: [facility] Attending Dr: Rufina Rubio BRAKE RIDER-C Ordering Provider: Rufina Rubio Date of Service: 09/29/24 US/US biopsy RT 1st lesion guid: R92.8 ([id number]) MM/MM post biopsy RT w/CAD: CLIP PLACEMENT Copies to: Rufina Rubio ADDENDUM 1 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 No malignancy is identified. This is believed to be concordant. Follow-up ultrasound in 6 months could be cons idered. Impression dictated by: Dara Hardy M.D.10/03/2024 1:26 PM Dictation Location: [place] [address] Addendum Dictated By: MD Dara Hardy Addendum Signed By: <Electronically signed by MD Dara Hardy in OV> 10/03/241325 Addendum Cosigned By: DD/ TD/TT: 10/03/24 [...] Dara Hardy M.D.09/29/2024 11:50 AM Dictation Location: [facility] Tech: Funmilayo ReynosoLinda Monique Diego Transcribed By: JORGE 09/29/24 1150 Dictated By: Dara Hardy MD 09/29/24 1102 Signed By: <Electronically signed by MD Dara Hardy in OV> 09/29/24 1150 Reason For Referral Reason PT SEEN Please sen d urgently [...] Pain in left toe(s) (M79.675) Referral Organization [facility] Referring Provider First Name Rufina Referring Provider Last Name Ramiro Referring Provider Speciality Nurse Prac titioner Referred Provider MIER BARCLAY Referred Provider Specialty Podiatry Referral Priority Urgent Reason *SCHEDULED 5/ kelly ateral ovarian cysts with L adnexal pain, would like to discuss with VISUAL BASIC DEVELOPER *FAXED 11/09 - FAXED REFERRAL UPDATE 11/16 Diagnosis 1 Unspecified ovarian cyst, right side (N83.201) Referral Organization [facility] Referring Provider First Name Pepe Referring Provider Last Name Charlie Referring Provider Speciality Family Juan Daniel wu Referred Provider Francisco J Philippe Referred Provider Specialty OB - Gynecol ogy Referral Priority Routine Medications Medication SIG (Take, Route, Frequency, Duration) Notes Start Date End Date Status OLANZapine 15 MG TAKE 1 TABLET BY SHABBIR TH DAILY; Duration: 90 days Active rOPINIRole HCl 1 MG TAKE ONE TABLET BY M OUTH ONE TO THREE HOURS BEFORE BEDTIME; Duration: 90 days Active Fluticasone Propionate 50 MCG/ACT 1 spray in each nostril Nasally Once a day; Duration: 30 days 08/04/2024 Active Montelukast Sodium 10 MG TAKE 1 TABLET B Y MOUTH DAILY; Duration: 90 Active Albuterol Sulfate (2.5 MG/3ML) 0.083% 3ml Inhalation four times a day (qid) as needed (prn); Duration: 30 days As needed Active Vitamin B12 1000 MCG 1 tablet Orally Onc e a day; Duration: 90 days 02/28/2025 05/28/2025 Active Omeprazole 40 MG 1 capsule 30 minutes before morning meal Orally Once a day; Duration: 30 day(s) Active tiZANidine HCl 2 MG [...] every 4 hrs; Duration: 30 days Active LORazepam 0.5 MG 1 tablet Orally Once a day; Duration: 30 days As needed 11/08/2024 Active Social [...] phone, visiting friends or family, going to faith or club meetings) More than 5 times a week How stressed are you? Stress is when someone feels tense, nervous, anxious, or cant sleep at night because their mind is troubled A little bit In the past year have you sp ent more than 2 nights in a row in a fpc, half-way, fci center, or juvenile correctional facility? No Are [...] cigarettes a day do you smoke? 11-20 Section Notes: 1 PPD FOR 20+ YEARS 1 PPD FOR 20+ YEARS 1 PPD FOR 20+ YEARS 12: 1 [...] W/U Status Risk Notes Problem Tobacco user (980224505) Nicotine dependence, unspecified, uncomplicated (F17.200) Active confirmed Problem Generalized anxiety disorder (41271014) Generalized anxiety disorder (F41.1) Active confirmed Problem Menopause (258663427) Menopausal and female climacteric states (N95.1) Active confirmed Problem Cough (53782330) Cough (R05) Active confirmed Problem Dysuria (95278554) Dysuria (R30.0) Active confirmed Problem Upper respiratory infection (92420436) URI (upper respiratory infection) (J06.9) Active confirmed Problem Anxiety (87581204) Anxiety (F41.9) Active confirmed Problem COPD - Chronic obstructive pulmonary disease (86612542) COPD (chronic obstructive pulmonary disease) (J44.9) Active confirmed Problem Bipolar disorder (78690973) Bipolar disorder (F31.9) Active confirmed Problem Restless legs syndrome (47754727) Restless leg syndrome (G25.81) Active confirmed Problem Panic attack (028420225) Panic attack (F41.0) Active confirmed Problem Functional dyspepsia (5529810) Acid indigestion (K30) Active confirmed Problem Derangement of right shoulder joint (disorder) (99490617227490 105) 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) Active confirmed Vital Signs Heart Rate 79 /min 02/28/2025 Temperature 98.0 degrees Fahrenheit 12/25/2024 Respiratory Rate 20 /min 02/28/2025 Oximetry 100 % 02/28/2025 Blood pressure diastolic 83 mm Hg 02/28/2025 Height 62 in 02/28/2025 Blood pressure systolic 123 mm Hg 02/28/2025 Weight 122.6 lbs 02/28/2025 BMI 22.42 kg/m2 02/28/2025 Encounters Encounter Location Date Provider Diagnosis [facility] [address] [place] [address] 06/15/2024 Rufina Rubio Bipolar disorder F31.9 ; Restless leg syndrome G25.81 and Nicotine dependence, unspecified, uncomplicated F17.200 [facility] [address] [place] [address] 06/21/2024 Rufina Rubio [facility] [address] [place] [address] 07/14/2024 Rufina Rubio [facility] [address] [place] [address] 08/06/2024 Rufina Rubio [facility] [address] [place] [address] 09/19/2024 Rufina Rubio [facility] [address] [place] [address] 09/20/2024 Rufina Rubio [facility] [address] [place] [address] 09/22/2024 Rufina Rubio [facility] [address] [place] [address] 09/22/2024 Rufina Rubio Abnormal mammogram R92.8 and Mass of upper outer quadrant of right breast N63.11 [facility] [address] [place] [address] 09/22/2024 Rufina Rubio [facility] [address] [place] [address] 09/26/2024 Rufina Rubio [place] [address] [place] [address] 10/03/2024 Rufina Rubio [address] [place] [address] 12/26/2024 Pepekamilla Guerra [address] [place] [address] 01/17/2025 Pepe Guerra COPD (chronic obstructive pulmonary disease) J44.9 and Bipolar disorder F31.9 [address] [place] [address] 02/16/2025 Pepe Guerra [facility] [address] [place] [address] 11/02/2024 Rufina Rubio [facility] [address] [place] [address] 02/07/2025 Pepe Guerra [facility] [address] [place] [address] 02/07/2025 Pepe Guerra [facility] [address] [place] [address] 09/18/2024 Rufinaquentin Chewson Nicotine dependence, unspecified, uncomplicated F17.200 ; Bipolar disorder F31.9 ; Vitamin B deficiency E53.9 ; COPD (chronic obstructive pulmonary disease) J44.9 ; Breast lump in female N63.0 ; Recurrent UTI N39.0 ; Breast cancer screening by mammogram Z12.31 ; Pelvic pain in female R10.2 ; Anxiety F41.9 and Vitamin B 12 deficiency E53.8 [facility] [address] [place] [address] 11/28/2024 Pepe Guerra Biceps tendinitis of left upper extremity M75.22 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 [address] [place] [address] 06/21/2024 Rufina Rubio Nicotine dependence, unspecified, uncomplicated F17.200 ; Bipolar disorder F31.9 ; COPD (chronic obstructive pulmonary disease) J44.9 ; Acid indigestion K30 and Vitamin B 12 deficiency E53.8 [facility] [address] [place] [address] 08/04/2024 Rufina Rubio Urinary frequency R35.0 ; Dysuria R30.0 ; Nicotine dependence, unspecified, uncomplicated F17.200 ; Vitamin B 12 deficiency E53.8 ; Fluid level behind tympanic membrane of right ear H65.91 and Vitamin B deficiency E53.9 [facility] [address] [place] [address] 02/28/2025 Pepe Guerra B12 deficiency E53.8 ; Pain, joint, shoulder, left M25.512 and Menopausal and female climacteric states N95.1 [facility] [address] [place] [address] 10/24/2024 Rufina Rubio Nicotine dependence, unspecified, uncomplicated F17.200 ; Anxiety F41.9 and Vitamin B 12 deficiency E53.8 [facility] [address] [place] [address] 11/08/2024 Pepe Guerra COPD (chronic obstructive pulmonary disease) J44.9 ; Anxiety F41.9 ; Bipolar disorder F31.9 ; Acid indigestion K30 ; Unspecified ovarian cyst, right side N83.201 and Unspecified ovarian cyst, left side N83.202 [facility] [address] [place] [address] 03/22/2024 Rufina Rubio Nicotine dependence, unspecified, uncomplicated F17.200 ; Pincer nail deformity L60.8 ; Vitamin B deficiency E53.9 ; COPD (chronic obstructive pulmonary disease) J44.9 ; Bipolar disorder F31.9 ; Internal derangement of right shoulder M24.811 ; Pain in right toe(s) M79.674 and Pain in left toe(s) M79.675 [facility] [address] [place] [address] 04/17/2024 Amy Recio Vitamin B 12 deficiency E53.8 [facility] [address] [place] [address] 05/18/2024 Amy Staceydominic Vitamin B deficiency E53.9 [facility] [address] [place] [address] 11/23/2024 Kylie Portillo Vitamin B deficiency E53.9 and Vitamin B 12 deficiency E53.8 [facility] [address] [place] [address] 12/25/2024 Kylie Portillo Vitamin B deficiency E53.9 and Vitamin B 12 deficiency E53.8 [facility] [address] [place] [address] 01/30/2025 Kylie Portillo Vitamin B deficiency E53.9 and Vitamin B 12 deficiency E53.8 Assessments Encounter Date Diagnosis (ICD Code) Assessment Notes Treatment Notes Treatment Clinical Notes Section Notes 03/22/2024 Nicotine dependence, unspecified, uncomplicated (ICD-10 - F17.200) Quitting Tobacco: Care Instructions material was published 03/22/2024 Pincer nail deformity (ICD-10 - L60.8) Pt was not able to schedule with her previous report specialist needed new referral. Will place urgently needs to have addressed pt is visibly uncomfortable. Wear open-toes or loose fitting shoes until improvement in symptoms. Patient verbalized understanding, in agreement with plan. 04/17/2024 Vitamin B 12 deficiency (ICD-10 - E53.8) 05/18/2024 Vitamin B deficiency (ICD-10 - E53.9) 06/15/2024 Bipolar disorder (ICD-10 - F31.9) 06/15/2024 Restless leg syndrome (ICD-10 - G25.81) 06/21/2024 Nicotine dependence, unspecified, uncomplicated (ICD-10 - F17.200) Quitting Tobacco: Care Instructions material was published 06/21/2024 Bipolar disorder (ICD-10 - F31.9) 08/04/2024 Dysuria (ICD-10 - R30.0) 08/04/2024 Urinary [...] back pain, go to the ER/urgent care. 09/18/2024 Nicotine dependence, unspecified, uncomplicated (ICD-10 - [...] quadrant of right breast (ICD-10 - N63.11) 10/24/2024 Nicotine dependence, unspecified, uncomplicated (ICD-10 - F17.200) Smoking cessation discussed. Pt verbalized understanding to complication of tobacco use including cardiac and pulmonary disease, as well as stroke. Pt declines interest in this time. 10/24/2024 Anxiety (ICD-10 - F41.9) Anxiety improved. Pt is working on relationship and difficulties in home that were stressing her out. Denies any new concerns. 11/08/2024 Anxiety (ICD-10 - F41.9) Increased situational anxiety related to home life with placement of her mother-in law in an INTERMEDIATE. Previosuly has done ok WIth small amount of lorazepam. Will refill same at this time. No current threat to self or others. 11/08/2024 COPD (chronic obstructive pulmonary disease) (ICD-10 - J44.9) Patient with symptoms well-controlled at this time. No side effects from medication. Will continue with current treatment plan. 11/23/2024 Vitamin B deficiency (ICD-10 - E53.9) [...] RICE therapy and physical therapy going forward. 12/22/2024 B12 deficiency (ICD-10 - E53.8) Tolerating current injection therapy well. No current symptoms. Will check labs. Further planning pending lab results. Will hold injection until labs obtained. 12/22/2024 Hot flashes (ICD-10 - R23.2) Patient with recent issues with hot flashes that are worsening. We did discuss checking labs for menopause with FSH. Will also check thyroid at this time. 12/25/2024 Vitamin B deficiency (ICD-10 - E53.9) 01/17/2025 COPD (chronic obstructive pulmonary disease) (ICD-10 - J44.9) 01/30/2025 Vitamin B deficiency (ICD-10 - E53.9) 02/28/2025 B12 deficiency (ICD-10 - E53.8) History [...] significantly improve symptoms. Patient uses ice and qtru-kne-pzzfabf pain medications for relief. - Ordered new script for physical therapy. - Prescribed oral steroid burst. - Advised against repeating injection at this time. 02/28/2025 Menopausal and female climacteric states (ICD-10 - N95.1) Severe hot flashes at night and excessive sweating. Anxiety and mood changes associated with menopause. Elevated FSH level previously noted. Declined Effexor due to prior adverse effects. Interested in trying smix-aev-azqokqe supplements for symptom relief. - Discussed options for symptom management including hormone replacement and supplements, alexandria root and rhodiola. - Recommended trial of tpvl-rcl-lsyrhyp menopause supplements prior to hormone therapy. - Plan to reassess in one month and consider hormone replacement if needed. 01/17/2025 Bipolar disorder (ICD-10 - F31.9) 01/30/2025 Vitamin B 12 deficiency (ICD-10 - E53.8) 12/22/2024 [facility] current use of antipsychotic medication (ICD-10 - Z79.899) 12/25/2024 Vitamin B 12 deficiency (ICD-10 - E53.8) 11/08/2024 Bipolar disorder (ICD-10 - F31.9) 11/23/2024 Vitamin B 12 deficiency (ICD-10 - E53.8) 10/24/2024 Vitamin B 12 deficiency (ICD-10 - E53.8) Given by MEHUL. Recommended to get her labs done. 09/18/2024 Vitamin B deficiency (ICD-10 - E53.9) Vitamin B12 inj. given today by MEHUL. 08/04/2024 Nicotine dependence, unspecified, uncomplicated (ICD-10 - F17.200) Smoking cessation discussed. Pt verbalized understanding to complication of tobacco use including cardiac and pulmonary disease, as well as stroke. Pt declines interest in this time. 03/22/2024 Vitamin B deficiency (ICD-10 - E53.9) B12 inj. given by MEHUL. 06/21/2024 COPD (chronic obstructive pulmonary disease) (ICD-10 - J44.9) COPD stable, continue medications as prescribed. Smoking cessation is encouraged. CP/pressure/sob, cough with fever, chills ER, 911 06/15/2024 Nicotine dependence, unspecified, uncomplicated (ICD-10 - F17.200) 03/22/2024 COPD (chronic obstructive pulmonary disease) (ICD-10 - J44.9) 08/04/2024 Vitamin B 12 deficiency (ICD-10 - E53.8) 06/21/2024 Acid indigestion (ICD-10 - K30) Reports stable with medication. 11/08/2024 Acid indigestion (ICD-10 - K30) 09/18/2024 COPD (chronic obstructive pulmonary disease) (ICD-10 - J44.9) COPD uncontrolled at this time. Will start patient on symbicort daily, discussed risks and side effects of medication. OK to use albuterol PRN for SOB, goal to use less frequently. Follow up if symptoms do not appreciably improve with therapy. Patient verbalized understanding, in agreement with plan. 09/18/2024 Breast lump in female (ICD-10 - N63.0) Will get US and mammogram. Does have palpable lump noted. 11/08/2024 Unspecified ovarian cyst, right side (ICD-10 - N83.201) Pt with small bilateral hemorrhagic cysts on recent pelvic US. she has had persistent adnexal pain, this epsiode for about 2 weeks. Will refer to VISUAL BASIC DEVELOPER for eval and discussion 08/04/2024 Fluid level behind tympanic membrane of right ear (ICD-10 - H65.91) Can use claritin she has, continue with the singulair. Will send in flonase. 03/22/2024 Bipolar disorder (ICD-10 - F31.9) Mood stable, denies concerns. Refills sent. 08/04/2024 Vitamin B deficiency (ICD-10 - E53.9) [...] agreement and subsequent refills. Pt verbalizes understanding. 06/21/2024 Vitamin B 12 deficiency (ICD-10 - E53.8) 11/08/2024 Unspecified ovarian cyst, left side (ICD-10 - N83.202) 09/18/2024 Recurrent UTI (ICD-10 - N39.0) Concern [...] Will get us of pelvis and bladder. 09/18/2024 Breast cancer screening by mammogram (ICD-10 - Z12.31) 03/22/2024 Pain in right toe(s) (ICD-10 - M79.674) Foot Pain: Care Instructions material was printed 03/22/2024 Pain in left toe(s) (ICD-10 - M79.675) 09/18/2024 Pelvic pain in female (ICD-10 - R10.2) 09/18/2024 Anxiety (ICD-10 - F41.9) You are [...] Vitamin B 12 deficiency (ICD-10 - E53.8) 03/22/2024 Other Body Mass Index : Care Instructions material was published 06/21/2024 Other Body Mass Index : Care Instructions material was published 11/23/2024 Other Body Mass Index : Care Instructions material was published Plan Of Treatment Pending Test Test Name Order Date Comprehensive Metabolic Panel 12/22/2024 Lipid Panel 12/22/2024 Thyroid Stim Hormone w/Rflx 12/22/2024 Complete Blood Count Auto Diff 5 Next Appt Details Provider Name:Pepe Good Pardeep ez, 03/28/2025 08:15:00 AM, [place] [place], [address], Insurance Providers Payer Name Payer Address Payer Phone Subscriber Number Group Number Insured Name Patient Relationship to Insured Coverage Start Date Coverage End Date [facility] [address] [place] [address] [id number] STEIBLE, ZIGGY Self - patient is the insured z[employer] -termed 22 [address] [place] [address] [id number] STEIBLE, ZIGGY Self - patient is the insured 0 3 zMEDICAID [facility] after [employer]- termed 22 [address] [place] [address] [id number] STEIBLE, ZIGGY Self - patient is the insured 0 3 [facility] Medicaid [address] [place] [address] [id number] STEIBLE, ZIGGY Self - patient is the insured 3 [facility] [address] [place] [address] [id number] STEIBLE, ZIGGY Self - patient is the insured 3 [facility] Medicaid [address] [place] [address] [id number] STEIBLE, ZIGGY Self - patient is the insured 3 5 [facility] [address] [place] [phone] [id number] STEIBLE, ZIGGY Self - patient is the insured 3 5 [facility] [address] [place] [address] [phone] [id number] ZIGGY JOY Self - patient is the [...] same well. B-12 injection 11/23/2024 1 mL B-12 injection 12/25/2024 1 mL Cyanocobalamin 01/30/2025 1 mL Medical (General) History Medical History [...] 1S Psych 09/23 Pancreatitis 05/25/14 RUQ Pain ([facility]) 2011
--- OUTSIDE RECORDS SUMMARY | 2025-03-05 18:17 | XMS_ITS | Clinical Summary ---
Author Organization [facility] Address [address] [place] [address] Care Team Providers Care Director Of Anesthesia Services Name Role Phone Unallocated, Noms Provider Primary Care Provi nitesh Rufina Rubio FINANCIAL SERVICES INTERN Unavailable [phone] Allergies Active Allergy Reactions Criticality Noted Date [...] aggie albuterol (2.5 MG/3ML) 0.083% nebulizer solution 04/23/2023 Active ciclopirox (Penlac) 8 % solution 03/16/2023 Active cyanocobalamin (Vitamin B-12) 1000 MCG tablet 02/03/2023 Act aggie FLUoxetine (PROzac) 40 MG capsule 05/18/2023 Active famotidine (Pepcid) 20 MG tablet Take 20 mg by mouth in the morning. 10/04/2022 Active folic acid (Folvite) 1 MG tablet 04/12/2023 Active tiZANidine (Zanaflex) 2 MG tablet 2022 Active montelukast (Singulair) 10 MG tablet 1 (one) time each day at the same time 09/28/2023 Active omeprazole (PriLOSEC) [address] capsule 1 (one) time each day at the same time Active albuterol HFA 90 mcg/act inhaler 01/22/2024 Active OLANZapine (ZyPREXA) 15 MG tablet 01/22/2024 Active rOPINIRole (Requip) 1 MG tablet 01/21/2024 Active potassium chloride ER (Micro-K) 10 MEQ ER capsule 10/21/2023 Acti ve diazePAM (Valium) 5 MG tabletIndicatio ns:Muscle Spasm Take 1 tablet (5 mg) by mouth as needed at bedtime for muscle spasms for up to 20 days 20 tablet 06/22/2024 Active fluticasone (Flonase) 50 MCG/ACT nasal spray 1 (one) time each day at the same time 08/04/2024 Active Active Problems No known active problems Family History Medical History Relation Name Comments Cervical cancer Mother Heart disease Paternal Grandfather Cancer Paternal Grandmother Rolando Diabetes Paternal Grandmother Rolando Relation Name Status Comments Mother Paternal Grandfather Paternal Grandmother Rolando Social History Tobacco Use Types Packs/Day Years Used Date Smoking Tobacco: Every Day Cigarettes 0.5 30.6 Started: 07/12/1994 Smokeless Tobacco: Never Comments:Smokes 6-10 [...] 10/13/2007 HPV/Cotest 10/13/2007 Mammogram 2017 Influenza Vaccine (#1) 2025 Insurance ANTHEM [employer] [place] Care Teams Director Of Anesthesia Services Relationship Specialty Start Date End Date Unallocated, Noms MD Anju [address] [place] [address] PCP - General 05/26/23 Rufina Rubio NP [address] [place] [address] Referring Physician Nurse Practitioner 01/06/24
--- OUTSIDE RECORDS SUMMARY | 2025-03-05 18:17 | XMS_ITS | Encounter Summary ---
Author Organization [facility] Address [address] [place] [address] Care Team Providers Care Bull Wheel Worker Name Role Phone Unallocated, Noms Provider Primary Care Provi nitesh Rufina Rubio IT TRAINEE Unavailable [phone] Encounter Details Date Type Department Care Team (Late st Contact Info) Description 05/25/2024 Orders Only [facility] [address] [facility] [place] [id number] Michael Torres, [address] [place] [address] S/P arthroscopy of right shoulder (Primary Dx) [...] Primary documented in this encounter Care Teams Bull Wheel Worker Relationship Specialty Start Date End Date Unallocated, Noms Provider, [address] [place] [address] PCP - General 05/26/23 Rufina Rubio NP [address] [place] [address] Referring Physician Nurse Practitioner 01/06/24 documented as of this encounter
--- OUTSIDE RECORDS SUMMARY | 2025-03-05 18:17 | XMS_ITS | Encounter Summary ---
Author Organization [facility] Address [address] [place] [address] Care Team Providers Care Court Bailiff Name Role Phone Unallocated, Alon Provider Primary Care Provi nitesh Rufina Rubio CONFERENCE SERVICES MANAGER Unavailable [phone] Encounter Details Date Type Department Care Team (Late st Contact Info) Description 05/19/2024 Abstract [facility] [address] [facility] [place] [address] Michael Torres, [address] [place] [address] Social History Tobacco Use Types Packs/Day Years [...] on filedocumented in this encounter Care Teams Court Bailiff Relationship Specialty Start Date End Date Unallocated, Alon ProviderMD [address] [place] [address] PCP - General 05/26/23 Rufina Rubio NP [address] [place] [address] Referring Physician Nurse Practitioner 01/06/24 documented as of this encounter
--- NOTE | 2025-03-05 18:22 | XR_ITS ---
The [address] [address] Patient Name: ZIGGY SANCHEZ MRN: [id number] date: 1975 Sex: F Assigned Patient Location: ED.MAIN Current Patient Location: ED.MAIN Accession/Order Number: [id number] Exam Date: 03/05/2025 18:18 Report Date: 03/05/2025 18:42 At the request of: BAILEY SORTO DO Procedure: XR shoulder LT min 2V XR shoulder LT min 2V 03/05/2025 6:22 PM SIGNS AND SYMPTOMS: Left shoulder pain chronically PROTOCOL: Frontal periventricular and lateral views of the left shoulder COMPARISON: 11/26/2024 FINDINGS: Degenerative changes are noted in the acromioclavicular joint. There is mild narrowing of the glenohumeral joint. There is no fracture or dislocation. Visualized left hemithorax is grossly intact. XR/XR shoulder LT min 2V IMPRESSION: No fracture or dislocation. Mild degenerative changes are noted in the left shoulder. Impression dictated by: Rj Cervantes M.D. 03/05/2025 6:42 PM Dictation Location: [place] [address] Electronically authenticated by: [id number] Y Date: 03/05/2025 18:42
[2025-03-05] MEDS: HYDROCODONE/ACET 5-325 MG TABLET 1 TAB PO (20:05)
--- NOTE | 2025-03-05 20:11 | ED.GENADUL1 ---
HPI HPI - General Adult General Chief complaint: Extremity Injury, Upper Stated complaint: Upper Pain Time Seen by Provider: 03/05/25 19:01 Source: patient Mode of arrival: walk-in Limitations: no limitations History of Present Illness HPI narrative: Left upper extremity pain x 2 months. Patient has history of right sided rotator cuff tear. Patient denies any falls, injury she is taking prednisone after seeing primary care recently. Denies any headache, neck pain, back pain, loss of consciousness, loss of sensation or motion. Symptoms are mild in severity worse with elevation and flexion. Nothing improves symptoms. Onset (ago): month(s) (2) Location: Reports upper extremity Radiation: Reports extremity Severity: mild Relieving factors: Reports none Exacerbating factors: Reports movement Associated symptoms: Reports denies other symptoms Treatments prior to arrival: Reports other (Prednisone) Related Data Home Medications ?Medication ?Instructions ?Recorded ?Confirmed albuterol sulfate 2.5 mg/3 mL 2.5 mg inhalation Q6H PRN 06/05/23 03/05/25 (0.083 %) solution for nebulization shortness of breath or wheezing albuterol sulfate 90 mcg/actuation 2 puff inhalation Q6H PRN 07/21/23 03/05/25 aerosol inhaler shortness of breath or wheezing fluoxetine 40 mg capsule 40 mg PO QDAY 07/21/23 03/05/25 olanzapine 10 mg tablet 10 mg PO QDAY 07/21/23 03/05/25 ropinirole 0.5 mg tablet 1 mg PO .qhs 07/21/23 03/05/25 budesonide-formoterol HFA 80 2 inh inhalation BID 12/10/24 03/05/25 mcg-4.5 mcg/actuation aerosol inhaler (Breyna) prednisone 20 mg tablet 20 mg PO DAILY 03/05/25 03/05/25 Previous Rx's ?Medication ?Instructions ?Recorded tizanidine 2 mg capsule (Zanaflex) 2 mg PO Q8H PRN muscle spasm #12 12/20/23 caps hydrocodone 5 mg-acetaminophen 325 1 tab PO Q8H PRN pain #10 tabs 03/05/25 mg tablet Allergies Allergy/AdvReac Type Severity Reaction Status Date / Time hydroxyzine (From Vistaril) Allergy Severe Rash Verified 03/05/25 18:09 ketorolac (From Toradol) Allergy Severe Rash Verified 03/05/25 18:09 magnesium sulfate Allergy Severe Rash Verified 03/05/25 18:09 naproxen (From Anaprox) Allergy Severe Rash Verified 03/05/25 18:09 aspirin AdvReac Severe Vomiting Verified 03/05/25 18:09 haloperidol (From Haldol) AdvReac Severe lock jaw Verified 03/05/25 18:09 Opioid HPI Opioid Management Most Recent Opioid Data: Last Pain Scale 9 Today, 20:05 Last MAR Pain Assessment Today, 20:05 Review of Systems ROS Status of ROS 10 or more systems reviewed and unremarkable except as noted in history and below Constitutional Denies: fever or chills Eyes Denies: change in vision or blurry vision Cardiovascular Denies: chest pain Respiratory Denies: shortness of breath Gastrointestinal Denies: abdominal pain, nausea or vomiting Genitourinary Denies: painful urination or blood in urine Musculoskeletal Reports: extremity pain and joint pain; Denies: back pain, neck pain or extremity swelling Integumentary/Breast Denies: rash Neurological Denies: headache Hematologic/Lymphatic Denies: easy bruising Allergic/Immunologic Denies: hives PFSH PFS Social History Smoking status: Current every day smoker Little interest or pleasure in doing things: not at all Feeling down, depressed, or hopeless: not at all Exam Constitutional Vital Signs, click to edit/add: Last Vital Signs Pulse 82 03/05/25 18:07 Resp 18 03/05/25 18:07 BP 150/85 H 03/05/25 18:07 Pulse Ox 100 03/05/25 18:07 O2 Del Method Room Air 03/05/25 18:07 Documenting provider has reviewed patient's vital signs: yes Common normals: no apparent distress and oriented x3 General appearance: cooperative and comfortable HENPA Common normals: normocephalic Nose: external nose normal and nares normal Eye Common normals: PERRL and EOMs intact bilaterally Neck & C-Spine Common normals: full ROM and supple General: no tenderness Cervical spine: cervical ROM normal Respiratory Common normals: normal respiratory effort Effort & inspection: able to speak in complete sentences Auscultation: clear to auscultation bilaterally Cardio Common normals: regular rate, regular rhythm, S1 normal heart sound and S2 normal heart sound GI Common normals: Normal to inspection, nondistended, normoactive bowel sounds present, soft to palpation and non-tender Common normals: no CVA tenderness Extremity General: normal exam except as noted; pulses normal Left upper extremity: shoulder joint (To palpation decreased flexion and elevation) Left shoulder joint: palpation; no findings for lower arm, no findings for wrist and no findings for hand and digits Other: Patient retains distal range of motion and peripheral pulses. Neuro Common normals: oriented x3 and no sensory deficits noted Sensorium/orientation: awake and alert Course Vital Signs Vital signs: Vital Signs Pulse Rate 82 03/05/25 18:07 Respiratory Rate 18 03/05/25 18:07 Blood Pressure 150/85 H 03/05/25 18:07 Pulse Oximetry 100 03/05/25 18:07 Oxygen Delivery Method Room Air 03/05/25 18:07 Pulse Rate 82 03/05/25 18:07 Respiratory Rate 18 03/05/25 18:07 Blood Pressure 150/85 H 03/05/25 18:07 Pulse Oximetry 100 03/05/25 18:07 Oxygen Delivery Method Room Air 03/05/25 18:07 Medical Decision Making MDM Narrative Medical decision making narrative: Orthopedic she sees Dr. Torres for follow-up with Dr. Torres will add sling [place] 5 mg patient denies any pain contrast denies driving. Discussed plan of care with patient with negative x-rays will continue prednisone follow-up with orthopedics patient agreeable plan of care Differential Diagnosis Differential Diagnosis: Left shoulder pain left shoulder strain rotator cuff. Imaging Data shoulder xray: Radiologist's impression: ITS Impressions Shoulder X-Ray 03/05/25 18:22 IMPRESSION: No fracture or dislocation. Mild degenerative changes are noted in the left shoulder. Impression dictated by: Rj Cervantes M.D. 03/05/2025 6:42 PM Dictation Location: [place] [address] Electronically authenticated by: [id number] Y Date: 03/05/2025 18:42 Discharge Plan Discharge Chief Complaint: Extremity Injury, Upper Clinical Impression: Acute pain of left shoulder Patient Disposition: Home, Self-Care Time of Disposition Decision: 20:18 Condition: Good Prescriptions / Home Meds: New hydrocodone-acetaminophen 5-325 mg tablet 1 tab PO Q8H PRN (Reason: pain) Qty: 10 0RF No Action tizanidine [Zanaflex] 2 mg capsule 2 mg PO Q8H PRN (Reason: muscle spasm) Qty: 12 0RF budesonide-formoterol [Breyna] 80-4.5 mcg/actuation HFA aerosol inhaler 2 inh inhalation BID albuterol sulfate 2.5 mg /3 mL (0.083 %) solution for nebulization 2.5 mg inhalation Q6H PRN (Reason: shortness of breath or wheezing) fluoxetine 40 mg capsule 40 mg PO QDAY olanzapine 10 mg tablet 10 mg PO QDAY ropinirole 0.5 mg tablet 1 mg PO .qhs albuterol sulfate 90 mcg/actuation HFA aerosol inhaler 2 puff INHALATION Q6H PRN (Reason: shortness of breath or wheezing) prednisone 20 mg tablet 20 mg PO DAILY Print Language: Moroccan Instructions: Shoulder Pain (ED) Additional Instructions: Dr. Torres from orthopedics wear sling do not drive or operate equate while taking pain medicine including [place]. Referrals: DR torres/Orthopedics [Other] - 1 week FAMILY,[facility] [Primary Care Provider] - 1 week
--- NOTE | 2025-03-05 20:20 | ED_ITS ---
<Statement entered by CARISSA OATES II - 03/05/25 20:22> Duplicate document HPI HPI - General Adult General Chief complaint: Extremity Injury, Upper Stated complaint: Upper Pain Time Seen by Provider: 03/05/25 19:01 Source: patient Mode of arrival: walk-in Limitations: no limitations History of Present Illness Location: Reports upper extremity Relieving factors: Reports none Exacerbating factors: Reports movement Associated symptoms: Reports denies other symptoms Treatments prior to arrival: Reports other (Prednisone) Related Data Home Medications ?Medication ?Instructions ?Recorded ?Confirmed albuterol sulfate 2.5 mg/3 mL 2.5 mg inhalation Q6H MD N 06/05/23 03/05/25 (0.083 %) solution for nebulization shortness of breat h or wheezing albuterol sulfate 90 mcg/actuation 2 puff inhalation Q 6H PRN 07/21/23 03/05/25 aerosol inhaler shortness of breath or wheez ing fluoxetine 40 mg capsule 40 mg PO QDAY 07/21/2303/05 olanzapine 10 mg tablet 10 mg PO QDAY 07/21/2303/05 ropinirole 0.5 mg tablet 1 mg PO .qhs 07/21/23 budesonide-formoterol HFA 80 2 inh inhalation BID 08/0503/05/25 mcg-4.5 mcg/actuation aerosol inhaler (Breyna) prednisone 20 mg tablet 20 mg PO DAILY 03/05/2502/10 Previous Rx's ?Medication ?Instructions ?Recorded tizanidine 2 mg capsule (Zanaflex) 2 mg PO Q8H PRN mus javier spasm #12 12/20/23 caps hydrocodone 5 mg-acetaminophen 325 1 tab PO Q8H PRN pa in #10 tabs 03/05/25 mg tablet Allergies Allergy/AdvReac Type Severity Reaction Status Date / Time hydroxyzine (From Vistaril) Allergy Severe Rash Verified 03/05/25 18:09 ketorolac (From Toradol) Allergy Severe Rash Verified 03/05/25 18:09 magnesium sulfate Allergy Severe Rash Verified 03/05/25 18:09 naproxen (From Anaprox) Allergy Severe Rash Verified 03/05/25 18:09 aspirin AdvReac Severe Vomiting Verified 03/05/25 18:09 haloperidol (From Haldol) AdvReac Severe lock jaw Verified 03/05/25 18:09 Opioid HPI Opioid Management Most Recent Opioid Data: Last Pain Scale 9 Today, 20:05 Last MAR Pain Assessment Today, 20:05 PFSH PFS Social History Smoking status: Current every day smoker Little interest or pleasure in doing things: not at all Feeling down, depressed, or hopeless: not at all Exam Constitutional Vital Signs, click to edit/add: Last Vital Signs Pulse 82 03/05/25 18:07 Resp 18 03/05/25 18:07 BP 150/85 H 03/05/25 18:07 Pulse Ox 100 03/05/25 18:07 O2 Del Method Room Air 03/05/25 18:07 Course Vital Signs Vital signs: Vital Signs Pulse Rate 82 03/05/25 18:07 Respiratory Rate 18 03/05/25 18:07 Blood Pressure 150/85 H 03/05/25 18:07 Pulse Oximetry 100 03/05/25 18:07 Oxygen Delivery Method Room Air 03/05/25 18:07 Pulse Rate 82 03/05/25 18:07 Respiratory Rate 18 03/05/25 18:07 Blood Pressure 150/85 H 03/05/25 18:07 Pulse Oximetry 100 03/05/25 18:07 Oxygen Delivery Method Room Air 03/05/25 18:07 Medical Decision Making [facility] Narrative Medical decision making narrative: oarrS evaluated no current prescriptions Discharge Plan Discharge Chief Complaint: Extremity Injury, Upper Clinical Impression: Acute pain of left shoulder Patient Disposition: Home, Self-Care Time of Disposition Decision: 20:18 Condition: Good Prescriptions / Home Meds: New hydrocodone-acetaminophen 5-325 mg tablet 1 tab PO Q8H PRN (Reason: pain) Qty: 10 0RF No Action tizanidine [Zanaflex] 2 mg capsule 2 mg PO Q8H PRN (Reason: muscle spasm) Qty: 12 0RF budesonide-formoterol [Breyna] 80-4.5 mcg/actuation HFA aerosol inhaler 2 inh inhalation BID albuterol sulfate 2.5 mg /3 mL (0.083 %) solution for nebulization 2.5 mg inhalation Q6H PRN (Reason: shortness of breath or wheezing) fluoxetine 40 mg capsule 40 mg PO QDAY olanzapine 10 mg tablet 10 mg PO QDAY ropinirole 0.5 mg tablet 1 mg PO .qhs albuterol sulfate 90 mcg/actuation HFA aerosol inhaler 2 puff INHALATION Q6H PRN (Reason: shortness of breath or wheezing) prednisone 20 mg tablet 20 mg PO DAILY Print Language: Cymro Instructions: Shoulder Pain (ED) Additional Instructions: Dr. Torres from orthopedics wear sling do not drive or operate equate while taking pain medicine including [place]. Referrals: DR torres/Orthopedics [Other] - 1 week [facility]ILY,[facility] [Primary Care Provider] - 1 week
--- NOTE | 2025-03-05 20:26 | PC.NURSE ---
i gave this patient verbal and written discharge orders along with 1 e-script and this patient voices yes to understanding these. at time of discharge this patient voices no concerns, needs and shows no signs of distress
== END 2025-03-05 20:26 | disposition home or self-care (01) ==
PROVIDERS: Emergency Provider Student in an Organized Health Care Education/Training Program
DX: M25.512 Pain in left shoulder (principal); F17.200 Nicotine dependence, unspecified, uncomplicated
CPT/HCPCS: 73030; 99284

== ENCOUNTER 2025-05-03 19:05 | Emergency (ER) | payer MEDICARE, SELFPAY ==
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
--- OUTSIDE RECORDS SUMMARY | 2025-01-23 11:00 | XMS_ITS ---
Author Organization [employer] es Address [address] [place] [address] Care Team Providers Care Childcare Aide Name Role Phone Pepe Guerra Primary Care Provider REASON FOR VISIT 8wk L shoulder Medications Medication SIG (Take, Route, Frequency, Duration) Notes Start Date End Date Status Symbicort 160-4.5 MCG/ACT Aerosol 2 puff s Inhalation Twice per day; Duration: 30 days 507/5ActiveOLANZapine 15 MG TabletTAKE 1 TABLET BY MOUTH DAILY; Duration: 90 daysActiverOPINIRole HCl 1 MG TabletTAKE ONE TABLET BY MOUTH ONE TO THREE HOURS BEFORE BEDTIME; Duration: 90 daysActiveAlbuterol Sulfate HFA 108 (90 Base) MCG/ACT Aerosol Solution2 puff as needed Inhalation every 4 hrs; Duration: 30 daysActiveFLUoxetine HCl 40 MG Capsuletake 1 capsule by mouth once daily Orally Once a day; Duration: 90 daysActiveAlbuterol Sulfate (2.5 MG/3ML) 0.083% Nebulization Solution 3ml Inhalation four times a day (qid) as needed (prn); Duration: 30 days As needed ActiveOmeprazole 40 MG Capsule Delayed Release1 capsule 30 minutes before morning meal Orally Once a day; Duration: 30 day(s)ActiveFluticasone Propionate 50 MCG/ACT Suspension1 spray in each nostril Nasally Once a day; Duration: 30 days5ActiveMontelukast Sodium 10 MG TabletTAKE 1 TABLET BY MOUTH DAILY; Duration: 90ActiveLORazepam 0.5 MG Tablet 1 tablet Orally Once a day; Duration: 30 days As needed 11/08/2024tive Social History Sex Assigned At : Social History Observation Description Sex Assigned At Female Encounters Encounter Location Date Provider Diagnosis [facility] [address] [place] [address] 01/23/2025 Pepe Charlie Plan Of Treatment Next Appt Details Provider Name:Pepe Good Pardeep meedllin, 05/17/2025 08:15:00 AM, [facility] [place], [address], Provider Name:Kylie Portillo, 06/04/2025 09:00:00 AM, [facility] [place], [address], History and Physical Notes * HPI (History of Present Illness) CategorySub-CategoryDetailNotesCategory NotesConstitutional Patient presents for a 8 week follow up on LT shoulder pain. Has pending labs since December Progress Notes * TOBY SANCHEZB: 8 (49 yo F)Acc No.[id number]:01/23/2025 Progress Notes Patient: ZIGGY ELI :?Pepe INÉS GuerraOB:1975???Age:49 Y???Sex: FemaleDate:01/23/2025Phone:[phone]:[id number] [facility], [address], [place], [id number] Subjective: * Chief Complaints: * 8 wk L shoulder * HPI: ???Constitutional:?Patient presents for a 8 week follow up on LT shoulder pain. Has pending labs since December. * Medications: T akingrOPINIRole HCl 1 MG Tablet TAKE ONE TABLET BY MOUTH ONE TO THREE HOURS BEFORE BEDTIME OLANZapine 15 MG Tablet TAKE 1 TABLET BY MOUTH DAILY Symbicort 160-4.5 MCG/ACT Aerosol 2 puffs Inhalation Twice per day , stop date 02/06/2025Omeprazole 40 MG Capsule Delayed Release 1 capsule 30 minutes before morning meal Orally Once a day Albuterol Sulfate (2.5 MG/3ML) 0.083% Nebulization Solution 3ml Inhalation four times a day (qid) as needed (prn) As neededMontelukast Sodium 10 MG Tablet TAKE 1 TABLET BY MOUTH DAILY Fluticasone Propionate 50 MCG/ACT Suspension 1 spray in each nostril Nasally Once a day LORazepam 0.5 MG Tablet 1 tablet Orally Once a day As neededAlbuterol Sulfate HFA 108 (90 Base) MCG/ACT Aerosol Solution 2 puff as needed Inhalation every 4 hrs FLUoxetine HCl 40 MG Capsule take 1 capsule by mouth once daily Orally Once a day Taking rOPINIRole HCl 1 MG Tablet TAKE ONE TABLET BY MOUTH ONE TO THREE HOURS BEFORE BEDTIME Taking OLANZapine 15 MG Tablet TAKE 1 TABLET BY MOUTH DAILY Taking Symbicort 160-4.5 MCG/ACT Aerosol 2 puffs Inhalation Twice per day , stop date 02/06/2025Taking Omeprazole 40 MG Capsule Delayed Release 1 capsule 30 minutes before morning meal Orally Once a day Taking Albuterol Sulfate (2.5 MG/3ML) 0.083% Nebulization Solution 3ml Inhalation four times a day (qid) as needed (prn) As neededTaking Montelukast Sodium 10 MG Tablet TAKE 1 TABLET BY MOUTH DAILY Taking Fluticasone Propionate 50 MCG/ACT Suspension 1 spray in each nostril Nasally Once a day Taking LORazepam 0.5 MG Tablet 1 tablet Orally Once a day As neededTaking Albuterol Sulfate HFA 108 (90 Base) MCG/ACT Aerosol Solution 2 puff as needed Inhalation every 4 hrs Taking FLUoxetine HCl 40 MG Capsule take 1 capsule by mouth once daily Orally Once a day Billing Information: * Procedure Codes: * Electronic signature of Pepe Guerra DO, [id number] on 05/03/2025 at 07:12 PM EDTSign off status: Pending * Provider: Alistair Guerra DO Date: 0 01/23/2025 Generated for Printing/Faxing/eTransmitting on:?05/03/2025 07:12 PM EDT
--- OUTSIDE RECORDS SUMMARY | 2025-02-07 10:30 | XMS_ITS ---
Author Organization [employer] es Address [address] [place] [address] Care Team Providers Care Vamp Liner Name Role Phone Pepe Guerra Primary Care Provider REASON FOR VISIT 3month f/u Social History Sex Assigned At : Social History Observation Description Sex Assigned At Female Encounters Encounter Location Date Provider Diagnosis [facility] [address] [place] [address] 02/07/2025 Pepe Guerra Plan Of Treatment Next Appt Details Provider Name:Pepe medellin, 05/17/2025 08:15:00 AM, [address] [place], [address], Provider Name:Kylie Portillo, 06/04/2025 09:00:00 AM, [address] [place], [address], Progress Notes * CHAUNCEY SANCHEZIDOB: 8 (49 yo F)Acc No.[id number]:02/07/2025 Progress Notes Patient: CHAUNCEY ELII :?SHAYY Morgan:1975???Age:49 Y???Sex: FemaleDate:02/07/2025Phone:[phone]:[id number], [address], [id number] Subjective: * Chief Complaints: * 3 month f/u Billing Information: * Procedure Codes: * Electronic signature of Pepe Guerra DO, [id number] on 05/03/2025 at 07:13 PM EDTSign off status: Pending * Provider: Alistair Guerra DO Date: 0 02/07/2025 Generated for Printing/Faxing/eTransmitting on:?05/03/2025 07:13 PM EDT
--- OUTSIDE RECORDS SUMMARY | 2025-05-01 04:00 | XMS_ITS ---
Author Organization [facility] Address [address] [place] [address] Care Team Providers Care Senior Research Scientist Name Role Phone Pepe Guerra Primary Care Provider REASON FOR VISIT 4wk- HRT Social History Sex Assigned At : Social History Observation Description Sex Assigned At Female Encounters Encounter Location Date Provider Diagnosis [facility] [address] [place] [address] 05/01/2025 Pepe Guerra Plan Of Treatment Next Appt Details Provider Name:Pepe medellin, 05/17/2025 08:15:00 AM, [address] [place], [address], Provider Name:Kylie Portillo, 06/04/2025 09:00:00 AM, [address] [place], [address], Progress Notes * CHAUNCEY SANCHEZIDOB: 8 (49 yo F)Acc No.[id number]:05/01/2025 Progress Notes Patient: CHAUNCEY ELII :?INÉS MorganOB:1975???Age:49 Y???Sex: FemaleDate:05/01/2025Phone:[phone]:[address], [place], [id number] Subjective: * Chief Complaints: * 4 wk- HRT * Electronic signature of Pepe Guerra DO, [phone] on 05/03/2025 at 07:13 PM EDTSign off status: Pending * Provider: Alistair Guerra DO Date: Generated for Printing/Faxing/eTransmitting on:?05/03/2025 07:13 PM EDT
--- OUTSIDE RECORDS SUMMARY | 2025-05-03 04:00 | XMS_ITS ---
Author Organization [facility] [employer] es Address [address] [place] [address] Care Team Providers Care Public Health Epidemiologist Name Role Phone Pepe Guerra Primary Care Provider Allergies Allergen (clinical drug ingredient) Drug/Non Drug Allergy documented on EMR Reaction Allergy Type Onset Date Status aspirin ASA (uncoded) rash Allergy ActiveAnaproxrashDrug AllergyActivemetronidazoleFlagylrashDrug AllergyActive HaldolanaphylaxisDrug AllergyActivemagnesium sulfateMagnesium Sulfatevomiting Drug AllergyActivemetoclopramideReglanrashDrug AllergyActivehydroxyzineVistaril vomitingDrug AllergyActiveketorolacKetorolachivesDrug AllergyActiveNon-steroidal anti-inflammatory agent (FN)NSAIDsrashDrug AllergyActivesulfacetamide SulfacetamiderashDrug AllergyActive REASON FOR VISIT 4wk- HRT Medications Medication SIG (Take, Route, Frequency, Duration) Notes Start Date End Date Status Estradiol 0.025 MG/24HR Patc h Twice Weekly 1 patch to skin changing every 72 hours Transdermal every 3 days; Duration: 30 days 03/28/2025Not-Taking/PRNFLUoxetine HCl 40 MG Capsuletake 1 capsule by mouth once daily Orally Once a day; Duration: 90 daysActiveFluticasone Propionate 50 MCG/ACT Suspension1 spray in each nostril Nasally Once a day; Duration: 30 days 5ActiveLORazepam 0.5 MG Tablet 1 tablet Orally Once a day; Duration: 30 days As needed 5ActiveAlbuterol Sulfate HFA 108 (90 Base) MCG/ACT Aerosol Solution2 puff as needed Inhalation every 4 hrs; Duration: 30 daysActiveMontelukast Sodium 10 MG TabletTAKE 1 TABLET BY MOUTH DAILY; Duration: 90ActiverOPINIRole HCl 1 MG TabletTAKE ONE TABLET BY MOUTH ONE TO THREE HOURS BEFORE BEDTIME; Duration: 90 daysActiveOLANZapine 15 MG TabletTAKE 1 TABLET BY MOUTH DAILY; Duration: 90 days ActiveOmeprazole 40 MG Capsule Delayed Release1 capsule 30 minutes before morning meal Orally Once a day; Duration: 30 day(s)ActiveAlbuterol Sulfate (2.5 MG/3ML) 0.083% Nebulization Solution 3ml Inhalation four times a day (qid) as needed (prn); Duration: 30 days As needed ActiveSymbicort 160-4.5 MCG/ACT Aerosol2 puffs Inhalation Twice per day; Duration: 30 days/5ActiveVitamin B12 1000 MCG Tablet1 tablet Orally Once a day; Duration: 90 days/5Active Social History Tobacco Use: Social History Observation Description Date Details (start date - stop date) Current Smoker NA - NA Sex Assigned At : Social History Observation Description Sex Assigned At Female Social History GeneralSocial InfoQuestionAnswerNotesTransition of Care:ER/UC/hospital since last office visit?NoSpecialist seen since last office visit?NoSubstance abuse/mental health issues of patient/familyPatient -DeniesAbility to understand healthcare/treatmentPatient:FairSexual Hx:Had sex in the last 12 months (vaginal, oral, or anal)?Yes? withMen onlyHave you ever had an STD?Yes? Herpes? YesSocial/Support Concerns:Patient:NoBehaviors affecting healthPoor/Risky Behaviors:Denies-Communication Barrier:Language Barrier?:NoFood Insecurity ScreeningSocial InfoQuestionAnswerNotesFood Insecurity ScreeningWithin the last 12 months, have you been worried about your food running out before you received money to buy more?NoWithin the last 12 months, did the food you buy not last, and you didn't have money to buy more?NoWithin the last 12 months, have you had any difficulty affording to eat balanced meals including all food groups (fruits, vegetables, protein, and whole grains)?NoDrug/Alcohol:Social Info QuestionAnswerNotesAUDIT-C (Standard)Did you have a drink containing alcohol in the past year?XkNpebxs4KjszkprgcohzycUgxlgcybPpnppkw Use:Social InfoQuestion AnswerNotesTobacco Control (Standard)Tobacco use:Current smoker? How often do you smoke cigarettes?Every day? How many cigarettes a day do you smoke?11-20 Vital Signs Blood pressure systolic 134 mm Hg 05/03/20 25 Blood pressure diastolic 75 mm Hg 025 Heart Rate 72 /min 05/03/2025 Respiratory Rate 20 /min 05/03/2025 Height 62 in 05/03/2025 Weight 129.4 lbs 05/03/2025 BMI 23.66 kg/m2 05/03/2025 Oximetry 99 % 05/03/2025 Encounters Encounter Location Date Provider Diagnosis [facility] [address] [place] [address] 05/03/2025 Pepe Guerra Menopausal and femal e climacteric states N95.1 and Vitamin B 12 deficiency E53.8 Assessments Encounter Date Diagnosis (ICD Code) Assessment Notes Treatment Notes Treatment Clinical Notes Section Notes 05/03/2025 Menopausal and female climacteri c states (ICD-10 - N95.1) Menopausal symptoms including hot flashes and night sweats improved with estrogen patch. Patient experienced headaches, visual changes, and nausea attributed to the patch. Symptoms returned after discontinuing the patch. Patient is seeking alternative estrogen preparations or dosing strategies. - Discussed options for alternative estrogen preparations, including vaginal ring and topical gels. - Suggested trial of cutting estrogen patch in half or intermittent use to reduce side effects. - Plan for virtual follow-up in two weeks to assess response to dosing changes. 05/03/2025Vitamin B 12 deficiency (ICD-10 - E53.8) Patient is currently taking vitamin B12 pills but feels they may not be effective. Patient is hesitant to stop vitamin B12 pills prior to upcoming surgery. Considering switching back to vitamin B12 injections. - Plan to administer vitamin B12 injection before surgery. Plan Of Treatment Treatment Notes Assessment Notes Menopausal and female climacteric states Menopausal symptoms including hot flashes and night sweats improved with estrogen patch. Patient experienced headaches, visual changes, and nausea attributed to the patch. Symptoms returned after discontinuing the patch. Patient is seeking alternative estrogen preparations or dosing strategies. - Discussed options for alternative estrogen preparations, including vaginal ring and topical gels. - Suggested trial of cutting estrogen patch in half or intermittent use to reduce side effects. - Plan for virtual follow-up in two weeks to assess response to dosing changes. Vitamin B 12 deficiency Patient is currently taking vitamin B12 pills but feels they may not be effective. Patient is hesitant to stop vitamin B12 pills prior to upcoming surgery. Considering switching back to vitamin B12 injections. - Plan to administer vitamin B12 injection before surgery. Next Appt Details Follow Up: 2 Weeks, Reason: Provider Name:Pepe medellin, 05/17/2025 08:15:00 AM, [address] [place], [address], Provider Name:Kylie Alistair Portillo, 06/04/2025 09:00:00 AM, [address] [place], [address], Medications Administered Medication Instructions Date of Administration Dosage Notes Cyanocobalamin mL History and Physical Notes * HPI (History of Present Illness) CategorySub-CategoryDetailNotesCategory NotesDepression ScreeningPHQ-2 (2015 Edition)Little interest or pleasure in doing things?: Not at allFeeling down, depressed, or hopeless?: Not at allTotal Score: 0Constitutional Ziggy Joy, a 49-year-old female, presented for a chronic condition follow- up focused on her menopausal symptoms and vitamin B12 management. She described a challenging experience with her estrogen patch, noting that while it provided significant relief from hot flashes and night sweats-especially about a week after starting-it also led to troublesome side effects. She reported headaches thatwould begin with visual changes, describing her vision as looking at a telescope, followed by sweating and nausea. These symptoms prompted her to discontinue the patch this past Wednesday, despite having recently refilled her prescription. Ziggy discussed these issues with her mother and expressed a desire to find a more tolerable solution, considering options such as cutting the patch in half orusing it intermittently. In addition to her menopausal concerns, Ziggy raised issues regarding her vitamin B12 management. She is currently taking vitamin B12 pills but feels they may not be effective and is contemplating areturn to vitamin B12 injections. She expressed anxiety about the recommendation to stop her vitamin B12 pills 14 days prior to her upcoming right shoulder surgery, scheduled for the , as advised by Doctor Brian. Ziggy is hesitant to discontinue the pills, fearing negative consequences, and isactively seeking alternatives to maintain her vitamin B12 levels during the perioperative period. Ziggy also mentioned her upcoming right shoulder surgery, providing context for her current healthpriorities and the interplay between her medication management and surgical planning. Examination CategorySub-CategoryDetailNotesCategory NotesGeneral ExaminationNECK/THYROID: trachea is midline, no adenopathy, normal thyroid without masses or nodules CARDIOVASCULAR:Regular rate and rhythm, S1/S2 are normal, no murmurs, rubs, or gallopsRESPIRATORY:clear to auscultation bilaterally, good breath sounds bilaterally, no wheezes, rhonchi, ralesGASTROINTESTINAL:Abdomen Soft, not tender, positive bowel sounds in all 4 quadrants, no guarding.EXTREMITIES: bilaterally no clubbing, cyanosis, or edemaGENERAL APPEARANCE:Alert and oriented, in no acute distress, pleasantSKIN:moist, warm, unremarkable, no rash NEUROLOGIC EXAM:CN's II-XII grossly intact , alert and oriented x 3 , normal gaitPERIPHERAL PULSES:radial pulses +2/4 bilaterally, posterior tibial pulses +2/4 bilaterallyMUSCULOSKELETAL:Normal ROM and strength is 5/5 throughout, normal inspection, no effusions, no swelling or deformityEYES:extra ocular muscles intact (EOMI) bilaterally, no discharge, pupils, equal, round, reactive to light and accomodation (PERRLA), sclera clear Progress Notes * TOBY JOYB: 8 (49 yo F)Acc No.[id number]:05/03/2025 Progress Notes Patient: ZIGGY ELI :?INÉS MorganOB:1975???Age:49 Y???Sex: FemaleDate:05/03/2025Phone:[phone]:[id number] [facility] [address], [address], [place], [id number] Subjective: * Chief Complaints: * 1 . 4wk- HRT. * HPI: ???Depression Screening:?PHQ-2 (2015 Edition)?Little interest or pleasure in doing things? Not at all ?Feeling down, depressed, or hopeless??Not at all ?Total Score?0 ???Constitutional:?Ziggy Joy, a 49-year-old female, presented for a chronic condition follow-up focused on her menopausal symptoms and vitamin B12 management. She described a challenging experience with her estrogen patch, noting that while it provided significant relief from hot flashes and night sweats-especially about a week after starting-it also led to troublesome side effects. She reported headaches thatwould begin with visual changes, describing her vision as looking at a telescope, followed by sweating and nausea. These symptoms prompted her to discontinue the patch this past Wednesday, despite having recently refilled her prescription. Ziggy discussed these issues with her mother and expressed a desire to find a more tolerable solution, considering options such as cutting the patch in half orusing it intermittently. In addition to her menopausal concerns, Ziggy raised issues regarding her vitamin B12 management. She is currently taking vitamin B12 pills but feels they may not be effective and is contemplating areturn to vitamin B12 injections. She expressed anxiety about the recommendation to stop her vitamin B12 pills 14 days prior to her upcoming right shoulder surgery, scheduled for the , as advised by Doctor Torres. Ziggy is hesitant to discontinue the pills, fearing negative consequences, and isactively seeking alternatives to maintain her vitamin B12 levels during the perioperative period. Ziggy also mentioned her upcoming right shoulder surgery, providing context for her current healthpriorities and the interplay between her medication management and surgical planning. * ROS: ???10 point ROS completed otherwise negative except as per HPI. * Medical History: * Surgical History: * Hospitalization/Major Diagno stic Procedure: * Family History: D aughter(s): alive. S on(s): alive. M other: alive, Hepatitis, Cervical Ca, Endometriosis. 1 brother(s) , 2 sister(s) . 2 son(s) , 1 daughter(s) . . F amily History Verified..? broter with Asthma, alcoholism, HTN Both sisters had cervical cancer, one sister had thyroidectomy Both sons have asthma. * Social History: ???Drug/Alcohol:?AUDIT-C (Standard)?Did you have a drink containing alcohol in the past year??No ?Points?0 ?Interpretation?Negative ???General:?Transition of Care?ER/UC/hospital since last office visit??No ?Specialist seen since last office visit??No ?Behaviors affecting health?Poor/Risky Behaviors:?Denies- ?Substance abuse/mental health issues of patient/family?Patient -?Denies ?Social/Support Concerns?Patient:?No ?Ability to understand healthcare/treatment?Patient:?Fair ?Communication Barrier?Language Barrier?:?No ?Sexual Hx?Had sex in the last 12 months (vaginal, oral,or anal)??Yes ?with?Men only ?Have you ever had an STD??Yes ?Herpes??Yes ???Food Insecurity Screening:?Food Insecurity Screening?Within the last 12 months, have you been worried about your food running out before you received money to buy more??No ?Within the last 12 months, did the food you buy not last, and you didn't have money to buy more??No ?Within the last 12 months, have you had any difficulty affording to eat balanced meals including all food groups (fruits, vegetables, protein, and whole grains)??No ???Tobacco Use:?Tobacco Control (Standard)?Tobacco use:?Current smoker ?How often do you smoke cigarettes??Every day ?How many cigarettes a day do you smoke??11-20 ???Social History Verified. * Medications: T adrianag Vitamin B12 1000 MCG Tablet 1 tablet Orally Once a day , stop date 05/28/2025, Taking rOPINIRole HCl 1 MG Tablet TAKE [...] daily Orally Once a day , Taking Symbicort 160-4.5 MCG/ACT Aerosol 2 puffs Inhalation Twice per day , stop date 07/03/2025, Not-Taking/PRN Estradiol 0.025 MG/24HR Patch Twice Weekly 1 patch to skin changing every 72 hours Transdermal every 3 days , Medication List reviewed and reconciled with the patient * Allergies: A naprox: rash, ASA: rash, Flagyl: rash, Haldol: anaphylaxis - Allergy, Magnesium Sulfate: vomiting - Allergy, Sulfacetamide: rash - Allergy, Reglan: rash - Allergy, Vistaril: vomiting - Allergy, NSAIDs: rash - Allergy, Ketorolac: hives. Allergies Verified. Objective: * Vitals: H t: 62 in, Wt: 129.4 lbs, BMI:23.66Index, BP: 134/75 mm Hg, SaO2:99%, HR: 72 /min, RR: 20 /min. * Examination: ???General Examination: ?GENERAL APPEARANCE:?Alert and oriented, in no acute distress, pleasant.?EYES:?extra ocular muscles intact (EOMI) bilaterally, no discharge, pupils, equal, round, reactive to light and accomodation (PERRLA), sclera clear.?NECK/THYROID:?trachea is midline, no adenopathy, normal thyroid without masses or nodules.?CARDIOVASCULAR:?Regular rate and rhythm, S1/S2 are normal,no murmurs, rubs, or gallops.?PERIPHERAL PULSES:?radial pulses +2/4 bilaterally, posterior tibial pulses +2/4 bilaterally.?RESPIRATORY:?clear to auscultation bilaterally, good breath sounds bilaterally, no wheezes, rhonchi, rales.?GASTROINTESTINAL:?Abdomen Soft, not tender, positive bowelsounds in all 4 quadrants, no guarding..?NEUROLOGIC EXAM:?CN's II-XII grossly intact , alert and oriented x 3 , normal gait.?SKIN:?moist, warm, unremarkable, no rash.?EXTREMITIES:?bilaterally no clubbing, cyanosis, or edema. ?MUSCULOSKELETAL:?Normal ROM and strength is 5/5 throughout, normal inspection, no effusions, no swelling or deformity.? Assessment: * Assessment: 1.?Menopausal and female climacteric states - N95.1 (Primary)???2.?VitaminB 12 deficiency - E53.8??? Plan: * Treatment: Notes: Menopausal symptoms including hot flashes and night sweats improved with estrogen patch. Patient experienced headaches, visual changes, and nausea attributed to the patch. Symptoms returned after discontinuing the patch. Patient is seeking alternative estrogen preparations or dosing strategies. - Discussed options for alternative estrogen preparations, including vaginal ring and topical gels. - Suggested trial of cutting estrogen patch in half or intermittent use to reduce side effects. - Plan for virtual follow-up in two weeks to assess response to dosing changes.??2.?Vitamin B 12 deficiency? Notes: Patient is currently taking vitamin B12 pills but feels they may not be effective. Patient is hesitant to stop vitamin B12 pills prior to upcoming surgery. Considering switching back to vitamin B12 injections. - Plan to administer vitamin B12 injection before surgery.?? * Therapeutic Injections: B-12 injection : 1 mL (Route: Intramuscular) given by Katarzyna Ponce on right deltoid (Vitamin B 12 deficiency) * Procedure Codes: 3 078F DIAST BP < 80 MM HG, 3075F SYST BP GE 130 - 139MM HG, 1160F RVW MEDS BY RX/DR IN [facility], J3420 VITAMIN B12, [address] THER/PROPH/DIAG INJ, SC/IM * Follow Up: 2 Weeks Billing Information: * Procedure Codes: 3078F DIAST BP < 80 MM HG. 3075F SYST BP GE 130 - 139MM HG. 1160F RVW MEDS BY RX/DR IN [facility]. J3420 VITAMIN B12. [address]121 THER/PROPH/DIAG INJ, SC/IM. * ign off status: Completed true * Provider: Alistair Guerra DO Date: Generated for Printing/Faxing/eTransmitting on:?05/03/2025 07:12 PM EDT
[2025-05-03 19:08] VITALS: BP 154/78; PULSE 83; TEMP 36.8; O2SAT 98; BMI 22.7
--- OUTSIDE RECORDS SUMMARY | 2025-05-03 19:12 | XMS_ITS | CCD ---
Author Organization [facility] Care Team Providers Care Food Supervisor Name Role Phone LizetCande youngblood Selvin Primary Care Physician [phone] Bree Jimenes Unavailable Unavailable [facility] Primary Care Provider ZANE Rubio Attending Pr ovider [facility] Primary Care Provider ZANE Rubio Attending Pr ovider ZANE Rubio Attending Pr ovider [facility] Primary Care Provider MD Salvador Maier Jr Emergency Provider ZANE Rubio Attending Pr ovider NON STAFF Primary Care Provider Unavailabl e [facility] Primary Care Provider MD Salvador Maier Jr Emergency Provider [facility] Primary Care Unavaila sindhu ROSE ., DR RICH Admitting Unavailable ROSE ., DR RICH Attending Unavailable ROSE ., DR RICH Consulting Unavailable [facility] Primary Care Unavaila sindhu ANGELA, DR ADDY Arrington Admitting Unavailable COREEN, DR ADDY Arrington Attending Unavailable ROSALIA ARROYO Consulting Unavailable [facility] Primary Care Unavaila MU Bose Admitting Unavailable [facility] SHERWOOD Attending Dom BENITEZ, DR MILE Pedersen Consulting Unavailable PAY ., DR ARGUETA Consulting Unavailable [facility] SHERWOOD Consulting Unavailable LUDIN ANGELES Consulting Unavailable [facility] Primary Care Unavaila sindhu ANGELA, DR ADDY Arrington Admitting Unavailable COREEN, DR ADDY Arrington Attending Unavailable COREEN, DR ADDY Arrington Consulting Unavailable IRENE VENTURA Consulting Unavailable [facility] Primary Care Unavaila ble MARKER ., DR GARCIA Admitting Unavailable MARKER ., DR GARCIA Attending Unavailable MARKER ., DR GARCIA Consulting Unavailable [facility] Primary Care Unavaila ble SHAWNA ., TREVOR Admitting Unavailable SHAWNA ., TREVOR Attending Unavailable SHAWNA ., TREVOR Consulting Unavailable [facility] Primary Care Unavaila ble SHAWNA ., TREVOR Admitting Unavailable SHAWNA ., TREVOR Attending Unavailable GRECHAZNY ., PA ZOË Consulting Unavailabl e KWASI, KAE Consulting Unavailable ZANE Rubio Attending Pr ovider ZANE Rubio Attending Pr ovider ZANE Rubio Attending Pr ovider MORGAN Galeana Attending Provider DO Brian Wood Attending Provider Unallocated, Noms Provider Primary Care Provider [facility] Primary Care Provider ZANE Rubio Attending Pr ovider ZANE Rubio Attending Pr ovider DO Michael Henderson Referring Unavailable DO Michael Henderson Attending Unavailable DO Michael Henderson Admitting Unavailable Unallocated MD, Noms Provider Primary Care Provi nitesh Rufina Rubio MD Unavailable Unallocated MD, Noms Provider Primary Care Provi nitesh Rufina Rubio NP Unavailable [phone] Rufina Crowell Attending Pr ovider Rufina Crowell Primary Care Provider Michael Henderson Admitting Unavailable Michael Henderson Attending Unavailable Michael Henderson Referring Unavailable Akbar Philippe Admitting Unavailable Akbar Philippe Attending Unavailable Michael Henderson Referring Unavailable Michael Henderson Admitting Unavailable Michael Henderson Attending Unavailable [facility] Primary Care Prov ider Pepe Guerra DO Attending Provider [phone] Pepe Guerra DO Attending Provider [facility] Primary Care Provider Pepe Guerra Admitting Unavailable Pepe Guerra Attending Unavailable [facility] Primary Care Unavaila ble Pepe Guerra Admitting Unavailable Pepe Guerra Attending Unavailable Ramiro, Rufina Lerma Attending U navailable Rubio, Rufina Lerma Admitting U navailable Rubio, Rufina Lerma Attending U navailable Rubio, Rufina Lerma Admitting U navailable Rubio, Rufina Lerma Primary Care U navailable Rubio, Rufina Villatoroine Admitting U navailable Rubio, Rufina Lerma Primary Care U navailable Rubio, Rufina Lerma Attending U navailable Rubio, Rufina Lerma Admitting U navailable Rubio, Rufina Lerma Primary Care U navailable Rubio, Ruifna Lerma Attending U [facility] Primary [facility] U estherailPepe Chandler Admitting Unavailable Pepe Guerra Attending Unavailable JADIEL SAMUEL Attending Unavailable BROWN, MICHAEL [...] Referring Unavailable BROWN, MICHAEL A Attending Unavailable Brown, DO Michael A Admitting Unavailable Brown, DO Michael A Attending Unavailable Brown, DO Michael A Referring Unavailable Allergies Allergy ClassificationReported Allergen(s)Allergy TypeDate of OnsetReaction(s) Facility (20 sources)Aspirin; Translations: [aspirin]Drug Jflglae05-65-3651wmuyoybvK[facility] (20 sources)Haloperidol; Translations: [haloperidol]Drug Jerqpbi04-97-0830mws locked sideways, [facility] (20 sources)hydrOXYzine; Translations: [hydroxyzine]Drug Xtwakre69-30-9171wipx, [facility] (8 sources)Ketorolac; Translations: [ketorolac]Drug [facility]ergyHenry [facility] (20 sources)Magnesium Sulfate; Translations: [magnesium sulfate]Drug Allergy 77-37-2266icbjeuugFglcmxLutheran Hospital (20 sources)metroNIDAZOLE; Translations: [metronidazole]Drug Grpfnzf38-36-8852 [facility] (20 sources)Naproxen; Translations: [naproxen]Drug Dcfjokk65-06-4919XjdpqAzdllfMiddletown Hospital (20 sources)NSAIDs; Translations: [NSAIDs]Drug ogodazn13-84-1898QkahrKgpwtkMiddletown Hospital (20 sources)Sulfamethoxazole / Trimethoprim; Translations: [sulfamethoxazole-trimethoprim]Drug Xvkvfht93-29-3537ovnglwrrWwgkckCleveland Clinic [facility] (17 sources)Sulfamethoxazole; Translations: [sulfamethoxazole]Drug Allergy 64-91-1724AvsiaJjgdcmfyqOhio [facility] (20 sources)Trimethoprim; Translations: [trimethoprim]Drug Fdyszbh06-15-6778 [facility] (17 sources)NSAIDS (Non-Steroidal Anti-Inflamma; Translations: [NSAIDS (Non- Steroidal Anti-Inflamma]Allergy to rpytvwkzd99-63-2307HvdrwXqqsjgeksOhio Valley Hospital (1 source)AspirinDrug Aaysfxe24-87-5925HvhT[facility] (1 source)HaloperidolDrug Sbzjkto94-30-0483QxkTogus Va [facility] Center [facility] (1 source)hydrOXYzineDrug Nxuwtcm67-90-3689GmbTogus Va Medical Center [facility] (1 source)IothalamateDrug Qoydotq05-56-3747EakTogus Va Medical Center [facility] (1 source)KetorolacDrug Alzghzt59-98-9192TycTogus Va Medical Center [facility] (1 source)Magnesium SulfateDrug Axxclzt35-27-3182RjvTogus Va Medical Center [facility] (1 source)metroNIDAZOLEDrug Hfjncoq73-50-5604Cbg [facility] (1 source)NaproxenDrug Koirzpy12-12-7376Tam [facility] (1 source)NSAIDsDrug allergy (disorder)96-09-4479Rxj [facility] (1 source)Sulfonamides (Antibiotic)Drug allergy (disorder)22-93-5210Zyc [facility] (20 sources)Aluminum aspirinDrug Iixfsay26-94-9550FJHK [facility] (20 sources)KetorolacAllergy to gdrykhblm37-56-0737CS[facility] (20 sources)Ketorolac trometamolPropensity to adverse srqmhmope26-37-0014UWHT [facility] (20 sources)Magnesium SalicylateDrug Fpkozyv53-31-6722LoiitOUEP Healthcare (20 sources)Magnesium sulfatePropensity to adverse asymljzkk66-61-4869ARYQ [facility] (20 sources)MetoclopramideDrug Adibpmw10-51-9520TTQI [facility] (20 sources)PenicillinsDrug Tguoiki98-69-0512HUSP [facility] (20 sources)Sulfonamides (Antibiotic)Drug Yopwmma78-05-9645ANMW [facility] (8 sources)Sulfacetamide; Translations: [sulfacetamide]Drug Cyovovn19-62-3618 [facility] (20 sources)Sulfur; Translations: [sulfur]Drug Twpmsng84-38-9682UwbqaaspnOhiohealth Doctors Hospital (1 source)AspirinDrug Wbcsgwo05-45-9098RkhwlpkkaOhiohealth [facility] (1 source)HaloperidolDrug Ufhqyhk53-48-1326LlrcvuveyOhiohealth [facility] (1 source)hydrOXYzineDrug Ehqlgdf57-38-8096UaamgqcnvOhiohealth [facility] (1 source)Magnesium SulfateDrug Qecbeax00-80-9771DkgadufpzOhiohealth Doctors [facility] (1 source)metroNIDAZOLEDrug Dixruww42-17-9268AljstfcfqOhiohealth [facility] (1 source)NaproxenDrug Mprclgz45-09-9225WgeypsxxeOhiohealth Doctors Hospital Repository Medications Current Medications MedicationDrug Class(es)DatesSig (Normalized)Sig (Original)acetaminophen 325 mg / oxyCODONE hydrochloride 5 mg oral tablet (18 sources)Opioid AgonistStart: 02-71-0534Hurfvrti 5 mg-325 mg oral tablet See Instructions, 40 tab(s), Refill(s) 0, 1-2 tab(s) Oral q4hr, [facility] [id number], 159, cm, 05/05/24 7:05:00 EDT, Height/Length Dosing, 54.6, kg, 05/05/24 7:05:00 EDT, Weight Dosing Start Date: 05/19/24 Status: Ordered Quantity: 40.0 Unit: tab(s) Repeat number: 1Start: 07-22-2022 End: 02-23-9886etqd 1 tablet by mouth every six hours as needed for painStart: 36-24-3701Qrsdhyrt 325 mg-5 mg Tab See Instructions, as needed for pain, 50 tab(s), Refill(s) 0, 1-2 tab(s) Oral q4hr, [facility], 156, cm, 05/21/21 5:13:00 EST, Height/Length Dosing, 57.1, kg, 05/21/21 5:13:00 EST, Weight Dosing Start Date: 05/30/21 Status: Sdlvldtedk040009 200 actuat albuterol 0.09 mg/actuat metered dose inhaler (20 sources)beta2-Adrenergic AgonistStart: 79-07-5990ddxykekqe HFA 90 mcg/act inhaler 01/22/2024 ActiveStart: 58-08-8778kykhnoscc (2.5 MG/3ML) 0.083% nebulizer solution 04/23/2023 ActiveStart: 58-32-7217cdii 2.5 mg by inhalation twice dailyalbuterol 0.083% Inh Ana Lilia 3 mL 2.5 mg, 3 mL, NEB, BID, Refill(s) 0, Other (see comment) Start Date: 05/20/21 Status: Ordered Repeat number: 1Start: 64-37-2587kcwv 2.5 mg by inhalation twice dailyalbuterol 0.083% Inh Ana Lilia 3 mL 2.5 mg, 3 mL, NEB, BID, Refill(s) 0, Other (see comment) Start Date: 05/20/21 Status: Orderedalbuterol CFC free 90 mcg/inh inhalation aerosol (1 source)Start: 99-62-8222gqot 2 puff(s) by inhalation every four hours albuterol CFC free 90 mcg/inh inhalation aerosol = 2 puff(s), Inhalation, q4hr, Refills(s) 0, COPD Start Date: 05/20/21 Status: Orderedcephalexin 500 mg oral capsule (3 sources)Cephalosporin AntibacterialStart: 04-79-2325neej 1 capsule by mouth every twelve hourscephalexin 500 mg Cap 500 mg = 1 cap(s), Oral, q12hr, Refills(s) 0, Infection or prophylaxis for antibiotics Start Date: 05/19/24 Status: Ordered Repeat number: 1Start: 82-91-3697trmnflpcte (Keflex) 500 MG capsuleciclopirox 80 mg/ml topical solution (20 sources)Start: 85-34-3001dnchbevpaw (Penlac) 8 % solution 03/16/2023 Active diazePAM 5 mg oral tablet (20 sources)BenzodiazepineStart: 06-22-2024 End: 38-07-7482oommoUUO (Valium) 5 MG tablet Indications: Muscle Spasm Take 1 tablet (5 mg) by mouth as needed at bedtime for muscle spasms for up to 20 days 20 tablet 06/22/2024 Activedocusate sodium 100 mg oral capsule (8 sources)Start: 05-19-2024 End: 17-34-0626ikkt 1 capsule by mouth twice daily as needed for constipation Colace 100 mg Cap 100 mg = 1 cap(s), Oral, BID, PRN for constipation, # 20 cap(s), Refills(s) 0, Pharmacy: [facility] [id number], 159, cm, 05/05/24 7:05:00 EDT, Height/Length Dosing, 54.6, kg, 05/05/24 7:05:00 EDT, Weight Dosing Start Date: 05/19/24 Status: Ordered Quantity: 20.0 Unit: cap(s) Repeat number: 1Start: 28-70-7004mywc 1 capsule by mouth twice daily as needed for constipation Colace 100 mg Cap 100 mg = 1 cap(s), Oral, BID, PRN for constipation, # 20 cap(s), Refills(s) 0, Pharmacy: [facility] 858, 156, cm, 05/21/21 5:13:00 EST, Height/Length Dosing, 57.1, kg, :13:00 EST, Weight Dosing Start Date: 05/30/21 Status: Pmxfdww34 hr estradiol 0.46498 mg/hr transdermal system (5 sources)EstrogenStart: 63-74-9108lzwozhmpl (Vivelle-DOT) 0.025 MG/24HR Place 1 patch on the skin 2 (two) times a week 03/28/2025 Activefamotidine 20 mg oral tablet (20 sources)Histamine-2 Receptor AntagonistStart: 21-88-8969pxzz 1 tablet by mouth once dailyfamotidine (Pepcid) 20 MG tablet Take 20 mg by mouth Daily 10/04/2022 ActiveFLUoxetine 40 mg oral capsule (20 sources)Serotonin Reuptake InhibitorStart: 38-71-5366QWEjwbzion (PROzac) 40 MG capsule 05/18/2023 Activefluticasone propionate 0.05 mg/actuat metered dose nasal spray (8 sources)CorticosteroidStart: 01-48-2116tqpsesmuvni (Flonase) 50 MCG/ACT nasal spray 1 (one) time each day at the same time 08/04/2024 Powyzl913 actuat fluticasone propionate 0.045 mg/actuat / salmeterol 0.021 mg/actuat metered dose inhaler (20 sources)Corticosteroid, beta2-Adrenergic Agonistfluticasone-salmeterol (Advair HFA) 45-21 MCG/ACT inhaler Activefluticasone-salmeterol 250 mcg-50 mcg Inh Pwdr (1 source)Start: 52-09-6854xdeh 1 dose by inhalation every twelve hours fluticasone-salmeterol 250 mcg-50 mcg Inh Pwdr 1 vial, Inhalation, q12hr, Refill(s) 0, COPD Start Date: 05/20/21 Status: Orderedfolic acid 1 mg oral tablet (20 sources)Start: 10-77-1828fjohm acid (Folvite) 1 MG tablet 04/12/2023 Active LORazepam 0.5 mg oral tablet (20 sources)BenzodiazepineStart: 80-38-0883YUMdlscme (Ativan) 0.5 MG tablet 1 (one) time each day at the same time 03/28/2025 ActiveStart: 01-04-2024 End: 85-34-4404KSHuvnofr (Ativan) 0.5 MG tablet 1 (one) time each day at the same time 01/04/2024 08/14/2024 Discontinued (Therapy completed)metroNIDAZOLE 0.0075 mg/mg vaginal gel (3 sources)Nitroimidazole AntimicrobialStart: 06-22-2024 End: 78-23-1199iybhxWCKYMTAP (Metrogel) 0.75 % vaginal gel 1 Application 06/22/2024 12/19/2024 Activemontelukast 10 mg oral tablet (20 sources)Leukotriene Receptor AntagonistStart: 55-64-6669bhihyhdfooc (Singulair) 10 MG tablet 1 (one) time each day at the same time 09/28/2023 ActiveOLANZapine 15 mg oral tablet (20 sources)Atypical AntipsychoticStart: 59-70-7392GTHMNajxtu (ZyPREXA) 15 MG tablet 01/22/2024 ActiveStart: 05-20-2021 End: 81-49-7102acek 1 tablet by mouth once dailyomeprazole 20 mg delayed release oral capsule (20 sources)Proton Pump InhibitorStart: 05-49-8384npns 1 capsule by mouth once dailyomeprazole (PriLOSEC) [address] capsule 1 (one) time each day at the same time Activeondansetron 4 mg disintegrating oral tablet (13 sources)Serotonin-3 Receptor AntagonistStart: 18-96-3397eyct 1 tablet by mouth every eight hours as needed for nausea and vomitingoxyCODONE hydrochloride 5 mg oral capsule (1 source)Opioid AgonistStart: 27-84-2820rquARKKIP 5 mg Cap 5 mg = 1 cap(s), Oral, q6hr, PRN Pain 8-10, # 4 cap(s), Refills(s) 0, [facility]acy: [facility], 155, cm, 06/08/21 8:15:00 EST, Height/Length Dosing, 60, kg, 06/08/21 8:15:00 EST, Weight Dosing Start Date: 06/08/21 Status: Orderedpotassium chloride 10 meq extended release oral capsule (20 sources)Start: 60-51-7437wembmqfoo chloride ER (Micro-K) 10 MEQ ER capsule 10/21/2023 ActiverOPINIRole 1 mg oral tablet (20 sources)Nonergot Dopamine AgonistStart: 24-78-9110hKQSLRIknz (Requip) 1 MG tablet 01/21/2024 ActiveStart: 07-22-2022 End: 75-07-9536dxxm 1 tablet by mouth once dailyStart: 33-94-4588krwb 1 tablet by mouth once dailyropinirole 0.25 mg Tab 0.25 mg = 1 tab(s), Oral, Daily, Refills(s) 0, Other (see comment) Start Date: 05/20/21 Status: OrderedSuzetrigine (Journavx) 50 MG tablet (5 sources)Start: 04-02-2025 End: 54-76-5701txyk 1 tablet by mouth every twelve hoursSuzetrigine (Journavx) 50 MG tablet Indications: Left shoulder pain, unspecified chronicity Take 50mg by mouth every 12 (twelve) hours for 14 days For the first dose, take 2 tablets (100 mg) on an empty stomach at least 1 hour before or 2 hours after food. Starting 12 hours after the initial dose,take 1 tablet (50 mg) every 12 hours with or without food. 30 tablet 04/02/2025 04/16/2025 ActivetiZANidine 2 mg oral capsule (20 sources)Central alpha-2 Adrenergic AgonistStart: 28-32-5215kvcn 1 capsule by mouth twice dailytizanidine 2 mg oral capsule 2 mg = 1 cap(s), Oral, BID, # 180 cap(s), Refills(s) 0, Pain Start Date: 05/04/24 Status: Ordered Quantity: 180.0 Unit: cap(s) Repeat number: 1Start: 53-16-1893qjNGFrvjyh (Zanaflex) 2 MG tablet 2022 ActiveVitamin B-12 1000 mcg oral tablet (1 source)Start: 35-83-1691Hnsqmub B-12 1000 mcg oral tablet Refills(s) 0 Start Date: 10/27/22 Status: Orderedvitamin b12 1 mg oral tablet (20 sources)Vitamin T12Kylqq: 44-14-1722gpxltotsccqiac (Vitamin B-12) 1000 MCG tablet 02/03/2023 Active Completed/Discontinued Medications MedicationDrug Class(es)DatesSig (Normalized)Sig (Original)acetaminophen 300 mg / codeine phosphate 30 mg oral tablet (4 sources)Opioid AgonistStart: 05-24-2023 End: 59-91-2056uparbtyvzadks-codeine (Tylenol w/ Codeine #3) 300-30 MG tablet 05/24/2023 03/07/2024 Discontinuedciprofloxacin 500 mg oral tablet (15 sources)Quinolone AntimicrobialStart: 19-93-8735wfsv 1 tablet by mouth once dailyCipro 500 mg Tab 500 mg = 1 tab(s), Oral, Daily, Take 1 tablet the day before the procedure and 1 tablet after the procedure, # 2 tab(s), Refills(s) 0, Pharmacy: [facility] [id number], 156, cm, 10/27/22 14:36:00 EDT, Height/Length Dosing, 62, kg, 10/27/22 14:36:00... Start Date: 11/27/22 Status: O rderedStart: 74-03-1059ymko 1 tablet by mouth once dailygabapentin 300 mg oral capsule (20 sources)Anti-epileptic AgentStart: 05-19-2024 End: 79-63-3723hupjvsdgzs (Neurontin) 300 MG capsule Take 300 mg by mouth 05/19/2024 08/14/2024 Discontinued (Therapy completed)predniSONE 10 mg oral tablet (3 sources)Start: 01-25-2024 End: 20-00-9534zizwojDRRM (Deltasone) 10 MG tablet Indications: Right shoulder pain, unspecified chronicity 6 pills day 1 & 2, 5 pills day 3 & 4, 4 pills day 5 & 6, 3 pills day 7 & 8, 2 pills day 9 & 10, 1 pill day 11 & 12 42 tablet 01/25/2024 03/07/2024 DiscontinuedtraMADol hydrochloride 50 mg oral tablet (13 sources)Opioid AgonistStart: 03-23-2024 End: 30-63-3302kxcYUHgk (Ultram) 50 MG tablet 03/23/2024 06/27/2024 Discontinued (Therapy completed)Start: 04-23-2023 End: 21-59-2992wimCXDdc (Ultram) 50 MG tablet 04/23/2023 03/07/2024 Discontinued Problems Active Problems Problem ClassificationProblemDateDocumented DateEpisodic/ChronicAllergic reactions (4 sources)Allergy, unspecified, initial encounter; Translations: [ALLERGY UNSPECIFIED INITIAL ENCNTR]Onset: 32-06-5426ThyzevypEecnqez disorders (20 sources)Anxiety; Translations: [Anxiety disorder, unspecified]Onset: 573412-57-8906RxjxpddRjrdys (1 source)Unspecified asthma, uncomplicated; Translations: [UNSPECIFIED ASTHMA UNCOMPLICATED]Onset: 27-22-2409LcotglaAjqyxuiq of urinary tract (4 sources)History of calculus of ddluio06-67-0412WroevnrtRpknaol obstructive pulmonary disease and bronchiectasis (4 sources)Chronic obstructive lung gfwoogh18-08-4472BalylfoVsgfouiqc and duodenitis (1 source)Gastritis, unspecified, without bleeding; Translations: [GASTRITIS UNS WITHOUT BLEEDING]Onset: 56-11-6934LryzjvagJlppeidu; including migraine (9 sources)Migraine without aura, not refractory ; Translations: [Migraine, unspecified, not intractable, without status migrainosus]Onset: 11-06-2021 33-30-5585CdmobtrDftuhavb; including migraine (5 sources)Nlpiaydh40-00-5703SipdrcpkWkfc disorders (10 sources)Depression; Translations: [Bipolar disorder, unspecified]Onset: 249509-43-4417JhtzcdnBkyrxf and vomiting (5 sources)Nausea; Translations: [Nausea with vomiting, unspecified]Onset: 07-47-0883IkauxbasBlufxpvixvj chest pain (16 sources)Atypical chest pain; Translations: [Other chest pain]05-29-2019 EpisodicNutritional deficiencies (1 source)Deficiency of other specified B group vitamins; Translations: [Deficiency of other specified B group vitamins]Onset: 02-63-7858GvmgrpzjRuzql aftercare (1 source)Other alf (current) drug therapy; Translations: [OTH GROUP HOME CURRENT DRUG THERAPY]Onset: 02-71-8823IzdysupgVracr connective tissue disease (5 sources)Impingement syndrome of shoulder obryba16-44-0839BnpknpsvXxaec non- traumatic joint disorders (1 source)Pain of right shoulder joint; Translations: [Pain in right shoulder] Onset: 22-24-1330XkzqtlugSvuri non-traumatic joint disorders (16 sources)Chronic pain of right upper limb; Translations: [Pain in right shoulder]22-13-4127LcfdgxvzWtppx non-traumatic joint disorders (12 sources)Pain in right shoulder; Translations: [Pain in joint, shoulder region]Onset: 46-85-3301QeyznmocBpmrr non-traumatic joint disorders (5 sources)Pain in left shoulder; Translations: [Pain in joint, shoulder region] Onset: 198750-19-2114CltvdjlwDuzcmsfq codes; unclassified (1 source)Acquired absence of both cervix and uterus; Translations: [ACQUIRED ABSENCE BOTH CERVIX AND UTERUS]Onset: 90-00-0878MdouwoomHcxhqxwc codes; unclassified (13 sources)History of arthroscopic procedure on shoulder; Translations: [Other specified postprocedural states]74-26-4321CkwvnadfAcacpce and strains (4 sources)Strain of muscle(s) and tendon(s) of the rotator cuff of right shoulder, subsequent encounter; Translations: [Other specified aftercare] 34-06-5754AorssrcoXvseiowyg-related disorders (6 sources)Smoker; Translations: [Nicotine dependence, cigarettes, uncomplicated]Onset: 564997-83-3539ProralgLockflf on above:Added secondary to documentation in Social History.Unclassified (1 source)CONTACT W/AND (SUSP) EXPOS COVID-19; Translations: [CONTACT W/AND (SUSP) EXPOS COVID-19]Onset: 52-83-0606Twbzhpgjltdl (2 sources)Left shoulder pain, unspecified chibdmytnh02-54-6748 Past or Other Problems Problem ClassificationProblemDateDocumented DateEpisodic/ChronicAbdominal pain (19 sources)Epigastric pain; Translations: [Epigastric pain]Onset: 11-26-2021 79-26-6333ChaixlvrUkzyuzj tract disease (1 source)Calculus of bile duct without cholangitis or cholecystitis without obstruction; Translations: [CALCBD NO CHOLANG/CHOLCYST NO OBST]Onset: 11-26-2021 EpisodicE Codes: Natural/environment (1 source)Overexertion from prolonged static or awkward postures, initial encounter; Translations: [OVEREXERTPROLNG STAT/AWK PST INIT]Onset: 11-24-2021 EpisodicGenitourinary symptoms and ill-defined conditions (1 source)Frequency of micturition; Translations: [Frequency of micturition] Onset: 32-64-7384ZnpkiqyiAybwe disorders and dislocations; trauma-related (1 source)Unspecified dislocation of right acromioclavicular joint, initial encounter; Translations: [UNS DISLOCATION RT AC JNT INITIAL]Onset: 11-24-2021 EpisodicNonmalignant breast conditions (5 sources)Breast lump; Translations: [Unspecified lump in the right breast, unspecified quadrant]Onset: 425319-60-2059YkjuohndEadbj diseases of kidney and ureters (1 source)Cyst of kidney, acquired; Translations: [CYST OF KIDNEY ACQUIRED] Onset: 44-30-2307BzxlsaazKgmae screening for suspected conditions (not mental disorders or infectious disease) (1 source)Encounter for screening mammogram for malignant neoplasm of breast; Translations: [Encounter for screening mammogram for malignant neoplasm of breast]Onset: 09-12-3656EnlkwtfoZliyrtmg codes; unclassified (1 source)Other specified postprocedural states; Translations: [OTH SPECIFIED POSTPROCEDURAL STATES]Onset: 35-59-4597AigoqrymMpvnkkxr codes; unclassified (1 source)Flushing; Translations: [Flushing]Onset: 00-89-3987EgwbjflaDtko and subcutaneous tissue infections (4 sources)Cutaneous abscess of right lower limb; Translations: [CUTANEOUS ABSCESS RIGHT LOWER LIMB]Onset: 58-39-4271CgyaxmrkYsfvcvl tract infections (9 sources)Acute cystitis; Translations: [Recurrent urinary tract infection] Onset: 527243-19-8102MdilbozaGgmxc infection (1 source)Viral infection, unspecified; Translations: [VIRAL INFECTION UNSPECIFIED]Onset: 81-45-8057Jeaokjis Results Test NameValueInterpretationReference RangeFacilityMR SHOULDER LEFT WO IV CONTRASTon 40-80-8280TL SHOULDER LEFT WO IV CONTRASTEXAM: MR SHOULDER LEFT WO IV CONTRAST HISTORY: Shoulder pain and limited range of motion. Left frozen shoulder. TECHNIQUE: Multiplanar multisequence MRI of the shoulder was performed Without contrast. COMPARISON: Shoulder radiograph April 02, 2025 FINDINGS: Mild degenerative changes of the acromioclavicular joint with tiny undersurface ossified formation.The acromion is curved. Coracoclavicular ligament intact. No subacromial/subdeltoid bursal fluid. Mild supraspinatus tendinosis. Infraspinatus, subscapularis, and teres minor tendons are intact. Noatrophy or fatty infiltration of the rotator cuff musculature. The intra-articular and extra-articular long head biceps tendon is intact. The biceps tendon resides within the bicipital groove. No labral tear identified. No well-defined or measurable cartilage defect. No glenohumeral joint effusion . IMPRESSION: Mild supraspinatus tendinosis. ELECTRONICALLY SIGNED BY: Pennie PengmalNot AvailableComment on above:Order Comment: Possible Transdermal medication patch Right shoulder metalXR Shoulder - left 2 Viewson 31-56-9238Qroxinn Result: - X-ray of the left shoulder (Grashey, Zanca, and axillary views): 04/02/2025, saved to permanent medical record. X-ray of the left shoulder (AP, internal and external rotation views): 03/05/2025, Glenohumeral joint spaces preserved. Acromiohumeral interval within normal limits. Moderate arthritic changes at the AC joint, type II acromion. Visualized lung huynh are clear.[facility] HospitalNOLA HealthcareRadiology Study observation (narrative)[facility] Blue SpringsAlanine aminotransferase [Enzymatic activity/volume] in Serum or PlasmaOrdered By: Pepe Guerra on 30-75-5331YVK [Catalytic activity/Vol]8 U/LNormal7-52Ohiohealth Doctors HospitalComment on above: Performed By: #### CMP, TSH3 wRFLX, CBC, B12, LIPID #### [facility] [address] [place] [address] USAAlbumin [Mass/volume] in Serum or Plasma by Bromocresol green (BCG) dye binding methoOrdered By: Pepe Guerra on 62-84-2493Nppzwmm BCG dye [Mass/Vol]4.4 g/dL3.5-5.7FAultman HospitalAlkaline phosphatase [Enzymatic activity/volume] in Serum or PlasmaOrdered By: Pepe Guerra on 77-65-8552RKI [Catalytic activity/Vol]101 U/BXxrwoz92-141UbdobleqjOhiohealth Doctors HospitalComment on above:Performed By: #### CMP, TSH3 wRFLX, CBC, B12, LIPID #### [facility] [address] [place] [address] USAAspartate aminotransferase [Enzymatic activity/volume] in Serum or PlasmaOrdered By: Pepe Guerra on 21-91-6228XAE [Catalytic activity/Vol]12 U/HHrw23-95EaskwlomxOhiohealth Doctors HospitalComment on above: Performed By: #### CMP, TSH3 wRFLX, CBC, B12, LIPID #### [facility] [address] [place] [address] USABasophils [#/volume] in Blood by Automated countOrdered By: Pepe Guerra on 10-82-5267Pkcsswzhr (Bld) [#/Vol]0.1 10*3/uLNormal0.0-0.2 [facility] Doctors HospitalComment on above:Result Comment: PERFORMED BY: [place] [address] PATHOLOGIST STEREOPTICIAN DUSTY MOREL M.D.Performed By: #### CMP, TSH3 wRFLX, CBC, B12, LIPID #### [facility] [address] [place] [address] USABasophils/100 leukocytes in Blood by Automated count Ordered By: Pepe Guerra on 77-30-0850Awqazhkld/100 WBC (Bld)0.8 %Normal. Ohio[facility] Doctors HospitalComment on above:Performed By: #### CMP, TSH3 wRFLX, CBC, B12, LIPID #### [facility] [address] [place] [address] USABilirubin.total [Mass/volume] in Serum or PlasmaOrdered By: Pepe Guerra on 49-13-7292Kuxmrvhpr [Mass/Vol]0.2 mg/dLLow0.3-1.0Ohiohealth Doctors HospitalComment on above:Performed By: #### CMP, TSH3 wRFLX, CBC, B12, LIPID #### [facility] [address] [place] [address] USACalcium [Mass/volume] in Serum or PlasmaOrdered By: Pepe Guerra on 11-60-5902Ugrvygh [Mass/Vol]9.0 mg/dLNormal8.6-10.3FAultman HospitalComment on above:Performed By: #### CMP, TSH3 wRFLX, CBC, B12, LIPID #### [facility] [address] [place] [address] USACarbon dioxide, total [Moles/volume] in Serum or Plasma Ordered By: Pepe Guerra on 21-06-8540TW3 [Moles/Vol]27.2 mmol/LNormal 21.0-31.0Ohio[facility] Doctors HospitalComment on above:Performed By: #### CMP, TSH3 wRFLX, CBC, B12, LIPID #### [facility] [address] [place] [address] USAChloride [Moles/volume] in Serum or PlasmaOrdered By: Pepe Guerra on 06-64-3082Hggvtzzp [Moles/Vol]107 mmol/LEbhhwt77-092GztljoimyOhiohealth Doctors HospitalComment on above:Performed By: #### CMP, TSH3 wRFLX, CBC, B12, LIPID #### [facility] [address] [place] [id number] USACholesterol [Mass/volume] in Serum or PlasmaOrdered By: Pepe Guerra on 26-95-1736Biblwhxtkfa [Mass/Vol]176 mg/vEFjehtt048-289 [facility] Doctors HospitalComment on above:Chol less than 200 mg/dl low riskChol 201-239 mg/dl borderline riskChol 240 mg/dl and greater high riskResult Comment: Chol less than 200 mg/dl low risk Chol 201-239 mg/dl borderline risk Chol 240 mg/dl and greater high riskPerformed By: #### CMP, TSH3 wRFLX, CBC, B12, LIPID #### [facility] [address] [place] [id number] USACholesterol in HDL [Mass/volume] in Serum or PlasmaOrdered By: Pepe Guerra on 97-94-0203Yeqzyzmegbu in HDL [Mass/Vol]57 mg/dLNormal 23-92Ohiohealth Doctors HospitalComment on above:HDL CHOL ATP-III CLASSIFICATION Cardiovascular RiskHDL > or equal to 60 mg/dL LOWHDL < 40 mg/dL HIGHResult Comment: HDL CHOL ATP-III CLASSIFICATION Cardiovascular Risk HDL > or equal to 60 mg/dL LOW HDL < 40 mg/dL HIGHPerformed By: #### CMP, TSH3 wRFLX, CBC, B12, LIPID #### [facility] [address] [place] [address] USACholesterol in LDL Calc [Mass/Vol]Ordered By: Pepe Guerra on 61-41-7774Xgdevxtiyou in LDL [Mass/Vol]91 mg/dL0-100Ohiohealth Doctors HospitalComment on above:LDL ATP III CLASSIFICATIONLDL less than 100 mg/dL OptimalLDL 100-129 mg/dL Near or above ctxlbhuXGB045-348 mg/dL Borderline highLDL 160-189 mg/dL HighLDL greater than 189 mg/dL Very high Cholesterol in VLDL Calc [Mass/Vol]Ordered By: Pepe Guerra on 02-28-2025 Cholesterol in VLDL [Mass/Vol]27 mg/dLOhiohealth Doctors HospitalComplete Blood Count Auto Diffon 27-32-1854Thzk Corpuscular HGB Conc33.5 g/dLNormal 32.0-35.0The [facility] Physician GroupComment on above:Performed By: #### CMP, TSH3 wRFLX, CBC, B12, LIPID #### [facility] [address] [place] [address] USANRBC%0.1 /100{WBC}Normal0-0.5[facility] Comment on above:Performed By: #### CMP, TSH3 wRFLX, CBC, B12, LIPID #### [facility] [address] [place] [address] USAWhite Blood Count10.1 [CFU]/mLNormal3.8-11.6The [facility] Physician GroupComment on above:Performed By: #### CMP, TSH3 wRFLX, CBC, B12, LIPID #### [facility] [address] [place] [address] USAComprehensive Metabolic Panelon 67-05-6655Cofrlih [Mass/Vol]4.4 g/dLNormal3.5-5.7The [facility] Physician GroupComment on above: Performed By: #### CMP, TSH3 wRFLX, CBC, B12, LIPID #### [facility] [address] [place] [address] USAGFR/1.73 sq M.predicted MDRD (S/P/Bld) [Vol rate/Area] mL/min/{1.73_m2}NormalThe Formerly [facility] Physician [facility] At Stone CountyComment on above:Performed By: #### CMP, TSH3 wRFLX, CBC, B12, LIPID #### [place] [address] USACreatinine [Mass/volume] in Serum or PlasmaOrdered By: Pepe Guerra on 19-12-9748Pqtlvxupfj [Mass/Vol]0.58 mg/dLLow0.60-1.20Ohio[facility] Doctors HospitalComment on above:Performed By: #### CMP, TSH3 wRFLX, CBC, B12, LIPID #### [place] [address] USAEosinophils [#/volume] in Blood by Automated countOrdered By: Pepe Guerra on 40-34-6576Uttprcbffkh (Bld) [#/Vol]0.1 10*3/uLNormal 0.0-0.45Ohiohealth Doctors HospitalComment on above:Performed By: #### CMP, TSH3 wRFLX, CBC, B12, LIPID #### [place] [address] USAEosinophils/100 leukocytes in Blood by Automated count Ordered By: Pepe Guerra on 38-41-0317Umegrhvfowi/100 WBC (Bld)1.3 %Normal. Ohio[facility] Doctors HospitalComment on above:Performed By: #### CMP, TSH3 wRFLX, CBC, B12, LIPID #### [place] [address] USAErythrocyte distribution width [Ratio] by Automated count Ordered By: Pepe Guerra on 89-40-4517Humsykaqbmi distribution width (RBC) [Ratio]13.7 %Gjtqag46.9-15.3FAultman HospitalComment on above: Performed By: #### CMP, TSH3 wRFLX, CBC, B12, LIPID #### [facility] [address] [place] [id number] USAErythrocytes [#/volume] in Blood by Automated countOrdered By: Pepe Guerra on 43-36-5558AQZ (Bld) [#/Vol]4.67 10*6/uLNormal3.60-5.00 [facility] Doctors HospitalComment on above:Performed By: #### CMP, TSH3 wRFLX, CBC, B12, LIPID #### [facility] [address] [place] [address] USAGlomerular filtration rate [Volume Rate/Area] in Serum, Plasma or Blood by CreatinineOrdered By: Pepe Guerra on 03-50-1837Fjdyzkqtrq filtration rate [Volume Rate/Area] in Serum, Plasma or Blood by Creatinine> 60.0 mL/MinOhiohealth Doctors HospitalGlucose [Mass/volume] in Serum or Plasma Ordered By: Pepe Guerra on 31-04-7755Vsthqkf [Mass/Vol]108 mg/gCQgjx18-170 [facility] Doctors HospitalComment on above:ADA recommended reference rangeRandom Glucose Reference Range is dependent on time and content of last meal. Glucose of more than 200 mg/dL in a nonstressed, ambulatory subject supports the diagnosisof Diabetes Mellitus.Result Comment: Random Glucose Reference Range is dependent on time and content of last meal. Glucose of more than 200 mg/dL in a nonstressed, ambulatory subject supports the diagnosis of Diabetes Mellitus. ADA recommended reference rangePerformed By: #### CMP, TSH3 wRFLX, CBC, B12, LIPID #### [facility] [address] [place] [address] USAHematocrit [Volume Fraction] of Blood by Automated count Ordered By: Pepe Guerra on 03-17-3941Sqewukongk (Bld) [Volume fraction]43.8 % Akrlca21.0-46.4FAultman HospitalComment on above:Performed By: #### CMP, TSH3 wRFLX, CBC, B12, LIPID #### [facility] [address] [place] [address] USAHemoglobin [Mass/volume] in BloodOrdered By: Pepe Guerra on 03-11-6549Hrhkuxblgb (Bld) [Mass/Vol]14.7 g/eAJdmnsa55.8-15.4 [facility] Doctors HospitalComment on above:Performed By: #### CMP, TSH3 wRFLX, CBC, B12, LIPID #### [facility] [address] [place] [address] USALeukocytes [#/volume] corrected for nucleated erythrocytes in Blood by Automated counOrdered By: Pepe Guerra on 96-38-9364ZAN corrected for nucl RBC Auto (Bld) [#/Vol]10.1 10*3/uL3.8-11.6FAultman HospitalLeukocytes [#/volume] in Blood by Automated countOrdered By: Pepe Guerra on 67-36-9080HYH (Bld) [#/Vol]10.1 10*3/uLNormal3.8-11.6FAultman HospitalComment on above:Performed By: #### CMP, TSH3 wRFLX, CBC, B12, LIPID #### [facility] [address] [place] [address] USALipid Panelon 91-46-8984BMG Cholesterol,Ugnwswuwvs88 mg/dL Normal0-100The [facility] Physician GroupComment on above:Result Comment: LDL ATP III CLASSIFICATION LDL less than 100 mg/dL Optimal LDL 100-129 mg/dL Near or above optimal LDL 130-159 mg/dL Borderline high LDL 160-189 mg/dL High LDL greater than 189 mg/dL Very highPerformed By: #### CMP, TSH3 wRFLX, CBC, B12, LIPID #### [facility] [address] [place] [address] USATriglyceride w/Yzhuvf198 mg/dLNormal0-149The [facility] Physician GroupComment on above:Result Comment: TRIG ATP III CLASSIFICATION TRIG less than 150 mg/dL Normal TRIG 150-199 mg/dL Borderline high TRIG 200-500 mg/dL High TRIG greater than 500 mg/dL Very high Standard traceable to the Center for Disease Conrtrol and Prevention (CDC) test method.Performed By: #### CMP, TSH3 wRFLX, CBC, B12, LIPID #### [facility] [address] [place] [id number] USAVLDL ROMCLITGKWZ71 mg/dLHCA Florida South Shore Hospital Physician GroupComment on above:Performed By: #### CMP, TSH3 wRFLX, CBC, B12, LIPID #### [facility] [address] [place] [address] USALymphocytes [#/volume] in Blood by Automated countOrdered By: Pepe Guerra on 77-94-0652Qgmxgirzymp (Bld) [#/Vol]2.5 10*3/uLNormal 1.00-4.8Ohio[facility] Doctors HospitalComment on above:Performed By: #### CMP, TSH3 wRFLX, CBC, B12, LIPID #### [facility] [address] [place] [address] USALymphocytes/100 leukocytes in Blood by Automated count Ordered By: Pepe Guerra on 27-66-2354Dbrtkgnxjuz/100 WBC (Bld)25.0 %Normal. [facility] Doctors HospitalComment on above:Performed By: #### CMP, TSH3 wRFLX, CBC, B12, LIPID #### [facility] [address] [place] [address] [Entitic mass] by Automated countOrdered By: Pepe Guerra on 40-68-9595ODQ (RBC) [Entitic mass]31.4 jeRutzlx17.7-34.3FAultman HospitalComment on above:Performed By: #### CMP, TSH3 wRFLX, CBC, B12, LIPID #### [facility] [address] [place], [place] [id number] [facility] Auto (RBC) [Mass/Vol]Ordered By: Pepe Guerra on 32-70-2925LACI (RBC) [Mass/Vol]33.5 g/dL32.0-35.0Ohiohealth Doctors HospitalMCV [Entitic volume] by Automated countOrdered By: Pepe Guerra on 63-96-3347ZUO (RBC) [Entitic vol]93.7 nMPujgus02-280PjbxsiyceOhiohealth Doctors HospitalComment on above:Performed By: #### CMP, TSH3 wRFLX, CBC, B12, LIPID #### [facility] [address] [place] [id number] USAMonocytes [#/volume] in Blood by Automated countOrdered By: Pepe Guerra on 68-48-9235Fzipilyjm (Bld) [#/Vol]0.5 10*3/uLNormal0.0-0.8 [facility] Doctors HospitalComment on above:Performed By: #### CMP, TSH3 wRFLX, CBC, B12, LIPID #### [facility] [address] [place] [id number] USAMonocytes/100 leukocytes in Blood by Automated count Ordered By: Pepe Guerra on 07-91-9452Aedwphfxu/100 WBC (Bld)5.3 %Normal. [facility] Doctors HospitalComment on above:Performed By: #### CMP, TSH3 wRFLX, CBC, B12, LIPID #### [facility] [address] [place], [place] [address] USANeutrophils [#/volume] in Blood by Automated countOrdered By: Pepe Guerra on 66-65-8279Kyvgqmuonwa (Bld) [#/Vol]6.8 10*3/uLNormal 1.8-7.7FAultman HospitalComment on above:Performed By: #### CMP, TSH3 wRFLX, CBC, B12, LIPID #### [facility] [address] [place], [place] [address] USANeutrophils/100 leukocytes in Blood by Automated count Ordered By: Pepe Guerra on 80-28-6933Yhhuzgxltql/100 WBC (Bld)67.6 %Normal. [facility] Doctors HospitalComment on above:Performed By: #### CMP, TSH3 wRFLX, CBC, B12, LIPID #### [facility] [address] [place], [place] [address] USANo Panel InformationOrdered By: Pepe Guerra on 16-63-8254Dvibzfki Creatinine Clearance (ChemN/Henry County HospitalNucleated erythrocytes [Presence] in Blood by Automated countOrdered By: Pepe Guerra on 84-20-5294Emhzphxcd RBC Auto Ql (Bld)0.1 /100{WBC}0-0.5 [facility] Doctors HospitalPlatelet mean volume [Entitic volume] in Blood by Automated countOrdered By: Pepe Guerra on 59-75-9160Eybmtkep mean volume (Bld) [Entitic vol]10.7 fLNormal6.3-10.7FAultman HospitalComment on above:Performed By: #### CMP, TSH3 wRFLX, CBC, B12, LIPID #### [facility] [address] [place] [address] USAPlatelets [#/volume] in Blood by Automated countOrdered By: Pepe Guerra on 51-30-7889Preisiogg (Bld) [#/Vol]188 10*3/mCLhskqv177-815 [facility] HospitalComment on above:Performed By: #### CMP, TSH3 wRFLX, CBC, B12, LIPID #### [facility] [address] [place] [address] USAPotassium [Moles/volume] in Serum or PlasmaOrdered By: Pepe Guerra on 48-46-8675Gdbuwftld [Moles/Vol]4.2 mmol/LNormal3.5-5.1 [facility] Doctors HospitalComment on above:Performed By: #### CMP, TSH3 wRFLX, CBC, B12, LIPID #### [facility] [address] [place] [address] USAProtein [Mass/volume] in Serum or PlasmaOrdered By: Pepe Guerra on 42-87-2292Nektnrc [Mass/Vol]6.6 g/dLNormal6.4-8.9[facility] Doctors HospitalComment on above:Performed By: #### CMP, TSH3 wRFLX, CBC, B12, LIPID #### [facility] [address] [place] [address] USASerum globulin measurement by calculation (mass/volume) Ordered By: Pepe Guerra on 49-61-4888Jnjslbqg (S) [Mass/Vol]2.2 g/dLNormal [facility] HospitalComment on above:Performed By: #### CMP, TSH3 wRFLX, CBC, B12, LIPID #### [facility] [address] [place] [address] USASerum or plasma albumin/globulin mass ratioOrdered By: Pepe Guerra on 94-64-8625Tnsesga/Globulin [Mass ratio]2.0 {ratio}Normal [facility] Doctors HospitalComment on above:Performed By: #### CMP, TSH3 wRFLX, CBC, B12, LIPID #### [facility] [address] [place] [address] USASerum or plasma anion gap determinationOrdered By: Pepe Guerra on 86-35-5468Xmnzc gap [Moles/Vol]9.0 mmol/LNormal6.0-15.0[facility] Doctors HospitalComment on above:Performed By: #### CMP, TSH3 wRFLX, CBC, B12, LIPID #### [facility] [address] [place] [address] USASerum or plasma total cholesterol/high density lipoprotein (HDL) cholesterol mass ratOrdered By: Pepe Guerra on 02-28-2025 Cholesterol.total/Cholesterol in HDL [Mass ratio]3.1 {ratio}Normal<5.0Ohio[facility] Doctors HospitalComment on above:Performed By: #### CMP, TSH3 wRFLX, CBC, B12, LIPID #### [facility] [address] [place] [address] USASodium [Moles/volume] in Serum or PlasmaOrdered By: Pepe Guerra on 34-30-1702Nxqgmz [Moles/Vol]139 mmol/RGdxfax456-802SvymcpnogOhiohealth Doctors HospitalComment on above:Performed By: #### CMP, TSH3 wRFLX, CBC, B12, LIPID #### [facility] [address] [place], [place] [address] USAThyroid Stim Hormone w/Rflxon 48-57-1061Nzjhnnw Stim Hormone w/Rflx1.84 u[iU]/mLNormal0.45-5.33The [facility] Physician GroupComment on above:Result Comment: PERFORMED BY: [place] [address] PATHOLOGIST STEREOPTICIAN DUSTY MOREL M.D.Performed By: #### CMP, TSH3 wRFLX, CBC, B12, LIPID ####[facility] [address] [place] [address] [place] Thyrotropin [Units/volume] in Serum or PlasmaOrdered By: Pepe Guerra on 23-08-3577DDK Qn1.84 m[IU]/L0.45-5.33[facility] Triglyceride [Mass/volume] in Serum or PlasmaOrdered By: Pepe Guerra on 83-06-0536Yqtkaiawgblv [Mass/Vol]138 mg/dL0-149[facility] Comment on above:TRIG ATP III CLASSIFICATIONTRIG less than 150 mg/dL NormalTRIG 150-199 mg/dL Borderline highTRIG 200-500 mg/dL High TRIG greater than 500 mg/dL Very highStandard traceable to the Center for Disease Conrtrol and Prevention (CDC) test method.Urea nitrogen [Mass/volume] in Serum or PlasmaOrdered By: Pepe Guerra on 32-58-9502Trsy nitrogen [Mass/Vol]9 mg/dLNormal7-25[facility] Doctors HospitalComment on above:Performed By: #### CMP, TSH3 wRFLX, CBC, B12, LIPID #### [facility] [address] [place] [address] USAVitamin B12 ser/plasOrdered By: Pepe Guerra on 81-18-3131Ngxedcufx (Vitamin B12) [Mass/Vol]353 pg/uGIanxfq036-480IiixkcbaqOhiohealth Doctors HospitalComment on above:Performed By: #### CMP, TSH3 wRFLX, CBC, B12, LIPID #### [facility] [address] [place] [id number] USAFollicle Stimulating Hormoneon 49-87-4231Swayyojy Stimulating Jbguwou08.2 m[iU]/mLNormalThe Formerly [facility] Physician GroupComment on above:Result Comment: FEMALE NORMALS (PREMENOPAUSE) MID-FOLLICULAR PHASE: 3.9-8.8 mIU/mL MID-CYCLE PEAK: 4.5-22.5 mIU/mL MID-LUTEAL PHASE: 1.8-5.1 mIU/mL FEMALE NORMALS (POSTMENOPAUSE): 16.7-113.6 mIU/mL MALE NORMALS: 1.3-19.3 mIU/mL PERFORMED BY: [facility] [address] [place] [address] PATHOLOGIST STEREOPTICIAN DUSTY MOREL M.D.Performed By: #### B12, FSH ####[facility] [address] [place] [address] USAFollitropin [Units/volume] in Serum or PlasmaOrdered By: Pepe Guerra on 23-57-7834Rxafbdtkgje Qn43.2 m[IU]/mL [facility] Doctors HospitalComment on above:FEMALE NORMALS (PREMENOPAUSE) MID-FOLLICULAR PHASE: 3.9-8.8 mIU/mL MID-CYCLE PEAK: 4.5-22.5 mIU/mL MID-LUTEAL PHASE: 1.8-5.1 mIU/mLFEMALE NORMALS (POSTMENOPAUSE): 16.7-113.6 mIU/mLMALE NORMALS: 1.3-19.3 mIU/mLVitamin B12 ser/plasOrdered By: Pepe Guerra on 63-35-0396Oqrejyeqa (Vitamin B12) [Mass/Vol]406 pg/eGShiems650-097OsuiubkagOhiohealth Doctors HospitalComment on above:Performed By: #### B12, FSH ####[facility] [place] [address] USAFSH and LHon 11-27-8295Jmrlpctqlvh Qn14.5 m[IU]/mLInvalid Interpretation [facility] HospitalComment on above:Result Comment: Adult Female Range Follicular phase 3.5 - 12.5 Ovulation phase 4.7 - 21.5 Luteal phase 1.7 - 7.7 Postmenopausal 25.8 - 134.8 Performed at: [facility] [address] [place] [address] [id number] PhD Nii PearcePerformed By: #### [id number] #### [facility] [address] [place], [place] [address]Ydbyammt Qn18.5 m[IU]/mLInvalid Interpretation [facility] HospitalComment on above:Result Comment: Adult Female Range Follicular phase 2.4 - 12.6 Ovulation phase 14.0 - 95.6 Luteal phase 1.0 - 11.4 Postmenopausal 7.7 - 58.5Performed By: #### [id number] #### [facility] [address] [address] 09-29-2024 Specimen: [id number] Received: 09/29/24 Status: BECKA Jacoboramila Num: [id number] Spec Type: Surgical Subm Dr: Dara Hardy MD Tissues: A BREAST CORE NO CALCS (RT BREAST 12:00 6 CM FROM NI) Procedures: BRENNEN/Mary Graff/Vladimir L4 Age/ Patient Sex Location Account Attending Physician Archana Joy 48/F MELA [id number] Rufina Jenkins SPEC NUM: [id number] RECD: 09/29/24 STATUS: BECKA NAIR NUM: [id number] GARETH: 09/29/24- [facility] DR: Dara Hardy MD ENTERED: 09/29/24 [facility] DR: Rufina Rubio SPEC TYPE: Surgical DEPT: [...] 54 hours and 30 minutes (2, ns, [id number] A) KASSIE Specimen: [id number] Received: 09/29/24 Status: BECKA Nair Num: [id number] Spec Type: Surgical Subm Dr: Dara Hardy MD Tissues: A BREAST CORE NO CALCS (RT BREAST 12:00 6 CM FROM NI) Procedures: Mary SANTAMARIA/Vladimir L4 Patient: Archana Joy N [id number] (Continued) Specimen: [id number] Received: 09/29/24 (Continued) Signed (signature on file) Leonidas Contreras MD 10/02/24 1053 Specimen: [id number] Received: 09/29/24 Status: BECKA Nair Num: [id number] Spec Type: Surgical Subm Dr: Dara Hardy MD Tissues: A BREAST CORE NO CALCS (RT BREAST 12:00 6 CM FROM NI) Procedures: Mary SANTAMARIA/Micro L4 Patient: Archana Joy N [id number] (Continued) Specimen: [id number] Received: 09/29/24 (Continued) Microscopic Description Microscopic examination is performed. CPT Codes 47113 Specimen: [id number] Received: 09/29/24 Status: BECKA Nair Num: [id number] Spec Type: Surgical Subm Dr: Dara Hardy MD Tissues: A BREAST CORE NO CALCS (RT BREAST 12:00 6 CM FROM NI) Procedures: HE/Prerna, Gross/Micro L4 Patient: Archaan Joy [id number] (Continued) Signed (signature on file) Leonidas Contreras MD 10/02/24 1053NoNov[facility] Physician GroupMM post biopsy RT w/CADon 26-86-1106HJ post biopsy RT w/[place] [address] Ultrasound Report Signed with Addenda Patient: Archana Joy MR#: [id number] : 1975 Acct:[id number] Age/Sex: 48 / F ADM Date: 09/29/24 Loc: [facility] Room: Type: [facility] Attending Dr: Rufina Rubio ACUTE CARE NURSING ASSISTANT-C Ordering Provider: Rufina Rubio Date of Service: 09/29/24 US/US biopsy RT 1st lesion guid: R92.8 ([id number]) MM/MM post biopsy RT w/CAD: CLIP PLACEMENT Copies to: Rufina Rubio ADDENDUM 1 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 No malignancy is identified. This is believed to be concordant. Follow-up ultrasound in 6 months could be cons idered. Impression dictated by: Dara Hardy M.D.10/03/2024 1:26 PM Dictation Location: [facility] Addendum Dictated By: MD Dara Hardy Addendum [...] Dara Hardy M.D.09/29/2024 11:50 AM Dictation Location: [facility] Tech: Funmilayo ReynosoLinda Monique Cortez Transcribed By: JORGE 09/29/24 1150 Dictated By: Dara Hardy MD 09/29/24 1102 Signed By: 09/29/24 1150[facility] diagnostic mammo BI w/CADon 05-62-1563MT diagnostic mammo BI w/[facility] Main [place] [address] [place] [address] Ultrasound Report Signed Patient: Archana Joy MR#: [id number] : 1975 Acct:[id number] Age/Sex: 48 / F ADM Date: 09/22/24 Loc: [place] Room: Type: [facility] Attending Dr: Rufina Rubio ACUTE CARE NURSING ASSISTANT-C Ordering Provider: Rufina Rubio Date of Service: 09/22/24 US/US breast BI limited: Breast lump in female;Breast cancer screening by mammogram ([id number]) MM/MM diagnostic mammo BI w/CAD: Breast lump in female;Breast cancer screening by mammogram Copies to: Rufina Lerma Rubio CLINICAL DATA: Palpable lump left breast. [...] grounds. Impression dictated by: Joe Gold Jr., Ursula.OGideon09/22/2024 10:15 AM Dictation Location: [facility] Tech: Zo Cortés; Shauna Woodall Transcribed By: JORGE 09/22/24 1015 Dictated By: Joe Gold Jr, DO 09/22/24 1000 Signed By: 09/22/24 1015[facility] Physician GroupUS bladderon 79-70-4511LL [facility] Main [address] [address] Ultrasound Report Signed Patient: Archana Joy MR#: [id number] : 1975 Acct:[id number] Age/Sex: 48 / F ADM Date: 09/20/24 Loc: UL Room: Type: [facility] CLI Attending Dr: Rufina Rubio ACUTE CARE NURSING ASSISTANT-C Ordering Provider: Rufina Rubio Date of Service: [...] Gold Jr., DGideonOGideon09/20/2024 1:48 PM Dictation Location: [place] [address] Tech: Bethany Damoncathryn Transcribed By: JORGE 09/20/24 1348 Dictated By: Joe Gold Jr, DO 09/20/24 1348 Signed By: 09/20/24 1348[facility] Physician GroupUS pelvic completeon 09-20-2024 US pelvic [facility] Main [address] [address] Ultrasound Report Signed Patient: Archana Joy MR#: [id number] : 1975 Acct:[id number] Age/Sex: 48 / F ADM Date: 09/20/24 Loc: UL Room: Type: [facility] CLI Attending Dr: Rufina Rubio ACUTE CARE NURSING ASSISTANT-C Ordering Provider: Rufina Rubio Date of Service: 09/20/24 US/US pelvic complete: Recurrent UTI;Pelvic pain in female ([id number]) US/US transvaginal: PELIVIC PAIN IN FEMALE Copies [...] Gold Jr., D.O.09/20/2024 1:50 PM Dictation Location: [place] [address] Tech: Bethany Neeta Transcribed By: JORGE 09/20/24 1350 Dictated By: Joe Gold Jr, DO 09/20/24 1348 Signed By: 09/20/24 [facility] Phys[facility] GroupJeff[facility] Cultureon 08-04-2024 Bacteria identified Cx Nom (U)Reason for Exam Urinary frequency Urine ORGANISM: Escherichia coli (O:ESCCOL) [place] Count >100,000 ORGANISM: Klebsiella pneumoniae (O:KLEPNE) [place] Count 75,000 Aerobic [place] Charge (NMIC56) SUSCEPTIBILITY ORGANISM: O:ESCCOL [...] <2 Tobramycin S <2 Trimethoprim/Sulfamethoxazole S <0.5 Aerobic [place] Charge (NMIC56) SUSCEPTIBILITY ORGANISM: O:KLEPNE ANTIBIOTIC INTERPRETATION [place] Amikacin S [...] RESISTANT TO ALL B-LACTAM DRUGS. PERFORMED BY: [place] [address] PATHOLOGIST STEREOPTICIAN CHRISTINA SINCLAIR M.D.[facility] Physician GroupComment on above: Performed By: #### CUU #### [place] [address] USAUrine cultureOrdered By: Rufina Rubio on 08-04-2024 Bacteria identified Cx Nom (U)Escherichia coliAbnormalFirelands Regional Medical CenterBacteria identified Cx Nom (U)AbnormalOhiohealth Doctors HospitalXR Shoulder - right 2 Viewson 65-61-0193Jhdglyc Result: 3 views right shoulder, Grashey/Zanca/outlet, taken today and saved to the permanent medical record are reviewed. No fractures.[facility] HealthcareRadiology Study observation (narrative)[facility] HealthcareMain OR Intraoperative Recordon 95-67-6574Kkcb OR Intraoperative RecordMain OR Intraoperative Record IntraOp Document Type FT Summary Primary Physician: Michael Henderson DO Finalized Date/Time: 05/22/24 09:22:47 Pt. Name: RUFINO ARCHANA Harrison D.O.B./Sex: 1975 Female Med Rec #: [id number] Physician: Michael Henderson DO Financial #: [id number] Pt. Type: A Room/Bed: [place] [address] Admit/Disch: 05/19/24 06:22:55 - 05/19/24 12:30:00 Institution: [...] Entry 2 Entry 3 Case Attendee Pancho DNP, SOAKING PITS SUPERVISOR, Dove Michael Henderson DO, CST, Diane Swan Role Performed SOAKING PITS SUPERVISOR Surgeon - Primary MATH AND PHYSICS INSTRUCTOR/SA Time In 05/19/24 09:13:00 05/19/24 09:40:00 05/19/24 09:13:00 Time Out 05/19/24 10:41:00 05/19/24 10:30:00 05/19/24 10:41:00 Procedure SHOULDER ARTHROSCOPY W/ SHOULDER ARTHROSCOPY W/ SHOULDER ARTHROSCOPY W/ POSSIBLE REPAIR(Right) POSSIBLE REPAIR(Right) POSSIBLE REPAIR(Right) Comments DR. DONALD STEM SETTER Last Modified By: Nitin Hernandez Ii, Alfons Ii F Letrondo, Alfons Ii F 05/19/24 10:47:50 05/19/24 10:48:01 05/19/24 10:47:50 Entry 4 Entry 5 Case Attendee Miesha Davis Alfons Ii F Role Performed Scrub - Primary Rn Emergency - Primary Time In 05/19/24 09:13:00 05/19/24 09:13:00 Time Out 05/19/24 10:41:00 05/19/24 10:41:00 Procedure SHOULDER ARTHROSCOPY W/ SHOULDER ARTHROSCOPY W/ POSSIBLE REPAIR(Right) POSSIBLE REPAIR(Right) Comments Last Modified By: Nitin Hernandez Ii, Alfons Ii F 05/19/24 10:47:50 05/19/24 10:47:50 General Comments: CATRACHO GAO FROM [facility] IS IN ATTENDANCE. /QASIM EDGEdie stamper Protocols FT Pre-Care Text: Implements protective measures [...] and tissue Entry 1 Skin Integrity Intact, [place], Warm, & Skin Abnormality No Dry Outcomes Met? Yes Last Modified By: Nitin Hernandez Ii 05/19/24 10:01:30 Post-Care Text: The patient is free from signs and symptoms of injury caused by extraneous objects Patient Positioning FT Pre-Care Text: Identifies physical a (more content not included)...[facility] CampusDischarge Instructionson 66-92-8328Jlrejphbj InstructionsDischarge Instructions ARCHANA JOY :1975 Visit Date:05/19/2024 Inpatient Discharge Instructions Your Care Team Admitting Physician - Michael Henderson DO Referring Physician - Michael Henderson DO Reason for Your Visit RIGHT SHOULDER ROTATOR CUFF TEAR This Is Your Medications List acetaminophen-oxycodone (Percocet 5 mg-325 mg oral tablet) albuterol [...] EST Comments: Call for any problems. Where: [address] [place] [address]- Business (1) Medications What How Much When Instructions Next Dose New acetaminophen-oxycodone (Percocet 5 mg-325 mg oral tablet) See instructions 1-2 tab(s) Oral q4hr Pickup at [facility] [id number] New docusate (Colace 100 mg Cap) 1 Capsules By Mouth 2 times a day as needed for for constipation Pickup at [facility] [id number] New gabapentin (gabapentin 300 mg Cap) 1 Capsules By Mouth 3 times a day Duration: 14 Days Pickup at [facility] [id number] Unchanged albuterol (albuterol 0.083% Inh Ana Lilia [...] Mouth 2 times a day Pharmacy Information [facility] [id number]: [address] [place], [place] [id number] [phone] Test Results No qualifying data available. Allergies [...] EYELET WITH #2 FIBERWIRE 05/19/2024 Education Materials [place], [place] [facility] AFTER YOUR SHOULDER ARTHROSCOPY [...] dressing should be c (more content not included)...[facility] Comment on above:Result Comment: Electronically Signed By: Essie TRIPP, Henna Montalvo\.br\Date and Time Signed: 05/19/24 11:11 ESTInpatient Patient Summaryon 35-11-1511Orocqkmbz Patient SummaryInpatient Patient Summary [address] [address] [facility] Clinical Discharge Instructions PERSON INFORMATION Name: ARCHANA JOY [facility]#:[id number] PHYSICIANS Admitting Physician: Michael Henderson DO Attending Physician: Michael Henderson DO PCP: Cande Hinds MD Discharge Diagnosis: Comment: PATIENT EDUCATION INFORMATION Instructions: Jessica Henderson - After Your Shoulder Arthroscopy (Custom) Medication Leaflets: Follow up: MEDICATION LIST New Medications [facility] [id number], [address], [place] [id number], [phone] acetaminophen-oxycodone (Percocet 5 mg-325 mg oral tablet) 1-2 tab(s) Oral q4hr. Refills: 0. docusate (Colace 100 mg Cap) 1 Capsules By Mouth 2 times a day as needed for constipation. Refills:0. gabapentin (gabapentin 300 mg Cap) 1 Capsules [...] Capsules By Mouth 2 times a day. Comment:[facility] CampusMain OR PACU I Recordon 79-22-2987Wotw OR PACU I RecordMain OR PACU I Record PACU Phase I Document Type FT Summary Primary Physician: Michael Henderson DO Finalized Date/Time: 05/19/24 12:20:11 Pt. Name: ARCHANA JOY Jose Fair./Sex: 1975 Female Med Rec #: [id number] Physician: Michael Henderson DO Financial #: [id number] Pt. Type: A Room/Bed: [facility] Admit/Disch: 05/19/24 06:22:55 - Institution: Case Times [...] individualized perioperative plan of care The patient's rightto privacy is maintained The patient's value system, [...] with or improved from baseline levels established preoperativelyThe patient's cardiovascular status is consistent with or improved from baseline levels established preoperatively The patient's cardiovascular status is consistent with or improved from baseline levels established preoperatively The patient demonstrates and/or reports adequate pain control throughout the perioperative period The patient received appropriate medication(s), safely administered during the perioperativeperiod Acuity Level PACU I FT Entry 1 Start Time 05/19/24 10:42:00 Stop Time 05/19/24 11:29:00 Acuity Level Acuity Level I Last Modified By: Birdie eBnnett RN 05/19/24 12:20:07 Finalized By: Birdie Bennett RN Document Signatures Signed By: Birdie Bennett RN 05/19/24 12:20NoKing's Daughters Medical Center OhioMain OR Preoperative Recordon [id number] OR Preoperative RecordMain OR Preoperative Record PreOp Document Type FT Summary Primary Physician: Michael Henderson DO Finalized Date/Time: 05/19/24 09:57:42 Pt. Name: ARHCANA JOY /Sex: 1975 Female Med Rec #: [id number] Physician: Michael Henderson DO Financial #: [id number] Pt. Type: Room/Bed: [place] [address] Admit/Disch: 05/19/24 06:22:55 - Institution: Case Times [...] Signatures Signed By: Nitin Hernandez Ii 05/19/24 09:57NoKing's Daughters Medical Center OhioOperative Reporton 78-18-1017Ovcstngat ReportOperative Report Patient: ARCHANA JOY Age: 48 years Sex: Female : 1975 Associated Diagnoses: None Author: Michael Henderson DO DATE OF SURGERY: 05/19/2024 SURGEON: Michael Henderson D.O. EQUIPMENT TECH: Diane Tanner CFA PREOPERATIVE DIAGNOSIS: Rotator cuff [...] anchor OPERATIVE INDICATIONS: Archana is a 48-year-old eowls-wsbe-monzlbug female who has a history of right shoulder arthroscopy,subacromial decompression, distal clavicle excision, and mini open [...] alternatives, and expectations. Please see office notes forfurther details. PROCEDURE IN DETAIL: The correct operative [...] into the beachchair position with all bony pr ominences well-padded. The head was secured in the padded baltazar. Surgical timeout was performed with all required personnel present. The operative shoulder was examined and found to have full forward flexion, abduction, internal andexternal rotation. No anterior or posterior instability. The [...] Rotator cuff: Subscapularis and infraspinatus intact. High-grade partial- thickness bursal sided tearing of the anterior supraspinatus. [...] placed. Bursectomy was carried out with the [place] wand and shaver. The Prolene suture was [...] cleared from the great (more content not included)...[facility] CampusComment on above:Result Comment: Electronically Signed By: Michael Henderson DO\sonia\Date and Time Signed: 05/19/24 11:07 ESTOutpatient Surgery Discharge Instructionon 26-31-7593Wmklhwdkti Surgery Discharge Instruction Outpatient Surgery Discharge Instruction [place] [id number] Patient Discharge Instructions PERSON INFORMATION Name: ARCHANA JOY Date of : 1975 Current Date: 05/19/2024 07:57:20 PHYSICIANS Admitting Physician: Michael Henderson DO Discharge Diagnosis: ARCHANA JOY has been given the following list of follow-up instructions, prescriptions, and patient education materials: IF UNABLE TO CONTACT YOUR PHYSICIAN AND YOU FEEL IT IS AN EMERGENCY, GO TO THE NEAREST EMERGENCY ROOM OR CALL 911 RUFINO Keen BRANDI N, have received the attached patient education materials/instructions and have verbalized understanding: May we do a follow up call? Yes No I was present when discharge instructions were given Patient Signature Date Clinican/Nurse Signature Date Follow up: Pharmacy Information: You may receive a survey from Anu Gilbert asking you to rate your care experience. Your feedback is important and will help us understand what we do well and how we can improve the quality of care we provide to you, your loved ones and our community. It???s an honor to serve you. Thank you for choosing [facility] HERE ARE THE MEDICATION CHANGES THAT OCCURRED DURING YOUR HOSPITAL STAY New Medications [facility] [id number], [address], [place] [address], [phone] acetaminophen-oxycodone (Percocet 5 mg-325 mg oral tablet) 1-2 tab(s) Oral q4hr. Refills: 0. docusate (Colace 100 mg Cap) 1 Capsules By Mouth 2 times a day as needed for constipation. Refills:0. gabapentin (gabapentin 300 mg Cap) 1 Capsules [...] times a day. PATIENT EDUCATION INFORMATION Instructions: [place] [place] [facility] AFTER YOUR SHOULDER ARTHROSCOPY [...] several days. The br (more content not included)...[facility] Proceduralon [id number] Patient: ARCHANA JOY Age: 48 years Sex: Female : 1975 Associated Diagnoses: None Author: Pancho HARKINS CRNA, Queen N. Procedure Nerve Block Block Type: Interscalene [...] Using maximal sterile barrier technique per current [facility] guidelines including hand hygeine, Guidance (Ultrasound used [...] of the anesthestic was observed, Periodic negative attemptsat aspiration of blood were made as the local was injected, No pain or parathesia were elicited with injection of the anesthetic in the conscious patient, It was idetified that the correct anestheticagent was administered to the correct site. Complications: The patient tolerated the procedure as expected, Procedure completed by Queen Pancho CRNA under Dr Donald's supervision..[facility] CampusXR Chest 2 Viewson 60-36-8553SF Chest 2 ViewsExam Date/Time: 05/04/2024 14:46 EDT Reason for Exam: [...] Ka,r in mGy = na DAP = naNormalDayton Children'S HospitalBMPon 41-05-8603Cmcni gap [Moles/Vol]9 mmol/LNormal6-16[facility] Children'S HospitalComment on above:Performed By: #### [id number] #### [facility] [address], [place] [address]Gfvysjs [Mass/Vol]9.3 mg/dLNormal8.9-11.1FMetroHealth Parma Medical CenterComment on above:Performed By: #### [id number] #### [facility] [address], [place] [address]Lzzmhxgn [Moles/Vol]103 mmol/CRkpmsx948-821JerrlaDayton Children'S HospitalComment on above:Performed By: #### [id number] #### [facility] [address], [place] [address]BG4 [Moles/Vol]28 mmol/BXjngdc35-41DzfhisDayton Children'S Hospital Comment on above:Performed By: #### [id number] #### [facility] [address], [place] [address]Eqprjxkenk [Mass/Vol]0.6 mg/dLNormal0.5-1.3FMetroHealth Parma Medical CenterComment on above:Performed By: #### [id number] #### [facility] [address], [place] [address]Fzlquyn [Mass/Vol]97 mg/zAZglwcb40-260CneuprDayton Children'S HospitalComment on above:Performed By: #### [id number] #### [facility] [address], [place] [address]Dkfcakiof [Moles/Vol]3.6 mmol/LNormal3.5-5.3FMetroHealth Parma Medical CenterComment on above:Performed By: #### [id number] #### [facility] [address], [place] [address]Ppcwth [Moles/Vol]136 mmol/YOfwldd036-450CkbxedDayton Children'S HospitalComment on above:Performed By: #### [id number] #### [facility] [address], [place] [address]Lutz nitrogen [Mass/Vol]9 mg/dLNormal5-21Day[facility] Children'S HospitalComment on above:Performed By: #### [id number] #### [facility] [address], [place] [address]Sdgd nitrogen/Creatinine [Mass ratio]15 No SwuszVejdca52-04 [facility]'S HospitalComment on above:Performed By: #### [id number] #### [facility] [address], [place] [address]LEU w/ Auto Diffon 18-61-0492Svefatksh/100 WBC (Bld)0.7 %Normal 0.0-2.0Day[facility] Children'S HospitalComment on above:Performed By: #### [id number] #### [facility] [address] [place] [address]Ecycbseau/Leukocytes Auto (Bld) [Pure # fraction]0.1 E9/LNormal 0.0-0.2FMetroHealth Parma Medical CenterComment on above:Performed By: #### [id number] #### [facility] [address] [place] [address]Yztbtikuqne (Bld) [#/Vol]0.1 E9/LNormal0.0-0.5FMetroHealth Parma Medical CenterComment on above:Performed By: #### [id number] #### [facility] [address] [place] [address]Miiyhqfetly/100 WBC (Bld)1.1 %Normal0.0-8.0Day[facility] Children'S HospitalComment on above:Performed By: #### [id number] #### [facility] [address] [place] [address]Pbsvgbdpjuc distribution width (RBC) [Ratio]13.4 %Normal 10.9-14.2FMetroHealth Parma Medical CenterComment on above:Performed By: #### [id number] #### [facility] [address] [place] [address]Esxovyvimh (Bld) [Volume fraction]41.2 %Tfzope06.0-46.0Day[facility] Children'S HospitalComment on above:Performed By: #### [id number] #### [facility] [address] [place] [address]Toynjtzqak (Bld) [Mass/Vol]14.2 g/cNSkxqgx81.0-16.0[facility]'S HospitalComment on above:Performed By: #### [id number] #### [facility] [address] [place] [address]Fbwcgklovnj (Bld) [#/Vol]2.9 E9/LNormal1.0-4.0Day[facility] Children'S HospitalComment on above:Performed By: #### [id number] #### [facility] [address] [place] [address]Xiwvljtinqx/100 WBC (Bld)36.1 %Jlpatv94.0-50.0[facility] Children'S HospitalComment on above:Performed By: #### [id number] #### [facility] [address] [place] [address]PDK (RBC) [Entitic mass]31.7 qsNkwfnr78.0-34.0[facility]'S HospitalComment on above:Performed By: #### [id number] #### [facility] [address] [place] [address]PNMJ (RBC) [Mass/Vol]34.4 g/cOStxcep05.4-36.0[facility]'S HospitalComment on above:Performed By: #### [id number] #### [facility] [address] [place] [address]JBT (RBC) [Entitic vol]92.2 xJLxanaa60.0-100.0[facility]'S HospitalComment on above:Performed By: #### [id number] #### [facility] [address] [place] [address]Fdbjswtsh (Bld) [#/Vol]0.6 E9/LNormal0.2-1.0[facility]'S HospitalComment on above:Performed By: #### [id number] #### [facility] [address] [place] [address]Bqoltwwzjca (Bld) [#/Vol]4.4 E9/LNormal2.0-7.5FMetroHealth Parma Medical CenterComment on above:Performed By: #### [id number] #### [facility] [address] [place] [address]Anszkpexxrr/100 WBC (Bld)55.2 %Stpesx97.0-75.0[facility]'S HospitalComment on above:Performed By: #### [id number] #### [facility] [address] [place] [address]Yfrcakge mean volume (Bld) [Entitic vol]9.3 fLNormal6.4-10.8 [facility]'S HospitalComment on above:Performed By: #### [id number] #### [facility] [address] [place] [address]Smuwuvuju (Bld) [#/Vol]207.0 E9/KNzsmke456.0-500.0[facility]'S HospitalComment on above:Performed By: #### [id number] #### [facility] [address] [place] [address]GGV (Bld) [#/Vol]4.5 E12/LNormal4.3-5.9[facility]'S HospitalComment on above:Performed By: #### [id number] #### [facility] [address] [place] [address]PWW corrected for nucl RBC Auto (Bld) [#/Vol]8.0 E9/LNormal 4.0-11.0[facility]'S HospitalComment on above:Performed By: #### [id number] #### [facility] [address] [place] [address]JZRLXUUHAAjakisf By: SYSTEM SYSTEM on 28-74-6055Tejhw gap [Moles/Vol]9 mmol/LNormal6 - 16 mEq/LRemisol ChemCalcium [Mass/Vol]9.3 mg/dL Normal8.9 - 11.1 mg/dLRemisol ChemChloride [Moles/Vol]103 mmol/BDkfqks632 - 111 mmol/LRemisol ChemCO2 [Moles/Vol]28 mmol/JImbprl54 - 31 mmol/LRemisol Chem Creatinine [Mass/Vol]0.6 mg/dLNormal0.5 - 1.3 mg/dLRemisol AvnpbBQK142 mL/min/1.73 w7Umnpmy>=59mL/min/1.73 y4Xtfoebh ChemGlucose [Mass/Vol]97 mg/dL Zyupbp87 - 199 mg/dLRemisol ChemPotassium [Moles/Vol]3.6 mmol/LNormal3.5 - 5.3 mmol/LRemisol ChemSodium [Moles/Vol]136 mmol/NKmijty341 - 145 mmol/LRemisol Chem Urea nitrogen [Mass/Vol]9 mg/dLNormal5 - 21 mg/dLRemisol ChemUrea nitrogen/Creatinine [Mass ratio]15 mg/jwMbderz46 - 20Remisol ChemHEMATOLOGY Ordered By: SYSTEM SYSTEM on 87-07-1189Aoaayplam/100 WBC (Bld)0.7 %Normal0.0 - 2.0 %Remisol HemeBasophils/Leukocytes Auto (Bld) [Pure # fraction]0.1 E9/LNormal 0.0 - 0.2 E9/LRemisol HemeEosinophils (Bld) [#/Vol]0.1 E9/LNormal0.0 - 0.5 E9/L Remisol HemeEosinophils/100 WBC (Bld)1.1 %Normal0.0 - 8.0 %Remisol Heme Erythrocyte distribution width (RBC) [Ratio]13.4 %Ykrqxt28.9 - 14.2 %Remisol HemeHematocrit (Bld) [Volume fraction]41.2 %Fjflla36.0 - 46.0 %Remisol Heme Hemoglobin (Bld) [Mass/Vol]14.2 g/kOGnxapy85.0 - 16.0 gm/dLRemisol Heme Lymphocytes (Bld) [#/Vol]2.9 E9/LNormal1.0 - 4.0 E9/LRemisol HemeLymphocytes/100 WBC (Bld)36.1 %Srmvpm03.0 - 50.0 %Remisol HemeMCH (RBC) [Entitic mass]31.7 pg Odfgsz64.0 - 34.0 pgRemisol HemeMCHC (RBC) [Mass/Vol]34.4 g/bTYfbskd53.4 - 36.0 gm/dLRemisol HemeMCV (RBC) [Entitic vol]92.2 kKXrlges37.0 - 100.0 fLRemisol Heme Monocytes (Bld) [#/Vol]0.6 E9/LNormal0.2 - 1.0 E9/LRemisol HemeMonocytes/100 WBC (Bld)6.9 %Normal4.0 - 14.0 %Remisol HemeNeutrophils (Bld) [#/Vol]4.4 E9/LNormal 2.0 - 7.5 E9/LRemisol HemeNeutrophils/100 WBC (Bld)55.2 %Rfczxf56.0 - 75.0 % Remisol HemePlatelet mean volume (Bld) [Entitic vol]9.3 fLNormal6.4 - 10.8 fL Remisol HemePlatelets (Bld) [#/Vol]207.0 E9/BSzpwkr881.0 - 500.0 E9/LRemisol HemeRBC (Bld) [#/Vol]4.5 E12/LNormal4.3 - 5.9 E12/LRemisol HemeWBC corrected for nucl RBC Auto (Bld) [#/Vol]8.0 E9/LNormal4.0 - 11.0 E9/LRemisol HemeeGFRon 22-59-6444qFZC215 mL/min/1.73 y0Efwsma>=59Dayton Children'S HospitalComment on above:Performed By: #### [id number] ####[facility] [address] [place], [place] [address]Dsugqqi aminotransferase [Enzymatic activity/volume] in Serum or PlasmaOrdered By: Rufina Rubio on 09-28-2023 ALT [Catalytic activity/Vol]7 U/L7-52Ohio[facility] Doctors HospitalAlbumin [Mass/volume] in Serum or Plasma by Bromocresol green (BCG) dye binding metho Ordered By: Rufina Rubio on 71-51-7777Anjmsvf BCG dye [Mass/Vol]4.9 g/dL 3.5-5.7FAultman HospitalAlkaline phosphatase [Enzymatic activity/volume] in Serum or PlasmaOrdered By: Rufina Rubio on 09-28-2023 ALP [Catalytic activity/Vol]100 U/Q70-219FzmzzlntaOhiohealth Doctors Hospital Aspartate aminotransferase [Enzymatic activity/volume] in Serum or PlasmaOrdered By: Rufina Rubio on 05-28-7212BTD [Catalytic activity/Vol]11 U/L13-39 [facility] Doctors HospitalBilirubin.total [Mass/volume] in Serum or PlasmaOrdered By: Rufina Rubio on 96-31-0690Szophghxm [Mass/Vol]0.3 mg/dL 0.3-1.0[facility] Doctors HospitalCalcium [Mass/volume] in Serum or Plasma Ordered By: Rufina Rubio on 30-53-0892Mnfoqec [Mass/Vol]9.7 mg/dL8.6-10.3 [facility] Doctors HospitalCarbon dioxide, total [Moles/volume] in Serum or PlasmaOrdered By: Rufina Rubio on 69-98-5298AE1 [Moles/Vol]29.3 mmol/L 21.0-31.0[facility] Doctors HospitalChloride [Moles/volume] in Serum or PlasmaOrdered By: Rufina Rubio on 24-96-3116Rnviuszv [Moles/Vol]107 mmol/D54-393PbkcmuzphOhiohealth Doctors HospitalCreatinine [Mass/volume] in Serum or PlasmaOrdered By: Rufina Rubio on 28-78-3033Dgvgfgsikg [Mass/Vol]0.60 mg/dL0.60-1.20[facility] Doctors HospitalFerritin [Mass/volume] in Serum or PlasmaOrdered By: Rufina Rubio on 24-31-6565Otjenwig [Mass/Vol]72.4 ng/mL11.0-306.8[facility] Doctors HospitalFolate [Mass/volume] in Serum or PlasmaOrdered By: Rufina Rubio on 25-72-9556Rpjlxe [Mass/Vol]6.3 ng/mL >5.9Ohio[facility] Doctors HospitalComment on above:Folate reference range: >5.9 ng/mlThe WHO technical consultation on folate and vitamin y73wexflirfktvw has determined that folate concentrations lessthan 4 ng/ml are considered deficient.Globulin Calc (S) [Mass/Vol]Ordered By: Rufina Rubio on 95-33-5569Riwvtspo (S) [Mass/Vol]2.2 g/dLOhiohealth Doctors Hospital Glucose [Mass/volume] in Serum or PlasmaOrdered By: Rufina Rubio on 93-92-7697Ypokgmy [Mass/Vol]90 mg/pP72-754FcvmckynpOhiohealth Doctors Hospital Comment on above:ADA recommended reference rangeRandom Glucose Reference Range is dependent on time and content of last meal. Glucose of more than 200 mg/dL in a nonstressed, ambulatory subject supports the diagnosisof Diabetes Mellitus. Iron [Mass/volume] in Serum or PlasmaOrdered By: Rufina Rubio on 88-52-9273Yqix [Mass/Vol]92 ug/zC50-256VfifcxvdlOhiohealth Doctors HospitalIron binding capacity [Mass/volume] in Serum or PlasmaOrdered By: Rufina Rubio on 68-96-2980Ptrs binding capacity [Mass/Vol]323 ug/mL975-766HyjuzsswnOhiohealth Doctors HospitalIron saturation [Mass Fraction] in Serum or PlasmaOrdered By: Rufina Rubio on 96-04-3197Mzch saturation [Mass fraction]28.5 %20-50 [facility] HospitalNo Panel InformationOrdered By: Rufina Rubio on 17-98-2655Xxsijdlqy GFR (CKD-EPI)> 60.0 mL/MinOhiohealth Doctors HospitalPharmacy Creatinine Clearance (ChemN/[facility] HospitalPotassium [Moles/volume] in Serum or PlasmaOrdered By: Rufina Rubio on 90-64-1340Xjrnfvsni [Moles/Vol]3.9 mmol/L3.5-5.1FAultman HospitalProtein [Mass/volume] in Serum or PlasmaOrdered By: Rufina Rubio on 93-13-1787Wpqrmry [Mass/Vol]7.1 g/dL6.4-8.9[facility] Serum or plasma albumin/globulin mass ratioOrdered By: Rufina Rubio on 41-82-5853Ahnflzh/Globulin [Mass ratio]2.2 {ratio}[facility] Centererum or plasma anion gap determinationOrdered By: Rufina Rubio on 03-31-2964Odbzn gap [Moles/Vol]8.6 mmol/L6.0-15.0[facility] Centerodium [Moles/volume] in Serum or PlasmaOrdered By: Rufina Rubio on 49-33-2154Gelexp [Moles/Vol]141 mmol/V264-331KrlqjkmfwOhiohealth Doctors Hospital Thyrotropin [Units/volume] in Serum or PlasmaOrdered By: Rufina Rubio on 43-08-7392TSU Qn2.58 m[IU]/L0.45-5.33[facility] Doctors HospitalThyroxine (T4) free [Mass/volume] in Serum or PlasmaOrdered By: Rufina Rubio on 87-89-7271Zkok T4 [Mass/Vol]0.86 ng/dL0.61-1.12[facility] Transferrin [Mass/volume] in Serum or PlasmaOrdered By: Rufina Rubio on 70-51-6257Cinogfznofo [Mass/Vol]231 mg/tE949-347LrddounxfOhiohealth Doctors HospitalUrea nitrogen [Mass/volume] in Serum or PlasmaOrdered By: Rufina Rubio on 47-43-8952Jhdy nitrogen [Mass/Vol]10 mg/dL7-25[facility] Doctors HospitalVitamin B12 ser/plasOrdered By: Rufina Rubio on 09-28-2023 Cobalamin (Vitamin B12) [Mass/Vol]6683 pg/oN997-309YbaiwpelwOhiohealth Doctors HospitalAerobic cultureOrdered By: NATHALIA Galeana on 27-61-8494Hajgkymx identified Aer cx Nom (Unsp spec)2 DaysOhiohealth Doctors HospitalAlanine aminotransferase [Enzymatic activity/volume] in Serum or PlasmaOrdered By: Rufina Rubio on 67-45-0219DNR [Catalytic activity/Vol]7 U/L7-52[facility] Doctors HospitalAlbumin [Mass/volume] in Serum or Plasma by Bromocresol green (BCG) dye binding methoOrdered By: Rufina Rubio on 03-19-2023 Albumin BCG dye [Mass/Vol]4.3 g/dL3.5-5.7FA[facility] Hospital Alkaline phosphatase [Enzymatic activity/volume] in Serum or PlasmaOrdered By: Rufina Rubio on 32-92-1441ZNI [Catalytic activity/Vol]100 U/L34-104 [facility] HospitalAspartate aminotransferase [Enzymatic activity/volume] in Serum or PlasmaOrdered By: Rufina Rubio on 03-19-2023 AST [Catalytic activity/Vol]10 U/W10-80EvfzwuwjjOhiohealth Doctors Hospital Basophils Auto (Bld) [#/Vol]Ordered By: Rufina Rubio on 03-19-2023 Basophils (Bld) [#/Vol]0.0 10*3/uL0.0-0.2FAultman Hospital Basophils/100 WBC Auto (Bld)Ordered By: Rufina Rubio on 03-19-2023 Basophils/100 WBC (Bld)0.4 %.[facility] Doctors HospitalBilirubin.total [Mass/volume] in Serum or PlasmaOrdered By: Rufina Rubio on 03-19-2023 Bilirubin [Mass/Vol]0.3 mg/dL0.3-1.0[facility] HospitalCalcium [Mass/volume] in Serum or PlasmaOrdered By: Rufina Rubio on 03-19-2023 Calcium [Mass/Vol]9.6 mg/dL8.6-10.3FAultman HospitalCarbon dioxide, total [Moles/volume] in Serum or PlasmaOrdered By: Rufina Rubio on 22-15-8037LR9 [Moles/Vol]29.4 mmol/L21.0-31.0[facility] HospitalChloride [Moles/volume] in Serum or PlasmaOrdered By: Rufina Rubio on 54-63-7934Tfyzrgcn [Moles/Vol]108 mmol/M80-567ZhgcvsdnoOhiohealth Doctors HospitalCholesterol [Mass/volume] in Serum or PlasmaOrdered By: Rufina Rubio on 29-50-6194Ggarpgxvazv [Mass/Vol]164 mg/aN545-713JyvsmtqwfOhiohealth Doctors HospitalComment on above:Chol less than 200 mg/dl low riskChol 201-239 mg/dl borderline riskChol 240 mg/dl and greater high riskCholesterol in LDL Calc [Mass/Vol]Ordered By: Rufina Rubio on 70-12-7304Mmsvfihvyny in LDL [Mass/Vol]84 mg/dL0-100Ohio[facility] HospitalComment on above:LDL ATP III CLASSIFICATIONLDL less than 100 mg/dL OptimalLDL 100-129 mg/dL Near or above wbwowvyTUY634-910 mg/dL Borderline highLDL 160-189 mg/dL HighLDL greater than 189 mg/dL Very highCholesterol in VLDL Calc [Mass/Vol]Ordered By: Rufina Rubio on 48-48-5128Jfoacwzxnuf in VLDL [Mass/Vol]19 mg/dLOhiohealth Doctors HospitalCreatinine [Mass/volume] in Serum or PlasmaOrdered By: Rufina Rubio on 72-04-1798Czvlrxwzhf [Mass/Vol]0.74 mg/dL0.60-1.20[facility] HospitalEosinophils Auto (Bld) [#/Vol]Ordered By: Rufina Rubio on 92-75-4241Xlmawpgqdal (Bld) [#/Vol]0.1 10*3/uL0.0-0.45[facility] Doctors HospitalEosinophils/100 WBC Auto (Bld)Ordered By: Rufina Rubio on 20-00-9262Zzvukisgbji/100 WBC (Bld)1.5 %.[facility] HospitalErythrocyte distribution width Auto (RBC) [Ratio]Ordered By: Rufina Rubio on 39-51-1838Jcfmqvjigwr distribution width (RBC) [Ratio] 13.7 %11.9-15.3FAultman HospitalFerritin [Mass/volume] in Serum or PlasmaOrdered By: Rufina Rubio on 82-41-6410Mgcvgfjz [Mass/Vol]58.3 ng/mL11.0-306.8[facility] HospitalFolate [Mass/volume] in Serum or PlasmaOrdered By: Rufina Rubio on 60-81-9289Tjotqt [Mass/Vol]5.7 ng/mL >5.9[facility] Doctors HospitalComment on above:Folate reference range: >5.9 ng/mlThe WHO technical consultation on folate and vitamin z86zyyzfpiuvnwu has determined that folate concentrations lessthan 4 ng/ml are considered deficient.Globulin Calc (S) [Mass/Vol]Ordered By: Rufina Rubio on 83-45-4929Mlnagwpb (S) [Mass/Vol]2.1 g/dLOhiohealth Doctors Hospital Glucose [Mass/volume] in Serum or PlasmaOrdered By: Rufina Rubio on 73-94-3142Igtkbua [Mass/Vol]94 mg/yB56-944LytccdxojOhiohealth Doctors Hospital Comment on above:ADA recommended reference rangeRandom Glucose Reference Range is dependent on time and content of last meal. Glucose of more than 200 mg/dL in a nonstressed, ambulatory subject supports the diagnosisof Diabetes Mellitus. Hematocrit Auto (Bld) [Volume fraction]Ordered By: Rufina Rubio on 75-62-9040Npkugprfhe (Bld) [Volume fraction]39.9 %34.0-46.4FAultman HospitalHemoglobin [Mass/volume] in BloodOrdered By: Rufina Rubio on 96-51-0768Udpbeuobln (Bld) [Mass/Vol]13.3 g/dL11.8-15.4FAultman HospitalIron [Mass/volume] in Serum or PlasmaOrdered By: Rufina Rubio on 40-31-2742Elrp [Mass/Vol]68 ug/cG70-038VqfeekqyiOhiohealth Doctors HospitalIron binding capacity [Mass/volume] in Serum or PlasmaOrdered By: Rufina Rubio on 02-60-0618Rdwm binding capacity [Mass/Vol]305 ug/eJ026-996 [facility] HospitalIron saturation [Mass Fraction] in Serum or PlasmaOrdered By: Rufina Rubio on 87-33-8670Vrvf saturation [Mass fraction]22.3 %20-50[facility] HospitalLeukocytes [#/volume] corrected for nucleated erythrocytes in Blood by Automated counOrdered By: Rufina Rubio on 97-75-3153SHJ corrected for nucl RBC Auto (Bld) [#/Vol] 9.6 10*3/uL3.8-11.6FAultman HospitalLymphocytes Auto (Bld) [#/Vol]Ordered By: Rufina Rubio on 69-98-2096Lrpeidwplsa (Bld) [#/Vol]2.4 10*3/uL1.00-4.8[facility] HospitalLymphocytes/100 WBC Auto (Bld) Ordered By: Rufina Rubio on 93-12-5777Uhoiowzatma/100 WBC (Bld)25.6 %. [facility] HealthH Auto (RBC) [Entitic mass]Ordered By: Rufina Rubio on 92-45-8581OJZ (RBC) [Entitic mass]30.3 pg24.7-34.3 [facility] HospitalMCHC Auto (RBC) [Mass/Vol]Ordered By: Rufina Rubio on 32-40-6055HWHP (RBC) [Mass/Vol]33.3 g/dL32.0-35.0[facility] HospitalMCV Auto (RBC) [Entitic vol]Ordered By: Rufina Rubio on 70-35-2642JHL (RBC) [Entitic vol]91.1 zT92-516ZdowpsisvOhiohealth Doctors HospitalMonocytes Auto (Bld) [#/Vol]Ordered By: Rufina Rubio on 66-36-7208Zazwyuaca (Bld) [#/Vol]0.7 10*3/uL0.0-0.8[facility] HospitalMonocytes/100 WBC Auto (Bld)Ordered By: Rufina Rubio on 03-19-2023 Monocytes/100 WBC (Bld)7.1 %.[facility] HospitalNeutrophils Auto (Bld) [#/Vol]Ordered By: Rufina Rubio on 18-56-7407Rjgbpaagbsm (Bld) [#/Vol]6.2 10*3/uL1.8-7.7FAultman HospitalNeutrophils/100 WBC Auto (Bld)Ordered By: Rufina Rubio on 96-75-5268Uacavhdypoi/100 WBC (Bld) 65.4 %.[facility] HospitalNo Panel InformationOrdered By: Rufina Rubio on 90-48-3853Lnfeqyvxx GFR (CKD-EPI)> 60.0 mL/MinOhiohealth Doctors HospitalPharmacy Creatinine Clearance (ChemN/[facility] HospitalNucleated erythrocytes [Presence] in Blood by Automated countOrdered By: Rufina Rubio on 25-69-5061Bwxydazyg RBC Auto Ql (Bld)0.2 /100{WBC}0-0.5 [facility] HospitalPlatelet mean volume Auto (Bld) [Entitic vol] Ordered By: Rufina Rubio on 56-98-4788Iymaopud mean volume (Bld) [Entitic vol]10.4 fL6.3-10.7FAultman HospitalPlatelets Auto (Bld) [#/Vol]Ordered By: Rufina Rubio on 95-57-0446Vvbjycgaj (Bld) [#/Vol]179 10*3/iY347-337LrfjnhscrOhiohealth Doctors HospitalPotassium [Moles/volume] in Serum or PlasmaOrdered By: Rufina Rubio on 96-96-8938Mcnybcedd [Moles/Vol]4.6 mmol/L3.5-5.1FAultman HospitalProtein [Mass/volume] in Serum or PlasmaOrdered By: Rufina Rubio on 08-90-6730Zioobnx [Mass/Vol]6.4 g/dL 6.4-8.9[facility] HospitalRBC Auto (Bld) [#/Vol]Ordered By: Rufina Ruibo on 21-86-7753UIV (Bld) [#/Vol]4.38 10*6/uL3.60-5.00[facility] Centererum or plasma albumin/globulin mass ratioOrdered By: Rufina Rubio on 56-86-7189Zggkdcs/Globulin [Mass ratio]2.0 {ratio} [facility] Centererum or plasma anion gap determinationOrdered By: Rufina Rubio on 49-60-6902Lxors gap [Moles/Vol]6.2 mmol/L6.0-15.0 [facility] Centererum or plasma high density lipoprotein (HDL) cholesterol measurementOrdered By: Rufina Rubio on 36-99-0080Aodrquebhdl in HDL [Mass/Vol]60 mg/pF57-21PuuiweyjvOhiohealth Doctors HospitalComment on above: HDL CHOL ATP-III CLASSIFICATION Cardiovascular RiskHDL > or equal to 60 mg/dL LOWHDL < 40 mg/dL HIGHSerum or plasma total cholesterol/high density lipoprotein (HDL) cholesterol mass ratOrdered By: Rufina Rubio on 03-19-2023 Cholesterol.total/Cholesterol in HDL [Mass ratio]2.7 {ratio}<5.0[facility] Centerodium [Moles/volume] in Serum or PlasmaOrdered By: Rufina Rubio on 66-09-7564Dfahwj [Moles/Vol]139 mmol/A122-747NrqeshhloOhiohealth Doctors HospitalThyrotropin [Units/volume] in Serum or PlasmaOrdered By: Rufina Rubio on 09-35-9021KIY Qn1.95 m[IU]/L0.45-5.33[facility] HospitalThyroxine (T4) free [Mass/volume] in Serum or PlasmaOrdered By: Rufina Rubio on 85-37-9581Atcf T4 [Mass/Vol]0.70 ng/dL0.61-1.12[facility] HospitalTransferrin [Mass/volume] in Serum or PlasmaOrdered By: Rufina Rubio on 63-05-2698Lyqhkallzsf [Mass/Vol]218 mg/iV341-978HpzvannapOhiohealth Doctors HospitalTriglyceride [Mass/volume] in Serum or PlasmaOrdered By: Rufina Rubio on 37-64-9815Cxltuirqntaj [Mass/Vol]99 mg/dL0-149Ohio[facility] Doctors HospitalComment on above:TRIG ATP III CLASSIFICATIONTRIG less than 150 mg/dL NormalTRIG 150-199 mg/dL Borderline highTRIG 200-500 mg/dL High TRIG greater than 500 mg/dL Very highStandard traceable to the Center for Disease Conrtrol and Prevention (CDC) test method.Urea nitrogen [Mass/volume] in Serum or PlasmaOrdered By: Rufina Rubio on 61-69-8540Fexf nitrogen [Mass/Vol]7 mg/dL7-25[facility] HospitalVitamin B12 ser/plas Ordered By: Rufina Rubio on 70-50-3706Olkgqqurc (Vitamin B12) [Mass/Vol] 641 pg/bH252-771BkxpeulboOhiohealth Doctors HospitalWBC Auto (Bld) [#/Vol]Ordered By: Rufina Rubio on 81-53-5790PDP (Bld) [#/Vol]9.6 10*3/uL3.8-11.6 [facility] HospitalVitamin B12 ser/plasOrdered By: Rufina Rubio on 99-32-9409Ujkdoncav (Vitamin B12) [Mass/Vol]363 pg/oV478-982 [facility] HospitalVitamin B12 ser/plasOrdered By: Rufina Rubio on 61-40-7249Qolxsbada (Vitamin B12) [Mass/Vol]548 pg/mY034-659 [facility] HospitalUrine culture routineOrdered By: Rufina Rubio on 44-90-1657Ovorlhwx identified Cx Nom (U)Escherichia coliOhiohealth Doctors HospitalBasophils Auto (Bld) [#/Vol]Ordered By: Salvador Maier on 83-04-8234Sxxaebwsi (Bld) [#/Vol]0.1 10*3/uL0.0-0.2FAultman HospitalBasophils/100 WBC Auto (Bld)Ordered By: Salvador Maier on 07-22-2022 Basophils/100 WBC (Bld)1.0 %.[facility] Doctors HospitalBilirubin Test strip Ql (U)Ordered By: Salvador Maier on 22-40-4826Aaiqktmdm Ql (U)Negative NegativeOhiohealth Doctors HospitalBody fluid albumin measurement (mass/volume)Ordered By: Salvador Maier on 15-69-0802Aeqffgy (Body fld) [Mass/Vol]3.9 g/dL3.2-5.5FAultman HospitalColor Auto (U)Ordered By: Salvador Maier on 44-62-0155Nvjqy (U)YellowYellowOhiohealth Doctors HospitalCreatinine and Glomerular filtration rate.predicted panel (S/P/Bld)Ordered By: Salvador Maier on 14-23-2992Psjvfwjsbj [Mass/Vol]0.68 mg/dL0.44-1.03 [facility] HospitalEosinophils Auto (Bld) [#/Vol]Ordered By: Salvador Maier on 05-78-4213Nbukmvwktbr (Bld) [#/Vol]0.4 10*3/uL0.0-0.45[facility] HospitalEosinophils/100 WBC Auto (Bld)Ordered By: Salvador Maier on 86-24-0451Acsafzwwitc/100 WBC (Bld)4.1 %.[facility] Erythrocyte distribution width Auto (RBC) [Ratio]Ordered By: Salvador Maier on 23-51-1672Krmpjfonzzl distribution width (RBC) [Ratio]14.7 %11.9-15.3FAultman HospitalEstimated glomerular filtration rate (GFR) non- AmericanOrdered By: Salvador Maier on 19-49-2175UVZ/1.73 sq M.predicted among non-blacks MDRD (S/P/Bld) [Vol rate/Area]> 60 mL/MinOhiohealth Doctors HospitalGlobulin Calc (S) [Mass/Vol]Ordered By: Salvador Maier on 07-22-2022 Globulin (S) [Mass/Vol]2.5 g/dLOhiohealth Doctors HospitalHCG ( test) IA.rapid Ql (U)Ordered By: Salvador Maier on 11-25-0579TZT ( test) Ql (U)NegativeOhiohealth Doctors HospitalHematocrit Auto (Bld) [Volume fraction]Ordered By: Salvador Maier on 62-31-9361Ytpdxnllto (Bld) [Volume fraction]40.9 %34.0-46.4FAultman HospitalHemoglobin [Mass/volume] in BloodOrdered By: Salvador Maier on 05-18-6430Dmyrbouvii (Bld) [Mass/Vol]13.3 g/dL11.8-15.4FAultman HospitalKetones Auto test strip (U) [Mass/Vol]Ordered By: Salvador Maier on 11-37-1999Oqxefod (U) [Mass/Vol]NegativeNegativeOhiohealth Doctors HospitalLaboratory - Chemistry and Chemistry - challengeOrdered By: Salvador Maier on 01-19-6285Xlwzzx [Catalytic activity/Vol]70.0 U/M39-53HiandycfaOhiohealth Doctors Hospital Leukocytes [#/volume] corrected for nucleated erythrocytes in Blood by Automated counOrdered By: Salvador Maier on 59-83-6314DBV corrected for nucl RBC Auto (Bld) [#/Vol]8.8 10*3/uL3.8-11.6FAultman HospitalLymphocytes Auto (Bld) [#/Vol]Ordered By: Salvador Maier on 43-32-0090Opmqjgozyxv (Bld) [#/Vol]3.1 10*3/uL1.00-4.8[facility] HospitalLymphocytes/100 WBC Auto (Bld)Ordered By: Salvador Maier on 15-54-1451Gzflpbmogak/100 WBC (Bld)35.0 % .[facility]H Auto (RBC) [Entitic mass]Ordered By: Salvador Maier on 29-28-7133XPM (RBC) [Entitic mass]30.2 pg24.7-34.3FAultman HospitalMCHC Auto (RBC) [Mass/Vol]Ordered By: Salvador Maier on 79-98-4784QWSQ (RBC) [Mass/Vol]32.6 g/dL32.0-35.0[facility] HospitalMCV Auto (RBC) [Entitic vol]Ordered By: Salvador Maier on 18-19-6706WMC (RBC) [Entitic vol]92.6 yB94-179FrmpjzcmjOhiohealth Doctors HospitalMonocyte distribution width [Entitic volume] in Blood by AutomatedOrdered By: Salvador Maier on 67-90-1118Oxgbefix distribution width Auto (Bld) [Entitic vol]20.62 % 0.00-20.00[facility] HospitalComment on above:For adults in ED, MDW > 20.0 may be associated with a higher risk of sepsis during the first 12 h rs of hospital admissionMonocytes Auto (Bld) [#/Vol]Ordered By: Salvador Maier on 89-66-6335Jatiufrls (Bld) [#/Vol]0.6 10*3/uL0.0-0.8[facility] HospitalMonocytes/100 WBC Auto (Bld)Ordered By: Salvador Maier on 07-22-2022 Monocytes/100 WBC (Bld)7.1 %.[facility] Doctors HospitalNeutrophils Auto (Bld) [#/Vol]Ordered By: Salvador Maier on 95-17-0183Wucqhwlrvxj (Bld) [#/Vol]4.6 10*3/uL1.8-7.7FAultman HospitalNeutrophils/100 WBC Auto (Bld) Ordered By: Salvador Maier on 26-82-9973Naneilezjgo/100 WBC (Bld)52.8 %.[facility] Doctors HospitalNitrite Test strip Ql (U)Ordered By: Salvador Maier on 44-75-6822Yzimflo Ql (U)NegativeNegativeOhiohealth Doctors HospitalNo Panel InformationOrdered By: Salvador Maier on 14-49-0946Wvagybuyi GFR ()> 60 mL/MinOhiohealth Doctors HospitalComment on above:GFR estimated reference range: According to KDOQI guidelines, <60 ml/min/1.73m2 is sufficient todiagnose a patient with chronic kidney disease.Pharmacy Creatinine Clearance (Chem90.47[facility] Doctors HospitalNucleated erythrocytes [Presence] in Blood by Automated countOrdered By: Salvador Maier on 07-22-2022 Nucleated RBC Auto Ql (Bld)0.2 /100{WBC}0-0.5[facility] Platelet mean volume Auto (Bld) [Entitic vol]Ordered By: Salvador Maier on 46-26-7030Ikxchfbi mean volume (Bld) [Entitic vol]9.1 fL6.3-10.7FAultman HospitalPlatelets Auto (Bld) [#/Vol]Ordered By: Salvador Maier on 07-21-3369Mydfsuafy (Bld) [#/Vol]202 10*3/rX986-473ScbcfejndOhiohealth Doctors HospitalProtein Auto test strip (U) [Mass/Vol]Ordered By: Salvador Maier on 10-18-4593Inrptlq (U) [Mass/Vol]NegativeNegativeOhiohealth Doctors HospitalProtein [Mass/volume] in Serum or PlasmaOrdered By: Salvador Maier on 19-17-0465Atwtzzc [Mass/Vol]6.4 g/dL6.1-7.9[facility] HospitalRBC Auto (Bld) [#/Vol]Ordered By: Salvador Maier on 93-89-0251FFA (Bld) [#/Vol]4.42 10*6/uL3.60-5.00[facility] Centererum or plasma alanine aminotransferase measurement without P-5'-P (enzymatic activiOrdered By: Salvador Maier on 71-71-6777HIR No additional P-5'-P [Catalytic activity/Vol]12 U/L10-60 [facility] Centererum or plasma albumin/globulin mass ratio Ordered By: Salvador Maier on 60-76-4289Axoxncc/Globulin [Mass ratio]1.6 {ratio} [facility] Centererum or plasma alkaline phosphatase measurement (enzymatic activity/volume)Ordered By: Salvador Maier on 07-22-2022 ALP [Catalytic activity/Vol]109 U/E14-25XrglsirvoUniversity Hospitals Parma Medical Centererum or plasma anion gap determinationOrdered By: Salvador Maier on 95-88-3389Yyiew gap [Moles/Vol]13.2 mmol/L6.0-15.0[facility] Centererum or plasma aspartate aminotransferase measurement (enzymatic activity/volume)Ordered By: Salvador Maier on 10-06-2462RRK [Catalytic activity/Vol]16 U/X75-53HgcdkepytUniversity Hospitals Parma Medical Centererum or plasma calcium measurement (mass/volume)Ordered By: Salvador Maier on 65-24-7518Rcvzmrl [Mass/Vol]8.8 mg/dL8.2-10.2FBrecksville VA / Crille Hospitalerum or plasma chloride measurement (moles/volume) Ordered By: Salvador Maier on 92-60-0479Yimopljt [Moles/Vol]103 mmol/L95-114 [facility] Centererum or plasma glucose measurement (mass/volume)Ordered By: Salvador Maier on 12-98-4466Hptrtjs [Mass/Vol]102 mg/dL 70-100[facility] HospitalComment on above:ADA recommended reference rangeRandom Glucose Reference Range is dependent on time and content of last meal. Glucose of more than 200 mg/dL in a nonstressed, ambulatory subject supports the diagnosisof Diabetes Mellitus.Serum or plasma potassium measurement (moles/volume)Ordered By: Salvador Maier on 13-94-8885Yzvbcexkg [Moles/Vol]3.2 mmol/L3.5-5.1FBrecksville VA / Crille Hospitalerum or plasma sodium measurement (moles/volume)Ordered By: Salvador Maier on 45-43-7718Vhfpij [Moles/Vol]139 mmol/Q307-759XjvqhjdvdUniversity Hospitals Parma Medical Centererum or plasma total bilirubin measurement (mass/volume)Ordered By: Salvador Maier on 07-22-2022 Bilirubin [Mass/Vol]0.3 mg/dL0.3-1.2FBrecksville VA / Crille Hospitalerum or plasma total carbon dioxide measurement (moles/volume)Ordered By: Salvador Maier on 85-19-3358RS0 [Moles/Vol]26.0 mmol/L22.0-30.0[facility] Centererum or plasma urea nitrogen measurement (mass/volume)Ordered By: Salavdor Maier on 46-87-9823Hupr nitrogen [Mass/Vol]4 mg/dL9-23[facility] Centerpecific gravity Auto test strip (U) [Rel density]Ordered By: Salvador Maier on 47-91-8023Oqxwnwrn gravity (U) [Rel density]1.0041.001-1.030 [facility] HospitalUrine clarity by refractometry automatedOrdered By: Salvador Maier on 21-74-7306Bvzrnke Refractometry automated (U)ClearClear [facility] HospitalUrine glucose measurement by automated test strip (mass/volume)Ordered By: Salvador Maier on 50-12-5896Wdtaqyf Auto test strip (U) [Mass/Vol]Normal mg/dLNormSumma HealthUrine hemoglobin detection by automated test stripOrdered By: Salvador Maier on 73-49-8572Emsgxphghh Auto test strip Ql (U)NegativeNegativeOhiohealth Doctors HospitalUrine leukocyte esterase detection by automated test stripOrdered By: Salvador Maier on 61-31-7993Vnozfvlrk esterase Auto test strip Ql (U)Negative NegativeOhiohealth Doctors HospitalUrobilinogen Auto test strip (U) [Mass/Vol]Ordered By: Salvador Maier on 38-99-4931Eoynircyhhhe (U) [Mass/Vol] Normal mg/dLNormSumma HealthWBC Auto (Bld) [#/Vol]Ordered By: Salvador Maier on 89-15-7856OZJ (Bld) [#/Vol]8.8 10*3/uL3.8-11.6FAultman HospitalpH Auto test strip (U)Ordered By: Salvador Maier on 18-64-7190mQ (U)7.0 [pH]5.0-9.0[facility] Doctors HospitalCBC AUTO DIFFon 70-28-7800UHGT #0.0 103/ulNormal0.0-0.1The [facility] HospitalComment on above: Performed By: #### CBC ####[facility] [address] [address]Dr.Michaelalan ChangBasophils/100 WBC (Bld)0.5 %Normal 0.2-2.0The [facility] HospitalComment on above:Performed By: #### CBC ####[facility] [address] [place], [place] [address]Dr.Yilan ChangEO # 0.5 103/ulNormal0.0-0.7The [facility] HospitalComment on above:Performed By: #### CBC ####[facility] [address] [place], [place] [address]Dr. Ruthie ChangEosinophils/100 WBC (Bld)5.8 %Normal0.9-7.0[facility] Comment on above:Performed By: #### CBC ####[facility] [address] [place], [place] [address]Dr.Ruthie ChangErythrocyte distribution width (RBC) [Ratio]14.0 %Layxgg20.0-15.0The [facility] HospitalComment on above: Performed By: #### CBC ####[facility] [address] [place], [place] [address]Dr.Ruthie ChangHematocrit (Bld) [Volume fraction]38.9 % Gfpddc40.0-48.0The [facility] HospitalComment on above:Performed By: #### CBC ####[facility] [address] [place], [place] [address]Dr. Ruthie ChangHemoglobin (Bld) [Mass/Vol]13.0 g/tRKyfglo88.0-16.0The [facility] HospitalComment on above:Performed By: #### CBC ####[facility] [address] [place], [place] [address]Dr.Ruthie ChangIG #0.02 10e3/ulNormal0.00-0.03The [facility] HospitalComment on above:Performed By: #### CBC ####[facility] [address] [place], [place] [address]Dr. Ruthie ChangIG %0.3 %Normal0.0-0.5The [facility] HospitalComment on above:Performed By: #### CBC ####[facility] [address] [place], [place] [address]Dr.Michaelalan ChangLYMPH #2.8 103/ulNormal1.2-3.8[facility] Comment on above:Performed By: #### CBC ####[facility] [address]ms[address] [place], [place] [address]Dr.Ruthie PanLymphocytes/100 WBC (Bld)36.0 %Wdcmff89.5-60.0The [facility] HospitalComment on above:Performed By: #### CBC ####[facility] [address]ubw[address] [place], [place] [address]Dr. Ruthie ChangMANUAL DIFF REQNONormalThe [facility] HospitalComment on above: Performed By: #### CBC ####[facility] [address] [place], [place] [address]Dr.Ruthie PanH (RBC) [Entitic mass]30.6 pgNormal 26.7-34.0[facility] HospitalComment on above:Performed By: #### CBC ####[facility] [id number] [address] [place], [place] [address]Dr. Ruthie PanHC (RBC) [Mass/Vol]33.4 g/eAFszttr32.9-35.2[facility] Comment on above:Performed By: #### CBC ####[facility] [address] [place], [place] [address]Dr.Ruthie PanV (RBC) [Entitic vol]91.5 fL Qpyhqb02.0-99.0The [facility] HospitalComment on above:Performed By: #### CBC ####[facility] [address] [place], [place] [address]Dr. Ruthie PanMONO #0.6 103/ulNormal0.3-0.8The [facility] HospitalComment on above: Performed By: #### CBC ####[facility] Zmmnwaak[address] [place], [place] [address]Dr.Ruthie ChangMonocytes/100 WBC (Bld)7.9 %Normal 1.7-12.0The [facility] HospitalComment on above:Performed By: #### CBC ####[facility] [address] [place], [place] [address]Dr. Michaelajean-claude ChangNEUT #3.8 103/ulNormal1.4-6.5The [facility] HospitalComment on above: Performed By: #### CBC ####[facility] [address] [place] [address]Dr.Ruthie ChangNeutrophils/100 WBC (Bld)49.5 %Normal 43.0-75.0The [facility] HospitalComment on above:Performed By: #### CBC ####[facility] [address] [place] [address]Dr. Ruthie ChangPlatelet mean volume (Bld) [Entitic vol]10.6 fLNormal9.5-13.5The [facility] HospitalComment on above:Performed By: #### CBC ####[facility] Dyas[address] [place], [place] [address]Dr.Ruthie ZpeatGPL733 103/ul Rsuhyj572-666Nvb [facility] HospitalComment on above:Performed By: #### CBC ####[facility] [address] [place] [address]Dr. Ruthie ChangRBC4.25 106/ulNormal4.20-5.40The [facility] HospitalComment on above: Performed By: #### CBC ####[facility] [address] [place], [place] [address]Dr.Ruthie ChangWBC7.8 103/ulNormal4.0-11.0The [facility] HospitalComment on above:Performed By: #### CBC ####[facility] [address] [place], [place] [address]Dr.Ruthie ChangER URINE PROFILEon 08-32-4632Abwjynxmt Ql (U)NegativeNormalNEGATIVEThe [facility] Comment on above:Performed By: #### ABILIO OMALLEY #### [facility] [address] [place] [address] Dr. Ruthie Cantuarity (U)CLEARNormalCLEARThe [facility] HospitalComment on above: Performed By: #### ABILIO OMALLEY #### [facility] [address] [address] [address] Ruthie Garcia (U)LT. YELLOWNormalYELLOWTogus Va Medical CenterComment on above:Performed By: #### LYSSA ERUR #### [facility] [address] [place] [address] Dr. Ruthie Sams micrscopic examination will be performed if indicated. NormalThe [facility]ows HospitalComment on above:Performed By: #### LYSSA, ERUR #### [facility] [address] [address] [address] Ruthie PanGlucose Ql (U)NegativeNormalNEGATIVETogus Va Medical CenterComment on above:Performed By: #### LYSSA ERUR #### [facility] [address] [place] [address] Dr. Ruthie PanHemoglobin Ql (U)TRACE-LYSEDAbnormalNEGRegency Hospital Cleveland West on above:Performed By: #### LYSSA ERUR #### [facility] [address] [place] [address] Dr. Ruthie Maciasones Ql (U)NegativeNormalNEGATIVETogus Va Medical CenterComment on above:Performed By: #### LYSSA ERUR #### [facility] [address] [place] [address] Dr. Ruthie PanLEUKOCYTESNegativeNormalNEGATIVETogus Va Medical CenterComment on above:Performed By: #### LYSSA ERUR #### [facility] [address] [place] [address] Dr. Ruthie De La Torretrite Ql (U)NegativeNormalNEGATIVETogus Va Medical CenterComment on above:Performed By: #### LYSSA ERUR #### [facility] [address] [place] [address] Dr. Ruthie PanpH (U)6.5 [pH]Normal5-9Togus Va Medical CenterComment on above: Performed By: #### LYSSA ERUR #### [facility] [address] [place] [address] Dr. Yilan ChangSPEC GRAVITY<=1.930Lfajpipz3.005-<=1.025[facility] Comment on above:Performed By: #### JOSE OMALLEYR #### [facility] [address] [place] [address] Dr. Ruthie Case PROTEINNegativeNormalNEGATIVE/ TRACEThe [facility] Comment on above:Performed By: #### LYSSA ERUR #### [facility] [address] [address] [address] Ruthie Martin MICRO INDINDICATEDNoalThe [facility] HospitalComment on above: Performed By: #### JOSE OMALLEYR #### [facility] [address] [place] [address] Dr. Ruthie Silvabilino Qn (U)0.2 {Harjeet'U}/dLNormal0.2 - 1.0The [facility] HospitalComment on above:Performed By: #### JOSE OMALLEYR #### [facility] [address] [place] [address] Dr. Ruthie PanLACTATE/LACTIC ACIDon 25-22-3903Bhjtpvf [Moles/Vol]0.7 mmol/L Normal0.4-1.9The [facility] HospitalComment on above:Performed By: #### LACT ####[facility] [address] [place], [place] [address]DrGideon PanLIPASEon 86-18-6526Ybiomi [Catalytic activity/Vol]97.0 U/LNormal 73.0-393.0The [facility] HospitalComment on above:Performed By: #### LIPA, CMP ####[facility] Xyidgs[address] [place], [place] [address]Dr. Ruthie PanPROF 14(COMP METB)on 04-62-5788Qdxsdxy [Mass/Vol]3.6 g/dLNormal 3.4-5.0The [facility] HospitalComment on above:Performed By: #### LIPA, CMP ####[facility] Tpouxxuig[address] [place], [place] [address]Dr. Yilan ChangAlbumin/Globulin [Mass ratio]1.3 {ratio}NormalTogus Va Medical Center Comment on above:Performed By: #### LIPA, CMP ####[facility] [address] [address]Dr. Yilan ChangALP [Catalytic activity/Vol]129 U/LCritically hgvv55-807Ycq [facility] HospitalComment on above: Performed By: #### LIPA, CMP ####[facility] [address]frcm[address] [place], [place] [address]Dr. Yilan ChangALT [Catalytic activity/Vol]13 U/L Critically kcz06-53Hso [facility] HospitalComment on above:Performed By: #### LIPA, CMP ####[facility] [address]ochpuf[address] [place], [place] [address]Dr. Yilan ChangAnion gap [Moles/Vol]10.0 mmol/LNormalTogus Va Medical Center Comment on above:Performed By: #### LIPA, CMP ####[facility] S[address]quol[address] [place], [place] [address]Dr. Yilan ChangAST [Catalytic activity/Vol]13 U/LCritically bnv53-75Yrg [facility] HospitalComment on above: Performed By: #### LIPA, CMP ####[facility] [address]fiazbrbwq[address] [place], [place] [address]Dr. Yilan ChangBilirubin [Mass/Vol]0.2 mg/dLNormal 0.2-1.0The [facility] HospitalComment on above:Performed By: #### LIPA, CMP ####[facility] Pyhqiayqyr[address] [place], [place] [address]Dr. Yilan ChangCalcium [Mass/Vol]8.5 mg/dLNormal8.5-10.1The [facility] HospitalComment on above:Performed By: #### LIPA, CMP ####[facility] Bjc[address]op[address] [place], [place] [address]Dr. Yilan ChangChloride [Moles/Vol]104 mmol/L Fafcej97-218Pge [facility] HospitalComment on above:Performed By: #### LIPA, CMP ####[facility] [address] [address]Dr. Yilan ChangCO2 [Moles/Vol]29.6 mmol/IComtyn57.0-32.0[facility] on above:Performed By: #### LIPA, CMP ####[facility] Athmsrwqcm[address] [place], [place] [address]Dr. Yilan ChangCreatinine [Mass/Vol]0.67 mg/dL Normal0.55-1.02The [facility] HospitalComtrinity health [facility] on above:Performed By: #### LIPA, CMP ####[facility] [address]slccx[address] [place], [place] [address]Dr. Yilan ChangEGFR-AF MOROCCAN>60Normal>=60[facility] on above: Performed By: #### LIPA, CMP ####[facility] Icwsoipneg[address] [place], [place] [address]Dr. Yilan ChangEGFR-NON AF MOROCCAN>60Normal>=60[facility] on above:Performed By: #### LIPA, CMP ####[facility] Ngetdwhiak[address] [place], [place] [address]Dr. Yilan Pan Globulin (S) [Mass/Vol]2.8 g/dLNormalThGood Samaritan HospitalComtrinity health [facility] hospital on above: Performed By: #### LIPA, CMP ####[facility] Qyvqvnhxcz[address] [place], [place] [address]Dr. Yilan ChangGlucose [Mass/Vol]106 mg/sKJadfij70-445 The [facility] HospitalComtrinity health [facility] on above:Performed By: #### LIPA, CMP ####[facility] W[address]iswfeyp[address] [place], [place] [address]Dr. Yilan Pan Potassium [Moles/Vol]3.6 mmol/LNormal3.5-5.1[facility] on above:Performed By: #### LIPA, CMP ####[facility] [address]onggymik[address] [place], [place] [address]Dr. Yilan ChangProtein [Mass/Vol]6.4 g/dLNormal 6.4-8.2Togus Va Medical CenterComment on above:Performed By: #### GERTRUDE, CMP ####[facility] [address] [address]Dr. Ruthie PanSodium [Moles/Vol]140 mmol/PUrzwuu166-585Jik [facility] HospitalComment on above:Performed By: #### HOLGERA, CMP ####[facility] [address] [address]Dr. Ruthie ChangUrea nitrogen [Mass/Vol]4.0 mg/dL Critically low7.0-18.0The [facility] HospitalComment on above:Performed By: #### GERTRUDE, CMP ####[facility] [address] [address]Dr. Ruthie ChangUrea nitrogen/Creatinine [Mass ratio]6.0 mg/mgNoNewark HospitalComment on above:Performed By: #### GERTRUDE, CMP ####[facility] [address] [address]Dr. Ruthie Medina MICROSCOPIC ONLYon 89-88-2120CQMTWLLFZPZE SEENNormalNONE SEENThe [facility] HospitalComment on above:Performed By: #### JOSE OMALLEYR #### [facility] [address] [address] [address] Ruthie Guillen identified Cx Nom (U)NOT INDICATEDNoNewark HospitalComtrinity health [facility] hospital on above:Performed By: #### LYSSA ERUR #### [facility] [address] [address] [address] Ruthie Mcginnis SEENNormalNONE SEENTogus Va Medical CenterComment on above:Performed By: #### LYSSA ERUR #### [facility] [address] [address] [address] Ruthie Martinez LM Nom (Urine sed)NONE SEENNormalNONE SEENTogus Va Medical CenterComment on above:Performed By: #### LYSSA ERUR #### [facility] [address] [address] [address] Hendricks ChangEpithelial cells LM Ql (Urine sed)FEWAbnormalNONE SEEN /RAREThe [facility] HospitalComment on above:Performed By: #### GEMMARO, ERUR #### [facility] [address] [address] [address] Ruthie Rolon SEENNormalNONE SEENThe [facility] HospitalComtrinity health [facility] hospital on above:Performed By: #### LYSSA, ERUR #### [facility] [address] [address] [address] Ruthie PanWvfhcGSI5-7Squuax3-4Yjc [facility] HospitalComment on above:Performed By: #### LYSSA, ERUR #### [facility] [address] [address] [address] Ruthie PanWBC0-2AbnormalNONE SEENThe [facility] HospitalComment on above: Performed By: #### LYSSA, ERUR #### [facility] [address] [place] [address] Dr. Ruthie PanUS SINGLE QUAD RT UPPERon [id number] SINGLE QUAD RT UPPEREXAM: US SINGLE QUAD RT UPPER HISTORY: Epigastric [...] Electronically authenticated by: KAE VILLALPANDO Date: 2022-07-21 20:21[facility] CenterAlbumin [Mass/volume] in Serum or PlasmaOrdered By: Rufina Rubio on 36-61-6886Adpujvn [Mass/Vol]3.8 g/dL3.2-5.5FAultman HospitalBasophils Auto (Bld) [#/Vol]Ordered By: Rufina Rubio on 62-10-3661Bpodokdva (Bld) [#/Vol]0.1 10*3/uL0.0-0.2FAultman HospitalBasophils/100 WBC Auto (Bld)Ordered By: Rufina Rubio on 07-20-2022 Basophils/100 WBC (Bld)1.2 %.[facility] HospitalCholesterol [Mass/volume] in Serum or PlasmaOrdered By: Rufina Rubio on 07-20-2022 Cholesterol [Mass/Vol]183 mg/aV026-901AcqwpsvxeOhiohealth Doctors HospitalComment on above:Chol less than 200 mg/dl low riskChol 201-239 mg/dl borderline riskChol 240 mg/dl and greater high riskCholesterol in LDL Calc [Mass/Vol]Ordered By: Rufina Rubio on 12-69-1207Zhyftgwcxdv in LDL [Mass/Vol]104 mg/dL0-100 [facility] HospitalComment on above:LDL ATP III CLASSIFICATIONLDL less than 100 mg/dL OptimalLDL 100-129 mg/dL Near or above fhmtybfTGQ723-380 mg/dL Borderline highLDL 160-189 mg/dL HighLDL greater than 189 mg/dL Very high Cholesterol in VLDL Calc [Mass/Vol]Ordered By: Rufina Rubio on 07-20-2022 Cholesterol in VLDL [Mass/Vol]26 mg/dLOhiohealth Doctors Hospital Creatinine and Glomerular filtration rate.predicted panel (S/P/Bld)Ordered By: Rufina Rubio on 28-73-4697Mqfibffqfj [Mass/Vol]0.64 mg/dL0.44-1.03 [facility] HospitalEosinophils Auto (Bld) [#/Vol]Ordered By: Rufina Rubio on 76-45-5380Eexeqlbuqhr (Bld) [#/Vol]0.3 10*3/uL0.0-0.45 [facility] HospitalEosinophils/100 WBC Auto (Bld)Ordered By: Rufina Rubio on 34-48-4343Rmuigjzdpmv/100 WBC (Bld)3.0 %.[facility] Doctors HospitalErythrocyte distribution width Auto (RBC) [Ratio]Ordered By: Rufina Rubio on 42-08-3875Htwmyejesre distribution width (RBC) [Ratio]14.5 %11.9-15.3FAultman HospitalEstimated glomerular filtration rate (GFR) non- AmericanOrdered By: Rufina Rubio on 36-12-3475XHY/1.73 sq M.predicted among non-blacks MDRD (S/P/Bld) [Vol rate/Area]> 60 mL/MinOhiohealth Doctors HospitalGlobulin Calc (S) [Mass/Vol]Ordered By: Rufina Rubio on 12-92-2453Ugszljwq (S) [Mass/Vol] 2.4 g/dLOhiohealth Doctors HospitalHematocrit Auto (Bld) [Volume fraction] Ordered By: Rufina Rubio on 62-16-5247Bqpdvhcrlh (Bld) [Volume fraction] 40.8 %34.0-46.4FAultman HospitalHemoglobin [Mass/volume] in BloodOrdered By: Rufina Rubio on 49-55-5062Kjpntdokus (Bld) [Mass/Vol] 13.4 g/dL11.8-15.4FAultman HospitalLaboratory - Chemistry and Chemistry - challengeOrdered By: Rufina Rubio on 51-39-3418Dnjoayxtb (Vitamin B12) [Mass/Vol]137 pg/bO797-562MaufheqmcOhiohealth Doctors HospitalLipase [Catalytic activity/Vol]53.0 U/I83-89UjrkdgbmeOhiohealth Doctors HospitalLeukocytes [#/volume] corrected for nucleated erythrocytes in Blood by Automated coun Ordered By: Rufina Rubio on 12-72-0793NPL corrected for nucl RBC Auto (Bld) [#/Vol]8.5 10*3/uL3.8-11.6FAultman HospitalLymphocytes Auto (Bld) [#/Vol]Ordered By: Rufina Rubio on 83-07-2781Bwtousglght (Bld) [#/Vol]3.1 10*3/uL1.00-4.8[facility] Doctors HospitalLymphocytes/100 WBC Auto (Bld)Ordered By: Rufina Rubio on 98-65-6617Jqsiaretupz/100 WBC (Bld) 36.6 %.[facility] Doctors HospitalMCH Auto (RBC) [Entitic mass]Ordered By: Rufina Rubio on 49-65-9138YSM (RBC) [Entitic mass]30.4 pg24.7-34.3 [facility] Doctors HospitalMCHC Auto (RBC) [Mass/Vol]Ordered By: Rufina Rubio on 94-86-9466LTER (RBC) [Mass/Vol]32.8 g/dL32.0-35.0[facility] Doctors HospitalMCV Auto (RBC) [Entitic vol]Ordered By: Rufina Rubio on 38-92-8400JYA (RBC) [Entitic vol]92.7 cY44-519IhnzryvezOhiohealth Doctors HospitalMonocytes Auto (Bld) [#/Vol]Ordered By: Rufina Rubio on 92-26-6515Tehxikvoc (Bld) [#/Vol]0.6 10*3/uL0.0-0.8[facility] Doctors HospitalMonocytes/100 WBC Auto (Bld)Ordered By: Rufina Rubio on 07-20-2022 Monocytes/100 WBC (Bld)7.0 %.[facility] Doctors HospitalNeutrophils Auto (Bld) [#/Vol]Ordered By: Rufina Rubio on 77-84-7946Xunddpsyngt (Bld) [#/Vol]4.4 10*3/uL1.8-7.7FAultman HospitalNeutrophils/100 WBC Auto (Bld)Ordered By: Rufina Rubio on 88-11-1295Eaetykcweas/100 WBC (Bld) 52.2 %.[facility] HospitalNo Panel InformationOrdered By: Rufina Rubio on 57-43-4538Oicahibeq GFR ()> 60 mL/MinOhiohealth Doctors HospitalComment on above:GFR estimated reference range: According to KDOQI guidelines, <60 ml/min/1.73m2 is sufficient todiagnose a patient with chronic kidney disease.Pharmacy Creatinine Clearance (ChemN/[facility] HospitalNucleated erythrocytes [Presence] in Blood by Automated count Ordered By: Rufina Rubio on 38-93-3189Vojsyfcut RBC Auto Ql (Bld)0.2 /100{WBC}0-0.5FAultman HospitalPlatelet mean volume Auto (Bld) [Entitic vol]Ordered By: Rufina Rubio on 35-99-9059Ctzzmzox mean volume (Bld) [Entitic vol]10.2 fL6.3-10.7FAultman HospitalPlatelets Auto (Bld) [#/Vol]Ordered By: Rufina Rubio on 41-72-9127Tsgambvje (Bld) [#/Vol]183 10*3/bU928-341HtgaxstgnOhiohealth Doctors HospitalProtein [Mass/volume] in Serum or PlasmaOrdered By: Rufina Rubio on 13-32-1188Hivqkav [Mass/Vol]6.2 g/dL6.1-7.9[facility] Doctors HospitalRBC Auto (Bld) [#/Vol] Ordered By: Rufina Rubio on 78-60-1623VRY (Bld) [#/Vol]4.40 10*6/uL 3.60-5.00[facility] Medical Centererum or plasma alanine aminotransferase measurement without P-5'-P (enzymatic activiOrdered By: Rufina Rubio on 01-47-4091DCB No additional P-5'-P [Catalytic activity/Vol]10 U/V85-95QvksoespcUniversity Hospitals Parma Medical Centererum or plasma albumin/globulin mass ratioOrdered By: Rufina Rubio on 07-20-2022 Albumin/Globulin [Mass ratio]1.6 {ratio}[facility] Centererum or plasma alkaline phosphatase measurement (enzymatic activity/volume)Ordered By: Rufina Rubio on 32-34-4964GBA [Catalytic activity/Vol]107 U/L32-92 [facility] Centererum or plasma amylase measurement (enzymatic activity/volume)Ordered By: Rufina Rubio on 31-04-6405Wlbpovu [Catalytic activity/Vol]129 U/D72-799JmiebmygsUniversity Hospitals Parma Medical Centererum or plasma anion gap determinationOrdered By: Rufina Rubio on 81-50-5561Etmit gap [Moles/Vol]9.5 mmol/L6.0-15.0[facility] Centererum or plasma aspartate aminotransferase measurement (enzymatic activity/volume)Ordered By: Rufina Rubio on 69-34-3910DDF [Catalytic activity/Vol]13 U/L10-42 [facility] Centererum or plasma calcium measurement (mass/volume)Ordered By: Rufina Rubio on 90-54-4592Qiqlgge [Mass/Vol]8.7 mg/dL8.2-10.2FBrecksville VA / Crille Hospitalerum or plasma chloride measurement (moles/volume)Ordered By: Rufina Rubio on 48-36-3279Givkgcbx [Moles/Vol]107 mmol/X30-728IisenkdarUniversity Hospitals Parma Medical Centererum or plasma glucose measurement (mass/volume)Ordered By: Rufina Rubio on 07-20-2022 Glucose [Mass/Vol]82 mg/tS64-814FgzogkdbgOhiohealth Doctors HospitalComment on above:ADA recommended reference rangeRandom Glucose Reference Range is dependent on time and content of last meal. Glucose of more than 200 mg/dL in a nonstressed, ambulatory subject supports the diagnosisof Diabetes Mellitus.Serum or plasma high density lipoprotein (HDL) cholesterol measurementOrdered By: Rufina Rubio on 91-76-0750Umvggretcws in HDL [Mass/Vol]53 mg/dL35-85 [facility] HospitalComment on above:HDL CHOL ATP-III CLASSIFICATION Cardiovascular RiskHDL > or equal to 60 mg/dL LOWHDL < 40 mg/dL HIGHSerum or plasma potassium measurement (moles/volume)Ordered By: Rufina Rubio on 51-95-4444Fzcalefnr [Moles/Vol]3.9 mmol/L3.5-5.1FBrecksville VA / Crille Hospitalerum or plasma sodium measurement (moles/volume)Ordered By: Rufina Rubio on 45-19-6170Mpmbnr [Moles/Vol]138 mmol/D051-139RczthzsmsUniversity Hospitals Parma Medical Centererum or plasma total bilirubin measurement (mass/volume) Ordered By: Rufina Rubio on 86-61-9617Qsrgpwnwu [Mass/Vol]0.3 mg/dL 0.3-1.2FBrecksville VA / Crille Hospitalerum or plasma total carbon dioxide measurement (moles/volume)Ordered By: Rufina Rubio on 71-56-1578ZC5 [Moles/Vol]25.4 mmol/L22.0-30.0[facility] Medical Centererum or plasma total cholesterol/high density lipoprotein (HDL) cholesterol mass ratOrdered By: Rufina Rubio on 38-97-0521Vogaltpflgw.total/Cholesterol in HDL [Mass ratio]3.5 {ratio}<5.0[facility] Centererum or plasma urea nitrogen measurement (mass/volume)Ordered By: Rufina Rubio on 07-20-2022 Urea nitrogen [Mass/Vol]5 mg/dL9-23Ohiohealth Doctors HospitalTSH DL <= 0.005 mIU/L QnOrdered By: Rufina Rubio on 95-75-3727GIR Qn4.78 m[IU]/L 0.45-5.33[facility] Doctors HospitalThyroxine (T4) free [Mass/volume] in Serum or PlasmaOrdered By: Rufina Rubio on 26-25-6424Xrwo T4 [Mass/Vol] 0.80 ng/dL0.61-1.12Ohio[facility] Doctors HospitalTriglyceride [Mass/volume] in Serum or PlasmaOrdered By: Rufina Rubio on 08-18-1137Ppgiheoklrrg [Mass/Vol]132 mg/dN58-755QxsgbheuaOhiohealth Doctors HospitalComment on above:TRIG ATP III CLASSIFICATIONTRIG less than 150 mg/dL NormalTRIG 150-199 mg/dL Borderline highTRIG 200-500 mg/dL High TRIG greater than 500 mg/dL Very highStandard traceable to the Center for Disease Conrtrol and Prevention (CDC) test method.Urine culture routineOrdered By: Rufina Rubio on 07-20-2022 Bacteria identified Cx Nom (U)Escherichia coliOhiohealth Doctors Hospital Bacteria identified Cx Nom (U)Escherichia [facility] WBC Auto (Bld) [#/Vol]Ordered By: Rufina Rubio on 40-26-3939EFK (Bld) [#/Vol]8.5 10*3/uL3.8-11.6FAultman HospitalCBC AUTO DIFFon 18-38-8175LPPV #0.0 103/ulNormal0.0-0.1The [facility] HospitalComment on above: Performed By: #### CBC #### [facility] [address] [place] [address] Dr. Ruthie PanBasophils/100 WBC (Bld)0.5 %Normal0.2-2.0The [facility] Comment on above:Performed By: #### CBC #### [facility] [address] [place] [address] Dr. Ruthie Elias #0.1 103/ulNormal0.0-0.7The [facility] HospitalComment on above: Performed By: #### CBC #### [facility] [address] [place] [address] Dr. Ruthie Postosinophils/100 WBC (Bld)1.6 %Normal0.9-7.0[facility] Comment on above:Performed By: #### CBC #### [facility] [address] [place] [address] Dr. Ruthie Postrythrocyte distribution width (RBC) [Ratio]13.2 %Tdoddz14.0-15.0 The [facility] HospitalComment on above:Performed By: #### CBC #### [facility] [address] [place] [address] Dr. Ruthie PanHematocrit (Bld) [Volume fraction]41.5 %Pvzsrk72.0-48.0The [facility] HospitalComment on above:Performed By: #### CBC #### [facility] [address] [place] [address] Dr. Ruthie PanHemoglobin (Bld) [Mass/Vol]13.9 g/lIYczluo71.0-16.0The [facility] HospitalComment on above:Performed By: #### CBC #### [facility] [address] [place] [address] Dr. Ruthie Sullivan #0.02 10e3/ulNormal0.00-0.03The [facility] HospitalComment on above:Performed By: #### CBC #### [facility] [address] [place] [address] Dr. Ruthie Sullivan %0.2 %Normal0.0-0.5The [facility] HospitalComment on above: Performed By: #### CBC #### [facility] [address] [place] [address] Dr. Ruthei Ford #2.5 103/ulNormal1.2-3.8The [facility] HospitalComment on above:Performed By: #### CBC #### [facility] [address] [place] [address] Dr. Ruthie Menahocytes/100 WBC (Bld)28.8 %Tizaxw56.5-60.0The [facility] HospitalComment on above:Performed By: #### CBC #### [facility] [address] [place] [address] Dr. Ruthie CedilloBUCYRUS COMM[facility] DIFF REQNONormalThe [facility] HospitalComment on above: Performed By: #### CBC #### [facility] [address] [place] [address] Dr. Ruthie Cespedes (RBC) [Entitic mass]30.3 jzDgbsfl25.7-34.0The [facility] HospitalComment on above:Performed By: #### CBC #### [facility] [address] [place] [address] Dr. Ruthie Foley (RBC) [Mass/Vol]33.5 g/oZKewyju87.9-35.2The [facility] HospitalComment on above:Performed By: #### CBC #### [facility] [address] [place] [address] Dr. Ruthie Foley (RBC) [Entitic vol]90.6 ySInixpn61.0-99.0The [facility] HospitalComment on above:Performed By: #### CBC #### [facility] [address] [place] [address] Dr. Ruthie Flores #0.6 103/ulNormal0.3-0.8The [facility] HospitalComment on above:Performed By: #### CBC #### [facility] [address] [place] [address] Dr. Ruthie Jerniganocytes/100 WBC (Bld)6.4 %Normal1.7-12.0[facility] Comment on above:Performed By: #### CBC #### [facility] [address] [place], [place] [address] Dr. Ruthie Eckert #5.5 103/ulNormal1.4-6.5The [facility] HospitalComment on above:Performed By: #### CBC #### [facility] [address] [place] [address] Dr. Ruthie Marinautrophils/100 WBC (Bld)62.5 %Rajbqa22.0-75.0The [facility] HospitalComment on above:Performed By: #### CBC #### [facility] [address] [place] [address] Dr. Ruthie Waynelet mean volume (Bld) [Entitic vol]11.1 fLNormal9.5-13.5The [facility] HospitalComment on above:Performed By: #### CBC #### [facility] [address] [place] [address] Dr. Ruthie PanPLT150 103/rlGmoqlp362-521Gey [facility] HospitalComment on above: Performed By: #### CBC #### [facility] [address] [place] [address] Dr. Ruthie WynnC4.58 106/ulNormal4.20-5.40The [facility] HospitalComment on above:Performed By: #### CBC #### [facility] [address] [place] [address] Dr. Ruthie PanWBC8.8 103/ulNormal4.0-11.0The [facility] HospitalComment on above: Performed By: #### CBC #### [facility] [address] [place] [address] Dr. Ruthie Rodriguez-19 PCR (CVDTB)on 07-08-2385CAVO-CoV-2 (COVID-19) RNA MICHAEL+probe Ql (Unsp spec)Not detectedNormalNOT DETECTEDThe [facility] Comment on above:Result Comment: This test is not yet approved or cleared by the [place] FDA. When there are no FDA-approved or cleared tests available, and other criteria are met, FDA can make tests available under an emergency access mechanism called an Emergency Use Authorization (EUA). The EUA for this test is supported by the [place] of Health and Human Service's (HHS's) declaration that circumstances exist to justify the emergency use of in vitro diagnostics for the detection and/or diagnosis of the virus that causes COVID- 19. This EUA will remain in effect (meaning [...] of clinical signs and symptoms consistent with SARS-CoV-2.Performed By: #### CVDTBH ####[facility] [address] [place], [place] [address]DrGideon PanINFLUENZA A AND B AGon 20-93-5238UJFLZRYCYAGQF [facility] CenterComment on above:Result Comment: Negative for Flu A protein angiten. Infection due to Flu A cannot be ruled out. FluA angiten in the sample may be below the detection limit of the test.Performed By: #### INFLUAB ####[facility] [address] [address]Dr. Ruthie ChangINFLUBNEGHSEE [facility] CenterComtr[facility] on above:Result Comment: Negative for Flu B protein antigen. Infection due to Flu B cannot be ruled out. FluB antigen in the sample may be below the detection limit of the test.Performed By: #### INFLUAB ####[facility] Vwmev[address]ew[address] [place], [place] [address]Dr. Ruthie PanINFLUENZA A AGNegativeNormalNEGATIVE SEE COMMENTThe [facility] Comment on above:Performed By: #### INFLUAB ####[facility] Essctxstjw[address] [place], [place] [address]Dr. Ruthie PanINFLUENZA B AGNegativeNormal NEGATIVE SEE COMMENTThe [facility] HospitalComment on above:Performed By: #### INFLUAB ####[facility] Kvoiwe[address] [place], [place] [address]Dr. Ruthie PanINTERNAL CONTROLSWithin Normal LimitsNormalWithin Normal LimitsThe [facility] HospitalComment on above:Performed By: #### INFLUAB ####[facility] Zeqsqvlmyf[address] [place], [place] [address]Dr. Ruthie PanPROF 14(COMP METB)on 07-06-6294Jzehnnv [Mass/Vol]3.7 g/dLNormal 3.4-5.0The [facility] HospitalComment on above:Performed By: #### CMP ####[facility] Ljiscxxdsv[address] [place], [place] [address]Dr.Ruthie Pan Albumin/Globulin [Mass ratio]1.1 {ratio}NormalThe [facility] HospitalComment on above:Performed By: #### CMP ####[facility] [address]vqzbwrmpp[address] [place], [place] [address]Dr.Ruthie PanALP [Catalytic activity/Vol]125 U/L Critically yuzr84-283Cif [facility] HospitalComment on above:Performed By: #### CMP ####[facility] Ijdmvtwoys[address] [place], [place] [address]Dr. Ruthie PanALT [Catalytic activity/Vol]17 U/GCzzqzm56-78Fkr [facility] Comment on above:Performed By: #### CMP ####[facility] Eimmhqfipy[address] [place], [place] [address]Dr.Ruthie PanAnion gap [Moles/Vol]9.8 mmol/LNormalThe [facility] HospitalComment on above:Performed By: #### CMP ####[facility] Kdzkxdwdeh7[address] [place], [place] [address]Dr. Ruthie PanAST [Catalytic activity/Vol]16 U/IRavzvh20-16Zpm [facility] Comment on above:Performed By: #### CMP ####[facility] Tiwrhsumhj[address] [place], [place] [address]Dr.Yilan ChangBilirubin [Mass/Vol]0.3 mg/dL Normal0.2-1.0The [facility] HospitalComment on above:Performed By: #### CMP ####[facility] Ernwqipohp50[address] [place], [place] [address]Dr. Yilan ChangCalcium [Mass/Vol]8.7 mg/dLNormal8.5-10.1The [facility] HospitalComment on above:Performed By: #### CMP ####[facility] Jclfutzrkd43[address] [place], [place] [address]Dr.Yilan ChangChloride [Moles/Vol]103 mmol/LNormal 98-107The [facility] HospitalComment on above:Performed By: #### CMP ####[facility] Bgsyrjjxom[address] [place], [place] [address]Dr.Yilan ChangCO2 [Moles/Vol]28.3 mmol/YXspcbf41.0-32.0The [facility] HospitalComment on above: Performed By: #### CMP ####[facility] Ynfqazunrw45[address] [place], [place] [address]Dr.Yilan ChangCreatinine [Mass/Vol]0.62 mg/dLNormal 0.55-1.02The [facility] HospitalComment on above:Performed By: #### CMP ####[facility] Ewevixtpgu99[address] [place], [place] [address]Dr. Yilan ChangEGFR-AF MOROCCAN>60Normal>=60The [facility] HospitalComment on above: Performed By: #### CMP ####[facility] Ttzgsxsafz[address] [place], [place] [address]Dr.Yilan ChangEGFR-NON AF MOROCCAN>60Normal>=60The [facility] HospitalComment on above:Performed By: #### CMP ####[facility] Nxibaqzels00[address] [place], [place] [address]Dr.Yilan ChangGlobulin (S) [Mass/Vol]3.4 g/dLNormalThe [facility] HospitalComment on above:Performed By: #### CMP ####[facility] [address] [address]Dr.Yilan ChangGlucose [Mass/Vol]103 mg/oGOudrbi98-426Mip [facility] Comment on above:Performed By: #### CMP ####[facility] [address] [address]Dr.Yilan ChangPotassium [Moles/Vol]3.1 mmol/LCritically low3.5-5.1The [facility] HospitalComment on above:Performed By: #### CMP ####[facility] [address]jj[address] [place] [address]Dr.Yilan ChangProtein [Mass/Vol]7.1 g/dLNormal6.4-8.2The [facility] Comment on above:Performed By: #### CMP ####[facility] Kavagffzgd[address] [place], [place] [address]Dr.Yilan ChangSodium [Moles/Vol]140 mmol/L Pnxebu612-395Vqt [facility] HospitalComment on above:Performed By: #### CMP ####[facility] Kpteahetol[address] [place], [place] [address]Dr. Yilan ChangUrea nitrogen [Mass/Vol]6.0 mg/dLCritically low7.0-18.0The [facility] HospitalComment on above:Performed By: #### CMP ####[facility] Lowdjnjbzp[address] [place], [place] [address]Dr.Yilan ChangUrea nitrogen/Creatinine [Mass ratio]9.7 mg/mgNormUniversity Hospitals Lake West Medical CenterComment on above:Performed By: #### CMP ####[facility] Zfujhumjdd[address] [place], [place] [address]Dr.Yilan ChangUrine culture routineOrdered By: Rufina Rubio on 06-78-7307Bfcwnbbx identified Cx Nom (U)Escherichia coli [facility] HospitalUrine culture routineOrdered By: Rufina Rubio on 65-59-0831Lhkongrs identified Cx Nom (U)Escherichia coliOhiohealth Doctors HospitalAMYLASEon 12-63-5902Xmazfkj [Catalytic activity/Vol]85 U/LLyoxju82-148Jny [facility] HospitalComment on above:Performed By: #### ROSALIA GONZALEZ LIPA #### [facility] [address] [address] [address] Ruthie Modi AUTO DIFFon 55-08-3913FYHG #0.0 103/ulNormal0.0-0.1The [facility] HospitalComment on above:Performed By: #### CBC ####[facility] [address] [address]Dr.Ruthie PanBasophils/100 WBC (Bld)0.4 %Normal0.2-2.0The [facility] HospitalComtr[facility] health living[facility] hospital on above:Performed By: #### CBC ####[facility] [address] [address]Dr.Ruthie ChangEO #0.2 103/ulNormal0.0-0.7The [facility] HospitalComment on above:Performed By: #### CBC ####[facility] Lxdttpusrr[address] [place], [place] [address]Dr.Ruthie ChangEosinophils/100 WBC (Bld)1.6 %Normal 0.9-7.0The [facility] HospitalComtr[facility] health living[facility] hospital on above:Performed By: #### CBC ####[facility] [address] [address]Dr.Ruthie Pan Erythrocyte distribution width (RBC) [Ratio]13.8 %Zaxhgz75.0-15.0The [facility] HospitalComment on above:Performed By: #### CBC ####[facility] Zsdkupyalh[address] [place], [place] [address]Dr.Ruthie PanHematocrit (Bld) [Volume fraction]38.5 %Geayat55.0-48.0The [facility] Hospitalment on above:Performed By: #### CBC ####[facility] Jkrchuzcqf[address] [place], [place] [address]Dr.Ruthie PanHemoglobin (Bld) [Mass/Vol]12.3 g/dL Bqlxut33.0-16.0The [facility] HospitalComment on above:Performed By: #### CBC ####[facility] [address] [address]Dr. Ruthie PanIG #0.04 10e3/ulCritically high0.00-0.03The [facility] HospitalComment on above:Performed By: #### CBC ####[facility] [address] [address]Dr.Ruthie PanIG %0.4 %Normal0.0-0.5The [facility] HospitalComment on above:Performed By: #### CBC ####[facility] Zcogohhifu[address] [place], [place] [address]Dr.Ruthie SaleemH #3.4 103/ulNormal1.2-3.8The [facility] HospitalComment on above:Performed By: #### CBC ####[facility] Icgxvlmngz[address] [place], [place] [address]Dr. Ruthie Saleemhocytes/100 WBC (Bld)31.2 %Rwcqut39.5-60.0The [facility] Comment on above:Performed By: #### CBC ####[facility] Matckewtje[address] [place], [place] [address]Dr.Ruthie PanMANUAL DIFF REQNONormalThe [facility] HospitalComment on above:Performed By: #### CBC ####[facility] [address]qddcierth[address] [place], [place] [address]Dr.Ruthie PanST. [facility]ANC[facility] (RBC) [Entitic mass]31.1 qqYkuheq63.7-34.0The [facility] HospitalComment on above: Performed By: #### CBC ####[facility] Ztwcwdvics[address] [place], [place] [address]Dr.Ruthie PanBUFFALO [facility] (RBC) [Mass/Vol]31.9 g/dLNormal 29.9-35.2The [facility] HospitalComment on above:Performed By: #### CBC ####[facility] Wxffhfgoag[address] [place], [place] [address]Dr. Ruthie PanV (RBC) [Entitic vol]97.5 qRPmlwvo57.0-99.0The [facility] Comment on above:Performed By: #### CBC ####[facility] Yaikcemytf[address] [place], [place] [address]Dr.Ruthie PanMONO #0.9 103/ulCritically high0.3-0.8The [facility] HospitalComment on above:Performed By: #### CBC ####[facility] Kkcnwajdtp[address] [place], [place] [address]Dr. Ruthie PanMonocytes/100 WBC (Bld)8.0 %Normal1.7-12.0The [facility] Comment on above:Performed By: #### CBC ####[facility] Scuppmvfor0[address] [place], [place] [address]Dr.Ruthie PanNEUT #6.4 103/ulNormal1.4-6.5 The [facility] HospitalComment on above:Performed By: #### CBC ####[facility] Yuzaitpoqr[address] [place], [place] [address]Dr.Ruthie Maxim Neutrophils/100 WBC (Bld)58.4 %Zwogtg32.0-75.0The [facility] HospitalComment on above:Performed By: #### CBC ####[facility] Mjfiftwscm[address] [place], [place] [address]Dr.Ruthie PanPlatelet mean volume (Bld) [Entitic vol] 10.7 fLNormal9.5-13.5The [facility] HospitalComment on above:Performed By: #### CBC ####[facility] Fxprywdykc[address] [place], [place] [address]Dr. Ruthie EjpcaRTT546 103/jgEostzz258-337Wlq [facility] HospitalComment on above: Performed By: #### CBC ####[facility] Jngmbkhnbf[address] [place], [place] [address]Dr.Michaelajean-claude MaximRBC3.95 106/ulCritically low4.20-5.40The [facility] HospitalComment on above:Performed By: #### CBC ####[facility] Boqymhfeiw[address] [place], [place] [address]Dr.Michaelalan DnbnyRUR56.0 103/ul Normal4.0-11.0The [facility] Hospitalment on above:Performed By: #### CBC ####[facility] [address] [address]Dr. Ruthie PanCT ABD/PELV W CONon 51-26-3509MF ABD/PELV W CONEXAMINATION: CT ABD/PELV W CON HISTORY: GENERALIZED ABDOMINAL [...] Electronically authenticated by: LUDIN ANGELES Date: 2021-11-24 03:59NormAccess [facility] Daytone [facility] HospitalLACTATE/LACTIC ACIDon 58-01-5405Qedtixg [Moles/Vol]1.0 mmol/L Normal0.4-1.9The [facility] HospitalComment on above:Performed By: #### LACT #### [facility] [address] [place] [address] Dr. Ruthie PanLIPASEon 29-25-0934Wcgkfj [Catalytic activity/Vol]123.0 U/LNormal 73.0-393.0The [facility] Hospitalment on above:Performed By: #### CMP ROSALIA, LIPA #### [facility] [address] [place] [address] Dr. Ruthie Del Real 14(COMP METB)on 74-48-5699Uyvqmws [Mass/Vol]3.3 g/dL Critically low3.4-5.0The [facility] Hospitalment on above:Performed By: #### CMP, ROSALIA, LIPA #### [facility] [address] [address] [address] Ruthie PanAlbumin/Globulin [Mass ratio]1.1 {ratio}NormalThe [facility] HospitalComment on above:Performed By: #### CMP, ROSALIA, LIPA #### [facility] [address] [address] [address] Ruthie iPttsP [Catalytic activity/Vol]139 U/LCritically qoeu42-512Zvq [facility] HospitalComment on above:Performed By: #### CMP, ROSALIA, LIPA #### [facility] [address] [address] [address] Ruthie PittsT [Catalytic activity/Vol]17 U/MNavwii84-98Rrq [facility] HospitalComment on above:Performed By: #### CMP, ROSALIA, LIPA #### [facility] [address] [place] [address] Dr. Ruthie Winchesteron gap [Moles/Vol]10.5 mmol/LNormalThe [facility] Comment on above:Performed By: #### CMP, ROSALIA, LIPA #### [facility] [address] [address] [address] Ruthie PanAST [Catalytic activity/Vol]14 U/LCritically axg72-69Jiw [facility] HospitalComment on above:Performed By: #### CMP, ROSALIA, LIPA #### [facility] [address] [place] [address] Dr. Ruthie PanBilirubin [Mass/Vol]0.2 mg/dLNormal0.2-1.0The [facility] Comment on above:Performed By: #### CMP, ROSALIA, LIPA #### [facility] [address] [address] [address] Ruthie PnaCalcium [Mass/Vol]8.3 mg/dLCritically low8.5-10.1The [facility] HospitalComment on above:Performed By: #### CMP, ROSALIA, LIPA #### [facility] [address] [address] [address] Ruthie PanChloride [Moles/Vol]103 mmol/HGxrgsg98-964Vwz [facility] Comment on above:Performed By: #### CMP, ROSALIA, LIPA #### [facility] [address] [address] [address] Ruthie PanCO2 [Moles/Vol]27.9 mmol/TEpunbe26.0-32.0The [facility] Comment on above:Performed By: #### CMP, ROSALIA, LIPA #### [facility] [address] [place] [address] Dr. Ruthie PanCreatinine [Mass/Vol]0.71 mg/dLNormal0.55-1.02The [facility] HospitalComment on above:Performed By: #### CMP, ROSALIA, LIPA #### [facility] [address] [place] [address] Dr. Ruthie PostGFR-AF MOROCCAN>60Normal>=60The [facility] HospitalComment on above:Performed By: #### CMP, ROSALIA, LIPA #### [facility] [address] [place] [address] Dr. Ruthie oPstGFR-NON AF MOROCCAN>60Normal>=60The [facility] HospitalComment on above:Performed By: #### CMP, ROSALIA, LIPA #### [facility] [address] [place] [address] Dr. Ruthie PanGlobulin (S) [Mass/Vol]3.1 g/dLNormalThe [facility] HospitalComment on above:Performed By: #### CMP, ROSALIA, LIPA #### [facility] [address] [place] [address] Dr. Ruthie PanGlucose [Mass/Vol]113 mg/dLCritically jnut84-053Vmh [facility] HospitalComment on above:Performed By: #### CMP, ROSALIA, LIPA #### [facility] [address] [place] [address] Dr. Ruthie PanPotassium [Moles/Vol]3.4 mmol/LCritically low3.5-5.1The [facility] HospitalComment on above:Performed By: #### CMP, ROSALIA, LIPA #### [facility] [address] [address] [address] Ruthie PanProtein [Mass/Vol]6.4 g/dLNormal6.4-8.2[facility] Comment on above:Performed By: #### CMP, ROSALIA, LIPA #### [facility] [address] [address] [address] Ruthie PanSodium [Moles/Vol]138 mmol/VWtushd327-827Ouq [facility] Comment on above:Performed By: #### CMP, ROSALIA, LIPA #### [facility] [address] [address] [address] Ruthie PanUrea nitrogen [Mass/Vol]10.0 mg/dLNormal7.0-18.0The [facility] HospitalComment on above:Performed By: #### CMP, ROSALIA, LIPA #### [facility] [address] [place] [address] Dr. Ruthie Almodovar nitrogen/Creatinine [Mass ratio]14.1 mg/mgNoNewark HospitalComment on above:Performed By: #### LISA, ROSALIA, LIPA #### [facility] [address] [place] [address] Dr. Ruthie PanUS SINGLE QUAD RT UPPERon 40-92-6220LZ SINGLE QUAD RT UPPER EXAMINATION: US SINGLE [...] Electronically authenticated by: MILE BENITEZ Date: 2021-11-24 07:56[facility] CenterXR [facility] RT 2V or >on 19-85-2731XM SHOULDER RT 2V or >EXAM: XR SHOULDER RT 2V or > HISTORY: [...] Electronically authenticated by: Austin VENTURA Date: 2021-11-21 02:37[facility] Vital Signs Date TimeVital SignValuePerforming LlvxexhndBvsuwdhz92-78-5236 09:21-0400Body rjyoqd746.5 cmMichael [employer] Work Phone: [employer] [id number] 09:21-0400Body mass index (BMI) [Ratio]23.23 kg/q5Xceyd [employer] Work Phone: [employer] InteractiveDyhoormnud78-38-9806 09:21-0400Body nwzapv28.61 kgMichael [employer] Work Phone: [employer] Kzmkgeborb23-97-5146 09:37-0400Body tizhxx966.5 cmMichael [employer] Work Phone: [phone] Ihlddzhhvg11-64-0857 09:37-0400Body mass index (BMI) [Ratio]23.23 kg/u8Znzxo [employer] Work Phone: [employer] Vxcpcxsyxt79-60-6527 09:37-0400Body bndoya04.61 kgMichael [employer] Work Phone: [employer] Mxjhnypdjg86-85-4718 11:00-0400Body temperature 98.5 [degF]Rufina Rubio NP-C Work Phone: [facility]03-21-2025 11:00-0400 Diastolic blood irltmpib58 mm[Hg]Rufina Rubio ACUTE CARE NURSING ASSISTANT-C Work Phone: [phone]-[facility]03-21-2025 11:00-0400 Heart rate72 /Yakelin Rubio ACUTE CARE NURSING ASSISTANT-C Work Phone: [phone]-[facility]03-21-2025 11:00-0400 Respiratory rate18 /Yakelin Rubio ACUTE CARE NURSING ASSISTANT-C Work Phone: [phone] [place], [place] [address]3-21-2025 11:00-0400 SaO2% (BldA) [Mass fraction]99 %Rufina Rubio ACUTE CARE NURSING ASSISTANT-C Work Phone: [phone] [place], [place] [address]3-21-2025 11:00-0400 Systolic blood pfeobfuy184 mm[Hg]Rufina Rubio ACUTE CARE NURSING ASSISTANT-C Work Phone: [phone]02-03-2025 10:48-0500 Body ryjwbk626.5 cmMichael [employer] Work Phone: [phone] [place], [place] 4988302-03-2025 10:48-0500Body mass index (BMI) [Ratio]22.68 kg/v9Rlqdv [employer] Work Phone: [phone] [place], [place] 4988302-03-2025 10:48-0500Body .25 kgMichael [employer] DO Work Phone: [phone] [place], [place] 4988312-17-2024 15:17-0500Body zkjicd766.5 cmMichael [employer] Work Phone: [phone] [place], [place] 4988312-17-2024 15:17-0500Body mass index (BMI) [Ratio]22.68 kg/m6Oelde [employer] DO Work Phone: [phone] [place], [place] 4988312-17-2024 15:17-0500Body .25 kgMichael [employer] Work Phone: [phone] [place], [place] 4988311-19-2024 15:15-0500Body afxfco816.5 cmGatotuan [employer] Work Phone: [phone] [place], [place] 4988311-19-2024 15:15-0500Body mass index (BMI) [Ratio]22.68 kg/e1HieqvMichael Henderson DO Work Phone: [phone] [place], [place] 4988311-19-2024 15:15-0500Body jaqptn05.25 kgMichael Henderson DO Work Phone: [phone] [place], [place] 4988311-08-2024 12:20-0500Body temperature 98.06 [degF]Michael Henderson [address] [place], [place] 2520911-08-2024 12:20-0500 Diastolic blood wdjlpwqo25 mm[Hg]Michael Henderson [address] [place], [place] 2520911-08-2024 12:20-0500Heart rate65 /minMichael Henderson [address] [place], [place] 2520911-08-2024 12:20-0500Mean blood mvyeegwx20 mm[Hg]Michael Henderson [address] [place], [place] 2520911-08-2024 12:20-0500 Respiratory rate16 /minMichael Henderson [address] [place], [place] 2520911-08-2024 12:20-9004ViF0% (BldA) [Mass fraction]100 %Michael Henderson [address] [place], [place] 2520911-08-2024 12:20-0500 Systolic blood dmmubyvb708 mm[Hg]Michael Henderson [address] [place], [place] 2520911-08-2024 11:34-0500Heart rate77 /minMichael Henderson [address] [place], [place] 8107711-08-2024 11:34-1854NaT5% (BldA) [Mass fraction]99 %Michael Henderson [address] [place], [place] 8107711-08-2024 11:34-0500 Diastolic blood pyzbxixt87 mm[Hg]Michael Henderson [address] [place], [place] 2520911-08-2024 11:34-0500Mean blood oqfeaubv00 mm[Hg]Michael Beatriz [address] [place], [place] 2520911-08-2024 11:34-0500 Systolic blood xrymngqb962 mm[Hg]Michael Henderson [address] [place], [place] 2520911-08-2024 11:25-0500Blood Pressure LocationMichael Henderson [address] [place], [place] 2520911-08-2024 11:25-0500Body gbbeicqrirx75.88 [degF]Michael Henderson [address] [place], [place] 2520911-08-2024 11:25-0500 Diastolic blood tbianerx74 mm[Hg]Michael Henderson [address] [place], [place] 2520911-08-2024 11:25-0500Heart rate61 /Reneetuan Beatriz [address] [place], [place] 2520911-08-2024 11:25-0500Mean blood acskiwpr119 mm[Hg]Michael Henderson [address] [place], [place] 2520911-08-2024 11:25-0500 Respiratory rate17 /Liza Henderson [address] [place], [place] 2520911-08-2024 11:25-4401VnR5% (BldA) [Mass fraction]100 %Michael Henderson [address] [place], [place] 2520911-08-2024 11:25-0500 Systolic blood owpnhomr134 mm[Hg]Michael Beatriz [address] [place], [place] 2520911-08-2024 11:15-0500Blood Pressure LocationGatotuan Beatriz [address] [place], [place] 8107711-08-2024 11:15-0500Mean blood mm[Hg]Michael Beatriz [address] [place], [place] 2520911-08-2024 11:15-0500 Respiratory rate20 /minGatotuan Henderson [address] [place], [place] 2520911-08-2024 10:42-0500Body vamozdxbmya61.16 [degF]Michael Henderson [address] [place], [place] 8107711-08-2024 10:40-0500 Respiratory rate3 /Liza Henderson [address] [place], [place] 8107711-08-2024 10:35-0500 Respiratory rate21 /Liza Henderson [address] [place], [place] 2520911-08-2024 06:41-0500Mean blood fpbatxni32 mm[Hg]Michael Henderson [address] [place], [place] 8107711-08-2024 06:40-0500Body fetsufujfkw87.7 [degF]Michael Henderson [address] [place], [place] 2520911-08-2024 06:40-0500Mean blood awzqgtvw73 mm[Hg]Michael Henderson [address] [place], [place] 2520910-24-2024 14:14-0400 Diastolic blood vjukwitg70 mm[Hg]Michael Henderson [address]10-24-2024 14:14-0400Heart rate66 /Liza Henderson [address] [place], [place] 8107710-24-2024 14:14-0400Mean blood zyujlzpa99 mm[Hg]Michael Henderson [address] [place], [place] 8107710-24-2024 14:14-0400 Systolic blood mpyxychb391 mm[Hg]Michael Henderson [address] [place], [place] 8107710-24-2024 14:14-0400 Respiratory rate18 /Liza Henderson [address] [place], [place] 8107710-24-2024 14:14-0400Heart rate70 /Liza Henderson [address] [place], [place] 2520910-24-2024 14:14-6808RgA5% (BldA) [Mass fraction]100 %Michael Henderson [address]10-24-2024 14:14-0400 Diastolic blood uiafyntc30 mm[Hg]Michael Henderson [address]10-24-2024 14:14-0400Mean blood ydajyvye96 mm[Hg]Michael Henderson [address] [place], [place] 8107710-24-2024 14:14-0400 Systolic blood mlbqyval899 mm[Hg]Michael Henderson [address] [place], [place] 2520910-24-2024 13:28-0400Body .5 cmMichael Henderson DO Work Phone: [phone] [place], [place] 4988310-24-2024 13:28-0400Body mass index (BMI) [Ratio]22.68 kg/f2OfpefMichael Henderson DO Work Phone: [phone] [place], [place] 4988310-24-2024 13:28-0400Body temperature 97.39 [degF]Michael Henderson DO Work Phone: [phone] [place], [place] 4988310-24-2024 13:28-0400Body mhpilt95.25 kgMichael Henderson DO Work Phone: [phone] [place], [place] 4988309-26-2024 15:04-0400Body nukqjc091.5 cmMichael Henderson DO Work Phone: [phone] [place], [place] 4988309-26-2024 15:04-0400Body mass index (BMI) [Ratio]22.68 kg/p6JdykkMichael Henderson DO Work Phone: [phone] [place], [place] 4988309-26-2024 15:04-0400Body rtcaxt05.25 kgMichael Henderson DO Work Phone: [phone] [place], [place] 4988308-27-2024 11:08-0400Body wmcitd338.5 cmMichael Henderson DO Work Phone: [phone] [place], [place] 4988308-27-2024 11:08-0400Body mass index (BMI) [Ratio]22.68 kg/v9AwtmkMichael Henderson DO Work Phone: [phone] [place], [place] 4988308-27-2024 11:08-0400Body fgxpiy42.25 kgGatotuan Beatriz [employer] Work Phone: [phone] [place], [place] 4988301-12-2023 00:20-0500Diastolic blood yhcpoeyh52 mm[Hg]Services [facility] Work Phone: [phone]01-12-2023 00:20-0500 Heart rate89 /[facility] [employer] Work Phone: [phone]01-12-2023 00:20-0500 Respiratory rate18 /[facility] [employer] Work Phone: [phone]01-12-2023 00:20-0500 SaO2% (BldA) [Mass fraction]99 %Services [facility] [employer] Work Phone: [phone]01-12-2023 00:20-0500 Systolic blood lwwomlye997 mm[Hg]Services [facility] Work Phone: [phone]01-11-2023 19:43-0500 Body vvhign305.94 cmSnyu [facility] Emissary [facility] Work Phone: [phone]01-11-2023 19:43-0500 Body lfbuchqzpwg76.4 [degF]Services [facility] [employer] Work Phone: [phone] [place], [place] 2180201-11-2023 19:43-0500 Body pgbaht83 kgSerexcela [facility]missary [facility] Work Phone: [phone])[address]05-15-2022 23:23-0400 Body ikertwjesfc07.06 [degF]Venancio Ernesto [facility]05-15-2022 23:23-0400 Diastolic blood nrxpxaqb95 mm[Hg]Venancio Ernesto [facility]05-15-2022 23:23-0400Heart rate81 /minNoah Ernesto [facility]05-15-2022 23:23-0400 Respiratory rate16 /minNoah Ernesto [facility]05-15-2022 23:23-9343AnH7% (BldA) [Mass fraction]97 %Venancio Orozco [facility]05-15-2022 23:23-0400 Systolic blood nsjysknm285 mm[Hg]Venancio Orozco [facility] Encounters Encounter DateEncounter TypeCare ProviderFacilityStart: 04-27-2025 End: 54-99-7661fismmmankqZJTravis HendersonFacility:FTMCStart: 04-16-2025 End: 00-36-8866Mwegnf flowsheetMichael Sainz Beatriz MILLER Work Phone: [facility]opaedicsStart: 04-16-2025 End: 74-59-9333Bnbaik flowsheetMichael Sainz Beatriz MILLER Work Phone: NOOQ [facility] OrthopaedicsStart: 04-16-2025 End: 17-81-4028Ftrflxm encounter procedureMichael Sainz Beatriz MILLER Work Phone: NOYW Kiana OrthopaedicsComment on above:Left shoulder pain, unspecified chronicityStart: 04-16-2025 End: 65-67-1476gocobbpsojFSRDL A BROWNNot AvailableStart: 04-09-2025 End: 51-92-8654eusbahmvtoSTUQR A BROWNNot AvailableStart: 04-02-2025 End: 42-75-9183Tmydemr encounter procedureMichael Henderson Work Phone: NOAG [facility] OrthopaedicsComment on above:Left shoulder pain, unspecified chronicity (Primary Dx)Start: 04-02-2025 End: 02-54-9608vgpwobrvskNAEIW A BROWNNot AvailableStart: 04-02-2025 End: 78-16-9791jsuaeauffnBMJUP A BROWNNot AvailableStart: 03-14-2025 End: 45-86-4966Saxaqmwhbx RecurringAaron [facility] Start: 03-14-2025 End: 83-59-0251bioubqceszJcloaunc [facility] Work Phone: [facility] Work Phone: Start: 02-28-2025 End: 50-22-5572blmzutqfbaAkvdklqeDuke [facility] Work Phone: [facility] Work Phone: Start: 02-28-2025 End: 94-52-9227Hxrwbwge ReferredPepe Charlie [facility] Start: 12-25-2024 End: 03-01-2796Aritwph encounter procedurePepe Guerra [facility] Work Phone: Start: 12-25-2024 End: 92-83-3597rvpbuwgukoQabbwfoaDuke Raleigh HospitalFacility:[facility] Centertart: 11-14-2024 End: 10-64-4215vuuqpplnbuWwudj D KastenFacility:[facility] CENTERtart: 11-14-2024 End: 62-33-5948Vuyonmz encounter procedureAkbar Vergara [facility] Start: 09-29-2024 End: 52-89-8341Ldlcarz encounter procedureRufina Rubio ACUTE CARE NURSING ASSISTANT-C Work Phone: [facility]-Ultrasound Cntr for Breast CarStart: 09-29-2024 End: 13-87-6310shzhohqxdgHdbxhmvkRufina Rubio ACUTE CARE NURSING ASSISTANT-C Work Phone: [facility] Work Phone: Start: 09-22-2024 End: 23-37-2251Gvtevft encounter procedureRufina Rubio ACUTE CARE NURSING ASSISTANT-C Work Phone: [facility] Work Phone: Start: 09-22-2024 End: 42-68-4917yjusfpfmriLeydvhyuMaribell Rubio ACUTE CARE NURSING ASSISTANT-C Work Phone: [facility] Work Phone: Start: 09-20-2024 End: 94-20-5051Bwfgxgy encounter Camron Rubio ACUTE CARE NURSING ASSISTANT-C Work Phone: [facility]-Ultrasound [facility] Work Phone: Start: 09-20-2024 End: 11-35-7102rezfmvalwbUzjylkfwAriela Rubio ACUTE CARE NURSING ASSISTANT-C Work Phone: [facility] Work Phone: Start: 08-22-2024 End: 20-51-9285Xrxylwdsg encounterSmarta Cox PTNOMS CI PTComment on above:re: More PT; fu; Final attemptStart: 08-14-2024 End: 21-38-2871Tdmbocphan Henderson DO Work Phone: NOMS SWS ORTHOAOStart: 08-14-2024 End: 09-47-2563Hogxscphan Henderson DO Work Phone: NOMS SWS ORTHOAOStart: 08-14-2024 End: 34-61-3696Pqounkf encounter procedureMichael Henderson Work Phone: NOMS SWS ORTHOAOComment on above:S/P arthroscopy of right shoulder (Primary Dx)Start: 08-14-2024 End: 75-11-4902savofthkomFIKHD A BROWNNot AvailableStart: 08-10-2024 End: 19-07-0573Togqpm Susan Samuel PTANOMS CI PTStart: 08-10-2024 End: 01-93-4114Jvntxg Susan Samuel PTANOMS CI PTStart: 08-10-2024 End: 54-04-2464fsyiylbqqcGamuium Lawrence PTANOMS CI PTComment on above:S/P arthroscopy of right shoulder (Primary Dx); Acute pain of right shoulderStart: 08-07-2024 End: 76-46-8939Nsobuf Susan Samuel PTANOMS CI PTStart: 08-07-2024 End: 74-73-2435Fpcddt Susan Samuel PTANOMS CI PTStart: 08-07-2024 End: 55-33-2885mujyqppyxrNsmxyot Danilo PTANOMS CI PTComment on above:S/P arthroscopy of right shoulder (Primary Dx); Acute pain of right shoulderStart: 08-04-2024 End: 85-80-6372jalectuukaRyufrwesAriela RubioFacility:[facility] Centertart: 08-04-2024 End: 88-65-7109Hcsvftb encounter Camron Rubio ACUTE CARE NURSING ASSISTANT-C Work Phone: [facility]Start: 08-03-2024 End: 85-18-6721Sidhhr Susan Samuel PTANOMS CI PTStart: 08-03-2024 End: 23-17-8027Qximps Susan Samuel PTANOMS CI PTStart: 08-03-2024 End: 68-09-4896equvvigwxhAfqsifi Lawrence PTANOMS CI PTComment on above:S/P arthroscopy of right shoulder (Primary Dx); Acute pain of right shoulderStart: 07-24-2024 End: 51-17-4227Drsgtx Susan Samuel PTANOMS CI PTStart: 07-24-2024 End: 84-39-0306Gcrtbk Susan Samuel PTANOMS CI PTStart: 07-24-2024 End: 75-91-8123qnbexxpeylTwmwhgl Lawrence PTANOMS CI PTComment on above:S/P arthroscopy of right shoulder (Primary Dx); Acute pain of right shoulderStart: 07-13-2024 End: 58-48-0386Cetgracgb encounterParvin Adkins PT Work Phone: noms CI PTComment on above:CovidStart: 07-11-2024 End: 13-78-5069Exoisz flowsheetSammantha Cox PTNOMS CI PTStart: 07-11-2024 End: 81-66-0800Cvsrnp flowsheetSammantha Cox PTNOMS CI PTStart: 07-11-2024 End: 71-66-0280eggzzcjvouXdvllleii Cox PTNOMS CI PTComment on above:Acute pain of right shoulder (Primary Dx); S/P arthroscopy of right shoulderStart: 06-27-2024 End: 17-78-6437Jwstple encounter procedureMichael Henderson DO Work Phone: NOMS NB ORTHOComment on above:S/P arthroscopy of right shoulder (Primary Dx)Start: 06-27-2024 End: 84-89-6544nxghdbflmhKHZDE Alistair BEATRIZNot AvailableStart: 06-27-2024 End: 79-60-4194Uzrdmp flowsheetMichael Henderson DO Work Phone: NOMS ORTHOStart: 06-27-2024 End: 32-24-6754Soartk flowsheetMichael Henderson DO Work Phone: NOMS ORTHOStart: 05-30-2024 End: 41-33-0353Dfuvxzf encounter procedureMichael Henderson DO Work Phone: NOMS NB ORTHOComment on above:Traumatic incomplete tear of right rotator cuff, subsequent encounter (Primary Dx); S/P arthroscopy of right shoulderStart: 05-30-2024 End: 43-48-3332llsaehodkdWMPMJ A BROWNNot AvailableStart: 05-30-2024 End: 48-56-9227puperxggilMDHQI Alistair BEATRIZNot AvailableStart: 05-19-2024 End: 78-04-3753Qexiqnyit to same day surgery centerMichael Henderson [facility] Start: 05-19-2024 End: 99-38-6477rvlczjbiwuNoisq A BrownFacility:FTMCStart: 05-04-2024 End: 94-82-5400Rkjskxx encounter procedureMichael Henderson [facility] Comment on above:Traumatic incomplete tear of right rotator cuff, subsequent encounter (Primary Dx)Start: 05-04-2024 End: 62-15-4499czlyzitjrbONKendy HendersonFacility:FTMCStart: 04-06-2024 End: 92-95-1973Orngmfn encounter procedureMichael Henderson DO Work Phone: NOMS NB ORTHOComment on above:Right shoulder pain, unspecified chronicity (Primary Dx)Start: 04-06-2024 End: 08-70-0413Alfbrc shanicedionMichael Henderson DO Work Phone: [phone] ORTHOStart: 04-06-2024 End: 04-30-6567Lpaqlp Lilian Henderson DO Work Phone: [phone] ORTHOStart: 03-07-2024 End: 43-52-7232Jnidek flowsMeet Henderson DO Work Phone: [phone] ORTHOStart: 03-07-2024 End: 34-47-6078Fhvzde Lilian Henderson DO Work Phone: [phone] ORTHOStart: 03-07-2024 End: 38-49-0824Biewhsq encounter procedureMichael Henderson DO Work Phone: NOMS NB ORTHOComment on above:Right shoulder pain, unspecified chronicity (Primary Dx)Start: 02-02-2024 End: 78-81-3800ttwbkqzspjCB-C Rufina Rubio Work Phone: [facility] Work Phone: Start: 02-02-2024 End: 30-72-3281Opimprhx ReferredNP-C Rufina Rubio Work Phone: [facility] ServicesStart: 09-28-2023 End: 21-36-4136zkwndpoogkFnllwbqj Family [facility] Work Phone: [facility] Work Phone: Start: 09-28-2023 End: 91-45-4760Rkcenvrp ReferredSerBon Secours [facility] Work Phone: [facility] ServicesStart: 09-87-2534Jesdo Violetta Galeana DPM Work Phone: noms SWS PODIATRYStart: 06-29-2023 End: 78-53-0162dazhmxjujiSFL Jenaro Galeana Work Phone: [facility] Work Phone: Start: 06-29-2023 End: 31-18-5899Iobqrgev ReferredDPM Jenaro Galeana Work Phone: [facility]Start: 05-26-2023 End: 69-14-3134cujdvqmidbSC-C Rufina Rubio Work Phone: [facility] Work Phone: Start: 05-26-2023 End: 65-13-7209Zglsqres ReferredNP-C Rufina Rubio Work Phone: [facility]-Lab [facility] Work Phone: Start: 03-19-2023 End: 03-69-1247kyvoxbtkfpSG-C Rufina Rubio Work Phone: [facility] Work Phone: Start: 03-19-2023 End: 90-88-0528Vmcaagva ReferredNP-C Rufina Rubio Work Phone: [facility]Start: 12-08-2022 End: 83-61-0806Nhcyuge encounter procedurePatrick Murphy ERICKSON [facility] Start: 11-16-2022 End: 14-57-8753ezqiqxpiocHH-C Rufina Rubio Work Phone: [facility] Work Phone: Start: 11-16-2022 End: 52-82-1904Ukuqbrdm ReferredNP-C Rufina Rubio Work Phone: [facility] Work Phone: Start: 10-04-2022 End: 74-72-3294efoilbpvdhRXOUQL SERVICES FAMILYFacility:I5Mjhzf: 09-21-2022 End: 72-65-6120ourypjcngvXNCCenterville Ctr Work Phone: Start: 09-21-2022 End: 05-64-9820Pxducwvs ReferredNP-C Rufina Rubio Work Phone: [facility] ServicesStart: 08-31-2022 End: 68-07-2842Aqkmscku ReferredNP-C Rufina Ramiro Work Phone: [facility] HospitalStart: 07-22-2022 End: 56-66-4254Tkmrfvpzy department patient visitServices [facility] Work Phone: [phone]-Emergency Room Work Phone: Start: 07-21-2022 End: 30-36-6586oyayevcoyjCYHUJX SERVICES FAMILYFacility:M9Wzqau: 07-20-2022 End: 01-13-8309bvozrtgtxkOB-C Rufina Rubio Work Phone: [facility] Work Phone: Start: 07-20-2022 End: 72-67-1363Owvqxdyv ReferredNP-C Rufina Rubio Work Phone: [facility] ServicesStart: 06-24-2022 End: 57-07-8108ggffymrkaaAWPCYH SERVICES FAMILYFacility:W5Onzec: 06-09-2022 End: 83-97-7716iroxospcmgGuhjkixy Family Health Work Phone: [facility] Work Phone: Start: 06-09-2022 End: 99-37-3061Svosrujr ReferredSerBon Sec[facility] Work Phone: [facility] ServicesStart: 04-14-2022 End: 38-98-0222qkadzpakkhTrciosto [facility] Work Phone: [facility] Work Phone: Start: 04-14-2022 End: 50-40-2568Qdopxluw ReferredSerBon Secours [facility] Work Phone: [facility] Family Health ServicesStart: 04-08-2022 End: 94-01-9123gtovnfmtokUADIER SERVICES FAMILYFacility:Z7Hholl: 11-24-2021 End: 67-97-5697rdwxwhhblvBMYGIX SERVICES FAMILYFacility:N3Stadp: 11-23-2021 End: 64-66-9195Wexkcckzn department patient visitVenancio Orozco [facility] Start: 11-21-2021 End: 09-41-9713oegefgqbyjWKKIOS SERVICES FAMILYFacility:W2Gnvae: 11-06-2021 End: 33-09-2433bjieiugayzCPUJJB SERVICES FAMILYFacility:H1 Procedures DateProcedureProcedure DetailPerforming ClinicianStart: 81-16-8341Oajcz shoulder complete minimum 2 viewsMichael Henderson DO Work Phone: Start: 85-92-5792Yuyjpacvtqr of right breastRufina Rubio ACUTE CARE NURSING ASSISTANT-C Work Phone: Start: 14-91-7990Forhvsimruhiswj guided biopsy of right breastRufina Rubio ACUTE CARE NURSING ASSISTANT-C Work Phone: Start: 41-09-4589Gncgdkoov mammographyJennjosse Chewson ACUTE CARE NURSING ASSISTANT-C Work Phone: Start: 73-60-7210Sjsnkrfkoswybky of bilateral breasts Rufina Rubio ACUTE CARE NURSING ASSISTANT-C Work Phone: Start: 72-72-0135Ajlvir echographyRufina Rubio ACUTE CARE NURSING ASSISTANT-C Work Phone: Start: 56-82-8807BP scan of bladderRufina Rubio ACUTE CARE NURSING ASSISTANT-C Work Phone: Start: 37-72-4707Ibzcldvnsviu echographyRufina Rubio ACUTE CARE NURSING ASSISTANT-C Work Phone: Start: 47-08-0636Godts cultureRufina Rubio ACUTE CARE NURSING ASSISTANT-C Work Phone: Start: 16-79-8342Emqgr shoulder complete minimum 2 viewsGatotuan Henderson DO Work Phone: Start: 71-36-6380Ogqbsrnalyy of shoulderMichael Henderson Start: 66-83-0580Bpqhzkt microbial cultureDPM Jenaro Galeana Work Phone: start: 85-29-7525Okusx cultureNP-C Rufina Rubio Work Phone: Start: 30-78-8795Ybugobcr tomography of abdomen and pelvis with contrastNP-C Rufina Rubio Work Phone: Start: 50-79-6503BO scan of gallbladderNP-C Rufina Rubio Work Phone: Start: 77-93-2456Fwufr cultureStrihealthBalaBit [facility] Work Phone: Start: 34-66-9756Okadc cultureNP-C Rufina Rubio Work Phone: Start: 46-09-0963Fxgnxsxccpv of shoulderNomilagro Orozco Urine CaroMont HealthBalaBit [facility] Work Phone: Vaginal hysterectomyNo Ernesto Plan of Treatment DateCare ActivityDetailAuthorStart: 05-24-2025 End: 82-73-6986Bzlrfut encounter meiqcgrtw80/13/2025 9:30 AM EST Office Visit [facility] [place] [facility] [address] [place] [address] Michael Henderson, DO [address] [place] [address] ALON [place] [facility]edicsStart: 04-16-2025 End: 14-29-5636Dyormbm encounter pitwnhhvu84/06/2025 9:00 AM EDT Office Visit [facility] [address] [facility] [place] [address] Michael Henderson, DO [address] [facility] [place] [address] ArrivedNOLA Kiana OrthopaedicsComment on above:ArrivedStart: 78-03-5412Gdhyimjmt vaccinationInfluenza Vaccine (#1)NOMS HealthcareStart: 10-16-2024 End: 11-15-1119Tczbxuc encounter jsecgqcaw20/07/2025 8:15 AM EDT Office Visit [facility] [address] [place] [address] Michael Henderson, DO [address] [facility] [place] [address] [facility] ORTHOAOStart: 18-33-2204ShyuejpfhUniversity Hospitals Parma Medical Centertart: 08-18-2024 End: 20-74-5892hfuilpyhgr05/07/2025 10:30 AM EST Treatment [facility] PT [address] [place] [address] Janey Cox PTNOMS CI PTStart: 08-17-2024 End: 47-03-6524tcljaocebo73/06/2025 10:30 AM EST Treatment [facility] [address] [place] [address] Jadiel Samuel PTANOMS CI PTStart: 08-15-2024 End: 38-56-7246ykmiipsnzh21/04/2025 12:30 PM EST Treatment [facility] [address] [place] [address] Janey Cox PTNO CI PTStart: 08-14-2024 End: 50-81-1870Arzxifq encounter procedureNOMS SWS ORTHOAOComment on above: ArrivedStart: 08-10-2024 End: 19-45-2167yvsabmrbqp32/30/2025 10:30 AM EST Treatment [facility] CI PT [address] [facility] [address] [place] [address] Janey Cox PTNOMS CI PTStart: 08-07-2024 End: 21-00-7331fjhcbalejfWXQB CI PTComment on above:ArrivedStart: 08-03-2024 End: 70-13-5907cpqbavfmfqBJFZ CI PTComment on above:ArrivedStart: 07-31-2024 End: 23-46-2731qeesfmzdlu28/20/2025 10:30 AM EST Treatment [facility] [address] [facility] [address] [place] [address] Jadiel Samuel PTANOMS CI PTStart: 07-27-2024 End: 87-07-2151obdfctkeyj41/16/2025 10:30 AM EST Treatment [facility] PT [address] [facility] [address] [place] [address] Janey Cox PTNOMS CI PTStart: 07-24-2024 End: 63-34-8460bpavfiaraeZBUG CI PTComment on above:S/P arthroscopy of right shoulder (Primary Dx); Acute pain of right shoulderStart: 07-20-2024 End: 10-50-5633ndwlzkuiys89/09/2025 10:30 AM EST Treatment [facility] [address] [facility] [address] [place] [address] Jadiel Samuel PTANOMS CI PTStart: 07-17-2024 End: 46-53-5181nmxptfypvg42/06/2025 10:30 AM EST Treatment [facility] PT [address] [facility] [address] [place] [address] Jadiel Samuel PTANOMS CI PTStart: 07-13-2024 End: 34-32-8321brlvvlvnck16/02/2025 1:00 PM EST Treatment [facility] [address] [facility] [address] [place] [address] Parvin Adkins, PT [address] [place] [address] [facility] PT Start: 07-11-2024 End: 83-97-9426ksleaodhpnMWXD CI PTComment on above:S/P arthroscopy of right shoulderStart: 07-04-2024 End: 52-35-0659zbpghkvkni49/24/2024 7:00 AM EST Evaluation [facility] [address] [place] [address] Janey Cox PTNOMS CI PTStart: 06-27-2024 End: 27-32-6862Rgoahai encounter procedureNOMS NB ORTHOComment on above:Arrived Start: 05-30-2024 End: 43-77-0177Kyurrck encounter ednktgjsy15/19/2024 3:15 PM EST Office Visit [facility] [address] [place] [address] Michael Henderson, DO [address] [facility] [place] [address] NOMS NB ORTHOStart: 05-04-2024 End: 58-53-7715Slmhngs encounter cjaugicoh21/24/2024 1:30 PM EDT Office Visit [facility] [address] [place] [address] Michael Henderson, DO [address] [place] [address] NOMS NB ORTHOStart: 04-06-2024 End: 77-59-5021Upojzbu encounter gxrphevpp08/26/2024 2:30 PM EDT Office Visit [facility] [address] [place] [address] Michael Henderson, DO [address] [facility] [place] [place] [address] ArrivedNOMS AGUAYO ORTHOComment on above:ArrivedStart: 03-12-2024 Influenza vaccinationInfluenza Vaccine (#1)NOMS HealthcareStart: 03-07-2024 End: 34-04-8280Kmkxwvt encounter vccygywdb75/27/2024 10:30 AM EDT Office Visit [facility] [address] [place] [address] Michael Henderson, [address] [place] [address] ArrivedNOMS AGUAYO ORTHOComment on above:ArrivedStart: 02-02-2024 [facility] Centertart: 62-77-7018Vitipovc identified in Urine by CultureUrine CultureUniversity Hospitals Parma Medical Centertart: 08-26-2023 End: 62-05-3387Jnqtfqx encounter rymfghlzv06/15/2024 9:00 AM EST Procedure Visit [facility] [address] [place] [address] Jenaro Galeana, MORGAN [address] [place] [address] N[facility] PODIATRYStart: 28-11-5189Fkspuwmy identified in Urine by CultureUniversity Hospitals Parma Medical Centertart: 39-86-1222Fcxittcyvad Wound CultureSuperficial Wound CultureUniversity Hospitals Parma Medical Centertart: 22-88-7526Uxwgjohr tomography of abdomen and pelvis with contrastCT abdomen pelvis w [facility] Hospitaltart: 93-29-3993VN Abdomen and Pelvis W contrast [facility] CenterStart: 38-53-0220EB GallbladderUniversity Hospitals Parma Medical Centertart: 13-08-9698VQ scan of gallbladderUS gall bladderUniversity Hospitals Parma Medical Centertart: 07-20-2022 Bacteria identified in Urine by CultureUrine Cleveland Clinictart: 92-91-4181Nrconhkwy for malignant neoplasm of breastMammogramNOMS HealthcareStart: 17-78-5961Dopegwjwp for malignant neoplasm of cervixNOMS HealthcareStart: 70-72-7071Fbtuihwzq for malignant neoplasm of cervixPap Smear [facility] HealthcareStart: 04-03-1978Medicare Annual Wellness (AWV)Medicare Annual Wellness (AWV)[facility] HealthcareStart: 18-09-7975Jmuutxhbu for malignant neoplasm of colonNOMS HealthcareAtopobium vaginae DNA [Presence] in Vaginal fluid by MICHAEL with probe detectionOhiohealth Doctors HospitalBacteria identified in Urine by CultureOhiohealth Doctors HospitalBacterial vaginosis associated bacterium 2 DNA [Presence] in Vaginal fluid by MICHAEL with probe detectionOhiohealth Doctors HospitalChlamydia trachomatis rRNA [Presence] in Cervix by MICHAEL with probe detectionLouis Stokes Cleveland [facility] Center papilloma virus 16+18+31+33+35+39+45+51+52+56+58+59+66+68 DNA [Presence] in Cervix by Probe with signal amplificationLouis Stokes [facility] papilloma virus 16+18+31+33+35+39+45+51+52+56+58+59+68 DNA [Presence] in Cervix by Probe with signal amplificationOhiohealth Doctors HospitalMegasphaera sp type 1 DNA [Presence] in Vaginal fluid by MICHAEL with probe detectionOhiohealth Doctors HospitalNeisseria gonorrhoeae rRNA [Presence] in Cervix by MICHAEL with probe detectionOhiohealth Doctors HospitalPatient EducationAbdominal Pain, Adult EDTrinity Health [facility] Work Phone: Patient referralTrinity Health [facility] Work Phone: Payers DatePayer CategoryPayerPolicy [id number] (Managed Care)[employer]IC[employer] [id number] Health [id number] [id number] [id number] 2..[id number] 2..[id number] 2..[id number] 2..1.973711.3.579.2.51942-27-5751Kbnorwd4853982 2..1.116552.3.579.2.42235-38-8930Yiyaucl5544966 2..1.065680.3.579.2.99891-48-5583Tiewptg47948871 2..1.828733.3.579.2.93858-74-7752Rrfmmst09606841 2..1.885655.3.579.2.27306-43-0652Puhlllq13650738 2.0.1.510370.3.579.2.45291-22-1927Ztsxahb16076773 2.0.1.670108.3.579.2.225411-21-7128Ecibczq53968799 2.16.840.1.514727.3.579.2.282136-56-0543Obpclkf27034906 2.0.1.634895.3.579.2.269235-07-9470Vhqzxup97997426 2..0.1.926324.3.579.2.592690-59-0922Amaxnet1837366 2.0.1.585098.3.579.2.280744-15-4991Vrtpckt3030025 2.0.1.375043.3.579.2.971614-43-6393Ktrawgn0245355 2.0.1.796447.3.579.2.267143-42-9060Pspuvzi6876186 2.0.1.934647.3.579.2.239651-75-1443Acwxbcj0664090 2..1.719289.3.579.2.083257-26-5154Wgtyeov3646711 2..1.733584.3.579.2.186527-02-9077Nkccaak8327337 2..1.088836.3.579.2.323034-33-9734Waooigl4856110 2..1.343422.3.579.2.804860-92-9898Oyqubpc2886730 2.0.1.801051.3.579.2.588907-77-2120Zznqtiy9621457 2.0.1.126643.3.579.2.907497-55-6068Unhnlfv00634251 2.0.1.616821.3.579.2.727 [id number] [id number] Health [id number] Ambetter [id number] 96kuu459-9c01-00yj-a911-8y22fh6l29gkMlhdqlb44661917 2.16.840.1.037259.3.579.2.835Fjrmpbc13743004 2.16.840.1.315516.3.579.2.531 Znjhsjp91026673 2.16.840.1.526019.3.579.2.735Nxliyzr59197809 2.16.840.1.592057.3.579.2.516Wojtunu53929163 2.16.840.1.927293.3.579.2.531 Jalolgd85817614 2.16.840.1.505560.3.579.2.439Fqlggvk03733182 2..840.1.572479.3.579.2.531 Social History DateTypeDetailFacilityStart: 11-11-2020 End: 06-54-4383Aylxqiw smoking statusHeavy tobacco smoker (finding)[facility] 05-26-2023 End: 17-40-1887Rcd [facility]igned [facility]: 12-16-2020 End: 71-33-4080Bzaunfs smoking status NHISSmoker (finding)[facility]: 79-76-1190Tmi Assigned At [facility] CenterTobacco smoking statusNeverExecutive [facility]rology of [facility] BellevueStart: 07-12-1994 End: 61-43-1181Qqwoqjc smoking status NHISSmokes tobacco dailyNOMS Healthcare Start: 71-84-5342Isuaosh of tobacco useCigarette SmokerNOMS HealthcareStart: 08-19-2023 End: 12-78-9064Sitalxoouq smoked current (pack per day) - Reported0.5N[facility] HealthcareStart: 14-33-4377Nictzbf intakeNot AskedNOLA HealthcareStart: 07-38-9807Jxkqqwx CommentSmokes 6-10 cigs/day.[facility] HealthcareStart: 05-25-2023 Alcohol Commentcaffeine intake: 2-3 cups per day.[facility] HealthcareStart: 86-46-4567Etmtji identityIdentifies as female gender (finding)[facility] Start: 29-40-1128Kabckj orientationHeterosexual (finding)[facility] HealthcareStart: 33-84-9596Lpnyykw use and exposureSmokeless tobacco non-userNOLA Healthcare Start: 05-04-2024 End: 71-76-0271Qcdemojnf beverage intakeEx-drinker (finding)[facility] Start: 10-23-2009 End: 42-20-4930LtoEksrch (finding)[facility] Medical Equipment Procedure CodeEquipment CodeEquipment Original TextEquipment IdentifierDatesFDA Start: 19-53-8277OULPIOJA ARTHROSCOPY W/ POSSIBLE REPAIR Beatriz MILLER, Michael A 05/30/21 Non Biological Shoulder RFDAStart: 30-32-7850XMNKEXYK ARTHROSCOPY W/ POSSIBLE REPAIR Brown DO, Michael A 05/30/21 Non Biological Shoulder RFDAStart: 35-12-3016CWQHNEFF ARTHROSCOPY W/ POSSIBLE REPAIR Brown DO, Michael A 05/30/21 Non Biological Shoulder RFDAStart: 84-19-5587OQVTBWJM ARTHROSCOPY W/ POSSIBLE REPAIR Brown DO, Michael A 05/19/24 Unknown Shoulder RFDAStart: 11-10-0465QCVUBPKJ ARTHROSCOPY W/ POSSIBLE REPAIR Brown DO, Michael A 05/30/21 Non Biological Shoulder RFDAStart: 27-83-8420ONUAHIYF ARTHROSCOPY W/ POSSIBLE REPAIR Brown DO, Michael A 05/19/24 Unknown Shoulder RFDAStart: 05-19-2024 Functional Status CspgAzdpjfhgxsDlgzwrPqybrvzy23-49-5085Fkvutipcha StatusPark[facility] 11-23-2021 to 04-16-2025 Note Date & HkrwKfjaThmoomoa22-20-9054 History of Present illness Narrative* Michael Henderson, DO - 04/16/2025 9:00 AM EDT Images from the original note were not included. @KYLEE@ Archana Joy is a 49 y.o. female who presents for Pain and Follow-up of the Left Shoulder HPI: History of Present Illness The patient is a 49-year-old right-hand dominant female who presents today for a follow-up on her left shoulder. She had an MRI completed on 04/09/2025. She reports no improvement in her left shoulder condition. She experiences a pulling sensation whenlifting her arm, which intensifies upon lowering it, almost as if something is being pinched internally. This sensation is particularly severe at night, disrupting her sleep. She has been using a cryo cuff for relief. SUBJECTIVE: MEDICATIONS: Current Outpatient Medications Medication Instructions albuterol (2.5 MG/3ML) 0.083% nebulizer solution albuterol HFA 90 mcg/act inhaler ciclopirox (Penlac) 8 % solution cyanocobalamin (Vitamin B-12) 1000 MCG tablet diazePAM (VALIUM) 5 mg, Oral, Nightly PRN estradiol (Vivelle-DOT) 0.025 MG/24HR 1 patch, 2 times weekly famotidine (PEPCID) 20 mg, Daily FLUoxetine (PROzac) 40 MG capsule fluticasone (Flonase) 50 MCG/ACT nasal spray Every 24 hours fluticasone-salmeterol (Advair HFA) 45-21 MCG/ACT inhaler folic acid (Folvite) 1 MG tablet Journavx 50 mg, Oral, Every 12 hours, For the first dose, take 2 tablets (100 mg) on an empty stomach at least 1 hour before or 2 hours after food. Starting 12 hours after the initial dose, take 1 tablet (50 mg) every 12 hours with or without food. LORazepam (Ativan) 0.5 MG tablet Every 24 [...] ARTHROSCOPY Right 05/19/2024 ARCR w/JAB THYROIDECTOMY, PARTIAL TOTAL SHOULDER ARTHROPLASTY 2020 TUBAL LIGATION Bilateral FAMILY HISTORY: Family History Problem Relation Name Age of Onset Cervical cancer Mother Diabetes Paternal Grandmother Rolando Cancer Paternal Grandmother Rolando Heart disease Paternal Grandfather Duy SOCIAL HISTORY: Social History Tobacco Use Smoking status: Every Day Current packs/day: 0.50 Average packs/day: 0.5 packs/day for 30.8 years (15.4 ttl pk-yrs) Types: Cigarettes Start date: 07/12/1994 Smokeless tobacco: Never Tobacco comments: Smokes 6-10 cigs/day. Vaping Use Vaping status: Never Used Substance Use Topics Alcohol use: Not Currently Comment: caffeine intake: 2-3 cups per day. Drug use: Not Currently Depression: Not on file REVIEW OF SYMPTOMS: Review of Systems The review of systems, history and current medications list are all reviewed today. OBJECTIVE: Visit Vitals Ht 5' 2 Wt 127 lb BMI 23.23 kg/m OB Status Unknown Smoking Status Every Day BSA 1.59 m Physical Exam Alert and oriented, no acute distress. Mood and affect are appropriate. Ambulating independently. Gait is nonantalgic. Left shoulder: Active forward elevation to 90 degrees, internal rotation to T12, passive forward flexion to 90 degrees, abduction 60, ER 60. No weakness with forward flexion, ER, IR. No kwasi deformity. Positive whipple, positive obriens, positive Neer Right shoulder: Well-healed arthroscopy portal, active arm raise overhead, no Kwasi deformity, no weakness with forward flexion, external rotation, belly press, resisted supination, passive forward flexion 170 degrees, abduction 90 degrees, external rotation 90 degrees, internal rotation to mid thoracics HEENT The skull is normocephalic. There is [...] and standing position. Ortho Exam Results Imaging - MRI of the left shoulder: 04/09/2025 [facility] report and images reviewed. Mild inflammatory changes at the AC joint with small spur off the inferior aspect of the distal clavicle resulting in impingement of the underlying cuff. Rotator cuff is intact. No cuff atrophy. ASSESSMENT AND PLAN: I reviewed the history, physical exam, diagnostic studies, and diagnosis with the patient. Assessment & Plan 1. Adhesive capsulitis, Outlet impingement, left shoulder. A left shoulder arthroscopy with lysis of adhesions and manipulation under anesthesia, subacromial decompression and distal clavicle excision is planned. If necessary, biceps tenodesis will be performed. Post-surgery, physical therapy will start the next day to improve mobility and prevent stiffness recurrence. The patient is advised to check the functionality of her cryo cuff before the surgery. I reviewed the risk, benefits, complications, alternatives, [...] help improve visualization and minimize blood loss. Journavx will be prescribed postoperatively along with regular postop medications. A total of 30 to 39 minutes was spent on this patient encounter which included chart review, check in, nurse triage, history taking, physical examination, diagnostic study review, patient counseling and discussion, entering information into the patient's medical record, and coordinating patient care. Diagnoses and all orders for this visit: Left shoulder pain, unspecified chronicity - Ambulatory referral to Physical Therapy; Future Michael Henderson D.O. Attestation This note was created using voice recognition through [employer]. documented in this encounterSaint Mary's Hospital of Blue SpringsYqlrarmubv98-73-7824 History of Present illness Narrative* Michael Henderson DO - 04/02/2025 9:15 AM EDT Images from the original note were not included. @ENCDATE@ Archana Rufino is a 49 y.o. female who presents for Pain of the Left Shoulder HPI: History of Present Illness The patient is a 49-year-old right-hand dominant female who presents for a new problem today with the left shoulder. She started to have pain in the left shoulder about 3 months ago. The pain is located at the posterior aspect of the shoulder, radiating into the trapezius and axillary region. She presented to the emergency department for this pain on 03/05/2025. She received a cortisone injection, was prescribed a course of oral prednisone, and participated in physical therapy. None of these measures have provided any improvement in her symptoms. She reports no specific injury. She reports no history of diabetes or thyroid disease. PAST SURGICAL HISTORY: Right shoulder arthroscopy, subacromial decompression, distal clavicle excision, mini open biceps tenodesis on 05/30/2021. Right shoulder arthroscopy, rotator cuff repair, distal clavicle co-planning on 05/19/2024. SUBJECTIVE: MEDICATIONS: Current Outpatient Medications Medication Instructions albuterol (2.5 MG/3ML) 0.083% nebulizer solution albuterol HFA 90 mcg/act inhaler ciclopirox (Penlac) 8 % solution cyanocobalamin (Vitamin B-12) 1000 MCG tablet diazePAM (VALIUM) 5 mg, Oral, Nightly PRN estradiol (Vivelle-DOT) 0.025 MG/24HR 1 patch, 2 times weekly famotidine (PEPCID) 20 mg, Daily FLUoxetine (PROzac) 40 MG capsule fluticasone (Flonase) 50 MCG/ACT nasal spray Every 24 hours fluticasone-salmeterol (Advair HFA) 45-21 MCG/ACT inhaler folic acid (Folvite) 1 MG tablet Journavx 50 mg, Oral, Every 12 hours, For the first dose, take 2 tablets (100 mg) on an empty stomach at least 1 hour before or 2 hours after food. Starting 12 hours after the initial dose, take 1 tablet (50 mg) every 12 hours with or without food. montelukast (Singulair) 10 MG tablet Every 24 [...] ARTHROSCOPY Right 05/19/2024 ARCR w/JAB THYROIDECTOMY, PARTIAL TOTAL SHOULDER ARTHROPLASTY 2020 TUBAL LIGATION Bilateral FAMILY HISTORY: Family History Problem Relation Name Age of Onset Cervical cancer Mother Diabetes Paternal Grandmother Rolando Cancer Paternal Grandmother Rolando Heart disease Paternal Grandfather Duy SOCIAL HISTORY: Social History Tobacco Use Smoking status: Every Day Current packs/day: 0.50 Average packs/day: 0.5 packs/day for 30.7 years (15.4 ttl pk-yrs) Types: Cigarettes Start date: 07/12/1994 Smokeless tobacco: Never Tobacco comments: Smokes 6-10 cigs/day. Vaping Use Vaping status: Never Used Substance Use Topics Alcohol use: Not Currently Comment: caffeine intake: 2-3 cups per day. Drug use: Not Currently Depression: Not on file REVIEW OF SYMPTOMS: Review of Systems The review of systems, history and current medications list are all reviewed today. OBJECTIVE: Visit Vitals Ht 5' 2 Wt 127 lb BMI 23.23 kg/m OB Status Unknown Smoking Status Every Day BSA 1.59 m Physical Exam General: The patient is ambulating independently. She is alert and oriented, showing no signs of acute distress. Mood and affect are appropriate. Musculoskeletal: Left shoulder: Active forward flexion to 140 degrees, active abduction to 60 degrees with scapulothoracic compensation, passive forward flexion 120 degrees, abduction 75 degrees, external rotation 75degrees, external rotation with elbow at side 40 degrees, internal rotation to L2 Right shoulder: Well-healed arthroscopy portal, active arm raise overhead, no Kwasi deformity, no weakness with forward flexion, external rotation, belly press, resisted supination, passive forward flexion 170 degrees, abduction 90 degrees, external rotation 90 degrees, internal rotation to mid thoracics Ortho Exam Results Imaging - X-ray of the left shoulder (Grashey, Zanca, and axillary views): 04/02/2025, saved to permanent medical record. X-ray of the left shoulder (AP, internal and external rotation views): 03/05/2025, Glenohumeral joint spaces preserved. Acromiohumeral interval within normal limits. Moderate arthritic changes at the AC joint, type II acromion. Visualized lung huynh are clear. ASSESSMENT AND PLAN: I reviewed the history, physical exam, diagnostic studies, and diagnosis with the patient. Assessment & Plan 1. Adhesive capsulitis, left shoulder. Information from [facility] about the patient's condition was provided. A prescription for Jornavx was provided today with detailed instructions on how to take the medication. An MRI of the left shoulder will be obtained to further evaluate the condition and determine the next steps in management. Therapeutic goals include reducing pain and improving shoulder mobility. Follow-up: She will follow up after the MRI has been completed to review the results and for further recommendations. A total of 30 to 39 minutes was spent on this patient encounter which included chart review, check in, nurse triage, history taking, physical examination, diagnostic study review, patient counseling and discussion, entering information into the patient's medical record, and coordinating patient care. Diagnoses and all orders for this visit: Left shoulder pain, unspecified chronicity - XR shoulder 2+ views left - Suzetrigine (Journavx) 50 MG tablet; Take 50 mg by mouth every 12 (twelve) hours for 14 days For the first dose, take 2 tablets (100 mg) on an empty stomach at least 1 hour before or 2 hours after food. Starting 12 hours after the initial dose, take 1 tablet (50 mg) every 12 hours with or withoutfood. Michael Henderson D.O. Attestation This note was created using voice recognition through [employer]. documented in this encounterSaint Mary's Hospital of Blue SpringsBudwdrrmfo11-04-1489 Evaluation note* Diagnosis Onset Date Resolution Status Admit Date Breast mass, right acuteMarch 2024 10:43am [facility] Work Phone: 1(759) 293-909103-21-2025 [facility] [place] [address] [place] [address] Ultrasound Report Signed Patient: Archana Joy MR#: [id number] : 1975 Acct:[id number] Age/Sex: 48 / F ADM Date: 5 Loc: [facility] Room: Type: [facility] Attending Dr: Rufina Rubio ACUTE CARE NURSING ASSISTANT-C Ordering Provider: Rufina Rubio Date of Service: 09/29/24 US/US biopsy RT 1st lesion guid: R92.8 ([id number]) MM/MM post biopsy RT w/CAD: CLIP PLACEMENT [...] Dara Hardy M.D.09/29/2024 11:50 AM Dictation Location: [facility] Tech: Funmilayo Lindsey Cortez Transcribed By: JORGE 09/29/24 1150 Dictated By: Dara Hardy MD 09/29/24 1102 Signed By: 09/29/24 1150 [facility] Work Phone: 1(949) 574-265903-14-2025 Radiology Diagnostic study [facility] Main [place] [address] [place] [address] Ultrasound Report Signed Patient: Archana Joy MR#: [id number] : 1975 Acct:[id number] Age/Sex: 48 / F ADM Date: 5 Loc: [place] Room: Type: [facility] Attending Dr: Rufina Rubio ACUTE CARE NURSING ASSISTANT-C Ordering Provider: Rufina Rubio Date of Service: 09/22/24 US/US breast BI limited: Breast lump in female;Breastcancer screening bymammogram ([id number]) MM/MM diagnostic mammo BI w/CAD: Breast lump [...] Gold Jr., D.O.09/22/2024 10:15 AM Dictation Location: [facility] Tech: Zo Woodall Transcribed By: JORGE 09/22/24 1015 Dictated By: Joe Gold Jr, DO 09/22/24 1000 Signed By: 09/22/24 1015 [facility]03-12-2025 Radiology Diagnostic study note [facility] Main [place] [address] [place] [address] Ultrasound Report Signed Patient: Archana Joy MR#: [id number] : 1975 Acct:[id number] Age/Sex: 48 / F ADM Date: 5 Loc: Room: Type: [facility] Attending Dr: Rufina Rubio ACUTE CARE NURSING ASSISTANT-C Ordering Provider: Rufina Rubio Date of Service: 09/20/24 US/US pelvic complete: Recurrent UTI;Pelvic pain in female ([id number]) US/US transvaginal: PELIVIC PAIN IN FEMALE Copies [...] Gold Jr., D.O.09/20/2024 1:50 PM Dictation Location: [place] [address] Tech: Bethany Santacruz Transcribed By: JORGE 09/20/24 1350 Dictated By: Joe Gold Jr, DO 09/20/24 1348 Signed By: 09/20/24 1350 [facility]03-12-2025 Radiology Diagnostic study note [facility] Main [place] [address] [place] [address] Ultrasound Report Signed Patient: Archana Joy MR#: [id number] : 1975 Acct:[id number] Age/Sex: 48 / F ADM Date: 5 Loc: Room: Type: [facility] Attending Dr: Rufina Rubio ACUTE CARE NURSING ASSISTANT-C Ordering Provider: Rufina Rubio Date of Service: 09/20/24 US/US bladder: Recurrent UTI Copies to: Rufina Rubio~ BLADDER ULTRASOUND CLINICAL HISTORY: UTI. COMPARISON: CT abdomen and pelvis 07/22/2022 FINDINGS: The urinary bladder is partially distended with a volume of 239.8 cm3 ml. No shadowing stone or focal lesion. No significant postvoid residual. US/US bladder IMPRESSION: No acute findings. Impression dictated by: Joe Gold Jr., DCalvin09/20/2024 1:48 PM Dictation Location: [place] [address] Tech: Bethany Neeta Transcribed By: JORGE 09/20/24 1348 Dictated By: Joe Gold Jr, DO 09/20/24 1348 Signed By: 09/20/24 1348 [facility]02-18-2025 Telephone encounter Note* Telephone Encounter - Belinda Buckner - 08/29/2024 8:41 AM EST Called and informed Dr. Beatriz Reyes's nurse, of attempts; she said she'd inform Dr. Henderson. [facility] Jbqzywhbei26-11-5552 Miscellaneous Notes* Telephone Encounter - Belinda Buckner [...] PT. She had seen Dr. Henderson on 2 for fu, then cx, NS, cx her PT's that followed. Requested a call back to check status and rs off providers recommendation. documented in this encounterNOCapital Region Medical CenterSflgofmlor63-55-1243 Telephone encounter Note* Telephone Encounter - Belinda Buckner - 08/28/2024 1:30 PM EST Tried to contact but had to lm requesting call back dillon to verify status and if more PT is needed. Did include this is my final attempt. [facility] Pyibuowkmk06-99-1142 Telephone encounter Note* Telephone Encounter - Belinda Buckner - 08/22/2024 10:40 AM EST Tried to contact to offer rs PT. She had seen Dr. Henderson on 08/14 for fu, then cx, NS, cx her PT's that followed. Requested a call back to check status and rs off providers recommendation. [facility] Pcflrnhzpv12-07-8143 History of Present illness Narrative* Michael Henderson DO - 08/14/2024 10:30 AM EST Images [...] recently introduced to a new exercise involving rizlrp-vib-nmdv movements, which she reports has been progressively [...] note was created using voice recognition through [employer]Mission. documented in this encounterSaint Mary's Hospital of Blue SpringsIwnzporvkd29-15-9371 Telephone encounter Note* Telephone Encounter - Belinda Buckner - 07/13/2024 1:27 PM EST Contacted re: missed PT. She noted she had cx over reminder due to testing positive for Covid. She said she has a fu w/ doctor scheduled for recheck. Her PT today and 07/17 we cx, and I requested a call back post recheck to confirm PT on 07/20 or cx due to status. [facility] Blue SpringsQitpyuwyel40-73-1109 Miscellaneous Notes* Telephone Encounter - Belinda Buckner - 07/13/2024 1:27 PM EST Contacted re: missed PT. She noted she had cx over reminder due to testing positive for Covid. She said she has a fu w/ doctor scheduled for recheck. Her PT today and 07/17 we cx, and I requested a call back post recheck to confirm PT on 07/20 or cx due to status. documented in this encounterSaint Mary's Hospital of Blue SpringsGecedtafrt73-94-6592 History of Present illness Narrative* Michael Henderson, DO - 06/27/2024 3:15 PM EST Images from the original note were not included. @ENCDATE@ Archana Rufino is a 48 y.o. female who presents for Post-op of the Right Shoulder (Rt shoulder [facility] 05/19/24) HPI: History of Present Illness The patient is 5.5 weeks status post right shoulder arthroscopy, rotator cuff repair, and distal clavicle coplaning, surgery date 05/19/2024. She expresses readiness to resume rehabilitation at [facility], a facility she has previouslyutilized. [...] Ambulatory referral to Physical Therapy; Future Michael Vergara.Dayne. Attestation This note was created using voice recognition through [employer]Mission. documented in this encounterSaint Mary's Hospital of Blue SpringsSvlnrbnpla58-43-7882 History of Present illness Narrative* Michael Henderson [...] RIGHT SHOULDER Portals benign. No erythema. No kwasi deformity. Elbow and wrist flexion and extension [...] note was created using voice recognition through [employer]. documented in this encounterSaint Mary's Hospital of Blue SpringsWlgcuctjbq41-18-7354 NoteProgress Note-Physician Patient: ARCHANA JOY Age: 48 years Sex: Female : 1975 Associated Diagnoses: None Author: Odilon ANSARI, Akbar Escobar Postoperative Information Postoperative disposition: Postoperative disposition: To PACU. Optimetrix number: Optimetrix number [id number]. Anesthetic utilized: General. Regional: Interscalene Block. Health [...] Discharge when meets criteria ( To home ).[facility]'S HospitalComment on above:Result Comment: Electronically Signed By: Akbar Donald MD\.br\Date and Time Signed: 05/19/24 15:55 EST 05-19-2024 Evaluation + Plan noteExtracted from:Title:ANES Post-operative Note---GeneralAuthor:Akbar Donald MDDate:05/19/24 Plan Transfer/Discharge: Transfer/Discharge Discharge when meets criteria ( To home ). Extracted from:Title:ANES Pre-operative Note uthor:Akbar Donald MDDate: 05/18/24 Plan [place] [employer]esthesi[employer] (ASA) physical status classification: Class III. Anesthetic Preoperative Plan: Anesthesia General. Regional interscalene brachial plexus block.[facility] 11-08-2024 Hospital Discharge instructions Patient Education 05/19/2024 11:08:40 Shoulder Cryocuff Patient Instructions - FT (CUSTOM) 05/19/2024 11:08:28 Post Op Patient Instructions - FT (CUSTOM) 05/19/2024 07:57:19 Jessica Henderson - After Your Shoulder Arthroscopy (Custom) [place], [place] [facility] AFTER YOUR SHOULDER ARTHROSCOPY [...] your appointment. Michael Henderson, DO [facility] [address] [place], [place] [address] Reviewed: Follow Up Care 04/06/2024 15:53:21 With:Michael Beatriz Address: [address] [place] [phone] Business (1) When:05/30/2024 15:15:00 Comments:Call for any problems. [facility] [phone] NotePatient Education - Text [place] [facility] AFTER YOUR SHOULDER ARTHROSCOPY [...] your appointment. Michael Henderson, DO [facility] [address] [place] [address] Reviewed: [facility]11-08-2024 NoteProgress Note-Physician Patient: ARCHANA JOY Age: 48 [...] Acute cystitis with hematuria / SNOMED CT 882306630 / Confirmed Bipolar disorder / SNOMED CT 26248404 / Confirmed Chronic obstructive lung disease / SNOMED CT 93134552 / Confirmed History of kidney stones / SNOMED CT 6970536210 / Confirmed Impingement syndrome of right shoulder / SNOMED CT 850747329 / Confirmed Recurrent UTI / SNOMED CT 575654476 / Confirmed Smoker 11-JAN-2014 12:37:00<$> / SNOMED CT [id number] / Confirmed Added secondary to documentation in Social History. Resolved: anxiety / SNOMED CT 47517923 Resolved: Depression / SNOMED CT 154146584 Resolved: Headache / SNOMED CT 27129020 Resolved: MIGRAINE / SNOMED CT 6156584077 Canceled: Acute back pain / SNOMED CT 581803765 Canceled: Acute UTI / SNOMED CT [id number] Canceled: Endometriosis / SNOMED CT 3298154255 Canceled: kidney stones / SNOMED CT 227210649 Canceled: Pancreatitis / SNOMED CT 205577928 Canceled: Vaginal discharge / SNOMED CT 788829175 Canceled: Vaginal pain / ICD-9-CM 625.9 Canceled: Vomiting / SNOMED CT 0123345239, Active Problems (7) Acute cystitis with hematuria Bipolar disorder Chronic obstructive lung disease History of kidney stones Impingement syndrome of right shoulder Recurrent UTI Smoker Histories Past Medical History: Resolved MIGRAINE (9421984611): Resolved. anxiety (15298102): Resolved. Headache (57718730): Resolved. Depression (400843404): Resolved. Family History: Kidney stones Sister Procedure history: Arthroscopy of shoulder (327406425) on 05/30/2021 at 45 Years. Vaginal hysterectomy (787247739). Social History Social & Psychosocial Habits Alcohol 05/04/2024 Risk Assessment: Denies Alcohol Use 05/04/2024 Use: Current Comment: denies - 11/11/2020 20:16 - Kylie Robertson RN Substance Abuse 05/04/2024 Risk Assessment: Denies Substance Abuse 05/04/2024 Use: Current Comment: denies - 11/11/2020 20:16 - Kylie Robertson RN Tobacco 05/04/2024 Type: Cigarettes Comment: 1ppd - 09/08/2014 18:45 - Kimberlyn Monroy RN 05/04/2024 Risk Assessment: High Risk 05/04/2024 Tobacco Use: 10 or more cigarettes (1/ Smokeless tobacco use: Never Type: Cigarettes . Physical Examination No qualifying data available Airway: Mallampati classification: II (soft palate, fauces, uvula visible). Respiratory: adequate air exchange. Cardiovascular: Regular rhythm. Review / Management Results review: No qualifying data available . Plan [place] [employer] Anesthesiologists (ASA) physical status classification: Class III. Anesthetic Preoperative Plan: Anesthesia General. Regional interscalene brachial plexus block.[facility] HospitalComment on above:Result Comment: Electronically Signed By: Odilon ANSARI, Akbar Escobar\.br\Date and Time Signed: 05/19/24 08:18 [id number] History of Present illness Narrative* Michael Henderson, DO - 05/04/2024 1:30 PM EDT Images from the original note were not included. @ENCDATE@ Archana Joy is a 48 y.o. female who presents for No chief complaint on file. HPI: History of Present Illness The patient is a 48-year-old tbmmt-vawj-bhtowfpa female here to discuss moving forward with [...] Diabetes Paternal Grandmother Mozell Cancer Paternal Grandmother Rolando Heart disease Paternal [...] external rotation lag. Negative belly press. No kwasi deformity. Good strength with resisted supination. Positive [...] rotation, resisted supination, or forward flexion. Negative Concord's. Negative Neer/Stone impingement. No tenderness over the [...] Ortho Exam Results MRI of the shoulder [facility] 04/03/2024 shows a high grade partial thickness [...] note was created using voice recognition through [employer]. documented in this encounterSaint Mary's Hospital of Blue [id number] History of Present illness Narrative* Michael Henderson DO - 04/06/2024 2:30 PM EDT Images from the original note were not included. @ENCDATE@ Archana Joy is a 48 y.o. female who presents for Pain of the Right Shoulder HPI: History of Present Illness The patient is a 48-year-old bmauc-iglv-vbmlyhfk female here today to follow up on [...] Onset Cervical cancer Mother Diabetes Paternal Grandmother Abelell Cancer Paternal Grandmother Rolando Heart disease Paternal [...] external rotation lag. Negative belly press. No kwasi deformity. Good strength with resisted supination. Positive [...] rotation, resisted supination, or forward flexion. Negative Concord's. Negative Neer/Stone impingement. No tenderness over the [...] Exam Results Imaging MRI of the shoulder [facility] 04/03/2024 shows a high grade partial thickness [...] undergo presurgical testing upon her return from [place]. Surgery is scheduled for 05/19/2024. She is [...] note was created using voice recognition through [employer]. documented in this encounterSaint Mary's Hospital of Blue [id number] History of Present illness Narrative* Michael Henderson DO - 03/07/2024 10:30 AM EDT Images from the original note were not included. @KYLEE@ Archana Joy is a 48 y.o. female who presents for Pain of the Right Shoulder HPI: History of Present Illness The patient is a 48-year-old ozjre-bkoz-nwouzdgb female who is here today to follow up on her rightshoulder. She was prescribed oral prednisone and initiated physical therapy at her last visit on 01/25/2024. She reports no improvement in her condition. In the interim, she was hospitalized due to her COPD. During this time, she was administered steroids via her breathing machine. [place], [place] [...] Diabetes Paternal Grandmother Mozell Cancer Paternal Grandmother Rolando Heart disease Paternal [...] external rotation lag. Negative belly press. No kwasi deformity. Good strength with resisted supination. Positive [...] rotation, resisted supination, or forward flexion. Negative Concord's. Negative Neer/Stone impingement. No tenderness over the AC joint. Negative cross-arm adduction. Negative Speed's and Yergason's. No instability. Ortho Exam Results ASSESSMENT AND PLAN: I reviewed the history, physical exam, diagnostic studies, and diagnosis with the patient. Assessment & Plan 1. AC joint arthropathy, right shoulder An MRI of the right shoulder has been ordered at the imaging center in [place]. She is advised to continue with exercises [...] note was created using voice recognition through [employer]. documented in this encounterSaint Mary's Hospital of Blue [id number] Hospital Discharge instructions Patient Education 11/24/2021 00:26:31 [...] to strengthen the arm. General instructions Take jtuh-lbj-suqmqca and prescription medicines only as told by [...] 04/07/2006 Document Revised: 01/10/2019 Document Reviewed: 01/10/2019 [employer] Patient Education 2020 [employer]. Follow Up Care 11/23/2021 23:20:28 With:Cande Hinds Address: [address] [place] [address]- Business (1) When:12/01/2021 only if needed [facility]05-15-2022 Evaluation + Plan noteExtracted from: Title:ED NoteAuthor:Venancio Orozco DODate:11/23/21 Acute pain of right shoulder (M25.511: Pain in right shoulder) Orders: acetaminophen-oxycodone, 1 tab(s), Tab, Oral, Once, Stop date 11/23/21 23:37:00 EDT, STAT, Start date 11/23/21 23:37:00 EDT Sling Apply XR Shoulder Complete Right [facility] Future Appointments Appointment Date:05/19/2024 10:30:00 AM Scheduled Provider: Location:[facility] Appointment Type:Surgery FT [facility] Evaluation + Plan note Future Appointments Appointment Date:02/14/2025 10:00:00 AM Scheduled Provider: Location[facility] Appointment Type:US Abdominal/Pelvis (FT) Diagnostic Tests Pending * [facility] 11/14/24 Future Scheduled Tests Radiology* US Pelvis Non-OB Complete 02/14/25 * US Transvaginal Non-OB 02/14/25 [facility] Evjssation noteNo assessment information available [facility] Work Phone: Evaluation note* Diagnosis Traumatic [...] in this encounter [facility]* Diagnosis Left shoulder pain, unspecified chronicity- Primary documented in this encounter [facility] HealthcareEvaluation note* Diagnosis Left shoulder pain, unspecified chronicity documented in this encounter [facility] HealthcareHospital course Narrative No data available for this section [facility] Additional Instructions As we [...] from the other day did show an infection.[facility] Work Phone: Hospital Discharge instructions No data available for this section [facility] Progress note No data available for this section [facility] Reason for referral (narrative)No reason for referral information availableAultman Hospital Work Phone: Redogp for visit Narrative* Rehabilitation - Outpatient (Routine) - AuthorizedSpecialtyDiagnoses / ProceduresReferred By ContactReferred To ContactPhysical Therapy Diagnoses S/P arthroscopy of right shoulder Procedures NV OFFICE/OUTPATIENT [facility] Michael Henderson, DO [address] [place] [address] Phone: tel: fax: [facility] [address] [place] [address] Phone: tel: fax: Referral IDStatusReasonStart DateExpiration DateVisits RequestedVisits [id number] Specialty Services Required 929 [facility] HealthcareReason for visit Narrative* Rehabilitation - Outpatient (Routine) - AuthorizedSpecialtyDiagnoses / ProceduresReferred By ContactReferred To ContactPhysical Therapy Diagnoses S/P arthroscopy of right shoulder Procedures NV THER PX 1/> AREAS EACH 15 MIN NEUROMUSC REEDUCA NV THERAPEUTIC PX 1/> AREAS EACH 15 MIN EXERCISES NV MANUAL THERAPY TQS 1/> REGIONS EACH 15 MINUTES PHYS/OCC THERAPY SS Michael Henderson, DO [address] [facility] [place] [address] Phone: tel: fax: [facility] [address] [facility] [address] [place] [address] Phone: tel: fax: Referral IDStatusSent[facility] DateExpiration DateVisits RequestedVisits [id number] Specialty Services Required 30 [facility] Chief Complaint and Reason for Visit Chief [...] mass, right September 29, 2024 10: 43am Chief Complaint Admit Date R23.2 E53.8 December 25, 2024 10:3 5am Chief Complaint Admit Date Z79.899, E53.8,R23.2 February 28, 2025 1 0:06am C left shoulder pain March 14, 2025 9:59am Advance Directives No Advanced Directives Records Found [...] Primary Care Provider, Family P rovider Active Malini Driscoll ProviderActive Team Status: Active Member Role Status Dates Services Family Health Family Provider Active Services [facility] Care ProviderActive Team Status: Inactive Member Role Status Dates Services Family Health Family Provider Active Rufina Rubio NP-Bita ProviderActive Team Status: Active Member Role Status Dates Services Family Health Family Provider Active Team Status: Inactive Member Role Status Dates Services Family Health Primary Care Provider, Family P rovider Active Isrrael Remy Jr ProviderActive Team Status: Inactive Member Role Status Dates Services Family Health Family Provider Active Malini Driscoll ProviderActiveNON [facility]Prfirst[facility] Care ProviderActive Team Status: Inactive Member Role Status Dates Services Family Health Family Provider Active Osmar Ellsworth ProviderActive Team Status: Inactive Member Role Status Dates Services Family Health Family Provider Active Brian Wood DOAttildefonso ProviderActiveTeam MemberRelationshipSpecialtyStart Date End Date Unallocated, Noms Provider [address] [place] [address] PCP [facility]05/26/23 Team Status: Inactive Member Role Status Dates [facility] Primary Care Provider Active Start: September 28, 2023 End: September 28, 2023Malini Driscoll Provider ActiveStart: September 28, 2023 End: September 28, 2023 Team Status: Inactive Member Role Status Dates Rufina Rubio NP-C Attending Provide r Active Start: February 02, 2024 End: February 02, 2024Team MemberRelationshipSpecialtyStart DateEnd Date Unallocated, Alon Rene MD [address] [place] [address] [facility]05/26/23 Rufina Rubio MD [address] [place] [address] Referring PhysicianNurse Practitioner01/06/24Team MemberRelationshipSpecialty Start DateEnd Date Unallocated, Alon Rene MD [address] [place] [address] [facility]05/26/23 Rufina Rubio MD [address] [place] [address] Referring PhysicianNurse Practitioner01/06/24Team MemberRelationshipSpecialty Start DateEnd Date Unallocated, Alon Rene MD [address] [place] [address] [facility]05/26/23 Rufina Rubio MD [address] [place] [address] Referring PhysicianNurse Practitioner01/06/24Team MemberRelationshipSpecialty Start DateEnd Date Unallocated, Alon Rene MD [address] [place] [address] PCP [facility]05/26/23 Rufina Rubio MD [address] [place] [address] Referring PhysicianNurse Practitioner01/06/24Te MemberRelationshipSpecialty Start DateEnd Date Unallocated, Alon Rene MD [facility] [place] [address] [facility]05/26/23 Rufina Rubio MD [address] [place] [address] Referring PhysicianNurse Practitioner01/06/24Te MemberRelationshipSpecialty Start DateEnd Date Unallocated, Alon Rene MD [address] [place] [address] [place] [address] [facility]05/26/23 Rufina Rubio MD [address] [place] [address] Referring PhysicianNurse Practitioner01/06/24Te MemberRelationshipSpecialty Start DateEnd Date Unallocated, Alon Rene MD [address] [place] [address] [place] [address] [facility]05/26/23 Rufina Rubio MD [address] [place] [address] Referring PhysicianNurse Practitioner01/06/24Te MemberRelationshipSpecialty Start DateEnd Date Unallocated, Alon Rene MD [facility] [place] [address] [facility]05/26/23 Rufina Rubio MD [address] [place] [address] Referring PhysicianNurse Practitioner01/06/24Te MemberRelationshipSpecialty Start DateEnd [place] Unallocated[place] [address] [place], [place] [address] [address] [facility]05/26/23 Rufina Rubio MD [address] [place] [address] Referring PhysicianNurse Practitioner01/06/24Te MemberRelationshipSpecialty Start DateEnd Date Unallocated, Alon Rene MD [address] [place] [address] [facility]05/26/23 Rufina Rubio MD [address] [place] [address] Referring PhysicianNurse Practitioner01/06/24Te MemberRelationshipSpecialty Start DateEnd [place] [address] [place] [address] [facility]05/26/23 Rufina Rubio MD [address] [place] [address] Referring PhysicianNurse Practitioner01/06/24Te MemberRelationshipSpecialty Start DateEnd Date Unallocated, Alon Rene MD [address] [place] [address] [facility]05/26/23 Rufina Rubio MD [address] [place] [address] Referring PhysicianNurse Practitioner01/06/24Team MemberRelationshipSpecialty Start DateEnd Date Unallocated, Alno Rene MD [address] [place] [address] PCP [facility]05/26/23 Rufina Rubio NP [facility] [place] [address] Referring PhysicianNurse Practitioner01/06/24Team MemberRelationshipSpecialty Start DateEnd Date Unallocated, Alon Rene MD [address] [place] [address] [place] [address] PCP [facility]05/26/23 Rufina Rubio NP [address] [place], [place] [address] [address] Referring PhysicianNurse Practitioner01/06/24Te MemberRelationshipSpecialty Start DateEnd Date Unallocated, Alon Rene MD [facility] [place] [address] [facility]05/26/23 Rufina Rubio NP [facility] [place] [address] Referring PhysicianNurse Practitioner01/06/24Te MemberRelationshipSpecialty Start DateEnd Date Unallocated, Alon Rene MD [facility] [place] [address] [facility]05/26/23 Rufina Rubio NP [facility] [place] [address] Referring PhysicianNurse Practitioner01/06/24Team MemberRelationshipSpecialty Start DateEnd Date Unallocated, Alon ProviderMD [address] [place] [address] [facility]05/26/23 Rufina Rubio NP [address] [place] [address] Referring PhysicianNurse Practitioner01/06/24Team MemberRelationshipSpecialty Start DateEnd Date Unallocated, Alon Rene MD [address] [place] [address] [facility]05/26/23 Rufina Rubio NP [address] [place] [address] Referring PhysicianNurse Practitioner01/06/24 Team Status: Active Member Role Status Dates Services [facility] Family Provider Active STEPHANIE DriscollCPrima Care ProviderActive Team Status: Inactive Member Role Status Dates Rufina harrison , ACUTE CARE NURSING ASSISTANT-C Attending Provider Active Start: August 04, 2024 End: August 04, 2024 Team Status: Inactive Member Role Status Dates Rufina Rubio NP-C Primary Care Provider, Attending Provider Active Start: September 20, 2024 End: September 20, 2024 Team Status: Inactive Member Role Status Dates Rufina Rubio NP-C Primary Care Provider, Attending Provider Active Start: September 22, 2024 End: September 22, 2024 Team Status: Inactive Member Role Status Dates Rufina Rubio NP-C Primary Care Provider, Attending Provider Active Start: September 29, 2024 End: September 29, 2024 Team Status: Inactive Member Role Status Dates [facility] Primary Care Provider Ac tive Start: December 25, 2024 End: December 25[place] ProviderActiveStart: December 25, 2024 End: December 25, 2024 Team Status: Inactive Member Role Status Dates Pepe Guerra DO Attending Provider Active St art: February 28, 2025 End: February 28, 2025 Team Status: Active Member Role Status Dates Services [facility] Primary Care Provider Active Team Status: Inactive Member Role Status Dates Pepe Guerra DO Attending Provider Active St art: March 14, 2025 End: March 14, 2025[facility] Care ProviderActiveStart: March 14, 2025 End: March 14, 2025Team MemberRelationshipSpecialtyStart DateEnd Date Unallocated, Alon Rene MD [address] [facility] [place] [address] PCP - Bkhemzu63/15/23 Rufina Rubio NP [address] [place] [address] Referring PhysicianNurse Practitioner01/06/24Team MemberRelationshipSpecialty Start DateEnd [place] Un[place] [address] [place] [address] PCP - Kijdrcq04/15/23 Rufina Rubio NP [address] [place] [address] Referring PhysicianNurse Practitioner01/06/24Team MemberRelationshipSpecialty Start DateEnd Date Unallocated, Alon Rene MD [address] [place] [address] PCP - Pffpdia16/15/23 Rufina Rubio NP [facility] [place] [address] Referring PhysicianNurse Practitioner01/06/24 Goals (unrecognized section and content) Goals may be documented in a n alternate section INFORMATION SOURCE (unrecogn ized section and content) DATE CREATED AUTHOR 10/05/2022 [facility] DATE CREATED AUTHOR AUTHOR'S ORGANIZ ATION 05/06/2024 [facility] DATE CREATED AUTHOR AUTHOR'S ORGANIZ ATION 11/17/2024 [facility] DATE CREATED AUTHOR AUTHOR'S ORGANIZ ATION 03/31/2025 [facility] DATE CREATED AUTHOR AUTHOR'S ORGANIZ ATION 04/18/2025 [facility] DATE CREATED AUTHOR AUTHOR'S ORGANIZ ATION 05/01/2025 [facility] Reason for Visit (unrecogniz ed section and content) SbdsciYyxrnhhoBvmqte-svNnpztwJjdvkxwuGnzc-jdJbttawPmdmxpgdGvbzLofmorDjhklbtb Post-opRt shoulder [facility] 05/19/24ReasonOnset IltsLpkjyzskAerci10/02/2025 ReasonOnset DateCommentsre: More PT08/22/2024fu08/23/2024Final abfipxs1208/28/2024 ReasonCommentsPainFollow-up FOR RECORDS PERTAINING TO PATIENTS WHO ARE [...] BE BASED ON THE PRIMARY CLINICAL RECORDS. [facility] [employer] [facility]. provides no warranty or guarantee of the accuracy or completeness of information in this document.
--- OUTSIDE RECORDS SUMMARY | 2025-05-03 19:13 | XMS_ITS | Patient Health Record ---
Author Organization [employer] [facility] [employer] es Address [address] [place] [address] Care Team Providers Care Pet Ambassador Name Role Phone CharliePepe Primary Care Provider Rufina Rubio Unavailable [phone] Kylie Portillo Unavailable [phone] Amy Recio Unavailable [phone] Allergies Allergen (clinical drug ingredient) Drug/Non Drug Allergy documented on EMR Reaction Allergy Type Onset Date Status aspirin ASA (uncoded) rash Allergy ActiveAnaproxrashDrug AllergyActivemetronidazoleFlagylrashDrug AllergyActive HaldolanaphylaxisDrug AllergyActivemagnesium sulfateMagnesium Sulfatevomiting Drug AllergyActivemetoclopramideReglanrashDrug AllergyActivehydroxyzineVistaril vomitingDrug AllergyActiveketorolacKetorolachivesDrug AllergyActiveNon-steroidal anti-inflammatory agent (FN)NSAIDsrashDrug AllergyActivesulfacetamide SulfacetamiderashDrug AllergyActive Results Component Value Reference Range Flag Notes US pelvic complete Reviewed date:09/20/2024 02:16:55 PM Interpretation: Performing Lab: Notes/Report: [facility] Main [address] [address] Ultrasound Report Signed Patient: Ziggy Joy MR#: [id number] : 1975 Acct:[id number] Age/Sex: 48 / F ADM Date: 09/20/24 Loc: Room: Type: [facility] Attending Dr: Rufina Rubio NATURAL RESOURCES MANAGER-C Ordering Provider: Rufina Rubio Date of Service: 09/20/24 US/US pelvic complete: Recurrent UTI;Pelvic pain in female ([id number]) US/US transvaginal: PELIVIC PAIN IN FEMALE Copies [...] Gold Jr., D.OGideon09/20/2024 1:50 PM Dictation Location: [place] [address] Tech: Bethany Santacruz Transcribed By: JORGE 09/20/24 1350 Dictated By: Joe Gold Jr, DO 09/20/24 1348 Signed By: <Electronically signed by Joe Gold Jr, DO in OV> 09/20/24 1350 US bladder Reviewed date:09/20/2024 02:16:35 PM Interpretation: Performing Lab: Notes/Report: [facility] Main [place] [address] [place] [address] Ultrasound Report Signed Patient: Ziggy oJy MR#: [id number] : 1975 Acct:[id number] Age/Sex: 48 / F ADM Date: 09/20/24 Loc: Room: Type: [facility] Attending Dr: Rufina Rubio NATURAL RESOURCES MANAGER-C Ordering Provider: Rufina Rubio Date of Service: [...] Gold Jr., D.OGideon09/20/2024 1:48 PM Dictation Location: [place] [address] Tech: Bethany Santacruz Transcribed By: PWS 09/20/24 1348 Dictated By: Joe Gold Jr, DO 09/20/24 1348 Signed By: <Electronically signed by Joe Gold Jr, DO in OV> 09/20/24 1348 MM diagnostic mammo BI w/CAD Reviewed date:09/22/2024 10:21:51 AM Interpretation: Performing Lab: Notes/Report: [facility] Main [place] [address] [place] [address] Ultrasound Report Signed Patient: Ziggy Joy MR#: [id number] : 1975 Acct:[id number] Age/Sex: 48 / F ADM Date: 09/22/24 Loc: [place] Room: Type: [facility] Attending Dr: Rufina Rubio NATURAL RESOURCES MANAGER-C Ordering Provider: Rufina Rubio Date of Service: 09/22/24 US/US breast BI limited: Breast lump in female;Breast cancer screening by mammogram ([id number]) MM/MM diagnostic mammo BI w/CAD: Breast lump [...] grounds. Impression dictated by: Joe Gold Jr., D.OGideon09/22/2024 10:15 AM Dictation Location: [facility] Tech: Zo Cortés; Shauna Woodall Transcribed By: PWS 09/22/24 1015 Dictated By: Joe Gold Jr, DO 09/22/24 1000 Signed By: <Electronically signed by Joe Gold Jr, DO in OV> 09/22/24 1015 GNURI - Complicated Genitour inary Infection (HTRx) [...] testing is not performed at this lab. Wire Dropper to CFU/mL equivalent thresholds were established based on studies using known CFU/mL urine specimens performed at [facility] in [place], [place]. [facility] ([place] [address]; IA# [id number]; Deck Engine Operator Funmilayo Trevizo, PhD, [facility] This test was developed, and its performance characteristics determined by [facility]. It has not been cleared or approved [...] Antibiogram). Acinetobacter baumannii 0.000 19.961 - 24.689 p pm Acinetobacter baumanniiNot Lyfalfvm77.961 - 24.689 ppmAtopobium rvqguhz52.350 19.961 - 24.689 ppmAtopobium wrdybllScebxfbj11.961 - 24.689 ppmBVAB 2,3 (bacterial vaginosis associated bacteria 2, 3); Mobiluncus spp0.80750.961 - 24.689 ppmBVAB 2,3 (bacterial vaginosis associated bacteria 2, 3); Mobiluncus sppNot Eaguvvpe08.961 - 24.689 ppmCandida albicans, parapsilosis, tropicalis 0.29196.961 - 30.770 ppmCandida albicans, parapsilosis, tropicalisNot Detected 19.961 - 30.770 ppmCandida glabrata (Nakaseomyces glabratus)0.27668.000 - 32.138 ppmCandida glabrata (Nakaseomyces glabratus)Not Zlepzyvr40.000 - 32.138 ppm Yuki krusei (Pichia kudriavzevii)0.13391.000 - 32.271 ppmCandida krusei (Pichia kudriavzevii)Not Qmddhoda59.000 - 32.271 ppmChlamydia trachomatis0.000 23.000 - 31.467 ppmChlamydia trachomatisNot Vodlavvw74.000 - 31.467 ppm Citrobacter freundii0.85889.000 - 31.881 ppmCitrobacter freundiiNot Detected 23.000 - 31.881 ppmEnterobacter aerogenes, cloacae0.62366.000 - 31.535 ppm Enterobacter aerogenes, cloacaeNot Rrouivqv81.000 - 31.535 ppmEnterococcus faecalis, faecium0.14032.000 - 31.575 ppmEnterococcus faecalis, faeciumNot Isuivdqf19.000 - 31.575 ppmEscherichia coli19.31123.000 - 28.500 ppmEscherichia drsnOrabfddq99.000 - 28.500 ppmGardnerella vqctatfmj53.33818.961 - 24.689 ppm Gardnerella yajcumemeHhormsqx93.961 - 24.689 ppmKlebsiella pneumoniae, oxytoca 0.55484.000 - 30.500 ppmKlebsiella pneumoniae, oxytocaNot Cbohzbnb19.000 - 30.500 ppmMegasphaera (Types 1, 2)0.05669.961 - 24.689 ppmMegasphaera (Types 1, 2)Not Tdjwpqit87.961 - 24.689 ppmMorganella morganii0.28040.961 - 24.689 ppm Morganella morganiiNot Iqlnpmmk30.961 - 24.689 ppmNeisseria gonorrhoeae0.000 23.000 - 32.117 ppmNeisseria gonorrhoeaeNot Kpkvpkir97.000 - 32.117 ppmProteus mirabilis, vulgaris0.57409.000 - 28.500 ppmProteus mirabilis, vulgarisNot Quayhrvl10.000 - 28.500 ppmPseudomonas aeruginosa0.40471.000 - 28.500 ppm Pseudomonas aeruginosaNot Ykguqbbw13.000 - 28.500 ppmSerratia marcescens0.000 23.000 - 31.204 ppmSerratia marcescensNot Kndumiqw62.000 - 31.204 ppm Staphylococcus aureus0.16653.000 - 30.902 ppmStaphylococcus aureusNot Detected 26.000 - 30.902 ppmStreptococcus agalactiae (Group B Strep)0.91432.000 - 32.222 ppmStreptococcus agalactiae (Group B Strep)Not Jizmzcae60.000 - 32.222 ppm Streptococcus pyogenes (Group A strep)0.74220.961 - 24.689 ppmStreptococcus pyogenes (Group A strep)Not Ahaosate54.961 - 24.689 ppmTrichomonas vaginalis 0.25385.000 - 32.119 ppmTrichomonas vaginalisNot Ebnbdtvg94.000 - 32.119 ppm ermB, C; mefA25.95376.000 - 27.611 ppmermB, C; lpbYWmkmwyux94.000 - 27.611 ppm tet B, tet M26.64926.000 - 27.778 ppmtet B, tet SDhagfibw08.000 - 27.778 ppm Staphylococcus epidermidis, haemolyticus, lugdunensis0.15026.961 - 24.689 ppm Staphylococcus epidermidis, haemolyticus, lugdunensisNot Xqqikijq34.961 - 24.689 ppmStaphylococcus saprophyticus0.37502.961 - 24.689 ppmStaphylococcus saprophyticusNot Byemryah53.961 - 24.689 ppmMycoplasma genitalium0.34811.961 - 24.689 ppmMycoplasma genitaliumNot Wxqvcyzv49.961 - 24.689 ppmMycoplasma hominis 0.51454.961 - 24.689 ppmMycoplasma hominisNot Iuunykcf22.961 - 24.689 ppm Ureaplasma parvum0.03790.961 - 24.689 ppmUreaplasma parvumNot Lmiflcpr44.961 - 24.689 ppmUreaplasma urealyticum0.35587.961 - 24.689 ppmUreaplasma urealyticum Not Bgsgwols63.961 - 24.689 ppmUrinalysis automated Reviewed date:09/18/2024 10:34:57 AM Interpretation: Performing Lab: Notes/Report: Urine-ColororangeAppearancecloudySpecific Gravity1.030pH6.5OhodktwxqaFokbtee79 Occult Shiih41LnbjbtffijruYuddmotudjwv,Semi-Qn0.2Nitrite, UrineposKetonesnegWBC EsterasenegUrine Culture Reviewed date:08/06/2024 07:01:11 PM Interpretation: Performing Lab:, [facility], [address] [place] Notes/Report: Reason for Exam Urinary frequency S [...] THEY MAY BECOME RESISTANT TO ALL B-LACTAM DRUGS.[place] Count>100,000 [place] Count75,000Aerobic MICEscherichia coliAmikacin<16SAmoxacillin/K Clavulanate<8/4SAmpicillin<8SAmpicillin/Sulbactam<4/2SAztreonam<4SCefazolin<2S Cefepime<2SCeftazidime<1SCeftazidime/Avibactam<4SCeftolozane/Tazobactam<2S Ceftriaxone<1SCefuroxime<4SCiprofloxacin<0.25SErtapenem<0.5SGentamicin<2S Levofloxacin<0.5SMeropenem<1SMeropenem/Vaborbactam<2SNitrofurantoin<32S Piperacillin/Tazobactam<8STetracycline<4STigecycline<2STobramycin<2S Trimethoprim/Sulfamethoxazole<0.5/9.5SAerobic MICKlebsiella pneumoniaeAmikacin <16SAmoxacillin/K Clavulanate<8/4SAmpicillin/Sulbactam=8/4SAztreonam<4SCefazolin <2SCefepime<2SCeftazidime<1SCeftazidime/Avibactam<4SCeftolozane/Tazobactam<2S Ceftriaxone<1SCefuroxime<4SCiprofloxacin<0.25SErtapenem<0.5SGentamicin<2S Levofloxacin<0.5SMeropenem<1SMeropenem/Vaborbactam<2SNitrofurantoin<32S Piperacillin/Tazobactam<8STetracycline<4STigecycline<2STobramycin<2S Trimethoprim/Sulfamethoxazole<0.5/9.5SUrinalysis automated Reviewed date:08/04/2024 08:59:51 AM Interpretation: Performing Lab: Notes/Report: Urine-ColoryellowAppearancecloudySpecific Gravity1.025pH6.0GlucosenegProteinneg Occult Ctdpa78DwewuvklddtaDnpnkqhcfrxa,Semi-Qn0.2Nitrite, UrineposKetonesnegWBC Vwwdztlj641Xcbawoog Blood Count Auto Diff Reviewed date:03/05/2025 03:50:03 PM Interpretation: Performing Lab:, [facility], [address], [place] Notes/Report:White Blood Count10.13.8-11.6 [CFU]/mLNUncorrected WBC10.13.8-11.6 10*3/uLNRed Blood Count4.673.60-5.00 10*6/pXZPrkawfdxyk32.711.8-15.4 g/dLN Kdhvbedgaj04.834.0-46.4 %NMean Corpuscular Befoxd26.780-100 fLNMean Corpuscular Qmjsfgnqfh94.424.7-34.3 pgNMean Corpuscular HGB Conc33.532.0-35.0 g/dLNRed Cell Distribution Width13.711.9-15.3 %NPlatelet Aevsd017547-978 10*3/uLNMean Platelet Ykkuvf90.76.3-10.7 fLNNeutrophils % (Auto)67.6. %Lymphocytes % (Auto)25.0. % Monocytes % (Auto)5.3. %Eosinophils % (Auto)1.3. %Basophils % (Auto)0.8. %NRBC% 0.10-0.5 /100{WBC}NNeutrophils # (Auto)6.81.8-7.7 10*3/uLNLymphocytes # (Auto) 2.51.00-4.8 10*3/uLNMonocytes # (Auto)0.50.0-0.8 10*3/uLNEosinophils # (Auto)0.1 0.0-0.45 10*3/uLNBasophils # (Auto)0.10.0-0.2 10*3/uLNThyroid Stim Hormone w/Rflx Reviewed date:03/05/2025 03:50:03 PM Interpretation: Performing Lab: Notes/Report:Thyroid Stim Hormone w/Rflx1.840.45-5.33 u[iU]/mLNLipid Panel Reviewed date:03/05/2025 03:50:03 PM Interpretation: Performing Lab: Notes/Report:Mnuobsrbppi562792-584 mg/dLN Chol less than 200 mg/dl low risk Chol 201-239 mg/dl borderline risk Chol 240 mg/dl and greater high risk HDL Giyymavsmdu8648-88 mg/dLN HDL CHOL ATP-III CLASSIFICATION Cardiovascular Risk HDL > or equal to 60 mg/dL LOW HDL < 40 mg/dL HIGH Triglyceride w/Cukxpa5152-730 mg/dLN TRIG ATP III CLASSIFICATION TRIG less than 150 mg/dL Normal TRIG 150-199 mg/dL Borderline high TRIG 200-500 mg/dL High TRIG greater than 500 mg/dL Very high Standard traceable to the Center for Disease Conrtrol and Prevention (CDC) test method. LDL Cholesterol,Dpjfbyyuvh048-344 mg/dLN LDL ATP III CLASSIFICATION LDL less than 100 mg/dL Optimal LDL 100-129 mg/dL Near or above optimal LDL 130-159 mg/dL Borderline high LDL 160-189 mg/dL High LDL greater than 189 mg/dL Very high VLDL WNSZDQNLTNF17Cbes/HDL Ratio3.1<5.0Comprehensive Metabolic Panel Reviewed date:03/05/2025 03:50:03 PM Interpretation: Performing Lab:, [facility], [address], [place] Notes/Report:Taybhty67643-787 mg/dLH Random Glucose Reference Range is dependent on time and content of last meal. Glucose of more than 200 mg/dL in a nonstressed, ambulatory subject supports the diagnosis of Diabetes Mellitus. ADA recommended reference range Blood Urea Cpoqhcyb30-89 mg/dLNCreatinine0.580.60-1.20 mg/vEQDougso709313-589 mmol/LNPotassium4.23.5-5.1 mmol/VXBtdcryvk05202-988 mmol/LNCarbon Gdocbrp98.2 21.0-31.0 mmol/LNCalcium9.08.6-10.3 mg/dLNTotal Protein6.66.4-8.9 g/dLNAlbumin Level4.43.5-5.7 g/dLNGlobulin2.2Albumin/Globulin Ratio2.0Bilirubin,Total0.20.3- 1.0 mg/dLLAspartate Amino Gywlpfdmnla5918-30 U/LLAlanine Dokyzuwyahhniyci17-74 U/LNAlkaline Okgnywspbqa72301-234 U/LNEstimated GFR>60.0Anion Gap9.06.0-15.0N Vitamin B12 Reviewed date:03/05/2025 03:50:03 PM Interpretation: Performing Lab: Notes/Report:Vitamin P26511295-040 pg/mLNFollicle Stimulating Hormone Reviewed date:12/26/2024 10:42:08 AM Interpretation: Performing Lab: Notes/Report:Follicle Stimulating Jcdwnzp36.2 FEMALE NORMALS (PREMENOPAUSE) MID-FOLLICULAR PHASE: 3.9-8.8 mIU/mL MID-CYCLE PEAK: 4.5-22.5 mIU/mL MID-LUTEAL PHASE: 1.8-5.1 mIU/mL FEMALE NORMALS (POSTMENOPAUSE): 16.7-113.6 mIU/mL MALE NORMALS: 1.3-19.3 mIU/mL Vitamin B12 Reviewed date:12/26/2024 10:42:08 AM Interpretation: Performing Lab:, [facility], [address] [place] [address] Notes/Report:Vitamin O27988579-009 pg/mLNMM post biopsy RT w/CAD Reviewed date:10/03/2024 01:53:56 PM Interpretation: Performing Lab: Notes/Report: [facility] Main [address] [address] Ultrasound Report Signed with Laura Patient: Ziggy Joy MR#: [id number] : 1975 Acct:[id number] Age/Sex: 48 / F ADM Date: 09/29/24 Loc: [facility] Room: Type: [facility] Attending Dr: Rufina Rubio NATURAL RESOURCES MANAGER-C Ordering Provider: Rufina Rubio Date of Service: 09/29/24 US/US biopsy RT 1st lesion guid: R92.8 ([id number]) MM/MM post biopsy RT w/CAD: CLIP PLACEMENT Copies to: Rufina Chewson ADDENDUM 1 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 No malignancy is identified. This is believed to be concordant. Follow-up ultrasound in 6 months could be cons idered. Impression dictated by: Dara Hardy M.D.10/03/2024 1:26 PM Dictation Location: [place] [address] Addendum Dictated By: MD Dara Hardy Addendum [...] OV> 09/29/24 1150 Reason For Referral Reason *SCHEDULED 11/14 kelly ateral ovarian cysts with L adnexal pain, would like to discuss with NUTRITION INSTRUCTOR *FAXED 11/09 - FAXED REFERRAL UPDATE 11/16 Diagnosis 1 Unspecified ovarian cyst, right side (N83.201) Referral Organization [facility] Referring Provider First Name Pepe Referring Provider Last Name Charlie Referring Provider Speciality [facility] ctice Referred Provider Francisco J Philippe Referred Provider Specialty OB - Gynecol ogy Referral Priority Routine Medications Medication SIG (Take, Route, Frequency, Duration) Notes Start Date End Date Status Estradiol 0.025 MG/24HR Patc h Twice Weekly 1 patch to skin changing every 72 hours Transdermal every 3 days; Duration: 30 days 03/28/2025Not-Taking/PRNSymbicort 160-4.5 MCG/ACT Aerosol2 puffs Inhalation Twice per day; Duration: 30 days/5ActiveVitamin B12 1000 MCG Tablet1 tablet Orally Once a day; Duration: 90 days/5Active FLUoxetine HCl 40 MG Capsuletake 1 capsule by mouth once daily Orally Once a day; Duration: 90 daysActiveMontelukast Sodium 10 MG TabletTAKE 1 TABLET BY MOUTH DAILY; Duration: 90ActiveFluticasone Propionate 50 MCG/ACT Suspension1 spray in each nostril Nasally Once a day; Duration: 30 days5Active LORazepam 0.5 MG Tablet 1 tablet Orally Once a day; Duration: 30 days As needed 5ActiveAlbuterol Sulfate HFA 108 (90 Base) MCG/ACT Aerosol Solution2 puff as needed Inhalation every 4 hrs; Duration: 30 daysActiverOPINIRole HCl 1 MG TabletTAKE ONE TABLET BY MOUTH ONE TO THREE HOURS BEFORE BEDTIME; Duration: 90 daysActiveOLANZapine 15 MG TabletTAKE 1 TABLET BY MOUTH DAILY; Duration: 90 daysActiveOmeprazole 40 MG Capsule Delayed Release1 capsule 30 minutes before morning meal Orally Once a day; Duration: 30 day(s)ActiveAlbuterol Sulfate (2.5 MG/3ML) 0.083% Nebulization Solution 3ml Inhalation four times a day (qid) as needed (prn); Duration: 30 days As needed Active Social History Tobacco Use: Social History Observation Description Date Details (start date - stop date) Current Smoker NA - NA Sex Assigned At : Social History Observation Description Sex Assigned At Female Social History Social DeterminantsSocial InfoQuestionAnswerNotesPRAPAREDate Completed/Updated: 08/31/2022What is your current housing situation?I have housingAre you worried about losing your housing?NoWhat is the highest level of school that you have finished?Less than a high school degreeWhat is your current work situation? Unemployed and seeking workIn the past year, have you or any family members you live with been unable to get any of the following when it was really needed? Check all that applyI do not have problems meeting my needsHas lack of transportation kept you from medical appointments, meetings, work or from getting things needed for daily living?NoHow often do you see or talk to people that you care about and feel close to? (For example: talkingto friends on the phone, visiting friends or family, going to yarsani or club meetings)More than 5 times a weekHow stressed are you? Stress is when someone feels tense, nervous, anxious, or cant sleep at night because their mind is troubledA little bitIn the past year have you spent more than 2 nights in a row in a care home, group home, jail center, orjuvenile correctional facility?NoAre you a refugee?NoWhat country are you from?[place]Do you feel physically and emotionally safe where you currently live?YesIn the past year, have you been afraid of your partner or ex-partner?NoPRAPARE Score:7GeneralSocial InfoQuestionAnswerNotes Transition of Care:ER/UC/hospital since last office visit?NoSpecialist seen since last office visit?NoSubstance abuse/mental health issues of patient/family Patient -DeniesAbility to understand healthcare/treatmentPatient:FairSexual Hx: Had sex in the last 12 months (vaginal, oral, or anal)?Yes? withMen onlyHave you ever had an STD?Yes? Herpes?YesSocial/Support Concerns:Patient:NoBehaviors affecting healthPoor/Risky Behaviors:Denies-Communication Barrier:Language Barrier?:NoFood Insecurity ScreeningSocial InfoQuestionAnswerNotesFood Insecurity ScreeningWithin the last 12 months, have you been worried about your food running out before you received money to buy more?NoWithin the last 12 months, did the food you buy not last, and you didn't have money to buy more?No Within the last 12 months, have you had any difficulty affording to eat balanced meals including all food groups (fruits, vegetables, protein, and whole grains)?NoDrug/Alcohol:Social InfoQuestionAnswerNotesAUDIT-C (Standard)Did you have a drink containing alcohol in the past year?ItMbdxmo3FjzjxcpefjnyfmCcnbrhfz Tobacco Use:Social InfoQuestionAnswerNotesTobacco Control (Standard)Tobacco use: Current smoker? How often do you smoke cigarettes?Every day? How many cigarettes a day do you smoke?11-20Section Notes: 1 PPD FOR 20+ YEARS 01-05-12: [...] DRUG USE 1 PPD FOR 20+ YEARS Problems Problem Type SNOMED Code ICD Code Onset Dates Problem Status W/U Status Risk Notes Problem Vitamin B>12< defici ency anaemia (74147203) Vitamin B12 deficiency anemia, unspecified (D51.9) ActiveconfirmedProblemTobacco user (506267323)Nicotine dependence, unspecified, uncomplicated (F17.200)ActiveconfirmedProblemGeneralized anxiety disorder (23456647)Generalized anxiety disorder (F41.1)ActiveconfirmedProblemMenopause (466985099)Menopausal and female climacteric states (N95.1)Activeconfirmed ProblemCough (37394969)Cough (R05)ActiveconfirmedProblemDysuria (30510371) Dysuria (R30.0)ActiveconfirmedProblemUpper respiratory infection (05222067)URI (upper respiratory infection) (J06.9)ActiveconfirmedProblemAnxiety (32070544) Anxiety (F41.9)ActiveconfirmedProblemCOPD - Chronic obstructive pulmonary disease (41814053)COPD (chronic obstructive pulmonary disease) (J44.9)Active confirmedProblemBipolar disorder (00594785)Bipolar disorder (F31.9)Active confirmedProblemRestless legs syndrome (27812361)Restless leg syndrome (G25.81) ActiveconfirmedProblemPanic attack (601031790)Panic attack (F41.0)Active confirmedProblemFunctional dyspepsia (0295169)Acid indigestion (K30)Active confirmedProblemDerangement of right shoulder joint (disorder) (33849872871973450)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)Active confirmed Vital Signs Heart Rate 72 /min 05/03/2025 Iwkpzktkwma91.0 degrees Rnaydxdbbw79/16/2025Respiratory Rate20 /min05/03/2025 Xpywzcfw16 %05/03/2025lood pressure bgfqdtgre91 mm Hg05/03/20258075Ixvlas89 in 05/03/2025lood pressure yfadddzs810 mm Hg05/03/20256303Beblyx471.4 lbs1MI 23.66 kg/m205/03/2025 Encounters Encounter Location Date Provider Diagnosis [facility] [address] [address] 06/15/2024 Rufina Ramiro Bipolar disorder F31.9 ; Restless leg syndrome G25.81 and Nicotine dependence, unspecified, uncomplicated F17.200 [facility] [address] [place] [address] 06/21/2024 Rufina Ramiro [address] [address] [place] [address] 08/06/2024[facility] [address] [address]/06/2025[facility] [place] [address]/14/2025[facility] [place] [address] 09/22/2024[facility].8 and Mass of upper outer quadrant of right breast N63.11[place] [id number] [address]/14/2025[facility] [place] [address]/[facility] [place] [address]/[facility] [place] [address]/[facility] [place] [address] 01/17/2025aroHackettstown Medical CenterCOPD (chronic obstructive pulmonary disease) J44.9 and Bipolar disorder F31.9[facility] [place] [address]/[facility] [place] [address]/aroHackettstown Medical CenterCOPD (chronic obstructive pulmonary disease) J44.9[facility] [place] [address] 11/02/2024[facility] [place] [address]/[facility] [place] [address]/[facility] [place] [address]/04/2025JeSoutheast Arizona Medical CenterNicotine dependence, unspecified, uncomplicated F17.200 ; Bipolar disorder F31.9 ; Vitamin B deficiency E53.9 ; COPD (chronic obstructive pulmonary disease) J44.9 ; Breast lump in female N63.0 ; Recurrent UTI N39.0 ; Breast cancer screening by mammogram Z12.31 ; Pelvic pain in female R10.2 ; Anxiety F41.9 and Vitamin B 12 deficiency E53.8[facility] 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 [facility] [place] [address]/Jennifer RichardsonNicotine dependence, unspecified, uncomplicated F17.200 ; Anxiety F41.9 and Vitamin B 12 kabsnfylynP17.8[facility] [place] [address]/aron MartinezCOPD (chronic obstructive pulmonary disease) J44.9 ; Anxiety F41.9 ; Bipolar disorder F31.9 ; Acid indigestion K30 ; Unspecified ovarian cyst, right side N83.201 and Unspecified ovarian cyst, left side N83.202[facility] [place] [address]/ Pepe YgerrnpsB36 deficiency E53.8 ; Pain, joint, shoulder, left M25.512 and Menopausal and female climacteric states N95.1FWestern [facility] [place] [address]/aron MartinezMenopausal and female climacteric states N95.1 ; Vitamin B12 deficiency anemia, unspecified D51.9 ;Pain, joint, shoulder, left M25.512 ; Bipolar disorder F31.9 ; Acid indigestion K30 ; COPD (chronicobstructive pulmonary disease) J44.9 ; Fluid level behind tympanic membrane of right ear H65.91 andAnxiety F41.9[facility] [place] [address]/aron MartinezMenopausal and female climacteric states N95.1 and Vitamin B 12 deficiency E53.8[facility] [place] [address]/05/2024Jennifer RichardsonNicotine dependence, unspecified, uncomplicated F17.200 ; Bipolar disorder F31.9 ; COPD (chronic obs tructive pulmonary disease) J44.9 ; Acid indigestion K30 and Vitamin B 12 deficiency E53.8[facility] [place] [address] 08/04/2024Jennifer RichardsonUrinary frequency R35.0 ; Dysuria R30.0 ; Nicotine dependence, unspecified, uncomplicated F17.200 ;Vitamin B 12 deficiency E53.8 ; Fluid level behind tympanic membrane of right ear H65.91 and Vitamin B deficiency E53.9[facility] [place] [address] 11/23/2024Margiana PetersVitamin B deficiency E53.9 and Vitamin B 12 deficiency E53.8[facility] [place] [address]/Mary PetersVitamin B deficiency E53.9 and Vitamin B 12 deficiency E53.8[facility] [place] [address]/Mary PetersVitamin B deficiency E53.9 and Vitamin B 12 deficiency E53.8[facility] [place] [address]/4Alexa zzzMurrayVitamin B deficiency E53.9 Assessments Encounter Date Diagnosis (ICD Code) Assessment Notes Treatment Notes Treatment Clinical Notes Section Notes 05/18/2024 Vitamin B deficiency (ICD-10 - E 53.9) 06/15/2024ipolar disorder (ICD-10 - F31.9)06/15/2024estless leg syndrome (ICD- 10 - G25.81)06/21/2024Nicotine dependence, unspecified, uncomplicated (ICD-10 - F17.200)Quitting Tobacco: Care Instructions material was nlgfccvda02/11/2024 Bipolar disorder (ICD-10 - F31.9)08/04/2024Dysuria (ICD-10 - R30.0)08/04/2024 Urinary frequency (ICD-10 - R35.0)U/A consistent for UTI, will send for culture. Start antibiotic, pt advised to take as prescribed and until gone. Potential side effects of abx discussed including upset stomach, diarrhea, if symptoms occur, please notify office. Good agusto-hygiene is discussed. Always wipe front to back, void afterintercourse, avoid rectal to vaginal intercourse as this can transfer bacteria, void after intercourse. Increase oral fluids to flush system. Cranberry juice and orange juice are more acidic and goodfor the urinary tract. Avoid irritants such as alcohol, caffeine. If you develop fever, chills, blood in urine, back pain, go to the ER/urgent care.09/18/2024Nicotine dependence, unspecified, uncomplicated (ICD-10 - F17.200)Smoking cessation discussed. Pt verbalized understanding to complication of tobacco use including cardiac and pulmonary disease, as well as stroke. Pt declines interest in this time. 09/18/2024ipolar disorder (ICD-10 - F31.9)Pt reports has been feeling down in her current situation. Pt is waiting to be able to live with mother next month. Does not want to change her medications but does feel med for anxiety would be beneficial.09/22/2024bnormal mammogram (ICD-10 - R92.8)09/22/2024Mass of upper outer quadrant of right breast (ICD-10 - N63.11)10/24/2024Nicotine dependence, unspecified, uncomplicated (ICD-10 - F17.200)Smoking cessation discussed. Pt verbalized understanding to complication of tobacco use including cardiac and pulmonary disease, as well as stroke. Pt declines interest in this time. 10/24/2024nxiety (ICD-10 - F41.9)Anxiety improved. Pt is working on relationship and difficulties in home that were stressing her out. Denies any new concerns.11/08/2024nxiety (ICD-10 - F41.9)Increased situational anxiety related to home life with placement of her mother-in law in an GROUP HOME. Previosuly has done ok WIth small amount of lorazepam. Will refill same at this time. No current threat to self or others.11/08/2024OPD (chronic obstructive pulmonary disease) (ICD-10 - J44.9)Patient with symptoms well-controlled at this time. No side effects from medication. Will continue with current treatment plan. 11/23/2024Vitamin B deficiency (ICD-10 - E53.9)11/28/2024iceps tendinitis of left upper extremity (ICD-10 - M75.22)Patient with biceps tendinitis of the left shoulder. Patient with significant pain. We did discuss shoulder injection corticosteroid today and patient verbally agreed to this. Patient was placed in aseated position and posterior injection site was identified. Iodine was used to clean area. Using a1-1/2 inch needle with no bloody flashback 2 cc of 40 rocio per mL Kenalog and 1 cc of 2% lidocaine with epinephrine were injected into the shoulder joint. Area was cleaned with alcohol and Band-Aid placed. Patient tolerated procedure well. We did discuss RICE therapy and physical therapy going forward.12/22/2024B12 deficiency (ICD-10 - E53.8)Tolerating current injection therapy well. No current symptoms. Will check labs. Further planning pending lab results. Will hold injection until labs obtained.12/22/2024Hot flashes (ICD-10 - R23.2)Patient with recent issues with hot flashes that are worsening. We did discuss checking labs for menopause with FSH. Will also check thyroid at this time.12/25/2024Vitamin B deficiency (ICD-10 - E53.9)01/17/2025OPD (chronic obstructive pulmonary disease) (ICD-10 - J44.9)02/28/2025B12 deficiency (ICD-10 - E53.8) History of B12 deficiency managed with injections. Switching to oral tablet due to difficulty with injections. Plans to monitor B12 levels and adjust treatment if oral therapy is ineffective. - Prescribed oral vitamin B12 tablet. - Ordered B12 level and other labs for monitoring. - Plan to recheck B12 level in 3 months and adjust therapy as needed. 02/28/2025Pain, joint, shoulder, left (ICD-10 - M25.512) Worsening left shoulder pain radiating to neck, especially with movement and at night. Unable to attend physical therapy due to caregiving and transportation barriers. History of prior injection for pain, which did significantly improve symptoms. Patient uses ice and aods-tib-svwhhkq pain medications for relief. - Ordered new script for physical therapy. - Prescribed oral steroid burst. - Advised against repeating injection at this time. 03/28/2025Vitamin B12 deficiency anemia, unspecified (ICD-10 - D51.9) History of vitamin B12 deficiency with prior episodes of numbness and tingling in hands. Currently taking dissolvable B12 tablets as recommended by pharmacy. Patient concerned about recurrence of severe fatigue if B12 shots are stopped. - Continue dissolvable vitamin B12 tablets. 03/28/2025Menopausal and female climacteric states (ICD-10 - N95.1) Persistent fatigue, hot flashes, and brain fog attributed to menopausal symptoms. Symptoms have notimproved with current regimen. Patient is willing to try hormone replacement therapy for relief. Nocontraindication due to prior hysterectomy. - Start low-dose estrogen patch, change every three days. - Obtain urine test prior to initiating hormone therapy. 01/30/2025Vitamin B deficiency (ICD-10 - E53.9)04/04/2025OPD (chronic obstructive pulmonary disease) (ICD-10 - J44.9)05/03/2025Menopausal and female climacteric states (ICD-10 - N95.1) Menopausal symptoms including [...] to administer vitamin B12 injection before surgery. 03/28/2025Pain, joint, shoulder, left (ICD-10 - M25.512) Severe left shoulder pain with limited relief from physical therapy. Physical therapy exacerbated pain, leading to discontinuation. Shoulder is trying to freeze up; pain disrupts sleep and daily activities. X-rays performed; scheduled for orthopedic surgical evaluation. - Refer to orthopedic surgery for evaluation of left shoulder pain. 02/28/2025Menopausal and female climacteric states (ICD-10 - N95.1) Severe hot flashes at night and excessive sweating. Anxiety and mood changes associated with menopause. Elevated FSH level previously noted. Declined Effexor due to prior adverse effects. Interested in trying otzl-fjp-yqwelkj supplements for symptom relief. - Discussed options for symptom management including hormone replacement and supplements, alexandria rootand rhodiola. - Recommended trial of sqwf-lbw-ljltcgk menopause supplements prior to hormone therapy. - Plan to reassess in one month and consider hormone replacement if needed. 01/17/2025ipolar disorder (ICD-10 - F31.9)01/30/2025Vitamin B 12 deficiency (ICD-10 - E53.8)12/22/2024Long term current use of antipsychotic medication (ICD-10 - Z79.899)12/25/2024Vitamin B 12 deficiency (ICD-10 - E53.8)11/08/2024 Bipolar disorder (ICD-10 - F31.9)11/23/2024Vitamin B 12 deficiency (ICD-10 - E53.8)10/24/2024Vitamin B 12 deficiency (ICD-10 - E53.8)Given by MEHUL. Recommended to get her labs done.09/18/2024Vitamin B deficiency (ICD-10 - E53.9)Vitamin B12 inj. given today by MEHUL.08/04/2024Nicotine dependence, unspecified, uncomplicated (ICD-10 - F17.200)Smoking cessation discussed. Pt verbalized understanding to complication of tobacco use including cardiac and pulmonary disease, as well as stroke. Pt declines interest in this time.4COPD (chronic obstructive pulmonary disease) (ICD-10 - J44.9)COPD stable, continue medications as prescribed. Smoking cessation is encouraged. CP/pressure/sob, c [place]ugh [place], [address]/11/2023Nicotine dependence, unspecified, uncomplicated (ICD-10 - F17.200)08/04/2024Vitamin B 12 deficiency (ICD-10 - E53.8)4Acid indigestion (ICD-10 - K30)Reports stable with medication. 5Acid indigestion (ICD-10 - K30)5COPD (chronic obstructive pulmonary disease) (ICD-10 - J44.9)COPD uncontrolled at this time. Will start patient on symbicort daily, discussed risks and side effects of medication. OK to use albuterol PRN for SOB, goal to use less frequently. Follow up if symptoms do not appreciably improve with therapy. Patient verbalized understanding, in agreement with plan.5Bipolar disorder (ICD-10 - F31.9)5Breast lump in female (ICD-10 - N63.0)Will get US and mammogram. Does have palpable lump noted.11/08/2024Unspecified ovarian cyst, right side (ICD-10 - N83.201)Pt with small bilateral hemorrhagic cysts on recent pelvic US. she has had persistent adnexal pain,this epsiode for about 2 weeks. Will refer to [facility]UTRITION INSTRUCTOR for eval and sauhdpuipn05/17/2025Acid indigestion (ICD-10 - K30)08/04/2024Fluid level behind tympanic membrane of right ear (ICD-10 - H65.91)Can use claritin she has, continue with the singulair. Will send in flonase.08/04/2024Vitamin B deficiency (ICD-10 - E53.9)06/21/2024Vitamin B 12 deficiency (ICD-10 - E53.8) 03/28/2025OPD (chronic obstructive pulmonary disease) (ICD-10 - J44.9) 11/08/2024Unspecified ovarian cyst, left side (ICD-10 - N83.202)09/18/2024 Recurrent UTI (ICD-10 - N39.0) Concern for UTI based on symptoms, will send for culture and initiate treatment. Good agusto-hygiene is discussed. Always wipe front to back, void after intercourse, avoid rectal to vaginal intercourseas this can transfer bacteria, void after intercourse. Increase oral fluids to flush system. Cranberry juice and orange juice are more acidic and good for the urinary tract. Avoid irritants such as alcohol, caffeine. If you develop fever, chills, blood in urine, back pain, go to the ER/urgent care. Will get us of pelvis and bladder. 09/18/2024reast cancer screening by mammogram (ICD-10 - Z12.31)03/28/2025Fluid level behind tympanic membrane of right ear (ICD-10 - H65.91)09/18/2024Pelvic pain in female (ICD-10 - R10.2)03/28/2025nxiety (ICD-10 - F41.9)09/18/2024 Anxiety (ICD-10 - F41.9)You are being prescribed a control substance. These can be habit forming and will be prescribed andrefilled based on assessment of need at regular visits. Do not mix these medications with alcohol, do not share these medications, do not sell these medication, do not drive or operate heavy machinery while taking these medications. [place] report was reviewed. No misuse or abuse is noted. Controlledmedication contract is on file and will be updated yearly. Any misuse or abnormal Toxassure will result in termination of agreement and subsequent refills. Pt verbalizes understanding.09/18/2024Vitamin B 12 deficiency (ICD-10 - E53.8)06/21/2024OtherBody Mass Index: Care Instructions material was nouyafate20/15/2025OtherBody Mass Index: Care Instructions material was published Plan Of Treatment Pending Test Test Name Order Date urine 03/28/2025 Next Appt Details Provider Name:Pepekamilla medellin, 05/17/2025 08:15:00 AM, [address] [place], [address], Provider Name:Kylie Portillo, 06/04/2025 09:00:00 AM, [address] [place], [address], Insurance Providers Payer Name Payer Address Payer Phone Subscriber Number Group Number Insured Name Patient Relationship to Insured Coverage Start Date Coverage End Date [facility] [address] [place] [address] [id number] STEIBLE, BRANDBradenlf - patient is the insuredz[employer]OURCE-termed 08/11/22[address] [place] [phone], BRANDISelf - patient is the [id number] [facility] after [employer] 08/11/22 [address] [place] [id number], ZIGGY Self - patient is the [id number] [place] MedicaidPO [address] [place] [id number], BRANDISelf - patient is the uwcuavm0708/12/2022[address] [facility] CareSourcePO [address] [place] [address] [id number], BRANDBradenlf - patient is the insured 08/12/2022nthem Medical [place] MedicaidPO [address] [place] [address] [phone], BRANDISelf - patient is the fwssfqo2008/12/2022 02/28/2025[facility] [address] [place] [phone] [id number], Dedelf - patient is the kgbzcgt7908/12/2022 02/28/2025[facility] [address] [place] [address] [id number], Dedelf - patient is the wvabfkc6101/09/2023 Medications Administered Medication Instructions Date of Administration Dosage Notes B-12 injection .0 mLB-12 klkcmeklr85/17/20151 jX6596 MCG/1 ML PT TOLERATED WELLB-12 vccallhsm07/16/20231 mLB-12 /23/20231 mLB-12 wxziujvgt30/30/20231 mL B-12 ejdtotwzh58/06/20231 bZRjnprqlzxuzuux79/22/20251 rBYqcruzvehvyxmk99/23/2025 1 mLB-12 axwglrzfn78/11/20241 mLB-12 /24/20251 mLB-12 injection mLB-12 ircnxidtc57/15/20251 mLVit. B12 injection administered in left deltoid w/out incident;ana. same well.B-12 gfedbxumk96/15/20251 mLB-12 taccghogv73/16/20251 mLB-12 /04/99974591 ugB-12 bwtepveuv06/13/2023 1000 ugB-12 /16/20241.0 mLB-12 umengpnfc48/16/20241 mLB-12 injection .0 mLB-12 /07/20241 mLB-12 cyjwfmwez64/20/20231 mLB-12 zkaambaxb34/08/20231 mLB-12 jtpslqivy88/07/20231 mLB-12 jgvoapzlq40/07/20231 mL B-12 ihftxvyjr55/07/55228877 ugB-12 plbihhyud88/05/20231.0 mL Medical (General) History Medical History History ICD Code Migraines DepressionAnxietyCOPDTobacco UseHerpes Simplex Type IIRight Ovarian CystRight Kidney CystChronic Shoulder KwxeRKKS14 DeficiencyParonychiaNail Fungal Infection Surgical History Surgery Date(Month/Year) Ovarian cyst 1998 Tubal Ligation 1999 Esophagogastroduodenoscopy (EGD) 4 Colonoscopy 05/25/14 Total Abdominal Hysterectomy Bicep Repair/ Shoulder Ukgolz3049Aaba Toenail Gjjahlp47/2024Right Shoulder Tendon Qhxrfi76/2024Hospitalization History Reason Date(Month/Year) see surgical 1S Psych09/2384Vnnrnkrutxjk58/14/14[facility] ([facility]2010
--- OUTSIDE RECORDS SUMMARY | 2025-05-03 19:13 | XMS_ITS | Clinical Summary ---
Author Organization [facility] Address [address] [place] [address] Care Team Providers Care Casing Trimmer Name Role Phone Unallocated, [facility] Provider Primary Care Provi nitesh Rufina Rubio SUBSTATION WIREMAN Unavailable [phone] Allergies Active AllergyReactionsCriticalityNoted ZezgMoyubcmrKwafduk79/13/2023 Other Reaction(s): rash, Unknown, vomiting Drpjycqxdxg96/13/2023 Other Reaction(s): anaphylaxis, jaw locked sideways, Unknown Aiwyixvlegg70/13/2023 Other Reaction(s): rash, vomiting, Unknown, vomiting Bjpykjkbd53/15/2023 Other Reaction(s): Unknown Ketorolac Rsbkdhollcdg68/13/2023 Other Reaction(s): hives, migraines Magnesium NakaidlfsfMujnu67/15/2023Magnesium Lklwhsa0804/23/2023 Other Reaction(s): Unknown, vomiting Jpwqbutbcmyayu11/13/2023 Other Reaction(s): rash Hkwioxqhfwspu36/13/2023 Other Reaction(s): rash, vomiting DgfsmeqxFgkhm74/13/2023 Other Reaction(s): rash, Unknown, vomiting JakrhdVlyoq45/13/2023 Other Reaction(s): rash, Unknown, vomiting Zutatxvokmx88/15/2023 Other Reaction(s): Unknown Sulfa Oirrbbuzbdc81/15/2023 Other Reaction(s): Unknown Sulfamethoxazole-Ckmnhuyvektl41/15/2023 Other Reaction(s): vomiting Vdwawh91/12/20201212Usbqkcplbqai41/11/2023 Other Reaction(s): Hives Medications MedicationSigDispense QuantityRefillsLast FilledStart DateEnd DateStatus fluticasone-salmeterol (Advair HFA) 45-21 MCG/ACT inhaler Active albuterol (2.5 MG/3ML) 0.083% nebulizer solution 04/23/2023ctive ciclopirox (Penlac) 8 % solution 03/16/2023ctive cyanocobalamin (Vitamin B-12) 1000 MCG tablet 02/03/2023ctive FLUoxetine (PROzac) 40 MG capsule 05/18/2023ctive famotidine (Pepcid) 20 MG tablet Take 20 mg by mouth Daily10/04/2022ctive folic acid (Folvite) 1 MG tablet 04/12/2023ctive tiZANidine (Zanaflex) 2 MG tablet 2022ctive montelukast (Singulair) 10 MG tablet 1 (one) time each day at the same time09/28/2023ctive omeprazole (PriLOSEC) [address] capsule 1 (one) time each day at the same timeActive albuterol HFA 90 mcg/act inhaler 01/22/2024ctive OLANZapine (ZyPREXA) 15 MG tablet 01/22/2024ctive rOPINIRole (Requip) 1 MG tablet 01/21/2024ctive potassium chloride ER (Micro-K) 10 MEQ ER capsule 10/21/2023ctive diazePAM (Valium) 5 MG tablet Indications:Muscle SpasmTake 1 tablet (5 mg) by mouth as needed at bedtime for muscle spasms for up to 20 days 20 tablet 06/22/2024ctive fluticasone (Flonase) 50 MCG/ACT nasal spray 1 (one) time each day at the same time08/04/2024tive estradiol (Vivelle-DOT) 0.025 MG/24HR Place 1 patch on the skin 2 (two) times a week03/28/2025tive LORazepam (Ativan) 0.5 MG tablet 1 (one) time each day at the same time03/28/2025tive Suzetrigine (Journavx) 50 MG tablet Indications:Left shoulder pain, unspecified chronicityTake 50 mg by mouth every 12 (twelve) hours for 14 days For the first dose, take 2 tablets (100 mg)on an empty stomach at least 1 hour before or 2 hours after food. Starting 12 hours after the initial dose, take 1 tablet (50 mg) every 12 hours with or without food. 30 tablet Expired Active Problems No known active problems Encounters DateTypeDepartmentCare DbigFtorslhmxqx22/06/2025 9:00 AM EDTOffice Visit [facility] [address] [place] [id number] Michael Torres DO Left shoulder pain, unspecified jtrtflyxwg76/06/2025amboo flowsheet [facility] [address] [place] [address] Michael Torres DO 04/16/20253597Arbthq85/29/2025 3:45 PM EDTAncillary Procedure [facility] [address] [place] [phone] Left shoulder pain, unspecified chronicity; Adhesive capsulitis of left gtspkavn78/29/0666Vkmltd40/28/6576Quufzm03/22/2025 9:15 AM EDTOffice Visit [facility] [address] [place] [phone] Michael Torres DO Left shoulder pain, unspecified chronicity (Primary Dx)04/02/2025 8:00 AM EDT Ancillary Procedure [facility] [address] [facility] [facility] [place] [phone] 04/02/20252283Ptdlqj50/21/2025Travelfrom Last 3 Months Family History Medical HistoryRelationNameCommentsCervical cancerMotherHeart diseasePaternal GrandfatherFredCancerPaternal GrandmotherMozellDiabetesPaternal Grandmother MozellRelationNameStatusCommentsMotherPaternal GrandfatherFredPaternal GrandmotherMozell Social History Tobacco UseTypesPacks/DayYears UsedDateSmoking Tobacco: Every DayCigarettes0.5 30.8Started: 07/12/1994Smokeless Tobacco: Never Tobacco Cessation:Ready to Q uit: Not Asked; Counseling Given: Not Answered Comments:Smokes 6-10 cigs/day. Alcohol UseStandard Drinks/WeekCommentsNot Currently0 (1 standard drink = 0.6 oz pure alcohol)caffeine intake: 2-3 cups per day.CommentsUnknownSex and Gender InformationValueDate RecordedSex Assigned at EwhcvNjozkh29/14/2023 10:37 AM ESTLegal BntTpmztr52/15/2023 6:43 PM EDTGender VboppgleBedzkh99/14/2023 10:37 AM ESTSexual EthathhxtduRsrxvlau13/14/2023 10:37 AM EST Last Filed Vital Signs Vital SignReadingTime TakenCommentsBlood Pressure--Pulse--Nfkekxccnvs76.3 ??C (97.4 ??F)05/04/2024 1:28 PM EDTRespiratory Rate--Oxygen Saturation--Inhaled Oxygen Concentration--Bqlycc05.6 kg (127 lb)04/16/2025 9:21 AM ZWAHiavgn677.5 cm (5' 2 )04/16/2025 9:21 AM EDTBody Mass Index23.231 9:21 AM EDT Plan of Treatment DateTypeDepartmentCare Team (Latest Contact Info)Mgublvrooen38/13/2025 9:30 AM ESTOffice Visit [facility] [address] [place] [address] Michael Torres, [address] [place] [address] Health MaintenanceDue DateLast DoneCommentsCT Zttxktydxyaq21/03/1978Colonoscopy 1977Colorectal Cancer Ekcjhhiyw99/03/1978FIT-DNA1977FIT1977 FOBT1977Medicare Annual Wellness (AWV)10/12/19778251Jzkbbkivlsqug32/03/1978Pap Smear1998Cervical Cancer Zmdjkltwr47/03/2008HPV/Azgauz0810/13/2007Mammogram 2017Influenza Vaccine (#1)2025 Procedures Procedure NamePriorityDate/TimeAssociated DiagnosisCommentsMR SHOULDER LEFT WO IV CRFDHJXTUlprgyb05/29/2025 4:22 PM EDT Left shoulder pain, unspecified chronicity Adhesive capsulitis of left shoulder XR SHOULDER 2+ VIEWS FWPBWgzbzga73/22/2025 7:44 AM EDT Left shoulder pain, unspecified chronicity from Last 3 Months Results * MR shoulder left wo IV contrast (04/09/2025 4:22 PM EDT)Anatomical Region LateralityModalityUpper Extremities, ShoulderLeftMagnetic ResonanceSpecimen (Source)Anatomical Location / LateralityCollection Method / VolumeCollection TimeReceived Time04/10/2025 10:29 AM EDT Impressions 04/10/2025 10:33 AM EDT Mild supraspinatus tendinosis. ELECTRONICALLY SIGNED BY: Terrell Laureano DO Narrative 04/10/2025 10:33 AM EDT EXAM: MR SHOULDER LEFT WO IV CONTRAST HISTORY: Shoulder pain and limited range of motion. Left frozen shoulder. TECHNIQUE: Multiplanar multisequence MRI of the ??shoulder was performed Without contrast. COMPARISON: Shoulder radiograph [...] No well-defined or measurable cartilage defect. No ??glenohumeral joint effusion . Procedure Note Terrell Laureano DO - 04/10/2025 EXAM: MR SHOULDER LEFT WO IV CONTRAST HISTORY: Shoulder pain and limited range of motion. Left frozenshoulder. TECHNIQUE: Multiplanar multisequence MRI of the shoulder was performedWithout contrast. COMPARISON: Shoulder radiograph April 02, 2025 FINDINGS: Mild degenerative changes of the acromioclavicular joint with tinyundersurface ossified formation. The acromion is curved. Coracoclavicularligament intact. No subacromial/subdeltoid bursal fluid. Mild supraspinatus tendinosis. Infraspinatus, subscapularis, and teresminor tendons are intact. No atrophy or fatty infiltration of the rotatorcuff musculature. The intra-articular and extra-articular long head biceps tendon is intact.The biceps tendon resides within the bicipital groove. No labral tear identified. No well-defined or measurable cartilagedefect. No glenohumeral joint effusion . IMPRESSION: Mild supraspinatus tendinosis. ELECTRONICALLY SIGNED BY: Terrell Laureano DO Authorizing ProviderResult TypeResult Shandra Torres DOI MRI PROCEDURES Final Result * XR shoulder 2+ views left (04/02/2025 7:44 AM EDT)Anatomical RegionLaterality ModalityUpper Extremities, ShoulderLeftRadiographic ImagingSpecimen (Source) Anatomical Location / LateralityCollection Method / VolumeCollection Time Received Time Narrative 04/02/2025 6:58 PM EDT Imaging Result: - X-ray of the left shoulder (Grashey, Zanca, and axillary views): 04/02/2025, saved to permanent medical record. ??X-ray of the left shoulder (AP, internal and external rotation views): 03/05/2025, ??Glenohumeral joint spaces preserved. Acromiohumeral interval within normal limits. Moderate arthritic changes at the AC joint, type II acromion. Visualized lung huynh are clear. Authorizing ProviderResult TypeResult Shandra Torres DOI XR PROCEDURES Final Result from Last 3 Months Insurance Care Teams Team MemberRelationshipSpecialtyStart DateEnd Date Unallocated, [facility] MD Anju [address] [place] [address] PCP - Uqesivy69/15/23 Rufina Rubio NP [address] [place] [address] Referring PhysicianNurse Practitioner01/06/24
--- NOTE | 2025-05-03 19:25 | ED.GENADUL1 ---
HPI HPI - General Adult General Chief complaint: Headache Stated complaint: Headache Time Seen by Provider: 05/03/25 19:10 Source: patient Mode of arrival: walk-in Limitations: no limitations History of Present Illness HPI narrative: This 49-year-old female with a history of migraine headaches presents for evaluation of a headache for the past 3 days. It is global in nature and associated with nausea, visual changes with colors and squiggly lines that come and go and episodes of vomiting. The patient was recently started on an estrogen patch. She was seen by her doctor earlier today and told to take ibuprofen and decrease the estrogen patch. She denies any thunderclap presentation of the headache. She has no neck pain or stiffness. She has not had a fever. She does not have any focal neurologic weakness numbness or tingling. She has not had any abdominal pain or back pain. She states she has been using ibuprofen without relief. She states she is allergic to Toradol and every time she gets that she vomits and breaks out in hives. Related Data Home Medications ?Medication ?Instructions ?Recorded ?Confirmed albuterol sulfate 2.5 mg/3 mL 2.5 mg inhalation Q6H PRN 06/05/23 03/05/25 (0.083 %) solution for nebulization shortness of breath or wheezing albuterol sulfate 90 mcg/actuation 2 puff inhalation Q6H PRN 07/21/23 03/05/25 aerosol inhaler shortness of breath or wheezing fluoxetine 40 mg capsule 40 mg PO QDAY 07/21/23 05/03/25 olanzapine 10 mg tablet 10 mg PO QDAY 07/21/23 05/03/25 ropinirole 0.5 mg tablet 1 mg PO .qhs 07/21/23 05/03/25 budesonide-formoterol HFA 80 2 inh inhalation BID 12/10/24 03/05/25 mcg-4.5 mcg/actuation aerosol inhaler (Breyna) prednisone 20 mg tablet 20 mg PO DAILY 03/05/25 05/03/25 estradiol 0.025 mg/24 hr 05/03/25 semiweekly transdermal patch Previous Rx's ?Medication ?Instructions ?Recorded tizanidine 2 mg capsule (Zanaflex) 2 mg PO Q8H PRN muscle spasm #12 12/20/23 caps hydrocodone 5 mg-acetaminophen 325 1 tab PO Q8H PRN pain #10 tabs 03/05/25 mg tablet oxycodone-acetaminophen 5 mg-325 1 tab PO Q8H PRN pain #10 tabs 03/06/25 mg tablet Allergies Allergy/AdvReac Type Severity Reaction Status Date / Time hydroxyzine (From Vistaril) Allergy Severe Rash Verified 03/05/25 18:09 ketorolac (From Toradol) Allergy Severe Rash Verified 03/05/25 18:09 magnesium sulfate Allergy Severe Rash Verified 03/05/25 18:09 naproxen (From Anaprox) Allergy Severe Rash Verified 03/05/25 18:09 aspirin AdvReac Severe Vomiting Verified 03/05/25 18:09 haloperidol (From Haldol) AdvReac Severe lock jaw Verified 03/05/25 18:09 Opioid HPI Opioid Management Most Recent Opioid Data: Last Pain Scale 9 03/05/25, 20:05 Review of Systems ROS Status of ROS 10 or more systems reviewed and unremarkable except as noted in history and below PFSH PFSH Social History Smoking status: Current every day smoker Little interest or pleasure in doing things: not at all Feeling down, depressed, or hopeless: not at all Exam Narrative Exam Narrative: Vital signs and Nursing Notes reviewed: Patient is afebrile with normal pulse, blood pressure is elevated at 154/78, she is not hypoxic with pulse ox of 98% on room air General: Awake, alert, oriented, no acute distress, lying comfortably on the stretcher-ECS 15 HEENT: Normocephalic atraumatic, mucous membranes are moist and pink, eyes are clear, normal conjunctiva, vision is grossly intact, mild photophobia appreciated, patient is edentulous Neck: Supple, no meningeal signs Chest: Lungs are clear to auscultation with good air entry, there is no wheezing rhonchi or rales appreciated no accessory muscle use, patient is speaking in complete sentences-no chest wall tenderness to palpation CVS: Regular rate and rhythm S1-S2, no murmurs rubs or gallops, pulses are brisk and equal bilaterally ABD: Soft, nondistended, nontender, no rebound guarding or rigidity, bowel sounds are normal, no pulsatile masses appreciated Extremities: Moving all extremities, no lower extremity tenderness or swelling noted, negative Homans' sign, pulses are brisk and equal bilaterally Skin: Normal in appearance without rash,pallor, petechiae or purpura Neuro: No focal deficits; speech is clear, dust sampler strength is intact, upper and lower extremity strength and sensation is intact, negative pronator drift, patient is ambulatory with a steady gait Constitutional Vital Signs, click to edit/add: Last Vital Signs Temp 98.2 F 05/03/25 19:08 Pulse 83 05/03/25 19:08 Resp 18 05/03/25 19:08 BP 154/78 H 05/03/25 19:08 Pulse Ox 98 05/03/25 19:08 Course Vital Signs Vital signs: Vital Signs Temperature 98.2 F 05/03/25 19:08 Pulse Rate 83 05/03/25 19:08 Respiratory Rate 18 05/03/25 19:08 Blood Pressure 154/78 H 05/03/25 19:08 Pulse Oximetry 98 05/03/25 19:08 Temperature 98.2 F 05/03/25 19:08 Pulse Rate 83 05/03/25 19:08 Respiratory Rate 18 05/03/25 19:08 Blood Pressure 154/78 H 05/03/25 19:08 Pulse Oximetry 98 05/03/25 19:08 Medical Decision Making MDM Narrative Medical decision making narrative: This 49-year-old female with a history of migraine headaches presents for migraine headache for the past 3 days with a global headache, nausea, mild photophobia, several episodes of vomiting and scotoma. Her neuroexam is normal. She has not had a fever. This is not the worst headache of her life. There was no thunderclap presentation. An IV was placed and she was medicated with IV fluids, Reglan, Benadryl and Solu-Medrol. On reevaluation she is feeling better. She wishes to be discharged home. She will be discharged home with a prescription for Reglan. She was encouraged to follow-up closely with her family physician as she recently started estrogen patches and her doctor feels that the estrogen patches may have been the etiology of her headache. She is otherwise stable for discharge. Discharge Plan Discharge Chief Complaint: Headache Clinical Impression: Migraine Patient Disposition: Home, Self-Care Time of Disposition Decision: 20:31 Condition: Good Prescriptions / Home Meds: No Action tizanidine [Zanaflex] 2 mg capsule 2 mg PO Q8H PRN (Reason: muscle spasm) Qty: 12 0RF budesonide-formoterol [Breyna] 80-4.5 mcg/actuation HFA aerosol inhaler 2 inh inhalation BID estradiol 0.025 mg/24 hr patch semiweekly albuterol sulfate 2.5 mg /3 mL (0.083 %) solution for nebulization 2.5 mg inhalation Q6H PRN (Reason: shortness of breath or wheezing) fluoxetine 40 mg capsule 40 mg PO QDAY olanzapine 10 mg tablet 10 mg PO QDAY ropinirole 0.5 mg tablet 1 mg PO .qhs albuterol sulfate 90 mcg/actuation HFA aerosol inhaler 2 puff INHALATION Q6H PRN (Reason: shortness of breath or wheezing) prednisone 20 mg tablet 20 mg PO DAILY hydrocodone-acetaminophen 5-325 mg tablet 1 tab PO Q8H PRN (Reason: pain) Qty: 10 0RF oxycodone-acetaminophen 5-325 mg tablet 1 tab PO Q8H PRN (Reason: pain) Qty: 10 0RF Print Language: Kuwaiti Instructions: Migraine Headache (ED) Referrals: [facility] [Primary Care Provider] - 1 week
[2025-05-03] MEDS: DIPHENHYDRAMINE HCL 50 MG/ML VIAL 12.5 MG IVP (19:42)
[2025-05-03] MEDS: METHYLPREDNISOLONE SOD SUCC PF 125 MG/2 ML VIAL IVP (19:43)
[2025-05-03] MEDS: 0.9 % SODIUM CHLORIDE 1,000 ML 1000 ML IV (19:43)
[2025-05-03] MEDS: METOCLOPRAMIDE HCL 10 MG/2 ML VIAL IVP (19:43)
== END 2025-05-03 20:39 | disposition home or self-care (01) ==
PROVIDERS: Emergency Provider Emergency Medicine
DX: G43.909 Migraine, unspecified, not intractable, without status migrainosus (principal); H53.8 Other visual disturbances; R11.2 Nausea with vomiting, unspecified
CPT/HCPCS: 96361; 96374; 96375; 99284; J1200; J2765; J2919